=== PATIENT | female | born 1940 | race Caucasian/White ===

== ENCOUNTER 2021-08-27 14:31 | Inpatient (IN) | payer MEDICARE, SELFPAY ==
--- NOTE | ~2021-08-27 | XR_ITS ---
EXAMINATION: XR CHEST CLINICAL INFORMATION: SOB. Follow-up. COMPARISON: Chest 08/27/2021 TECHNIQUE: Frontal view of the chest was obtained. FINDINGS: The lungs are hypoexpanded with patchy ill-defined opacities in left lung and right midlung and right lower lobe likely infiltrates. Heart size and pulmonary vascularity is normal. No gross bony abnormality seen. XR/XR chest 1V IMPRESSION: Likely bilateral patchy airspace disease, stable compared to previous study 08/27/2021.
--- NOTE | ~2021-08-27 | XR_ITS ---
EXAMINATION: XR CHEST CLINICAL INFORMATION: Shortness of breath COMPARISON: None TECHNIQUE: Frontal portable view of the chest was obtained. 5:00 PM FINDINGS: Patchy multifocal bilateral airspace opacities. Nonspecific but suspect inflammatory infectious etiology. Allowing for the low inspiratory effort there does not appear to be significant central pulmonary vascular congestion. No large pleural effusion. No pneumothorax. Neural stimulator probe over the lower thoracic spine. XR/XR chest 1V IMPRESSION: Multifocal patchy bilateral airspace disease.
[2021-08-27 14:38] VITALS: BP 138/45; PULSE 85; RESP 18; TEMP 37.2; O2SAT 95; BMI 42.0
[2021-08-27 16:20] VITALS: BP 147/50; PULSE 84; RESP 16; TEMP 36.8; O2SAT 93
--- NOTE | 2021-08-27 16:41 | ED_ITS ---
HPI - SOB/Dyspnea General Chief Complaint: Dyspnea Stated Complaint: diff breathing Time Seen by Provider: 08/27/21 16:41 Source: patient and family Mode of arrival: ambulatory Limitations: no limitations History of Present Illness HPI Narrative: patient with history of diabetes hypertension COPD end-stage renal disease increase cough and SOB for last few weeks getting worse for last 3 days coughing a lot with purulent phlegm no fever no chills patient denies any chest pain no increased leg swelling already been vaccinated against COVID no other family member sick Related Data Home Medications Medication Instructions Recorded Confirmed Trelegy Ellipta 1 puff INHALATION DAILY 08/27/21 albuterol sulfate 90 mcg/actuation 2 inh INHALATION Q4H PRN 08/27/21 08/27/21 aerosol inhaler allopurinol 300 mg tablet 1 tab PO DAILY 08/27/21 08/27/21 calcipotriene 0.005 % topical 1 appl TOPICAL BID 08/27/21 08/27/21 ointment citalopram 20 mg tablet 1 tab PO DAILY 08/27/21 08/27/21 clopidogrel 75 mg tablet 1 tab PO DAILY 08/27/21 08/27/21 ezetimibe 10 mg tablet 1 tab PO DAILY 08/27/21 08/27/21 furosemide 40 mg tablet 1 tab PO BIDWM 08/27/21 08/27/21 gabapentin 300 mg capsule 900 mg PO BID 08/27/21 08/27/21 ipratropium 0.5 mg-albuterol 3 mg 3 ml INHALATION Q4H PRN 08/27/21 08/27/21 (2.5 mg base)/3 mL nebulization soln levothyroxine 100 mcg tablet 1 tab PO DAILY 08/27/21 08/27/21 losartan 25 mg tablet 1 tab PO DAILY 08/27/21 08/27/21 pantoprazole 40 mg tablet,delayed 1 tab PO DAILY 08/27/21 08/27/21 release pramipexole 0.25 mg tablet 1 tab PO BEDTIME 08/27/21 08/27/21 Allergies Allergy/AdvReac Type Severity Reaction Status Date / Time NSAIDS (Non-Steroidal Allergy Unknown Verified 08/27/21 14:37 Anti-Inflamma Review of Systems Review of Systems: Yes all other systems are reviewed and are negative [facility] Past Medical History Medical History (Updated 08/27/21 @ 20:55 by Jaylon De Jesus MD) COPD (chronic obstructive pulmonary disease) Diabetes Fibromyalgia Heart murmur Kidney failure, acute Social History Social History Alcohol intake: never Patient Tobacco Use Status: Never used Tobacco Use of substances other than those prescribed or required for medical reasons: No Advance Directives: Yes Advance Directives Information Provided: No Advance Directives on File: No Physical Exam Vital Signs: Vital Signs: Last Vital Signs Temp 99.6 F 08/27/21 21:02 Pulse 102 H 08/27/21 21:02 Resp 22 H 08/27/21 21:02 BP 119/44 L 08/27/21 21:02 Pulse Ox 95 08/27/21 21:02 BMI result Body Mass Index 42.0 Appearance: Alert. Oriented X3. No acute distress. Eyes: no pallor/icterus ENT: Pharynx normal. Oral Mucosa moist Neck: Normal inspection. Neck supple. CVS: Normal heart rate and rhythm. Pulses normal. Respiratory: prolong expiration with fine crackes at bases Equal air entry bilateral, Abdomen: Soft and nontender. Bowel sounds are present, no mass palpable, no CVA tenderness Skin: Skin warm and dry. Normal skin color. Normal skin turgor. Extremities: No lower extremity edema. No calf tenderness Neuro: Oriented X 3. No motor deficit. MDM - SOB/Dyspnea MDM Narrative Medical decision making narrative: Patient with chronic bronchitis/COPD ex-smoker comes with cough for last few days with increased shortness of breath chest x-ray showed bilateral infiltrate COVID PCR negative patient WBC counts normal likely atypical pneumonia, patient also have CKD , baseline creatinine level not available. Patient feels sick and lethargic unable to manage at home because of cough will admit patient for IV antibiotics. Lab Data Attestation: I reviewed the patient's lab results. Result diagrams: 08/27/21 17:44 08/27/21 17:44 Labs: Lab Results 08/27/21 08/27/21 08/27/21 Range/Units 17:44 17:44 17:44 WBC 9.8 (4.8-10.8) X10*3/uL RBC 3.48 L (4.20-5.50) X10*6/uL Hgb 11.4 L (12.0-16.0) g/dl Hct 34.9 L (37.0-47.0) % MCV 100.3 H (80.0-98.0) fL MCH 32.8 (27.0-33.0) pg MCHC 32.7 (31.0-35.0) g/dl RDW 15.9 (11.0-16.0) % Plt Count 220 (160-400) X10*3/uL MPV 10.4 (9.4-12.3) fL Immature Gran % (Auto) 0.4 (0.0-0.4) % Neut % (Auto) 60.7 (45-73) % Lymph % (Auto) 29.0 (20-40) % [place] % (Auto) 5.7 (2-11) % Eos % (Auto) 4.0 (0-4) % Baso % (Auto) 0.2 (0-2) % Lymph # (Auto) 2.8 (1.2-4.9) X10*3/uL [place] # (Auto) 0.6 (0.1-1.2) X10*3/uL Eos # (Auto) 0.4 (0.0-0.4) X10*3/uL Baso # (Auto) 0.0 (0.0-0.2) X10*3/uL Abs Immat Gran (auto) 0.04 H (0.00-0.03) X10*3/uL Absolute Neuts (auto) 5.9 (2.0-8.3) x10*3/uL Absolute Nucleated RBC 0.000 (0.0-0.012) X10*3/uL Nucleated RBC % (auto) 0.0 (0.0-0.2) /100WBC PT 12.6 (9.9-13.0) SEC INR 1.1 (0.9-1.1) Sodium 142 (135-145) mmol/L Potassium 3.7 (3.3-5.1) mmol/L Chloride 105 (96-108) mmol/L Carbon Dioxide 26 (22-29) mmol/L Anion Gap 15 (12-20) BUN 23 H (9-16) mg/dL Creatinine 1.77 H (0.5-1.4) mg/dL Estim Creat Clear Calc 27.7 Estimated GFR 27 Random Glucose 97 (60-115) mg/dL Calcium 8.8 (8.4-10.2) mg/dL Total Bilirubin 1.1 H (0.0-1.0) mg/dL AST 14 (5-31) U/L ALT 10 (0-31) U/L Alkaline Phosphatase 121 H (39-117) U/L Troponin I High Sens (<3.5-17.0) ng/L B-Natriuretic Peptide (<100) pg/mL Total Protein 6.3 L (6.5-8.0) g/dL Albumin 3.6 (3.5-5.0) g/dL COVID-19 (ISAAK) (Negative) COVID-19 Clin Com Influenza Type A (PCR) (Negative) Influenza Type B (PCR) (Negative) RSV RNA Qual (PCR) (Negative) SARS-CoV-2 RNA (RT-PCR) (Negative) 08/27/21 08/27/21 08/27/21 Range/Units 17:44 17:45 19:11 WBC (4.8-10.8) X10*3/uL RBC (4.20-5.50) X10*6/uL Hgb (12.0-16.0) g/dl Hct (37.0-47.0) % MCV (80.0-98.0) fL MCH (27.0-33.0) pg MCHC (31.0-35.0) g/dl RDW (11.0-16.0) % Plt Count (160-400) X10*3/uL MPV (9.4-12.3) fL Immature Gran % (Auto) (0.0-0.4) % Neut % (Auto) (45-73) % Lymph % (Auto) (20-40) % [place] % (Auto) (2-11) % Eos % (Auto) (0-4) % Baso % (Auto) (0-2) % Lymph # (Auto) (1.2-4.9) X10*3/uL [place] # (Auto) (0.1-1.2) X10*3/uL Eos # (Auto) (0.0-0.4) X10*3/uL Baso # (Auto) (0.0-0.2) X10*3/uL Abs Immat Gran (auto) (0.00-0.03) X10*3/uL Absolute Neuts (auto) (2.0-8.3) x10*3/uL Absolute Nucleated RBC (0.0-0.012) X10*3/uL Nucleated RBC % (auto) (0.0-0.2) /100WBC PT (9.9-13.0) SEC INR (0.9-1.1) Sodium (135-145) mmol/L Potassium (3.3-5.1) mmol/L Chloride (96-108) mmol/L Carbon Dioxide (22-29) mmol/L Anion Gap (12-20) BUN (9-16) mg/dL Creatinine (0.5-1.4) mg/dL Estim Creat Clear Calc Estimated GFR Random Glucose (60-115) mg/dL Calcium (8.4-10.2) mg/dL Total Bilirubin (0.0-1.0) mg/dL AST (5-31) U/L ALT (0-31) U/L Alkaline Phosphatase (39-117) U/L Troponin I High Sens 13.2 (<3.5-17.0) ng/L B-Natriuretic Peptide 284 H (<100) pg/mL Total Protein (6.5-8.0) g/dL Albumin (3.5-5.0) g/dL COVID-19 (ISAAK) Invalid (Negative) COVID-19 Clin Com See Note Influenza Type A (PCR) NEGATIVE (Negative) Influenza Type B (PCR) NEGATIVE (Negative) RSV RNA Qual (PCR) NEGATIVE (Negative) SARS-CoV-2 RNA (RT-PCR) NEGATIVE (Negative) ECG Data Attestation: I personally reviewed and interpreted this ECG as follows: Interpretation: Sinus rhythm with PACs heart rate 91 beats per minute no acute ST T wave changes no acute ischemia Discharge Plan Discharge Clinical Impression: Community acquired pneumonia, Bronchitis Patient Disposition: Admitted As Inpatient
--- NOTE | 2021-08-27 16:48 | ECG_ITS ---
Test Reason : DYSPNEA Blood Pressure : / mmHG Vent. Rate : 091 BPM Atrial Rate : 091 BPM P-R Int : 188 ms QRS Dur : 076 ms QT Int : 370 ms P-R-T Axes : 036 002 007 degrees QTc Int : 455 ms Sinus rhythm with Premature atrial complexes with Aberrant conduction Inferior infarct , age undetermined Abnormal ECG No previous ECGs available Referred By: Jaylon De Jesus Electronically Signed By:FRANCESCA HARTMANN MD
[2021-08-27] MEDS: Albuterol/Iprat 2.5/0.5MG 3 ML AMPUL.NEB INHALE (17:05)
[2021-08-27 17:07] VITALS: PULSE 81; RESP 16; O2SAT 93
[2021-08-27 17:53] LABS: MANUAL DIFF FLAG NO
[2021-08-27 17:59] LABS: INTERNATIONAL NORM RATIO 1.1 (0.9-1.1); Prothrombin Time 12.6 SEC (9.9-13.0)
[2021-08-27 18:16] LABS: Basophils Percent Auto 0.2 % (0-2); Eosinophils Absolute Auto 0.4 X10*3/uL (0.0-0.4); Hematocrit 34.9 % (37.0-47.0); Hemoglobin 11.4 g/dl (12.0-16.0); Imm Gran Abs Auto 0.04 X10*3/uL (0.00-0.03); Imm Gran Pct Auto 0.4 % (0.0-0.4); Lymphocytes Absolute Auto 2.8 X10*3/uL (1.2-4.9); Mean Corpuscular HGB Conc 32.7 g/dl (31.0-35.0); Mean Corpuscular Hemoglobin 32.8 pg (27.0-33.0); Mean Corpuscular Volume 100.3 fL (80.0-98.0); Mean Platelet Volume 10.4 fL (9.4-12.3); Monocytes Absolute Auto 0.6 X10*3/uL (0.1-1.2); Monocytes Percent Auto 5.7 % (2-11); Neutrophils Absolute Auto 5.9 x10*3/uL (2.0-8.3); Neutrophils Percent Auto 60.7 % (45-73); Platelet Count 220 X10*3/uL (160-400); Red Blood Count 3.48 X10*6/uL (4.20-5.50); Red Cell Distribution Width 15.9 % (11.0-16.0); White Blood Count 9.8 X10*3/uL (4.8-10.8)
[2021-08-27 18:17] LABS: COVID-19 Test Invalid (Negative)
[2021-08-27 18:22] LABS: Alanine Aminotransferase 10 U/L (0-31); Albumin Level 3.6 g/dL (3.5-5.0); Alkaline Phosphatase 121 U/L (39-117); Anion Gap 15 (12-20); Aspartate Amino Transferase 14 U/L (5-31); Bilirubin Total 1.1 mg/dL (0.0-1.0); Blood Urea Nitrogen 23 mg/dL (9-16); Calcium 8.8 mg/dL (8.4-10.2); Carbon Dioxide 26 mmol/L (22-29); Chloride 105 mmol/L (96-108); Creatinine Clr Calc Pharmacy 27.7; Estimated Glomerular Filt Rate 27; Glucose Random 97 mg/dL (60-115); Potassium 3.7 mmol/L (3.3-5.1); Sodium 142 mmol/L (135-145); Total Protein 6.3 g/dL (6.5-8.0)
[2021-08-27 18:28] LABS: B Type Natriuretic Peptide 284 pg/mL (<100); Troponin-I High Sensitivity 13.2 ng/L (<3.5-17.0)
[2021-08-27 19:52] VITALS: BP 146/42; PULSE 92; RESP 20; TEMP 36.8; O2SAT 94
[2021-08-27 19:56] LABS: Influenza A PCR NEGATIVE (Negative); Influenza B PCR NEGATIVE (Negative); Resp Syncy Virus RNA Qual PCR NEGATIVE (Negative); SARS COV2 PCR INHOUSE NEGATIVE (Negative)
[2021-08-27] MEDS: guaiFEN/Codeine SF 200/20/10ML 10 ML LIQUID PO (20:04)
[2021-08-27] MEDS: cefTRIAXone sodium 1 GM in 0.9 % Sodium Chloride 50 ML IV (20:04)
[2021-08-27] MEDS: Albuterol Sulfate (0.083%) 2.5 MG/3 ML VIAL.NEB 5 MG INHALE (20:21)
[2021-08-27 20:23] VITALS: PULSE 85; RESP 20; O2SAT 91
[2021-08-27] MEDS: Furosemide 20 MG/2 ML VIAL IVPUSH (20:31)
--- NOTE | 2021-08-27 20:53 | P.HPHOSP_ITS ---
History of Present Illness Date of Service: 08/27/21 Chief Complaint: SOB 80-year-old female with a past medical history of hypertension, hyperlipidemia, diabetes, COPD, CKD, history of chronic back pain status post spine stimulator; presented to the hospital with a chief complaint of shortness of breath. Patient reported that over the past few days he has been having shortness of breath which has been gradually worsening; for also complains of cough with sputum production. Denies any fevers. Reports she has chronic bronchitis and always has cough but now has increased cough than her baseline. Also complains of severe shortness of breath. Hence presented to the ER for further evaluation. Denies any chest pain or palpitations. Denies any GI symptoms. Review of all other systems is negative except mentioned above ER course: Per ER team patient on presentation noted to be short of breath, coughing; chest x-ray showed multifocal pneumonia; given empiric antibiotics; admitted to the hospital for further management. [facility] Medical History (Updated 08/27/21 @ 20:55 by Jaylon De Jesus MD) COPD (chronic obstructive pulmonary disease) Diabetes Fibromyalgia Heart murmur Kidney failure, acute Pertinent family history: reviewed Mother had CVA Social History Alcohol intake: never Patient Tobacco Use Status: Never used Tobacco Use of substances other than those prescribed or required for medical reasons: No Advance Directives: Yes Advance Directives Information Provided: No Advance Directives on File: No Meds Allergies Allergy/AdvReac Type Severity Reaction Status Date / Time NSAIDS (Non-Steroidal Allergy Unknown Verified 08/27/21 14:37 Anti-Inflamma Active Medications: Current Medications Acetaminophen (Acetaminophen 325 Mg Tablet) 650 mg PO Q6H PRN PRN Reason: Pain, Mild (Pain Scale 1-3) Azithromycin (Azithromycin 500 Mg Tablet) 500 mg PO Q24H INGRID Benzonatate (Benzonatate 100 Mg Capsule) 100 mg PO TID PRN PRN Reason: Cough Guaifenesin/Codeine Phosphate (Guaifen/Codeine Sf 200/20/10ml 10 Ml Liquid) 5 ml PO Q6H PRN PRN Reason: Cough Heparin Sodium (Porcine) (Heparin Sodium,Porcine 5,000 Unit/Ml Vial) 5,000 unit SUBCUT Q8H INGRID Doxycycline Hyclate 100 mg/ (Sodium Chloride) 250 mls @ 166.67 mls/hr IV ONCE ONE Stop: 08/27/21 22:17 Ceftriaxone Sodium 1 gm/ (Sodium Chloride) 50 mls @ 100 mls/hr IV Q24H [facility] Melatonin (Melatonin 3 Mg Tablet) 6 mg PO BEDTIME PRN PRN Reason: Insomnia Senna (Sennosides 8.6 Mg Tablet) 17.2 mg PO BEDTIME PRN PRN Reason: Constipation Sodium Chloride (0.9 % Sodium Chloride Flush 3 Ml Syringe) 3 ml IVFLUSH QSHIFT [facility] Home Medications Medication Instructions Recorded Confirmed Last Taken Type Trelegy Ellipta 1 puff INHALATION DAILY 08/27/21 Unknown History albuterol sulfate 90 mcg/actuation 2 inh INHALATION Q4H PRN 08/27/21 08/27/21 Unknown History aerosol inhaler allopurinol 300 mg tablet 1 tab PO DAILY 08/27/21 08/27/21 08/27/21 History calcipotriene 0.005 % topical 1 appl TOPICAL BID 08/27/21 08/27/21 Unknown History ointment citalopram 20 mg tablet 1 tab PO DAILY 08/27/21 08/27/21 08/27/21 History clopidogrel 75 mg tablet 1 tab PO DAILY 08/27/21 08/27/21 08/27/21 History ezetimibe 10 mg tablet 1 tab PO DAILY 08/27/21 08/27/21 08/27/21 History furosemide 40 mg tablet 1 tab PO BIDWM 08/27/21 08/27/21 08/27/21 History gabapentin 300 mg capsule 900 mg PO BID 08/27/21 08/27/21 08/27/21 History ipratropium 0.5 mg-albuterol 3 mg 3 ml INHALATION Q4H PRN 08/27/21 08/27/21 Unknown History (2.5 mg base)/3 mL nebulization soln levothyroxine 100 mcg tablet 1 tab PO DAILY 08/27/21 08/27/21 08/27/21 History losartan 25 mg tablet 1 tab PO DAILY 08/27/21 08/27/21 08/27/21 History pantoprazole 40 mg tablet,delayed 1 tab PO DAILY 08/27/21 08/27/21 08/27/21 History release pramipexole 0.25 mg tablet 1 tab PO BEDTIME 08/27/21 08/27/21 08/24/21 History Physical Exam Vital Signs and Narrative: Vital Signs: Last Vital Signs Temp 98.3 F 08/27/21 19:52 Pulse 85 08/27/21 20:23 Resp 20 08/27/21 20:23 BP 146/42 H 08/27/21 19:52 Pulse Ox 94 08/27/21 19:52 BMI result Body Mass Index 42.0 Gen: Appears be in no acute distress. On supplemental oxygen. Speaks in full sentences HEENT: NCAT, Moist mucosa. Pulmonary: Coarse breath sounds CVS: Normal S1-S2 Abdomen: BS+, Soft, Nontender Extremities: Warm well perfused Neuro: Alert and awake. Results Labs CBC and Chem 7: 08/27/21 17:44 08/27/21 17:44 Labs: Laboratory Results - last 24 hr 08/27/21 08/27/21 08/27/21 17:44 17:44 17:44 MCV 100.3 H MCH 32.8 MCHC 32.7 RDW 15.9 Plt Count 220 MPV 10.4 Immature Gran % (Auto) 0.4 Neut % (Auto) 60.7 Lymph % (Auto) 29.0 [place] % (Auto) 5.7 Eos % (Auto) 4.0 Baso % (Auto) 0.2 Lymph # (Auto) 2.8 [place] # (Auto) 0.6 Eos # (Auto) 0.4 Baso # (Auto) 0.0 Abs Immat Gran (auto) 0.04 H Absolute Neuts (auto) 5.9 Absolute Nucleated RBC 0.000 Nucleated RBC % (auto) 0.0 PT 12.6 INR 1.1 Anion Gap 15 Estim Creat Clear Calc 27.7 Estimated GFR 27 Random Glucose 97 Calcium 8.8 Total Bilirubin 1.1 H AST 14 ALT 10 Alkaline Phosphatase 121 H B-Natriuretic Peptide Total Protein 6.3 L Albumin 3.6 COVID-19 (ISAAK) COVID-19 Clin Com Influenza Type A (PCR) Influenza Type B (PCR) RSV RNA Qual (PCR) SARS-CoV-2 RNA (RT-PCR) 08/27/21 08/27/21 08/27/21 17:44 17:45 19:11 MCV MCH MCHC RDW Plt Count MPV Immature Gran % (Auto) Neut % (Auto) Lymph % (Auto) [place] % (Auto) Eos % (Auto) Baso % (Auto) Lymph # (Auto) [place] # (Auto) Eos # (Auto) Baso # (Auto) Abs Immat Gran (auto) Absolute Neuts (auto) Absolute Nucleated RBC Nucleated RBC % (auto) PT INR Anion Gap Estim Creat Clear Calc Estimated GFR Random Glucose Calcium Total Bilirubin AST ALT Alkaline Phosphatase B-Natriuretic Peptide 284 H Total Protein Albumin COVID-19 (ISAAK) Invalid COVID-19 Clin Com See Note Influenza Type A (PCR) NEGATIVE Influenza Type B (PCR) NEGATIVE RSV RNA Qual (PCR) NEGATIVE SARS-CoV-2 RNA (RT-PCR) NEGATIVE Imaging Radiologist's Impressions: Impressions Chest X-Ray 08/27/21 17:03 IMPRESSION: Multifocal patchy bilateral airspace disease. Assessment and Plan Plan 80-year-old female with a past medical history of hypertension, hyperlipidemia, diabetes, COPD, CKD, history of chronic back pain status post spine stimulator; presented to the hospital with a chief complaint of shortness of breath/cough with sputum production. Noted to have pneumonia on the chest x-ray. Admitted for further management. Multifocal Pneumonia: Continue ceftriaxone and azithromycin. Id consult COVID-19 negative Cough suppressants COPD: DuoNebs p.r.n. History of CKD: Unknown baseline creatinine. Creatinine on presentation is 1.7. Avoid nephrotoxins. history of hypothyroidism: Continue home levothyroxine History of neuropathy: Continue home gabapentin History of diabetes: Insulin sliding scale DVT prophylaxis: Subcu heparin Code status: Full code Quality Stroke Does the patient have a stroke diagnosis?: No VTE Prior VTE?: No VTE Risk Level:: Medical - moderate - high VTE Device Contraindication: Treatment Not Indicated VTE Drug Contraindication: N/A - Med Ordered
[2021-08-27 21:02] VITALS: BP 119/44; PULSE 102; RESP 22; TEMP 37.6; O2SAT 95
[2021-08-27] MEDS: Acetaminophen 325 MG TABLET 650 MG PO (21:17)
[2021-08-27] MEDS: Doxycycline Hyclate 100 MG in 0.9 % Sodium Chloride 250 ML 166.67 MG IV (21:17)
[2021-08-27] MEDS: Azithromycin 500 MG TABLET PO (21:17)
--- NOTE | 2021-08-27 21:28 | PC.NURSE ---
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
--- NOTE | 2021-08-27 21:46 | PHA.MEDREC ---
Pharmacy Consult ? Medication Reconciliation Pharmacy has completed the medication reconciliation.Pt says she takes trelegy but unsure of strength will try to bring infrom home
[2021-08-28] VITALS: BP 126/54; PULSE 94; RESP 20; O2SAT 96
[2021-08-28] MEDS: 0.9 % Sodium Chloride Flush 3 ML SYRINGE IVFLUSH ×3 (00:01→20:46)
[2021-08-28] MEDS: Melatonin 3 MG TABLET 6 MG PO ×2 (00:07→20:44)
[2021-08-28] MEDS: guaiFEN/Codeine SF 200/20/10ML 10 ML LIQUID 5 ML PO ×3 (04:33→20:43)
[2021-08-28] MEDS: Heparin Sodium,Porcine 5,000 UNIT/ML VIAL 5000 UNIT SUBCUT (04:33)
[2021-08-28 06:24] LABS: MANUAL DIFF FLAG NO
[2021-08-28] MEDS: Omeprazole 20 MG CAPSULE.DR PO (06:28)
[2021-08-28] MEDS: Levothyroxine Sodium 100 MCG TABLET PO (06:28)
[2021-08-28 06:34] LABS: Basophils Percent Auto 0.3 % (0-2); Eosinophils Absolute Auto 0.4 X10*3/uL (0.0-0.4); Eosinophils Percent Auto 5.6 % (0-4); Hematocrit 31.7 % (37.0-47.0); Hemoglobin 10.2 g/dl (12.0-16.0); Imm Gran Abs Auto 0.03 X10*3/uL (0.00-0.03); Imm Gran Pct Auto 0.4 % (0.0-0.4); Lymphocytes Absolute Auto 1.2 X10*3/uL (1.2-4.9); Lymphocytes Percent Auto 16.9 % (20-40); Mean Corpuscular HGB Conc 32.2 g/dl (31.0-35.0); Mean Corpuscular Hemoglobin 32.5 pg (27.0-33.0); Mean Platelet Volume 10.5 fL (9.4-12.3); Monocytes Absolute Auto 0.6 X10*3/uL (0.1-1.2); Monocytes Percent Auto 8.9 % (2-11); Neutrophils Absolute Auto 4.9 x10*3/uL (2.0-8.3); Neutrophils Percent Auto 67.9 % (45-73); Platelet Count 193 X10*3/uL (160-400); Red Blood Count 3.14 X10*6/uL (4.20-5.50); Red Cell Distribution Width 15.9 % (11.0-16.0); White Blood Count 7.2 X10*3/uL (4.8-10.8)
[2021-08-28 07:00] LABS: Anion Gap 13 (12-20); Blood Urea Nitrogen 22 mg/dL (9-16); Calcium 8.5 mg/dL (8.4-10.2); Carbon Dioxide 25 mmol/L (22-29); Chloride 107 mmol/L (96-108); Creatinine Clr Calc Pharmacy 25.8; Estimated Glomerular Filt Rate 25; Glucose Random 117 mg/dL (60-115); Potassium 3.8 mmol/L (3.3-5.1); Sodium 141 mmol/L (135-145)
[2021-08-28 07:26] LABS: Glucose, Whole Blood 117 mg/dL (60-115)
[2021-08-28 08:28] VITALS: BP 107/44; PULSE 72; RESP 16; TEMP 37.1; O2SAT 94
[2021-08-28] MEDS: Gabapentin 300 MG CAPSULE 900 MG PO ×2 (08:56→20:44)
[2021-08-28] MEDS: Furosemide 40 MG TABLET PO ×2 (08:56→18:51)
[2021-08-28] MEDS: Escitalopram Oxalate 10 MG TABLET PO (08:56)
[2021-08-28] MEDS: Clopidogrel Bisulfate 75 MG TABLET PO (08:57)
[2021-08-28] MEDS: allopurinoL 300 MG TABLET PO (08:57)
[2021-08-28] MEDS: Benzonatate 100 MG CAPSULE PO (08:57)
[2021-08-28] MEDS: Ezetimibe 10 MG TABLET PO (08:57)
--- NOTE | 2021-08-28 11:05 | PC.NURSE ---
Pt A&Ox4, Lungs with course rhonchi through, +cough, non productive at this time, but provided with bag in case it becomes productive. Pt has dry skin, small area below L knee bleeding from pt scratching, cleaned and no longer bleeding. Pt on 2L NC, sat's WNL. Plan for urine sample to test for legionella, full respiratory panel and will continue to monitor. Call barros within reach.
[2021-08-28] MEDS: Moxifloxacin HCl 0.5 % Oph Sol 3 ML DRPBTL 1 DROP EYE-BOTH ×3 (12:06→20:46)
--- NOTE | 2021-08-28 13:00 | CA_ITS ---
Transthoracic Echocardiogram Patient (Last, First, Middle): Ludy Atkins, Gender: Female Date of : 1940 Age: 80 Procedure Date: 08/28/2021 Procedure Type: Transthoracic Echocardiogram Location[place] [facility] [place] Height: 157.48 cm Weight: 104.33 kg BSA: 2.03 m2 Heart Rate: bpm BP: 107 / 44 mmHg Nut Dehydrator Operator: Referring MD: Evgeny Scott MD Customer Logistics Manager: Srinivasa Jordan MD Symptoms: chf Study Quality: Good ECG Rhythm: Sinus Conclusions: - 1. Normal LV systolic function with mild LVH with impaired relaxation filling pattern 2. Normal cardiac valvular Doppler 3. Normal RV systolic pressure 4. No gross pericardial effusion Findings Left Ventricle Normal left ventricular size and systolic function. There is mildly increased left ventricular wall thickness. The visually estimated ejection fraction is between 65-70%. Spectral Doppler is indicative of an impaired relaxation filling pattern. E/E prime ratio is between 8 and 15 consistent with indeterminate filling pressures. Right Ventricle Normal right ventricular cavity size and systolic function. Atria The left atrium is likely dilated. There is lipomatous hypertrophy of the interatrial septum. There is no evidence of interatrial shunt. The right atrium is normal in size. Aortic Valve The aortic valve was not well visualized. There is no aortic valve stenosis. There is no aortic valve regurgitation. Mitral Valve There is mild anterior and posterior mitral leaflet thickening. There is mild mitral annular calcification. There is trace mitral valve regurgitation. There is no mitral valve stenosis. Pulmonic Valve The pulmonic valve was not well visualized. Tricuspid Valve The tricuspid valve was not well visualized. There is mild tricuspid valve regurgitation. The right ventricular systolic pressure is normal. There is no evidence of pulmonary hypertension. Great Vessels All visible segments of the aorta are normal in size. The pulmonary artery was not well visualized. Venous The inferior vena cava is normal in size and collapses greater than 50% with inspiration. Pericardium/Pleural There is no evidence of pericardial effusion. Prior Study Comparison No prior study available for comparison. Measurements 2D Linear Measurements IVSd: 1.38 0.6-0.9/0.6-1.0 cm LVIDd: 3.91 3.9-5.3/4.2-5.9 cm LVIDd Index: 1.93 2.4-3.2/2.2-3.1 cm/m2 LVIDs: 2.45 2.0-3.6 cm LVPWd: 1.34 0.7-1.1 cm Ao Root: 3.00 2.1-3.5 cm LA Diam: 3.60 2.7-3.8/3.0-4.0 cm LAIDs Index: 1.77 1.5-2.3 cm/m2 LV Mass: 240.92 67-162/88-224 g LV Mass Index: 118.68 43-95/49-115 g/m2 LVOT Diam: 2.10 3.0+(-)1.3 cm Mitral Valve MV Pk E: 0.80 MV PK A: 1.17 MV Decel Time: 262.00 E/A: 0.70 E'Lateral: 5.77 E'Medial: 5.77 E/E' Med: 13.80 E/E' Lat: 13.80 PHT: 77.00 MVA PHT: 2.86 Decel [place]: 3.04 Aortic Valve AoV Pk Reji: 2.06 AoV Mn Reji: 1.31 AoV VTI: 0.48 AoV Pk Grad: 17.00 Aov Mn Grad: 8.00 JACQUES Cont.VTI: 2.26 LVOT LVOT Pk Reji: 1.18 LVOT Mn Reji: 0.87 LVOT VTI: 0.32 LVOT Pk Grad: 6.00 LVOT Mn Grad: 3.00 LVOT Diam: 2.10 LVOT Area: 3.46 Diastolic Function MV Pk E: 0.80 MV Pk A: 1.17 E/A: 0.70 E'Medial: 5.77 E/E' Med: 13.80 E' Laterial: 5.77 E/E' Lat: 13.80 Tricuspid Valve TR Pk Reji: 1.68 TR Pk Grad: 11.00 RA Press: 3.00 RVSP: 14.00 Great Vessels Aorta Ao Root-2D: 3.00 2.0-3.7 cm Ao Asc: 3.10 2.1-3.4 cm Pulmonary Valve PV Pk Reji: 1.22 Peak PV Grad: 6.00 Updated in Other Vendor System with Status of Final Srinivasa Jordan MD electronically signed on 08/28/2021 3:56:40 PM with status of Final
--- NOTE | 2021-08-28 13:44 | P.PNIM_ITS ---
Subjective Subjective Date of Service: 08/28/21 Interval History: cc; sob interval hsitory: unchanged Cardiovascular Cardiovascular: Reports no additional cardiovascular complaints Gastrointestinal Gastrointestinal: Reports no additional gastrointestinal complaints Physical Exam Vital Signs: Vital Signs: Last Vital Signs Temp 98.7 F 08/28/21 08:28 Pulse 72 08/28/21 08:28 Resp 16 08/28/21 08:28 BP 107/44 L 08/28/21 08:28 Pulse Ox 94 08/28/21 08:28 BMI result Body Mass Index 42.0 General: AO X 3, no acute distress Resp: crackles bilateral, no accessory muscles used CVS: S1,S2,RRR GI: soft, non tender, non distended Neuro: motor grossly intact, alert Psych: appropriate affect, appropriate insight Objective Data Active Medications Acetaminophen (Acetaminophen 325 Mg Tablet) 650 mg PO Q6H PRN PRN Reason: Pain, Mild (Pain Scale 1-3) Last Admin: 08/27/21 21:17 Dose: 650 mg Documented by: ROMAN Albuterol Sulfate (Albuterol Sulfate 90 Mcg 8 Gm Inhaler) 2 puff INHALE Q4H PRN PRN Reason: Shortness Of Breath Albuterol/Ipratropium (Albuterol/Iprat 2.5/0.5mg 3 Ml Ampul.Neb) 3 ml INHALE RQ4H PRN PRN Reason: Shortness of Breath/Wheezing Allopurinol (Allopurinol 300 Mg Tablet) 300 mg PO DAILY [facility] Last Admin: 08/28/21 08:57 Dose: 300 mg Documented by: MERCEDES Azithromycin (Azithromycin 500 Mg Tablet) 500 mg PO Q24H [facility] Last Admin: 08/27/21 21:17 Dose: 500 mg Documented by: ROMAN Benzonatate (Benzonatate 100 Mg Capsule) 100 mg PO TID PRN PRN Reason: Cough Last Admin: 08/28/21 08:57 Dose: 100 mg Documented by: MERCEDES Clopidogrel Bisulfate (Clopidogrel Bisulfate 75 Mg Tablet) 75 mg PO DAILY [facility] Last Admin: 08/28/21 08:57 Dose: 75 mg Documented by: MERCEDES Dextrose (Dextrose 50 % 25 Gm/50 Ml Syringe) 25 gm IVPUSH Q15M PRN; Protocol PRN Reason: per Hypoglycemia Standing Ord. Ezetimibe (Ezetimibe 10 Mg Tablet) 10 mg PO DAILY [facility] Last Admin: 08/28/21 08:57 Dose: 10 mg Documented by: MERCEDES Escitalopram Oxalate (Escitalopram Oxalate 10 Mg Tablet) 10 mg PO DAILY [facility] Last Admin: 08/28/21 08:56 Dose: 10 mg Documented by: MERCEDES Furosemide (Furosemide 40 Mg Tablet) 40 mg PO BIDWM [facility]; Protocol Last Admin: 08/28/21 08:56 Dose: 40 mg Documented by: MERCEDES Gabapentin (Gabapentin 300 Mg Capsule) 900 mg PO BID [facility] Last Admin: 08/28/21 08:56 Dose: 900 mg Documented by: MERCEDES Glucose (Glucose Gel 15 Gm Gel..Gram.) 15 gm PO Q15M PRN; Protocol PRN Reason: per Hypoglycemia Standing Ord. Guaifenesin/Codeine Phosphate (Guaifen/Codeine Sf 200/20/10ml 10 Ml Liquid) 5 ml PO Q6H PRN PRN Reason: Cough Last Admin: 08/28/21 10:56 Dose: 5 ml Documented by: MERCEDES Heparin Sodium (Porcine) (Heparin Sodium,Porcine 5,000 Unit/Ml Vial) 5,000 unit SUBCUT Q8H [facility] Last Admin: 08/28/21 04:33 Dose: 5,000 unit Documented by: KEERTHI Ceftriaxone Sodium 1 gm/ (Sodium Chloride) 50 mls @ 100 mls/hr IV Q24H [facility] Insulin Human Lispro (Insulin Lispro 100 Unit/Ml 3 Ml Vial) 0 unit SUBCUT QIDACHS [facility]; Protocol Last Admin: 08/28/21 08:58 Dose: Not Given Documented by: MERCEDES Non-Admin Reason: No Insulin Coverage Levothyroxine Sodium (Levothyroxine Sodium 100 Mcg Tablet) 100 mcg PO DAILY@0600 [facility] Last Admin: 08/28/21 06:28 Dose: 100 mcg Documented by: KEERTHI Losartan Potassium (Losartan Potassium 25 Mg Tablet) 25 mg PO DAILY [facility]; Protocol Last Admin: 08/28/21 09:43 Dose: Not Given Documented by: MERCEDES Non-Admin Reason: Decreased Blood Pressure Melatonin (Melatonin 3 Mg Tablet) 6 mg PO BEDTIME PRN PRN Reason: Insomnia Last Admin: 08/28/21 00:07 Dose: 6 mg Documented by: KEERTHI Moxifloxacin HCl (Moxifloxacin Hcl 0.5 % Oph Nishi 3 Ml Drpbtl) 1 drop EYE-BOTH TID [facility] Stop: 09/04/21 10:27 Last Admin: 08/28/21 12:06 Dose: 1 drop Documented by: MERCEDES Omeprazole (Omeprazole 20 Mg Capsule.Dr) 20 mg PO DAILY@0630 [facility] Last Admin: 08/28/21 06:28 Dose: 20 mg Documented by: KEERHTI Pramipexole Dihydrochloride (Pramipexole Di-Hcl 0.25 Mg Tablet) 0.25 mg PO BEDTIME [facility] Senna (Sennosides 8.6 Mg Tablet) 17.2 mg PO BEDTIME PRN PRN Reason: Constipation Sodium Chloride (0.9 % Sodium Chloride Flush 3 Ml Syringe) 3 ml IVFLUSH QSHIFT [facility] Last Admin: 08/28/21 08:57 Dose: 3 ml Documented by: MERCEDES Labs CBC & Chem 7: 08/28/21 06:06 08/28/21 06:06 Labs: Laboratory Results - last 24 hr 08/27/21 08/27/21 08/27/21 17:44 17:44 17:44 MCV 100.3 H MCH 32.8 MCHC 32.7 RDW 15.9 Plt Count 220 MPV 10.4 Immature Gran % (Auto) 0.4 Neut % (Auto) 60.7 Lymph % (Auto) 29.0 Stanton % (Auto) 5.7 Eos % (Auto) 4.0 Baso % (Auto) 0.2 Lymph # (Auto) 2.8 Stanton # (Auto) 0.6 Eos # (Auto) 0.4 Baso # (Auto) 0.0 Abs Immat Gran (auto) 0.04 H Absolute Neuts (auto) 5.9 Absolute Nucleated RBC 0.000 Nucleated RBC % (auto) 0.0 PT 12.6 INR 1.1 Anion Gap 15 Estim Creat Clear Calc 27.7 Estimated GFR 27 POC Glucose Random Glucose 97 Calcium 8.8 Total Bilirubin 1.1 H AST 14 ALT 10 Alkaline Phosphatase 121 H B-Natriuretic Peptide Total Protein 6.3 L Albumin 3.6 COVID-19 ([facility]) COVID-19 Clin Com Influenza Type A (PCR) Influenza Type B (PCR) RSV RNA Qual (PCR) SARS-CoV-2 RNA (RT-PCR) 08/27/21 08/27/21 08/27/21 17:44 17:45 19:11 MCV MCH MCHC RDW Plt Count MPV Immature Gran % (Auto) Neut % (Auto) Lymph % (Auto) Stanton % (Auto) Eos % (Auto) Baso % (Auto) Lymph # (Auto) Stanton # (Auto) Eos # (Auto) Baso # (Auto) Abs Immat Gran (auto) Absolute Neuts (auto) Absolute Nucleated RBC Nucleated RBC % (auto) PT INR Anion Gap Estim Creat Clear Calc Estimated GFR POC Glucose Random Glucose Calcium Total Bilirubin AST ALT Alkaline Phosphatase B-Natriuretic Peptide 284 H Total Protein Albumin COVID-19 (ISAAK) Invalid COVID-19 Clin Com See Note Influenza Type A (PCR) NEGATIVE Influenza Type B (PCR) NEGATIVE RSV RNA Qual (PCR) NEGATIVE SARS-CoV-2 RNA (RT-PCR) NEGATIVE 08/28/21 08/28/21 08/28/21 06:06 06:06 07:23 MCV 101.0 H MCH 32.5 MCHC 32.2 RDW 15.9 Plt Count 193 MPV 10.5 Immature Gran % (Auto) 0.4 Neut % (Auto) 67.9 Lymph % (Auto) 16.9 L Stanton % (Auto) 8.9 Eos % (Auto) 5.6 H Baso % (Auto) 0.3 Lymph # (Auto) 1.2 Stanton # (Auto) 0.6 Eos # (Auto) 0.4 Baso # (Auto) 0.0 Abs Immat Gran (auto) 0.03 Absolute Neuts (auto) 4.9 Absolute Nucleated RBC 0.000 Nucleated RBC % (auto) 0.0 PT INR Anion Gap 13 Estim Creat Clear Calc 25.8 Estimated GFR 25 POC Glucose 117 H Random Glucose 117 H Calcium 8.5 Total Bilirubin AST ALT Alkaline Phosphatase B-Natriuretic Peptide Total Protein Albumin COVID-19 ([facility]AA[facility]) COVID-19 Clin Com Influenza Type A (PCR) Influenza Type B (PCR) RSV RNA Qual (PCR) SARS-CoV-2 RNA (RT-PCR) Assessment and Plan (1) Community acquired pneumonia: Status: Acute Plan 80-year-old female with a past medical history of hypertension, hyperlipidemia, diabetes, COPD, CKDIV, history of chronic back pain status post spine stimulator; presented to the hospital with a chief complaint of shortness of breath/cough with sputum production.? Noted to have bilateral opacities on the chest x-ray.? Admitted for further management.? sob, bilateral opacities on cxr also complained of purulent discharge from both eyes, diarrhea ?viral or atypical bacterial pneumonia check resp viral panel, urine leginella Continue ceftriaxone and azithromycin.? 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 Subcu heparin Code status: Full code Quality Stroke Does the patient have a stroke diagnosis?: No VTE Prior VTE?: No VTE Risk Level:: Medical - moderate - high VTE Device Contraindication: Treatment Not Indicated VTE Drug Contraindication: N/A - Med Ordered
[2021-08-28 14:13] LABS: Glucose, Whole Blood 103 mg/dL (60-115)
--- NOTE | 2021-08-28 14:58 | MHC.CM.PN ---
Attempted to meet with patient in regards to discharge planning. Patient currently having echo done. Spoke with patient's daughter, Evie via telephone at [phone]. Patient moved from [place] a couple of months ago. Patient was living with her son. On 08/27, patient moved in with daughter. Patient tends to use the furniture to walk through the home. No services prior to coming to the hospital. PCP verified. Evie believes the patient has a HCP at PCP's office. T/W is awaiting a return telephone call from PCP's office to verify this. IMM explained and left at patient's bedside per Evie's request. Evie feels patient will benefit from care home at discharge and referral has been made to [facility]. Evie will tranpsort patient home when medically stable. Patient received 3 Covid vaccines but Evie doesn't remember which brand. Continue to monitor for d/c needs.
[2021-08-28 15:16] LABS: Adenovirus PCR Not Detected (Not Detect.); Bordetella parapertussis PCR Not Detected (Not Detect.); Bordetella pertussis PCR Not Detected (Not Detect.); Chlamydia pneumoniae PCR Not Detected (Not Detect.); Coronavirus 229E PCR Not Detected (Not Detect.); Coronavirus HKU1 PCR Not Detected (Not Detect.); Coronavirus NL63 PCR Not Detected (Not Detect.); Coronavirus OC43 PCR Not Detected (Not Detect.); Human metapneumovirus PCR Not Detected (Not Detect.); Influenza A PCR Not Detected (Not Detect.); Influenza B PCR Not Detected (Not Detect.); Mycoplasma pneumoniae PCR Not Detected (Not Detect.); Parainfluenza 1 PCR Not Detected (Not Detect.); Parainfluenza 2 PCR Not Detected (Not Detect.); Parainfluenza 3 PCR Not Detected (Not Detect.); Parainfluenza 4 PCR Not Detected (Not Detect.); RSV PCR Not Detected (Not Detect.); Rhino/Enterovirus PCR Not Detected (Not Detect.); SARS-CoV-2 PCR Not Detected (Not Detect.)
[2021-08-28 16:11] VITALS: BP 99/52; PULSE 85; RESP 16; TEMP 36.8; O2SAT 98
--- NOTE | 2021-08-28 16:31 | P.CNID_ITS ---
History of Present Illness Data of Consult Service Date: 08/28/21 Requesting physician: Evgeny Scott Primary Care Provider: Randy Hernandez MD HPI Reason for consult: shortness of breath She presents with three weeks cough and shortness of breath,worse over last week. She has no fever or chills but productive sputum She has no COVID Review of Systems Review of Systems: Yes all other systems are reviewed and are negative PMFSH Past Medical History Medical History Acquired hypothyroidism COPD (chronic obstructive pulmonary disease) Diabetes Dyslipidemia Fibromyalgia Heart murmur Kidney failure, acute Osteoarthritis of multiple joints Family History Family History Brother Substance use disorder Son Substance use disorder Daughter Substance use disorder Family history: reviewed and not pertinent Surgical History Surgical History H/O hemorrhoidectomy Hx of fusion of cervical spine Hx of tonsillectomy S/P anal fissurectomy S/P appendectomy S/P partial hysterectomy Social History Social History Household Members: Children Housing: House Do you presently have visiting nurse or other home services: No Alcohol intake: never Patient Tobacco Use Status: Former Tobacco user Quit Date: 15 years ago Tobacco use type: Cigarette Cigarettes Per Day: 5 e-Cigarette/Vaping Use: Never Used Second Hand Smoke Exposure: No Advance Directives Date on File: 08/28/21 service: No Current occupational status: retired Meds Allergies Allergy/AdvReac Type Severity Reaction Status Date / Time NSAIDS (Non-Steroidal Allergy Unknown Verified 09/17/21 11:11 Anti-Inflamma Active Medications: Current Medications Acetaminophen (Acetaminophen 325 Mg Tablet) 650 mg PO Q6H PRN PRN Reason: Pain, Mild (Pain Scale 1-3) Last Admin: 08/27/21 21:17 Dose: 650 mg Documented by: Albuterol Sulfate (Albuterol Sulfate 90 Mcg 8 Gm Inhaler) 2 puff INHALE Q4H PRN PRN Reason: Shortness Of Breath Albuterol/Ipratropium (Albuterol/Iprat 2.5/0.5mg 3 Ml Ampul.Neb) 3 ml INHALE RQ4H PRN PRN Reason: Shortness of Breath/Wheezing Allopurinol (Allopurinol 300 Mg Tablet) 300 mg PO DAILY [facility] Last Admin: 08/28/21 08:57 Dose: 300 mg Documented by: Azithromycin (Azithromycin 500 Mg Tablet) 500 mg PO Q24H [facility] Last Admin: 08/27/21 21:17 Dose: 500 mg Documented by: Benzonatate (Benzonatate 100 Mg Capsule) 100 mg PO TID PRN PRN Reason: Cough Last Admin: 08/28/21 08:57 Dose: 100 mg Documented by: Clopidogrel Bisulfate (Clopidogrel Bisulfate 75 Mg Tablet) 75 mg PO DAILY [facility] Last Admin: 08/28/21 08:57 Dose: 75 mg Documented by: Dextrose (Dextrose 50 % 25 Gm/50 Ml Syringe) 25 gm IVPUSH Q15M PRN; Protocol PRN Reason: per Hypoglycemia Standing Ord. Ezetimibe (Ezetimibe 10 Mg Tablet) 10 mg PO DAILY [facility] Last Admin: 08/28/21 08:57 Dose: 10 mg Documented by: Escitalopram Oxalate (Escitalopram Oxalate 10 Mg Tablet) 10 mg PO DAILY [facility] Last Admin: 08/28/21 08:56 Dose: 10 mg Documented by: Furosemide (Furosemide 40 Mg Tablet) 40 mg PO BIDWM [facility]; Protocol Last Admin: 08/28/21 08:56 Dose: 40 mg Documented by: Gabapentin (Gabapentin 300 Mg Capsule) 900 mg PO BID [facility] Last Admin: 08/28/21 08:56 Dose: 900 mg Documented by: Glucose (Glucose Gel 15 Gm Gel..Gram.) 15 gm PO Q15M PRN; Protocol PRN Reason: per Hypoglycemia Standing Ord. Guaifenesin/Codeine Phosphate (Guaifen/Codeine Sf 200/20/10ml 10 Ml Liquid) 5 ml PO Q6H PRN PRN Reason: Cough Last Admin: 08/28/21 10:56 Dose: 5 ml Documented by: Heparin Sodium (Porcine) (Heparin Sodium,Porcine 5,000 Unit/Ml Vial) 5,000 unit SUBCUT Q8H [facility] Last Admin: 08/28/21 14:06 Dose: Not Given Documented by: Ceftriaxone Sodium 1 gm/ (Sodium Chloride) 50 mls @ 100 mls/hr IV Q24H [facility] Insulin Human Lispro (Insulin Lispro 100 Unit/Ml 3 Ml Vial) 0 unit SUBCUT QIDACHS [facility]; Protocol Last Admin: 08/28/21 14:37 Dose: Not Given Documented by: Levothyroxine Sodium (Levothyroxine Sodium 100 Mcg Tablet) 100 mcg PO DAILY@0600 [facility] Last Admin: 08/28/21 06:28 Dose: 100 mcg Documented by: Losartan Potassium (Losartan Potassium 25 Mg Tablet) 25 mg PO DAILY [facility]; Protocol Last Admin: 08/28/21 09:43 Dose: Not Given Documented by: Melatonin (Melatonin 3 Mg Tablet) 6 mg PO BEDTIME PRN PRN Reason: Insomnia Last Admin: 08/28/21 00:07 Dose: 6 mg Documented by: Moxifloxacin HCl (Moxifloxacin Hcl 0.5 % Oph Nishi 3 Ml Drpbtl) 1 drop EYE-BOTH TID [facility] Stop: 09/04/21 10:27 Last Admin: 08/28/21 15:59 Dose: 1 drop Documented by: Omeprazole (Omeprazole 20 Mg Capsule.Dr) 20 mg PO DAILY@0630 [facility] Last Admin: 08/28/21 06:28 Dose: 20 mg Documented by: Pramipexole Dihydrochloride (Pramipexole Di-Hcl 0.25 Mg Tablet) 0.25 mg PO BED TIME [facility] Senna (Sennosides 8.6 Mg Tablet) 17.2 mg PO BEDTIME PRN PRN Reason: Constipation Sodium Chloride (0.9 % Sodium Chloride Flush 3 Ml Syringe) 3 ml IVFLUSH QSHIFT [facility] Last Admin: 08/28/21 15:59 Dose: Not Given Documented by: Home Medications Medication Instructions Recorded Confirmed Last Taken Type Trelegy Ellipta 1 puff INHALATION DAILY 08/27/21 09/21/21 Unknown History albuterol sulfate 90 mcg/actuation 2 inh INHALATION Q4H PRN 08/27/21 09/21/21 Unknown History aerosol inhaler allopurinol 300 mg tablet 1 tab PO DAILY 08/27/21 09/21/21 08/27/21 History calcipotriene 0.005 % topical 1 appl TOPICAL BID 08/27/21 09/21/21 Unknown History ointment ezetimibe 10 mg tablet 1 tab PO DAILY 08/27/21 09/21/21 08/27/21 History furosemide 40 mg tablet 1 tab PO BIDWM 08/27/21 09/21/21 08/27/21 History ipratropium 0.5 mg-albuterol 3 mg 3 ml INHALATION Q4H PRN 08/27/21 09/21/21 Unknown History (2.5 mg base)/3 mL nebulization soln levothyroxine 100 mcg tablet 1 tab PO DAILY 08/27/21 09/21/21 08/27/21 History pantoprazole 40 mg tablet,delayed 1 tab PO DAILY 08/27/21 09/21/21 08/27/21 History release pramipexole 0.25 mg tablet 1 tab PO BEDTIME 08/27/21 09/21/21 08/24/21 History citalopram 20 mg tablet 40 mg PO DAILY tab 09/13/21 09/21/21 Unknown History gabapentin 300 mg capsule 600 mg PO Q8H cap 09/13/21 09/21/21 Unknown History Physical Exam Vital Signs: Vital Signs: Last Vital Signs Temp 98.2 F 08/28/21 16:11 Pulse 85 08/28/21 16:11 Resp 16 08/28/21 16:11 BP 99/52 L 08/28/21 16:11 Pulse Ox 98 08/28/21 16:11 BMI result Body Mass Index 42.0 Const: General: cooperative Eyes: General: appearance normal, both eyes and all related structures Pupils: Equal, round and reactive pupils present Resp: Effort & Inspection: decreased respiratory effort Cardio: Rate: regular rate Rhythm: regular rhythm GI: Palpation (GI): Soft to palpation and nontender Neuro: Cranial nerves: Yes Equal, round and reactive pupils present Extrem: General: Yes normal to inspection Results Labs CBC & Chem 7: 09/03/21 05:59 09/03/21 05:59 Labs: Short CBC 08/27/21 08/28/21 Range/Units 17:44 06:06 WBC 9.8 7.2 (4.8-10.8) X10*3/uL Hgb 11.4 L 10.2 L (12.0-16.0) g/dl Hct 34.9 L 31.7 L (37.0-47.0) % Plt Count 220 193 (160-400) X10*3/uL BMP 08/27/21 08/28/21 17:44 06:06 Sodium 142 141 Potassium 3.7 3.8 Chloride 105 107 Carbon Dioxide 26 25 BUN 23 H 22 H Creatinine 1.77 H 1.90 H Calcium 8.8 8.5 Liver Function 08/27/21 Range/Units 17:44 Total Bilirubin 1.1 H (0.0-1.0) mg/dL AST 14 (5-31) U/L ALT 10 (0-31) U/L Alkaline Phosphatase 121 H (39-117) U/L Albumin 3.6 (3.5-5.0) g/dL Assessment and Plan (1) Community acquired pneumonia: Status: Acute Possible strep pneumonia Hflu Legionella (2) Bronchitis: Status: Acute Plan Ceftriaxone and Zmax 3-5 days IV and then po Ceftin and Zmax total 10 days unless cultures indicate otherwise. Check urine Legionella antigen
[2021-08-28] MEDS: cefTRIAXone sodium 1 GM in 0.9 % Sodium Chloride 50 ML IV (20:43)
[2021-08-28] MEDS: Pramipexole Di-HCL 0.25 MG TABLET PO (20:44)
[2021-08-28] MEDS: Azithromycin 500 MG TABLET PO (20:47)
[2021-08-29] VITALS (7 sets, daily range): BP systolic 94–124; BP diastolic 44–58; PULSE 75–82; RESP 16–20; TEMP 35.7–37.2; O2SAT 94–97
[2021-08-29] MEDS: Omeprazole 20 MG CAPSULE.DR PO (06:02)
[2021-08-29] MEDS: Levothyroxine Sodium 100 MCG TABLET PO (06:02)
[2021-08-29 06:53] LABS: Hematocrit 34.4 % (37.0-47.0); Mean Corpuscular Hemoglobin 32.4 pg (27.0-33.0); Mean Corpuscular Volume 101.2 fL (80.0-98.0); Mean Platelet Volume 10.2 fL (9.4-12.3); Platelet Count 221 X10*3/uL (160-400); Red Cell Distribution Width 15.9 % (11.0-16.0); White Blood Count 6.8 X10*3/uL (4.8-10.8)
[2021-08-29 07:05] LABS: Anion Gap 15 (12-20); Blood Urea Nitrogen 32 mg/dL (9-16); Calcium 8.5 mg/dL (8.4-10.2); Carbon Dioxide 24 mmol/L (22-29); Chloride 104 mmol/L (96-108); Creatinine Clr Calc Pharmacy 20.1; Estimated Glomerular Filt Rate 19; Glucose Fasting 95 mg/dL (60-99); Potassium 4.2 mmol/L (3.3-5.1); Sodium 139 mmol/L (135-145)
[2021-08-29 07:27] LABS: Glucose, Whole Blood 102 mg/dL (60-115)
[2021-08-29] MEDS: allopurinoL 300 MG TABLET PO (08:09)
[2021-08-29] MEDS: Escitalopram Oxalate 10 MG TABLET PO (08:09)
[2021-08-29] MEDS: Clopidogrel Bisulfate 75 MG TABLET PO (08:09)
[2021-08-29] MEDS: Losartan Potassium 25 MG TABLET PO (08:09)
[2021-08-29] MEDS: Ezetimibe 10 MG TABLET PO (08:09)
[2021-08-29] MEDS: Gabapentin 300 MG CAPSULE 900 MG PO ×2 (08:09→21:27)
[2021-08-29] MEDS: Furosemide 40 MG TABLET PO (08:09)
[2021-08-29] MEDS: 0.9 % Sodium Chloride Flush 3 ML SYRINGE IVFLUSH ×3 (08:10→21:27)
[2021-08-29] MEDS: Moxifloxacin HCl 0.5 % Oph Sol 3 ML DRPBTL 1 DROP EYE-BOTH ×3 (08:10→21:27)
--- NOTE | 2021-08-29 09:41 | HO.PM.IMPN ---
Subjective Subjective Date of Service: 08/29/21 Interval History: cc; sob interval hsitory: unchanged Cardiovascular Cardiovascular: Reports no additional cardiovascular complaints Gastrointestinal Gastrointestinal: Reports no additional gastrointestinal complaints Physical Exam Vital Signs: Vital Signs: Last Vital Signs Temp 98.0 F 08/29/21 07:21 Pulse 78 08/29/21 07:21 Resp 18 08/29/21 07:21 BP 124/58 L 08/29/21 07:21 Pulse Ox 95 08/29/21 07:21 BMI result Body Mass Index 42.0 General: AO X 3, no acute distress Resp:? crackles bilateral, no accessory muscles used CVS: S1,S2,RRR GI: soft, non tender, non distended Neuro:? motor grossly intact, alert Psych: appropriate affect, appropriate insight? Objective Data Active Medications Acetaminophen (Acetaminophen 325 Mg Tablet) 650 mg PO Q6H PRN PRN Reason: Pain, Mild (Pain Scale 1-3) Last Admin: 08/27/21 21:17 Dose: 650 mg Documented by: ROMAN Albuterol Sulfate (Albuterol Sulfate 90 Mcg 8 Gm Inhaler) 2 puff INHALE Q4H PRN PRN Reason: Shortness Of Breath Albuterol/Ipratropium (Albuterol/Iprat 2.5/0.5mg 3 Ml Ampul.Neb) 3 ml INHALE RQ4H PRN PRN Reason: Shortness of Breath/Wheezing Allopurinol (Allopurinol 300 Mg Tablet) 300 mg PO DAILY [facility] Last Admin: 08/29/21 08:09 Dose: 300 mg Documented by: SYDNEY Azithromycin (Azithromycin 500 Mg Tablet) 500 mg PO Q24H [facility] Last Admin: 08/28/21 20:47 Dose: 500 mg Documented by: FERNANDO Benzonatate (Benzonatate 100 Mg Capsule) 100 mg PO TID PRN PRN Reason: Cough Last Admin: 08/28/21 08:57 Dose: 100 mg Documented by: MERCEDES Clopidogrel Bisulfate (Clopidogrel Bisulfate 75 Mg Tablet) 75 mg PO DAILY [facility] Last Admin: 08/29/21 08:09 Dose: 75 mg Documented by: SYDNEY Dextrose (Dextrose 50 % 25 Gm/50 Ml Syringe) 25 gm IVPUSH Q15M PRN; Protocol PRN Reason: per Hypoglycemia Standing Ord. Ezetimibe (Ezetimibe 10 Mg Tablet) 10 mg PO DAILY [facility] Last Admin: 08/29/21 08:09 Dose: 10 mg Documented by: SYDNEY Escitalopram Oxalate (Escitalopram Oxalate 10 Mg Tablet) 10 mg PO DAILY [facility] Last Admin: 08/29/21 08:09 Dose: 10 mg Documented by: SYDNEY Furosemide (Furosemide 40 Mg/4 Ml Vial) 40 mg IVPUSH BID@0900,1800 [facility]; Protocol Gabapentin (Gabapentin 300 Mg Capsule) 900 mg PO BID [facility] Last Admin: 08/29/21 08:09 Dose: 900 mg Documented by: SYDNEY Glucose (Glucose Gel 15 Gm Gel..Gram.) 15 gm PO Q15M PRN; Protocol PRN Reason: per Hypoglycemia Standing Ord. Guaifenesin/Codeine Phosphate (Guaifen/Codeine Sf 200/20/10ml 10 Ml Liquid) 5 ml PO Q6H PRN PRN Reason: Cough Last Admin: 08/28/21 20:43 Dose: 5 ml Documented by: FERNANDO Heparin Sodium (Porcine) (Heparin Sodium,Porcine 5,000 Unit/Ml Vial) 5,000 unit SUBCUT Q8H [facility] Last Admin: 08/29/21 06:01 Dose: Not Given Documented by: FERNANDO Non-Admin Reason: On plavix Ceftriaxone Sodium 1 gm/ (Sodium Chloride) 50 mls @ 100 mls/hr IV Q24H [facility] Last Infusion: 08/28/21 21:25 Dose: 0 mls/hr Documented by: FERNANDO Insulin Human Lispro (Insulin Lispro 100 Unit/Ml 3 Ml Vial) 0 unit SUBCUT QIDACHS [facility]; Protocol Last Admin: 08/29/21 07:34 Dose: Not Given Documented by: SYDNEY Non-Admin Reason: No Insulin Coverage Levothyroxine Sodium (Levothyroxine Sodium 100 Mcg Tablet) 100 mcg PO DAILY@0600 [facility] Last Admin: 08/29/21 06:02 Dose: 100 mcg Documented by: FERNANDO Losartan Potassium (Losartan Potassium 25 Mg Tablet) 25 mg PO DAILY [facility]; Protocol Last Admin: 08/29/21 08:09 Dose: 25 mg Documented by: SYDNEY Melatonin (Melatonin 3 Mg Tablet) 6 mg PO BEDTIME PRN PRN Reason: Insomnia Last Admin: 08/28/21 20:44 Dose: 6 mg Documented by: FERNANDO Moxifloxacin HCl (Moxifloxacin Hcl 0.5 % Oph Nishi 3 Ml Drpbtl) 1 drop EYE-BOTH TID [facility] Stop: 09/04/21 10:27 Last Admin: 08/29/21 08:10 Dose: 1 drop Documented by: SYDNEY Omeprazole (Omeprazole 20 Mg Capsule.Dr) 20 mg PO DAILY@0630 [facility] Last Admin: 08/29/21 06:02 Dose: 20 mg Documented by: FERNANDO Pramipexole Dihydrochloride (Pramipexole Di-Hcl 0.25 Mg Tablet) 0.25 mg PO BEDTIME [facility] Last Admin: 08/28/21 20:44 Dose: 0.25 mg Documented by: FERNANDO Senna (Sennosides 8.6 Mg Tablet) 17.2 mg PO BEDTIME PRN PRN Reason: Constipation Sodium Chloride (0.9 % Sodium Chloride Flush 3 Ml Syringe) 3 ml IVFLUSH QSHIFT [facility] Last Admin: 08/29/21 08:10 Dose: 3 ml Documented by: SYDNEY Labs CBC & Chem 7: 08/29/21 06:02 08/29/21 06:02 Labs: Laboratory Results - last 24 hr 08/28/21 08/28/21 08/29/21 11:45 14:06 06:02 MCV 101.2 H MCH 32.4 MCHC 32.0 RDW 15.9 Plt Count 221 MPV 10.2 Absolute Nucleated RBC 0.000 Nucleated RBC % (auto) 0.0 Anion Gap Estim Creat Clear Calc Estimated GFR POC Glucose 103 Fasting Glucose Calcium Respiratory Panel Green See Note Adenovirus (Rapid PCR) Not Detected B.pert (TEM-PCR) Not Detected B.parapertussis DNA PCR Not Detected C. pneumoniae DNA (PCR) Not Detected Coronavirus OC43 (PCR) Not Detected Coronavirus HKU1 (PCR) Not Detected Coronavirus 229E (PCR) Not Detected Coronavirus NL63 (PCR) Not Detected Human Metapneumovir PCR Not Detected Influenza A (RT-PCR) Not Detected Influenza B (RT-PCR) Not Detected M. pneumoniae (PCR) Not Detected Parainfluenza 1 (PCR) Not Detected Parainfluenza 2 (PCR) Not Detected Parainfluenza 3 (PCR) Not Detected Parainfluenza 4 (PCR) Not Detected RSV (PCR) Not Detected Entero/Rhino (PCR) Not Detected SARS-CoV-2 RNA (RT-PCR) Not Detected 08/29/21 08/29/21 06:02 07:23 MCV MCH MCHC RDW Plt Count MPV Absolute Nucleated RBC Nucleated RBC % (auto) Anion Gap 15 Estim Creat Clear Calc 20.1 Estimated GFR 19 POC Glucose 102 Fasting Glucose 95 Calcium 8.5 Respiratory Panel Green Adenovirus (Rapid PCR) B.pert (TEM-PCR) B.parapertussis DNA PCR C. pneumoniae DNA (PCR) Coronavirus OC43 (PCR) Coronavirus HKU1 (PCR) Coronavirus 229E (PCR) Coronavirus NL63 (PCR) Human Metapneumovir PCR Influenza A (RT-PCR) Influenza B (RT-PCR) M. pneumoniae (PCR) Parainfluenza 1 (PCR) Parainfluenza 2 (PCR) Parainfluenza 3 (PCR) Parainfluenza 4 (PCR) RSV (PCR) Entero/Rhino (PCR) SARS-CoV-2 RNA (RT-PCR) Assessment and Plan (1) Community acquired pneumonia: Status: Acute Plan 80-year-old female with a past medical history of hypertension, hyperlipidemia, diabetes, COPD, CKDIV, history of chronic back pain status post spine stimulator; presented to the hospital with a chief complaint of shortness of breath/cough with sputum production.? Noted to have bilateral opacities on the chest x-ray.? Admitted for further management.? sob, bilateral opacities on cxr also complained of purulent discharge from both eyes, diarrhea ?viral or atypical bacterial pneumonia resp viral panel negative, follow up urine leginella Continue ceftriaxone and azithromycin.? Id appreciated COVID-19 negative Cough suppressants acute bacterial conjunctivits - vigamox acute on chronic diastolic chf seems less likely, but with minimal improvement and elevated BNp and diastolic dysfunction on echo, will empirically change to iv lasix 40mg bid monitor bmp COPD nebs prn CKD IV patient has fistula for planned future HD hypothyroidism levothyroxine neuropathy gabapentin diabetes insulin DVT prophylaxis:? Subcu heparin Code status: Full code Quality Stroke Does the patient have a stroke diagnosis?: No VTE Prior VTE?: No VTE Risk Level:: Medical - moderate - high VTE Device Contraindication: Treatment Not Indicated VTE Drug Contraindication: N/A - Med Ordered
--- NOTE | 2021-08-29 10:24 | P.CDIC_ITS ---
CDI Concurrent Query Documentation Clarification: PHYSICIAN'S DOCUMENTATION REQUEST Date of Query: 08/29/21 1006 Patient Name: Jassi Choudhury Jr Admit Date: 08/27/21 Dear Doctor, A review of the medical record indicates additional documentation may be needed. Please review below and update the documentation accordingly. Risk Factors/Clinical Indicators/Treatments Confusion, hallucinations, thinking others are family members, disorientation, disoriented to time and place. Somewhat hostile. 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 If possible, please further clarify type of Alzheimer's and any associated manifestations: Clarity of documentation: Disease Type: * Early onset * Late onset * Other Alzheimer's disease * Dementia without behavioral disturbance * Dementia with behavioral disturbance * Vascular Dementia Encephalopathy, Wernicke-korsafoff, Toxic/Metabolic etc. * Dementia with delusions * Confusion * Sundowning * Other ? please specify * Unable to determine Use of terms such as suspected, likely, concern for, or probable (associated with a specific diagnosis that is being evaluated, monitored, or treated as if it exists) are acceptable and can be coded in the inpatient setting, when documented at the time of discharge. Thank you, Sarah García [facility], CDIS Extension: [phone] Please use your independent medical judgment in providing your response. THIS QUERY IS PART OF THE PERMANENT MEDICAL RECORD Provider Response: Other Other Diagnosis: wrong patient
[2021-08-29 11:12] LABS: Glucose, Whole Blood 106 mg/dL (60-115)
[2021-08-29] MEDS: Furosemide 40 MG/4 ML VIAL IVPUSH ×2 (12:35→18:27)
[2021-08-29] MEDS: guaiFEN/Codeine SF 200/20/10ML 10 ML LIQUID 5 ML PO ×2 (16:21→22:12)
[2021-08-29 17:13] LABS: Glucose, Whole Blood 106 mg/dL (60-115)
[2021-08-29] MEDS: Acetaminophen 325 MG TABLET 650 MG PO (18:27)
[2021-08-29 20:33] LABS: Glucose, Whole Blood 95 mg/dL (60-115)
[2021-08-29] MEDS: Pramipexole Di-HCL 0.25 MG TABLET PO (21:26)
[2021-08-29] MEDS: Azithromycin 500 MG TABLET PO (21:26)
[2021-08-29] MEDS: cefTRIAXone sodium 1 GM in 0.9 % Sodium Chloride 50 ML IV (21:27)
[2021-08-30] VITALS (7 sets, daily range): BP systolic 110–132; BP diastolic 46–60; PULSE 66–81; RESP 16–20; TEMP 36.2–36.7; O2SAT 94–97
[2021-08-30] MEDS: Levothyroxine Sodium 100 MCG TABLET PO (05:40)
[2021-08-30] MEDS: Omeprazole 20 MG CAPSULE.DR PO (05:40)
[2021-08-30 06:40] LABS: Hematocrit 33.7 % (37.0-47.0); Hemoglobin 10.8 g/dl (12.0-16.0); Mean Corpuscular Hemoglobin 32.2 pg (27.0-33.0); Mean Corpuscular Volume 100.6 fL (80.0-98.0); Mean Platelet Volume 10.2 fL (9.4-12.3); Platelet Count 218 X10*3/uL (160-400); Red Blood Count 3.35 X10*6/uL (4.20-5.50); Red Cell Distribution Width 15.5 % (11.0-16.0); White Blood Count 6.3 X10*3/uL (4.8-10.8)
[2021-08-30 07:17] LABS: Anion Gap 13 (12-20); Blood Urea Nitrogen 42 mg/dL (9-16); Calcium 8.4 mg/dL (8.4-10.2); Carbon Dioxide 25 mmol/L (22-29); Chloride 102 mmol/L (96-108); Creatinine Clr Calc Pharmacy 18.1; Estimated Glomerular Filt Rate 17; Glucose Fasting 103 mg/dL (60-99); Potassium 3.9 mmol/L (3.3-5.1); Sodium 136 mmol/L (135-145)
[2021-08-30 07:51] LABS: Glucose, Whole Blood 102 mg/dL (60-115)
[2021-08-30] MEDS: Gabapentin 300 MG CAPSULE 900 MG PO ×2 (09:14→20:20)
[2021-08-30] MEDS: Ezetimibe 10 MG TABLET PO (09:14)
[2021-08-30] MEDS: allopurinoL 300 MG TABLET PO (09:14)
[2021-08-30] MEDS: Acetaminophen 325 MG TABLET 650 MG PO ×2 (09:14→20:28)
[2021-08-30] MEDS: guaiFEN/Codeine SF 200/20/10ML 10 ML LIQUID 5 ML PO ×2 (09:15→20:28)
[2021-08-30] MEDS: Moxifloxacin HCl 0.5 % Oph Sol 3 ML DRPBTL 1 DROP EYE-BOTH ×3 (09:15→20:21)
[2021-08-30] MEDS: 0.9 % Sodium Chloride Flush 3 ML SYRINGE IVFLUSH ×2 (09:15→19:16)
[2021-08-30] MEDS: Furosemide 40 MG TABLET PO ×2 (09:15→19:16)
[2021-08-30] MEDS: Clopidogrel Bisulfate 75 MG TABLET PO (09:15)
[2021-08-30] MEDS: Losartan Potassium 25 MG TABLET PO (09:15)
[2021-08-30] MEDS: Escitalopram Oxalate 10 MG TABLET PO (09:15)
--- NOTE | 2021-08-30 09:52 | P.PNIM_ITS ---
Subjective Subjective Date of Service: 08/30/21 Interval History: cc; sob interval hsitory: a biut better, feeling weak Cardiovascular Cardiovascular: Reports no additional cardiovascular complaints Respiratory Respiratory: Reports no additional respiratory complaints Physical Exam Vital Signs: Vital Signs: Last Vital Signs Temp 97.1 F 08/30/21 07:29 Pulse 79 08/30/21 07:29 Resp 18 08/30/21 07:29 BP 118/56 L 08/30/21 07:29 Pulse Ox 96 08/30/21 07:29 BMI result Body Mass Index 42.0 General: AO X 3, no acute distress Resp:? crackles bilateral, no accessory muscles used CVS: S1,S2,RRR GI: soft, non tender, non distended Neuro:? motor grossly intact, alert Psych: appropriate affect, appropriate insight? Objective Data Active Medications Acetaminophen (Acetaminophen 325 Mg Tablet) 650 mg PO Q6H PRN PRN Reason: Pain, Mild (Pain Scale 1-3) Last Admin: 08/30/21 09:14 Dose: 650 mg Documented by: NESSA Albuterol Sulfate (Albuterol Sulfate 90 Mcg 8 Gm Inhaler) 2 puff INHALE Q4H PRN PRN Reason: Shortness Of Breath Albuterol/Ipratropium (Albuterol/Iprat 2.5/0.5mg 3 Ml Ampul.Neb) 3 ml INHALE RQ4H PRN PRN Reason: Shortness of Breath/Wheezing Allopurinol (Allopurinol 300 Mg Tablet) 300 mg PO DAILY [facility] Last Admin: 08/30/21 09:14 Dose: 300 mg Documented by: NESSA Azithromycin (Azithromycin 500 Mg Tablet) 500 mg PO Q24H [facility] Last Admin: 08/29/21 21:26 Dose: 500 mg Documented by: ANTOIC Benzonatate (Benzonatate 100 Mg Capsule) 100 mg PO TID PRN PRN Reason: Cough Last Admin: 08/28/21 08:57 Dose: 100 mg Documented by: MERCEDES Clopidogrel Bisulfate (Clopidogrel Bisulfate 75 Mg Tablet) 75 mg PO DAILY [facility] Last Admin: 08/30/21 09:15 Dose: 75 mg Documented by: NESSA Dextrose (Dextrose 50 % 25 Gm/50 Ml Syringe) 25 gm IVPUSH Q15M PRN; Protocol PRN Reason: per Hypoglycemia Standing Ord. Ezetimibe (Ezetimibe 10 Mg Tablet) 10 mg PO DAILY [facility] Last Admin: 08/30/21 09:14 Dose: 10 mg Documented by: NESSA Escitalopram Oxalate (Escitalopram Oxalate 10 Mg Tablet) 10 mg PO DAILY [facility] Last Admin: 08/30/21 09:15 Dose: 10 mg Documented by: NESSA Furosemide (Furosemide 40 Mg Tablet) 40 mg PO BID@0900,1800 [facility]; Protocol Last Admin: 08/30/21 09:15 Dose: 40 mg Documented by: NESSA Gabapentin (Gabapentin 300 Mg Capsule) 900 mg PO BID [facility] Last Admin: 08/30/21 09:14 Dose: 900 mg Documented by: NESSA Glucose (Glucose Gel 15 Gm Gel..Gram.) 15 gm PO Q15M PRN; Protocol PRN Reason: per Hypoglycemia Standing Ord. Guaifenesin/Codeine Phosphate (Guaifen/Codeine Sf 200/20/10ml 10 Ml Liquid) 5 ml PO Q6H PRN PRN Reason: Cough Last Admin: 08/30/21 09:15 Dose: 5 ml Documented by: NESSA Heparin Sodium (Porcine) (Heparin Sodium,Porcine 5,000 Unit/Ml Vial) 5,000 unit SUBCUT Q8H [facility] Last Admin: 08/29/21 21:36 Dose: Not Given Documented by: MAULIK Non-Admin Reason: Patient Refused Ceftriaxone Sodium 1 gm/ (Sodium Chloride) 50 mls @ 100 mls/hr IV Q24H [facility] Last Infusion: 08/29/21 22:05 Dose: 0 mls/hr Documented by: MAULIK Insulin Human Lispro (Insulin Lispro 100 Unit/Ml 3 Ml Vial) 0 unit SUBCUT QIDACHS [facility]; Protocol Last Admin: 08/30/21 07:55 Dose: Not Given Documented by: NESSA Non-Admin Reason: No Insulin Coverage Levothyroxine Sodium (Levothyroxine Sodium 100 Mcg Tablet) 100 mcg PO DAILY@0600 [facility] Last Admin: 08/30/21 05:40 Dose: 100 mcg Documented by: MAULIK Losartan Potassium (Losartan Potassium 25 Mg Tablet) 25 mg PO DAILY [facility]; Protocol Last Admin: 08/30/21 09:15 Dose: 25 mg Documented by: NESSA Melatonin (Melatonin 3 Mg Tablet) 6 mg PO BEDTIME PRN PRN Reason: Insomnia Last Admin: 08/28/21 20:44 Dose: 6 mg Documented by: FERNANDO Moxifloxacin HCl (Moxifloxacin Hcl 0.5 % Oph Nishi 3 Ml Drpbtl) 1 drop EYE-BOTH TID [facility] Stop: 09/04/21 10:27 Last Admin: 08/30/21 09:15 Dose: 1 drop Documented by: NESSA Omeprazole (Omeprazole 20 Mg Capsule.Dr) 20 mg PO DAILY@0630 [facility] Last Admin: 08/30/21 05:40 Dose: 20 mg Documented by: ANTDAVID Pramipexole Dihydrochloride (Pramipexole Di-Hcl 0.25 Mg Tablet) 0.25 mg PO BEDTIME [facility] Last Admin: 08/29/21 21:26 Dose: 0.25 mg Documented by: ANTDAVID Senna (Sennosides 8.6 Mg Tablet) 17.2 mg PO BEDTIME PRN PRN Reason: Constipation Sodium Chloride (0.9 % Sodium Chloride Flush 3 Ml Syringe) 3 ml IVFLUSH QSHIFT [facility] Last Admin: 08/30/21 09:15 Dose: 3 ml Documented by: NESSA Labs CBC & Chem 7: 08/30/21 06:22 08/30/21 06:22 Labs: Laboratory Results - last 24 hr 08/29/21 08/29/21 08/29/21 11:09 17:07 20:28 MCV MCH MCHC RDW Plt Count MPV Absolute Nucleated RBC Nucleated RBC % (auto) Anion Gap Estim Creat Clear Calc Estimated GFR POC Glucose 106 106 95 Fasting Glucose Calcium 08/30/21 08/30/21 08/30/21 06:22 06:22 07:30 MCV 100.6 H MCH 32.2 MCHC 32.0 RDW 15.5 Plt Count 218 MPV 10.2 Absolute Nucleated RBC 0.000 Nucleated RBC % (auto) 0.0 Anion Gap 13 Estim Creat Clear Calc 18.1 Estimated GFR 17 POC Glucose 102 Fasting Glucose 103 H Calcium 8.4 Assessment and Plan (1) Community acquired pneumonia: Status: Acute Plan 80-year-old female with a past medical history of hypertension, hyperlipidemia, diabetes, COPD, CKDIV, history of chronic back pain status post spine stimulator; presented to the hospital with a chief complaint of shortness of breath/cough with sputum production.? Noted to have bilateral opacities on the chest x-ray.? Admitted for further management.? sob, bilateral opacities on cxr also complained of purulent discharge from both eyes, diarrhea ?viral or atypical bacterial pneumonia resp viral panel negative follow up urine leginella Continue ceftriaxone and azithromycin.? 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 Subcu heparin Code status: Full code Quality Stroke Does the patient have a stroke diagnosis?: No VTE Prior VTE?: No VTE Risk Level:: Medical - moderate - high VTE Device Contraindication: Treatment Not Indicated VTE Drug Contraindication: N/A - Med Ordered
[2021-08-30 11:28] LABS: Glucose, Whole Blood 83 mg/dL (60-115)
--- NOTE | 2021-08-30 13:13 | MHC.CM.PN ---
per rounds no anticapated dc date mentiones at this time plan is for pt to retu n home with dgter and vna
[2021-08-30] MEDS: Heparin Sodium,Porcine 5,000 UNIT/ML VIAL 5000 UNIT SUBCUT ×2 (14:46→20:20)
[2021-08-30 16:21] LABS: Glucose, Whole Blood 101 mg/dL (60-115)
[2021-08-30 20:11] LABS: Glucose, Whole Blood 116 mg/dL (60-115)
[2021-08-30] MEDS: Azithromycin 500 MG TABLET PO (20:20)
[2021-08-30] MEDS: Pramipexole Di-HCL 0.25 MG TABLET PO (20:20)
[2021-08-30] MEDS: cefTRIAXone sodium 1 GM in 0.9 % Sodium Chloride 50 ML IV (20:21)
[2021-08-31] VITALS (7 sets, daily range): BP systolic 105–130; BP diastolic 42–62; PULSE 72–80; RESP 16–20; TEMP 36.6–37.1; O2SAT 92–98
[2021-08-31] MEDS: Acetaminophen 325 MG TABLET 650 MG PO ×3 (04:09→23:43)
[2021-08-31] MEDS: Levothyroxine Sodium 100 MCG TABLET PO (06:27)
[2021-08-31] MEDS: Omeprazole 20 MG CAPSULE.DR PO (06:27)
[2021-08-31] MEDS: Heparin Sodium,Porcine 5,000 UNIT/ML VIAL 5000 UNIT SUBCUT ×3 (06:27→20:03)
[2021-08-31 06:32] LABS: Hematocrit 31.8 % (37.0-47.0); Hemoglobin 10.4 g/dl (12.0-16.0); Mean Corpuscular HGB Conc 32.7 g/dl (31.0-35.0); Mean Corpuscular Hemoglobin 32.9 pg (27.0-33.0); Mean Corpuscular Volume 100.6 fL (80.0-98.0); Mean Platelet Volume 10.2 fL (9.4-12.3); Platelet Count 234 X10*3/uL (160-400); Red Blood Count 3.16 X10*6/uL (4.20-5.50); Red Cell Distribution Width 15.2 % (11.0-16.0); White Blood Count 5.8 X10*3/uL (4.8-10.8)
[2021-08-31 06:43] LABS: Anion Gap 13 (12-20); Blood Urea Nitrogen 47 mg/dL (9-16); Calcium 8.6 mg/dL (8.4-10.2); Carbon Dioxide 27 mmol/L (22-29); Chloride 102 mmol/L (96-108); Creatinine Clr Calc Pharmacy 18.6; Estimated Glomerular Filt Rate 17; Glucose Fasting 109 mg/dL (60-99); Potassium 4.1 mmol/L (3.3-5.1); Sodium 138 mmol/L (135-145)
[2021-08-31 07:33] LABS: Glucose, Whole Blood 109 mg/dL (60-115)
[2021-08-31] MEDS: Ezetimibe 10 MG TABLET PO (08:35)
[2021-08-31] MEDS: Escitalopram Oxalate 10 MG TABLET PO (08:35)
[2021-08-31] MEDS: Clopidogrel Bisulfate 75 MG TABLET PO (08:35)
[2021-08-31] MEDS: Losartan Potassium 25 MG TABLET PO (08:35)
[2021-08-31] MEDS: allopurinoL 300 MG TABLET PO (08:35)
[2021-08-31] MEDS: Furosemide 40 MG TABLET PO ×2 (08:35→17:51)
[2021-08-31] MEDS: Gabapentin 300 MG CAPSULE 900 MG PO ×2 (08:35→19:58)
[2021-08-31] MEDS: 0.9 % Sodium Chloride Flush 3 ML SYRINGE IVFLUSH ×3 (08:36→20:06)
[2021-08-31] MEDS: Moxifloxacin HCl 0.5 % Oph Sol 3 ML DRPBTL 1 DROP EYE-BOTH ×3 (08:37→20:00)
[2021-08-31] MEDS: Sennosides 8.6 MG TABLET 17.2 MG PO (08:38)
[2021-08-31 11:24] LABS: Glucose, Whole Blood 118 mg/dL (60-115)
[2021-08-31] MEDS: predniSONE 20 MG TABLET 40 MG PO (12:01)
[2021-08-31] MEDS: guaiFEN/Codeine SF 200/20/10ML 10 ML LIQUID 5 ML PO ×2 (12:09→23:43)
--- NOTE | 2021-08-31 13:10 | HO.PM.IMPN ---
Subjective Subjective Date of Service: 08/31/21 Interval History: cc; sob interval hsitory: feeling weak Cardiovascular Cardiovascular: Reports no additional cardiovascular complaints Gastrointestinal Gastrointestinal: Reports no additional gastrointestinal complaints Physical Exam Vital Signs: Vital Signs: Last Vital Signs Temp 98.1 F 08/31/21 11:30 Pulse 74 08/31/21 11:30 Resp 18 08/31/21 11:30 BP 106/53 L 08/31/21 11:30 Pulse Ox 96 08/31/21 11:30 BMI result Body Mass Index 42.0 General: AO X 3, no acute distress Resp:? crackles bilateral, no accessory muscles used CVS: S1,S2,RRR GI: soft, non tender, non distended Neuro:? motor grossly intact, alert Psych: appropriate affect, appropriate insight? Objective Data Active Medications Acetaminophen (Acetaminophen 325 Mg Tablet) 650 mg PO Q6H PRN PRN Reason: Pain, Mild (Pain Scale 1-3) Last Admin: 08/31/21 04:09 Dose: 650 mg Documented by: PRIYANKA Albuterol Sulfate (Albuterol Sulfate 90 Mcg 8 Gm Inhaler) 2 puff INHALE Q4H PRN PRN Reason: Shortness Of Breath Albuterol/Ipratropium (Albuterol/Iprat 2.5/0.5mg 3 Ml Ampul.Neb) 3 ml INHALE RQ4H PRN PRN Reason: Shortness of Breath/Wheezing Allopurinol (Allopurinol 300 Mg Tablet) 300 mg PO DAILY [facility] Last Admin: 08/31/21 08:35 Dose: 300 mg Documented by: NESSA Azithromycin (Azithromycin 500 Mg Tablet) 500 mg PO Q24H [facility] Last Admin: 08/30/21 20:20 Dose: 500 mg Documented by: ANU Benzonatate (Benzonatate 100 Mg Capsule) 100 mg PO TID PRN PRN Reason: Cough Last Admin: 08/28/21 08:57 Dose: 100 mg Documented by: MERCEDES Clopidogrel Bisulfate (Clopidogrel Bisulfate 75 Mg Tablet) 75 mg PO DAILY [facility] Last Admin: 08/31/21 08:35 Dose: 75 mg Documented by: NESSA Dextrose (Dextrose 50 % 25 Gm/50 Ml Syringe) 25 gm IVPUSH Q15M PRN; Protocol PRN Reason: per Hypoglycemia Standing Ord. Ezetimibe (Ezetimibe 10 Mg Tablet) 10 mg PO DAILY [facility] Last Admin: 08/31/21 08:35 Dose: 10 mg Documented by: NESSA Escitalopram Oxalate (Escitalopram Oxalate 10 Mg Tablet) 10 mg PO DAILY [facility] Last Admin: 08/31/21 08:35 Dose: 10 mg Documented by: NESSA Furosemide (Furosemide 40 Mg Tablet) 40 mg PO BID@0900,1800 [facility]; Protocol Last Admin: 08/31/21 08:35 Dose: 40 mg Documented by: NESSA Gabapentin (Gabapentin 300 Mg Capsule) 900 mg PO BID [facility] Last Admin: 08/31/21 08:35 Dose: 900 mg Documented by: NESSA Glucose (Glucose Gel 15 Gm Gel..Gram.) 15 gm PO Q15M PRN; Protocol PRN Reason: per Hypoglycemia Standing Ord. Guaifenesin/Codeine Phosphate (Guaifen/Codeine Sf 200/20/10ml 10 Ml Liquid) 5 ml PO Q6H PRN PRN Reason: Cough Last Admin: 08/31/21 12:09 Dose: 5 ml Documented by: NESSA Heparin Sodium (Porcine) (Heparin Sodium,Porcine 5,000 Unit/Ml Vial) 5,000 unit SUBCUT Q8H [facility] Last Admin: 08/31/21 12:16 Dose: 5,000 unit Documented by: NESSA Ceftriaxone Sodium 1 gm/ (Sodium Chloride) 50 mls @ 100 mls/hr IV Q24H [facility] Last Infusion: 08/30/21 20:57 Dose: 0 mls/hr Documented by: ANU Insulin Human Lispro (Insulin Lispro 100 Unit/Ml 3 Ml Vial) 0 unit SUBCUT QIDACHS [facility]; Protocol Last Admin: 08/31/21 11:55 Dose: Not Given Documented by: NESSA Non-Admin Reason: No Insulin Coverage Levothyroxine Sodium (Levothyroxine Sodium 100 Mcg Tablet) 100 mcg PO DAILY@0600 [facility] Last Admin: 08/31/21 06:27 Dose: 100 mcg Documented by: PRIYANKA Melatonin (Melatonin 3 Mg Tablet) 6 mg PO BEDTIME PRN PRN Reason: Insomnia Last Admin: 08/28/21 20:44 Dose: 6 mg Documented by: HO.GUSHMAZ Moxifloxacin HCl (Moxifloxacin Hcl 0.5 % Oph Nishi 3 Ml Drpbtl) 1 drop EYE-BOTH TID [facility] Stop: 09/04/21 10:27 Last Admin: 08/31/21 08:37 Dose: 1 drop Documented by: NESSA Omeprazole (Omeprazole 20 Mg Capsule.Dr) 20 mg PO DAILY@0630 [facility] Last Admin: 08/31/21 06:27 Dose: 20 mg Documented by: PRIYANKA Pramipexole Dihydrochloride (Pramipexole Di-Hcl 0.25 Mg Tablet) 0.25 mg PO BEDTIME [facility] Last Admin: 08/30/21 20:20 Dose: 0.25 mg Documented by: ANU Prednisone (Prednisone 20 Mg Tablet) 40 mg PO DAILY [facility] Last Admin: 08/31/21 12:01 Dose: 40 mg Documented by: NESSA Senna (Sennosides 8.6 Mg Tablet) 17.2 mg PO BEDTIME PRN PRN Reason: Constipation Last Admin: 08/31/21 08:38 Dose: 17.2 mg Documented by: NESSA Sodium Chloride (0.9 % Sodium Chloride Flush 3 Ml Syringe) 3 ml IVFLUSH QSHIFT [facility] Last Admin: 08/31/21 08:36 Dose: 3 ml Documented by: NESSA Labs CBC & Chem 7: 08/31/21 06:08 08/31/21 06:08 Labs: Laboratory Results - last 24 hr 08/30/21 08/30/21 08/31/21 15:25 20:07 06:08 MCV 100.6 H MCH 32.9 MCHC 32.7 RDW 15.2 Plt Count 234 MPV 10.2 Absolute Nucleated RBC 0.000 Nucleated RBC % (auto) 0.0 Anion Gap Estim Creat Clear Calc Estimated GFR POC Glucose 101 116 H Fasting Glucose Calcium 08/31/21 08/31/21 08/31/21 06:08 07:27 11:09 MCV MCH MCHC RDW Plt Count MPV Absolute Nucleated RBC Nucleated RBC % (auto) Anion Gap 13 Estim Creat Clear Calc 18.6 Estimated GFR 17 POC Glucose 109 118 H Fasting Glucose 109 H Calcium 8.6 Assessment and Plan (1) Community acquired pneumonia: Status: Acute Plan 80-year-old female with a past medical history of hypertension, hyperlipidemia, diabetes, COPD, CKDIV, history of chronic back pain status post spine stimulator; presented to the hospital with a chief complaint of shortness of breath/cough with sputum production.? Noted to have bilateral opacities on the chest x-ray.? Admitted for further management.? sob, bilateral opacities on cxr also complained of purulent discharge from both eyes, diarrhea ?viral or atypical bacterial pneumonia resp viral panel negative follow up urine leginella Continue ceftriaxone and azithromycin.? Id appreciated COVID-19 negative Cough suppressants acute bacterial conjunctivits - vigamox acute on chronic diastolic chf seems less likely, did not improve much with iv lasix, cxr unchanged. 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 Subcu heparin Code status: Full code Quality Stroke Does the patient have a stroke diagnosis?: No VTE Prior VTE?: No VTE Risk Level:: Medical - moderate - high VTE Device Contraindication: Treatment Not Indicated VTE Drug Contraindication: N/A - Med Ordered
[2021-08-31 17:21] LABS: Glucose, Whole Blood 156 mg/dL (60-115)
[2021-08-31] MEDS: Insulin Lispro 100 UNIT/ML 3 ML VIAL SUBCUT (17:51)
[2021-08-31] MEDS: Azithromycin 500 MG TABLET PO (19:57)
[2021-08-31] MEDS: Pramipexole Di-HCL 0.25 MG TABLET PO (19:58)
[2021-08-31] MEDS: cefTRIAXone sodium 1 GM in 0.9 % Sodium Chloride 50 ML IV (20:00)
[2021-08-31 20:13] LABS: Glucose, Whole Blood 136 mg/dL (60-115)
[2021-09-01 03:42] VITALS: BP 111/46; PULSE 73; RESP 20; TEMP 36.1; O2SAT 97
[2021-09-01] MEDS: Heparin Sodium,Porcine 5,000 UNIT/ML VIAL 5000 UNIT SUBCUT ×3 (06:07→19:41)
[2021-09-01] MEDS: Levothyroxine Sodium 100 MCG TABLET PO (06:08)
[2021-09-01] MEDS: Omeprazole 20 MG CAPSULE.DR PO (06:08)
[2021-09-01] MEDS: guaiFEN/Codeine SF 200/20/10ML 10 ML LIQUID 5 ML PO ×2 (06:12→20:50)
[2021-09-01 07:37] VITALS: BP 108/51; PULSE 75; RESP 18; TEMP 36.6; O2SAT 97
[2021-09-01 07:46] LABS: Glucose, Whole Blood 129 mg/dL (60-115)
[2021-09-01] MEDS: predniSONE 20 MG TABLET 40 MG PO (08:38)
[2021-09-01] MEDS: allopurinoL 300 MG TABLET PO (08:38)
[2021-09-01] MEDS: Escitalopram Oxalate 10 MG TABLET PO (08:38)
[2021-09-01] MEDS: Clopidogrel Bisulfate 75 MG TABLET PO (08:38)
[2021-09-01] MEDS: Gabapentin 300 MG CAPSULE 900 MG PO ×2 (08:38→19:42)
[2021-09-01] MEDS: Furosemide 40 MG TABLET PO ×2 (08:38→17:27)
[2021-09-01] MEDS: Ezetimibe 10 MG TABLET PO (08:39)
[2021-09-01] MEDS: Moxifloxacin HCl 0.5 % Oph Sol 3 ML DRPBTL 1 DROP EYE-BOTH ×3 (08:39→19:42)
[2021-09-01] MEDS: 0.9 % Sodium Chloride Flush 3 ML SYRINGE IVFLUSH ×3 (08:39→19:42)
--- NOTE | 2021-09-01 09:52 | HO.PM.IMPN ---
Subjective Subjective Date of Service: 09/01/21 Interval History: cc; sob interval hsitory: some improvement today Cardiovascular Cardiovascular: Reports no additional cardiovascular complaints Gastrointestinal Gastrointestinal: Reports no additional gastrointestinal complaints Physical Exam Vital Signs: Vital Signs: Last Vital Signs Temp 97.9 F 09/01/21 07:37 Pulse 75 09/01/21 07:37 Resp 18 09/01/21 07:37 BP 108/51 L 09/01/21 07:37 Pulse Ox 97 09/01/21 07:37 BMI result Body Mass Index 42.0 General: AO X 3, no acute distress Resp:? crackles bilateral, no accessory muscles used CVS: S1,S2,RRR GI: soft, non tender, non distended Neuro:? motor grossly intact, alert Psych: appropriate affect, appropriate insight? Objective Data Active Medications Acetaminophen (Acetaminophen 325 Mg Tablet) 650 mg PO Q6H PRN PRN Reason: Pain, Mild (Pain Scale 1-3) Last Admin: 08/31/21 23:43 Dose: 650 mg Documented by: JOLLY Albuterol Sulfate (Albuterol Sulfate 90 Mcg 8 Gm Inhaler) 2 puff INHALE Q4H PRN PRN Reason: Shortness Of Breath Albuterol/Ipratropium (Albuterol/Iprat 2.5/0.5mg 3 Ml Ampul.Neb) 3 ml INHALE RQ4H PRN PRN Reason: Shortness of Breath/Wheezing Allopurinol (Allopurinol 300 Mg Tablet) 300 mg PO DAILY [facility] Last Admin: 09/01/21 08:38 Dose: 300 mg Documented by: NESSA Azithromycin (Azithromycin 500 Mg Tablet) 500 mg PO Q24H [facility] Last Admin: 08/31/21 19:57 Dose: 500 mg Documented by: JOLLY Benzonatate (Benzonatate 100 Mg Capsule) 100 mg PO TID PRN PRN Reason: Cough Last Admin: 08/28/21 08:57 Dose: 100 mg Documented by: MERCEDES Clopidogrel Bisulfate (Clopidogrel Bisulfate 75 Mg Tablet) 75 mg PO DAILY [facility] Last Admin: 09/01/21 08:38 Dose: 75 mg Documented by: NESSA Dextrose (Dextrose 50 % 25 Gm/50 Ml Syringe) 25 gm IVPUSH Q15M PRN; Protocol PRN Reason: per Hypoglycemia Standing Ord. Ezetimibe (Ezetimibe 10 Mg Tablet) 10 mg PO DAILY [facility] Last Admin: 09/01/21 08:39 Dose: 10 mg Documented by: NESSA Escitalopram Oxalate (Escitalopram Oxalate 10 Mg Tablet) 10 mg PO DAILY [facility] Last Admin: 09/01/21 08:38 Dose: 10 mg Documented by: NESSA Furosemide (Furosemide 40 Mg Tablet) 40 mg PO BID@0900,1800 [facility]; Protocol Last Admin: 09/01/21 08:38 Dose: 40 mg Documented by: NESSA Gabapentin (Gabapentin 300 Mg Capsule) 900 mg PO BID [facility] Last Admin: 09/01/21 08:38 Dose: 900 mg Documented by: NESSA Glucose (Glucose Gel 15 Gm Gel..Gram.) 15 gm PO Q15M PRN; Protocol PRN Reason: per Hypoglycemia Standing Ord. Guaifenesin/Codeine Phosphate (Guaifen/Codeine Sf 200/20/10ml 10 Ml Liquid) 5 ml PO Q6H PRN PRN Reason: Cough Last Admin: 09/01/21 06:12 Dose: 5 ml Documented by: JOLLY Heparin Sodium (Porcine) (Heparin Sodium,Porcine 5,000 Unit/Ml Vial) 5,000 unit SUBCUT Q8H [facility] Last Admin: 09/01/21 06:07 Dose: 5,000 unit Documented by: JOLLY Ceftriaxone Sodium 1 gm/ (Sodium Chloride) 50 mls @ 100 mls/hr IV Q24H [facility] Last Infusion: 08/31/21 21:28 Dose: 0 mls/hr Documented by: JOLLY Insulin Human Lispro (Insulin Lispro 100 Unit/Ml 3 Ml Vial) 0 unit SUBCUT QIDACHS [facility]; Protocol Last Admin: 09/01/21 07:47 Dose: Not Given Documented by: NESSA Non-Admin Reason: No Insulin Coverage Levothyroxine Sodium (Levothyroxine Sodium 100 Mcg Tablet) 100 mcg PO DAILY@0600 [facility] Last Admin: 09/01/21 06:08 Dose: 100 mcg Documented by: JOLLY Melatonin (Melatonin 3 Mg Tablet) 6 mg PO BEDTIME PRN PRN Reason: Insomnia Last Admin: 08/28/21 20:44 Dose: 6 mg Documented by: FERNANDO Moxifloxacin HCl (Moxifloxacin Hcl 0.5 % Oph Nishi 3 Ml Drpbtl) 1 drop EYE-BOTH TID [facility] Stop: 09/04/21 10:27 Last Admin: 09/01/21 08:39 Dose: 1 drop Documented by: NESSA Omeprazole (Omeprazole 20 Mg Capsule.Dr) 20 mg PO DAILY@0630 [facility] Last Admin: 09/01/21 06:08 Dose: 20 mg Documented by: JOLLY Pramipexole Dihydrochloride (Pramipexole Di-Hcl 0.25 Mg Tablet) 0.25 mg PO BEDTIME [facility] Last Admin: 08/31/21 19:58 Dose: 0.25 mg Documented by: JOLLY Prednisone (Prednisone 20 Mg Tablet) 40 mg PO DAILY [facility] Last Admin: 09/01/21 08:38 Dose: 40 mg Documented by: NESSA Senna (Sennosides 8.6 Mg Tablet) 17.2 mg PO BEDTIME PRN PRN Reason: Constipation Last Admin: 08/31/21 08:38 Dose: 17.2 mg Documented by: NESSA Sodium Chloride (0.9 % Sodium Chloride Flush 3 Ml Syringe) 3 ml IVFLUSH QSHIFT [facility] Last Admin: 09/01/21 08:39 Dose: 3 ml Documented by: NESSA Labs CBC & Chem 7: 08/31/21 06:08 08/31/21 06:08 Labs: Laboratory Results - last 24 hr 08/31/21 08/31/21 08/31/21 11:09 16:56 19:55 POC Glucose 118 H 156 H 136 H 09/01/21 07:40 POC Glucose 129 H Assessment and Plan (1) Community acquired pneumonia: Status: Acute Plan 80-year-old female with a past medical history of hypertension, hyperlipidemia, diabetes, COPD, CKDIV, history of chronic back pain status post spine stimulator; presented to the hospital with a chief complaint of shortness of breath/cough with sputum production.? Noted to have bilateral opacities on the chest x-ray.? Admitted for further management.? sob, bilateral opacities on cxr also complained of purulent discharge from both eyes, diarrhea ?viral or atypical bacterial pneumonia resp viral panel negative follow up urine leginella Continue ceftriaxone and azithromycin.? Id appreciated COVID-19 negative Cough suppressants acute bacterial conjunctivits - vigamox acute on chronic diastolic chf seems less likely, did not improve much with iv lasix, cxr unchanged. 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 Subcu heparin Code status: Full code Quality Stroke Does the patient have a stroke diagnosis?: No VTE Prior VTE?: No VTE Risk Level:: Medical - moderate - high VTE Device Contraindication: Treatment Not Indicated VTE Drug Contraindication: N/A - Med Ordered
[2021-09-01 11:48] LABS: Glucose, Whole Blood 99 mg/dL (60-115)
[2021-09-01 11:57] VITALS: BP 113/53; PULSE 69; RESP 20; TEMP 36.6; O2SAT 93
[2021-09-01 15:37] VITALS: BP 114/52; PULSE 79; RESP 16; TEMP 36.2; O2SAT 91
[2021-09-01 16:44] LABS: Glucose, Whole Blood 211 mg/dL (60-115)
[2021-09-01] MEDS: Insulin Lispro 100 UNIT/ML 3 ML VIAL SUBCUT (17:24)
[2021-09-01 19:01] VITALS: BP 124/58; PULSE 77; RESP 16; TEMP 36.3; O2SAT 89
[2021-09-01] MEDS: cefTRIAXone sodium 1 GM in 0.9 % Sodium Chloride 50 ML IV (19:41)
[2021-09-01] MEDS: Azithromycin 500 MG TABLET PO (19:41)
[2021-09-01] MEDS: Pramipexole Di-HCL 0.25 MG TABLET PO (19:41)
[2021-09-01 20:18] LABS: Glucose, Whole Blood 118 mg/dL (60-115)
[2021-09-01 23:24] VITALS: BP 101/50; PULSE 70; RESP 19; TEMP 36.5; O2SAT 91
[2021-09-01] MEDS: Acetaminophen 325 MG TABLET 650 MG PO (23:30)
[2021-09-02 00:06] LABS: Legionella Ag Urine Not Detected (Not Detected)
[2021-09-02 03:40] VITALS: BP 110/52; PULSE 71; RESP 20; TEMP 36.2; O2SAT 93
[2021-09-02] MEDS: Omeprazole 20 MG CAPSULE.DR PO (05:39)
[2021-09-02] MEDS: Heparin Sodium,Porcine 5,000 UNIT/ML VIAL 5000 UNIT SUBCUT ×3 (05:39→20:19)
[2021-09-02] MEDS: Levothyroxine Sodium 100 MCG TABLET PO (05:39)
[2021-09-02 07:23] LABS: Glucose, Whole Blood 118 mg/dL (60-115)
[2021-09-02 07:37] LABS: Hematocrit 30.9 % (37.0-47.0); Hemoglobin 9.9 g/dl (12.0-16.0); Mean Corpuscular Hemoglobin 32.2 pg (27.0-33.0); Mean Corpuscular Volume 100.7 fL (80.0-98.0); Mean Platelet Volume 10.4 fL (9.4-12.3); Platelet Count 264 X10*3/uL (160-400); Red Blood Count 3.07 X10*6/uL (4.20-5.50); Red Cell Distribution Width 15.3 % (11.0-16.0); White Blood Count 10.9 X10*3/uL (4.8-10.8)
[2021-09-02 07:47] LABS: Anion Gap 17 (12-20); Blood Urea Nitrogen 65 mg/dL (9-16); Carbon Dioxide 22 mmol/L (22-29); Chloride 104 mmol/L (96-108); Creatinine Clr Calc Pharmacy 19.5; Estimated Glomerular Filt Rate 18; Glucose Fasting 116 mg/dL (60-99); Potassium 4.7 mmol/L (3.3-5.1); Sodium 138 mmol/L (135-145)
[2021-09-02 08:00] VITALS: BP 113/46; PULSE 68; RESP 20; TEMP 36.6; O2SAT 92
[2021-09-02] MEDS: Clopidogrel Bisulfate 75 MG TABLET PO (08:46)
[2021-09-02] MEDS: 0.9 % Sodium Chloride Flush 3 ML SYRINGE IVFLUSH ×3 (08:46→20:20)
[2021-09-02] MEDS: predniSONE 20 MG TABLET 40 MG PO (08:46)
[2021-09-02] MEDS: allopurinoL 300 MG TABLET PO (08:46)
[2021-09-02] MEDS: Ezetimibe 10 MG TABLET PO (08:46)
[2021-09-02] MEDS: Furosemide 40 MG TABLET PO ×2 (08:46→16:38)
[2021-09-02] MEDS: Moxifloxacin HCl 0.5 % Oph Sol 3 ML DRPBTL 1 DROP EYE-BOTH ×3 (08:46→20:28)
[2021-09-02] MEDS: Gabapentin 300 MG CAPSULE 900 MG PO ×2 (08:46→20:18)
[2021-09-02] MEDS: Escitalopram Oxalate 10 MG TABLET PO (08:46)
--- NOTE | 2021-09-02 09:20 | HO.PM.IMPN ---
Subjective Subjective Date of Service: 09/02/21 Interval History: cc; sob interval hsitory: continues to improve a bit, cough Cardiovascular Cardiovascular: Reports no additional cardiovascular complaints Gastrointestinal Gastrointestinal: Reports no additional gastrointestinal complaints Physical Exam Vital Signs: Vital Signs: Last Vital Signs Temp 97.8 F 09/02/21 08:00 Pulse 68 09/02/21 08:00 Resp 20 09/02/21 08:00 BP 113/46 L 09/02/21 08:00 Pulse Ox 92 09/02/21 08:00 BMI result Body Mass Index 42.0 General: AO X 3, no acute distress Resp:? crackles bilateral, no accessory muscles used CVS: S1,S2,RRR GI: soft, non tender, non distended Neuro:? motor grossly intact, alert Psych: appropriate affect, appropriate insight? Objective Data Active Medications Acetaminophen (Acetaminophen 325 Mg Tablet) 650 mg PO Q6H PRN PRN Reason: Pain, Mild (Pain Scale 1-3) Last Admin: 09/01/21 23:30 Dose: 650 mg Documented by: MAULIK Albuterol Sulfate (Albuterol Sulfate 90 Mcg 8 Gm Inhaler) 2 puff INHALE Q4H PRN PRN Reason: Shortness Of Breath Albuterol/Ipratropium (Albuterol/Iprat 2.5/0.5mg 3 Ml Ampul.Neb) 3 ml INHALE RQ4H PRN PRN Reason: Shortness of Breath/Wheezing Allopurinol (Allopurinol 300 Mg Tablet) 300 mg PO DAILY [facility] Last Admin: 09/02/21 08:46 Dose: 300 mg Documented by: NESSA Azithromycin (Azithromycin 500 Mg Tablet) 500 mg PO Q24H [facility] Last Admin: 09/01/21 19:41 Dose: 500 mg Documented by: MAULIK Benzonatate (Benzonatate 100 Mg Capsule) 100 mg PO TID PRN PRN Reason: Cough Last Admin: 08/28/21 08:57 Dose: 100 mg Documented by: MERCEDES Clopidogrel Bisulfate (Clopidogrel Bisulfate 75 Mg Tablet) 75 mg PO DAILY [facility] Last Admin: 09/02/21 08:46 Dose: 75 mg Documented by: NESSA Dextrose (Dextrose 50 % 25 Gm/50 Ml Syringe) 25 gm IVPUSH Q15M PRN; Protocol PRN Reason: per Hypoglycemia Standing Ord. Ezetimibe (Ezetimibe 10 Mg Tablet) 10 mg PO DAILY [facility] Last Admin: 09/02/21 08:46 Dose: 10 mg Documented by: NESSA Escitalopram Oxalate (Escitalopram Oxalate 10 Mg Tablet) 10 mg PO DAILY [facility] Last Admin: 09/02/21 08:46 Dose: 10 mg Documented by: NESSA Furosemide (Furosemide 40 Mg Tablet) 40 mg PO BID@0900,1800 [facility]; Protocol Last Admin: 09/02/21 08:46 Dose: 40 mg Documented by: NESSA Gabapentin (Gabapentin 300 Mg Capsule) 900 mg PO BID [facility] Last Admin: 09/02/21 08:46 Dose: 900 mg Documented by: NESSA Glucose (Glucose Gel 15 Gm Gel..Gram.) 15 gm PO Q15M PRN; Protocol PRN Reason: per Hypoglycemia Standing Ord. Guaifenesin/Dextromethorphan (Guaifenesin Dm 100/10/5 Ml 5 Ml Syrup) 5 ml PO Q6H PRN PRN Reason: cough Heparin Sodium (Porcine) (Heparin Sodium,Porcine 5,000 Unit/Ml Vial) 5,000 unit SUBCUT Q8H [facility] Last Admin: 09/02/21 05:39 Dose: 5,000 unit Documented by: MAULIK Ceftriaxone Sodium 1 gm/ (Sodium Chloride) 50 mls @ 100 mls/hr IV Q24H [facility] Last Infusion: 09/01/21 20:21 Dose: 0 mls/hr Documented by: MAULIK Insulin Human Lispro (Insulin Lispro 100 Unit/Ml 3 Ml Vial) 0 unit SUBCUT QIDACHS [facility]; Protocol Last Admin: 09/02/21 07:26 Dose: Not Given Documented by: NESSA Non-Admin Reason: No Insulin Coverage Levothyroxine Sodium (Levothyroxine Sodium 100 Mcg Tablet) 100 mcg PO DAILY@0600 [facility] Last Admin: 09/02/21 05:39 Dose: 100 mcg Documented by: MAULIK Melatonin (Melatonin 3 Mg Tablet) 6 mg PO BEDTIME PRN PRN Reason: Insomnia Last Admin: 08/28/21 20:44 Dose: 6 mg Documented by: FERNANDO Moxifloxacin HCl (Moxifloxacin Hcl 0.5 % Oph Nishi 3 Ml Drpbtl) 1 drop EYE-BOTH TID [facility] Stop: 09/04/21 10:27 Last Admin: 09/02/21 08:46 Dose: 1 drop Documented by: NESSA Omeprazole (Omeprazole 20 Mg Capsule.Dr) 20 mg PO DAILY@0630 [facility] Last Admin: 09/02/21 05:39 Dose: 20 mg Documented by: MAULIK Pramipexole Dihydrochloride (Pramipexole Di-Hcl 0.25 Mg Tablet) 0.25 mg PO BEDTIME [facility] Last Admin: 09/01/21 19:41 Dose: 0.25 mg Documented by: MAULIK Prednisone (Prednisone 20 Mg Tablet) 40 mg PO DAILY [facility] Last Admin: 09/02/21 08:46 Dose: 40 mg Documented by: NESSA Senna (Sennosides 8.6 Mg Tablet) 17.2 mg PO BEDTIME PRN PRN Reason: Constipation Last Admin: 08/31/21 08:38 Dose: 17.2 mg Documented by: NESSA Sodium Chloride (0.9 % Sodium Chloride Flush 3 Ml Syringe) 3 ml IVFLUSH QSHIFT [facility] Last Admin: 09/02/21 08:46 Dose: 3 ml Documented by: NESSA Labs CBC & Chem 7: 09/02/21 07:02 09/02/21 07:02 Labs: Laboratory Results - last 24 hr 08/28/21 09/01/21 09/01/21 11:45 11:15 16:04 MCV MCH MCHC RDW Plt Count MPV Absolute Nucleated RBC Nucleated RBC % (auto) Anion Gap Estim Creat Clear Calc Estimated GFR POC Glucose 99 211 H Fasting Glucose Calcium Ur L.pneumophila Ag Not Detected 09/01/21 09/02/21 09/02/21 20:05 07:02 07:02 MCV 100.7 H MCH 32.2 MCHC 32.0 RDW 15.3 Plt Count 264 MPV 10.4 Absolute Nucleated RBC 0.000 Nucleated RBC % (auto) 0.0 Anion Gap 17 Estim Creat Clear Calc 19.5 Estimated GFR 18 POC Glucose 118 H Fasting Glucose 116 H Calcium 9.0 Ur L.pneumophila Ag 09/02/21 07:11 MCV MCH MCHC RDW Plt Count MPV Absolute Nucleated RBC Nucleated RBC % (auto) Anion Gap Estim Creat Clear Calc Estimated GFR POC Glucose 118 H Fasting Glucose Calcium Ur L.pneumophila Ag Assessment and Plan (1) Community acquired pneumonia: Status: Acute Plan 80-year-old female with a past medical history of hypertension, hyperlipidemia, diabetes, COPD, CKDIV, history of chronic back pain status post spine stimulator; presented to the hospital with a chief complaint of shortness of breath/cough with sputum production.? Noted to have bilateral opacities on the chest x-ray.? Admitted for further management.? sob, bilateral opacities on cxr also complained of purulent discharge from both eyes, diarrhea ?viral or atypical bacterial pneumonia resp viral panel negative negative urine leginella Continue ceftriaxone and azithromycin.? Id appreciated COVID-19 negative Cough suppressants acute bacterial conjunctivits - vigamox acute on chronic diastolic chf seems less likely, did not improve much with iv lasix, cxr unchanged. 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 Subcu heparin Code status: Full code Quality Stroke Does the patient have a stroke diagnosis?: No VTE Prior VTE?: No VTE Risk Level:: Medical - moderate - high VTE Device Contraindication: Treatment Not Indicated VTE Drug Contraindication: N/A - Med Ordered
--- NOTE | 2021-09-02 10:52 | PM.PNNEP ---
Subjective Subjective Date of Service: 09/02/21 Principal diagnosis: seen and examined Interval history: cc; sob interval hsitory: continues to improve a bit, cough Physical Exam Vital Signs: Vital Signs: Last Vital Signs Temp 97.8 F 09/02/21 08:00 Pulse 68 09/02/21 08:00 Resp 20 09/02/21 08:00 BP 113/46 L 09/02/21 08:00 Pulse Ox 92 09/02/21 08:00 BMI result Body Mass Index 42.0 Objective Data Labs CBC & Chem 7: 09/02/21 07:02 09/02/21 07:02 Labs: Laboratory Results - last 24 hr 08/28/21 09/01/21 09/01/21 11:45 11:15 16:04 WBC RBC Hgb Hct MCV MCH MCHC RDW Plt Count MPV Absolute Nucleated RBC Nucleated RBC % (auto) Sodium Potassium Chloride Carbon Dioxide Anion Gap BUN Creatinine Estim Creat Clear Calc Estimated GFR POC Glucose 99 211 H Fasting Glucose Calcium Ur L.pneumophila Ag Not Detected 09/01/21 09/02/21 09/02/21 20:05 07:02 07:02 WBC 10.9 H RBC 3.07 L Hgb 9.9 L Hct 30.9 L MCV 100.7 H MCH 32.2 MCHC 32.0 RDW 15.3 Plt Count 264 MPV 10.4 Absolute Nucleated RBC 0.000 Nucleated RBC % (auto) 0.0 Sodium 138 Potassium 4.7 Chloride 104 Carbon Dioxide 22 Anion Gap 17 BUN 65 H Creatinine 2.52 H Estim Creat Clear Calc 19.5 Estimated GFR 18 POC Glucose 118 H Fasting Glucose 116 H Calcium 9.0 Ur L.pneumophila Ag 09/02/21 07:11 WBC RBC Hgb Hct MCV MCH MCHC RDW Plt Count MPV Absolute Nucleated RBC Nucleated RBC % (auto) Sodium Potassium Chloride Carbon Dioxide Anion Gap BUN Creatinine Estim Creat Clear Calc Estimated GFR POC Glucose 118 H Fasting Glucose Calcium Ur L.pneumophila Ag Procedures Date of Service Date of Service: 09/02/21 Assessment & Plan Assessment and plan (1) CKD (chronic kidney disease) stage 4, GFR 15-29 ml/min: Status: Acute (2) Anemia: Status: Acute Plan known severe CKD baseline Scr 2-3 mg/dl (labs at [facility] [place] on 06/27/21 showed serum creatinine 2.7 mg/dl) multifactorial: -hypertensive kidney disease -nephron loss due to aging -residual kidney function loss from prior DEVIN recently relocated from [place] (followed there by [facility] in [place]) REC reduce gabapentin to 300 mg daily (renally dosed) protect vascular access 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
[2021-09-02 11:38] LABS: Glucose, Whole Blood 120 mg/dL (60-115)
[2021-09-02 11:41] VITALS: BP 118/52; PULSE 65; RESP 20; TEMP 36.6; O2SAT 97
[2021-09-02] MEDS: guaiFENesin DM 100/10/5 ML 5 ML SYRUP PO ×2 (12:31→20:19)
[2021-09-02 15:11] VITALS: BP 126/60; PULSE 69; RESP 16; TEMP 36.3; O2SAT 91
[2021-09-02 16:26] LABS: Glucose, Whole Blood 160 mg/dL (60-115)
[2021-09-02] MEDS: Sennosides 8.6 MG TABLET 17.2 MG PO (16:38)
[2021-09-02] MEDS: Insulin Lispro 100 UNIT/ML 3 ML VIAL SUBCUT ×2 (16:38→20:27)
[2021-09-02 19:46] VITALS: BP 127/57; PULSE 75; RESP 18; TEMP 36.7; O2SAT 92
[2021-09-02 20:13] LABS: Glucose, Whole Blood 178 mg/dL (60-115)
[2021-09-02] MEDS: cefTRIAXone sodium 1 GM in 0.9 % Sodium Chloride 50 ML IV (20:16)
[2021-09-02] MEDS: Benzonatate 100 MG CAPSULE PO (20:17)
[2021-09-02] MEDS: Pramipexole Di-HCL 0.25 MG TABLET PO (20:17)
[2021-09-02] MEDS: Azithromycin 500 MG TABLET PO (20:18)
[2021-09-02 23:26] VITALS: BP 138/50; PULSE 70; RESP 16; TEMP 36.6; O2SAT 90
[2021-09-03 03:47] VITALS: BP 126/50; PULSE 74; RESP 20; TEMP 37; O2SAT 92
[2021-09-03] MEDS: Omeprazole 20 MG CAPSULE.DR PO (05:45)
[2021-09-03] MEDS: Levothyroxine Sodium 100 MCG TABLET PO (05:45)
[2021-09-03] MEDS: Heparin Sodium,Porcine 5,000 UNIT/ML VIAL 5000 UNIT SUBCUT (05:45)
[2021-09-03 06:27] LABS: Hematocrit 32.1 % (37.0-47.0); Hemoglobin 10.5 g/dl (12.0-16.0); Mean Corpuscular HGB Conc 32.7 g/dl (31.0-35.0); Mean Corpuscular Hemoglobin 32.5 pg (27.0-33.0); Mean Corpuscular Volume 99.4 fL (80.0-98.0); Mean Platelet Volume 10.3 fL (9.4-12.3); Platelet Count 291 X10*3/uL (160-400); Red Blood Count 3.23 X10*6/uL (4.20-5.50); Red Cell Distribution Width 15.2 % (11.0-16.0); White Blood Count 10.8 X10*3/uL (4.8-10.8)
[2021-09-03 06:50] LABS: Anion Gap 15 (12-20); Blood Urea Nitrogen 72 mg/dL (9-16); Calcium 9.4 mg/dL (8.4-10.2); Carbon Dioxide 27 mmol/L (22-29); Chloride 103 mmol/L (96-108); Creatinine Clr Calc Pharmacy 18.2; Estimated Glomerular Filt Rate 17; Glucose Fasting 111 mg/dL (60-99); Sodium 141 mmol/L (135-145)
[2021-09-03 07:11] LABS: Glucose, Whole Blood 105 mg/dL (60-115)
[2021-09-03 07:25] VITALS: BP 136/64; PULSE 72; RESP 18; TEMP 35.8; O2SAT 93
--- NOTE | 2021-09-03 08:02 | PM.PNNEP ---
Subjective Subjective Date of Service: 09/03/21 Principal diagnosis: seen and examined Interval history: seen and examined looks more comfortable denies SOB, CP, N/V/D Physical Exam Vital Signs: Vital Signs: Last Vital Signs Temp 96.5 F L 09/03/21 07:25 Pulse 72 09/03/21 07:25 Resp 18 09/03/21 07:25 BP 136/64 09/03/21 07:25 Pulse Ox 93 09/03/21 07:25 BMI result Body Mass Index 42.0 Const: General: cooperative Resp: Effort & Inspection: decreased respiratory effort Cardio: Rate: regular rate Rhythm: regular rhythm GI: Palpation (GI): Soft to palpation and nontender Extrem: General: Yes normal to inspection Objective Data Labs CBC & Chem 7: 09/03/21 05:59 09/03/21 05:59 Labs: Laboratory Results - last 24 hr 09/02/21 09/02/21 09/02/21 11:35 16:09 20:07 WBC RBC Hgb Hct MCV MCH MCHC RDW Plt Count MPV Absolute Nucleated RBC Nucleated RBC % (auto) Sodium Potassium Chloride Carbon Dioxide Anion Gap BUN Creatinine Estim Creat Clear Calc Estimated GFR POC Glucose 120 H 160 H 178 H Fasting Glucose Calcium 09/03/21 09/03/21 09/03/21 05:59 05:59 07:05 WBC 10.8 RBC 3.23 L Hgb 10.5 L Hct 32.1 L MCV 99.4 H MCH 32.5 MCHC 32.7 RDW 15.2 Plt Count 291 MPV 10.3 Absolute Nucleated RBC 0.000 Nucleated RBC % (auto) 0.0 Sodium 141 Potassium 4.0 Chloride 103 Carbon Dioxide 27 Anion Gap 15 BUN 72 H Creatinine 2.70 H Estim Creat Clear Calc 18.2 Estimated GFR 17 POC Glucose 105 Fasting Glucose 111 H Calcium 9.4 Procedures Date of Service Date of Service: 09/03/21 Assessment & Plan Assessment and plan (1) CKD (chronic kidney disease) stage 4, GFR 15-29 ml/min: Status: Acute (2) Anemia: Status: Acute Plan kidney function at baseline known severe CKD baseline Scr 2-3 mg/dl [place] [facility] [place] showed serum creatinine 2.7 mg/dl) multifactorial: -hypertensive kidney disease -nephron loss due to aging -residual kidney function loss from prior DEVIN recently relocated from [place] (followed there by 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
[2021-09-03] MEDS: Furosemide 40 MG TABLET PO (08:47)
[2021-09-03] MEDS: Clopidogrel Bisulfate 75 MG TABLET PO (08:47)
[2021-09-03] MEDS: allopurinoL 300 MG TABLET PO (08:47)
[2021-09-03] MEDS: Escitalopram Oxalate 10 MG TABLET PO (08:47)
[2021-09-03] MEDS: Gabapentin 300 MG CAPSULE 900 MG PO (08:47)
[2021-09-03] MEDS: 0.9 % Sodium Chloride Flush 3 ML SYRINGE IVFLUSH (08:48)
[2021-09-03] MEDS: predniSONE 20 MG TABLET 40 MG PO (08:48)
[2021-09-03] MEDS: Ezetimibe 10 MG TABLET PO (08:48)
[2021-09-03] MEDS: Moxifloxacin HCl 0.5 % Oph Sol 3 ML DRPBTL 1 DROP EYE-BOTH (08:51)
--- NOTE | 2021-09-03 09:20 | PM.DS ---
DS: Providers Provider Date of Service: 09/03/21 Date of admission: 08/27/21 20:50 Primary care physician: Randy Hernandez MD Consults: 08/28/21 00:11 Consult to Infectious Diseases Routine Consulting Provider: Sloane Lambert Reason for consultation: Multifocal pneumonia 09/02/21 09:19 Consult to Nephrology Routine Consulting Provider: Trell Cochran Reason for consultation: CKD IV, patient request, sees dr Drake DS: Diagnosis Discharge Diagnosis (1) CKD (chronic kidney disease) stage 4, GFR 15-29 ml/min: Status: Acute (2) Anemia: Status: Acute DS: Summary Hospital Course Hospital Course: Patient was admitted for shortness of breath with bilateral opacities on chest x-ray felt to be secondary to viral pneumonia complicated by COPD with acute decompensation and acute on chronic diastolic CHF. Patient was treated empirically with ceftriaxone azithromycin, respiratory viral panel was negative, urine Legionella was negative. She was given steroids and bronchodilators and cough suppressants. She was also treated for acute bacterial conjunctivitis with Vigamox. She was briefly given IV Lasix for CHF. Patient was noted to be a borderline hypotensive so her losartan has been held. Patient is feeling much better now, she completed course of antibiotics so will be discharged on prednisone 40 mg daily for 5 more days. She will follow up with Nephrology for CKD 4. Time Spent with Patient Time attestation: Total time spent providing and/or coordinating discharge services: Discharge coordination time: Greater than 30 minutes Quality: Stroke Does the patient have a stroke diagnosis?: No Physical Exam Vital Signs: Vital Signs: Last Vital Signs Temp 96.5 F L 09/03/21 07:25 Pulse 72 09/03/21 07:25 Resp 18 09/03/21 07:25 BP 136/64 09/03/21 07:25 Pulse Ox 93 09/03/21 07:25 BMI result Body Mass Index 42.0 General: AO X 3, no acute distress Resp:? crackles bilateral, no accessory muscles used CVS: S1,S2,RRR GI: soft, non tender, non distended Neuro:? motor grossly intact, alert Psych: appropriate affect, appropriate insight? DS: Data Data Completed and Pending Labs on day of discharge: Laboratory Results - last 24 hr 09/02/21 09/02/21 09/02/21 11:35 16:09 20:07 WBC RBC Hgb Hct MCV MCH MCHC RDW Plt Count MPV Absolute Nucleated RBC Nucleated RBC % (auto) Sodium Potassium Chloride Carbon Dioxide Anion Gap BUN Creatinine Estim Creat Clear Calc Estimated GFR POC Glucose 120 H 160 H 178 H Fasting Glucose Calcium 09/03/21 09/03/21 09/03/21 05:59 05:59 07:05 WBC 10.8 RBC 3.23 L Hgb 10.5 L Hct 32.1 L MCV 99.4 H MCH 32.5 MCHC 32.7 RDW 15.2 Plt Count 291 MPV 10.3 Absolute Nucleated RBC 0.000 Nucleated RBC % (auto) 0.0 Sodium 141 Potassium 4.0 Chloride 103 Carbon Dioxide 27 Anion Gap 15 BUN 72 H Creatinine 2.70 H Estim Creat Clear Calc 18.2 Estimated GFR 17 POC Glucose 105 Fasting Glucose 111 H Calcium 9.4 Discharge Plan Discharge Patient Disposition: Home, Self-Care Discharge Diagnosis: pneumonia Referrals: Randy Hernandez MD [Primary Care Provider] - 1 Week Discharge Medications: New prednisone 20 mg Tablet 40 mg PO DAILY Qty: 10 0RF dextromethorphan-guaifenesin 10-100 mg/5 mL Syrup 5 ml PO Q6H PRN (Reason: cough) Qty: 237 0RF Continued furosemide 40 mg tablet 1 tab PO BIDWM 0RF ipratropium-albuterol 0.5 mg-3 mg(2.5 mg base)/3 mL solution for nebulization 3 ml inhalation Q4H PRN (Reason: Shortness Of Breath) 0RF clopidogrel 75 mg tablet 1 tab PO DAILY 0RF levothyroxine 100 mcg tablet 1 tab PO DAILY 0RF citalopram 20 mg tablet 1 tab PO DAILY 0RF pantoprazole 40 mg tablet,delayed release (DR/EC) 1 tab PO DAILY 0RF pramipexole 0.25 mg tablet 1 tab PO BEDTIME 0RF allopurinol 300 mg tablet 1 tab PO DAILY 0RF albuterol sulfate 90 mcg/actuation HFA aerosol inhaler 2 inh inhalation Q4H PRN (Reason: Shortness Of Breath) 0RF calcipotriene 0.005 % ointment 1 appl topical BID 0RF ezetimibe 10 mg tablet 1 tab PO DAILY 0RF Trelegy Ellipta 1 puff inhalation DAILY 0RF Changed gabapentin 300 mg capsule 300 mg PO BID Qty: 0 0RF Discontinued losartan 25 mg tablet 1 tab PO DAILY 0RF Discharge Orders: Discharge Order (Routine); Ordered 09/03/21 Ordered By: Evgeny Scott Diet: advance to usual diet Activity on Discharge: As tolerated Stand Alone Forms: Patient Portal Discharge page Care Plan Goals: recovery Health Concerns: viral pneumonia, ckd Plan of Treatment: predniosne, follow up nephro Assessment: see above
--- NOTE | 2021-09-03 09:21 | MHC.CM.PN ---
Patient has been medically cleared for dc to home today, self care.Second IMM addressed with Patient and original has been given to her and a copy has been placed on the chart.Patient's Daughter will provide transportation home between 11 and 11:30 AM today.
--- NOTE | 2021-09-03 09:54 | CONS_ITS ---
DATE OF SERVICE: 09/02/2021 HISTORY OF PRESENT ILLNESS: This is an 80-year-old patient who has a history of chronic kidney disease stage 4, presented to the hospital with shortness of breath, productive cough, and found to have an elevated serum creatinine. The patient follow with Dr. Drake, had recently relocated from [place] where she was being followed by Nephrology. The patient has had placement of AV fistula in anticipation of renal replacement therapy. At the time of the consultation, she denies any chest pain, complaint of shortness of breath, cough. There is no report of nausea, vomiting, or diarrhea. Review of her office records suggests that she was evaluated for AV fistula placement back in [place] and left upper extremity; however, failed, and then she was subsequently scheduled to have repeat placement of AV fistula in left upper extremity, but never followed up with her vascular surgeon. Patient recently has been seen by vascular locally in the area. PAST MEDICAL HISTORY: Remarkable for chronic kidney disease stage 4, diabetes mellitus, hypertension, fibromyalgia, hypothyroidism, GERD. PAST SURGICAL HISTORY: Notable for appendectomy. MEDICATIONS: On outpatient included pantoprazole, losartan, levothyroxine, gabapentin, furosemide, Zetia, Plavix, citalopram, allopurinol, inhalers. ALLERGIES: SHE IS ALLERGIC TO NSAID. SOCIAL HISTORY: Does not smoke. FAMILY HISTORY: Negative for kidney disease. REVIEW OF SYSTEMS: 10-point review of system negative except for pertaining to History of Present Illness. PHYSICAL EXAMINATION: VITAL SIGNS: The blood pressure is 113/46, heart rate 68, respiratory rate 20, temperature 97.8. CONSTITUTIONAL: Looks stated age. No acute distress. NEUROLOGIC: Alert, awake. HEAD: Atraumatic, normocephalic. NECK: Supple. LUNGS: Decreased breath sounds. CARDIOVASCULAR: S1, S2. No rub. ABDOMEN: Soft, obese, nontender. EXTREMITIES: No peripheral edema. LABORATORY DATA: Showed a white count 10.9, hemoglobin 9.9, platelet count is 264. Sodium 138, potassium 4.7, chloride 104, CO2 of 22, BUN 65, creatinine 2.52. IMPRESSION: 1. Chronic kidney disease stage 4. 2. Anemia. This is a patient with severe chronic kidney disease at baseline due to combination of hypertensive nephrosclerosis and age-related nephrosclerosis and probably underlying nephrosclerosis due to residual kidney function loss from prior acute kidney injury. Her baseline serum creatinine on review of her records suggest that her creatinine has ranged between 2 and 3 mg/dL. She currently does not have any indication for replacement therapy. I will protect her AV fistula. I will have her on renal diet. Continue with furosemide and reduce gabapentin to 300 mg daily, dose renally. We will continue to follow closely her kidney function and electrolytes along with the medical team. Thank you for allowing me to participate in the care of this patient. Negar Bennett MD GF/MODL / [id number]
== END 2021-09-03 12:31 | disposition home or self-care (01) | DRG 193 ==
LOC: HO.ED 20:55 → HO.EDOVER 21:10 → HO.IMC 08-28 14:25
PROVIDERS: Admitting Provider Hospitalist; Emergency Provider Internal Medicine; PCP Pediatrics; Visit Provider Internal Medicine
DX: J18.9 Pneumonia, unspecified organism (principal); I50.33 Acute on chronic diastolic (congestive) heart failure; J44.0 Chronic obstructive pulmonary disease with (acute) lower respiratory infection; Z68.41 Body mass index [BMI] 40.0-44.9, adult; I13.0 Hypertensive heart and chronic kidney disease with heart failure and stage 1 through stage 4 chronic kidney disease, or unspecified chronic kidney disease; N18.4 Chronic kidney disease, stage 4 (severe); E11.22 Type 2 diabetes mellitus with diabetic chronic kidney disease; H10.023 Other mucopurulent conjunctivitis, bilateral; E03.9 Hypothyroidism, unspecified; E66.01 Morbid (severe) obesity due to excess calories; D63.1 Anemia in chronic kidney disease; I95.9 Hypotension, unspecified; Z96.82 Presence of neurostimulator; E11.40 Type 2 diabetes mellitus with diabetic neuropathy, unspecified; Z20.822 Contact with and (suspected) exposure to COVID-19; Z87.891 Personal history of nicotine dependence; Z79.02 Long term (current) use of antithrombotics/antiplatelets; Z79.890 Hormone replacement therapy; Z79.899 Other long term (current) drug therapy
CPT/HCPCS: 0241U; 36415; 71045; 80048; 80053; 82947; 83880; 84484; 85025; 85027; 85610; 87449; 87633; 87635; 93005; 93306; 94640; 96365; 96367; 96375; 99285; J0696; J1940

== ENCOUNTER 2021-09-13 10:45 | Outpatient (REF) | payer MEDICARE, SELFPAY ==
--- NOTE | ~2021-09-13 | XR_ITS ---
EXAMINATION: XR CHEST CLINICAL INFORMATION: Pneumonia COMPARISON: Previous chest x-ray August 2021 TECHNIQUE: 2 views of the chest were obtained. FINDINGS: The cardiac and mediastinal contours are stable. There are increased interstitial markings in the lungs similar to previous August 2021 exams. Differential would include interstitial lung disease and fibrotic lung disease post Covid. Clinical correlation is recommended. There is no pleural effusion or pneumothorax. There are degenerative changes of the spine. There is a lead seen in the lower thoracic spinal canal that appears unchanged. XR/XR chest 2V IMPRESSION: Low lung volumes and interstitial lung disease. Findings are similar to August 2021 exam.
[2021-09-13 14:02] LABS: Cholesterol 209 mg/dL; HDL Cholesterol 53 mg/dL; LDL Cholesterol Calculated 122 mg/dl; Triglycerides 174 mg/dL
[2021-09-13 14:21] LABS: B Type Natriuretic Peptide 73 pg/mL (<100)
[2021-09-13 14:25] LABS: Free T4 (Free Thyroxine) 0.92 ng/dL (0.71-1.85); Thyroid Stimulating Hormone 4.33 uIU/mL (0.32-4.0)
[2021-09-16 17:26] LABS: Thyroid Peroxidase Antibodies 1 IU/mL (<9)
== END 2021-09-13 10:46 | disposition home or self-care (01) ==
LOC: HO.HMGCX 10:45
PROVIDERS: Visit Provider Internal Medicine
DX: E03.9 Hypothyroidism, unspecified (principal); E78.5 Hyperlipidemia, unspecified; R79.89 Other specified abnormal findings of blood chemistry; Z87.01 Personal history of pneumonia (recurrent)
CPT/HCPCS: 36415; 71046; 80061; 83880; 84439; 84443; 86376

== ENCOUNTER 2021-09-21 09:41 | Inpatient (IN) | payer MEDICARE, SELFPAY ==
[2021-09-21] VITALS (8 sets, daily range): BP systolic 133–151; BP diastolic 53–58; PULSE 77–108; RESP 18–26; TEMP 36.7–37.6; O2SAT 82–97; BMI 44.1
--- NOTE | ~2021-09-21 | XR_ITS ---
EXAMINATION: XR CHEST CLINICAL INFORMATION: Cough, SOB COMPARISON: Chest 09/13/2021 TECHNIQUE: 2 views of the chest were obtained. FINDINGS: The lungs are well-expanded and clear of acute pneumonic process. Bilateral increased mild interstitial markings similar to previous study is noted. There is platelike atelectasis left lung base with mild eventration of left hemidiaphragm. Heart size and pulmonary vascularity is normal. XR/XR chest 2V IMPRESSION: Hypoexpanded lungs without acute process. Chronic mild prominent interstitial changes likely chronic unchanged.
--- NOTE | 2021-09-21 10:03 | ED_ITS ---
HPI - General Adult General Chief complaint: Dyspnea Stated complaint: Pneumonia Time Seen by Provider: 09/21/21 10:03 Source: patient Mode of arrival: EMS Limitations: no limitations History of Present Illness HPI narrative: 80-year-old female presents for concern for pneumonia. She has had a worsening cough over the last 2 weeks. On arrival, patient was satting 82% on room air, was put on 2 L of oxygen, is no w satting 96%. Patient was hospitalized for 8 days for multi lobar pneumonia, possibly viral in origin, exacerbated by her COPD and CHF, and was discharged September 03. she was treated with ceftriaxone, azithromycin, her urine was negative for Legionella. She did a prednisone burst and inhalers and was feeling much better. One week after discharge she started coughing again, with this sputum color change. She has had chest tightness despite using her inhaler. She has felt short of breath. The symptoms have been ongoing for last 10 days to 2 weeks. She was seen at urgent care on September 17, diagnosed with URI, given Augmentin, which she states was for a sinus infection. Patient has had diarrhea since she started the Augmentin. Patient currently lives with her daughter. She has a fistula in her right arm in preparation for dialysis due to chronic kidney disease stage 4. She is vaccinated and boosted for COVID. Related Data Home Medications Medication Instructions Recorded Confirmed Trelegy Ellipta 1 puff INHALATION DAILY 08/27/21 09/21/21 albuterol sulfate 90 mcg/actuation 2 inh INHALATION Q4H PRN 08/27/21 09/21/21 aerosol inhaler allopurinol 300 mg tablet 1 tab PO DAILY 08/27/21 09/21/21 calcipotriene 0.005 % topical 1 appl TOPICAL BID 08/27/21 09/21/21 ointment ezetimibe 10 mg tablet 1 tab PO DAILY 08/27/21 09/21/21 furosemide 40 mg tablet 1 tab PO BIDWM 08/27/21 09/21/21 ipratropium 0.5 mg-albuterol 3 mg 3 ml INHALATION Q4H PRN 08/27/21 09/21/21 (2.5 mg base)/3 mL nebulization soln levothyroxine 100 mcg tablet 1 tab PO DAILY 08/27/21 09/21/21 pantoprazole 40 mg tablet,delayed 1 tab PO DAILY 08/27/21 09/21/21 release pramipexole 0.25 mg tablet 1 tab PO BEDTIME 08/27/21 09/21/21 citalopram 20 mg tablet 40 mg PO DAILY tab 09/13/21 09/21/21 gabapentin 300 mg capsule 600 mg PO Q8H cap 09/13/21 09/21/21 Previous Rx's Medication Instructions Recorded amoxicillin 875 mg-potassium 1 tab PO Q12H #14 tab 09/17/21 clavulanate 125 mg tablet Allergies Allergy/AdvReac Type Severity Reaction Status Date / Time NSAIDS (Non-Steroidal Allergy Unknown Verified 09/17/21 11:11 Anti-Inflamma Review of Systems Constitutional: Constitutional: Denies body ache(s), Reports chills, Reports fatigue, Denies fever(s), Reports headache(s), Reports malaise and Denies weakness Eyes: Eyes: Denies diplopia ENT: Denies vertigo, Denies dizziness, Denies otalgia, Reports headache(s), Denies post nasal drip, Denies sinus pain, Reports sinus pressure and Denies sore throat Cardiovascular: Cardiovascular: Denies chest pain, Denies syncope, Denies leg edema, Denies lightheadedness, Denies Loss of Consciousness, Denies palpitations and Reports dyspnea Respiratory: Respiratory: Reports chest congestion, Reports cough, Reports pain with cough, Reports dyspnea and Reports wheezing Gastrointestinal: Gastrointestinal: Denies abdominal pain, Denies hematochezia, Denies constipation, Reports diarrhea and Denies vomiting Genitourinary: Genitourinary: Denies abnormal vaginal bleeding, Denies dysuria and Denies vaginal discharge Musculoskeletal: Musculoskeletal: Reports no additional musculoskeletal complaints Neurologic: Denies confusion, Denies vertigo, Denies dizziness, Denies syncope, Reports headache(s) and Denies weakness Psychiatric: Psychiatric: Denies anxiety, Denies confusion and Denies depression Endocrine: Endocrine: Reports fatigue and Denies palpitations Allergic/Immunologic: Allergic/Immunologic: Reports wheezing PMFSH Past Medical History Medical History Acquired hypothyroidism COPD (chronic obstructive pulmonary disease) Diabetes Dyslipidemia Fibromyalgia Heart murmur Kidney failure, acute Osteoarthritis of multiple joints Surgical History H/O hemorrhoidectomy Hx of fusion of cervical spine Hx of tonsillectomy S/P anal fissurectomy S/P appendectomy S/P partial hysterectomy Family History Family History Brother Substance use disorder Son Substance use disorder Daughter Substance use disorder Social History Social History Household Members: Family and Children Housing: House Do you presently have visiting nurse or other home services: No Alcohol intake: never Patient Tobacco Use Status: Former Tobacco user Quit Date: 15 yrs ago Tobacco use type: Cigarette Cigarettes Per Day: 5 e-Cigarette/Vaping Use: Never Used Second Hand Smoke Exposure: No Use of substances other than those prescribed or required for medical reasons: No Advance Directives: No Advance Directives Date on File: 08/28/21 service: No Current occupational status: retired Physical Exam ED Vital Signs: Vital Signs - 24 hr 09/21/21 10:12 09/21/21 10:40 09/21/21 10:43 Temperature 99.3 F 99.6 F Pulse Rate 86 91 Respiratory Rate 26 H Blood Pressure 151/58 H Pulse Oximetry 82 L 95 09/21/21 11:27 09/21/21 13:31 Temperature Pulse Rate 77 95 Respiratory Rate 18 20 Blood Pressure 133/53 L Pulse Oximetry 94 BMI result Body Mass Index 44.1 Const General: alert, awake and ill appearing acutely; No confusion Nutritional Appearance: obese centrally obese Orientation/consciousness: patient oriented x3 and No confusion Limitations: no limitations HENMT Head: Yes normal to inspection and Yes No palpable skull fracture present Ears: hearing grossly normal bilaterally General nose exam: Normal external nose present Face and sinus: Yes normal facial exam Mouth: Normal oral and palatal mucosa present Throat: Yes posterior oropharynx normal Eyes Conjunctivae: conjunctivae normal Pupils: Equal, round and reactive pupils present EOM: EOMs intact bilaterally Neck Neck: Yes normal visual inspection, Yes full ROM, Yes no lymphadenopathy, Yes no meningeal signs, Yes trachea midline and Yes supple Resp Effort & Inspection: able to speak in complete sentences, audible wheezes, Actively coughing Quality: wet, no nasal flaring, no pursed lip breathing, no respiratory distress and tachypneic Auscultation: rales, rhonchi and wheezes Cardio Rate: regular rate Rhythm: regular rhythm Heart sounds: S1 normal heart sound present and S2 normal heart sound present GI Inspection: Yes normal to inspection Palpation (GI): Soft to palpation, not firm, nontender, no guarding and not rigid Percussion: Yes normal to percussion Auscultation: normal bowel sounds Skin General skin exam: no rashes or lesions noted Neuro General: patient oriented x3, no meningeal signs and No confusion Cranial nerves: Yes Equal, round and reactive pupils present Extrem General: Yes normal to inspection and Yes full ROM Psych Appearance: grossly normal Mental Status: mental status grossly normal Speech and movement: Normal speech and movement present Affect: normal affect Course Course Course Narrative: 80-year-old female with a past medical history of COPD, CHF, pneumonia, diabetes, anemia, hyperlipidemia, osteoarthritis of multiple joints, acute kidney failure, and hypothyroidism, presents for about 2 weeks of worsening cough. Patient was discharged from [facility] on September 03, 16 days go, where she was treated for pneumonia. On exam, patient initially tachycardic, rectal temp 99.6 degrees, hemodynamically stable. Patient has audible wheezes and rhonchi, auscultation reveals fine rales, rhonchi, wheezes in all lung wallace. Will get blood cultures, lactic, troponin, EKG, labs, chest x-ray. Gave solumedrol, breathing treatment. Will treat empirically for hospital-acquired pneumonia. Patient has had antibiotics in the last 90 days. Reevaluation(s) Reevaluation #1: No leukocytosis, platelets 149, creatinine 1.77. Lactic 1.2, troponin 6.3, EKG shows no acute ischemia. COVID negative . Chest x-ray shows no consolidation, most likely this is a COPD exacerbation, with possible worsening CHF. No LE edema. Will see what BNP shows. FINDINGS: The lungs are well-expanded and clear of acute pneumonic process. Bilateral increased mild interstitial markings similar to previous study is noted. There is platelike atelectasis left lung base with mild eventration of left hemidiaphragm. Heart size and pulmonary vascularity is normal. XR/XR chest 2V IMPRESSION: Hypoexpanded lungs without acute process. Chronic mild prominent interstitial changes likely chronic unchanged. Reevaluation #2: On repeat exam, patient is not audibly wheezing with rhonchi, but still has rhonchi to auscultation. She feels a little better. Still coughing Added laboratory test of BNP and VBG. Will discuss admission with hospitalist. Patient has a new oxygen requirement and is satting 93% on 2 L. Reevaluation #3: VBG normal, BNP is norml at 49. Medical Decision Making Lab Data Result diagrams: 09/21/21 11:02 09/21/21 11:02 Labs: Lab Results 09/21/21 09/21/21 09/21/21 Range/Units 11:02 11:02 11:02 WBC 6.8 (4.8-10.8) X10*3/uL RBC 3.56 L (4.20-5.50) X10*6/uL Hgb 11.6 L (12.0-16.0) g/dl Hct 36.3 L (37.0-47.0) % MCV 102.0 H (80.0-98.0) fL MCH 32.6 (27.0-33.0) pg MCHC 32.0 (31.0-35.0) g/dl RDW 15.9 (11.0-16.0) % Plt Count 149 L D (160-400) X10*3/uL MPV 10.7 (9.4-12.3) fL Immature Gran % (Auto) 0.4 (0.0-0.4) % Neut % (Auto) 59.6 (45-73) % Lymph % (Auto) 23.0 (20-40) % [place] % (Auto) 5.7 (2-11) % Eos % (Auto) 11.0 H (0-4) % Baso % (Auto) 0.3 (0-2) % Lymph # (Auto) 1.6 (1.2-4.9) X10*3/uL [place] # (Auto) 0.4 (0.1-1.2) X10*3/uL Eos # (Auto) 0.8 H (0.0-0.4) X10*3/uL Baso # (Auto) 0.0 (0.0-0.2) X10*3/uL Abs Immat Gran (auto) 0.03 (0.00-0.03) X10*3/uL Absolute Neuts (auto) 4.0 (2.0-8.3) x10*3/uL Absolute Nucleated RBC 0.000 (0.0-0.012) X10*3/uL Nucleated RBC % (auto) 0.0 (0.0-0.2) /100WBC VBG pH (7.32-7.43) VBG pCO2 mmHg VBG pO2 mmHg VBG HCO3 (22-26) mmol/L VBG O2 Saturation % VBG Base Excess mmol/L Sodium 138 (135-145) mmol/L Potassium 4.5 (3.3-5.1) mmol/L Chloride 105 (96-108) mmol/L Carbon Dioxide 24 (22-29) mmol/L Anion Gap 14 (12-20) BUN 20 H D (9-16) mg/dL Creatinine 1.77 H (0.5-1.4) mg/dL Estim Creat Clear Calc 28.6 Estimated GFR 27 Random Glucose 126 H (60-115) mg/dL Lactic Acid 1.2 (0.5-2.0) mmol/L Calcium 9.0 (8.4-10.2) mg/dL Total Bilirubin 1.0 (0.0-1.0) mg/dL AST 29 D (5-31) U/L ALT 19 (0-31) U/L Alkaline Phosphatase 115 (39-117) U/L Troponin I High Sens (<3.5-17.0) ng/L B-Natriuretic Peptide (<100) pg/mL Total Protein 6.3 L (6.5-8.0) g/dL Albumin 3.5 (3.5-5.0) g/dL COVID-19 (ISAAK) (Negative) COVID-19 Clin Com 09/21/21 09/21/21 09/21/21 Range/Units 11:02 11:02 11:02 WBC (4.8-10.8) X10*3/uL RBC (4.20-5.50) X10*6/uL Hgb (12.0-16.0) g/dl Hct (37.0-47.0) % MCV (80.0-98.0) fL MCH (27.0-33.0) pg MCHC (31.0-35.0) g/dl RDW (11.0-16.0) % Plt Count (160-400) X10*3/uL MPV (9.4-12.3) fL Immature Gran % (Auto) (0.0-0.4) % Neut % (Auto) (45-73) % Lymph % (Auto) (20-40) % Verm[place] % (Auto) (2-11) % Eos % (Auto) (0-4) % Baso % (Auto) (0-2) % Lymph # (Auto) (1.2-4.9) X10*3/uL [place] # (Auto) (0.1-1.2) X10*3/uL Eos # (Auto) (0.0-0.4) X10*3/uL Baso # (Auto) (0.0-0.2) X10*3/uL Abs Immat Gran (auto) (0.00-0.03) X10*3/uL Absolute Neuts (auto) (2.0-8.3) x10*3/uL Absolute Nucleated RBC (0.0-0.012) X10*3/uL Nucleated RBC % (auto) (0.0-0.2) /100WBC VBG pH (7.32-7.43) VBG pCO2 mmHg VBG pO2 mmHg VBG HCO3 (22-26) mmol/L VBG O2 Saturation % VBG Base Excess mmol/L Sodium (135-145) mmol/L Potassium (3.3-5.1) mmol/L Chloride (96-108) mmol/L Carbon Dioxide (22-29) mmol/L Anion Gap (12-20) BUN (9-16) mg/dL Creatinine (0.5-1.4) mg/dL Estim Creat Clear Calc Estimated GFR Random Glucose (60-115) mg/dL Lactic Acid (0.5-2.0) mmol/L Calcium (8.4-10.2) mg/dL Total Bilirubin (0.0-1.0) mg/dL AST (5-31) U/L ALT (0-31) U/L Alkaline Phosphatase (39-117) U/L Troponin I High Sens 8.4 (<3.5-17.0) ng/L B-Natriuretic Peptide 49 (<100) pg/mL Total Protein (6.5-8.0) g/dL Albumin (3.5-5.0) g/dL COVID-19 (ISAAK) Negative (Negative) COVID-19 Clin Com See Note 09/21/21 Range/Units 13:00 WBC (4.8-10.8) X10*3/uL RBC (4.20-5.50) X10*6/uL Hgb (12.0-16.0) g/dl Hct (37.0-47.0) % MCV (80.0-98.0) fL MCH (27.0-33.0) pg MCHC (31.0-35.0) g/dl RDW (11.0-16.0) % Plt Count (160-400) X10*3/uL MPV (9.4-12.3) fL Immature Gran % (Auto) (0.0-0.4) % Neut % (Auto) (45-73) % Lymph % (Auto) (20-40) % [place] % (Auto) (2-11) % Eos % (Auto) (0-4) % Baso % (Auto) (0-2) % Lymph # (Auto) (1.2-4.9) X10*3/uL [place] # (Auto) (0.1-1.2) X10*3/uL Eos # (Auto) (0.0-0.4) X10*3/uL Baso # (Auto) (0.0-0.2) X10*3/uL Abs Immat Gran (auto) (0.00-0.03) X10*3/uL Absolute Neuts (auto) (2.0-8.3) x10*3/uL Absolute Nucleated RBC (0.0-0.012) X10*3/uL Nucleated RBC % (auto) (0.0-0.2) /100WBC VBG pH 7.42 (7.32-7.43) VBG pCO2 39 mmHg VBG pO2 122 mmHg VBG HCO3 25 (22-26) mmol/L VBG O2 Saturation 99.0 % VBG Base Excess 1.6 mmol/L Sodium (135-145) mmol/L Potassium (3.3-5.1) mmol/L Chloride (96-108) mmol/L Carbon Dioxide (22-29) mmol/L Anion Gap (12-20) BUN (9-16) mg/dL Creatinine (0.5-1.4) mg/dL Estim Creat Clear Calc Estimated GFR Random Glucose (60-115) mg/dL Lactic Acid (0.5-2.0) mmol/L Calcium (8.4-10.2) mg/dL Total Bilirubin (0.0-1.0) mg/dL AST (5-31) U/L ALT (0-31) U/L Alkaline Phosphatase (39-117) U/L Troponin I High Sens (<3.5-17.0) ng/L B-Natriuretic Peptide (<100) pg/mL Total Protein (6.5-8.0) g/dL Albumin (3.5-5.0) g/dL COVID-19 (ISAAK) (Negative) COVID-19 Clin Com ECG Data Interpretation: Sinus at a rate of 80, normal axis, PA interval 200, QRS 68, QTC 435, no ST elevations or depressions, no T-wave abnormalities Discharge Plan Discharge Clinical Impression: COPD exacerbation Patient Disposition: Admitted As Inpatient
--- NOTE | 2021-09-21 10:57 | ECG_ITS ---
Test Reason : SOB Blood Pressure : / mmHG Vent. Rate : 080 BPM Atrial Rate : 080 BPM P-R Int : 200 ms QRS Dur : 068 ms QT Int : 378 ms P-R-T Axes : 041 001 026 degrees QTc Int : 435 ms Normal sinus rhythm Inferior infarct (cited on or before 27-AUG-2021) Abnormal ECG When compared with ECG of 27-AUG-2021 17:54, Aberrant conduction is no longer Present Referred By: Yessy Oscar Electronically Signed By:FRANCESCA HARTMANN MD
[2021-09-21 11:08] LABS: MANUAL DIFF FLAG NO
[2021-09-21 11:19] LABS: Basophils Percent Auto 0.3 % (0-2); Eosinophils Absolute Auto 0.8 X10*3/uL (0.0-0.4); Hematocrit 36.3 % (37.0-47.0); Hemoglobin 11.6 g/dl (12.0-16.0); Imm Gran Abs Auto 0.03 X10*3/uL (0.00-0.03); Imm Gran Pct Auto 0.4 % (0.0-0.4); Lymphocytes Absolute Auto 1.6 X10*3/uL (1.2-4.9); Mean Corpuscular Hemoglobin 32.6 pg (27.0-33.0); Mean Platelet Volume 10.7 fL (9.4-12.3); Monocytes Absolute Auto 0.4 X10*3/uL (0.1-1.2); Monocytes Percent Auto 5.7 % (2-11); Neutrophils Percent Auto 59.6 % (45-73); Platelet Count 149 X10*3/uL (160-400); Red Blood Count 3.56 X10*6/uL (4.20-5.50); Red Cell Distribution Width 15.9 % (11.0-16.0); White Blood Count 6.8 X10*3/uL (4.8-10.8)
[2021-09-21 11:20] LABS: Lactic Acid 1.2 mmol/L (0.5-2.0)
[2021-09-21 11:23] LABS: COVID-19 Test Negative (Negative); IDNOW Serial# 16C4AD1C
[2021-09-21] MEDS: methylPREDNISolone Sod Succ 125 MG/2 ML VIAL IVPUSH (11:23)
[2021-09-21 11:26] LABS: Alanine Aminotransferase 19 U/L (0-31); Albumin Level 3.5 g/dL (3.5-5.0); Alkaline Phosphatase 115 U/L (39-117); Anion Gap 14 (12-20); Aspartate Amino Transferase 29 U/L (5-31); Blood Urea Nitrogen 20 mg/dL (9-16); Carbon Dioxide 24 mmol/L (22-29); Chloride 105 mmol/L (96-108); Creatinine Clr Calc Pharmacy 28.6; Estimated Glomerular Filt Rate 27; Glucose Random 126 mg/dL (60-115); Potassium 4.5 mmol/L (3.3-5.1); Sodium 138 mmol/L (135-145); Total Protein 6.3 g/dL (6.5-8.0)
[2021-09-21] MEDS: Albuterol/Iprat 2.5/0.5MG 3 ML AMPUL.NEB INHALE ×3 (11:26→19:39)
[2021-09-21 11:31] LABS: Troponin-I High Sensitivity 8.4 ng/L (<3.5-17.0)
--- NOTE | 2021-09-21 11:34 | HE.PHANOTE ---
confirmed patient weight with MADAY Breen.
--- NOTE | 2021-09-21 11:37 | PHA.PROG ---
Admission Date/Time: Indication: HAP Weight in k.5 kg Adjusted body weight in K.86 kg [place] body weight in Kg: Obesity Dosing Indication % IBW: Serum Creatinine - Last 168 Hours 09/21/21 11:02 Creatinine 1.77 H Estimated CrCl and GFR - Last 168 Hours 09/21/21 11:02 Estim Creat Clear Calc 28.6 Estimated GFR 27 Vancomycin Loading Dose: 1750 mg x1 dose Current Vancomycin Dosing Regimen: 500 mg q24h Vancomycin Monitoring using AUC goal of 400 - 600 range with trough as surrogate marker: Model is predicting a AUC of 427 and a trough of 14.3. Date and Time for next Vancomycin Level to be drawn: 09/23 @ 1400 Pharmacist Comments on Vancomycin Plan: Continue to monitor DEVIN and Scr. Vancomycin dosing will take advantage of Spectrum5 as a clinical decision support tool that uses Bayesian modeling to calculate individual patient's pharmacokinetic parameters and forecast the patient's drug concentration time course with the target goal AUC 24 range of 400 - 600 mg/L/hr.
[2021-09-21] MEDS: Piperacillin Sodium/Tazobactam 4.5 GM in 0.9 % Sodium Chloride 100 ML IV (11:58)
[2021-09-21 12:36] LABS: B Type Natriuretic Peptide 49 pg/mL (<100)
[2021-09-21 13:07] LABS: Venous Blood Gas Refer to POC result
[2021-09-21 13:07] LABS: VBG Base Excess 1.6 mmol/L; VBG HCO3 25 mmol/L (22-26); VBG pCO2 39 mmHg; VBG pH 7.42 (7.32-7.43); VBG pO2 122 mmHg
[2021-09-21] MEDS: vancomycin HCL 1,000 MG, vancomycin HCL 750 MG in 0.9 % Sodium Chloride 500 ML 267.5 MG IV (13:24)
--- NOTE | 2021-09-21 13:40 | PC.NURSE ---
Pt is alert and oriented, seen by hospitalist, admit for COPD exacerbation. Pt resting with eyes closed, increased SOB and work of breathing with exertion. Tolerating 2lpm via nc, sat 93-94%. Congested cough, LS coarse wheezes throughout but improved s/p updraft given. Speaking full sentences.
--- NOTE | 2021-09-21 13:46 | PM.IMHP ---
History of Present Illness Date of Service: 09/21/21 Chief Complaint: for difficulty breathing, wheezing an 80 years old lady with PMH of COPD, hypothyroidism, CKD4 , gout among others who presents to the hospital with worsening shortness of breath and wheezes for the last 3 days. The patient was treated recently for pneumonia inpatient and has been doing fairly okay at home which she moves without using a cane or a walker. For the last 3 days she noticed worsening shortness of breath and worsening wheezes. She lost her nebulizer machine when she moved recently and she has been using her inhalers more frequently. In the emergency she was found to be hypoxic and placed on oxygen supplement. Chest x-ray did not show any clear infiltrates. She received nebulizer treatment and antibiotic. Will be admitted for further evaluation treatment. Review of Systems Review of Systems: No fever, chills or weakness No chest pain, palpitation Reporting dyspnea and episodes of coughing with wheezing No abdominal pain, nausea or vomiting No urinary symptoms No any rash or wounds [facility] Medical History Acquired hypothyroidism COPD (chronic obstructive pulmonary disease) Diabetes Dyslipidemia Fibromyalgia Heart murmur Kidney failure, acute Osteoarthritis of multiple joints Family History Brother Substance use disorder Son Substance use disorder Daughter Substance use disorder Surgical History H/O hemorrhoidectomy Hx of fusion of cervical spine Hx of tonsillectomy S/P anal fissurectomy S/P appendectomy S/P partial hysterectomy Social History Household Members: Family and Children Housing: House Do you presently have visiting nurse or other home services: No Alcohol intake: never Patient Tobacco Use Status: Former Tobacco user Quit Date: 15 yrs ago Tobacco use type: Cigarette Cigarettes Per Day: 5 e-Cigarette/Vaping Use: Never Used Second Hand Smoke Exposure: No Use of substances other than those prescribed or required for medical reasons: No Advance Directives: No Advance Directives Date on File: 08/28/21 service: No Current occupational status: retired Meds Allergies Allergy/AdvReac Type Severity Reaction Status Date / Time NSAIDS (Non-Steroidal Allergy Unknown Verified 09/17/21 11:11 Anti-Inflamma Active Medications: Current Medications Acetaminophen (Acetaminophen 325 Mg Tablet) 650 mg PO Q6H PRN PRN Reason: Pain, Mild (Pain Scale 1-3) Albuterol Sulfate (Albuterol Sulfate (0.083%) 2.5 Mg/3 Ml Vial.Neb) 2.5 mg INHALE RQ4H PRN PRN Reason: Shortness of Breath/Wheezing Albuterol/Ipratropium (Albuterol/Iprat 2.5/0.5mg 3 Ml Ampul.Neb) 3 ml INHALE RQ4H WHILE AWAKE [facility] Allopurinol (Allopurinol 300 Mg Tablet) 300 mg PO DAILY [facility] Ezetimibe (Ezetimibe 10 Mg Tablet) 10 mg PO DAILY [facility] Enoxaparin Sodium (Enoxaparin Sodium 40 Mg/0.4 Ml Syringe) 40 mg SUBCUT Q24H INGRID Furosemide (Furosemide 40 Mg Tablet) 40 mg PO BIDWM INGRID; Protocol Gabapentin (Gabapentin 300 Mg Capsule) 600 mg PO Q8H INGRID Levofloxacin (Levaquin) 750 mg in 150 mls @ 100 mls/hr IV Q24H INGRID Vancomycin HCl 500 mg/ Sodium (Chloride) 110 mls @ 110 mls/hr IV Q24H [facility] Levothyroxine Sodium (Levothyroxine Sodium 100 Mcg Tablet) 100 mcg PO DAILY [facility] Methylprednisolone Sodium Succinate (Methylprednisolone Sod Succ 40 Mg/Ml Vial) 40 mg IVPUSH Q12H [facility] Omeprazole (Omeprazole 40 Mg Capsule.Dr) 40 mg PO DAILY@0630 [facility] Ondansetron HCl (Ondansetron Hcl 4 Mg/2 Ml Vial) 4 mg IVPUSH Q8H PRN PRN Reason: Nausea and Vomiting Pharmacy Consult (Consult Rx Vancomycin Dosing) 1 each MISCELLANE DAILY PRN PRN Reason: Consult order Pharmacy Consult (Consult Rx Perform Med Rec) 1 each MISCELLANE ONCE PRN PRN Reason: Consult order Pramipexole Dihydrochloride (Pramipexole Di-Hcl 0.25 Mg Tablet) 0.25 mg PO BEDTIME [facility] Sodium Chloride (0.9 % Sodium Chloride Flush 3 Ml Syringe) 3 ml IVFLUSH QSHIFT [facility] Home Medications Medication Instructions Recorded Confirmed Last Taken Type Trelegy Ellipta 1 puff INHALATION DAILY 08/27/21 09/21/21 Unknown History albuterol sulfate 90 mcg/actuation 2 inh INHALATION Q4H PRN 08/27/21 09/21/21 Unknown History aerosol inhaler allopurinol 300 mg tablet 1 tab PO DAILY 08/27/21 09/21/21 08/27/21 History calcipotriene 0.005 % topical 1 appl TOPICAL BID 08/27/21 09/21/21 Unknown History ointment ezetimibe 10 mg tablet 1 tab PO DAILY 08/27/21 09/21/21 08/27/21 History furosemide 40 mg tablet 1 tab PO BIDWM 08/27/21 09/21/21 08/27/21 History ipratropium 0.5 mg-albuterol 3 mg 3 ml INHALATION Q4H PRN 08/27/21 09/21/21 Unknown History (2.5 mg base)/3 mL nebulization soln levothyroxine 100 mcg tablet 1 tab PO DAILY 08/27/21 09/21/21 08/27/21 History pantoprazole 40 mg tablet,delayed 1 tab PO DAILY 08/27/21 09/21/21 08/27/21 History release pramipexole 0.25 mg tablet 1 tab PO BEDTIME 08/27/21 09/21/21 08/24/21 History citalopram 20 mg tablet 40 mg PO DAILY tab 09/13/21 09/21/21 Unknown History gabapentin 300 mg capsule 600 mg PO Q8H cap 09/13/21 09/21/21 Unknown History Physical Exam Vital Signs and Narrative: Vital Signs: Last Vital Signs Temp 99.6 F 09/21/21 10:43 Pulse 95 09/21/21 13:31 Resp 20 09/21/21 13:31 BP 133/53 L 09/21/21 13:31 Pulse Ox 94 09/21/21 13:31 BMI result Body Mass Index 44.1 Results Labs CBC and Chem 7: 09/21/21 11:02 09/21/21 11:02 Labs: Laboratory Results - last 24 hr 09/21/21 09/21/21 09/21/21 11:02 11:02 11:02 MCV 102.0 H MCH 32.6 MCHC 32.0 RDW 15.9 Plt Count 149 L D MPV 10.7 Immature Gran % (Auto) 0.4 Neut % (Auto) 59.6 Lymph % (Auto) 23.0 [place] % (Auto) 5.7 Eos % (Auto) 11.0 H Baso % (Auto) 0.3 Lymph # (Auto) 1.6 [place] # (Auto) 0.4 Eos # (Auto) 0.8 H Baso # (Auto) 0.0 Abs Immat Gran (auto) 0.03 Absolute Neuts (auto) 4.0 Absolute Nucleated RBC 0.000 Nucleated RBC % (auto) 0.0 VBG pH VBG pCO2 VBG pO2 VBG HCO3 VBG O2 Saturation VBG Base Excess Anion Gap 14 Estim Creat Clear Calc 28.6 Estimated GFR 27 Random Glucose 126 H Lactic Acid 1.2 Calcium 9.0 Total Bilirubin 1.0 AST 29 D ALT 19 Alkaline Phosphatase 115 B-Natriuretic Peptide Total Protein 6.3 L Albumin 3.5 COVID-19 (ISAAK) COVID-19 NxThera 09/21/21 09/21/21 09/21/21 11:02 11:02 13:00 MCV MCH MCHC RDW Plt Count MPV Immature Gran % (Auto) Neut % (Auto) Lymph % (Auto) [place] % (Auto) Eos % (Auto) Baso % (Auto) Lymph # (Auto) [place] # (Auto) Eos # (Auto) Baso # (Auto) Abs Immat Gran (auto) Absolute Neuts (auto) Absolute Nucleated RBC Nucleated RBC % (auto) VBG pH 7.42 VBG pCO2 39 VBG pO2 122 VBG HCO3 25 VBG O2 Saturation 99.0 VBG Base Excess 1.6 Anion Gap Estim Creat Clear Calc Estimated GFR Random Glucose Lactic Acid Calcium Total Bilirubin AST ALT Alkaline Phosphatase B-Natriuretic Peptide 49 Total Protein Albumin COVID-19 (ISAAK) Negative COVID-19 Clin Com See Note Imaging Radiologist's Impressions: Impressions Chest X-Ray 09/21/21 10:58 IMPRESSION: Hypoexpanded lungs without acute process. Chronic mild prominent interstitial changes likely chronic unchanged. Assessment and Plan (1) COPD exacerbation: Status: Acute (2) Acute respiratory failure with hypoxia: Status: Acute Plan an 80 years old lady with PMH of COPD, hypothyroidism, CKD4 , gout among others who presents to the hospital with worsening shortness of breath and wheezes for the last 3 days. acute hypoxic respiratory failure Secondary to COPD exacerbation CXR negative for infiltrates The start duo nebs around the clock Use albuterol as needed Methylprednisone 40 mg b.i.d. To use azithromycin orally starting tomorrow Wean oxygen down as tolerated Hypothyroidism Continue levothyroxine GERD Continue omeprazole Continue the rest of her home medications DVT PPX Lovenox the patient needs to midnight hospital stay for treatment of acute hypoxic respiratory failure COPD exacerbation. Quality Stroke Does the patient have a stroke diagnosis?: No VTE Prior VTE?: No VTE Risk Level:: Medical - moderate - high VTE Device Contraindication: Treatment Not Indicated VTE Drug Contraindication: N/A - Med Ordered
[2021-09-21] MEDS: Gabapentin 300 MG CAPSULE 600 MG PO ×2 (15:18→21:41)
[2021-09-21] MEDS: Enoxaparin Sodium 30 MG/0.3 ML SYRINGE SUBCUT (15:18)
--- NOTE | 2021-09-21 15:22 | PC.NURSE ---
Vanco continues to infuse, will start levaquin when completed. Zoysn took longer than ordered d/t positional IV
[2021-09-21] MEDS: levoFLOXacin/D5W 750 MG/150 ML PIGGYBACK 100 MG IV (16:42)
[2021-09-21 16:58] LABS: Glucose, Whole Blood 240 mg/dL (60-115)
[2021-09-21] MEDS: Furosemide 40 MG TABLET PO (18:31)
[2021-09-21] MEDS: Pramipexole Di-HCL 0.25 MG TABLET PO (21:41)
[2021-09-21] MEDS: traZODone HCL 25 MG HALFTAB PO (21:41)
[2021-09-22] VITALS (10 sets, daily range): BP systolic 94–120; BP diastolic 42–58; PULSE 92–101; RESP 16–22; TEMP 36.5–36.9; O2SAT 95–99
[2021-09-22] MEDS: 0.9 % Sodium Chloride Flush 3 ML SYRINGE IVFLUSH ×4 (00:21→21:39)
[2021-09-22] MEDS: Gabapentin 300 MG CAPSULE 600 MG PO ×3 (06:18→21:39)
[2021-09-22] MEDS: Omeprazole 40 MG CAPSULE.DR PO (06:18)
[2021-09-22 07:03] LABS: Hematocrit 34.6 % (37.0-47.0); Mean Corpuscular HGB Conc 31.8 g/dl (31.0-35.0); Mean Corpuscular Hemoglobin 32.4 pg (27.0-33.0); Mean Corpuscular Volume 102.1 fL (80.0-98.0); Mean Platelet Volume 10.8 fL (9.4-12.3); Platelet Count 159 X10*3/uL (160-400); Red Blood Count 3.39 X10*6/uL (4.20-5.50); Red Cell Distribution Width 15.6 % (11.0-16.0)
[2021-09-22 07:17] LABS: Anion Gap 19 (12-20); Blood Urea Nitrogen 32 mg/dL (9-16); Carbon Dioxide 22 mmol/L (22-29); Chloride 101 mmol/L (96-108); Creatinine Clr Calc Pharmacy 20.9; Estimated Glomerular Filt Rate 19; Glucose Random 201 mg/dL (60-115); Potassium 4.8 mmol/L (3.3-5.1); Sodium 137 mmol/L (135-145)
[2021-09-22] MEDS: Albuterol/Iprat 2.5/0.5MG 3 ML AMPUL.NEB INHALE ×4 (07:48→19:50)
[2021-09-22] MEDS: Ezetimibe 10 MG TABLET PO (08:05)
[2021-09-22] MEDS: methylPREDNISolone Sod Succ 40 MG/ML VIAL IVPUSH ×2 (08:05→21:39)
[2021-09-22] MEDS: Furosemide 40 MG TABLET PO ×2 (08:06→16:08)
[2021-09-22] MEDS: allopurinoL 300 MG TABLET PO (08:06)
--- NOTE | 2021-09-22 08:30 | PC.NURSE ---
pt a&o x3, assisted to bedside commode, medicated per provider order. one medication not yet in Pyxis.
[2021-09-22] MEDS: Azithromycin 500 MG TABLET PO (09:48)
--- NOTE | 2021-09-22 09:57 | PC.NURSE ---
medicated per provider order, vss, will continue to monitor.
--- NOTE | 2021-09-22 11:18 | HO.PM.IMPN ---
Subjective Subjective Date of Service: 09/22/21 Interval History: Chief complaint, shortness of breath Patient still complaining of difficulty breathing very minimal physical activity Feels little better than yesterday but still wheezy and dyspneic Review of Systems No fever, chills or weakness No chest pain, palpitation Reporting dyspnea and episodes of coughing with wheezing No abdominal pain, nausea or vomiting No urinary symptoms No any rash or wounds Physical Exam Vital Signs: Vital Signs: Last Vital Signs Temp 98.0 F 09/22/21 00:26 Pulse 97 09/22/21 09:54 Resp 18 09/22/21 09:54 BP 120/42 L 09/22/21 09:54 Pulse Ox 95 09/22/21 09:54 BMI result Body Mass Index 44.1 Const: Other: Constitutional : Alert, oriented, in mild respiratory distress Neck : Normal inspection, Supple Cardiovascular : RRR, S1 S2, no lower extremity edema Respiratory : decrease bilateral air entry, no crackles, bilateral scattered wheezes, on oxygen supplement Gastrointestinal: soft, lax, Normal bowel sounds, Non tender Skin : Warm, Dry Neurological : Alert & oriented x3, No focal deficit Objective Data Active Medications Acetaminophen (Acetaminophen 325 Mg Tablet) 650 mg PO Q6H PRN PRN Reason: Pain, Mild (Pain Scale 1-3) Albuterol Sulfate (Albuterol Sulfate (0.083%) 2.5 Mg/3 Ml Vial.Neb) 2.5 mg INHALE RQ4H PRN PRN Reason: Shortness of Breath/Wheezing Albuterol/Ipratropium (Albuterol/Iprat 2.5/0.5mg 3 Ml Ampul.Neb) 3 ml INHALE RQ4H WHILE AWAKE [facility] Last Admin: 09/22/21 07:48 Dose: 3 ml Documented by: ODILIA Allopurinol (Allopurinol 300 Mg Tablet) 300 mg PO DAILY [facility] Last Admin: 09/22/21 08:06 Dose: 300 mg Documented by: POLY Azithromycin (Azithromycin 250 Mg Tablet) 250 mg PO Q24H [facility] Ezetimibe (Ezetimibe 10 Mg Tablet) 10 mg PO DAILY [facility] Last Admin: 09/22/21 08:05 Dose: 10 mg Documented by: POLY Enoxaparin Sodium (Enoxaparin Sodium 30 Mg/0.3 Ml Syringe) 30 mg SUBCUT Q24H [facility] Last Admin: 09/21/21 15:18 Dose: 30 mg Documented by: ESVIN Furosemide (Furosemide 40 Mg Tablet) 40 mg PO BIDWM [facility]; Protocol Last Admin: 09/22/21 08:06 Dose: 40 mg Documented by: POLY Gabapentin (Gabapentin 300 Mg Capsule) 600 mg PO Q8H [facility] Last Admin: 09/22/21 06:18 Dose: 600 mg Documented by: JNOATHON Levofloxacin (Levaquin) 750 mg in 150 mls @ 100 mls/hr IV Q24H [facility] Last Infusion: 09/21/21 18:31 Dose: 0 mls/hr Documented by: ESVIN Levothyroxine Sodium (Levothyroxine Sodium 100 Mcg Tablet) 100 mcg PO DAILY@0630 [facility] Last Admin: 09/22/21 06:25 Dose: Not Given Documented by: JONATHON Non-Admin Reason: Med Not Available Methylprednisolone Sodium Succinate (Methylprednisolone Sod Succ 40 Mg/Ml Vial) 40 mg IVPUSH Q12H [facility] Last Admin: 09/22/21 08:05 Dose: 40 mg Documented by: POLY Omeprazole (Omeprazole 40 Mg Capsule.Dr) 40 mg PO DAILY@0630 [facility] Last Admin: 09/22/21 06:18 Dose: 40 mg Documented by: JONATHON Ondansetron HCl (Ondansetron Hcl 4 Mg/2 Ml Vial) 4 mg IVPUSH Q8H PRN PRN Reason: Nausea and Vomiting Pharmacy Consult (Consult Rx Vancomycin Dosing) 1 each MISCELLANE DAILY PRN PRN Reason: Consult order Pharmacy Consult (Consult Rx Perform Med Rec) 1 each MISCELLANE ONCE PRN PRN Reason: Consult order Pramipexole Dihydrochloride (Pramipexole Di-Hcl 0.25 Mg Tablet) 0.25 mg PO BEDTIME [facility] Last Admin: 09/21/21 21:41 Dose: 0.25 mg Documented by: CURTIS Sodium Chloride (0.9 % Sodium Chloride Flush 3 Ml Syringe) 3 ml IVFLUSH QSHIFT [facility] Last Admin: 09/22/21 08:05 Dose: 3 ml Documented by: POLY Labs CBC & Chem 7: 09/22/21 06:24 03/13/22 06:24 Labs: Laboratory Results - last 24 hr 09/21/21 09/21/21 09/21/21 11:02 11:02 11:02 MCV 102.0 H MCH 32.6 MCHC 32.0 RDW 15.9 Plt Count 149 L D MPV 10.7 Immature Gran % (Auto) 0.4 Neut % (Auto) 59.6 Lymph % (Auto) 23.0 [place] % (Auto) 5.7 Eos % (Auto) 11.0 H Baso % (Auto) 0.3 Lymph # (Auto) 1.6 [place] # (Auto) 0.4 Eos # (Auto) 0.8 H Baso # (Auto) 0.0 Abs Immat Gran (auto) 0.03 Absolute Neuts (auto) 4.0 Absolute Nucleated RBC 0.000 Nucleated RBC % (auto) 0.0 VBG pH VBG pCO2 VBG pO2 VBG HCO3 VBG O2 Saturation VBG Base Excess Anion Gap 14 Estim Creat Clear Calc 28.6 Estimated GFR 27 POC Glucose Random Glucose 126 H Lactic Acid 1.2 Calcium 9.0 Total Bilirubin 1.0 AST 29 D ALT 19 Alkaline Phosphatase 115 B-Natriuretic Peptide Total Protein 6.3 L Albumin 3.5 COVID-19 (ISAAK) COVID-[employer] 09/21/21 09/21/21 09/21/21 11:02 11:02 13:00 MCV MCH MCHC RDW Plt Count MPV Immature Gran % (Auto) Neut % (Auto) Lymph % (Auto) [place] % (Auto) Eos % (Auto) Baso % (Auto) Lymph # (Auto) [place] # (Auto) Eos # (Auto) Baso # (Auto) Abs Immat Gran (auto) Absolute Neuts (auto) Absolute Nucleated RBC Nucleated RBC % (auto) VBG pH 7.42 VBG pCO2 39 VBG pO2 122 VBG HCO3 25 VBG O2 Saturation 99.0 VBG Base Excess 1.6 Anion Gap Estim Creat Clear Calc Estimated GFR POC Glucose Random Glucose Lactic Acid Calcium Total Bilirubin AST ALT Alkaline Phosphatase B-Natriuretic Peptide 49 Total Protein Albumin COVID-19 (ISAAK) Negative [facility] Com See Note 09/21/21 09/22/21 09/22/21 16:50 06:24 06:24 MCV 102.1 H MCH 32.4 MCHC 31.8 RDW 15.6 Plt Count 159 L MPV 10.8 Immature Gran % (Auto) Neut % (Auto) Lymph % (Auto) [place] % (Auto) Eos % (Auto) Baso % (Auto) Lymph # (Auto) [place] # (Auto) Eos # (Auto) Baso # (Auto) Abs Immat Gran (auto) Absolute Neuts (auto) Absolute Nucleated RBC 0.000 Nucleated RBC % (auto) 0.0 VBG pH VBG pCO2 VBG pO2 VBG HCO3 VBG O2 Saturation VBG Base Excess Anion Gap 19 Estim Creat Clear Calc 20.9 Estimated GFR 19 POC Glucose 240 H Random Glucose 201 H Lactic Acid Calcium 9.0 Total Bilirubin AST ALT Alkaline Phosphatase B-Natriuretic Peptide Total Protein Albumin COVID-19 (ISAAK) COVID-19 Clin Com Assessment and Plan (1) Acute respiratory failure with hypoxia: Status: Acute (2) COPD exacerbation: Status: Acute Plan an 80 years old lady with PMH of COPD, hypothyroidism, CKD4 , gout among others who presents to the hospital with worsening shortness of breath and wheezes for the last 3 days. acute hypoxic respiratory failure Secondary to COPD exacerbation CXR negative for infiltrates continue duo nebs around the clock Use albuterol as needed continue Methylprednisone 40 mg b.i.d. continue azithromycin orally daily Wean oxygen down as tolerated Hypothyroidism Continue levothyroxine GERD Continue omeprazole Continue the rest of her home medications DVT PPX Lovenox the patient needs to midnight hospital stay for treatment of acute hypoxic respiratory failure COPD exacerbation. Quality Stroke Does the patient have a stroke diagnosis?: No VTE Prior VTE?: No VTE Risk Level:: Medical - moderate - high VTE Device Contraindication: Treatment Not Indicated VTE Drug Contraindication: N/A - Med Ordered
[2021-09-22] MEDS: levoFLOXacin/D5W 750 MG/150 ML PIGGYBACK 100 MG IV (11:59)
--- NOTE | 2021-09-22 12:02 | PC.NURSE ---
medicated per provider order.
--- NOTE | 2021-09-22 12:33 | PC.NURSE ---
medicated per provider order, IV infiltrated, new 20G IV placed left wrist, restarted medication.
[2021-09-22] MEDS: Enoxaparin Sodium 30 MG/0.3 ML SYRINGE SUBCUT (13:52)
--- NOTE | 2021-09-22 13:53 | MHC.CM.PN ---
IMM 09/22/21, EMR REVIEWED, PT AD,ITTED W/COPD EXAC, CM MET W/PT WHO IS A&O, PT REPORTS SHE MOVED BACK TO [facility] A FEW MONTHS AGO TO LIVE W/DTR AFTER HER S.O. HAD TO GO TO LTC D/T DEMENTIA. PT REPORTS SHE IS INDEPENDENT W/CARE, HAS A CANE BUT DOESN'T USE IT AND HAS A NEBULIZER, PT REPORTS SHE WAS TAKEN OFF HER DIABETIC MEDICATION TO BS'S BEING TOO LOW, PT REPORTS SHE IS OPEN TO VNA SERVICES IF RECOMMENDED, REFERRAL PLACED TO [facility] IN [place] PT WILL NEED SERVICE, PCP VERIFIED SASKIA CASON, PT REPORTS SHE HAS A HCP HOWEVER WANTED TO DO A NEW ONE HERE IN [facility], PT DID COMPLETE HCP W/THIS CM, PT PROVIDED W/EDUCATIONAL HANDOUT, ORIGINAL AND 2 COPIES, COPY UPLOADED TO [employer] AND PLACED IN CHART. D/C PLAN: HOME VS HOME W/NEW VNA, DTR OF [facility] FOR TRANSPORT MODERNA VACCINE X3 HCP: EMMANUEL SMALLS (DTR) [phone] ALTERNATE: NANI KAUR (SON) [phone]
--- NOTE | 2021-09-22 14:08 | PC.NURSE ---
pt medicated per provider order, daughter brought in creams that pt uses for foot neuropathy (non-formulary) - ok'd by provider, pharmacy notified. Formula HMT-NK Calcipotriene Oint 0.005%
--- NOTE | 2021-09-22 16:32 | PC.NURSE ---
RN-RN report given to S3 nurse.
[2021-09-22 20:11] LABS: Glucose, Whole Blood 247 mg/dL (60-115)
[2021-09-22] MEDS: Pramipexole Di-HCL 0.25 MG TABLET PO (21:39)
[2021-09-23] VITALS (11 sets, daily range): BP systolic 110–140; BP diastolic 46–66; PULSE 87–111; RESP 17–20; TEMP 36.3–37; O2SAT 85–97
[2021-09-23] MEDS: Acetaminophen 325 MG TABLET 650 MG PO (00:51)
[2021-09-23] MEDS: Insulin Lispro 100 UNIT/ML 3 ML VIAL SUBCUT ×6 (01:33→21:10)
[2021-09-23] MEDS: Omeprazole 40 MG CAPSULE.DR PO (05:21)
[2021-09-23] MEDS: Gabapentin 300 MG CAPSULE 600 MG PO ×3 (05:21→21:07)
[2021-09-23] MEDS: Levothyroxine Sodium 100 MCG TABLET PO (05:21)
[2021-09-23 05:56] LABS: Hematocrit 32.1 % (37.0-47.0); Hemoglobin 10.6 g/dl (12.0-16.0); Mean Platelet Volume 10.5 fL (9.4-12.3); Platelet Count 175 X10*3/uL (160-400); Red Blood Count 3.21 X10*6/uL (4.20-5.50); Red Cell Distribution Width 15.4 % (11.0-16.0); White Blood Count 12.6 X10*3/uL (4.8-10.8)
[2021-09-23 06:11] LABS: Anion Gap 16 (12-20); Blood Urea Nitrogen 54 mg/dL (9-16); Carbon Dioxide 22 mmol/L (22-29); Chloride 99 mmol/L (96-108); Creatinine Clr Calc Pharmacy 17.3; Estimated Glomerular Filt Rate 15; Glucose Random 234 mg/dL (60-115); Potassium 5.1 mmol/L (3.3-5.1); Sodium 132 mmol/L (135-145)
[2021-09-23 07:31] LABS: Glucose, Whole Blood 197 mg/dL (60-115)
[2021-09-23 08:13] LABS: Glucose, Whole Blood 203 mg/dL (60-115)
[2021-09-23] MEDS: Albuterol/Iprat 2.5/0.5MG 3 ML AMPUL.NEB INHALE ×4 (08:13→20:26)
[2021-09-23] MEDS: allopurinoL 300 MG TABLET PO (08:27)
[2021-09-23] MEDS: methylPREDNISolone Sod Succ 40 MG/ML VIAL IVPUSH (08:27)
[2021-09-23] MEDS: Azithromycin 250 MG TABLET PO (08:27)
[2021-09-23] MEDS: Ezetimibe 10 MG TABLET PO (08:28)
[2021-09-23] MEDS: Furosemide 40 MG TABLET PO (08:28)
[2021-09-23] MEDS: 0.9 % Sodium Chloride Flush 3 ML SYRINGE IVFLUSH ×3 (08:28→21:17)
--- NOTE | 2021-09-23 09:42 | P.CDIC_ITS ---
CDI Concurrent Query Documentation Clarification: PHYSICIAN'S DOCUMENTATION REQUEST Date of Query: 09/23/21 0943 Patient Name: Ludy Atkins Admit Date: 09/21/21 Dear Doctor, A review of the medical record indicates additional documentation may be needed. Please review below and update the documentation accordingly. Clinical Indicators: Height: [] 5'2 Weight: [] 109.5 kg BMI: [] 44.2 Other Clinical Notes Supporting Significance of the BMI: Risk Factors/Clinical Indicators/Treatments If possible, please provide an associated diagnosis related to the abnormal BMI, such as: For a BMI >= 40: * Overweight * Obesity * Due to excess calories * Drug induced * Due to other cause * Severe or Morbid Obesity * With alveolar hypoventilation * Without alveolar hypoventilation Or: * BMI is not significant * Other (please specify) * Unable to determine Use of terms such as suspected, likely, concern for, or probable (associated with a specific diagnosis that is being evaluated, monitored, or treated as if it exists) are acceptable and can be coded in the inpatient setting, when documented at the time of discharge. Thank you, Suzan Esquivel RN Extension: [phone] Please use your independent medical judgment in providing your response. THIS QUERY IS PART OF THE PERMANENT MEDICAL RECORD Provider Response: Morbid Obesity
[2021-09-23 11:30] LABS: Glucose, Whole Blood 382 mg/dL (60-115)
[2021-09-23 13:31] LABS: Glucose, Whole Blood 331 mg/dL (60-115)
--- NOTE | 2021-09-23 13:40 | HO.PM.IMPN ---
Subjective Subjective Date of Service: 09/23/21 Interval History: Chief complaint, shortness of breath Patient still complaining of Dyspnea upon minimal exertion reported coughing Feels little better than yesterday but still wheezy and dyspneic Review of Systems No fever, chills or weakness No chest pain, palpitation Reporting dyspnea and episodes of coughing with wheezing No abdominal pain, nausea or vomiting No urinary symptoms No any rash or wounds Physical Exam Vital Signs: Vital Signs: Last Vital Signs Temp 97.3 F 09/23/21 11:48 Pulse 91 09/23/21 12:12 Resp 20 09/23/21 12:12 BP 117/66 09/23/21 11:48 Pulse Ox 95 09/23/21 11:48 BMI result Body Mass Index 44.1 Const: Other: Constitutional : Alert, oriented, in mild respiratory distress Neck : Normal inspection, Supple Cardiovascular : RRR, S1 S2, no lower extremity edema Respiratory : decrease bilateral air entry, no crackles, bilateral scattered wheezes, on oxygen supplement Gastrointestinal: soft, lax, Normal bowel sounds, Non tender Skin : Warm, Dry Neurological : Alert & oriented x3, No focal deficit Objective Data Active Medications Acetaminophen (Acetaminophen 325 Mg Tablet) 650 mg PO Q6H PRN PRN Reason: Pain, Mild (Pain Scale 1-3) Last Admin: 09/23/21 00:51 Dose: 650 mg Documented by: JOSE Acetaminophen/Codeine Phosphate (Acetaminophen With Codeine # 3 Tablet) 1 tab PO Q4H PRN PRN Reason: Cough Last Admin: 09/23/21 13:31 Dose: 1 tab Documented by: GEO Albuterol Sulfate (Albuterol Sulfate (0.083%) 2.5 Mg/3 Ml Vial.Neb) 2.5 mg INHALE RQ4H PRN PRN Reason: Shortness of Breath/Wheezing Albuterol/Ipratropium (Albuterol/Iprat 2.5/0.5mg 3 Ml Ampul.Neb) 3 ml INHALE RQ4H WHILE AWAKE [facility] Last Admin: 09/23/21 12:04 Dose: 3 ml Documented by: LOUIS Allopurinol (Allopurinol 300 Mg Tablet) 300 mg PO DAILY [facility] Last Admin: 09/23/21 08:27 Dose: 300 mg Documented by: GEO Azithromycin (Azithromycin 250 Mg Tablet) 250 mg PO Q24H [facility] Last Admin: 09/23/21 08:27 Dose: 250 mg Documented by: GEO Dextrose (Dextrose 50 % 25 Gm/50 Ml Vial) 25 gm IVPUSH Q15M PRN; Protocol PRN Reason: per Hypoglycemia Standing Ord. Ezetimibe (Ezetimibe 10 Mg Tablet) 10 mg PO DAILY [facility] Last Admin: 09/23/21 08:28 Dose: 10 mg Documented by: GEO Enoxaparin Sodium (Enoxaparin Sodium 30 Mg/0.3 Ml Syringe) 30 mg SUBCUT Q24H [facility] Last Admin: 09/22/21 13:52 Dose: 30 mg Documented by: POLY Furosemide (Furosemide 40 Mg Tablet) 40 mg PO DAILY [facility]; Protocol Gabapentin (Gabapentin 300 Mg Capsule) 600 mg PO Q8H [facility] Last Admin: 09/23/21 05:21 Dose: 600 mg Documented by: JOSE Glucose (Glucose Gel 15 Gm Gel..Gram.) 15 gm PO Q15M PRN; Protocol PRN Reason: per Hypoglycemia Standing Ord. Insulin Human Lispro (Insulin Lispro 100 Unit/Ml 3 Ml Vial) 0 unit SUBCUT QIDACHS [facility]; Protocol Last Admin: 09/23/21 11:57 Dose: 10 unit Documented by: GEO Levothyroxine Sodium (Levothyroxine Sodium 100 Mcg Tablet) 100 mcg PO DAILY@0630 [facility] Last Admin: 09/23/21 05:21 Dose: 100 mcg Documented by: JOSE Methylprednisolone Sodium Succinate (Methylprednisolone Sod Succ 40 Mg/Ml Vial) 40 mg IVPUSH Q24H [facility] Patient Own Pain (Formula Hmt-Nk) 1 each TOPICAL TID [facility] Last Admin: 09/23/21 11:58 Dose: 1 each Documented by: GEO Patient Own (Calcipotriene 0.005%) 2 each TOPICAL TID [facility] Last Admin: 09/23/21 11:58 Dose: 2 each Documented by: GEO Omeprazole (Omeprazole 40 Mg Capsule.) 40 mg PO DAILY@0630 [facility] Last Admin: 09/23/21 05:21 Dose: 40 mg Documented by: JOSE Ondansetron HCl (Ondansetron Hcl 4 Mg/2 Ml Vial) 4 mg IVPUSH Q8H PRN PRN Reason: Nausea and Vomiting Pharmacy Consult (Consult Rx Vancomycin Dosing) 1 each MISCELLANE DAILY PRN PRN Reason: Consult order Pharmacy Consult (Consult Rx Perform Med Rec) 1 each MISCELLANE ONCE PRN PRN Reason: Consult order Pramipexole Dihydrochloride (Pramipexole Di-Hcl 0.25 Mg Tablet) 0.25 mg PO BEDTIME [facility] Last Admin: 09/22/21 21:39 Dose: 0.25 mg Documented by: JOSE Sodium Chloride (0.9 % Sodium Chloride Flush 3 Ml Syringe) 3 ml IVFLUSH QSHIFT [facility] Last Admin: 09/23/21 08:28 Dose: 3 ml Documented by: COLSONYA Labs CBC & Chem 7: 09/23/21 05:30 09/23/21 05:30 Labs: Laboratory Results - last 24 hr 09/22/21 09/23/21 09/23/21 20:04 05:30 05:30 MCV 100.0 H MCH 33.0 MCHC 33.0 RDW 15.4 Plt Count 175 MPV 10.5 Absolute Nucleated RBC 0.000 Nucleated RBC % (auto) 0.0 Anion Gap 16 Estim Creat Clear Calc 17.3 Estimated GFR 15 POC Glucose 247 H Random Glucose 234 H Calcium 9.0 09/23/21 09/23/21 09/23/21 07:23 08:09 11:25 MCV MCH MCHC RDW Plt Count MPV Absolute Nucleated RBC Nucleated RBC % (auto) Anion Gap Estim Creat Clear Calc Estimated GFR POC Glucose 197 H 203 H 382 H* Random Glucose Calcium 09/23/21 13:25 MCV MCH MCHC RDW Plt Count MPV Absolute Nucleated RBC Nucleated RBC % (auto) Anion Gap Estim Creat Clear Calc Estimated GFR POC Glucose 331 H Random Glucose Calcium Microbiology Microbiology Results: Microbiology 09/21/21 11:02 Blood Culture - Preliminary Blood - Venous No growth after 48 hours. 09/21/21 11:47 Blood Culture - Preliminary Blood - Venous No growth after 24 hours. Assessment and Plan (1) Acute respiratory failure with hypoxia: Status: Acute (2) COPD exacerbation: Status: Acute Plan an 80 years old lady with PMH of COPD, hypothyroidism, CKD4 , gout among others who presents to the hospital with worsening shortness of breath and wheezes for the last 3 days. acute hypoxic respiratory failure Secondary to COPD exacerbation CXR negative for infiltrates continue duo nebs around the clock Use albuterol as needed continue Methylprednisone 40 mg b.i.d. continue azithromycin orally daily Wean oxygen down as tolerated home O2 evaluation done, patient qualifies for home oxygen Hypothyroidism Continue levothyroxine GERD Continue omeprazole Continue the rest of her home medications DVT PPX Lovenox the patient needs Another midnight hospital stay for treatment of acute hypoxic respiratory failure COPD exacerbation requiring treatment with steroids and nebulizers. Quality Stroke Does the patient have a stroke diagnosis?: No VTE Prior VTE?: No VTE Risk Level:: Medical - moderate - high VTE Device Contraindication: Treatment Not Indicated VTE Drug Contraindication: N/A - Med Ordered
--- NOTE | 2021-09-23 13:47 | PC.NURSE ---
1130 POC 382- covered with Humalog insulin 10 units per SS, notified who ordered an additional 5 units. Repeat POC 331 prior to adminstering Humalog 5 units sq at 1325
--- NOTE | 2021-09-23 14:30 | MHC.CM.PN ---
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
--- NOTE | 2021-09-23 16:29 | MHC.CLN ---
NUTRITION CONSULT FOR DIFFICULTY SWALLOWING. PATIENT DESCRIBED PAST SURGERIES THAT HAVE NARROWED HER THROAT. ABLE TO SELECT OWN FOODS THAT ARE SOFTER OR ARE IN SMALLER PIECES. OFFERS MODIFIED CONSISTENCY DIET AND PATIENT DID NOT WANT. 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 DIET=REGULAR.
[2021-09-23] MEDS: Enoxaparin Sodium 30 MG/0.3 ML SYRINGE SUBCUT (16:31)
[2021-09-23 16:46] LABS: Glucose, Whole Blood 215 mg/dL (60-115)
[2021-09-23 20:22] LABS: Glucose, Whole Blood 242 mg/dL (60-115)
[2021-09-23] MEDS: Pramipexole Di-HCL 0.25 MG TABLET PO (21:07)
[2021-09-24] VITALS (9 sets, daily range): BP systolic 117–132; BP diastolic 49–60; PULSE 83–108; RESP 15–20; TEMP 36.5–36.8; O2SAT 94–97
[2021-09-24] MEDS: Levothyroxine Sodium 100 MCG TABLET PO (05:25)
[2021-09-24] MEDS: Gabapentin 300 MG CAPSULE 600 MG PO ×3 (05:25→20:39)
[2021-09-24] MEDS: Omeprazole 40 MG CAPSULE.DR PO (05:25)
[2021-09-24 06:43] LABS: Anion Gap 16 (12-20); Blood Urea Nitrogen 68 mg/dL (9-16); Calcium 8.6 mg/dL (8.4-10.2); Carbon Dioxide 23 mmol/L (22-29); Chloride 100 mmol/L (96-108); Creatinine Clr Calc Pharmacy 15.8; Estimated Glomerular Filt Rate 14; Glucose Random 198 mg/dL (60-115); Potassium 5.2 mmol/L (3.3-5.1); Sodium 134 mmol/L (135-145)
[2021-09-24 07:39] LABS: Glucose, Whole Blood 190 mg/dL (60-115)
[2021-09-24] MEDS: allopurinoL 300 MG TABLET PO (07:53)
[2021-09-24] MEDS: Azithromycin 250 MG TABLET PO (07:53)
[2021-09-24] MEDS: Furosemide 40 MG TABLET PO (07:53)
[2021-09-24] MEDS: Ezetimibe 10 MG TABLET PO (07:54)
[2021-09-24] MEDS: methylPREDNISolone Sod Succ 40 MG/ML VIAL IVPUSH ×2 (07:54→20:39)
[2021-09-24] MEDS: Insulin Lispro 100 UNIT/ML 3 ML VIAL SUBCUT ×4 (07:54→20:38)
[2021-09-24] MEDS: 0.9 % Sodium Chloride Flush 3 ML SYRINGE IVFLUSH ×3 (08:05→20:39)
[2021-09-24] MEDS: Albuterol/Iprat 2.5/0.5MG 3 ML AMPUL.NEB INHALE ×3 (08:34→15:31)
--- NOTE | 2021-09-24 10:59 | HO.PM.IMPN ---
Subjective Subjective Date of Service: 09/24/21 Interval History: Chief complaint, shortness of breath overall improved but still complaining of Dyspnea upon minimal exertion reported coughing and right-sided chest pain Feels little better than yesterday but still wheezy and dyspneic Review of Systems No fever, chills or weakness No chest pain, palpitation Reporting dyspnea and episodes of coughing with wheezing No abdominal pain, nausea or vomiting No urinary symptoms No any rash or wounds Physical Exam Vital Signs: Vital Signs: Last Vital Signs Temp 97.8 F 09/24/21 07:13 Pulse 83 09/24/21 08:36 Resp 20 09/24/21 08:36 BP 127/60 09/24/21 07:13 Pulse Ox 96 09/24/21 07:13 BMI result Body Mass Index 44.1 Const: Other: Constitutional : Alert, oriented, in mild respiratory distress Neck : Normal inspection, Supple Cardiovascular : RRR, S1 S2, no lower extremity edema Respiratory : improved bilateral air entry, no crackles, bilateral scattered wheezes, on oxygen supplement Gastrointestinal: soft, lax, Normal bowel sounds, Non tender Skin : Warm, Dry Neurological : Alert & oriented x3, No focal deficit Objective Data Active Medications Acetaminophen (Acetaminophen 325 Mg Tablet) 650 mg PO Q6H PRN PRN Reason: Pain, Mild (Pain Scale 1-3) Last Admin: 09/23/21 00:51 Dose: 650 mg Documented by: JOSE Acetaminophen/Codeine Phosphate (Acetaminophen With Codeine # 3 Tablet) 1 tab PO Q4H PRN PRN Reason: Cough Last Admin: 09/23/21 21:09 Dose: 1 tab Documented by: JOSE Albuterol Sulfate (Albuterol Sulfate (0.083%) 2.5 Mg/3 Ml Vial.Neb) 2.5 mg INHALE RQ4H PRN PRN Reason: Shortness of Breath/Wheezing Albuterol/Ipratropium (Albuterol/Iprat 2.5/0.5mg 3 Ml Ampul.Neb) 3 ml INHALE RQ4H WHILE AWAKE [facility] Last Admin: 09/24/21 08:34 Dose: 3 ml Documented by: LOUIS Allopurinol (Allopurinol 300 Mg Tablet) 300 mg PO DAILY [facility] Last Admin: 09/24/21 07:53 Dose: 300 mg Documented by: GEO Azithromycin (Azithromycin 250 Mg Tablet) 250 mg PO Q24H [facility] Last Admin: 09/24/21 07:53 Dose: 250 mg Documented by: GEO Dextrose (Dextrose 50 % 25 Gm/50 Ml Vial) 25 gm IVPUSH Q15M PRN; Protocol PRN Reason: per Hypoglycemia Standing Ord. Ezetimibe (Ezetimibe 10 Mg Tablet) 10 mg PO DAILY [facility] Last Admin: 09/24/21 07:54 Dose: 10 mg Documented by: GEO Enoxaparin Sodium (Enoxaparin Sodium 30 Mg/0.3 Ml Syringe) 30 mg SUBCUT Q24H [facility] Last Admin: 09/23/21 16:31 Dose: 30 mg Documented by: GEO Furosemide (Furosemide 40 Mg Tablet) 40 mg PO DAILY [facility]; Protocol Last Admin: 09/24/21 07:53 Dose: 40 mg Documented by: GEO Gabapentin (Gabapentin 300 Mg Capsule) 600 mg PO Q8H [facility] Last Admin: 09/24/21 05:25 Dose: 600 mg Documented by: JOSE Glucose (Glucose Gel 15 Gm Gel..Gram.) 15 gm PO Q15M PRN; Protocol PRN Reason: per Hypoglycemia Standing Ord. Insulin Human Lispro (Insulin Lispro 100 Unit/Ml 3 Ml Vial) 0 unit SUBCUT QIDACHS [facility]; Protocol Last Admin: 09/24/21 07:54 Dose: 2 unit Documented by: GEO Levothyroxine Sodium (Levothyroxine Sodium 100 Mcg Tablet) 100 mcg PO DAILY@0630 [facility] Last Admin: 09/24/21 05:25 Dose: 100 mcg Documented by: JOSE Methylprednisolone Sodium Succinate (Methylprednisolone Sod Succ 40 Mg/Ml Vial) 40 mg IVPUSH Q24H [facility] Last Admin: 09/24/21 07:54 Dose: 40 mg Documented by: GEO Patient Own Pain (Formula Hmt-Nk) 1 each TOPICAL TID [facility] Last Admin: 09/23/21 21:13 Dose: 1 each Documented by: JOSE Patient Own (Calcipotriene 0.005%) 2 each TOPICAL TID [facility] Last Admin: 09/23/21 21:13 Dose: 2 each Documented by: JOSE Omeprazole (Omeprazole 40 Mg Capsule.) 40 mg PO DAILY@0630 [facility] Last Admin: 09/24/21 05:25 Dose: 40 mg Documented by: JOSE Ondansetron HCl (Ondansetron Hcl 4 Mg/2 Ml Vial) 4 mg IVPUSH Q8H PRN PRN Reason: Nausea and Vomiting Pharmacy Consult (Consult Rx Vancomycin Dosing) 1 each MISCELLANE DAILY PRN PRN Reason: Consult order Pharmacy Consult (Consult Rx Perform Med Rec) 1 each MISCELLANE ONCE PRN PRN Reason: Consult order Pramipexole Dihydrochloride (Pramipexole Di-Hcl 0.25 Mg Tablet) 0.25 mg PO BEDTIME [facility] Last Admin: 09/23/21 21:07 Dose: 0.25 mg Documented by: JOSE Sodium Chloride (0.9 % Sodium Chloride Flush 3 Ml Syringe) 3 ml IVFLUSH QSHIFT [facility] Last Admin: 09/24/21 08:05 Dose: 3 ml Documented by: COLSONYA Labs CBC & Chem 7: 09/23/21 05:30 09/24/21 06:15 Labs: Laboratory Results - last 24 hr 09/23/21 09/23/21 09/23/21 11:25 13:25 16:40 Anion Gap Estim Creat Clear Calc Estimated GFR POC Glucose 382 H* 331 H 215 H Random Glucose Calcium 09/23/21 09/24/21 09/24/21 20:08 06:15 07:15 Anion Gap 16 Estim Creat Clear Calc 15.8 Estimated GFR 14 POC Glucose 242 H 190 H Random Glucose 198 H Calcium 8.6 Microbiology Microbiology Results: Microbiology 09/21/21 11:47 Blood Culture - Preliminary Blood - Venous No growth after 48 hours. 09/21/21 11:02 Blood Culture - Preliminary Blood - Venous No growth after 48 hours. Assessment and Plan (1) Acute respiratory failure with hypoxia: Status: Acute (2) COPD exacerbation: Status: Acute Plan an 80 years old lady with PMH of COPD, hypothyroidism, CKD4 , gout among others who presents to the hospital with worsening shortness of breath and wheezes for the last 3 days. acute hypoxic respiratory failure Secondary to COPD exacerbation CXR negative for infiltrates continue duo nebs around the clock Use albuterol as needed continue Methylprednisone 40 mg b.i.d. continue azithromycin orally daily Wean oxygen down as tolerated home O2 evaluation done, patient qualifies for home oxygen . Will need new study if not being discharged by tomorrow. Hypothyroidism Continue levothyroxine GERD Continue omeprazole Continue the rest of her home medications DVT PPX Lovenox the patient needs Another midnight hospital stay for treatment of acute hypoxic respiratory failure COPD exacerbation requiring treatment with steroids and nebulizers as she still wheezy and having dyspnea on exertion . Quality Stroke Does the patient have a stroke diagnosis?: No VTE Prior VTE?: No VTE Risk Level:: Medical - moderate - high VTE Device Contraindication: Treatment Not Indicated VTE Drug Contraindication: N/A - Med Ordered
[2021-09-24 11:14] LABS: Glucose, Whole Blood 207 mg/dL (60-115)
[2021-09-24] MEDS: Enoxaparin Sodium 30 MG/0.3 ML SYRINGE SUBCUT (12:06)
[2021-09-24 16:07] LABS: Glucose, Whole Blood 317 mg/dL (60-115)
--- NOTE | 2021-09-24 16:30 | MHC.CM.PN ---
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 PCP JOSIAH CLEMENTS
[2021-09-24 20:08] LABS: Glucose, Whole Blood 239 mg/dL (60-115)
[2021-09-24] MEDS: Pramipexole Di-HCL 0.25 MG TABLET PO (20:39)
[2021-09-25 04:00] VITALS: BP 138/62; PULSE 89; RESP 20; TEMP 36.3; O2SAT 95
[2021-09-25] MEDS: Omeprazole 40 MG CAPSULE.DR PO (05:10)
[2021-09-25] MEDS: Levothyroxine Sodium 100 MCG TABLET PO (05:10)
[2021-09-25] MEDS: Gabapentin 300 MG CAPSULE 600 MG PO (05:10)
[2021-09-25 06:48] LABS: Anion Gap 15 (12-20); Blood Urea Nitrogen 84 mg/dL (9-16); Calcium 8.6 mg/dL (8.4-10.2); Carbon Dioxide 25 mmol/L (22-29); Chloride 100 mmol/L (96-108); Creatinine Clr Calc Pharmacy 16.2; Estimated Glomerular Filt Rate 14; Glucose Random 227 mg/dL (60-115); Potassium 5.4 mmol/L (3.3-5.1); Sodium 135 mmol/L (135-145)
[2021-09-25 07:25] VITALS: BP 119/55; PULSE 79; RESP 18; TEMP 36.4; O2SAT 97
[2021-09-25 07:48] LABS: Glucose, Whole Blood 208 mg/dL (60-115)
[2021-09-25] MEDS: methylPREDNISolone Sod Succ 40 MG/ML VIAL IVPUSH (08:06)
[2021-09-25] MEDS: allopurinoL 300 MG TABLET PO (08:06)
[2021-09-25] MEDS: Ezetimibe 10 MG TABLET PO (08:06)
[2021-09-25] MEDS: Azithromycin 250 MG TABLET PO (08:06)
[2021-09-25] MEDS: 0.9 % Sodium Chloride Flush 3 ML SYRINGE IVFLUSH (08:06)
[2021-09-25] MEDS: Insulin Lispro 100 UNIT/ML 3 ML VIAL SUBCUT (08:13)
[2021-09-25] MEDS: Albuterol/Iprat 2.5/0.5MG 3 ML AMPUL.NEB INHALE (08:28)
[2021-09-25 08:30] VITALS: PULSE 79; RESP 18; O2SAT 98
--- NOTE | 2021-09-25 10:30 | P.DS_ITS ---
DS: Providers Provider Date of Service: 09/25/21 Date of admission: 09/21/21 13:39 Primary care physician: Amy Morales MD DS: Diagnosis Discharge Diagnosis (1) Acute respiratory failure with hypoxia: Status: Acute (2) COPD exacerbation: Status: Acute DS: Summary Hospital Course Hospital Course: from initial hpi: Chief Complaint:? for difficulty breathing, wheezing ?an 80 years old lady with PMH of COPD, hypothyroidism, CKD4 , gout among others who presents to the hospital with worsening shortness of breath and wheezes for the last 3 days.? The patient was treated recently for pneumonia inpatient and has been doing fairly okay at home which she moves without using a cane or a walker.? For the last 3 days she noticed worsening shortness of breath and worsening wheezes.? She lost her nebulizer machine when she moved recently and she has been using her inhalers more frequently.? In the emergency she was found to be hypoxic and placed on oxygen supplement.? Chest x-ray did not show any clear infiltrates.? She received nebulizer treatment and antibiotic. Will be admitted for further evaluation treatment. hospital course: Patient was admitted for acute hypoxic respiratory failure secondary to acute de compensation of COPD. She was treated with steroids, bronchodilators, azithromycin. Shortness of breath improved, she is still hypoxic on exertion on room air at time of discharge, therefore, she will be discharged home on home oxygen. She will continue prednisone for 5 more days. For hypothyroidism she was continued on Synthroid, for her GERD his continue on omeprazole, for CKD 4 creatinine remained stable, patient is noted morbid obesity, weight loss was recommended, she also has obstructive sleep apnea, no longer has a CPAP, instructed to follow up with Pulmonary for sleep study. Patient also noted to have mild hyperkalemia 5.4 at time of discharge, recommended low-potassium diet and follow-up labs outpatient. Time Spent with Patient Time attestation: Total time spent providing and/or coordinating discharge services: Discharge coordination time: Greater than 30 minutes Quality: Stroke Does the patient have a stroke diagnosis?: No Physical Exam Vital Signs: Vital Signs: Last Vital Signs Temp 97.5 F 09/25/21 07:25 Pulse 79 09/25/21 08:30 Resp 18 09/25/21 08:30 BP 119/55 L 09/25/21 07:25 Pulse Ox 97 09/25/21 07:25 BMI result Body Mass Index 44.1 General: AO X 3, no acute distress Resp: mildly diminshed bilateral, no accessory muscles used CVS: S1,S2,RRR GI: soft, non tender, non distended Neuro: motor grossly intact, alert Psych: appropriate affect, appropriate insight DS: Data Data Completed and Pending Labs on day of discharge: Laboratory Results - last 24 hr 09/24/21 09/24/21 09/24/21 11:03 16:01 19:46 Sodium Potassium Chloride Carbon Dioxide Anion Gap BUN Creatinine Estim Creat Clear Calc Estimated GFR POC Glucose 207 H 317 H 239 H Random Glucose Calcium 09/25/21 09/25/21 05:59 07:45 Sodium 135 Potassium 5.4 H Chloride 100 Carbon Dioxide 25 Anion Gap 15 BUN 84 H D Creatinine 3.13 H Estim Creat Clear Calc 16.2 Estimated GFR 14 POC Glucose 208 H Random Glucose 227 H Calcium 8.6 Preliminary micro results at discharge 09/21/21 11:47 Blood Culture - Preliminary Blood - Venous No growth after 48 hours. 09/21/21 11:02 Blood Culture - Preliminary Blood - Venous No growth after 48 hours. Discharge Plan Discharge Patient Disposition: Home, Self-Care Discharge Diagnosis: copd Referrals: JENNIFER [Other] - 1 Day (OXYGEN DELIVERY, PLEASE CALL ONCE YOU ARRIVE HOME FOR OXYGEN TO BE DELIVERED. ) Dana CHOUA [Outside] - 3-5 Days (NEW HOME O2 2L NC W/AMBULATION, CARE HOME AND HOME PT, NURSING START OF CARE ON FRIDAY 09/29. ) Amy Morales MD [Primary Care Provider] - 1 Week Discharge Medications: New prednisone 20 mg tablet 40 mg PO DAILY Qty: 10 0RF (DME) blood-glucose meter [FreeStyle [place] Lite] Kit See Rx Instructions .Route Qty: 1 0RF Rx Instructions: As directed (DME) Freestyle [employer] Test Strips Strip See Rx Instructions .Route Qty: 100 0RF Rx Instructions: As directed (DME) lancets [FreeStyle Lancets] 28 gauge misc See Rx Instructions .Route Qty: 100 0RF Rx Instructions: As directed alcohol swabs Pads, Medicated 1 pad topical TIDAC Qty: 200 0RF Continued furosemide 40 mg tablet 1 tab PO BIDWM 0RF ipratropium-albuterol 0.5 mg-3 mg(2.5 mg base)/3 mL solution for nebulization 3 ml inhalation Q4H PRN (Reason: Shortness Of Breath) 0RF levothyroxine 100 mcg tablet 1 tab PO DAILY 0RF pantoprazole 40 mg tablet,delayed release (DR/EC) 1 tab PO DAILY 0RF pramipexole 0.25 mg tablet 1 tab PO BEDTIME 0RF allopurinol 300 mg tablet 1 tab PO DAILY 0RF albuterol sulfate 90 mcg/actuation HFA aerosol inhaler 2 inh inhalation Q4H PRN (Reason: Shortness Of Breath) 0RF calcipotriene 0.005 % ointment 1 appl topical BID 0RF ezetimibe 10 mg tablet 1 tab PO DAILY 0RF Trelegy Ellipta 1 puff inhalation DAILY 0RF citalopram 20 mg tablet 40 mg PO DAILY 0RF gabapentin 300 mg capsule 600 mg PO Q8H 0RF amoxicillin-pot clavulanate 875-125 mg tablet 1 tab PO Q12H Qty: 14 0RF Discharge Orders: Discharge Order (Routine); Ordered 09/25/21 Ordered By: Evgeny Scott Diet: diabetic diet Activity on Discharge: As tolerated Stand Alone Forms: Patient Portal Discharge page Other Ambulatory Orders: Basic Metabolic Panel (Routine) Timeframe: 1 Week Facility: [facility] - Location: Laboratory Ordered By: Evgeny Scott Care Plan Goals: manage copd Health Concerns: copd Plan of Treatment: o2 on exertion, prednisone, follow up pulmonary Assessment: see above Discharge Date/Time: 09/25/21 13:15
[2021-09-25 11:41] LABS: Glucose, Whole Blood 176 mg/dL (60-115)
[2021-09-25 11:44] VITALS: BP 140/63; PULSE 80; RESP 18; TEMP 36.5; O2SAT 96
--- NOTE | 2021-09-25 12:12 | MHC.CM.PN ---
Addendum entered by Lissette Montilla RN 09/25/21 13:33: CM UNABLE TO OBTAIN [facility] TO SEE PT PRIOR TO FRIDAY 09/29, PT'S DTR AND HOSPITALIST RUIZ W/SOC THURSDAY THEREFORE PT WILL HAVE [facility] FOR SNF AND HOME PT. Original Note: PER HOSPITALIST PT MEDICALLY CLEARED FOR D/C HOME W/NEW 2L O2 W/AMBULATION W/LINCARE AND [facility] FOR SN AND HOME PT, FAMILY OFR TRANSPORT. CM WORKING ON OBTAINING [facility] WHO CAN SEE PT PRIOR TO THU/THU WHEN [facility] CAN COMPLETE SOC. BLANKET REFERRAL PLACED PT'S INSURANCE IS NOT ACCEPTED BY MAJORITY OF [facility]S. CM WILL CONT TO FOLLOW REFERRALS.
--- NOTE | 2021-09-25 13:32 | W.MHC.F2F ---
Service Date Service Date: 09/25/21 Encounter Date of encounter: 09/25/21 Reasons for Services Signs and symptoms assessed: weakness Reason for correction: medication management, medication treatment and teach disease management Reason for physical therapy: home safety and mobility and therapeutic exercises Homebound: Leaving the home is medically contraindicated at this time without the asist of a device and/or another person due th the listed conditions above and below. Reason homebound: unsteady gait / fall risk Certification: Based on the above findings, I certify that this patient is confined to the home and needs intermittent correction care, physical therapy and/or speech therapy, or continues to need occupational therapy. The patient is under my care, and I have initiated the establishment of the plan of care. The patient will be followed by a physician who will periodically review the plan of care.
== END 2021-09-25 13:15 | disposition home or self-care (01) | DRG 191 ==
LOC: HO.ED 13:18 → HO.EDOVER 13:46 → HO.S3 09-22 15:02
PROVIDERS: Physician Assistant; Admitting Provider Student in an Organized Health Care Education/Training Program; Emergency Provider Emergency Medicine; PCP Internal Medicine; Visit Provider Internal Medicine
DX: J44.1 Chronic obstructive pulmonary disease with (acute) exacerbation (principal); N17.9 Acute kidney failure, unspecified; Z68.41 Body mass index [BMI] 40.0-44.9, adult; N18.4 Chronic kidney disease, stage 4 (severe); K21.9 Gastro-esophageal reflux disease without esophagitis; E66.01 Morbid (severe) obesity due to excess calories; G47.33 Obstructive sleep apnea (adult) (pediatric); E03.9 Hypothyroidism, unspecified; E11.22 Type 2 diabetes mellitus with diabetic chronic kidney disease; Z20.822 Contact with and (suspected) exposure to COVID-19; Z87.01 Personal history of pneumonia (recurrent); Z87.891 Personal history of nicotine dependence; Z99.89 Dependence on other enabling machines and devices; Z88.6 Allergy status to analgesic agent; Z79.890 Hormone replacement therapy; Z79.899 Other long term (current) drug therapy
CPT/HCPCS: 36415; 71046; 80048; 80053; 82803; 82947; 83605; 83880; 84484; 85025; 85027; 87040; 87635; 93005; 94640; 96365; 96366; 96375; 97161; 99285; J1650; J1956; J2543; J2920; J2930; J3370

== ENCOUNTER 2021-10-11 13:08 | Outpatient (REF) | payer MEDICARE, SELFPAY ==
--- NOTE | ~2021-10-11 | XR_ITS ---
EXAMINATION: XR CHEST CLINICAL INFORMATION: Personal history of pneumonia COMPARISON: Chest 09/21/2021 TECHNIQUE: 2 views of the chest were obtained. FINDINGS: The lungs are hypoexpanded with increased interstitial markings both lungs without acute pneumonic process. No pleural effusion. The heart size and pulmonary vascularity is normal. There are neural electrodes in the spinal canal mid dorsal spine. XR/XR chest 2V IMPRESSION: Hypoexpanded lungs with bilateral increase interstitial markings similar to previous study 09/21/2021.
[2021-10-11 14:00] LABS: Estimated Average Glucose 143 mg/dL; Hemoglobin A1c % 6.6 %
[2021-10-11 14:04] LABS: Potassium 4.2 mmol/L (3.3-5.1)
== END 2021-10-11 13:09 | disposition home or self-care (01) ==
LOC: HO.HMGCX 13:08
PROVIDERS: PCP Internal Medicine; Visit Provider Internal Medicine
DX: E11.29 Type 2 diabetes mellitus with other diabetic kidney complication (principal); E87.5 Hyperkalemia; J44.9 Chronic obstructive pulmonary disease, unspecified; Z87.01 Personal history of pneumonia (recurrent)
CPT/HCPCS: 36415; 71046; 83036; 84132

== ENCOUNTER 2021-10-11 17:03 | Emergency (ER) | payer MEDICARE, SELFPAY ==
--- NOTE | 2021-10-11 | ECG_ITS ---
Test Reason : CHEST PAIN Blood Pressure : / mmHG Vent. Rate : 081 BPM Atrial Rate : 081 BPM P-R Int : 206 ms QRS Dur : 072 ms QT Int : 388 ms P-R-T Axes : 044 002 037 degrees QTc Int : 450 ms Normal sinus rhythm Inferior infarct (cited on or before 27-AUG-2021) Abnormal ECG When compared with ECG of 21-SEP-2021 11:13, No significant changes seen Referred By: Generic ED Physician Electronically Signed By:SANDRA AMBROCIO
[2021-10-11 17:13] VITALS: BP 133/52; PULSE 82; TEMP 36.6; O2SAT 98; BMI 41.5
[2021-10-11 17:27] VITALS: BP 133/52; PULSE 82; RESP 18; TEMP 36.6; O2SAT 98
--- NOTE | 2021-10-11 17:41 | ED.CHESTPAIN ---
HPI - Chest Pain General Chief Complaint: Chest Pain Stated Complaint: Chest Pain Time Seen by Provider: 10/11/21 17:40 Source: patient Mode of arrival: ambulatory Limitations: no limitations History of Present Illness HPI narrative: Patient is an 80 year old female presenting to the emergency department today with chest pain that resolved. Patient states that she had an episode of chest pain earlier however, it resolved. Patient described the pain as a strong pain. Patient states that she has a history of COPD and sometimes needs to use her oxygen at home so she put some of that on. Patient denies any current dizziness, lightheadedness, abdominal pain, nausea, vomiting, fever, chills, blurry vision, double vision, loss of vision, chest pain, difficulty breathing, shortness of breath, back pain, night sweats, pain with urination, increased urinary frequency, increased urinary urgency, blood in her urine or stool, syncope or a near syncopal episode, recent trauma or falls, bowel incontinence, bladder incontinence, bowel retention, bladder retention, or any other complaints at this time. MD complaint: chest pain Onset (ago): hour(s) Timing of current episode: episodic Prior episodes: Yes Pain location: substernal Pain radiation: none Severity: mild Pain scale (0-10): 3 Quality: tightness Relieving factors: nothing Exacerbating factors: nothing Treatment prior to arrival: none Risk Factors Coronary artery disease risk factors: diabetes Related Data Home Medications Medication Instructions Recorded Confirmed Trelegy Ellipta 1 puff INHALATION DAILY 08/27/21 09/21/21 albuterol sulfate 90 mcg/actuation 2 inh INHALATION Q4H PRN 08/27/21 09/21/21 aerosol inhaler allopurinol 300 mg tablet 1 tab PO DAILY 08/27/21 09/21/21 calcipotriene 0.005 % topical 1 appl TOPICAL BID 08/27/21 09/21/21 ointment ezetimibe 10 mg tablet 1 tab PO DAILY 08/27/21 09/21/21 furosemide 40 mg tablet 1 tab PO BIDWM 08/27/21 09/21/21 levothyroxine 100 mcg tablet 1 tab PO DAILY 08/27/21 09/21/21 pantoprazole 40 mg tablet,delayed 1 tab PO DAILY 08/27/21 09/21/21 release pramipexole 0.25 mg tablet 1 tab PO BEDTIME 08/27/21 09/21/21 citalopram 20 mg tablet 40 mg PO DAILY tab 09/13/21 09/21/21 gabapentin 300 mg capsule 600 mg PO TID cap 10/01/21 Previous Rx's Medication Instructions Recorded alcohol swabs 1 pad TOPICAL TIDAC #200 ea 09/25/21 blood sugar diagnostic (OneTouch #100 ea 10/03/21 Verio test strips) blood-glucose meter (OneTouch #1 ea 10/03/21 Verio Meter) lancets 33 gauge (OneTouch Delica #100 ea 10/03/21 Lancets) Allergies Allergy/AdvReac Type Severity Reaction Status Date / Time NSAIDS (Non-Steroidal Allergy Unknown Verified 10/01/21 14:08 Anti-Inflamma Review of Systems Constitutional: Constitutional: Reports no additional constitutional complaints, Denies chills, Denies fever(s) and Denies night sweats Eyes: Eyes: Reports no additional eye complaints, Denies blurry vision, Denies change in vision, Denies diplopia, Denies eye discharge, Denies loss of vision and Denies eye pain ENT: Denies dizziness Cardiovascular: Cardiovascular: Reports no additional cardiovascular complaints, Denies chest pain, Denies lightheadedness, Denies Loss of Consciousness and Denies dyspnea Respiratory: Respiratory: Reports no additional respiratory complaints and Denies dyspnea Gastrointestinal: Gastrointestinal: Reports no additional gastrointestinal complaints, Denies abdominal pain, Denies melena, Denies hematochezia, Denies change in bowel habits and Denies change in stool character Genitourinary: Genitourinary: Denies hematuria, Denies urinary frequency, Denies dysuria, Denies urinary incontinence, Denies urinary hesitancy and Denies urinary urgency Musculoskeletal: Musculoskeletal: Reports no additional musculoskeletal complaints, Denies numbness and Denies tingling Neurologic: Denies dizziness, Denies loss of vision, Denies numbness and Denies tingling Psychiatric: Psychiatric: Reports no additional psychiatric complaints Endocrine: Endocrine: Reports no additional endocrine complaints Hematologic/Lymphatic: Hematologic/Lymphatic: Reports no additional hematologic/lymphatic complaints Allergic/Immunologic: Allergic/Immunologic: Reports no additional allergic/immunologic complaints PMFSH Past Medical History Attestation statement: The following information was validated with the patient. 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 Surgical History H/O hemorrhoidectomy Hx of fusion of cervical spine Hx of tonsillectomy S/P anal fissurectomy S/P appendectomy S/P partial hysterectomy Family History Family History Brother Substance use disorder Son Substance use disorder Daughter Substance use disorder Social History Social History Household Members: Children Housing: House Do you presently have visiting nurse or other home services: No Alcohol intake: never Patient Tobacco Use Status: Former Tobacco user Quit Date: 15 years ago Tobacco use type: Cigarette Cigarettes Per Day: 5 e-Cigarette/Vaping Use: Never Used Second Hand Smoke Exposure: No Advance Directives: Yes Advance Directives on File: Yes Advance Directives Date on File: 08/28/21 service: No Current occupational status: retired Physical Exam Vital Signs: Vital Signs: Last Vital Signs Temp 97.8 F 10/11/21 17:27 Pulse 76 10/11/21 22:00 Resp 17 10/11/21 22:00 BP 120/39 L 10/11/21 22:00 Pulse Ox 98 10/11/21 22:00 Oxygen Flow Rate 2 10/11/21 17:13 BMI result Body Mass Index 41.5 Const: General: cooperative, no acute distress, alert and awake Nutritional Appearance: well nourished Orientation/consciousness: patient oriented x3 Limitations: no limitations HEENT: Head: Yes normal to inspection and Yes atraumatic Ears: hearing grossly normal bilaterally and external ears normal General nose exam: Normal external nose present, no nasal discharge noted and no epistaxis Face and sinus: Yes normal facial exam, No abrasion and No laceration Mouth: Normal oral and palatal mucosa present, no drooling and no muffled voice Eyes: General: appearance normal, both eyes and all related structures Periorbital: periorbital findings normal Eyelids: Yes eyelids normal Conjunctivae: conjunctivae normal Pupils: Equal, round and reactive pupils present EOM: EOMs intact bilaterally Neck: Neck: Yes normal visual inspection, Yes full ROM and Yes no lymphadenopathy Chest: Chest palpation & inspection: normal inspection of the chest Resp: Effort & Inspection: normal respiratory effort and able to speak in complete sentences Auscultation: clear to auscultation bilaterally Cardio: Rate: regular rate Rhythm: regular rhythm GI: Inspection: Yes normal to inspection Neuro: General: patient oriented x3 and moves all extremities Cranial nerves: Yes Equal, round and reactive pupils present Cognition (Neuro): normal cognition Motor exam (neuro): 5/5 motor strength present throughout Sensory Exam: Normal double simultaneous stimulation for sensation Coordination: [id number] test normal Extrem: General: Yes normal to inspection, Yes full ROM and Yes capillary refill normal Psych: Appearance: grossly normal Mental Status: mental status grossly normal Affect: normal affect Attitude: cooperative Thought process: Normal thought process present Thought content: Normal thought content present Insight: Good insight present (Psych) MDM - Chest Pain MDM Narrative Medical decision making narrative: Patient is a 80 year old female presenting to the emergency department today with resolved chest pain. Patient's physical exam was unremarkable. Patient's blood work showed a minimally elevated troponin however, this is normal for the patient's baseline due to her CKD. Patient's EKG was unremarkable. Patient's chest x-ray showed no acute process. I explained my physical exam findings as well as all test results to the patient. I answered all questions asked by the patient. I stressed the importance of the patient taking her medication as prescribed. I stressed the importance of the patient following up with her primary care provider. I stressed the importance of the patient returning to the emergency department immediately if her symptoms were to worsen or if she were to develop any dizziness, shortness of breath, difficulty breathing, chest pain, blurry vision, loss of vision, nausea, vomiting, abdominal pain, fever, chills, back pain, or any other complaints. Patient verbalized agreement and understanding with this treatment plan and discharge. Differential Diagnosis Differential diagnosis: Likely stable angina, atypical chest pain and costochondritis Medical Records Data Attestation: I reviewed the patient's medical records. Lab Data Attestation: I reviewed the patient's lab results. Result diagrams: 10/11/21 18:12 10/11/21 18:12 Labs: Lab Results 10/11/21 10/11/21 10/11/21 Range/Units 18:12 18:12 18:12 WBC 7.4 (4.8-10.8) X10*3/uL RBC 3.35 L (4.20-5.50) X10*6/uL Hgb 10.9 L (12.0-16.0) g/dl Hct 33.6 L (37.0-47.0) % MCV 100.3 H (80.0-98.0) fL MCH 32.5 (27.0-33.0) pg MCHC 32.4 (31.0-35.0) g/dl RDW 14.8 (11.0-16.0) % Plt Count 144 L (160-400) X10*3/uL MPV 10.3 (9.4-12.3) fL Immature Gran % (Auto) 0.7 H (0.0-0.4) % Neut % (Auto) 61.0 (45-73) % Lymph % (Auto) 25.1 (20-40) % [place] % (Auto) 6.8 (2-11) % Eos % (Auto) 6.0 H (0-4) % Baso % (Auto) 0.4 (0-2) % Lymph # (Auto) 1.9 (1.2-4.9) X10*3/uL [place] # (Auto) 0.5 (0.1-1.2) X10*3/uL Eos # (Auto) 0.4 (0.0-0.4) X10*3/uL Baso # (Auto) 0.0 (0.0-0.2) X10*3/uL Abs Immat Gran (auto) 0.05 H (0.00-0.03) X10*3/uL Absolute Neuts (auto) 4.5 (2.0-8.3) x10*3/uL Absolute Nucleated RBC 0.000 (0.0-0.012) X10*3/uL Nucleated RBC % (auto) 0.0 (0.0-0.2) /100WBC Sodium 139 (135-145) mmol/L Potassium 4.2 (3.3-5.1) mmol/L Chloride 102 (96-108) mmol/L Carbon Dioxide 26 (22-29) mmol/L Anion Gap 15 (12-20) BUN 45 H (9-16) mg/dL Creatinine 2.83 H (0.5-1.4) mg/dL Estim Creat Clear Calc 17.2 Estimated GFR 16 Random Glucose 109 (60-115) mg/dL Calcium 9.0 (8.4-10.2) mg/dL Magnesium 1.9 (1.6-2.6) mg/dL Total Bilirubin 1.1 H (0.0-1.0) mg/dL AST 16 D (5-31) U/L ALT 21 (0-31) U/L Alkaline Phosphatase 103 (39-117) U/L Troponin I High Sens 7.7 (<3.5-17.0) ng/L B-Natriuretic Peptide 19 (<100) pg/mL Total Protein 5.9 L (6.5-8.0) g/dL Albumin 3.5 (3.5-5.0) g/dL 10/11/21 Range/Units 21:52 WBC (4.8-10.8) X10*3/uL RBC (4.20-5.50) X10*6/uL Hgb (12.0-16.0) g/dl Hct (37.0-47.0) % MCV (80.0-98.0) fL MCH (27.0-33.0) pg MCHC (31.0-35.0) g/dl RDW (11.0-16.0) % Plt Count (160-400) X10*3/uL MPV (9.4-12.3) fL Immature Gran % (Auto) (0.0-0.4) % Neut % (Auto) (45-73) % Lymph % (Auto) (20-40) % [place] % (Auto) (2-11) % Eos % (Auto) (0-4) % Baso % (Auto) (0-2) % Lymph # (Auto) (1.2-4.9) X10*3/uL [place] # (Auto) (0.1-1.2) X10*3/uL Eos # (Auto) (0.0-0.4) X10*3/uL Baso # (Auto) (0.0-0.2) X10*3/uL Abs Immat Gran (auto) (0.00-0.03) X10*3/uL Absolute Neuts (auto) (2.0-8.3) x10*3/uL Absolute Nucleated RBC (0.0-0.012) X10*3/uL Nucleated RBC % (auto) (0.0-0.2) /100WBC Sodium (135-145) mmol/L Potassium (3.3-5.1) mmol/L Chloride (96-108) mmol/L Carbon Dioxide (22-29) mmol/L Anion Gap (12-20) BUN (9-16) mg/dL Creatinine (0.5-1.4) mg/dL Estim Creat Clear Calc Estimated GFR Random Glucose (60-115) mg/dL Calcium (8.4-10.2) mg/dL Magnesium (1.6-2.6) mg/dL Total Bilirubin (0.0-1.0) mg/dL AST (5-31) U/L ALT (0-31) U/L Alkaline Phosphatase (39-117) U/L Troponin I High Sens 8.5 (<3.5-17.0) ng/L B-Natriuretic Peptide (<100) pg/mL Total Protein (6.5-8.0) g/dL Albumin (3.5-5.0) g/dL Imaging Data Chest x-ray: Attestation: I personally reviewed and interpreted this imaging study as follows: Radiologist's impression: EXAMINATION: XR CHEST CLINICAL INFORMATION: Personal history of pneumonia COMPARISON: Chest 09/21/2021 TECHNIQUE: 2 views of the chest were obtained. FINDINGS: The lungs are hypoexpanded with increased interstitial markings both lungs without acute pneumonic process. No pleural effusion. The heart size and pulmonary vascularity is normal. There are neural electrodes in the spinal canal mid dorsal spine. XR/XR chest 2V IMPRESSION: Hypoexpanded lungs with bilateral increase interstitial markings similar to previous study 09/21/2021. Dictated By: Kelvin Frazier MD Signed By: Electronically signed by Kelvin Frazier MD 10/11/21 1430 ECG Data ECG #1: Attestation: I personally reviewed and interpreted this ECG as follows: ECG interpretation date: 10/11/21 ECG interpretation time: 17:18 Prior ECG tracings: available for review Interpretation: Vent. Rate: 081 BPM ? ? Atrial Rate: 081 BPM P-R Int: 206 ms? QRS Dur: 072 ms QT Int: 388 ms ? ? ? P-R-T Axes: 044 002 037 degrees QTc Int: 450 ms ? Normal sinus rhythm Inferior infarct (cited on or before 27-AUG-2021) Abnormal ECG When compared with ECG of 21-SEP-2021 11:13, Nonspecific T wave abnormality no longer evident in Anterior leads Discharge Plan Discharge Clinical Impression: CKD (chronic kidney disease) stage 4, GFR 15-29 ml/min, COPD (chronic obstructive pulmonary disease) Patient Disposition: Home, Self-Care Instructions: Chronic Kidney Disease (ED), COPD (Chronic Obstructive Pulmonary Disease) (DC) Prescriptions: No Action (DME) blood-glucose meter [OneTouch Verio Meter] Misc See Rx Instructions .Route Qty: 1 0RF Rx Instructions: As directed (DME) OneTouch Verio test strips Strip See Rx Instructions .Route Qty: 100 3RF Rx Instructions: test blood sugars once a day (DME) lancets [OneTouch Delica Lancets] 33 gauge misc See Rx Instructions .Route Qty: 100 3RF Rx Instructions: test blood sugar once a day furosemide 40 mg tablet 1 tab PO BIDWM 0RF levothyroxine 100 mcg tablet 1 tab PO DAILY 0RF pantoprazole 40 mg tablet,delayed release (DR/EC) 1 tab PO DAILY 0RF pramipexole 0.25 mg tablet 1 tab PO BEDTIME 0RF allopurinol 300 mg tablet 1 tab PO DAILY 0RF albuterol sulfate 90 mcg/actuation HFA aerosol inhaler 2 inh inhalation Q4H PRN (Reason: Shortness Of Breath) 0RF calcipotriene 0.005 % ointment 1 appl topical BID 0RF ezetimibe 10 mg tablet 1 tab PO DAILY 0RF Trelegy Ellipta 1 puff inhalation DAILY 0RF citalopram 20 mg tablet 40 mg PO DAILY 0RF alcohol swabs Pads, Medicated 1 pad topical TIDAC Qty: 200 0RF gabapentin 300 mg capsule 600 mg PO TID 0RF Referrals: Amy Morales MD [Primary Care Provider] - 2 days Interventions: ED Discharge Assessment Last Done: 10/11/21 22:41 Print Language: [place]ijani
--- NOTE | 2021-10-11 17:57 | PC.NURSE ---
pt reported that she was sitting down at home paying bills and started having chest pain. she describes the pain as hurtful 04/21. pt states that the pain subsided once the ambulance arrived. hx of copd and chf, on 2l n/c prn. pt current denies pain, no sob, dizziness, headache. no n/v/d. no complaints at this time.
[2021-10-11 18:23] LABS: MANUAL DIFF FLAG NO
[2021-10-11 18:39] LABS: Alanine Aminotransferase 21 U/L (0-31); Albumin Level 3.5 g/dL (3.5-5.0); Alkaline Phosphatase 103 U/L (39-117); Anion Gap 15 (12-20); Aspartate Amino Transferase 16 U/L (5-31); Bilirubin Total 1.1 mg/dL (0.0-1.0); Blood Urea Nitrogen 45 mg/dL (9-16); Carbon Dioxide 26 mmol/L (22-29); Chloride 102 mmol/L (96-108); Creatinine Clr Calc Pharmacy 17.2; Estimated Glomerular Filt Rate 16; Glucose Random 109 mg/dL (60-115); Magnesium 1.9 mg/dL (1.6-2.6); Potassium 4.2 mmol/L (3.3-5.1); Sodium 139 mmol/L (135-145); Total Protein 5.9 g/dL (6.5-8.0)
[2021-10-11 18:40] LABS: Basophils Percent Auto 0.4 % (0-2); Eosinophils Absolute Auto 0.4 X10*3/uL (0.0-0.4); Hematocrit 33.6 % (37.0-47.0); Hemoglobin 10.9 g/dl (12.0-16.0); Imm Gran Abs Auto 0.05 X10*3/uL (0.00-0.03); Imm Gran Pct Auto 0.7 % (0.0-0.4); Lymphocytes Absolute Auto 1.9 X10*3/uL (1.2-4.9); Lymphocytes Percent Auto 25.1 % (20-40); Mean Corpuscular HGB Conc 32.4 g/dl (31.0-35.0); Mean Corpuscular Hemoglobin 32.5 pg (27.0-33.0); Mean Corpuscular Volume 100.3 fL (80.0-98.0); Mean Platelet Volume 10.3 fL (9.4-12.3); Monocytes Absolute Auto 0.5 X10*3/uL (0.1-1.2); Monocytes Percent Auto 6.8 % (2-11); Neutrophils Absolute Auto 4.5 x10*3/uL (2.0-8.3); Platelet Count 144 X10*3/uL (160-400); Red Blood Count 3.35 X10*6/uL (4.20-5.50); Red Cell Distribution Width 14.8 % (11.0-16.0); White Blood Count 7.4 X10*3/uL (4.8-10.8)
[2021-10-11 18:44] LABS: Troponin-I High Sensitivity 7.7 ng/L (<3.5-17.0)
[2021-10-11 19:23] VITALS: BP 107/45; PULSE 82; PULSE 85; RESP 16; O2SAT 100
[2021-10-11 20:07] LABS: B Type Natriuretic Peptide 19 pg/mL (<100)
[2021-10-11 22:00] VITALS: BP 120/39; PULSE 76; RESP 17; O2SAT 98
[2021-10-11 22:23] LABS: Troponin-I High Sensitivity 8.5 ng/L (<3.5-17.0)
== END 2021-10-11 23:00 | disposition home or self-care (01) ==
PROVIDERS: Physician Assistant Medical; Emergency Provider Emergency Medicine Emergency Medical Services; PCP Internal Medicine
DX: E11.22 Type 2 diabetes mellitus with diabetic chronic kidney disease (principal); N18.4 Chronic kidney disease, stage 4 (severe); J44.9 Chronic obstructive pulmonary disease, unspecified; R07.9 Chest pain, unspecified; Z99.81 Dependence on supplemental oxygen
CPT/HCPCS: 36415; 80053; 83735; 83880; 84484; 85025; 93005; 99283; 99285

== ENCOUNTER → 2021-10-21 10:02 | Outpatient (BNVA) | payer MEDICARE, SELFPAY | PROVIDERS: PCP Internal Medicine; Visit Provider Internal Medicine | DX: J84.9 Interstitial pulmonary disease, unspecified (principal); J44.9 Chronic obstructive pulmonary disease, unspecified | CPT/HCPCS: 99202 ==

== ENCOUNTER → 2021-11-13 09:54 | Outpatient (BNVA) | payer MEDICARE, SELFPAY | PROVIDERS: PCP Internal Medicine; Referring Provider Internal Medicine; Visit Provider Internal Medicine | DX: R06.02 Shortness of breath (principal); N18.4 Chronic kidney disease, stage 4 (severe); J44.9 Chronic obstructive pulmonary disease, unspecified; E11.29 Type 2 diabetes mellitus with other diabetic kidney complication | CPT/HCPCS: 99202 ==

== ENCOUNTER 2021-11-26 10:02 | Emergency (ER) | payer MEDICARE, SELFPAY ==
--- NOTE | ~2021-11-26 | XR_ITS ---
EXAMINATION: XR ELBOW, LEFT CLINICAL INFORMATION: Laceration COMPARISON: None TECHNIQUE: AP, lateral, and oblique views of the left elbow. FINDINGS: Bone alignment is normal. No fracture or dislocation is seen. There is a small osteophyte at the triceps tendon insertion to the olecranon. There is a small round 2 mm soft tissue calcification adjacent to the medial humeral condyle. There is no joint effusion. No soft tissue foreign body is seen. XR/XR elbow LT min 3V IMPRESSION: No fracture or foreign body is seen.
--- NOTE | ~2021-11-26 | US_ITS ---
EXAMINATION: ULTRASOUND EXTREMITY NONVASCULAR CLINICAL INFORMATION: Trauma. Left upper arm lump COMPARISON: Elbow x-ray from the same day TECHNIQUE: Grayscale and color images of the left upper arm/elbow using a linear transducer FINDINGS: No abnormality is evident by ultrasound. No soft tissue mass or fluid collection is seen. US/US extremity nonvascular IMPRESSION: No abnormality seen by ultrasound.
[2021-11-26 10:43] VITALS: BP 148/61; PULSE 79; RESP 22; TEMP 35.6; O2SAT 94
--- NOTE | 2021-11-26 11:27 | PC.NURSE ---
pt presents to dept via WC, alert and pleasant. Pt sts that she hit her left forearm/elbow on a door frame last night. pt has 2.5in skin tear covered with neosporin, surrounded by 4x3in area of ecchymosis. laceration covered by non stick dressing followed by tubigrip. pt sts area bled through several dressings through the night. Denies prior injury to the area, denies blood thinner d/t Kidney failure.
--- NOTE | 2021-11-26 11:51 | ED.GENADULT ---
HPI - General Adult General Chief complaint: Wound/Laceration Stated complaint: l arm laceration at home Time Seen by Provider: 11/26/21 11:51 Source: patient Mode of arrival: ambulatory Limitations: no limitations History of Present Illness HPI narrative: 81-year-old diabetic female hit her left arm on a metal door jam yesterday. No fall, no head strike. Patient is not on blood thinners. Patient has a skin tear to the dorsal aspect of her left elbow, with bruising. Related Data Home Medications Medication Instructions Recorded Confirmed Trelegy Ellipta 1 puff INHALATION DAILY 08/27/21 11/13/21 albuterol sulfate 90 mcg/actuation 2 inh INHALATION Q4H PRN 08/27/21 11/13/21 aerosol inhaler allopurinol 300 mg tablet 1 tab PO DAILY 08/27/21 11/13/21 calcipotriene 0.005 % topical 1 appl TOPICAL BID 08/27/21 11/13/21 ointment citalopram 20 mg tablet 40 mg PO DAILY tab 09/13/21 11/13/21 gabapentin 300 mg capsule 600 mg PO TID cap 10/01/21 11/13/21 sodium bicarbonate 325 mg tablet 325 mg PO QID PRN 10/21/21 11/13/21 ezetimibe 10 mg tablet 10 mg PO DAILY 11/13/21 11/13/21 furosemide 40 mg tablet 40 mg PO BIDWM 11/13/21 11/13/21 levothyroxine 100 mcg tablet 100 mcg PO DAILY 11/13/21 11/13/21 losartan 25 mg tablet 25 mg PO DAILY 11/13/21 11/13/21 pantoprazole 40 mg tablet,delayed 40 mg PO DAILY 11/13/21 11/13/21 release pramipexole 0.25 mg tablet 0.25 mg PO BEDTIME 11/13/21 11/13/21 Previous Rx's Medication Instructions Recorded alcohol swabs 1 pad TOPICAL TIDAC #200 ea 09/25/21 blood sugar diagnostic (OneTouch #100 ea 10/03/21 Verio test strips) blood-glucose meter (OneTouch #1 ea 10/03/21 Verio Meter) lancets 33 gauge (OneTouch Delica #100 ea 10/03/21 Lancets) cephalexin 500 mg capsule 500 mg PO QID 7 Days #28 cap 11/26/21 Allergies Allergy/AdvReac Type Severity Reaction Status Date / Time NSAIDS (Non-Steroidal Allergy Unknown Verified 11/26/21 10:43 Anti-Inflamma Review of Systems Constitutional: Constitutional: Denies body ache(s), Denies chills, Denies fatigue, Denies fever(s), Denies headache(s), Denies malaise and Denies weakness Eyes: Eyes: Denies diplopia ENT: Denies vertigo, Denies dizziness, Denies headache(s) and Denies throat swelling Cardiovascular: Cardiovascular: Denies chest pain, Denies syncope, Denies leg edema, Denies lightheadedness, Denies Loss of Consciousness, Denies palpitations and Denies dyspnea Respiratory: Respiratory: Denies chest congestion, Denies cough and Denies dyspnea Gastrointestinal: Gastrointestinal: Reports abdominal pain, Denies hematochezia, Denies constipation, Denies diarrhea and Denies vomiting Musculoskeletal: Musculoskeletal: Reports arthralgias Integumentary/Breasts: Comments: Skin tear with bruising Neurologic: Denies confusion, Denies vertigo, Denies dizziness, Denies syncope, Denies headache(s) and Denies weakness Psychiatric: Psychiatric: Denies anxiety, Denies confusion and Denies depression Endocrine: Endocrine: Denies fatigue and Denies palpitations Allergic/Immunologic: Allergic/Immunologic: Denies throat swelling PMFSH Past Medical History Medical History Acquired hypothyroidism COPD (chronic obstructive pulmonary disease) Depression, major, recurrent Diabetes Dyslipidemia Fibromyalgia Heart murmur Interstitial lung disease Kidney failure, acute Osteoarthritis of multiple joints Type 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 Surgical History H/O hemorrhoidectomy Hx of fusion of cervical spine Hx of tonsillectomy S/P anal fissurectomy S/P appendectomy S/P partial hysterectomy Family History Family History Brother Substance use disorder Son Substance use disorder Daughter Substance use disorder Social History Social History Household Members: Children Housing: House Do you presently have visiting nurse or other home services: No Alcohol intake: never Patient Tobacco Use Status: Former Tobacco user Quit Date: 15 years ago Tobacco use type: Cigarette Cigarettes Per Day: 5 e-Cigarette/Vaping Use: Never Used Second Hand Smoke Exposure: No Advance Directives: No Advance Directives Date on File: 08/28/21 service: No Current occupational status: retired Physical Exam ED Vital Signs: Vital Signs - 24 hr 11/26/21 10:43 Temperature 96.1 F L Pulse Rate 79 Respiratory Rate 22 H Blood Pressure 148/61 H Pulse Oximetry 94 BMI result Body Mass Index 0.4 Const General: No confusion Nutritional Appearance: well nourished Orientation/consciousness: No confusion Limitations: no limitations Eyes Conjunctivae: conjunctivae normal Pupils: Equal, round and reactive pupils present EOM: EOMs intact bilaterally Neck Neck: Yes full ROM, Yes no lymphadenopathy and Yes supple Resp Effort & Inspection: normal respiratory effort and able to speak in complete sentences Auscultation: clear to auscultation bilaterally, no crackles, no rales, no rhonchi and no wheezes Cardio Rate: regular rate Rhythm: regular rhythm Heart sounds: S1 normal heart sound present and S2 normal heart sound present GI Inspection: Yes normal to inspection Palpation (GI): Soft to palpation, nontender, no guarding and not rigid Percussion: Yes normal to percussion Auscultation: normal bowel sounds Skin Other: Skin tear left elbow Neuro General: No confusion Cranial nerves: Yes Equal, round and reactive pupils present Extrem Left upper extremity: full ROM, normal capillary refill, no joint enlargement and elbow/forearm Details: tenderness, laceration (Skin tear dorsal aspect elbow) and ecchymosis; Negative for no swelling and no unusual warmth; No no cyanosis and no edema Psych Appearance: grossly normal Affect: normal affect Attitude: cooperative Thought process: Normal thought process present Course Course Course Narrative: 81-year-old female with a past medical history of diabetes presents for a left elbow injury where she hit her left elbow against a metal door jam. Patient has negative x-ray, has a skin tear over her left dorsal elbow with significant ecchymosis. Gave tetanus, oxycodone, Steri-Strips, will give patient antibiotics due to her risk of infection being diabetic. In addition, patient had is tender with a lump above injury that just started today, will get ultrasound to rule out DVT US is DVT negative Applied Steri-Strips, gave return precautions of redness, swelling, warmth, counseled patient to follow-up with primary care provider FINDINGS: Bone alignment is normal. No fracture or dislocation is seen. There is a small osteophyte at the triceps tendon insertion to the olecranon. There is a small round 2 mm soft tissue calcification adjacent to the medial humeral condyle. There is no joint effusion. No soft tissue foreign body is seen.? XR/XR elbow LT min 3V IMPRESSION: No fracture or foreign body is seen. Discharge Plan Discharge Clinical Impression: Injury of elbow, left, Infected skin tear Patient Disposition: Home, Self-Care Prescriptions: New cephalexin 500 mg capsule 500 mg PO QID 7 Days Qty: 28 0RF No Action (DME) blood-glucose meter [OneTouch Verio Meter] Misc See Rx Instructions .Route Qty: 1 0RF Rx Instructions: As directed (DME) OneTouch Verio test strips Strip See Rx Instructions .Route Qty: 100 3RF Rx Instructions: test blood sugars once a day (DME) lancets [OneTouch Delica Lancets] 33 gauge misc See Rx Instructions .Route Qty: 100 3RF Rx Instructions: test blood sugar once a day allopurinol 300 mg tablet 1 tab PO DAILY 0RF albuterol sulfate 90 mcg/actuation HFA aerosol inhaler 2 inh inhalation Q4H PRN (Reason: Shortness Of Breath) 0RF calcipotriene 0.005 % ointment 1 appl topical BID 0RF Trelegy Ellipta 1 puff inhalation DAILY 0RF citalopram 20 mg tablet 40 mg PO DAILY 0RF furosemide 40 mg tablet 40 mg PO BIDWM 0RF pramipexole 0.25 mg tablet 0.25 mg PO BEDTIME 0RF pantoprazole 40 mg tablet,delayed release (DR/EC) 40 mg PO DAILY 0RF levothyroxine 100 mcg tablet 100 mcg PO DAILY 0RF ezetimibe 10 mg tablet 10 mg PO DAILY 0RF alcohol swabs Pads, Medicated 1 pad topical TIDAC Qty: 200 0RF gabapentin 300 mg capsule 600 mg PO TID 0RF losartan 25 mg tablet 25 mg PO DAILY 0RF sodium bicarbonate 325 mg tablet 325 mg PO QID PRN0RF
[2021-11-26] MEDS: Diphth,Pertus(ACell),Tet Adult 0.5 ML SYRINGE IM (12:06)
[2021-11-26] MEDS: oxyCODONE HCl Immed Release 5 MG TABLET PO (12:07)
== END 2021-11-26 13:44 | disposition home or self-care (01) ==
PROVIDERS: Emergency Provider Emergency Medicine; PCP Internal Medicine
DX: S41.112A Laceration without foreign body of left upper arm, initial encounter (principal); S50.312A Abrasion of left elbow, initial encounter; L08.9 Local infection of the skin and subcutaneous tissue, unspecified; R22.32 Localized swelling, mass and lump, left upper limb; Y28.9XXA Contact with unspecified sharp object, undetermined intent, initial encounter; Y93.9 Activity, unspecified; Y92.9 Unspecified place or not applicable; Y99.9 Unspecified external cause status; Z79.899 Other long term (current) drug therapy; Z87.891 Personal history of nicotine dependence
CPT/HCPCS: 73080; 76882; 90471; 90715; 99283; 99284

== ENCOUNTER 2021-12-03 09:51 | Outpatient (REF) | payer MEDICARE, SELFPAY ==
--- NOTE | 2021-12-03 11:05 | PFT_ITS ---
FLOWS: FEV1 of 113% of predicted at 1.87 L. FVC of 91% of predicted at 2.04 L. FEV1 to FVC ratio of 0.92. No bronchodilator response. LUNG VOLUMES: Total lung capacity 73% of predicted at 3.50 L. Residual volume 59% of predicted at 1.41 L. Slow vital capacity 86% of predicted at 2.09 L. Expiratory reserve volume 29% of predicted at 0.12 L. Diffusion capacity is severely decreased, diffusion capacity adjust to being moderately decreased after correction for alveolar ventilation. IMPRESSION: Mild restrictive ventilatory defect with no bronchodilator response. Decreased expiratory reserve volume suggests extrathoracic restriction likely secondary to abdominal obesity. Decreased diffusion capacity suggests emphysema. MD MONIQUE Garcia/MODL / [id number]
== END 2021-12-03 09:52 | disposition home or self-care (01) ==
LOC: HO.RESP 09:51
PROVIDERS: PCP Internal Medicine; Visit Provider Internal Medicine
DX: J44.9 Chronic obstructive pulmonary disease, unspecified (principal); J84.9 Interstitial pulmonary disease, unspecified
CPT/HCPCS: 94060; 94727; 94729

== ENCOUNTER → 2021-12-23 10:01 | Outpatient (BNVA) | payer MEDICARE, SELFPAY | PROVIDERS: PCP Internal Medicine; Visit Provider Internal Medicine | DX: J44.9 Chronic obstructive pulmonary disease, unspecified (principal); J84.9 Interstitial pulmonary disease, unspecified; J96.91 Respiratory failure, unspecified with hypoxia | CPT/HCPCS: 99212 ==

== ENCOUNTER 2022-02-17 14:28 | Emergency (ER) | payer OTHER, SELFPAY ==
--- NOTE | ~2022-02-17 | XR_ITS ---
EXAMINATION: XR HIP, RIGHT CLINICAL INFORMATION: Fall COMPARISON: None TECHNIQUE: Single view pelvis with Two views of the right hip. FINDINGS: Degenerative changes are present in the lower lumbosacral spine as well as both hips. No fractures are seen. A electronic stimulator pack is seen overlying the right buttock with leads extending upwards. XR/XR hip RT w PEL1V IMPRESSION: No acute fractures after the patient's fall
[2022-02-17 14:40] VITALS: BP 128/42; PULSE 86; RESP 16; TEMP 36.8; O2SAT 92; BMI 40.6
--- NOTE | 2022-02-17 17:50 | ED.FALL ---
HPI - Fall General Chief Complaint: Fall Stated Complaint: Fall/Back/Hip pain Time Seen by Provider: 02/17/22 15:40 Source: patient Mode of arrival: ambulatory Limitations: no limitations History of Present Illness HPI Narrative: Patient presents emergency department for evaluation after a fall. She states around 0230 this morning she slipped and fell while at home. She states she was going to the bathroom, and when walking past the dog's water bowl she slipped on water, and fell landing onto her right side. Denies head strike or loss of consciousness, denies blood thinners. She reports that soon after her family came downstairs and helped her get up. She is able to ambulate back to the chair that she sleeps in. She states as the day progressed her pain to the right hip was getting worse therefore she came to the emergency department. She states that her granddaughter told her that there is bruising to her buttock. Additionally reports that she is experiencing lower back pain, no worse than baseline. Related Data Home Medications Medication Instructions Recorded Confirmed Trelegy Ellipta 1 puff inhalation DAILY 08/27/21 12/23/21 albuterol sulfate 90 mcg/actuation 2 inh inhalation Q4H PRN Shortness 08/27/21 12/23/21 aerosol inhaler Of Breath calcipotriene 0.005 % topical 1 appl topical BID 08/27/21 12/23/21 ointment citalopram 20 mg tablet 40 mg PO DAILY 09/13/21 12/23/21 gabapentin 300 mg capsule 600 mg PO TID 10/01/21 12/23/21 sodium bicarbonate 325 mg tablet 325 mg PO QID PRN 10/21/21 12/23/21 ezetimibe 10 mg tablet 10 mg PO DAILY 11/13/21 12/23/21 furosemide 40 mg tablet 40 mg PO BIDWM 11/13/21 12/23/21 levothyroxine 100 mcg tablet 100 mcg PO DAILY 11/13/21 12/23/21 losartan 25 mg tablet 25 mg PO DAILY 11/13/21 12/23/21 pantoprazole 40 mg tablet,delayed 40 mg PO DAILY 11/13/21 12/23/21 release pramipexole 0.25 mg tablet 0.25 mg PO BEDTIME 11/13/21 12/23/21 Previous Rx's Medication Instructions Recorded alcohol swabs 1 pad topical TIDAC #200 ea 09/25/21 blood sugar diagnostic (OneTouch #100 ea 10/03/21 Verio test strips) blood-glucose meter (OneTouch #1 ea 10/03/21 Verio Meter) lancets 33 gauge (OneTouch Delica #100 ea 10/03/21 Lancets) albuterol sulfate 2.5 mg/3 mL 2.5 mg (3 mL) inhalation Q6H PRN 12/11/21 (0.083 %) solution for nebulization shortness of breath or wheezing 30 days #360 mL allopurinol 300 mg tablet 300 mg PO DAILY 30 days #30 tabs 02/04/22 oxycodone 5 mg tablet 5 mg PO Q8H PRN pain #10 tabs 02/17/22 Allergies Allergy/AdvReac Type Severity Reaction Status Date / Time NSAIDS (Non-Steroidal Allergy Unknown Verified 02/17/22 14:45 Anti-Inflamma Review of Systems Review of Systems: Constitutional: No fever, chills, weakness or fatigue. Skin: No rash or itching. Cardiovascular: No chest pain, chest pressure or chest discomfort. No palpitations Respiratory: No shortness of breath, cough or sputum production. Gastrointestinal: No anorexia, nausea, vomiting or diarrhea. No abdominal pain Genitourinary: No burning micturition. No urinary frequency or incontinence. Musculoskeletal: Positive joint pain Psychiatric: No depression or anxiety. Yes all other systems are reviewed and are negative [facility] Past Medical History Attestation statement: The following information was validated with the patient. Source: old records reviewed Medical History Acquired hypothyroidism COPD (chronic obstructive pulmonary disease) Depression, major, recurrent Diabetes Dyslipidemia Fibromyalgia Heart murmur Interstitial lung disease Kidney failure, acute Osteoarthritis of multiple joints Respiratory failure with hypoxia Type 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 Surgical History H/O hemorrhoidectomy Hx of fusion of cervical spine Hx of tonsillectomy S/P anal fissurectomy S/P appendectomy S/P partial hysterectomy Family History Family History Brother Substance use disorder Son Substance use disorder Daughter Substance use disorder Social History Social History Household Members: Children Housing: House Do you presently have visiting nurse or other home services: No Alcohol intake: never Patient Tobacco Use Status: Former Tobacco user Quit Date: 15 years ago Tobacco use type: Cigarette Cigarettes Per Day: 5 e-Cigarette/Vaping Use: Never Used Second Hand Smoke Exposure: No Advance Directives: Yes Advance Directives Information Provided: No Advance Directives on File: No Advance Directives Date on File: 08/28/21 service: No Current occupational status: retired Cognitive needs: No Hearing needs: No Vision needs: Yes Physical Exam Vital Signs: Vital Signs: Last Vital Signs Temp 98.3 F 02/17/22 14:40 Pulse 86 02/17/22 14:40 Resp 16 02/17/22 14:40 BP 128/42 L 02/17/22 14:40 Pulse Ox 92 02/17/22 14:40 O2 Del Method 02/17/22 14:40 BMI result Body Mass Index 40.6 Appearance: Alert.?Oriented to person, place and time. No acute distress.?Normal affect. Eyes: Pupils equal, round and reactive to light.? ENT: Pharynx normal.?? Neck: Normal inspection.? Neck supple.??No midline cervical spine tenderness, step-offs, deformities. Back: No midline thoracic or lumbar spine tenderness, step-offs, deformities. CVS: Heart sounds normal. Normal heart rate and rhythm.? Pulses normal.?? Respiratory: No respiratory distress.? Lung sounds clear to auscultation bilaterally?? Abdomen: Soft and non-tender. Normoactive bowel sounds. Skin: Skin warm and dry.? Normal skin color.? Extremities: No lower extremity edema.? No calf ttp. Decreased AROM to right hip, DP/PT pulse 2 +bilaterally, bruising to the right buttock from the coccyx and down laterally towards the hip Neuro: Moves all extremities spontaneously. Sensation intact bilaterally. CN II-XII intact. No focal neuro deficits. Ambulates with slow antalgic gait in the use of a cane Course Course Course Narrative: Patient is an 81-year-old female with a past medical history of interstitial lung disease, type 2 diabetes, depression, dyslipidemia, osteoarthritis, hypothyroidism, COPD, anemia, CKD stage IV who presents to the emergency department for evaluation after a fall. X-ray of the right hip and pelvis revealed degenerative changes of the hips and lumbar sacral spine, no acute fractures or dislocation. Physical exam notable bruising to the right buttock, mild tenderness upon palpation. No obvious deformities of the leg, full AROM to right knee. No spinal deformities or tenderness. No focal neurological deficits. No bladder or bowel dysfunction. She is able to ambulate with an antalgic gait and the use of a cane which is at her baseline. Offered evaluation for physical therapy and/or short-term rehab however patient declines. She has chronic back pain for which she uses Tylenol as needed, patient given a prescription for oxycodone to use as needed as Tylenol is not helping. MDM - Fall Medical Records Attestation: I reviewed the patient's medical records. Imaging Data hip XR: Radiologist's impression: FINDINGS: Degenerative changes are present in the lower lumbosacral spine as well as both hips. No fractures are seen. A electronic stimulator pack is seen overlying the right buttock with leads extending upwards.? XR/XR hip RT w PEL1V IMPRESSION: No acute fractures after the patient's fall Discharge Plan Discharge Clinical Impression: Contusion of hip, right Patient Disposition: Home, Self-Care Instructions: Hip Contusion (ED) Additional Instructions: As we discussed the x-ray of your right hip did not show any fracture or dislocation. You can take Tylenol 500 mg, 2 tablets (1,000mg) every 4-6 hours as needed for pain, but not to exceed 3 doses daily (3,000mg). You have been given a prescription for Oxycodone in the event that the Tylenol is not alleviating your pain. You were offered to have evaluation to determine whether you would be a candidate for physical therapy or short-term rehab however you declined. Please continue using your walker, and consider low lighting in the home, and de-cluttering spaces to prevent falls. Return to the emergency department any new or worsening symptoms or concerns. Follow-up with your primary care provider ? Prescriptions: New oxycodone 5 mg tablet 5 mg PO Q8H PRN (Reason: pain) Qty: 10 0RF Rx Instructions: Partial Fill upon patient request. No Action (DME) blood-glucose meter [Epulsuch Verio Meter] [facility] See Rx Instructions .Route Qty: 1 0RF Rx Instructions: As directed (DME) OneTouch Verio test strips Strip See Rx Instructions .Route Qty: 100 3RF Rx Instructions: test blood sugars once a day (DME) lancets [OneTouch Delica Lancets] 33 gauge misc See Rx Instructions .Route Qty: 100 3RF Rx Instructions: test blood sugar once a day allopurinol 300 mg tablet 300 mg PO DAILY 30 Days Qty: 30 0RF albuterol sulfate 90 mcg/actuation HFA aerosol inhaler 2 inh inhalation Q4H PRN (Reason: Shortness Of Breath) calcipotriene 0.005 % ointment 1 appl topical BID Trelegy Ellipta 1 puff inhalation DAILY citalopram 20 mg tablet 40 mg PO DAILY furosemide 40 mg tablet 40 mg PO BIDWM pramipexole 0.25 mg tablet 0.25 mg PO BEDTIME pantoprazole 40 mg tablet,delayed release (DR/EC) 40 mg PO DAILY levothyroxine 100 mcg tablet 100 mcg PO DAILY ezetimibe 10 mg tablet 10 mg PO DAILY alcohol swabs Pads, Medicated 1 pad topical TIDAC Qty: 200 0RF gabapentin 300 mg capsule 600 mg PO TID albuterol sulfate 2.5 mg /3 mL (0.083 %) solution for nebulization 2.5 mg inhalation Q6H PRN (Reason: shortness of breath or wheezing) 30 Days Qty: 360 0RF losartan 25 mg tablet 25 mg PO DAILY sodium bicarbonate 325 mg tablet 325 mg PO QID PRN Interventions: ED Discharge Assessment Last Done: 02/17/22 18:45 Discharge Date/Time: 02/17/22 18:46
== END 2022-02-17 18:46 | disposition home or self-care (01) ==
PROVIDERS: Emergency Provider Emergency Medicine; PCP Internal Medicine
DX: S70.01XA Contusion of right hip, initial encounter (principal); W01.0XXA Fall on same level from slipping, tripping and stumbling without subsequent striking against object, initial encounter; M54.50 Low back pain, unspecified; E11.22 Type 2 diabetes mellitus with diabetic chronic kidney disease; N18.4 Chronic kidney disease, stage 4 (severe); E78.5 Hyperlipidemia, unspecified; Y93.89 Activity, other specified; Y92.010 Kitchen of single-family (private) house as the place of occurrence of the external cause; Y99.9 Unspecified external cause status; Z87.891 Personal history of nicotine dependence
CPT/HCPCS: 73502; 99282; 99283

== ENCOUNTER 2022-02-20 17:43 | Emergency (ER) | payer OTHER, SELFPAY ==
--- NOTE | ~2022-02-20 | XR_ITS ---
EXAMINATION: XR CHEST CLINICAL INFORMATION: Cough COMPARISON: Chest x-ray 10/11/2021 TECHNIQUE: Frontal view of the chest was obtained. FINDINGS: No airspace consolidation. Linear areas of suspected scarring in the mid to lower lungs bilaterally as on prior. Slightly coarsened the interstitial reticular markings bilaterally. Indistinct costophrenic sulci, may represent mild pleural thickening or trace effusions. No pneumothorax. Unchanged cardiomediastinal silhouette. No cardiomegaly. No overt pulmonary edema. No acute osseous injury. Spinal stimulator leads project over the lower thoracic spine. XR/XR chest 1V IMPRESSION: 1. Mild bilateral scarring and chronic appearing increased interstitial reticular markings. No airspace consolidation.
[2022-02-20 17:50] VITALS: BP 139/76; PULSE 95; RESP 22; TEMP 37.3; O2SAT 94; BMI 41.1
[2022-02-20 21:52] VITALS: BP 136/37; PULSE 81; RESP 18; TEMP 36.8; O2SAT 98
--- NOTE | 2022-02-20 22:11 | ED_ITS ---
HPI - General Adult General Chief complaint: General Medical Stated complaint: vomiting coughing Time Seen by Provider: 02/20/22 21:58 Source: patient Mode of arrival: ambulatory Limitations: no limitations History of Present Illness HPI narrative: this is a very pleasant 81 years old female with history of O2 dependent COPD presented to the emergency department with a chief complaint of cough and congestion, also is complaining nausea symptoms have been ongoing for about for 4-5 days, she ambulated to the ED Onset (ago): day(s) (5) Radiation: non-radiation Severity: moderate Pain Consistency: constant Relieving factors: none Exacerbating factors: none Associated symptoms: denies other symptoms Related Data Home Medications Medication Instructions Recorded Confirmed Trelegy Ellipta 1 puff inhalation DAILY 08/27/21 12/23/21 albuterol sulfate 90 mcg/actuation 2 inh inhalation Q4H PRN Shortness 08/27/21 12/23/21 aerosol inhaler Of Breath calcipotriene 0.005 % topical 1 appl topical BID 08/27/21 12/23/21 ointment citalopram 20 mg tablet 40 mg PO DAILY 09/13/21 12/23/21 gabapentin 300 mg capsule 600 mg PO TID 10/01/21 12/23/21 sodium bicarbonate 325 mg tablet 325 mg PO QID PRN 10/21/21 12/23/21 ezetimibe 10 mg tablet 10 mg PO DAILY 11/13/21 12/23/21 furosemide 40 mg tablet 40 mg PO BIDWM 11/13/21 12/23/21 levothyroxine 100 mcg tablet 100 mcg PO DAILY 11/13/21 12/23/21 losartan 25 mg tablet 25 mg PO DAILY 11/13/21 12/23/21 pantoprazole 40 mg tablet,delayed 40 mg PO DAILY 11/13/21 12/23/21 release pramipexole 0.25 mg tablet 0.25 mg PO BEDTIME 11/13/21 12/23/21 Previous Rx's Medication Instructions Recorded alcohol swabs 1 pad topical TIDAC #200 ea 09/25/21 blood sugar diagnostic (Jumper NetworksTouch #100 ea 10/03/21 Verio test strips) blood-glucose meter (OneTouch #1 ea 10/03/21 Verio Meter) lancets 33 gauge (OneTouch Delica #100 ea 10/03/21 Lancets) albuterol sulfate 2.5 mg/3 mL 2.5 mg (3 mL) inhalation Q6H PRN 12/11/21 (0.083 %) solution for nebulization shortness of breath or wheezing 30 days #360 mL allopurinol 300 mg tablet 300 mg PO DAILY 30 days #30 tabs 02/04/22 oxycodone 5 mg tablet 5 mg PO Q8H PRN pain #10 tabs 02/17/22 doxycycline monohydrate 100 mg 100 mg PO BID #14 caps 02/20/22 capsule prednisone 20 mg tablet 40 mg PO DAILY #10 tabs 02/20/22 Allergies Allergy/AdvReac Type Severity Reaction Status Date / Time NSAIDS (Non-Steroidal Allergy Unknown Verified 02/17/22 14:45 Anti-Inflamma Review of Systems Constitutional: Constitutional: Reports no additional constitutional complaints ENT: Reports system reviewed and no additional complaints, except as documented Cardiovascular: Cardiovascular: Reports no additional cardiovascular complaints Respiratory: Respiratory: Reports chest congestion and Reports cough Neurologic: Reports system reviewed and no additional complaints, except as documented PMFSH Past Medical History Medical History Acquired hypothyroidism COPD (chronic obstructive pulmonary disease) Depression, major, recurrent Diabetes Dyslipidemia Fibromyalgia Heart murmur Interstitial lung disease Kidney failure, acute Osteoarthritis of multiple joints Respiratory failure with hypoxia Type 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 Surgical History H/O hemorrhoidectomy Hx of fusion of cervical spine Hx of tonsillectomy S/P anal fissurectomy S/P appendectomy S/P partial hysterectomy Family History Family History Brother Substance use disorder Son Substance use disorder Daughter Substance use disorder Social History Social History Household Members: Children Housing: House Do you presently have visiting nurse or other home services: No Alcohol intake: unknown Patient Tobacco Use Status: Former Tobacco user Quit Date: 15 years ago Tobacco use type: Cigarette Cigarettes Per Day: 5 e-Cigarette/Vaping Use: Never Used Second Hand Smoke Exposure: No Advance Directives Date on File: 08/28/21 service: No Current occupational status: retired Cognitive needs: No Hearing needs: No Vision needs: Yes Physical Exam ED Vital Signs: Vital Signs - 24 hr 02/20/22 17:50 02/20/22 21:52 Temperature 99.2 F 98.2 F Pulse Rate 95 81 Respiratory Rate 22 H 18 Blood Pressure 139/76 136/37 L Pulse Oximetry 94 98 Oxygen Delivery Method Nasal Cannula Nasal Cannula Oxygen Flow Rate 2 BMI result Body Mass Index 41.1 Const General: cooperative Nutritional Appearance: well nourished Orientation/consciousness: patient oriented x3 Limitations: no limitations HENMT Head: Yes normal to inspection General nose exam: Normal external nose present Face and sinus: Yes normal facial exam Mouth: Normal oral and palatal mucosa present Neck Neck: Yes normal visual inspection and Yes full ROM Chest Chest palpation & inspection: normal inspection of the chest Resp Effort & Inspection: able to speak in complete sentences, Actively coughing, no grunting and not labored Auscultation: rhonchi Cardio Jugular venous distension: no JVD Rate: regular rate Rhythm: regular rhythm GI Inspection: Yes normal to inspection Palpation (GI): Soft to palpation Neuro General: patient oriented x3 Cranial nerves: Yes CN's II-XII intact bilaterally Cognition (Neuro): normal cognition Course Reevaluation(s) Reevaluation #1: patient remained hemodynamically stable she oxygenating very well on her basel ine 2 L 98%. She is afebrile she has a normal white count, she has a respiratory rate of 18. We are going to treat her as a COPD exacerbation we will give doxycycline and a prednisone. Potassium was noted 5.5 she has chronic renal insufficiency she had hyperkalemia in the past September 24 ;September 25. I disclosed this to the patient I will give a dose of Kayexalate before she leaves the emergency department, she also got a dose of albuterol which usually lower the potassium,she will call reinforcing [employer] and re[employer] workers in [place].. Plan of care were discussed with the patient and the daughter they are very comfortable with the discharge Medical Decision Making Lab Data Result diagrams: 02/20/22 22:48 02/20/22 22:48 Labs: Lab Results 02/20/22 02/20/22 02/20/22 Range/Units 10:25 22:48 22:48 WBC 8.1 (4.8-10.8) X10*3/uL RBC 3.50 L (4.20-5.50) X10*6/uL Hgb 11.0 L (12.0-16.0) g/dl Hct 33.8 L (37.0-47.0) % MCV 96.6 (80.0-98.0) fL MCH 31.4 (27.0-33.0) pg MCHC 32.5 (31.0-35.0) g/dl RDW 14.6 (11.0-16.0) % Plt Count 181 D (160-400) X10*3/uL MPV 9.9 (9.4-12.3) fL Immature Gran % (Auto) 0.2 (0.0-0.4) % Neut % (Auto) 67.1 (45-73) % Lymph % (Auto) 18.9 L (20-40) % [place] % (Auto) 6.3 (2-11) % Eos % (Auto) 7.3 H (0-4) % Baso % (Auto) 0.2 (0-2) % Lymph # (Auto) 1.5 (1.2-4.9) X10*3/uL [place] # (Auto) 0.5 (0.1-1.2) X10*3/uL Eos # (Auto) 0.6 H (0.0-0.4) X10*3/uL Baso # (Auto) 0.0 (0.0-0.2) X10*3/uL Abs Immat Gran (auto) 0.02 (0.00-0.03) X10*3/uL Absolute Neuts (auto) 5.5 (2.0-8.3) x10*3/uL Absolute Nucleated RBC 0.000 (0.0-0.012) X10*3/uL Nucleated RBC % (auto) 0.0 (0.0-0.2) /100WBC Sodium 140 (135-145) mmol/L Potassium 5.5 H D (3.3-5.1) mmol/L Chloride 105 (96-108) mmol/L Carbon Dioxide 25 (22-29) mmol/L Anion Gap 16 (12-20) BUN 69 H D (9-16) mg/dL Creatinine 2.41 H (0.5-1.4) mg/dL Estim Creat Clear Calc 19.7 Estimated GFR 19 Random Glucose 107 (60-115) mg/dL Calcium 8.3 L D (8.4-10.2) mg/dL Total Bilirubin 0.9 (0.0-1.0) mg/dL AST 15 (5-31) U/L ALT 11 (0-31) U/L Alkaline Phosphatase 96 (39-117) U/L Total Protein 6.1 L (6.5-8.0) g/dL Albumin 3.5 (3.5-5.0) g/dL COVID-19 (ISAAK) Negative (Negative) COVID-19 Clin Com See Note Imaging Data Chest x-ray: Radiologist's impression: Chest x-ray 10/11/2021 TECHNIQUE: Frontal view of the chest was obtained. FINDINGS: No airspace consolidation. Linear areas of suspected scarring in the mid to lower lungs bilaterally as on prior. Slightly coarsened the interstitial reticular markings bilaterally. Indistinct costophrenic sulci, may represent mild pleural thickening or trace effusions. No pneumothorax. Unchanged cardiomediastinal silhouette. No cardiomegaly. No overt pulmonary edema. No acute osseous injury. Spinal stimulator leads project over the lower thoracic spine. XR/XR chest 1V IMPRESSION: ? 1. Mild bilateral scarring and chronic appearing increased interstitial reticular markings. No airspace consolidation. ? Dictated By: Gerardo Batista Signed By: <Electronically signed by Gerardo? Lester in [place]> 02/20/221908 Discharge Plan Discharge Clinical Impression: Bronchitis, chronic, COPD with exacerbation, Hyperkalemia Patient Disposition: Home, Self-Care Instructions: Chronic Bronchitis (ED), Hyperkalemia (ED), Chronic Lung Disease and Infection Prevention (ED) Additional Instructions: your potassium was elevated make you follow-up with your reinforcing [employer] and re[employer] workers call in am also take the antibiotic as directed return to the emergency room if you worse any concern Prescriptions: New doxycycline monohydrate 100 mg capsule 100 mg PO BID Qty: 14 0RF prednisone 20 mg tablet 40 mg PO DAILY Qty: 10 0RF No Action (DME) blood-glucose meter [OneTouch Verio Meter] Misc See Rx Instructions .Route Qty: 1 0RF Rx Instructions: As directed (DME) OneTouch Verio test strips Strip See Rx Instructions .Route Qty: 100 3RF Rx Instructions: test blood sugars once a day (DME) lancets [OneTouch Delica Lancets] 33 gauge misc See Rx Instructions .Route Qty: 100 3RF Rx Instructions: test blood sugar once a day allopurinol 300 mg tablet 300 mg PO DAILY 30 Days Qty: 30 0RF oxycodone 5 mg tablet 5 mg PO Q8H PRN (Reason: pain) Qty: 10 0RF Rx Instructions: Partial Fill upon patient request. albuterol sulfate 90 mcg/actuation HFA aerosol inhaler 2 inh inhalation Q4H PRN (Reason: Shortness Of Breath) calcipotriene 0.005 % ointment 1 appl topical BID Trelegy Ellipta 1 puff inhalation DAILY citalopram 20 mg tablet 40 mg PO DAILY furosemide 40 mg tablet 40 mg PO BIDWM pramipexole 0.25 mg tablet 0.25 mg PO BEDTIME pantoprazole 40 mg tablet,delayed release (DR/EC) 40 mg PO DAILY levothyroxine 100 mcg tablet 100 mcg PO DAILY ezetimibe 10 mg tablet 10 mg PO DAILY alcohol swabs Pads, Medicated 1 pad topical TIDAC Qty: 200 0RF gabapentin 300 mg capsule 600 mg PO TID albuterol sulfate 2.5 mg /3 mL (0.083 %) solution for nebulization 2.5 mg inhalation Q6H PRN (Reason: shortness of breath or wheezing) 30 Days Qty: 360 0RF losartan 25 mg tablet 25 mg PO DAILY sodium bicarbonate 325 mg tablet 325 mg PO QID PRN Referrals: Amy Morales MD [Primary Care Provider] - 2 days Interventions: ED Discharge Assessment Last Done: 02/21/22 00:15 Discharge Date/Time: 02/21/22 00:16
[2022-02-20 22:49] LABS: COVID-19 Test Negative (Negative)
[2022-02-20 22:54] LABS: MANUAL DIFF FLAG NO
[2022-02-20 22:55] LABS: Basophils Percent Auto 0.2 % (0-2); Eosinophils Absolute Auto 0.6 X10*3/uL (0.0-0.4); Eosinophils Percent Auto 7.3 % (0-4); Hematocrit 33.8 % (37.0-47.0); Imm Gran Abs Auto 0.02 X10*3/uL (0.00-0.03); Imm Gran Pct Auto 0.2 % (0.0-0.4); Lymphocytes Absolute Auto 1.5 X10*3/uL (1.2-4.9); Lymphocytes Percent Auto 18.9 % (20-40); Mean Corpuscular HGB Conc 32.5 g/dl (31.0-35.0); Mean Corpuscular Hemoglobin 31.4 pg (27.0-33.0); Mean Corpuscular Volume 96.6 fL (80.0-98.0); Mean Platelet Volume 9.9 fL (9.4-12.3); Monocytes Absolute Auto 0.5 X10*3/uL (0.1-1.2); Monocytes Percent Auto 6.3 % (2-11); Neutrophils Absolute Auto 5.5 x10*3/uL (2.0-8.3); Neutrophils Percent Auto 67.1 % (45-73); Platelet Count 181 X10*3/uL (160-400); Red Cell Distribution Width 14.6 % (11.0-16.0); White Blood Count 8.1 X10*3/uL (4.8-10.8)
[2022-02-20 23:10] LABS: Alanine Aminotransferase 11 U/L (0-31); Albumin Level 3.5 g/dL (3.5-5.0); Alkaline Phosphatase 96 U/L (39-117); Anion Gap 16 (12-20); Aspartate Amino Transferase 15 U/L (5-31); Bilirubin Total 0.9 mg/dL (0.0-1.0); Blood Urea Nitrogen 69 mg/dL (9-16); Calcium 8.3 mg/dL (8.4-10.2); Carbon Dioxide 25 mmol/L (22-29); Chloride 105 mmol/L (96-108); Creatinine Clr Calc Pharmacy 19.7; Estimated Glomerular Filt Rate 19; Glucose Random 107 mg/dL (60-115); Potassium 5.5 mmol/L (3.3-5.1); Sodium 140 mmol/L (135-145); Total Protein 6.1 g/dL (6.5-8.0)
[2022-02-20] MEDS: methylPREDNISolone Sod Succ 125 MG/2 ML VIAL IVPUSH (23:21)
[2022-02-20] MEDS: Albuterol/Iprat 2.5/0.5MG 3 ML AMPUL.NEB INHALE (23:46)
[2022-02-20 23:47] VITALS: PULSE 76; RESP 18; O2SAT 95
[2022-02-21] MEDS: Sodium Polystyrene Sulfon/Sorb 15 GM/60 ML ORAL.SUSP PO
== END 2022-02-21 00:16 | disposition home or self-care (01) ==
PROVIDERS: Emergency Provider Emergency Medicine; PCP Internal Medicine
DX: J42 Unspecified chronic bronchitis (principal); E87.5 Hyperkalemia; Z20.822 Contact with and (suspected) exposure to COVID-19; Z99.81 Dependence on supplemental oxygen
CPT/HCPCS: 36415; 71045; 80053; 85025; 87635; 94640; 96374; 99284; J2930

== ENCOUNTER → 2022-02-27 10:05 | Outpatient (BNVA) | payer OTHER, SELFPAY | PROVIDERS: PCP Internal Medicine; Referring Provider Internal Medicine; Visit Provider Internal Medicine | DX: R06.02 Shortness of breath (principal); J44.9 Chronic obstructive pulmonary disease, unspecified; E11.29 Type 2 diabetes mellitus with other diabetic kidney complication; I12.9 Hypertensive chronic kidney disease with stage 1 through stage 4 chronic kidney disease, or unspecified chronic kidney disease; E11.22 Type 2 diabetes mellitus with diabetic chronic kidney disease; N18.4 Chronic kidney disease, stage 4 (severe); E66.9 Obesity, unspecified; Z99.81 Dependence on supplemental oxygen; Z79.899 Other long term (current) drug therapy | CPT/HCPCS: 99212 ==

== ENCOUNTER 2022-02-27 10:55 | Outpatient (REF) | payer OTHER, SELFPAY ==
[2022-02-27 14:05] LABS: Estimated Average Glucose 117 mg/dL; Hemoglobin A1c % 5.7 %
[2022-02-27 14:12] LABS: Alanine Aminotransferase 17 U/L (0-31); Anion Gap 17 (12-20); Aspartate Amino Transferase 13 U/L (5-31); Blood Urea Nitrogen 78 mg/dL (9-16); Calcium 8.4 mg/dL (8.4-10.2); Carbon Dioxide 27 mmol/L (22-29); Chloride 104 mmol/L (96-108); Cholesterol 170 mg/dL; Estimated Glomerular Filt Rate 18; Glucose Fasting 103 mg/dL (60-99); HDL Cholesterol 41 mg/dL; LDL Cholesterol Calculated 101 mg/dl; Sodium 144 mmol/L (135-145); Triglycerides 141 mg/dL
[2022-02-27 14:28] LABS: Free T4 (Free Thyroxine) 1.39 ng/dL (0.71-1.85); Thyroid Stimulating Hormone 1.13 uIU/mL (0.32-4.0)
== END 2022-02-27 10:56 | disposition home or self-care (01) ==
LOC: HO.HMGCLDS 10:55
PROVIDERS: PCP Internal Medicine; Visit Provider Internal Medicine
DX: E11.29 Type 2 diabetes mellitus with other diabetic kidney complication (principal); E78.5 Hyperlipidemia, unspecified; E03.9 Hypothyroidism, unspecified
CPT/HCPCS: 36415; 80048; 80061; 82306; 83036; 84439; 84443; 84450; 84460

== ENCOUNTER → 2022-03-24 10:27 | Outpatient (BNVA) | payer OTHER, SELFPAY | PROVIDERS: PCP Internal Medicine; Visit Provider Internal Medicine | DX: J44.9 Chronic obstructive pulmonary disease, unspecified (principal); J84.9 Interstitial pulmonary disease, unspecified; J96.91 Respiratory failure, unspecified with hypoxia | CPT/HCPCS: 99212 ==

== ENCOUNTER 2022-03-27 15:01 | Outpatient (REF) | payer OTHER, SELFPAY ==
[2022-03-27 17:21] LABS: Anion Gap 17 (12-20); Blood Urea Nitrogen 43 mg/dL (9-16); Calcium 9.4 mg/dL (8.4-10.2); Carbon Dioxide 24 mmol/L (22-29); Chloride 106 mmol/L (96-108); Estimated Glomerular Filt Rate 22; Glucose Random 83 mg/dL (60-115); Potassium 5.3 mmol/L (3.3-5.1); Sodium 142 mmol/L (135-145)
== END 2022-03-27 15:02 | disposition home or self-care (01) ==
LOC: HO.HMGCLDS 15:01
PROVIDERS: PCP Internal Medicine; Visit Provider Internal Medicine
DX: D64.9 Anemia, unspecified (principal); E11.29 Type 2 diabetes mellitus with other diabetic kidney complication; E78.5 Hyperlipidemia, unspecified; N18.4 Chronic kidney disease, stage 4 (severe)
CPT/HCPCS: 36415; 80048

== ENCOUNTER 2022-04-03 15:15 | Outpatient (REF) | payer OTHER, SELFPAY ==
[2022-04-03 17:36] LABS: Anion Gap 20 (12-20); Blood Urea Nitrogen 52 mg/dL (9-16); Calcium 9.2 mg/dL (8.4-10.2); Carbon Dioxide 23 mmol/L (22-29); Chloride 101 mmol/L (96-108); Estimated Glomerular Filt Rate 17; Glucose Random 77 mg/dL (60-115); Sodium 139 mmol/L (135-145)
== END 2022-04-03 15:16 | disposition home or self-care (01) ==
LOC: HO.HMGCLDS 15:15
PROVIDERS: PCP Internal Medicine; Visit Provider Internal Medicine
DX: E87.5 Hyperkalemia (principal)
CPT/HCPCS: 36415; 80048

== ENCOUNTER 2022-06-27 12:11 | Outpatient (REF) | payer OTHER, SELFPAY ==
[2022-06-27 13:58] LABS: MANUAL DIFF FLAG NO
[2022-06-27 14:29] LABS: Basophils Percent Auto 0.4 % (0-2); Eosinophils Absolute Auto 0.6 X10*3/uL (0.0-0.4); Hematocrit 40.4 % (37.0-47.0); Hemoglobin 13.2 g/dl (12.0-16.0); Imm Gran Abs Auto 0.01 X10*3/uL (0.00-0.03); Imm Gran Pct Auto 0.1 % (0.0-0.4); Lymphocytes Absolute Auto 1.9 X10*3/uL (1.2-4.9); Lymphocytes Percent Auto 26.3 % (20-40); Mean Corpuscular HGB Conc 32.7 g/dl (31.0-35.0); Mean Corpuscular Hemoglobin 31.5 pg (27.0-33.0); Mean Corpuscular Volume 96.4 fL (80.0-98.0); Mean Platelet Volume 10.8 fL (9.4-12.3); Monocytes Absolute Auto 0.4 X10*3/uL (0.1-1.2); Neutrophils Absolute Auto 4.2 x10*3/uL (2.0-8.3); Neutrophils Percent Auto 59.2 % (45-73); Platelet Count 202 X10*3/uL (160-400); Red Blood Count 4.19 X10*6/uL (4.20-5.50); White Blood Count 7.1 X10*3/uL (4.8-10.8)
[2022-06-27 14:47] LABS: Estimated Average Glucose 114 mg/dL; Hemoglobin A1c % 5.6 %
[2022-06-27 15:08] LABS: Alanine Aminotransferase 17 U/L (0-31); Alkaline Phosphatase 101 U/L (39-117); Anion Gap 15 (12-20); Aspartate Amino Transferase 17 U/L (5-31); Bilirubin Total 0.7 mg/dL (0.0-1.0); Blood Urea Nitrogen 57 mg/dL (9-16); Calcium 9.3 mg/dL (8.4-10.2); Carbon Dioxide 28 mmol/L (22-29); Chloride 105 mmol/L (96-108); Cholesterol 190 mg/dL; Estimated Glomerular Filt Rate 18; Glucose Fasting 101 mg/dL (60-99); HDL Cholesterol 41 mg/dL; LDL Cholesterol Calculated 119 mg/dl; Potassium 4.4 mmol/L (3.3-5.1); Sodium 144 mmol/L (135-145); Total Protein 6.8 g/dL (6.5-8.0); Triglycerides 151 mg/dL
== END 2022-06-27 12:12 | disposition home or self-care (01) ==
LOC: HO.HMGCLDS 12:11
PROVIDERS: PCP Internal Medicine; Visit Provider Internal Medicine
DX: E11.22 Type 2 diabetes mellitus with diabetic chronic kidney disease (principal); E11.29 Type 2 diabetes mellitus with other diabetic kidney complication; E78.5 Hyperlipidemia, unspecified; N18.4 Chronic kidney disease, stage 4 (severe); D63.1 Anemia in chronic kidney disease
CPT/HCPCS: 36415; 80053; 80061; 83036; 84443; 85025

== ENCOUNTER → 2022-07-29 10:55 | Outpatient (BNVA) | payer MEDICARE, SELFPAY | PROVIDERS: PCP Internal Medicine; Visit Provider Internal Medicine | DX: J44.9 Chronic obstructive pulmonary disease, unspecified (principal); J84.9 Interstitial pulmonary disease, unspecified; J96.91 Respiratory failure, unspecified with hypoxia; Z79.899 Other long term (current) drug therapy; Z99.81 Dependence on supplemental oxygen | CPT/HCPCS: 99212 ==

== ENCOUNTER 2022-08-18 09:04 | Outpatient (REF) | payer MEDICARE, SELFPAY ==
--- NOTE | ~2022-08-18 | CT_ITS ---
EXAMINATION: CT CHEST WITHOUT CONTRAST, HIGH-RESOLUTION CLINICAL INFORMATION: Pulmonary disease. COMPARISON: None TECHNIQUE: Multidetector volumetric CT imaging of the chest, abdomen, and pelvis was obtained without contrast. Axial MIP volume rendering provided. Sagittal and coronal reformatted images were obtained. This CT examination was performed using dose optimization techniques as appropriate, variously including the following: *Automated exposure control *Adjustment of mA and/or kV according to patient size (this includes techniques or standardized protocols for targeted exams where dose is matched to indication/reason for exam; i.e. extremities or head) *Use of iterative reconstruction technique DLP: 249 mGy-cm FINDINGS: LUNGS: Nonspecific, bilateral, predominantly peripheral interstitial fibrotic changes with a basilar predominance. Associated honeycombing and/or traction bronchiectasis. No consolidation. No suspicious lung nodule identified. MEDIASTINUM: Mild coronary arterial calcification. Heart normal in size. No pericardial effusion. No evidence of mediastinal adenopathy by size criteria. PLEURA: There is no pleural effusion. No pleural mass or thickening. CHEST WALL/AXILLA: No lymphadenopathy by size criteria. UPPER ABDOMEN: Severe right renal atrophy. 1.9 cm or less, round, hypodense right renal lesion, incompletely imaged, impossible to characterize fully on the basis of this study alone. 2.9 cm, round, homogeneous, hypodense segment 4 hepatic lesion (image 50, series 7), impossible to characterize fully on the basis of this noncontrast study alone. In the absence of known or suspected malignancy elsewhere, the finding is statistically most likely to represent a benign entity, such as a simple cyst or hemangioma. OSSEOUS STRUCTURES: Spinal stimulation lead enters via T10-T11, with the tip of its lead at the posterior aspect of the spinal canal at T8-T9. Mild degenerative changes of the shoulders and thoracic spine. CT/CT chest wo con - High Res IMPRESSION: Nonspecific, bilateral, predominantly peripheral interstitial fibrotic changes with a basilar predominance. Associated honeycombing and/or traction bronchiectasis. Severe right renal atrophy. 1.9 cm or less, round, hypodense right renal lesion, incompletely imaged, impossible to characterize fully on the basis of this study alone. If no prior cross-sectional imaging of the right kidney becomes available, renal ultrasound may be of use to distinguish whether this structure is cystic or solid, if clinically desired.
== END 2022-08-18 09:05 | disposition home or self-care (01) ==
LOC: HO.CT 09:04
PROVIDERS: PCP Internal Medicine; Visit Provider Internal Medicine
DX: J96.91 Respiratory failure, unspecified with hypoxia (principal); J84.9 Interstitial pulmonary disease, unspecified; J44.9 Chronic obstructive pulmonary disease, unspecified
CPT/HCPCS: 71250

== ENCOUNTER 2022-08-29 07:15 | Outpatient (REF) | payer MEDICARE, SELFPAY ==
--- NOTE | ~2022-08-29 | XR_ITS ---
EXAMINATION: XR SHOULDER, RIGHT CLINICAL INFORMATION: Pain. COMPARISON: None TECHNIQUE: AP neutral, scapular Y, and axillary views of the right shoulder. FINDINGS: There is bony demineralization. The glenohumeral joint is intact and shows mild osteoarthritic change. There is calcific tendinitis of the right rotator cuff insertion. The acromioclavicular and coracoclavicular intervals are normal. No fracture or dislocation is seen. There is no right pneumothorax. XR/XR shoulder LT min 2V IMPRESSION: 1. There is mild osteoarthritic change of the right glenohumeral joint. 2. There is calcific tendinitis of the right rotator cuff insertion. EXAMINATION: XR SHOULDER, LEFT CLINICAL INFORMATION: Pain. COMPARISON: None TECHNIQUE: AP neutral, scapular Y, and axillary views of the left shoulder. FINDINGS: There is bony demineralization. The glenohumeral joint is intact and shows slight peripheral osteophyte formation. There is calcific tendinitis of the left rotator cuff insertion. The acromioclavicular and coracoclavicular intervals are normal. There is very mild osteoarthritic change of the acromioclavicular joint. No fracture or dislocation is seen. There is no left pneumothorax. IMPRESSION: 1. There is very mild osteoarthritic change of the left glenohumeral and acromioclavicular joints. 2. There is calcific tendinitis of the left rotator cuff insertion.
--- NOTE | ~2022-08-29 | XR_ITS ---
EXAMINATION: XR SHOULDER, RIGHT CLINICAL INFORMATION: Pain. COMPARISON: None TECHNIQUE: AP neutral, scapular Y, and axillary views of the right shoulder. FINDINGS: There is bony demineralization. The glenohumeral joint is intact and shows mild osteoarthritic change. There is calcific tendinitis of the right rotator cuff insertion. The acromioclavicular and coracoclavicular intervals are normal. No fracture or dislocation is seen. There is no right pneumothorax. XR/XR shoulder RT min 2V IMPRESSION: 1. There is mild osteoarthritic change of the right glenohumeral joint. 2. There is calcific tendinitis of the right rotator cuff insertion. EXAMINATION: XR SHOULDER, LEFT CLINICAL INFORMATION: Pain. COMPARISON: None TECHNIQUE: AP neutral, scapular Y, and axillary views of the left shoulder. FINDINGS: There is bony demineralization. The glenohumeral joint is intact and shows slight peripheral osteophyte formation. There is calcific tendinitis of the left rotator cuff insertion. The acromioclavicular and coracoclavicular intervals are normal. There is very mild osteoarthritic change of the acromioclavicular joint. No fracture or dislocation is seen. There is no left pneumothorax. IMPRESSION: 1. There is very mild osteoarthritic change of the left glenohumeral and acromioclavicular joints. 2. There is calcific tendinitis of the left rotator cuff insertion.
== END 2022-08-29 07:16 | disposition home or self-care (01) ==
LOC: HO.HOSX 07:15
PROVIDERS: Visit Provider Physician Assistant
DX: M19.011 Primary osteoarthritis, right shoulder (principal); M19.012 Primary osteoarthritis, left shoulder
CPT/HCPCS: 20610; 73030; 99202; J1020

== ENCOUNTER → 2022-09-11 10:06 | Outpatient (BNVA) | payer MEDICARE, SELFPAY | PROVIDERS: PCP Internal Medicine; Referring Provider Internal Medicine; Visit Provider Internal Medicine | DX: R06.02 Shortness of breath (principal); N18.4 Chronic kidney disease, stage 4 (severe); J44.9 Chronic obstructive pulmonary disease, unspecified | CPT/HCPCS: 93005; 99212 ==

== ENCOUNTER → 2022-09-17 13:28 | Outpatient (BNVA) | payer MEDICARE, SELFPAY | PROVIDERS: PCP Internal Medicine; Visit Provider Physician Assistant | DX: M19.011 Primary osteoarthritis, right shoulder (principal) | CPT/HCPCS: 20610; 99212; J1020 ==

== ENCOUNTER 2022-10-10 05:33 | Outpatient (REF) | payer MEDICARE, SELFPAY ==
--- NOTE | ~2022-10-10 | XR_ITS ---
EXAMINATION: X-RAY BILATERAL KNEES XR KNEE AP STANDING CLINICAL INFORMATION: Pain. COMPARISON: None available. TECHNIQUE: AP bilateral standing view of the knees was obtained. Lateral and sunrise views of both knees were obtained. FINDINGS: No acute compression deformity or malalignment. Severe tricompartmental degenerative osteoarthritis with joint space narrowing, subcortical sclerosis and osteophytes. Bilateral chondrocalcinosis. Small bilateral joint effusions. XR/XR knee standing BI IMPRESSION: 1. No acute compression deformity or malalignment. 2. Severe tricompartmental degenerative osteoarthritis. 3. Bilateral chondrocalcinosis. 4. Small bilateral joint effusions.
--- NOTE | ~2022-10-10 | XR_ITS ---
EXAMINATION: X-RAY BILATERAL KNEES XR KNEE AP STANDING CLINICAL INFORMATION: Pain. COMPARISON: None available. TECHNIQUE: AP bilateral standing view of the knees was obtained. Lateral and sunrise views of both knees were obtained. FINDINGS: No acute compression deformity or malalignment. Severe tricompartmental degenerative osteoarthritis with joint space narrowing, subcortical sclerosis and osteophytes. Bilateral chondrocalcinosis. Small bilateral joint effusions. XR/XR knee LT 2V IMPRESSION: 1. No acute compression deformity or malalignment. 2. Severe tricompartmental degenerative osteoarthritis. 3. Bilateral chondrocalcinosis. 4. Small bilateral joint effusions.
--- NOTE | ~2022-10-10 | XR_ITS ---
EXAMINATION: X-RAY BILATERAL KNEES XR KNEE AP STANDING CLINICAL INFORMATION: Pain. COMPARISON: None available. TECHNIQUE: AP bilateral standing view of the knees was obtained. Lateral and sunrise views of both knees were obtained. FINDINGS: No acute compression deformity or malalignment. Severe tricompartmental degenerative osteoarthritis with joint space narrowing, subcortical sclerosis and osteophytes. Bilateral chondrocalcinosis. Small bilateral joint effusions. XR/XR knee RT 2V IMPRESSION: 1. No acute compression deformity or malalignment. 2. Severe tricompartmental degenerative osteoarthritis. 3. Bilateral chondrocalcinosis. 4. Small bilateral joint effusions.
== END 2022-10-10 05:34 | disposition home or self-care (01) ==
LOC: HO.HOSX 05:33
PROVIDERS: Visit Provider Physician Assistant
DX: M17.0 Bilateral primary osteoarthritis of knee (principal)
CPT/HCPCS: 20610; 73560; 73565; 99212; J1020

== ENCOUNTER → 2022-10-15 09:30 | Outpatient (BNVA) | payer MEDICARE, SELFPAY | PROVIDERS: PCP Internal Medicine; Visit Provider Physician Assistant | DX: M17.0 Bilateral primary osteoarthritis of knee (principal) | CPT/HCPCS: 20610; 99212; J1020 ==

== ENCOUNTER 2022-10-27 11:25 | Outpatient (REF) | payer MEDICARE, SELFPAY ==
[2022-10-27 14:18] LABS: Hematocrit 40.2 % (37.0-47.0); Hemoglobin 13.1 g/dl (12.0-16.0); Mean Corpuscular HGB Conc 32.6 g/dl (31.0-35.0); Mean Corpuscular Hemoglobin 31.8 pg (27.0-33.0); Mean Corpuscular Volume 97.6 fL (80.0-98.0); Mean Platelet Volume 11.5 fL (9.4-12.3); Platelet Count 200 X10*3/uL (160-400); Red Blood Count 4.12 X10*6/uL (4.20-5.50); Red Cell Distribution Width 13.9 % (11.0-16.0); White Blood Count 8.1 X10*3/uL (4.8-10.8)
[2022-10-27 14:35] LABS: Estimated Average Glucose 114 mg/dL; Hemoglobin A1c % 5.6 %
[2022-10-27 14:40] LABS: Alanine Aminotransferase 13 U/L (0-31); Albumin Level 3.8 g/dL (3.5-5.0); Alkaline Phosphatase 113 U/L (39-117); Anion Gap 13 (12-20); Aspartate Amino Transferase 12 U/L (5-31); Bilirubin Total 0.7 mg/dL (0.0-1.0); Blood Urea Nitrogen 65 mg/dL (9-16); Calcium 8.7 mg/dL (8.4-10.2); Carbon Dioxide 28 mmol/L (22-29); Chloride 106 mmol/L (96-108); Cholesterol 191 mg/dL; Estimated Glomerular Filt Rate 18; Glucose Fasting 107 mg/dL (60-99); HDL Cholesterol 52 mg/dL; LDL Cholesterol Calculated 123 mg/dl; Potassium 4.5 mmol/L (3.3-5.1); Sodium 142 mmol/L (135-145); Total Protein 6.4 g/dL (6.5-8.0); Triglycerides 82 mg/dL
[2022-10-27 14:43] LABS: Microalbum/Creatinine Ratio Ur 12.3 ug/mg cr
== END 2022-10-27 11:26 | disposition home or self-care (01) ==
LOC: HO.HMGCLDS 11:25
PROVIDERS: PCP Internal Medicine; Visit Provider Internal Medicine
DX: E11.29 Type 2 diabetes mellitus with other diabetic kidney complication (principal); E78.5 Hyperlipidemia, unspecified; F33.9 Major depressive disorder, recurrent, unspecified; J44.9 Chronic obstructive pulmonary disease, unspecified; N18.4 Chronic kidney disease, stage 4 (severe)
CPT/HCPCS: 36415; 80053; 80061; 82043; 83036; 85027

== ENCOUNTER 2022-11-03 08:26 | Outpatient (REF) | payer MEDICARE, SELFPAY ==
--- NOTE | ~2022-11-03 | CT_ITS ---
EXAMINATION: CT ABDOMEN AND PELVIS WITHOUT CONTRAST CLINICAL INFORMATION: Abdominal pain COMPARISON: None available. TECHNIQUE: Multidetector volumetric imaging was performed from the superior aspect of the liver through the pubic symphysis. Sagittal and coronal reformatted images were obtained on the technologist's workstation. This CT examination was performed using dose optimization techniques as appropriate, variously including the following: *Automated exposure control *Adjustment of mA and/or kV according to patient size (this includes techniques or standardized protocols for targeted exams where dose is matched to indication/reason for exam; i.e. extremities or head) *Use of iterative reconstruction technique DLP: 779 mGy-cm FINDINGS: LUNG BASES: There are increased peripheral interstitial markings at the lung bases suggestive of interstitial lung disease LIVER, GALLBLADDER, AND BILIARY TREE: 3 cm cysts in the lateral segment of the left lobe of the liver near the falciform ligament. No other focal liver lesion. High attenuation in the gallbladder questionable for a gallstone sludge. The gallbladder is otherwise normal. PANCREAS: Fatty infiltration of the pancreas. SPLEEN: Question 1 cm low-attenuation lesion in the spleen axial image 22 series 3. ADRENAL GLANDS: Unremarkable. KIDNEYS AND URETERS: Both kidneys are small. There is right renal cortical thinning. 5 cm cyst exophytic to the lower pole the right kidney. No imaging follow-up recommended. Abnormal contour to the lateral upper pole of the right kidney axial image 28 series 3. It is uncertain whether this represents normal renal cortex squared by cortical thinning or represent a focal lesion. The left kidney is otherwise normal. BLADDER: Unremarkable. GASTROINTESTINAL TRACT: Diverticulosis of the colon. No evidence of diverticulitis. Constipation. Small and large bowel are otherwise normal. The appendix is not seen and appears to have been removed. ABDOMINAL WALL: Umbilical hernia containing fat. LYMPH NODES: Normal. VASCULAR: Atherosclerotic disease. No aneurysm. PELVIC VISCERA: Uterus not seen and may have been removed. No pelvic mass. OSSEOUS STRUCTURES: Degenerative changes of the spine and hip joints. There is a stimulator leads the lower thoracic spinal canal. CT/CT abdomen pelvis wo IV con IMPRESSION: Diverticulosis and constipation. Liver and right renal cysts. Right renal cortical thinning. Question lesion in the upper pole right kidney versus normal thickness cortex. Follow-up renal ultrasound recommended. Fatty infiltration of the pancreas. Umbilical hernia containing fat. Interstitial lung disease Fleischner guidelines were followed.
[2022-11-03] MEDS: Barium Sulfate Oral (Vanilla) 450 ML ORAL.SUSP 900 ML PO (10:54)
== END 2022-11-03 08:27 | disposition home or self-care (01) ==
LOC: HO.CT 08:26
PROVIDERS: PCP Internal Medicine; Visit Provider Internal Medicine
DX: R10.9 Unspecified abdominal pain (principal); K57.92 Diverticulitis of intestine, part unspecified, without perforation or abscess without bleeding
CPT/HCPCS: 74176

== ENCOUNTER 2022-11-12 09:47 | Outpatient (REF) | payer MEDICARE, SELFPAY ==
--- NOTE | ~2022-11-12 | US_ITS ---
EXAMINATION: US RETROPERITONEAL LIMITED (RENAL ONLY) CLINICAL INFORMATION: Mass of right kidney. COMPARISON: CT abdomen and pelvis 11/03/2022. TECHNIQUE: Real-time imaging of the kidneys. FINDINGS: RIGHT KIDNEY: 10.6 x 3.7 x 4.2 cm (SAG x AP x TRV). The right kidney is small. There is right renal cortical thinning and increased echogenicity. There is a 4.7 x 3.9 x 4 cm minimally complex cyst with several thin septations or Bosniak 2F type cyst. No imaging follow-up recommended. The upper pole the right kidney in the area of question by CT is difficult to evaluate by ultrasound as the echogenic renal cortex is similar in echotexture to the adjacent perinephric fat. No renal mass is appreciated. No hydronephrosis. No renal stone. LEFT KIDNEY: 8.8 x 4.8 x 4.3 cm (SAG x AP x TRV). The left kidney is small. There is left renal cortical thinning and increased echogenicity. There is question of a 1 cm cyst in the midpole versus prominent pyramid. No renal mass. No renal stone. ADDITIONAL FINDINGS: US/US renal BI IMPRESSION: Small kidneys with cortical thinning and increased renal echogenicity. 4 cm right renal cyst. No imaging follow-up recommended. Limited evaluation of the kidneys due to increased cortical echogenicity similar to the adjacent perinephric fat. No mass is appreciated on this exam.
== END 2022-11-12 09:48 | disposition home or self-care (01) ==
LOC: HO.HMGCX 09:47
PROVIDERS: PCP Internal Medicine; Visit Provider Internal Medicine
DX: N28.89 Other specified disorders of kidney and ureter (principal)
CPT/HCPCS: 76775

== ENCOUNTER → 2022-11-27 09:37 | Outpatient (BNVA) | payer MEDICARE, SELFPAY | PROVIDERS: PCP Internal Medicine; Visit Provider Internal Medicine | DX: J44.9 Chronic obstructive pulmonary disease, unspecified (principal); J84.9 Interstitial pulmonary disease, unspecified; J96.91 Respiratory failure, unspecified with hypoxia; R05.9 Cough, unspecified; Z99.81 Dependence on supplemental oxygen | CPT/HCPCS: 94618; 99212 ==

== ENCOUNTER → 2022-12-03 10:25 | Outpatient (BNVA) | payer MEDICARE, SELFPAY | PROVIDERS: PCP Internal Medicine; Visit Provider Surgery | DX: K42.9 Umbilical hernia without obstruction or gangrene (principal) | CPT/HCPCS: 99202 ==

== ENCOUNTER 2022-12-27 16:51 | Emergency (ER) | payer MEDICARE, SELFPAY ==
[2022-12-27 16:58] VITALS: BP 102/48; BP 94/48; PULSE 82; PULSE 83; RESP 22; TEMP 36.8; O2SAT 95; BMI 41.5
--- NOTE | 2022-12-27 17:06 | ED.GENADULT ---
HPI - General Adult General Chief complaint: General Medical Stated complaint: AMS, GENERAL MALAISE Time Seen by Provider: 12/27/22 16:54 Source: patient and EMS Mode of arrival: EMS Limitations: no limitations History of Present Illness HPI narrative: Patient comes to the emergency room via ambulance from home. Family convince the patient to come to emergency room to get checked out. Since that earlier in the morning patient had several hallucinations. Patient states that she took oxycodone for pain, shortly after she started hallucinating, seeing things in the ceiling. At this time, patient denies hallucinations. Patient states that she got the oxycodone prescribed from surgery. Four days ago, patient had surgery, a dialysis catheter was inserted. Patient denies using any other drugs or alcohol. Related Data Home Medications Medication Instructions Recorded Confirmed calcipotriene 0.005 % topical 1 appl topical BID 08/27/21 10/30/22 ointment sodium bicarbonate 325 mg tablet 650 mg PO BID 02/27/22 10/30/22 furosemide 40 mg tablet 40 mg PO BID 03/27/22 10/30/22 allopurinol 100 mg tablet 100 mg PO DAILY 09/11/22 10/30/22 citalopram 20 mg tablet 20 mg PO DAILY 10/30/22 10/30/22 famotidine 20 mg tablet 20 mg PO DAILY 10/30/22 10/30/22 gabapentin 300 mg capsule 600 mg PO TID 10/30/22 10/30/22 Previous Rx's Medication Instructions Recorded alcohol swabs 1 pad topical TIDAC #200 ea 09/25/21 blood sugar diagnostic (OneTouch #100 ea 10/03/21 Verio test strips) blood-glucose meter (OneTouch #1 ea 10/03/21 Verio Meter) lancets 33 gauge (OneTouch Delica #100 ea 10/03/21 Lancets) albuterol sulfate 2.5 mg/3 mL 2.5 mg (3 mL) inhalation Q6H PRN 12/11/21 (0.083 %) solution for nebulization shortness of breath or wheezing 30 days #360 mL ezetimibe 10 mg tablet 10 mg PO DAILY #90 tabs 04/03/22 fluticasone fur. 100 mcg-umeclid 1 inh inhalation DAILY #180 ea 04/03/22 62.5 mcg-vilant 25 mcg inhalat.powder (Trelegy Ellipta) levothyroxine 100 mcg tablet 100 mcg PO DAILY #90 tabs 04/03/22 pantoprazole 40 mg tablet,delayed 40 mg PO DAILY #90 tabs 04/03/22 release pramipexole 0.25 mg tablet 0.25 mg PO BEDTIME #90 tabs 04/03/22 losartan 25 mg tablet 25 mg PO DAILY #30 tabs 08/07/22 albuterol sulfate 90 mcg/actuation 2 puff PO Q4H PRN for dyspnea #1 ea 09/12/22 aerosol inhaler hospital bed #1 ea 11/03/22 doxycycline hyclate 100 mg tablet 100 mg PO BID BRONCHITIS 10 days 11/27/22 #20 tabs prednisone 10 mg tablet 10 mg PO BID PULMONARY FIBROSIS 7 11/27/22 days #14 tabs tramadol 50 mg tablet 50 mg PO BID PRN pain #7 tabs 12/27/22 Allergies Allergy/AdvReac Type Severity Reaction Status Date / Time NSAIDS (Non-Steroidal Allergy Unknown Verified 12/03/22 10:33 Anti-Inflamma [id number] Reductase AdvReac Severe LEG PAIN Verified 12/03/22 10:33 Inhibitor Review of Systems Review of Systems: Constitutional : No Weight loss, No Fever, No Chills, No Night Sweats, No Fatigue, No Malaise ENT/Mouth : No Hearing loss, No Ear Pain, No Nasal Congestion, No Sinus Pain, No Hoarseness, No sore throat, No Rhinorrhea, No Swallowing Difficulty Eyes: No Eye Pain, No Swelling, No Redness, No Foreign Body, No Discharge, No Vision Changes Cardiovascular : No Chest Pain, No SOB, No Dyspnea on Exertion, No Orthopnea, No Edema, No Palpitations Respiratory : No Cough, No Sputum, No Wheezing, No Smoke Exposure, No Dyspnea Gastrointestinal : No Nausea, No Vomiting, No Diarrhea, No Constipation, No abdominal Pain, No Hematochezia, No Melena Genitourinary : no irregular bleeding, No Dysuria, No Urinary Frequency, No Hematuria, No Urinary Incontinence, No Urgency, No Flank Pain, No Urinary Flow Changes, No Hesitancy Musculoskeletal : No joint pain, No Myalgias, No Joint Swelling Skin : No Skin Lesions, No rash Neuro : No Weakness, No Numbness, No Paresthesias, No Loss of Consciousness, No Dizziness, No Headache Psych : No Anxiety/Panic, No Depression, No SI/HI/AH/VH, No Social Issues, Heme/Lymph: No Bruising, No Bleeding,No Lymphadenopathy Endocrine : No Polyuria, No Polydipsia, No Temperature Intolerance [facility] Past Medical History Medical History Acquired hypothyroidism COPD (chronic obstructive pulmonary disease) Cough Depression, major, recurrent Diabetes Dyslipidemia Fibromyalgia Heart murmur Interstitial lung disease Kidney failure, acute Osteoarthritis of multiple joints Respiratory failure with hypoxia Type 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 Surgical History H/O hemorrhoidectomy Hx of fusion of cervical spine Hx of tonsillectomy S/P anal fissurectomy S/P appendectomy S/P partial hysterectomy Family History Family History Brother Substance use disorder Son Substance use disorder Daughter Substance use disorder Social History Social History Household Members: Children Housing: House Do you presently have visiting nurse or other home services: No Alcohol intake: current Alcohol intake frequency: holidays/special occasions only Patient Tobacco Use Status: Former Tobacco user Quit Date: 15 years ago Years Smoked: 20 +/- on and off Smoked in Last 30 Days: No e-Cigarette/Vaping Use: Never Used Second Hand Smoke Exposure: No Use of substances other than those prescribed or required for medical reasons: No Advance Directives: Yes Advance Directives on File: Yes Advance Directives Date on File: 08/28/21 service: No Current occupational status: retired Current occupation: right handed Cognitive needs: No Hearing needs: No Vision needs: Yes Physical Exam ED Vital Signs: Vital Signs - 24 hr 12/27/22 16:58 12/27/22 18:00 12/27/22 18:49 Temperature 98.2 F 98.0 F Pulse Rate 83 90 84 Respiratory Rate 22 H 15 17 Blood Pressure 102/48 L 123/58 L Pulse Oximetry 95 96 96 Oxygen Delivery Method Nasal Cannula Nasal Cannula Nasal Cannula Oxygen Flow Rate 2 2 BMI result Body Mass Index 41.5 Const Other: Appearance: Alert. Oriented X3. No acute distress. Eyes: Pupils equal, round and reactive to light. ENT: Pharynx normal. Neck: Normal inspection. Neck supple. No lymph nodes noted. No crepitus CVS: Normal heart rate and rhythm. Pulses normal. Normal S1 and S2 Respiratory: No respiratory distress. On 2 L, chronic wheezing and crackles Abdomen: Soft and nontender. No rigidity. No distention. Skin: Skin warm and dry. Normal skin color. Normal skin turgor. Extremities: No lower extremity edema. No Lacerations. No Rash Neuro: Oriented X 3. No motor deficit. No sensory deficit. Moving all extremities. No slurred speech. CN 2 through 12 grossly intact Psych: calm, cooperative, normal affect Course Course Course Narrative: -this time, patient has no new complaints, states she is no longer hallucinating. Patient states the hallucination was secondary to taking oxycodone. All patient's labs pending Medical Decision Making Medical Decision Making [facility] Narrative: -patient is asymptomatic. -patient no longer hallucinating. Patient likely has hallucinations after using opiates. -we will be switching patient's medication from oxycodone to tramadol, instructing the patient to try Tylenol 1st Lab Data [facility] Lab Attestation statement: I reviewed the patient's lab results. 12/27/22 17:25 12/27/22 17:25 Labs: Lab Results 12/27/22 12/27/22 12/27/22 Range/Units 17:25 17:25 18:09 WBC 7.5 (4.8-10.8) X10*3/uL RBC 3.33 L (4.20-5.50) X10*6/uL Hgb 10.7 L (12.0-16.0) g/dl Hct 32.5 L (37.0-47.0) % MCV 97.6 (80.0-98.0) fL MCH 32.1 (27.0-33.0) pg MCHC 32.9 (31.0-35.0) g/dl RDW 14.5 (11.0-16.0) % Plt Count 186 (160-400) X10*3/uL MPV 10.4 (9.4-12.3) fL Immature Gran % (Auto) 0.4 (0.0-0.4) % Neut % (Auto) 56.4 (45-73) % Lymph % (Auto) 30.3 (20-40) % Towns % (Auto) 8.6 (2-11) % Eos % (Auto) 3.8 (0-4) % Baso % (Auto) 0.5 (0-2) % Lymph # (Auto) 2.3 (1.2-4.9) X10*3/uL Towns # (Auto) 0.6 (0.1-1.2) X10*3/uL Eos # (Auto) 0.3 (0.0-0.4) X10*3/uL Baso # (Auto) 0.0 (0.0-0.2) X10*3/uL Abs Immat Gran (auto) 0.03 (0.00-0.03) X10*3/uL Absolute Neuts (auto) 4.2 (2.0-8.3) x10*3/uL Absolute Nucleated RBC 0.000 (0.0-0.012) X10*3/uL Nucleated RBC % (auto) 0.0 (0.0-0.2) /100WBC Sodium 134 L (135-145) mmol/L Potassium 4.8 (3.3-5.1) mmol/L Chloride 101 (96-108) mmol/L Carbon Dioxide 21 L (22-29) mmol/L Anion Gap 17 (12-20) BUN 61 H (9-16) mg/dL Creatinine 3.98 H (0.5-1.4) mg/dL Estim Creat Clear Calc 11.8 Estimated GFR 11 Random Glucose 105 (60-115) mg/dL Calcium 8.6 (8.4-10.2) mg/dL Total Bilirubin 0.6 (0.0-1.0) mg/dL Direct Bilirubin 0.1 (0.0-0.5) mg/dL AST 26 (5-31) U/L ALT 6 (0-31) U/L Alkaline Phosphatase 96 (39-117) U/L Total Protein 6.1 L (6.5-8.0) g/dL Albumin 3.2 L (3.5-5.0) g/dL TSH 3.58 (0.32-4.0) uIU/mL Urine Color Yellow Urine Appearance Clear Urine pH 5.0 (5.0-9.0) Ur Specific [place] 1.015 (1.005-1.025) Urine Protein Negative (Neg-Trace) mg/dL Urine Glucose (UA) Negative (Negative) mg/dL Urine Ketones Negative (Negative) mg/dL Urine Blood Negative (Negative) Urine Nitrite Negative (Negative) Ur Leukocyte Esterase Negative (Negative) Urine Opiates Screen (Not Detect) Urine Fentanyl Screen (Not Detect) Ur Barbiturates Screen (Not Detect) Ur Phencyclidine Scrn (Not Detect) Ur Amphetamines Screen (Not Detect) U Benzodiazepines Scrn (Not Detect) Urine Cocaine Screen (Not Detect) U Marijuana (THC) Screen (Not Detect) 12/27/22 Range/Units 18:09 WBC (4.8-10.8) X10*3/uL RBC (4.20-5.50) X10*6/uL Hgb (12.0-16.0) g/dl Hct (37.0-47.0) % MCV (80.0-98.0) fL MCH (27.0-33.0) pg MCHC (31.0-35.0) g/dl RDW (11.0-16.0) % Plt Count (160-400) X10*3/uL MPV (9.4-12.3) fL Immature Gran % (Auto) (0.0-0.4) % Neut % (Auto) (45-73) % Lymph % (Auto) (20-40) % Towns % (Auto) (2-11) % Eos % (Auto) (0-4) % Baso % (Auto) (0-2) % Lymph # (Auto) (1.2-4.9) X10*3/uL Towns # (Auto) (0.1-1.2) X10*3/uL Eos # (Auto) (0.0-0.4) X10*3/uL Baso # (Auto) (0.0-0.2) X10*3/uL Abs Immat Gran (auto) (0.00-0.03) X10*3/uL Absolute Neuts (auto) (2.0-8.3) x10*3/uL Absolute Nucleated RBC (0.0-0.012) X10*3/uL Nucleated RBC % (auto) (0.0-0.2) /100WBC Sodium (135-145) mmol/L Potassium (3.3-5.1) mmol/L Chloride (96-108) mmol/L Carbon Dioxide (22-29) mmol/L Anion Gap (12-20) BUN (9-16) mg/dL Creatinine (0.5-1.4) mg/dL Estim Creat Clear Calc Estimated GFR Random Glucose (60-115) mg/dL Calcium (8.4-10.2) mg/dL Total Bilirubin (0.0-1.0) mg/dL Direct Bilirubin (0.0-0.5) mg/dL AST (5-31) U/L ALT (0-31) U/L Alkaline Phosphatase (39-117) U/L Total Protein (6.5-8.0) g/dL Albumin (3.5-5.0) g/dL TSH (0.32-4.0) uIU/mL Urine Color Urine Appearance Urine pH (5.0-9.0) Ur Specific [place] (1.005-1.025) Urine Protein (Neg-Trace) mg/dL Urine Glucose (UA) (Negative) mg/dL Urine Ketones (Negative) mg/dL Urine Blood (Negative) Urine Nitrite (Negative) Ur Leukocyte Esterase (Negative) Urine Opiates Screen POSITIVE H (Not Detect) Urine Fentanyl Screen POSITIVE H (Not Detect) Ur Barbiturates Screen Not Detected (Not Detect) Ur Phencyclidine Scrn Not Detected (Not Detect) Ur Amphetamines Screen Not Detected (Not Detect) U Benzodiazepines Scrn Not Detected (Not Detect) Urine Cocaine Screen Not Detected (Not Detect) U Marijuana (THC) Screen Not Detected (Not Detect) Discharge Plan Discharge Clinical Impression: Medication side effect Patient Disposition: Home, Self-Care Instructions: Hallucinations (ED) Additional Instructions: Discontinue taking oxycodone, use tramadol instead p.r.n. pain. Try Tylenol before taking tramadol. Please follow-up with your primary care physician tomorrow. If you have any worsening or new symptoms, please return to the emergency room or call 911 Prescriptions: New tramadol 50 mg tablet 50 mg PO BID PRN (Reason: pain) Qty: 7 0RF No Action (DME) blood-glucose meter [OneTouch Verio Meter] Misc See Rx Instructions .Route Qty: 1 0RF Rx Instructions: As directed ([facility] [place]) OneTouch Verio test strips Strip See Rx Instructions .Route Qty: 100 3RF Rx Instructions: test blood sugars once a day ([facility] [place]) lancets [OneTouch Delica Lancets] 33 [place] [facility] [place] Rx Instructions .Route Qty: 100 3RF Rx Instructions: test blood sugar once a day ezetimibe 10 mg tablet 10 mg PO DAILY Qty: 90 3RF Trelegy Ellipta 100-62.5-25 mcg blister with device 1 inh inhalation DAILY Qty: 180 3RF levothyroxine 100 mcg tablet 100 mcg PO DAILY Qty: 90 3RF pantoprazole 40 mg tablet,delayed release (DR/EC) 40 mg PO DAILY Qty: 90 3RF pramipexole 0.25 mg tablet 0.25 mg PO BEDTIME Qty: 90 3RF losartan 25 mg tablet 25 mg PO DAILY Qty: 30 0RF Rx Instructions: Pt needs local fill while waiting for mail order delivery albuterol sulfate 90 mcg/actuation HFA aerosol inhaler 2 puff PO Q4H PRN (Reason: for dyspnea) Qty: 1 0RF (DME) hospital bed Kit See Rx Instructions .Route Qty: 1 0RF Rx Instructions: As directed calcipotriene 0.005 % ointment 1 appl topical BID alcohol swabs Pads, Medicated 1 pad topical TIDAC Qty: 200 0RF albuterol sulfate 2.5 mg /3 mL (0.083 %) solution for nebulization 2.5 mg inhalation Q6H PRN (Reason: shortness of breath or wheezing) 30 Days Qty: 360 0RF furosemide 40 mg tablet 40 mg PO BID citalopram 20 mg tablet 20 mg PO DAILY famotidine 20 mg tablet 20 mg PO DAILY sodium bicarbonate 325 mg tablet 650 mg PO BID allopurinol 100 mg tablet 100 mg PO DAILY gabapentin 300 mg capsule 600 mg PO TID prednisone 10 mg tablet 10 mg PO BID 7 Days Qty: 14 1RF doxycycline hyclate 100 mg tablet 100 mg PO BID 10 Days Qty: 20 0RF
[2022-12-27 17:29] LABS: MANUAL DIFF FLAG NO
[2022-12-27 17:30] LABS: Basophils Percent Auto 0.5 % (0-2); Eosinophils Absolute Auto 0.3 X10*3/uL (0.0-0.4); Eosinophils Percent Auto 3.8 % (0-4); Hematocrit 32.5 % (37.0-47.0); Hemoglobin 10.7 g/dl (12.0-16.0); Imm Gran Abs Auto 0.03 X10*3/uL (0.00-0.03); Imm Gran Pct Auto 0.4 % (0.0-0.4); Lymphocytes Absolute Auto 2.3 X10*3/uL (1.2-4.9); Lymphocytes Percent Auto 30.3 % (20-40); Mean Corpuscular HGB Conc 32.9 g/dl (31.0-35.0); Mean Corpuscular Hemoglobin 32.1 pg (27.0-33.0); Mean Corpuscular Volume 97.6 fL (80.0-98.0); Mean Platelet Volume 10.4 fL (9.4-12.3); Monocytes Absolute Auto 0.6 X10*3/uL (0.1-1.2); Monocytes Percent Auto 8.6 % (2-11); Neutrophils Absolute Auto 4.2 x10*3/uL (2.0-8.3); Neutrophils Percent Auto 56.4 % (45-73); Platelet Count 186 X10*3/uL (160-400); Red Blood Count 3.33 X10*6/uL (4.20-5.50); Red Cell Distribution Width 14.5 % (11.0-16.0); White Blood Count 7.5 X10*3/uL (4.8-10.8)
--- NOTE | 2022-12-27 17:47 | PC.NURSE ---
labs drawn. Pt has new fistula on right side - no IV or blood draw on that side.
[2022-12-27 17:51] LABS: Alanine Aminotransferase 6 U/L (0-31); Albumin Level 3.2 g/dL (3.5-5.0); Alkaline Phosphatase 96 U/L (39-117); Anion Gap 17 (12-20); Aspartate Amino Transferase 26 U/L (5-31); Bilirubin Direct 0.1 mg/dL (0.0-0.5); Bilirubin Total 0.6 mg/dL (0.0-1.0); Blood Urea Nitrogen 61 mg/dL (9-16); Calcium 8.6 mg/dL (8.4-10.2); Carbon Dioxide 21 mmol/L (22-29); Chloride 101 mmol/L (96-108); Creatinine Clr Calc Pharmacy 11.8; Estimated Glomerular Filt Rate 11; Glucose Random 105 mg/dL (60-115); Potassium 4.8 mmol/L (3.3-5.1); Sodium 134 mmol/L (135-145); Total Protein 6.1 g/dL (6.5-8.0)
[2022-12-27 18:00] VITALS: PULSE 90; RESP 15; O2SAT 96
[2022-12-27 18:05] LABS: TSH reflex Free T4 3.58 uIU/mL (0.32-4.0)
[2022-12-27 18:15] LABS: Appearance Urine Clear; Color Urine Yellow; Glucose Urine UA Negative (Negative); Leukocyte Esterase Urine Negative (Negative); Nitrite Urine Negative (Negative); Specific Gravity - Urine 1.015 (1.005-1.025); Urine Blood Negative (Negative); Urine Ketones Negative (Negative); Urine Protein Negative (Neg-Trace)
[2022-12-27 18:27] LABS: Amphetamine Screen Urine Not Detected (Not Detect); Barbiturates, Urine Not Detected (Not Detect); Benzodiazepines Screen Urine Not Detected (Not Detect); Cannabinoid Screen Urine Not Detected (Not Detect); Cocaine Screen Urine Not Detected (Not Detect); Fentanyl, urine POSITIVE (Not Detect); Opiate Screen Urine POSITIVE (Not Detect); Phencyclidine Screen Urine Not Detected (Not Detect)
[2022-12-27 18:49] VITALS: BP 123/58; PULSE 84; RESP 17; TEMP 36.7; O2SAT 96
--- NOTE | 2022-12-27 19:03 | PC.NURSE ---
pt reports while here in the ED pt has had some hallucinations of numbers on the white board, her birthday on the television. Pt says she is aware that she is hallucinating when it happens.
--- NOTE | 2022-12-27 19:57 | PC.NURSE ---
this rn assumed care of pt @ 1900. pt calm and cooperative. vss. pt daughter at bedside. pt assist stand to pivot into WC. this rn assisted pt into daughters vehicle at discharge. pt provided with discharge packet. pt and daughter verbalized understanding of discharge plan
== END 2022-12-27 20:00 | disposition home or self-care (01) ==
PROVIDERS: Emergency Provider Emergency Medicine
DX: R44.1 Visual hallucinations (principal); T40.2X5A Adverse effect of other opioids, initial encounter; Y92.9 Unspecified place or not applicable; E11.22 Type 2 diabetes mellitus with diabetic chronic kidney disease; I13.0 Hypertensive heart and chronic kidney disease with heart failure and stage 1 through stage 4 chronic kidney disease, or unspecified chronic kidney disease; N18.4 Chronic kidney disease, stage 4 (severe); I50.9 Heart failure, unspecified; N17.9 Acute kidney failure, unspecified; Z99.2 Dependence on renal dialysis; E78.5 Hyperlipidemia, unspecified; Z87.891 Personal history of nicotine dependence; Z79.899 Other long term (current) drug therapy
CPT/HCPCS: 36415; 80048; 80076; 80307; 81003; 84443; 85025; 99284

== ENCOUNTER 2022-12-27 23:31 | Inpatient (IN) | payer MEDICARE, SELFPAY ==
--- NOTE | ~2022-12-27 | XR_ITS ---
EXAMINATION: XR CHEST CLINICAL INFORMATION: Shortness of breath COMPARISON: CT chest dated 08/18/2022 TECHNIQUE: Frontal view of the chest was obtained. FINDINGS: Low lung volumes and bibasilar subsegmental atelectasis. Diffuse bronchial wall thickening and interstitial prominence redemonstrated. No large pleural effusion or pneumothorax. Cardiac silhouette including the process. No acute osseous abnormalities. XR/XR chest 1V IMPRESSION: Chronic pulmonary fibrosis redemonstrated with diffuse bronchial wall thickening. An acute on chronic bronchitis may be present.
--- NOTE | ~2022-12-27 | XR_ITS ---
EXAMINATION: XR CHEST CLINICAL INFORMATION: Right-sided pleuritic chest pain. COMPARISON: 12/28/2022 TECHNIQUE: Frontal view of the chest was obtained. FINDINGS: Low lung volumes. Slight interval improvement in bibasilar opacities. No new consolidation. No pleural effusion. Cardiomediastinal contour is unchanged. XR/XR chest 1V IMPRESSION: Slight interval improvement in bibasilar opacities compared with the prior study.
--- NOTE | ~2022-12-27 | US_ITS ---
EXAMINATION: US VENOUS ULTRASOUND WITH DOPPLER LOWER EXTREMITY, BILATERAL CLINICAL INFORMATION: Elevated d-dimer. Evaluate for DVT COMPARISON: None available. TECHNIQUE: Ultrasound of the deep veins is performed from the hip to the calf with compression sonography and color and pulse Doppler assessment. Spectral analysis with color-flow imaging is performed. FINDINGS: RIGHT: There is normal venous compression and respiratory variation and augmented flow. The visualized common femoral vein, superficial femoral vein, profunda femoral vein, popliteal vein, and the trifurcation region shows no evidence of deep venous thrombosis. There is no significant popliteal fossa cyst. LEFT: There is normal venous compression and respiratory variation and augmented flow. The visualized common femoral vein, superficial femoral vein, profunda femoral vein, popliteal vein, and the trifurcation region shows no evidence of deep venous thrombosis. There is no significant popliteal fossa cyst. If the patient's symptoms persist, followup ultrasound in 5 days 7 days might be of value to exclude proximal propagation from a non-visualized calf vein. US/US venous duplex LE BI IMPRESSION: No DVT demonstrated in the bilateral lower extremity.
--- NOTE | 2022-12-27 23:55 | ECG_ITS ---
Test Reason : CHEST PAIN Blood Pressure : / mmHG Vent. 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
[2022-12-27 23:59] VITALS: BP 113/62; PULSE 108; RESP 27; O2SAT 93
[2022-12-28] VITALS (14 sets, daily range): BP systolic 101–150; BP diastolic 49–75; PULSE 88–113; RESP 13–25; TEMP 36.9–37.1; O2SAT 93–100; BMI 42.5
--- NOTE | 2022-12-28 | ECG_ITS ---
Test Reason : ELEVATED TROP, SOB Blood Pressure : / mmHG Vent. 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
[2022-12-28 00:25] LABS: Glucose, Whole Blood 104 mg/dL (60-115)
--- NOTE | 2022-12-28 00:42 | ED.SOB ---
HPI - SOB/Dyspnea General Chief Complaint: Chest Pain Stated Complaint: difficulty breathing and cp Time Seen by Provider: 12/28/22 00:12 Source: family (Daughter) Mode of arrival: ambulatory Limitations: other (Altered mental status, dyspnea) History of Present Illness HPI Narrative: 82-year-old female who was seen in the emergency department earlier today for visual hallucinations. The patient had a AV fistula placed in her left arm on 12/24/2022(4 days prior) and was given a prescription for oxycodone for her pain. Patient earlier today was having visual hallucinations which the daughter states is new. According to the daughter, while she was here the patient did not have any difficulty breathing. When they got home from the emergency department the patient complained of shortness of breath. Shortness of breath got worse so the daughter brought her back to emergency department. Patient has a history of chronic cough, COPD and interstitial lung disease. Esophageal echo on 08/18/2022 which revealed normal LV function. Related Data Home Medications Medication Instructions Recorded Confirmed calcipotriene 0.005 % topical 1 appl topical BID 08/27/21 10/30/22 ointment sodium bicarbonate 325 mg tablet 650 mg PO BID 02/27/22 10/30/22 furosemide 40 mg tablet 40 mg PO BID 03/27/22 10/30/22 allopurinol 100 mg tablet 100 mg PO DAILY 09/11/22 10/30/22 citalopram 20 mg tablet 20 mg PO DAILY 10/30/22 10/30/22 famotidine 20 mg tablet 20 mg PO DAILY 10/30/22 10/30/22 gabapentin 300 mg capsule 600 mg PO TID 10/30/22 10/30/22 Previous Rx's Medication Instructions Recorded alcohol swabs 1 pad topical TIDAC #200 ea 09/25/21 blood sugar diagnostic (FuzzTouch #100 ea 10/03/21 Verio test strips) blood-glucose meter (OneTouch #1 ea 10/03/21 Verio Meter) lancets 33 gauge (OneTouch Delica #100 ea 10/03/21 Lancets) albuterol sulfate 2.5 mg/3 mL 2.5 mg (3 mL) inhalation Q6H PRN 12/11/21 (0.083 %) solution for nebulization shortness of breath or wheezing 30 days #360 mL ezetimibe 10 mg tablet 10 mg PO DAILY #90 tabs 04/03/22 fluticasone fur. 100 mcg-umeclid 1 inh inhalation DAILY #180 ea 04/03/22 62.5 mcg-vilant 25 mcg inhalat.powder (Trelegy Ellipta) levothyroxine 100 mcg tablet 100 mcg PO DAILY #90 tabs 04/03/22 pantoprazole 40 mg tablet,delayed 40 mg PO DAILY #90 tabs 04/03/22 release pramipexole 0.25 mg tablet 0.25 mg PO BEDTIME #90 tabs 04/03/22 losartan 25 mg tablet 25 mg PO DAILY #30 tabs 08/07/22 albuterol sulfate 90 mcg/actuation 2 puff PO Q4H PRN for dyspnea #1 ea 09/12/22 aerosol inhaler hospital bed #1 ea 11/03/22 doxycycline hyclate 100 mg tablet 100 mg PO BID BRONCHITIS 10 days 11/27/22 #20 tabs prednisone 10 mg tablet 10 mg PO BID PULMONARY FIBROSIS 7 11/27/22 days #14 tabs tramadol 50 mg tablet 50 mg PO BID PRN pain #7 tabs 12/27/22 Allergies Allergy/AdvReac Type Severity Reaction Status Date / Time NSAIDS (Non-Steroidal Allergy Unknown Verified 12/03/22 10:33 Anti-Inflamma [id number] Reductase AdvReac Severe LEG PAIN Verified 12/03/22 10:33 Inhibitor Review of Systems Review of Systems: Yes Unobtainable due to mental condition PMFSH Past Medical History Medical History Acquired hypothyroidism COPD (chronic obstructive pulmonary disease) Cough Depression, major, recurrent Diabetes Dyslipidemia Fibromyalgia Heart murmur Interstitial lung disease Kidney failure, acute Osteoarthritis of multiple joints Respiratory failure with hypoxia Type 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 Surgical History H/O hemorrhoidectomy Hx of fusion of cervical spine Hx of tonsillectomy S/P anal fissurectomy S/P appendectomy S/P partial hysterectomy Family History Family History Brother Substance use disorder Son Substance use disorder Daughter Substance use disorder Social History Social History (Reviewed 12/03/22 @ 10:34 by ROSEANN Lowe Household Members: Children Housing: House Do you presently have visiting nurse or other home services: No Alcohol intake: never Patient Tobacco Use Status: Former Tobacco user Quit Date: 15 years ago Years Smoked: 20 +/- on and off Smoked in Last 30 Days: No e-Cigarette/Vaping Use: Never Used Second Hand Smoke Exposure: No Use of substances other than those prescribed or required for medical reasons: No Advance Directives: Yes Advance Directives on File: Yes Advance Directives Date on File: 08/28/21 service: No Current occupational status: retired Current occupation: right handed Cognitive needs: No Hearing needs: No Vision needs: Yes Physical Exam Vital Signs: Vital Signs: Last Vital Signs Temp 98.7 F 12/28/22 04:45 Pulse 104 H 12/28/22 07:18 Resp 17 12/28/22 07:18 BP 122/63 12/28/22 07:18 Pulse Ox 98 12/28/22 07:18 O2 Del Method CPAP 12/28/22 07:18 O2 Flow Rate 3 12/27/22 23:59 BMI result Body Mass Index 42.5 Const: Other: Elderly female come tachypnea, dyspnea, not able to answer questions HEENT: Head: Yes normal to inspection, Yes normocephalic and Yes atraumatic Ears: external ears normal General nose exam: Normal external nose present Face and sinus: Yes normal facial exam Mouth: Normal oral and palatal mucosa present Throat: Yes posterior oropharynx normal Eyes: General: appearance normal, both eyes and all related structures Neck: Neck: Yes normal visual inspection, Yes no lymphadenopathy, Yes trachea midline and Yes supple Chest: Chest palpation & inspection: normal inspection of the chest and normal palpation of entire chest wall Resp: Other: Patient is tachypneic and appears dyspnea, she has diminished breath sounds throughout, there is wheezing and rales at the bases Cardio: Rate: regular rate Rhythm: regular rhythm Heart sounds: S1 normal heart sound present, S2 normal heart sound present and no murmurs GI: Inspection: Yes normal to inspection Palpation (GI): Soft to palpation, nontender and no guarding Auscultation: normal bowel sounds : General: Yes no CVA tenderness Back/Spine/Pelvis: Back: no CVA tenderness Extrem: Other: Trace pitting edema bilaterally symmetric, AV fistula right upper extremity Medications Administered Discontinued Medications Generic Name Dose Route Start Last Admin Trade Name Ya PRN Reason Stop Dose Admin Albuterol Sulfate 5 mg 12/28/22 00:50 12/28/22 01:13 Albuterol Sulfate (0.083%) 2.5 Mg/3 Ml Vial.Neb INHALE 12/28/22 00:51 5 mg ONCE ONE Administration Albuterol/Ipratropium 3 ml 12/28/22 01:32 12/28/22 02:04 Albuterol/Iprat 2.5/0.5mg 3 Ml Ampul.Neb INHALE 12/28/22 01:33 3 ml ONCE ONE Administration Albuterol/Ipratropium 3 ml 12/28/22 03:50 12/28/22 04:16 Albuterol/Iprat 2.5/0.5mg 3 Ml Ampul.Neb INHALE 12/28/22 03:51 3 ml ONCE ONE Administration Furosemide 80 mg 12/28/22 05:36 12/28/22 06:48 Furosemide 100 Mg/10 Ml Vial IVPUSH 12/28/22 05:37 80 mg ONCE ONE Administration Protocol Haloperidol Lactate 2 mg 12/28/22 02:19 12/28/22 02:25 Haloperidol Lactate 5 Mg/Ml Vial IVPUSH 12/28/22 02:20 2 mg ONCE ONE Administration Methylprednisolone Sodium Succinate 125 mg 12/28/22 00:50 12/28/22 01:55 Methylprednisolone Sod Succ 125 Mg/2 Ml Vial IVPUSH 12/28/22 00:51 125 mg ONCE ONE Administration Medical Decision Making Medical Decision Making [facility] Narrative: 82-year-old female history of COPD, interstitial fibrosis, diabetes, depression, hypothyroidism, respiratory failure secondary to hypoxic, right arm AV fistula placed 4 days prior who was seen in the emergency department earlier today for visual hallucinations felt to be secondary to oxycodone, after getting home she developed shortness of breath and was brought back to the emergency department by her daughter. Patient's vital signs revealed an elevated heart rate of 108 an elevated respiratory rate of 27. Patient was tachypneic and dyspnea, lung exam revealed diminished breath sounds at the bases with wheezing and rales. I ordered the following tests: CBC, CMP, magnesium, troponin, BNP, lactic acid, COVID-19, VBG 12 EKG, chest x-ray. The patient was placed on BiPAP 14/8 26% with improvement of her disc tachypnea. Patient was also ordered to get albuterol 5 mg nebulizer and Solu-Medrol 125 mg IV. 0439: My independent interpretation patient's laboratory evaluation is as follows: Elevated BUN creatinine 60 and 3.72-chronic. Venous pH 7.29, venous pCO2 53. BNP elevated 92. Troponin elevated 6428.7. Chest x-ray 0551: My independent interpretation patient's laboratory evaluation is as follows: WBC elevated 11,000. H&H low 11.5 and 35.4-chronic. BUN and creatinine elevated 60 and 3.72-chronic. Lactic acid elevated 2.1. High sensitive troponin I was elevated at 6428 and 3 hour repeat was elevated 7704 but not by 50% delta. BNP is elevated 982-she has had normal BMP is in the past. Urine tox screen from earlier in the day was positive for opiates and fentanyl-patient was taking oxycodone and did have a recent surgery may have gotten fentanyl. The patient was placed on BiPAP and eventually improved and placed on high-flow oxygen I did discuss the patient with covering hospitalist, Dr. Calderon who requested cardiology consult. She also recommended giving Lasix and I ordered Lasix 80 mg IV. I did discuss the patient with her covering web portal developer, Dr. Jordan. His differential diagnosis for the elevated troponin included pulmonary embolism, myocardial infarction, congestive heart failure, hypoxic related cardiac injury, RV strain. He recommends starting the patient on pulmonary embolism dose heparin. He also recommended a critical care consult. I did discuss the patient's presentation with Dr. Dinh. We did discuss the patient's recent blood gas or the patient's pH was 7.30, pCO2 was 50.9 PO2 was 58.6. He recommended that the patient be placed back on BiPAP and he will consult on the patient. 0650: Patient was seen by Dr. Dinh performed a bedside echocardiogram and did not see any significant wall motion abnormalities and possibly enlarged RV but the exam was limited by the patient's body habitus. He will the patient to the ICU once a bed is available. Patient will be kept in the emergency department on BiPAP until then. 0754: I did contact the patient's daughter, Evie Zamora to inform her about the patient's abnormal labs and her condition. I did have an end of life discussion with the daughter and the daughter confirmed that the patient is a do not resuscitate and do not intubate but would like her mother to continue to be treated being admitted to the intensive care unit. Differential Diagnosis Differential diagnosis for shortness of breath includes but not limited to COPD exacerbation, pulmonary edema, pulmonary embolism Differential diagnosis for visual hallucinations includes but not limited oxycodone, postsurgical medications Admission/Observation Consideration of admission/observation: Escalation of care including admission/observation considered Lab Data MDM Lab Attestation statement: I reviewed the patient's lab results. 12/28/22 01:23 12/28/22 01:23 Labs: Lab Results 12/28/22 12/28/22 12/28/22 Range/Units 00:21 00:58 01:23 WBC (4.8-10.8) X10*3/uL RBC (4.20-5.50) X10*6/uL Hgb (12.0-16.0) g/dl Hct (37.0-47.0) % MCV (80.0-98.0) fL MCH (27.0-33.0) pg MCHC (31.0-35.0) g/dl RDW (11.0-16.0) % Plt Count (160-400) X10*3/uL MPV (9.4-12.3) fL Immature Gran % (Auto) (0.0-0.4) % Neut % (Auto) (45-73) % Lymph % (Auto) (20-40) % [place] % (Auto) (2-11) % Eos % (Auto) (0-4) % Baso % (Auto) (0-2) % Lymph # (Auto) (1.2-4.9) X10*3/uL [place] # (Auto) (0.1-1.2) X10*3/uL Eos # (Auto) (0.0-0.4) X10*3/uL Baso # (Auto) (0.0-0.2) X10*3/uL Abs Immat Gran (auto) (0.00-0.03) X10*3/uL Absolute Neuts (auto) (2.0-8.3) x10*3/uL Absolute Nucleated RBC (0.0-0.012) X10*3/uL Nucleated RBC % (auto) (0.0-0.2) /100WBC D-Dimer High Sensitivty NG/ML O2 Saturation % ABG pH at Pt Temp (7.35-7.45) ABG pCO2 at Pt Temp (32-45) mmHg ABG pO2 at Pt Temp (83-108) mmHg ABG HCO3 (22-26) mmol/L ABG Base Excess (Actual) mmol/L VBG pH (7.32-7.43) VBG pCO2 mmHg VBG pO2 mmHg VBG HCO3 (22-26) mmol/L VBG O2 Saturation % VBG Base Excess mmol/L Sodium 136 (135-145) mmol/L Potassium 4.7 (3.3-5.1) mmol/L Chloride 100 (96-108) mmol/L Carbon Dioxide 18 L (22-29) mmol/L Anion Gap 23 H (12-20) BUN 60 H (9-16) mg/dL Creatinine 3.72 H (0.5-1.4) mg/dL Estim Creat Clear Calc 12.8 Estimated GFR 12 POC Glucose 104 (60-115) mg/dL Random Glucose 109 (60-115) mg/dL Lactic Acid (0.5-2.0) mmol/L Lactic Acid F/U @ 2Hr (0.5-2.0) mmol/L Lactic Acid F/U @ 4Hr (0.5-2.0) mmol/L Calcium 8.9 (8.4-10.2) mg/dL Magnesium 1.8 (1.6-2.6) mg/dL Total Bilirubin 0.8 (0.0-1.0) mg/dL AST 43 H (5-31) U/L ALT 7 (0-31) U/L Alkaline Phosphatase 105 (39-117) U/L Troponin I High Sens (<3.5-17.0) ng/L B-Natriuretic Peptide (<100) pg/mL Total Protein 7.4 (6.5-8.0) g/dL Albumin 3.7 (3.5-5.0) g/dL COVID-19 (ISAAK) Negative (Negative) COVID-19 Clin Com See Note 12/28/22 12/28/22 12/28/22 Range/Units 01:23 01:26 02:03 WBC (4.8-10.8) X10*3/uL RBC (4.20-5.50) X10*6/uL Hgb (12.0-16.0) g/dl Hct (37.0-47.0) % MCV (80.0-98.0) fL MCH (27.0-33.0) pg MCHC (31.0-35.0) g/dl RDW (11.0-16.0) % Plt Count (160-400) X10*3/uL MPV (9.4-12.3) fL Immature Gran % (Auto) (0.0-0.4) % Neut % (Auto) (45-73) % Lymph % (Auto) (20-40) % [place] % (Auto) (2-11) % Eos % (Auto) (0-4) % Baso % (Auto) (0-2) % Lymph # (Auto) (1.2-4.9) X10*3/uL [place] # (Auto) (0.1-1.2) X10*3/uL Eos # (Auto) (0.0-0.4) X10*3/uL Baso # (Auto) (0.0-0.2) X10*3/uL Abs Immat Gran (auto) (0.00-0.03) X10*3/uL Absolute Neuts (auto) (2.0-8.3) x10*3/uL Absolute Nucleated RBC (0.0-0.012) X10*3/uL Nucleated RBC % (auto) (0.0-0.2) /100WBC D-Dimer High Sensitivty NG/ML O2 Saturation % ABG pH at Pt Temp (7.35-7.45) ABG pCO2 at Pt Temp (32-45) mmHg ABG pO2 at Pt Temp (83-108) mmHg ABG HCO3 (22-26) mmol/L ABG Base Excess (Actual) mmol/L VBG pH 7.29 L (7.32-7.43) VBG pCO2 53 mmHg VBG pO2 43 mmHg VBG HCO3 26 (22-26) mmol/L VBG O2 Saturation 64.0 % VBG Base Excess -0.9 mmol/L Sodium (135-145) mmol/L Potassium (3.3-5.1) mmol/L Chloride (96-108) mmol/L Carbon Dioxide (22-29) mmol/L Anion Gap (12-20) BUN (9-16) mg/dL Creatinine (0.5-1.4) mg/dL Estim Creat Clear Calc Estimated GFR POC Glucose (60-115) mg/dL Random Glucose (60-115) mg/dL Lactic Acid 2.1 H* (0.5-2.0) mmol/L Lactic Acid F/U @ 2Hr (0.5-2.0) mmol/L Lactic Acid F/U @ 4Hr (0.5-2.0) mmol/L Calcium (8.4-10.2) mg/dL Magnesium (1.6-2.6) mg/dL Total Bilirubin (0.0-1.0) mg/dL AST (5-31) U/L ALT (0-31) U/L Alkaline Phosphatase (39-117) U/L Troponin I High Sens 6428.7 H* (<3.5-17.0) ng/L B-Natriuretic Peptide (<100) pg/mL Total Protein (6.5-8.0) g/dL Albumin (3.5-5.0) g/dL COVID-19 (ISAAK) (Negative) COVID-19 Clin Com 12/28/22 12/28/22 12/28/22 Range/Units 02:05 02:07 04:19 WBC 11.1 H (4.8-10.8) X10*3/uL RBC 3.59 L (4.20-5.50) X10*6/uL Hgb 11.5 L (12.0-16.0) g/dl Hct 35.4 L (37.0-47.0) % MCV 98.6 H (80.0-98.0) fL MCH 32.0 (27.0-33.0) pg MCHC 32.5 (31.0-35.0) g/dl RDW 14.4 (11.0-16.0) % Plt Count 215 (160-400) X10*3/uL MPV 10.6 (9.4-12.3) fL Immature Gran % (Auto) 0.4 (0.0-0.4) % Neut % (Auto) 78.2 H (45-73) % Lymph % (Auto) 15.5 L (20-40) % [place] % (Auto) 4.9 (2-11) % Eos % (Auto) 0.6 (0-4) % Baso % (Auto) 0.4 (0-2) % Lymph # (Auto) 1.7 (1.2-4.9) X10*3/uL [place] # (Auto) 0.5 (0.1-1.2) X10*3/uL Eos # (Auto) 0.1 (0.0-0.4) X10*3/uL Baso # (Auto) 0.0 (0.0-0.2) X10*3/uL Abs Immat Gran (auto) 0.05 H (0.00-0.03) X10*3/uL Absolute Neuts (auto) 8.7 H (2.0-8.3) x10*3/uL Absolute Nucleated RBC 0.000 (0.0-0.012) X10*3/uL Nucleated RBC % (auto) 0.0 (0.0-0.2) /100WBC D-Dimer High Sensitivty NG/ML O2 Saturation % ABG pH at Pt Temp (7.35-7.45) ABG pCO2 at Pt Temp (32-45) mmHg ABG pO2 at Pt Temp (83-108) mmHg ABG HCO3 (22-26) mmol/L ABG Base Excess (Actual) mmol/L VBG pH (7.32-7.43) VBG pCO2 mmHg VBG pO2 mmHg VBG HCO3 (22-26) mmol/L VBG O2 Saturation % VBG Base Excess mmol/L Sodium (135-145) mmol/L Potassium (3.3-5.1) mmol/L Chloride (96-108) mmol/L Carbon Dioxide (22-29) mmol/L Anion Gap (12-20) BUN (9-16) mg/dL Creatinine (0.5-1.4) mg/dL Estim Creat Clear Calc Estimated GFR POC Glucose (60-115) mg/dL Random Glucose (60-115) mg/dL Lactic Acid (0.5-2.0) mmol/L Lactic Acid F/U @ 2Hr 2.9 H* (0.5-2.0) mmol/L Lactic Acid F/U @ 4Hr (0.5-2.0) mmol/L Calcium (8.4-10.2) mg/dL Magnesium (1.6-2.6) mg/dL Total Bilirubin (0.0-1.0) mg/dL AST (5-31) U/L ALT (0-31) U/L Alkaline Phosphatase (39-117) U/L Troponin I High Sens (<3.5-17.0) ng/L B-Natriuretic Peptide 982 H (<100) pg/mL Total Protein (6.5-8.0) g/dL Albumin (3.5-5.0) g/dL COVID-19 (ISAAK) (Negative) COVID-19 Clin Com 12/28/22 12/28/22 12/28/22 Range/Units 04:20 05:35 07:03 WBC (4.8-10.8) X10*3/uL RBC (4.20-5.50) X10*6/uL Hgb (12.0-16.0) g/dl Hct (37.0-47.0) % MCV (80.0-98.0) fL MCH (27.0-33.0) pg MCHC (31.0-35.0) g/dl RDW (11.0-16.0) % Plt Count (160-400) X10*3/uL MPV (9.4-12.3) fL Immature Gran % (Auto) (0.0-0.4) % Neut % (Auto) (45-73) % Lymph % (Auto) (20-40) % [place] % (Auto) (2-11) % Eos % (Auto) (0-4) % Baso % (Auto) (0-2) % Lymph # (Auto) (1.2-4.9) X10*3/uL [place] # (Auto) (0.1-1.2) X10*3/uL Eos # (Auto) (0.0-0.4) X10*3/uL Baso # (Auto) (0.0-0.2) X10*3/uL Abs Immat Gran (auto) (0.00-0.03) X10*3/uL Absolute Neuts (auto) (2.0-8.3) x10*3/uL Absolute Nucleated RBC (0.0-0.012) X10*3/uL Nucleated RBC % (auto) (0.0-0.2) /100WBC D-Dimer High Sensitivty NG/ML O2 Saturation 97.0 % ABG pH at Pt Temp 7.31 L (7.35-7.45) ABG pCO2 at Pt Temp 51 H (32-45) mmHg ABG pO2 at Pt Temp 99 (83-108) mmHg ABG HCO3 26 (22-26) mmol/L ABG Base Excess (Actual) -0.7 mmol/L VBG pH (7.32-7.43) VBG pCO2 mmHg VBG pO2 mmHg VBG HCO3 (22-26) mmol/L VBG O2 Saturation % VBG Base Excess mmol/L Sodium (135-145) mmol/L Potassium (3.3-5.1) mmol/L Chloride (96-108) mmol/L Carbon Dioxide (22-29) mmol/L Anion Gap (12-20) BUN (9-16) mg/dL Creatinine (0.5-1.4) mg/dL Estim Creat Clear Calc Estimated GFR POC Glucose (60-115) mg/dL Random Glucose (60-115) mg/dL Lactic Acid (0.5-2.0) mmol/L Lactic Acid F/U @ 2Hr (0.5-2.0) mmol/L Lactic Acid F/U @ 4Hr 3.4 H* (0.5-2.0) mmol/L Calcium (8.4-10.2) mg/dL Magnesium (1.6-2.6) mg/dL Total Bilirubin (0.0-1.0) mg/dL AST (5-31) U/L ALT (0-31) U/L Alkaline Phosphatase (39-117) U/L Troponin I High Sens 7704.9 H* (<3.5-17.0) ng/L B-Natriuretic Peptide (<100) pg/mL Total Protein (6.5-8.0) g/dL Albumin (3.5-5.0) g/dL COVID-19 (ISAAK) (Negative) COVID-19 Clin Com 12/28/22 Range/Units 07:03 WBC (4.8-10.8) X10*3/uL RBC (4.20-5.50) X10*6/uL Hgb (12.0-16.0) g/dl Hct (37.0-47.0) % MCV (80.0-98.0) fL MCH (27.0-33.0) pg MCHC (31.0-35.0) g/dl RDW (11.0-16.0) % Plt Count (160-400) X10*3/uL MPV (9.4-12.3) fL Immature Gran % (Auto) (0.0-0.4) % Neut % (Auto) (45-73) % Lymph % (Auto) (20-40) % [place] % (Auto) (2-11) % Eos % (Auto) (0-4) % Baso % (Auto) (0-2) % Lymph # (Auto) (1.2-4.9) X10*3/uL [place] # (Auto) (0.1-1.2) X10*3/uL Eos # (Auto) (0.0-0.4) X10*3/uL Baso # (Auto) (0.0-0.2) X10*3/uL Abs Immat Gran (auto) (0.00-0.03) X10*3/uL Absolute Neuts (auto) (2.0-8.3) x10*3/uL Absolute Nucleated RBC (0.0-0.012) X10*3/uL Nucleated RBC % (auto) (0.0-0.2) /100WBC D-Dimer High Sensitivty 956 NG/ML O2 Saturation % ABG pH at Pt Temp (7.35-7.45) ABG pCO2 at Pt Temp (32-45) mmHg ABG pO2 at Pt Temp (83-108) mmHg ABG HCO3 (22-26) mmol/L ABG Base Excess (Actual) mmol/L VBG pH (7.32-7.43) VBG pCO2 mmHg VBG pO2 mmHg VBG HCO3 (22-26) mmol/L VBG O2 Saturation % VBG Base Excess mmol/L Sodium (135-145) mmol/L Potassium (3.3-5.1) mmol/L Chloride (96-108) mmol/L Carbon Dioxide (22-29) mmol/L Anion Gap (12-20) BUN (9-16) mg/dL Creatinine (0.5-1.4) mg/dL Estim Creat Clear Calc Estimated GFR POC Glucose (60-115) mg/dL Random Glucose (60-115) mg/dL Lactic Acid (0.5-2.0) mmol/L Lactic Acid F/U @ 2Hr (0.5-2.0) mmol/L Lactic Acid F/U @ 4Hr (0.5-2.0) mmol/L Calcium (8.4-10.2) mg/dL Magnesium (1.6-2.6) mg/dL Total Bilirubin (0.0-1.0) mg/dL AST (5-31) U/L ALT (0-31) U/L Alkaline Phosphatase (39-117) U/L Troponin I High Sens (<3.5-17.0) ng/L B-Natriuretic Peptide (<100) pg/mL Total Protein (6.5-8.0) g/dL Albumin (3.5-5.0) g/dL COVID-19 (ISAAK) (Negative) COVID-19 Clin Com Independent Interpretation I performed an independent interpretation of an: EKG and Plain X-Ray Interpretation: My independent interpretation patient's chest x-ray one view, poor inspiration increased interstitial markings consistent with her interstitial lung disease My independent interpretation the patient's 12 EKG done at 00:02 hours is as follows: Sinus tachycardia with a rate of 110, normal FL interval, QRS duration QTC interval, no ST segment elevation, no ST segment depression, Q-waves in lead 3 and AVF, no significant T-wave abnormalities. Compared to EKG dated 09/21/2021 Q-waves in 3 and AVF for present. Radiology Impression Discussion of test interpretation with radiology: I have reviewed the radiologist's reading. Radiologist Impression: XR chest 1V IMPRESSION: Chronic pulmonary fibrosis redemonstrated with diffuse bronchial wall thickening. An acute on chronic bronchitis may be present. Dictated By:Cody Lindsay MD Critical Care Time Critical Care Time Total Critical Care Time: 120 Attestation: Critical Care: The patient was critically ill with a high probability of imminent or life threatening deterioration. I spent greater than 30 minutes of discontinuous time evaluating the patient,delivering critical care at the bedside, discussing and evaluating pertinent data with consultants. Critical care time does not include time spent performing separately billable procedures or teaching. Total time spent performing critical care was 120 minutes. Discharge Plan Discharge Clinical Impression: Acute exacerbation of chronic obstructive pulmonary disease, Elevated troponin I level, Respiratory failure, Hallucination, visual Congestive heart failure Qualifiers: Heart failure chronicity: acute Patient Disposition: Still a Patient Prescriptions: No Action (DME) blood-glucose meter [OneTouch Verio Meter] Misc See Rx Instructions .Route Qty: 1 0RF Rx Instructions: As directed (DME) OneTouch Verio test strips Strip See Rx Instructions .Route Qty: 100 3RF Rx Instructions: test blood sugars once a day (DME) lancets [OneTouch Delica Lancets] 33 gauge misc See Rx Instructions .Route Qty: 100 3RF Rx Instructions: test blood sugar once a day ezetimibe 10 mg tablet 10 mg PO DAILY Qty: 90 3RF Trelegy Ellipta 100-62.5-25 mcg blister with device 1 inh inhalation DAILY Qty: 180 3RF levothyroxine 100 mcg tablet 100 mcg PO DAILY Qty: 90 3RF pantoprazole 40 mg tablet,delayed release (DR/EC) 40 mg PO DAILY Qty: 90 3RF pramipexole 0.25 mg tablet 0.25 mg PO BEDTIME Qty: 90 3RF losartan 25 mg tablet 25 mg PO DAILY Qty: 30 0RF Rx Instructions: Pt needs local fill while waiting for mail order delivery albuterol sulfate 90 mcg/actuation HFA aerosol inhaler 2 puff PO Q4H PRN (Reason: for dyspnea) Qty: 1 0RF (DME) hospital bed Kit See Rx Instructions .Route Qty: 1 0RF Rx Instructions: As directed calcipotriene 0.005 % ointment 1 appl topical BID alcohol swabs Pads, Medicated 1 pad topical TIDAC Qty: 200 0RF tramadol 50 mg tablet 50 mg PO BID PRN (Reason: pain) Qty: 7 0RF albuterol sulfate 2.5 mg /3 mL (0.083 %) solution for nebulization 2.5 mg inhalation Q6H PRN (Reason: shortness of breath or wheezing) 30 Days Qty: 360 0RF furosemide 40 mg tablet 40 mg PO BID citalopram 20 mg tablet 20 mg PO DAILY famotidine 20 mg tablet 20 mg PO DAILY sodium bicarbonate 325 mg tablet 650 mg PO BID allopurinol 100 mg tablet 100 mg PO DAILY gabapentin 300 mg capsule 600 mg PO TID prednisone 10 mg tablet 10 mg PO BID 7 Days Qty: 14 1RF doxycycline hyclate 100 mg tablet 100 mg PO BID 10 Days Qty: 20 0RF
[2022-12-28] MEDS: Albuterol Sulfate (0.083%) 2.5 MG/3 ML VIAL.NEB 5 MG INHALE (01:13)
[2022-12-28 01:15] LABS: COVID-19 Test Negative (Negative); IDNOW Serial# 08D9AD1C
[2022-12-28 01:35] LABS: Venous Blood Gas Refer to POC result
[2022-12-28 01:36] LABS: VBG Base Excess -0.9 mmol/L; VBG HCO3 26 mmol/L (22-26); VBG pCO2 53 mmHg; VBG pH 7.29 (7.32-7.43); VBG pO2 43 mmHg
[2022-12-28] MEDS: methylPREDNISolone Sod Succ 125 MG/2 ML VIAL IVPUSH (01:55)
[2022-12-28] MEDS: Albuterol/Iprat 2.5/0.5MG 3 ML AMPUL.NEB INHALE ×2 (02:04→04:16)
[2022-12-28 02:07] LABS: Alanine Aminotransferase 7 U/L (0-31); Albumin Level 3.7 g/dL (3.5-5.0); Alkaline Phosphatase 105 U/L (39-117); Anion Gap 23 (12-20); Aspartate Amino Transferase 43 U/L (5-31); Bilirubin Total 0.8 mg/dL (0.0-1.0); Blood Urea Nitrogen 60 mg/dL (9-16); Calcium 8.9 mg/dL (8.4-10.2); Carbon Dioxide 18 mmol/L (22-29); Chloride 100 mmol/L (96-108); Creatinine Clr Calc Pharmacy 12.8; Estimated Glomerular Filt Rate 12; Glucose Random 109 mg/dL (60-115); Magnesium 1.8 mg/dL (1.6-2.6); Potassium 4.7 mmol/L (3.3-5.1); Sodium 136 mmol/L (135-145); Total Protein 7.4 g/dL (6.5-8.0)
[2022-12-28 02:16] LABS: Basophils Percent Auto 0.4 % (0-2); Eosinophils Absolute Auto 0.1 X10*3/uL (0.0-0.4); Eosinophils Percent Auto 0.6 % (0-4); Hematocrit 35.4 % (37.0-47.0); Hemoglobin 11.5 g/dl (12.0-16.0); Imm Gran Abs Auto 0.05 X10*3/uL (0.00-0.03); Imm Gran Pct Auto 0.4 % (0.0-0.4); Lymphocytes Absolute Auto 1.7 X10*3/uL (1.2-4.9); Lymphocytes Percent Auto 15.5 % (20-40); Mean Corpuscular HGB Conc 32.5 g/dl (31.0-35.0); Mean Corpuscular Volume 98.6 fL (80.0-98.0); Mean Platelet Volume 10.6 fL (9.4-12.3); Monocytes Absolute Auto 0.5 X10*3/uL (0.1-1.2); Monocytes Percent Auto 4.9 % (2-11); Neutrophils Absolute Auto 8.7 x10*3/uL (2.0-8.3); Neutrophils Percent Auto 78.2 % (45-73); Platelet Count 215 X10*3/uL (160-400); Red Blood Count 3.59 X10*6/uL (4.20-5.50); Red Cell Distribution Width 14.4 % (11.0-16.0); White Blood Count 11.1 X10*3/uL (4.8-10.8)
[2022-12-28 02:17] LABS: MANUAL DIFF FLAG NO
[2022-12-28] MEDS: Haloperidol Lactate 5 MG/ML VIAL 2 MG IVPUSH (02:25)
[2022-12-28 02:28] LABS: Lactic Acid 2.1 mmol/L (0.5-2.0)
[2022-12-28 02:39] LABS: B Type Natriuretic Peptide 982 pg/mL (<100)
[2022-12-28 04:09] LABS: Reflex Lactate? Lactic Acid Added
[2022-12-28 05:07] LABS: ~Lactic Acid-LAB USE ONLY 2.9 mmol/L (0.5-2.0)
[2022-12-28 05:45] LABS: ABG Base Excess -0.7 mmol/L; ABG HCO3 26 mmol/L (22-26); ABG pCO2 51 mmHg (32-45); ABG pH 7.31 (7.35-7.45); ABG pO2 99 mmHg (83-108)
[2022-12-28 06:23] LABS: Reflex Lactate? 2 Y
[2022-12-28 06:34] LABS: ABG Refer to POC result
[2022-12-28] MEDS: Furosemide 100 MG/10 ML VIAL 80 MG IVPUSH ×2 (06:48→17:23)
[2022-12-28 07:30] LABS: ~Lactic Acid-LAB USE ONLY 3.4 mmol/L (0.5-2.0)
[2022-12-28 07:36] LABS: D Dimer High Sensitivity 956 NG/ML
[2022-12-28 07:45] LABS: C Reactive Protein 11.01 mg/dL (< or = 0.50); Lactate Dehydrogenase 325 U/L (122-220)
[2022-12-28 07:53] LABS: Ferritin 97 ng/mL (10-250)
[2022-12-28 08:04] LABS: Erythrocyte Sedimentation Rate 64 MM/HR (0-20)
[2022-12-28 08:30] LABS: Thyroid Stimulating Hormone 1.79 uIU/mL (0.32-4.0)
--- NOTE | 2022-12-28 09:03 | P.HPCC_ITS ---
History of Present Illness Date of Service: 12/28/22 Attending physician on admission: Jose Antonio Dinh Chief Complaint: dyspnea/agitated confusion PMFSH Past Medical History Medical History Acquired hypothyroidism COPD (chronic obstructive pulmonary disease) Cough Depression, major, recurrent Diabetes Dyslipidemia Fibromyalgia Heart murmur Interstitial lung disease Kidney failure, acute Osteoarthritis of multiple joints Respiratory failure with hypoxia Type 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 Family History Family History Brother Substance use disorder Son Substance use disorder Daughter Substance use disorder Surgical History Surgical History H/O hemorrhoidectomy Hx of fusion of cervical spine Hx of tonsillectomy S/P anal fissurectomy S/P appendectomy S/P partial hysterectomy Social History Social History Household Members: Children Housing: House Do you presently have visiting nurse or other home services: No Alcohol intake: never Patient Tobacco Use Status: Former Tobacco user Quit Date: 15 years ago Years Smoked: 20 +/- on and off Smoked in Last 30 Days: No e-Cigarette/Vaping Use: Never Used Second Hand Smoke Exposure: No Use of substances other than those prescribed or required for medical reasons: No Advance Directives: Yes Advance Directives on File: Yes Advance Directives Date on File: 08/28/21 service: No Current occupational status: retired Current occupation: right handed Cognitive needs: No Hearing needs: No Vision needs: Yes Meds Allergies Allergy/AdvReac Type Severity Reaction Status Date / Time NSAIDS (Non-Steroidal Allergy Unknown Verified 12/03/22 10:33 Anti-Inflamma Ncyeihs-ABA-PrR Reductase AdvReac Severe LEG PAIN Verified 12/03/22 10:33 Inhibitor Active Medications: Current Medications Heparin Sodium (Porcine) (Heparin Sodium,Porcine 5,000 Unit/Ml Vial) 4,200 unit 40 unit/kg (4200 unit) IVPUSH PROTOCOL BOLUS PRN; Protocol PRN Reason: 40 unit/kg - Heparin Protocol Heparin Sodium (Porcine) (Heparin Sodium,Porcine 5,000 Unit/Ml Vial) 8,400 unit 80 unit/kg (8400 unit) IVPUSH PROTOCOL BOLUS PRN; Protocol PRN Reason: 80 unit/kg - Heparin Protocol Heparin Sodium/Sodium Chloride (Heparin Sodium,Porcine/1/2ns) 25,000 unit in 250 mls @ 0 mls/hr IVCONT .Q0M INGRID; Protocol Pharmacy Consult (Consult Rx Perform Med Rec) 1 each MISCELLANE ONCE PRN PRN Reason: Consult order Home Medications Medication Instructions Recorded Confirmed Last Taken Type calcipotriene 0.005 % topical 1 appl topical BID 08/27/21 10/30/22 Unknown History ointment sodium bicarbonate 325 mg tablet 650 mg PO BID 02/27/22 10/30/22 Unknown History furosemide 40 mg tablet 40 mg PO BID 03/27/22 10/30/22 Unknown History allopurinol 100 mg tablet 100 mg PO DAILY 09/11/22 10/30/22 Unknown History citalopram 20 mg tablet 20 mg PO DAILY 10/30/22 10/30/22 Unknown History famotidine 20 mg tablet 20 mg PO DAILY 10/30/22 10/30/22 Unknown History gabapentin 300 mg capsule 600 mg PO TID 10/30/22 10/30/22 Unknown History Physical Exam Vital Signs: Vital Signs: Last Vital Signs Temp 98.7 F 12/28/22 04:45 Pulse 99 12/28/22 08:26 Resp 13 12/28/22 08:26 BP 126/54 L 12/28/22 08:26 Pulse Ox 96 12/28/22 08:26 O2 Del Method Nasal Cannula 12/28/22 08:26 O2 Flow Rate 1 12/28/22 08:26 BMI result Body Mass Index 42.5 Results Labs 12/28/22 02:05 12/28/22 01:23 Labs: Laboratory Results - last 24 hr 12/28/22 12/28/22 12/28/22 00:21 00:58 01:23 MCV MCH MCHC RDW Plt Count MPV Immature Gran % (Auto) Neut % (Auto) Lymph % (Auto) [place] % (Auto) Eos % (Auto) Baso % (Auto) Lymph # (Auto) [place] # (Auto) Eos # (Auto) Baso # (Auto) Abs Immat Gran (auto) Absolute Neuts (auto) Absolute Nucleated RBC Nucleated RBC % (auto) ESR D-Dimer High Sensitivty O2 Saturation ABG pH at Pt Temp ABG pCO2 at Pt Temp ABG pO2 at Pt Temp ABG HCO3 ABG Base Excess (Actual) VBG pH VBG pCO2 VBG pO2 VBG HCO3 VBG O2 Saturation VBG Base Excess Anion Gap 23 H Estim Creat Clear Calc 12.8 Estimated GFR 12 POC Glucose 104 Random Glucose 109 Lactic Acid Lactic Acid F/U @ 2Hr Lactic Acid F/U @ 4Hr Calcium 8.9 Magnesium 1.8 Ferritin Total Bilirubin 0.8 AST 43 H ALT 7 Alkaline Phosphatase 105 Lactate Dehydrogenase Troponin I High Sens C-Reactive Protein B-Natriuretic Peptide Total Protein 7.4 Albumin 3.7 TSH COVID-19 (ISAAK) Negative COVID-19 Clin Com See Note 12/28/22 12/28/22 12/28/22 01:23 01:26 02:03 MCV MCH MCHC RDW Plt Count MPV Immature Gran % (Auto) Neut % (Auto) Lymph % (Auto) [place] % (Auto) Eos % (Auto) Baso % (Auto) Lymph # (Auto) [place] # (Auto) Eos # (Auto) Baso # (Auto) Abs Immat Gran (auto) Absolute Neuts (auto) Absolute Nucleated RBC Nucleated RBC % (auto) ESR D-Dimer High Sensitivty O2 Saturation ABG pH at Pt Temp ABG pCO2 at Pt Temp ABG pO2 at Pt Temp ABG HCO3 ABG Base Excess (Actual) VBG pH 7.29 L VBG pCO2 53 VBG pO2 43 VBG HCO3 26 VBG O2 Saturation 64.0 VBG Base Excess -0.9 Anion Gap Estim Creat Clear Calc Estimated GFR POC Glucose Random Glucose Lactic Acid 2.1 H* Lactic Acid F/U @ 2Hr Lactic Acid F/U @ 4Hr Calcium Magnesium Ferritin Total Bilirubin AST ALT Alkaline Phosphatase Lactate Dehydrogenase Troponin I High Sens 6428.7 H* C-Reactive Protein B-Natriuretic Peptide Total Protein Albumin TSH COVID-19 (ISAAK) COVID-19 Clin Com 12/28/22 12/28/22 12/28/22 02:05 02:07 04:19 MCV 98.6 H MCH 32.0 MCHC 32.5 RDW 14.4 Plt Count 215 MPV 10.6 Immature Gran % (Auto) 0.4 Neut % (Auto) 78.2 H Lymph % (Auto) 15.5 L [place] % (Auto) 4.9 Eos % (Auto) 0.6 Baso % (Auto) 0.4 Lymph # (Auto) 1.7 [place] # (Auto) 0.5 Eos # (Auto) 0.1 Baso # (Auto) 0.0 Abs Immat Gran (auto) 0.05 H Absolute Neuts (auto) 8.7 H Absolute Nucleated RBC 0.000 Nucleated RBC % (auto) 0.0 ESR D-Dimer High Sensitivty O2 Saturation ABG pH at Pt Temp ABG pCO2 at Pt Temp ABG pO2 at Pt Temp ABG HCO3 ABG Base Excess (Actual) VBG pH VBG pCO2 VBG pO2 VBG HCO3 VBG O2 Saturation VBG Base Excess Anion Gap Estim Creat Clear Calc Estimated GFR POC Glucose Random Glucose Lactic Acid Lactic Acid F/U @ 2Hr 2.9 H* Lactic Acid F/U @ 4Hr Calcium Magnesium Ferritin Total Bilirubin AST ALT Alkaline Phosphatase Lactate Dehydrogenase Troponin I High Sens C-Reactive Protein B-Natriuretic Peptide 982 H Total Protein Albumin TSH COVID-19 (ISAAK) COVID-19 [employer] 12/28/22 12/28/22 12/28/22 04:20 05:35 07:03 MCV MCH MCHC RDW Plt Count MPV Immature Gran % (Auto) Neut % (Auto) Lymph % (Auto) [place] % (Auto) Eos % (Auto) Baso % (Auto) Lymph # (Auto) [place] # (Auto) Eos # (Auto) Baso # (Auto) Abs Immat Gran (auto) Absolute Neuts (auto) Absolute Nucleated RBC Nucleated RBC % (auto) ESR D-Dimer High Sensitivty O2 Saturation 97.0 ABG pH at Pt Temp 7.31 L ABG pCO2 at Pt Temp 51 H ABG pO2 at Pt Temp 99 ABG HCO3 26 ABG Base Excess (Actual) -0.7 VBG pH VBG pCO2 VBG pO2 VBG HCO3 VBG O2 Saturation VBG Base Excess Anion Gap Estim Creat Clear Calc Estimated GFR POC Glucose Random Glucose Lactic Acid Lactic Acid F/U @ 2Hr Lactic Acid F/U @ 4Hr 3.4 H* Calcium Magnesium Ferritin Total Bilirubin AST ALT Alkaline Phosphatase Lactate Dehydrogenase Troponin I High Sens 7704.9 H* C-Reactive Protein B-Natriuretic Peptide Total Protein Albumin TSH COVID-19 (ISAAK) COVID-19 [employer] Soft Com 12/28/22 12/28/22 12/28/22 07:03 07:03 07:03 MCV MCH MCHC RDW Plt Count MPV Immature Gran % (Auto) Neut % (Auto) Lymph % (Auto) [place] % (Auto) Eos % (Auto) Baso % (Auto) Lymph # (Auto) [place] # (Auto) Eos # (Auto) Baso # (Auto) Abs Immat Gran (auto) Absolute Neuts (auto) Absolute Nucleated RBC Nucleated RBC % (auto) ESR 64 H D-Dimer High Sensitivty 956 O2 Saturation ABG pH at Pt Temp ABG pCO2 at Pt Temp ABG pO2 at Pt Temp ABG HCO3 ABG Base Excess (Actual) VBG pH VBG pCO2 VBG pO2 VBG HCO3 VBG O2 Saturation VBG Base Excess Anion Gap Estim Creat Clear Calc Estimated GFR POC Glucose Random Glucose Lactic Acid Lactic Acid F/U @ 2Hr Lactic Acid F/U @ 4Hr Calcium Magnesium Ferritin 97 Total Bilirubin AST ALT Alkaline Phosphatase Lactate Dehydrogenase 325 H Troponin I High Sens C-Reactive Protein 11.01 H B-Natriuretic Peptide Total Protein Albumin TSH 1.79 COVID-19 (ISAAK) COVID-19 Clin Com Imaging Radiologist's Impressions: Impressions Chest X-Ray 12/28/22 00:38 IMPRESSION: Chronic pulmonary fibrosis redemonstrated with diffuse bronchial wall thickening. An acute on chronic bronchitis may be present. Assessment and Plan Time Spent With Patient Time: Total time managing care of this patient today ____ minutes.
[2022-12-28 09:52] LABS: Adenovirus PCR Not Detected (Not Detect.); Bordetella parapertussis PCR Not Detected (Not Detect.); Bordetella pertussis PCR Not Detected (Not Detect.); Chlamydia pneumoniae PCR Not Detected (Not Detect.); Coronavirus 229E PCR Not Detected (Not Detect.); Coronavirus HKU1 PCR Not Detected (Not Detect.); Coronavirus NL63 PCR Not Detected (Not Detect.); Coronavirus OC43 PCR Not Detected (Not Detect.); Human metapneumovirus PCR Not Detected (Not Detect.); Influenza A PCR Not Detected (Not Detect.); Influenza B PCR Not Detected (Not Detect.); Mycoplasma pneumoniae PCR Not Detected (Not Detect.); Rhino/Enterovirus PCR Not Detected (Not Detect.); SARS-CoV-2 PCR Not Detected (Not Detect.)
[2022-12-28 09:53] LABS: Parainfluenza 1 PCR Not Detected (Not Detect.); Parainfluenza 2 PCR Not Detected (Not Detect.); Parainfluenza 3 PCR Not Detected (Not Detect.); Parainfluenza 4 PCR Not Detected (Not Detect.); RSV PCR Not Detected (Not Detect.)
--- NOTE | 2022-12-28 10:55 | PM.CNNEP ---
History of Present Illness Reason for Consult Consult date: 12/28/22 Reason for consult: Volume and CKD Requesting physician: Jose Antonio Dinh Chief Complaint Chief complaint: difficulty breathing and cp History of Present Illness Narrative: Ms. Ludy Atkins is an 82-year-old female with past medical history of CKD stage IV/V, HTN, T2DM, Hyperuricemia, hypothyroidism, and COPD/Bronchitis who presents 12/28/22 for AMS and dyspnea. The pt had her RUE AVF placed [facility]12[facility]24[facility]22 at [facility]. Since then she was getting progressively altered while taking the prescribed oxycodone and tramadol. She denies change in UOP volume. Labs are reassuring against hyperkalemia She has a mild AGMA with lactate. CXR shows Pulm Edema She was on BIPAP and now on nasal canula with returning mentation to near baseline. Review of Systems Constitutional: Denies anorexia, Denies chills and Reports frequent falls Denies dizziness Cardiovascular: Denies Abdominal Distension, Denies Epigastric Pain, Denies syncope, Reports edema, Reports leg edema and Reports dyspnea Respiratory: Reports dyspnea Gastrointestinal: Denies hematochezia Genitourinary: Denies difficulty voiding Reports confusion, Denies dizziness, Denies syncope and Reports frequent falls Psychiatric: Reports confusion PMFSH Past Medical History Medical History Acquired hypothyroidism COPD (chronic obstructive pulmonary disease) Cough Depression, major, recurrent Diabetes Dyslipidemia Fibromyalgia Heart murmur Interstitial lung disease Kidney failure, acute Osteoarthritis of multiple joints Respiratory failure with hypoxia Type 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 Family History Family History Brother Substance use disorder Son Substance use disorder Daughter Substance use disorder Surgical History Surgical History H/O hemorrhoidectomy Hx of fusion of cervical spine Hx of tonsillectomy S/P anal fissurectomy S/P appendectomy S/P partial hysterectomy Social History Social History Household Members: Children Housing: House Do you presently have visiting nurse or other home services: No Alcohol intake: never Patient Tobacco Use Status: Former Tobacco user Quit Date: 15 years ago Years Smoked: 20 +/- on and off Smoked in Last 30 Days: No e-Cigarette/Vaping Use: Never Used Second Hand Smoke Exposure: No Use of substances other than those prescribed or required for medical reasons: No Advance Directives: Yes Advance Directives on File: Yes Advance Directives Date on File: 08/28/21 service: No Current occupational status: retired Current occupation: right handed Cognitive needs: No Hearing needs: No Vision needs: Yes Meds Allergies Allergy/AdvReac Type Severity Reaction Status Date / Time NSAIDS (Non-Steroidal Allergy Unknown Verified 12/03/22 10:33 Anti-Inflamma Rtshkag-YGJ-CzK Reductase AdvReac Severe LEG PAIN Verified 12/03/22 10:33 Inhibitor Active Medications: Current Medications Heparin Sodium (Porcine) (Heparin Sodium,Porcine 5,000 Unit/Ml Vial) 4,200 unit 40 unit/kg (4200 unit) IVPUSH PROTOCOL BOLUS PRN; Protocol PRN Reason: 40 unit/kg - Heparin Protocol Heparin Sodium (Porcine) (Heparin Sodium,Porcine 5,000 Unit/Ml Vial) 8,400 unit 80 unit/kg (8400 unit) IVPUSH PROTOCOL BOLUS PRN; Protocol PRN Reason: 80 unit/kg - Heparin Protocol Heparin Sodium/Sodium Chloride (Heparin Sodium,Porcine/1/2ns) 25,000 unit in 250 mls @ 0 mls/hr IVCONT .Q0M INGRID; Protocol Pharmacy Consult (Consult Rx Perform Med Rec) 1 each MISCELLANE ONCE PRN PRN Reason: Consult order Home Medications Medication Instructions Recorded Confirmed Last Taken Type calcipotriene 0.005 % topical 1 appl topical BID 08/27/21 10/30/22 Unknown History ointment sodium bicarbonate 325 mg tablet 650 mg PO BID 02/27/22 10/30/22 Unknown History furosemide 40 mg tablet 40 mg PO BID 03/27/22 10/30/22 Unknown History allopurinol 100 mg tablet 100 mg PO DAILY 09/11/22 10/30/22 Unknown History citalopram 20 mg tablet 20 mg PO DAILY 10/30/22 10/30/22 Unknown History famotidine 20 mg tablet 20 mg PO DAILY 10/30/22 10/30/22 Unknown History gabapentin 300 mg capsule 600 mg PO TID 10/30/22 10/30/22 Unknown History Physical Exam Vital Signs: Last Vital Signs Temp 98.7 F 06/18/23 04:45 Pulse 98 12/28/22 09:56 Resp 18 12/28/22 09:56 BP 105/52 L 12/28/22 09:56 Pulse Ox 96 12/28/22 09:56 O2 Del Method Nasal Cannula 12/28/22 09:56 O2 Flow Rate 1 12/28/22 09:56 BMI result Body Mass Index 42.5 Const General: confusion Orientation/consciousness: confusion Chest Chest palpation & inspection: normal inspection of the chest and normal palpation of entire chest wall Resp Effort & Inspection: normal respiratory effort, no audible wheezes and no cough Auscultation: rales and no wheezes Cardio Jugular venous distension: JVD Rate: regular rate Rhythm: regular rhythm GI Inspection: Yes normal to inspection Palpation (GI): Soft to palpation Auscultation: normal bowel sounds Neuro General: confusion Extrem General: No edema Results Lab Results 12/28/22 02:05 12/28/22 01:23 Lab results: Chemistry 12/28/22 01:23 Sodium 136 Potassium 4.7 Carbon Dioxide 18 L BUN 60 H Creatinine 3.72 H Calcium 8.9 Hematology 12/28/22 02:05 WBC 11.1 H Hgb 11.5 L Plt Count 215 Assessment and Plan (1) Acute exacerbation of chronic obstructive pulmonary disease: Status: Acute (2) Elevated troponin I level: Status: Acute (3) Respiratory failure: Status: Acute (4) CKD stage 4 due to type 2 diabetes mellitus: Status: Acute Plan Ms. Ludy Atkins is an 82-year-old female with past medical history of CKD stage IV/V, HTN, T2DM, Hyperuricemia, hypothyroidism, and COPD/Bronchitis who presents 12/28/22 for AMS and dyspnea. 1. CKD stage IV/V Follows with me in office. Had known about her CKD for years, she used to see Nephrology in [place], [facility] in [place]. She actually had a percutaneous LUE AVF made, but this never developed and could not be salvaged due to DVT. I referred her for fistula formation which was done 12/24/22 (Dr Guillermo) in the LUE. She was discharged with narcotics and due to GFR they stacked and she became altered. This is not uremia She has good UOP, per patient. She has pulmonary edema but improving to nasal canula off bipap. Plan: - no acute indication for dialysis - start Lasix 80mg IV x1 and reassess - pending lab trend, I/O trend, will determine if permcath is necessary in near future - for now protect the RUE AVF. Daily assessments of bruit and thrill. - NO IV drawls on RUE - Renal restricted diet - oK to c/w home losartan if K and BP allow - no need for EPO - PTH is at goal on oupt draws Time Spent With Patient Time: Total time managing care of this patient today ____ minutes. Procedures Date of Service Date of Service: 12/28/22
--- NOTE | 2022-12-28 11:29 | P.CONCC_ITS ---
History of Present Illness Data of Consult Service Date: 12/28/22 Requesting physician: Nadir Shaffer Primary Care Provider: Unknown Physician HPI Reason for consult: acute hypoxemic respiratory failure/ delirium 82-year-old female who is a recent recipient of a right-sided and working AV fistula for dialysis because of chronic stage IV renal failure but still producing urine who shortly after the fistula was was placed on oxycodone and has since that time been delirious and seen in the emergency room 1 day earlier she was discharged with the thought that this was the oxycodone which is probably true but no sooner did she get home she developed chest discomfort and shortness of breath very acutely came back to the emergency room hypoxic with marked dyspnea and tachypnea and was placed on BiPAP with with a chest x-ray difficult to interpret because of central obesity and of course a chronic background of some form of COPD with pulmonary fibrosis and I noted on old CT scan some honeycombing as well and evidence of bilateral bronchiectasis but it looked like interstitial edema consistent with potentially pulmonary edema but of course him she is a diabetic with renal failure on maintenance prednisone SI could not rule out the possibility of some opportunistic infection as well she seemed to be slowly improving on the BiPAP and was not apparently total body fluid overloaded there was no edema no evidence of ascites clinically but her troponin was elevated at 7000 her BNP at nearly 1000 but her creatinine is 3.7 with the no with less than 20 cc renal clearance and is a known hypertensive but never known to have ischemic heart disease but of course that is part of our rule out mechanism here and therefore did a bedside echo and there was no primary valve or pericardial disease and left ventricle limited views seemed hyperdynamic without a segmental wall motion abnormality but there was a little right heart prominence potentially reflecting her chronic lung disease but again she still could have pulmonary edema either on a cardiogenic or noncardiogenic basis so we initially wanted to anticoagulate but in consultation with Cardiology specifically that was held off and then 4 hours later the delirium disappeared the agitation was gone the confusion was gone the restless leg issue was gone she was completely conversant and coherent and she was able to come off the BiPAP onto nasal cannula and seemed fine just with some residual diaphragmatic effort and some of this could easily be just an acute airway issue and still could be related to an infectious issue but may be more upper airway or lower airway but he no reflecting a a form of asthmatic bro nchitis so [address] the other I think we should lens strong consideration to antibiotic coverage Review of Systems Review of Systems: Yes all other systems are reviewed and are negative [facility] Past Medical History Medical History Acquired hypothyroidism COPD (chronic obstructive pulmonary disease) Cough Depression, major, recurrent Diabetes Dyslipidemia Fibromyalgia Heart murmur Interstitial lung disease Kidney failure, acute Osteoarthritis of multiple joints Respiratory failure with hypoxia Type 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 Family History Family History Brother Substance use disorder Son Substance use disorder Daughter Substance use disorder Surgical History Surgical History H/O hemorrhoidectomy Hx of fusion of cervical spine Hx of tonsillectomy S/P anal fissurectomy S/P appendectomy S/P partial hysterectomy Social History Social History Household Members: Children Housing: House Do you presently have visiting nurse or other home services: No Alcohol intake: never Patient Tobacco Use Status: Former Tobacco user Quit Date: 15 years ago Years Smoked: 20 +/- on and off Smoked in Last 30 Days: No e-Cigarette/Vaping Use: Never Used Second Hand Smoke Exposure: No Use of substances other than those prescribed or required for medical reasons: No Advance Directives: Yes Advance Directives on File: Yes Advance Directives Date on File: 08/28/21 service: No Current occupational status: retired Current occupation: right handed Cognitive needs: No Hearing needs: No Vision needs: Yes Meds Allergies Allergy/AdvReac Type Severity Reaction Status Date / Time NSAIDS (Non-Steroidal Allergy Unknown Verified 12/03/22 10:33 Anti-Inflamma Dsxwahe-EQV-CvS Reductase AdvReac Severe LEG PAIN Verified 12/03/22 10:33 Inhibitor Active Medications: Current Medications Heparin Sodium (Porcine) (Heparin Sodium,Porcine 5,000 Unit/Ml Vial) 4,200 unit 40 unit/kg (4200 unit) IVPUSH PROTOCOL BOLUS PRN; Protocol PRN Reason: 40 unit/kg - Heparin Protocol Heparin Sodium (Porcine) (Heparin Sodium,Porcine 5,000 Unit/Ml Vial) 8,400 unit 80 unit/kg (8400 unit) IVPUSH PROTOCOL BOLUS PRN; Protocol PRN Reason: 80 unit/kg - Heparin Protocol Heparin Sodium/Sodium Chloride (Heparin Sodium,Porcine/1/2ns) 25,000 unit in 250 mls @ 0 mls/hr IVCONT .Q0M INGRID; Protocol Pharmacy Consult (Consult Rx Perform Med Rec) 1 each MISCELLANE ONCE PRN PRN Reason: Consult order Physical Exam Vital Signs: Vital Signs: Last Vital Signs Temp 98.7 F 12/28/22 04:45 Pulse 98 12/28/22 09:56 Resp 18 12/28/22 09:56 BP 105/52 L 12/28/22 09:56 Pulse Ox 96 12/28/22 09:56 O2 Del Method Nasal Cannula 12/28/22 09:56 O2 Flow Rate 1 12/28/22 09:56 BMI result Body Mass Index 42.5 initially confused staring unable to answer very restless legs and currently fully reversed awake alert and oriented afebrile with good bilateral carotid upstrokes no neck vein distension no peripheral edema no evidence of skin cellulitis and a clean wound in the right arm nonfocal neurologically with normal tone abdomen is obese but no organomegaly or tenderness mild bilateral end-expiratory wheezing and some residual diaphragmatic effort bedside echo showing preserved LV function without focality but some prominence to the right ventricle Results Labs 12/28/22 02:05 12/28/22 01:23 Labs: Short CBC 12/28/22 Range/Units 02:05 WBC 11.1 H (4.8-10.8) X10*3/uL Hgb 11.5 L (12.0-16.0) g/dl Hct 35.4 L (37.0-47.0) % Plt Count 215 (160-400) X10*3/uL BMP 12/28/22 01:23 Sodium 136 Potassium 4.7 Chloride 100 Carbon Dioxide 18 L BUN 60 H Creatinine 3.72 H Calcium 8.9 Liver Function 12/28/22 Range/Units 01:23 Total Bilirubin 0.8 (0.0-1.0) mg/dL AST 43 H (5-31) U/L ALT 7 (0-31) U/L Alkaline Phosphatase 105 (39-117) U/L Albumin 3.7 (3.5-5.0) g/dL Assessment and Plan (1) CKD stage 4 due to type 2 diabetes mellitus: Status: Acute (2) Acute exacerbation of chronic obstructive pulmonary disease: Status: Acute (3) Congestive heart failure: Qualifiers: Heart failure chronicity: acute Status: Acute (4) Elevated troponin I level: Status: Acute (5) Respiratory failure: Status: Acute (6) Cough: Status: Acute (7) Right kidney mass: Status: Acute (8) Diverticulitis: Status: Acute (9) Fibromyalgia: Status: Acute (10) Respiratory failure with hypoxia: Status: Acute (11) SOB (shortness of breath): Status: Acute (12) Interstitial lung disease: Status: Acute (13) Depression, major, recurrent: Status: Acute (14) Dyslipidemia: Status: Acute (15) Anemia: Status: Acute (16) Acquired hypothyroidism: Status: Acute (17) CKD (chronic kidney disease) stage 4, GFR 15-29 ml/min: Status: Acute (18) Delirium: Status: Acute Plan so at this point what I believed to be either interstitial edema possibly related to diastolic dysfunction of the ventricle versus ischemia and therefore I think needs to have some form of nuclear stress testing but I would continue her bronchodilator therapy and possibly broad-spectrum antibiotic coverage for a potential opportunistic infected and given the extent of her airway disease it could still be lower respiratory tract but be but represent asthmatic bronchitis and of course follow-up by Renal to prescribed diuretics and to cover the other medications that have potential toxic side effects in the light of her renal insufficiency and start by eliminating the tramadol and the oxycodone and possibly modifying the dosage of the allopurinol and the dopaminergic drugs for her restless leg Time Spent With Patient Time: Total time managing care of this patient today 60____ minutes.
--- NOTE | 2022-12-28 12:05 | PHA.MEDREC ---
Pharmacy Consult ? Medication Reconciliation Pharmacy has completed the medication reconciliation. Spoke to patient to confirm meds along with family at bedside. Patient had an incomplete list with them. Went over all meds with patient to confirm. Patient states they are no longer on trelegy inhaler and are on guafenesin TID.
[2022-12-28 12:09] LABS: INTERNATIONAL NORM RATIO 1.1 (0.9-1.1); Prothrombin Time 12.2 SEC (10.0-13.1)
[2022-12-28 12:17] LABS: Partial Thromboplastin Time 22.8 SEC (26.0-36.4)
--- NOTE | 2022-12-28 12:42 | P.HPHOSP_ITS ---
the patient was seen and evaluated with ALEX Parnell. I agree with her note, assessment and plan with the following. ?an 82-year-old female with past medical history of CKD4, ILD/pulmonary fibrosis / COPD on 2 L of p.r.n. oxygen, DM? who presented with AMS and dyspnea. found to have hypoxia and elevated cardiac enzymes. acute respiratory failure with hypoxia and hypercarbia 2/2 CHF exacerbation in setting of acute NSTEMI weaned off bipap obtain b/l LE US to eval for DVT. heparin drip for NSTEMI breathing treatments and diuretics. ECHO cardiology consult Rest of evaluations by ALEX note. History of Present Illness Date of Service: 12/28/22 Attending physician on admission: Chet Cunningham Chief Complaint: hallucinations This is an 82-year-old female with multiple medical problems was brought in by ambulance due to hallucinations. On December 24 she underwent percutaneous RUE AV fistula formation. she was given oxycodone for pain management which she reported was too strong so she requested alternative and was prescribed Ultram. Since starting those medication she has had intermittent hallucinations. She was brought into the emergency department last evening with hallucinations and dyspnea. The patient also is reporting chest pain at that time. She was noted to be hypoxic and required high-flow oxygen and then BiPAP. She was given m ultiple breathing treatments, IV Solu-Medrol, 1 dose of IV Lasix. Cardiac enzymes were elevated at 6428, 7704 and given hypoxia there was concern for possible PE versus NSTEMI. Due to her renal dysfunction she was unable to have CTA. BNP was also elevated around 1000. she was initially requiring high-flow oxygen and then BiPAP and because of this and her altered mental status the plan was for her to go to the ICU. However patient improved significantly in her mentation has improved at this time. She has been weaned off of BiPAP and on 1 L of oxygen saturating in the mid 90s. She denies any shortness of breath or chest pain at this time and will be admitted to [facility] floor for further management. Review of Systems Review of Systems: Yes all other systems are reviewed and are negative Constitutional: Constitutional: Denies chills and Denies fever(s) Cardiovascular: Cardiovascular: Denies chest pain, Denies palpitations and Denies dyspnea Respiratory: Respiratory: Denies cough and Denies dyspnea Gastrointestinal: Gastrointestinal: Denies abdominal pain, Denies nausea and Denies vomiting Endocrine: Endocrine: Denies palpitations [facility] Medical History Acquired hypothyroidism COPD (chronic obstructive pulmonary disease) Cough Depression, major, recurrent Diabetes Dyslipidemia Fibromyalgia Heart murmur Interstitial lung disease Kidney failure, acute Osteoarthritis of multiple joints Respiratory failure with hypoxia Type 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 Family History Brother Substance use disorder Son Substance use disorder Daughter Substance use disorder Surgical History H/O hemorrhoidectomy Hx of fusion of cervical spine Hx of tonsillectomy S/P anal fissurectomy S/P appendectomy S/P partial hysterectomy Social History Household Members: Children Housing: House Do you presently have visiting nurse or other home services: No Alcohol intake: never Patient Tobacco Use Status: Former Tobacco user Quit Date: 15 years ago Years Smoked: 20 +/- on and off Smoked in Last 30 Days: No e-Cigarette/Vaping Use: Never Used Second Hand Smoke Exposure: No Use of substances other than those prescribed or required for medical reasons: No Advance Directives: Yes Advance Directives on File: Yes Advance Directives Date on File: 08/28/21 service: No Current occupational status: retired Current occupation: right handed Cognitive needs: No Hearing needs: No Vision needs: Yes Meds Allergies Allergy/AdvReac Type Severity Reaction Status Date / Time NSAIDS (Non-Steroidal Allergy Unknown Verified 12/03/22 10:33 Anti-Inflamma [id number] Reductase AdvReac Severe LEG PAIN Verified 12/03/22 10:33 Inhibitor Active Medications: Current Medications Acetaminophen (Acetaminophen 325 Mg Tablet) 650 mg PO Q6H PRN PRN Reason: Pain, Mild (Pain Scale 1-3) Docusate Sodium (Docusate Sodium 100 Mg Capsule) 100 mg PO DAILY PRN PRN Reason: Constipation Famotidine (Famotidine 20 Mg Tablet) 20 mg PO DAILY INGRID Heparin Sodium (Porcine) (Heparin Sodium,Porcine 5,000 Unit/Ml Vial) 4,200 unit 40 unit/kg (4200 unit) IVPUSH PROTOCOL BOLUS PRN; Protocol PRN Reason: 40 unit/kg - Heparin Protocol Heparin Sodium (Porcine) (Heparin Sodium,Porcine 5,000 Unit/Ml Vial) 8,400 unit 80 unit/kg (8400 unit) IVPUSH PROTOCOL BOLUS PRN; Protocol PRN Reason: 80 unit/kg - Heparin Protocol Heparin Sodium/Sodium Chloride (Heparin Sodium,Porcine/1/2ns) 25,000 unit in 250 mls @ 0 mls/hr IVCONT .Q0M [facility]; Protocol Levothyroxine Sodium (Levothyroxine Sodium 100 Mcg Tablet) 100 mcg PO DAILY@0600 [facility] Omeprazole (Omeprazole 20 Mg Capsule.Dr) 20 mg PO DAILY@0630 [facility] Ondansetron HCl (Ondansetron Hcl 4 Mg/2 Ml Vial) 4 mg IVPUSH Q8H PRN PRN Reason: Nausea and Vomiting Pharmacy Consult (Consult Rx Perform Med Rec) 1 each MISCELLANE ONCE PRN PRN Reason: Consult order Sodium Bicarbonate (Sodium Bicarbonate 650 Mg Tablet) 650 mg PO BID [facility] Sodium Chloride (0.9 % Sodium Chloride Flush 3 Ml Syringe) 3 ml IVFLUSH QSHIFT [facility] Home Medications Medication Instructions Recorded Confirmed Last Taken Type albuterol sulfate 90 mcg/actuation 2 puff inhalation Q4-6H PRN 12/28/22 12/28/22 Unknown History aerosol inhaler Shortness Of Breath Or Wheezing allopurinol 100 mg tablet 100 mg PO DAILY 12/28/22 12/28/22 12/27/22 09:00 History cetirizine 10 mg tablet (Zyrtec) 10 mg PO DAILY 12/28/22 12/28/22 12/27/22 09:00 History citalopram 20 mg tablet 20 mg PO DAILY 12/28/22 12/28/22 12/27/22 09:00 History ezetimibe 10 mg tablet 10 mg PO DAILY 12/28/22 12/28/22 12/27/22 09:00 History famotidine 20 mg tablet 20 mg PO DAILY 12/28/22 12/28/22 12/27/22 09:00 History gabapentin 300 mg capsule 600 mg PO TID 12/28/22 12/28/22 12/27/22 09:00 History guaifenesin 400 mg tablet 800 mg PO TID congestion 12/28/22 12/28/22 12/27/22 09:00 History levothyroxine 100 mcg tablet 100 mcg PO DAILY@0600 12/28/22 12/28/22 12/27/22 06:00 History losartan 25 mg tablet 25 mg PO BEDTIME 12/28/22 12/28/22 12/26/22 History pantoprazole 40 mg tablet,delayed 40 mg PO DAILY@0630 12/28/22 12/28/22 12/27/22 06:30 History release pramipexole 0.25 mg tablet 0.25 mg PO BEDTIME 12/28/22 12/28/22 12/26/22 History sodium bicarbonate 325 mg tablet 650 mg PO BID 12/28/22 12/28/22 12/27/22 09:00 History Physical Exam Vital Signs and Narrative: Vital Signs: Last Vital Signs Temp 98.7 F 12/28/22 04:45 Pulse 98 12/28/22 09:56 Resp 18 12/28/22 09:56 BP 105/52 L 12/28/22 09:56 Pulse Ox 96 12/28/22 09:56 O2 Del Method Nasal Cannula 12/28/22 09:56 O2 Flow Rate 1 12/28/22 09:56 BMI result Body Mass Index 42.5 Const: General: healthy appearing, comfortable, alert, awake and acute distress Nutritional Appearance: obese Orientation/consciousness: patient oriented x3 Resp: Other: dry crackles b/l Effort & Inspection: normal respiratory effort, able to speak in complete sentences, no respiratory distress and no use of accessory muscles Cardio: Rate: regular rate Heart sounds: S1 normal heart sound present and S2 normal heart sound present GI: Inspection: No distended Palpation (GI): Soft to palpation and nontender Skin: Other: warm and dry; bruising b/l upper extremities/hands Neuro: General: patient oriented x3, moves all extremities and CN's II-XI intact bilaterally Extrem: Other: RUE incision from AVF formation at AC fossa. no surrounding erythema Results Labs 12/28/22 02:05 12/28/22 01:23 Labs: Laboratory Results - last 24 hr 12/28/22 12/28/22 12/28/22 00:21 00:58 01:23 MCV MCH MCHC RDW Plt Count MPV Immature Gran % (Auto) Neut % (Auto) Lymph % (Auto) Ogle % (Auto) Eos % (Auto) Baso % (Auto) Lymph # (Auto) Ogle # (Auto) Eos # (Auto) Baso # (Auto) Abs Immat Gran (auto) Absolute Neuts (auto) Absolute Nucleated RBC Nucleated RBC % (auto) ESR PT INR APTT D-Dimer High Sensitivty O2 Saturation ABG pH at Pt Temp ABG pCO2 at Pt Temp ABG pO2 at Pt Temp ABG HCO3 ABG Base Excess (Actual) VBG pH VBG pCO2 VBG pO2 VBG HCO3 VBG O2 Saturation VBG Base Excess Anion Gap 23 H Estim Creat Clear Calc 12.8 Estimated GFR 12 POC Glucose 104 Random Glucose 109 Lactic Acid Lactic Acid F/U @ 2Hr Lactic Acid F/U @ 4Hr Calcium 8.9 Magnesium 1.8 Ferritin Total Bilirubin 0.8 AST 43 H ALT 7 Alkaline Phosphatase 105 Lactate Dehydrogenase Troponin I High Sens C-Reactive Protein B-Natriuretic Peptide Total Protein 7.4 Albumin 3.7 TSH Respiratory Panel Green Adenovirus (Rapid PCR) B.pert (TEM-PCR) B.parapertussis DNA PCR C. pneumoniae DNA (PCR) Coronavirus OC43 (PCR) Coronavirus HKU1 (PCR) Coronavirus 229E (PCR) COVID-19 (ISAAK) Negative COVID-19 Clin Com See Note Coronavirus NL63 (PCR) Human Metapneumovir PCR Influenza A (RT-PCR) Influenza B (RT-PCR) M. pneumoniae (PCR) Parainfluenza 1 (PCR) Parainfluenza 2 (PCR) Parainfluenza 3 (PCR) Parainfluenza 4 (PCR) RSV (PCR) Entero/Rhino (PCR) SARS-CoV-2 RNA (RT-PCR) 12/28/22 12/28/22 12/28/22 01:23 01:26 02:03 MCV MCH MCHC RDW Plt Count MPV Immature Gran % (Auto) Neut % (Auto) Lymph % (Auto) Ogle % (Auto) Eos % (Auto) Baso % (Auto) Lymph # (Auto) Ogle # (Auto) Eos # (Auto) Baso # (Auto) Abs Immat Gran (auto) Absolute Neuts (auto) Absolute Nucleated RBC Nucleated RBC % (auto) ESR PT INR APTT D-Dimer High Sensitivty O2 Saturation ABG pH at Pt Temp ABG pCO2 at Pt Temp ABG pO2 at Pt Temp ABG HCO3 ABG Base Excess (Actual) VBG pH 7.29 L VBG pCO2 53 VBG pO2 43 VBG HCO3 26 VBG O2 Saturation 64.0 VBG Base Excess -0.9 Anion Gap Estim Creat Clear Calc Estimated GFR POC Glucose Random Glucose Lactic Acid 2.1 H* Lactic Acid F/U @ 2Hr Lactic Acid F/U @ 4Hr Calcium Magnesium Ferritin Total Bilirubin AST ALT Alkaline Phosphatase Lactate Dehydrogenase Troponin I High Sens 6428.7 H* C-Reactive Protein B-Natriuretic Peptide Total Protein Albumin TSH Respiratory Panel Green Adenovirus (Rapid PCR) B.pert (TEM-PCR) B.parapertussis DNA PCR C. pneumoniae DNA (PCR) Coronavirus OC43 (PCR) Coronavirus HKU1 (PCR) Coronavirus 229E (PCR) COVID-19 (ISAAK) COVID-19 Clin Com Coronavirus NL63 (PCR) Human Metapneumovir PCR Influenza A (RT-PCR) Influenza B (RT-PCR) M. pneumoniae (PCR) Parainfluenza 1 (PCR) Parainfluenza 2 (PCR) Parainfluenza 3 (PCR) Parainfluenza 4 (PCR) RSV (PCR) Entero/Rhino (PCR) SARS-CoV-2 RNA (RT-PCR) 12/28/22 12/28/22 12/28/22 02:05 02:07 04:19 MCV 98.6 H MCH 32.0 MCHC 32.5 RDW 14.4 Plt Count 215 MPV 10.6 Immature Gran % (Auto) 0.4 Neut % (Auto) 78.2 H Lymph % (Auto) 15.5 L Ogle % (Auto) 4.9 Eos % (Auto) 0.6 Baso % (Auto) 0.4 Lymph # (Auto) 1.7 Ogle # (Auto) 0.5 Eos # (Auto) 0.1 Baso # (Auto) 0.0 Abs Immat Gran (auto) 0.05 H Absolute Neuts (auto) 8.7 H Absolute Nucleated RBC 0.000 Nucleated RBC % (auto) 0.0 ESR PT INR APTT D-Dimer High Sensitivty O2 Saturation ABG pH at Pt Temp ABG pCO2 at Pt Temp ABG pO2 at Pt Temp ABG HCO3 ABG Base Excess (Actual) VBG pH VBG pCO2 VBG pO2 VBG HCO3 VBG O2 Saturation VBG Base Excess Anion Gap Estim Creat Clear Calc Estimated GFR POC Glucose Random Glucose Lactic Acid Lactic Acid F/U @ 2Hr 2.9 H* Lactic Acid F/U @ 4Hr Calcium Magnesium Ferritin Total Bilirubin AST ALT Alkaline Phosphatase Lactate Dehydrogenase Troponin I High Sens C-Reactive Protein B-Natriuretic Peptide 982 H Total Protein Albumin TSH Respiratory Panel Green Adenovirus (Rapid PCR) B.pert (TEM-PCR) B.parapertussis DNA PCR C. pneumoniae DNA (PCR) Coronavirus OC43 (PCR) Coronavirus HKU1 (PCR) Coronavirus 229E (PCR) COVID-19 (ISAAK) COVID-19 Clin Com Coronavirus NL63 (PCR) Human Metapneumovir PCR Influenza A (RT-PCR) Influenza B (RT-PCR) M. pneumoniae (PCR) Parainfluenza 1 (PCR) Parainfluenza 2 (PCR) Parainfluenza 3 (PCR) Parainfluenza 4 (PCR) RSV (PCR) Entero/Rhino (PCR) SARS-CoV-2 RNA (RT-PCR) 12/28/22 12/28/22 12/28/22 04:20 05:35 07:03 MCV MCH MCHC RDW Plt Count MPV Immature Gran % (Auto) Neut % (Auto) Lymph % (Auto) Ogle % (Auto) Eos % (Auto) Baso % (Auto) Lymph # (Auto) Ogle # (Auto) Eos # (Auto) Baso # (Auto) Abs Immat Gran (auto) Absolute Neuts (auto) Absolute Nucleated RBC Nucleated RBC % (auto) ESR PT INR APTT D-Dimer High Sensitivty O2 Saturation 97.0 ABG pH at Pt Temp 7.31 L ABG pCO2 at Pt Temp 51 H ABG pO2 at Pt Temp 99 ABG HCO3 26 ABG Base Excess (Actual) -0.7 VBG pH VBG pCO2 VBG pO2 VBG HCO3 VBG O2 Saturation VBG Base Excess Anion Gap Estim Creat Clear Calc Estimated GFR POC Glucose Random Glucose Lactic Acid Lactic Acid F/U @ 2Hr Lactic Acid F/U @ 4Hr 3.4 H* Calcium Magnesium Ferritin Total Bilirubin AST ALT Alkaline Phosphatase Lactate Dehydrogenase Troponin I High Sens 7704.9 H* C-Reactive Protein B-Natriuretic Peptide Total Protein Albumin TSH Respiratory Panel Green Adenovirus (Rapid PCR) B.pert (TEM-PCR) B.parapertussis DNA PCR C. pneumoniae DNA (PCR) Coronavirus OC43 (PCR) Coronavirus HKU1 (PCR) Coronavirus 229E (PCR) COVID-19 (ISAAK) COVID-19 Clin Com Coronavirus NL63 (PCR) Human Metapneumovir PCR Influenza A (RT-PCR) Influenza B (RT-PCR) M. pneumoniae (PCR) Parainfluenza 1 (PCR) Parainfluenza 2 (PCR) Parainfluenza 3 (PCR) Parainfluenza 4 (PCR) RSV (PCR) Entero/Rhino (PCR) SARS-CoV-2 RNA (RT-PCR) 12/28/22 12/28/22 12/28/22 07:03 07:03 07:03 MCV MCH MCHC RDW Plt Count MPV Immature Gran % (Auto) Neut % (Auto) Lymph % (Auto) Ogle % (Auto) Eos % (Auto) Baso % (Auto) Lymph # (Auto) Ogle # (Auto) Eos # (Auto) Baso # (Auto) Abs Immat Gran (auto) Absolute Neuts (auto) Absolute Nucleated RBC Nucleated RBC % (auto) ESR 64 H PT INR APTT D-Dimer High Sensitivty 956 O2 Saturation ABG pH at Pt Temp ABG pCO2 at Pt Temp ABG pO2 at Pt Temp ABG HCO3 ABG Base Excess (Actual) VBG pH VBG pCO2 VBG pO2 VBG HCO3 VBG O2 Saturation VBG Base Excess Anion Gap Estim Creat Clear Calc Estimated GFR POC Glucose Random Glucose Lactic Acid Lactic Acid F/U @ 2Hr Lactic Acid F/U @ 4Hr Calcium Magnesium Ferritin 97 Total Bilirubin AST ALT Alkaline Phosphatase Lactate Dehydrogenase 325 H Troponin I High Sens C-Reactive Protein 11.01 H B-Natriuretic Peptide Total Protein Albumin TSH 1.79 Respiratory Panel Green Adenovirus (Rapid PCR) B.pert (TEM-PCR) B.parapertussis DNA PCR C. pneumoniae DNA (PCR) Coronavirus OC43 (PCR) Coronavirus HKU1 (PCR) Coronavirus 229E (PCR) COVID-19 (ISAAK) COVID-19 Clin Com Coronavirus NL63 (PCR) Human Metapneumovir PCR Influenza A (RT-PCR) Influenza B (RT-PCR) M. pneumoniae (PCR) Parainfluenza 1 (PCR) Parainfluenza 2 (PCR) Parainfluenza 3 (PCR) Parainfluenza 4 (PCR) RSV (PCR) Entero/Rhino (PCR) SARS-CoV-2 RNA (RT-PCR) 12/28/22 12/28/22 08:47 11:52 MCV MCH MCHC RDW Plt Count MPV Immature Gran % (Auto) Neut % (Auto) Lymph % (Auto) Ogle % (Auto) Eos % (Auto) Baso % (Auto) Lymph # (Auto) Ogle # (Auto) Eos # (Auto) Baso # (Auto) Abs Immat Gran (auto) Absolute Neuts (auto) Absolute Nucleated RBC Nucleated RBC % (auto) ESR PT 12.2 INR 1.1 APTT 22.8 L D-Dimer High Sensitivty O2 Saturation ABG pH at Pt Temp ABG pCO2 at Pt Temp ABG pO2 at Pt Temp ABG HCO3 ABG Base Excess (Actual) VBG pH VBG pCO2 VBG pO2 VBG HCO3 VBG O2 Saturation VBG Base Excess Anion Gap Estim Creat Clear Calc Estimated GFR POC Glucose Random Glucose Lactic Acid Lactic Acid F/U @ 2Hr Lactic Acid F/U @ 4Hr Calcium Magnesium Ferritin Total Bilirubin AST ALT Alkaline Phosphatase Lactate Dehydrogenase Troponin I High Sens C-Reactive Protein B-Natriuretic Peptide Total Protein Albumin TSH Respiratory Panel Green See Note Adenovirus (Rapid PCR) Not Detected B.pert (TEM-PCR) Not Detected B.parapertussis DNA PCR Not Detected C. pneumoniae DNA (PCR) Not Detected Coronavirus OC43 (PCR) Not Detected Coronavirus HKU1 (PCR) Not Detected Coronavirus 229E (PCR) Not Detected COVID-19 (ISAAK) COVID-19 Clin Com Coronavirus NL63 (PCR) Not Detected Human Metapneumovir PCR Not Detected Influenza A (RT-PCR) Not Detected Influenza B (RT-PCR) Not Detected M. pneumoniae (PCR) Not Detected Parainfluenza 1 (PCR) Not Detected Parainfluenza 2 (PCR) Not Detected Parainfluenza 3 (PCR) Not Detected Parainfluenza 4 (PCR) Not Detected RSV (PCR) Not Detected Entero/Rhino (PCR) Not Detected SARS-CoV-2 RNA (RT-PCR) Not Detected Imaging Radiologist's Impressions: Impressions Chest X-Ray 12/28/22 00:38 IMPRESSION: Chronic pulmonary fibrosis redemonstrated with diffuse bronchial wall thickening. An acute on chronic bronchitis may be present. Assessment and Plan (1) Elevated troponin I level: Status: Acute (2) Hallucination, visual: Status: Acute (3) NSTEMI (non-ST elevated myocardial infarction): Status: Acute Plan This is an 82-year-old female with past medical history of CKD4, ILD/pulmonary fibrosis / COPD on 2 L of p.r.n. oxygen, DM who was brought to the emergency department for evaluation of altered mental status and dyspnea found to have hypoxia and elevated cardiac enzymes initially placed on BiPAP and planned for ICU admission but significantly improved and down to 1 L supplemental oxygen now being admitted to the medical floor for further management acute respiratory failure with hypoxia and hypercarbia likely secondary to CHF in the setting of acute AR received 1 dose IV lasix in ED with good effect weaned off bipap and on 1L NC initially thought possible PE but given CKD unable to have CTA. dimer around 1000 - will obtain b/l LE US to eval for DVT. will be on heparin drip for NSTEMI anyway. less likely PE as hypoxia improved with breathing treatments and diuretics. NSTEMI cardiac enzymes elevated, peak 7704, now trending down AC with heparin drip ECHO pending cardiology consult pending will start low dose BB, allergy to statins, allergy to nsaids listed - will discuss if able to take asa, if so will start baby aspirin Acute CHF, probable diastolic last echo from 08/2021- with preserved ejection fraction received 1 dose of IV lasix in ED will give additional dose of lasix this evening and then monitor fluid status toxic encephalopathy secondary to medicaications resolved, back to baseline mentation hold sedating meds for now DEVIN on CKD4/metabolic acidosis continue sodium bicarb nephrology following follow BMP recent RUE fistula formation - no lab draws/vitals on right arm elevated ESR/CRP likely reactive related to acute AR acute lactic acidosis no evidence of infection /sepsis likely secondary to hypoxia/breathing treatments ILD/pulmonary fibrosis has severe dz according to outptient pulm notes supplemental o2 prn prn breathing treatments DM SSI, POCs diet controlled - low Hba1c ada diet HTN hold losartan for soft bp hypothyroidism Continue home Synthroid restless leg syndrome mirapex not indicated with current renal function morbid obesity BMI 42.5 may be contributing to respiratory issues weight loss encouraged dvt ppx - heparin code status - DNR/DNI Time Spent With Patient Time: Total time managing care of this patient today ____ minutes. Quality Stroke Does the patient have a stroke diagnosis?: No VTE Prior VTE?: No VTE Risk Level:: Medical - moderate - high VTE Device Contraindication: N/A - Device Ordered VTE Drug Contraindication: N/A - Med Ordered
[2022-12-28] MEDS: Heparin Sodium,Porcine 5,000 UNIT/ML VIAL 8400 UNIT IVPUSH (13:28)
[2022-12-28] MEDS: Heparin Sodium,Porcine/1/2NS 25,000 UNIT/250 ML IV.SOLN 14.77 UNIT IVCONT (13:29)
--- NOTE | 2022-12-28 13:34 | PM.CNCAR ---
History of Present Illness History of Present Illness Date of Service: 12/28/22 Requesting physician: Meliza Snow Consult reason: myocardial infarction and other (Acute respiratory failure) Chief complaint: NSTEMI Narrative: I was consulted to see Ludy in cardiology consultation today for acute respiratory failure. She is 82-year-old female who was brought in with chest pain with sudden worsening of her breathing as well as altered mental status by her family members. History was obtained from the patient as well as patient's son. About 2 days ago she underwent the surgery for placement of AV fistula. She was then started on oxycodone. She felt confused and loopy and was brought to the emergency room yesterday. After workup she was sent home and then she came back again with some onset chest pain associated with shortness of breath and inability to breathe. She was in acute respiratory failure initially requiring BiPAP. Her troponins are markedly elevated in the 7000 range with BNP in the 9 and 80 range. She has never had any prior myocardial infarction. She was then managed with BiPAP was diuresed and subsequently she is currently chest pain-free and readings back to a baseline as per her. She is on 1 L nasal cannula. She has multiple comorbidities including advanced renal failure related to diabetes, chronic respiratory failure related to pulmonary fibrosis, limited functional capacity. Diabetes. She denies having prior myocardial infarction. EKG does not show any acute ST T wave changes although shows inferior Q-waves which are old. Echocardiogram from August 2021 shows normal LV systolic function without major valvular abnormality. Review of Systems Constitutional: Constitutional: Denies chills, Denies fever(s), Reports weakness and Reports other (Altered mental status) Eyes: Eyes: Reports no additional eye complaints Cardiovascular: Cardiovascular: Reports chest pain at rest, Denies rapid heart rate, Denies lightheadedness, Denies Loss of Consciousness, Denies palpitations and Reports dyspnea Respiratory: Respiratory: Denies excessive phlegm production, Reports dyspnea and Denies wheezing Gastrointestinal: Gastrointestinal: Reports no additional gastrointestinal complaints Genitourinary: Genitourinary: Reports no additional female genitourinary complaints Musculoskeletal: Musculoskeletal: Reports no additional musculoskeletal complaints Integumentary/Breasts: Skin/Breast: Reports system reviewed and no additional complaints, except as docu Neurologic: Reports system reviewed and no additional complaints, except as documented and Reports weakness Psychiatric: Psychiatric: Reports no additional psychiatric complaints Endocrine: Endocrine: Reports no additional endocrine complaints and Denies palpitations Allergic/Immunologic: Allergic/Immunologic: Denies wheezing [facility] Past Medical History Medical History Acquired hypothyroidism COPD (chronic obstructive pulmonary disease) Cough Depression, major, recurrent Diabetes Dyslipidemia Fibromyalgia Heart murmur Interstitial lung disease Kidney failure, acute Osteoarthritis of multiple joints Respiratory failure with hypoxia Type 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 Family History Family History Brother Substance use disorder Son Substance use disorder Daughter Substance use disorder Surgical History Surgical History H/O hemorrhoidectomy Hx of fusion of cervical spine Hx of tonsillectomy S/P anal fissurectomy S/P appendectomy S/P partial hysterectomy Social History Social History Household Members: Children Housing: House Do you presently have visiting nurse or other home services: No Alcohol intake: never Patient Tobacco Use Status: Former Tobacco user Quit Date: 15 years ago Years Smoked: 20 +/- on and off Smoked in Last 30 Days: No e-Cigarette/Vaping Use: Never Used Second Hand Smoke Exposure: No Use of substances other than those prescribed or required for medical reasons: No Advance Directives: Yes Advance Directives on File: Yes Advance Directives Date on File: 08/28/21 service: No Current occupational status: retired Current occupation: right handed Cognitive needs: No Hearing needs: No Vision needs: Yes Meds Allergies Allergy/AdvReac Type Severity Reaction Status Date / Time NSAIDS (Non-Steroidal Allergy Unknown Verified 12/03/22 10:33 Anti-Inflamma [id number] Reductase AdvReac Severe LEG PAIN Verified 12/03/22 10:33 Inhibitor Active Medications: Current Medications Acetaminophen (Acetaminophen 325 Mg Tablet) 650 mg PO Q6H PRN PRN Reason: Pain, Mild (Pain Scale 1-3) Docusate Sodium (Docusate Sodium 100 Mg Capsule) 100 mg PO DAILY PRN PRN Reason: Constipation Famotidine (Famotidine 20 Mg Tablet) 20 mg PO DAILY INGRID Heparin Sodium (Porcine) (Heparin Sodium,Porcine 5,000 Unit/Ml Vial) 4,200 unit 40 unit/kg (4200 unit) IVPUSH PROTOCOL BOLUS PRN; Protocol PRN Reason: 40 unit/kg - Heparin Protocol Heparin Sodium (Porcine) (Heparin Sodium,Porcine 5,000 Unit/Ml Vial) 8,400 unit 80 unit/kg (8400 unit) IVPUSH PROTOCOL BOLUS PRN; Protocol PRN Reason: 80 unit/kg - Heparin Protocol Heparin Sodium/Sodium Chloride (Heparin Sodium,Porcine/1/2ns) 25,000 unit in 250 mls @ 0 mls/hr IVCONT .Q0M INGRID; Protocol Last Admin: 12/28/22 13:29 Dose: 14 units/kg/hr, 14.77 mls/hr Levothyroxine Sodium (Levothyroxine Sodium 100 Mcg Tablet) 100 mcg PO DAILY@0600 [facility] Omeprazole (Omeprazole 20 Mg Capsule.Dr) 20 mg PO DAILY@0630 [facility] Ondansetron HCl (Ondansetron Hcl 4 Mg/2 Ml Vial) 4 mg IVPUSH Q8H PRN PRN Reason: Nausea and Vomiting Pharmacy Consult (Consult Rx Perform Med Rec) 1 each MISCELLANE ONCE PRN PRN Reason: Consult order Sodium Bicarbonate (Sodium Bicarbonate 650 Mg Tablet) 650 mg PO BID [facility] Sodium Chloride (0.9 % Sodium Chloride Flush 3 Ml Syringe) 3 ml IVFLUSH QSHIFT [facility] Home Medications Medication Instructions Recorded Confirmed Last Taken Type albuterol sulfate 90 mcg/actuation 2 puff inhalation Q4-6H PRN 12/28/22 12/28/22 Unknown History aerosol inhaler Shortness Of Breath Or Wheezing allopurinol 100 mg tablet 100 mg PO DAILY 12/28/22 12/28/22 12/27/22 09:00 History cetirizine 10 mg tablet (Zyrtec) 10 mg PO DAILY 12/28/22 12/28/22 12/27/22 09:00 History citalopram 20 mg tablet 20 mg PO DAILY 12/28/22 12/28/22 12/27/22 09:00 History ezetimibe 10 mg tablet 10 mg PO DAILY 12/28/22 12/28/22 12/27/22 09:00 History famotidine 20 mg tablet 20 mg PO DAILY 12/28/22 12/28/22 12/27/22 09:00 History gabapentin 300 mg capsule 600 mg PO TID 12/28/22 12/28/22 12/27/22 09:00 History guaifenesin 400 mg tablet 800 mg PO TID congestion 12/28/22 12/28/22 12/27/22 09:00 History levothyroxine 100 mcg tablet 100 mcg PO DAILY@0600 12/28/22 12/28/22 12/27/22 06:00 History losartan 25 mg tablet 25 mg PO BEDTIME 12/28/22 12/28/22 12/26/22 History pantoprazole 40 mg tablet,delayed 40 mg PO DAILY@0630 12/28/22 12/28/22 12/27/22 06:30 History release pramipexole 0.25 mg tablet 0.25 mg PO BEDTIME 12/28/22 12/28/22 12/26/22 History sodium bicarbonate 325 mg tablet 650 mg PO BID 12/28/22 12/28/22 12/27/22 09:00 History Physical Exam Vital Signs: Vital Signs: Last Vital Signs Temp 98.7 F 12/28/22 04:45 Pulse 96 12/28/22 13:27 Resp 20 12/28/22 13:27 BP 101/53 L 12/28/22 13:27 Pulse Ox 96 12/28/22 09:56 O2 Del Method Nasal Cannula 12/28/22 09:56 O2 Flow Rate 1 12/28/22 09:56 BMI result Body Mass Index 42.5 Const: General: cooperative, alert, awake, in distress mild and respiratory and lethargic Nutritional Appearance: obese Orientation/consciousness: patient oriented x3 and lethargic HEENT: Head: Yes normocephalic and Yes atraumatic Neck: Neck: Yes trachea midline, Yes supple and Yes no JVD Resp: Auscultation: crackles bilateral (coarse) 1/[address] up Cardio: Jugular venous distension: no JVD Rate: regular rate Rhythm: regular rhythm Heart sounds: S1 normal heart sound present, S2 normal heart sound present, no click, no gallops and no murmurs GI: Auscultation: normal bowel sounds Skin: General skin exam: no rashes or lesions noted Neuro: General: patient oriented x3 and no focal motor deficits Extrem: General: No clubbing, No cyanosis and No edema Objective Labs and Meds 12/28/22 02:05 12/28/22 01:23 Lab results: Laboratory Results - last 24 hr 12/28/22 12/28/22 12/28/22 00:21 00:58 01:23 WBC RBC Hgb Hct MCV MCH MCHC RDW Plt Count MPV Immature Gran % (Auto) Neut % (Auto) Lymph % (Auto) [place] % (Auto) Eos % (Auto) Baso % (Auto) Lymph # (Auto) [place] # (Auto) Eos # (Auto) Baso # (Auto) Abs Immat Gran (auto) Absolute Neuts (auto) Absolute Nucleated RBC Nucleated RBC % (auto) ESR PT INR APTT D-Dimer High Sensitivty O2 Saturation ABG pH at Pt Temp ABG pCO2 at Pt Temp ABG pO2 at Pt Temp ABG HCO3 ABG Base Excess (Actual) VBG pH VBG pCO2 VBG pO2 VBG HCO3 VBG O2 Saturation VBG Base Excess Sodium 136 Potassium 4.7 Chloride 100 Carbon Dioxide 18 L Anion Gap 23 H BUN 60 H Creatinine 3.72 H Estim Creat Clear Calc 12.8 Estimated GFR 12 POC Glucose 104 Random Glucose 109 Lactic Acid Lactic Acid F/U @ 2Hr Lactic Acid F/U @ 4Hr Calcium 8.9 Magnesium 1.8 Ferritin Total Bilirubin 0.8 AST 43 H ALT 7 Alkaline Phosphatase 105 Lactate Dehydrogenase Troponin I High Sens C-Reactive Protein B-Natriuretic Peptide Total Protein 7.4 Albumin 3.7 TSH Respiratory Panel Green Adenovirus (Rapid PCR) B.pert (TEM-PCR) B.parapertussis DNA PCR C. pneumoniae DNA (PCR) Coronavirus OC43 (PCR) Coronavirus HKU1 (PCR) Coronavirus 229E (PCR) COVID-19 (ISAAK) Negative COVID-19 Clin Com See Note Coronavirus NL63 (PCR) Human Metapneumovir PCR Influenza A (RT-PCR) Influenza B (RT-PCR) M. pneumoniae (PCR) Parainfluenza 1 (PCR) Parainfluenza 2 (PCR) Parainfluenza 3 (PCR) Parainfluenza 4 (PCR) RSV (PCR) Entero/Rhino (PCR) SARS-CoV-2 RNA (RT-PCR) 12/28/22 12/28/22 12/28/22 01:23 01:26 02:03 WBC RBC Hgb Hct MCV MCH MCHC RDW Plt Count MPV Immature Gran % (Auto) Neut % (Auto) Lymph % (Auto) [place] % (Auto) Eos % (Auto) Baso % (Auto) Lymph # (Auto) [place] # (Auto) Eos # (Auto) Baso # (Auto) Abs Immat Gran (auto) Absolute Neuts (auto) Absolute Nucleated RBC Nucleated RBC % (auto) ESR PT INR APTT D-Dimer High Sensitivty O2 Saturation ABG pH at Pt Temp ABG pCO2 at Pt Temp ABG pO2 at Pt Temp ABG HCO3 ABG Base Excess (Actual) VBG pH 7.29 L VBG pCO2 53 VBG pO2 43 VBG HCO3 26 VBG O2 Saturation 64.0 VBG Base Excess -0.9 Sodium Potassium Chloride Carbon Dioxide Anion Gap BUN Creatinine Estim Creat Clear Calc Estimated GFR POC Glucose Random Glucose Lactic Acid 2.1 H* Lactic Acid F/U @ 2Hr Lactic Acid F/U @ 4Hr Calcium Magnesium Ferritin Total Bilirubin AST ALT Alkaline Phosphatase Lactate Dehydrogenase Troponin I High Sens 6428.7 H* C-Reactive Protein B-Natriuretic Peptide Total Protein Albumin TSH Respiratory Panel Green Adenovirus (Rapid PCR) B.pert (TEM-PCR) B.parapertussis DNA PCR C. pneumoniae DNA (PCR) Coronavirus OC43 (PCR) Coronavirus HKU1 (PCR) Coronavirus 229E (PCR) COVID-19 (ISAAK) COVID-19 Clin Com Coronavirus NL63 (PCR) Human Metapneumovir PCR Influenza A (RT-PCR) Influenza B (RT-PCR) M. pneumoniae (PCR) Parainfluenza 1 (PCR) Parainfluenza 2 (PCR) Parainfluenza 3 (PCR) Parainfluenza 4 (PCR) RSV (PCR) Entero/Rhino (PCR) SARS-CoV-2 RNA (RT-PCR) 12/28/22 12/28/22 12/28/22 02:05 02:07 04:19 WBC 11.1 H RBC 3.59 L Hgb 11.5 L Hct 35.4 L MCV 98.6 H MCH 32.0 MCHC 32.5 RDW 14.4 Plt Count 215 MPV 10.6 Immature Gran % (Auto) 0.4 Neut % (Auto) 78.2 H Lymph % (Auto) 15.5 L [place] % (Auto) 4.9 Eos % (Auto) 0.6 Baso % (Auto) 0.4 Lymph # (Auto) 1.7 [place] # (Auto) 0.5 Eos # (Auto) 0.1 Baso # (Auto) 0.0 Abs Immat Gran (auto) 0.05 H Absolute Neuts (auto) 8.7 H Absolute Nucleated RBC 0.000 Nucleated RBC % (auto) 0.0 ESR PT INR APTT D-Dimer High Sensitivty O2 Saturation ABG pH at Pt Temp ABG pCO2 at Pt Temp ABG pO2 at Pt Temp ABG HCO3 ABG Base Excess (Actual) VBG pH VBG pCO2 VBG pO2 VBG HCO3 VBG O2 Saturation VBG Base Excess Sodium Potassium Chloride Carbon Dioxide Anion Gap BUN Creatinine Estim Creat Clear Calc Estimated GFR POC Glucose Random Glucose Lactic Acid Lactic Acid F/U @ 2Hr 2.9 H* Lactic Acid F/U @ 4Hr Calcium Magnesium Ferritin Total Bilirubin AST ALT Alkaline Phosphatase Lactate Dehydrogenase Troponin I High Sens C-Reactive Protein B-Natriuretic Peptide 982 H Total Protein Albumin TSH Respiratory Panel Green Adenovirus (Rapid PCR) B.pert (TEM-PCR) B.parapertussis DNA PCR C. pneumoniae DNA (PCR) Coronavirus OC43 (PCR) Coronavirus HKU1 (PCR) Coronavirus 229E (PCR) COVID-19 (ISAAK) COVID-19 Clin Com Coronavirus NL63 (PCR) Human Metapneumovir PCR Influenza A (RT-PCR) Influenza B (RT-PCR) M. pneumoniae (PCR) Parainfluenza 1 (PCR) Parainfluenza 2 (PCR) Parainfluenza 3 (PCR) Parainfluenza 4 (PCR) RSV (PCR) Entero/Rhino (PCR) SARS-CoV-2 RNA (RT-PCR) 12/28/22 12/28/22 12/28/22 04:20 05:35 07:03 WBC RBC Hgb Hct MCV MCH MCHC RDW Plt Count MPV Immature Gran % (Auto) Neut % (Auto) Lymph % (Auto) [place] % (Auto) Eos % (Auto) Baso % (Auto) Lymph # (Auto) [place] # (Auto) Eos # (Auto) Baso # (Auto) Abs Immat Gran (auto) Absolute Neuts (auto) Absolute Nucleated RBC Nucleated RBC % (auto) ESR PT INR APTT D-Dimer High Sensitivty O2 Saturation 97.0 ABG pH at Pt Temp 7.31 L ABG pCO2 at Pt Temp 51 H ABG pO2 at Pt Temp 99 ABG HCO3 26 ABG Base Excess (Actual) -0.7 VBG pH VBG pCO2 VBG pO2 VBG HCO3 VBG O2 Saturation VBG Base Excess Sodium Potassium Chloride Carbon Dioxide Anion Gap BUN Creatinine Estim Creat Clear Calc Estimated GFR POC Glucose Random Glucose Lactic Acid Lactic Acid F/U @ 2Hr Lactic Acid F/U @ 4Hr 3.4 H* Calcium Magnesium Ferritin Total Bilirubin AST ALT Alkaline Phosphatase Lactate Dehydrogenase Troponin I High Sens 7704.9 H* C-Reactive Protein B-Natriuretic Peptide Total Protein Albumin TSH Respiratory Panel Green Adenovirus (Rapid PCR) B.pert (TEM-PCR) B.parapertussis DNA PCR C. pneumoniae DNA (PCR) Coronavirus OC43 (PCR) Coronavirus HKU1 (PCR) Coronavirus 229E (PCR) COVID-19 (ISAAK) COVID-19 Clin Com Coronavirus NL63 (PCR) Human Metapneumovir PCR Influenza A (RT-PCR) Influenza B (RT-PCR) M. pneumoniae (PCR) Parainfluenza 1 (PCR) Parainfluenza 2 (PCR) Parainfluenza 3 (PCR) Parainfluenza 4 (PCR) RSV (PCR) Entero/Rhino (PCR) SARS-CoV-2 RNA (RT-PCR) 12/28/22 12/28/22 12/28/22 07:03 07:03 07:03 WBC RBC Hgb Hct MCV MCH MCHC RDW Plt Count MPV Immature Gran % (Auto) Neut % (Auto) Lymph % (Auto) [place] % (Auto) Eos % (Auto) Baso % (Auto) Lymph # (Auto) [place] # (Auto) Eos # (Auto) Baso # (Auto) Abs Immat Gran (auto) Absolute Neuts (auto) Absolute Nucleated RBC Nucleated RBC % (auto) ESR 64 H PT INR APTT D-Dimer High Sensitivty 956 O2 Saturation ABG pH at Pt Temp ABG pCO2 at Pt Temp ABG pO2 at Pt Temp ABG HCO3 ABG Base Excess (Actual) VBG pH VBG pCO2 VBG pO2 VBG HCO3 VBG O2 Saturation VBG Base Excess Sodium Potassium Chloride Carbon Dioxide Anion Gap BUN Creatinine Estim Creat Clear Calc Estimated GFR POC Glucose Random Glucose Lactic Acid Lactic Acid F/U @ 2Hr Lactic Acid F/U @ 4Hr Calcium Magnesium Ferritin 97 Total Bilirubin AST ALT Alkaline Phosphatase Lactate Dehydrogenase 325 H Troponin I High Sens C-Reactive Protein 11.01 H B-Natriuretic Peptide Total Protein Albumin TSH 1.79 Respiratory Panel Green Adenovirus (Rapid PCR) B.pert (TEM-PCR) B.parapertussis DNA PCR C. pneumoniae DNA (PCR) Coronavirus OC43 (PCR) Coronavirus HKU1 (PCR) Coronavirus 229E (PCR) COVID-19 (ISAAK) COVID-19 Clin Com Coronavirus NL63 (PCR) Human Metapneumovir PCR Influenza A (RT-PCR) Influenza B (RT-PCR) M. pneumoniae (PCR) Parainfluenza 1 (PCR) Parainfluenza 2 (PCR) Parainfluenza 3 (PCR) Parainfluenza 4 (PCR) RSV (PCR) Entero/Rhino (PCR) SARS-CoV-2 RNA (RT-PCR) 12/28/22 12/28/22 12/28/22 08:47 11:52 11:52 WBC RBC Hgb Hct MCV MCH MCHC RDW Plt Count MPV Immature Gran % (Auto) Neut % (Auto) Lymph % (Auto) [place] % (Auto) Eos % (Auto) Baso % (Auto) Lymph # (Auto) [place] # (Auto) Eos # (Auto) Baso # (Auto) Abs Immat Gran (auto) Absolute Neuts (auto) Absolute Nucleated RBC Nucleated RBC % (auto) ESR PT 12.2 INR 1.1 APTT 22.8 L D-Dimer High Sensitivty O2 Saturation ABG pH at Pt Temp ABG pCO2 at Pt Temp ABG pO2 at Pt Temp ABG HCO3 ABG Base Excess (Actual) VBG pH VBG pCO2 VBG pO2 VBG HCO3 VBG O2 Saturation VBG Base Excess Sodium Potassium Chloride Carbon Dioxide Anion Gap BUN Creatinine Estim Creat Clear Calc Estimated GFR POC Glucose Random Glucose Lactic Acid Lactic Acid F/U @ 2Hr Lactic Acid F/U @ 4Hr Calcium Magnesium Ferritin Total Bilirubin AST ALT Alkaline Phosphatase Lactate Dehydrogenase Troponin I High Sens 5249.2 H* C-Reactive Protein B-Natriuretic Peptide Total Protein Albumin TSH Respiratory Panel Green See Note Adenovirus (Rapid PCR) Not Detected B.pert (TEM-PCR) Not Detected B.parapertussis DNA PCR Not Detected C. pneumoniae DNA (PCR) Not Detected Coronavirus OC43 (PCR) Not Detected Coronavirus HKU1 (PCR) Not Detected Coronavirus 229E (PCR) Not Detected COVID-19 (ISAAK) COVID-19 Clin Com Coronavirus NL63 (PCR) Not Detected Human Metapneumovir PCR Not Detected Influenza A (RT-PCR) Not Detected Influenza B (RT-PCR) Not Detected M. pneumoniae (PCR) Not Detected Parainfluenza 1 (PCR) Not Detected Parainfluenza 2 (PCR) Not Detected Parainfluenza 3 (PCR) Not Detected Parainfluenza 4 (PCR) Not Detected RSV (PCR) Not Detected Entero/Rhino (PCR) Not Detected SARS-CoV-2 RNA (RT-PCR) Not Detected Imaging Radiologist's impression: Impressions Chest X-Ray 12/28/22 00:38 IMPRESSION: Chronic pulmonary fibrosis redemonstrated with diffuse bronchial wall thickening. An acute on chronic bronchitis may be present. Assessment and Plan (1) Respiratory failure with hypoxia: Status: Acute Acute on chronic respiratory failure with acute onset chest pain and sudden shortness of breath is suggestive cardiogenic pulmonary edema in setting of acute CO. patient has improved with IV Lasix drip and supportive treatment. Currently chest pain-free. Respiratory status has improved and back to her baseline oxygen level. Given her multiple comorbidities including advanced age, chronic respiratory failure and chronic kidney disease we discussed about management plan for her acute CO and that will pursue conservative treatment plan for now. She is agreeable. Plan was also discussed with the son was agreeable. Continue IV heparin. Low-dose aspirin therapy. Add low-dose metoprolol 12 therapy. Cannot use statin therapy given her listed allergy in the chart. Obtain an echocardiogram tomorrow to assess for LV systolic and diastolic function. Will see how she does management medically and that will pursue invasive treatment if she has persistent recurrent chest pain syndrome or large wall motion abnormality with poor systolic function. Continue supportive care for her respiratory status. Will continue to follow with you Time Spent With Patient Time: Total time managing care of this patient today ____ minutes. Procedures Date of Service Date of Service: 12/28/22
[2022-12-28 16:47] LABS: Glucose, Whole Blood 221 mg/dL (60-115)
--- NOTE | 2022-12-28 17:05 | ECG_ITS ---
Test Reason : nstemi Blood Pressure : / mmHG Vent. Rate : 096 BPM Atrial Rate : 096 BPM P-R Int : 198 ms QRS Dur : 084 ms QT Int : 350 ms P-R-T Axes : 042 017 020 degrees QTc Int : 442 ms Sinus rhythm with Premature atrial complexes Inferior infarct , age undetermined Abnormal ECG No significant changes when compared with the previous EKG of 28 december 2022 Referred By: Lindsey Calderon Electronically Signed By:SANDRA AMBROCIO
[2022-12-28] MEDS: Insulin Lispro 100 UNIT/ML 3 ML VIAL SUBCUT (17:22)
[2022-12-28] MEDS: 0.9 % Sodium Chloride Flush 3 ML SYRINGE IVFLUSH (17:22)
[2022-12-28] MEDS: Pramipexole Di-HCL 0.25 MG TABLET PO (21:15)
[2022-12-28] MEDS: Metoprolol Tartrate 12.5 MG HALFTAB PO (21:15)
[2022-12-28] MEDS: Sodium Bicarbonate 650 MG TABLET PO (21:15)
[2022-12-28 21:19] LABS: Glucose, Whole Blood 131 mg/dL (60-115)
[2022-12-29] VITALS: BP 100/49; PULSE 76; RESP 20; TEMP 36.1; O2SAT 93
--- NOTE | 2022-12-29 | ECG_ITS ---
Test Reason : cp Blood Pressure : / mmHG Vent. Rate : 076 BPM Atrial Rate : 076 BPM P-R Int : 210 ms QRS Dur : 078 ms QT Int : 386 ms P-R-T Axes : 047 004 023 degrees QTc Int : 434 ms Sinus rhythm with 1st degree A-V block with Premature atrial complexes Possible Inferior infarct , age undetermined Abnormal ECG No significant changes when compared with the previous EKG of 28 december 2022 Referred By: Lindsey Calderon Electronically Signed By:SANDRA AMBROCIO
[2022-12-29] MEDS: Acetaminophen 325 MG TABLET 650 MG PO ×2 (00:33→08:55)
[2022-12-29 01:42] LABS: PTT Heparin Drip 71.4 SEC (53-77.9)
[2022-12-29 01:57] LABS: Troponin-I High Sensitivity 3145.5 ng/L (<3.5-17.0)
[2022-12-29 03:09] VITALS: BP 98/51; PULSE 77; RESP 20; TEMP 36.3; O2SAT 93
[2022-12-29] MEDS: traZODone HCL 25 MG HALFTAB PO (03:18)
--- NOTE | 2022-12-29 03:46 | PC.NURSE ---
At 0030 pt c/o chest pain just right of the sternum 7/10, worse when changing position and deep breathing, pt claimed its been in pain since the morning but previous RN said no c/o pain during her time, Vitals WNL. prn tylenol given, Dr. Calderon was notified, EKG done, tracing was forwarded to Dr. Calderon, Troonin level was drawn with critical result came at 0156 =3145.5, result was relayed to Dr. Calderon, also together with the troponin phleb melanie PTT_HD due at 3am without asking RN, PTT-HD =71.3, no change made on Heparin drip. At 0215 pt asked for a sleep med, Dr. Calderon was infirmed, Trazodone po given, encouraged to rest.
[2022-12-29] MEDS: Omeprazole 20 MG CAPSULE.DR PO (05:40)
[2022-12-29] MEDS: Levothyroxine Sodium 100 MCG TABLET PO (05:40)
[2022-12-29 06:32] LABS: MANUAL DIFF FLAG NO
[2022-12-29 06:42] LABS: Basophils Percent Auto 0.2 % (0-2); Hematocrit 29.6 % (37.0-47.0); Hemoglobin 9.8 g/dl (12.0-16.0); Imm Gran Abs Auto 0.05 X10*3/uL (0.00-0.03); Imm Gran Pct Auto 0.5 % (0.0-0.4); Lymphocytes Absolute Auto 0.9 X10*3/uL (1.2-4.9); Lymphocytes Percent Auto 8.4 % (20-40); Mean Corpuscular HGB Conc 33.1 g/dl (31.0-35.0); Mean Corpuscular Volume 96.7 fL (80.0-98.0); Mean Platelet Volume 10.9 fL (9.4-12.3); Monocytes Absolute Auto 0.6 X10*3/uL (0.1-1.2); Monocytes Percent Auto 5.3 % (2-11); Neutrophils Absolute Auto 8.8 x10*3/uL (2.0-8.3); Neutrophils Percent Auto 85.6 % (45-73); Platelet Count 169 X10*3/uL (160-400); Red Blood Count 3.06 X10*6/uL (4.20-5.50); Red Cell Distribution Width 14.5 % (11.0-16.0); White Blood Count 10.3 X10*3/uL (4.8-10.8)
[2022-12-29 06:53] LABS: Anion Gap 19 (12-20); Blood Urea Nitrogen 73 mg/dL (9-16); Calcium 8.9 mg/dL (8.4-10.2); Carbon Dioxide 20 mmol/L (22-29); Chloride 101 mmol/L (96-108); Creatinine Clr Calc Pharmacy 14.3; Estimated Glomerular Filt Rate 13; Glucose Random 125 mg/dL (60-115); Magnesium 1.9 mg/dL (1.6-2.6); Potassium 4.6 mmol/L (3.3-5.1); Sodium 135 mmol/L (135-145)
--- NOTE | 2022-12-29 07:00 | CA_ITS ---
Transthoracic Echocardiogram Patient (Last, First, Middle): Ludy Atkins, Gender: Female Date of : 1940 Age: 82 Procedure Date: 12/29/2022 Procedure Type: Transthoracic Echocardiogram Location: [facility] [place] Height: 157.48 cm Weight: 105.24 kg BSA: 2.04 m2 Heart Rate: 76 bpm BP: 98 / 51 mmHg Construction Administrator: SB Referring MD: Meliza JOHNSON Symptoms: nstemi Study Quality: Adequate w contrast ECG Rhythm: Sinus Conclusions: - The left ventricular systolic function is normal. The visually estimated ejection fraction is between 65-70%. - There is mild calcification of the aortic valve. - There is mild mitral annular calcification. Findings Procedure Information Contrast agent, definity, is being given per protocol without apparent complications. Left Ventricle Normal left ventricular cavity size. The left ventricular systolic function is normal. The visually estimated ejection fraction is between 65-70%. There is no evidence of regional wall motion abnormalities. E/E prime ratio is >15, consistent with elevated filling pressures. Evidence suggests grade I (mild) diastolic dysfunction. There is moderate septal asymmetric hypertrophy. Right Ventricle Normal right ventricular cavity size. There is mildly decreased right ventricular systolic function. Atria Both atria are normal in size. Aortic Valve There is a normal trileaflet aortic valve. There is mild calcification of the aortic valve. There is no aortic valve stenosis. There is no aortic valve regurgitation. Mitral Valve There is mild mitral annular calcification. There is trace mitral valve regurgitation. There is no mitral valve stenosis. Pulmonic Valve The pulmonic valve is likely normal. Tricuspid Valve Normal tricuspid valve structure. There is mild tricuspid valve regurgitation. There is no evidence of pulmonary hypertension. Great Vessels The asc aorta is normal in size. Venous The inferior vena cava was not well visualized. Pericardium/Pleural There is no evidence of pericardial effusion. Prior Study Comparison No significant change compared to prior study dated: 08/28/2021. Measurements 2D Linear Measurements IVSd: 1.48 0.6-0.9/0.6-1.0 cm LVIDd: 4.13 3.9-5.3/4.2-5.9 cm LVIDd Index: 2.02 2.4-3.2/2.2-3.1 cm/m2 LVIDs: 2.91 2.0-3.6 cm LVPWd: 0.95 0.7-1.1 cm LA Diam: 3.60 2.7-3.8/3.0-4.0 cm LAIDs Index: 1.76 1.5-2.3 cm/m2 LV Mass: 219.66 67-162/88-224 g LV Mass Index: 107.68 43-95/49-115 g/m2 LVOT Diam: 2.10 3.0+(-)1.3 cm 2D Systolic Function EF 4C: 67.50 >55% EF 2C: 75.60 >55% EF BiP: 71.60 >55% Mitral Valve MV VTI: 0.36 MV Pk Reji: 1.24 MV Mn Reji: 0.75 MV Pk Grad: 6.00 MV Mn Grad: 3.00 MV Pk E: 0.87 MV PK A: 1.12 MV Decel Time: 180.00 E/A: 0.80 E'Lateral: 6.53 E'Medial: 5.33 E/E' Med: 16.20 E/E' Lat: 13.20 PHT: 53.00 MVA PHT: 4.15 MVA Continuity: 2.79 Decel [place]: 4.82 Aortic Valve AoV Pk Reji: 1.81 AoV Mn Reji: 1.32 AoV VTI: 0.44 AoV Pk Grad: 13.00 Aov Mn Grad: 8.00 JACQUES Cont.VTI: 2.26 LVOT LVOT Pk Reji: 1.08 LVOT Mn Reji: 0.82 LVOT VTI: 0.29 LVOT Pk Grad: 5.00 LVOT Mn Grad: 3.00 LVOT Diam: 2.10 LVOT Area: 3.46 Diastolic Function MV Pk E: 0.87 MV Pk A: 1.12 E/A: 0.80 E'Medial: 5.33 E/E' Med: 16.20 E' Laterial: 6.53 E/E' Lat: 13.20 Right Ventricle TAPSE (mm): 15.10 TVS' Reji: 7.83 Tricuspid Valve TR Pk Reji: 2.70 TR Pk Grad: 29.00 RA Press: 3.00 RVSP: 32.00 Great Vessels Aorta Ao Asc: 3.20 2.1-3.4 cm Pulmonary Valve PV Pk Reji: 0.98 Peak PV Grad: 4.00 Updated in Other Vendor System with Status of Final Phuc Jones MD electronically signed on 12/29/2022 3:45:29 PM with status of Final
[2022-12-29 07:06] LABS: INTERNATIONAL NORM RATIO 1.2 (0.9-1.1); Prothrombin Time 13.3 SEC (10.0-13.1)
[2022-12-29 07:31] VITALS: BP 118/58; PULSE 79; RESP 18; TEMP 36.3; O2SAT 93
[2022-12-29 07:49] LABS: Glucose, Whole Blood 119 mg/dL (60-115)
--- NOTE | 2022-12-29 08:35 | P.PNIM_ITS ---
Subjective Subjective Date of Service: 12/29/22 Interval History: Seen in follow up for NSTEMI, DEVIN Interval History: Reports sharp right sided chest pain intermittently with movement. No sob, cough, retrosternal chest pressure, diaphoresis, n/v. Trops trending peaked 7700, trending down. RLS uncontrolled, gabapentin has been on hold d/t renal function. Creat trending down. Continues on heparin drip Review of Systems Review of Systems: Yes all other systems are reviewed and are negative Physical Exam Vital Signs: Vital Signs: Last Vital Signs Temp 97.4 F 12/29/22 07:31 Pulse 79 12/29/22 07:31 Resp 18 12/29/22 07:31 BP 118/58 L 12/29/22 07:31 Pulse Ox 93 12/29/22 07:31 O2 Del Method Nasal Cannula 12/29/22 07:31 O2 Flow Rate 1 12/29/22 07:31 BMI result Body Mass Index 42.5 Constitutional - Awake and Alert, No apparent distress Eyes - PERRLA, EOMI Cardiovascular - S1S2, RRR, No edema Respiratory - Normal lung expansion, Normal respiratory effort, No respiratory d istress, CTA bilaterally Extremities - no calf tenderness bilaterally, no swelling Skin - Warm/Dry Neurological - Alert & oriented x3 Psychological - Appropriate affect Objective Data Active Medications Acetaminophen (Acetaminophen 325 Mg Tablet) 650 mg PO Q6H PRN PRN Reason: Pain, Mild (Pain Scale 1-3) Last Admin: 12/29/22 00:33 Dose: 650 mg Documented By: CASTILM Albuterol/Ipratropium (Albuterol/Iprat 2.5/0.5mg 3 Ml Ampul.Neb) 3 ml INHALE Q6H PRN PRN Reason: shortnes of breath/wheezing Dextrose (Dextrose 50 % 25 Gm/50 Ml Syringe) 25 gm IVPUSH Q15M PRN; Protocol PRN Reason: per Hypoglycemia Standing Ord. Docusate Sodium (Docusate Sodium 100 Mg Capsule) 100 mg PO DAILY PRN PRN Reason: Constipation Famotidine (Famotidine 20 Mg Tablet) 20 mg PO DAILY INGRID Glucose (Glucose Gel 15 Gm Gel..Gram.) 15 gm PO Q15M PRN; Protocol PRN Reason: per Hypoglycemia Standing Ord. Heparin Sodium (Porcine) (Heparin Sodium,Porcine 5,000 Unit/Ml Vial) 4,200 unit 40 unit/kg (4200 unit) IVPUSH PROTOCOL BOLUS PRN; Protocol PRN Reason: 40 unit/kg - Heparin Protocol Heparin Sodium (Porcine) (Heparin Sodium,Porcine 5,000 Unit/Ml Vial) 8,400 unit 80 unit/kg (8400 unit) IVPUSH PROTOCOL BOLUS PRN; Protocol PRN Reason: 80 unit/kg - Heparin Protocol Heparin Sodium/Sodium Chloride (Heparin Sodium,Porcine/1/2ns) 25,000 unit in 250 mls @ 0 mls/hr IVCONT .Q0M [facility]; Protocol Last Titration: 12/29/22 02:52 Dose: 12 units/kg/hr, 12.66 mls/hr Documented By: ADDIE Co-signed By: DEVIN Insulin Human Lispro (Insulin Lispro 100 Unit/Ml 3 Ml Vial) 0 unit SUBCUT QIDACHS [facility]; Protocol Last Admin: 12/28/22 21:15 Dose: Not Given Documented By: ANU Non-Admin Reason: No Insulin Coverage Levothyroxine Sodium (Levothyroxine Sodium 100 Mcg Tablet) 100 mcg PO DAILY@0600 [facility] Last Admin: 12/29/22 05:40 Dose: 100 mcg Documented By: ADDIE Metoprolol Tartrate (Metoprolol Tartrate 12.5 Mg Halftab) 12.5 mg PO BID [facility]; Protocol Last Admin: 12/28/22 21:15 Dose: 12.5 mg Documented By: ANU Omeprazole (Omeprazole 20 Mg Capsule.) 20 mg PO DAILY@0630 [facility] Last Admin: 12/29/22 05:40 Dose: 20 mg Documented By: ADDIE Ondansetron HCl (Ondansetron Hcl 4 Mg/2 Ml Vial) 4 mg IVPUSH Q8H PRN PRN Reason: Nausea and Vomiting Pharmacy Consult (Consult Rx Perform Med Rec) 1 each MISCELLANE ONCE PRN PRN Reason: Consult order Pramipexole Dihydrochloride (Pramipexole Di-Hcl 0.25 Mg Tablet) 0.25 mg PO BEDTIME [facility] Last Admin: 12/28/22 21:15 Dose: 0.25 mg Documented By: ANU Sodium Bicarbonate (Sodium Bicarbonate 650 Mg Tablet) 650 mg PO BID [facility] Last Admin: 12/28/22 21:15 Dose: 650 mg Documented By: ANU Sodium Chloride (0.9 % Sodium Chloride Flush 3 Ml Syringe) 3 ml IVFLUSH QSHIFT [facility] Last Admin: 12/29/22 00:29 Dose: Not Given Documented By: ADDIE Non-Admin Reason: IV Running Labs 12/29/22 06:19 12/29/22 06:19 Labs: Laboratory Results - last 24 hr 12/28/22 12/28/22 12/28/22 08:47 11:52 11:52 MCV MCH MCHC RDW Plt Count MPV Immature Gran % (Auto) Neut % (Auto) Lymph % (Auto) [place] % (Auto) Eos % (Auto) Baso % (Auto) Lymph # (Auto) [place] # (Auto) Eos # (Auto) Baso # (Auto) Abs Immat Gran (auto) Absolute Neuts (auto) Absolute Nucleated RBC Nucleated RBC % (auto) PT 12.2 INR 1.1 APTT 22.8 L aPTT Heparin Protocol Anion Gap Estim Creat Clear Calc Estimated GFR POC Glucose Random Glucose Calcium Magnesium Troponin I High Sens 5249.2 H* Respiratory Panel Green See Note Adenovirus (Rapid PCR) Not Detected B.pert (TEM-PCR) Not Detected B.parapertussis DNA PCR Not Detected C. pneumoniae DNA (PCR) Not Detected Coronavirus OC43 (PCR) Not Detected Coronavirus HKU1 (PCR) Not Detected Coronavirus 229E (PCR) Not Detected Coronavirus NL63 (PCR) Not Detected Human Metapneumovir PCR Not Detected Influenza A (RT-PCR) Not Detected Influenza B (RT-PCR) Not Detected M. pneumoniae (PCR) Not Detected Parainfluenza 1 (PCR) Not Detected Parainfluenza 2 (PCR) Not Detected Parainfluenza 3 (PCR) Not Detected Parainfluenza 4 (PCR) Not Detected RSV (PCR) Not Detected Entero/Rhino (PCR) Not Detected SARS-CoV-2 RNA (RT-PCR) Not Detected 12/28/22 12/28/22 12/28/22 16:38 19:39 20:48 MCV MCH MCHC RDW Plt Count MPV Immature Gran % (Auto) Neut % (Auto) Lymph % (Auto) [place] % (Auto) Eos % (Auto) Baso % (Auto) Lymph # (Auto) [place] # (Auto) Eos # (Auto) Baso # (Auto) Abs Immat Gran (auto) Absolute Neuts (auto) Absolute Nucleated RBC Nucleated RBC % (auto) PT INR APTT aPTT Heparin Protocol 83.0 H Anion Gap Estim Creat Clear Calc Estimated GFR POC Glucose 221 H 131 H Random Glucose Calcium Magnesium Troponin I High Sens Respiratory Panel Green Adenovirus (Rapid PCR) B.pert (TEM-PCR) B.parapertussis DNA PCR C. pneumoniae DNA (PCR) Coronavirus OC43 (PCR) Coronavirus HKU1 (PCR) Coronavirus 229E (PCR) Coronavirus NL63 (PCR) Human Metapneumovir PCR Influenza A (RT-PCR) Influenza B (RT-PCR) M. pneumoniae (PCR) Parainfluenza 1 (PCR) Parainfluenza 2 (PCR) Parainfluenza 3 (PCR) Parainfluenza 4 (PCR) RSV (PCR) Entero/Rhino (PCR) SARS-CoV-2 RNA (RT-PCR) 12/29/22 12/29/22 12/29/22 01:24 01:24 06:19 MCV 96.7 MCH 32.0 MCHC 33.1 RDW 14.5 Plt Count 169 MPV 10.9 Immature Gran % (Auto) 0.5 H Neut % (Auto) 85.6 H Lymph % (Auto) 8.4 L [place] % (Auto) 5.3 Eos % (Auto) 0.0 Baso % (Auto) 0.2 Lymph # (Auto) 0.9 L [place] # (Auto) 0.6 Eos # (Auto) 0.0 Baso # (Auto) 0.0 Abs Immat Gran (auto) 0.05 H Absolute Neuts (auto) 8.8 H Absolute Nucleated RBC 0.000 Nucleated RBC % (auto) 0.0 PT INR APTT aPTT Heparin Protocol 71.4 Anion Gap Estim Creat Clear Calc Estimated GFR POC Glucose Random Glucose Calcium Magnesium Troponin I High Sens 3145.5 H* Respiratory Panel Green Adenovirus (Rapid PCR) B.pert (TEM-PCR) B.parapertussis DNA PCR C. pneumoniae DNA (PCR) Coronavirus OC43 (PCR) Coronavirus HKU1 (PCR) Coronavirus 229E (PCR) Coronavirus NL63 (PCR) Human Metapneumovir PCR Influenza A (RT-PCR) Influenza B (RT-PCR) M. pneumoniae (PCR) Parainfluenza 1 (PCR) Parainfluenza 2 (PCR) Parainfluenza 3 (PCR) Parainfluenza 4 (PCR) RSV (PCR) Entero/Rhino (PCR) SARS-CoV-2 RNA (RT-PCR) 12/29/22 12/29/22 12/29/22 06:19 06:19 07:41 MCV MCH MCHC RDW Plt Count MPV Immature Gran % (Auto) Neut % (Auto) Lymph % (Auto) [place] % (Auto) Eos % (Auto) Baso % (Auto) Lymph # (Auto) [place] # (Auto) Eos # (Auto) Baso # (Auto) Abs Immat Gran (auto) Absolute Neuts (auto) Absolute Nucleated RBC Nucleated RBC % (auto) PT 13.3 H INR 1.2 H APTT aPTT Heparin Protocol Anion Gap 19 Estim Creat Clear Calc 14.3 Estimated GFR 13 POC Glucose 119 H Random Glucose 125 H Calcium 8.9 Magnesium 1.9 Troponin I High Sens Respiratory Panel Green Adenovirus (Rapid PCR) B.pert (TEM-PCR) B.parapertussis DNA PCR C. pneumoniae DNA (PCR) Coronavirus OC43 (PCR) Coronavirus HKU1 (PCR) Coronavirus 229E (PCR) Coronavirus NL63 (PCR) Human Metapneumovir PCR Influenza A (RT-PCR) Influenza B (RT-PCR) M. pneumoniae (PCR) Parainfluenza 1 (PCR) Parainfluenza 2 (PCR) Parainfluenza 3 (PCR) Parainfluenza 4 (PCR) RSV (PCR) Entero/Rhino (PCR) SARS-CoV-2 RNA (RT-PCR) Microbiology Microbiology Results: Microbiology 12/28/22 02:04 Blood Culture - Preliminary Blood - Venous No growth after 24 hours. 12/28/22 01:23 Blood Culture - Preliminary Blood - Venous No growth after 24 hours. Assessment and Plan (1) Acute kidney injury superimposed on CKD: Status: Acute (2) NSTEMI (non-ST elevated myocardial infarction): Status: Acute Plan This is an 82-year-old female with past medical history of CKD4, ILD/pulmonary fibrosis / COPD on 2 L of p.r.n. oxygen, DM? who was brought to the emergency department for evaluation of altered mental status and dyspnea found to have hypoxia and elevated cardiac enzymes initially placed on BiPAP and planned for ICU admission but significantly improved and down to 1 L supplemental oxygen now being admitted to the medical floor for further management. Continues on heparin drip with mentation returned to baseline acute on chronic respiratory failure with hypoxia and hypercarbia- resolved likely secondary to CHF in the setting of acute MT received 1 dose IV lasix in ED with good effect weaned off bipap and on 1L NC (baseline) initially thought possible PE but given? CKD unable to have CTA. dimer around 10 00- Venous duplex negative NSTEMI cardiac enzymes elevated, peak 7704, now trending down AC with heparin drip ECHO pending cardiology consult pending will start low dose BB, allergy to statins, allergy to nsaids listed (epigastric pain)- refusing asa Continue conservative management per cardiology Acute CHF, probable diastolic last echo from 08/2021-? with preserved ejection fraction Repeat echo pending received 1 dose of IV lasix in ED will give additional dose of lasix this evening and then monitor fluid status toxic encephalopathy- resolved, mentation returned to baseline secondary to medications Resume gabapentin (renally dosed)-hold further sedating meds for now DEVIN on CKD4/metabolic acidosis Creatinine trending down continue sodium bicarb nephrology following follow BMP recent RUE fistula formation - no lab draws/vitals on right arm- no indication for dialysis at this time Renal diet elevated ESR/CRP likely reactive related to acute MT acute lactic acidosis no evidence of infection /sepsis likely secondary to hypoxia/breathing treatments ILD/pulmonary fibrosis has severe dz according to outptient pulm notes Chronci cough associated with ILD supplemental o2 prn prn breathing treatments Pleuritic right chest pain describes as sharp, nonradiating. Worse with inspiration and movement Repeat CXR no trauma lidocaine patch DM SSI, POCs diet controlled - low Hba1c ada diet HTN hold losartan for soft bp hypothyroidism Continue home Synthroid restless leg syndrome mirapex not indicated with current renal function. Resume gabapentin- renally dosed at 300mg daily morbid obesity BMI 42.5 may be contributing to respiratory issues weight loss encouraged dvt ppx - heparin code status - DNR/DNI Time Spent With Patient Time: Total time managing care of this patient today ____ minutes. Quality Stroke Does the patient have a stroke diagnosis?: No VTE Prior VTE?: No VTE Risk Level:: Medical - moderate - high VTE Device Contraindication: N/A - Device Ordered VTE Drug Contraindication: N/A - Med Ordered
[2022-12-29] MEDS: Famotidine 20 MG TABLET PO (08:38)
[2022-12-29] MEDS: Sodium Bicarbonate 650 MG TABLET PO ×2 (08:38→20:53)
[2022-12-29] MEDS: Metoprolol Tartrate 12.5 MG HALFTAB PO ×2 (08:39→20:53)
[2022-12-29] MEDS: Heparin Sodium,Porcine/1/2NS 25,000 UNIT/250 ML IV.SOLN 12.66 UNIT IVCONT (08:48)
--- NOTE | 2022-12-29 09:39 | MHC.CM.PN ---
CM ATTEMPTED TO MEET W/PT HOWEVER PT HAVING E[place], CM TO REVISIT AFTER ROUNDS.
[2022-12-29 09:42] LABS: PTT Heparin Drip 67.2 SEC (53-77.9)
--- NOTE | 2022-12-29 10:31 | PM.PNNEP ---
Subjective Subjective Date of Service: 12/29/22 Interval history: Events noted. All recent data reviewed Physical Exam Vital Signs: Vital Signs: Last Vital Signs Temp 97.4 F 12/29/22 07:31 Pulse 79 12/29/22 07:31 Resp 18 12/29/22 07:31 BP 118/58 L 12/29/22 07:31 Pulse Ox 93 12/29/22 07:31 O2 Del Method Nasal Cannula 12/29/22 07:31 O2 Flow Rate 1 12/29/22 07:31 BMI result Body Mass Index 42.5 Const: General: no acute distress Eyes: EOM: EOMs intact bilaterally Neck: Neck: Yes supple Resp: Auscultation: diminished lung sounds Cardio: Rate: regular rate GI: Palpation (GI): Soft to palpation Neuro: General: moves all extremities Objective Data Labs 12/29/22 06:19 12/29/22 06:19 Labs: Laboratory Results - last 24 hr 12/28/22 12/28/22 12/28/22 11:52 11:52 16:38 WBC RBC Hgb Hct MCV MCH MCHC RDW Plt Count MPV Immature Gran % (Auto) Neut % (Auto) Lymph % (Auto) [place] % (Auto) Eos % (Auto) Baso % (Auto) Lymph # (Auto) [place] # (Auto) Eos # (Auto) Baso # (Auto) Abs Immat Gran (auto) Absolute Neuts (auto) Absolute Nucleated RBC Nucleated RBC % (auto) PT 12.2 INR 1.1 APTT 22.8 L aPTT Heparin Protocol Sodium Potassium Chloride Carbon Dioxide Anion Gap BUN Creatinine Estim Creat Clear Calc Estimated GFR POC Glucose 221 H Random Glucose Calcium Magnesium Troponin I High Sens 5249.2 H* 12/28/22 12/28/22 12/29/22 19:39 20:48 01:24 WBC RBC Hgb Hct MCV MCH MCHC RDW Plt Count MPV Immature Gran % (Auto) Neut % (Auto) Lymph % (Auto) [place] % (Auto) Eos % (Auto) Baso % (Auto) Lymph # (Auto) [place] # (Auto) Eos # (Auto) Baso # (Auto) Abs Immat Gran (auto) Absolute Neuts (auto) Absolute Nucleated RBC Nucleated RBC % (auto) PT INR APTT aPTT Heparin Protocol 83.0 H 71.4 Sodium Potassium Chloride Carbon Dioxide Anion Gap BUN Creatinine Estim Creat Clear Calc Estimated GFR POC Glucose 131 H Random Glucose Calcium Magnesium Troponin I High Sens 12/29/22 12/29/22 12/29/22 01:24 06:19 06:19 WBC 10.3 RBC 3.06 L Hgb 9.8 L Hct 29.6 L MCV 96.7 MCH 32.0 MCHC 33.1 RDW 14.5 Plt Count 169 MPV 10.9 Immature Gran % (Auto) 0.5 H Neut % (Auto) 85.6 H Lymph % (Auto) 8.4 L [place] % (Auto) 5.3 Eos % (Auto) 0.0 Baso % (Auto) 0.2 Lymph # (Auto) 0.9 L [place] # (Auto) 0.6 Eos # (Auto) 0.0 Baso # (Auto) 0.0 Abs Immat Gran (auto) 0.05 H Absolute Neuts (auto) 8.8 H Absolute Nucleated RBC 0.000 Nucleated RBC % (auto) 0.0 PT 13.3 H INR 1.2 H APTT aPTT Heparin Protocol Sodium Potassium Chloride Carbon Dioxide Anion Gap BUN Creatinine Estim Creat Clear Calc Estimated GFR POC Glucose Random Glucose Calcium Magnesium Troponin I High Sens 3145.5 H* 12/29/22 12/29/22 12/29/22 06:19 07:41 09:12 WBC RBC Hgb Hct MCV MCH MCHC RDW Plt Count MPV Immature Gran % (Auto) Neut % (Auto) Lymph % (Auto) [place] % (Auto) Eos % (Auto) Baso % (Auto) Lymph # (Auto) [place] # (Auto) Eos # (Auto) Baso # (Auto) Abs Immat Gran (auto) Absolute Neuts (auto) Absolute Nucleated RBC Nucleated RBC % (auto) PT INR APTT aPTT Heparin Protocol 67.2 Sodium 135 Potassium 4.6 Chloride 101 Carbon Dioxide 20 L Anion Gap 19 BUN 73 H Creatinine 3.33 H Estim Creat Clear Calc 14.3 Estimated GFR 13 POC Glucose 119 H Random Glucose 125 H Calcium 8.9 Magnesium 1.9 Troponin I High Sens Microbiology Microbiology Results: Microbiology 12/28/22 09:55 Urine clean catch - Clean Catch Midstream Urine Culture - Final No growth. 12/28/22 02:04 Blood - Venous Blood Culture - Preliminary No growth after 24 hours. 12/28/22 01:23 Blood - Venous Blood Culture - Preliminary No growth after 24 hours. Procedures Date of Service Date of Service: 12/29/22 Assessment & Plan Assessment and plan (1) Acute kidney injury superimposed on CKD: Status: Acute Assessment and Plan: Ms. Ludy Atkins is an 82-year-old female with past medical history of CKD stage IV/V, HTN, T2DM, Hyperuricemia, hypothyroidism, and COPD/Bronchitis who presents 12/28/22 for AMS and dyspnea. DEVIN on CKD stage IV Had known about her CKD for years, she used to see Nephrology in [place], [facility] in [place]. Has a percutaneous [place] on 12/24/22 (Dr Guillermo[place] [facility] [place] No uremia; Serum creatinine better No indication for dialysis; Renal restricted diet Shall continue to hold ARB for now; C/W rest of current supportive care for now Progress Note: Quality Stroke Does the patient have a stroke diagnosis?: No
[2022-12-29] MEDS: Gabapentin 300 MG CAPSULE PO (11:00)
--- NOTE | 2022-12-29 11:36 | PM.PNCARD ---
Subjective Subjective Date of Service: 12/29/22 Interval history: Some right sided chest pain, but otherwise ok. Review of Systems Review of Systems Yes all other systems are reviewed and are negative Constitutional: Reports as per HPI and Reports no additional constitutional complaints Eyes: Reports as per HPI and Denies no additional eye complaints Denies system reviewed and no additional complaints, except as documented and Reports as per HPI Cardiovascular: Reports as per HPI, Reports no additional cardiovascular complaints, Denies acrocyanosis, Denies cool extremities, Reports chest pain, Denies leg edema, Denies lightheadedness, Denies palpitations and Denies dyspnea Respiratory: Reports as per HPI, Denies no additional respiratory complaints and Denies dyspnea Gastrointestinal: Reports as per HPI and Denies no additional gastrointestinal complaints Genitourinary: Reports as per HPI Musculoskeletal: Reports no additional musculoskeletal complaints and Reports as per HPI Skin/Breast: Reports system reviewed and no additional complaints, except as docu Reports system reviewed and no additional complaints, except as documented and Reports as per HPI Psychiatric: Reports no additional psychiatric complaints and Reports as per HPI Endocrine: Reports no additional endocrine complaints, Reports as per HPI and Denies palpitations Hematologic/Lymphatic: Reports no additional hematologic/lymphatic complaints and Reports as per HPI Allergic/Immunologic: Reports no additional allergic/immunologic complaints and Reports as per HPI Physical Exam Vital Signs: Last Vital Signs Temp 97.4 F 12/29/22 07:31 Pulse 79 12/29/22 07:31 Resp 18 12/29/22 07:31 BP 118/58 L 12/29/22 07:31 Pulse Ox 93 12/29/22 07:31 O2 Del Method Nasal Cannula 12/29/22 07:31 O2 Flow Rate 1 12/29/22 07:31 BMI result Body Mass Index 42.5 Const General: comfortable and no acute distress Orientation/consciousness: patient oriented x3 HEENT Other: Unremarkable Head: Yes normal to inspection Neck Neck: Yes normal visual inspection Chest Chest palpation & inspection: normal inspection of the chest Resp Auscultation: clear to auscultation bilaterally Cardio Palpation: normal PMI Heart sounds: S1 normal heart sound present, S2 normal heart sound present, no gallops, Murmur heart sound present systolic I/ and at the right sternal border and no rubs GI Palpation (GI): Soft to palpation Back/Spine/Pelvis Other: unremarkable Skin General skin exam: no rashes or lesions noted Neuro General: patient oriented x3 Extrem General: Yes normal to inspection Psych Mental Status: mental status grossly normal Objective Labs and Meds 12/29/22 06:19 12/29/22 06:19 Lab results: Laboratory Results - last 24 hr 12/28/22 12/28/22 12/28/22 11:52 11:52 16:38 WBC RBC Hgb Hct MCV MCH MCHC RDW Plt Count MPV Immature Gran % (Auto) Neut % (Auto) Lymph % (Auto) [place] % (Auto) Eos % (Auto) Baso % (Auto) Lymph # (Auto) [place] # (Auto) Eos # (Auto) Baso # (Auto) Abs Immat Gran (auto) Absolute Neuts (auto) Absolute Nucleated RBC Nucleated RBC % (auto) PT 12.2 INR 1.1 APTT 22.8 L aPTT Heparin Protocol Sodium Potassium Chloride Carbon Dioxide Anion Gap BUN Creatinine Estim Creat Clear Calc Estimated GFR POC Glucose 221 H Random Glucose Calcium Magnesium Troponin I High Sens 5249.2 H* 12/28/22 12/28/22 12/29/22 19:39 20:48 01:24 WBC RBC Hgb Hct MCV MCH MCHC RDW Plt Count MPV Immature Gran % (Auto) Neut % (Auto) Lymph % (Auto) [place] % (Auto) Eos % (Auto) Baso % (Auto) Lymph # (Auto) [place] # (Auto) Eos # (Auto) Baso # (Auto) Abs Immat Gran (auto) Absolute Neuts (auto) Absolute Nucleated RBC Nucleated RBC % (auto) PT INR APTT aPTT Heparin Protocol 83.0 H 71.4 Sodium Potassium Chloride Carbon Dioxide Anion Gap BUN Creatinine Estim Creat Clear Calc Estimated GFR POC Glucose 131 H Random Glucose Calcium Magnesium Troponin I High Sens 12/29/22 12/29/22 12/29/22 01:24 06:19 06:19 WBC 10.3 RBC 3.06 L Hgb 9.8 L Hct 29.6 L MCV 96.7 MCH 32.0 MCHC 33.1 RDW 14.5 Plt Count 169 MPV 10.9 Immature Gran % (Auto) 0.5 H Neut % (Auto) 85.6 H Lymph % (Auto) 8.4 L [place] % (Auto) 5.3 Eos % (Auto) 0.0 Baso % (Auto) 0.2 Lymph # (Auto) 0.9 L [place] # (Auto) 0.6 Eos # (Auto) 0.0 Baso # (Auto) 0.0 Abs Immat Gran (auto) 0.05 H Absolute Neuts (auto) 8.8 H Absolute Nucleated RBC 0.000 Nucleated RBC % (auto) 0.0 PT 13.3 H INR 1.2 H APTT aPTT Heparin Protocol Sodium Potassium Chloride Carbon Dioxide Anion Gap BUN Creatinine Estim Creat Clear Calc Estimated GFR POC Glucose Random Glucose Calcium Magnesium Troponin I High Sens 3145.5 H* 12/29/22 12/29/22 12/29/22 06:19 07:41 09:12 WBC RBC Hgb Hct MCV MCH MCHC RDW Plt Count MPV Immature Gran % (Auto) Neut % (Auto) Lymph % (Auto) [place] % (Auto) Eos % (Auto) Baso % (Auto) Lymph # (Auto) [place] # (Auto) Eos # (Auto) Baso # (Auto) Abs Immat Gran (auto) Absolute Neuts (auto) Absolute Nucleated RBC Nucleated RBC % (auto) PT INR APTT aPTT Heparin Protocol 67.2 Sodium 135 Potassium 4.6 Chloride 101 Carbon Dioxide 20 L Anion Gap 19 BUN 73 H Creatinine 3.33 H Estim Creat Clear Calc 14.3 Estimated GFR 13 POC Glucose 119 H Random Glucose 125 H Calcium 8.9 Magnesium 1.9 Troponin I High Sens Imaging Radiologist's impression: Impressions Venous Duplex 12/28/22 13:23 IMPRESSION: No DVT demonstrated in the bilateral lower extremity. Progress Note: A&P Assessment and plan (1) NSTEMI (non-ST elevated myocardial infarction): Status: Acute (2) Acute kidney injury superimposed on CKD: Status: Acute Plan Labs reviewed. BUN is 73. Creatinine is 3.33. High sensitivity troponins are quite high, peaking at 7700. Currently 3145. Chest x-ray shows chronic pulmonary fibrosis. Overall, multiple medical comorbidities, NSTEMI. Due to her comorbidities, conservative care has been planned based on initial consultation. May continue with a strategy for now. Will review the echocardiogram. Time Spent With Patient Time: Total time managing care of this patient today 45 minutes. This includes time spent in review of chart, laboratory data, imaging studies, review of telemetry, counseling patient, discussion with hospitalist, RN, documentation, coordination of care. Progress Note: Quality Stroke Does the patient have a stroke diagnosis?: No Procedures Date of Service Date of Service: 12/29/22
[2022-12-29 11:37] VITALS: BP 111/46; PULSE 65; RESP 17; TEMP 36.2; O2SAT 94
[2022-12-29 11:44] LABS: Glucose, Whole Blood 125 mg/dL (60-115)
--- NOTE | 2022-12-29 14:30 | MHC.CM.PN ---
IMM 12/29/22, EMR REVIEWED, PT ADMITTED W/NSTEMI AND DEVIN ON CKD, CM MET W/PT WHO REPORTS SHE LIVES W/HER DTR EMMANUEL, PT USES A CANE AND HAS HOME O2 W/JENNIFER, PT REPORTS SHE HAS SOMEONE COME IN MONTHLY TO CLIP HER TOENAILS, A NURSE WHO COMES ONCE EVERY 3MOS AND NO OTHER HOME SERVICES. PT VERIFIES PCP IS JOSE BENOIT X3 AND PT'S CHILDREN EMMANUEL AND NANI ARE ON HER HCP.
[2022-12-29] MEDS: Lidocaine 4 % Patch ADH..PATCH 1 PATCH TRANSDERMA (15:20)
[2022-12-29 15:25] VITALS: BP 101/51; PULSE 66; RESP 20; TEMP 36.1; O2SAT 93
[2022-12-29 16:11] LABS: Glucose, Whole Blood 122 mg/dL (60-115)
[2022-12-29] MEDS: 0.9 % Sodium Chloride Flush 3 ML SYRINGE IVFLUSH ×2 (16:24→20:54)
[2022-12-29 17:44] LABS: Hematocrit 32.3 % (37.0-47.0); Hemoglobin 10.8 g/dl (12.0-16.0)
[2022-12-29 19:28] VITALS: BP 137/64; PULSE 70; RESP 20; TEMP 36.3; O2SAT 92
[2022-12-29 20:43] LABS: Glucose, Whole Blood 122 mg/dL (60-115)
[2022-12-29] MEDS: Pramipexole Di-HCL 0.25 MG TABLET PO (20:53)
--- NOTE | 2022-12-29 21:02 | PC.NURSE ---
Assumed care at 11 AM. Patient alert and oriented. Had some right sided chest pain, sharp, 6/10 nonradiating, worse on inspiration and position change leaning forward. Tylenol with modest effect, PA notified. lidocaine patch ordered and applied, Patient's left wrist iV was oozing bloody exudate, PA notified, no other IV access at time, unable to obtain access, numerous expert IV RNs consulted unable to provide access, PA notified, heparing gtt held at 16:44, MD to bedside placed 20 G IV to left upper arm, heparin gtt restarted about 17:55 as per MD specific instructions advised by pharmacy to restart at same doserate of 12, and recheck PTT=HD to remain at 6 am 12/30. No SOB. Bruising continues to left breast and to left entire arm down to hand dorsum and PA seen. Patient with lung bases with fine crackles and chronic cough, 1+ edema to ankles.
[2022-12-30] VITALS (7 sets, daily range): BP systolic 105–138; BP diastolic 49–63; PULSE 61–72; RESP 18–20; TEMP 36.1–36.9; O2SAT 92–99
[2022-12-30] MEDS: Heparin Sodium,Porcine/1/2NS 25,000 UNIT/250 ML IV.SOLN 12.66 UNIT IVCONT (06:12)
[2022-12-30] MEDS: Omeprazole 20 MG CAPSULE.DR PO (06:15)
[2022-12-30] MEDS: Levothyroxine Sodium 100 MCG TABLET PO (06:15)
[2022-12-30 06:55] LABS: MANUAL DIFF FLAG NO
[2022-12-30 07:06] LABS: PTT Heparin Drip 54.5 SEC (53-77.9)
[2022-12-30 07:15] LABS: Anion Gap 17 (12-20); Blood Urea Nitrogen 79 mg/dL (9-16); Calcium 8.6 mg/dL (8.4-10.2); Carbon Dioxide 22 mmol/L (22-29); Chloride 103 mmol/L (96-108); Creatinine Clr Calc Pharmacy 16.7; Estimated Glomerular Filt Rate 16; Glucose Random 112 mg/dL (60-115); Potassium 4.2 mmol/L (3.3-5.1); Sodium 138 mmol/L (135-145)
[2022-12-30 07:17] LABS: Basophils Percent Auto 0.1 % (0-2); Eosinophils Percent Auto 0.1 % (0-4); Hematocrit 30.4 % (37.0-47.0); Imm Gran Abs Auto 0.05 X10*3/uL (0.00-0.03); Imm Gran Pct Auto 0.5 % (0.0-0.4); Lymphocytes Absolute Auto 1.3 X10*3/uL (1.2-4.9); Lymphocytes Percent Auto 13.7 % (20-40); Mean Corpuscular HGB Conc 32.9 g/dl (31.0-35.0); Mean Corpuscular Hemoglobin 32.7 pg (27.0-33.0); Mean Corpuscular Volume 99.3 fL (80.0-98.0); Mean Platelet Volume 11.4 fL (9.4-12.3); Monocytes Absolute Auto 0.6 X10*3/uL (0.1-1.2); Monocytes Percent Auto 6.7 % (2-11); Neutrophils Absolute Auto 7.5 x10*3/uL (2.0-8.3); Neutrophils Percent Auto 78.9 % (45-73); Platelet Count 195 X10*3/uL (160-400); Red Blood Count 3.06 X10*6/uL (4.20-5.50); Red Cell Distribution Width 14.7 % (11.0-16.0); White Blood Count 9.4 X10*3/uL (4.8-10.8)
[2022-12-30 07:42] LABS: Glucose, Whole Blood 112 mg/dL (60-115)
[2022-12-30 08:18] LABS: PTT Heparin Drip 53.8 SEC (53-77.9)
[2022-12-30] MEDS: Aspirin Enteric Coated 81 MG TABLET.DR PO (08:31)
[2022-12-30] MEDS: Gabapentin 300 MG CAPSULE PO (08:31)
[2022-12-30] MEDS: Metoprolol Tartrate 12.5 MG HALFTAB PO ×2 (08:31→21:07)
[2022-12-30] MEDS: Famotidine 20 MG TABLET PO (08:31)
[2022-12-30] MEDS: Sodium Bicarbonate 650 MG TABLET PO ×2 (08:31→21:07)
--- NOTE | 2022-12-30 10:11 | PM.PNCARD ---
Subjective Subjective Date of Service: 12/30/22 Interval history: She states she is comfortable. No further chest pains. Review of Systems Review of Systems Yes all other systems are reviewed and are negative Constitutional: Reports as per HPI and Reports no additional constitutional complaints Eyes: Reports as per HPI and Denies no additional eye complaints Denies system reviewed and no additional complaints, except as documented and Reports as per HPI Cardiovascular: Reports as per HPI, Reports no additional cardiovascular complaints, Denies acrocyanosis, Denies cool extremities, Denies chest pain, Denies leg edema, Denies lightheadedness, Denies palpitations and Denies dyspnea Respiratory: Reports as per HPI, Denies no additional respiratory complaints and Denies dyspnea Gastrointestinal: Reports as per HPI and Denies no additional gastrointestinal complaints Genitourinary: Reports as per HPI Musculoskeletal: Reports no additional musculoskeletal complaints and Reports as per HPI Skin/Breast: Reports system reviewed and no additional complaints, except as docu Reports system reviewed and no additional complaints, except as documented and Reports as per HPI Psychiatric: Reports no additional psychiatric complaints and Reports as per HPI Endocrine: Reports no additional endocrine complaints, Reports as per HPI and Denies palpitations Hematologic/Lymphatic: Reports no additional hematologic/lymphatic complaints and Reports as per HPI Allergic/Immunologic: Reports no additional allergic/immunologic complaints and Reports as per HPI Physical Exam Vital Signs: Last Vital Signs Temp 98.4 F 12/30/22 07:06 Pulse 70 12/30/22 07:06 Resp 20 12/30/22 07:06 BP 113/56 L 12/30/22 07:06 Pulse Ox 97 12/30/22 07:06 O2 Del Method Nasal Cannula 12/30/22 07:06 O2 Flow Rate 2 12/30/22 07:06 BMI result Body Mass Index 42.5 Const General: comfortable and no acute distress Orientation/consciousness: patient oriented x3 HEENT Other: Unremarkable Head: Yes normal to inspection Neck Neck: Yes normal visual inspection Chest Chest palpation & inspection: normal inspection of the chest Resp Auscultation: clear to auscultation bilaterally Cardio Palpation: normal PMI Heart sounds: S1 normal heart sound present, S2 normal heart sound present, no gallops, Murmur heart sound present systolic I/ and at the right sternal border and no rubs GI Palpation (GI): Soft to palpation Back/Spine/Pelvis Other: unremarkable Skin General skin exam: no rashes or lesions noted Neuro General: patient oriented x3 Extrem General: Yes normal to inspection Psych Mental Status: mental status grossly normal Objective Labs and Meds 12/30/22 06:41 12/30/22 06:41 Lab results: Laboratory Results - last 24 hr 12/29/22 12/29/22 12/29/22 11:40 16:08 17:19 WBC RBC Hgb 10.8 L Hct 32.3 L MCV MCH MCHC RDW Plt Count MPV Immature Gran % (Auto) Neut % (Auto) Lymph % (Auto) [place] % (Auto) Eos % (Auto) Baso % (Auto) Lymph # (Auto) [place] # (Auto) Eos # (Auto) Baso # (Auto) Abs Immat Gran (auto) Absolute Neuts (auto) Absolute Nucleated RBC Nucleated RBC % (auto) aPTT Heparin Protocol Sodium Potassium Chloride Carbon Dioxide Anion Gap BUN Creatinine Estim Creat Clear Calc Estimated GFR POC Glucose 125 H 122 H Random Glucose Calcium 12/29/22 12/30/22 12/30/22 20:36 06:41 06:41 WBC 9.4 RBC 3.06 L Hgb 10.0 L Hct 30.4 L MCV 99.3 H MCH 32.7 MCHC 32.9 RDW 14.7 Plt Count 195 MPV 11.4 Immature Gran % (Auto) 0.5 H Neut % (Auto) 78.9 H Lymph % (Auto) 13.7 L [place] % (Auto) 6.7 Eos % (Auto) 0.1 Baso % (Auto) 0.1 Lymph # (Auto) 1.3 [place] # (Auto) 0.6 Eos # (Auto) 0.0 Baso # (Auto) 0.0 Abs Immat Gran (auto) 0.05 H Absolute Neuts (auto) 7.5 Absolute Nucleated RBC 0.000 Nucleated RBC % (auto) 0.0 aPTT Heparin Protocol 54.5 Sodium Potassium Chloride Carbon Dioxide Anion Gap BUN Creatinine Estim Creat Clear Calc Estimated GFR POC Glucose 122 H Random Glucose Calcium 12/30/22 12/30/22 12/30/22 06:41 07:11 08:02 WBC RBC Hgb Hct MCV MCH MCHC RDW Plt Count MPV Immature Gran % (Auto) Neut % (Auto) Lymph % (Auto) [place] % (Auto) Eos % (Auto) Baso % (Auto) Lymph # (Auto) [place] # (Auto) Eos # (Auto) Baso # (Auto) Abs Immat Gran (auto) Absolute Neuts (auto) Absolute Nucleated RBC Nucleated RBC % (auto) aPTT Heparin Protocol 53.8 Sodium 138 Potassium 4.2 Chloride 103 Carbon Dioxide 22 Anion Gap 17 BUN 79 H Creatinine 2.86 H Estim Creat Clear Calc 16.7 Estimated GFR 16 POC Glucose 112 Random Glucose 112 Calcium 8.6 Imaging Radiologist's impression: Impressions Chest X-Ray 12/29/22 15:21 IMPRESSION: Slight interval improvement in bibasilar opacities compared with the prior study. Progress Note: A&P Assessment and plan (1) NSTEMI (non-ST elevated myocardial infarction): Status: Acute (2) Acute kidney injury superimposed on CKD: Status: Acute Plan Multiple medical comorbidities, advanced renal dysfunction, non ST-elevation myocardial infarction, pulmonary fibrosis. Based on initial discussion, she has been treated conservatively. There is a high risk of contrast induced nephropathy/hemodialysis with catheterization. Again discussed about this, and she is also leading towards conservative care. Discussed with daughter Evie over the phone and she feels the same. IV heparin for 48 hours. Beta-blockers. Aspirin. If able, statins but it seems she has myalgias from before. Time Spent With Patient Time: Total time managing care of this patient today ____ minutes. Progress Note: Quality Stroke Does the patient have a stroke diagnosis?: No Procedures Date of Service Date of Service: 12/30/22
--- NOTE | 2022-12-30 10:23 | PM.PNNEP ---
Subjective Subjective Date of Service: 12/30/22 Interval history: Seen AM. Feels better. Renal function improving Physical Exam Vital Signs: Vital Signs: Last Vital Signs Temp 98.4 F 12/30/22 07:06 Pulse 70 12/30/22 07:06 Resp 20 12/30/22 07:06 BP 113/56 L 12/30/22 07:06 Pulse Ox 97 12/30/22 07:06 O2 Del Method Nasal Cannula 12/30/22 07:06 O2 Flow Rate 2 12/30/22 07:06 BMI result Body Mass Index 42.5 Const: General: no acute distress Orientation/consciousness: patient oriented x3 Eyes: EOM: EOMs intact bilaterally Neck: Neck: Yes supple Resp: Auscultation: diminished lung sounds Cardio: Rate: regular rate GI: Palpation (GI): Soft to palpation Neuro: General: patient oriented x3 and moves all extremities Objective Data Labs 12/30/22 06:41 12/30/22 06:41 Labs: Laboratory Results - last 24 hr 12/29/22 12/29/22 12/29/22 11:40 16:08 17:19 WBC RBC Hgb 10.8 L Hct 32.3 L MCV MCH MCHC RDW Plt Count MPV Immature Gran % (Auto) Neut % (Auto) Lymph % (Auto) [place] % (Auto) Eos % (Auto) Baso % (Auto) Lymph # (Auto) [place] # (Auto) Eos # (Auto) Baso # (Auto) Abs Immat Gran (auto) Absolute Neuts (auto) Absolute Nucleated RBC Nucleated RBC % (auto) aPTT Heparin Protocol Sodium Potassium Chloride Carbon Dioxide Anion Gap BUN Creatinine Estim Creat Clear Calc Estimated GFR POC Glucose 125 H 122 H Random Glucose Calcium 12/29/22 12/30/22 12/30/22 20:36 06:41 06:41 WBC 9.4 RBC 3.06 L Hgb 10.0 L Hct 30.4 L MCV 99.3 H MCH 32.7 MCHC 32.9 RDW 14.7 Plt Count 195 MPV 11.4 Immature Gran % (Auto) 0.5 H Neut % (Auto) 78.9 H Lymph % (Auto) 13.[address] [place] % (Auto) 6.7 Eos % (Auto) 0.1 Baso % (Auto) 0.1 Lymph # (Auto) 1.3 [place] # (Auto) 0.6 Eos # (Auto) 0.0 Baso # (Auto) 0.0 Abs Immat Gran (auto) 0.05 H Absolute Neuts (auto) 7.5 Absolute Nucleated RBC 0.000 Nucleated RBC % (auto) 0.0 aPTT Heparin Protocol 54.5 Sodium Potassium Chloride Carbon Dioxide Anion Gap BUN Creatinine Estim Creat Clear Calc Estimated GFR POC Glucose 122 H Random Glucose Calcium 12/30/22 12/30/22 12/30/22 06:41 07:11 08:02 WBC RBC Hgb Hct MCV MCH MCHC RDW Plt Count MPV Immature Gran % (Auto) Neut % (Auto) Lymph % (Auto) [place] % (Auto) Eos % (Auto) Baso % (Auto) Lymph # (Auto) [place] # (Auto) Eos # (Auto) Baso # (Auto) Abs Immat Gran (auto) Absolute Neuts (auto) Absolute Nucleated RBC Nucleated RBC % (auto) aPTT Heparin Protocol 53.8 Sodium 138 Potassium 4.2 Chloride 103 Carbon Dioxide 22 Anion Gap 17 BUN 79 H Creatinine 2.86 H Estim Creat Clear Calc 16.7 Estimated GFR 16 POC Glucose 112 Random Glucose 112 Calcium 8.6 Microbiology Microbiology Results: Microbiology 12/28/22 02:04 Blood - Venous Blood Culture - Preliminary No growth after 48 hours. 12/28/22 01:23 Blood - Venous Blood Culture - Preliminary No growth after 48 hours. 12/28/22 09:55 Urine clean catch - Clean Catch Midstream Urine Culture - Final No growth. Procedures Date of Service Date of Service: 12/30/22 Assessment & Plan Assessment and plan (1) Acute kidney injury superimposed on CKD: Status: Acute Assessment and Plan: DEVIN due to compromise in renal perfusion Has CKD 4 at baseline; Has a functioning AVF UO good; ARB on hold; Renal function better No indication for HD; C/W current management Progress Note: Quality Stroke Does the patient have a stroke diagnosis?: No
[2022-12-30] MEDS: guaiFENesin 200 MG/10 ML 10 ML LIQUID PO (10:27)
[2022-12-30] MEDS: Docusate Sodium 100 MG CAPSULE PO (10:27)
[2022-12-30 11:07] LABS: Glucose, Whole Blood 102 mg/dL (60-115)
[2022-12-30] MEDS: Atorvastatin Calcium 20 MG TABLET PO (11:30)
--- NOTE | 2022-12-30 13:24 | HO.PM.IMPN ---
Subjective Subjective Date of Service: 12/30/22 Interval History: Seen in follow up for NSTEMI, DEVIN Interval History: Chest pain resolved. No SOB. Continues on heparin drip- significant bruising, H/H stable. Continues with chronic nonproductive cough Review of Systems Review of Systems: Yes all other systems are reviewed and are negative Physical Exam Vital Signs: Vital Signs: Last Vital Signs Temp 97.4 F 12/30/22 10:49 Pulse 61 12/30/22 10:49 Resp 20 12/30/22 10:49 BP 118/56 L 12/30/22 10:49 Pulse Ox 99 12/30/22 10:49 O2 Del Method Nasal Cannula 12/30/22 10:49 O2 Flow Rate 2 12/30/22 10:49 BMI result Body Mass Index 42.5 Constitutional - Awake and Alert, No apparent distress Eyes - PERRLA, EOMI Cardiovascular - S1S2, RRR, No edema Respiratory - Normal lung expansion, Normal respiratory effort, No respiratory distress, CTA bilaterally Extremities - no calf tenderness bilaterally, no swelling Skin - Warm/Dry Neurological - Alert & oriented x3 Psychological - Appropriate affect Objective Data Active Medications Acetaminophen (Acetaminophen 325 Mg Tablet) 650 mg PO Q6H PRN PRN Reason: Pain, Mild (Pain Scale 1-3) Last Admin: 12/29/22 08:55 Dose: 650 mg Documented By: SAMUEL Albuterol/Ipratropium (Albuterol/Iprat 2.5/0.5mg 3 Ml Ampul.Neb) 3 ml INHALE Q6H PRN PRN Reason: shortnes of breath/wheezing Aspirin (Aspirin Enteric Coated 81 Mg Tablet.Dr) 81 mg PO DAILY [facility] Last Admin: 12/30/22 08:31 Dose: 81 mg Documented By: BARBARA Atorvastatin Calcium (Atorvastatin Calcium 20 Mg Tablet) 20 mg PO DAILY [facility] Last Admin: 12/30/22 11:30 Dose: 20 mg Documented By: CARYL Dextrose (Dextrose 50 % 25 Gm/50 Ml Syringe) 25 gm IVPUSH Q15M PRN; Protocol PRN Reason: per Hypoglycemia Standing Ord. Docusate Sodium (Docusate Sodium 100 Mg Capsule) 100 mg PO DAILY PRN PRN Reason: Constipation Last Admin: 12/30/22 10:27 Dose: 100 mg Documented By: CARYL Famotidine (Famotidine 20 Mg Tablet) 20 mg PO DAILY [facility] Last Admin: 12/30/22 08:31 Dose: 20 mg Documented By: BARBARA Gabapentin (Gabapentin 300 Mg Capsule) 300 mg PO DAILY [facility] Last Admin: 12/30/22 08:31 Dose: 300 mg Documented By: BARBARA Glucose (Glucose Gel 15 Gm Gel..Gram.) 15 gm PO Q15M PRN; Protocol PRN Reason: per Hypoglycemia Standing Ord. Guaifenesin (Guaifenesin 200 Mg/10 Ml 10 Ml Liquid) 10 ml PO Q6H [facility] Last Admin: 12/30/22 10:27 Dose: 10 ml Documented By: CARYL Heparin Sodium (Porcine) (Heparin Sodium,Porcine 5,000 Unit/Ml Vial) 4,200 unit 40 unit/kg (4200 unit) IVPUSH PROTOCOL BOLUS PRN; Protocol PRN Reason: 40 unit/kg - Heparin Protocol Heparin Sodium (Porcine) (Heparin Sodium,Porcine 5,000 Unit/Ml Vial) 8,400 unit 80 unit/kg (8400 unit) IVPUSH PROTOCOL BOLUS PRN; Protocol PRN Reason: 80 unit/kg - Heparin Protocol Heparin Sodium/Sodium Chloride (Heparin Sodium,Porcine/1/2ns) 25,000 unit in 250 mls @ 0 mls/hr IVCONT .Q0M [facility]; Protocol Last Titration: 12/30/22 07:17 Dose: 12 units/kg/hr, 12.66 mls/hr Documented By: DEJUAN Co-signed By: CARYL Insulin Human Lispro (Insulin Lispro 100 Unit/Ml 3 Ml Vial) 0 unit SUBCUT QIDACHS [facility]; Protocol Last Admin: 12/30/22 11:08 Dose: Not Given Documented By: CARYL Non-Admin Reason: No Insulin Coverage Levothyroxine Sodium (Levothyroxine Sodium 100 Mcg Tablet) 100 mcg PO DAILY@0600 [facility] Last Admin: 12/30/22 06:15 Dose: 100 mcg Documented By: DEJUAN Lidocaine (Lidocaine 4 % Patch Adh..Patch) 1 patch TRANSDERMA DAILY [facility]; Protocol Last Admin: 12/30/22 08:32 Dose: Not Given Documented By: BARBARA Non-Admin Reason: per pt not needed at this time Metoprolol Tartrate (Metoprolol Tartrate 12.5 Mg Halftab) 12.5 mg PO BID [facility]; Protocol Last Admin: 12/30/22 08:31 Dose: 12.5 mg Documented By: BARBARA Omeprazole (Omeprazole 20 Mg Capsule.Dr) 20 mg PO DAILY@0630 [facility] Last Admin: 12/30/22 06:15 Dose: 20 mg Documented By: DEJUAN Ondansetron HCl (Ondansetron Hcl 4 Mg/2 Ml Vial) 4 mg IVPUSH Q8H PRN PRN Reason: Nausea and Vomiting Pharmacy Consult (Consult Rx Perform Med Rec) 1 each MISCELLANE ONCE PRN PRN Reason: Consult order Sodium Bicarbonate (Sodium Bicarbonate 650 Mg Tablet) 650 mg PO BID [facility] Last Admin: 12/30/22 08:31 Dose: 650 mg Documented By: BARBARA Sodium Chloride (0.9 % Sodium Chloride Flush 3 Ml Syringe) 3 ml IVFLUSH QSHIFT [facility] Last Admin: 12/30/22 08:33 Dose: Not Given Documented By: BARBARA Non-Admin Reason: IV Running Labs 12/30/22 06:41 12/30/22 06:41 Labs: Laboratory Results - last 24 hr 12/29/22 12/29/22 12/30/22 16:08 20:36 06:41 MCV MCH MCHC RDW Plt Count MPV Immature Gran % (Auto) Neut % (Auto) Lymph % (Auto) Mcdonough % (Auto) Eos % (Auto) Baso % (Auto) Lymph # (Auto) Mcdonough # (Auto) Eos # (Auto) Baso # (Auto) Abs Immat Gran (auto) Absolute Neuts (auto) Absolute Nucleated RBC Nucleated RBC % (auto) aPTT Heparin Protocol 54.5 Anion Gap Estim Creat Clear Calc Estimated GFR POC Glucose 122 H 122 H Random Glucose Calcium 12/30/22 12/30/22 12/30/22 06:41 06:41 07:11 MCV 99.3 H MCH 32.7 MCHC 32.9 RDW 14.7 Plt Count 195 MPV 11.4 Immature Gran % (Auto) 0.5 H Neut % (Auto) 78.9 H Lymph % (Auto) 13.7 L Mcdonough % (Auto) 6.7 Eos % (Auto) 0.1 Baso % (Auto) 0.1 Lymph # (Auto) 1.3 Mcdonough # (Auto) 0.6 Eos # (Auto) 0.0 Baso # (Auto) 0.0 Abs Immat Gran (auto) 0.05 H Absolute Neuts (auto) 7.5 Absolute Nucleated RBC 0.000 Nucleated RBC % (auto) 0.0 aPTT Heparin Protocol Anion Gap 17 Estim Creat Clear Calc 16.7 Estimated GFR 16 POC Glucose 112 Random Glucose 112 Calcium 8.6 12/30/22 12/30/22 08:02 10:49 MCV MCH MCHC RDW Plt Count MPV Immature Gran % (Auto) Neut % (Auto) Lymph % (Auto) Mcdonough % (Auto) Eos % (Auto) Baso % (Auto) Lymph # (Auto) Mcdonough # (Auto) Eos # (Auto) Baso # (Auto) Abs Immat Gran (auto) Absolute Neuts (auto) Absolute Nucleated RBC Nucleated RBC % (auto) aPTT Heparin Protocol 53.8 Anion Gap Estim Creat Clear Calc Estimated GFR POC Glucose 102 Random Glucose Calcium Microbiology Microbiology Results: Microbiology 12/28/22 02:04 Blood Culture - Preliminary Blood - Venous No growth after 48 hours. 12/28/22 01:23 Blood Culture - Preliminary Blood - Venous No growth after 48 hours. 12/28/22 09:55 Urine Culture - Final Urine clean catch - Clean Catch Midstream No growth. Assessment and Plan (1) Acute kidney injury superimposed on CKD: Status: Acute (2) NSTEMI (non-ST elevated myocardial infarction): Status: Acute Plan This is an 82-year-old female with past medical history of CKD4, ILD/pulmonary fibrosis / COPD on 2 L of p.r.n. oxygen, DM? who was brought to the emergency department for evaluation of altered mental status and dyspnea found to have hypoxia and elevated cardiac enzymes initially placed on BiPAP and planned for ICU admission but significantly improved and down to 1 L supplemental oxygen now being admitted to the medical floor for further management. Continues on heparin drip with mentation returned to baseline acute on chronic respiratory failure with hypoxia and hypercarbia- resolved likely secondary to CHF in the setting of acute LA received 1 dose IV lasix in ED with good effect weaned off bipap and on 1L NC (baseline) initially thought possible PE but given? CKD unable to have CTA. dimer around 1000- Venous duplex negative NSTEMI cardiac enzymes elevated, peak 7704, now trending down AC with heparin drip ECHO showing normal LV systolic function with EF 65-70%, mild calcification of aortic valve, mild mitral annular calcification, and grade 1 diastolic dysfunction. No regional wall motion abnormality Cardiology input appreciated Continue conservative management per cardiology- She is at high risk of contrast induced nephropathy/hemodialysis with catheterization. Discussion had with patient and her daughter, Evie, and Cardiology with decision to continue with conservative care Discontinue heparin drip as has been treated for over 48 hours Continue beta-michael, trial low-dose statin given history of myalgias, and aspirin Ambulate patient, ensure no cp and dc tomorrow Acute CHF, probable diastolic last echo from 08/2021-? with preserved ejection fraction Repeat echo pending received 1 dose of IV lasix in ED will give additional dose of lasix this evening and then monitor fluid status toxic encephalopathy- resolved, mentation returned to baseline secondary to medications Resume gabapentin (renally dosed)-hold further sedating meds for now DEVIN on CKD4/metabolic acidosis Creatinine trending down continue sodium bicarb nephrology following follow BMP recent RUE fistula formation - no lab draws/vitals on right arm- no indication for dialysis at this time Renal diet elevated ESR/CRP likely reactive related to acute LA acute lactic acidosis no evidence of infection /sepsis likely secondary to hypoxia/breathing treatments ILD/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 Worse with inspiration and movement Repeat CXR no trauma lidocaine patch DM SSI, POCs diet controlled - low Hba1c ada diet HTN hold losartan for soft bp hypothyroidism Continue home Synthroid restless leg syndrome mirapex not indicated with current renal function. Resume gabapentin- renally dosed at 300mg daily morbid obesity BMI 42.5 may be contributing to respiratory issues weight loss encouraged dvt ppx - heparin code status - DNR/DNI Patient requires ongoing inpatient stay for management of NSTEMI on heparin drip requiring close cardiac monitoring and expert consultation with probable DC home tomorrow Time Spent With Patient Time: Total time managing care of this patient today ____ minutes. Quality Stroke Does the patient have a stroke diagnosis?: No VTE Prior VTE?: No VTE Risk Level:: Medical - moderate - high VTE Device Contraindication: N/A - Device Ordered VTE Drug Contraindication: N/A - Med Ordered
[2022-12-30] MEDS: Benzonatate 100 MG CAPSULE PO ×2 (14:49→21:07)
[2022-12-30 15:46] LABS: Glucose, Whole Blood 91 mg/dL (60-115)
[2022-12-30 20:12] LABS: Glucose, Whole Blood 110 mg/dL (60-115)
[2022-12-30] MEDS: 0.9 % Sodium Chloride Flush 3 ML SYRINGE IVFLUSH (21:13)
[2022-12-31 02:53] VITALS: BP 132/60; PULSE 66; RESP 20; TEMP 36.4; O2SAT 96
[2022-12-31] MEDS: Lidocaine 4 % Patch ADH..PATCH 1 PATCH TRANSDERMA (02:54)
[2022-12-31] MEDS: Levothyroxine Sodium 100 MCG TABLET PO (06:10)
[2022-12-31] MEDS: Omeprazole 20 MG CAPSULE.DR PO (06:10)
[2022-12-31 07:21] VITALS: BP 128/61; PULSE 70; RESP 20; TEMP 36.5; O2SAT 98
[2022-12-31 07:40] LABS: Glucose, Whole Blood 86 mg/dL (60-115)
[2022-12-31] MEDS: Acetaminophen 325 MG TABLET 650 MG PO (08:25)
[2022-12-31] MEDS: Benzonatate 100 MG CAPSULE PO (08:26)
[2022-12-31] MEDS: Famotidine 20 MG TABLET PO (08:26)
[2022-12-31] MEDS: Gabapentin 300 MG CAPSULE PO (08:26)
[2022-12-31] MEDS: Sodium Bicarbonate 650 MG TABLET PO (08:26)
[2022-12-31] MEDS: Aspirin Enteric Coated 81 MG TABLET.DR PO (08:26)
[2022-12-31] MEDS: Metoprolol Tartrate 12.5 MG HALFTAB PO (08:26)
[2022-12-31] MEDS: Atorvastatin Calcium 20 MG TABLET PO (08:26)
[2022-12-31] MEDS: 0.9 % Sodium Chloride Flush 3 ML SYRINGE IVFLUSH (08:28)
--- NOTE | 2022-12-31 10:09 | P.PNCA_ITS ---
Subjective Subjective Date of Service: 12/31/22 Interval history: She states that she is feeling okay. No new complaints. No further chest pains. Review of Systems Review of Systems Yes all other systems are reviewed and are negative Constitutional: Reports as per HPI and Reports no additional constitutional complaints Eyes: Reports as per HPI and Denies no additional eye complaints Denies system reviewed and no additional complaints, except as documented and Reports as per HPI Cardiovascular: Reports as per HPI, Reports no additional cardiovascular complaints, Denies acrocyanosis, Denies cool extremities, Denies chest pain, Denies leg edema, Denies lightheadedness, Denies palpitations and Denies dyspnea Respiratory: Reports as per HPI, Denies no additional respiratory complaints and Denies dyspnea Gastrointestinal: Reports as per HPI and Denies no additional gastrointestinal complaints Genitourinary: Reports as per HPI Musculoskeletal: Reports no additional musculoskeletal complaints and Reports as per HPI Skin/Breast: Reports system reviewed and no additional complaints, except as docu Reports system reviewed and no additional complaints, except as documented and Reports as per HPI Psychiatric: Reports no additional psychiatric complaints and Reports as per HPI Endocrine: Reports no additional endocrine complaints, Reports as per HPI and Denies palpitations Hematologic/Lymphatic: Reports no additional hematologic/lymphatic complaints and Reports as per HPI Allergic/Immunologic: Reports no additional allergic/immunologic complaints and Reports as per HPI Physical Exam Vital Signs: Last Vital Signs Temp 97.7 F 12/31/22 07:21 Pulse 70 12/31/22 07:21 Resp 20 12/31/22 07:21 BP 128/61 12/31/22 07:21 Pulse Ox 98 12/31/22 07:21 O2 Del Method Nasal Cannula 12/31/22 07:21 O2 Flow Rate 2 12/31/22 07:21 BMI result Body Mass Index 42.5 Const General: comfortable and no acute distress Orientation/consciousness: patient oriented x3 HEENT Other: Unremarkable Head: Yes normal to inspection Neck Neck: Yes normal visual inspection Chest Chest palpation & inspection: normal inspection of the chest Resp Auscultation: clear to auscultation bilaterally Cardio Palpation: normal PMI Heart sounds: S1 normal heart sound present, S2 normal heart sound present, no gallops, Murmur heart sound present systolic I/ and at the right sternal bord er and no rubs GI Palpation (GI): Soft to palpation Back/Spine/Pelvis Other: unremarkable Skin General skin exam: no rashes or lesions noted Neuro General: patient oriented x3 Extrem General: Yes normal to inspection Psych Mental Status: mental status grossly normal Objective Labs and Meds 12/30/22 06:41 12/30/22 06:41 Lab results: Laboratory Results - last 24 hr 12/30/22 12/30/22 12/30/22 10:49 15:29 20:05 POC Glucose 102 91 110 12/31/22 07:20 POC Glucose 86 Progress Note: A&P Assessment and plan (1) NSTEMI (non-ST elevated myocardial infarction): Status: Acute (2) Acute kidney injury superimposed on CKD: Status: Acute Plan Multiple medical comorbidities, advanced renal dysfunction, pulmonary fibrosis, non ST-elevation myocardial infarction. Again discussed with daughter at the bedside today. Also discussed yesterday over the phone. Due to many comorbidities, she is being treated conservatively. Patient as well as daughter very much agreeable with this plan. There is high risk of contrast induced nephropathy. She has been on heparin drip but now discontinued. Otherwise, remains on asp irin, beta-blockers and statins. Can ambulate and see how she does. If no further cardiac symptoms, then potentially discharge planning. Discussed with hospitalist. Time Spent With Patient Time: Total time managing care of this patient today ____ minutes. Progress Note: Quality Stroke Does the patient have a stroke diagnosis?: No Procedures Date of Service Date of Service: 12/31/22
--- NOTE | 2022-12-31 10:36 | MHC.CM.PN ---
Addendum entered by Lissette Montilla RN 12/31/22 10:48: PT WILL BE SENT W/[facility] FROM [facility] Original Note: PT MEDICALLY CLEARED FOR D/C HOME W/[facility] FOR HOME PT AND [facility]UMP OF [facility] FOR HOME O2, PT'S DTR WILL TRANSPORT
[2022-12-31 11:08] VITALS: BP 101/49; PULSE 66; RESP 20; TEMP 36.3; O2SAT 98
[2022-12-31 11:34] LABS: Glucose, Whole Blood 122 mg/dL (60-115)
--- NOTE | 2022-12-31 11:56 | PM.DS ---
DS: Providers Provider Date of Service: 12/31/22 Date of admission: 12/28/22 12:35 Date of discharge: 12/31/22 Primary care physician: Christina Paiz MD Admitting clinician: Alexei Norman Attending physician on admission: Lindsey Calderon Consults: 12/28/22 08:27 Consult to Nephrology Stat Consulting Provider: Han Bingham Reason for consultation: hypoxia and delir Has provider been notified: Yes 12/28/22 11:50 Consult to Cardiology Routine Consulting Provider: [facility] [place] [facility] Reason for consultation: nstemi Has provider been notified: No Attending physician on discharge: Dmitri Lauren Discharging clinician: Nohemi Braden DS: Diagnosis Discharge Diagnosis (1) NSTEMI (non-ST elevated myocardial infarction): Status: Acute (2) Acute kidney injury superimposed on CKD: Status: Acute DS: Summary Hospital Course Hospital Course: HPI on admission by Alexei Norman PA-C on 12/28: Chief Complaint: hallucinations This is an 82-year-old female with multiple medical problems was brought in by ambulance due to hallucinations. ? On December 24 she underwent percutaneous RUE AV fistula formation.? she was given oxycodone for pain management which she reported was too strong? so she requested alternative and was prescribed Ultram.? Since starting those medication she has had intermittent hallucinations.? She was brought into the emergency department last evening with hallucinations and dyspnea.? The patient also is reporting chest pain at that time.? She was noted to be hypoxic and required high-flow oxygen and then BiPAP.? She was given multiple breathing treatments, IV Solu-Medrol, 1 dose of IV Lasix.? Cardiac enzymes were elevated at 6428, 7704 and given hypoxia there was concern for possible PE versus NSTEMI.? Due to her renal dysfunction she was unable to have CTA.? BNP was also elevated around 1000. she was initially requiring high-flow oxygen and then BiPAP and because of this and her altered mental status the plan was for her to go to the ICU.? However patient improved significantly in her mentation has improved at this time.? She has been? weaned off of BiPAP and on 1 L of oxygen saturating in the mid 90s.? She denies any shortness of breath or chest pain at this time and will be? admitted to [facility] floor for further management. Hospital Course: Patient admitted for NSTEMI with acute of chronic kidney injury. She was treated conservatively with heparin gtt and started on metoprolol, asa 81mg, and statin. Troponin peaked at 7704. On admission, she was also found encephalopathic thought to be related to medications. Sedating medications were held. Her gabapentin was resumed at 300 mg daily which is a renally appropriate dose and she is advised that she cannot take the mirapex due to her renal function. Echocardiogram was performed showing LV systolic function normal with EF 65-70% and mild calcifications of the aortic valve, mild mitral valve annular calcification, and grade 1 diastolic dysfunction. There were no regional wall motion abnormalities appreciated. She was followed by both Cardiology and Nephrology during admission. Discussion was had with patient and family as well as Cardiology Nephrology to discuss the risk of nephropathy and hemodialysis if she underwent cardiac catheterization. Patient and family opted to continue with conservative care. Heparin drip was discontinued after 48 hours and she had no further episodes of chest pressure. She did develop fleeting episode of pleuritic sharp right-sided chest pain which resolved with lidocaine patch and repeat chest x-ray did not reveal any acute abnormalities. She will be discharged home with physical therapy and will continue on aspirin, metoprolol, and low-dose statin (has history of myalgias with statins, increase dose as tolerated). Renal function returned to baseline, no other significant lab abnormality. She will follow up outpatient with both Cardiology and Nephrology. acute on chronic respiratory failure with hypoxia and hypercarbia- resolved likely secondary to CHF in the setting of acute IN received 1 dose IV lasix in ED with good effect weaned off bipap and on 1L NC (baseline) initially thought possible PE but given? CKD unable to have CTA. dimer around 1000- Venous duplex negative b/l NSTEMI cardiac enzymes elevated, peak 7704, now trending down AC with heparin drip ECHO showing normal LV systolic function with EF 65-70%, mild calcification of aortic valve, mild mitral annular calcification, and grade 1 diastolic dysfunction.? No regional wall motion abnormality Cardiology input appreciated Continue conservative management per cardiology- She is at high risk of contrast induced nephropathy/hemodialysis with catheterization.? Discussion had with patient and her daughter, Evie, and Cardiology with decision to continue with conservative care Discontinue heparin drip as has been treated for over 48 hours Continue beta-michael, trial low-dose statin given history of myalgias, and aspirin Acute CHF, diastolic Repeat echo as above will give additional dose of lasix this evening and then monitor fluid status euvolemic on dc toxic encephalopathy- resolved, mentation returned to baseline secondary to medications Resume gabapentin 300mg max daily (renally dosed)-hold further sedating meds for now DEVIN on CKD4/metabolic acidosis Creatinine trending down continue sodium bicarb nephrology following follow BMP recent RUE fistula formation - no lab draws/vitals on right arm- no indication for dialysis at this time Renal diet elevated ESR/CRP likely reactive related to acute IN acute lactic acidosis no evidence of infection /sepsis likely secondary to hypoxia/breathing treatments ILD/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 Worse with inspiration and movement Repeat CXR negative for acute abnormality no trauma lidocaine patch DM- glucose levels controlled SSI, POCs diet controlled - low Hba1c ada diet HTN Losartan dc'd, continue metoprolol hypothyroidism Continue home Synthroid restless leg syndrome mirapex contraindicated with current renal function. Resume gabapentin- renally dosed at 300mg daily morbid obesity BMI 42.5 may be contributing to respiratory issues weight loss encouraged Status at Discharge Functional status at discharge: independent ambulation Overall status at discharge: patient is progressing back to baseline Time Spent with Patient Time attestation: Total time managing care of this patient today ____ minutes. Discharge coordination time: Greater than 30 minutes Quality: Safe Use of Opioids Does Pt have an Active Cancer Diagnosis on the Problem List?: No Quality: Stroke Does the patient have a stroke diagnosis?: No Physical Exam Vital Signs: Vital Signs: Last Vital Signs Temp 97.3 F 12/31/22 11:08 Pulse 66 12/31/22 11:08 Resp 20 12/31/22 11:08 BP 101/49 L 12/31/22 11:08 Pulse Ox 98 12/31/22 11:08 O2 Del Method Nasal Cannula 12/31/22 11:08 O2 Flow Rate 2 12/31/22 11:08 BMI result Body Mass Index 42.5 Constitutional - Awake and Alert, No apparent distress Eyes - PERRLA, EOMI Cardiovascular - S1S2, RRR, No edema Respiratory - Normal lung expansion, Normal respiratory effort, No respiratory distress, CTA bilaterally Gastrointestinal - NT / ND; +BS; No rebound or guarding Extremities - no calf tenderness bilaterally, no swelling Skin - Warm/Dry Neurological - Alert & oriented x3 Psychological - Appropriate affect DS: Data Data Completed and Pending Labs on day of discharge: Laboratory Results - last 24 hr 12/30/22 12/30/22 12/31/22 15:29 20:05 07:20 POC Glucose 91 110 86 12/31/22 11:15 POC Glucose 122 H Preliminary micro results at discharge 12/28/22 02:04 Blood Culture - Preliminary Blood - Venous No growth after 48 hours. 12/28/22 01:23 Blood Culture - Preliminary Blood - Venous No growth after 48 hours. Discharge Plan Discharge Anticipated Discharge Date/Time: 12/31/22 09:59 Patient Disposition: Home Health Service Discharge Diagnosis: NSTEMI, CKD stage 4/5, delerium Referrals: Dana SINGH [Outside] - 1 Day (HOME PHYSICAL THERAPY) Christina Paiz MD [Primary Care Provider] - 1 Week Han Bingham MD [Physician] - 1 Week Phuc Jones MD [Physician] - 1 Week Discharge Medications: New atorvastatin 20 mg Tablet 20 mg PO DAILY Qty: 90 0RF aspirin 81 mg Tablet,Delayed Release (Dr/Ec) 81 mg PO DAILY Qty: 90 0RF gabapentin 300 mg Capsule 300 mg PO DAILY Qty: 90 0RF benzonatate 100 mg Capsule 100 mg PO TID PRN (Reason: cough) Qty: 90 0RF metoprolol tartrate 25 mg tablet 12.5 mg PO BID Qty: 180 0RF Continued sodium bicarbonate 325 mg tablet 650 mg PO BID allopurinol 100 mg tablet 100 mg PO DAILY levothyroxine 100 mcg tablet 100 mcg PO DAILY@0600 citalopram 20 mg tablet 20 mg PO DAILY famotidine 20 mg tablet 20 mg PO DAILY pantoprazole 40 mg tablet,delayed release (DR/EC) 40 mg PO DAILY@0630 albuterol sulfate 90 mcg/actuation HFA aerosol inhaler 2 puff inhalation Q4-6H PRN (Reason: Shortness Of Breath Or Wheezing) guaifenesin 400 mg Tablet 800 mg PO TID cetirizine [Zyrtec] 10 mg Tablet 10 mg PO DAILY Discontinued losartan 25 mg tablet 25 mg PO BEDTIME pramipexole 0.25 mg tablet 0.25 mg PO BEDTIME gabapentin 300 mg capsule 600 mg PO TID ezetimibe 10 mg tablet 10 mg PO DAILY Discharge Orders: Discharge Order (Routine); Ordered 12/31/22 Ordered By: Nohemi Braden Diet: cardiac diet, diabetic di Activity on Discharge: As tolerated Stand Alone Forms: Patient Portal Discharge page Care Plan Goals: See below Health Concerns: NSTEMI 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 Given your chronic kidney disease, it was decided between you and Cardiology that cardiac catheterization would likely result in ending up on dialysis and you have elected for conservative approach. Please do not hesitate to return to the ED should she develop chest pressure again. Follow-up with cardiology outpatient Continue following with Nephrology for management of her chronic kidney disease Your delirium resolved during inpatient stay as this was likely related to medications which were being taken at high doses given your renal function. Requip is not recommended given your chronic kidney disease severity and should not be taken any longer. You can continue taking gabapentin but at a much lower dose. You should not exceed 300 mg daily given your renal function. Assessment: As above Discharge Date/Time: 12/31/22 13:07
--- NOTE | 2022-12-31 13:14 | PM.PNNEP ---
Subjective Subjective Date of Service: 12/31/22 Interval history: Chest pain resolved. Feels better Physical Exam Vital Signs: Vital Signs: Last Vital Signs Temp 97.3 F 12/31/22 11:08 Pulse 66 12/31/22 11:08 Resp 20 12/31/22 11:08 BP 101/49 L 12/31/22 11:08 Pulse Ox 98 12/31/22 11:08 O2 Del Method Nasal Cannula 12/31/22 11:08 O2 Flow Rate 2 12/31/22 11:08 BMI result Body Mass Index 42.5 Const: General: no acute distress Orientation/consciousness: patient oriented x3 Eyes: EOM: EOMs intact bilaterally Neck: Neck: Yes supple Resp: Auscultation: diminished lung sounds Cardio: Rate: regular rate GI: Palpation (GI): Soft to palpation Neuro: General: patient oriented x3 and moves all extremities Objective Data Labs 12/30/22 06:41 12/30/22 06:41 Labs: Laboratory Results - last 24 hr 12/30/22 12/30/22 12/31/22 15:29 20:05 07:20 POC Glucose 91 110 86 12/31/22 11:15 POC Glucose 122 H Microbiology Microbiology Results: Microbiology 12/28/22 02:04 Blood - Venous Blood Culture - Preliminary No growth after 48 hours. 12/28/22 01:23 Blood - Venous Blood Culture - Preliminary No growth after 48 hours. 12/28/22 09:55 Urine clean catch - Clean Catch Midstream Urine Culture - Final No growth. Procedures Date of Service Date of Service: 12/31/22 Assessment & Plan Assessment and plan (1) Acute kidney injury superimposed on CKD: Status: Acute Assessment and Plan: DEVIN due to compromise in renal perfusion Has CKD 4 at baseline; Has a functioning AVF UO good; ARB on hold; Renal function better No indication for HD; C/W current management Shall arrange office follow up Progress Note: Quality Stroke Does the patient have a stroke diagnosis?: No
--- NOTE | 2022-12-31 15:49 | P.F2F_ITS ---
Service Date Service Date: 12/31/22 Encounter Date of encounter: 12/31/22 Reasons for Services Signs and symptoms assessed: general weakness, unsteady gait Reason for physical therapy: home safety and mobility, therapeutic exercises and gait/transfer training Homebound: Leaving the home is medically contraindicated at this time without the asist of a device and/or another person due th the listed conditions above and below. Reason homebound: unsteady gait / fall risk and weakness related to hospital stay Certification: Based on the above findings, I certify that this patient is confined to the home and needs intermittent retirement care, physical therapy and/or speech therapy, or continues to need occupational therapy. The patient is under my care, and I have initiated the establishment of the plan of care. The patient will be followed by a physician who will periodically review the plan of care. Time Spent With Patient Time: Total time managing care of this patient today ____ minutes.
== END 2022-12-31 13:07 | disposition home health service (06) | DRG 280 ==
LOC: HO.ED 12-28 06:09 → HO.EDOVER 12-28 13:10 → HO.IMC 12-28 14:47
PROVIDERS: Internal Medicine; Internal Medicine Cardiovascular Disease; Physician Assistant Medical; Admitting Provider Physician Assistant Medical; Emergency Provider Emergency Medicine Emergency Medical Services; PCP Internal Medicine; Visit Provider Physician Assistant
DX: I21.4 Non-ST elevation (NSTEMI) myocardial infarction (principal); G92.8 Other toxic encephalopathy; I50.31 Acute diastolic (congestive) heart failure; J96.01 Acute respiratory failure with hypoxia; J96.02 Acute respiratory failure with hypercapnia; I13.0 Hypertensive heart and chronic kidney disease with heart failure and stage 1 through stage 4 chronic kidney disease, or unspecified chronic kidney disease; N18.4 Chronic kidney disease, stage 4 (severe); N17.9 Acute kidney failure, unspecified; E87.21 Acute metabolic acidosis; J44.1 Chronic obstructive pulmonary disease with (acute) exacerbation; F05 Delirium due to known physiological condition; F33.9 Major depressive disorder, recurrent, unspecified; Z68.41 Body mass index [BMI] 40.0-44.9, adult; J84.10 Pulmonary fibrosis, unspecified; E11.22 Type 2 diabetes mellitus with diabetic chronic kidney disease; E66.01 Morbid (severe) obesity due to excess calories; E03.9 Hypothyroidism, unspecified; T40.2X5A Adverse effect of other opioids, initial encounter; G25.81 Restless legs syndrome; D63.1 Anemia in chronic kidney disease; E78.5 Hyperlipidemia, unspecified; Z98.1 Arthrodesis status; Z87.891 Personal history of nicotine dependence; Z79.82 Long term (current) use of aspirin; Z79.890 Hormone replacement therapy; Z79.899 Other long term (current) drug therapy
CPT/HCPCS: 36415; 71045; 80048; 80053; 82728; 82803; 82947; 83605; 83615; 83735; 83880; 84443; 84484; 85014; 85018; 85025; 85379; 85610; 85652; 85730; 86140; 87040; 87086; 87633; 87635; 93005; 93306; 93970; 94640; 97162; 99285; J1643; J1940; J2930; Q9957

== ENCOUNTER 2023-01-03 18:59 | Emergency (ER) | payer MEDICARE, SELFPAY ==
--- NOTE | ~2023-01-03 | XR_ITS ---
EXAMINATION: XR CHEST CLINICAL INFORMATION: Chest pain COMPARISON: 12/29/2022 TECHNIQUE: Frontal view of the chest was obtained. FINDINGS: Once again low lung volumes. Persistent mild opacities are noted. No convincing evidence for worsening from previous exam. Coarse markings some of which may be chronic The cardiac silhouette is comparable. XR/XR chest 1V IMPRESSION: Once again low lung volumes. Persistent mild markings throughout the lungs without significant worsening from previous
--- NOTE | 2023-01-03 19:00 | ECG_ITS ---
Test Reason : CP Blood Pressure : / mmHG Vent. Rate : 086 BPM Atrial Rate : 086 BPM P-R Int : 192 ms QRS Dur : 082 ms QT Int : 360 ms P-R-T Axes : 000 202 192 degrees QTc Int : 430 ms Suspect limb lead reversal, interpretation assumes no reversal Normal sinus rhythm Lateral infarct , age undetermined Inferior infarct (cited on or before 27-AUG-2021) Abnormal ECG When compared with ECG of 29-DEC-2022 00:57, ST-T changes noted Referred By: Generic ED Physician Electronically Signed By:SANDRA AMBROCIO
--- NOTE | 2023-01-03 19:08 | ECG_ITS ---
Test Reason : chest pain Blood Pressure : / mmHG Vent. Rate : 089 BPM Atrial Rate : 089 BPM P-R Int : 186 ms QRS Dur : 080 ms QT Int : 362 ms P-R-T Axes : 043 -07 -01 degrees QTc Int : 440 ms Artifact in tracing Sinus rhythm with Premature supraventricular complexes and with occasional Premature ventricular complexes Inferior infarct (cited on or before 27-AUG-2021) T wave abnormality, consider anterior ischemia Abnormal ECG When compared with ECG of 03-JAN-2023 19:03, Premature ventricular complexes are now Present Premature supraventricular complexes are now Present QRS axis Shifted right Questionable change in initial forces of Inferior leads Referred By: Leti Brown Electronically Signed By:SANDRA AMBROCIO
--- NOTE | 2023-01-03 19:18 | ED.CHESTPAIN ---
HPI - Chest Pain General Chief Complaint: Chest Pain Stated Complaint: chest pain Time Seen by Provider: 01/03/23 20:12 Source: patient Mode of arrival: ambulatory Limitations: no limitations History of Present Illness HPI narrative: 82-year-old female with past medical history of CKD4, ILD/pulmonary fibrosis / COPD on 2 L of p.r.n. oxygen, DM non STEMI on 12/28/2022 with troponin and 7000 discharged on 12/31 was doing okay for 2 days came back as she been having chest pain since last night with left lower chest increases on deep inspiration less severe than during last admission no increased shortness of breath has chronic cough no fever no chills Related Data Home Medications Medication Instructions Recorded Confirmed albuterol sulfate 90 mcg/actuation 2 puff inhalation Q4-6H PRN 12/28/22 12/28/22 aerosol inhaler Shortness Of Breath Or Wheezing allopurinol 100 mg tablet 100 mg PO DAILY 12/28/22 12/28/22 cetirizine 10 mg tablet (Zyrtec) 10 mg PO DAILY 12/28/22 12/28/22 citalopram 20 mg tablet 20 mg PO DAILY 12/28/22 12/28/22 famotidine 20 mg tablet 20 mg PO DAILY 12/28/22 12/28/22 guaifenesin 400 mg tablet 800 mg PO TID congestion 12/28/22 12/28/22 levothyroxine 100 mcg tablet 100 mcg PO DAILY@0600 12/28/22 12/28/22 pantoprazole 40 mg tablet,delayed 40 mg PO DAILY@0630 12/28/22 12/28/22 release sodium bicarbonate 325 mg tablet 650 mg PO BID 12/28/22 12/28/22 Previous Rx's Medication Instructions Recorded aspirin 81 mg tablet,delayed 81 mg PO DAILY #90 tabs 12/31/22 release atorvastatin 20 mg tablet 20 mg PO DAILY #90 tabs 12/31/22 benzonatate 100 mg capsule 100 mg PO TID PRN cough #90 caps 12/31/22 gabapentin 300 mg capsule 300 mg PO DAILY #90 caps 12/31/22 metoprolol tartrate 25 mg tablet 12.5 mg PO BID #180 tabs 12/31/22 Allergies Allergy/AdvReac Type Severity Reaction Status Date / Time NSAIDS (Non-Steroidal Allergy Unknown Verified 12/03/22 10:33 Anti-Inflamma Oikzhje-OSG-KrW Reductase AdvReac Severe LEG PAIN Verified 12/03/22 10:33 Inhibitor Review of Systems Review of Systems: Yes all other systems are reviewed and are negative [facility] Past Medical History Medical History Acquired hypothyroidism COPD (chronic obstructive pulmonary disease) Cough Depression, major, recurrent Diabetes Dyslipidemia Fibromyalgia Heart murmur Interstitial lung disease Kidney failure, acute Osteoarthritis of multiple joints Respiratory failure with hypoxia Type 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 Surgical History H/O hemorrhoidectomy Hx of fusion of cervical spine Hx of tonsillectomy S/P anal fissurectomy S/P appendectomy S/P partial hysterectomy Family History Family History Brother Substance use disorder Son Substance use disorder Daughter Substance use disorder Social History Social History Household Members: Family Housing: Apartment Do you presently have visiting nurse or other home services: Yes Alcohol intake: former Patient Tobacco Use Status: Former Tobacco user Quit Date: 15 years ago Years Smoked: 20 +/- on and off Smoked in Last 30 Days: No e-Cigarette/Vaping Use: Never Used Second Hand Smoke Exposure: No Any prior treatment program specific to substance use: No Advance Directives: Yes Advance Directives on File: Yes Advance Directives Date on File: 08/28/21 service: No Current occupational status: retired Current occupation: right handed Cognitive needs: No Hearing needs: No Vision needs: Yes Physical Exam Vital Signs: Vital Signs: Last Vital Signs Temp 96.8 F 01/03/23 19:23 Pulse 82 01/03/23 19:23 Resp 18 01/03/23 19:23 BP 138/53 L 01/03/23 19:23 Pulse Ox 100 01/03/23 19:23 O2 Del Method Nasal Cannula 01/03/23 20:00 BMI result Body Mass Index 40.2 Appearance: Alert. Oriented X3. No acute distress. ENT: Pharynx normal. Oral Mucosa moist Neck: Normal inspection. Neck supple. CVS: Normal heart rate and rhythm. Pulses normal. Respiratory: No respiratory distress. Equal air entry bilateral, bilateral fine rales at bases Abdomen: Soft and nontender. Bowel sounds are present, no mass palpable, no CVA tenderness Skin: Skin warm and dry. Normal skin color. Normal skin turgor. Extremities: No lower extremity edema. No calf tenderness Neuro: Oriented X 3. No motor deficit. No sensory deficit.No cerebellar signs , cranial nerves II-XII intact Course Course Course Narrative: This is an RME: Additional HPI, ROS, PE not included below will be deferred to primary provider. Patient is an 82 old female who presents emergency department for evaluation of chest pain. Sudden onset yesterday night while sitting in a chair, pain is felt beneath the left breast, described as constant nature and sharp. Worse with inspiration and coughing. Productive cough. Reports chills. Associated nausea but no vomiting. Attempted Lidoderm patches as this has helped with pain she has experienced on the right side in the past but the Lidoderm did not make any difference. Patient admitted to [facility] 12/28/2022-12/31/2022 for NSTEMI, and DEVIN superimposed on CKD. Plan: Serum labs, EKG, chest x-ray Medical Decision Making Medical Decision Making MDM Narrative: Patient has left-sided chest pain sharp in character with increases on deep inspiration likely pleuritic recently had a non STEMI with troponin level in 7000 today was only 99 without any acute ischemic changes in the EKG will discharge patient home advised to continue her medications and follow with PCP Lab Data MDM Lab Attestation statement: I reviewed the patient's lab results. 01/03/23 20:54 01/03/23 20:54 Labs: Lab Results 01/03/23 01/03/23 01/03/23 Range/Units 20:54 20:54 20:54 WBC 11.1 H (4.8-10.8) X10*3/uL RBC 3.56 L (4.20-5.50) X10*6/uL Hgb 11.3 L (12.0-16.0) g/dl Hct 34.8 L (37.0-47.0) % MCV 97.8 (80.0-98.0) fL MCH 31.7 (27.0-33.0) pg MCHC 32.5 (31.0-35.0) g/dl RDW 14.6 (11.0-16.0) % Plt Count 231 (160-400) X10*3/uL MPV 10.6 (9.4-12.3) fL Immature Gran % (Auto) 1.4 H (0.0-0.4) % Neut % (Auto) 67.0 (45-73) % Lymph % (Auto) 19.0 L (20-40) % [place] % (Auto) 7.3 (2-11) % Eos % (Auto) 5.1 H (0-4) % Baso % (Auto) 0.2 (0-2) % Lymph # (Auto) 2.1 (1.2-4.9) X10*3/uL [place] # (Auto) 0.8 (0.1-1.2) X10*3/uL Eos # (Auto) 0.6 H (0.0-0.4) X10*3/uL Baso # (Auto) 0.0 (0.0-0.2) X10*3/uL Abs Immat Gran (auto) 0.15 H (0.00-0.03) X10*3/uL Absolute Neuts (auto) 7.4 (2.0-8.3) x10*3/uL Absolute Nucleated RBC 0.000 (0.0-0.012) X10*3/uL Nucleated RBC % (auto) 0.0 (0.0-0.2) /100WBC PT 11.7 (10.0-13.1) SEC INR 1.0 (0.9-1.1) Sodium 144 (135-145) mmol/L Potassium 4.0 (3.3-5.1) mmol/L Chloride 101 (96-108) mmol/L Carbon Dioxide 32 H (22-29) mmol/L Anion Gap 15 (12-20) BUN 56 H (9-16) mg/dL Creatinine 2.24 H (0.5-1.4) mg/dL Estim Creat Clear Calc 20.6 Estimated GFR 21 Random Glucose 111 (60-115) mg/dL Calcium 9.3 D (8.4-10.2) mg/dL Total Bilirubin 0.7 (0.0-1.0) mg/dL AST 13 (5-31) U/L ALT 12 (0-31) U/L Alkaline Phosphatase 74 (39-117) U/L Troponin I High Sens (<3.5-17.0) ng/L B-Natriuretic Peptide (<100) pg/mL Total Protein 6.2 L (6.5-8.0) g/dL Albumin 3.1 L (3.5-5.0) g/dL COVID-19 (ISAAK) (Negative) COVID-19 Clin Com 01/03/23 01/03/23 01/03/23 Range/Units 20:54 20:54 20:55 WBC (4.8-10.8) X10*3/uL RBC (4.20-5.50) X10*6/uL Hgb (12.0-16.0) g/dl Hct (37.0-47.0) % MCV (80.0-98.0) fL MCH (27.0-33.0) pg MCHC (31.0-35.0) g/dl RDW (11.0-16.0) % Plt Count (160-400) X10*3/uL MPV (9.4-12.3) fL Immature Gran % (Auto) (0.0-0.4) % Neut % (Auto) (45-73) % Lymph % (Auto) (20-40) % [place] % (Auto) (2-11) % Eos % (Auto) (0-4) % Baso % (Auto) (0-2) % Lymph # (Auto) (1.2-4.9) X10*3/uL [place] # (Auto) (0.1-1.2) X10*3/uL Eos # (Auto) (0.0-0.4) X10*3/uL Baso # (Auto) (0.0-0.2) X10*3/uL Abs Immat Gran (auto) (0.00-0.03) X10*3/uL Absolute Neuts (auto) (2.0-8.3) x10*3/uL Absolute Nucleated RBC (0.0-0.012) X10*3/uL Nucleated RBC % (auto) (0.0-0.2) /100WBC PT (10.0-13.1) SEC INR (0.9-1.1) Sodium (135-145) mmol/L Potassium (3.3-5.1) mmol/L Chloride (96-108) mmol/L Carbon Dioxide (22-29) mmol/L Anion Gap (12-20) BUN (9-16) mg/dL Creatinine (0.5-1.4) mg/dL Estim Creat Clear Calc Estimated GFR Random Glucose (60-115) mg/dL Calcium (8.4-10.2) mg/dL Total Bilirubin (0.0-1.0) mg/dL AST (5-31) U/L ALT (0-31) U/L Alkaline Phosphatase (39-117) U/L Troponin I High Sens 99.1 H* D (<3.5-17.0) ng/L B-Natriuretic Peptide 518 H (<100) pg/mL Total Protein (6.5-8.0) g/dL Albumin (3.5-5.0) g/dL COVID-19 (ISAAK) Negative (Negative) COVID-19 Clin Com See Note Independent Interpretation I performed an independent interpretation of an: EKG Interpretation: Normal sinus rhythm with heart rate of 89 beats per minute occasional PVCs poor progression of R-wave Q-waves in inferior leads no acute ST T wave changes no acute ischemia Discharge Plan Discharge Clinical Impression: Chest pain Patient Disposition: Home, Self-Care Instructions: Chest Pain (ED) Additional Instructions: Continue your nebulizing treatments and oxygen Tylenol for pain Follow with your transcription typist Prescriptions: No Action sodium bicarbonate 325 mg tablet 650 mg PO BID allopurinol 100 mg tablet 100 mg PO DAILY levothyroxine 100 mcg tablet 100 mcg PO DAILY@0600 citalopram 20 mg tablet 20 mg PO DAILY famotidine 20 mg tablet 20 mg PO DAILY pantoprazole 40 mg tablet,delayed release (DR/EC) 40 mg PO DAILY@0630 albuterol sulfate 90 mcg/actuation HFA aerosol inhaler 2 puff inhalation Q4-6H PRN (Reason: Shortness Of Breath Or Wheezing) guaifenesin 400 mg Tablet 800 mg PO TID cetirizine [Zyrtec] 10 mg Tablet 10 mg PO DAILY atorvastatin 20 mg Tablet 20 mg PO DAILY Qty: 90 0RF aspirin 81 mg Tablet,Delayed Release (Dr/Ec) 81 mg PO DAILY Qty: 90 0RF gabapentin 300 mg Capsule 300 mg PO DAILY Qty: 90 0RF benzonatate 100 mg Capsule 100 mg PO TID PRN (Reason: cough) Qty: 90 0RF metoprolol tartrate 25 mg tablet 12.5 mg PO BID Qty: 180 0RF Interventions: ED Discharge Assessment Last Done: 01/03/23 22:27 Discharge Date/Time: 01/03/23 22:32
[2023-01-03 19:23] VITALS: BP 138/53; PULSE 82; RESP 18; TEMP 36; O2SAT 100; BMI 40.2
[2023-01-03 21:04] LABS: MANUAL DIFF FLAG NO
[2023-01-03 21:19] LABS: COVID-19 Test Negative (Negative); IDNOW Serial# 6674DD1D
[2023-01-03 21:26] LABS: Basophils Percent Auto 0.2 % (0-2); Eosinophils Absolute Auto 0.6 X10*3/uL (0.0-0.4); Eosinophils Percent Auto 5.1 % (0-4); Hematocrit 34.8 % (37.0-47.0); Hemoglobin 11.3 g/dl (12.0-16.0); Imm Gran Abs Auto 0.15 X10*3/uL (0.00-0.03); Imm Gran Pct Auto 1.4 % (0.0-0.4); Lymphocytes Absolute Auto 2.1 X10*3/uL (1.2-4.9); Mean Corpuscular HGB Conc 32.5 g/dl (31.0-35.0); Mean Corpuscular Hemoglobin 31.7 pg (27.0-33.0); Mean Corpuscular Volume 97.8 fL (80.0-98.0); Mean Platelet Volume 10.6 fL (9.4-12.3); Monocytes Absolute Auto 0.8 X10*3/uL (0.1-1.2); Monocytes Percent Auto 7.3 % (2-11); Neutrophils Absolute Auto 7.4 x10*3/uL (2.0-8.3); Platelet Count 231 X10*3/uL (160-400); Red Blood Count 3.56 X10*6/uL (4.20-5.50); Red Cell Distribution Width 14.6 % (11.0-16.0); White Blood Count 11.1 X10*3/uL (4.8-10.8)
[2023-01-03 21:27] LABS: Alanine Aminotransferase 12 U/L (0-31); Albumin Level 3.1 g/dL (3.5-5.0); Alkaline Phosphatase 74 U/L (39-117); Anion Gap 15 (12-20); Aspartate Amino Transferase 13 U/L (5-31); Bilirubin Total 0.7 mg/dL (0.0-1.0); Blood Urea Nitrogen 56 mg/dL (9-16); Calcium 9.3 mg/dL (8.4-10.2); Carbon Dioxide 32 mmol/L (22-29); Chloride 101 mmol/L (96-108); Creatinine Clr Calc Pharmacy 20.6; Estimated Glomerular Filt Rate 21; Glucose Random 111 mg/dL (60-115); Sodium 144 mmol/L (135-145); Total Protein 6.2 g/dL (6.5-8.0)
[2023-01-03 21:33] LABS: B Type Natriuretic Peptide 518 pg/mL (<100)
[2023-01-03 21:46] LABS: Troponin-I High Sensitivity 99.1 ng/L (<3.5-17.0)
[2023-01-03 21:50] LABS: Prothrombin Time 11.7 SEC (10.0-13.1)
== END 2023-01-03 22:32 | disposition home or self-care (01) ==
PROVIDERS: Nurse Practitioner Family; Emergency Provider Internal Medicine; PCP Internal Medicine
DX: R07.9 Chest pain, unspecified (principal); Z20.822 Contact with and (suspected) exposure to COVID-19; E11.22 Type 2 diabetes mellitus with diabetic chronic kidney disease; N18.4 Chronic kidney disease, stage 4 (severe); E78.5 Hyperlipidemia, unspecified; Z79.899 Other long term (current) drug therapy; Z79.02 Long term (current) use of antithrombotics/antiplatelets; Z79.82 Long term (current) use of aspirin; Z87.891 Personal history of nicotine dependence
CPT/HCPCS: 36415; 71045; 80053; 83880; 84484; 85025; 85610; 87635; 93005; 99284; 99285

== ENCOUNTER 2023-01-06 00:52 | Emergency (ER) | payer MEDICARE, MEDICAID, SELFPAY ==
[2023-01-06] VITALS (8 sets, daily range): BP systolic 95–120; BP diastolic 36–93; PULSE 65–90; RESP 12–19; TEMP 36.8; O2SAT 93–97; BMI 38.8
--- NOTE | 2023-01-06 | ECG_ITS ---
Test Reason : CHEST PAIN Blood Pressure : / mmHG Vent. Rate : 071 BPM Atrial Rate : 071 BPM P-R Int : 206 ms QRS Dur : 078 ms QT Int : 410 ms P-R-T Axes : 047 002 -11 degrees QTc Int : 445 ms Normal sinus rhythm Possible Inferior infarct (cited on or before 27-AUG-2021) T wave abnormality, consider anterior ischemia Abnormal ECG When compared with ECG of 03-JAN-2023 19:05, Premature ventricular complexes are no longer Present Premature supraventricular complexes are no longer Present Referred By: Generic ED Physician Electronically Signed By:Dmitry Rogers
--- NOTE | ~2023-01-06 | XR_ITS ---
EXAMINATION: XR CHEST CLINICAL INFORMATION: Chest pain COMPARISON: 01/03/2023 TECHNIQUE: Frontal view of the chest was obtained. FINDINGS: Lungs are hypoinflated. No focal consolidation is seen. No evidence of pneumothorax, significant pleural effusion, or overt pulmonary edema. Cardiac silhouette appears somewhat prominent though may be accentuated by low lung volumes. No acute osseous findings are seen. XR/XR chest 1V IMPRESSION: Low lung volumes without definite acute findings.
--- NOTE | 2023-01-06 01:09 | ED_ITS ---
HPI - Chest Pain General Chief Complaint: Chest Pain Stated Complaint: CP Time Seen by Provider: 01/06/23 01:06 History of Present Illness HPI narrative: 82-year-old female who presents emergency department for evaluation of left- sided chest pain. The patient was admitted to the hospital from 12/28/2022 until 12/31/2022 for respiratory failure secondary to COPD/CHF requiring BiPAP, and NSTEMI with high sensitive troponin I max 7000, treated medically. She states that when she left the hospital she was having left-sided chest pain this been constant since then. She was seen in the emergency department on 01/03/2023 for similar chest pain. Her workup at that time was unremarkable. She states that this evening the pain got worse. She points to her left breast and left lateral chest when asked to localize the pain. She states that the pain is a sharp, constant pain which is worse with breathing. She did not have any pain in her neck, jaw, back or arms. She denied diaphoresis. She denied nausea, vomiting or shortness of breath associated with her chest pain. She states she has a chronic cough secondary to her COPD. She denied fever but did have chills. She states that her pain is currently 10/10. Patient does have chronic kidney disease and had a right arm fistula placed recently on 12/24/2022. Related Data Home Medications Medication Instructions Recorded Confirmed albuterol sulfate 90 mcg/actuation 2 puff inhalation Q4-6H PRN 12/28/22 12/28/22 aerosol inhaler Shortness Of Breath Or Wheezing allopurinol 100 mg tablet 100 mg PO DAILY 12/28/22 12/28/22 cetirizine 10 mg tablet (Zyrtec) 10 mg PO DAILY 12/28/22 12/28/22 citalopram 20 mg tablet 20 mg PO DAILY 12/28/22 12/28/22 famotidine 20 mg tablet 20 mg PO DAILY 12/28/22 12/28/22 guaifenesin 400 mg tablet 800 mg PO TID congestion 12/28/22 12/28/22 levothyroxine 100 mcg tablet 100 mcg PO DAILY@0600 12/28/22 12/28/22 pantoprazole 40 mg tablet,delayed 40 mg PO DAILY@0630 12/28/22 12/28/22 release sodium bicarbonate 325 mg tablet 650 mg PO BID 12/28/22 12/28/22 Previous Rx's Medication Instructions Recorded aspirin 81 mg tablet,delayed 81 mg PO DAILY #90 tabs 12/31/22 release atorvastatin 20 mg tablet 20 mg PO DAILY #90 tabs 12/31/22 benzonatate 100 mg capsule 100 mg PO TID PRN cough #90 caps 12/31/22 gabapentin 300 mg capsule 300 mg PO DAILY #90 caps 12/31/22 metoprolol tartrate 25 mg tablet 12.5 mg PO BID #180 tabs 12/31/22 morphine 15 mg immediate release 15 mg PO Q4-6H PRN pain #10 tabs 01/06/23 tablet Allergies Allergy/AdvReac Type Severity Reaction Status Date / Time NSAIDS (Non-Steroidal Allergy Unknown Verified 12/03/22 10:33 Anti-Inflamma Tdtrvcg-FLO-CqW Reductase AdvReac Severe LEG PAIN Verified 12/03/22 10:33 Inhibitor Review of Systems Review of Systems: Yes all other systems are reviewed and are negative PMFSH Past Medical History Medical History Acquired hypothyroidism COPD (chronic obstructive pulmonary disease) Cough Depression, major, recurrent Diabetes Dyslipidemia Fibromyalgia Heart murmur Interstitial lung disease Kidney failure, acute Osteoarthritis of multiple joints Respiratory failure with hypoxia Type 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 Surgical History H/O hemorrhoidectomy Hx of fusion of cervical spine Hx of tonsillectomy S/P anal fissurectomy S/P appendectomy S/P partial hysterectomy Family History Family History Brother Substance use disorder Son Substance use disorder Daughter Substance use disorder Social History Social History Household Members: Family Housing: Apartment Do you presently have visiting nurse or other home services: Yes Alcohol intake: former Patient Tobacco Use Status: Former Tobacco user Quit Date: 15 years ago Years Smoked: 20 +/- on and off e-Cigarette/Vaping Use: Never Used Second Hand Smoke Exposure: No Advance Directives Date on File: 08/28/21 service: No Current occupational status: retired Current occupation: right handed Cognitive needs: No Hearing needs: No Vision needs: Yes Physical Exam Vital Signs: Vital Signs: Last Vital Signs Temp 98.3 F 01/06/23 01:08 Resp 19 01/06/23 01:37 O2 Del Method Room Air 01/06/23 01:08 BMI result Body Mass Index 38.8 Const: General: cooperative and no acute distress Or ientation/consciousness: oriented to person and oriented to place Limitat ions: no limitations HEENT: Head: Yes normal to inspection, Yes normocephalic and Yes atraumatic Ears: external ears normal General nose exam: Normal external nose present Face and sinus: Yes normal facial exam Mouth: Normal oral and palatal mucosa present Throat: Yes posterior oropharynx normal Eyes: General: appearance normal, both eyes and all related structures Pupils: Equal, round and reactive pupils present Neck: Neck: Yes normal visual inspection, Yes no lymphadenopathy, Yes trachea midline and Yes supple Chest: Other: Patient has moderate left anterior chest and left lateral chest wall tenderness Resp: Effort & Inspection: normal respiratory effort and able to speak in complete sentences Auscultation: clear to auscultation bilaterally Cardio: Rate: regular rate Rhythm: regular rhythm Heart sounds: S1 normal heart sound present, S2 normal heart sound present and no murmurs GI: Inspection: Yes normal to inspection Palpation (GI): Soft to palpation, nontender and no guarding Auscultation: normal bowel sounds : General: Yes no CVA tenderness Back/Spine/Pelvis: Back: no CVA tenderness Skin: General skin exam: no rashes or lesions noted Neuro: General: oriented to person and oriented to place Cranial nerves: Yes CN's II-XII intact bilaterally and Yes Equal, round and reactive pupils present Cognition (Neuro): normal cognition Motor exam (neuro): 5/5 motor strength present throughout Extrem: General: Yes normal to inspection Psych: Appearance: grossly normal Speech and movement: Normal speech and movement present Affect: normal affect Attitude: cooperative Thought process: Normal thought process present Thought content: Normal thought content present Medications Administered Discontinued Medications Generic Name Dose Route Start Last Admin Trade Name Freq PRN Reason Stop Dose Admin Morphine Sulfate 4 mg 01/06/23 01:28 01/06/23 01:37 Morphine Sulfate 4 Mg/Ml Cartridge IVPUSH 01/06/23 01:29 4 mg ONCE STA Administration Protocol Medical Decision Making Medical Decision Making MDM Narrative: 82-year-old female who presents emergency department for evaluation of left- sided anterior chest and left lateral chest pain which she has had since sustaining an NSTEMI on 12/28/2022. Patient states that the pain is been constant since being discharged from the hospital on 12/31/2022. She was seen in the emergency department on 01/03/2023 with similar pain. Patient's pain got worse this evening so she came to the emergency department for evaluation. Physical examination did reveal left anterior chest and left lateral chest wall tenderness. The following tests were ordered on the patient: CBC, CMP, troponin, chest x-ray one view, EKG. Patient was ordered to get morphine 4 mg IV for pain. 0144: Labs consistent with chronic kidney disease. Twelve EKG revealed new T-wave inversions V2 and V3 with new Q-wave in V1 Chest x-ray consistent with COPD, no acute findings. Troponin 51 0.1 which improved compared to 01/03/2023 suggested the patient did not have any acute myocardial injury. Patient pain improved with the 1st dose of morphine, she was given a 2nd dose of morphine 4 mg IV Patient be discharged home advised to take Tylenol 1 pill every 6 hours and for pain not relieved by Tylenol she was prescribed morphine 15 mg every 6 hours as needed for pain Differential Diagnosis Differential diagnosis includes but is not limited to myocardial infarction, myocardial ischemia, Kira syndrome, pleurisy, pulmonary embolism, pneumonia Admission/Observation Consideration of admission/observation: Escalation of care including admission/observation considered Lab Data [facility] Lab Attestation statement: I reviewed the patient's lab results. My interpretation of patient's pertinent laboratory data is as follows: Elevated BUN and creatinine of 53 and 2.56-chronic. WBC normal 10,200. Anemia with an H&H of 10.9 and 33.5-chronic. Troponin 51.1 which improved compared to 01/03/2023. 01/06/23 01:16 01/06/23 01:16 Labs: Lab Results 01/06/23 01/06/23 01/06/23 Range/Units 01:16 01:16 01:16 WBC 10.2 (4.8-10.8) X10*3/uL RBC 3.44 L (4.20-5.50) X10*6/uL Hgb 10.9 L (12.0-16.0) g/dl Hct 33.5 L (37.0-47.0) % MCV 97.4 (80.0-98.0) fL MCH 31.7 (27.0-33.0) pg MCHC 32.5 (31.0-35.0) g/dl RDW 14.7 (11.0-16.0) % Plt Count 234 (160-400) X10*3/uL MPV 10.3 (9.4-12.3) fL Immature Gran % (Auto) 1.1 H (0.0-0.4) % Neut % (Auto) 66.2 (45-73) % Lymph % (Auto) 18.8 L (20-40) % [place] % (Auto) 9.3 (2-11) % Eos % (Auto) 4.3 H (0-4) % Baso % (Auto) 0.3 (0-2) % Lymph # (Auto) 1.9 (1.2-4.9) X10*3/uL [place] # (Auto) 1.0 (0.1-1.2) X10*3/uL Eos # (Auto) 0.4 (0.0-0.4) X10*3/uL Baso # (Auto) 0.0 (0.0-0.2) X10*3/uL Abs Immat Gran (auto) 0.11 H (0.00-0.03) X10*3/uL Absolute Neuts (auto) 6.8 (2.0-8.3) x10*3/uL Absolute Nucleated RBC 0.000 (0.0-0.012) X10*3/uL Nucleated RBC % (auto) 0.0 (0.0-0.2) /100WBC Sodium 140 (135-145) mmol/L Potassium 3.5 (3.3-5.1) mmol/L Chloride 103 (96-108) mmol/L Carbon Dioxide 26 (22-29) mmol/L Anion Gap 15 (12-20) BUN 53 H (9-16) mg/dL Creatinine 2.56 H (0.5-1.4) mg/dL Estim Creat Clear Calc 17.7 Estimated GFR 18 Random Glucose 170 H (60-115) mg/dL Calcium 8.6 D (8.4-10.2) mg/dL Total Bilirubin 1.3 H (0.0-1.0) mg/dL AST 12 (5-31) U/L ALT 10 (0-31) U/L Alkaline Phosphatase 75 (39-117) U/L Troponin I High Sens 51.1 H* (<3.5-17.0) ng/L Total Protein 6.1 L (6.5-8.0) g/dL Albumin 3.2 L (3.5-5.0) g/dL Independent Interpretation I performed an independent interpretation of an: EKG Interpretation: My independent interpretation the patient's 12 EKG done at 0054 hours is as follows: Sinus rhythm with a rate of 71, first-degree AV block with a NC interval 206 milliseconds, normal QRS duration and QTC intervals, Q-wave in leads 3 and V1, inverted T-waves in leads 3, V1, V2 and V3, no ST segment elevation, no ST segment depression, compared to EKG dated 12/29/2022 Q-wave in V1 is new, inverted T-waves V2 and V3 are new My independent interpretation of the patient's chest x-ray is as follows: Cardiomegaly with increased interstitial markings consistent COPD changes Radiology Impression Discussion of test interpretation with radiology: I have reviewed the radiologis t's reading. Radiologist Impression: R chest 1V IMPRESSION: Low lung volumes without definite acute findings. Dictated By:Ulises Drew MD Independent Historian Clinical information obtained from an independent historian. History obtained from or confirmed by: Other (Daughter) External Record Review External record reviewed: Inpatient record and Other ([place] patient prescription monitoring program -multiple prescriptions for gabapentin 1 prescription for oxycodone) Prescription Management I considered prescription management with: Pain Medication Chronic Conditions Patient?s care impacted by: Other (COPD, diabetes, hypertension, chronic kidney disease) Discharge Plan Discharge Clinical Impression: Chest pain, pleuritic Patient Disposition: Home, Self-Care Instructions: Pleural Empyema (ED) Additional Instructions: Continue taking your medications as prescribed by your providers Take Tylenol (acetaminophen) 1 pills every 6 hours as needed for pain. For pain not relieved by Tylenol take morphine 15 mg pills, 1 pill every 6 hours as needed for pain. This medication will make you sleepy, do not drive or work while taking this medication. Morphine is a narcotic medication and can be addicting. If you are concerned about addiction you can ask the pharmacist for less pills or do not get this prescription filled. Follow-up with your doctor in 2 days. Please return to the emergency department if your symptoms get worse or if you develop any symptoms that are concerning to you. Prescriptions: New morphine 15 mg tablet 15 mg PO Q4-6H PRN (Reason: pain) Qty: 10 0RF Rx Instructions: The patient may ask for partial fill; Partial Fill upon patient request. No Action sodium bicarbonate 325 mg tablet 650 mg PO BID allopurinol 100 mg tablet 100 mg PO DAILY levothyroxine 100 mcg tablet 100 mcg PO DAILY@0600 citalopram 20 mg tablet 20 mg PO DAILY famotidine 20 mg tablet 20 mg PO DAILY pantoprazole 40 mg tablet,delayed release (DR/EC) 40 mg PO DAILY@0630 albuterol sulfate 90 mcg/actuation HFA aerosol inhaler 2 puff inhalation Q4-6H PRN (Reason: Shortness Of Breath Or Wheezing) guaifenesin 400 mg Tablet 800 mg PO TID cetirizine [Zyrtec] 10 mg Tablet 10 mg PO DAILY atorvastatin 20 mg Tablet 20 mg PO DAILY Qty: 90 0RF aspirin 81 mg Tablet,Delayed Release (Dr/Ec) 81 mg PO DAILY Qty: 90 0RF gabapentin 300 mg Capsule 300 mg PO DAILY Qty: 90 0RF benzonatate 100 mg Capsule 100 mg PO TID PRN (Reason: cough) Qty: 90 0RF metoprolol tartrate 25 mg tablet 12.5 mg PO BID Qty: 180 0RF
--- NOTE | 2023-01-06 01:18 | PC.NURSE ---
Pt ca&ox4, reports 9/10 left sided chest pain. Pt changed into hospital attire. EKG completed. Pt placed on bedside monitor. Provider in with pt. Dinah.
--- NOTE | 2023-01-06 01:18 | MHC.EDTECH ---
patient came in via ems ,ekg taken and was read by provider ,patient was hoked up to pvc monitor ,vitals sign taken ,blood drawn and sent to lab ,patient was change into hospital attire .
[2023-01-06 01:21] LABS: Basophils Percent Auto 0.3 % (0-2); Eosinophils Absolute Auto 0.4 X10*3/uL (0.0-0.4); Eosinophils Percent Auto 4.3 % (0-4); Hematocrit 33.5 % (37.0-47.0); Hemoglobin 10.9 g/dl (12.0-16.0); Imm Gran Abs Auto 0.11 X10*3/uL (0.00-0.03); Imm Gran Pct Auto 1.1 % (0.0-0.4); Lymphocytes Absolute Auto 1.9 X10*3/uL (1.2-4.9); Lymphocytes Percent Auto 18.8 % (20-40); MANUAL DIFF FLAG NO; Mean Corpuscular HGB Conc 32.5 g/dl (31.0-35.0); Mean Corpuscular Hemoglobin 31.7 pg (27.0-33.0); Mean Corpuscular Volume 97.4 fL (80.0-98.0); Mean Platelet Volume 10.3 fL (9.4-12.3); Monocytes Percent Auto 9.3 % (2-11); Neutrophils Absolute Auto 6.8 x10*3/uL (2.0-8.3); Neutrophils Percent Auto 66.2 % (45-73); Platelet Count 234 X10*3/uL (160-400); Red Blood Count 3.44 X10*6/uL (4.20-5.50); Red Cell Distribution Width 14.7 % (11.0-16.0); White Blood Count 10.2 X10*3/uL (4.8-10.8)
[2023-01-06] MEDS: Morphine Sulfate 4 MG/ML CARTRIDGE IVPUSH ×2 (01:37→02:25)
[2023-01-06 01:38] LABS: Alanine Aminotransferase 10 U/L (0-31); Albumin Level 3.2 g/dL (3.5-5.0); Alkaline Phosphatase 75 U/L (39-117); Anion Gap 15 (12-20); Aspartate Amino Transferase 12 U/L (5-31); Bilirubin Total 1.3 mg/dL (0.0-1.0); Blood Urea Nitrogen 53 mg/dL (9-16); Calcium 8.6 mg/dL (8.4-10.2); Carbon Dioxide 26 mmol/L (22-29); Chloride 103 mmol/L (96-108); Creatinine Clr Calc Pharmacy 17.7; Estimated Glomerular Filt Rate 18; Glucose Random 170 mg/dL (60-115); Potassium 3.5 mmol/L (3.3-5.1); Sodium 140 mmol/L (135-145); Total Protein 6.1 g/dL (6.5-8.0)
--- NOTE | 2023-01-06 01:40 | PC.NURSE ---
Pt medicated per sep. Pt's daughter at bedside. wcmaren.
[2023-01-06 01:52] LABS: Troponin-I High Sensitivity 51.1 ng/L (<3.5-17.0)
--- NOTE | 2023-01-06 02:30 | PC.NURSE ---
Pt b/p 95/36, MD aware. Per pt has had low b/p before.
== END 2023-01-06 03:04 | disposition home or self-care (01) ==
PROVIDERS: Emergency Provider Emergency Medicine Emergency Medical Services
DX: R07.89 Other chest pain (principal); R07.81 Pleurodynia; Z87.891 Personal history of nicotine dependence; Z79.899 Other long term (current) drug therapy
CPT/HCPCS: 36415; 71045; 80053; 84484; 85025; 93005; 96374; 96376; 99284; 99285; J2270

== ENCOUNTER → 2023-01-14 12:38 | Outpatient (BNVA) | payer MEDICARE, SELFPAY | PROVIDERS: Visit Provider Internal Medicine | DX: I25.10 Atherosclerotic heart disease of native coronary artery without angina pectoris (principal); I21.4 Non-ST elevation (NSTEMI) myocardial infarction; E11.22 Type 2 diabetes mellitus with diabetic chronic kidney disease; N18.4 Chronic kidney disease, stage 4 (severe) | CPT/HCPCS: 99212 ==

== ENCOUNTER → 2023-01-23 09:28 | Outpatient (REF) | payer MEDICARE, SELFPAY ==
--- NOTE | ~2023-01-23 | NM_ITS ---
Myocardial perfusion study Indication: Precordial chest pain to evaluate for myocardial ischemia Technique: The patient was brought in for a Lexiscan perfusion study on 01/23/2023. Patient performed low-level exercise and was injected 0.4 mg of Lexiscan intravenously. Within a minute of injection, 30 mCi of sestamibi was given intravenously. Images were obtained using the SPECT gamma camera interlaced with the gating device. Images were obtained in supine position. Resting perfusion study was performed on 02/10/2023. Patient was administered 30 mCi of sestamibi intravenously at rest. Images were then obtained in supine position. Images obtained with and without CT attenuation. Total DLP 173 mGy-cm/ Images were processed with the software and compared side to side in short axis, horizontal long axis and vertical long axis views. Findings: The stress perfusion study showed both attenuated as well as non attenuated images show moderate to severely reduced uptake in the apex of the LV myocardium. Remainder of the LV myocardium is normally perfused. The gated study shows normal LV systolic function with calculated LVEF of 69%. LV cavity is normal in size. The gated study shows normal systolic wall thickening and contraction of segments. Resting study shows improved uptake in the apex of the LV myocardium. Gating at rest was not performed . The findings are consistent with moderate to severe intensity apical ischemia. NM/NM cardiolite stress test Impression: 1. Myocardial perfusion imaging study shows moderate to severe intensity apical ischemia 2. Gated LVEF is 69% 3. Transient ischemic dilatation not present EKG is nondiagnostic for ischemia
--- NOTE | 2023-01-23 09:33 | CA_ITS ---
Acquisition Time: 2023-01-23 09:58:25 Total Exercise Time: 00:02:00 Test Indications: CP Medications: SEE H Protocol: LEXISCAN Max HR: 085 BPM 62% of Pred: 136 BPM Max BP: 122/060 mmHG Max Work Load: 1.0 METS Pharmacological stress test with Lexiscan injection while sitting and kicking her legs, without anginal symptoms, with isolated PVCs, with normotensive response to injection, with non-diagnostic EKGs. Nuclear images pending. Test reviewed with Dr. Jordan. Referred By: Phuc Jones Overread By: FRANCESCA JORDAN MD
== END ==
LOC: HO.CARD 09:28
PROVIDERS: Visit Provider Internal Medicine
DX: R07.2 Precordial pain (principal); I21.4 Non-ST elevation (NSTEMI) myocardial infarction; I20.9 Angina pectoris, unspecified
CPT/HCPCS: 78452; 93017; A9500; J0280; J2785

== ENCOUNTER 2023-01-23 13:30 | Inpatient (IN) | payer MEDICARE, SELFPAY ==
--- NOTE | ~2023-01-23 | US_ITS ---
EXAMINATION: US RETROPERITONEAL LIMITED (RENAL ONLY) CLINICAL INFORMATION: Acute kidney injury; question obstruction. COMPARISON: None available. TECHNIQUE: Real-time imaging of the kidneys. Imaging is limited due to body habitus and limited patient positioning. FINDINGS: RIGHT KIDNEY: 10.4 x 4.0 x 4.0 cm (SAG x AP x TRV). The kidney is normal in size, contour, and generally increased in echogenicity. Renal cortical thickness is diminished. No calculi or focal parenchymal lesions. No hydronephrosis. At the lower pole, a 4.1 cm in maximal diameter benign, simple cyst is seen. This requires no imaging follow-up. LEFT KIDNEY: 7.9 x 4.6 x 3.6 cm (SAG x AP x TRV). The kidney is normal in size, contour, and echogenicity. Renal cortical thickness is normal. No calculi or focal parenchymal lesions. No hydronephrosis. OTHER: There is cholelithiasis. US/US renal BI IMPRESSION: 1. No renal solid mass, calculi or hydronephrosis is seen bilaterally. 2. There is right renal cortical thinning and increased echotexture, which can be associated with medical renal disease. 3. A 4.1 cm benign, simple right renal cyst is seen, for which no imaging follow-up is recommended.
--- NOTE | ~2023-01-23 | XR_ITS ---
EXAMINATION: XR CHEST CLINICAL INFORMATION: Weakness COMPARISON: 02/20/2022 and 01/06/2023 TECHNIQUE: Frontal view of the chest was obtained. FINDINGS: Lungs are chronically hypoinflated. There is no radiographic worsening of the interstitial fibrosis. No acute findings. No consolidation, pneumothorax or pleural effusion. Cardiac silhouette is normal in size. The electrodes of the thoracic spinal canal are at the T9 and T10 level. XR/XR chest 1V IMPRESSION: * Chronic interstitial pulmonary fibrosis. * No acute cardiopulmonary findings.
--- NOTE | ~2023-01-23 | XR_ITS ---
EXAMINATION: XR CHEST CLINICAL INFORMATION: Hypertension, rule out pneumonia COMPARISON: 01/23/2023 TECHNIQUE: Frontal view of the chest was obtained. FINDINGS: Study limited by low lung volumes, positioning and body habitus. Heart and mediastinum likely within normal limits. There is vessel crowding and atelectasis. No definite consolidations. Mild right costophrenic angle blunting. Tiny effusion not excluded. Thoracic spinal stimulation device again identified. XR/XR chest 1V IMPRESSION: Low lung volumes limiting study. No definite consolidations. Question tiny right effusion.
[2023-01-23 14:04] VITALS: BP 120/60; PULSE 68; O2SAT 98
[2023-01-23 14:12] VITALS: BP 135/54; PULSE 65; RESP 18; TEMP 36.7; O2SAT 98; BMI 39.5
[2023-01-23 14:37] VITALS: BP 135/43; PULSE 67; RESP 15; O2SAT 94
--- NOTE | 2023-01-23 14:56 | ECG_ITS ---
Test Reason : WEAKNESS Blood Pressure : / mmHG Vent. Rate : 067 BPM Atrial Rate : 067 BPM P-R Int : 214 ms QRS Dur : 078 ms QT Int : 448 ms P-R-T Axes : 031 009 -18 degrees QTc Int : 473 ms Sinus rhythm with 1st degree A-V block Possible Inferior infarct (cited on or before 27-AUG-2021) T wave abnormality, consider anterior ischemia Abnormal ECG When compared with ECG of 06-JAN-2023 00:54, No significant change was found Referred By: Generic ED Physician Electronically Signed By:FRANCESCA HARTMANN MD
[2023-01-23 16:17] VITALS: BP 114/93; PULSE 78; RESP 14; O2SAT 94
--- NOTE | 2023-01-23 16:31 | ED_ITS ---
HPI - General Adult General Chief complaint: General Medical Stated complaint: weakness after stress test Time Seen by Provider: 01/23/23 16:06 Source: patient, RN notes reviewed and old records reviewed Mode of arrival: EMS Limitations: no limitations History of Present Illness HPI narrative: 82-year-old female with past medical history significant for chronic kidney disease, pulmonary fibrosis, COPD, CHF, coronary artery disease, recent NSTEMI month ago, diabetes, hypothyroidism, anemia presents for evaluation of generalized weakness. Patient reports that she was at a cardiology appointment today having a p harmacological stress test She reports that she completed the 1st half the stress test like she is supposed to and when she went home she was too weak to walk up 3 steps to get into her house She ended up falling backwards as her legs gave out but her daughter was with her and call her before she fell The patient reports worsening weakness for the last 4 days She denies pain at all including chest pain, abdominal pain Patient states that she has intermittent leg swelling but not currently She has a chronic dry cough unchanged from baseline She is on a oxygen, 2 L at baseline and does not feel short of breath Denies any fevers or chills Related Data Home Medications Medication Instructions Recorded Confirmed albuterol sulfate 90 mcg/actuation 2 puff inhalation Q4-6H PRN 12/28/22 01/14/23 aerosol inhaler Shortness Of Breath Or Wheezing allopurinol 100 mg tablet 100 mg PO DAILY 12/28/22 01/14/23 cetirizine 10 mg tablet (Zyrtec) 10 mg PO DAILY 12/28/22 01/14/23 citalopram 20 mg tablet 20 mg PO DAILY 12/28/22 01/14/23 famotidine 20 mg tablet 20 mg PO DAILY 12/28/22 01/14/23 levothyroxine 100 mcg tablet 100 mcg PO DAILY@0600 12/28/22 01/14/23 pantoprazole 40 mg tablet,delayed 40 mg PO DAILY@0630 12/28/22 01/14/23 release sodium bicarbonate 325 mg tablet 650 mg PO BID 12/28/22 01/14/23 guaifenesin 400 mg tablet 800 mg PO TID congestion 01/14/23 01/14/23 Previous Rx's Medication Instructions Recorded aspirin 81 mg tablet,delayed 81 mg PO DAILY #90 tabs 12/31/22 release atorvastatin 20 mg tablet 20 mg PO DAILY #90 tabs 12/31/22 gabapentin 300 mg capsule 300 mg PO DAILY #90 caps 12/31/22 metoprolol tartrate 25 mg tablet 12.5 mg PO BID #180 tabs 12/31/22 morphine 15 mg immediate release 15 mg PO Q4-6H PRN pain #10 tabs 01/06/23 tablet nitroglycerin 0.4 mg sublingual 0.4 mg sublingual Q5M PRN chest 01/14/23 tablet pain #30 tabs ranolazine 500 mg tablet,extended 500 mg PO BID 90 days #180 tabs 01/14/23 release,12 hr Allergies Allergy/AdvReac Type Severity Reaction Status Date / Time NSAIDS (Non-Steroidal Allergy Unknown Verified 01/15/23 13:50 Anti-Inflamma [id number] Reductase AdvReac Severe LEG PAIN Verified 01/15/23 13:50 Inhibitor Review of Systems Constitutional: Constitutional: Denies chills, Denies fever(s), Denies headache(s), Reports malaise and Reports weakness ENT: Denies headache(s) Cardiovascular: Cardiovascular: Denies chest pain and Reports dyspnea (No change from baseline) Respiratory: Respiratory: Reports cough and Reports dyspnea (No change from baseline) Gastrointestinal: Gastrointestinal: Denies abdominal pain, Denies constipation and Denies vomiting Genitourinary: Genitourinary: Denies dysuria Neurologic: Denies headache(s) and Reports weakness PMF Past Medical History Medical History (Updated 01/23/23 @ 17:56 by German Ashraf) Acquired hypothyroidism Cough Depression, major, recurrent Diabetes Dyslipidemia Fibromyalgia Heart murmur Interstitial lung disease Kidney failure, acute Osteoarthritis of multiple joints Respiratory failure with hypoxia Surgical History H/O hemorrhoidectomy Hx of fusion of cervical spine Hx of tonsillectomy S/P anal fissurectomy S/P appendectomy S/P partial hysterectomy Family History Family History Brother Substance use disorder Son Substance use disorder Daughter Substance use disorder Social History Social History Household Members: Family Housing: Apartment Do you presently have visiting nurse or other home services: Yes Alcohol intake: current Alcohol intake frequency: holidays/special occasions only Patient Tobacco Use Status: Former Tobacco user Quit Date: 15 years ago Years Smoked: 20 +/- on and off Smoked in Last 30 Days: No e-Cigarette/Vaping Use: Never Used Second Hand Smoke Exposure: No Use of substances other than those prescribed or required for medical reasons: No Advance Directives: Yes Advance Directives on File: Yes Advance Directives Date on File: 08/28/21 service: No Current occupational status: retired Current occupation: right handed Cognitive needs: No Hearing needs: No Vision needs: Yes Physical Exam ED Vital Signs: Vital Signs - 24 hr 01/23/23 14:12 01/23/23 14:37 01/23/23 16:17 Temperature 98.0 F Pulse Rate 65 67 78 Respiratory Rate 18 15 14 Blood Pressure 135/54 L 135/43 L 114/93 H Pulse Oximetry 98 94 94 Oxygen Delivery Method Nasal Cannula Room Air Nasal Cannula Nasal Cannula Oxygen Flow Rate 2 2 BMI result Body Mass Index 39.5 Const General: healthy appearing, comfortable, no acute distress, alert and awake Nutritional Appearance: well nourished Orientation/consciousness: patient oriented x3 HENMT Head: Yes normocephalic and Yes atraumatic Eyes Eyelids: Yes eyelids normal Conjunctivae: conjunctivae normal Sclerae: sclerae normal Corneas: corneas normal Pupils: Equal, round and reactive pupils present EOM: EOMs intact bilaterally Neck Neck: Yes full ROM Resp Effort & Inspection: normal respiratory effort, able to speak in complete sentences, no audible wheezes and not labored Auscultation: clear to auscultation bilaterally (However diminished throughout) Cardio Other: No significant lower extremity edema Rate: regular rate Rhythm: regular rhythm GI Inspection: No distended Palpation (GI): Soft to palpation, not firm, nontender, no guarding and not rigid Skin General skin exam: no rashes or lesions noted and elasticity normal Neuro General: patient oriented x3 Cranial nerves: Yes Equal, round and reactive pupils present and Yes Bilaterally intact EOM present Cognition (Neuro): normal cognition Extrem Other: Moving all extremities well without any obvious deformities Medical Decision Making Medical Decision Making MDM Narrative: 82-year-old female presents for evaluation of generalized weakness over the last 4 days. She is quite well appearing denies any more focal symptoms. Denies any pain including chest pain. She reports a chronic cough and chronic shortness of breath both unchanged from baseline. Will check basic labs, chest x-ray, UA to evaluate for metabolic cause. The patient likely has failure to thrive as a diagnosis. Differential Diagnosis Failure to thrive NSTEMI Coronary artery disease CHF COPD Interstitial fibrosis Pneumonia UTI DEVIN Admission/Observation Consideration of admission/observation: Escalation of care including admission/observation considered Lab Data MDM Lab Attestation statement: I reviewed the patient's lab results. Patient has a baseline chronic anemia, no leukocytosis or left shift. She has poor renal function at baseline but her creatinine of 2.2 weight is actually slightly improved from baseline. No significant electrolyte abnormalities 01/23/23 17:19 01/23/23 17:10 Labs: Lab Results 01/23/23 01/23/23 01/23/23 Range/Units 17:10 17:10 17:19 WBC 6.8 (4.8-10.8) X10*3/uL RBC 3.19 L (4.20-5.50) X10*6/uL Hgb 10.0 L (12.0-16.0) g/dl Hct 31.7 L (37.0-47.0) % MCV 99.4 H (80.0-98.0) fL MCH 31.3 (27.0-33.0) pg MCHC 31.5 (31.0-35.0) g/dl RDW 14.5 (11.0-16.0) % Plt Count 252 (160-400) X10*3/uL MPV 10.0 (9.4-12.3) fL Immature Gran % (Auto) 0.4 (0.0-0.4) % Neut % (Auto) 65.7 (45-73) % Lymph % (Auto) 21.0 (20-40) % [place] % (Auto) 6.9 (2-11) % Eos % (Auto) 5.7 H (0-4) % Baso % (Auto) 0.3 (0-2) % Lymph # (Auto) 1.4 (1.2-4.9) X10*3/uL [place] # (Auto) 0.5 (0.1-1.2) X10*3/uL Eos # (Auto) 0.4 (0.0-0.4) X10*3/uL Baso # (Auto) 0.0 (0.0-0.2) X10*3/uL Abs Immat Gran (auto) 0.03 (0.00-0.03) X10*3/uL Absolute Neuts (auto) 4.5 (2.0-8.3) x10*3/uL Absolute Nucleated RBC 0.000 (0.0-0.012) X10*3/uL Nucleated RBC % (auto) 0.0 (0.0-0.2) /100WBC Sodium 138 (135-145) mmol/L Potassium 4.3 D (3.3-5.1) mmol/L Chloride 100 (96-108) mmol/L Carbon Dioxide 28 (22-29) mmol/L Anion Gap 14 (12-20) BUN 28 H (9-16) mg/dL Creatinine 2.28 H (0.5-1.4) mg/dL Estim Creat Clear Calc 20.1 Estimated GFR 20 Random Glucose 90 (60-115) mg/dL Calcium 8.8 (8.4-10.2) mg/dL Total Bilirubin 0.9 (0.0-1.0) mg/dL AST 16 (5-31) U/L ALT 7 (0-31) U/L Alkaline Phosphatase 99 (39-117) U/L Troponin I High Sens 14.2 D (<3.5-17.0) ng/L Total Protein 6.4 L (6.5-8.0) g/dL Albumin 3.1 L (3.5-5.0) g/dL Independent Interpretation I performed an independent interpretation of an: EKG (Sinus rhythm with a first- degree AV block. Rate is 67 beats per minute. No significant change when compared to previous from January 06, 2023) and Plain X-Ray (Chronic changes without focal infiltrate) Radiology Impression Discussion of test interpretation with radiology: I have reviewed the radiologist's reading. (Pulmonary fibrosis without acute findings) Discharge Plan Discharge Clinical Impression: Weakness Patient Disposition: Still a Patient Prescriptions: No Action sodium bicarbonate 325 mg tablet 650 mg PO BID allopurinol 100 mg tablet 100 mg PO DAILY levothyroxine 100 mcg tablet 100 mcg PO DAILY@0600 citalopram 20 mg tablet 20 mg PO DAILY famotidine 20 mg tablet 20 mg PO DAILY pantoprazole 40 mg tablet,delayed release (DR/EC) 40 mg PO DAILY@0630 albuterol sulfate 90 mcg/actuation HFA aerosol inhaler 2 puff inhalation Q4-6H PRN (Reason: Shortness Of Breath Or Wheezing) cetirizine [Zyrtec] 10 mg Tablet 10 mg PO DAILY atorvastatin 20 mg Tablet 20 mg PO DAILY Qty: 90 0RF aspirin 81 mg Tablet,Delayed Release (Dr/Ec) 81 mg PO DAILY Qty: 90 0RF gabapentin 300 mg Capsule 300 mg PO DAILY Qty: 90 0RF metoprolol tartrate 25 mg tablet 12.5 mg PO BID Qty: 180 0RF guaifenesin 400 mg tablet 800 mg PO TID morphine 15 mg tablet 15 mg PO Q4-6H PRN (Reason: pain) Qty: 10 0RF Rx Instructions: The patient may ask for partial fill; Partial Fill upon patient request. ranolazine 500 mg tablet extended release 12 hr 500 mg PO BID 90 Days Qty: 180 3RF nitroglycerin 0.4 mg tablet, sublingual 0.4 mg sublingual Q5M PRN (Reason: chest pain) Qty: 30 5RF Rx Instructions: do not exceed 3 doses per episode
--- NOTE | 2023-01-23 16:40 | PC.NURSE ---
very difficult stick. unable to get iv. tech will attempt labsonly.
[2023-01-23 17:26] LABS: Basophils Percent Auto 0.3 % (0-2); Monocytes Percent Auto 6.9 % (2-11); PLT CLUMP 1; Red Cell Distribution Width 14.5 % (11.0-16.0); SCAN SMEAR FLAG 1
[2023-01-23 17:28] LABS: Eosinophils Absolute Auto 0.4 X10*3/uL (0.0-0.4); Eosinophils Percent Auto 5.7 % (0-4); Hematocrit 31.7 % (37.0-47.0); Imm Gran Abs Auto 0.03 X10*3/uL (0.00-0.03); Imm Gran Pct Auto 0.4 % (0.0-0.4); Lymphocytes Absolute Auto 1.4 X10*3/uL (1.2-4.9); Mean Corpuscular HGB Conc 31.5 g/dl (31.0-35.0); Mean Corpuscular Hemoglobin 31.3 pg (27.0-33.0); Mean Corpuscular Volume 99.4 fL (80.0-98.0); Monocytes Absolute Auto 0.5 X10*3/uL (0.1-1.2); Neutrophils Absolute Auto 4.5 x10*3/uL (2.0-8.3); Neutrophils Percent Auto 65.7 % (45-73); Red Blood Count 3.19 X10*6/uL (4.20-5.50)
[2023-01-23 17:29] LABS: Alanine Aminotransferase 7 U/L (0-31); Albumin Level 3.1 g/dL (3.5-5.0); Alkaline Phosphatase 99 U/L (39-117); Anion Gap 14 (12-20); Aspartate Amino Transferase 16 U/L (5-31); Bilirubin Total 0.9 mg/dL (0.0-1.0); Blood Urea Nitrogen 28 mg/dL (9-16); Calcium 8.8 mg/dL (8.4-10.2); Carbon Dioxide 28 mmol/L (22-29); Chloride 100 mmol/L (96-108); Creatinine Clr Calc Pharmacy 20.1; Estimated Glomerular Filt Rate 20; Glucose Random 90 mg/dL (60-115); Potassium 4.3 mmol/L (3.3-5.1); Sodium 138 mmol/L (135-145); Total Protein 6.4 g/dL (6.5-8.0)
[2023-01-23 17:35] LABS: Troponin-I High Sensitivity 14.2 ng/L (<3.5-17.0)
[2023-01-23 17:46] LABS: MANUAL DIFF FLAG NO; Platelet Count 252 X10*3/uL (160-400); White Blood Count 6.8 X10*3/uL (4.8-10.8)
[2023-01-23 18:05] VITALS: BP 114/93; PULSE 78; RESP 25; O2SAT 95
[2023-01-23 18:17] LABS: Appearance Urine Clear; Color Urine Yellow; Glucose Urine UA Negative (Negative); Leukocyte Esterase Urine Negative (Negative); Nitrite Urine Negative (Negative); PH 7.5 (5.0-9.0); Specific Gravity - Urine <= 1.005 (1.005-1.025); Urine Blood Negative (Negative); Urine Ketones Negative (Negative); Urine Protein Negative (Neg-Trace)
--- NOTE | 2023-01-23 18:37 | PC.NURSE ---
late entry fpr aprox 1800. pt transfered to [facility]. was very unsteady, general weakness during transfer. poor balance. refuses to wear slippers. no SOB. urinated over 900ml. 2 person assist back to bed.
[2023-01-23 20:24] VITALS: BP 116/44; PULSE 72; RESP 18; TEMP 36.9; O2SAT 95
--- NOTE | 2023-01-23 20:35 | PC.NURSE ---
Assumed care of pt. Pt noemi garcía, no acute distress at this time. Family at bedside. Pt planned for CM/PT, aware of POC> VSS at this time. Chaning VS for Q8 for CM.
--- NOTE | 2023-01-23 21:32 | MHC.CM.ED ---
Addendum entered by Tressa Siddiqui 01/23/23 21:44: Pt [facility] [employer] is active [id number]. Local referrals placed that contract with [facility]. Original Note: CM met with patient at request of Jose Owens&Ox4. Lives with granddaughter in an in law apartment. Great Granddaughter cares for her. Recently hospitalized at [facility] for NSTEMI on 12/28-12/31. Medicare qualifying stay. Was discharge with home PT through [facility] and continued services for home oxygen from [facility]. Increasing weakness since discharge with fall today. Pt doesn't feel safe to go home. Uses a cane. [employer] x2/booster x2. HCP on file. Has [employer] Medicare Advantage. Pt tells CM she recently qualified for [employer]. D/C plan: STR pending PT recommendations and insurance approval. Will need transportation. CM will follow for discharge planning.
--- NOTE | 2023-01-24 03:42 | PC.NURSE ---
Pt endorsing mild sacral pain from lying on stretcher, repositioned for comfort.
[2023-01-24 04:29] VITALS: BP 138/47; PULSE 78; RESP 18; TEMP 37; O2SAT 95
--- NOTE | 2023-01-24 04:31 | MHC.EDTECH ---
Vitals taken and belongings list done
--- NOTE | 2023-01-24 06:32 | MHC.EDTECH ---
Pt was incont of a large amount of urine, pt was cleaned and repositioned, Purewick in place to keep pt clean and dry. Call barros within reach
[2023-01-24 07:40] VITALS: BP 138/47; PULSE 78; O2SAT 95
--- NOTE | 2023-01-24 07:49 | PC.NURSE ---
assumed care of this pt at 0700. pt assisted with bed cm. no complaints.
--- NOTE | 2023-01-24 09:02 | PC.NURSE ---
called pharmacy waiting for med rec to be verified/completed for morning meds.
--- NOTE | 2023-01-24 09:53 | PC.NURSE ---
0800 meds not given d/t not verified by pharmacy. will administer once verified.
--- NOTE | 2023-01-24 10:35 | PHA.MEDREC ---
Pharmacy Consult ? Medication Reconciliation Pharmacy has completed the medication reconciliation. Spoke to patient to confirm meds. Patient tells me that they take pramipexole 0.25 mg every other day for RLS, however thier provider had stopped the medication due to her kidney failure.
[2023-01-24] MEDS: Gabapentin 300 MG CAPSULE PO (11:07)
[2023-01-24] MEDS: Aspirin Enteric Coated 81 MG TABLET.DR PO (11:07)
[2023-01-24] MEDS: Metoprolol Tartrate 12.5 MG HALFTAB PO (11:07)
[2023-01-24] MEDS: Levothyroxine Sodium 100 MCG TABLET PO (11:07)
[2023-01-24] MEDS: Famotidine 20 MG TABLET PO (11:08)
[2023-01-24] MEDS: Loratadine 10 MG TABLET PO (11:08)
--- NOTE | 2023-01-24 11:15 | PC.NURSE ---
pt medicated per SEP, reporting 8/10 pain/neuropathy in bilateral feet, pharmacy contacted for outstanding medication. pt provided with hot coffee.
[2023-01-24 11:19] VITALS: BP 155/47; PULSE 80; RESP 19; TEMP 37.2; O2SAT 97
[2023-01-24] MEDS: Ranolazine 500 MG TAB.ER.12H PO ×2 (11:39→20:21)
--- NOTE | 2023-01-24 12:34 | MHC.CM.ED ---
Patient remains in ER. Physical therapy eval completed. Short term rehab is recommended. The following facilities are able to offer a bed: [facility], [facility], [facility], [facility], [facility]. Met with patient in regards to facility choices. Patient wants to speaak with her daughter about facility decisions. Her daughter will not be available today. Patient will speak to her daughter as soon as she can. Patient has [facility]. Insurance auth will not be able to be obtained before Thursday. Patient aware. Patient will need [facility] PASRR Level 2 due to recurrent major depression. T/W already submitted for this. Continue to monitor for d/c needs.
[2023-01-24 13:27] LABS: COVID-19 Test Negative (Negative); IDNOW Serial# BCCEAD1C
[2023-01-24 15:46] VITALS: BP 128/47; PULSE 70; RESP 17; O2SAT 96
[2023-01-24 16:48] LABS: Glucose, Whole Blood 108 mg/dL (60-115)
--- NOTE | 2023-01-24 18:25 | PC.NURSE ---
Pt arrive from ED at ~1630. A/Ox3. Slid into bed from stretcher. Awaiting rehab placement
--- NOTE | 2023-01-24 19:38 | PC.NURSE ---
patient received in bed with eyes open patient have no distress at this time patient was encouraged to open up to staff if any issues should occur safety will continue to be monitored for safety
[2023-01-24 19:43] VITALS: BP 124/56; PULSE 74; RESP 18; TEMP 36.9; O2SAT 96
--- NOTE | 2023-01-24 19:48 | MHC.EDTECH ---
This tech assumed care at 1900 vitals where taken pt resting comfortably in bed call barros within reach
[2023-01-24] MEDS: Sodium Bicarbonate 650 MG TABLET PO (20:06)
[2023-01-24] MEDS: Atorvastatin Calcium 20 MG TABLET PO (20:06)
--- NOTE | 2023-01-24 23:16 | MHC.EDTECH ---
pt was a 2 assist to commode pt had a large BM soft and brown and had a small amount of urine pt was cleaned and placed back into bed call barros within reach.
--- NOTE | 2023-01-25 00:47 | PC.NURSE ---
patent in bed with eyes closed patient vitals are stable at this time patient will continue to be monitored for safety
--- NOTE | 2023-01-25 02:13 | MHC.EDTECH ---
Completed hourly rounds,pt is sleeping and resp. rate are within normal limits.
[2023-01-25 06:01] VITALS: BP 137/62; PULSE 78; RESP 18; TEMP 37.1; O2SAT 95
[2023-01-25] MEDS: Omeprazole 20 MG CAPSULE.DR PO (06:05)
[2023-01-25] MEDS: Levothyroxine Sodium 100 MCG TABLET PO (06:09)
--- NOTE | 2023-01-25 06:09 | PC.NURSE ---
Patient received all medications with no issues patient will continue to be monitored for safety
--- NOTE | 2023-01-25 07:09 | PC.NURSE ---
resumed care of patient, she is currently resting in bed, all needs met at this time, personal items and call barros within reach. Will maintain safety at this time
[2023-01-25] MEDS: Loratadine 10 MG TABLET PO (08:14)
[2023-01-25] MEDS: Sodium Bicarbonate 650 MG TABLET PO ×2 (08:14→20:24)
[2023-01-25] MEDS: Aspirin Enteric Coated 81 MG TABLET.DR PO (08:14)
[2023-01-25] MEDS: Gabapentin 300 MG CAPSULE PO (08:14)
[2023-01-25] MEDS: Escitalopram Oxalate 10 MG TABLET PO (08:14)
[2023-01-25] MEDS: Metoprolol Tartrate 12.5 MG HALFTAB PO (08:14)
[2023-01-25] MEDS: Famotidine 20 MG TABLET PO (08:14)
[2023-01-25] MEDS: Ranolazine 500 MG TAB.ER.12H PO ×2 (09:00→20:24)
[2023-01-25] MEDS: Morphine Sulfate Immed Release 15 MG TABLET PO ×2 (09:02→13:56)
[2023-01-25] MEDS: Benzonatate 100 MG CAPSULE PO ×2 (09:05→13:56)
--- NOTE | 2023-01-25 10:27 | PC.NURSE ---
Staff able to transfer pt into w/c, and then into shower, staff to assist pt in shower with bathing/dressing. O2 remains in place at this time. Pt increased 1L to 3L with activity, baseline 2L at rest
--- NOTE | 2023-01-25 10:42 | MHC.CM.ED ---
Patient remains in ER overflow. [facility] is 1st choice. [facility] has been asked to go for insurance auth on Thursday. [facility] PASRR Level 2 already obtained. Continue to monitor for d/c needs.
[2023-01-25 14:00] VITALS: BP 87/43; PULSE 73; RESP 20; O2SAT 98
[2023-01-25 14:23] LABS: Glucose, Whole Blood 157 mg/dL (60-115)
[2023-01-25 14:52] VITALS: BP 96/58
[2023-01-25 15:58] VITALS: BP 122/57; PULSE 74; RESP 18; TEMP 36.8; O2SAT 95
--- NOTE | 2023-01-25 16:01 | MHC.EDTECH ---
THIS PCT ASSUMED CARE OF PATIENT AT 1530 ,PATIENT WAS ASSISTED BACK INTO BED FROM BEDSIDE COMMODE ,VITALS SIGN TAKEN ,PATIENT NAPPING .
[2023-01-25 20:00] VITALS: BP 102/51; PULSE 80; TEMP 36.9; O2SAT 95
[2023-01-25] MEDS: Atorvastatin Calcium 20 MG TABLET PO (20:24)
[2023-01-26] VITALS (7 sets, daily range): BP systolic 101–124; BP diastolic 38–70; PULSE 66–96; RESP 16–24; TEMP 36.1–36.8; O2SAT 87–95
[2023-01-26] MEDS: Omeprazole 20 MG CAPSULE.DR PO (05:38)
--- NOTE | 2023-01-26 06:22 | MHC.EDTECH ---
0600 ROUNDING DONE .VITALS SIGN TAKEN ,PATIENT WAS DRY ALL NIGHT ,SLEPT ALL NIGHT ,PATIENT WAS REPOSITION AND BOOSTED UP IN BED ,WARM BLANKET GIVEN .
[2023-01-26] MEDS: Sodium Bicarbonate 650 MG TABLET PO ×2 (08:18→21:06)
[2023-01-26] MEDS: Famotidine 20 MG TABLET PO (08:18)
[2023-01-26] MEDS: Levothyroxine Sodium 100 MCG TABLET PO (08:18)
[2023-01-26] MEDS: Ranolazine 500 MG TAB.ER.12H PO ×2 (08:18→21:06)
[2023-01-26] MEDS: Gabapentin 300 MG CAPSULE PO (08:18)
[2023-01-26] MEDS: Loratadine 10 MG TABLET PO (08:18)
[2023-01-26] MEDS: Aspirin Enteric Coated 81 MG TABLET.DR PO (08:18)
[2023-01-26] MEDS: Escitalopram Oxalate 10 MG TABLET PO (08:18)
--- NOTE | 2023-01-26 08:40 | PC.NURSE ---
Addendum entered by Lindsey Scott 01/26/23 09:59: L ANTERIOR FOOT SLIGHT REDNESS/SWELLING. PT REFUSED PRN PAIN MEDS AT THIS TIME. Original Note: PT IS A/O X 3, NO SOB/PARAM NOTED. PT IS 02 AT 3L/M VIA N/C. 02 SAT 93%. OCCASIONAL PROD COUGH NOTED. LUNGS - DIMINISHED. BS + X 4 ABD SOFT AND NON-TENDER. PT C/O ASHLEY LEGS 8/10 PAIN. PT AWARE OF PLAN OF CARE.
--- NOTE | 2023-01-26 09:02 | PC.NURSE ---
PT AT BEDSIDE, PT AWARE OF PLAN OF CARE.
[2023-01-26] MEDS: Benzonatate 100 MG CAPSULE PO (11:39)
[2023-01-26] MEDS: Albuterol Sulfate 90 MCG 8 GM INHALER 2 PUFF INHALE (11:39)
--- NOTE | 2023-01-26 12:32 | MHC.CM.ED ---
Addendum entered by Kanika Montero 01/26/23 15:06: Insurance auth obtained. Patient will leave for [facility] from [facility] via BLS 01/27 at 1030am. Patient, Lindsey RN and Latanya YEE aware. Attempted to let patient's daughter, Evie, know via telephone at [phone]. Left message requesting return telephone call. Original Note: Patient remains in ER overflow. [facility] is in the process of obtaining insurance auth. Continue to monitor fro d/c needs.
--- NOTE | 2023-01-26 14:00 | PC.NURSE ---
PT HAS INCREASE SHAKING TO GEN BODY. PT STATES THAT THIS IS NEW WHICH STARTED ABOUT A WEEK A GO. MLP AWARE.
--- NOTE | 2023-01-26 15:07 | PC.NURSE ---
PT TO GO TO [facility] [place] TOMORROW (01/27/23) AT 1030 PER CASE MANAGEMENT. PT IS AWARE.
[2023-01-26 15:19] LABS: Glucose, Whole Blood 95 mg/dL (60-115)
--- NOTE | 2023-01-26 15:35 | MHC.EDTECH ---
Phlebotomy called for lab work, RN aware.
--- NOTE | 2023-01-26 17:30 | PC.NURSE ---
PT WAS BLADDER SCANNED FOR ZERO URINE. PT'S GROIN AND LABIA IS RED AND EXCORIATED WITH SLIGHT ODOR. MLP AWARE.
--- NOTE | 2023-01-26 17:49 | PC.NURSE ---
PT HAS 3 FAMILY MEMBER AT BEDSIDE VISITING.
--- NOTE | 2023-01-26 18:11 | PC.NURSE ---
PT HAS REFUSED PAIN MED X 2 TODAY FOR ASHLEY FEET PAIN.
[2023-01-26 19:03] LABS: Anion Gap 18 (12-20); Blood Urea Nitrogen 41 mg/dL (9-16); Carbon Dioxide 24 mmol/L (22-29); Chloride 97 mmol/L (96-108); Creatinine Clr Calc Pharmacy 8.8; Estimated Glomerular Filt Rate 8; Glucose Random 144 mg/dL (60-115); Potassium 4.8 mmol/L (3.3-5.1); Sodium 134 mmol/L (135-145)
--- NOTE | 2023-01-26 19:03 | PC.NURSE ---
REPORT GIVEN TO RN.
--- NOTE | 2023-01-26 19:33 | PM.IMHP ---
History of Present Illness Date of Service: 01/26/23 Chief Complaint: DEVIN This is a 82-year-old female with pertinent history of hypothyroidism, essential hypertension, restless leg syndrome, chronic hypoxemic respiratory failure due to interstitial lung disease, congestive heart failure with preserved ejection fraction, coronary artery disease who initially presented to the ER on 01/23 for generalized weakness and was kept in the ER for case management. As per nursing reports, patient was having decreased urine output and BMP she was noted to have elevated creatinine and hospital medicine team consulted for admission on 01/26. Patient denies any new symptoms at the time of my evaluation. She denies abdominal discomfort, dysuria, urgency or hesitancy. Nursing reported decreased urine output and nothing on bladder scan. No fever, chills, chest discomfort, palpitations, shortness of breath, abdominal pain, changes in bowel habits. Of note, patient recently admitted and discharged on 12/31 with NSTEMI. Review of Systems Constitutional: Constitutional: Reports no additional constitutional complaints Cardiovascular: Cardiovascular: Reports no additional cardiovascular complaints Respiratory: Respiratory: Reports no additional respiratory complaints Gastrointestinal: Gastrointestinal: Reports no additional gastrointestinal complaints Genitourinary: Genitourinary: Reports no additional female genitourinary complaints [facility] Medical History Acquired hypothyroidism Cough Depression, major, recurrent Diabetes Dyslipidemia Fibromyalgia Heart murmur Interstitial lung disease Kidney failure, acute Osteoarthritis of multiple joints Respiratory failure with hypoxia Family History Brother Substance use disorder Son Substance use disorder Daughter Substance use disorder Surgical History H/O hemorrhoidectomy Hx of fusion of cervical spine Hx of tonsillectomy S/P anal fissurectomy S/P appendectomy S/P partial hysterectomy Social History Household Members: Family Housing: Apartment Do you presently have visiting nurse or other home services: Yes Alcohol intake: current Alcohol intake frequency: holidays/special occasions only Patient Tobacco Use Status: Former Tobacco user Quit Date: 15 years ago Years Smoked: 20 +/- on and off Smoked in Last 30 Days: No e-Cigarette/Vaping Use: Never Used Second Hand Smoke Exposure: No Use of substances other than those prescribed or required for medical reasons: No Advance Directives: Yes Advance Directives on File: Yes Advance Directives Date on File: 08/28/21 service: No Current occupational status: retired Current occupation: right handed Cognitive needs: No Hearing needs: No Vision needs: Yes Meds Allergies Allergy/AdvReac Type Severity Reaction Status Date / Time NSAIDS (Non-Steroidal Allergy Unknown Verified 01/15/23 13:50 Anti-Inflamma [id number] Reductase AdvReac Severe LEG PAIN Verified 01/15/23 13:50 Inhibitor Active Medications: Current Medications Albuterol Sulfate (Albuterol Sulfate 90 Mcg 8 Gm Inhaler) 2 puff INHALE Q4H PRN PRN Reason: Shortness Of Breath Or Wheezing Last Admin: 01/26/23 11:39 Dose: 2 puff Aspirin (Aspirin Enteric Coated 81 Mg Tablet.) 81 mg PO DAILY [facility] Last Admin: 01/26/23 08:18 Dose: 81 mg Atorvastatin Calcium (Atorvastatin Calcium 20 Mg Tablet) 20 mg PO BEDTIME [facility] Last Admin: 01/25/23 20:24 Dose: 20 mg Benzonatate (Benzonatate 100 Mg Capsule) 100 mg PO TID PRN PRN Reason: cough Last Admin: 01/26/23 11:39 Dose: 100 mg Escitalopram Oxalate (Escitalopram Oxalate 10 Mg Tablet) 10 mg PO DAILY [facility] Last Admin: 01/26/23 08:18 Dose: 10 mg Famotidine (Famotidine 20 Mg Tablet) 20 mg PO DAILY [facility] Last Admin: 01/26/23 08:18 Dose: 20 mg Gabapentin (Gabapentin 300 Mg Capsule) 300 mg PO DAILY [facility] Last Admin: 01/26/23 08:18 Dose: 300 mg Levothyroxine Sodium (Levothyroxine Sodium 100 Mcg Tablet) 100 mcg PO DAILY@0600 [facility] Last Admin: 01/26/23 08:18 Dose: 100 mcg Loratadine (Loratadine 10 Mg Tablet) 10 mg PO DAILY [facility] Last Admin: 01/26/23 08:18 Dose: 10 mg Metoprolol Tartrate (Metoprolol Tartrate 12.5 Mg Halftab) 12.5 mg PO BID [facility]; Protocol Last Admin: 01/25/23 08:14 Dose: 12.5 mg Morphine Sulfate (Morphine Sulfate Immed Release 15 Mg Tablet) 15 mg PO Q4H PRN PRN Reason: Pain, Severe (Pain Scale 7-10) Last Admin: 01/25/23 13:56 Dose: 15 mg Nitroglycerin (Nitroglycerin 0.4 Mg Tab.Subl) 0.4 mg SUBLINGUAL Q5M PRN PRN Reason: chest pain Nystatin (Nystatin Powder 15 Gm Bottle) 1 appl TOPICAL BID [facility]; Protocol Omeprazole (Omeprazole 20 Mg Capsule.Dr) 20 mg PO DAILY@06 [facility] Last Admin: 01/26/23 05:38 Dose: 20 mg Ranolazine (Ranolazine 500 Mg Tab.Er.12h) 500 mg PO BID [facility] Last Admin: 01/26/23 08:18 Dose: 500 mg Sodium Bicarbonate (Sodium Bicarbonate 650 Mg Tablet) 650 mg PO BID [facility] Last Admin: 01/26/23 08:18 Dose: 650 mg Home Medications Medication Instructions Recorded Confirmed Last Taken Type albuterol sulfate 90 mcg/actuation 2 puff inhalation Q4-6H PRN 12/28/22 01/24/23 Unknown History aerosol inhaler Shortness Of Breath Or Wheezing allopurinol 100 mg tablet 100 mg PO DAILY 12/28/22 01/23/23 01/23/23 09:00 History cetirizine 10 mg tablet (Zyrtec) 10 mg PO DAILY 12/28/22 01/23/23 01/23/23 09:00 History citalopram 20 mg tablet 20 mg PO DAILY 12/28/22 01/23/23 01/23/23 09:00 History famotidine 20 mg tablet 20 mg PO DAILY 12/28/22 01/23/23 01/23/23 09:00 History levothyroxine 100 mcg tablet 100 mcg PO DAILY@0612/28/22 01/24/23 01/23/23 06:00 History pantoprazole 40 mg tablet,delayed 40 mg PO DAILY@30 12/28/22 01/24/23 01/23/23 06:30 History release sodium bicarbonate 325 mg tablet 650 mg PO BID 12/28/22 01/23/23 01/23/23 09:00 History guaifenesin 400 mg tablet 800 mg PO TID congestion 01/14/23 01/23/23 01/23/23 09:00 History benzonatate 100 mg capsule 100 mg PO TID PRN cough 01/23/23 01/24/23 Unknown History morphine 15 mg immediate release 15 mg PO Q4-6H PRN pain 01/23/23 01/24/23 Unknown History tablet atorvastatin 20 mg tablet 20 mg PO BEDTIME 01/24/23 01/24/23 01/22/23 History Physical Exam Vital Signs and Narrative: Vital Signs: Last Vital Signs Temp 97.9 F 01/26/23 17:38 Pulse 86 01/26/23 17:38 Resp 16 01/26/23 17:38 BP 101/65 01/26/23 17:38 Pulse Ox 92 01/26/23 17:38 O2 Del Method Nasal Cannula 01/26/23 17:38 O2 Flow Rate 3 01/26/23 17:38 Oxygen Flow Rate 2 01/23/23 14:12 BMI result Body Mass Index 39.5 Elderly female lying in bed on supplemental oxygen Neck supple, no JVD Regular rate and rhythm, S1-S2 heard Decreased breath sounds bilaterally with crackles Abdomen soft nontender, no guarding, no rigidity Patient is awake, alert and oriented to self, place, time and person ; no focal motor deficit Psych: Normal mood No pedal edema Results Labs 01/23/23 17:19 01/26/23 18:38 Labs: Laboratory Results - last 24 hr 01/26/23 01/26/23 15:16 18:38 Anion Gap 18 Estim Creat Clear Calc 8.8 Estimated GFR 8 POC Glucose 95 Random Glucose 144 H Calcium 8.0 L D Assessment and Plan (1) DEVIN (acute kidney injury): Status: Acute Plan This is a 82-year-old female with pertinent history of hypothyroidism, essential hypertension, restless leg syndrome, chronic hypoxemic respiratory failure due to interstitial lung disease, congestive heart failure with preserved ejection fraction, coronary artery disease who is being admitted for DEVIN on CKD #. DEVIN on CKD, unclear etiology. UA including urine studies pending. 500 cc ordered by ER provider, monitor urine output and avoid nephrotoxins. Consulting Nephrology, appreciate assistance. Ordered renal ultrasound. #. CAD. On beta-michael, statin and aspirin #. Hypothyroidism. On Synthroid #. Restless leg syndrome. On gabapentin #. Chronic hypoxic respiratory failure due to interstitial lung disease. On 3 L at baseline #. Congestive heart failure on preserved ejection fraction. Not on Lasix at home #. Morbid obesity. Counseled regarding diet and exercise DVT prophylaxis: Heparin Low-salt diet DNR/DNI Will admit as inpatient for close monitoring of renal function. Specialist consult pending Time Spent With Patient Time: Total time managing care of this patient today ____ minutes. Quality Stroke Does the patient have a stroke diagnosis?: No VTE Prior VTE?: No VTE Risk Level:: Medical - moderate - high VTE Device Contraindication: Treatment Not Indicated VTE Drug Contraindication: N/A - Med Ordered
[2023-01-26] MEDS: 0.9 % Sodium Chloride 500 ML 999 ML IV (19:35)
[2023-01-26] MEDS: Heparin Sodium,Porcine 5,000 UNIT/ML VIAL 5000 UNIT SUBCUT (21:04)
[2023-01-26] MEDS: Atorvastatin Calcium 20 MG TABLET PO (21:06)
--- NOTE | 2023-01-26 21:07 | MHC.EDTECH ---
Patient repositioned,VSS. Patient put on bedpan, labia and abd folds red and excoriated. Pt cleaned with periwash and barrier cream applied. ABD pads place in folds to absorb moisture.
[2023-01-27] VITALS (9 sets, daily range): BP systolic 82–116; BP diastolic 28–58; PULSE 73–84; RESP 14–20; TEMP 36.1–37.2; O2SAT 90–95; BMI 39.7
[2023-01-27] MEDS: 0.9 % Sodium Chloride Flush 3 ML SYRINGE IVFLUSH ×2 (00:58→08:26)
[2023-01-27] MEDS: Levothyroxine Sodium 100 MCG TABLET PO (06:16)
[2023-01-27] MEDS: Omeprazole 20 MG CAPSULE.DR PO (06:16)
[2023-01-27 06:28] LABS: MANUAL DIFF FLAG NO
[2023-01-27 06:33] LABS: Basophils Percent Auto 0.3 % (0-2); Eosinophils Absolute Auto 0.3 X10*3/uL (0.0-0.4); Eosinophils Percent Auto 2.6 % (0-4); Hematocrit 30.2 % (37.0-47.0); Hemoglobin 9.6 g/dl (12.0-16.0); Imm Gran Abs Auto 0.05 X10*3/uL (0.00-0.03); Imm Gran Pct Auto 0.5 % (0.0-0.4); Lymphocytes Absolute Auto 1.7 X10*3/uL (1.2-4.9); Lymphocytes Percent Auto 16.4 % (20-40); Mean Corpuscular HGB Conc 31.8 g/dl (31.0-35.0); Mean Corpuscular Hemoglobin 31.5 pg (27.0-33.0); Mean Platelet Volume 10.4 fL (9.4-12.3); Monocytes Absolute Auto 0.7 X10*3/uL (0.1-1.2); Monocytes Percent Auto 6.7 % (2-11); Neutrophils Absolute Auto 7.4 x10*3/uL (2.0-8.3); Neutrophils Percent Auto 73.5 % (45-73); Platelet Count 222 X10*3/uL (160-400); Red Blood Count 3.05 X10*6/uL (4.20-5.50); Red Cell Distribution Width 14.6 % (11.0-16.0); White Blood Count 10.1 X10*3/uL (4.8-10.8)
[2023-01-27 06:49] LABS: Anion Gap 20 (12-20); Blood Urea Nitrogen 50 mg/dL (9-16); Calcium 8.2 mg/dL (8.4-10.2); Carbon Dioxide 25 mmol/L (22-29); Chloride 95 mmol/L (96-108); Creatinine Clr Calc Pharmacy 7.4; Estimated Glomerular Filt Rate 7; Glucose Random 130 mg/dL (60-115); Potassium 4.7 mmol/L (3.3-5.1); Sodium 135 mmol/L (135-145)
[2023-01-27] MEDS: Famotidine 20 MG TABLET PO (08:20)
[2023-01-27] MEDS: Escitalopram Oxalate 10 MG TABLET PO (08:20)
[2023-01-27] MEDS: Sodium Bicarbonate 650 MG TABLET PO ×2 (08:20→21:05)
[2023-01-27] MEDS: Ranolazine 500 MG TAB.ER.12H PO (08:20)
[2023-01-27] MEDS: Aspirin Enteric Coated 81 MG TABLET.DR PO (08:20)
[2023-01-27] MEDS: Loratadine 10 MG TABLET PO (08:20)
[2023-01-27] MEDS: Gabapentin 300 MG CAPSULE PO (08:20)
[2023-01-27 08:21] LABS: Glucose, Whole Blood 122 mg/dL (60-115)
[2023-01-27] MEDS: Heparin Sodium,Porcine 5,000 UNIT/ML VIAL 5000 UNIT SUBCUT ×2 (08:22→21:04)
[2023-01-27] MEDS: Nystatin Powder 15 GM BOTTLE 1 APPL TOPICAL ×2 (09:28→21:32)
--- NOTE | 2023-01-27 09:54 | MHC.EDTECH ---
Patient washed up and had her lines changed. She has 2 cell phone chargers at her bedside, along with 2 cell phones. both chargers are labeled with stickers.
--- NOTE | 2023-01-27 11:10 | PC.NURSE ---
pt has not made urine this shift, according to previous nurse pt did not urinate. Pt has been intermittently twitching and moving extremities in jerky manner. Pt speaks to family on phone coherently but occasionally makes incoherent noises/words.
--- NOTE | 2023-01-27 12:01 | P.CONNP_ITS ---
History of Present Illness Reason for Consult Consult date: 01/27/23 Chief Complaint Chief complaint: DEVIN History of Present Illness Narrative: 82-year-old female with history of severe CKD presented to the ER on 01/23 for generalized weakness and was kept in the ER for case management currently with worsening kidney function. As per nursing reports, patient was having decreased urine output and she was noted to have elevated creatinine and hospital medicine team consulted for admission on 01/26.? She denies fever, chills, chest pain, shortness of breath, abdominal discomfort, nausea, vomiting or diarrhea. Nursing reported decreased urine output and nothing on bladder scan.? Patient noted to be hypotensive with systolic blood pressure down to the 80s. Review of Systems Review of Systems 10 points ROS negative except for pertinent in HPI PMFSH Past Medical History Medical History Acquired hypothyroidism Cough Depression, major, recurrent Diabetes Dyslipidemia Fibromyalgia Heart murmur Interstitial lung disease Kidney failure, acute Osteoarthritis of multiple joints Respiratory failure with hypoxia Family History Family History Brother Substance use disorder Son Substance use disorder Daughter Substance use disorder Surgical History Surgical History H/O hemorrhoidectomy Hx of fusion of cervical spine Hx of tonsillectomy S/P anal fissurectomy S/P appendectomy S/P partial hysterectomy Social History Social History Household Members: Family Housing: Apartment Do you presently have visiting nurse or other home services: Yes Alcohol intake: current Alcohol intake frequency: holidays/special occasions only Patient Tobacco Use Status: Former Tobacco user Quit Date: 15 years ago Years Smoked: 20 +/- on and off Smoked in Last 30 Days: No e-Cigarette/Vaping Use: Never Used Second Hand Smoke Exposure: No Use of substances other than those prescribed or required for medical reasons: No Advance Directives: Yes Advance Directives on File: Yes Advance Directives Date on File: 08/28/21 service: No Current occupational status: retired Current occupation: right handed Cognitive needs: No Hearing needs: No Vision needs: Yes Meds Allergies Allergy/AdvReac Type Severity Reaction Status Date / Time NSAIDS (Non-Steroidal Allergy Unknown Verified 01/15/23 13:50 Anti-Inflamma [id number] Reductase AdvReac Severe LEG PAIN Verified 01/15/23 13:50 Inhibitor Active Medications: Current Medications Acetaminophen (Acetaminophen 325 Mg Tablet) 650 mg PO Q6H PRN PRN Reason: Pain, Mild (Pain Scale 1-3) Albuterol Sulfate (Albuterol Sulfate 90 Mcg 8 Gm Inhaler) 2 puff INHALE Q4H PRN PRN Reason: Shortness Of Breath Or Wheezing Last Admin: 01/26/23 11:39 Dose: 2 puff Aspirin (Aspirin Enteric Coated 81 Mg Tablet.Dr) 81 mg PO DAILY [facility] Last Admin: 01/27/23 08:20 Dose: 81 mg Atorvastatin Calcium (Atorvastatin Calcium 20 Mg Tablet) 20 mg PO BEDTIME [facility] Last Admin: 01/26/23 21:06 Dose: 20 mg Benzonatate (Benzonatate 100 Mg Capsule) 100 mg PO TID PRN PRN Reason: cough Last Admin: 01/26/23 11:39 Dose: 100 mg Escitalopram Oxalate (Escitalopram Oxalate 10 Mg Tablet) 10 mg PO DAILY [facility] Last Admin: 01/27/23 08:20 Dose: 10 mg Famotidine (Famotidine 20 Mg Tablet) 20 mg PO DAILY [facility] Last Admin: 01/27/23 08:20 Dose: 20 mg Gabapentin (Gabapentin 300 Mg Capsule) 300 mg PO DAILY [facility] Last Admin: 01/27/23 08:20 Dose: 300 mg Heparin Sodium (Porcine) (Heparin Sodium,Porcine 5,000 Unit/Ml Vial) 5,000 unit SUBCUT Q12H [facility] Last Admin: 01/27/23 08:22 Dose: 5,000 unit Levothyroxine Sodium (Levothyroxine Sodium 100 Mcg Tablet) 100 mcg PO DAILY@0600 [facility] Last Admin: 01/27/23 06:16 Dose: 100 mcg Loratadine (Loratadine 10 Mg Tablet) 10 mg PO DAILY [facility] Last Admin: 01/27/23 08:20 Dose: 10 mg Melatonin (Melatonin 3 Mg Tablet) 6 mg PO BEDTIME PRN PRN Reason: Insomnia Metoprolol Tartrate (Metoprolol Tartrate 12.5 Mg Halftab) 12.5 mg PO BID [facility]; Protocol Last Admin: 01/25/23 08:14 Dose: 12.5 mg Morphine Sulfate (Morphine Sulfate Immed Release 15 Mg Tablet) 15 mg PO Q4H PRN PRN Reason: Pain, Severe (Pain Scale 7-10) Last Admin: 01/25/23 13:56 Dose: 15 mg Nitroglycerin (Nitroglycerin 0.4 Mg Tab.Subl) 0.4 mg SUBLINGUAL Q5M PRN PRN Reason: chest pain Nystatin (Nystatin Powder 15 Gm Bottle) 1 appl TOPICAL BID [facility]; Protocol Last Admin: 01/27/23 09:28 Dose: 1 appl Omeprazole (Omeprazole 20 Mg Capsule.Dr) 20 mg PO DAILY@0630 [facility] Last Admin: 01/27/23 06:16 Dose: 20 mg Ondansetron HCl (Ondansetron Hcl 4 Mg/2 Ml Vial) 4 mg IVPUSH Q8H PRN PRN Reason: Nausea and Vomiting Ranolazine (Ranolazine 500 Mg Tab.Er.12h) 500 mg PO BID [facility] Last Admin: 01/27/23 08:20 Dose: 500 mg Sodium Bicarbonate (Sodium Bicarbonate 650 Mg Tablet) 650 mg PO BID [facility] Last Admin: 01/27/23 08:20 Dose: 650 mg Sodium Chloride (0.9 % Sodium Chloride Flush 3 Ml Syringe) [facility] Last Admin: 01/27/23 08:26 Dose: 3 ml Home Medications Medication Instructions Recorded Confirmed Last Taken Type albuterol sulfate 90 mcg/actuation 2 puff inhalation Q4-6H PRN 12/28/22 01/24/23 Unknown History aerosol inhaler Shortness Of Breath Or Wheezing allopurinol 100 mg tablet 100 mg PO DAILY 12/28/22 01/23/23 01/23/23 09:00 History cetirizine 10 mg tablet (Zyrtec) 10 mg PO DAILY 12/28/22 01/23/23 01/23/23 09:00 History citalopram 20 mg tablet 20 mg PO DAILY 12/28/22 01/23/23 01/23/23 09:00 History famotidine 20 mg tablet 20 mg PO DAILY 12/28/22 01/23/23 01/23/23 09:00 History levothyroxine 100 mcg tablet 100 mcg PO DAILY@0600 12/28/22 01/24/23 01/23/23 06:00 History pantoprazole 40 mg tablet,delayed 40 mg PO DAILY@0630 12/28/22 01/24/23 01/23/23 06:30 History release sodium bicarbonate 325 mg tablet 650 mg PO BID 12/28/22 01/23/23 01/23/23 09:00 History guaifenesin 400 mg tablet 800 mg PO TID congestion 01/14/23 01/23/23 01/23/23 09:00 History benzonatate 100 mg capsule 100 mg PO TID PRN cough 01/23/23 01/24/23 Unknown History morphine 15 mg immediate release 15 mg PO Q4-6H PRN pain 01/23/23 01/24/23 Unknown History tablet atorvastatin 20 mg tablet 20 mg PO BEDTIME 01/24/23 01/24/23 01/22/23 History Physical Exam Vital Signs: Last Vital Signs Temp 97.0 F 01/27/23 04:51 Pulse 81 01/27/23 08:12 Resp 16 01/27/23 08:12 BP 116/41 L 01/27/23 08:12 Pulse Ox 94 01/27/23 08:12 O2 Del Method Nasal Cannula 01/27/23 08:12 O2 Flow Rate 3 01/27/23 08:12 Oxygen Flow Rate 2 01/23/23 14:12 BMI result Body Mass Index 39.5 Const General: no acute distress and awake HEENT Head: Yes normocephalic and Yes atraumatic Neck Neck: Yes supple Resp Auscultation: diminished lung sounds Cardio Heart sounds: S1 normal heart sound present and S2 normal heart sound present GI Palpation (GI): Soft to palpation and nontender Extrem General: Yes AV fistula Right upper extremity: no edema Results Lab Results 01/27/23 06:23 01/27/23 06:23 Lab results: Chemistry 01/26/23 01/27/23 18:38 06:23 Sodium 134 L 135 Potassium 4.8 4.7 Carbon Dioxide 24 25 BUN 41 H 50 H Creatinine 5.15 H* 6.14 H* Calcium 8.0 L D 8.2 L Hematology 01/27/23 06:23 WBC 10.1 Hgb 9.6 L Plt Count 222 Assessment and Plan (1) DEVIN (acute kidney injury): Status: Acute (2) CKD (chronic kidney disease) stage 4, GFR 15-29 ml/min: Status: Acute Plan DEVIN most likely due to acute tubular injury hypotensive earlier with SBP down to the 80s renal US negative for hydronephrosis may need to initiate renal replacement therapy during this admission known severe CKD followed by Dr Bingham baseline Scr 2-5 mg/dl multifactorial: -hypertensive kidney disease -nephron loss due to aging -residual kidney function loss from prior DEVIN h/o percutaneous LUE AVF 12/24/22 (Dr Guillermo) She was discharged with narcotics and due to GFR they stacked and she became altered. she a long history of CKD and was seeing nephrology in [place] (followed there by [facility] in [place]) REC 0.9% 75 cc/hr c/w sodium bicarbonate protect vascular access monitor urine output follow kidney function and electrolytes Time Spent With Patient Time: Total time managing care of this patient today ____ minutes. Procedures Date of Service Date of Service: 01/27/23
--- NOTE | 2023-01-27 12:25 | P.PNIM_ITS ---
Subjective Subjective Date of Service: 01/27/23 Interval History: twitching, weak Physical Exam Vital Signs: Vital Signs: Last Vital Signs Temp 97.0 F 01/27/23 04:51 Pulse 81 01/27/23 08:12 Resp 16 01/27/23 08:12 BP 116/41 L 01/27/23 08:12 Pulse Ox 94 01/27/23 08:12 O2 Del Method Nasal Cannula 01/27/23 08:12 O2 Flow Rate 3 01/27/23 08:12 Oxygen Flow Rate 2 01/23/23 14:12 BMI result Body Mass Index 39.5 frail appearing, ao times 3 Objective Data Active Medications Acetaminophen (Acetaminophen 325 Mg Tablet) 650 mg PO Q6H PRN PRN Reason: Pain, Mild (Pain Scale 1-3) Albuterol Sulfate (Albuterol Sulfate 90 Mcg 8 Gm Inhaler) 2 puff INHALE Q4H PRN PRN Reason: Shortness Of Breath Or Wheezing Last Admin: 01/26/23 11:39 Dose: 2 puff Documented By: MCKAYLA Aspirin (Aspirin Enteric Coated 81 Mg Tablet.Dr) 81 mg PO DAILY [facility] Last Admin: 01/27/23 08:20 Dose: 81 mg Documented By: EULALIO Atorvastatin Calcium (Atorvastatin Calcium 20 Mg Tablet) 20 mg PO BEDTIME [facility] Last Admin: 01/26/23 21:06 Dose: 20 mg Documented By: SHIKHA Benzonatate (Benzonatate 100 Mg Capsule) 100 mg PO TID PRN PRN Reason: cough Last Admin: 01/26/23 11:39 Dose: 100 mg Documented By: MCKAYLA Escitalopram Oxalate (Escitalopram Oxalate 10 Mg Tablet) 10 mg PO DAILY [facility] Last Admin: 01/27/23 08:20 Dose: 10 mg Documented By: EULALIO Famotidine (Famotidine 20 Mg Tablet) 20 mg PO DAILY [facility] Last Admin: 01/27/23 08:20 Dose: 20 mg Documented By: EULALIO Gabapentin (Gabapentin 300 Mg Capsule) 300 mg PO DAILY [facility] Last Admin: 01/27/23 08:20 Dose: 300 mg Documented By: EULALIO Heparin Sodium (Porcine) (Heparin Sodium,Porcine 5,000 Unit/Ml Vial) 5,000 unit SUBCUT Q12H [facility] Last Admin: 01/27/23 08:22 Dose: 5,000 unit Documented By: EULALIO Sodium Chloride (Ns) 1,000 mls @ 75 mls/hr IVCONT .[id number] [facility] Levothyroxine Sodium (Levothyroxine Sodium 100 Mcg Tablet) 100 mcg PO ALEJANDRINA LY@0600 [facility] Last Admin: 01/27/23 06:16 Dose: 100 mcg Documented By: SILVER Loratadine (Loratadine 10 Mg Tablet) 10 mg PO DAILY [facility] Last Admin: 01/27/23 08:20 Dose: 10 mg Documented By: EULALIO Melatonin (Melatonin 3 Mg Tablet) 6 mg PO BEDTIME PRN PRN Reason: Insomnia Metoprolol Tartrate (Metoprolol Tartrate 12.5 Mg Halftab) 12.5 mg PO BID [facility]; Protocol Last Admin: 01/25/23 08:14 Dose: 12.5 mg Documented By: DAYANA Morphine Sulfate (Morphine Sulfate Immed Release 15 Mg Tablet) 15 mg PO Q4H PRN PRN Reason: Pain, Severe (Pain Scale 7-10) Last Admin: 01/25/23 13:56 Dose: 15 mg Documented By: DAYANA Nitroglycerin (Nitroglycerin 0.4 Mg Tab.Subl) 0.4 mg SUBLINGUAL Q5M PRN PRN Reason: chest pain Nystatin (Nystatin Powder 15 Gm Bottle) 1 appl TOPICAL BID [facility]; Protocol Last Admin: 01/27/23 09:28 Dose: 1 appl Documented By: EULALIO Omeprazole (Omeprazole 20 Mg Capsule.Dr) 20 mg PO DAILY@0630 [facility] Last Admin: 01/27/23 06:16 Dose: 20 mg Documented By: SILVER Ondansetron HCl (Ondansetron Hcl 4 Mg/2 Ml Vial) 4 mg IVPUSH Q8H PRN PRN Reason: Nausea and Vomiting Ranolazine (Ranolazine 500 Mg Tab.Er.12h) 500 mg PO BID [facility] Last Admin: 01/27/23 08:20 Dose: 500 mg Documented By: EULALIO Sodium Bicarbonate (Sodium Bicarbonate 650 Mg Tablet) 650 mg PO BID [facility] Last Admin: 01/27/23 08:20 Dose: 650 mg Documented By: EULALIO Sodium Chloride (0.9 % Sodium Chloride Flush 3 Ml Syringe) 3 ml IVFLUSH QSHIFT [facility] Last Admin: 01/27/23 08:26 Dose: 3 ml Documented By: EULALIO Labs 01/27/23 06:23 01/27/23 06:23 Labs: Laboratory Results - last 24 hr 01/26/23 01/26/23 01/27/23 15:16 18:38 06:23 MCV 99.0 H MCH 31.5 MCHC 31.8 RDW 14.6 Plt Count 222 MPV 10.4 Immature Gran % (Auto) 0.5 H Neut % (Auto) 73.5 H Lymph % (Auto) 16.4 L Elbert % (Auto) 6.7 Eos % (Auto) 2.6 Baso % (Auto) 0.3 Lymph # (Auto) 1.7 Elbert # (Auto) 0.7 Eos # (Auto) 0.3 Baso # (Auto) 0.0 Abs Immat Gran (auto) 0.05 H Absolute Neuts (auto) 7.4 Absolute Nucleated RBC 0.000 Nucleated RBC % (auto) 0.0 Anion Gap 18 Estim Creat Clear Calc 8.8 Estimated GFR 8 POC Glucose 95 Random Glucose 144 H Calcium 8.0 L D 01/27/23 01/27/23 06:23 07:56 MCV MCH MCHC RDW Plt Count MPV Immature Gran % (Auto) Neut % (Auto) Lymph % (Auto) Elbert % (Auto) Eos % (Auto) Baso % (Auto) Lymph # (Auto) Elbert # (Auto) Eos # (Auto) Baso # (Auto) Abs Immat Gran (auto) Absolute Neuts (auto) Absolute Nucleated RBC Nucleated RBC % (auto) Anion Gap 20 Estim Creat Clear Calc 7.4 Estimated GFR 7 POC Glucose 122 H Random Glucose 130 H Calcium 8.2 L Assessment and Plan (1) DEVIN (acute kidney injury): Status: Acute Plan ?82F PMH hypothyroidism, CKD IV, essential hypertension, restless leg syndrome, chronic hypoxemic respiratory failure due to interstitial lung disease, conges tive heart failure with preserved ejection fraction, coronary artery disease presented to ED 01/23/23 with weakness and awaiting snf, was admitted 01/26/23 for oliguria, found to have devin on CKD IV DEVIN on CKDIV due to hypotension monitor closely nephro 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 On gabapentin Chronic hypoxic respiratory failure due to interstitial lung disease? On 3 L at baseline Congestive heart failure on preserved ejection fraction Not on Lasix at home Morbid obesity? weight loss DVT prophylaxis:? Heparin DNR/DNI reason for continued hospitalization:devin, may need diagnostic tech prior to dc Time Spent With Patient Time: Total time managing care of this patient today ____ minutes. Quality Stroke Does the patient have a stroke diagnosis?: No VTE Prior VTE?: No VTE Risk Level:: Medical - moderate - high VTE Device Contraindication: Treatment Not Indicated VTE Drug Contraindication: N/A - Med Ordered
[2023-01-27] MEDS: 0.9 % Sodium Chloride 1,000 ML 75 ML IVCONT (12:31)
--- NOTE | 2023-01-27 12:38 | PC.NURSE ---
pt diaphoretic, intermittently seems disoriented, is very jerky and restless. At other moments pt is calm, oriented, and coherant. NS infusing per mar. will cont to bro
[2023-01-27] MEDS: 0.9 % Sodium Chloride 1,000 ML 999 ML IV (13:21)
[2023-01-27 13:24] LABS: ABG Base Excess 0.3 mmol/L; ABG HCO3 27 mmol/L (22-26); ABG pCO2 52 mmHg (32-45); ABG pH 7.31 (7.35-7.45); ABG pO2 76 mmHg (83-108)
[2023-01-27 14:19] LABS: Lactic Acid 1.6 mmol/L (0.5-2.0)
--- NOTE | 2023-01-27 14:20 | PC.NURSE ---
Radiology at bedside for xray. 22g IV access in left forearm is leaking around the IV site. Attempted to reposition IV access, but was unsuccessful. Pt is occasionally jerking movements. New IV access established in left ankle/distal li (20g) by this RN. Unsuccessful initial attempt to obtain access in left AC. Primary RN Babita present. Placed on 4LPM oxygen via nasal cannula. Respiratory Therapist called to bedside.
--- NOTE | 2023-01-27 15:29 | PC.NURSE ---
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 MD assessed pt, manual pressure obtained (82/50) MD ordered bolus IV fluids. rectal temp obtained at this time - 99 New IV access was obtained in pt left foot. Fluids infused per SEP
[2023-01-27] MEDS: Albumin Human 25 % 100 ML IV ×2 (15:37→17:53)
--- NOTE | 2023-01-27 17:47 | PC.NURSE ---
albumin late - only avail in main ER, I am the only nurse in overflow and cannot leave patients, was waiting for albumin to be brought over
--- NOTE | 2023-01-27 18:05 | PC.NURSE ---
second bottle of albumin running. pt is much less restless and twitchy than she was ealrier today. IV NS continues to infuse per MAR
--- NOTE | 2023-01-27 19:59 | PC.NURSE ---
patient report was given to the receiving nurse Shonna patient is being transferred by the transporter safety maintained
[2023-01-27] MEDS: Atorvastatin Calcium 20 MG TABLET PO (21:05)
[2023-01-27] MEDS: Melatonin 3 MG TABLET 6 MG PO (23:30)
[2023-01-28 01:45] LABS: ABG Refer to POC result
[2023-01-28 02:00] VITALS: O2SAT 95
[2023-01-28] MEDS: 0.9 % Sodium Chloride 1,000 ML 75 ML IVCONT (02:44)
[2023-01-28 03:57] VITALS: BP 92/50; PULSE 82; RESP 20; TEMP 36.5; O2SAT 96
--- NOTE | 2023-01-28 05:08 | PC.NURSE ---
01/27 @ 2325; bp soft 92/54, hr 88. patient on ivf ns @[address] Damon made aware. Patient's nasal cannula falling off with patient's constant movement in bed, respiratory at bedside to assess pt, oxymask 6 liters applied, 97% O2 sats.
[2023-01-28 07:09] LABS: Hematocrit 25.6 % (37.0-47.0); Hemoglobin 8.1 g/dl (12.0-16.0); Mean Corpuscular HGB Conc 31.6 g/dl (31.0-35.0); Mean Corpuscular Hemoglobin 31.4 pg (27.0-33.0); Mean Corpuscular Volume 99.2 fL (80.0-98.0); Mean Platelet Volume 10.5 fL (9.4-12.3); Platelet Count 170 X10*3/uL (160-400); Red Blood Count 2.58 X10*6/uL (4.20-5.50); Red Cell Distribution Width 14.8 % (11.0-16.0); White Blood Count 7.5 X10*3/uL (4.8-10.8)
[2023-01-28 07:11] VITALS: BP 130/74; PULSE 63; RESP 18; TEMP 36.3; O2SAT 99
[2023-01-28 07:27] LABS: Anion Gap 18 (12-20); Blood Urea Nitrogen 58 mg/dL (9-16); Calcium 7.5 mg/dL (8.4-10.2); Carbon Dioxide 23 mmol/L (22-29); Chloride 102 mmol/L (96-108); Creatinine Clr Calc Pharmacy 6.5; Estimated Glomerular Filt Rate 6; Glucose Fasting 93 mg/dL (60-99); Potassium 5.2 mmol/L (3.3-5.1); Sodium 138 mmol/L (135-145)
[2023-01-28] MEDS: Heparin Sodium,Porcine 5,000 UNIT/ML VIAL 5000 UNIT SUBCUT ×2 (08:37→20:34)
[2023-01-28] MEDS: Loratadine 10 MG TABLET PO (08:38)
[2023-01-28] MEDS: Sodium Bicarbonate 650 MG TABLET PO ×2 (08:38→20:34)
[2023-01-28] MEDS: Famotidine 20 MG TABLET PO (08:38)
--- NOTE | 2023-01-28 08:40 | HO.PM.IMPN ---
Subjective Subjective Date of Service: 01/28/23 Interval History: weakn, no appetite Physical Exam Vital Signs: Vital Signs: Last Vital Signs Temp 97.4 F 01/28/23 07:11 Pulse 63 01/28/23 07:11 Resp 18 01/28/23 07:11 BP 130/74 01/28/23 07:11 Pulse Ox 99 01/28/23 07:11 O2 Del Method Oxymask 01/28/23 07:11 O2 Flow Rate 6 01/28/23 07:11 Oxygen Flow Rate 2 01/23/23 14:12 BMI result Body Mass Index 39.7 lethargic, repsonds to stimuli then answers mostly appropriatley, myoclonic jerks, crackles Objective Data Active Medications Acetaminophen (Acetaminophen 325 Mg Tablet) 650 mg PO Q6H PRN PRN Reason: Pain, Mild (Pain Scale 1-3) Albuterol Sulfate (Albuterol Sulfate 90 Mcg 8 Gm Inhaler) 2 puff INHALE Q4H PRN PRN Reason: Shortness Of Breath Or Wheezing Last Admin: 01/26/23 11:39 Dose: 2 puff Documented By: MCKAYLA Aspirin (Aspirin Enteric Coated 81 Mg Tablet.Dr) 81 mg PO DAILY [facility] Last Admin: 01/27/23 08:20 Dose: 81 mg Documented By: EULALIO Atorvastatin Calcium (Atorvastatin Calcium 20 Mg Tablet) 20 mg PO BEDTIME [facility] Last Admin: 01/27/23 21:05 Dose: 20 mg Documented By: LANCE Benzonatate (Benzonatate 100 Mg Capsule) 100 mg PO TID PRN PRN Reason: cough Last Admin: 01/26/23 11:39 Dose: 100 mg Documented By: MCKAYLA Famotidine (Famotidine 20 Mg Tablet) 20 mg PO DAILY [facility] Last Admin: 01/27/23 08:20 Dose: 20 mg Documented By: EULALIO Heparin Sodium (Porcine) (Heparin Sodium,Porcine 5,000 Unit/Ml Vial) 5,000 unit SUBCUT Q12H [facility] Last Admin: 01/27/23 21:04 Dose: 5,000 unit Documented By: LANCE Sodium Chloride (Ns) 1,000 mls @ 75 mls/hr IVCONT .[id number] [facility] Last Admin: 01/28/23 02:44 Dose: 75 mls/hr Documented By: LANCE Levothyroxine Sodium (Levothyroxine Sodium 100 Mcg Tablet) 100 mcg PO DAILY@0600 [facility] Last Admin: 01/28/23 06:02 Dose: Not Given Documented By: WENDY Non-Admin Reason: too lethargic Loratadine (Loratadine 10 Mg Tablet) 10 mg PO DAILY [facility] Last Admin: 01/27/23 08:20 Dose: 10 mg Documented By: EULALIO Melatonin (Melatonin 3 Mg Tablet) 6 mg PO BEDTIME PRN PRN Reason: Insomnia Last Admin: 01/27/23 23:30 Dose: 6 mg Documented By: LANCE Nystatin (Nystatin Powder 15 Gm Bottle) 1 appl TOPICAL BID [facility]; Protocol Last Admin: 01/27/23 21:32 Dose: 1 appl Documented By: LANCE Omeprazole (Omeprazole 20 Mg Capsule.Dr) 20 mg PO DAILY@0630 [facility] Last Admin: 01/28/23 06:03 Dose: Not Given Documented By: WENDY Non-Admin Reason: too lethargic Ondansetron HCl (Ondansetron Hcl 4 Mg/2 Ml Vial) 4 mg IVPUSH Q8H PRN PRN Reason: Nausea and Vomiting Sodium Bicarbonate (Sodium Bicarbonate 650 Mg Tablet) 650 mg PO BID [facility] Last Admin: 01/27/23 21:05 Dose: 650 mg Documented By: LANCE Sodium Chloride (0.9 % Sodium Chloride Flush 3 Ml Syringe) 3 ml IVFLUSH QSHIFT [facility] Last Admin: 01/27/23 23:28 Dose: Not Given Documented By: LANCE Non-Admin Reason: IV Running Labs 01/28/23 06:16 01/28/23 06:16 Labs: Laboratory Results - last 24 hr 01/27/23 01/27/23 01/28/23 13:14 13:57 06:16 MCV 99.2 H MCH 31.4 MCHC 31.6 RDW 14.8 Plt Count 170 MPV 10.5 Absolute Nucleated RBC 0.000 Nucleated RBC % (auto) 0.0 O2 Saturation 93.0 ABG pH at Pt Temp 7.31 L ABG pCO2 at Pt Temp 52 H ABG pO2 at Pt Temp 76 L ABG HCO3 27 H ABG Base Excess (Actual) 0.3 Anion Gap Estim Creat Clear Calc Estimated GFR Fasting Glucose Lactic Acid 1.6 Calcium 01/28/23 06:16 MCV MCH MCHC RDW Plt Count MPV Absolute Nucleated RBC Nucleated RBC % (auto) O2 Saturation ABG pH at Pt Temp ABG pCO2 at Pt Temp ABG pO2 at Pt Temp ABG HCO3 ABG Base Excess (Actual) Anion Gap 18 Estim Creat Clear Calc 6.5 Estimated GFR 6 Fasting Glucose 93 Lactic Acid Calcium 7.5 L D Assessment and Plan (1) DEVIN (acute kidney injury): Status: Acute Plan ?82F PMH hypothyroidism, CKD IV, essential hypertension, restless leg syndrome, chronic hypoxemic respiratory failure due to interstitial lung disease, congestive heart failure with preserved ejection fraction, coronary artery disease presented to ED 01/23/23 with weakness and awaiting snf, was admitted 01/26/23 for oliguria, found to have devin on CKD IV DEVIN on CKDIV complicated by acute metabolic encephalopathy due to hypotension - from hypovolemia not sepsis anuric, not responding to iv fluids nephro following 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 hold gabapentin Chronic hypoxic respiratory failure due to interstitial lung disease? On 3 L at baseline Congestive heart failure on preserved ejection fraction Not on Lasix at home Morbid obesity? weight loss DVT prophylaxis:? Heparin DNR/DNI reason for continued hospitalization:devin, may need plugger worker prior to dc Time Spent With Patient Time: Total time managing care of this patient today ____ minutes. Quality Stroke Does the patient have a stroke diagnosis?: No VTE Prior VTE?: No VTE Risk Level:: Medical - moderate - high VTE Device Contraindication: Treatment Not Indicated VTE Drug Contraindication: N/A - Med Ordered
[2023-01-28] MEDS: Nystatin Powder 15 GM BOTTLE 1 APPL TOPICAL ×2 (08:58→20:35)
--- NOTE | 2023-01-28 10:31 | MHC.CM.PN ---
EMR reviewed and per MD rounds, pt is not medically cleared for D/C due to increased O2 requirements, and close monitoring of DEVIN. CM will continue to follow.
[2023-01-28 11:21] VITALS: BP 138/78; PULSE 73; RESP 20; TEMP 36.4; O2SAT 96
--- NOTE | 2023-01-28 12:47 | PM.PNNEP ---
Subjective Subjective Date of Service: 01/28/23 Interval history: seen and examined feels weak c/o no appetite Physical Exam Vital Signs: Vital Signs: Last Vital Signs Temp 97.6 F 01/28/23 11:21 Pulse 73 01/28/23 11:21 Resp 20 01/28/23 11:21 BP 138/78 01/28/23 11:21 Pulse Ox 96 01/28/23 11:21 O2 Del Method Oxymask 01/28/23 11:21 O2 Flow Rate 3 01/28/23 11:21 Oxygen Flow Rate 2 01/23/23 14:12 BMI result Body Mass Index 39.7 Const: General: no acute distress and awake HEENT: Head: Yes normocephalic and Yes atraumatic Neck: Neck: Yes supple Resp: Auscultation: diminished lung sounds Cardio: Heart sounds: S1 normal heart sound present and S2 normal heart sound present GI: Palpation (GI): Soft to palpation and nontender Extrem: General: Yes AV fistula Right upper extremity: no edema Objective Data Labs 01/28/23 06:16 01/28/23 06:16 Labs: Laboratory Results - last 24 hr 01/27/23 01/27/23 01/28/23 13:14 13:57 06:16 WBC 7.5 RBC 2.58 L Hgb 8.1 L Hct 25.6 L MCV 99.2 H MCH 31.4 MCHC 31.6 RDW 14.8 Plt Count 170 MPV 10.5 Absolute Nucleated RBC 0.000 Nucleated RBC % (auto) 0.0 O2 Saturation 93.0 ABG pH at Pt Temp 7.31 L ABG pCO2 at Pt Temp 52 H ABG pO2 at Pt Temp 76 L ABG HCO3 27 H ABG Base Excess (Actual) 0.3 Sodium Potassium Chloride Carbon Dioxide Anion Gap BUN Creatinine Estim Creat Clear Calc Estimated GFR Fasting Glucose Lactic Acid 1.6 Calcium 01/28/23 06:16 WBC RBC Hgb Hct MCV MCH MCHC RDW Plt Count MPV Absolute Nucleated RBC Nucleated RBC % (auto) O2 Saturation ABG pH at Pt Temp ABG pCO2 at Pt Temp ABG pO2 at Pt Temp ABG HCO3 ABG Base Excess (Actual) Sodium 138 Potassium 5.2 H Chloride 102 Carbon Dioxide 23 Anion Gap 18 BUN 58 H Creatinine 6.96 H* Estim Creat Clear Calc 6.5 Estimated GFR 6 Fasting Glucose 93 Lactic Acid Calcium 7.5 L D Procedures Date of Service Date of Service: 01/28/23 Assessment & Plan Assessment and plan (1) DEVIN (acute kidney injury): Status: Acute (2) CKD (chronic kidney disease) stage 4, GFR 15-29 ml/min: Status: Acute Plan DEVIN most likely due to acute tubular injury uremic will initiate renal replacement therapy hypotensive earlier with SBP down to the 80s renal US negative for hydronephrosis known severe CKD followed by Dr Bingham baseline Scr 2-5 mg/dl multifactorial: -hypertensive kidney disease -nephron loss due to aging -residual kidney function loss from prior DEVIN h/o percutaneous LUE AVF 12/24/22 (Dr Guillermo) She was discharged with narcotics and due to GFR they stacked and she became altered. she a long history of CKD and was seeing nephrology in [place] (followed there by [facility] in [place]) REC HD today and in am dc IVF c/w sodium bicarbonate protect vascular access monitor urine output follow kidney function and electrolytes Time Spent With Patient Time: Total time managing care of this patient today ____ minutes. Progress Note: Quality Stroke Does the patient have a stroke diagnosis?: No
[2023-01-28 16:00] VITALS: BP 104/56; PULSE 76; RESP 16; TEMP 36.7; O2SAT 93
[2023-01-28 19:08] VITALS: BP 106/52; PULSE 81; RESP 20; TEMP 36.5; O2SAT 94
[2023-01-28] MEDS: Atorvastatin Calcium 20 MG TABLET PO (20:34)
[2023-01-28 20:41] LABS: Appearance Urine Cloudy; Color Urine Dark Yellow; Glucose Urine UA Negative (Negative); Leukocyte Esterase Urine Small (1+) (Negative); Nitrite Urine Negative (Negative); UMIC TRIGGER UACC YES; Urine Blood Negative (Negative); Urine Ketones Negative (Negative); Urine Protein 30 (1+) mg/dL (Neg-Trace)
[2023-01-28 20:50] LABS: Creatinine Urine 199.69 mg/dL; Sodium Urine Random < 20.0 mmol/L
[2023-01-28 21:34] LABS: Bacteria Urine 1+ (None Seen); RBC Urine 0-2 /HPF (0-2); UACC Culture Trigger YES
[2023-01-29 04:00] VITALS: BP 137/53; PULSE 86; RESP 20; TEMP 36.7; O2SAT 95
[2023-01-29 05:06] LABS: HBS Num1 0.18 mIU/mL (0-7.99); HBc Num1 0.11 S/CO (0.00-0.79); HBsAGNum1 0.29 S/CO (0.00-0.99); Hepatitis B Core Antibody Nonreactive (Nonreactive); Hepatitis B Surface Antigen Negative (Negative); ~Hepatitis B Surface Antibody NONREACTIVE (Nonreactive)
[2023-01-29] MEDS: Levothyroxine Sodium 100 MCG TABLET PO (05:30)
[2023-01-29] MEDS: Omeprazole 20 MG CAPSULE.DR PO (05:30)
[2023-01-29 07:13] LABS: Hematocrit 26.1 % (37.0-47.0); Hemoglobin 8.2 g/dl (12.0-16.0); Mean Corpuscular HGB Conc 31.4 g/dl (31.0-35.0); Mean Corpuscular Hemoglobin 30.9 pg (27.0-33.0); Mean Corpuscular Volume 98.5 fL (80.0-98.0); Mean Platelet Volume 10.6 fL (9.4-12.3); Platelet Count 183 X10*3/uL (160-400); Red Blood Count 2.65 X10*6/uL (4.20-5.50); Red Cell Distribution Width 14.8 % (11.0-16.0); White Blood Count 6.7 X10*3/uL (4.8-10.8)
[2023-01-29 07:22] VITALS: BP 122/76; PULSE 80; RESP 20; TEMP 36.6; O2SAT 98
[2023-01-29 07:28] LABS: Anion Gap 14 (12-20); Blood Urea Nitrogen 45 mg/dL (9-16); Calcium 7.8 mg/dL (8.4-10.2); Carbon Dioxide 25 mmol/L (22-29); Chloride 100 mmol/L (96-108); Estimated Glomerular Filt Rate 7; Glucose Fasting 90 mg/dL (60-99); Potassium 3.7 mmol/L (3.3-5.1); Sodium 135 mmol/L (135-145)
[2023-01-29 07:44] VITALS: BP 122/76; PULSE 80; O2SAT 98
[2023-01-29] MEDS: Famotidine 20 MG TABLET PO (08:13)
[2023-01-29] MEDS: Nystatin Powder 15 GM BOTTLE 1 APPL TOPICAL ×2 (08:13→20:51)
[2023-01-29] MEDS: Loratadine 10 MG TABLET PO (08:13)
[2023-01-29] MEDS: Sodium Bicarbonate 650 MG TABLET PO ×2 (08:13→20:51)
[2023-01-29] MEDS: Aspirin Enteric Coated 81 MG TABLET.DR PO (08:14)
[2023-01-29] MEDS: Heparin Sodium,Porcine 5,000 UNIT/ML VIAL 5000 UNIT SUBCUT (08:14)
[2023-01-29] MEDS: Acetaminophen 325 MG TABLET 650 MG PO (08:28)
--- NOTE | 2023-01-29 08:59 | HO.PM.IMPN ---
Subjective Subjective Date of Service: 01/29/23 Interval History: much improved today Physical Exam Vital Signs: Vital Signs: Last Vital Signs Temp 98 F 01/29/23 07:22 Pulse 80 01/29/23 07:44 Resp 20 01/29/23 07:22 BP 122/76 01/29/23 07:44 Pulse Ox 98 01/29/23 07:44 O2 Del Method Oxymask 01/29/23 07:22 O2 Flow Rate 4 01/29/23 07:22 Oxygen Flow Rate 2 01/23/23 14:12 BMI result Body Mass Index 39.7 Const: General: no acute distress and awake HEENT: Head: Yes normocephalic and Yes atraumatic Neck: Neck: Yes supple Resp: Auscultation: diminished lung sounds Cardio: Heart sounds: S1 normal heart sound present and S2 normal heart sound present GI: Palpation (GI): Soft to palpation and nontender Extrem: General: Yes AV fistula Right upper extremity: no edema Objective Data Active Medications Acetaminophen (Acetaminophen 325 Mg Tablet) 650 mg PO Q6H PRN PRN Reason: Pain, Mild (Pain Scale 1-3) Last Admin: 01/29/23 08:28 Dose: 650 mg Documented By: ZAY Albuterol Sulfate (Albuterol Sulfate 90 Mcg 8 Gm Inhaler) 2 puff INHALE Q4H PRN PRN Reason: Shortness Of Breath Or Wheezing Last Admin: 01/26/23 11:39 Dose: 2 puff Documented By: MCKAYLA Aspirin (Aspirin Enteric Coated 81 Mg Tablet.) 81 mg PO DAILY [facility] Last Admin: 01/29/23 08:14 Dose: 81 mg Documented By: ZAY Atorvastatin Calcium (Atorvastatin Calcium 20 Mg Tablet) 20 mg PO BEDTIME [facility] Last Admin: 01/28/23 20:34 Dose: 20 mg Documented By: ANU Benzonatate (Benzonatate 100 Mg Capsule) 100 mg PO TID PRN PRN Reason: cough Last Admin: 01/26/23 11:39 Dose: 100 mg Documented By: MCKAYLA Famotidine (Famotidine 20 Mg Tablet) 20 mg PO DAILY [facility] Last Admin: 01/29/23 08:13 Dose: 20 mg Documented By: ZAY Heparin Sodium (Porcine) (Heparin Sodium,Porcine 5,000 Unit/Ml Vial) 5,000 unit SUBCUT Q12H [facility] Last Admin: 01/29/23 08:14 Dose: 5,000 unit Documented By: ZAY Levothyroxine Sodium (Levothyroxine Sodium 100 Mcg Tablet) 100 mcg PO DAILY@0600 [facility] Last Admin: 01/29/23 05:30 Dose: 100 mcg Documented By: JENNIFER Loratadine (Loratadine 10 Mg Tablet) 10 mg PO DAILY [facility] Last Admin: 01/29/23 08:13 Dose: 10 mg Documented By: ZAY Melatonin (Melatonin 3 Mg Tablet) 6 mg PO BEDTIME PRN PRN Reason: Insomnia Last Admin: 01/27/23 23:30 Dose: 6 mg Documented By: LANCE Nystatin (Nystatin Powder 15 Gm Bottle) 1 appl TOPICAL BID [facility]; Protocol Last Admin: 01/29/23 08:13 Dose: 1 appl Documented By: ZAY Omeprazole (Omeprazole 20 Mg Capsule.) 20 mg PO DAILY@0630 [facility] Last Admin: 01/29/23 05:30 Dose: 20 mg Documented By: JENNIFER Ondansetron HCl (Ondansetron Hcl 4 Mg/2 Ml Vial) 4 mg IVPUSH Q8H PRN PRN Reason: Nausea and Vomiting Sodium Bicarbonate (Sodium Bicarbonate 650 Mg Tablet) 650 mg PO BID [facility] Last Admin: 01/29/23 08:13 Dose: 650 mg Documented By: ZAY Sodium Chloride (0.9 % Sodium Chloride Flush 3 Ml Syringe) 3 ml IVFLUSH QSHIFT [facility] Last Admin: 01/29/23 07:18 Dose: Not Given Documented By: ZAY Non-Admin Reason: See Note Labs 01/29/23 06:48 01/29/23 06:48 Labs: Laboratory Results - last 24 hr 01/28/23 01/28/23 01/28/23 18:00 18:00 18:45 MCV MCH MCHC RDW Plt Count MPV Absolute Nucleated RBC Nucleated RBC % (auto) Anion Gap Estim Creat Clear Calc Estimated GFR Fasting Glucose Calcium Urine Color Dark Yellow Urine Appearance Cloudy Urine pH 5.0 Ur Specific [place] 1.020 Urine Protein 30 (1+) H Urine Glucose (UA) Negative Urine Ketones Negative Urine Blood Negative Urine Nitrite Negative Ur Leukocyte Esterase Small (1+) H Urine RBC 0-2 Urine WBC 6-10 Ur Squamous Epith Cells 6-10 Urine Bacteria 1+ Hyaline Casts 3-5 Ur Random Sodium < 20.0 Urine Creatinine 199.69 Hep Bs Antigen Negative Hep Bs Antibody NONREACTIVE Hep B Core Total Ab Nonreactive 01/29/23 01/29/23 06:48 06:48 MCV 98.5 H MCH 30.9 MCHC 31.4 RDW 14.8 Plt Count 183 MPV 10.6 Absolute Nucleated RBC 0.000 Nucleated RBC % (auto) 0.0 Anion Gap 14 Estim Creat Clear Calc 8.0 Estimated GFR 7 Fasting Glucose 90 Calcium 7.8 L Urine Color Urine Appearance Urine pH Ur Specific [place] Urine Protein Urine Glucose (UA) Urine Ketones Urine Blood Urine Nitrite Ur Leukocyte Esterase Urine RBC Urine WBC Ur Squamous Epith Cells Urine Bacteria Hyaline Casts Ur Random Sodium Urine Creatinine Hep Bs Antigen Hep Bs Antibody Hep B Core Total Ab Microbiology Microbiology Results: Microbiology 01/27/23 13:57 Blood Culture - Preliminary Blood - Venous No growth after 24 hours. 01/27/23 13:57 Blood Culture - Preliminary Blood - Venous No growth after 24 hours. Assessment and Plan (1) DEVIN (acute kidney injury): Status: Acute Plan ?82F PMH hypothyroidism, CKD IV, essential hypertension, restless leg syndrome, chronic hypoxemic respiratory failure due to interstitial lung disease, congestive heart failure with preserved ejection fraction, coronary artery disease presented to ED 01/23/23 with weakness and awaiting snf, was admitted 01/26/23 for oliguria, found to have devin on CKD IV DEVIN on CKDIV complicated by acute metabolic encephalopathy due to hypotension - from hypovolemia not sepsis started HD 01/28/23 now with significant improvement in mental status/jerks CAD hold beta-michael, statin and aspirin outpatient follow up for stress test hypothyroid synthroid Restless leg syndrome. hold gabapentin Chronic hypoxic respiratory failure due to interstitial lung disease? On 3 L at baseline Congestive heart failure on preserved ejection fraction Not on Lasix at home Morbid obesity? weight loss DVT prophylaxis:? Heparin DNR/DNI reason for continued hospitalization:initiaing HD Time Spent With Patient Time: Total time managing care of this patient today ____ minutes. Quality Stroke Does the patient have a stroke diagnosis?: No VTE Prior VTE?: No VTE Risk Level:: Medical - moderate - high VTE Device Contraindication: Treatment Not Indicated VTE Drug Contraindication: N/A - Med Ordered
--- NOTE | 2023-01-29 10:53 | PM.PNNEP ---
Subjective Subjective Date of Service: 01/29/23 Interval history: seen and examined had HD yesterday HD today aborted due to infiltration Physical Exam Vital Signs: Vital Signs: Last Vital Signs Temp 98 F 01/29/23 07:22 Pulse 80 01/29/23 07:44 Resp 20 01/29/23 07:22 BP 122/76 01/29/23 07:44 Pulse Ox 98 01/29/23 07:44 O2 Del Method Oxymask 01/29/23 07:22 O2 Flow Rate 4 01/29/23 07:22 Oxygen Flow Rate 2 01/23/23 14:12 BMI result Body Mass Index 39.7 Const: General: no acute distress and awake HEENT: Head: Yes normocephalic and Yes atraumatic Neck: Neck: Yes supple Resp: Auscultation: diminished lung sounds Cardio: Heart sounds: S1 normal heart sound present and S2 normal heart sound present GI: Palpation (GI): Soft to palpation and nontender Extrem: General: Yes AV fistula Right upper extremity: no edema Objective Data Labs 01/29/23 06:48 01/29/23 06:48 Labs: Laboratory Results - last 24 hr 01/28/23 01/28/23 01/28/23 18:00 18:00 18:45 WBC RBC Hgb Hct MCV MCH MCHC RDW Plt Count MPV Absolute Nucleated RBC Nucleated RBC % (auto) Sodium Potassium Chloride Carbon Dioxide Anion Gap BUN Creatinine Estim Creat Clear Calc Estimated GFR Fasting Glucose Calcium Urine Color Dark Yellow Urine Appearance Cloudy Urine pH 5.0 Ur Specific [place] 1.020 Urine Protein 30 (1+) H Urine Glucose (UA) Negative Urine Ketones Negative Urine Blood Negative Urine Nitrite Negative Ur Leukocyte Esterase Small (1+) H Urine RBC 0-2 Urine WBC 6-10 Ur Squamous Epith Cells 6-10 Urine Bacteria 1+ Hyaline Casts 3-5 Ur Random Sodium < 20.0 Urine Creatinine 199.69 Hep Bs Antigen Negative Hep Bs Antibody NONREACTIVE Hep B Core Total Ab Nonreactive 01/29/23 01/29/23 06:48 06:48 WBC 6.7 RBC 2.65 L Hgb 8.2 L Hct 26.1 L MCV 98.5 H MCH 30.9 MCHC 31.4 RDW 14.8 Plt Count 183 MPV 10.6 Absolute Nucleated RBC 0.000 Nucleated RBC % (auto) 0.0 Sodium 135 Potassium 3.7 D Chloride 100 Carbon Dioxide 25 Anion Gap 14 BUN 45 H Creatinine 5.72 H* Estim Creat Clear Calc 8.0 Estimated GFR 7 Fasting Glucose 90 Calcium 7.8 L Urine Color Urine Appearance Urine pH Ur Specific [place] Urine Protein Urine Glucose (UA) Urine Ketones Urine Blood Urine Nitrite Ur Leukocyte Esterase Urine RBC Urine WBC Ur Squamous Epith Cells Urine Bacteria Hyaline Casts Ur Random Sodium Urine Creatinine Hep Bs Antigen Hep Bs Antibody Hep B Core Total Ab Microbiology Microbiology Results: Microbiology 01/27/23 13:57 Blood - Venous Blood Culture - Preliminary No growth after 24 hours. 01/27/23 13:57 Blood - Venous Blood Culture - Preliminary No growth after 24 hours. Procedures Date of Service Date of Service: 01/29/23 Assessment & Plan Assessment and plan (1) DEVIN (acute kidney injury): Status: Acute (2) CKD (chronic kidney disease) stage 4, GFR 15-29 ml/min: Status: Acute Plan commenced on dialysis on 01/28 had access infiltration today DEVIN most likely due to acute tubular injury hypotensive earlier with SBP down to the 80s renal US negative for hydronephrosis known severe CKD followed by Dr Bingham baseline Scr 2-5 mg/dl multifactorial: -hypertensive kidney disease -nephron loss due to aging -residual kidney function loss from prior DEVIN h/o percutaneous LUE AVF 12/24/22 (Dr Guillermo) she a long history of CKD and was seeing nephrology in [place] (followed there by [facility] in [place]) REC HD in am rest access today monitor urine output follow kidney function and electrolytes Time Spent With Patient Time: Total time managing care of this patient today ____ minutes. Progress Note: Quality Stroke Does the patient have a stroke diagnosis?: No
[2023-01-29 11:26] VITALS: BP 124/70; PULSE 83; RESP 18; TEMP 36.3; O2SAT 97
[2023-01-29 15:16] VITALS: BP 148/67; PULSE 88; RESP 13; TEMP 36.3; O2SAT 91
[2023-01-29 19:18] VITALS: BP 153/70; PULSE 80; RESP 16; TEMP 36.6; O2SAT 95
[2023-01-29] MEDS: Atorvastatin Calcium 20 MG TABLET PO (20:51)
[2023-01-30] MEDS: 0.9 % Sodium Chloride Flush 3 ML SYRINGE IVFLUSH (00:09)
[2023-01-30 04:00] VITALS: BP 136/63; PULSE 79; RESP 20; TEMP 36.8; O2SAT 95
[2023-01-30] MEDS: Levothyroxine Sodium 100 MCG TABLET PO (06:00)
[2023-01-30] MEDS: Omeprazole 20 MG CAPSULE.DR PO (06:00)
[2023-01-30 07:10] LABS: Hematocrit 25.8 % (37.0-47.0); Hemoglobin 8.2 g/dl (12.0-16.0); Mean Corpuscular HGB Conc 31.8 g/dl (31.0-35.0); Mean Corpuscular Hemoglobin 30.8 pg (27.0-33.0); Mean Platelet Volume 10.8 fL (9.4-12.3); Platelet Count 196 X10*3/uL (160-400); Red Blood Count 2.66 X10*6/uL (4.20-5.50); Red Cell Distribution Width 14.8 % (11.0-16.0); White Blood Count 6.1 X10*3/uL (4.8-10.8)
[2023-01-30 07:44] VITALS: BP 139/63; PULSE 81; RESP 16; TEMP 37; O2SAT 98
[2023-01-30 07:46] LABS: Anion Gap 15 (12-20); Blood Urea Nitrogen 47 mg/dL (9-16); Calcium 8.1 mg/dL (8.4-10.2); Carbon Dioxide 24 mmol/L (22-29); Chloride 98 mmol/L (96-108); Creatinine Clr Calc Pharmacy 8.6; Estimated Glomerular Filt Rate 8; Glucose Fasting 115 mg/dL (60-99); Potassium 3.5 mmol/L (3.3-5.1); Sodium 133 mmol/L (135-145)
--- NOTE | 2023-01-30 08:05 | P.PNNP_ITS ---
Subjective Subjective Date of Service: 01/30/23 Interval history: seen and examined HD yesterday aborted due to infiltration d/w medical attending Physical Exam Vital Signs: Vital Signs: Last Vital Signs Temp 98.6 F 01/30/23 07:44 Pulse 81 01/30/23 07:44 Resp 16 01/30/23 07:44 BP 139/63 01/30/23 07:44 Pulse Ox 98 01/30/23 07:44 O2 Del Method Nasal Cannula 01/30/23 07:44 O2 Flow Rate 4 01/30/23 07:44 Oxygen Flow Rate 2 01/23/23 14:12 BMI result Body Mass Index 39.7 Const: General: no acute distress and awake HEENT: Head: Yes normocephalic and Yes atraumatic Neck: Neck: Yes supple Resp: Auscultation: diminished lung sounds Cardio: Heart sounds: S1 normal heart sound present and S2 normal heart sound present GI: Palpation (GI): Soft to palpation and nontender Extrem: General: Yes AV fistula Right upper extremity: no edema Objective Data Labs 01/30/23 06:45 01/30/23 06:45 Labs: Laboratory Results - last 24 hr 01/30/23 01/30/23 06:45 06:45 WBC 6.1 RBC 2.66 L Hgb 8.2 L Hct 25.8 L MCV 97.0 MCH 30.8 MCHC 31.8 RDW 14.8 Plt Count 196 MPV 10.8 Absolute Nucleated RBC 0.000 Nucleated RBC % (auto) 0.0 Sodium 133 L Potassium 3.5 Chloride 98 Carbon Dioxide 24 Anion Gap 15 BUN 47 H Creatinine 5.30 H* Estim Creat Clear Calc 8.6 Estimated GFR 8 Fasting Glucose 115 H Calcium 8.1 L Microbiology Microbiology Results: Microbiology 01/27/23 13:57 Blood - Venous Blood Culture - Preliminary No growth after 48 hours. 01/27/23 13:57 Blood - Venous Blood Culture - Preliminary No growth after 48 hours. 01/28/23 Unknown Urine clean catch - Urine reyes top Urine Culture - Preliminary Culture in progress. Procedures Date of Service Date of Service: 01/30/23 Assessment & Plan Assessment and plan (1) DEVIN (acute kidney injury): Status: Acute (2) CKD (chronic kidney disease) stage 4, GFR 15-29 ml/min: Status: Acute Plan commenced on dialysis on 01/28 had access infiltration yesterday DEVIN most likely due to acute tubular injury hypotensive earlier with SBP down to the 80s renal US negative for hydronephrosis known severe CKD followed by Dr Bingham baseline Scr 2-5 mg/dl multifactorial: -hypertensive kidney disease -nephron loss due to aging -residual kidney function loss from prior DEVIN h/o percutaneous LUE AVF 12/24/22 (Dr Guillermo) she a long history of CKD and was seeing nephrology in [place] (followed there by [facility] in [place]) REC HD today monitor urine output follow kidney function and electrolytes Time Spent With Patient Time: Total time managing care of this patient today ____ minutes. Progress Note: Quality Stroke Does the patient have a stroke diagnosis?: No
[2023-01-30] MEDS: Famotidine 20 MG TABLET PO (08:28)
[2023-01-30] MEDS: Sodium Bicarbonate 650 MG TABLET PO ×2 (08:28→19:29)
[2023-01-30] MEDS: Heparin Sodium,Porcine 5,000 UNIT/ML VIAL 5000 UNIT SUBCUT ×2 (08:28→19:29)
[2023-01-30] MEDS: Loratadine 10 MG TABLET PO (08:28)
[2023-01-30] MEDS: Aspirin Enteric Coated 81 MG TABLET.DR PO (08:28)
[2023-01-30] MEDS: Nystatin Powder 15 GM BOTTLE 1 APPL TOPICAL ×2 (08:29→21:20)
--- NOTE | 2023-01-30 08:42 | HO.PM.IMPN ---
Subjective Subjective Date of Service: 01/30/23 Interval History: continues to be more alert Physical Exam Vital Signs: Vital Signs: Last Vital Signs Temp 98.6 F 01/30/23 07:44 Pulse 81 01/30/23 07:44 Resp 16 01/30/23 07:44 BP 139/63 01/30/23 07:44 Pulse Ox 98 01/30/23 07:44 O2 Del Method Nasal Cannula 01/30/23 07:44 O2 Flow Rate 4 01/30/23 07:44 Oxygen Flow Rate 2 01/23/23 14:12 BMI result Body Mass Index 39.7 Const: General: no acute distress and awake HEENT: Head: Yes normocephalic and Yes atraumatic Neck: Neck: Yes supple Resp: Auscultation: diminished lung sounds Cardio: Heart sounds: S1 normal heart sound present and S2 normal heart sound present GI: Palpation (GI): Soft to palpation and nontender Extrem: General: Yes AV fistula Right upper extremity: no edema Objective Data Active Medications Acetaminophen (Acetaminophen 325 Mg Tablet) 650 mg PO Q6H PRN PRN Reason: Pain, Mild (Pain Scale 1-3) Last Admin: 01/29/23 08:28 Dose: 650 mg Documented By: ZAY Albuterol Sulfate (Albuterol Sulfate 90 Mcg 8 Gm Inhaler) 2 puff INHALE Q4H PRN PRN Reason: Shortness Of Breath Or Wheezing Last Admin: 01/26/23 11:39 Dose: 2 puff Documented By: MCKAYLA Aspirin (Aspirin Enteric Coated 81 Mg Tablet.Dr) 81 mg PO DAILY [facility] Last Admin: 01/30/23 08:28 Dose: 81 mg Documented By: ROSA Atorvastatin Calcium (Atorvastatin Calcium 20 Mg Tablet) 20 mg PO BEDTIME [facility] Last Admin: 01/29/23 20:51 Dose: 20 mg Documented By: ANU Benzonatate (Benzonatate 100 Mg Capsule) 100 mg PO TID PRN PRN Reason: cough Last Admin: 01/26/23 11:39 Dose: 100 mg Documented By: MCKAYLA Famotidine (Famotidine 20 Mg Tablet) 20 mg PO DAILY [facility] Last Admin: 01/30/23 08:28 Dose: 20 mg Documented By: ROSA Heparin Sodium (Porcine) (Heparin Sodium,Porcine 5,000 Unit/Ml Vial) 5,000 unit SUBCUT Q12H [facility] Last Admin: 01/30/23 08:28 Dose: 5,000 unit Documented By: ROSA Levothyroxine Sodium (Levothyroxine Sodium 100 Mcg Tablet) 100 mcg PO DAILY@0600 [facility] Last Admin: 01/30/23 06:00 Dose: 100 mcg Documented By: KATIE Loratadine (Loratadine 10 Mg Tablet) 10 mg PO DAILY [facility] Last Admin: 01/30/23 08:28 Dose: 10 mg Documented By: ROSA Melatonin (Melatonin 3 Mg Tablet) 6 mg PO BEDTIME PRN PRN Reason: Insomnia Last Admin: 01/27/23 23:30 Dose: 6 mg Documented By: LANCE Nystatin (Nystatin Powder 15 Gm Bottle) 1 appl TOPICAL BID [facility]; Protocol Last Admin: 01/30/23 08:29 Dose: 1 appl Documented By: ROSA Omeprazole (Omeprazole 20 Mg Capsule.Dr) 20 mg PO DAILY@0630 [facility] Last Admin: 01/30/23 06:00 Dose: 20 mg Documented By: KATIE Ondansetron HCl (Ondansetron Hcl 4 Mg/2 Ml Vial) 4 mg IVPUSH Q8H PRN PRN Reason: Nausea and Vomiting Sodium Bicarbonate (Sodium Bicarbonate 650 Mg Tablet) 650 mg PO BID [facility] Last Admin: 01/30/23 08:28 Dose: 650 mg Documented By: ROSA Sodium Chloride (0.9 % Sodium Chloride Flush 3 Ml Syringe) 3 ml IVFLUSH QSHIFT [facility] Last Admin: 01/30/23 08:28 Dose: 3 ml Documented By: ROSA Labs 01/30/23 06:45 01/30/23 06:45 Labs: Laboratory Results - last 24 hr 01/30/23 01/30/23 06:45 06:45 MCV 97.0 MCH 30.8 MCHC 31.8 RDW 14.8 Plt Count 196 MPV 10.8 Absolute Nucleated RBC 0.000 Nucleated RBC % (auto) 0.0 Anion Gap 15 Estim Creat Clear Calc 8.6 Estimated GFR 8 Fasting Glucose 115 H Calcium 8.1 L Microbiology Microbiology Results: Microbiology 01/27/23 13:57 Blood Culture - Preliminary Blood - Venous No growth after 48 hours. 01/27/23 13:57 Blood Culture - Preliminary Blood - Venous No growth after 48 hours. 01/28/23 Unknown Urine Culture - Preliminary Urine clean catch - Urine reyes top Culture in progress. Assessment and Plan (1) DEVIN (acute kidney injury): Status: Acute Plan ?82F PMH hypothyroidism, CKD IV, essential hypertension, restless leg syndrome, chronic hypoxemic respiratory failure due to interstitial lung disease, congestive heart failure with preserved ejection fraction, coronary artery disease presented to ED 01/23/23 with weakness and awaiting snf, was admitted 01/26/23 for oliguria, found to have dvein on CKD IV DEVIN on CKDIV complicated by acute metabolic encephalopathy due to hypotension - from hypovolemia not sepsis started HD 01/28/23, unable to do 01/29 do to fistula infiltration, plan to retry again today now with significant improvement in mental status/jerks CAD hold beta-michael, statin and aspirin outpatient follow up for stress test hypothyroid synthroid Restless leg syndrome. hold gabapentin Chronic hypoxic respiratory failure due to interstitial lung disease? On 3 L at baseline Congestive heart failure on preserved ejection fraction Not on Lasix at home Morbid obesity? weight loss DVT prophylaxis:? Heparin DNR/DNI reason for continued hospitalization:initiaing HD Time Spent With Patient Time: Total time managing care of this patient today ____ minutes. Quality Stroke Does the patient have a stroke diagnosis?: No VTE Prior VTE?: No VTE Risk Level:: Medical - moderate - high VTE Device Contraindication: Treatment Not Indicated VTE Drug Contraindication: N/A - Med Ordered
--- NOTE | 2023-01-30 10:17 | MHC.CM.PN ---
Per ROUNDS discussion, Patient is starting new HD and is not yet medically cleared for dc. PT is recommending STR and CM will continue to follow.
[2023-01-30 15:35] VITALS: BP 119/53; PULSE 77; RESP 18; TEMP 36.3; O2SAT 98
[2023-01-30 18:41] VITALS: BP 134/68; PULSE 76; RESP 17; TEMP 36.5; O2SAT 100
[2023-01-30] MEDS: Atorvastatin Calcium 20 MG TABLET PO (19:29)
[2023-01-30] MEDS: Morphine Sulfate Immed Release 15 MG TABLET PO (21:20)
[2023-01-31] MEDS: Benzonatate 100 MG CAPSULE PO ×3 (00:02→19:50)
[2023-01-31] MEDS: polyethylene glycoL 3350 17 GM POWD.PACK PO (00:03)
[2023-01-31 03:15] VITALS: BP 120/54; PULSE 90; RESP 20; TEMP 36.5; O2SAT 97
[2023-01-31] MEDS: Levothyroxine Sodium 100 MCG TABLET PO (06:13)
[2023-01-31] MEDS: Omeprazole 20 MG CAPSULE.DR PO (06:13)
[2023-01-31 06:39] LABS: Hematocrit 26.7 % (37.0-47.0); Hemoglobin 8.5 g/dl (12.0-16.0); Mean Corpuscular HGB Conc 31.8 g/dl (31.0-35.0); Mean Corpuscular Hemoglobin 31.4 pg (27.0-33.0); Mean Corpuscular Volume 98.5 fL (80.0-98.0); Mean Platelet Volume 10.7 fL (9.4-12.3); Platelet Count 204 X10*3/uL (160-400); Red Blood Count 2.71 X10*6/uL (4.20-5.50); Red Cell Distribution Width 15.1 % (11.0-16.0); White Blood Count 5.9 X10*3/uL (4.8-10.8)
[2023-01-31 06:47] LABS: Prothrombin Time 11.9 SEC (10.0-13.1)
[2023-01-31 06:50] LABS: Partial Thromboplastin Time 26.4 SEC (26.0-36.4)
[2023-01-31 07:05] LABS: Anion Gap 12 (12-20); Blood Urea Nitrogen 44 mg/dL (9-16); Calcium 8.4 mg/dL (8.4-10.2); Carbon Dioxide 29 mmol/L (22-29); Chloride 104 mmol/L (96-108); Creatinine Clr Calc Pharmacy 11.4; Estimated Glomerular Filt Rate 11; Glucose Fasting 101 mg/dL (60-99); Potassium 3.8 mmol/L (3.3-5.1); Sodium 141 mmol/L (135-145)
[2023-01-31 07:20] VITALS: BP 126/65; PULSE 94; RESP 18; TEMP 36.9; O2SAT 94
--- NOTE | 2023-01-31 08:16 | PM.PNNEP ---
Subjective Subjective Date of Service: 01/31/23 Interval history: seen and examined d/w medical attending more alert Physical Exam Vital Signs: Vital Signs: Last Vital Signs Temp 98.4 F 01/31/23 07:20 Pulse 94 01/31/23 07:20 Resp 18 01/31/23 07:20 BP 126/65 01/31/23 07:20 Pulse Ox 94 01/31/23 07:20 O2 Del Method Nasal Cannula 01/31/23 07:20 O2 Flow Rate 4 01/31/23 07:20 Oxygen Flow Rate 2 01/23/23 14:12 BMI result Body Mass Index 39.7 Const: General: no acute distress and awake HEENT: Head: Yes normocephalic and Yes atraumatic Neck: Neck: Yes supple Resp: Auscultation: diminished lung sounds Cardio: Heart sounds: S1 normal heart sound present and S2 normal heart sound present GI: Palpation (GI): Soft to palpation and nontender Extrem: General: Yes AV fistula Right upper extremity: no edema Objective Data Labs 01/31/23 06:00 01/31/23 06:00 Labs: Laboratory Results - last 24 hr 01/31/23 01/31/23 01/31/23 06:00 06:00 06:00 WBC 5.9 RBC 2.71 L Hgb 8.5 L Hct 26.7 L MCV 98.5 H MCH 31.4 MCHC 31.8 RDW 15.1 Plt Count 204 MPV 10.7 Absolute Nucleated RBC 0.000 Nucleated RBC % (auto) 0.0 PT 11.9 INR 1.0 APTT 26.4 Sodium 141 Potassium 3.8 Chloride 104 Carbon Dioxide 29 Anion Gap 12 BUN 44 H Creatinine 4.03 H* Estim Creat Clear Calc 11.4 Estimated GFR 11 Fasting Glucose 101 H Calcium 8.4 Microbiology Microbiology Results: Microbiology 01/28/23 Unknown Urine clean catch - Urine reyes top Urine Culture - Preliminary Gram negative hieu 01/27/23 13:57 Blood - Venous Blood Culture - Preliminary No growth after 48 hours. 01/27/23 13:57 Blood - Venous Blood Culture - Preliminary No growth after 48 hours. Procedures Date of Service Date of Service: 01/31/23 Assessment & Plan Assessment and plan (1) DEVIN (acute kidney injury): Status: Acute (2) CKD (chronic kidney disease) stage 4, GFR 15-29 ml/min: Status: Acute Plan Scr better ? renal recovery' HD on 01/28 had access infiltration yesterday again DEVIN most likely due to acute tubular injury hypotensive earlier with SBP down to the 80s renal US negative for hydronephrosis known severe CKD followed by Dr Bingham baseline Scr 2-5 mg/dl multifactorial: -hypertensive kidney disease -nephron loss due to aging -residual kidney function loss from prior DEVIN h/o percutaneous LUE AVF 12/24/22 (Dr Guillermo) she a long history of CKD and was seeing nephrology in [place] (followed there by [facility] in [place]) REC hold HD over week end monitor urine output follow kidney function and electrolytes Time Spent With Patient Time: Total time managing care of this patient today ____ minutes. Progress Note: Quality Stroke Does the patient have a stroke diagnosis?: No
[2023-01-31] MEDS: Sodium Bicarbonate 650 MG TABLET PO ×2 (08:48→19:50)
[2023-01-31] MEDS: Loratadine 10 MG TABLET PO (08:48)
[2023-01-31] MEDS: Famotidine 20 MG TABLET PO (08:48)
[2023-01-31] MEDS: Heparin Sodium,Porcine 5,000 UNIT/ML VIAL 5000 UNIT SUBCUT ×2 (08:48→19:49)
[2023-01-31] MEDS: Aspirin Enteric Coated 81 MG TABLET.DR PO (08:48)
--- NOTE | 2023-01-31 09:56 | HO.PM.IMPN ---
Subjective Subjective Date of Service: 01/31/23 Interval History: improved Physical Exam Vital Signs: Vital Signs: Last Vital Signs Temp 98.4 F 01/31/23 07:20 Pulse 94 01/31/23 07:20 Resp 18 01/31/23 07:20 BP 126/65 01/31/23 07:20 Pulse Ox 94 01/31/23 07:20 O2 Del Method Nasal Cannula 01/31/23 07:20 O2 Flow Rate 4 01/31/23 07:20 Oxygen Flow Rate 2 01/23/23 14:12 BMI result Body Mass Index 39.7 Const: General: no acute distress and awake HEENT: Head: Yes normocephalic and Yes atraumatic Neck: Neck: Yes supple Resp: Auscultation: diminished lung sounds Cardio: Heart sounds: S1 normal heart sound present and S2 normal heart sound present GI: Palpation (GI): Soft to palpation and nontender Extrem: General: Yes AV fistula Right upper extremity: no edema Objective Data Active Medications Acetaminophen (Acetaminophen 325 Mg Tablet) 650 mg PO Q6H PRN PRN Reason: Pain, Mild (Pain Scale 1-3) Last Admin: 01/29/23 08:28 Dose: 650 mg Documented By: ZAY Albuterol Sulfate (Albuterol Sulfate 90 Mcg 8 Gm Inhaler) 2 puff INHALE Q4H PRN PRN Reason: Shortness Of Breath Or Wheezing Last Admin: 01/26/23 11:39 Dose: 2 puff Documented By: MCKAYLA Aspirin (Aspirin Enteric Coated 81 Mg Tablet.) 81 mg PO DAILY [facility] Last Admin: 01/31/23 08:48 Dose: 81 mg Documented By: DAVID Atorvastatin Calcium (Atorvastatin Calcium 20 Mg Tablet) 20 mg PO BEDTIME [facility] Last Admin: 01/30/23 19:29 Dose: 20 mg Documented By: JAYLEEN Benzonatate (Benzonatate 100 Mg Capsule) 100 mg PO TID PRN PRN Reason: cough Last Admin: 01/31/23 09:00 Dose: 100 mg Documented By: DAVID Famotidine (Famotidine 20 Mg Tablet) 20 mg PO DAILY [facility] Last Admin: 01/31/23 08:48 Dose: 20 mg Documented By: DAVID Heparin Sodium (Porcine) (Heparin Sodium,Porcine 5,000 Unit/Ml Vial) 5,000 unit SUBCUT Q12H [facility] Last Admin: 01/31/23 08:48 Dose: 5,000 unit Documented By: DAVID Levothyroxine Sodium (Levothyroxine Sodium 100 Mcg Tablet) 100 mcg PO DAILY@0600 [facility] Last Admin: 01/31/23 06:13 Dose: 100 mcg Documented By: JAYLEEN Loratadine (Loratadine 10 Mg Tablet) 10 mg PO DAILY [facility] Last Admin: 01/31/23 08:48 Dose: 10 mg Documented By: DAVID Melatonin (Melatonin 3 Mg Tablet) 6 mg PO BEDTIME PRN PRN Reason: Insomnia Last Admin: 01/27/23 23:30 Dose: 6 mg Documented By: LANCE Morphine Sulfate (Morphine Sulfate Immed Release 15 Mg Tablet) 15 mg PO Q6H PRN PRN Reason: Pain, Moderate(Pain Scale 4-6) Last Admin: 01/30/23 21:20 Dose: 15 mg Documented By: JAYLEEN Nystatin (Nystatin Powder 15 Gm Bottle) 1 appl TOPICAL BID [facility]; Protocol Last Admin: 01/30/23 21:20 Dose: 1 appl Documented By: JAYLEEN Omeprazole (Omeprazole 20 Mg Capsule.Dr) 20 mg PO DAILY@0630 [facility] Last Admin: 01/31/23 06:13 Dose: 20 mg Documented By: JAYLEEN Ondansetron HCl (Ondansetron Hcl 4 Mg/2 Ml Vial) 4 mg IVPUSH Q8H PRN PRN Reason: Nausea and Vomiting Sodium Bicarbonate (Sodium Bicarbonate 650 Mg Tablet) 650 mg PO BID [facility] Last Admin: 01/31/23 08:48 Dose: 650 mg Documented By: DAVID Sodium Chloride (0.9 % Sodium Chloride Flush 3 Ml Syringe) 3 ml IVFLUSH QSHIFT [facility] Last Admin: 01/31/23 08:52 Dose: Not Given Documented By: DAVID Non-Admin Reason: No Access Labs 01/31/23 06:00 01/31/23 06:00 Labs: Laboratory Results - last 24 hr 01/31/23 01/31/23 01/31/23 06:00 06:00 06:00 MCV 98.5 H MCH 31.4 MCHC 31.8 RDW 15.1 Plt Count 204 MPV 10.7 Absolute Nucleated RBC 0.000 Nucleated RBC % (auto) 0.0 PT 11.9 INR 1.0 APTT 26.4 Anion Gap 12 Estim Creat Clear Calc 11.4 Estimated GFR 11 Fasting Glucose 101 H Calcium 8.4 Microbiology Microbiology Results: Microbiology 01/28/23 Unknown Urine Culture - Preliminary Urine clean catch - Urine reyes top Proteus mirabilis Gram positive cocci Assessment and Plan (1) DEVIN (acute kidney injury): Status: Acute Plan ?82F PMH hypothyroidism, CKD IV, essential hypertension, restless leg syndrome, chronic hypoxemic respiratory failure due to interstitial lung disease, congestive heart failure with preserved ejection fraction, coronary artery disease presented to ED 01/23/23 with weakness and awaiting snf, was admitted 01/26/23 for oliguria, found to have devin on CKD IV DEVIN on CKDIV complicated by acute metabolic encephalopathy due to hypotension - from hypovolemia not sepsis started HD 01/28/23, but unable to continue due to avf imaturity now with significant improvement in mental status/jerks, creatinine improving may not need further HD inpatient will check bmp tomorrow, if continues to improved plan for DC otherwise permacath on 02/02/23 CAD hold beta-michael, statin and aspirin outpatient follow up for stress test hypothyroid synthroid Restless leg syndrome. hold gabapentin Chronic hypoxic respiratory failure due to interstitial lung disease? On 3 L at baseline Congestive heart failure on preserved ejection fraction Not on Lasix at home Morbid obesity? weight loss DVT prophylaxis:? Heparin DNR/DNI reason for continued hospitalization:monitor devin Time Spent With Patient Time: Total time managing care of this patient today ____ minutes. Quality Stroke Does the patient have a stroke diagnosis?: No VTE Prior VTE?: No VTE Risk Level:: Medical - moderate - high VTE Device Contraindication: Treatment Not Indicated VTE Drug Contraindication: N/A - Med Ordered
[2023-01-31 11:11] VITALS: BP 117/70; PULSE 89; RESP 18; TEMP 36.8; O2SAT 92
[2023-01-31 15:18] VITALS: BP 129/59; PULSE 86; RESP 14; TEMP 36.8; O2SAT 97
[2023-01-31 19:01] VITALS: BP 149/67; PULSE 86; RESP 14; TEMP 36.3; O2SAT 94
[2023-01-31] MEDS: Melatonin 3 MG TABLET 6 MG PO (19:50)
[2023-01-31] MEDS: Morphine Sulfate Immed Release 15 MG TABLET PO (19:50)
[2023-01-31] MEDS: Atorvastatin Calcium 20 MG TABLET PO (19:50)
[2023-01-31] MEDS: 0.9 % Sodium Chloride Flush 3 ML SYRINGE IVFLUSH (19:50)
[2023-01-31] MEDS: Nystatin Powder 15 GM BOTTLE 1 APPL TOPICAL (19:50)
[2023-02-01 01:00] VITALS: RESP 18; O2SAT 94
[2023-02-01 01:33] VITALS: PULSE 90; RESP 16; O2SAT 93
[2023-02-01] MEDS: Albuterol/Iprat 2.5/0.5MG 3 ML AMPUL.NEB INHALE (01:48)
[2023-02-01] MEDS: Omeprazole 20 MG CAPSULE.DR PO (05:54)
[2023-02-01] MEDS: Levothyroxine Sodium 100 MCG TABLET PO (05:54)
[2023-02-01] MEDS: Benzonatate 100 MG CAPSULE PO ×2 (05:55→15:31)
[2023-02-01 06:40] LABS: Hematocrit 26.4 % (37.0-47.0); Hemoglobin 8.5 g/dl (12.0-16.0); Mean Corpuscular HGB Conc 32.2 g/dl (31.0-35.0); Mean Corpuscular Hemoglobin 32.1 pg (27.0-33.0); Mean Corpuscular Volume 99.6 fL (80.0-98.0); Platelet Count 198 X10*3/uL (160-400); Red Blood Count 2.65 X10*6/uL (4.20-5.50); Red Cell Distribution Width 15.5 % (11.0-16.0); White Blood Count 6.8 X10*3/uL (4.8-10.8)
[2023-02-01 06:54] LABS: Anion Gap 13 (12-20); Blood Urea Nitrogen 39 mg/dL (9-16); Calcium 8.5 mg/dL (8.4-10.2); Carbon Dioxide 26 mmol/L (22-29); Chloride 106 mmol/L (96-108); Creatinine Clr Calc Pharmacy 15.6; Estimated Glomerular Filt Rate 15; Glucose Fasting 111 mg/dL (60-99); Potassium 3.9 mmol/L (3.3-5.1); Sodium 141 mmol/L (135-145)
[2023-02-01 07:21] VITALS: BP 141/65; PULSE 93; RESP 17; TEMP 36.2; O2SAT 91
--- NOTE | 2023-02-01 07:48 | PM.PNNEP ---
Subjective Subjective Date of Service: 02/01/23 Interval history: seen and examined no complains Physical Exam Vital Signs: Vital Signs: Last Vital Signs Temp 97.2 F 02/01/23 07:21 Pulse 93 02/01/23 07:21 Resp 17 02/01/23 07:21 BP 141/65 H 02/01/23 07:21 Pulse Ox 91 L 02/01/23 07:21 O2 Del Method Nasal Cannula 02/01/23 07:21 O2 Flow Rate 4 02/01/23 07:21 Oxygen Flow Rate 2 01/23/23 14:12 BMI result Body Mass Index 39.7 Const: General: no acute distress and awake HEENT: Head: Yes normocephalic and Yes atraumatic Neck: Neck: Yes supple Resp: Auscultation: diminished lung sounds Cardio: Heart sounds: S1 normal heart sound present and S2 normal heart sound present GI: Palpation (GI): Soft to palpation and nontender Extrem: General: Yes AV fistula Right upper extremity: no edema Objective Data Labs 02/01/23 06:34 02/01/23 06:34 Labs: Laboratory Results - last 24 hr 02/01/23 02/01/23 06:34 06:34 WBC 6.8 RBC 2.65 L Hgb 8.5 L Hct 26.4 L MCV 99.6 H MCH 32.1 MCHC 32.2 RDW 15.5 Plt Count 198 MPV 10.0 Absolute Nucleated RBC 0.000 Nucleated RBC % (auto) 0.0 Sodium 141 Potassium 3.9 Chloride 106 Carbon Dioxide 26 Anion Gap 13 BUN 39 H Creatinine 2.94 H Estim Creat Clear Calc 15.6 Estimated GFR 15 Fasting Glucose 111 H Calcium 8.5 Microbiology Microbiology Results: Microbiology 01/28/23 Unknown Urine clean catch - Urine reyes top Urine Culture - Preliminary Proteus mirabilis Gram positive cocci 01/27/23 13:57 Blood - Venous Blood Culture - Preliminary No growth after 48 hours. 01/27/23 13:57 Blood - Venous Blood Culture - Preliminary No growth after 48 hours. Procedures Date of Service Date of Service: 02/01/23 Assessment & Plan Assessment and plan (1) DEVIN (acute kidney injury): Status: Acute (2) CKD (chronic kidney disease) stage 4, GFR 15-29 ml/min: Status: Acute Plan kidney function improving HD on 7/19 DEVIN due to acute tubular injury recovering hypotensive earlier with SBP down to the 80s renal US negative for hydronephrosis known severe CKD followed by Dr Bingham baseline Scr 2-5 mg/dl multifactorial: -hypertensive kidney disease -nephron loss due to aging -residual kidney function loss from prior DEVIN h/o percutaneous LUE AVF 12/24/22 (Dr Guillermo) she a long history of CKD and was seeing nephrology in [place] (followed there by [facility] kidney group in [place]) REC no more HD no plans for placement dialysis catheter follow kidney function and electrolytes Time Spent With Patient Time: Total time managing care of this patient today ____ minutes. Progress Note: Quality Stroke Does the patient have a stroke diagnosis?: No
[2023-02-01] MEDS: Loratadine 10 MG TABLET PO (08:50)
[2023-02-01] MEDS: Sodium Bicarbonate 650 MG TABLET PO ×2 (08:50→20:20)
[2023-02-01] MEDS: Famotidine 20 MG TABLET PO (08:50)
[2023-02-01] MEDS: Heparin Sodium,Porcine 5,000 UNIT/ML VIAL 5000 UNIT SUBCUT ×2 (08:51→20:20)
[2023-02-01] MEDS: 0.9 % Sodium Chloride Flush 3 ML SYRINGE IVFLUSH ×3 (08:51→23:38)
[2023-02-01] MEDS: Nystatin Powder 15 GM BOTTLE 1 APPL TOPICAL (08:52)
--- NOTE | 2023-02-01 09:07 | P.DS_ITS ---
DS: Providers Provider Date of Service: 02/02/23 Date of admission: 01/26/23 19:32 Primary care physician: Christina Paiz MD Consults: 01/26/23 19:45 Consult to Nephrology Routine Consulting Provider: Dandre Bennett Reason for consultation: DEVIN on CKD DS: Diagnosis Discharge Diagnosis (1) DEVIN (acute kidney injury): Status: Acute (2) CKD (chronic kidney disease) stage 4, GFR 15-29 ml/min: Status: Acute DS: Summary Hospital Course Hospital Course: from initial hpi: 82-year-old female with pertinent history of hypothyroidism, essential hypertension, restless leg syndrome, chronic hypoxemic respiratory failure due to interstitial lung disease, congestive heart failure with preserved ejection fraction, coronary artery disease who initially presented to the ER on 01/23 for generalized weakness and was kept in the ER for case management.? As per nursing reports, patient was having decreased urine output and BMP she was noted to have elevated creatinine and hospital medicine team consulted for admission on 01/26.? Patient denies any new symptoms at the time of my evaluation.? She denies abdominal discomfort, dysuria, urgency or hesitancy.? Nursing reported decreased urine output and nothing on bladder scan.? No fever, chills, chest discomfort, palpitations, shortness of breath, abdominal pain, changes in bowel habits. Of note, patient recently admitted and discharged on 12/31 with NSTEMI. hospital course: Patient was admitted for DEVIN on CKD 4 complicated by acute toxic metabolic encephalopathy likely combination of uremia and medication-related. Patient was hypo intensive due to hypovolemia not sepsis. She had 1 session of hemodialysis on 01/28/2023 via her AV fistula, but was unable to continue further treatments to to infiltration. However, patient's mental status returned to baseline creatinine improved back to baseline and did not require further hemodialysis. Patient will be discharged home, gabapentin has been decreased to 100 mg daily. She will follow-up with Nephrology. For coronary disease she was continued on aspirin statin. Her metoprolol was held for hypotension but can be restarted on discharge. She should follow up outpatient with Cardiology for stress test. For hypothyroidism she was continued on Synthroid. For chronic hypoxic respiratory failure due to interstitial lung disease she was continued on 3 L O2. For chronic diastolic CHF she is euvolemic at time of discharge. For morbid obesity weight loss recommended. patient will be discharged to snf for str, she is expected to need less than 30 days. Time Spent with Patient Time attestation: Total time managing care of this patient today ____ minutes. Discharge coordination time: Greater than 30 minutes Quality: Safe Use of Opioids Does Pt have an Active Cancer Diagnosis on the Problem List?: No Quality: Stroke Does the patient have a stroke diagnosis?: No Physical Exam Vital Signs: Vital Signs: Last Vital Signs Temp 97.2 F 02/01/23 07:21 Pulse 93 02/01/23 07:21 Resp 17 02/01/23 07:21 BP 141/65 H 02/01/23 07:21 Pulse Ox 91 L 02/01/23 07:21 O2 Del Method Nasal Cannula 02/01/23 07:21 O2 Flow Rate 4 02/01/23 07:21 Oxygen Flow Rate 2 01/23/23 14:12 BMI result Body Mass Index 39.7 Const: General: no acute distress and awake HEENT: Head: Yes normocephalic and Yes atraumatic Neck: Neck: Yes supple Resp: Auscultation: diminished lung sounds Cardio: Heart sounds: S1 normal heart sound present and S2 normal heart sound present GI: Palpation (GI): Soft to palpation and nontender Extrem: General: Yes AV fistula Right upper extremity: no edema DS: Data Data Completed and Pending Completed studies during hospitalization [Text1]: Procedures Assistance with Respiratory Ventilation, Less than 24 Consecutive Hours, Continuous Positive Airway Pressure (12/28/22) Labs on day of discharge: Laboratory Results - last 24 hr 02/01/23 02/01/23 06:34 06:34 WBC 6.8 RBC 2.65 L Hgb 8.5 L Hct 26.4 L MCV 99.6 H MCH 32.1 MCHC 32.2 RDW 15.5 Plt Count 198 MPV 10.0 Absolute Nucleated RBC 0.000 Nucleated RBC % (auto) 0.0 Sodium 141 Potassium 3.9 Chloride 106 Carbon Dioxide 26 Anion Gap 13 BUN 39 H Creatinine 2.94 H Estim Creat Clear Calc 15.6 Estimated GFR 15 Fasting Glucose 111 H Calcium 8.5 Preliminary micro results at discharge 01/27/23 13:57 Blood Culture - Preliminary Blood - Venous No growth after 48 hours. 01/27/23 13:57 Blood Culture - Preliminary Blood - Venous No growth after 48 hours. Discharge Plan Discharge Anticipated Discharge Date/Time: 02/01/23 09:04 Patient Disposition: Xfer SNF Discharge Diagnosis: devin Referrals: [facility] [Outside] Christina Paiz MD [Primary Care Provider] - 1 Week Discharge Medications: New gabapentin 100 mg capsule 100 mg PO DAILY Qty: 30 0RF Continued sodium bicarbonate 325 mg tablet 650 mg PO BID allopurinol 100 mg tablet 100 mg PO DAILY levothyroxine 100 mcg tablet 100 mcg PO DAILY@0600 citalopram 20 mg tablet 20 mg PO DAILY famotidine 20 mg tablet 20 mg PO DAILY pantoprazole 40 mg tablet,delayed release (DR/EC) 40 mg PO DAILY@0630 albuterol sulfate 90 mcg/actuation HFA aerosol inhaler 2 puff inhalation Q4-6H PRN (Reason: Shortness Of Breath Or Wheezing) cetirizine [Zyrtec] 10 mg Tablet 10 mg PO DAILY aspirin 81 mg Tablet,Delayed Release (Dr/Ec) 81 mg PO DAILY Qty: 90 0RF metoprolol tartrate 25 mg tablet 12.5 mg PO BID Qty: 180 0RF guaifenesin 400 mg tablet 800 mg PO TID benzonatate 100 mg capsule 100 mg PO TID PRN (Reason: cough) morphine 15 mg tablet 15 mg PO Q4-6H PRN (Reason: pain) atorvastatin 20 mg tablet 20 mg PO BEDTIME ranolazine 500 mg tablet extended release 12 hr 500 mg PO BID 90 Days Qty: 180 3RF nitroglycerin 0.4 mg tablet, sublingual 0.4 mg sublingual Q5M PRN (Reason: chest pain) Qty: 30 5RF Rx Instructions: do not exceed 3 doses per episode Discontinued gabapentin 300 mg Capsule 300 mg PO DAILY Qty: 90 0RF Discharge Orders: Discharge Order (Routine); Ordered 02/02/23 Ordered By: Evgeny Scott Diet: Advance to usual diet Activity on Discharge: As tolerated Stand Alone Forms: Patient Portal Discharge page Care Plan Goals: recovery Health Concerns: ckd Plan of Treatment: decrease gabapentin to 100mg daily, follow up with nephro Assessment: see above
--- NOTE | 2023-02-01 11:24 | W.MHC.F2F ---
Service Date Service Date: 02/01/23 Encounter Date of encounter: 02/01/23 Reasons for Services Signs and symptoms assessed: weakness Reason for penitentiary: medication management, medication treatment and teach disease management Homebound: Leaving the home is medically contraindicated at this time without the asist of a device and/or another person due th the listed conditions above and below. Reason homebound: unsteady gait / fall risk Certification: Based on the above findings, I certify that this patient is confined to the home and needs intermittent penitentiary care, physical therapy and/or speech therapy, or continues to need occupational therapy. The patient is under my care, and I have initiated the establishment of the plan of care. The patient will be followed by a physician who will periodically review the plan of care. Time Spent With Patient Time: Total time managing care of this patient today ____ minutes.
--- NOTE | 2023-02-01 12:17 | P.PNIM_ITS ---
Subjective Subjective Date of Service: 02/01/23 Interval History: improved Physical Exam Vital Signs: Vital Signs: Last Vital Signs Temp 97.2 F 02/01/23 07:21 Pulse 93 02/01/23 07:21 Resp 17 02/01/23 07:21 BP 141/65 H 02/01/23 07:21 Pulse Ox 91 L 02/01/23 07:21 O2 Del Method Nasal Cannula 02/01/23 07:21 O2 Flow Rate 4 02/01/23 07:21 Oxygen Flow Rate 2 01/23/23 14:12 BMI result Body Mass Index 39.7 Const: General: no acute distress and awake HEENT: Head: Yes normocephalic and Yes atraumatic Neck: Neck: Yes supple Resp: Auscultation: diminished lung sounds Cardio: Heart sounds: S1 normal heart sound present and S2 normal heart sound present GI: Palpation (GI): Soft to palpation and nontender Extrem: General: Yes AV fistula Right upper extremity: no edema Objective Data Active Medications Acetaminophen (Acetaminophen 325 Mg Tablet) 650 mg PO Q6H PRN PRN Reason: Pain, Mild (Pain Scale 1-3) Last Admin: 01/29/23 08:28 Dose: 650 mg Documented By: ZAY Albuterol Sulfate (Albuterol Sulfate 90 Mcg 8 Gm Inhaler) 2 puff INHALE Q4H PRN PRN Reason: Shortness Of Breath Or Wheezing Last Admin: 01/26/23 11:39 Dose: 2 puff Documented By: MCKAYLA Albuterol/Ipratropium (Albuterol/Iprat 2.5/0.5mg 3 Ml Ampul.Neb) 3 ml INHALE Q4H PRN PRN Reason: Wheezing Last Admin: 02/01/23 01:48 Dose: 3 ml Documented By: JUAN Aspirin (Aspirin Enteric Coated 81 Mg Tablet.) 81 mg PO DAILY [facility] Last Admin: 01/31/23 08:48 Dose: 81 mg Documented By: DAVID Atorvastatin Calcium (Atorvastatin Calcium 20 Mg Tablet) 20 mg PO BEDTIME [facility] Last Admin: 01/31/23 19:50 Dose: 20 mg Documented By: JAYLEEN Benzonatate (Benzonatate 100 Mg Capsule) 100 mg PO TID PRN PRN Reason: cough Last Admin: 02/01/23 05:55 Dose: 100 mg Documented By: JAYLEEN Famotidine (Famotidine 20 Mg Tablet) 20 mg PO DAILY [facility] Last Admin: 02/01/23 08:50 Dose: 20 mg Documented By: BARBARA Heparin Sodium (Porcine) (Heparin Sodium,Porcine 5,000 Unit/Ml Vial) 5,000 unit SUBCUT Q12H [facility] Last Admin: 02/01/23 08:51 Dose: 5,000 unit Documented By: BARBARA Levothyroxine Sodium (Levothyroxine Sodium 100 Mcg Tablet) 100 mcg PO DAILY@06 00 [facility] Last Admin: 02/01/23 05:54 Dose: 100 mcg Documented By: JAYLEEN Loratadine (Loratadine 10 Mg Tablet) 10 mg PO DAILY [facility] Last Admin: 02/01/23 08:50 Dose: 10 mg Documented By: BARBARA Melatonin (Melatonin 3 Mg Tablet) 6 mg PO BEDTIME PRN PRN Reason: Insomnia Last Admin: 01/31/23 19:50 Dose: 6 mg Documented By: JAYLEEN Morphine Sulfate (Morphine Sulfate Immed Release 15 Mg Tablet) 15 mg PO Q6H PRN PRN Reason: Pain, Moderate(Pain Scale 4-6) Last Admin: 01/31/23 19:50 Dose: 15 mg Documented By: JAYLEEN Nystatin (Nystatin Powder 15 Gm Bottle) 1 appl TOPICAL BID [facility]; Protocol Last Admin: 02/01/23 08:52 Dose: 1 appl Documented By: BARBARA Omeprazole (Omeprazole 20 Mg Chyna.) 20 mg PO DAILY@0630 [facility] Last Admin: 02/01/23 05:54 Dose: 20 mg Documented By: JAYLEEN Ondansetron HCl (Ondansetron Hcl 4 Mg/2 Ml Vial) 4 mg IVPUSH Q8H PRN PRN Reason: Nausea and Vomiting Sodium Bicarbonate (Sodium Bicarbonate 650 Mg Tablet) 650 mg PO BID [facility] Last Admin: 02/01/23 08:50 Dose: 650 mg Documented By: BARBARA Sodium Chloride (0.9 % Sodium Chloride Flush 3 Ml Syringe) 3 ml IVFLUSH QSHIFT [facility] Last Admin: 02/01/23 08:51 Dose: 3 ml Documented By: BARBARA Labs 02/01/23 06:34 02/01/23 06:34 Labs: Laboratory Results - last 24 hr 02/01/23 02/01/23 06:34 06:34 MCV 99.6 H MCH 32.1 MCHC 32.2 RDW 15.5 Plt Count 198 MPV 10.0 Absolute Nucleated RBC 0.000 Nucleated RBC % (auto) 0.0 Anion Gap 13 Estim Creat Clear Calc 15.6 Estimated GFR 15 Fasting Glucose 111 H Calcium 8.5 Microbiology Microbiology Results: Microbiology 01/28/23 Unknown Urine Culture - Final Urine clean catch - Urine reyes top Proteus mirabilis Enterococcus faecalis Assessment and Plan (1) DEVIN (acute kidney injury): Status: Acute Plan ?82F PMH hypothyroidism, CKD IV, essential hypertension, restless leg syndrome, chronic hypoxemic respiratory failure due to interstitial lung disease, congestive heart failure with preserved ejection fraction, coronary artery disease presented to ED 01/23/23 with weakness and awaiting snf, was admitted 01/26/23 for oliguria, found to have devin on CKD IV DEVIN on CKDIV complicated by acute metabolic encephalopathy due to hypotension - from hypovolemia not sepsis started HD 01/28/23, but unable 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 hold gabapentin Chronic hypoxic respiratory failure due to interstitial lung disease? On 3 L at baseline Congestive heart failure on preserved ejection fraction Not on Lasix at home Morbid obesity? weight loss DVT prophylaxis:? Heparin DNR/DNI reason for continued hospitalization:safe dispo Time Spent With Patient Time: Total time managing care of this patient today ____ minutes. Quality Stroke Does the patient have a stroke diagnosis?: No VTE Prior VTE?: No VTE Risk Level:: Medical - moderate - high VTE Device Contraindication: Treatment Not Indicated VTE Drug Contraindication: N/A - Med Ordered
--- NOTE | 2023-02-01 14:01 | MHC.CM.PN ---
Addendum entered by Doris Mcqueen 02/01/23 14:24: [facility] offered [facility] bed and have applied for auth in hopes that it will come in tomorrow. MD updated, and pt and daughter updated. Original Note: This CM was informed that the pts daughter Lynne had concerns about the pt returning home with VNA. Pts daughter Lynne states her mom keeps falling at home and is not safe there right now. This CM met with the pt and stated she is against going to STR and wants to go home. Pts daughter Lynne able to talk to her mother about it and while she is not particularly happy about it she understands why going to STR would be best for her and has agreed on it. Hospitalist updated. Number 1 preference is for [facility]. Clinical updates sent to [facility] and a few back up SNF's. Liaison from [facility] requested clinicals be faxed which they were. Will still need to obtain auth which wont be possible today on a weekend due to insurance company being closed. D/C pending bed offer and obtaining auth. CM will continue to follow for D/C.
[2023-02-01 15:24] VITALS: BP 120/58; PULSE 89; RESP 18; TEMP 36.9; O2SAT 96
--- NOTE | 2023-02-01 15:57 | PC.NURSE ---
Patient A&Ox4, was initially resistant to going to STR and plans were made to be D/C to home, but patient's daughter called in concerned. CM and MD aware of concerns patient with frequent falls recently and newly needing assistance and walker. Patient's daughter discussed with her and patient amenable to STR, MD and CM aware and following up. prashanth rivas x1 for dry cough. Fine crackles throughout to auscultation. 4 LPM nasal cannula
[2023-02-01 19:01] VITALS: BP 141/63; PULSE 82; RESP 15; TEMP 36.3; O2SAT 94
[2023-02-01] MEDS: Atorvastatin Calcium 20 MG TABLET PO (20:20)
[2023-02-01] MEDS: Morphine Sulfate Immed Release 15 MG TABLET PO (20:26)
[2023-02-01] MEDS: Melatonin 3 MG TABLET 6 MG PO (20:26)
[2023-02-01] MEDS: ondansetron HCL 4 MG/2 ML VIAL IVPUSH (23:37)
[2023-02-02 03:22] VITALS: BP 136/60; PULSE 112; RESP 18; TEMP 37; O2SAT 93
[2023-02-02] MEDS: Benzonatate 100 MG CAPSULE PO (03:43)
[2023-02-02] MEDS: Levothyroxine Sodium 100 MCG TABLET PO (05:31)
[2023-02-02] MEDS: Omeprazole 20 MG CAPSULE.DR PO (05:31)
[2023-02-02 07:33] VITALS: BP 147/69; PULSE 113; RESP 20; TEMP 36.6; O2SAT 99
--- NOTE | 2023-02-02 08:32 | HO.PM.IMPN ---
Subjective Subjective Date of Service: 02/02/23 Interval History: no new complaints Physical Exam Vital Signs: Vital Signs: Last Vital Signs Temp 97.8 F 02/02/23 07:33 Pulse 113 H 02/02/23 07:33 Resp 20 02/02/23 07:33 BP 147/69 H 02/02/23 07:33 Pulse Ox 99 02/02/23 07:33 O2 Del Method Nasal Cannula 02/02/23 07:33 O2 Flow Rate 3 02/02/23 07:33 Oxygen Flow Rate 2 01/23/23 14:12 BMI result Body Mass Index 39.7 Const: General: no acute distress and awake HEENT: Head: Yes normocephalic and Yes atraumatic Neck: Neck: Yes supple Resp: Auscultation: diminished lung sounds Cardio: Heart sounds: S1 normal heart sound present and S2 normal heart sound present GI: Palpation (GI): Soft to palpation and nontender Extrem: General: Yes AV fistula Right upper extremity: no edema Objective Data Active Medications Acetaminophen (Acetaminophen 325 Mg Tablet) 650 mg PO Q6H PRN PRN Reason: Pain, Mild (Pain Scale 1-3) Last Admin: 01/29/23 08:28 Dose: 650 mg Documented By: ZAY Albuterol Sulfate (Albuterol Sulfate 90 Mcg 8 Gm Inhaler) 2 puff INHALE Q4H PRN PRN Reason: Shortness Of Breath Or Wheezing Last Admin: 01/26/23 11:39 Dose: 2 puff Documented By: MCKAYLA Albuterol/Ipratropium (Albuterol/Iprat 2.5/0.5mg 3 Ml Ampul.Neb) 3 ml INHALE Q4H PRN PRN Reason: Wheezing Last Admin: 02/01/23 01:48 Dose: 3 ml Documented By: JUAN Aspirin (Aspirin Enteric Coated 81 Mg Tablet.) 81 mg PO DAILY [facility] Last Admin: 01/31/23 08:48 Dose: 81 mg Documented By: DAVID Atorvastatin Calcium (Atorvastatin Calcium 20 Mg Tablet) 20 mg PO BEDTIME [facility] Last Admin: 02/01/23 20:20 Dose: 20 mg Documented By: KATIE Benzonatate (Benzonatate 100 Mg Capsule) 100 mg PO TID PRN PRN Reason: cough Last Admin: 02/02/23 03:43 Dose: 100 mg Documented By: SULMA Famotidine (Famotidine 20 Mg Tablet) 20 mg PO DAILY [facility] Last Admin: 02/01/23 08:50 Dose: 20 mg Documented By: BARBARA Heparin Sodium (Porcine) (Heparin Sodium,Porcine 5,000 Unit/Ml Vial) 5,000 unit SUBCUT Q12H [facility] Last Admin: 02/01/23 20:20 Dose: 5,000 unit Documented By: KATIE Levothyroxine Sodium (Levothyroxine Sodium 100 Mcg Tablet) 100 mcg PO DAILY@0600 [facility] Last Admin: 02/02/23 05:31 Dose: 100 mcg Documented By: SULMA Loratadine (Loratadine 10 Mg Tablet) 10 mg PO DAILY [facility] Last Admin: 02/01/23 08:50 Dose: 10 mg Documented By: BARBARA Melatonin (Melatonin 3 Mg Tablet) 6 mg PO BEDTIME PRN PRN Reason: Insomnia Last Admin: 02/01/23 20:26 Dose: 6 mg Documented By: KATIE Morphine Sulfate (Morphine Sulfate Immed Release 15 Mg Tablet) 15 mg PO Q6H PRN PRN Reason: Pain, Moderate(Pain Scale 4-6) Last Admin: 02/01/23 20:26 Dose: 15 mg Documented By: KATIE Nystatin (Nystatin Powder 15 Gm Bottle) 1 appl TOPICAL BID [facility]; Protocol Last Admin: 02/01/23 22:15 Dose: Not Given Documented By: KATIE Non-Admin Reason: Patient Asleep Omeprazole (Omeprazole 20 Mg Chyna.) 20 mg PO DAILY@0630 [facility] Last Admin: 02/02/23 05:31 Dose: 20 mg Documented By: SULMA Ondansetron HCl (Ondansetron Hcl 4 Mg/2 Ml Vial) 4 mg IVPUSH Q8H PRN PRN Reason: Nausea and Vomiting Last Admin: 02/01/23 23:37 Dose: 4 mg Documented By: SULMA Sodium Bicarbonate (Sodium Bicarbonate 650 Mg Tablet) 650 mg PO BID [facility] Last Admin: 02/01/23 20:20 Dose: 650 mg Documented By: KATIE Sodium Chloride (0.9 % Sodium Chloride Flush 3 Ml Syringe) 3 ml IVFLUSH QSHIFT [facility] Last Admin: 02/01/23 23:38 Dose: 3 ml Documented By: SULMA Labs 02/01/23 06:34 02/01/23 06:34 Microbiology Microbiology Results: Microbiology 01/27/23 13:57 Blood Culture - Final Blood - Venous No growth after 5 days. 01/27/23 13:57 Blood Culture - Final Blood - Venous No growth after 5 days. 01/28/23 Unknown Urine Culture - Final Urine clean catch - Urine reyes top Proteus mirabilis Enterococcus faecalis Assessment and Plan (1) DEVIN (acute kidney injury): Status: Acute Plan ?82F PMH hypothyroidism, CKD IV, essential hypertension, restless leg syndrome, chronic hypoxemic respiratory failure due to interstitial lung disease, congestive heart failure with preserved ejection fraction, coronary artery disease presented to ED 01/23/23 with weakness and awaiting snf, was admitted 01/26/23 for oliguria, found to have devin on CKD IV DEVIN on CKDIV complicated by acute metabolic encephalopathy due to hypotension - from hypovolemia not sepsis started HD 01/28/23, but unable 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 hold gabapentin Chronic hypoxic respiratory failure due to interstitial lung disease? On 3 L at baseline Congestive heart failure on preserved ejection fraction Not on Lasix at home Morbid obesity? weight loss DVT prophylaxis:? Heparin DNR/DNI reason for continued hospitalization:safe dispo Time Spent With Patient Time: Total time managing care of this patient today ____ minutes. Quality Stroke Does the patient have a stroke diagnosis?: No VTE Prior VTE?: No VTE Risk Level:: Medical - moderate - high VTE Device Contraindication: Treatment Not Indicated VTE Drug Contraindication: N/A - Med Ordered
[2023-02-02] MEDS: Heparin Sodium,Porcine 5,000 UNIT/ML VIAL 5000 UNIT SUBCUT (09:08)
[2023-02-02] MEDS: 0.9 % Sodium Chloride Flush 3 ML SYRINGE IVFLUSH (09:08)
[2023-02-02] MEDS: Aspirin Enteric Coated 81 MG TABLET.DR PO (09:09)
[2023-02-02] MEDS: Sodium Bicarbonate 650 MG TABLET PO (09:09)
[2023-02-02] MEDS: Loratadine 10 MG TABLET PO (09:09)
[2023-02-02] MEDS: Nystatin Powder 15 GM BOTTLE 1 APPL TOPICAL (09:09)
[2023-02-02] MEDS: Famotidine 20 MG TABLET PO (09:09)
--- NOTE | 2023-02-02 09:54 | MHC.CM.PN ---
Addendum entered by Lissette Montilla RN 02/02/23 12:10: d/c summary paperfaxed to [phone] per snf request. Original Note: EMR REVIEWED, CM RECEIVED MESSAGE FROM SULEMA HOANG REQUESTING UPDATED PT NOTE FOR AUTH, CM HAS REQUESTED UPDATED NOTE FROM P.T. VIA [facility]ER, CM WILL CONT TO FOLLOW.
--- NOTE | 2023-02-02 09:57 | P.PNNP_ITS ---
Subjective Subjective Date of Service: 02/02/23 Interval history: no new complaints Physical Exam Vital Signs: Vital Signs: Last Vital Signs Temp 97.8 F 02/02/23 07:33 Pulse 113 H 02/02/23 07:33 Resp 20 02/02/23 07:33 BP 147/69 H 02/02/23 07:33 Pulse Ox 99 02/02/23 07:33 O2 Del Method Nasal Cannula 02/02/23 07:33 O2 Flow Rate 3 02/02/23 07:33 Oxygen Flow Rate 2 01/23/23 14:12 BMI result Body Mass Index 39.7 Const: General: no acute distress and awake HEENT: Head: Yes normocephalic and Yes atraumatic Neck: Neck: Yes supple Resp: Auscultation: diminished lung sounds Cardio: Heart sounds: S1 normal heart sound present and S2 normal heart sound present GI: Palpation (GI): Soft to palpation and nontender Extrem: General: Yes AV fistula Right upper extremity: no edema Objective Data Labs 02/01/23 06:34 02/01/23 06:34 Microbiology Microbiology Results: Microbiology 01/27/23 13:57 Blood - Venous Blood Culture - Final No growth after 5 days. 01/27/23 13:57 Blood - Venous Blood Culture - Final No growth after 5 days. 01/28/23 Unknown Urine clean catch - Urine reyes top Urine Culture - Final Proteus mirabilis Enterococcus faecalis Procedures Date of Service Date of Service: 02/02/23 Assessment & Plan Assessment and plan (1) DEVIN (acute kidney injury): Status: Acute (2) Congestive heart failure: Status: Acute (3) CKD (chronic kidney disease) stage 4, GFR 15-29 ml/min: Status: Acute Plan kidney function improving HD on 01/28 DEVIN due to acute tubular injury recovering hypotensive earlier with SBP down to the 80s renal US negative for hydronephrosis known severe CKD followed by Dr Bingham baseline Scr 2-5 mg/dl multifactorial: -hypertensive kidney disease -nephron loss due to aging -residual kidney function loss from prior DEVIN h/o percutaneous LUE AVF 12/24/22 (Dr Guillermo) she a long history of CKD and was seeing nephrology in [place] (followed there by [facility] in [place]) REC no more HD no plans for placement dialysis catheter Has an AVF If D/c'd I will arrange f/u with follow kidney function and electrolytes Time Spent With Patient Time: Total time managing care of this patient today ____ minutes. Progress Note: Quality Stroke Does the patient have a stroke diagnosis?: No
[2023-02-02 11:59] VITALS: PULSE 90; RESP 20; O2SAT 99
--- NOTE | 2023-02-02 13:33 | PC.NURSE ---
Pt. is being discharged today to [place] at 1330 via ambulance, this RN called to give facility report on pt. with no answer. Tried calling 2 different units and was sent to voicemail both times.
== END 2023-02-02 14:11 | disposition skilled nursing facility (03) | DRG 683 ==
LOC: HO.ED 01-26 10:30 → HO.EDOVER 01-26 19:37 → HO.IMC 01-27 19:29
PROVIDERS: Internal Medicine Nephrology; Nurse Practitioner Family; Physician Assistant; Radiology Diagnostic Radiology; Registered Nurse Emergency; Admitting Provider Student in an Organized Health Care Education/Training Program; Emergency Provider Emergency Medicine; PCP Internal Medicine; Visit Provider Internal Medicine
DX: N17.9 Acute kidney failure, unspecified (principal); I13.0 Hypertensive heart and chronic kidney disease with heart failure and stage 1 through stage 4 chronic kidney disease, or unspecified chronic kidney disease; I50.32 Chronic diastolic (congestive) heart failure; J96.11 Chronic respiratory failure with hypoxia; N18.4 Chronic kidney disease, stage 4 (severe); E66.01 Morbid (severe) obesity due to excess calories; Z68.39 Body mass index [BMI] 39.0-39.9, adult; Z66 Do not resuscitate; E03.9 Hypothyroidism, unspecified; I95.9 Hypotension, unspecified; E86.1 Hypovolemia; G25.81 Restless legs syndrome; Z20.822 Contact with and (suspected) exposure to COVID-19; Z87.891 Personal history of nicotine dependence; Z98.1 Arthrodesis status; Z79.82 Long term (current) use of aspirin; Z79.890 Hormone replacement therapy; Z79.899 Other long term (current) drug therapy
CPT/HCPCS: 36415; 36600; 71045; 76775; 80048; 80053; 81001; 81003; 82803; 82947; 83605; 83880; 84300; 84484; 85025; 85027; 85610; 85730; 86704; 86706; 87040; 87086; 87088; 87186; 87340; 87635; 90999; 93005; 94640; 97110; 97116; 97162; 97530; 99285; C1769; J1643; J2405; P9047

== ENCOUNTER → 2023-01-23 14:56 | Outpatient (BNV) | payer MEDICARE, OTHER, SELFPAY | PROVIDERS: Emergency Provider Emergency Medicine; PCP Internal Medicine; Visit Provider Internal Medicine Cardiovascular Disease | DX: I25.10 Atherosclerotic heart disease of native coronary artery without angina pectoris (principal) | CPT/HCPCS: 78452; 93010; 93016; 93018 ==

== ENCOUNTER → 2023-01-26 19:32 | Outpatient (BNV) | payer MEDICARE, OTHER, SELFPAY | PROVIDERS: Admitting Provider Student in an Organized Health Care Education/Training Program; Emergency Provider Emergency Medicine; PCP Internal Medicine; Visit Provider Student in an Organized Health Care Education/Training Program | DX: N17.9 Acute kidney failure, unspecified (principal); N18.4 Chronic kidney disease, stage 4 (severe) | CPT/HCPCS: 99222; 99232; 99233; 99239; G0180 ==

== ENCOUNTER 2023-02-10 02:56 | Inpatient (IN) | payer MEDICARE, SELFPAY ==
[2023-02-10] VITALS (10 sets, daily range): BP systolic 128–167; BP diastolic 58–89; PULSE 72–88; RESP 16–20; TEMP 36.4–37; O2SAT 82–97; BMI 40.6; BMI 39.0
--- NOTE | ~2023-02-10 | XR_ITS ---
EXAMINATION: XR CHEST CLINICAL INFORMATION: Shortness of breath COMPARISON: 01/27/2023 TECHNIQUE: Frontal view of the chest was obtained. FINDINGS: Low lung volumes. Pulmonary venous congestion without overt edema. Patchy opacity right upper lobe laterally, and streaky opacity at left lung base. Stable diffuse prominence of interstitium acute osseous abnormalities. XR/XR chest 1V IMPRESSION: Patchy opacity in the right upper lobe laterally may represent an infiltrate. Left basilar streaky opacity favors atelectasis. Chronic interstitial lung disease.
--- NOTE | ~2023-02-10 | XR_ITS ---
EXAMINATION: XR CHEST CLINICAL INFORMATION: Hypoxia. COMPARISON: Chest radiograph earlier today. TECHNIQUE: Frontal view of the chest was obtained. FINDINGS: Low lung volumes limiting assessment of pulmonary details. Diffuse interstitial coarsening is slightly increased compared to earlier today. Focal patchy/hazy airspace opacities in the lateral right lung are also slightly increased. Suspect trace amount of bilateral pleural fluid. No pneumothorax. Stable prominence of the cardiomediastinal silhouette, including asymmetric prominence of the right hilar region. Redemonstration of stimulator leads projecting over the mid lower chest. No acute osseous findings. XR/XR chest 1V IMPRESSION: 1. Worsening pulmonary aeration with increased patchy/hazy airspace opacities in the lateral right lung as well as increased diffuse interstitial coarsening. 2. Asymmetric prominence of the right hilar region that could be associated with underlying lymphadenopathy versus mass. Recommend further evaluation with a CT chest with IV contrast.
--- NOTE | 2023-02-10 03:10 | ECG_ITS ---
Test Reason : SOB Blood Pressure : / mmHG Vent. 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
--- NOTE | 2023-02-10 03:11 | ED_ITS ---
HPI - SOB/Dyspnea General Chief Complaint: Dyspnea Stated Complaint: low o2 Time Seen by Provider: 02/10/23 03:00 Source: patient and EMS Mode of arrival: EMS Limitations: no limitations History of Present Illness HPI Narrative: Patient comes to the emergency room from a nursing facility. Seems that starting today, the staff noticed the patient had low oxygen saturation. At baseline, patient uses 3 L. Today, patient's oxygen saturation was in the low 70s. The staff reported to EMS that they believe that the patient went to sleep without her oxygen or it fell off. When EMS arrived, instead of using 3 L, they put on 4 L and her oxygen saturation improved to the mid 90s. Patient states that she feels at baseline and has no other complaints. Related Data Home Medications Medication Instructions Recorded Confirmed albuterol sulfate 90 mcg/actuation 2 puff inhalation Q4-6H PRN 12/28/22 01/24/23 aerosol inhaler Shortness Of Breath Or Wheezing allopurinol 100 mg tablet 100 mg PO DAILY 12/28/22 01/23/23 cetirizine 10 mg tablet (Zyrtec) 10 mg PO DAILY 12/28/22 01/23/23 citalopram 20 mg tablet 20 mg PO DAILY 12/28/22 01/23/23 famotidine 20 mg tablet 20 mg PO DAILY 12/28/22 01/23/23 levothyroxine 100 mcg tablet 100 mcg PO DAILY@0600 12/28/22 01/24/23 pantoprazole 40 mg tablet,delayed 40 mg PO DAILY@0630 12/28/22 01/24/23 release sodium bicarbonate 325 mg tablet 650 mg PO BID 12/28/22 01/23/23 guaifenesin 400 mg tablet 800 mg PO TID congestion 01/14/23 01/23/23 benzonatate 100 mg capsule 100 mg PO TID PRN cough 01/23/23 01/24/23 morphine 15 mg immediate release 15 mg PO Q4-6H PRN pain 01/23/23 01/24/23 tablet atorvastatin 20 mg tablet 20 mg PO BEDTIME 01/24/23 01/24/23 Previous Rx's Medication Instructions Recorded aspirin 81 mg tablet,delayed 81 mg PO DAILY #90 tabs 12/31/22 release metoprolol tartrate 25 mg tablet 12.5 mg PO BID #180 tabs 12/31/22 nitroglycerin 0.4 mg sublingual 0.4 mg sublingual Q5M PRN chest 01/14/23 tablet pain #30 tabs ranolazine 500 mg tablet,extended 500 mg PO BID 90 days #180 tabs 01/14/23 release,12 hr gabapentin 100 mg capsule 100 mg PO DAILY #30 caps 02/01/23 Allergies Allergy/AdvReac Type Severity Reaction Status Date / Time NSAIDS (Non-Steroidal Allergy Unknown Verified 02/10/23 03:11 Anti-Inflamma [id number]-UbG Reductase AdvReac Severe LEG PAIN Verified 02/10/23 03:11 Inhibitor Review of Systems Review of Systems: Constitutional : No Weight loss, No Fever, No Chills, No Night Sweats, No Fatigue, No Malaise ENT/Mouth : No Hearing loss, No Ear Pain, No Nasal Congestion, No Sinus Pain, No Hoarseness, No sore throat, No Rhinorrhea, No Swallowing Difficulty Eyes: No Eye Pain, No Swelling, No Redness, No Foreign Body, No Discharge, No Vision Changes Cardiovascular : No Chest Pain, No SOB, No Dyspnea on Exertion, No Orthopnea, No Edema, No Palpitations Respiratory : Complaining of low oxygen saturation. No Cough, No Sputum, No Wheezing, No Smoke Exposure, No Dyspnea Gastrointestinal : No Nausea, No Vomiting, No Diarrhea, No Constipation, No abdominal Pain, No Hematochezia, No Melena Genitourinary : no irregular bleeding, No Dysuria, No Urinary Frequency, No Hematuria, No Urinary Incontinence, No Urgency, No Flank Pain, No Urinary Flow Changes, No Hesitancy Musculoskeletal : No joint pain, No Myalgias, No Joint Swelling Skin : No Skin Lesions, No rash Neuro : No Weakness, No Numbness, No Paresthesias, No Loss of Consciousness, No Dizziness, No Headache Psych : No Anxiety/Panic, No Depression, No SI/HI/AH/VH, No Social Issues, Heme/Lymph: No Bruising, No Bleeding,No Lymphadenopathy Endocrine : No Polyuria, No Polydipsia, No Temperature Intolerance [facility] Past Medical History Medical History Acquired hypothyroidism Cough Depression, major, recurrent Diabetes Dyslipidemia Fibromyalgia Heart murmur Interstitial lung disease Kidney failure, acute Osteoarthritis of multiple joints Respiratory failure with hypoxia Surgical History H/O hemorrhoidectomy Hx of fusion of cervical spine Hx of tonsillectomy S/P anal fissurectomy S/P appendectomy S/P partial hysterectomy Family History Family History Brother Substance use disorder Son Substance use disorder Daughter Substance use disorder Social History Social History Household Members: Children Housing: House Do you presently have visiting nurse or other home services: Yes (patient cannot recall what services) Alcohol intake: current Alcohol intake frequency: holidays/special occasions only Patient Tobacco Use Status: Former Tobacco user Quit Date: 15 years ago Years Smoked: 20 +/- on and off e-Cigarette/Vaping Use: Never Used Second Hand Smoke Exposure: No Advance Directives: Yes Advance Directives on File: Yes Advance Directives Date on File: 08/28/21 service: No Current occupational status: retired Current occupation: right handed Cognitive needs: No Hearing needs: No Vision needs: Yes Physical Exam Vital Signs: Vital Signs: Last Vital Signs Temp 97.6 F 02/10/23 03:48 Pulse 78 02/10/23 03:48 Resp 16 02/10/23 03:48 BP 142/89 H 02/10/23 03:48 Pulse Ox 92 02/10/23 03:48 O2 Del Method Nasal Cannula 02/10/23 03:48 O2 Flow Rate 4 02/10/23 03:48 Oxygen Flow Rate 4 02/10/23 03:07 BMI result Body Mass Index 40.6 Const: Other: Appearance: Alert. Oriented X3. No acute distress. Eyes: Pupils equal, round and reactive to light. ENT: Pharynx normal. Neck: Normal inspection. Neck supple. No lymph nodes noted. No crepitus CVS: Normal heart rate and rhythm. Pulses normal. Normal S1 and S2 Respiratory: No respiratory distress. On 4 L, bibasilar crackles, no wheezing, no rales Abdomen: Soft and nontender. No rigidity. No distention. Skin: Skin warm and dry. Normal skin color. Normal skin turgor. Extremities: +2 pitting edema bilaterally, No Lacerations. No Rash Neuro: Oriented X 3. No motor deficit. No sensory deficit. Moving all extr emities. No slurred speech. CN 2 through 12 grossly intact Psych: calm, cooperative, normal affect Course Course Course Narrative: -patient feels at baseline -patient is on 4 L oxygen, baseline is 3 L -of patient's labs are pending Medical Decision Making Medical Decision Making [facility] Narrative: -my interpretation of labs: patient's white blood cell count 8.6, normal, creatinine and 2.31, chronic -BNP 2076, likely causing the increase in troponin -my interpretation of chest x-ray: Mild pulmonary edema. -radiology report, pulmonary venous congestion without overt edema a patchy opacity in the right lower lobe -patient comfortably reading at 4 L of oxygen Differential Diagnosis Differential Diagnoses: The differential diagnosis associated with the presentation includes (CHF, COPD, pneumonia) Admission/Observation Consideration of admission/observation: Escalation of care including admission/observation considered Consult Healthcare Provider Management of the patient was discussed with: Hospitalist Lab Data [facility] Lab Attestation statement: I reviewed the patient's lab results. 02/10/23 03:42 02/10/23 03:42 Labs: Lab Results 02/10/23 02/10/23 02/10/23 Range/Units 03:41 03:41 03:41 WBC (4.8-10.8) X10*3/uL RBC (4.20-5.50) X10*6/uL Hgb (12.0-16.0) g/dl Hct (37.0-47.0) % MCV (80.0-98.0) fL MCH (27.0-33.0) pg MCHC (31.0-35.0) g/dl RDW (11.0-16.0) % Plt Count (160-400) X10*3/uL MPV (9.4-12.3) fL Immature Gran % (Auto) (0.0-0.4) % Neut % (Auto) (45-73) % Lymph % (Auto) (20-40) % [place] % (Auto) (2-11) % Eos % (Auto) (0-4) % Baso % (Auto) (0-2) % Lymph # (Auto) (1.2-4.9) X10*3/uL [place] # (Auto) (0.1-1.2) X10*3/uL Eos # (Auto) (0.0-0.4) X10*3/uL Baso # (Auto) (0.0-0.2) X10*3/uL Abs Immat Gran (auto) (0.00-0.03) X10*3/uL Absolute Neuts (auto) (2.0-8.3) x10*3/uL Absolute Nucleated RBC (0.0-0.012) X10*3/uL Nucleated RBC % (auto) (0.0-0.2) /100WBC PT 14.7 H (11.1-13.3) SEC INR 1.2 H (0.9-1.1) VBG pH (7.32-7.43) VBG pCO2 mmHg VBG pO2 mmHg VBG HCO3 (22-26) mmol/L VBG O2 Saturation % VBG Base Excess mmol/L Sodium (135-145) mmol/L Potassium (3.3-5.1) mmol/L Chloride (96-108) mmol/L Carbon Dioxide (22-29) mmol/L Anion Gap (12-20) BUN (9-16) mg/dL Creatinine (0.5-1.4) mg/dL Estim Creat Clear Calc Estimated GFR Random Glucose (60-115) mg/dL Lactic Acid 1.3 (0.5-2.0) mmol/L Calcium (8.4-10.2) mg/dL Total Bilirubin (0.0-1.0) mg/dL Direct Bilirubin (0.0-0.5) mg/dL AST (5-31) U/L ALT (0-31) U/L Alkaline Phosphatase (39-117) U/L Troponin I High Sens 57.1 H* D (<3.5-17.0) ng/L B-Natriuretic Peptide (<100) pg/mL Total Protein (6.5-8.0) g/dL Albumin (3.5-5.0) g/dL 02/10/23 02/10/23 02/10/23 Range/Units 03:41 03:42 03:42 WBC 8.6 (4.8-10.8) X10*3/uL RBC 2.84 L (4.20-5.50) X10*6/uL Hgb 9.0 L (12.0-16.0) g/dl Hct 29.1 L (37.0-47.0) % MCV 102.5 H (80.0-98.0) fL MCH 31.7 (27.0-33.0) pg MCHC 30.9 L (31.0-35.0) g/dl RDW 16.4 H (11.0-16.0) % Plt Count 222 (160-400) X10*3/uL MPV 9.9 (9.4-12.3) fL Immature Gran % (Auto) 0.7 H (0.0-0.4) % Neut % (Auto) 64.7 (45-73) % Lymph % (Auto) 22.9 (20-40) % [place] % (Auto) 7.0 (2-11) % Eos % (Auto) 4.1 H (0-4) % Baso % (Auto) 0.6 (0-2) % Lymph # (Auto) 2.0 (1.2-4.9) X10*3/uL [place] # (Auto) 0.6 (0.1-1.2) X10*3/uL Eos # (Auto) 0.4 (0.0-0.4) X10*3/uL Baso # (Auto) 0.1 (0.0-0.2) X10*3/uL Abs Immat Gran (auto) 0.06 H (0.00-0.03) X10*3/uL Absolute Neuts (auto) 5.5 (2.0-8.3) x10*3/uL Absolute Nucleated RBC 0.000 (0.0-0.012) X10*3/uL Nucleated RBC % (auto) 0.0 (0.0-0.2) /100WBC PT (11.1-13.3) SEC INR (0.9-1.1) VBG pH (7.32-7.43) VBG pCO2 mmHg VBG pO2 mmHg VBG HCO3 (22-26) mmol/L VBG O2 Saturation % VBG Base Excess mmol/L Sodium 139 (135-145) mmol/L Potassium 5.2 H D (3.3-5.1) mmol/L Chloride 105 (96-108) mmol/L Carbon Dioxide 20 L (22-29) mmol/L Anion Gap 19 (12-20) BUN 27 H (9-16) mg/dL Creatinine 2.31 H (0.5-1.4) mg/dL Estim Creat Clear Calc 20.1 Estimated GFR 20 Random Glucose 109 (60-115) mg/dL Lactic Acid (0.5-2.0) mmol/L Calcium 8.7 (8.4-10.2) mg/dL Total Bilirubin 1.0 (0.0-1.0) mg/dL Direct Bilirubin 0.5 (0.0-0.5) mg/dL AST 17 (5-31) U/L ALT 11 (0-31) U/L Alkaline Phosphatase 95 (39-117) U/L Troponin I High Sens (<3.5-17.0) ng/L B-Natriuretic Peptide 2076 H (<100) pg/mL Total Protein 6.2 L (6.5-8.0) g/dL Albumin 3.2 L (3.5-5.0) g/dL 02/10/23 Range/Units 03:45 WBC (4.8-10.8) X10*3/uL RBC (4.20-5.50) X10*6/uL Hgb (12.0-16.0) g/dl Hct (37.0-47.0) % MCV (80.0-98.0) fL MCH (27.0-33.0) pg MCHC (31.0-35.0) g/dl RDW (11.0-16.0) % Plt Count (160-400) X10*3/uL MPV (9.4-12.3) fL Immature Gran % (Auto) (0.0-0.4) % Neut % (Auto) (45-73) % Lymph % (Auto) (20-40) % [place] % (Auto) (2-11) % Eos % (Auto) (0-4) % Baso % (Auto) (0-2) % Lymph # (Auto) (1.2-4.9) X10*3/uL [place] # (Auto) (0.1-1.2) X10*3/uL Eos # (Auto) (0.0-0.4) X10*3/uL Baso # (Auto) (0.0-0.2) X10*3/uL Abs Immat Gran (auto) (0.00-0.03) X10*3/uL Absolute Neuts (auto) (2.0-8.3) x10*3/uL Absolute Nucleated RBC (0.0-0.012) X10*3/uL Nucleated RBC % (auto) (0.0-0.2) /100WBC PT (11.1-13.3) SEC INR (0.9-1.1) VBG pH 7.54 H (7.32-7.43) VBG pCO2 27 mmHg VBG pO2 78 mmHg VBG HCO3 23 (22-26) mmol/L VBG O2 Saturation 98.0 % VBG Base Excess 1.9 mmol/L Sodium (135-145) mmol/L Potassium (3.3-5.1) mmol/L Chloride (96-108) mmol/L Carbon Dioxide (22-29) mmol/L Anion Gap (12-20) BUN (9-16) mg/dL Creatinine (0.5-1.4) mg/dL Estim Creat Clear Calc Estimated GFR Random Glucose (60-115) mg/dL Lactic Acid (0.5-2.0) mmol/L Calcium (8.4-10.2) mg/dL Total Bilirubin (0.0-1.0) mg/dL Direct Bilirubin (0.0-0.5) mg/dL AST (5-31) U/L ALT (0-31) U/L Alkaline Phosphatase (39-117) U/L Troponin I High Sens (<3.5-17.0) ng/L B-Natriuretic Peptide (<100) pg/mL Total Protein (6.5-8.0) g/dL Albumin (3.5-5.0) g/dL Independent Interpretation I performed an independent interpretation of an: Plain X-Ray Radiology Impression Discussion of test interpretation with radiology: I have reviewed the radiologist's reading. Radiologist Impression: FINDINGS: Low lung volumes. Pulmonary venous congestion without overt edema. Patchy opacity right upper lobe laterally, and streaky opacity at left lung base. Stable diffuse prominence of interstitium acute osseous abnormalities. XR/XR chest 1V IMPRESSION: Patchy opacity in the right upper lobe laterally may represent an infiltrate. Left basilar streaky opacity favors atelectasis. Chronic interstitial lung disease. ? Critical Care Time Critical Care Time Critical Care Time: Yes Total Critical Care Time: 60 Attestation: Please follow-up with your primary care physician tomorrow. If you have any worsening or new symptoms, please return to the emergency room or call 911 Discharge Plan Discharge Clinical Impression: CHF exacerbation, Pneumonia Patient Disposition: Admitted As Inpatient Prescriptions: No Action sodium bicarbonate 325 mg tablet 650 mg PO BID allopurinol 100 mg tablet 100 mg PO DAILY levothyroxine 100 mcg tablet 100 mcg PO DAILY@0600 citalopram 20 mg tablet 20 mg PO DAILY famotidine 20 mg tablet 20 mg PO DAILY pantoprazole 40 mg tablet,delayed release (DR/EC) 40 mg PO DAILY@0630 albuterol sulfate 90 mcg/actuation HFA aerosol inhaler 2 puff inhalation Q4-6H PRN (Reason: Shortness Of Breath Or Wheezing) cetirizine [Zyrtec] 10 mg Tablet 10 mg PO DAILY aspirin 81 mg Tablet,Delayed Release (Dr/Ec) 81 mg PO DAILY Qty: 90 0RF metoprolol tartrate 25 mg tablet 12.5 mg PO BID Qty: 180 0RF guaifenesin 400 mg tablet 800 mg PO TID benzonatate 100 mg capsule 100 mg PO TID PRN (Reason: cough) morphine 15 mg tablet 15 mg PO Q4-6H PRN (Reason: pain) atorvastatin 20 mg tablet 20 mg PO BEDTIME gabapentin 100 mg capsule 100 mg PO DAILY Qty: 30 0RF ranolazine 500 mg tablet extended release 12 hr 500 mg PO BID 90 Days Qty: 180 3RF nitroglycerin 0.4 mg tablet, sublingual 0.4 mg sublingual Q5M PRN (Reason: chest pain) Qty: 30 5RF Rx Instructions: do not exceed 3 doses per episode
--- NOTE | 2023-02-10 03:33 | PC.NURSE ---
this RN attempted iv line and blood work x 2 without success. PCT trying to obtain blood work now.
[2023-02-10 03:48] LABS: MANUAL DIFF FLAG NO
[2023-02-10 03:50] LABS: Basophils Absolute Auto 0.1 X10*3/uL (0.0-0.2); Basophils Percent Auto 0.6 % (0-2); Eosinophils Absolute Auto 0.4 X10*3/uL (0.0-0.4); Eosinophils Percent Auto 4.1 % (0-4); Hematocrit 29.1 % (37.0-47.0); Imm Gran Abs Auto 0.06 X10*3/uL (0.00-0.03); Imm Gran Pct Auto 0.7 % (0.0-0.4); Lymphocytes Percent Auto 22.9 % (20-40); Mean Corpuscular HGB Conc 30.9 g/dl (31.0-35.0); Mean Corpuscular Hemoglobin 31.7 pg (27.0-33.0); Mean Corpuscular Volume 102.5 fL (80.0-98.0); Mean Platelet Volume 9.9 fL (9.4-12.3); Monocytes Absolute Auto 0.6 X10*3/uL (0.1-1.2); Neutrophils Absolute Auto 5.5 x10*3/uL (2.0-8.3); Neutrophils Percent Auto 64.7 % (45-73); Platelet Count 222 X10*3/uL (160-400); Red Blood Count 2.84 X10*6/uL (4.20-5.50); Red Cell Distribution Width 16.4 % (11.0-16.0); White Blood Count 8.6 X10*3/uL (4.8-10.8)
--- NOTE | 2023-02-10 03:50 | MHC.EDTECH ---
PATIENT CAME IN VIA EMS ,EKG TAKEN AND WAS READ BY PROVIDER BLOOD DRAWN INCLUDING ,BLOOD CULTURE AND LACTIC ACID DRAWN AND SENT TO LAB ,PATIENT WAS HOOKED UP TO [facility] ,VITALS SIGN TAKEN ,PATIENT WAS CHANGE INTO HOSPITAL ATTIRE ,PT IS RESTING IN BED .
[2023-02-10 03:54] LABS: Venous Blood Gas Refer to POC result
[2023-02-10 03:55] LABS: VBG Base Excess 1.9 mmol/L; VBG HCO3 23 mmol/L (22-26); VBG pCO2 27 mmHg; VBG pH 7.54 (7.32-7.43); VBG pO2 78 mmHg
[2023-02-10 03:59] LABS: Lactic Acid 1.3 mmol/L (0.5-2.0)
[2023-02-10 04:04] LABS: Alanine Aminotransferase 11 U/L (0-31); Albumin Level 3.2 g/dL (3.5-5.0); Alkaline Phosphatase 95 U/L (39-117); Anion Gap 19 (12-20); Aspartate Amino Transferase 17 U/L (5-31); Bilirubin Direct 0.5 mg/dL (0.0-0.5); Blood Urea Nitrogen 27 mg/dL (9-16); Calcium 8.7 mg/dL (8.4-10.2); Carbon Dioxide 20 mmol/L (22-29); Chloride 105 mmol/L (96-108); Creatinine Clr Calc Pharmacy 20.1; Estimated Glomerular Filt Rate 20; Glucose Random 109 mg/dL (60-115); Potassium 5.2 mmol/L (3.3-5.1); Sodium 139 mmol/L (135-145); Total Protein 6.2 g/dL (6.5-8.0)
[2023-02-10 04:06] LABS: INTERNATIONAL NORM RATIO 1.2 (0.9-1.1); Prothrombin Time 14.7 SEC (11.1-13.3)
[2023-02-10 04:20] LABS: B Type Natriuretic Peptide 2076 pg/mL (<100)
[2023-02-10 04:46] LABS: Troponin-I High Sensitivity 57.1 ng/L (<3.5-17.0)
[2023-02-10] MEDS: cefTRIAXone sodium 1 GM in 0.9 % Sodium Chloride 50 ML IV (05:51)
--- NOTE | 2023-02-10 06:32 | PC.NURSE ---
second RN attempted iv line placed a #22g in L hand but iv line stopped working through antibiotic administration. pt only received about 20mL of the antibiotic... MD Damon hospitalist in room assessing pt states antibiotics are not necessary. no infectious process. pt to be admitted for CHF exacerbation and iv lasix. discontinue abx. will ask another RN to attempt iv line as pt is difficult stick and only has access on one side d/t dialysis fistula n R arm.
--- NOTE | 2023-02-10 06:35 | PM.IMHP ---
History of Present Illness Date of Service: 02/10/23 Chief Complaint: Dyspnea This is a 82-year-old female with pertinent history of hypothyroidism, essential hypertension, restless leg syndrome, chronic hypoxemic respiratory failure due to interstitial lung disease, congestive heart failure with preserved ejection fraction, coronary artery disease presents to the emergency department for evaluation of dyspnea. Patient was found to be dyspneic and hypoxemic at her usual 3 L supplemental oxygen and she was sent to the ER for further evaluation. She admits orthopnea and bilateral lower extremity leg swelling. She denies fever, chills, cough. No chest discomfort, palpitations, abdominal pain, changes in urinary or bowel habits. In the emergency department, patient was found to be hypoxemic and BNP found to be elevated Review of Systems Constitutional: Constitutional: Reports no additional constitutional complaints Cardiovascular: Cardiovascular: Reports dyspnea on exertion and Reports orthopnea Respiratory: Respiratory: Reports dyspnea on exertion Gastrointestinal: Gastrointestinal: Reports no additional gastrointestinal complaints Genitourinary: Genitourinary: Reports no additional female genitourinary complaints [facility] Medical History Acquired hypothyroidism Cough Depression, major, recurrent Diabetes Dyslipidemia Fibromyalgia Heart murmur Interstitial lung disease Kidney failure, acute Osteoarthritis of multiple joints Respiratory failure with hypoxia Family History Brother Substance use disorder Son Substance use disorder Daughter Substance use disorder Surgical History H/O hemorrhoidectomy Hx of fusion of cervical spine Hx of tonsillectomy S/P anal fissurectomy S/P appendectomy S/P partial hysterectomy Social History Household Members: Children Housing: House Do you presently have visiting nurse or other home services: Yes (patient cannot recall what services) Alcohol intake: former Patient Tobacco Use Status: Former Tobacco user Quit Date: 15 years ago Years Smoked: 20 +/- on and off Smoked in Last 30 Days: No e-Cigarette/Vaping Use: Never Used Second Hand Smoke Exposure: No Advance Directives: Yes Advance Directives on File: Yes Advance Directives Date on File: 08/28/21 service: No Current occupational status: retired Current occupation: right handed Cognitive needs: No Hearing needs: No Vision needs: Yes Meds Allergies Allergy/AdvReac Type Severity Reaction Status Date / Time NSAIDS (Non-Steroidal Allergy Unknown Verified 02/10/23 03:11 Anti-Inflamma Imkhamh-KUB-FrV Reductase AdvReac Severe LEG PAIN Verified 02/10/23 03:11 Inhibitor Home Medications Medication Instructions Recorded Confirmed Last Taken Type albuterol sulfate 90 mcg/actuation 2 puff inhalation Q4-6H PRN 12/28/22 01/24/23 Unknown History aerosol inhaler Shortness Of Breath Or Wheezing allopurinol 100 mg tablet 100 mg PO DAILY 12/28/22 01/23/23 01/23/23 09:00 History cetirizine 10 mg tablet (Zyrtec) 10 mg PO DAILY 12/28/22 01/23/23 01/23/23 09:00 History citalopram 20 mg tablet 20 mg PO DAILY 12/28/22 01/23/23 01/23/23 09:00 History famotidine 20 mg tablet 20 mg PO DAILY 12/28/22 01/23/23 01/23/23 09:00 History levothyroxine 100 mcg tablet 100 mcg PO DAILY@0600 12/28/22 01/24/23 01/23/23 06:00 History pantoprazole 40 mg tablet,delayed 40 mg PO DAILY@0630 12/28/22 01/24/23 01/23/23 06:30 History release sodium bicarbonate 325 mg tablet 650 mg PO BID 12/28/22 01/23/23 01/23/23 09:00 History guaifenesin 400 mg tablet 800 mg PO TID congestion 01/14/23 01/23/23 01/23/23 09:00 History benzonatate 100 mg capsule 100 mg PO TID PRN cough 01/23/23 01/24/23 Unknown History morphine 15 mg immediate release 15 mg PO Q4-6H PRN pain 01/23/23 01/24/23 Unknown History tablet atorvastatin 20 mg tablet 20 mg PO BEDTIME 01/24/23 01/24/23 01/22/23 History Physical Exam Vital Signs and Narrative: Vital Signs: Last Vital Signs Temp 97.6 F 02/10/23 03:48 Pulse 78 02/10/23 03:48 Resp 16 02/10/23 03:48 BP 142/89 H 02/10/23 03:48 Pulse Ox 92 02/10/23 03:48 O2 Del Method Nasal Cannula 02/10/23 03:48 O2 Flow Rate 4 02/10/23 03:48 Oxygen Flow Rate 4 02/10/23 03:07 BMI result Body Mass Index 40.6 Elderly female lying in bed in mild distress on supplemental oxygen Neck supple, no JVD Regular rate and rhythm, S1-S2 heard Bilateral crackles without wheezing Abdomen soft nontender, no guarding, no rigidity Patient is awake, alert and oriented to self, place, time and person ; no focal motor deficit Psych: Normal mood Bilateral pedal edema Results Labs 02/10/23 03:42 02/10/23 03:42 Labs: Laboratory Results - last 24 hr 02/10/23 02/10/23 02/10/23 03:41 03:41 03:41 MCV MCH MCHC RDW Plt Count MPV Immature Gran % (Auto) Neut % (Auto) Lymph % (Auto) [place] % (Auto) Eos % (Auto) Baso % (Auto) Lymph # (Auto) [place] # (Auto) Eos # (Auto) Baso # (Auto) Abs Immat Gran (auto) Absolute Neuts (auto) Absolute Nucleated RBC Nucleated RBC % (auto) PT 14.7 H INR 1.2 H VBG pH VBG pCO2 VBG pO2 VBG HCO3 VBG O2 Saturation VBG Base Excess Anion Gap Estim Creat Clear Calc Estimated GFR Random Glucose Lactic Acid 1.3 Calcium Total Bilirubin Direct Bilirubin AST ALT Alkaline Phosphatase B-Natriuretic Peptide 2076 H Total Protein Albumin 02/10/23 02/10/23 02/10/23 03:42 03:42 03:45 MCV 102.5 H MCH 31.7 MCHC 30.9 L RDW 16.4 H Plt Count 222 MPV 9.9 Immature Gran % (Auto) 0.7 H Neut % (Auto) 64.7 Lymph % (Auto) 22.9 [place] % (Auto) 7.0 Eos % (Auto) 4.1 H Baso % (Auto) 0.6 Lymph # (Auto) 2.0 [place] # (Auto) 0.6 Eos # (Auto) 0.4 Baso # (Auto) 0.1 Abs Immat Gran (auto) 0.06 H Absolute Neuts (auto) 5.5 Absolute Nucleated RBC 0.000 Nucleated RBC % (auto) 0.0 PT INR VBG pH 7.54 H VBG pCO2 27 VBG pO2 78 VBG HCO3 23 VBG O2 Saturation 98.0 VBG Base Excess 1.9 Anion Gap 19 Estim Creat Clear Calc 20.1 Estimated GFR 20 Random Glucose 109 Lactic Acid Calcium 8.7 Total Bilirubin 1.0 Direct Bilirubin 0.5 AST 17 ALT 11 Alkaline Phosphatase 95 B-Natriuretic Peptide Total Protein 6.2 L Albumin 3.2 L Imaging Radiologist's Impressions: Impressions Chest X-Ray 02/10/23 03:46 IMPRESSION: Patchy opacity in the right upper lobe laterally may represent an infiltrate. Left basilar streaky opacity favors atelectasis. Chronic interstitial lung disease. Assessment and Plan (1) CHF exacerbation: Status: Acute Plan This is a 82-year-old female with pertinent history of hypothyroidism, essential hypertension, restless leg syndrome, chronic hypoxemic respiratory failure due to interstitial lung disease, congestive heart failure with preserved ejection fraction, coronary artery disease presents to the emergency department for evaluation of dyspnea. #. Acute on chronic hypoxemic respiratory failure due to decompensated congestive heart failure with preserved ejection fraction. Will admit patient and initiate IV Lasix. Noted recent echocardiogram. Consulting Cardiology, appreciate assistance. Strict I's and O's and low-salt diet. #.? CAD.? On beta-michael, statin and aspirin #.? Hypothyroidism.? On Synthroid #.? Restless leg syndrome. On gabapentin #. Chronic kidney disease. Monitor creatinine and urine output with IV diuresis. Avoid nephrotoxins #.? Morbid obesity.? Counseled regarding diet and exercise #. Macrocytic anemia. Obtaining B12 and folate #. Elevated troponin, likely in the setting of increased demand. #. Imaging with patchy opacity in the right upper lobe. Patient without fever, productive cough or leukocytosis. Defer antibiotics Med rec pending DVT prophylaxis:? Lovenox Low-salt diet DNR/DNI Admit as inpatient and will require two night minimum hospital stay for supplemental oxygen and IV diuresis Time Spent With Patient Time: Total time managing care of this patient today ____ minutes. Quality Stroke Does the patient have a stroke diagnosis?: No VTE Prior VTE?: No VTE Risk Level:: Medical - moderate - high VTE Device Contraindication: Treatment Not Indicated VTE Drug Contraindication: N/A - Med Ordered
[2023-02-10] MEDS: Furosemide 20 MG/2 ML VIAL IVPUSH (07:02)
--- NOTE | 2023-02-10 07:10 | PC.NURSE ---
Pt currently resting, 93% on 5L via NC, denied any pain or discomfort, call barros with in reach.
[2023-02-10] MEDS: Enoxaparin Sodium 30 MG/0.3 ML SYRINGE SUBCUT (07:55)
[2023-02-10] MEDS: Furosemide 100 MG/10 ML VIAL 60 MG IVPUSH (07:57)
[2023-02-10] MEDS: 0.9 % Sodium Chloride Flush 3 ML SYRINGE IVFLUSH (08:00)
--- NOTE | 2023-02-10 08:05 | PC.NURSE ---
Pt noted to have removed nasal canula and SpO2 monitor from finger. SpO2 in low 80's. Pt NC placed back on and Pt repositioned and educated on importance of keeping on O2 and monitor. Pt currently at 92% on 5L via NC.
--- NOTE | 2023-02-10 09:24 | PC.NURSE ---
Pt asked to utilize bathroom, Pt offered bed cm or commode instead, Pt requested commode, assisted onto commode, urinated and assisted back onto bed. Pt O2 not3ed to decrease to 85% after transfer. Pt repositioned and O2 increased to 93%. Pt currently resting. denied any pain or discomfort.
--- NOTE | 2023-02-10 09:31 | PHA.MEDREC ---
Pharmacy Consult ? Medication Reconciliation Pharmacy has completed the medication reconciliation.
--- NOTE | 2023-02-10 09:48 | PM.EVENT ---
Event Note Date of Service: 02/10/23 Event Note: Seen and evaluated Feels better On 5L of O2 Continue diuresis start nebulizers, hold on steroids wean O2 down to baseline Cardiology to follow Time Spent With Patient Time: Total time managing care of this patient today ____ minutes.
--- NOTE | 2023-02-10 10:06 | PM.CNCAR ---
History of Present Illness History of Present Illness Date of Service: 02/10/23 Chief complaint: Dyspnea Narrative: This is a cardiology consultation regarding possible congestive heart failure. Patient was last seen in the clinic few weeks back. She has a history of chronic pulmonary issues as well as chronic kidney disease. She has baseline minimal ambulation use wheelchair frequently. She is also on supplemental oxygen. She has had marked elevation of troponins in the context of respiratory failure in the past. We had talked about cardiac catheterization and tentatively planned but after discussing with Interventional, it was felt that she would not be a good candidate and hence we ordered a stress test rather. She had 1 part of stress test but could not complete the 2nd part yet. In the interim, she is here for shortness of breath. She was apparently short of breath and hypoxemic in spite of her usual 3 L supplemental oxygen and hence sent to the ER. No clear anginal-type chest pains. She has been admitted with a diagnosis of acute on chronic respiratory failure/heart failure. She states she feels just about the same as usual. Review of Systems Review of Systems: Yes all other systems are reviewed and are negative Constitutional: Constitutional: Reports as per HPI and Reports no additional constitutional complaints Eyes: Eyes: Reports as per HPI and Denies no additional eye complaints ENT: Denies system reviewed and no additional complaints, except as documented and Reports as per HPI Cardiovascular: Cardiovascular: Reports as per HPI, Reports no additional cardiovascular complaints, Denies acrocyanosis, Denies cool extremities, Denies chest pain, Denies leg edema, Denies lightheadedness, Denies palpitations and Reports dyspnea Respiratory: Respiratory: Reports as per HPI, Denies no additional respiratory complaints and Reports dyspnea Gastrointestinal: Gastrointestinal: Reports as per HPI and Denies no additional gastrointestinal complaints Genitourinary: Genitourinary: Reports as per HPI Musculoskeletal: Musculoskeletal: Reports no additional musculoskeletal complaints and Reports as per HPI Integumentary/Breasts: Skin/Breast: Reports system reviewed and no additional complaints, except as docu Neurologic: Reports system reviewed and no additional complaints, except as documented and Reports as per HPI Psychiatric: Psychiatric: Reports no additional psychiatric complaints and Reports as per HPI Endocrine: Endocrine: Reports no additional endocrine complaints, Reports as per HPI and Denies palpitations Hematologic/Lymphatic: Hematologic/Lymphatic: Reports no additional hematologic/lymphatic complaints and Reports as per HPI Allergic/Immunologic: Allergic/Immunologic: Reports no additional allergic/immunologic complaints and Reports as per HPI [facility] Past Medical History Medical History Acquired hypothyroidism Cough Depression, major, recurrent Diabetes Dyslipidemia Fibromyalgia Heart murmur Interstitial lung disease Kidney failure, acute Osteoarthritis of multiple joints Respiratory failure with hypoxia Family History Family History Brother Substance use disorder Son Substance use disorder Daughter Substance use disorder Surgical History Surgical History H/O hemorrhoidectomy Hx of fusion of cervical spine Hx of tonsillectomy S/P anal fissurectomy S/P appendectomy S/P partial hysterectomy Social History Social History Household Members: Children Housing: House Do you presently have visiting nurse or other home services: Yes (patient cannot recall what services) Alcohol intake: former Patient Tobacco Use Status: Former Tobacco user Quit Date: 15 years ago Years Smoked: 20 +/- on and off Smoked in Last 30 Days: No e-Cigarette/Vaping Use: Never Used Second Hand Smoke Exposure: No Advance Directives: Yes Advance Directives on File: Yes Advance Directives Date on File: 08/28/21 service: No Current occupational status: retired Current occupation: right handed Cognitive needs: No Hearing needs: No Vision needs: Yes Meds Allergies Allergy/AdvReac Type Severity Reaction Status Date / Time NSAIDS (Non-Steroidal Allergy Unknown Verified 02/10/23 03:11 Anti-Inflamma [id number]-[id number] Reductase AdvReac Severe LEG PAIN Verified 02/10/23 03:11 Inhibitor Active Medications: Current Medications Acetaminophen (Acetaminophen 325 Mg Tablet) 650 mg PO Q6H PRN PRN Reason: Pain, Mild (Pain Scale 1-3) Albuterol/Ipratropium (Albuterol/Iprat 2.5/0.5mg 3 Ml Ampul.Neb) 3 ml INHALE RQ6H WHILE AWAKE INGRID Enoxaparin Sodium (Enoxaparin Sodium 30 Mg/0.3 Ml Syringe) 30 mg SUBCUT Q24H INGRID Last Admin: 02/10/23 07:55 Dose: 30 mg Melatonin (Melatonin 3 Mg Tablet) 6 mg PO BEDTIME PRN PRN Reason: Insomnia Ondansetron HCl (Ondansetron Hcl 4 Mg/2 Ml Vial) 4 mg IVPUSH Q8H PRN PRN Reason: Nausea and Vomiting Pharmacy Consult (Consult Rx Perform Med Rec) 1 each MISCELLANE ONCE PRN PRN Reason: Consult order Sodium Chloride (0.9 % Sodium Chloride Flush 3 Ml Syringe) [facility] Last Admin: 02/10/23 08:00 Dose: 3 ml Home Medications Medication Instructions Recorded Confirmed Last Taken Type albuterol sulfate 90 mcg/actuation 2 puff inhalation Q4-6H PRN 12/28/22 02/10/23 Unknown History aerosol inhaler Shortness Of Breath Or Wheezing allopurinol 100 mg tablet 100 mg PO DAILY 12/28/22 02/10/23 01/23/23 09:00 History cetirizine 10 mg tablet (Zyrtec) 10 mg PO DAILY 12/28/22 02/10/23 01/23/23 09:00 History citalopram 20 mg tablet 20 mg PO DAILY 12/28/22 02/10/23 01/23/23 09:00 History famotidine 20 mg tablet 20 mg PO DAILY 12/28/22 02/10/23 01/23/23 09:00 History levothyroxine 100 mcg tablet 100 mcg PO DAILY@0600 12/28/22 02/10/23 01/23/23 06:00 History pantoprazole 40 mg tablet,delayed 40 mg PO DAILY@0630 12/28/22 02/10/23 01/23/23 06:30 History release sodium bicarbonate 325 mg tablet 650 mg PO BID 12/28/22 02/10/23 01/23/23 09:00 History guaifenesin 400 mg tablet 800 mg PO TID congestion 01/14/23 02/10/23 01/23/23 09:00 History benzonatate 100 mg capsule 100 mg PO TID PRN cough 01/23/23 02/10/23 Unknown History morphine 15 mg immediate release 15 mg PO Q4H PRN pain 01/23/23 02/10/23 Unknown History tablet atorvastatin 20 mg tablet 20 mg PO BEDTIME 01/24/23 02/10/23 01/22/23 History ezetimibe 10 mg tablet 10 mg PO DAILY 02/10/23 02/10/23 Unknown History fluticasone fur. 100 mcg-umeclid 1 ea inhalation DAILY 02/10/23 02/10/23 Unknown History 62.5 mcg-vilant 25 mcg inhalat.powder (Trelegy Ellipta) losartan 25 mg tablet 25 mg PO DAILY 02/10/23 02/10/23 Unknown History Physical Exam Vital Signs: Vital Signs: Last Vital Signs Temp 97.9 F 02/10/23 06:32 Pulse 76 02/10/23 06:32 Resp 16 02/10/23 06:32 BP 145/59 H 02/10/23 06:32 Pulse Ox 92 02/10/23 03:48 O2 Del Method Nasal Cannula 02/10/23 06:32 O2 Flow Rate 5 02/10/23 06:32 Oxygen Flow Rate 4 02/10/23 03:07 BMI result Body Mass Index 40.6 Const: General: comfortable and no acute distress Orientation/consciousness: patient oriented x3 HEENT: Other: Unremarkable Head: Yes normal to inspection Neck: Neck: Yes normal visual inspection Chest: Chest palpation & inspection: normal inspection of the chest Resp: Auscultation: crackles and diminished lung sounds Cardio: Palpation: normal PMI Heart sounds: S1 normal heart sound present, S2 normal heart sound present, no gallops, Murmur heart sound present systolic II/ and at the right sternal border and no rubs GI: Palpation (GI): Soft to palpation Back/Spine/Pelvis: Other: unremarkable Skin: General skin exam: no rashes or lesions noted Neuro: General: patient oriented x3 Extrem: General: Yes normal to inspection Psych: Mental Status: mental status grossly normal Objective Labs and Meds 02/10/23 03:42 02/10/23 03:42 Lab results: Laboratory Results - last 24 hr 02/10/23 02/10/23 02/10/23 03:41 03:41 03:41 WBC RBC Hgb Hct MCV MCH MCHC RDW Plt Count MPV Immature Gran % (Auto) Neut % (Auto) Lymph % (Auto) [place] % (Auto) Eos % (Auto) Baso % (Auto) Lymph # (Auto) [place] # (Auto) Eos # (Auto) Baso # (Auto) Abs Immat Gran (auto) Absolute Neuts (auto) Absolute Nucleated RBC Nucleated RBC % (auto) PT 14.7 H INR 1.2 H VBG pH VBG pCO2 VBG pO2 VBG HCO3 VBG O2 Saturation VBG Base Excess Sodium Potassium Chloride Carbon Dioxide Anion Gap BUN Creatinine Estim Creat Clear Calc Estimated GFR Random Glucose Lactic Acid 1.3 Calcium Total Bilirubin Direct Bilirubin AST ALT Alkaline Phosphatase Troponin I High Sens 57.1 H* D B-Natriuretic Peptide Total Protein Albumin 02/10/23 02/10/23 02/10/23 03:41 03:42 03:42 WBC 8.6 RBC 2.84 L Hgb 9.0 L Hct 29.1 L MCV 102.5 H MCH 31.7 MCHC 30.9 L RDW 16.4 H Plt Count 222 MPV 9.9 Immature Gran % (Auto) 0.7 H Neut % (Auto) 64.7 Lymph % (Auto) 22.9 [place] % (Auto) 7.0 Eos % (Auto) 4.1 H Baso % (Auto) 0.6 Lymph # (Auto) 2.0 [place] # (Auto) 0.6 Eos # (Auto) 0.4 Baso # (Auto) 0.1 Abs Immat Gran (auto) 0.06 H Absolute Neuts (auto) 5.5 Absolute Nucleated RBC 0.000 Nucleated RBC % (auto) 0.0 PT INR VBG pH VBG pCO2 VBG pO2 VBG HCO3 VBG O2 Saturation VBG Base Excess Sodium 139 Potassium 5.2 H D Chloride 105 Carbon Dioxide 20 L Anion Gap 19 BUN 27 H Creatinine 2.31 H Estim Creat Clear Calc 20.1 Estimated GFR 20 Random Glucose 109 Lactic Acid Calcium 8.7 Total Bilirubin 1.0 Direct Bilirubin 0.5 AST 17 ALT 11 Alkaline Phosphatase 95 Troponin I High Sens B-Natriuretic Peptide 2076 H Total Protein 6.2 L Albumin 3.2 L 02/10/23 03:45 WBC RBC Hgb Hct MCV MCH MCHC RDW Plt Count MPV Immature Gran % (Auto) Neut % (Auto) Lymph % (Auto) [place] % (Auto) Eos % (Auto) Baso % (Auto) Lymph # (Auto) [place] # (Auto) Eos # (Auto) Baso # (Auto) Abs Immat Gran (auto) Absolute Neuts (auto) Absolute Nucleated RBC Nucleated RBC % (auto) PT INR VBG pH 7.54 H VBG pCO2 27 VBG pO2 78 VBG HCO3 23 VBG O2 Saturation 98.0 VBG Base Excess 1.9 Sodium Potassium Chloride Carbon Dioxide Anion Gap BUN Creatinine Estim Creat Clear Calc Estimated GFR Random Glucose Lactic Acid Calcium Total Bilirubin Direct Bilirubin AST ALT Alkaline Phosphatase Troponin I High Sens B-Natriuretic Peptide Total Protein Albumin ECG Interpretation: EKG with sinus rhythm at 78/Min; cannot exclude old inferior infarct; nonspecific ST-T changes. Imaging Radiologist's impression: Impressions Chest X-Ray 02/10/23 03:46 IMPRESSION: Patchy opacity in the right upper lobe laterally may represent an infiltrate. Left basilar streaky opacity favors atelectasis. Chronic interstitial lung disease. Assessment and Plan (1) Acute on chronic diastolic (congestive) heart failure: Status: Acute (2) Respiratory failure with hypoxia: Qualifiers: Chronicity: acute on chronic Qualified Code(s): J96.21 - Acute and chronic respiratory failure with hypoxia Status: Acute Plan In the last echocardiogram, LVEF 65-70%. Mild to moderate diastolic dysfunction. Mild aortic valve calcification. No evidence of pulmonary hypertension. High sensitivity troponin 57.1. They have been much higher before as much as 7000. Cardiac BNP is higher than before. Currently 2075. Previously 518. Last year, completely normal at less than 100. Chest x-ray with chronic interstitial lung disease. Patchy opacity in the right upper lobe, possible infiltrate. Overall, difficult to say if it is cardiac or respiratory. Could be some combination of both. Empiric diuretics from cardiac. She also has CKD and hence monitor creatinine. Will follow with you. Time Spent With Patient Time: Total time managing care of this patient today ____ minutes. Procedures Date of Service Date of Service: 02/10/23
[2023-02-10] MEDS: Albuterol/Iprat 2.5/0.5MG 3 ML AMPUL.NEB INHALE ×3 (10:07→20:10)
--- NOTE | 2023-02-10 10:44 | PC.NURSE ---
Pt noted to have O2 off and SpO2 monitor. Pt O2 put back on Pt and Pt repositioned, O2 current at 96% on 5L. Pt stated I took it off to talk. Pt educated she can talk with the O2 on and on the importance of keeping the O2 and monitor on to prevent from further injuries.Pt verbalized understanding.
--- NOTE | 2023-02-10 12:49 | MHC.CM.PN ---
Attempted to meet with patient in regards to discharge planning. Patient currently off the unit for a test. Spoke with patient's daughter/HCP, Evie, via telephone at [phone]. Prior to coming the the hospital, patient was at [facility] for short term rehab. Patient stated to Evie that she wanted to be discharged home from facility on 02/10. Patient ended up admitted at [facility]. Patient lives in an in-law apartment at her granddaughter's home. PCP verified. HCP verifid to be on file. Patient received 4 Moderna vaccines. Patient was recieving servicdes through [facility] and [facility]. Patient feels she can safely return home. Evie wants to make sure patient is safe to return home. Physical therapy eval for home safety will be needed when medically stable. IMM explained and left at bedside. Referral made to [facility] via [facility] so they can follow for d/c needs. Evie will transport patient home when medically stable if she passes physical therapy. Continue to monitor for d/c needs.
[2023-02-10 21:16] LABS: ABG Base Excess 2.5 mmol/L; ABG HCO3 25 mmol/L (22-26); ABG pCO2 33 mmHg (32-45); ABG pH 7.48 (7.35-7.45); ABG pO2 94 mmHg (83-108)
[2023-02-10] MEDS: guaiFENesin LA 600 MG TAB.ER.12H PO (21:52)
[2023-02-10] MEDS: Acetaminophen 325 MG TABLET 650 MG PO (22:14)
[2023-02-10] MEDS: Melatonin 3 MG TABLET 6 MG PO (22:14)
[2023-02-10] MEDS: Morphine Sulfate Immed Release 15 MG TABLET PO (22:15)
[2023-02-10 23:57] LABS: ABG Refer to POC result
[2023-02-11] VITALS (8 sets, daily range): BP systolic 121–149; BP diastolic 58–65; PULSE 80–93; RESP 15–21; TEMP 36.1–37.2; O2SAT 92–99
--- NOTE | 2023-02-11 03:37 | PC.NURSE ---
At about 2029 pt was switched from oximask to Hurley nasal cannula, at 10L, so she could eat. This nurse spoke with RT who agreed with plan to continue Hurley until bedtime, as pt reported she had been pulling of the cannula her previous night in the hospital. Around 2049 pt was noted to be anxious, crying, holding the cannula in front of face while blowing her nose. O2 sats were in the low 80s. Switching back to oximask, her sats had actually dropped lower and were slow to climb. RT suggested 15l and ordered ABGs and a repeat chest xray. Eventually her sats climbed back into the 90s at 15L. Since then pt has continued to pull off mask and nursing has reinforced with her the need to continue wearing. This nurse covered the oximask elastic strap to make it more comfortable. Continued reinforcement needed. Since pt was noted to be congested, ordered mucinex BID. Oxygen currently at 12L via oximask.
[2023-02-11] MEDS: Enoxaparin Sodium 30 MG/0.3 ML SYRINGE SUBCUT (05:58)
[2023-02-11 06:50] LABS: MANUAL DIFF FLAG NO
[2023-02-11 06:53] LABS: Basophils Absolute Auto 0.1 X10*3/uL (0.0-0.2); Basophils Percent Auto 0.6 % (0-2); Eosinophils Absolute Auto 0.8 X10*3/uL (0.0-0.4); Eosinophils Percent Auto 6.9 % (0-4); Hematocrit 29.7 % (37.0-47.0); Hemoglobin 9.2 g/dl (12.0-16.0); Imm Gran Abs Auto 0.05 X10*3/uL (0.00-0.03); Imm Gran Pct Auto 0.5 % (0.0-0.4); Lymphocytes Absolute Auto 1.8 X10*3/uL (1.2-4.9); Lymphocytes Percent Auto 16.5 % (20-40); Mean Corpuscular Hemoglobin 30.8 pg (27.0-33.0); Mean Corpuscular Volume 99.3 fL (80.0-98.0); Mean Platelet Volume 10.5 fL (9.4-12.3); Monocytes Absolute Auto 0.9 X10*3/uL (0.1-1.2); Monocytes Percent Auto 8.3 % (2-11); Neutrophils Absolute Auto 7.3 x10*3/uL (2.0-8.3); Neutrophils Percent Auto 67.2 % (45-73); Platelet Count 247 X10*3/uL (160-400); Red Blood Count 2.99 X10*6/uL (4.20-5.50); Red Cell Distribution Width 15.9 % (11.0-16.0); White Blood Count 10.8 X10*3/uL (4.8-10.8)
[2023-02-11 07:15] LABS: B Type Natriuretic Peptide 979 pg/mL (<100)
[2023-02-11] MEDS: guaiFENesin LA 600 MG TAB.ER.12H PO ×2 (07:33→20:15)
[2023-02-11] MEDS: 0.9 % Sodium Chloride Flush 3 ML SYRINGE IVFLUSH ×2 (07:34→17:23)
[2023-02-11] MEDS: Albuterol/Iprat 2.5/0.5MG 3 ML AMPUL.NEB INHALE ×3 (07:42→20:25)
[2023-02-11 08:00] LABS: Anion Gap 20 (12-20); Blood Urea Nitrogen 26 mg/dL (9-16); Calcium 8.5 mg/dL (8.4-10.2); Carbon Dioxide 22 mmol/L (22-29); Chloride 102 mmol/L (96-108); Creatinine Clr Calc Pharmacy 19.4; Estimated Glomerular Filt Rate 20; Glucose Random 92 mg/dL (60-115); Potassium 3.8 mmol/L (3.3-5.1); Sodium 140 mmol/L (135-145)
[2023-02-11] MEDS: Fluticasone/Umeclidinium/Vilanterol 100/62.5/25 BLST.W.DEV 1 PUFF INHALE (08:58)
[2023-02-11] MEDS: Sodium Bicarbonate 650 MG TABLET PO ×2 (08:59→20:15)
[2023-02-11] MEDS: Ranolazine 500 MG TAB.ER.12H PO ×2 (08:59→20:15)
[2023-02-11] MEDS: Metoprolol Tartrate 12.5 MG HALFTAB PO ×2 (08:59→20:16)
[2023-02-11] MEDS: Aspirin Enteric Coated 81 MG TABLET.DR PO (08:59)
[2023-02-11] MEDS: Gabapentin 100 MG CAPSULE PO (09:00)
[2023-02-11] MEDS: Famotidine 20 MG TABLET PO (09:00)
[2023-02-11] MEDS: allopurinoL 100 MG TABLET PO (09:00)
[2023-02-11] MEDS: Losartan Potassium 25 MG TABLET PO (09:00)
--- NOTE | 2023-02-11 10:02 | MHC.CLN ---
NUTRITION REVIEW OF WEIGHT HX SHOWS NO SIGNIFICANT WEIGHT CHANGE X ONE YEAR. OVERALL, -4.8% WEIGHT LOSS X 6 MONTHS.
--- NOTE | 2023-02-11 10:32 | P.PNCA_ITS ---
Subjective Subjective Date of Service: 02/11/23 Interval history: She states that she is feeling better. Shortness of breath seems improved. No chest pains. Review of Systems Review of Systems Yes all other systems are reviewed and are negative Constitutional: Reports as per HPI and Reports no additional constitutional complaints Eyes: Reports as per HPI and Denies no additional eye complaints Denies system reviewed and no additional complaints, except as documented and R eports as per HPI Cardiovascular: Reports as per HPI, Reports no additional cardiovascular complaints, Denies acrocyanosis, Denies cool extremities, Denies chest pain, Denies leg edema, Denies lightheadedness, Denies palpitations and Denies dyspnea Respiratory: Reports as per HPI, Denies no additional respiratory complaints and Denies dyspnea Gastrointestinal: Reports as per HPI and Denies no additional gastrointestinal complaints Genitourinary: Reports as per HPI Musculoskeletal: Reports no additional musculoskeletal complaints and Reports as per HPI Skin/Breast: Reports system reviewed and no additional complaints, except as docu Reports system reviewed and no additional complaints, except as documented and Reports as per HPI Psychiatric: Reports no additional psychiatric complaints and Reports as per HPI Endocrine: Reports no additional endocrine complaints, Reports as per HPI and Denies palpitations Hematologic/Lymphatic: Reports no additional hematologic/lymphatic complaints and Reports as per HPI Allergic/Immunologic: Reports no additional allergic/immunologic complaints and Reports as per HPI Physical Exam Vital Signs: Last Vital Signs Temp 97.3 F 02/11/23 07:28 Pulse 82 02/11/23 07:42 Resp 18 02/11/23 07:42 BP 139/65 02/11/23 07:28 Pulse Ox 98 02/11/23 07:28 O2 Del Method Oxymask 02/11/23 07:28 O2 Flow Rate 15 02/11/23 07:28 Oxygen Flow Rate 4 02/10/23 03:07 BMI result Body Mass Index 39.0 Const General: comfortable and no acute distress Orientation/consciousness: patient oriented x3 HEENT Other: Unremarkable Head: Yes normal to inspection Neck Neck: Yes normal visual inspection Chest Chest palpation & inspection: normal inspection of the chest Resp Auscultation: crackles and diminished lung sounds Cardio Palpation: normal PMI Heart sounds: S1 normal heart sound present, S2 normal heart sound present, no gallops, Murmur heart sound present systolic II/ and at the right sternal border and no rubs GI Palpation (GI): Soft to palpation Back/Spine/Pelvis Other: unremarkable Skin General skin exam: no rashes or lesions noted Neuro General: patient oriented x3 Extrem General: Yes normal to inspection Psych Mental Status: mental status grossly normal Objective Labs and Meds 02/11/23 05:55 02/11/23 05:55 Lab results: Laboratory Results - last 24 hr 02/10/23 02/11/23 02/11/23 21:06 05:55 05:55 WBC 10.8 RBC 2.99 L Hgb 9.2 L Hct 29.7 L MCV 99.3 H MCH 30.8 MCHC 31.0 RDW 15.9 Plt Count 247 MPV 10.5 Immature Gran % (Auto) 0.5 H Neut % (Auto) 67.2 Lymph % (Auto) 16.5 L [place] % (Auto) 8.3 Eos % (Auto) 6.9 H Baso % (Auto) 0.6 Lymph # (Auto) 1.8 [place] # (Auto) 0.9 Eos # (Auto) 0.8 H Baso # (Auto) 0.1 Abs Immat Gran (auto) 0.05 H Absolute Neuts (auto) 7.3 Absolute Nucleated RBC 0.000 Nucleated RBC % (auto) 0.0 O2 Saturation 98.0 ABG pH at Pt Temp 7.48 H ABG pCO2 at Pt Temp 33 ABG pO2 at Pt Temp 94 ABG HCO3 25 ABG Base Excess (Actual) 2.5 Sodium 140 Potassium 3.8 D Chloride 102 Carbon Dioxide 22 Anion Gap 20 BUN 26 H Creatinine 2.34 H Estim Creat Clear Calc 19.4 Estimated GFR 20 Random Glucose 92 Calcium 8.5 B-Natriuretic Peptide 02/11/23 05:55 WBC RBC Hgb Hct MCV MCH MCHC RDW Plt Count MPV Immature Gran % (Auto) Neut % (Auto) Lymph % (Auto) [place] % (Auto) Eos % (Auto) Baso % (Auto) Lymph # (Auto) [place] # (Auto) Eos # (Auto) Baso # (Auto) Abs Immat Gran (auto) Absolute Neuts (auto) Absolute Nucleated RBC Nucleated RBC % (auto) O2 Saturation ABG pH at Pt Temp ABG pCO2 at Pt Temp ABG pO2 at Pt Temp ABG HCO3 ABG Base Excess (Actual) Sodium Potassium Chloride Carbon Dioxide Anion Gap BUN Creatinine Estim Creat Clear Calc Estimated GFR Random Glucose Calcium B-Natriuretic Peptide 979 H Imaging Radiologist's impression: Impressions Chest X-Ray 02/10/23 21:15 IMPRESSION: 1. Worsening pulmonary aeration with increased patchy/hazy airspace opacities in the lateral right lung as well as increased diffuse interstitial coarsening. 2. Asymmetric prominence of the right hilar region that could be associated with underlying lymphadenopathy versus mass. Recommend further evaluation with a CT chest with IV contrast. Progress Note: A&P Assessment and plan (1) Acute on chronic diastolic (congestive) heart failure: Status: Acute (2) Respiratory failure with hypoxia: Status: Acute Plan In the last echocardiogram, LVEF 65-70%. Mild to moderate diastolic dysfunction. Mild aortic valve calcification. No evidence of pulmonary hypertension. High sensitivity troponin 57.1. They have been much higher before as much as 7000. Cardiac BNP is higher than before. Currently 2075. Previously 518. Last year, completely normal at less than 100. Chest x-ray with chronic interstitial lung disease. Patchy opacity in the right upper lobe, possible infiltrate. Myocardial perfusion imaging study shows moderate to severe intensity apical ischemia. Overall, probably some combination of respiratory/cardiac etiology for symptoms. More so respiratory. See seems better. Empiric diuretics as needed. With regard to the suspected coronary disease, previously discussed about cardiac catheterization but it was felt to be too much of a risk due to her co morbidities including CKD and high risk of dialysis. Hence conservatively treated at this time. Patient as well as family are aware. Will follow. Time Spent With Patient Time: Total time managing care of this patient today 45 minutes. This includes time spent in review of chart, laboratory data, imaging studies, review of telemetry, counseling patient, discussion with hospitalist, RN, documentation, coordination of care. Progress Note: Quality Stroke Does the patient have a stroke diagnosis?: No Procedures Date of Service Date of Service: 02/11/23
--- NOTE | 2023-02-11 11:11 | HO.PM.IMPN ---
Subjective Subjective Date of Service: 02/11/23 Interval History: sob with some improvement Physical Exam Vital Signs: Vital Signs: Last Vital Signs Temp 97.3 F 02/11/23 07:28 Pulse 82 02/11/23 07:42 Resp 18 02/11/23 07:42 BP 139/65 02/11/23 07:28 Pulse Ox 98 02/11/23 07:28 O2 Del Method Oxymask 02/11/23 07:28 O2 Flow Rate 15 02/11/23 07:28 Oxygen Flow Rate 4 02/10/23 03:07 BMI result Body Mass Index 39.0 General: AO X 3, no acute distress Resp: Crackles bilateral, no accessory muscles used CVS: S1,S2,RRR GI: soft, non tender, non distended Neuro: motor grossly intact, alert Psych: appropriate affect, appropriate insight Objective Data Active Medications Acetaminophen (Acetaminophen 325 Mg Tablet) 650 mg PO Q6H PRN PRN Reason: Pain, Mild (Pain Scale 1-3) Last Admin: 02/10/23 22:14 Dose: 650 mg Documented By: SHAHANA Albuterol/Ipratropium (Albuterol/Iprat 2.5/0.5mg 3 Ml Ampul.Neb) 3 ml INHALE RQ6H WHILE AWAKE [facility] Last Admin: 02/11/23 07:42 Dose: 3 ml Documented By: DELIA Allopurinol (Allopurinol 100 Mg Tablet) 100 mg PO DAILY [facility] Last Admin: 02/11/23 09:00 Dose: 100 mg Documented By: CARROL Aspirin (Aspirin Enteric Coated 81 Mg Tablet.) 81 mg PO DAILY [facility] Last Admin: 02/11/23 08:59 Dose: 81 mg Documented By: CARROL Atorvastatin Calcium (Atorvastatin Calcium 20 Mg Tablet) 20 mg PO BEDTIME [facility] Enoxaparin Sodium (Enoxaparin Sodium 30 Mg/0.3 Ml Syringe) 30 mg SUBCUT Q24H [facility] Last Admin: 02/11/23 05:58 Dose: 30 mg Documented By: SHAHANA Famotidine (Famotidine 20 Mg Tablet) 20 mg PO DAILY@0630 [facility] Last Admin: 02/11/23 09:00 Dose: 20 mg Documented By: CARROL Fluticasone/Umeclidinium/Vilanterol (Fluticasone/Umeclidinium/Vilanterol 100/62.5/25 Blst.W.Dev) 1 puff INHALE RDAILY [facility] Last Admin: 02/11/23 08:58 Dose: 1 puff Documented By: DELIA Furosemide (Furosemide 40 Mg/4 Ml Vial) 40 mg IVPUSH BID@0900,1800 [facility]; Protocol Gabapentin (Gabapentin 100 Mg Capsule) 100 mg PO DAILY [facility] Last Admin: 02/11/23 09:00 Dose: 100 mg Documented By: CARROL Guaifenesin (Guaifenesin La 600 Mg Tab.Er.12h) 600 mg PO BID [facility] Last Admin: 02/11/23 07:33 Dose: 600 mg Documented By: CARROL Levothyroxine Sodium (Levothyroxine Sodium 100 Mcg Tablet) 100 mcg PO DAILY@0600 [facility] Losartan Potassium (Losartan Potassium 25 Mg Tablet) 25 mg PO DAILY [facility]; Protocol Last Admin: 02/11/23 09:00 Dose: 25 mg Documented By: CARROL Melatonin (Melatonin 3 Mg Tablet) 6 mg PO BEDTIME PRN PRN Reason: Insomnia Last Admin: 02/10/23 22:14 Dose: 6 mg Documented By: SHAHANA Metoprolol Tartrate (Metoprolol Tartrate 12.5 Mg Halftab) 12.5 mg PO BID [facility]; Protocol Last Admin: 02/11/23 08:59 Dose: 12.5 mg Documented By: CARROL Morphine Sulfate (Morphine Sulfate Immed Release 15 Mg Tablet) 15 mg PO Q4H PRN PRN Reason: Pain, Severe (Pain Scale 7-10) Last Admin: 02/10/23 22:15 Dose: 15 mg Documented By: SHAHANA Omeprazole (Omeprazole 20 Mg Capsule.Dr) 20 mg PO DAILY@0630 [facility] Ondansetron HCl (Ondansetron Hcl 4 Mg/2 Ml Vial) 4 mg IVPUSH Q8H PRN PRN Reason: Nausea and Vomiting Pharmacy Consult (Consult Rx Perform Med Rec) 1 each MISCELLANE ONCE PRN PRN Reason: Consult order Prednisone (Prednisone 20 Mg Tablet) 40 mg PO DAILY [facility] Ranolazine (Ranolazine 500 Mg Tab.Er.12h) 500 mg PO BID [facility] Last Admin: 02/11/23 08:59 Dose: 500 mg Documented By: CARROL Sodium Bicarbonate (Sodium Bicarbonate 650 Mg Tablet) 650 mg PO BID [facility] Last Admin: 02/11/23 08:59 Dose: 650 mg Documented By: CARROL Sodium Chloride (0.9 % Sodium Chloride Flush 3 Ml Syringe) 3 ml IVFLUSH QSHIFT [facility] Last Admin: 02/11/23 07:34 Dose: 3 ml Documented By: CARROL Labs 02/11/23 05:55 02/11/23 05:55 Labs: Laboratory Results - last 24 hr 02/10/23 02/11/23 02/11/23 21:06 05:55 05:55 MCV 99.3 H MCH 30.8 MCHC 31.0 RDW 15.9 Plt Count 247 MPV 10.5 Immature Gran % (Auto) 0.5 H Neut % (Auto) 67.2 Lymph % (Auto) 16.5 L Dickinson % (Auto) 8.3 Eos % (Auto) 6.9 H Baso % (Auto) 0.6 Lymph # (Auto) 1.8 Dickinson # (Auto) 0.9 Eos # (Auto) 0.8 H Baso # (Auto) 0.1 Abs Immat Gran (auto) 0.05 H Absolute Neuts (auto) 7.3 Absolute Nucleated RBC 0.000 Nucleated RBC % (auto) 0.0 O2 Saturation 98.0 ABG pH at Pt Temp 7.48 H ABG pCO2 at Pt Temp 33 ABG pO2 at Pt Temp 94 ABG HCO3 25 ABG Base Excess (Actual) 2.5 Anion Gap 20 Estim Creat Clear Calc 19.4 Estimated GFR 20 Random Glucose 92 Calcium 8.5 B-Natriuretic Peptide 02/11/23 05:55 MCV MCH MCHC RDW Plt Count MPV Immature Gran % (Auto) Neut % (Auto) Lymph % (Auto) Dickinson % (Auto) Eos % (Auto) Baso % (Auto) Lymph # (Auto) Dickinson # (Auto) Eos # (Auto) Baso # (Auto) Abs Immat Gran (auto) Absolute Neuts (auto) Absolute Nucleated RBC Nucleated RBC % (auto) O2 Saturation ABG pH at Pt Temp ABG pCO2 at Pt Temp ABG pO2 at Pt Temp ABG HCO3 ABG Base Excess (Actual) Anion Gap Estim Creat Clear Calc Estimated GFR Random Glucose Calcium B-Natriuretic Peptide 979 H Microbiology Microbiology Results: Microbiology 02/10/23 03:47 Blood Culture - Preliminary Blood - Venous No growth after 24 hours. 02/10/23 03:42 Blood Culture - Preliminary Blood - Venous No growth after 24 hours. Assessment and Plan (1) Acute on chronic diastolic (congestive) heart failure: Status: Acute Plan 82F PMH? hypothyroidism, CKD IV, essential hypertension, restless leg syndrome, chronic hypoxemic respiratory failure due to interstitial lung disease, congestive heart failure with preserved ejection fraction, coronary artery disease, presented with sob Acute on chronic hypoxic respiratory failure due to acute on chronic diastolic CHF and acute exacerbation of interstitial lung disease IV Lasix 40 mg b.i.d., monitor BMP closely Will initiate prednisone 40 mg daily Wean oxygen for goal saturation of 91-94% Coronary disease Significant fixed ischemia on stress test with normal EF Continue aspirin, statin, beta-michael, [facility] following, catheterization deferred due to CKD 4, recent DEVIN Hypothyroid Synthroid CKD 4 A baseline, monitor closely Obesity Weight loss recommended DVT prophylaxis with Lovenox DNR/DNI reason for continued hospitalization:iv diuresis, weaning o2 Time Spent With Patient Time: Total time managing care of this patient today ____ minutes. Quality Stroke Does the patient have a stroke diagnosis?: No VTE Prior VTE?: No VTE Risk Level:: Medical - moderate - high VTE Device Contraindication: Treatment Not Indicated VTE Drug Contraindication: N/A - Med Ordered
[2023-02-11] MEDS: predniSONE 20 MG TABLET 40 MG PO (11:23)
--- NOTE | 2023-02-11 15:17 | MHC.CM.PN ---
Per MD rounds no discharge today. Patient is not medically clear. Patient will need a PT eval when medically clear. DP return to [place] via BLS pending PT eval.
[2023-02-11] MEDS: Furosemide 40 MG/4 ML VIAL IVPUSH (17:23)
[2023-02-11] MEDS: Morphine Sulfate Immed Release 15 MG TABLET PO (20:14)
[2023-02-11] MEDS: Benzonatate 100 MG CAPSULE 200 MG PO (20:15)
[2023-02-11] MEDS: Acetaminophen 325 MG TABLET 650 MG PO (20:15)
[2023-02-11] MEDS: Melatonin 3 MG TABLET 6 MG PO (20:16)
[2023-02-11] MEDS: Atorvastatin Calcium 20 MG TABLET PO (20:16)
[2023-02-12] VITALS (8 sets, daily range): BP systolic 101–151; BP diastolic 43–62; PULSE 63–81; RESP 16–20; TEMP 36.1–36.5; O2SAT 92–99
[2023-02-12] MEDS: OLANZapine 10 MG VIAL 5 MG IM (01:14)
--- NOTE | 2023-02-12 05:19 | PC.NURSE ---
Pt continued to remove oximask, an estimated thirty times this shift, with consistent oxygen desaturation as low as 60%. [facility]. Pt's o2 sats also noted to have dropped to 60s% after being left on nebulizer mask by RT, recovered with reapplication of oximask at 15L. Currently on 12L via oximask. Pt has also had in-room sitter. At 0100 this nurse contacted MD about something to help pt sleep/address her restlessness/agitation (had already administered PRN melatonin.) Pt was amenable. MD ordered 5m zyprexa IM. Pt education provided about medication and IM administration. Pt again amenable. Pt has been sleeping since, except for briefly awaking with some confusion. Redirected and sleeping again. O2 sats maintained above 95%. VSS.
[2023-02-12] MEDS: Enoxaparin Sodium 30 MG/0.3 ML SYRINGE SUBCUT (06:06)
[2023-02-12 06:48] LABS: Hematocrit 24.1 % (37.0-47.0); Hemoglobin 7.5 g/dl (12.0-16.0); Mean Corpuscular HGB Conc 31.1 g/dl (31.0-35.0); Mean Corpuscular Hemoglobin 30.6 pg (27.0-33.0); Mean Corpuscular Volume 98.4 fL (80.0-98.0); Mean Platelet Volume 10.8 fL (9.4-12.3); Platelet Count 239 X10*3/uL (160-400); Red Blood Count 2.45 X10*6/uL (4.20-5.50); Red Cell Distribution Width 15.7 % (11.0-16.0); White Blood Count 8.9 X10*3/uL (4.8-10.8)
[2023-02-12 07:02] LABS: Anion Gap 17 (12-20); Blood Urea Nitrogen 38 mg/dL (9-16); Calcium 7.7 mg/dL (8.4-10.2); Carbon Dioxide 23 mmol/L (22-29); Chloride 101 mmol/L (96-108); Creatinine Clr Calc Pharmacy 16.2; Estimated Glomerular Filt Rate 16; Glucose Fasting 157 mg/dL (60-99); Magnesium 1.7 mg/dL (1.6-2.6); Potassium 4.7 mmol/L (3.3-5.1); Sodium 136 mmol/L (135-145)
[2023-02-12] MEDS: Fluticasone/Umeclidinium/Vilanterol 100/62.5/25 BLST.W.DEV 1 PUFF INHALE (09:09)
[2023-02-12] MEDS: Albuterol/Iprat 2.5/0.5MG 3 ML AMPUL.NEB INHALE ×3 (09:09→19:20)
[2023-02-12] MEDS: Aspirin Enteric Coated 81 MG TABLET.DR PO (09:30)
[2023-02-12] MEDS: Furosemide 40 MG/4 ML VIAL IVPUSH (09:30)
[2023-02-12] MEDS: allopurinoL 100 MG TABLET PO (09:30)
[2023-02-12] MEDS: Sodium Bicarbonate 650 MG TABLET PO ×2 (09:30→20:22)
[2023-02-12] MEDS: Gabapentin 100 MG CAPSULE PO (09:30)
[2023-02-12] MEDS: Losartan Potassium 25 MG TABLET PO (09:30)
[2023-02-12] MEDS: Ranolazine 500 MG TAB.ER.12H PO ×2 (09:30→20:22)
[2023-02-12] MEDS: predniSONE 20 MG TABLET 40 MG PO (09:30)
[2023-02-12] MEDS: Metoprolol Tartrate 12.5 MG HALFTAB PO ×2 (09:32→20:23)
[2023-02-12] MEDS: guaiFENesin LA 600 MG TAB.ER.12H PO ×2 (09:32→20:23)
[2023-02-12] MEDS: 0.9 % Sodium Chloride Flush 3 ML SYRINGE IVFLUSH ×2 (09:33→16:16)
--- NOTE | 2023-02-12 11:54 | P.PNIM_ITS ---
Subjective Subjective Date of Service: 02/12/23 Interval History: delirious last night needed zyprexa, now sleepy Physical Exam Vital Signs: Vital Signs: Last Vital Signs Temp 97.5 F 02/12/23 07:39 Pulse 76 02/12/23 09:09 Resp 18 02/12/23 09:09 BP 133/58 L 02/12/23 07:39 Pulse Ox 98 02/12/23 07:39 O2 Del Method Nasal Cannula 02/12/23 07:39 O2 Flow Rate 6 02/12/23 07:39 Oxygen Flow Rate 4 02/10/23 03:07 BMI result Body Mass Index 39.0 lethargic, confused Objective Data Active Medications Acetaminophen (Acetaminophen 325 Mg Tablet) 650 mg PO Q6H PRN PRN Reason: Pain, Mild (Pain Scale 1-3) Last Admin: 02/11/23 20:15 Dose: 650 mg Documented By: SHAHANA Albuterol/Ipratropium (Albuterol/Iprat 2.5/0.5mg 3 Ml Ampul.Neb) 3 ml INHALE RQ6H WHILE AWAKE [facility] Last Admin: 02/12/23 09:09 Dose: 3 ml Documented By: ALEX Allopurinol (Allopurinol 100 Mg Tablet) 100 mg PO DAILY [facility] Last Admin: 02/12/23 09:30 Dose: 100 mg Documented By: CARROL Aspirin (Aspirin Enteric Coated 81 Mg Tablet.) 81 mg PO DAILY [facility] Last Admin: 02/12/23 09:30 Dose: 81 mg Documented By: CARROL Atorvastatin Calcium (Atorvastatin Calcium 20 Mg Tablet) 20 mg PO BEDTIME [facility] Last Admin: 02/11/23 20:16 Dose: 20 mg Documented By: SHAHANA Benzonatate (Benzonatate 100 Mg Capsule) 200 mg PO TID PRN PRN Reason: Cough Last Admin: 02/11/23 20:15 Dose: 200 mg Documented By: SHAHANA Enoxaparin Sodium (Enoxaparin Sodium 30 Mg/0.3 Ml Syringe) 30 mg SUBCUT Q24H [facility] Last Admin: 02/12/23 06:06 Dose: 30 mg Documented By: SHAHANA Famotidine (Famotidine 20 Mg Tablet) 20 mg PO DAILY@0630 [facility] Last Admin: 02/12/23 06:07 Dose: Not Given Documented By: SHAHANA Non-Admin Reason: pt too somnolent Fluticasone/Umeclidinium/Vilanterol (Fluticasone/Umeclidinium/Vilanterol 100/62.5/25 Blst.W.Dev) 1 puff INHALE RDAILY [facility] Last Admin: 02/12/23 09:09 Dose: 1 puff Documented By: ALEX Furosemide (Furosemide 40 Mg/4 Ml Vial) 40 mg IVPUSH BID@0900,1800 [facility]; Protocol Last Admin: 02/12/23 09:30 Dose: 40 mg Documented By: CARROL Gabapentin (Gabapentin 100 Mg Capsule) 100 mg PO DAILY [facility] Last Admin: 02/12/23 09:30 Dose: 100 mg Documented By: CARROL Guaifenesin (Guaifenesin La 600 Mg Tab.Er.12h) 600 mg PO BID [facility] Last Admin: 02/12/23 09:32 Dose: 600 mg Documented By: CARROL Levothyroxine Sodium (Levothyroxine Sodium 100 Mcg Tablet) 100 mcg PO DAILY@0600 [facility] Last Admin: 02/12/23 06:07 Dose: Not Given Documented By: SHAHANA Non-Admin Reason: pt too somnolent Losartan Potassium (Losartan Potassium 25 Mg Tablet) 25 mg PO DAILY [facility]; Protocol Last Admin: 02/12/23 09:30 Dose: 25 mg Documented By: CARROL Melatonin (Melatonin 3 Mg Tablet) 6 mg PO BEDTIME PRN PRN Reason: Insomnia Last Admin: 02/11/23 20:16 Dose: 6 mg Documented By: SHAHANA Metoprolol Tartrate (Metoprolol Tartrate 12.5 Mg Halftab) 12.5 mg PO BID [facility]; Protocol Last Admin: 02/12/23 09:32 Dose: 12.5 mg Documented By: CARROL Morphine Sulfate (Morphine Sulfate Immed Release 15 Mg Tablet) 15 mg PO Q4H PRN PRN Reason: Pain, Severe (Pain Scale 7-10) Last Admin: 02/11/23 20:14 Dose: 15 mg Documented By: SHAHANA Omeprazole (Omeprazole 20 Mg Capsule.) 20 mg PO DAILY@0630 [facility] Last Admin: 02/12/23 06:07 Dose: Not Given Documented By: SHAHANA Non-Admin Reason: pt too somnolent Ondansetron HCl (Ondansetron Hcl 4 Mg/2 Ml Vial) 4 mg IVPUSH Q8H PRN PRN Reason: Nausea and Vomiting Pharmacy Consult (Consult Rx Perform Med Rec) 1 each MISCELLANE ONCE PRN PRN Reason: Consult order Prednisone (Prednisone 20 Mg Tablet) 40 mg PO DAILY [facility] Last Admin: 02/12/23 09:30 Dose: 40 mg Documented By: CARROL Ranolazine (Ranolazine 500 Mg Tab.Er.12h) 500 mg PO BID [facility] Last Admin: 02/12/23 09:30 Dose: 500 mg Documented By: CARROL Sodium Bicarbonate (Sodium Bicarbonate 650 Mg Tablet) 650 mg PO BID [facility] Last Admin: 02/12/23 09:30 Dose: 650 mg Documented By: CARROL Sodium Chloride (0.9 % Sodium Chloride Flush 3 Ml Syringe) 3 ml IVFLUSH QSHIFT [facility] Last Admin: 02/12/23 09:33 Dose: 3 ml Documented By: CARROL Labs 02/12/23 06:17 02/12/23 06:17 Labs: Laboratory Results - last 24 hr 02/12/23 02/12/23 06:17 06:17 MCV 98.4 H MCH 30.6 MCHC 31.1 RDW 15.7 Plt Count 239 MPV 10.8 Absolute Nucleated RBC 0.000 Nucleated RBC % (auto) 0.0 Anion Gap 17 Estim Creat Clear Calc 16.2 Estimated GFR 16 Fasting Glucose 157 H Calcium 7.7 L D Magnesium 1.7 Microbiology Microbiology Results: Microbiology 02/10/23 03:47 Blood Culture - Preliminary Blood - Venous No growth after 48 hours. 02/10/23 03:42 Blood Culture - Preliminary Blood - Venous No growth after 48 hours. Assessment and Plan (1) Acute on chronic diastolic (congestive) heart failure: Status: Acute Plan 82F PMH? hypothyroidism, CKD IV, essential hypertension, restless leg syndrome, chronic hypoxemic respiratory failure due to interstitial lung disease, congestive heart failure with preserved ejection fraction, coronary artery disease, presented with sob Acute on chronic hypoxic respiratory failure due to acute on chronic diastolic CHF and acute exacerbation of interstitial lung disease will change to po lasix initiated prednisone 40 mg daily Wean oxygen for goal saturation of 91-94% acute delerium ?due to hospitalization, monitor, orienting strategies Coronary disease Significant fixed ischemia on stress test with normal EF Continue aspirin, statin, beta-michael, [facility] following, catheterization deferred due to CKD 4, recent DEVIN Hypothyroid Synthroid CKD 4 A baseline, monitor closely Obesity Weight loss recommended DVT prophylaxis with Lovenox DNR/DNI reason for continued hospitalization:delerium, weaning o2 Time Spent With Patient Time: Total time managing care of this patient today ____ minutes. Quality Stroke Does the patient have a stroke diagnosis?: No VTE Prior VTE?: No VTE Risk Level:: Medical - moderate - high VTE Device Contraindication: Treatment Not Indicated VTE Drug Contraindication: N/A - Med Ordered
--- NOTE | 2023-02-12 15:41 | MHC.CM.PN ---
HVNA AND SULEMA ALBA UPDATED IN [facility]
[2023-02-12] MEDS: Atorvastatin Calcium 20 MG TABLET PO (20:23)
[2023-02-12] MEDS: Melatonin 3 MG TABLET 6 MG PO (22:44)
[2023-02-13] VITALS (9 sets, daily range): BP systolic 90–110; BP diastolic 47–63; PULSE 64–78; RESP 16–20; TEMP 36.2–36.7; O2SAT 91–95
--- NOTE | 2023-02-13 05:11 | PC.NURSE ---
Ludy Atkins room 371, was given a prn med melatonin, but she said that it didn't help. Pt asked for another sleep med. Dr. Damon was notfified.
[2023-02-13] MEDS: Omeprazole 20 MG CAPSULE.DR PO (05:51)
[2023-02-13] MEDS: Levothyroxine Sodium 100 MCG TABLET PO (05:52)
[2023-02-13] MEDS: Enoxaparin Sodium 30 MG/0.3 ML SYRINGE SUBCUT (05:52)
[2023-02-13] MEDS: Famotidine 20 MG TABLET PO (05:52)
[2023-02-13 06:58] LABS: Hematocrit 26.8 % (37.0-47.0); Hemoglobin 8.4 g/dl (12.0-16.0); Mean Corpuscular HGB Conc 31.3 g/dl (31.0-35.0); Mean Corpuscular Hemoglobin 30.7 pg (27.0-33.0); Mean Corpuscular Volume 97.8 fL (80.0-98.0); Mean Platelet Volume 10.6 fL (9.4-12.3); Platelet Count 278 X10*3/uL (160-400); Red Blood Count 2.74 X10*6/uL (4.20-5.50); Red Cell Distribution Width 16.2 % (11.0-16.0); White Blood Count 10.7 X10*3/uL (4.8-10.8)
[2023-02-13 07:24] LABS: Anion Gap 20 (12-20); Blood Urea Nitrogen 52 mg/dL (9-16); Calcium 7.5 mg/dL (8.4-10.2); Carbon Dioxide 21 mmol/L (22-29); Chloride 101 mmol/L (96-108); Creatinine Clr Calc Pharmacy 12.5; Estimated Glomerular Filt Rate 12; Glucose Fasting 105 mg/dL (60-99); Potassium 4.6 mmol/L (3.3-5.1); Sodium 137 mmol/L (135-145)
[2023-02-13 07:35] LABS: B Type Natriuretic Peptide 860 pg/mL (<100)
[2023-02-13] MEDS: Albuterol/Iprat 2.5/0.5MG 3 ML AMPUL.NEB INHALE ×3 (07:54→18:47)
[2023-02-13] MEDS: Fluticasone/Umeclidinium/Vilanterol 100/62.5/25 BLST.W.DEV 1 PUFF INHALE (07:54)
[2023-02-13] MEDS: guaiFENesin LA 600 MG TAB.ER.12H PO ×2 (08:02→21:25)
[2023-02-13] MEDS: Metoprolol Tartrate 12.5 MG HALFTAB PO ×2 (08:02→21:25)
[2023-02-13] MEDS: allopurinoL 100 MG TABLET PO (08:02)
[2023-02-13] MEDS: Ranolazine 500 MG TAB.ER.12H PO ×2 (08:02→21:24)
[2023-02-13] MEDS: Losartan Potassium 25 MG TABLET PO (08:02)
[2023-02-13] MEDS: Gabapentin 100 MG CAPSULE PO (08:02)
[2023-02-13] MEDS: Furosemide 40 MG TABLET PO (08:02)
[2023-02-13] MEDS: predniSONE 20 MG TABLET 40 MG PO (08:02)
[2023-02-13] MEDS: Aspirin Enteric Coated 81 MG TABLET.DR PO (08:02)
[2023-02-13] MEDS: Sodium Bicarbonate 650 MG TABLET PO ×2 (08:03→21:25)
[2023-02-13] MEDS: 0.9 % Sodium Chloride Flush 3 ML SYRINGE IVFLUSH ×2 (08:03→17:17)
--- NOTE | 2023-02-13 09:23 | P.PNIM_ITS ---
Subjective Subjective Date of Service: 02/13/23 Interval History: more alert today, but not at baseline Physical Exam Vital Signs: Vital Signs: Last Vital Signs Temp 97.9 F 02/13/23 07:06 Pulse 74 02/13/23 07:54 Resp 18 02/13/23 07:54 BP 98/63 02/13/23 07:06 Pulse Ox 94 02/13/23 07:06 O2 Del Method Oxymask 02/13/23 07:06 O2 Flow Rate 6 02/13/23 07:06 Oxygen Flow Rate 4 02/10/23 03:07 BMI result Body Mass Index 39.0 General: letahrgic O X 3, no acute distress Resp: CTA bilateral, no accessory muscles used CVS: S1,S2,RRR GI: soft, non tender, non distended Neuro: motor grossly intact, alert Psych: appropriate affect, appropriate insight Objective Data Active Medications Acetaminophen (Acetaminophen 325 Mg Tablet) 650 mg PO Q6H PRN PRN Reason: Pain, Mild (Pain Scale 1-3) Last Admin: 02/11/23 20:15 Dose: 650 mg Documented By: SHAHANA Albuterol/Ipratropium (Albuterol/Iprat 2.5/0.5mg 3 Ml Ampul.Neb) 3 ml INHALE RQ6H WHILE AWAKE [facility] Last Admin: 02/13/23 07:54 Dose: 3 ml Documented By: ARNOLD Allopurinol (Allopurinol 100 Mg Tablet) 100 mg PO DAILY [facility] Last Admin: 02/13/23 08:02 Dose: 100 mg Documented By: ZARI Aspirin (Aspirin Enteric Coated 81 Mg Tablet.) 81 mg PO DAILY [facility] Last Admin: 02/13/23 08:02 Dose: 81 mg Documented By: ZARI Atorvastatin Calcium (Atorvastatin Calcium 20 Mg Tablet) 20 mg PO BEDTIME [facility] Last Admin: 02/12/23 20:23 Dose: 20 mg Documented By: KWABENA Benzonatate (Benzonatate 100 Mg Capsule) 200 mg PO TID PRN PRN Reason: Cough Last Admin: 02/11/23 20:15 Dose: 200 mg Documented By: SHAHANA Enoxaparin Sodium (Enoxaparin Sodium 30 Mg/0.3 Ml Syringe) 30 mg SUBCUT Q24H [facility] Last Admin: 02/13/23 05:52 Dose: 30 mg Documented By: KWABENA Famotidine (Famotidine 20 Mg Tablet) 20 mg PO DAILY@629 [facility] Last Admin: 02/13/23 05:52 Dose: 20 mg Documented By: KWABENA Fluticasone/Umeclidinium/Vilanterol (Fluticasone/Umeclidinium/Vilanterol 100/62.5/25 Blst.W.Dev) 1 puff INHALE RDAILY [facility] Last Admin: 02/13/23 07:54 Dose: 1 puff Documented By: ARNOLD Gabapentin (Gabapentin 100 Mg Capsule) 100 mg PO DAILY [facility] Last Admin: 02/13/23 08:02 Dose: 100 mg Documented By: ZARI Guaifenesin (Guaifenesin La 600 Mg Tab.Er.12h) 600 mg PO BID [facility] Last Admin: 02/13/23 08:02 Dose: 600 mg Documented By: ZARI Levothyroxine Sodium (Levothyroxine Sodium 100 Mcg Tablet) 100 mcg PO DAILY@06 [facility] Last Admin: 02/13/23 05:52 Dose: 100 mcg Documented By: KWABENA Melatonin (Melatonin 3 Mg Tablet) 6 mg PO BEDTIME PRN PRN Reason: Insomnia Last Admin: 02/12/23 22:44 Dose: 6 mg Documented By: KWABENA Metoprolol Tartrate (Metoprolol Tartrate 12.5 Mg Halftab) 12.5 mg PO BID [facility]; Protocol Last Admin: 02/13/23 08:02 Dose: 12.5 mg Documented By: ZARI Morphine Sulfate (Morphine Sulfate Immed Release 15 Mg Tablet) 15 mg PO Q4H PRN PRN Reason: Pain, Severe (Pain Scale 7-10) Last Admin: 02/11/23 20:14 Dose: 15 mg Documented By: SHAHANA Omeprazole (Omeprazole 20 Mg Capsule.) 20 mg PO DAILY@629 [facility] Last Admin: 02/13/23 05:51 Dose: 20 mg Documented By: KWABENA Ondansetron HCl (Ondansetron Hcl 4 Mg/2 Ml Vial) 4 mg IVPUSH Q8H PRN PRN Reason: Nausea and Vomiting Pharmacy Consult (Consult Rx Perform Med Rec) 1 each MISCELLANE ONCE PRN PRN Reason: Consult order Prednisone (Prednisone 20 Mg Tablet) 40 mg PO DAILY [facility] Last Admin: 02/13/23 08:02 Dose: 40 mg Documented By: ZARI Ranolazine (Ranolazine 500 Mg Tab.Er.12h) 500 mg PO BID [facility] Last Admin: 02/13/23 08:02 Dose: 500 mg Documented By: ZARI Sodium Bicarbonate (Sodium Bicarbonate 650 Mg Tablet) 650 mg PO BID [facility] Last Admin: 02/13/23 08:03 Dose: 650 mg Documented By: ZARI Sodium Chloride (0.9 % Sodium Chloride Flush 3 Ml Syringe) 3 ml IVFLUSH QSHIFT [facility] Last Admin: 02/13/23 08:03 Dose: 3 ml Documented By: ZARI Labs 02/13/23 06:38 02/13/23 06:38 Labs: Laboratory Results - last 24 hr 02/13/23 02/13/23 02/13/23 06:38 06:38 06:38 MCV 97.8 MCH 30.7 MCHC 31.3 RDW 16.2 H Plt Count 278 MPV 10.6 Absolute Nucleated RBC 0.000 Nucleated RBC % (auto) 0.0 Anion Gap 20 Estim Creat Clear Calc 12.5 Estimated GFR 12 Fasting Glucose 105 H Calcium 7.5 L B-Natriuretic Peptide 860 H Microbiology Microbiology Results: Microbiology 02/10/23 03:47 Blood Culture - Preliminary Blood - Venous No growth after 48 hours. 02/10/23 03:42 Blood Culture - Preliminary Blood - Venous No growth after 48 hours. Assessment and Plan (1) Acute on chronic diastolic (congestive) heart failure: Status: Acute Plan 82F PMH? hypothyroidism, CKD IV, essential hypertension, restless leg syndrome, chronic hypoxemic respiratory failure due to interstitial lung disease, congestive heart failure with preserved ejection fraction, coronary artery disease, presented with sob Acute on chronic hypoxic respiratory failure due to acute on chronic diastolic CHF and acute exacerbation of interstitial lung disease diuresed well, will hold lasix initiated prednisone 40 mg daily Wean oxygen for goal saturation of 91-94%, baseline o2 around 3L acute delerium vs acute metabolic encephalopathy due to Devin on CKD IV holding losartan, lasix nephro eval Coronary disease Significant fixed ischemia on stress test with normal EF Continue aspirin, statin, beta-michael, [facility] following, catheterization deferred due to CKD 4, recent DEVIN Hypothyroid Synthroid Obesity Weight loss recommended DVT prophylaxis with Lovenox DNR/DNI reason for continued hospitalization:devin, weaning o2 Time Spent With Patient Time: Total time managing care of this patient today ____ minutes. Quality Stroke Does the patient have a stroke diagnosis?: No VTE Prior VTE?: No VTE Risk Level:: Medical - moderate - high VTE Device Contraindication: Treatment Not Indicated VTE Drug Contraindication: N/A - Med Ordered
--- NOTE | 2023-02-13 12:58 | MHC.CM.PN ---
NO PLAN FOR DC TODAY RENAL FUNCTIONS STILL DECLINING. SULEMA ALBA AND RANDI MADE AWARE DISPO PER FURTHER EVALUATION
--- NOTE | 2023-02-13 17:38 | P.CONNP_ITS ---
History of Present Illness Reason for Consult Consult date: 02/13/23 Chief Complaint Chief complaint: Dyspnea History of Present Illness Narrative: Ms. Ludy Atkins is an 82-year-old female with past medical history of CKD stage IV/V, HTN, T2DM, Hyperuricemia, hypothyroidism, and COPD/Bronchitis who presented with dyspnea now being treated for ILD with prednisone and volume overload with diuresis. Last admission in December she presented with similar. She actually required iHD for a short course before having some renal recovery. The pt had her RUE AVF placed Thursday12/24/22 at [facility]. Review of Systems Review of Systems Constitutional : No Weight loss, No Fever, No Chills, No Night Sweats, No Fatigue, No Malaise ENT/Mouth : No Hearing loss, No Ear Pain, No Nasal Congestion, No Sinus Pain, No Hoarseness, No sore throat, No Rhinorrhea, No Swallowing Difficulty Eyes: No Eye Pain, No Swelling, No Redness, No Foreign Body, No Discharge, No Vision Changes Cardiovascular : No Chest Pain, No SOB, No Dyspnea on Exertion, No Orthopnea, No Edema, No Palpitations Respiratory : Complaining of low oxygen saturation. No Cough, No Sputum, No Wheezing, No Smoke Exposure, No Dyspnea Gastrointestinal : No Nausea, No Vomiting, No Diarrhea, No Constipation, No abdominal Pain, No Hematochezia, No Melena Genitourinary : no irregular bleeding, No Dysuria, No Urinary Frequency, No Hematuria, No Urinary Incontinence, No Urgency, No Flank Pain, No Urinary Flow Changes, No Hesitancy Musculoskeletal : No joint pain, No Myalgias, No Joint Swelling Skin : No Skin Lesions, No rash Neuro : No Weakness, No Numbness, No Paresthesias, No Loss of Consciousness, No Dizziness, No Headache Psych : No Anxiety/Panic, No Depression, No SI/HI/AH/VH, No Social Issues, Heme/Lymph: No Bruising, No Bleeding,No Lymphadenopathy Endocrine : No Polyuria, No Polydipsia, No Temperature Intolerance [facility] Past Medical History Medical History Acquired hypothyroidism Cough Depression, major, recurrent Diabetes Dyslipidemia Fibromyalgia Heart murmur Interstitial lung disease Kidney failure, acute Osteoarthritis of multiple joints Respiratory failure with hypoxia Family History Family History Brother Substance use disorder Son Substance use disorder Daughter Substance use disorder Surgical History Surgical History H/O hemorrhoidectomy Hx of fusion of cervical spine Hx of tonsillectomy S/P anal fissurectomy S/P appendectomy S/P partial hysterectomy Social History Social History Household Members: Family Housing: House Do you presently have visiting nurse or other home services: No (states she's working on it.) Alcohol intake: former Patient Tobacco Use Status: Former Tobacco user Quit Date: 15 years ago Years Smoked: 20 +/- on and off Smoked in Last 30 Days: No e-Cigarette/Vaping Use: Never Used Second Hand Smoke Exposure: No Use of substances other than those prescribed or required for medical reasons: No Currently Displaying Signs/Symptoms of Drug Intoxication Withdrawal: No Any prior treatment program specific to substance use: No Have you been hit, kicked, punched, or otherwise hurt by someone within the past year? If so, by whom?: No Do you feel safe in your current relationship?: Yes Is there a partner from a previous relationship who is making you feel unsafe now?: No Are you made to feel afraid or neglected: No Advance Directives: Yes Advance Directives on File: Yes Advance Directives Date on File: 08/28/21 Do you have thoughts of harming others: None Do you have a plan to hurt others: No Plan Recently lost weight without trying: Yes How much weight loss: 34pounds or more Eating poorly because of decreased appetite: Yes Nutrition screen score: 7 Nutrition Risks: Difficulty chewing and Difficulty swallowing Patient : No : No Poor oral hygiene: No service: No Current occupational status: retired Current occupation: right handed Cognitive needs: No Hearing needs: No Vision needs: Yes Meds Allergies Allergy/AdvReac Type Severity Reaction Status Date / Time NSAIDS (Non-Steroidal Allergy Unknown Verified 02/10/23 03:11 Anti-Inflamma Agjqiro-LKF-[id number] Reductase AdvReac Severe LEG PAIN Verified 02/10/23 03:11 Inhibitor Active Medications: Current Medications Acetaminophen (Acetaminophen 325 Mg Tablet) 650 mg PO Q6H PRN PRN Reason: Pain, Mild (Pain Scale 1-3) Last Admin: 02/11/23 20:15 Dose: 650 mg Albuterol/Ipratropium (Albuterol/Iprat 2.5/0.5mg 3 Ml Ampul.Neb) 3 ml INHALE RQ6H WHILE AWAKE [facility] Last Admin: 02/13/23 14:15 Dose: 3 ml Allopurinol (Allopurinol 100 Mg Tablet) 100 mg PO DAILY [facility] Last Admin: 02/13/23 08:02 Dose: 100 mg Aspirin (Aspirin Enteric Coated 81 Mg Tablet.Dr) 81 mg PO DAILY [facility] Last Admin: 02/13/23 08:02 Dose: 81 mg Atorvastatin Calcium (Atorvastatin Calcium 20 Mg Tablet) 20 mg PO BEDTIME [facility] Last Admin: 02/12/23 20:23 Dose: 20 mg Benzonatate (Benzonatate 100 Mg Capsule) 200 mg PO TID PRN PRN Reason: Cough Last Admin: 02/11/23 20:15 Dose: 200 mg Enoxaparin Sodium (Enoxaparin Sodium 30 Mg/0.3 Ml Syringe) 30 mg SUBCUT Q24H [facility] Last Admin: 02/13/23 05:52 Dose: 30 mg Famotidine (Famotidine 20 Mg Tablet) 20 mg PO DAILY@0630 [facility] Last Admin: 02/13/23 05:52 Dose: 20 mg Fluticasone/Umeclidinium/Vilanterol (Fluticasone/Umeclidinium/Vilanterol 100/62.5/25 Blst.W.Dev) 1 puff INHALE RDAILY [facility] Last Admin: 02/13/23 07:54 Dose: 1 puff Gabapentin (Gabapentin 100 Mg Capsule) 100 mg PO DAILY [facility] Last Admin: 02/13/23 08:02 Dose: 100 mg Guaifenesin (Guaifenesin La 600 Mg Tab.Er.12h) 600 mg PO BID [facility] Last Admin: 02/13/23 08:02 Dose: 600 mg Levothyroxine Sodium (Levothyroxine Sodium 100 Mcg Tablet) 100 mcg PO DAILY@0600 [facility] Last Admin: 02/13/23 05:52 Dose: 100 mcg Melatonin (Melatonin 3 Mg Tablet) 6 mg PO BEDTIME PRN PRN Reason: Insomnia Last Admin: 02/12/23 22:44 Dose: 6 mg Metoprolol Tartrate (Metoprolol Tartrate 12.5 Mg Halftab) 12.5 mg PO BID [facility]; Protocol Last Admin: 02/13/23 08:02 Dose: 12.5 mg Morphine Sulfate (Morphine Sulfate Immed Release 15 Mg Tablet) 15 mg PO Q4H PRN PRN Reason: Pain, Severe (Pain Scale 7-10) Last Admin: 02/11/23 20:14 Dose: 15 mg Omeprazole (Omeprazole 20 Mg Capsule.Dr) 20 mg PO DAILY@0630 [facility] Last Admin: 02/13/23 05:51 Dose: 20 mg Ondansetron HCl (Ondansetron Hcl 4 Mg/2 Ml Vial) 4 mg IVPUSH Q8H PRN PRN Reason: Nausea and Vomiting Pharmacy Consult (Consult Rx Perform Med Rec) 1 each MISCELLANE ONCE PRN PRN Reason: Consult order Prednisone (Prednisone 20 Mg Tablet) 40 mg PO DAILY [facility] Last Admin: 02/13/23 08:02 Dose: 40 mg Ranolazine (Ranolazine 500 Mg Tab.Er.12h) 500 mg PO BID [facility] Last Admin: 02/13/23 08:02 Dose: 500 mg Sodium Bicarbonate (Sodium Bicarbonate 650 Mg Tablet) 650 mg PO BID [facility] Last Admin: 02/13/23 08:03 Dose: 650 mg Sodium Chloride (0.9 % Sodium Chloride Flush 3 Ml Syringe) 3 ml IVFLUSH QSHIFT [facility] Last Admin: 02/13/23 17:17 Dose: 3 ml Home Medications Medication Instructions Recorded Confirmed Last Taken Type albuterol sulfate 90 mcg/actuation 2 puff inhalation Q4-6H PRN 12/28/22 02/10/23 Unknown History aerosol inhaler Shortness Of Breath Or Wheezing allopurinol 100 mg tablet 100 mg PO DAILY 12/28/22 02/10/23 01/23/23 09:00 History cetirizine 10 mg tablet (Zyrtec) 10 mg PO DAILY 12/28/22 02/10/23 01/23/23 09:00 History citalopram 20 mg tablet 20 mg PO DAILY 12/28/22 02/10/23 01/23/23 09:00 History famotidine 20 mg tablet 20 mg PO DAILY 12/28/22 02/10/23 01/23/23 09:00 History levothyroxine 100 mcg tablet 100 mcg PO DAILY@0600 12/28/22 02/10/23 01/23/23 06:00 History pantoprazole 40 mg tablet,delayed 40 mg PO DAILY@0630 12/28/22 02/10/23 01/23/23 06:30 History release sodium bicarbonate 325 mg tablet 650 mg PO BID 12/28/22 02/10/23 01/23/23 09:00 History guaifenesin 400 mg tablet 800 mg PO TID congestion 01/14/23 02/10/23 01/23/23 09:00 History benzonatate 100 mg capsule 100 mg PO TID PRN cough 01/23/23 02/10/23 Unknown History morphine 15 mg immediate release 15 mg PO Q4H PRN pain 01/23/23 02/10/23 Unknown History tablet atorvastatin 20 mg tablet 20 mg PO BEDTIME 01/24/23 02/10/23 01/22/23 History ezetimibe 10 mg tablet 10 mg PO DAILY 02/10/23 02/10/23 Unknown History fluticasone fur. 100 mcg-umeclid 1 ea inhalation DAILY 02/10/23 02/10/23 Unknown History 62.5 mcg-vilant 25 mcg inhalat.powder (Trelegy Ellipta) losartan 25 mg tablet 25 mg PO DAILY 02/10/23 02/10/23 Unknown History Physical Exam Vital Signs: Last Vital Signs Temp 98.0 F 02/13/23 15:34 Pulse 65 02/13/23 15:34 Resp 20 02/13/23 15:34 BP 104/53 L 02/13/23 15:34 Pulse Ox 93 02/13/23 15:34 O2 Del Method Nasal Cannula 02/13/23 15:34 O2 Flow Rate 5 02/13/23 15:34 Oxygen Flow Rate 4 02/10/23 03:07 BMI result Body Mass Index 39.0 Const Other: Appearance: Alert. Oriented X3. No acute distress. Eyes: Pupils equal, round and reactive to light. ENT: Pharynx normal. Neck: Normal inspection. Neck supple. No lymph nodes noted. No crepitus CVS: Normal heart rate and rhythm. Pulses normal. Normal S1 and S2 Respiratory: No respiratory distress. On 4 L, bibasilar crackles, no wheezing, no rales Abdomen: Soft and nontender. No rigidity. No distention. Skin: Skin warm and dry. Normal skin color. Normal skin turgor. Extremities: +2 pitting edema bilaterally, No Lacerations. No Rash Neuro: Oriented X 3. No motor deficit. No sensory deficit. Moving all extremities. No slurred speech. CN 2 through 12 grossly intact Psych: calm, cooperative, normal affect Results Lab Results 02/13/23 06:38 02/13/23 06:38 Lab results: Chemistry 02/11/23 02/12/23 02/13/23 05:55 06:17 06:38 Sodium 140 136 137 Potassium 3.8 D 4.7 D 4.6 Carbon Dioxide 22 23 21 L BUN 26 H 38 H 52 H Creatinine 2.34 H 2.80 H 3.63 H Calcium 8.5 7.7 L D 7.5 L Hematology 02/11/23 02/12/23 02/13/23 05:55 06:17 06:38 WBC 10.8 8.9 10.7 Hgb 9.2 L 7.5 L 8.4 L Plt Count 247 239 278 Assessment and Plan (1) Acute on chronic diastolic (congestive) heart failure: Status: Acute Plan Ms. Ludy Atkins is an 82-year-old female with past medical history of CKD stage IV/V, HTN, T2DM, Hyperuricemia, hypothyroidism, and COPD/Bronchitis who presented with dyspnea now being treated for ILD with prednisone and volume overload with diuresis. 1. DEVIN on CKD stage IV 2. Acute on chronic hypoxic respiratory failure due to acute on chronic diastoli c CHF and acute exacerbation of interstitial lung disease Plan: - diuresed well, will hold lasix - c/w prednisone 40 mg daily - acute need for iHD - may need diuresis reinitated tomorrow pending labs and I/O balance - fistula is great, preserve RUE Time Spent With Patient Time: Total time managing care of this patient today ____ minutes. Procedures Date of Service Date of Service: 02/13/23
[2023-02-13] MEDS: Atorvastatin Calcium 20 MG TABLET PO (21:25)
[2023-02-13] MEDS: Melatonin 3 MG TABLET 6 MG PO (22:31)
[2023-02-14] VITALS (7 sets, daily range): BP systolic 100–163; BP diastolic 55–67; PULSE 65–80; RESP 17–22; TEMP 36.1–36.8; O2SAT 91–97
[2023-02-14] MEDS: Acetaminophen 325 MG TABLET 650 MG PO (00:49)
[2023-02-14] MEDS: 0.9 % Sodium Chloride Flush 3 ML SYRINGE IVFLUSH ×4 (00:51→20:19)
[2023-02-14 05:41] LABS: Hematocrit 26.2 % (37.0-47.0); Hemoglobin 8.3 g/dl (12.0-16.0); Mean Corpuscular HGB Conc 31.7 g/dl (31.0-35.0); Mean Corpuscular Hemoglobin 31.1 pg (27.0-33.0); Mean Corpuscular Volume 98.1 fL (80.0-98.0); Mean Platelet Volume 10.6 fL (9.4-12.3); Platelet Count 259 X10*3/uL (160-400); Red Blood Count 2.67 X10*6/uL (4.20-5.50); White Blood Count 7.5 X10*3/uL (4.8-10.8)
[2023-02-14 05:54] LABS: Anion Gap 20 (12-20); Blood Urea Nitrogen 59 mg/dL (9-16); Calcium 7.3 mg/dL (8.4-10.2); Carbon Dioxide 21 mmol/L (22-29); Chloride 98 mmol/L (96-108); Estimated Glomerular Filt Rate 11; Glucose Fasting 114 mg/dL (60-99); Potassium 4.8 mmol/L (3.3-5.1); Sodium 134 mmol/L (135-145)
[2023-02-14] MEDS: Omeprazole 20 MG CAPSULE.DR PO (06:37)
[2023-02-14] MEDS: Famotidine 20 MG TABLET PO (06:37)
[2023-02-14] MEDS: Enoxaparin Sodium 30 MG/0.3 ML SYRINGE SUBCUT (06:38)
[2023-02-14] MEDS: Levothyroxine Sodium 100 MCG TABLET PO (06:38)
[2023-02-14] MEDS: Albuterol/Iprat 2.5/0.5MG 3 ML AMPUL.NEB INHALE ×3 (08:30→19:43)
[2023-02-14] MEDS: predniSONE 20 MG TABLET 40 MG PO (08:42)
[2023-02-14] MEDS: allopurinoL 100 MG TABLET PO (08:42)
[2023-02-14] MEDS: Gabapentin 100 MG CAPSULE PO (08:43)
[2023-02-14] MEDS: Metoprolol Tartrate 12.5 MG HALFTAB PO ×2 (08:43→20:18)
[2023-02-14] MEDS: Aspirin Enteric Coated 81 MG TABLET.DR PO (08:43)
[2023-02-14] MEDS: guaiFENesin LA 600 MG TAB.ER.12H PO ×2 (08:43→20:18)
[2023-02-14] MEDS: Ranolazine 500 MG TAB.ER.12H PO ×2 (08:43→20:18)
[2023-02-14] MEDS: Sodium Bicarbonate 650 MG TABLET PO ×2 (08:43→20:21)
--- NOTE | 2023-02-14 10:11 | P.PNIM_ITS ---
Subjective Subjective Date of Service: 02/14/23 Interval History: more alert today, oliguria Physical Exam Vital Signs: Vital Signs: Last Vital Signs Temp 98.3 F 02/14/23 08:00 Pulse 75 02/14/23 08:35 Resp 20 02/14/23 08:35 BP 138/61 02/14/23 08:00 Pulse Ox 93 02/14/23 08:00 O2 Del Method Nasal Cannula 02/14/23 08:00 O2 Flow Rate 5 02/14/23 08:00 Oxygen Flow Rate 4 02/10/23 03:07 BMI result Body Mass Index 39.0 Const: Other: Appearance: Alert. Oriented X3. No acute distress. Eyes: Pupils equal, round and reactive to light. ENT: Pharynx normal. Neck: Normal inspection. Neck supple. No lymph nodes noted. No crepitus CVS: Normal heart rate and rhythm. Pulses normal. Normal S1 and S2 Respiratory: No respiratory distress. On 4 L, bibasilar crackles, no wheezing, no rales Abdomen: Soft and nontender. No rigidity. No distention. Skin: Skin warm and dry. Normal skin color. Normal skin turgor. Extremities: +2 pitting edema bilaterally, No Lacerations. No Rash Neuro: Oriented X 3. No motor deficit. No sensory deficit. Moving all extremities. No slurred speech. CN 2 through 12 grossly intact Psych: calm, cooperative, normal affect Objective Data Active Medications Acetaminophen (Acetaminophen 325 Mg Tablet) 650 mg PO Q6H PRN PRN Reason: Pain, Mild (Pain Scale 1-3) Last Admin: 02/14/23 00:49 Dose: 650 mg Documented By: BESSY Albuterol/Ipratropium (Albuterol/Iprat 2.5/0.5mg 3 Ml Ampul.Neb) 3 ml INHALE RQ6H WHILE AWAKE [facility] Last Admin: 02/14/23 08:30 Dose: 3 ml Documented By: JAYME Allopurinol (Allopurinol 100 Mg Tablet) 100 mg PO DAILY [facility] Last Admin: 02/14/23 08:42 Dose: 100 mg Documented By: JAMES Aspirin (Aspirin Enteric Coated 81 Mg Tablet.) 81 mg PO DAILY [facility] Last Admin: 02/14/23 08:43 Dose: 81 mg Documented By: JAMES Atorvastatin Calcium (Atorvastatin Calcium 20 Mg Tablet) 20 mg PO BEDTIME [facility] Last Admin: 02/13/23 21:25 Dose: 20 mg Documented By: BESSY Benzonatate (Benzonatate 100 Mg Capsule) 200 mg PO TID PRN PRN Reason: Cough Last Admin: 02/11/23 20:15 Dose: 200 mg Documented By: SHAHANA Enoxaparin Sodium (Enoxaparin Sodium 30 Mg/0.3 Ml Syringe) 30 mg SUBCUT Q24H [facility] Last Admin: 02/14/23 06:38 Dose: 30 mg Documented By: BESSY Famotidine (Famotidine 20 Mg Tablet) 20 mg PO DAILY@0630 [facility] Last Admin: 02/14/23 06:37 Dose: 20 mg Documented By: BESSY Fluticasone/Umeclidinium/Vilanterol (Fluticasone/Umeclidinium/Vilanterol 100/62.5/25 Blst.W.Dev) 1 puff INHALE RDAILY [facility] Last Admin: 02/14/23 08:36 Dose: Not Given Documented By: JAYME Non-Admin Reason: Patient Refused Gabapentin (Gabapentin 100 Mg Capsule) 100 mg PO DAILY [facility] Last Admin: 02/14/23 08:43 Dose: 100 mg Documented By: JAMES Guaifenesin (Guaifenesin La 600 Mg Tab.Er.12h) 600 mg PO BID [facility] Last Admin: 02/14/23 08:43 Dose: 600 mg Documented By: JAMES Levothyroxine Sodium (Levothyroxine Sodium 100 Mcg Tablet) 100 mcg PO DAILY@0600 [facility] Last Admin: 02/14/23 06:38 Dose: 100 mcg Documented By: BESSY Melatonin (Melatonin 3 Mg Tablet) 6 mg PO BEDTIME PRN PRN Reason: Insomnia Last Admin: 02/13/23 22:31 Dose: 6 mg Documented By: BESSY Metoprolol Tartrate (Metoprolol Tartrate 12.5 Mg Halftab) 12.5 mg PO BID [facility]; Protocol Last Admin: 02/14/23 08:43 Dose: 12.5 mg Documented By: JAMES Morphine Sulfate (Morphine Sulfate Immed Release 15 Mg Tablet) 15 mg PO Q4H PRN PRN Reason: Pain, Severe (Pain Scale 7-10) Last Admin: 02/11/23 20:14 Dose: 15 mg Documented By: SHAHANA Omeprazole (Omeprazole 20 Mg Capsule.) 20 mg PO DAILY@0630 [facility] Last Admin: 02/14/23 06:37 Dose: 20 mg Documented By: BESSY Ondansetron HCl (Ondansetron Hcl 4 Mg/2 Ml Vial) 4 mg IVPUSH Q8H PRN PRN Reason: Nausea and Vomiting Pharmacy Consult (Consult Rx Perform Med Rec) 1 each MISCELLANE ONCE PRN PRN Reason: Consult order Prednisone (Prednisone 20 Mg Tablet) 40 mg PO DAILY [facility] Last Admin: 02/14/23 08:42 Dose: 40 mg Documented By: JAMES Ranolazine (Ranolazine 500 Mg Tab.Er.12h) 500 mg PO BID [facility] Last Admin: 02/14/23 08:43 Dose: 500 mg Documented By: JAMES Sodium Bicarbonate (Sodium Bicarbonate 650 Mg Tablet) 650 mg PO BID [facility] Last Admin: 02/14/23 08:43 Dose: 650 mg Documented By: JAMES Sodium Chloride (0.9 % Sodium Chloride Flush 3 Ml Syringe) 3 ml IVFLUSH QSHIFT [facility] Last Admin: 02/14/23 08:43 Dose: 3 ml Documented By: JAMES Labs 02/14/23 05:01 02/14/23 05:01 Labs: Laboratory Results - last 24 hr 02/14/23 02/14/23 05:01 05:01 MCV 98.1 H MCH 31.1 MCHC 31.7 RDW 16.0 Plt Count 259 MPV 10.6 Absolute Nucleated RBC 0.000 Nucleated RBC % (auto) 0.0 Anion Gap 20 Estim Creat Clear Calc 12.0 Estimated GFR 11 Fasting Glucose 114 H Calcium 7.3 L Assessment and Plan (1) Acute on chronic diastolic (congestive) heart failure: Status: Acute Plan 82F PMH? hypothyroidism, CKD IV, essential hypertension, restless leg syndrome, chronic hypoxemic respiratory failure due to interstitial lung disease, congestive heart failure with preserved ejection fraction, coronary artery disease, presented with sob Acute on chronic hypoxic respiratory failure due to acute on chronic diastolic CHF and acute exacerbation of interstitial lung disease diuresed well, will holding lasix prednisone 40 mg daily Wean oxygen for goal saturation of 91-94%, baseline o2 around 3L acute delerium vs acute metabolic encephalopathy due to Devin on CKD IV holding losartan, lasix nephro following Coronary disease Significant fixed ischemia on stress test with normal EF Continue aspirin, statin, beta-michael, [facility] following, catheterization deferred due to CKD 4, recent DEVIN Hypothyroid Synthroid Obesity Weight loss recommended DVT prophylaxis with Lovenox DNR/DNI reason for continued hospitalization:devin, weaning o2 Time Spent With Patient Time: Total time managing care of this patient today ____ minutes. Quality Stroke Does the patient have a stroke diagnosis?: No VTE Prior VTE?: No VTE Risk Level:: Medical - moderate - high VTE Device Contraindication: Treatment Not Indicated VTE Drug Contraindication: N/A - Med Ordered
[2023-02-14] MEDS: polyethylene glycoL 3350 17 GM POWD.PACK PO (12:22)
--- NOTE | 2023-02-14 14:52 | PM.PNNEP ---
Subjective Subjective Date of Service: 02/14/23 Interval history: oliguric Cr rising poor PO intake Physical Exam Vital Signs: Vital Signs: Last Vital Signs Temp 98.3 F 02/14/23 08:00 Pulse 75 02/14/23 08:35 Resp 20 02/14/23 08:35 BP 138/61 02/14/23 08:00 Pulse Ox 93 02/14/23 08:00 O2 Del Method Nasal Cannula 02/14/23 08:00 O2 Flow Rate 5 02/14/23 08:00 Oxygen Flow Rate 4 02/10/23 03:07 BMI result Body Mass Index 39.0 Const: Other: Appearance: Alert. Oriented X3. No acute distress. Eyes: Pupils equal, round and reactive to light. ENT: Pharynx normal. Neck: Normal inspection. Neck supple. No lymph nodes noted. No crepitus CVS: Normal heart rate and rhythm. Pulses normal. Normal S1 and S2 Respiratory: No respiratory distress. On 4 L, bibasilar crackles, no wheezing, no rales Abdomen: Soft and nontender. No rigidity. No distention. Skin: Skin warm and dry. Normal skin color. Normal skin turgor. Extremities: +2 pitting edema bilaterally, No Lacerations. No Rash Neuro: Oriented X 3. No motor deficit. No sensory deficit. Moving all extremities. No slurred speech. CN 2 through 12 grossly intact Psych: calm, cooperative, normal affect Objective Data Labs 02/14/23 05:01 02/14/23 05:01 Labs: Laboratory Results - last 24 hr 02/14/23 02/14/23 05:01 05:01 WBC 7.5 RBC 2.67 L Hgb 8.3 L Hct 26.2 L MCV 98.1 H MCH 31.1 MCHC 31.7 RDW 16.0 Plt Count 259 MPV 10.6 Absolute Nucleated RBC 0.000 Nucleated RBC % (auto) 0.0 Sodium 134 L Potassium 4.8 Chloride 98 Carbon Dioxide 21 L Anion Gap 20 BUN 59 H Creatinine 3.78 H Estim Creat Clear Calc 12.0 Estimated GFR 11 Fasting Glucose 114 H Calcium 7.3 L Microbiology Microbiology Results: Microbiology 02/10/23 03:47 Blood - Venous Blood Culture - Preliminary No growth after 48 hours. 02/10/23 03:42 Blood - Venous Blood Culture - Preliminary No growth after 48 hours. Procedures Date of Service Date of Service: 02/14/23 Assessment & Plan Assessment and plan (1) Acute on chronic diastolic (congestive) heart failure: Status: Acute Plan Ms. Ludy Atkins is an 82-year-old female with past medical history of CKD stage IV/V, HTN, T2DM, Hyperuricemia, hypothyroidism, and COPD/Bronchitis who presented with dyspnea now being treated for ILD with prednisone and volume overload with diuresis. 1. DEVIN on CKD stage IV 2. Acute on chronic hypoxic respiratory failure due to acute on chronic diastolic CHF and acute exacerbation of interstitial lung disease Plan: - start IV lasix 80mg BID - if oliguric to this regimen will need to start [employer] via RUE AVF - No acute need for iHD - fistula is great, preserve RUE Time Spent With Patient Time: Total time managing care of this patient today ____ minutes. Progress Note: Quality Stroke Does the patient have a stroke diagnosis?: No
[2023-02-14] MEDS: Furosemide 100 MG/10 ML VIAL 80 MG IVPUSH (17:47)
[2023-02-14] MEDS: Milk of Magnesia 30 ML ORAL.SUSP PO (20:18)
[2023-02-14] MEDS: Zolpidem Tartrate 5 MG TABLET PO (20:18)
[2023-02-14] MEDS: Atorvastatin Calcium 20 MG TABLET PO (20:18)
[2023-02-15] VITALS (9 sets, daily range): BP systolic 115–146; BP diastolic 53–65; PULSE 70–89; RESP 16–20; TEMP 36–36.8; O2SAT 90–98
[2023-02-15 05:47] LABS: Hematocrit 29.3 % (37.0-47.0); Hemoglobin 9.3 g/dl (12.0-16.0); Mean Corpuscular HGB Conc 31.7 g/dl (31.0-35.0); Mean Corpuscular Hemoglobin 31.1 pg (27.0-33.0); Mean Platelet Volume 10.4 fL (9.4-12.3); Platelet Count 261 X10*3/uL (160-400); Red Blood Count 2.99 X10*6/uL (4.20-5.50); Red Cell Distribution Width 16.1 % (11.0-16.0); White Blood Count 7.9 X10*3/uL (4.8-10.8)
[2023-02-15 06:07] LABS: Anion Gap 21 (12-20); Blood Urea Nitrogen 66 mg/dL (9-16); Calcium 7.3 mg/dL (8.4-10.2); Carbon Dioxide 24 mmol/L (22-29); Chloride 98 mmol/L (96-108); Creatinine Clr Calc Pharmacy 13.3; Estimated Glomerular Filt Rate 13; Glucose Fasting 102 mg/dL (60-99); Potassium 4.5 mmol/L (3.3-5.1); Sodium 138 mmol/L (135-145)
[2023-02-15] MEDS: Omeprazole 20 MG CAPSULE.DR PO (06:23)
[2023-02-15] MEDS: Famotidine 20 MG TABLET PO (06:23)
[2023-02-15] MEDS: Enoxaparin Sodium 30 MG/0.3 ML SYRINGE SUBCUT (06:23)
[2023-02-15] MEDS: Levothyroxine Sodium 100 MCG TABLET PO (06:23)
--- NOTE | 2023-02-15 08:00 | HO.PM.IMPN ---
Subjective Subjective Date of Service: 02/15/23 Interval History: oliguric, myoclonic jerks Physical Exam Vital Signs: Vital Signs: Last Vital Signs Temp 96.8 F 02/15/23 03:19 Pulse 72 02/15/23 03:19 Resp 20 02/15/23 03:19 BP 122/62 02/15/23 03:19 Pulse Ox 92 02/15/23 03:19 O2 Del Method Nasal Cannula 02/15/23 03:19 O2 Flow Rate 2 02/15/23 03:19 Oxygen Flow Rate 4 02/10/23 03:07 BMI result Body Mass Index 39.0 lethargic, myoclonic jerks, oriented times 3 Objective Data Active Medications Acetaminophen (Acetaminophen 325 Mg Tablet) 650 mg PO Q6H PRN PRN Reason: Pain, Mild (Pain Scale 1-3) Last Admin: 02/14/23 00:49 Dose: 650 mg Documented By: BESSY Albuterol/Ipratropium (Albuterol/Iprat 2.5/0.5mg 3 Ml Ampul.Neb) 3 ml INHALE RQ6H WHILE AWAKE [facility] Last Admin: 02/14/23 19:43 Dose: 3 ml Documented By: ALEXANDREA Allopurinol (Allopurinol 100 Mg Tablet) 100 mg PO DAILY [facility] Last Admin: 02/14/23 08:42 Dose: 100 mg Documented By: JAMES Aspirin (Aspirin Enteric Coated 81 Mg Tablet.) 81 mg PO DAILY [facility] Last Admin: 02/14/23 08:43 Dose: 81 mg Documented By: JAMES Atorvastatin Calcium (Atorvastatin Calcium 20 Mg Tablet) 20 mg PO BEDTIME [facility] Last Admin: 02/14/23 20:18 Dose: 20 mg Documented By: SULMA Benzonatate (Benzonatate 100 Mg Capsule) 200 mg PO TID PRN PRN Reason: Cough Last Admin: 02/11/23 20:15 Dose: 200 mg Documented By: SHAHANA Enoxaparin Sodium (Enoxaparin Sodium 30 Mg/0.3 Ml Syringe) 30 mg SUBCUT Q24H [facility] Last Admin: 02/15/23 06:23 Dose: 30 mg Documented By: JONATHON Famotidine (Famotidine 20 Mg Tablet) 20 mg PO DAILY@0630 [facility] Last Admin: 02/15/23 06:23 Dose: 20 mg Documented By: JONATHON Fluticasone/Umeclidinium/Vilanterol (Fluticasone/Umeclidinium/Vilanterol 100/62.5/25 Blst.W.Dev) 1 puff INHALE RDAILY [facility] Last Admin: 02/14/23 08:36 Dose: Not Given Documented By: JAYME Non-Admin Reason: Patient Refused Furosemide (Furosemide 100 Mg/10 Ml Vial) 80 mg IVPUSH BID@0900,1800 [facility]; Protocol Last Admin: 02/14/23 17:47 Dose: 80 mg Documented By: JAMES Gabapentin (Gabapentin 100 Mg Capsule) 100 mg PO DAILY [facility] Last Admin: 02/14/23 08:43 Dose: 100 mg Documented By: JAMES Guaifenesin (Guaifenesin La 600 Mg Tab.Er.12h) 600 mg PO BID [facility] Last Admin: 02/14/23 20:18 Dose: 600 mg Documented By: SULMA Levothyroxine Sodium (Levothyroxine Sodium 100 Mcg Tablet) 100 mcg PO DAILY@0600 [facility] Last Admin: 02/15/23 06:23 Dose: 100 mcg Documented By: JONATHON Melatonin (Melatonin 3 Mg Tablet) 6 mg PO BEDTIME PRN PRN Reason: Insomnia Last Admin: 02/13/23 22:31 Dose: 6 mg Documented By: BESSY Metoprolol Tartrate (Metoprolol Tartrate 12.5 Mg Halftab) 12.5 mg PO BID [facility]; Protocol Last Admin: 02/14/23 20:18 Dose: 12.5 mg Documented By: SULMA Morphine Sulfate (Morphine Sulfate Immed Release 15 Mg Tablet) 15 mg PO Q4H PRN PRN Reason: Pain, Severe (Pain Scale 7-10) Last Admin: 02/11/23 20:14 Dose: 15 mg Documented By: SHAHANA Omeprazole (Omeprazole 20 Mg Capsule.) 20 mg PO DAILY@0630 [facility] Last Admin: 02/15/23 06:23 Dose: 20 mg Documented By: JONATHON Ondansetron HCl (Ondansetron Hcl 4 Mg/2 Ml Vial) 4 mg IVPUSH Q8H PRN PRN Reason: Nausea and Vomiting Pharmacy Consult (Consult Rx Perform Med Rec) 1 each MISCELLANE ONCE PRN PRN Reason: Consult order Prednisone (Prednisone 20 Mg Tablet) 40 mg PO DAILY [facility] Last Admin: 02/14/23 08:42 Dose: 40 mg Documented By: JAMES Ranolazine (Ranolazine 500 Mg Tab.Er.12h) 500 mg PO BID [facility] Last Admin: 02/14/23 20:18 Dose: 500 mg Documented By: SULMA Sodium Bicarbonate (Sodium Bicarbonate 650 Mg Tablet) 650 mg PO BID [facility] Last Admin: 02/14/23 20:21 Dose: 650 mg Documented By: SULMA Sodium Chloride (0.9 % Sodium Chloride Flush 3 Ml Syringe) 3 ml IVFLUSH QSHIFT [facility] Last Admin: 02/14/23 20:19 Dose: 3 ml Documented By: SULMA Labs 02/15/23 05:32 02/15/23 05:32 Labs: Laboratory Results - last 24 hr 02/15/23 02/15/23 05:32 05:32 MCV 98.0 MCH 31.1 MCHC 31.7 RDW 16.1 H Plt Count 261 MPV 10.4 Absolute Nucleated RBC 0.000 Nucleated RBC % (auto) 0.0 Anion Gap 21 H Estim Creat Clear Calc 13.3 Estimated GFR 13 Fasting Glucose 102 H Calcium 7.3 L Microbiology Microbiology Results: Microbiology 02/10/23 03:47 Blood Culture - Final Blood - Venous No growth after 5 days. 02/10/23 03:42 Blood Culture - Final Blood - Venous No growth after 5 days. Assessment and Plan (1) Acute on chronic diastolic (congestive) heart failure: Status: Acute Plan 82F PMH? hypothyroidism, CKD IV, essential hypertension, restless leg syndrome, chronic hypoxemic respiratory failure due to interstitial lung disease, congestive heart failure with preserved ejection fraction, coronary artery disease, presented with sob Acute on chronic hypoxic respiratory failure due to acute on chronic diastolic CHF and acute exacerbation of interstitial lung disease lasix 80mg iv bid prednisone 40 mg daily Wean oxygen for goal saturation of 91-94%, baseline o2 around 3L acute delerium vs acute metabolic encephalopathy due to Devin on CKD IV holding losartan nephro following if still oliguirc plan for HD Coronary disease Significant ischemia on stress test with normal EF Continue aspirin, statin, beta-michael, [facility] following, catheterization deferred due to CKD 4, recent DEVIN Hypothyroid Synthroid Obesity Weight loss recommended DVT prophylaxis with Lovenox DNR/DNI reason for continued hospitalization:devin, weaning o2 Time Spent With Patient Time: Total time managing care of this patient today ____ minutes. Quality Stroke Does the patient have a stroke diagnosis?: No VTE Prior VTE?: No VTE Risk Level:: Medical - moderate - high VTE Device Contraindication: Treatment Not Indicated VTE Drug Contraindication: N/A - Med Ordered
[2023-02-15] MEDS: Albuterol/Iprat 2.5/0.5MG 3 ML AMPUL.NEB INHALE ×3 (08:31→21:25)
--- NOTE | 2023-02-15 08:34 | PC.RT ---
Pt states will not take mdi, says pulmonary MD told her it does not help. RN aware.
[2023-02-15] MEDS: guaiFENesin LA 600 MG TAB.ER.12H PO ×2 (09:16→20:09)
[2023-02-15] MEDS: 0.9 % Sodium Chloride Flush 3 ML SYRINGE IVFLUSH ×3 (09:16→20:10)
[2023-02-15] MEDS: Sodium Bicarbonate 650 MG TABLET PO ×2 (09:16→20:09)
[2023-02-15] MEDS: Furosemide 100 MG/10 ML VIAL 80 MG IVPUSH ×2 (09:16→17:48)
[2023-02-15] MEDS: predniSONE 20 MG TABLET 40 MG PO (09:16)
[2023-02-15] MEDS: Metoprolol Tartrate 12.5 MG HALFTAB PO ×2 (09:17→20:09)
[2023-02-15] MEDS: allopurinoL 100 MG TABLET PO (09:17)
[2023-02-15] MEDS: Ranolazine 500 MG TAB.ER.12H PO ×2 (09:17→20:09)
[2023-02-15] MEDS: Aspirin Enteric Coated 81 MG TABLET.DR PO (09:17)
[2023-02-15] MEDS: Gabapentin 100 MG CAPSULE PO (09:17)
[2023-02-15] MEDS: bisacodyL 10 MG SUPP.RECT PR (10:55)
--- NOTE | 2023-02-15 12:26 | PM.PNNEP ---
Subjective Subjective Date of Service: 02/15/23 Interval history: oliguric, myoclonic jerks discussed with primary team and cardiology will start iHD tomorrow for volume management oliguric to lasix IV Physical Exam Vital Signs: Vital Signs: Last Vital Signs Temp 98.3 F 02/15/23 08:00 Pulse 76 02/15/23 08:31 Resp 18 02/15/23 08:31 BP 146/65 H 02/15/23 08:00 Pulse Ox 94 02/15/23 08:00 O2 Del Method Nasal Cannula 02/15/23 08:00 O2 Flow Rate 6 02/15/23 08:00 Oxygen Flow Rate 4 02/10/23 03:07 BMI result Body Mass Index 39.0 Const: Other: Appearance: Alert. Oriented X3. No acute distress. Eyes: Pupils equal, round and reactive to light. ENT: Pharynx normal. Neck: Normal inspection. Neck supple. No lymph nodes noted. No crepitus CVS: Normal heart rate and rhythm. Pulses normal. Normal S1 and S2 Respiratory: No respiratory distress. On 4 L, bibasilar crackles, no wheezing, no rales Abdomen: Soft and nontender. No rigidity. No distention. Skin: Skin warm and dry. Normal skin color. Normal skin turgor. Extremities: +2 pitting edema bilaterally, No Lacerations. No Rash Neuro: Oriented X 3. No motor deficit. No sensory deficit. Moving all extremities. No slurred speech. CN 2 through 12 grossly intact Psych: calm, cooperative, normal affect Objective Data Labs 02/15/23 05:32 02/15/23 05:32 Labs: Laboratory Results - last 24 hr 02/15/23 02/15/23 05:32 05:32 WBC 7.9 RBC 2.99 L Hgb 9.3 L Hct 29.3 L MCV 98.0 MCH 31.1 MCHC 31.7 RDW 16.1 H Plt Count 261 MPV 10.4 Absolute Nucleated RBC 0.000 Nucleated RBC % (auto) 0.0 Sodium 138 Potassium 4.5 Chloride 98 Carbon Dioxide 24 Anion Gap 21 H BUN 66 H Creatinine 3.40 H Estim Creat Clear Calc 13.3 Estimated GFR 13 Fasting Glucose 102 H Calcium 7.3 L Microbiology Microbiology Results: Microbiology 02/10/23 03:47 Blood - Venous Blood Culture - Final No growth after 5 days. 02/10/23 03:42 Blood - Venous Blood Culture - Final No growth after 5 days. Procedures Date of Service Date of Service: 02/15/23 Assessment & Plan Assessment and plan (1) Acute on chronic diastolic (congestive) heart failure: Status: Acute Plan Ms. Ludy Atkins is an 82-year-old female with past medical history of CKD stage IV/V, HTN, T2DM, Hyperuricemia, hypothyroidism, and COPD/Bronchitis who presented with dyspnea now being treated for ILD with prednisone and volume overload with diuresis. 1. DEVIN on CKD stage IV 2. Acute on chronic hypoxic respiratory failure due to acute on chronic diastolic CHF and acute exacerbation of interstitial lung disease Plan: - c/w IV lasix 80mg BID for now - will need to start iHD tomorrow AM - can covert to PO bumex 2mg daily once iHD started - fistula is great, protect RUE - pt referred to [facility] Time Spent With Patient Time: Total time managing care of this patient today ____ minutes. Progress Note: Quality Stroke Does the patient have a stroke diagnosis?: No
--- NOTE | 2023-02-15 12:37 | P.PNCA_ITS ---
Subjective Subjective Date of Service: 02/15/23 Interval history: Patient states that she is feeling better since the time of admission. Do recent chest pains. Shortness of breath is improved. Review of Systems Review of Systems Yes all other systems are reviewed and are negative Constitutional: Reports as per HPI and Reports no additional constitutional complaints Eyes: Reports as per HPI and Denies no additional eye complaints Denies system reviewed and no additional complaints, except as documented and Reports as per HPI Cardiovascular: Reports as per HPI, Reports no additional cardiovascular complaints, Denies acrocyanosis, Denies cool extremities, Denies chest pain, Denies leg edema, Denies lightheadedness, Denies palpitations and Denies dyspnea Respiratory: Reports as per HPI, Denies no additional respiratory complaints and Denies dyspnea Gastrointestinal: Reports as per HPI and Denies no additional gastrointestinal complaints Musculoskeletal: Reports no additional musculoskeletal complaints and Reports as per HPI Skin/Breast: Reports system reviewed and no additional complaints, except as docu Reports system reviewed and no additional complaints, except as documented and Reports as per HPI Psychiatric: Reports no additional psychiatric complaints and Reports as per HPI Endocrine: Reports no additional endocrine complaints, Reports as per HPI and Denies palpitations Hematologic/Lymphatic: Reports no additional hematologic/lymphatic complaints and Reports as per HPI Allergic/Immunologic: Reports no additional allergic/immunologic complaints and Reports as per HPI Physical Exam Vital Signs: Last Vital Signs Temp 98.3 F 02/15/23 08:00 Pulse 76 02/15/23 08:31 Resp 18 02/15/23 08:31 BP 146/65 H 02/15/23 08:00 Pulse Ox 94 02/15/23 08:00 O2 Del Method Nasal Cannula 02/15/23 08:00 O2 Flow Rate 6 02/15/23 08:00 Oxygen Flow Rate 4 02/10/23 03:07 BMI result Body Mass Index 39.0 Const General: comfortable and no acute distress Orientation/consciousness: patient oriented x3 HEENT Other: Unremarkable Head: Yes normal to inspection Neck Neck: Yes normal visual inspection Chest Chest palpation & inspection: normal inspection of the chest Resp Auscultation: crackles and diminished lung sounds Cardio Palpation: normal PMI Heart sounds: S1 normal heart sound present, S2 normal heart sound present, no gallops, Murmur heart sound present systolic II/ and at the right sternal trisha rder and no rubs GI Palpation (GI): Soft to palpation Back/Spine/Pelvis Other: unremarkable Skin General skin exam: no rashes or lesions noted Neuro General: patient oriented x3 Extrem General: Yes normal to inspection Psych Mental Status: mental status grossly normal Objective Labs and Meds 02/15/23 05:32 02/15/23 05:32 Lab results: Laboratory Results - last 24 hr 02/15/23 02/15/23 05:32 05:32 WBC 7.9 RBC 2.99 L Hgb 9.3 L Hct 29.3 L MCV 98.0 MCH 31.1 MCHC 31.7 RDW 16.1 H Plt Count 261 MPV 10.4 Absolute Nucleated RBC 0.000 Nucleated RBC % (auto) 0.0 Sodium 138 Potassium 4.5 Chloride 98 Carbon Dioxide 24 Anion Gap 21 H BUN 66 H Creatinine 3.40 H Estim Creat Clear Calc 13.3 Estimated GFR 13 Fasting Glucose 102 H Calcium 7.3 L Progress Note: A&P Assessment and plan (1) Acute on chronic diastolic (congestive) heart failure: Status: Acute (2) Respiratory failure with hypoxia: Status: Acute Plan Cardiac studies reviewed. In the last echocardiogram, LVEF 65-70%. Mild to moderate diastolic dysfunction. Mild aortic valve calcification. No evidence of pulmonary hypertension. High sensitivity troponin 57.1. They have been much higher before as much as 7000. Cardiac BNP is higher than before. Currently 2075. Previously 518. Last year, completely normal at less than 100. Chest x-ray with chronic interstitial lung disease. Patchy opacity in the right upper lobe, possible infiltrate. Myocardial perfusion imaging study shows moderate to severe intensity apical ischemia. Overall, suspected be some combination of cardiac, respiratory as well as renal etiology for symptoms. She has already been on empiric diuretics and it seems that she is not too responsive and hence per Renal note, planning hemodialysis tomorrow. With regard to the positive stress test, she does not really have any active symptoms. In the past, discussed with Interventional Cardiology, but she was felt to be too high risk for cardiac catheterization and hence not performed. Patient is aware of this. Family also aware. To be followed as an outpatient. Dicsussed with . Time Spent With Patient Time: Total time managing care of this patient today ____ minutes. Progress Note: Quality Stroke Does the patient have a stroke diagnosis?: No Procedures Date of Service Date of Service: 02/15/23
[2023-02-15] MEDS: Atorvastatin Calcium 20 MG TABLET PO (20:09)
[2023-02-15] MEDS: Acetaminophen 325 MG TABLET 650 MG PO (23:53)
[2023-02-16] VITALS (7 sets, daily range): BP systolic 136–151; BP diastolic 50–67; PULSE 69–80; RESP 14–18; TEMP 36–36.4; O2SAT 93–98
[2023-02-16] MEDS: Omeprazole 20 MG CAPSULE.DR PO (05:24)
[2023-02-16] MEDS: Famotidine 20 MG TABLET PO (05:24)
[2023-02-16] MEDS: Levothyroxine Sodium 100 MCG TABLET PO (05:24)
[2023-02-16 05:57] LABS: Hematocrit 27.1 % (37.0-47.0); Hemoglobin 8.4 g/dl (12.0-16.0); Mean Corpuscular Hemoglobin 30.4 pg (27.0-33.0); Mean Corpuscular Volume 98.2 fL (80.0-98.0); Mean Platelet Volume 10.7 fL (9.4-12.3); Platelet Count 269 X10*3/uL (160-400); Red Blood Count 2.76 X10*6/uL (4.20-5.50); Red Cell Distribution Width 15.8 % (11.0-16.0); White Blood Count 7.1 X10*3/uL (4.8-10.8)
[2023-02-16 06:06] LABS: Anion Gap 19 (12-20); Blood Urea Nitrogen 68 mg/dL (9-16); Carbon Dioxide 26 mmol/L (22-29); Chloride 98 mmol/L (96-108); Creatinine Clr Calc Pharmacy 15.3; Estimated Glomerular Filt Rate 15; Glucose Fasting 112 mg/dL (60-99); Potassium 4.4 mmol/L (3.3-5.1); Sodium 139 mmol/L (135-145)
[2023-02-16] MEDS: Albuterol/Iprat 2.5/0.5MG 3 ML AMPUL.NEB INHALE ×2 (08:04→19:52)
[2023-02-16] MEDS: Furosemide 100 MG/10 ML VIAL 80 MG IVPUSH ×2 (08:17→17:08)
[2023-02-16] MEDS: guaiFENesin LA 600 MG TAB.ER.12H PO ×2 (08:17→20:12)
[2023-02-16] MEDS: Ranolazine 500 MG TAB.ER.12H PO ×2 (08:17→20:12)
[2023-02-16] MEDS: predniSONE 20 MG TABLET 40 MG PO (08:17)
[2023-02-16] MEDS: Aspirin Enteric Coated 81 MG TABLET.DR PO (08:18)
[2023-02-16] MEDS: Metoprolol Tartrate 12.5 MG HALFTAB PO ×2 (08:18→20:12)
[2023-02-16] MEDS: Gabapentin 100 MG CAPSULE PO (08:18)
[2023-02-16] MEDS: Sodium Bicarbonate 650 MG TABLET PO ×2 (08:18→20:13)
[2023-02-16] MEDS: allopurinoL 100 MG TABLET PO (08:18)
[2023-02-16] MEDS: 0.9 % Sodium Chloride Flush 3 ML SYRINGE IVFLUSH ×2 (08:18→20:13)
--- NOTE | 2023-02-16 08:42 | P.PNIM_ITS ---
Subjective Subjective Date of Service: 02/16/23 Interval History: put out 2L with iv lasix, myoclonic jerks Physical Exam Vital Signs: Vital Signs: Last Vital Signs Temp 96.8 F 02/16/23 07:40 Pulse 69 02/16/23 08:06 Resp 16 02/16/23 08:06 BP 151/67 H 02/16/23 07:40 Pulse Ox 98 02/16/23 07:43 O2 Del Method Nasal Cannula 02/16/23 07:43 O2 Flow Rate 5 02/16/23 07:43 Oxygen Flow Rate 4 02/10/23 03:07 BMI result Body Mass Index 39.0 Objective Data Active Medications Acetaminophen (Acetaminophen 325 Mg Tablet) 650 mg PO Q6H PRN PRN Reason: Pain, Mild (Pain Scale 1-3) Last Admin: 02/15/23 23:53 Dose: 650 mg Documented By: NIDA Albuterol/Ipratropium (Albuterol/Iprat 2.5/0.5mg 3 Ml Ampul.Neb) 3 ml INHALE RQ 6H WHILE AWAKE [facility] Last Admin: 02/16/23 08:04 Dose: 3 ml Documented By: ALEX Allopurinol (Allopurinol 100 Mg Tablet) 100 mg PO DAILY [facility] Last Admin: 02/16/23 08:18 Dose: 100 mg Documented By: CARROL Aspirin (Aspirin Enteric Coated 81 Mg Tablet.) 81 mg PO DAILY [facility] Last Admin: 02/16/23 08:18 Dose: 81 mg Documented By: CARROL Atorvastatin Calcium (Atorvastatin Calcium 20 Mg Tablet) 20 mg PO BEDTIME [facility] Last Admin: 02/15/23 20:09 Dose: 20 mg Documented By: NIDA Benzonatate (Benzonatate 100 Mg Capsule) 200 mg PO TID PRN PRN Reason: Cough Last Admin: 02/11/23 20:15 Dose: 200 mg Documented By: SHAHANA Enoxaparin Sodium (Enoxaparin Sodium 30 Mg/0.3 Ml Syringe) 30 mg SUBCUT Q24H [facility] Last Admin: 02/16/23 06:21 Dose: Not Given Documented By: NIDA Non-Admin Reason: dialysis Famotidine (Famotidine 20 Mg Tablet) 20 mg PO DAILY@0630 [facility] Last Admin: 08/07/23 05:24 Dose: 20 mg Documented By: NIDA Fluticasone/Umeclidinium/Vilanterol (Fluticasone/Umeclidinium/Vilanterol 100/62.5/25 Blst.W.Dev) 1 puff INHALE RDAILY [facility] Last Admin: 02/16/23 08:04 Dose: Not Given Documented By: ALEX Non-Admin Reason: Patient Refused Furosemide (Furosemide 100 Mg/10 Ml Vial) 80 mg IVPUSH BID@0900,1800 [facility]; Protocol Last Admin: 02/16/23 08:17 Dose: 80 mg Documented By: CARROL Gabapentin (Gabapentin 100 Mg Capsule) 100 mg PO DAILY [facility] Last Admin: 02/16/23 08:18 Dose: 100 mg Documented By: CARROL Guaifenesin (Guaifenesin La 600 Mg Tab.Er.12h) 600 mg PO BID [facility] Last Admin: 02/16/23 08:17 Dose: 600 mg Documented By: CARROL Levothyroxine Sodium (Levothyroxine Sodium 100 Mcg Tablet) 100 mcg PO DAILY @0600 [facility] Last Admin: 02/16/23 05:24 Dose: 100 mcg Documented By: NIDA Melatonin (Melatonin 3 Mg Tablet) 6 mg PO BEDTIME PRN PRN Reason: Insomnia Last Admin: 02/13/23 22:31 Dose: 6 mg Documented By: BESSY Metoprolol Tartrate (Metoprolol Tartrate 12.5 Mg Halftab) 12.5 mg PO BID [facility]; Protocol Last Admin: 02/16/23 08:18 Dose: 12.5 mg Documented By: CARROL Omeprazole (Omeprazole 20 Mg Capsule.) 20 mg PO DAILY@0630 [facility] Last Admin: 02/16/23 05:24 Dose: 20 mg Documented By: NIDA Ondansetron HCl (Ondansetron Hcl 4 Mg/2 Ml Vial) 4 mg IVPUSH Q8H PRN PRN Reason: Nausea and Vomiting Pharmacy Consult (Consult Rx Perform Med Rec) 1 each MISCELLANE ONCE PRN PRN Reason: Consult order Prednisone (Prednisone 20 Mg Tablet) 40 mg PO DAILY [facility] Last Admin: 02/16/23 08:17 Dose: 40 mg Documented By: CARROL Ranolazine (Ranolazine 500 Mg Tab.Er.12h) 500 mg PO BID [facility] Last Admin: 02/16/23 08:17 Dose: 500 mg Documented By: CARROL Sodium Bicarbonate (Sodium Bicarbonate 650 Mg Tablet) 650 mg PO BID [facility] Last Admin: 02/16/23 08:18 Dose: 650 mg Documented By: CARROL Sodium Chloride (0.9 % Sodium Chloride Flush 3 Ml Syringe) 3 ml IVFLUSH QSHIFT [facility] Last Admin: 02/16/23 08:18 Dose: 3 ml Documented By: CARROL Labs 02/16/23 05:19 02/16/23 05:19 Labs: Laboratory Results - last 24 hr 02/16/23 02/16/23 05:19 05:19 MCV 98.2 H MCH 30.4 MCHC 31.0 RDW 15.8 Plt Count 269 MPV 10.7 Absolute Nucleated RBC 0.000 Nucleated RBC % (auto) 0.0 Anion Gap 19 Estim Creat Clear Calc 15.3 Estimated GFR 15 Fasting Glucose 112 H Calcium 8.0 L D Microbiology Microbiology Results: Microbiology 02/10/23 03:47 Blood Culture - Final Blood - Venous No growth after 5 days. 02/10/23 03:42 Blood Culture - Final Blood - Venous No growth after 5 days. Assessment and Plan (1) Acute on chronic diastolic (congestive) heart failure: Status: Acute Plan 82F PMH? hypothyroidism, CKD IV, essential hypertension, restless leg syndrome, chronic hypoxemic respiratory failure due to interstitial lung disease, congestive heart failure with preserved ejection fraction, coronary artery disease, presented with sob Acute on chronic hypoxic respiratory failure due to acute on chronic diastolic CHF and acute exacerbation of interstitial lung disease lasix 80mg iv bid prednisone 40 mg daily Wean oxygen for goal saturation of 91-94%, baseline o2 around 3L acute delerium vs acute metabolic encephalopathy due to Charlee on CKD IV holding losartan nephro following ? reinitiating HD Coronary disease Significant ischemia on stress test with normal EF Continue aspirin, statin, beta-michael, [facility] following, catheterization deferred due to CKD 4, recent CHARLEE Hypothyroid Synthroid Obesity Weight loss recommended DVT prophylaxis with Lovenox DNR/DNI reason for continued hospitalization:charlee, weaning o2 Time Spent With Patient Time: Total time managing care of this patient today ____ minutes. Quality Stroke Does the patient have a stroke diagnosis?: No VTE Prior VTE?: No VTE Risk Level:: Medical - moderate - high VTE Device Contraindication: Treatment Not Indicated VTE Drug Contraindication: N/A - Med Ordered
--- NOTE | 2023-02-16 10:19 | PM.PNNEP ---
Subjective Subjective Date of Service: 02/17/23 Interval history: Events noted Physical Exam Vital Signs: Vital Signs: Last Vital Signs Temp 96.8 F 02/16/23 07:40 Pulse 69 02/16/23 08:06 Resp 16 02/16/23 08:06 BP 151/67 H 02/16/23 07:40 Pulse Ox 98 02/16/23 07:43 O2 Del Method Nasal Cannula 02/16/23 07:43 O2 Flow Rate 5 02/16/23 07:43 Oxygen Flow Rate 4 02/10/23 03:07 BMI result Body Mass Index 39.0 Const: Other: Appearance: Alert. Oriented X3. No acute distress. Eyes: Pupils equal, round and reactive to light. ENT: Pharynx normal. Neck: Normal inspection. Neck supple. No lymph nodes noted. No crepitus CVS: Normal heart rate and rhythm. Pulses normal. Normal S1 and S2 Respiratory: No respiratory distress. On 4 L, bibasilar crackles, no wheezing, no rales Abdomen: Soft and nontender. No rigidity. No distention. Skin: Skin warm and dry. Normal skin color. Normal skin turgor. Extremities: +2 pitting edema bilaterally, No Lacerations. No Rash Neuro: Oriented X 3. No motor deficit. No sensory deficit. Moving all extremities. No slurred speech. CN 2 through 12 grossly intact Psych: calm, cooperative, normal affect Objective Data Labs 02/16/23 05:19 02/16/23 05:19 Labs: Laboratory Results - last 24 hr 02/16/23 02/16/23 05:19 05:19 WBC 7.1 RBC 2.76 L Hgb 8.4 L Hct 27.1 L MCV 98.2 H MCH 30.4 MCHC 31.0 RDW 15.8 Plt Count 269 MPV 10.7 Absolute Nucleated RBC 0.000 Nucleated RBC % (auto) 0.0 Sodium 139 Potassium 4.4 Chloride 98 Carbon Dioxide 26 Anion Gap 19 BUN 68 H Creatinine 2.97 H Estim Creat Clear Calc 15.3 Estimated GFR 15 Fasting Glucose 112 H Calcium 8.0 L D Microbiology Microbiology Results: Microbiology 02/10/23 03:47 Blood - Venous Blood Culture - Final No growth after 5 days. 02/10/23 03:42 Blood - Venous Blood Culture - Final No growth after 5 days. Procedures Date of Service Date of Service: 02/17/23 Assessment & Plan Assessment and plan (1) Acute on chronic diastolic (congestive) heart failure: Status: Acute Plan 82-year-old woman with CKD stage IV/V, HTN, T2DM, Hyperuricemia, hypothyroidism, and COPD/Bronchitis who presented with dyspnea now being treated for ILD with prednisone and volume overload with diuresis. 1. DEVIN on CKD stage IV 2. Acute on chronic hypoxic respiratory failure due to acute on chronic diastolic CHF and acute exacerbation of interstitial lung disease Plan: - c/w IV lasix 80mg BID for now - start iHD today - can covert to PO bumex 2mg daily once iHD started - fistula is great, protect RUE - pt referred to [facility] Time Spent With Patient Time: Total time managing care of this patient today ____ minutes. Progress Note: Quality Stroke Does the patient have a stroke diagnosis?: No
[2023-02-16] MEDS: Acetaminophen 325 MG TABLET 650 MG PO ×2 (13:53→22:53)
--- NOTE | 2023-02-16 15:44 | MHC.CM.PN ---
PT NOT YET MEDICALLY CLEARED FOR DC DCP TBD PENDING TREATMENT NEEDS/PT [facility] IS OFFERING A BED FOR PTS RETURN VS HOME WITH SERVICES
[2023-02-16] MEDS: Atorvastatin Calcium 20 MG TABLET PO (20:13)
[2023-02-16] MEDS: traZODone HCL 50 MG TABLET PO (22:53)
[2023-02-17] VITALS (12 sets, daily range): BP systolic 90–150; BP diastolic 40–83; PULSE 68–82; RESP 16–20; TEMP 36.2–36.6; O2SAT 92–98
[2023-02-17] MEDS: Omeprazole 20 MG CAPSULE.DR PO (05:28)
[2023-02-17] MEDS: Famotidine 20 MG TABLET PO (05:28)
[2023-02-17] MEDS: Levothyroxine Sodium 100 MCG TABLET PO (05:28)
[2023-02-17 06:24] LABS: Anion Gap 15 (12-20); Blood Urea Nitrogen 51 mg/dL (9-16); Calcium 8.3 mg/dL (8.4-10.2); Carbon Dioxide 24 mmol/L (22-29); Chloride 102 mmol/L (96-108); Creatinine Clr Calc Pharmacy 19.5; Estimated Glomerular Filt Rate 20; Glucose Fasting 109 mg/dL (60-99); Potassium 4.3 mmol/L (3.3-5.1); Sodium 137 mmol/L (135-145)
[2023-02-17 06:31] LABS: Hemoglobin 9.5 g/dl (12.0-16.0); Mean Corpuscular HGB Conc 30.6 g/dl (31.0-35.0); Mean Corpuscular Hemoglobin 30.9 pg (27.0-33.0); Mean Platelet Volume 10.8 fL (9.4-12.3); Platelet Count 258 X10*3/uL (160-400); Red Blood Count 3.07 X10*6/uL (4.20-5.50); Red Cell Distribution Width 15.7 % (11.0-16.0); White Blood Count 8.6 X10*3/uL (4.8-10.8)
--- NOTE | 2023-02-17 08:54 | P.PNIM_ITS ---
Subjective Subjective Date of Service: 02/17/23 Interval History: unchanged Physical Exam Vital Signs: Vital Signs: Last Vital Signs Temp 97.7 F 02/17/23 07:32 Pulse 79 02/17/23 07:32 Resp 18 02/17/23 07:32 BP 143/83 H 02/17/23 07:32 Pulse Ox 96 02/17/23 07:32 O2 Del Method Nasal Cannula 02/17/23 07:32 O2 Flow Rate 4 02/17/23 07:32 Oxygen Flow Rate 4 02/10/23 03:07 BMI result Body Mass Index 39.0 Const: Other: Appearance: Alert. Oriented X3. No acute distress. Eyes: Pupils equal, round and reactive to light. ENT: Pharynx normal. Neck: Normal inspection. Neck supple. No lymph nodes noted. No crepitus CVS: Normal heart rate and rhythm. Pulses normal. Normal S1 and S2 Respiratory: No respiratory distress. On 4 L, bibasilar crackles, no wheezing, no rales Abdomen: Soft and nontender. No rigidity. No distention. Skin: Skin warm and dry. Normal skin color. Normal skin turgor. Extremities: +2 pitting edema bilaterally, No Lacerations. No Rash Neuro: Oriented X 3. No motor deficit. No sensory deficit. Moving all extremities. No slurred speech. CN 2 through 12 grossly intact Psych: calm, cooperative, normal affect Objective Data Active Medications Acetaminophen (Acetaminophen 325 Mg Tablet) 650 mg PO Q6H PRN PRN Reason: Pain, Mild (Pain Scale 1-3) Last Admin: 02/16/23 22:53 Dose: 650 mg Documented By: NIDA Albuterol/Ipratropium (Albuterol/Iprat 2.5/0.5mg 3 Ml Ampul.Neb) 3 ml INHALE RQ6H WHILE AWAKE [facility] Last Admin: 02/16/23 19:52 Dose: 3 ml Documented By: WENDIE Allopurinol (Allopurinol 100 Mg Tablet) 100 mg PO DAILY [facility] Last Admin: 02/16/23 08:18 Dose: 100 mg Documented By: CARROL Aspirin (Aspirin Enteric Coated 81 Mg Tablet.) 81 mg PO DAILY [facility] Last Admin: 02/16/23 08:18 Dose: 81 mg Documented By: CARROL Atorvastatin Calcium (Atorvastatin Calcium 20 Mg Tablet) 20 mg PO BEDTIME [facility] Last Admin: 02/16/23 20:13 Dose: 20 mg Documented By: NIDA Benzonatate (Benzonatate 100 Mg Capsule) 200 mg PO TID PRN PRN Reason: Cough Last Admin: 02/11/23 20:15 Dose: 200 mg Documented By: SHAHANA Enoxaparin Sodium (Enoxaparin Sodium 30 Mg/0.3 Ml Syringe) 30 mg SUBCUT Q24H [facility] Last Admin: 02/17/23 06:43 Dose: Not Given Documented By: CARROL Non-Admin Reason: Patient Refused Famotidine (Famotidine 20 Mg Tablet) 20 mg PO DAILY@0630 [facility] Last Admin: 02/17/23 05:28 Dose: 20 mg Documented By: NIDA Fluticasone/Umeclidinium/Vilanterol (Fluticasone/Umeclidinium/Vilanterol 100/62.5/25 Blst.W.Dev) 1 puff INHALE RDAILY [facility] Last Admin: 02/16/23 08:04 Dose: Not Given Documented By: ALEX Non-Admin Reason: Patient Refused Gabapentin (Gabapentin 100 Mg Capsule) 100 mg PO DAILY [facility] Last Admin: 02/16/23 08:18 Dose: 100 mg Documented By: CARROL Guaifenesin (Guaifenesin La 600 Mg Tab.Er.12h) 600 mg PO BID [facility] Last Admin: 02/16/23 20:12 Dose: 600 mg Documented By: NIDA Levothyroxine Sodium (Levothyroxine Sodium 100 Mcg Tablet) 100 mcg PO DAILY@0600 [facility] Last Admin: 02/17/23 05:28 Dose: 100 mcg Documented By: NIDA Melatonin (Melatonin 3 Mg Tablet) 6 mg PO BEDTIME PRN PRN Reason: Insomnia Last Admin: 02/13/23 22:31 Dose: 6 mg Documented By: BESSY Metoprolol Tartrate (Metoprolol Tartrate 12.5 Mg Halftab) 12.5 mg PO BID [facility]; Protocol Last Admin: 02/16/23 20:12 Dose: 12.5 mg Documented By: NIDA Omeprazole (Omeprazole 20 Mg Capsule.) 20 mg PO DAILY@0630 [facility] Last Admin: 02/17/23 05:28 Dose: 20 mg Documented By: NIDA Ondansetron HCl (Ondansetron Hcl 4 Mg/2 Ml Vial) 4 mg IVPUSH Q8H PRN PRN Reason: Nausea and Vomiting Pharmacy Consult (Consult Rx Perform Med Rec) 1 each MISCELLANE ONCE PRN PRN Reason: Consult order Ranolazine (Ranolazine 500 Mg Tab.Er.12h) 500 mg PO BID [facility] Last Admin: 02/16/23 20:12 Dose: 500 mg Documented By: NIDA Sodium Bicarbonate (Sodium Bicarbonate 650 Mg Tablet) 650 mg PO BID [facility] Last Admin: 02/16/23 20:13 Dose: 650 mg Documented By: NIDA Sodium Chloride (0.9 % Sodium Chloride Flush 3 Ml Syringe) 3 ml IVFLUSH QSHIFT [facility] Last Admin: 02/16/23 20:13 Dose: 3 ml Documented By: NIDA Labs 02/17/23 05:53 02/17/23 05:53 Labs: Laboratory Results - last 24 hr 02/17/23 02/17/23 05:53 05:53 MCV 101.0 H MCH 30.9 MCHC 30.6 L RDW 15.7 Plt Count 258 MPV 10.8 Absolute Nucleated RBC 0.000 Nucleated RBC % (auto) 0.0 Anion Gap 15 Estim Creat Clear Calc 19.5 Estimated GFR 20 Fasting Glucose 109 H Calcium 8.3 L Assessment and Plan (1) Acute on chronic diastolic (congestive) heart failure: Status: Acute Plan 82F PMH? hypothyroidism, CKD IV, essential hypertension, restless leg syndrome, chronic hypoxemic respiratory failure due to interstitial lung disease, congestive heart failure with preserved ejection fraction, coronary artery disease, presented with sob Acute on chronic hypoxic respiratory failure due to acute on chronic diastolic CHF and acute exacerbation of interstitial lung disease will change back to po lasix completed prednisone course Wean oxygen for goal saturation of 91-94%, baseline o2 around 3L acute delerium vs acute metabolic encephalopathy due to Larry on CKD IV holding losartan nephro following mental status back to baseline restarted on HD Coronary disease Significant ischemia on stress test with normal EF Continue aspirin, statin, beta-michael, [place] Cardiology following, catheterization deferred due to CKD 4, recent LARRY Hypothyroid Synthroid Obesity Weight loss recommended DVT prophylaxis with Lovenox DNR/DNI reason for continued hospitalization:HD initiation, weaning o2 Time Spent With Patient Time: Total time managing care of this patient today ____ minutes. Quality Stroke Does the patient have a stroke diagnosis?: No VTE Prior VTE?: No VTE Risk Level:: Medical - moderate - high VTE Device Contraindication: Treatment Not Indicated VTE Drug Contraindication: N/A - Med Ordered
[2023-02-17] MEDS: Albuterol/Iprat 2.5/0.5MG 3 ML AMPUL.NEB INHALE ×2 (08:55→15:59)
--- NOTE | 2023-02-17 10:17 | P.F2F_ITS ---
Service Date Service Date: 02/17/23 Encounter Date of encounter: 02/17/23 Reasons for Services Signs and symptoms assessed: sob on ambulation, decreased mobility Reason for longterm: medication management, medication treatment and teach disease management Homebound: Leaving the home is medically contraindicated at this time without the asist of a device and/or another person due th the listed conditions above and below. Reason homebound: unsteady gait / fall risk Certification: Based on the above findings, I certify that this patient is confined to the home and needs intermittent longterm care, physical therapy and/or speech therapy, or continues to need occupational therapy. The patient is under my care, and I have initiated the establishment of the plan of care. The patient will be followed by a physician who will periodically review the plan of care. Time Spent With Patient Time: Total time managing care of this patient today ____ minutes.
--- NOTE | 2023-02-17 10:17 | PM.DS ---
DS: Providers Provider Date of Service: 02/17/23 Date of admission: 02/10/23 06:32 Primary care physician: Christina Paiz MD Consults: 02/10/23 06:32 Consult to Cardiology Routine Consulting Provider: [facility] Cardiovascular Services Reason for consultation: CHF Has provider been notified: Yes 02/13/23 07:51 Consult to Nephrology Routine Consulting Provider: Julio C Francis Reason for consultation: Jarad on ckd DS: Diagnosis Discharge Diagnosis (1) Acute on chronic diastolic (congestive) heart failure: Status: Acute DS: Summary Hospital Course Hospital Course: from initial hpi: 82-year-old female with pertinent history of hypothyroidism, essential hypertension, restless leg syndrome, chronic hypoxemic respiratory failure due to interstitial lung disease, congestive heart failure with preserved ejection fraction, coronary artery disease presents to the emergency department for evaluation of dyspnea.? Patient was found to be dyspneic and hypoxemic at her usual 3 L supplemental oxygen and she was sent to the ER for further evaluation.? She admits orthopnea and bilateral lower extremity leg swelling.? She denies fever, chills, cough.? No chest discomfort, palpitations, abdominal pain, changes in urinary or bowel habits. In the emergency department, patient was found to be hypoxemic and BNP found to be elevated hospital course: Patient was admitted for acute on chronic hypoxic respiratory failure due to acute on chronic diastolic CHF and acute exacerbation of interstitial lung disease. She was treated with IV diuresis and steroids. She was eventually weaned down back to her baseline oxygen of 3 L. course was complicated by acute delirium versus acute metabolic encephalopathy due to acute kidney injury in the setting of CKD 4. Her losartan was held. She was seen by Nephrology and started on hemodialysis. Mental status returned to baseline. For coronary disease with recent positive stress test. She was continued on aspirin, statin, beta-michael, Ranexa and she will follow up outpatient with Cardiology. For hypothyroidism she was continue on Synthroid. For obesity weight loss recommended. Patient not interested in returning to rehab and will be discharged home with services. Time Spent with Patient Time attestation: Total time managing care of this patient today ____ minutes. Discharge coordination time: Greater than 30 minutes Quality: Safe Use of Opioids Does Pt have an Active Cancer Diagnosis on the Problem List?: No Quality: Stroke Does the patient have a stroke diagnosis?: No Physical Exam Vital Signs: Vital Signs: Last Vital Signs Temp 97.7 F 02/17/23 07:32 Pulse 69 02/17/23 08:59 Resp 18 02/17/23 08:59 BP 143/83 H 02/17/23 07:32 Pulse Ox 96 02/17/23 07:32 O2 Del Method Nasal Cannula 02/17/23 07:32 O2 Flow Rate 4 02/17/23 07:32 Oxygen Flow Rate 4 02/10/23 03:07 BMI result Body Mass Index 39.0 Const: Other: Appearance: Alert. Oriented X3. No acute distress. Eyes: Pupils equal, round and reactive to light. ENT: Pharynx normal. Neck: Normal inspection. Neck supple. No lymph nodes noted. No crepitus CVS: Normal heart rate and rhythm. Pulses normal. Normal S1 and S2 Respiratory: No respiratory distress. On 4 L, bibasilar crackles, no wheezing, no rales Abdomen: Soft and nontender. No rigidity. No distention. Skin: Skin warm and dry. Normal skin color. Normal skin turgor. Extremities: +2 pitting edema bilaterally, No Lacerations. No Rash Neuro: Oriented X 3. No motor deficit. No sensory deficit. Moving all extremities. No slurred speech. CN 2 through 12 grossly intact Psych: calm, cooperative, normal affect DS: Data Data Completed and Pending Completed studies during hospitalization [Text1]: Procedures Assistance with Respiratory Ventilation, Less than 24 Consecutive Hours, Continuous Positive Airway Pressure (12/28/22) Performance of Urinary Filtration, Intermittent, Less than 6 Hours Per Day (01/26/23) Labs on day of discharge: Laboratory Results - last 24 hr 02/17/23 02/17/23 05:53 05:53 WBC 8.6 RBC 3.07 L Hgb 9.5 L Hct 31.0 L MCV 101.0 H MCH 30.9 MCHC 30.6 L RDW 15.7 Plt Count 258 MPV 10.8 Absolute Nucleated RBC 0.000 Nucleated RBC % (auto) 0.0 Sodium 137 Potassium 4.3 Chloride 102 Carbon Dioxide 24 Anion Gap 15 BUN 51 H Creatinine 2.33 H Estim Creat Clear Calc 19.5 Estimated GFR 20 Fasting Glucose 109 H Calcium 8.3 L Discharge Plan Discharge Anticipated Discharge Date/Time: 02/17/23 10:13 Patient Disposition: Home Health Service Discharge Diagnosis: charlee Referrals: Christina Paiz MD [Primary Care Provider] - 1 Week Discharge Medications: New furosemide 40 mg Tablet 40 mg PO BID@0900,1800 Qty: 60 0RF Protocol: Hold for SBP< HOLD for SBP < : 90 Continued sodium bicarbonate 325 mg tablet 650 mg PO BID allopurinol 100 mg tablet 100 mg PO DAILY levothyroxine 100 mcg tablet 100 mcg PO DAILY@0600 citalopram 20 mg tablet 20 mg PO DAILY famotidine 20 mg tablet 20 mg PO DAILY pantoprazole 40 mg tablet,delayed release (DR/EC) 40 mg PO DAILY@0630 albuterol sulfate 90 mcg/actuation HFA aerosol inhaler 2 puff inhalation Q4-6H PRN (Reason: Shortness Of Breath Or Wheezing) cetirizine [Zyrtec] 10 mg Tablet 10 mg PO DAILY aspirin 81 mg Tablet,Delayed Release (Dr/Ec) 81 mg PO DAILY Qty: 90 0RF metoprolol tartrate 25 mg tablet 12.5 mg PO BID Qty: 180 0RF guaifenesin 400 mg tablet 800 mg PO TID benzonatate 100 mg capsule 100 mg PO TID PRN (Reason: cough) morphine 15 mg tablet 15 mg PO Q4H PRN (Reason: pain) atorvastatin 20 mg tablet 20 mg PO BEDTIME gabapentin 100 mg capsule 100 mg PO DAILY Qty: 30 0RF losartan 25 mg tablet 25 mg PO DAILY ezetimibe 10 mg tablet 10 mg PO DAILY Trelegy Ellipta 100-62.5-25 mcg blister with device 1 ea inhalation DAILY ranolazine 500 mg tablet extended release 12 hr 500 mg PO BID 90 Days Qty: 180 3RF nitroglycerin 0.4 mg tablet, sublingual 0.4 mg sublingual Q5M PRN (Reason: chest pain) Qty: 30 5RF Rx Instructions: do not exceed 3 doses per episode Discharge Orders: Discharge Order (Routine); Ordered 02/17/23 Ordered By: Evgeny Scott Diet: Advance to usual diet Activity on Discharge: As tolerated Stand Alone Forms: Patient Portal Discharge page Care Plan Goals: recovery Health Concerns: esrd Plan of Treatment: lasix 40mg bid, follow up with nephro Assessment: see above
--- NOTE | 2023-02-17 10:22 | W.PM.DNNEP ---
Subjective Subjective This patient was seen during dialysis. Interval history: Events noted Physical Exam Vital Signs: Vital Signs: Last Vital Signs Temp 97.7 F 02/17/23 07:32 Pulse 69 02/17/23 08:59 Resp 18 02/17/23 08:59 BP 143/83 H 02/17/23 07:32 Pulse Ox 96 02/17/23 07:32 O2 Del Method Nasal Cannula 02/17/23 07:32 O2 Flow Rate 4 02/17/23 07:32 Oxygen Flow Rate 4 02/10/23 03:07 BMI result Body Mass Index 39.0 Const: Other: Appearance: Alert. Oriented X3. No acute distress. Eyes: Pupils equal, round and reactive to light. ENT: Pharynx normal. Neck: Normal inspection. Neck supple. No lymph nodes noted. No crepitus CVS: Normal heart rate and rhythm. Pulses normal. Normal S1 and S2 Respiratory: No respiratory distress. On 4 L, bibasilar crackles, no wheezing, no rales Abdomen: Soft and nontender. No rigidity. No distention. Skin: Skin warm and dry. Normal skin color. Normal skin turgor. Extremities: +2 pitting edema bilaterally, No Lacerations. No Rash Neuro: Oriented X 3. No motor deficit. No sensory deficit. Moving all extremities. No slurred speech. CN 2 through 12 grossly intact Psych: calm, cooperative, normal affect Assessment & Plan Assessment and plan (1) Acute on chronic diastolic (congestive) heart failure: Status: Acute Plan 82-year-old woman with CKD stage IV/V, HTN, T2DM, Hyperuricemia, hypothyroidism, and COPD/Bronchitis who presented with dyspnea now being treated for ILD with prednisone and volume overload with diuresis. 1. DEVIN on CKD stage IV 2. Acute on chronic hypoxic respiratory failure due to acute on chronic diastolic CHF and acute exacerbation of interstitial lung disease Plan: - started iHD 02/16 - pt referred to [facility] DC planning Time Spent With Patient Time: Total time managing care of this patient today ____ minutes. Procedures Date of Service Date of Service: 02/18/23
[2023-02-17] MEDS: allopurinoL 100 MG TABLET PO (11:49)
[2023-02-17] MEDS: guaiFENesin LA 600 MG TAB.ER.12H PO ×2 (11:49→20:09)
[2023-02-17] MEDS: Sodium Bicarbonate 650 MG TABLET PO ×2 (11:49→20:09)
[2023-02-17] MEDS: Ranolazine 500 MG TAB.ER.12H PO ×2 (11:49→20:09)
[2023-02-17] MEDS: Gabapentin 100 MG CAPSULE PO (11:49)
[2023-02-17] MEDS: 0.9 % Sodium Chloride Flush 3 ML SYRINGE IVFLUSH ×2 (15:58→20:16)
[2023-02-17] MEDS: Atorvastatin Calcium 20 MG TABLET PO (20:09)
[2023-02-17] MEDS: Metoprolol Tartrate 12.5 MG HALFTAB PO (20:09)
[2023-02-18 03:16] VITALS: BP 120/58; PULSE 75; RESP 17; TEMP 36.4; O2SAT 97
[2023-02-18] MEDS: Famotidine 20 MG TABLET PO (06:01)
[2023-02-18] MEDS: Omeprazole 20 MG CAPSULE.DR PO (06:01)
[2023-02-18] MEDS: Enoxaparin Sodium 30 MG/0.3 ML SYRINGE SUBCUT (06:01)
[2023-02-18] MEDS: Levothyroxine Sodium 100 MCG TABLET PO (06:01)
[2023-02-18 06:40] LABS: Hematocrit 38.1 % (37.0-47.0); Hemoglobin 12.1 g/dl (12.0-16.0); Mean Corpuscular HGB Conc 31.8 g/dl (31.0-35.0); Mean Corpuscular Hemoglobin 30.9 pg (27.0-33.0); Mean Corpuscular Volume 97.4 fL (80.0-98.0); Mean Platelet Volume 10.2 fL (9.4-12.3); Platelet Count 341 X10*3/uL (160-400); Red Blood Count 3.91 X10*6/uL (4.20-5.50); Red Cell Distribution Width 15.9 % (11.0-16.0)
[2023-02-18 07:07] LABS: Anion Gap 20 (12-20); Blood Urea Nitrogen 50 mg/dL (9-16); Calcium 9.2 mg/dL (8.4-10.2); Carbon Dioxide 19 mmol/L (22-29); Chloride 102 mmol/L (96-108); Creatinine Clr Calc Pharmacy 11.9; Estimated Glomerular Filt Rate 11; Glucose Fasting 121 mg/dL (60-99); Potassium 4.8 mmol/L (3.3-5.1); Sodium 136 mmol/L (135-145)
[2023-02-18 07:44] VITALS: BP 124/57; PULSE 77; RESP 18; TEMP 36.1; O2SAT 97
[2023-02-18 07:48] VITALS: BP 124/57; PULSE 77; RESP 18; TEMP 36.1; O2SAT 97
[2023-02-18] MEDS: Metoprolol Tartrate 12.5 MG HALFTAB PO (08:24)
[2023-02-18] MEDS: 0.9 % Sodium Chloride Flush 3 ML SYRINGE IVFLUSH (08:24)
[2023-02-18] MEDS: Furosemide 40 MG TABLET PO (08:24)
[2023-02-18] MEDS: guaiFENesin LA 600 MG TAB.ER.12H PO (08:24)
[2023-02-18] MEDS: Sodium Bicarbonate 650 MG TABLET PO (08:24)
[2023-02-18] MEDS: Ranolazine 500 MG TAB.ER.12H PO (08:24)
[2023-02-18] MEDS: Gabapentin 100 MG CAPSULE PO (08:24)
[2023-02-18] MEDS: allopurinoL 100 MG TABLET PO (08:24)
[2023-02-18] MEDS: Aspirin Enteric Coated 81 MG TABLET.DR PO (08:24)
[2023-02-18 09:59] VITALS: BP 124/57; PULSE 77; O2SAT 97
--- NOTE | 2023-02-18 10:27 | P.DS_ITS ---
DS: Providers Provider Date of Service: 02/18/23 Date of admission: 02/10/23 06:32 Primary care physician: Christina Paiz MD Consults: 02/10/23 06:32 Consult to Cardiology Routine Consulting Provider: [facility] Cardiovascular Services Reason for consultation: CHF Has provider been notified: Yes 02/13/23 07:51 Consult to Nephrology Routine Consulting Provider: Julio C Francis Reason for consultation: Jarad on ckd DS: Diagnosis Discharge Diagnosis (1) Acute on chronic diastolic (congestive) heart failure: Status: Acute (2) CHF exacerbation: Status: Acute (3) Hallucination, visual: Status: Acute (4) Delirium: Status: Acute (5) Acute kidney injury superimposed on CKD: Status: Acute (6) ESRD needing dialysis: Status: Acute DS: Summary Hospital Course Hospital Course: from initial hpi: 82-year-old female with pertinent history of hypothyroidism, essential hypertension, restless leg syndrome, chronic hypoxemic respiratory failure due to interstitial lung disease, congestive heart failure with preserved ejection fraction, coronary artery disease presents to the emergency department for evaluation of dyspnea.? Patient was found to be dyspneic and hypoxemic at her usual 3 L supplemental oxygen and she was sent to the ER for further evaluation.? She admits orthopnea and bilateral lower extremity leg swelling.? She denies fever, chills, cough.? No chest discomfort, palpitations, abdominal pain, changes in urinary or bowel habits. In the emergency department, patient was found to be hypoxemic and BNP found to be .elevated hospital course: Patient was admitted for acute on chronic hypoxic respiratory failure due to acute on chronic diastolic CHF and acute exacerbation of interstitial lung disease. She was treated with IV diuresis and steroids. She was eventually weaned down back to her baseline oxygen of 3 L. course was complicated by acute delirium versus acute metabolic encephalopathy due to acute kidney injury in the setting of CKD 4. Her losartan was held. She was seen by Nephrology and started on hemodialysis with good tolerance. Mental status returned to baseline. recommended lasix on discharge. For coronary disease with recent positive stress test. She was continued on aspirin, statin, beta-michael, Ranexa and she will follow up outpatient with Cardiology. For hypothyroidism she was continue on Synthroid. For obesity weight loss recommended. Patient not interested in returning to rehab and will be discharged home with services as she did fairly ok with PT. Time Spent with Patient Time attestation: Total time managing care of this patient today ____ minutes. Discharge coordination time: Greater than 30 minutes Quality: Safe Use of Opioids Does Pt have an Active Cancer Diagnosis on the Problem List?: No Quality: Stroke Does the patient have a stroke diagnosis?: No Physical Exam Vital Signs: Vital Signs: Last Vital Signs Temp 97.0 F 02/18/23 07:48 Pulse 77 02/18/23 09:59 Resp 18 02/18/23 07:48 BP 124/57 L 02/18/23 09:59 Pulse Ox 97 02/18/23 09:59 O2 Del Method Nasal Cannula 02/18/23 07:48 O2 Flow Rate 4 02/18/23 07:48 Oxygen Flow Rate 4 02/10/23 03:07 BMI result Body Mass Index 39.0 Const: Other: Appearance: Alert. Oriented X3. No acute distress. Eyes: Pupils equal, round and reactive to light. ENT: Pharynx normal. Neck: Normal inspection. Neck supple. No lymph nodes noted. No crepitus CVS: Normal heart rate and rhythm. Pulses normal. Normal S1 and S2 Respiratory: No respiratory distress. On 4 L, bibasilar crackles, no wheezing, no rales Abdomen: Soft and nontender. No rigidity. No distention. Skin: Skin warm and dry. Normal skin color. Normal skin turgor. Extremities: +2 pitting edema bilaterally, No Lacerations. No Rash Neuro: Oriented X 3. No motor deficit. No sensory deficit. Moving all extremities. No slurred speech. CN 2 through 12 grossly intact Psych: calm, cooperative, normal affect DS: Data Data Completed and Pending Completed studies during hospitalization [Text1]: Procedures Assistance with Respiratory Ventilation, Less than 24 Consecutive Hours, Continuous Positive Airway Pressure (12/28/22) Performance of Urinary Filtration, Intermittent, Less than 6 Hours Per Day (01/26/23) Labs on day of discharge: Laboratory Results - last 24 hr 02/18/23 02/18/23 05:59 05:59 WBC 13.0 H RBC 3.91 L D Hgb 12.1 D Hct 38.1 D MCV 97.4 MCH 30.9 MCHC 31.8 RDW 15.9 Plt Count 341 D MPV 10.2 Absolute Nucleated RBC 0.000 Nucleated RBC % (auto) 0.0 Sodium 136 Potassium 4.8 Chloride 102 Carbon Dioxide 19 L Anion Gap 20 BUN 50 H Creatinine 3.81 H Estim Creat Clear Calc 11.9 Estimated GFR 11 Fasting Glucose 121 H Calcium 9.2 D Imaging Chest x-ray: Radiologist's impression: ITS Impressions Chest X-Ray 02/10/23 03:46 IMPRESSION: Patchy opacity in the right upper lobe laterally may represent an infiltrate. Left basilar streaky opacity favors atelectasis. Chronic interstitial lung disease. Chest X-Ray 02/10/23 21:15 IMPRESSION: 1. Worsening pulmonary aeration with increased patchy/hazy airspace opacities in the lateral right lung as well as increased diffuse interstitial coarsening. 2. Asymmetric prominence of the right hilar region that could be associated with underlying lymphadenopathy versus mass. Recommend further evaluation with a CT chest with IV contrast. Discharge Plan Discharge Anticipated Discharge Date/Time: 02/17/23 10:13 Patient Disposition: Home Health Service Discharge Diagnosis: charlee Referrals: Christina Paiz MD [Primary Care Provider] - 1 Week Discharge Medications: New furosemide 40 mg Tablet 40 mg PO BID@0900,1800 Qty: 60 0RF Protocol: Hold for SBP< HOLD for SBP < : 90 Continued sodium bicarbonate 325 mg tablet 650 mg PO BID allopurinol 100 mg tablet 100 mg PO DAILY levothyroxine 100 mcg tablet 100 mcg PO DAILY@0600 citalopram 20 mg tablet 20 mg PO DAILY famotidine 20 mg tablet 20 mg PO DAILY pantoprazole 40 mg tablet,delayed release (DR/EC) 40 mg PO DAILY@0630 albuterol sulfate 90 mcg/actuation HFA aerosol inhaler 2 puff inhalation Q4-6H PRN (Reason: Shortness Of Breath Or Wheezing) cetirizine [Zyrtec] 10 mg Tablet 10 mg PO DAILY aspirin 81 mg Tablet,Delayed Release (Dr/Ec) 81 mg PO DAILY Qty: 90 0RF metoprolol tartrate 25 mg tablet 12.5 mg PO BID Qty: 180 0RF guaifenesin 400 mg tablet 800 mg PO TID benzonatate 100 mg capsule 100 mg PO TID PRN (Reason: cough) morphine 15 mg tablet 15 mg PO Q4H PRN (Reason: pain) atorvastatin 20 mg tablet 20 mg PO BEDTIME gabapentin 100 mg capsule 100 mg PO DAILY Qty: 30 0RF losartan 25 mg tablet 25 mg PO DAILY ezetimibe 10 mg tablet 10 mg PO DAILY Trelegy Ellipta 100-62.5-25 mcg blister with device 1 ea inhalation DAILY ranolazine 500 mg tablet extended release 12 hr 500 mg PO BID 90 Days Qty: 180 3RF nitroglycerin 0.4 mg tablet, sublingual 0.4 mg sublingual Q5M PRN (Reason: chest pain) Qty: 30 5RF Rx Instructions: do not exceed 3 doses per episode Discharge Orders: Discharge Order (Routine); Ordered 02/18/23 Ordered By: Chet Cunningham Diet: Advance to usual diet Activity on Discharge: As tolerated Stand Alone Forms: Patient Portal Discharge page Care Plan Goals: recovery Health Concerns: esrd started dialysis; to follow as scheduled Plan of Treatment: lasix 40mg bid, follow up with nephro Assessment: see above
--- NOTE | 2023-02-18 10:27 | PM.PNNEP ---
Subjective Subjective Date of Service: 02/18/23 Interval history: Events noted Waiting to go home Physical Exam Vital Signs: Vital Signs: Last Vital Signs Temp 97.0 F 02/18/23 07:48 Pulse 77 02/18/23 09:59 Resp 18 02/18/23 07:48 BP 124/57 L 02/18/23 09:59 Pulse Ox 97 02/18/23 09:59 O2 Del Method Nasal Cannula 02/18/23 07:48 O2 Flow Rate 4 02/18/23 07:48 Oxygen Flow Rate 4 02/10/23 03:07 BMI result Body Mass Index 39.0 Const: Other: Appearance: Alert. Oriented X3. No acute distress. Eyes: Pupils equal, round and reactive to light. ENT: Pharynx normal. Neck: Normal inspection. Neck supple. No lymph nodes noted. No crepitus CVS: Normal heart rate and rhythm. Pulses normal. Normal S1 and S2 Respiratory: No respiratory distress. On 4 L, bibasilar crackles, no wheezing, no rales Abdomen: Soft and nontender. No rigidity. No distention. Skin: Skin warm and dry. Normal skin color. Normal skin turgor. Extremities: +2 pitting edema bilaterally, No Lacerations. No Rash Neuro: Oriented X 3. No motor deficit. No sensory deficit. Moving all extremities. No slurred speech. CN 2 through 12 grossly intact Psych: calm, cooperative, normal affect Objective Data Labs 02/18/23 05:59 02/18/23 05:59 Labs: Laboratory Results - last 24 hr 02/18/23 02/18/23 05:59 05:59 WBC 13.0 H RBC 3.91 L D Hgb 12.1 D Hct 38.1 D MCV 97.4 MCH 30.9 MCHC 31.8 RDW 15.9 Plt Count 341 D MPV 10.2 Absolute Nucleated RBC 0.000 Nucleated RBC % (auto) 0.0 Sodium 136 Potassium 4.8 Chloride 102 Carbon Dioxide 19 L Anion Gap 20 BUN 50 H Creatinine 3.81 H Estim Creat Clear Calc 11.9 Estimated GFR 11 Fasting Glucose 121 H Calcium 9.2 D Microbiology Microbiology Results: Microbiology 02/10/23 03:47 Blood - Venous Blood Culture - Final No growth after 5 days. 02/10/23 03:42 Blood - Venous Blood Culture - Final No growth after 5 days. Procedures Date of Service Date of Service: 02/18/23 Assessment & Plan Assessment and plan (1) Acute on chronic diastolic (congestive) heart failure: Status: Acute Plan 82-year-old woman with CKD stage IV/V, HTN, T2DM, Hyperuricemia, hypothyroidism, and COPD/Bronchitis who presented with dyspnea now being treated for ILD with prednisone and volume overload with diuresis. 1. DEVIN on CKD stage IV 2. Acute on chronic hypoxic respiratory failure due to acute on chronic diastolic CHF and acute exacerbation of interstitial lung disease Plan: - started iHD 02/16 - [facility] [place] planning Time Spent With Patient Time: Total time managing care of this patient today ____ minutes. Progress Note: Quality Stroke Does the patient have a stroke diagnosis?: No
--- NOTE | 2023-02-18 13:35 | W.MHC.F2F ---
Service Date Service Date: 02/18/23 Encounter Date of encounter: 02/18/23 Reasons for Services Signs and symptoms assessed: physical deconditioning Reason for physical therapy: home safety and mobility and therapeutic exercises Homebound: Leaving the home is medically contraindicated at this time without the asist of a device and/or another person due th the listed conditions above and below. Reason homebound: unsteady gait / fall risk Certification: Based on the above findings, I certify that this patient is confined to the home and needs intermittent [facility] care, physical therapy and/or speech therapy, or continues to need occupational therapy. The patient is under my care, and I have initiated the establishment of the plan of care. The patient will be followed by a physician who will periodically review the plan of care. Time Spent With Patient Time: Total time managing care of this patient today ____ minutes.
--- NOTE | 2023-02-18 14:01 | MHC.CM.PN ---
IMM 02/17/23 Discharged to home today via bls. [facility] will start services. A face 2 face document and dc info has been sent to the agency. Patients dtr is aware transport booked 4pm [employer]. [facility] is [facility] up [facility]. Patient will transport via BLS r/t sob weakness + deconditioning r/t hospitalization.
== END 2023-02-18 16:08 | disposition home health service (06) | DRG 291 ==
LOC: HO.ED 05:48 → HO.EDOVER 06:36 → HO.S3 16:49
PROVIDERS: Internal Medicine; Admitting Provider Student in an Organized Health Care Education/Training Program; Emergency Provider Emergency Medicine; PCP Internal Medicine; Visit Provider Student in an Organized Health Care Education/Training Program
DX: I13.0 Hypertensive heart and chronic kidney disease with heart failure and stage 1 through stage 4 chronic kidney disease, or unspecified chronic kidney disease (principal); G93.41 Metabolic encephalopathy; I50.33 Acute on chronic diastolic (congestive) heart failure; J96.21 Acute and chronic respiratory failure with hypoxia; F05 Delirium due to known physiological condition; N18.4 Chronic kidney disease, stage 4 (severe); N17.9 Acute kidney failure, unspecified; Z68.41 Body mass index [BMI] 40.0-44.9, adult; J84.9 Interstitial pulmonary disease, unspecified; Z66 Do not resuscitate; D53.9 Nutritional anemia, unspecified; E66.01 Morbid (severe) obesity due to excess calories; J44.9 Chronic obstructive pulmonary disease, unspecified; I25.10 Atherosclerotic heart disease of native coronary artery without angina pectoris; E03.9 Hypothyroidism, unspecified; E11.22 Type 2 diabetes mellitus with diabetic chronic kidney disease; G25.3 Myoclonus; Z99.81 Dependence on supplemental oxygen; Z87.891 Personal history of nicotine dependence; Z79.890 Hormone replacement therapy; Z79.899 Other long term (current) drug therapy
CPT/HCPCS: 36415; 36600; 71045; 80048; 80076; 82803; 83605; 83735; 83880; 84484; 85025; 85027; 85610; 87040; 90999; 93005; 94640; 97116; 97162; 99285; J0696; J1650; J1940

== ENCOUNTER → 2023-02-10 06:32 | Outpatient (BNV) | payer MEDICARE, SELFPAY | PROVIDERS: Admitting Provider Student in an Organized Health Care Education/Training Program; Emergency Provider Emergency Medicine; PCP Internal Medicine; Visit Provider Student in an Organized Health Care Education/Training Program | DX: I50.33 Acute on chronic diastolic (congestive) heart failure (principal); N17.9 Acute kidney failure, unspecified; N18.6 End stage renal disease; Z99.2 Dependence on renal dialysis; R44.1 Visual hallucinations; R41.0 Disorientation, unspecified | CPT/HCPCS: 99222; 99232; 99233; 99239; 99499; G0180 ==

== ENCOUNTER → 2023-02-10 06:32 | Outpatient (BNV) | payer MEDICARE, SELFPAY | PROVIDERS: Admitting Provider Student in an Organized Health Care Education/Training Program; Emergency Provider Emergency Medicine; PCP Internal Medicine; Visit Provider Internal Medicine | DX: I50.33 Acute on chronic diastolic (congestive) heart failure (principal); J96.21 Acute and chronic respiratory failure with hypoxia | CPT/HCPCS: 93010; 99223; 99233 ==

== ENCOUNTER 2023-03-06 10:15 | Emergency (ER) | payer MEDICARE, SELFPAY ==
--- NOTE | ~2023-03-06 | CT_ITS ---
EXAMINATION: CT HEAD WITHOUT CONTRAST CT CERVICAL SPINE WITHOUT CONTRAST CLINICAL INFORMATION: Fall. Head strike. Headache and neck pain. COMPARISON: No relevant prior imaging. TECHNIQUE: Knowledge Engineer images were obtained. CT imaging of the head and cervical spine was performed without contrast. Data was reformatted into multiplanar images at the acquisition workstation. This CT examination was performed using dose optimization techniques as appropriate, including one or more of the following: Automated exposure control, iterative reconstruction, and adjustment of technique factors (mA and/or kVp) according to patient size (this includes techniques or standardized protocols for targeted exams where dose is matched to indication/reason for exam). Fleischner Society criteria for the followup of incidental pulmonary nodules was implemented if appropriate. DLP: 1243 mGy-cm. FINDINGS: There is no acute intracranial hemorrhage or abnormal extra-axial collection. No intracranial mass effect or midline shift. Lateral and third ventricles are normal. No hydrocephalus. There are a few scattered nonspecific foci of hypoattenuation within the periventricular white matter that most likely represent a chronic manifestation of small vessel ischemia. Cruz-white matter differentiation is otherwise preserved and there is no evidence of acute territorial infarct. The calvarium and skull base are intact. Mastoid air cells and middle ear cavities are well aerated. No active paranasal sinus disease. Cervical spine alignment is normal in the sagittal dimension. Bridging bone completely fuses the C4-C7 vertebra. Bridging bone also fuses the C2 and C3 vertebra. There is slight retrolisthesis of C3 on C4 and slight anterolisthesis of C7 on T1. Vertebral heights are preserved. No evidence of acute cervical spine fracture. There is relatively advanced degenerative arthrosis of the atlantodental joint. There is also adjacent segment spondylosis at the level of C3-C4. Canal patency is not well assessed on this examination due to inherent limitations of CT without intrathecal contrast. There is at least mild canal stenosis at C3-C4. Visualized soft tissues of the neck are normal. Grossly no pathologically enlarged cervical lymph nodes. Pleural parenchymal scarring is visualized at the apices of both lungs. CT/CT cervical spine wo IV con IMPRESSION: Head: There are scattered chronic small vessel ischemic changes within the periventricular white matter. No evidence of acute territorial infarct or hemorrhage. Cervical spine: No evidence of acute cervical spine fracture and no posttraumatic spinal subluxation. There is bridging bone that fuses multiple consecutive vertebral segments within the cervical spine. Severe adjacent segment spondylosis at C3-C4. Canal patency is not well assessed on this examination due to inherent limitations of CT without intrathecal contrast. There is at least mild canal stenosis at C3-C4. If there are clinical symptoms of compressive myelopathy then a dedicated cervical spine MRI can be obtained for better anatomic characterization of the cord and canal.
--- NOTE | ~2023-03-06 | XR_ITS ---
EXAMINATION: XR CHEST CLINICAL INFORMATION: Fall. Trauma. COMPARISON: Previous chest x-ray most recent 02/10/2023 TECHNIQUE: Frontal view of the chest was obtained. FINDINGS: The cardiac and mediastinal contours are stable. The lung volumes are low. There are chronic increased initial markings in the lungs similar to older exams. No pleural effusion or pneumothorax. Stimulator seen projecting over the lower thoracic spinal canal. No acute bone abnormality. XR/XR chest 1V IMPRESSION: No evidence for acute disease in the chest. Probable chronic interstitial lung disease.
[2023-03-06 10:20] VITALS: BP 109/40; BP 118/60; PULSE 68; PULSE 70; RESP 18; TEMP 37; O2SAT 98; BMI 37.9
--- NOTE | 2023-03-06 11:18 | ECG_ITS ---
Test Reason : FALL Blood Pressure : / mmHG Vent. Rate : 068 BPM Atrial Rate : 068 BPM P-R Int : 230 ms QRS Dur : 084 ms QT Int : 426 ms P-R-T Axes : 039 029 -06 degrees QTc Int : 452 ms Sinus rhythm with 1st degree A-V block Possible Left atrial enlargement Nonspecific ST and T wave abnormality Low voltage QRS Cannot rule out Inferior infarct (cited on or before 27-AUG-2021) Abnormal ECG When compared with ECG of 10-FEB-2023 03:27, MA interval has increased Referred By: Tierra Restrepo Electronically Signed By:OLIVIA SAGE
--- NOTE | 2023-03-06 11:33 | ED_ITS ---
HPI - General Adult General Chief complaint: Fall Stated complaint: FALL FROM STANDING + COLLAR - BLOOD THINNERS Time Seen by Provider: 03/06/23 10:25 Source: patient and EMS Mode of arrival: EMS Limitations: no limitations History of Present Illness HPI narrative: This is an 82-year-old female history of end-stage renal disease, CHF, arthrosclerotic vascular disease, NSTEMI, right kidney mass, fibromyalgia, dysl ipidemia, COPD ( on 4 L NC at home) anemia presenting to the emergency department status post fall at approximately 08:00 patient reports she fell weak throughout (UE>LE) and fell, she hit her neck on what she thinks was her oxygen tank. She tells me that she is only having neck pain. She did hit her head, no loss of consciousness. Not on blood thinners. Patient denies any other complaints at this time. She denies chest pain, shortness of breath, fevers, chills, nausea, vomiting, abdominal pain, visual disturbances and dizziness. Related Data Home Medications Medication Instructions Recorded Confirmed albuterol sulfate 90 mcg/actuation 2 puff inhalation Q4-6H PRN 12/28/22 02/10/23 aerosol inhaler Shortness Of Breath Or Wheezing allopurinol 100 mg tablet 100 mg PO DAILY 12/28/22 02/10/23 cetirizine 10 mg tablet (Zyrtec) 10 mg PO DAILY 12/28/22 02/10/23 citalopram 20 mg tablet 20 mg PO DAILY 12/28/22 02/10/23 famotidine 20 mg tablet 20 mg PO DAILY 12/28/22 02/10/23 levothyroxine 100 mcg tablet 100 mcg PO DAILY@0600 12/28/22 02/10/23 pantoprazole 40 mg tablet,delayed 40 mg PO DAILY@0630 12/28/22 02/10/23 release sodium bicarbonate 325 mg tablet 650 mg PO BID 12/28/22 02/10/23 guaifenesin 400 mg tablet 800 mg PO TID congestion 01/14/23 02/10/23 benzonatate 100 mg capsule 100 mg PO TID PRN cough 01/23/23 02/10/23 morphine 15 mg immediate release 15 mg PO Q4H PRN pain 01/23/23 02/10/23 tablet atorvastatin 20 mg tablet 20 mg PO BEDTIME 01/24/23 02/10/23 ezetimibe 10 mg tablet 10 mg PO DAILY 02/10/23 02/10/23 fluticasone fur. 100 mcg-umeclid 1 ea inhalation DAILY 02/10/23 02/10/23 62.5 mcg-vilant 25 mcg inhalat.powder (Trelegy Ellipta) losartan 25 mg tablet 25 mg PO DAILY 02/10/23 02/10/23 Previous Rx's Medication Instructions Recorded aspirin 81 mg tablet,delayed 81 mg PO DAILY #90 tabs 12/31/22 release metoprolol tartrate 25 mg tablet 12.5 mg PO BID #180 tabs 12/31/22 nitroglycerin 0.4 mg sublingual 0.4 mg sublingual Q5M PRN chest 01/14/23 tablet pain #30 tabs ranolazine 500 mg tablet,extended 500 mg PO BID 90 days #180 tabs 01/14/23 release,12 hr gabapentin 100 mg capsule 100 mg PO DAILY #30 caps 02/01/23 furosemide 40 mg tablet 40 mg PO BID@0900,1800 #60 tabs 02/17/23 Allergies Allergy/AdvReac Type Severity Reaction Status Date / Time NSAIDS (Non-Steroidal Allergy Unknown Verified 02/10/23 03:11 Anti-Inflamma [id number] Reductase AdvReac Severe LEG PAIN Verified 02/10/23 03:11 Inhibitor Review of Systems Review of Systems: Constitutional : No Weight loss, No Fever, No Chills, No Fatigue, No Malaise ENT/Mouth : No sore throat, No Rhinorrhea Eyes: No Eye Pain, No Swelling, No Redness Cardiovascular : No Chest Pain, No SOB, No Dyspnea on Exertion, No Orthopnea, No Edema, No Palpitations Respiratory : No Cough, No Sputum, No Wheezing Gastrointestinal : No Nausea, No Vomiting, No Diarrhea, No Constipation, No abdominal Pain, No Hematochezia, No Melena Genitourinary : No Dysuria, No Urinary Frequency, No Hematuria, Musculoskeletal : No joint pain, No Myalgias, No Joint Swelling, + neck pain Skin : No Skin Lesions, No rash Neuro : No Weakness, No Numbness, No Dizziness, No Headache Psych : No Anxiety/Panic, No Depression All other systems reviewed and are negative Yes all other systems are reviewed and are negative [facility] Past Medical History Attestation statement: The following information was validated with the patient. Source: old records reviewed and nursing notes reviewed Medical History Acquired hypothyroidism Cough Depression, major, recurrent Diabetes Dyslipidemia Fibromyalgia Heart murmur Interstitial lung disease Kidney failure, acute Osteoarthritis of multiple joints Respiratory failure with hypoxia Surgical History H/O hemorrhoidectomy Hx of fusion of cervical spine Hx of tonsillectomy S/P anal fissurectomy S/P appendectomy S/P partial hysterectomy Family History Family History Brother Substance use disorder Son Substance use disorder Daughter Substance use disorder Social History Social History Household Members: Family Housing: House Do you presently have visiting nurse or other home services: No (states she's working on it.) Alcohol intake: never Patient Tobacco Use Status: Former Tobacco user Quit Date: 15 years ago Years Smoked: 20 +/- on and off Smoked in Last 30 Days: No e-Cigarette/Vaping Use: Never Used Second Hand Smoke Exposure: No Use of substances other than those prescribed or required for medical reasons: No Advance Directives: Yes Advance Directives on File: Yes Advance Directives Date on File: 02/01/23 service: No Current occupational status: retired Current occupation: right handed Cognitive needs: No Hearing needs: No Vision needs: Yes Physical Exam ED Vital Signs: Vital Signs - 24 hr 03/06/23 10:20 03/06/23 12:09 03/06/23 14:42 Temperature 98.6 F Pulse Rate 70 68 68 Respiratory Rate 18 Blood Pressure 109/40 L 103/49 L 103/49 L Pulse Oximetry 98 96 96 Oxygen Delivery Method Nasal Cannula Nasal Cannula Oxygen Flow Rate 4 BMI result Body Mass Index 37.9 Vital signs stable Appearance: Alert.? Oriented X3.? No acute distress.? Head: Normocephalic, atraumatic, no step-offs or deformities Eyes: Pupils equal, round and reactive to light.? Extraocular movements intact pain-free. ENT: Pharynx normal.? Neck: Normal inspection.? Neck supple.?+ cervical paraspinous tenderness b/l throughout CVS: Normal heart rate and rhythm.? Pulses normal.? Respiratory: No respiratory distress.? Breath sounds normal.? Abdomen: Soft and nontender.? Skin: Skin warm and dry.? Normal skin color.? Normal skin turgor.? Extremities: No lower extremity edema.? No calf ttp. global weakness UE > LE Back: No midline tenderness, + C-spine tenderness, full range of motion, no CVA tenderness bilaterally Neuro: Oriented X 3.? No motor deficit.? No sensory deficit. CN 2-12 intact . Normal [id number], [id number]. Course Reevaluation(s) Reevaluation #1: CBC with a normocytic anemia, this appears to be around patient's baseline. No reports of active bleeding at this time, I suspect this is chronic in nature. Patient's potassium 5.2 lokelma was ordered. The patient's BUN and creatinine elevated chronically, BUN of 53, creatinine 4.46, patient has history of end- stage renal disease on dialysis Thursday, skip dialysis day. Advised follow-up with PCP. Patient's BNP 291, no signs of CHF or fluid overload on exam, this is much lower than patient's baseline. Troponin 11.1, pending 2nd troponin however EKG nonischemic showing a first-degree heart block which is new. CT of head with scattered chronic small-vessel ischemic changes within the periventricular white matter. No evidence of acute territorial infarct or hemorrhage. Cervical spine with no evidence of acute cervical fracture or no post traumatic spinal subluxations. Bridge bone that uses m ultiple consecutive vertebral segment Time: 14:13 Reevaluation #2: Second troponin pending, urine pending. Patient is requesting increasing services at home PT and case management. She has been having frequent falls would like this when medicaly cleeared. Time: 14:13 Reevaluation #3: P for possible cervical myelopathy. Due to sustained clonus when she stands. Disucssed this case w/ my attending who feels as though it is worth obtianing an MRI MRI ordered then patient to be seen by CM. MRI ordered to rule out cervical myelopathy however based off my physical exam, history and patient history of frequent falls I suspect this is acute on chronic cervical myelopathy Time: 14:52 Additional Reevaluation(s): Patient has a spine simulator but no controller on her. Unsure if it is on or off. Patient cant get an MRI with this per Sarah in MRI. Will call family to see if family can come with remote. [id number] Daughter Evie reports unclear if the remote is in this state or in [place]. Patient & daughter report that they have not charge the device in years so unlikely that it is on. Sarah from [facility] consulted with radiologist and they recommend that the MRI not be done, MRI should be put into safe mode. Unable to be done at this time. I also discussed this case with hospitalist who recommends transferring patient to a facility with Neurosurgery as patient may require higher level of care and patient is a fall. [id number] I did explain all these findings with patient, patient does tell me that she has had chronic neck pain however this feels different today she definitely did have weakness upper and lower extremities upper greater than lower extremities before fall. She tells me she just felt very weak throughout. She did hit her neck, now she tells me unsure if it was against a dresser or an oxygen tank. At this time patient to be transferred to [facility] trauma category to for possible cervical myelopathy , I suspect this is acute on chronic in the fall l ikely contributed to worsening symptoms. I discussed this with patient she is agreeable to this. We cannot obtain an MRI due to patient having a stimulator that cannot be placed in safe mode. Patient requires higher level of care. At this time transfer to [facility] Medications Administered Discontinued Medications Generic Name Dose Route Start Last Admin Trade Name Freq PRN Reason Stop Dose Admin Sodium Zirconium Cyclosilicate 5 gm 03/06/23 12:39 03/06/23 12:49 Sodium Zirconium Cyclosilicate 5 Gm Powd.Pack PO 03/06/23 12:40 5 gm ONCE ONE Administration Medical Decision Making Medical Decision Making [facility] Narrative: 1100 82-year-old female presents status post fall with neck pain. Physical exam significant for cervical paraspinous tenderness on palpation. No midline tenderness. Global weakness UE > LE Patient's cervical collar in place. Will rule out cervical spine fracture, dislocation, traumatic subluxation. Unlikely intracranial hemorrhage, stroke, posterior stroke. Unlikely traumatic injury to chest, abdomen or pelvis. ? Cervical myelopathy or nerve impingement Plan labs, EKG, troponin, head and cervical spine CT. Differential Diagnosis Differential Diagnoses: The differential diagnosis associated with the presentation includes Will rule out cervical spine fracture, dislocation, traumatic subluxation. Unli macy intracranial hemorrhage, stroke, posterior stroke. Unlikely traumatic injury to chest, abdomen or pelvis. ? Cervical myelopathy or nerve impingement Admission/Observation Consideration of admission/observation: Escalation of care including admission/observation considered Unlikely Consult Healthcare Provider Management of the patient was discussed with: Mold Machine Operator (Trauma surgery [facility] ) Lab Data MDM Lab Attestation statement: I reviewed the patient's lab results. 03/06/23 11:51 03/06/23 11:51 Labs: Lab Results 03/06/23 03/06/23 03/06/23 Range/Units 11:51 11:51 11:51 WBC 8.0 (4.8-10.8) X10*3/uL RBC 2.75 L D (4.20-5.50) X10*6/uL Hgb 8.7 L D (12.0-16.0) g/dl Hct 27.2 L D (37.0-47.0) % MCV 98.9 H (80.0-98.0) fL MCH 31.6 (27.0-33.0) pg MCHC 32.0 (31.0-35.0) g/dl RDW 16.3 H (11.0-16.0) % Plt Count 197 D (160-400) X10*3/uL MPV 10.4 (9.4-12.3) fL Immature Gran % (Auto) 0.4 (0.0-0.4) % Neut % (Auto) 50.7 (45-73) % Lymph % (Auto) 32.1 (20-40) % [place] % (Auto) 7.1 (2-11) % Eos % (Auto) 9.4 H (0-4) % Baso % (Auto) 0.3 (0-2) % Lymph # (Auto) 2.6 (1.2-4.9) X10*3/uL [place] # (Auto) 0.6 (0.1-1.2) X10*3/uL Eos # (Auto) 0.8 H (0.0-0.4) X10*3/uL Baso # (Auto) 0.0 (0.0-0.2) X10*3/uL Abs Immat Gran (auto) 0.03 (0.00-0.03) X10*3/uL Absolute Neuts (auto) 4.1 (2.0-8.3) x10*3/uL Absolute Nucleated RBC 0.000 (0.0-0.012) X10*3/uL Nucleated RBC % (auto) 0.0 (0.0-0.2) /100WBC Sodium 136 (135-145) mmol/L Potassium 5.2 H (3.3-5.1) mmol/L Chloride 104 (96-108) mmol/L Carbon Dioxide 24 (22-29) mmol/L Anion Gap 13 (12-20) BUN 53 H (9-16) mg/dL Creatinine 4.46 H* (0.5-1.4) mg/dL Estim Creat Clear Calc 9.9 Estimated GFR 9 Random Glucose 93 (60-115) mg/dL Calcium 8.8 (8.4-10.2) mg/dL Magnesium 2.3 (1.6-2.6) mg/dL Total Bilirubin 0.5 (0.0-1.0) mg/dL AST 23 (5-31) U/L ALT 9 (0-31) U/L Alkaline Phosphatase 107 (39-117) U/L Troponin I High Sens (<3.5-17.0) ng/L B-Natriuretic Peptide 291 H (<100) pg/mL Total Protein 6.4 L (6.5-8.0) g/dL Albumin 3.0 L (3.5-5.0) g/dL COVID-19 (ISAAK) (Negative) COVID-19 Clin Com 03/06/23 03/06/23 03/06/23 Range/Units 11:51 14:38 14:57 WBC (4.8-10.8) X10*3/uL RBC (4.20-5.50) X10*6/uL Hgb (12.0-16.0) g/dl Hct (37.0-47.0) % MCV (80.0-98.0) fL MCH (27.0-33.0) pg MCHC (31.0-35.0) g/dl RDW (11.0-16.0) % Plt Count (160-400) X10*3/uL MPV (9.4-12.3) fL Immature Gran % (Auto) (0.0-0.4) % Neut % (Auto) (45-73) % Lymph % (Auto) (20-40) % [place] % (Auto) (2-11) % Eos % (Auto) (0-4) % Baso % (Auto) (0-2) % Lymph # (Auto) (1.2-4.9) X10*3/uL [place] # (Auto) (0.1-1.2) X10*3/uL Eos # (Auto) (0.0-0.4) X10*3/uL Baso # (Auto) (0.0-0.2) X10*3/uL Abs Immat Gran (auto) (0.00-0.03) X10*3/uL Absolute Neuts (auto) (2.0-8.3) x10*3/uL Absolute Nucleated RBC (0.0-0.012) X10*3/uL Nucleated RBC % (auto) (0.0-0.2) /100WBC Sodium (135-145) mmol/L Potassium (3.3-5.1) mmol/L Chloride (96-108) mmol/L Carbon Dioxide (22-29) mmol/L Anion Gap (12-20) BUN (9-16) mg/dL Creatinine (0.5-1.4) mg/dL Estim Creat Clear Calc Estimated GFR Random Glucose (60-115) mg/dL Calcium (8.4-10.2) mg/dL Magnesium (1.6-2.6) mg/dL Total Bilirubin (0.0-1.0) mg/dL AST (5-31) U/L ALT (0-31) U/L Alkaline Phosphatase (39-117) U/L Troponin I High Sens 11.1 D 12.5 (<3.5-17.0) ng/L B-Natriuretic Peptide (<100) pg/mL Total Protein (6.5-8.0) g/dL Albumin (3.5-5.0) g/dL COVID-19 (ISAAK) Negative (Negative) COVID-19 Clin Com See Note Independent Interpretation I performed an independent interpretation of an: CT Scan Radiology Impression Discussion of test interpretation with radiology: I have reviewed the radiologist's reading. External Record Review External record reviewed: Inpatient record, Office record, Outpatient record, Prior outpatient labs, Prior outpatient radiology, Primary care record and Outside ED record Core Measures AMI core measures followed: Yes Measure exclusions: not indicated Critical Care Time Critical Care Time Critical Care Time: Yes Total Critical Care Time: 35 Attestation: I attest to this time spent taking care of the patient, obtaining history, physical, reviewing labs, imaging, speaking to my attending, speaking to specialist. Discharge Plan Discharge Clinical Impression: ESRD on dialysis, Fall, Cervical spondylosis, Acute hyperkalemia, Cervical disc disease with myelopathy Patient Disposition: [facility] Transfer Details: Transfer to [facility] Trauma category 2 Dr. Dixon Prescriptions: No Action sodium bicarbonate 325 mg tablet 650 mg PO BID allopurinol 100 mg tablet 100 mg PO DAILY levothyroxine 100 mcg tablet 100 mcg PO DAILY@0600 citalopram 20 mg tablet 20 mg PO DAILY famotidine 20 mg tablet 20 mg PO DAILY pantoprazole 40 mg tablet,delayed release (DR/EC) 40 mg PO DAILY@0630 albuterol sulfate 90 mcg/actuation HFA aerosol inhaler 2 puff inhalation Q4-6H PRN (Reason: Shortness Of Breath Or Wheezing) cetirizine [Zyrtec] 10 mg Tablet 10 mg PO DAILY aspirin 81 mg Tablet,Delayed Release (Dr/Ec) 81 mg PO DAILY Qty: 90 0RF metoprolol tartrate 25 mg tablet 12.5 mg PO BID Qty: 180 0RF guaifenesin 400 mg tablet 800 mg PO TID benzonatate 100 mg capsule 100 mg PO TID PRN (Reason: cough) morphine 15 mg tablet 15 mg PO Q4H PRN (Reason: pain) atorvastatin 20 mg tablet 20 mg PO BEDTIME gabapentin 100 mg capsule 100 mg PO DAILY Qty: 30 0RF losartan 25 mg tablet 25 mg PO DAILY ezetimibe 10 mg tablet 10 mg PO DAILY Trelegy Ellipta 100-62.5-25 mcg blister with device 1 ea inhalation DAILY furosemide 40 mg Tablet 40 mg PO BID@0900,1800 Qty: 60 0RF Protocol: Hold for SBP< HOLD for SBP < : 90 ranolazine 500 mg tablet extended release 12 hr 500 mg PO BID 90 Days Qty: 180 3RF nitroglycerin 0.4 mg tablet, sublingual 0.4 mg sublingual Q5M PRN (Reason: chest pain) Qty: 30 5RF Rx Instructions: do not exceed 3 doses per episode
[2023-03-06 11:58] LABS: MANUAL DIFF FLAG NO
[2023-03-06 12:00] LABS: Basophils Percent Auto 0.3 % (0-2); Eosinophils Absolute Auto 0.8 X10*3/uL (0.0-0.4); Eosinophils Percent Auto 9.4 % (0-4); Hematocrit 27.2 % (37.0-47.0); Hemoglobin 8.7 g/dl (12.0-16.0); Imm Gran Abs Auto 0.03 X10*3/uL (0.00-0.03); Imm Gran Pct Auto 0.4 % (0.0-0.4); Lymphocytes Absolute Auto 2.6 X10*3/uL (1.2-4.9); Lymphocytes Percent Auto 32.1 % (20-40); Mean Corpuscular Hemoglobin 31.6 pg (27.0-33.0); Mean Corpuscular Volume 98.9 fL (80.0-98.0); Mean Platelet Volume 10.4 fL (9.4-12.3); Monocytes Absolute Auto 0.6 X10*3/uL (0.1-1.2); Monocytes Percent Auto 7.1 % (2-11); Neutrophils Absolute Auto 4.1 x10*3/uL (2.0-8.3); Neutrophils Percent Auto 50.7 % (45-73); Platelet Count 197 X10*3/uL (160-400); Red Blood Count 2.75 X10*6/uL (4.20-5.50); Red Cell Distribution Width 16.3 % (11.0-16.0)
[2023-03-06 12:09] VITALS: BP 103/49; PULSE 68; O2SAT 96
[2023-03-06 12:22] LABS: B Type Natriuretic Peptide 291 pg/mL (<100)
[2023-03-06 12:26] LABS: Troponin-I High Sensitivity 11.1 ng/L (<3.5-17.0)
[2023-03-06 12:28] LABS: Alanine Aminotransferase 9 U/L (0-31); Alkaline Phosphatase 107 U/L (39-117); Anion Gap 13 (12-20); Aspartate Amino Transferase 23 U/L (5-31); Bilirubin Total 0.5 mg/dL (0.0-1.0); Blood Urea Nitrogen 53 mg/dL (9-16); Calcium 8.8 mg/dL (8.4-10.2); Carbon Dioxide 24 mmol/L (22-29); Chloride 104 mmol/L (96-108); Creatinine Clr Calc Pharmacy 9.9; Estimated Glomerular Filt Rate 9; Glucose Random 93 mg/dL (60-115); Magnesium 2.3 mg/dL (1.6-2.6); Potassium 5.2 mmol/L (3.3-5.1); Sodium 136 mmol/L (135-145); Total Protein 6.4 g/dL (6.5-8.0)
[2023-03-06] MEDS: Sodium Zirconium Cyclosilicate 5 GM POWD.PACK PO (12:49)
[2023-03-06 14:42] VITALS: BP 103/49; PULSE 68; O2SAT 96
[2023-03-06 15:06] LABS: COVID-19 Test Negative (Negative); IDNOW Serial# BCCEAD1C
--- NOTE | 2023-03-06 15:22 | MHC.CM.ED ---
Received case management consult from Socorro JOHNSON. Patient came to ER due to a fall. Work up still pending. Physical therapy eval completed. Short term rehab is recommended. Met with patient in regards to discharge planning. Patient lives in an in-law apartment that is from the main house, has [employer] for oxygen and is active with [facility]. PCP verified. Patient received 4 Moderna vaccines. Patient is declining the need for rehab and wants to return home. Will need BLS transport at d/c. Spoke with patient's daughter/HCP, Evie, via telephone at [phone]. Evie is concerned about patient coming home because she will not be able to transfer to use the bathroom. T/W offered emotional support. Evie aware patient has the capacity to make her own decisions and is unfortunately able to make poor decisions. Patient goes to dialysis at [facility] on [address] in [place] on Thu, and Thu. Patient missed HD today. T/W spoke with [facility] in [place]. They are only open Thursday, and Thursday. They will not be able to dialysis her until Thursday. Socorro JOHNSON made aware. CM will follow up with patient and daughter Evie. Continue to monitor for d/c needs.
[2023-03-06 15:28] LABS: Troponin-I High Sensitivity 12.5 ng/L (<3.5-17.0)
--- NOTE | 2023-03-06 16:31 | MHC.CM.ED ---
Pt will be transferred to [facility] per provider. Possible cervical myelopathy, needs access to neurosurgery. Needs higher level of care.
[2023-03-06 16:54] VITALS: BP 110/39; PULSE 69; RESP 16; TEMP 36.9; O2SAT 97
--- NOTE | 2023-03-06 17:03 | PC.NURSE ---
attempted to call [facility] multiple ties but have been unable to get through - no one picking up the phone. Will try again when EMS arrives
--- NOTE | 2023-03-06 17:09 | PC.NURSE ---
got through to [facility], report given to RN
== END 2023-03-06 17:51 | disposition short-term general hospital (02) ==
PROVIDERS: Physician Assistant; Emergency Provider Emergency Medicine Emergency Medical Services; PCP Internal Medicine
DX: M47.12 Other spondylosis with myelopathy, cervical region (principal); N18.6 End stage renal disease; M54.2 Cervicalgia; M47.812 Spondylosis without myelopathy or radiculopathy, cervical region; E87.5 Hyperkalemia; R51.9 Headache, unspecified; R06.02 Shortness of breath; R26.81 Unsteadiness on feet; Z20.822 Contact with and (suspected) exposure to COVID-19; Z20.828 Contact with and (suspected) exposure to other viral communicable diseases; Z87.891 Personal history of nicotine dependence; Z79.899 Other long term (current) drug therapy; Z79.01 Long term (current) use of anticoagulants
CPT/HCPCS: 36415; 70450; 71045; 72125; 80053; 83735; 83880; 84484; 85025; 87635; 93005; 97162; 99285

== ENCOUNTER 2023-04-19 10:54 | Emergency (ER) | payer MEDICARE, SELFPAY ==
[2023-04-19] VITALS (10 sets, daily range): BP systolic 99–129; BP diastolic 37–59; PULSE 82–90; RESP 16–22; TEMP 36.8–37.2; O2SAT 95–100; BMI 34.7
[2023-04-19 11:38] LABS: Alanine Aminotransferase 7 U/L (0-31); Albumin Level 3.6 g/dL (3.5-5.0); Alkaline Phosphatase 93 U/L (39-117); Anion Gap 16 (12-20); Aspartate Amino Transferase 14 U/L (5-31); Bilirubin Total 0.4 mg/dL (0.0-1.0); Blood Urea Nitrogen 58 mg/dL (9-16); Calcium 9.1 mg/dL (8.4-10.2); Carbon Dioxide 22 mmol/L (22-29); Chloride 102 mmol/L (96-108); Creatinine Clr Calc Pharmacy 11.2; Estimated Glomerular Filt Rate 11; Glucose Random 122 mg/dL (60-115); Potassium 4.1 mmol/L (3.3-5.1); Sodium 136 mmol/L (135-145); Total Protein 6.5 g/dL (6.5-8.0)
--- NOTE | 2023-04-19 12:17 | PC.NURSE ---
patient a&ox3, ekg monitor applied- nsr, vss- pt on 4L NC at baseline, lungs have course crackles throughout, pt has rt av fistula + bruit/thrill- pt states she has dialysis ,/w/f and her last treatment was thursday pt unsure how many kilos they took off. pt had labs drawn, ekg performed and cxr done, awaiting provider at this time, will continue to monitor
--- NOTE | 2023-04-19 12:38 | ED.URI ---
HPI - URI/Sore Throat General Chief Complaint: Upper Respiratory Symptoms Stated Complaint: Cough/bronchitis Time Seen by Provider: 04/19/23 12:23 Source: patient and old records reviewed Mode of arrival: ambulatory Limitations: no limitations History of Present Illness HPI Narrative: 82 yo female with PMH of CHF, CKD on HD MWF, CAD, resp failure, chronic O2 use, pneumonia, HLD, last HD was Thursday full session here with c/o 1 month productive cough but no fevers. She has tried prednisone and levofloxacin but the cough remains. She uses her neb machine daily. She is compliant with her HD and had full session on Thursday. She has no pain she is worried because one time she waited too long and had pneumonia. PUlm notes state cough is chronic due to pulm fibrosis. MD elicited complaint: cough Pertinent past history: pneumonia and asthma Onset (ago): month(s) (1) Consistency: intermittent Severity: moderate Description of mucous: clear Able to tolerate fluids by mouth: Yes Exacerbating factors: exertion and other (coughing) Relieving factors: nothing Associated symptoms: cough Treatments prior to arrival: other (completed 2 weeks ago levofloxacin / prednisone) Related Data Home Medications Medication Instructions Recorded Confirmed albuterol sulfate 90 mcg/actuation 2 puff inhalation Q4-6H PRN 12/28/22 02/10/23 aerosol inhaler Shortness Of Breath Or Wheezing allopurinol 100 mg tablet 100 mg PO DAILY 12/28/22 02/10/23 cetirizine 10 mg tablet (Zyrtec) 10 mg PO DAILY 12/28/22 02/10/23 citalopram 20 mg tablet 20 mg PO DAILY 12/28/22 02/10/23 famotidine 20 mg tablet 20 mg PO DAILY 12/28/22 02/10/23 levothyroxine 100 mcg tablet 100 mcg PO DAILY@0600 12/28/22 02/10/23 pantoprazole 40 mg tablet,delayed 40 mg PO DAILY@0612/28/22 02/10/23 release sodium bicarbonate 325 mg tablet 650 mg PO BID 12/28/22 02/10/23 guaifenesin 400 mg tablet 800 mg PO TID congestion 01/14/23 02/10/23 benzonatate 100 mg capsule 100 mg PO TID PRN cough 01/23/23 02/10/23 morphine 15 mg immediate release 15 mg PO Q4H PRN pain 01/23/23 02/10/23 tablet atorvastatin 20 mg tablet 20 mg PO BEDTIME 01/24/23 02/10/23 ezetimibe 10 mg tablet 10 mg PO DAILY 02/10/23 02/10/23 fluticasone fur. 100 mcg-umeclid 1 ea inhalation DAILY 02/10/23 02/10/23 62.5 mcg-vilant 25 mcg inhalat.powder (Trelegy Ellipta) Previous Rx's Medication Instructions Recorded aspirin 81 mg tablet,delayed 81 mg PO DAILY #90 tabs 12/31/22 release metoprolol tartrate 25 mg tablet 12.5 mg (1/2 x 25 mg) PO BID #180 12/31/22 tabs nitroglycerin 0.4 mg sublingual 0.4 mg sublingual Q5M PRN chest 01/14/23 tablet pain #30 tabs ranolazine 500 mg tablet,extended 500 mg PO BID 90 days #180 tabs 01/14/23 release,12 hr gabapentin 100 mg capsule 100 mg PO DAILY #30 caps 02/01/23 furosemide 40 mg tablet 40 mg PO BID@0900,1800 #60 tabs 02/17/23 losartan 25 mg tablet 25 mg PO DAILY #100 tabs 03/18/23 wheelchair with footrests #1 ea 03/25/23 blood pressure test kit-medium #1 ea 03/27/23 commode (bedside commode) #1 ea 03/27/23 grab bar for bathroom #2 ea 03/27/23 benzonatate 100 mg capsule 100 mg PO BID-TID PRN cough #90 04/07/23 caps Allergies Allergy/AdvReac Type Severity Reaction Status Date / Time NSAIDS (Non-Steroidal Allergy Unknown Verified 02/10/23 03:11 Anti-Inflamma [id number] Reductase AdvReac Severe LEG PAIN Verified 02/10/23 03:11 Inhibitor Review of Systems Review of Systems: Constitutional : No Fever, No Chills ENT/Mouth : No Hoarseness, No sore throat, No Rhinorrhea Eyes: No Redness, No Discharge, No Vision Changes Cardiovascular : No Chest Pain, positive SOB, positive Dyspnea on Exertion, No Edema Respiratory : positive Cough, pos Sputum, positive Wheezing, Gastrointestinal : No Nausea, No Vomiting, No Diarrhea, No abdominal Pain Genitourinary : No Dysuria, No Hematuria Musculoskeletal : No joint pain, No Myalgias Skin : No rash Neuro : No Weakness, No Numbness, No Headache Psych : No anxiety, depression Heme/Lymph: No Bruising, No Bleeding Endocrine : No Polyuria, No Polydipsia All other systems reviewed and are negative [facility] Past Medical History Attestation statement: The following information was validated with the patient. Source: old records reviewed Medical History Cough Respiratory failure with hypoxia Interstitial lung disease Depression, major, recurrent Dyslipidemia Osteoarthritis of multiple joints Acquired hypothyroidism Heart murmur Fibromyalgia Diabetes Kidney failure, acute Surgical History Hx of tonsillectomy S/P appendectomy Hx of fusion of cervical spine S/P anal fissurectomy H/O hemorrhoidectomy S/P partial hysterectomy Family History Family History Brother Substance use disorder Son Substance use disorder Daughter Substance use disorder Social History Social History Household Members: Family Housing: House Do you presently have visiting nurse or other home services: No (states she's working on it.) Alcohol intake: never Patient Tobacco Use Status: Former Tobacco user Quit Date: 15 years ago Years Smoked: 20 +/- on and off Smoked in Last 30 Days: No e-Cigarette/Vaping Use: Never Used Second Hand Smoke Exposure: No Use of substances other than those prescribed or required for medical reasons: No Advance Directives: Yes Advance Directives on File: Yes Advance Directives Date on File: 02/01/23 service: No Current occupational status: retired Current occupation: right handed Cognitive needs: No Hearing needs: No Vision needs: Yes Physical Exam Vital Signs: Vital Signs: Last Vital Signs Temp 98.6 F 04/19/23 15:43 Pulse 84 04/19/23 15:43 Resp 16 04/19/23 15:43 BP 102/43 L 04/19/23 15:43 Pulse Ox 100 04/19/23 15:43 O2 Del Method Nasal Cannula 04/19/23 15:43 O2 Flow Rate 4 04/19/23 15:43 Oxygen Flow Rate 4 04/19/23 12:13 BMI result Body Mass Index 34.7 Appearance: Alert. Oriented X3. No acute distress. Eyes: Pupils equal, round and reactive to light. ENT: Pharynx normal. Neck: Normal inspection. Neck supple. CVS: Normal heart rate and rhythm. Pulses normal. Respiratory: No respiratory distress. Breath sounds diminished with rhonchi noted Abdomen: Soft and nontender. Skin: Skin warm and dry. Normal skin color. Normal skin turgor. Extremities: No lower extremity edema. No calf ttp Neuro: Oriented X 3. No motor deficit. No sensory deficit. Course Course Course Narrative: repeat calls to radiology to get read will sign out to PA pending read Medications Administered Discontinued Medications Generic Name Dose Route Start Last Admin Trade Name Freq PRN Reason Stop Dose Admin Albuterol Sulfate 2.5 mg/ 0 mg 04/19/23 13:49 04/19/23 13:51 Albuterol/Ipratropium 3 ml INHALE 04/19/23 13:50 2.5 dose ONCE ONE Administration Medical Decision Making Medical Decision Making [facility] Narrative: 82 yo female with PMH of CHF, CKD on HD MWF, CAD, resp failure, chronic O2 use, pneumonia, HLD, last HD was Thursday full session here with c/o cough x 1 month no improvement on prednisone or levofloxacin at this time will need basic labs, BNP, CXR and possible CT scan of chest if negative. No LE edema to suggest volume overload, mucous production hx of same in past pulm notes state this is chronic due to her pulm fibrosis. Differential Diagnosis Differential Diagnoses: The differential diagnosis associated with the presentation includes CHF, asthma, pneumonia, pulm fibrosis Admission/Observation Consideration of admission/observation: Escalation of care including admission/observation considered chronic cough no hypoxia can be managed as outpatient Lab Data [facility] Lab Attestation statement: I reviewed the patient's lab results. 04/19/23 11:17 04/19/23 11:17 Labs: Lab Results 04/19/23 04/19/23 04/19/23 Range/Units 11:13 11:17 12:41 WBC 8.4 (4.8-10.8) X10*3/uL RBC 3.40 L D (4.20-5.50) X10*6/uL Hgb 11.2 L D (12.0-16.0) g/dl Hct 33.9 L D (37.0-47.0) % MCV 99.7 H (80.0-98.0) fL MCH 32.9 (27.0-33.0) pg MCHC 33.0 (31.0-35.0) g/dl RDW 15.3 (11.0-16.0) % Plt Count 261 D (160-400) X10*3/uL MPV 9.7 (9.4-12.3) fL Immature Gran % (Auto) 0.5 H (0.0-0.4) % Neut % (Auto) 62.6 (45-73) % Lymph % (Auto) 21.3 (20-40) % [place] % (Auto) 6.7 (2-11) % Eos % (Auto) 8.7 H (0-4) % Baso % (Auto) 0.2 (0-2) % Lymph # (Auto) 1.8 (1.2-4.9) X10*3/uL [place] # (Auto) 0.6 (0.1-1.2) X10*3/uL Eos # (Auto) 0.7 H (0.0-0.4) X10*3/uL Baso # (Auto) 0.0 (0.0-0.2) X10*3/uL Abs Immat Gran (auto) 0.04 H (0.00-0.03) X10*3/uL Absolute Neuts (auto) 5.2 (2.0-8.3) x10*3/uL Absolute Nucleated RBC 0.000 (0.0-0.012) X10*3/uL Nucleated RBC % (auto) 0.0 (0.0-0.2) /100WBC Sodium 136 (135-145) mmol/L Potassium 4.1 D (3.3-5.1) mmol/L Chloride 102 (96-108) mmol/L Carbon Dioxide 22 (22-29) mmol/L Anion Gap 16 (12-20) BUN 58 H (9-16) mg/dL Creatinine 3.80 H (0.5-1.4) mg/dL Estim Creat Clear Calc 11.2 Estimated GFR 11 Random Glucose 122 H (60-115) mg/dL Calcium 9.1 (8.4-10.2) mg/dL Total Bilirubin 0.4 (0.0-1.0) mg/dL AST 14 (5-31) U/L ALT 7 (0-31) U/L Alkaline Phosphatase 93 (39-117) U/L Troponin I High Sens 6.5 (<3.5-17.0) ng/L B-Natriuretic Peptide 82 (<100) pg/mL Total Protein 6.5 (6.5-8.0) g/dL Albumin 3.6 (3.5-5.0) g/dL COVID-19 (ISAAK) Negative (Negative) COVID-19 Clin Com See Note Influenza Type A (PCR) NEGATIVE (Negative) Influenza Type B (PCR) NEGATIVE (Negative) RSV RNA Qual (PCR) NEGATIVE (Negative) SARS-CoV-2 RNA (RT-PCR) NEGATIVE (Negative) Independent Interpretation I performed an independent interpretation of an: EKG, Plain X-Ray (no pneumonia) and CT Scan Interpretation: Rate: 88 Rhythm: NSR 1st degree AVB [place]: normal Normal P waves. Normal DEBI. Normal QRS complex. ST T wave : no JULIANA, nonspecific ST T wave changes qTC: normal prior studies: no acute ischemia The study has been interpreted contemporaneously by me. . Radiology Impression Discussion of test interpretation with radiology: I have reviewed the radiologist's reading. External Record Review External record reviewed: Office record Discharge Plan Discharge Clinical Impression: Chronic cough, Pulmonary fibrosis Patient Disposition: Still a Patient Instructions: Chronic Cough (ED), Pulmonary Fibrosis (ED) Additional Instructions: return for fevers, worsening breathing, difficulty with swelling or any other concerns. please talk to your principal consulting engineer. Prescriptions: No Action losartan 25 mg tablet 25 mg PO DAILY Qty: 100 3RF (DME) wheelchair with footrests See Rx Instructions .Route .MEDSUPPLY Qty: 1 0RF Rx Instructions: As directed (DME) blood pressure test kit-medium Kit See Rx Instructions .Route Qty: 1 0RF Rx Instructions: As directed (DME) bedside commode Kit See Rx Instructions .Route Qty: 1 0RF Rx Instructions: As directed (DME) grab bar for bathroom See Rx Instructions .Route .MEDSUPPLY Qty: 2 0RF Rx Instructions: As directed benzonatate 100 mg capsule 100 mg PO BID-TID PRN (Reason: cough) Qty: 90 1RF sodium bicarbonate 325 mg tablet 650 mg PO BID allopurinol 100 mg tablet 100 mg PO DAILY levothyroxine 100 mcg tablet 100 mcg PO DAILY@0600 citalopram 20 mg tablet 20 mg PO DAILY famotidine 20 mg tablet 20 mg PO DAILY pantoprazole 40 mg tablet,delayed release (DR/EC) 40 mg PO DAILY@0630 albuterol sulfate 90 mcg/actuation HFA aerosol inhaler 2 puff inhalation Q4-6H PRN (Reason: Shortness Of Breath Or Wheezing) cetirizine [Zyrtec] 10 mg Tablet 10 mg PO DAILY aspirin 81 mg Tablet,Delayed Release (Dr/Ec) 81 mg PO DAILY Qty: 90 0RF metoprolol tartrate 25 mg tablet 12.5 mg PO BID Qty: 180 0RF guaifenesin 400 mg tablet 800 mg PO TID benzonatate 100 mg capsule 100 mg PO TID PRN (Reason: cough) morphine 15 mg tablet 15 mg PO Q4H PRN (Reason: pain) atorvastatin 20 mg tablet 20 mg PO BEDTIME gabapentin 100 mg capsule 100 mg PO DAILY Qty: 30 0RF ezetimibe 10 mg tablet 10 mg PO DAILY Trelegy Ellipta 100-62.5-25 mcg blister with device 1 ea inhalation DAILY furosemide 40 mg Tablet 40 mg PO BID@0900,1800 Qty: 60 0RF Protocol: Hold for SBP< HOLD for SBP < : 90 ranolazine 500 mg tablet extended release 12 hr 500 mg PO BID 90 Days Qty: 180 3RF nitroglycerin 0.4 mg tablet, sublingual 0.4 mg sublingual Q5M PRN (Reason: chest pain) Qty: 30 5RF Rx Instructions: do not exceed 3 doses per episode
--- NOTE | 2023-04-19 13:40 | PC.NURSE ---
respiratory called for resp protocol
== END 2023-04-19 19:51 | disposition home or self-care (01) ==
PROVIDERS: Emergency Provider Emergency Medicine; PCP Internal Medicine
DX: J84.10 Pulmonary fibrosis, unspecified (principal); R05.9 Cough, unspecified; I44.0 Atrioventricular block, first degree; I25.10 Atherosclerotic heart disease of native coronary artery without angina pectoris; J44.9 Chronic obstructive pulmonary disease, unspecified; M54.6 Pain in thoracic spine; R06.02 Shortness of breath; Z99.81 Dependence on supplemental oxygen; Z11.52 Encounter for screening for COVID-19; Z20.822 Contact with and (suspected) exposure to COVID-19; Z87.891 Personal history of nicotine dependence
CPT/HCPCS: 0241U; 36415; 71046; 71250; 80053; 83880; 84484; 85025; 87635; 93005; 94640; 99285

== ENCOUNTER 2023-04-23 11:24 | Outpatient (AMB) | payer MEDICARE, SELFPAY ==
--- NOTE | 2023-04-23 11:31 | MHC.OFFVIS ---
Intake Vital Signs 04/23/23 11:32 Height 5 ft 2 in BMI Reason not done Patient refused/unable BP 106/48 L Blood Pressure Location Lt brachial Position Sitting Pulse 83 Intake Visit Reasons: 3 mth f/up Intake Note: 3 month follow up Retail Presentation Specialist Required: No Accompanied by: Daughter Allergies NSAIDS (Non-Steroidal Anti-Inflamma Allergy (Verified 04/23/23 11:34) Unknown [id number] Reductase Inhibitor Adverse Reaction (Severe, Verified 04/23/23 11:34) LEG PAIN Medication List - Last Reconciled 04/23/23 by Phuc Jones MD albuterol sulfate 90 mcg/actuation 2 puffs inhalation Q4-6H PRN allopurinol 100 mg PO DAILY aspirin 81 mg PO DAILY atorvastatin 20 mg PO BEDTIME benzonatate 100 mg PO TID PRN benzonatate 100 mg PO BID-TID PRN blood pressure test kit-medium As directed cetirizine (Zyrtec) 10 mg PO DAILY citalopram 20 mg PO DAILY commode (bedside commode) As directed ezetimibe 10 mg PO DAILY famotidine 20 mg PO DAILY [id number]-woerauxc 100-62.5-25 mcg (Trelegy Ellipta) 1 ea inhalation DAILY furosemide 40 mg See Protocol PO BID@0900,1800 gabapentin 100 mg PO DAILY [grab bar for bathroom As directed] guaifenesin 800 mg PO TID levothyroxine 100 mcg PO DAILY@0600 metoprolol tartrate 12.5 mg (1/2 x 25 mg) PO BID morphine 15 mg PO Q4H PRN nitroglycerin 0.4 mg sublingual Q5M PRN pantoprazole 40 mg PO DAILY@0630 prednisone 40 mg (2 x 20 mg) PO DAILY ranolazine ER 500 mg PO BID 90 days sodium bicarbonate 650 mg PO BID [wheelchair with footrests As directed] HPI HPI Comments History of Present Illness Details Ludy returns for follow-up. She has presumed CAD but did not undergo catheterization as she was not felt to be a suitable candidate for the same. She has chronic respiratory issues and also many comorbidities. On supplemental oxygen. Comes in a wheelchair with family. She is on dialysis for the last few months. Overall, no specific cardiac symptoms like angina. In fact she states she has had chest pain only when coughing that seems rather respiratory in nature. Otherwise okay. PFSH Medical History Cough Respiratory failure with hypoxia Interstitial lung disease Depression, major, recurrent Dyslipidemia Osteoarthritis of multiple joints Acquired hypothyroidism Heart murmur Fibromyalgia Diabetes Kidney failure, acute Surgical History Hx of tonsillectomy S/P appendectomy Hx of fusion of cervical spine S/P anal fissurectomy H/O hemorrhoidectomy S/P partial hysterectomy Family History Brother Substance use disorder Son Substance use disorder Daughter Substance use disorder Social History Household Members: Family Housing: House Do you presently have visiting nurse or other home services: No (states she's working on it.) Alcohol intake: never Patient Tobacco Use Status: Former Tobacco user Quit Date: 15 years ago Years Smoked: 20 +/- on and off e-Cigarette/Vaping Use: Never Used Second Hand Smoke Exposure: No Advance Directives Date on File: 02/01/23 service: No Current occupational status: retired Current occupation: right handed Cognitive needs: No Hearing needs: No Vision needs: Yes Review of Systems Const Denies weakness ENT Denies dizziness Card Denies chest pain, Denies chest pain with activity, Denies syncope, Denies rapid heart rate, Denies pedal edema, Denies edema, Denies leg edema, Denies lightheadedness, Denies palpitations, Denies dyspnea, Denies dyspnea on exertion and Denies orthopnea Resp Denies cough, Denies dyspnea and Denies dyspnea on exertion GI Denies hematochezia and Denies change in stool character Musc Denies abnormal gait, Denies muscle cramps, Denies muscle weakness, Denies numbness, Denies radiating pain into limb and Denies tingling Neuro Denies abnormal gait, Denies dizziness, Denies syncope, Denies numbness, Denies tingling and Denies weakness Endo Denies palpitations Physical Exam Vital Signs: Last Vital Signs Pulse 83 04/23/23 11:32 BP 106/48 L 04/23/23 11:32 Const General: comfortable and no acute distress Orientation/consciousness: patient oriented x3 HEENT Other: Unremarkable Head: Yes normal to inspection Neck Neck: Yes normal visual inspection Chest Chest palpation & inspection: normal inspection of the chest Resp Auscultation: rales Cardio Palpation: normal PMI Heart sounds: S1 normal heart sound present, S2 normal heart sound present, no gallops, Murmur heart sound present systolic II/ and at the right sternal border and no rubs GI Palpation (GI): Soft to palpation Back/Spine/Pelvis Other: unremarkable Skin General skin exam: no rashes or lesions noted Neuro General: patient oriented x3 Extrem General: Yes normal to inspection Psych Mental Status: mental status grossly normal Assessment & Plan Assessment & Plan (1) Atherosclerotic cardiovascular disease: Code(s): I25.10 - Atherosclerotic heart disease of [place] coronary artery without angina pectoris (2) ESRD needing dialysis: Code(s): N18.6 - End stage renal disease; Z99.2 - Dependence on renal dialysis Plan Echocardiogram with LVEF of 65-70%. Mild mitral annular calcification mild aortic valve calcification. Myocardial perfusion imaging study shows moderate to severe apical ischemia. Clinically, no recent anginal-type symptoms. Overall, many comorbidities, chronic pulmonary disease needing oxygen, ESRD on hemodialysis, frailty, markedly limited ambulation. After discussion with , not felt to be a candidate for invasive angiogram. Patient as well as family are aware of this. Hence continue medications only. She remains on aspirin, beta-blockers, ranolazine, statins and Zetia. No further changes made. Follow-up in 6 months. In the interim, to call with concerns. Coding Level of Care Code Est Pt Level 4 (23682) Diagnoses Atherosclerotic cardiovascular disease I25.10 ESRD needing dialysis N18.6; Z99.2
[2023-04-23 11:32] VITALS: BP 106/48; PULSE 83
== END 2023-04-23 11:50 | disposition home or self-care (01) ==
PROVIDERS: PCP Internal Medicine; Visit Provider Internal Medicine
DX: I25.10 Atherosclerotic heart disease of native coronary artery without angina pectoris (principal); N18.6 End stage renal disease; Z99.2 Dependence on renal dialysis
CPT/HCPCS: 99214

== ENCOUNTER → 2023-04-23 11:24 | Outpatient (BNVA) | payer MEDICARE, SELFPAY | PROVIDERS: PCP Internal Medicine; Visit Provider Internal Medicine | DX: I25.10 Atherosclerotic heart disease of native coronary artery without angina pectoris (principal); N18.6 End stage renal disease; Z79.82 Long term (current) use of aspirin; Z79.899 Other long term (current) drug therapy; Z99.2 Dependence on renal dialysis | CPT/HCPCS: 99212 ==

== ENCOUNTER 2023-05-01 15:35 | Emergency (ER) | payer MEDICARE, SELFPAY ==
--- NOTE | 2023-05-01 | ECG_ITS ---
Test Reason : CHEST PAIN Blood Pressure : / mmHG Vent. Rate : 083 BPM Atrial Rate : 083 BPM P-R Int : 206 ms QRS Dur : 084 ms QT Int : 378 ms P-R-T Axes : 037 042 016 degrees QTc Int : 444 ms Normal sinus rhythm Normal ECG When compared with ECG of 19-APR-2023 11:07, Premature atrial complexes are no longer Present Nonspecific T wave abnormality no longer evident in Anterior leads Low voltage QRS has changed Referred By: Generic ED Physician Electronically Signed By:OSMANI DALE MD
--- NOTE | ~2023-05-01 | XR_ITS ---
EXAMINATION: XR CHEST CLINICAL INFORMATION: Shortness of breath. COMPARISON: 02/17/2023. Correlation made with chest CT performed 04/19/2023. TECHNIQUE: Frontal view of the chest was obtained. FINDINGS: The lung volumes are low. There is mild bilateral increased interstitial marking/coarsening. There are no significant pleural effusions. The bony structures and soft tissues are unremarkable. XR/XR chest 1V IMPRESSION: Low lung volumes limits evaluation. Diffuse mild interstitial coarsening was seen previously and is stable in appearance given differences in levels of inspiration and technique. This was also seen on recent CT. There is no new consolidation or evidence for significant pleural effusion.
[2023-05-01 15:57] VITALS: BP 124/46; BP 160/98; PULSE 84; PULSE 86; RESP 14; TEMP 36.9; O2SAT 100; O2SAT 98; BMI 33.3
--- NOTE | 2023-05-01 16:36 | ED_ITS ---
HPI - SOB/Dyspnea General Chief Complaint: Weakness Stated Complaint: AMS,FROM DIALYSIS,SOB,HALLUCINATIONS,WHEEZING Time Seen by Provider: 05/01/23 16:35 Source: patient Mode of arrival: EMS Limitations: no limitations History of Present Illness HPI Narrative: Patient 82 years old with history of ESRD on hemodialysis, hypertension, chronic hypoxemic respiratory failure secondary to interstitial lung disease on intermittent prednisone treatment and 3-4 L supplemental oxygen at home, HFpEF comes here as in the past for increased shortness of breath which is going on for last 2 weeks patient was given prednisone 40 mg daily for 5 days on 04/27 had hemodialysis today for 4 hours with extraction of 3100 cc fluid comes as still feeling short of saturating 94% on 3 L patient been coughing with mucoid phlegm last few weeks which is usual for her no fever no chills patient was seen in the ER on 04/[address] chest which shows chronic interstitial disease with underlying emphysema no acute consolidation. The patient was having visual hallucinations and time of dialysis seeing puppies Related Data Home Medications Medication Instructions Recorded Confirmed albuterol sulfate 90 mcg/actuation 2 puff inhalation Q4-6H PRN 12/28/22 04/23/23 aerosol inhaler Shortness Of Breath Or Wheezing allopurinol 100 mg tablet 100 mg PO DAILY 12/28/22 04/23/23 cetirizine 10 mg tablet (Zyrtec) 10 mg PO DAILY 12/28/22 04/23/23 famotidine 20 mg tablet 20 mg PO DAILY 12/28/22 04/23/23 levothyroxine 100 mcg tablet 100 mcg PO DAILY@0600 12/28/22 04/23/23 pantoprazole 40 mg tablet,delayed 40 mg PO DAILY@0630 12/28/22 04/23/23 release sodium bicarbonate 325 mg tablet 650 mg PO BID 12/28/22 04/23/23 guaifenesin 400 mg tablet 800 mg PO TID congestion 01/14/23 04/23/23 benzonatate 100 mg capsule 100 mg PO TID PRN cough 01/23/23 04/23/23 morphine 15 mg immediate release 15 mg PO Q4H PRN pain 01/23/23 04/23/23 tablet atorvastatin 20 mg tablet 20 mg PO BEDTIME 01/24/23 04/23/23 ezetimibe 10 mg tablet 10 mg PO DAILY 02/10/23 04/23/23 fluticasone fur. 100 mcg-umeclid 1 ea inhalation DAILY 02/10/23 04/23/23 62.5 mcg-vilant 25 mcg inhalat.powder (Trelegy Ellipta) Previous Rx's Medication Instructions Recorded aspirin 81 mg tablet,delayed 81 mg PO DAILY #90 tabs 12/31/22 release metoprolol tartrate 25 mg tablet 12.5 mg (1/2 x 25 mg) PO BID #180 12/31/22 tabs nitroglycerin 0.4 mg sublingual 0.4 mg sublingual Q5M PRN chest 01/14/23 tablet pain #30 tabs ranolazine 500 mg tablet,extended 500 mg PO BID 90 days #180 tabs 01/14/23 release,12 hr gabapentin 100 mg capsule 100 mg PO DAILY #30 caps 02/01/23 furosemide 40 mg tablet 40 mg PO BID@0900,1800 #60 tabs 02/17/23 wheelchair with footrests #1 ea 03/25/23 blood pressure test kit-medium #1 ea 03/27/23 commode (bedside commode) #1 ea 03/27/23 grab bar for bathroom #2 ea 03/27/23 benzonatate 100 mg capsule 100 mg PO BID-TID PRN cough #90 04/07/23 caps prednisone 20 mg tablet 40 mg (2 x 20 mg) PO DAILY #10 tabs 04/19/23 citalopram 20 mg tablet 20 mg PO DAILY #300 tabs 04/20/23 prednisone 20 mg tablet 40 mg (2 x 20 mg) PO DAILY #10 tabs 05/01/23 Allergies Allergy/AdvReac Type Severity Reaction Status Date / Time NSAIDS (Non-Steroidal Allergy Unknown Verified 04/23/23 11:34 Anti-Inflamma [id number] Reductase AdvReac Severe LEG PAIN Verified 04/23/23 11:34 Inhibitor Review of Systems 2 Review of Systems: Yes all other systems are reviewed and are negative [facility] Past Medical History Medical History Cough Respiratory failure with hypoxia Interstitial lung disease Depression, major, recurrent Dyslipidemia Osteoarthritis of multiple joints Acquired hypothyroidism Heart murmur Fibromyalgia Diabetes Surgical History Hx of tonsillectomy S/P appendectomy Hx of fusion of cervical spine S/P anal fissurectomy H/O hemorrhoidectomy S/P partial hysterectomy Family History Family History Brother Substance use disorder Son Substance use disorder Daughter Substance use disorder Social History Social History Household Members: Family Housing: House Do you presently have visiting nurse or other home services: No (states she's working on it.) Alcohol intake: never Patient Tobacco Use Status: Former Tobacco user Quit Date: 15 years ago Years Smoked: 20 +/- on and off Smoked in Last 30 Days: No e-Cigarette/Vaping Use: Never Used Second Hand Smoke Exposure: No Use of substances other than those prescribed or required for medical reasons: No Advance Directives: Yes Advance Directives on File: Yes Advance Directives Date on File: 02/01/23 service: No Current occupational status: retired Current occupation: right handed Cognitive needs: No Hearing needs: No Vision needs: Yes Physical Exam 2 Vital Signs: Vital Signs: Last Vital Signs Temp 97.3 F 05/01/23 19:36 Pulse 88 05/02/23 00:55 Resp 16 05/01/23 19:36 BP 128/59 L 05/02/23 00:55 Pulse Ox 95 05/02/23 00:55 O2 Del Method Nasal Cannula 05/02/23 00:55 O2 Flow Rate 4 05/01/23 19:36 Oxygen Flow Rate 2 05/01/23 15:57 BMI result Body Mass Index 33.3 Appearance: Alert. Oriented X3. No acute distress. Eyes: PERRLA, No Nystagmus ENT: Pharynx normal. Oral Mucosa moist Neck: Normal inspection. Neck supple. CVS: Normal heart rate and rhythm. Pulses normal. Respiratory: Mild respiratory distress with frequent cough mucous secretions in the throat fine crackles both inspiratory and expiatory rales diffusely Equal air entry bilateral, no wheezing/rales/rhonchi Abdomen: Soft and nontender. Bowel sounds are present, no mass palpable, no CVA tenderness Skin: Skin warm and dry. Normal skin color. Normal skin turgor. Extremities: No lower extremity edema. No calf tenderness Neuro: Oriented X 3. No motor deficit. Medications Administered Discontinued Medications Generic Name Dose Route Start Last Admin Trade Name Ya PRN Reason Stop Dose Admin Albuterol Sulfate 2.5 mg/ 0 mg 05/01/23 16:49 05/01/23 16:55 Albuterol/Ipratropium 3 ml INHALE 05/01/23 16:50 1 dose ONCE ONE Administration Methylprednisolone Sodium Succinate 125 mg 05/01/23 16:47 05/01/23 18:36 Methylprednisolone Sod Succ 125 Mg/2 Ml Vial IVPUSH 05/01/23 16:48 125 mg ONCE ONE Administration Medical Decision Making Medical Decision Making [facility] Narrative: Patient 82 years old with history of incisional disease on hemodialysis, hypertension, chronic hypoxemic respiratory failure secondary to interstitial lung disease on intermittent prednisone treatment and 3-4 L supplemental oxygen at home, HFpEF comes here as in the past for increased shortness of breath on arrival patient saturating 94% on 4 L look stable chest x-ray and labs were stable patient start feeling better after nebulizing treatment and IV steroids Differential Diagnosis Differential Diagnoses: The differential diagnosis associated with the presentation includes Chronic bronchitis/CHF/COPD/chronic lung disease Lab Data [facility] Lab Attestation statement: I reviewed the patient's lab results. 05/01/23 19:12 05/01/23 19:12 Labs: Lab Results 05/01/23 05/01/23 Range/Units 18:23 19:12 WBC 9.9 (4.8-10.8) X10*3/uL RBC 3.41 L (4.20-5.50) X10*6/uL Hgb 11.3 L (12.0-16.0) g/dl Hct 34.2 L (37.0-47.0) % MCV 100.3 H (80.0-98.0) fL MCH 33.1 H (27.0-33.0) pg MCHC 33.0 (31.0-35.0) g/dl RDW 15.3 (11.0-16.0) % Plt Count 193 D (160-400) X10*3/uL MPV 9.9 (9.4-12.3) fL Immature Gran % (Auto) 0.4 (0.0-0.4) % Neut % (Auto) 62.7 (45-73) % Lymph % (Auto) 20.1 (20-40) % Hughes % (Auto) 9.7 (2-11) % Eos % (Auto) 6.7 H (0-4) % Baso % (Auto) 0.4 (0-2) % Lymph # (Auto) 2.0 (1.2-4.9) X10*3/uL Hughes # (Auto) 1.0 (0.1-1.2) X10*3/uL Eos # (Auto) 0.7 H (0.0-0.4) X10*3/uL Baso # (Auto) 0.0 (0.0-0.2) X10*3/uL Abs Immat Gran (auto) 0.04 H (0.00-0.03) X10*3/uL Absolute Neuts (auto) 6.2 (2.0-8.3) x10*3/uL Absolute Nucleated RBC 0.000 (0.0-0.012) X10*3/uL Nucleated RBC % (auto) 0.0 (0.0-0.2) /100WBC Sodium 133 L (135-145) mmol/L Potassium 4.7 (3.3-5.1) mmol/L Chloride 102 (96-108) mmol/L Carbon Dioxide 20 L (22-29) mmol/L Anion Gap 16 (12-20) BUN 40 H (9-16) mg/dL Creatinine 3.42 H (0.5-1.4) mg/dL Estim Creat Clear Calc 13.6 Estimated GFR 13 Random Glucose 99 (60-115) mg/dL Calcium 8.8 (8.4-10.2) mg/dL Total Bilirubin 0.5 (0.0-1.0) mg/dL AST 16 (5-31) U/L ALT 11 (0-31) U/L Alkaline Phosphatase 84 (39-117) U/L B-Natriuretic Peptide 156 H (<100) pg/mL Total Protein 6.4 L (6.5-8.0) g/dL Albumin 3.6 (3.5-5.0) g/dL Influenza Type A (PCR) NEGATIVE (Negative) Influenza Type B (PCR) NEGATIVE (Negative) RSV RNA Qual (PCR) NEGATIVE (Negative) SARS-CoV-2 RNA (RT-PCR) NEGATIVE (Negative) Discharge Plan Discharge Clinical Impression: Interstitial lung disease, Respiratory failure with hypoxia Patient Disposition: Home, Self-Care Instructions: COPD (Chronic Obstructive Pulmonary Disease) (ED), Chronic Respiratory Failure (DC) Additional Instructions: Continue nebulizing treatment/inhaler every 4-6 hours as needed Use oxygen at home as advised Take prednisone 40 mg daily for next 5 days Prescriptions: New prednisone 20 mg tablet 40 mg PO DAILY Qty: 10 0RF No Action (DME) wheelchair with footrests See Rx Instructions .Route .MEDSUPPLY Qty: 1 0RF Rx Instructions: As directed (DME) blood pressure test kit-medium Kit See Rx Instructions .Route Qty: 1 0RF Rx Instructions: As directed (DME) bedside commode Kit See Rx Instructions .Route Qty: 1 0RF Rx Instructions: As directed (DME) grab bar for bathroom See Rx Instructions .Route .MEDSUPPLY Qty: 2 0RF Rx Instructions: As directed benzonatate 100 mg capsule 100 mg PO BID-TID PRN (Reason: cough) Qty: 90 1RF citalopram 20 mg tablet 20 mg PO DAILY Qty: 300 3RF sodium bicarbonate 325 mg tablet 650 mg PO BID allopurinol 100 mg tablet 100 mg PO DAILY levothyroxine 100 mcg tablet 100 mcg PO DAILY@0600 famotidine 20 mg tablet 20 mg PO DAILY pantoprazole 40 mg tablet,delayed release (DR/EC) 40 mg PO DAILY@0630 albuterol sulfate 90 mcg/actuation HFA aerosol inhaler 2 puff inhalation Q4-6H PRN (Reason: Shortness Of Breath Or Wheezing) cetirizine [Zyrtec] 10 mg Tablet 10 mg PO DAILY aspirin 81 mg Tablet,Delayed Release (Dr/Ec) 81 mg PO DAILY Qty: 90 0RF metoprolol tartrate 25 mg tablet 12.5 mg PO BID Qty: 180 0RF guaifenesin 400 mg tablet 800 mg PO TID benzonatate 100 mg capsule 100 mg PO TID PRN (Reason: cough) morphine 15 mg tablet 15 mg PO Q4H PRN (Reason: pain) atorvastatin 20 mg tablet 20 mg PO BEDTIME gabapentin 100 mg capsule 100 mg PO DAILY Qty: 30 0RF ezetimibe 10 mg tablet 10 mg PO DAILY Trelegy Ellipta 100-62.5-25 mcg blister with device 1 ea inhalation DAILY furosemide 40 mg Tablet 40 mg PO BID@0900,1800 Qty: 60 0RF Protocol: Hold for SBP< HOLD for SBP < : 90 prednisone 20 mg tablet 40 mg PO DAILY Qty: 10 0RF ranolazine 500 mg tablet extended release 12 hr 500 mg PO BID 90 Days Qty: 180 3RF nitroglycerin 0.4 mg tablet, sublingual 0.4 mg sublingual Q5M PRN (Reason: chest pain) Qty: 30 5RF Rx Instructions: do not exceed 3 doses per episode Interventions: ED Discharge Assessment Last Done: 05/01/23 21:47
[2023-05-01] MEDS: Albuterol Sulfate 2.5 MG, Albuterol/Iprat 2.5/0.5MG 3 ML 3 ML INHALE (16:55)
[2023-05-01 16:56] VITALS: PULSE 93; RESP 18; O2SAT 99
[2023-05-01 17:26] VITALS: BP 122/51; PULSE 83; RESP 16; TEMP 36.7; O2SAT 96
[2023-05-01] MEDS: methylPREDNISolone Sod Succ 125 MG/2 ML VIAL IVPUSH (18:36)
[2023-05-01 19:12] LABS: Influenza A PCR NEGATIVE (Negative); Influenza B PCR NEGATIVE (Negative); Resp Syncy Virus RNA Qual PCR NEGATIVE (Negative); SARS COV2 PCR INHOUSE NEGATIVE (Negative)
[2023-05-01 19:16] LABS: MANUAL DIFF FLAG NO
[2023-05-01 19:18] LABS: Basophils Percent Auto 0.4 % (0-2); Eosinophils Absolute Auto 0.7 X10*3/uL (0.0-0.4); Eosinophils Percent Auto 6.7 % (0-4); Hematocrit 34.2 % (37.0-47.0); Hemoglobin 11.3 g/dl (12.0-16.0); Imm Gran Abs Auto 0.04 X10*3/uL (0.00-0.03); Imm Gran Pct Auto 0.4 % (0.0-0.4); Lymphocytes Percent Auto 20.1 % (20-40); Mean Corpuscular Hemoglobin 33.1 pg (27.0-33.0); Mean Corpuscular Volume 100.3 fL (80.0-98.0); Mean Platelet Volume 9.9 fL (9.4-12.3); Monocytes Percent Auto 9.7 % (2-11); Neutrophils Absolute Auto 6.2 x10*3/uL (2.0-8.3); Neutrophils Percent Auto 62.7 % (45-73); Platelet Count 193 X10*3/uL (160-400); Red Blood Count 3.41 X10*6/uL (4.20-5.50); Red Cell Distribution Width 15.3 % (11.0-16.0); White Blood Count 9.9 X10*3/uL (4.8-10.8)
[2023-05-01 19:32] LABS: Alanine Aminotransferase 11 U/L (0-31); Albumin Level 3.6 g/dL (3.5-5.0); Alkaline Phosphatase 84 U/L (39-117); Anion Gap 16 (12-20); Aspartate Amino Transferase 16 U/L (5-31); Bilirubin Total 0.5 mg/dL (0.0-1.0); Blood Urea Nitrogen 40 mg/dL (9-16); Calcium 8.8 mg/dL (8.4-10.2); Carbon Dioxide 20 mmol/L (22-29); Chloride 102 mmol/L (96-108); Creatinine Clr Calc Pharmacy 13.6; Estimated Glomerular Filt Rate 13; Glucose Random 99 mg/dL (60-115); Potassium 4.7 mmol/L (3.3-5.1); Sodium 133 mmol/L (135-145); Total Protein 6.4 g/dL (6.5-8.0)
[2023-05-01 19:36] VITALS: BP 119/53; PULSE 76; RESP 16; TEMP 36.3; O2SAT 98
[2023-05-01 19:37] LABS: B Type Natriuretic Peptide 156 pg/mL (<100)
--- NOTE | 2023-05-01 21:13 | PC.NURSE ---
meaghan with updates
--- NOTE | 2023-05-01 21:22 | PC.NURSE ---
daughter will seed cone picker
[2023-05-02 00:55] VITALS: BP 128/59; PULSE 88; O2SAT 95
--- NOTE | 2023-05-02 02:22 | MHC.EDTECH ---
Patient changed and repositioned
== END 2023-05-02 05:16 | disposition home or self-care (01) ==
PROVIDERS: Emergency Provider Internal Medicine
DX: J84.9 Interstitial pulmonary disease, unspecified (principal); J96.91 Respiratory failure, unspecified with hypoxia; R53.1 Weakness; Z20.822 Contact with and (suspected) exposure to COVID-19; Z20.828 Contact with and (suspected) exposure to other viral communicable diseases; Z87.891 Personal history of nicotine dependence; Z79.899 Other long term (current) drug therapy
CPT/HCPCS: 0241U; 36415; 71045; 80053; 83880; 85025; 93005; 94640; 96374; 99284; 99285; J2930

== ENCOUNTER 2023-05-04 11:26 | Inpatient (IN) | payer OTHER, SELFPAY ==
[2023-05-04] VITALS (8 sets, daily range): BP systolic 114–145; BP diastolic 50–60; PULSE 80–112; RESP 17–35; TEMP 37.3–37.5; O2SAT 92–97; BMI 38.9
--- NOTE | ~2023-05-04 | CT_ITS ---
EXAMINATION: CT CHEST WITHOUT CONTRAST CLINICAL INFORMATION: Cough. Shortness of breath. Question pulmonary edema versus pneumonia. COMPARISON: Previous chest CT 04/19/2023 and chest x-ray from earlier the same day TECHNIQUE: Multidetector volumetric CT imaging of the chest was done. Axial MIP volume rendering provided. Sagittal and coronal reformatted images were obtained. This CT examination was performed using dose optimization techniques as appropriate, variously including the following: *Automated exposure control *Adjustment of mA and/or kV according to patient size (this includes techniques or standardized protocols for targeted exams where dose is matched to indication/reason for exam; i.e. extremities or head) *Use of iterative reconstruction technique DLP: 366 mGy-cm FINDINGS: LUNGS: Mild paraseptal emphysema. There is a new 1 cm nodule in the left upper lobe axial image 22 series 3. Given new finding in short interval, probably represents an infectious or inflammatory process. Stable 5 mm peripheral or subpleural left upper lobe nodule axial 25 series There is increasing bilateral lower lobe airspace disease with air bronchograms suggestive of pneumonia, right greater than left. There are increased peripheral reticular markings suggestive of mild interstitial disease. MEDIASTINUM: Upper normal heart size. No pericardial effusion. Mild coronary artery and aortic valve calcification. Normal caliber calcified thoracic aorta. Small mediastinal CORONARY ARTERY CALCIFICATION: Mild PLEURA: There is no pleural effusion. No pleural mass or thickening. AXILLA: No lymphadenopathy. UPPER ABDOMEN: Stable liver cyst. Cortical thinning or scarring of the upper pole right kidney. OSSEOUS STRUCTURES: Spinal stimulator. Degenerative changes of the spine. CT/CT chest wo IV con IMPRESSION: New bilateral lower lobe airspace disease suggestive of pneumonia. 1 cm nodule in the left upper lobe new in the interval from 04/19/2023 exam. This probably presents an infectious or inflammatory process. Emphysema and and interstitial lung disease.. Fleischner guidelines were followed.
--- NOTE | ~2023-05-04 | XR_ITS ---
EXAMINATION: XR CHEST CLINICAL INFORMATION: Shortness of breath COMPARISON: Previous chest x-ray most recent May [address] 04/19/2023 TECHNIQUE: Frontal view of the chest was obtained. FINDINGS: The cardiac and mediastinal contours are stable. Lung volumes are low. There are coarse lung markings suggestive of interstitial lung disease similar to previous exams. No definite pneumonia or acute alveolitis. No significant pleural effusion. No pneumothorax. Degenerative changes of the spine and spinal stimulator. XR/XR chest 1V IMPRESSION: Low lung volumes and interstitial lung disease similar to recent exams
--- NOTE | 2023-05-04 11:37 | ECG_ITS ---
Test Reason : SOB Blood Pressure : / mmHG Vent. Rate : 108 BPM Atrial Rate : 108 BPM P-R Int : 192 ms QRS Dur : 090 ms QT Int : 328 ms P-R-T Axes : 037 035 018 degrees QTc Int : 439 ms Sinus tachycardia Low voltage QRS Nonspecific T wave abnormality Inferior leads Abnormal ECG When compared with ECG of 01-MAY-2023 17:36, No significant changes seen Referred By: Bao Mendoza Electronically Signed By:OSMANI DALE MD
[2023-05-04] MEDS: Albuterol Sulfate 5 MG, Albuterol/Iprat 2.5/0.5MG 3 ML 3 ML INHALE (11:51)
[2023-05-04 12:21] LABS: MANUAL DIFF FLAG NO
[2023-05-04] MEDS: methylPREDNISolone Sod Succ 125 MG/2 ML VIAL IVPUSH (12:23)
[2023-05-04 12:26] LABS: VBG HCO3 15 mmol/L (22-26); VBG pCO2 34 mmHg; VBG pH 7.26 (7.32-7.43); VBG pO2 92 mmHg
[2023-05-04 12:27] LABS: Basophils Absolute Auto 0.1 X10*3/uL (0.0-0.2); Basophils Percent Auto 0.3 % (0-2); Hematocrit 33.5 % (37.0-47.0); Hemoglobin 10.9 g/dl (12.0-16.0); Imm Gran Abs Auto 0.04 X10*3/uL (0.00-0.03); Imm Gran Pct Auto 0.3 % (0.0-0.4); Lymphocytes Absolute Auto 1.3 X10*3/uL (1.2-4.9); Lymphocytes Percent Auto 8.1 % (20-40); Mean Corpuscular HGB Conc 32.5 g/dl (31.0-35.0); Mean Corpuscular Hemoglobin 32.4 pg (27.0-33.0); Mean Corpuscular Volume 99.7 fL (80.0-98.0); Mean Platelet Volume 10.3 fL (9.4-12.3); Monocytes Percent Auto 6.3 % (2-11); Neutrophils Absolute Auto 13.3 x10*3/uL (2.0-8.3); Platelet Count 202 X10*3/uL (160-400); Red Blood Count 3.36 X10*6/uL (4.20-5.50); Red Cell Distribution Width 14.9 % (11.0-16.0); White Blood Count 15.6 X10*3/uL (4.8-10.8)
[2023-05-04 12:31] LABS: Venous Blood Gas Refer to POC result
[2023-05-04 12:40] LABS: Anion Gap 19 (12-20); Blood Urea Nitrogen 102 mg/dL (9-16); Calcium 8.4 mg/dL (8.4-10.2); Carbon Dioxide 16 mmol/L (22-29); Chloride 105 mmol/L (96-108); Creatinine Clr Calc Pharmacy 8.3; Estimated Glomerular Filt Rate 8; Glucose Random 215 mg/dL (60-115); Potassium 4.8 mmol/L (3.3-5.1); Sodium 135 mmol/L (135-145)
[2023-05-04 12:42] LABS: B Type Natriuretic Peptide 471 pg/mL (<100)
[2023-05-04 12:44] LABS: Troponin-I High Sensitivity 27.2 ng/L (<3.5-17.0)
--- NOTE | 2023-05-04 13:21 | ED_ITS ---
HPI - SOB/Dyspnea General Chief Complaint: Dyspnea Stated Complaint: SOB X3 DAYS, CPAP PER EMS Time Seen by Provider: 05/04/23 11:32 Source: EMS Mode of arrival: EMS History of Present Illness HPI Narrative: 911 was called by daughter as patient with extreme shortness of breath and could not speak. EMS found the patient to be hypoxic and placed her on Bipap. Patient was to have dialysis today MD elicited complaint: shortness of breath Pertinent past history: congestive heart failure and other (kidney failure and dialysis) Onset (ago): day(s) Timing: constant Severity: severe Associated symptoms: chest pain Related Data Home Medications Medication Instructions Recorded Confirmed albuterol sulfate 90 mcg/actuation 2 puff inhalation Q4-6H PRN 12/28/22 04/23/23 aerosol inhaler Shortness Of Breath Or Wheezing allopurinol 100 mg tablet 100 mg PO DAILY 12/28/22 04/23/23 cetirizine 10 mg tablet (Zyrtec) 10 mg PO DAILY 12/28/22 04/23/23 famotidine 20 mg tablet 20 mg PO DAILY 12/28/22 04/23/23 levothyroxine 100 mcg tablet 100 mcg PO DAILY@0600 12/28/22 04/23/23 pantoprazole 40 mg tablet,delayed 40 mg PO DAILY@0630 12/28/22 04/23/23 release sodium bicarbonate 325 mg tablet 650 mg PO BID 12/28/22 04/23/23 guaifenesin 400 mg tablet 800 mg PO TID congestion 01/14/23 04/23/23 benzonatate 100 mg capsule 100 mg PO TID PRN cough 01/23/23 04/23/23 morphine 15 mg immediate release 15 mg PO Q4H PRN pain 01/23/23 04/23/23 tablet atorvastatin 20 mg tablet 20 mg PO BEDTIME 01/24/23 04/23/23 ezetimibe 10 mg tablet 10 mg PO DAILY 02/10/23 04/23/23 fluticasone fur. 100 mcg-umeclid 1 ea inhalation DAILY 02/10/23 04/23/23 62.5 mcg-vilant 25 mcg inhalat.powder (Trelegy Ellipta) Previous Rx's Medication Instructions Recorded aspirin 81 mg tablet,delayed 81 mg PO DAILY #90 tabs 12/31/22 release metoprolol tartrate 25 mg tablet 12.5 mg (1/2 x 25 mg) PO BID #180 12/31/22 tabs nitroglycerin 0.4 mg sublingual 0.4 mg sublingual Q5M PRN chest 01/14/23 tablet pain #30 tabs ranolazine 500 mg tablet,extended 500 mg PO BID 90 days #180 tabs 01/14/23 release,12 hr gabapentin 100 mg capsule 100 mg PO DAILY #30 caps 02/01/23 furosemide 40 mg tablet 40 mg PO BID@0900,1800 #60 tabs 02/17/23 wheelchair with footrests #1 ea 03/25/23 blood pressure test kit-medium #1 ea 03/27/23 commode (bedside commode) #1 ea 03/27/23 grab bar for bathroom #2 ea 03/27/23 benzonatate 100 mg capsule 100 mg PO BID-TID PRN cough #90 04/07/23 caps prednisone 20 mg tablet 40 mg (2 x 20 mg) PO DAILY #10 tabs 04/19/23 citalopram 20 mg tablet 20 mg PO DAILY #300 tabs 04/20/23 prednisone 20 mg tablet 40 mg (2 x 20 mg) PO DAILY #10 tabs 05/01/23 Allergies Allergy/AdvReac Type Severity Reaction Status Date / Time NSAIDS (Non-Steroidal Allergy Unknown Verified 04/23/23 11:34 Anti-Inflamma Wjzcpod-CFB-NeK Reductase AdvReac Severe LEG PAIN Verified 04/23/23 11:34 Inhibitor Review of Systems 2 Review of Systems: Yes all other systems are reviewed and are negative Neurologic: Denies Sensory deficit (Neuro) PMFSH Past Medical History Medical History Cough Respiratory failure with hypoxia Interstitial lung disease Depression, major, recurrent Dyslipidemia Osteoarthritis of multiple joints Acquired hypothyroidism Heart murmur Fibromyalgia Diabetes Surgical History Hx of tonsillectomy S/P appendectomy Hx of fusion of cervical spine S/P anal fissurectomy H/O hemorrhoidectomy S/P partial hysterectomy Family History Family History Brother Substance use disorder Son Substance use disorder Daughter Substance use disorder Social History Social History Household Members: Family Housing: House Do you presently have visiting nurse or other home services: No (states she's working on it.) Alcohol intake: never Patient Tobacco Use Status: Former Tobacco user Quit Date: 15 years ago Years Smoked: 20 +/- on and off Smoked in Last 30 Days: No e-Cigarette/Vaping Use: Never Used Second Hand Smoke Exposure: No Use of substances other than those prescribed or required for medical reasons: No Advance Directives: Yes Advance Directives on File: Yes Advance Directives Date on File: 02/01/23 service: No Current occupational status: retired Current occupation: right handed Cognitive needs: No Hearing needs: No Vision needs: Yes Physical Exam 2 Vital Signs: Vital Signs: Last Vital Signs Temp 99.5 F 05/04/23 17:26 Pulse 101 H 05/04/23 17:26 Resp 23 H 05/04/23 17:26 BP 134/59 L 05/04/23 17:26 Pulse Ox 97 05/04/23 17:26 O2 Del Method Oxymask 05/04/23 17:26 O2 Flow Rate 4 05/04/23 17:26 BMI result Body Mass Index 38.9 Const: Other: elderly female ill appearing, short of breath Orientation/consciousness: oriented to person Limitations: no limitations HEENT: Head: Yes normal to inspection Ears: external ears normal General nose exam: Normal external nose present Mouth: Normal oral and palatal mucosa present and oropharynx normal Throat: Yes posterior oropharynx normal Eyes: General: appearance normal, both eyes and all related structures Neck: Other: supple Neck: Yes normal visual inspection Chest: Chest palpation & inspection: normal inspection of the chest Resp: Other: severe shortness of breath, wheezing Cardio: Jugular venous distension: no JVD Rate: regular rate Rhythm: r egular rhythm Heart sounds: S1 normal heart sound present and S2 normal heart sound present GI: Inspection: Yes normal to inspection Palpation (GI): Soft to palpation, nontender and No hepatosplenomegaly present Auscultation: normal bowel sounds : General: Yes no CVA tenderness Back/Spine/Pelvis: Back: no CVA tenderness Skin: General skin exam: no rashes or lesions noted Neuro: General: oriented to person Cranial nerves: Yes CN's II-XII intact bilaterally Motor exam (neuro): 5/5 motor strength present throughout S ensory Exam: No Sensory deficit (Neuro) Extrem: General: Yes normal to inspection Psych: Appearance: grossly normal Course Reevaluation(s) Reevaluation #1: initially patient appeared to be having COPD exacerbation, given steroids and treatment which did infact improve her breathing, however, patient with some edema on xray and elevated BNP will admit, speak to nephrology for urgent dialysis and admit Time: 13:52 Reevaluation #2: I spent 40 minutes of critical care, with interventions, assessments, speaking to patient, consultants, and family. Time: 13:52 Time: 17:33 Additional Reevaluation(s): patient is having chills, temp 99.5, mucopurulent cough, tachycardic, not hypertensive, no LE edema, at this time CXR and BNP not 100% consistent with volume overload I am concerned with infectious process - at this time infection suspected given history and course will obtain PCR, lactic, cultures, start on antibiotics and admit. still pending Nephrology to call back but I do not think she warrants emergent HD Medications Administered Discontinued Medications Generic Name Dose Route Start Last Admin Trade Name Freq PRN Reason Stop Dose Admin Albuterol Sulfate 5 mg/ 0 mg 05/04/23 11:46 05/04/23 11:51 Albuterol/Ipratropium 3 ml INHALE 05/04/23 11:47 5 each ONCE ONE Administration Methylprednisolone Sodium Succinate 125 mg 05/04/23 11:40 05/04/23 12:23 Methylprednisolone Sod Succ 125 Mg/2 Ml Vial IVPUSH 05/04/23 11:41 125 mg ONCE ONE Administration Medical Decision Making Medical Decision Making [facility] Narrative: 82 yo female with ESRD on HD MWF last went Thursday, ILD, CHF, OA, has been dealing with chronic cough for a month + just had CT scan on 04/19 without pneumonia but has been on and off steroids by her doctor - she notes the cough has worsened and now she is having chills and more weak. She also just fell from weakness. She came in today with increased weakness and dyspnea - has recovered from bipap on sign out to me now on 5L NC. At this time clinically not volume overloaded but sig cough with rigors, chills, temp 99.5 and tachycardic with URI symptoms - will obtain infectious workup this was started after acute chagne at 537pm. Differential Diagnosis Differential Diagnoses: The differential diagnosis associated with the presentation includes (COPD exacerbation, pneumonia, renal failure, fluid overload) viral syndrome, bronchopneumonia Admission/Observation Consideration of admission/observation: Escalation of care including admission/observation considered (upon arrival patient was considered for admission) admit Consult Healthcare Provider Management of the patient was discussed with: Hospitalist and Teaching Fellow (nephrology) hospitalist aware will admit multiple calls to Dr. Dumas with no call back Lab Data MDM Lab Attestation statement: I reviewed the patient's lab results. (poor renal function. low bicarb, no CO2 retention on VBG) 05/04/23 12:14 05/04/23 12:14 Labs: Lab Results 05/04/23 05/04/23 05/04/23 Range/Units 12:14 12:21 14:03 WBC 15.6 H (4.8-10.8) X10*3/uL RBC 3.36 L (4.20-5.50) X10*6/uL Hgb 10.9 L (12.0-16.0) g/dl Hct 33.5 L (37.0-47.0) % MCV 99.7 H (80.0-98.0) fL MCH 32.4 (27.0-33.0) pg MCHC 32.5 (31.0-35.0) g/dl RDW 14.9 (11.0-16.0) % Plt Count 202 (160-400) X10*3/uL MPV 10.3 (9.4-12.3) fL Immature Gran % (Auto) 0.3 (0.0-0.4) % Neut % (Auto) 85.0 H (45-73) % Lymph % (Auto) 8.1 L (20-40) % Canadian % (Auto) 6.3 (2-11) % Eos % (Auto) 0.0 (0-4) % Baso % (Auto) 0.3 (0-2) % Lymph # (Auto) 1.3 (1.2-4.9) X10*3/uL Canadian # (Auto) 1.0 (0.1-1.2) X10*3/uL Eos # (Auto) 0.0 (0.0-0.4) X10*3/uL Baso # (Auto) 0.1 (0.0-0.2) X10*3/uL Abs Immat Gran (auto) 0.04 H (0.00-0.03) X10*3/uL Absolute Neuts (auto) 13.3 H (2.0-8.3) x10*3/uL Absolute Nucleated RBC 0.000 (0.0-0.012) X10*3/uL Nucleated RBC % (auto) 0.0 (0.0-0.2) /100WBC VBG pH 7.26 L (7.32-7.43) VBG pCO2 34 mmHg VBG pO2 92 mmHg VBG HCO3 15 L (22-26) mmol/L VBG O2 Saturation 96.0 % VBG Base Excess -10.0 mmol/L Sodium 135 (135-145) mmol/L Potassium 4.8 (3.3-5.1) mmol/L Chloride 105 (96-108) mmol/L Carbon Dioxide 16 L (22-29) mmol/L Anion Gap 19 (12-20) BUN 102 H (9-16) mg/dL Creatinine 5.40 H* (0.5-1.4) mg/dL Estim Creat Clear Calc 8.3 Estimated GFR 8 Random Glucose 215 H (60-115) mg/dL Calcium 8.4 (8.4-10.2) mg/dL Troponin I High Sens 27.2 H D 29.5 H (<3.5-17.0) ng/L B-Natriuretic Peptide 471 H (<100) pg/mL Independent Interpretation I performed an independent interpretation of an: EKG (sinus tachycardia 110, no st or twave changes) and Plain X-Ray (some mild fluid congestion/edema) Interpretation: no edema on CXR Independent Historian Clinical information obtained from an independent historian. History obtained from or confirmed by: EMS and Other (daughter) External Record Review External record reviewed: Inpatient record and Outpatient record Prescription Management I considered prescription management with: Antibiotic (no infection seen on cxr) Chronic Conditions Patient?s care impacted by: Hypertension and Other (renal failure on dialysis) Discharge Plan Discharge Clinical Impression: Bronchitis, Hypoxia Patient Disposition: Admitted As Inpatient Prescriptions: No Action (DME) wheelchair with footrests See Rx Instructions .Route .MEDSUPPLY Qty: 1 0RF Rx Instructions: As directed (DME) blood pressure test kit-medium Kit See Rx Instructions .Route Qty: 1 0RF Rx Instructions: [place] [place] comm[place] Kit See Rx Instructions .Route Qty: 1 0RF Rx Instructions: As directed (DME) grab bar for bathroom See Rx Instructions .Route .MEDSUPPLY Qty: 2 0RF Rx Instructions: As directed benzonatate 100 mg capsule 100 mg PO BID-TID PRN (Reason: cough) Qty: 90 1RF citalopram 20 mg tablet 20 mg PO DAILY Qty: 300 3RF sodium bicarbonate 325 mg tablet 650 mg PO BID allopurinol 100 mg tablet 100 mg PO DAILY levothyroxine 100 mcg tablet 100 mcg PO DAILY@0600 famotidine 20 mg tablet 20 mg PO DAILY pantoprazole 40 mg tablet,delayed release (DR/EC) 40 mg PO DAILY@0630 albuterol sulfate 90 mcg/actuation HFA aerosol inhaler 2 puff inhalation Q4-6H PRN (Reason: Shortness Of Breath Or Wheezing) cetirizine [Zyrtec] 10 mg Tablet 10 mg PO DAILY aspirin 81 mg Tablet,Delayed Release (Dr/Ec) 81 mg PO DAILY Qty: 90 0RF metoprolol tartrate 25 mg tablet 12.5 mg PO BID Qty: 180 0RF guaifenesin 400 mg tablet 800 mg PO TID benzonatate 100 mg capsule 100 mg PO TID PRN (Reason: cough) morphine 15 mg tablet 15 mg PO Q4H PRN (Reason: pain) atorvastatin 20 mg tablet 20 mg PO BEDTIME gabapentin 100 mg capsule 100 mg PO DAILY Qty: 30 0RF ezetimibe 10 mg tablet 10 mg PO DAILY Trelegy Ellipta 100-62.5-25 mcg blister with device 1 ea inhalation DAILY furosemide 40 mg Tablet 40 mg PO BID@0900,1800 Qty: 60 0RF Protocol: Hold for SBP< HOLD for SBP < : 90 prednisone 20 mg tablet 40 mg PO DAILY Qty: 10 0RF prednisone 20 mg tablet 40 mg PO DAILY Qty: 10 0RF ranolazine 500 mg tablet extended release 12 hr 500 mg PO BID 90 Days Qty: 180 3RF nitroglycerin 0.4 mg tablet, sublingual 0.4 mg sublingual Q5M PRN (Reason: chest pain) Qty: 30 5RF Rx Instructions: do not exceed 3 doses per episode
[2023-05-04 14:27] LABS: Troponin-I High Sensitivity 29.5 ng/L (<3.5-17.0)
--- NOTE | 2023-05-04 17:28 | PC.NURSE ---
MD BARNETT AT BEDSIDE, PT WITH CHILLS, DIAPHORESIS - AFEBRILE RECTALLY AT THIS TIME. VSS OTHERWISE PT TACHY AT 101, TACHYPNIC AT 23. REMAINS AT 97% ON AN OXYMASK 4L. PLAN TO COMPLETE BLOOD CULTURES AND START PT ON ABX. FAMILY AT BEDSIDE. PT AND FAMILY AWARE OF PLAN.
[2023-05-04] MEDS: cefEPime HCl 1 GM in 0.9 % Sodium Chloride 50 ML IV (18:13)
[2023-05-04] MEDS: Acetaminophen 325 MG TABLET 650 MG PO (18:13)
[2023-05-04 18:17] LABS: Influenza A PCR NEGATIVE (Negative); Influenza B PCR NEGATIVE (Negative); Resp Syncy Virus RNA Qual PCR NEGATIVE (Negative); SARS COV2 PCR INHOUSE NEGATIVE (Negative)
[2023-05-04 18:23] LABS: Lactic Acid 1.9 mmol/L (0.5-2.0)
[2023-05-04] MEDS: Azithromycin 500 MG in 0.9 % Sodium Chloride 250 ML 125 MG IV (18:47)
--- NOTE | 2023-05-04 19:14 | P.HPHOSP_ITS ---
History of Present Illness Date of Service: 05/04/23 <ALEX Edmondson - Last Filed: 05/04/23 21:13> Attending physician on admission: Brian Damon <ALEX Edmondson - Last Filed: 05/04/23 21:13> Chief Complaint: sob, cough <ALEX Edmondson - Last Filed: 05/04/23 21:13> 82-year-old female with history of NSTEMI, diastolic heart failure, chronic respiratory failure with hypoxia and hypercapnia on 4 L supplemental O2 at baseline, ESRD on dialysis MWF, COPD, interstitial lung disease, jyz-lklvsem-lmqnmmhuu type 2 diabetes, hyperlipidemia, hypothyroidism, restless leg syndrome who is severely obese with BMI greater than 38 presented to the ED earlier today for evaluation of dyspnea and worsening productive cough. She reports chronic cough with dark yellow sputum production and has been worsening over the last month. She has been seen by PCP and in ED and has been prescribed multiple courses of prednisone without effect. Yesterday, she reports her dyspnea worsened significantly. She states the shortness of breath is both at rest and with exertion. Due to feeling unwell, she missed dialysis last week once and again today. She denies any fevers at home, shaking chills, sore throat, sinus pain, sick contacts, abdominal pain, nausea, vomiting, urinary symptoms, diarrhea, lightheadedness, or palpitations. She states she does occasionally experience anginal chest pain and took a nitro this morning with good effect. Currently reporting pleuritic chest pain but denies any chest pressure. Upon EMS arrival, patient found to be hypoxic and placed on BiPAP. On arrival, patient tachycardic to 112, tachypneic to 35. No hypotension and patient is afebrile. She has been weaned from BiPAP to non-rebreather to OxyMask maintaining oximetry around 96%. She has a leukocytosis of 15.6. Mild macrocytic anemia. Creatinine 5440, baseline around 3.4-3.8. BUN 102. Electrolyte levels normal except for CO2 16. Random glucose 215. Lactic acid 1.9. Initial troponin 27.2, repeat 29.5. BNP 471. Procalcitonin 1.09. VBG with pH 7.26, pCO2 34, bicarb 15. Negative for influenza, COVID-19, RSV. Chest x-ray shows low lung volumes and interstitial lung disease similar to recent exams. Chest CT final read pending appears to have bilateral lower lobe consolidations. EKG shows sinus tachycardia, rate 108 with nonspecific T-wave abnormality in inferior leads unchanged from prior EKGs. In the ED, has received 125 mg IV methylprednisolone, DuoNeb with some improvement in work of breathing. She was also given empiric treatment with 1 g cefepime and 500 mg Zithromax. <ALEX Edmondson - Last Filed: 05/04/23 21:13> Review of Systems 2 Review of Systems: General: No fevers, malaise, unintentional weight loss HEENT: No blurred vision, diplopia. No sore throat, nasal congestion, rhinorrhea, sinus pain, ear pain Cardiovascular: No chest pressure, palpitations, or leg edema Respiratory: +shortness of breath, wheezing, cough GI: No abdominal pain, nausea, vomiting, diarrhea, constipation, melena, hematochezia : No dysuria, hematuria, increased urinary frequency, decreased urinary output MSK: No myalgia, back pain. +pleuritic cp Neuro: No headaches, weakness, paresthesias Skin: No rashes or lesions <ALEX Edmondson - Last Filed: 05/04/23 21:13> [facility] Medical History: Medical History (Updated 05/04/23 @ 19:47 by ALEX Edmondson) (HFpEF) heart failure with preserved ejection fraction ESRD needing dialysis NSTEMI (non-ST elevated myocardial infarction) Cough Respiratory failure with hypoxia Interstitial lung disease Depression, major, recurrent Dyslipidemia Osteoarthritis of multiple joints Acquired hypothyroidism Heart murmur Fibromyalgia Diabetes <ALEX Edmondson - Last Filed: 05/04/23 21:13> Family History: Family History Brother Substance use disorder Son Substance use disorder Daughter Substance use disorder <ALEX Edmondson - Last Filed: 05/04/23 21:13> Surgical History: Surgical History Hx of tonsillectomy S/P appendectomy Hx of fusion of cervical spine S/P anal fissurectomy H/O hemorrhoidectomy S/P partial hysterectomy <ALEX Edmondson - Last Filed: 05/04/23 21:13> Social History: Social History Household Members: Family Housing: House Do you presently have visiting nurse or other home services: No (states she's working on it.) Alcohol intake: never Patient Tobacco Use Status: Former Tobacco user Quit Date: 15 years ago Years Smoked: 20 +/- on and off Smoked in Last 30 Days: No e-Cigarette/Vaping Use: Never Used Second Hand Smoke Exposure: No Use of substances other than those prescribed or required for medical reasons: No Advance Directives: Yes Advance Directives on File: Yes Advance Directives Date on File: 02/01/23 Nutrition Risks: No Nutritional Risk service: No Current occupational status: retired Current occupation: right handed Cognitive needs: No Hearing needs: No Vision needs: Yes <ALEX Edmondson - Last Filed: 05/04/23 21:13> Meds Allergies/Adverse reactions: Allergies Allergy/AdvReac Type Severity Reaction Status Date / Time NSAIDS (Non-Steroidal Allergy Unknown Verified 04/23/23 11:34 Anti-Inflamma Kxkqiae-UMC-YvZ Reductase AdvReac Severe LEG PAIN Verified 04/23/23 11:34 Inhibitor <ALEX Edmondson - Last Filed: 05/04/23 21:13> Active Medications: Current Medications Acetaminophen (Acetaminophen 325 Mg Tablet) 650 mg PO Q6H PRN PRN Reason: Pain, Mild (Pain Scale 1-3) Albuterol/Ipratropium (Albuterol/Iprat 2.5/0.5mg 3 Ml Ampul.Neb) 3 ml INHALE RQ4H WHILE AWAKE INGRID Docusate Sodium (Docusate Sodium 100 Mg Capsule) 100 mg PO DAILY PRN PRN Reason: Constipation Heparin Sodium (Porcine) (Heparin Sodium,Porcine 5,000 Unit/Ml Vial) 5,000 unit SUBCUT Q12H INGRID Azithromycin 500 mg/ Sodium (Chloride) 250 mls @ 125 mls/hr IV ONCE ONE Stop: 05/04/23 19:21 Last Admin: 05/04/23 18:47 Dose: 125 mls/hr Levalbuterol HCl (Levalbuterol Hcl 1.25 Mg/3 Ml Vial.Neb) 1.25 mg INHALE Q2H PRN PRN Reason: Shortness of Breath/Wheezing Methylprednisolone Sodium Succinate (Methylprednisolone Sod Succ 40 Mg/Ml Vial) 40 mg IVPUSH Q12H INGRID Ondansetron HCl (Ondansetron Hcl 4 Mg/2 Ml Vial) 4 mg IVPUSH Q8H PRN PRN Reason: Nausea and Vomiting Sodium Chloride (0.9 % Sodium Chloride Flush 3 Ml Syringe) 3 ml IVFLUSH QSHIFT INGRID <ALEX Edmondson - Last Filed: 05/04/23 21:13> Home medications: Home Medications Medication Instructions Recorded Confirmed Last Taken Type albuterol sulfate 90 mcg/actuation 2 puff inhalation Q4H PRN 12/28/22 05/04/23 Unknown History aerosol inhaler Shortness Of Breath Or Wheezing famotidine 20 mg tablet 20 mg PO DAILY 12/28/22 05/04/23 01/23/23 09:00 History levothyroxine 100 mcg tablet 100 mcg PO DAILY@0600 12/28/22 05/04/23 05/03/23 History atorvastatin 20 mg tablet 20 mg PO BEDTIME 01/24/23 05/04/23 05/03/23 History fluticasone fur. 100 mcg-umeclid 1 ea inhalation DAILY 02/10/23 05/04/23 05/03/23 History 62.5 mcg-vilant 25 mcg inhalat.powder (Trelegy Ellipta) gabapentin 100 mg capsule 100 mg PO TID 05/04/23 05/04/23 05/03/23 History <ALEX Edmondson - Last Filed: 05/04/23 21:13> Physical Exam 2 Vital Signs and Narrative: Vital Signs: Last Vital Signs Temp 99.5 F 05/04/23 17:26 Pulse 101 H 05/04/23 17:26 Resp 23 H 05/04/23 17:26 BP 134/59 L 05/04/23 17:26 Pulse Ox 97 05/04/23 17:26 O2 Del Method Oxymask 05/04/23 17:26 O2 Flow Rate 4 05/04/23 17:26 BMI result Body Mass Index 38.9 <ALEX Edmondson - Last Filed: 05/04/23 21:13> Constitutional - Awake and Alert Eyes - PERRLA, EOMI Cardiovascular - S1S2, RRR, 1+ ble edema Respiratory - Normal lung expansion, Normal respiratory effort, mild respiratory distress when speaking, crackles BLL L>R Gastrointestinal - NT / ND; +BS; No rebound or guarding Extremities - no calf tenderness bilaterally, no swelling Skin - Warm/Dry Neurological - Alert & oriented x3 Psychological - Appropriate affect <ALEX Edmondson - Last Filed: 05/04/23 21:13> Results Labs CBC and Chem 7: 05/04/23 12:14 05/04/23 12:14 <ALEX Edmondson - Last Filed: 05/04/23 21:13> Labs: Laboratory Results - last 24 hr 05/04/23 05/04/23 05/04/23 12:14 12:21 17:25 MCV 99.7 H MCH 32.4 MCHC 32.5 RDW 14.9 Plt Count 202 MPV 10.3 Immature Gran % (Auto) 0.3 Neut % (Auto) 85.0 H Lymph % (Auto) 8.1 L [place] % (Auto) 6.3 Eos % (Auto) 0.0 Baso % (Auto) 0.3 Lymph # (Auto) 1.3 [place] # (Auto) 1.0 Eos # (Auto) 0.0 Baso # (Auto) 0.1 Abs Immat Gran (auto) 0.04 H Absolute Neuts (auto) 13.3 H Absolute Nucleated RBC 0.000 Nucleated RBC % (auto) 0.0 VBG pH 7.26 L VBG pCO2 34 VBG pO2 92 VBG HCO3 15 L VBG O2 Saturation 96.0 VBG Base Excess -10.0 Anion Gap 19 Estim Creat Clear Calc 8.3 Estimated GFR 8 Random Glucose 215 H Lactic Acid Calcium 8.4 B-Natriuretic Peptide 471 H Influenza Type A (PCR) NEGATIVE Influenza Type B (PCR) NEGATIVE RSV RNA Qual (PCR) NEGATIVE SARS-CoV-2 RNA (RT-PCR) NEGATIVE 05/04/23 17:57 MCV MCH MCHC RDW Plt Count MPV Immature Gran % (Auto) Neut % (Auto) Lymph % (Auto) [place] % (Auto) Eos % (Auto) Baso % (Auto) Lymph # (Auto) [place] # (Auto) Eos # (Auto) Baso # (Auto) Abs Immat Gran (auto) Absolute Neuts (auto) Absolute Nucleated RBC Nucleated RBC % (auto) VBG pH VBG pCO2 VBG pO2 VBG HCO3 VBG O2 Saturation VBG Base Excess Anion Gap Estim Creat Clear Calc Estimated GFR Random Glucose Lactic Acid 1.9 Calcium B-Natriuretic Peptide Influenza Type A (PCR) Influenza Type B (PCR) RSV RNA Qual (PCR) SARS-CoV-2 RNA (RT-PCR) <ALEX Edmondson - Last Filed: 05/04/23 21:13> Imaging Radiologist's Impressions: Impressions Chest X-Ray 05/04/23 12:42 IMPRESSION: Low lung volumes and interstitial lung disease similar to recent exams <ALEX Edmondson - Last Filed: 05/04/23 21:13> Assessment and Plan (1) Acute on chronic respiratory failure with hypoxemia: Status: Acute <ALEX Edmondson - Last Filed: 05/04/23 21:13> (2) ESRD needing dialysis: Status: Acute <ALEX Edmondson - Last Filed: 05/04/23 21:13> (3) Bronchitis: Status: Acute <ALEX Edmondson - Last Filed: 05/04/23 21:13> (4) Pneumonia: Status: Acute <ALEX Edmondson - Last Filed: 05/04/23 21:13> 82-year-old female with history of NSTEMI, diastolic heart failure, chronic respiratory failure with hypoxia and hypercapnia on 4 L supplemental O2 at baseline, ESRD on dialysis MWF, interstitial lung disease, dih-mapzfad-qdfiplalk type 2 diabetes, hyperlipidemia, hypothyroidism, restless leg syndrome who is severely obese admitted for acute copd exacerbation #Acute on chronic respiratory failure with hypoxemia- resolved on admission -2/2 acute bronchitis, pneumonia -Initially required bipap, weaned to oxymask -Continue baseline 4L supplemental O2 #Acute pneumonia with sepsis -leukocytosis (likely multifactorial related to steroid use and infection), tachycardia, tachypnea. Lactic acid normal. Renal function r/t esrd needing dialysis. No end organ damage or hypotension -ct chest radiology reading pending, but on initial review appears to have bll consolidations along with honeycombing -IV ceftriaxone and IV azithromycin (initiated 05/04) -sputum culture, Legionella antigen, and strep pneumo antigen pending -symptomatic management -follow cbc, cultures #Acute bronchitis with background ILD -negative for COVID-19, influenza, RSV -CXR negative for any acute pulmonary illness but shows low lung volumes -CT chest pending -Full respiratory viral panel pending -PCT 1.09 -IV methylprednisolone 40 mg b.i.d. -DuoNebs q.4h -Xopenex p.r.n. -IV azithromycin x3 days (initiated 05/04) for pleitropic effect #Non anion gap metabolic acidosis -r/t esrd -give 650mg bicarb x1, reeval am -follow bmp #ESRD on dialysis -typically on MWF schedule -creatinine 5.40, BUN 102 -nephrology consult #Chronic macrocytis anemia -vitamin b12 and folic acid levels pending -h/h above transfusion threshold # eqn-[id number]-giqlueihe type 2 diabetes -POC glucose -diabetic diet (NDD3) -Humalog on sliding scale #HFpEF -no acute exacerbetion, clinically euvolemic -BNP elevation likely cardiorenal #Elevated trops - initial 27, repeat 29 -likely demand secondary to hypoxia # hypothyroidism -continue levothyroxine # RLS -continue gabapentin #Severe obesity with BMI greater than 38 -patient has been working on weight loss, down about 10kg last 4month -encourage continued weight loss efforts DVT prophylaxis-heparin DNR/DNI Patient requires inpatient stay at least 2 midnights for management of acute respiratory failure secondary to acute pneumonia requiring iv abx in patient with significant chronic lung disease as well as ESRD needing dialysis <ALEX Edmondson - Last Filed: 05/04/23 21:13> 82-year-old female with history of NSTEMI, diastolic heart failure, chronic respiratory failure with hypoxia and hypercapnia on 4 L supplemental O2 at baseline, ESRD on dialysis MWF, interstitial lung disease, sws-eynuobt-wpsgsfynh type 2 diabetes, hyperlipidemia, hypothyroidism, restless leg syndrome who is severely obese admitted for acute copd exacerbation #Acute on chronic respiratory failure with hypoxemia- resolved on admission -2/2 acute bronchitis, pneumonia -Initially required bipap, weaned to oxymask -Continue baseline 4L supplemental O2 #Acute pneumonia with sepsis -leukocytosis (likely multifactorial related to steroid use and infection), tachycardia, tachypnea. Lactic acid normal. Renal function r/t esrd needing dialysis. No end organ damage or hypotension -ct chest radiology reading pending, but on initial review appears to have bll consolidations along with honeycombing -IV ceftriaxone and IV azithromycin (initiated 05/04) -sputum culture, Legionella antigen, and strep pneumo antigen pending -symptomatic management -follow cbc, cultures #Acute bronchitis with background ILD -negative for COVID-19, influenza, RSV -CXR negative for any acute pulmonary illness but shows low lung volumes -CT chest pending -Full respiratory viral panel pending -PCT 1.09 -IV methylprednisolone 40 mg b.i.d. -DuoNebs q.4h -Xopenex p.r.n. -IV azithromycin x3 days (initiated 05/04) for pleitropic effect #Non anion gap metabolic acidosis -r/t esrd -give 650mg bicarb x1, reeval am -follow bmp #ESRD on dialysis -typically on MWF schedule -creatinine 5.40, BUN 102 -nephrology consult #Chronic macrocytis anemia -vitamin b12 and folic acid levels pending -h/h above transfusion threshold # xrm-osvhvwf-akcaydbbz type 2 diabetes -POC glucose -diabetic diet (NDD3) -Humalog on sliding scale #HFpEF -no acute exacerbetion, clinically euvolemic #Elevated trops - initial 27, repeat 29 -likely demand secondary to hypoxia # hypothyroidism -continue levothyroxine # RLS -continue gabapentin #Severe obesity with BMI greater than 38 -patient has been working on weight loss, down about 10kg last 4month -encourage continued weight loss efforts DVT prophylaxis-heparin DNR/DNI Patient requires inpatient stay at least 2 midnights for management of acute respiratory failure secondary to acute pneumonia requiring iv abx in patient with significant chronic lung disease as well as ESRD needing dialysis <Brian Damon MD - Last Filed: 05/04/23 21:53> Time Spent With Patient Time: Total time managing care of this patient today ____ minutes. <ALEX Edmondson - Last Filed: 05/04/23 21:13> Quality Stroke Does the patient have a stroke diagnosis?: No <ALEX Edmondson - Last Filed: 05/04/23 21:13> VTE Prior VTE?: No <ALEX Edmondson - Last Filed: 05/04/23 21:13> VTE Risk Level:: Medical - moderate - high <ALEX Edmondson - Last Filed: 05/04/23 21:13> VTE Device Contraindication: Treatment Not Indicated <ALEX Edmondson - Last Filed: 05/04/23 21:13> VTE Drug Contraindication: N/A - Med Ordered <ALEX Edmondson - Last Filed: 05/04/23 21:13>
--- NOTE | 2023-05-04 19:34 | PHA.MEDREC ---
Pharmacy Consult ? Medication Reconciliation Pharmacy has completed the medication reconciliation.Spoke to patient who knew medication they were taking when listing them off. Doesn't match claim history but patient says they are taking and have extras
[2023-05-04] MEDS: Albuterol/Iprat 2.5/0.5MG 3 ML AMPUL.NEB INHALE (19:43)
[2023-05-04 19:53] LABS: Procalcitonin 1.09 ng/mL
[2023-05-04] MEDS: methylPREDNISolone Sod Succ 40 MG/ML VIAL IVPUSH (20:55)
[2023-05-04] MEDS: Heparin Sodium,Porcine 5,000 UNIT/ML VIAL 5000 UNIT SUBCUT (20:55)
[2023-05-04] MEDS: Ranolazine 500 MG TAB.ER.12H PO (21:05)
[2023-05-04] MEDS: Metoprolol Tartrate 12.5 MG HALFTAB PO (21:06)
[2023-05-04] MEDS: Atorvastatin Calcium 20 MG TABLET PO (21:06)
[2023-05-04] MEDS: Gabapentin 100 MG CAPSULE PO (21:06)
[2023-05-04] MEDS: Sodium Bicarbonate 650 MG TABLET PO (21:06)
[2023-05-04] MEDS: cefTRIAXone sodium 1 GM in 0.9 % Sodium Chloride 50 ML IV (21:26)
[2023-05-04] MEDS: Insulin Lispro 100 UNIT/ML 3 ML VIAL SUBCUT (21:47)
[2023-05-04 21:48] LABS: Glucose, Whole Blood 201 mg/dL (60-115)
--- NOTE | 2023-05-04 23:43 | PC.NURSE ---
report given to RN, pt will be transported upstairs
[2023-05-05] VITALS (13 sets, daily range): BP systolic 103–148; BP diastolic 53–64; PULSE 63–87; RESP 15–22; TEMP 36.3–37.1; O2SAT 92–100; BMI 38.5
[2023-05-05] MEDS: Albuterol/Iprat 2.5/0.5MG 3 ML AMPUL.NEB INHALE ×4 (00:55→19:40)
[2023-05-05] MEDS: Levothyroxine Sodium 100 MCG TABLET PO (06:10)
[2023-05-05 07:35] LABS: Folate 5.8 ng/mL (> or = 4.0); Vitamin B12 572 pg/mL (200-900)
[2023-05-05 07:36] LABS: Glucose, Whole Blood 133 mg/dL (60-115)
[2023-05-05] MEDS: Escitalopram Oxalate 10 MG TABLET PO (08:47)
[2023-05-05] MEDS: Ranolazine 500 MG TAB.ER.12H PO ×2 (08:47→21:23)
[2023-05-05] MEDS: Gabapentin 100 MG CAPSULE PO ×3 (08:47→21:23)
[2023-05-05] MEDS: Heparin Sodium,Porcine 5,000 UNIT/ML VIAL 5000 UNIT SUBCUT ×2 (08:47→21:23)
[2023-05-05] MEDS: Famotidine 20 MG TABLET PO (08:47)
[2023-05-05] MEDS: methylPREDNISolone Sod Succ 40 MG/ML VIAL IVPUSH ×2 (08:47→21:23)
[2023-05-05] MEDS: Aspirin Enteric Coated 81 MG TABLET.DR PO (08:47)
[2023-05-05] MEDS: 0.9 % Sodium Chloride Flush 3 ML SYRINGE IVFLUSH ×2 (08:48→17:11)
--- NOTE | 2023-05-05 09:47 | MHC.CM.PN ---
IMM 05/05. Pt lives at home in an in-law apartment attached to her granddaughters home. Pt uses a wheelchair and has difficulty ambulating. Pts great granddaughter is her primary caregiver and feeds and washes her. Pt goes to the [facility] for HD on via van through insurance company. Pts goal is to return home with family support vs with new services. Pt states she had [facility] in the past, but is not currently active with them. Transport will be via [employer]. HCP on file and verified. Pt requested this CM call her daughter to give an update. PCP: Dr. Christina Paiz
[2023-05-05 11:07] LABS: Adenovirus PCR Not Detected (Not Detect.); Bordetella parapertussis PCR Not Detected (Not Detect.); Bordetella pertussis PCR Not Detected (Not Detect.); Chlamydia pneumoniae PCR Not Detected (Not Detect.); Coronavirus 229E PCR Not Detected (Not Detect.); Coronavirus HKU1 PCR Not Detected (Not Detect.); Coronavirus NL63 PCR Not Detected (Not Detect.); Coronavirus OC43 PCR Not Detected (Not Detect.); Human metapneumovirus PCR Not Detected (Not Detect.); Influenza A PCR Not Detected (Not Detect.); Influenza B PCR Not Detected (Not Detect.); Mycoplasma pneumoniae PCR Not Detected (Not Detect.); Parainfluenza 1 PCR Not Detected (Not Detect.); Parainfluenza 2 PCR Not Detected (Not Detect.); Parainfluenza 3 PCR Not Detected (Not Detect.); Parainfluenza 4 PCR Not Detected (Not Detect.); RSV PCR Not Detected (Not Detect.); Rhino/Enterovirus PCR Detected (Not Detect.)
[2023-05-05 11:12] LABS: SARS-CoV-2 PCR Not Detected (Not Detect.)
[2023-05-05 11:29] LABS: Glucose, Whole Blood 235 mg/dL (60-115)
--- NOTE | 2023-05-05 13:12 | P.PNIM_ITS ---
Subjective Subjective Date of Service: 05/05/23 Interval History: Feeling better still feels short of breath and coughing, no fevers chills since admission currently on 5 L of oxygen, baseline 4 L home O2, denies PND, no orthopnea no other acute events overnight, no nausea ,no vomiting, tolerating diet. Review of Systems All other system reviewed and negative Physical Exam 2 Vital Signs: Vital Signs: Last Vital Signs Temp 97.8 F 05/05/23 07:23 Pulse 81 05/05/23 07:51 Resp 17 05/05/23 07:52 BP 123/60 05/05/23 07:23 Pulse Ox 96 05/05/23 07:23 O2 Del Method CPAP 05/05/23 07:23 O2 Flow Rate 4 05/05/23 00:00 FiO2 30 05/05/23 07:23 BMI result Body Mass Index 38.5 Const: Other: Constitutional : A lert, oriented, i n no respiratory d istress Neck : Nor mal inspection, Weber pple Cardiovascula r : RRR, S1 S2, no lower extremity e lavinia Respiratory : Bilateral basila r dry crackles, co arse breath sound no use of accessor y muscles Gastroin testinal: soft, N ormal bowel sounds , Non tender Skin : Warm, Dry Neurol ogical : Alert & o riented x3, No foc al deficit Psych a ppropriate affect Objective Data Active Medications Acetaminophen (Acetaminophen 325 Mg Tablet) 650 mg PO Q6H PRN PRN Reason: Pain, Mild (Pain Scale 1-3) Albuterol Sulfate (Albuterol Sulfate 90 Mcg 8 Gm Inhaler) 2 puff INHALE Q4H PRN PRN Reason: Shortness Of Breath Or Wheezing Albuterol/Ipratropium (Albuterol/Iprat 2.5/0.5mg 3 Ml Ampul.Neb) 3 ml INHALE RQ4H WHILE AWAKE [facility]CLUDES [facility] Last Admin: 05/05/23 11:15 Dose: Not Given Documented By: ALEX Non-Admin Reason: Off unit: Dialysis Aspirin (Aspirin Enteric Coated 81 Mg Tablet.) 81 mg PO DAILY [facility]ES [facility] Last Admin: 05/05/23 08:47 Dose: 81 mg Documented By: TRACEE Atorvastatin Calcium (Atorvastatin Calcium 20 Mg Tablet) 20 mg PO BEDTIME [facility]CLUD[facility] Last Admin: 05/04/23 21:06 Dose: 20 mg Documented By: SAMANTHA Dextrose (Dextrose 50 % 25 Gm/50 Ml Syringe) 25 gm IVPUSH Q15M PRN; Protocol PRN Reason: per Hypoglycemia Standing Ord. Docusate Sodium (Docusate Sodium 100 Mg Capsule) 100 mg PO DAILY PRN PRN Reason: Constipation Escitalopram Oxalate (Escitalopram Oxalate 10 Mg Tablet) 10 mg PO DAILY COUNT [facility]CLUDES [facility] Last Admin: 05/05/23 08:47 Dose: 10 mg Documented By: TRACEE Famotidine (Famotidine 20 Mg Tablet) 20 mg PO DAILY COUNT [facility]CLUDES [facility] Last Admin: 05/05/23 08:47 Dose: 20 mg Documented By: TRACEE Fluticasone/Umeclidinium/Vilanterol (Fluticasone/Umeclidinium/Vilanterol 100/62.5/25 Blst.W.Dev) 1 puff INHALE RDAILY COUNT [facility]CLUDES [facility] Last Admin: 05/05/23 07:51 Dose: Not Given Documented By: ALEX Non-Admin Reason: Med Not Available Gabapentin (Gabapentin 100 Mg Capsule) 100 mg PO TID [facility] Last Admin: 05/05/23 08:47 Dose: 100 mg Documented By: TRACEE Glucose (Glucose Gel 15 Gm Gel..Gram.) 15 gm PO Q15M PRN; Protocol PRN Reason: per Hypoglycemia Standing Ord. Heparin Sodium (Porcine) (Heparin Sodium,Porcine 5,000 Unit/Ml Vial) 5,000 unit SUBCUT Q12H [facility]CLUDES [facility] Last Admin: 05/05/23 08:47 Dose: 5,000 unit Documented By: TRACEE Ceftriaxone Sodium 1 gm/ (Sodium Chloride) 50 mls @ 100 mls/hr IV Q24H [facility]CLUDES [facility] Last Infusion: 05/04/23 22:12 Dose: Infused Documented By: SAMANTHA Azithromycin 500 mg/ Sodium (Chloride) 250 mls @ 125 mls/hr IV Q24H COUNT [facility]CLUDES [facility] Insulin Human Lispro (Insulin Lispro 100 Unit/Ml 3 Ml Vial) 0 unit SUBCUT QIDACHS COUNT INCLUDES THE [facility]; Protocol Last Admin: 05/05/23 07:38 Dose: Not Given Documented By: TRACEE Non-Admin Reason: No Insulin Coverage Levalbuterol HCl (Levalbuterol Hcl 1.25 Mg/3 Ml Vial.Neb) 1.25 mg INHALE Q2H PRN PRN Reason: Shortness of Breath/Wheezing Levothyroxine Sodium (Levothyroxine Sodium 100 Mcg Tablet) 100 mcg PO DAILY@0600 [facility]CLUD[facility] Last Admin: 05/05/23 06:10 Dose: 100 mcg Documented By: MARCIAL Lidocaine HCl (Lidocaine Hcl 1 % Mpf 5 Ml Vial) 5 ml SUBCUT ONCE ONE Stop: 05/06/23 11:36 Methylprednisolone Sodium Succinate (Methylprednisolone Sod Succ 40 Mg/Ml Vial) 40 mg IVPUSH Q12H COUNT INCLUDES [facility] Last Admin: 05/05/23 08:47 Dose: 40 mg Documented By: TRACEE Nitroglycerin (Nitroglycerin 0.4 Mg Tab.Subl) 0.4 mg SUBLINGUAL Q5M PRN PRN Reason: chest pain Ondansetron HCl (Ondansetron Hcl 4 Mg/2 Ml Vial) 4 mg IVPUSH Q8H PRN PRN Reason: Nausea and Vomiting Ranolazine (Ranolazine 500 Mg Tab.Er.12h) 500 mg PO BID COUNT INCLUDES [facility] Last Admin: 05/05/23 08:47 Dose: 500 mg Documented By: TRACEE Sodium Chloride (0.9 % Sodium Chloride Flush 3 Ml Syringe) 3 ml IVFLUSH QSHIFT COUNT INCLUDES THE [facility] Last Admin: 05/05/23 08:48 Dose: 3 ml Documented By: TRACEE Labs 05/04/23 12:14 05/04/23 12:14 Labs: Laboratory Results - last 24 hr 05/04/23 05/04/23 05/04/23 14:03 17:25 17:57 POC Glucose Lactic Acid 1.9 Vitamin B12 Folate Procalcitonin 1.09 Respiratory Panel Green Adenovirus (Rapid PCR) B.pert (TEM-PCR) B.parapertussis DNA PCR C. pneumoniae DNA (PCR) Coronavirus OC43 (PCR) Coronavirus HKU1 (PCR) Coronavirus 229E (PCR) Coronavirus NL63 (PCR) Human Metapneumovir PCR Influenza A (RT-PCR) Influenza Type A (PCR) NEGATIVE Influenza B (RT-PCR) Influenza Type B (PCR) NEGATIVE M. pneumoniae (PCR) Parainfluenza 1 (PCR) Parainfluenza 2 (PCR) Parainfluenza 3 (PCR) Parainfluenza 4 (PCR) RSV (PCR) RSV RNA Qual (PCR) NEGATIVE Entero/Rhino (PCR) SARS-CoV-2 RNA (RT-PCR) NEGATIVE 05/04/23 05/05/23 05/05/23 21:42 06:36 07:21 POC Glucose 201 H 133 H Lactic Acid Vitamin B12 572 Folate 5.8 Procalcitonin Respiratory Panel Green Adenovirus (Rapid PCR) B.pert (TEM-PCR) B.parapertussis DNA PCR C. pneumoniae DNA (PCR) Coronavirus OC43 (PCR) Coronavirus HKU1 (PCR) Coronavirus 229E (PCR) Coronavirus NL63 (PCR) Human Metapneumovir PCR Influenza A (RT-PCR) Influenza Type A (PCR) Influenza B (RT-PCR) Influenza Type B (PCR) M. pneumoniae (PCR) Parainfluenza 1 (PCR) Parainfluenza 2 (PCR) Parainfluenza 3 (PCR) Parainfluenza 4 (PCR) RSV (PCR) RSV RNA Qual (PCR) Entero/Rhino (PCR) SARS-CoV-2 RNA (RT-PCR) 05/05/23 05/05/23 10:00 11:24 POC Glucose 235 H Lactic Acid Vitamin B12 Folate Procalcitonin Respiratory Panel Green See Note Adenovirus (Rapid PCR) Not Detected B.pert (TEM-PCR) Not Detected B.parapertussis DNA PCR Not Detected C. pneumoniae DNA (PCR) Not Detected Coronavirus OC43 (PCR) Not Detected Coronavirus HKU1 (PCR) Not Detected Coronavirus 229E (PCR) Not Detected Coronavirus NL63 (PCR) Not Detected Human Metapneumovir PCR Not Detected Influenza A (RT-PCR) Not Detected Influenza Type A (PCR) Influenza B (RT-PCR) Not Detected Influenza Type B (PCR) M. pneumoniae (PCR) Not Detected Parainfluenza 1 (PCR) Not Detected Parainfluenza 2 (PCR) Not Detected Parainfluenza 3 (PCR) Not Detected Parainfluenza 4 (PCR) Not Detected RSV (PCR) Not Detected RSV RNA Qual (PCR) Entero/Rhino (PCR) Detected A SARS-CoV-2 RNA (RT-PCR) Not Detected Assessment and Plan (1) Acute on chronic respiratory failure with hypoxemia: Status: Acute (2) ESRD needing dialysis: Status: Acute (3) Pneumonia: Status: Acute Plan 82-year-old female with history of NSTEMI, diastolic heart failure, chronic respiratory failure with hypoxia and hypercapnia on 4 L supplemental O2 at baseline, ESRD on dialysis MWF, interstitial lung disease, dma-mbzntfk-ydfuixubs type 2 diabetes, hyperlipidemia, hypothyroidism, restless leg syndrome who is severely obese admitted for acute copd exacerbation #Acute on chronic respiratory failure with hypoxemia due to sepsis/ bilateral LL pneumonia and viral infection with rhino and entero virus -Initially required bipap, weaned to oxymask now on 5 L of supplemental oxygen, baseline 4 L -leukocytosis (likely multifactorial related to steroid use and infection), tachycardia, tachypnea. Lactic acid normal. Renal function r/t esrd needing dialysis. No end organ damage or hypotension -ct chest showed bilateral consolidation and a new 1 cm left upper lobe nodule, PCT 1.09 -IV ceftriaxone and IV azithromycin (initiated 05/04) -sputum culture, Legionella antigen, and strep pneumo antigen pending -symptomatic management -follow cbc, cultures #ILD exacerbation due to bacterial pneumonia and viral infection with rhino and enterovirus -continue IV methylprednisolone 40 mg b.i.d.,DuoNebs q.4h, wean steroids slowly -Xopenex p.r.n. add cough medication #Non anion gap metabolic acidosis -r/t esrd ,follow bmp #ESRD on dialysis -seen by Nephrology typically on MWF schedule, skipped hemodialysis, seen by Nephrology will undergo hemodialysis today and likely tomorrow -creatinine 5.40, BUN 102 #Chronic macrocytis anemia -vitamin b12 and folic acid levels normal,h/h above transfusion threshold # dla-faxzyio-fcupsruwu type 2 diabetes -elevated blood sugars continue diabetic diet and insulin sliding scale #HFpEF -no acute exacerbetion, clinically euvolemic, elevated BNP due to esrd. #Elevated trops - initial 27, repeat 29 ,likely demand secondary to hypoxia # hypothyroidism -continue levothyroxine # RLS -continue gabapentin #Severe obesity with BMI greater than 38, working on weight loss, down about 10kg last 4month, encourage continued weight loss efforts DVT prophylaxis-heparin DNR/DNI Patient requires continued inpatient hospitalization for management of acute respiratory failure secondary to acute pneumonia requiring iv abx with significant chronic lung disease as well as ESRD needing dialysis Time Spent With Patient Time: Total time managing care of this patient today ____ minutes. Quality Stroke Does the patient have a stroke diagnosis?: No VTE Prior VTE?: No VTE Risk Level:: Medical - moderate - high VTE Device Contraindication: Treatment Not Indicated VTE Drug Contraindication: N/A - Med Ordered
[2023-05-05 15:39] LABS: Glucose, Whole Blood 131 mg/dL (60-115)
[2023-05-05] MEDS: Azithromycin 500 MG in 0.9 % Sodium Chloride 250 ML 125 MG IV (17:11)
[2023-05-05 19:12] LABS: Glucose, Whole Blood 272 mg/dL (60-115)
[2023-05-05] MEDS: Atorvastatin Calcium 20 MG TABLET PO (21:23)
[2023-05-05] MEDS: Insulin Lispro 100 UNIT/ML 3 ML VIAL SUBCUT (21:23)
[2023-05-05] MEDS: Throat Lozenge, Medicated LOZENGE 1 LOZENGE MUCOUS MEM (21:25)
--- NOTE | 2023-05-05 21:48 | P.PNNP_ITS ---
Subjective Subjective Date of Service: 05/05/23 Interval history: Seen on Hd Sleepy Physical Exam 2 Vital Signs: Vital Signs: Last Vital Signs Temp 97.7 F 05/05/23 19:02 Pulse 85 05/05/23 19:40 Resp 16 05/05/23 19:40 BP 138/60 05/05/23 19:02 Pulse Ox 100 05/05/23 19:02 O2 Del Method Oxymask 05/05/23 19:02 O2 Flow Rate 4 05/05/23 00:00 FiO2 30 05/05/23 07:23 BMI result Body Mass Index 38.5 Const: Other: Constitutional : A lert, oriented, i n no respiratory d istress Neck : Nor mal inspection, Weber pple Cardiovascula r : RRR, S1 S2, no lower extremity e lavinia Respiratory : Bilateral basila r dry crackles, co arse breath sound no use of accessor y muscles Gastroin testinal: soft, N ormal bowel sounds , Non tender Skin : Warm, Dry Neurol ogical : Alert & o riented x3, No foc al deficit Psych a ppropriate affect Objective Data Labs 05/04/23 12:14 05/04/23 12:14 Labs: Laboratory Results - last 24 hr 05/04/23 05/05/23 05/05/23 21:42 06:36 07:21 POC Glucose 201 H 133 H Vitamin B12 572 Folate 5.8 Respiratory Panel Green Adenovirus (Rapid PCR) B.pert (TEM-PCR) B.parapertussis DNA PCR C. pneumoniae DNA (PCR) Coronavirus OC43 (PCR) Coronavirus HKU1 (PCR) Coronavirus 229E (PCR) Coronavirus NL63 (PCR) Human Metapneumovir PCR Influenza A (RT-PCR) Influenza B (RT-PCR) M. pneumoniae (PCR) Parainfluenza 1 (PCR) Parainfluenza 2 (PCR) Parainfluenza 3 (PCR) Parainfluenza 4 (PCR) RSV (PCR) Entero/Rhino (PCR) SARS-CoV-2 RNA (RT-PCR) 05/05/23 05/05/23 05/05/23 10:00 11:24 15:35 POC Glucose 235 H 131 H Vitamin B12 Folate Respiratory Panel Green See Note Adenovirus (Rapid PCR) Not Detected B.pert (TEM-PCR) Not Detected B.parapertussis DNA PCR Not Detected C. pneumoniae DNA (PCR) Not Detected Coronavirus OC43 (PCR) Not Detected Coronavirus HKU1 (PCR) Not Detected Coronavirus 229E (PCR) Not Detected Coronavirus NL63 (PCR) Not Detected Human Metapneumovir PCR Not Detected Influenza A (RT-PCR) Not Detected Influenza B (RT-PCR) Not Detected M. pneumoniae (PCR) Not Detected Parainfluenza 1 (PCR) Not Detected Parainfluenza 2 (PCR) Not Detected Parainfluenza 3 (PCR) Not Detected Parainfluenza 4 (PCR) Not Detected RSV (PCR) Not Detected Entero/Rhino (PCR) Detected A SARS-CoV-2 RNA (RT-PCR) Not Detected 05/05/23 19:06 POC Glucose 272 H Vitamin B12 Folate Respiratory Panel Green Adenovirus (Rapid PCR) B.pert (TEM-PCR) B.parapertussis DNA PCR C. pneumoniae DNA (PCR) Coronavirus OC43 (PCR) Coronavirus HKU1 (PCR) Coronavirus 229E (PCR) Coronavirus NL63 (PCR) Human Metapneumovir PCR Influenza A (RT-PCR) Influenza B (RT-PCR) M. pneumoniae (PCR) Parainfluenza 1 (PCR) Parainfluenza 2 (PCR) Parainfluenza 3 (PCR) Parainfluenza 4 (PCR) RSV (PCR) Entero/Rhino (PCR) SARS-CoV-2 RNA (RT-PCR) Microbiology Microbiology Results: Microbiology 05/04/23 17:45 Blood - Venous Blood Culture - Preliminary No growth after 24 hours. 05/04/23 17:57 Blood - Venous Blood Culture - Preliminary No growth after 24 hours. Procedures Date of Service Date of Service: 05/05/23 Assessment & Plan Assessment and plan (1) ESRD needing dialysis: Status: Acute (2) Acute on chronic respiratory failure with hypoxemia: Status: Acute Assessment and Plan: 82-year-old female with history of NSTEMI, diastolic heart failure, chronic respiratory failure with hypoxia and hypercapnia on 4 L supplemental O2 at baseline, ESRD on dialysis MWF, interstitial lung disease, exn-wptwgyv-bndjqilrj type 2 diabetes, hyperlipidemia, hypothyroidism, restless leg syndrome who is severely obese admitted for acute copd exacerbation 1. ESRD on HD 2. Acute on chronic respiratory failure with hypoxemia due to sepsis/ bilateral LL pneumonia and viral infection with rhino and entero virus 3. MEt acidosis 4. Anemia Continue HD Pt missed HD yesterday Will bring back pt for HD in Am Volume removal as tolerated IV ceftriaxone and IV azithromycin No need for Epo Thx Dr. Dumas DNR/DNI Time Spent With Patient Time: Total time managing care of this patient today ____ minutes. Progress Note: Quality Stroke Does the patient have a stroke diagnosis?: No
[2023-05-06] VITALS (7 sets, daily range): BP systolic 107–128; BP diastolic 55–62; PULSE 77–89; RESP 18–20; TEMP 36.2–37.2; O2SAT 94–98
[2023-05-06] MEDS: cefTRIAXone sodium 1 GM in 0.9 % Sodium Chloride 50 ML IV ×2 (00:02→20:34)
[2023-05-06] MEDS: Throat Lozenge, Medicated LOZENGE 1 LOZENGE MUCOUS MEM ×3 (00:03→10:35)
[2023-05-06] MEDS: guaiFENesin DM 100/10/5 ML 5 ML SYRUP 10 ML PO ×2 (00:52→10:35)
[2023-05-06] MEDS: Levothyroxine Sodium 100 MCG TABLET PO (05:35)
[2023-05-06 07:20] LABS: Anion Gap 21 (12-20); Blood Urea Nitrogen 83 mg/dL (9-16); Calcium 8.4 mg/dL (8.4-10.2); Carbon Dioxide 17 mmol/L (22-29); Chloride 104 mmol/L (96-108); Creatinine Clr Calc Pharmacy 10.4; Estimated Glomerular Filt Rate 10; Glucose Random 181 mg/dL (60-115); Potassium 4.7 mmol/L (3.3-5.1); Sodium 137 mmol/L (135-145)
[2023-05-06 07:42] LABS: Glucose, Whole Blood 146 mg/dL (60-115)
[2023-05-06] MEDS: Acetaminophen 325 MG TABLET 650 MG PO (10:35)
[2023-05-06] MEDS: methylPREDNISolone Sod Succ 40 MG/ML VIAL IVPUSH ×2 (10:35→21:20)
[2023-05-06] MEDS: Gabapentin 100 MG CAPSULE PO ×3 (10:36→20:33)
[2023-05-06] MEDS: Heparin Sodium,Porcine 5,000 UNIT/ML VIAL 5000 UNIT SUBCUT ×2 (10:36→20:33)
[2023-05-06] MEDS: Aspirin Enteric Coated 81 MG TABLET.DR PO (10:36)
[2023-05-06] MEDS: Ranolazine 500 MG TAB.ER.12H PO ×2 (10:36→20:33)
[2023-05-06] MEDS: Escitalopram Oxalate 10 MG TABLET PO (10:36)
[2023-05-06] MEDS: 0.9 % Sodium Chloride Flush 3 ML SYRINGE IVFLUSH ×3 (10:36→20:34)
[2023-05-06] MEDS: Famotidine 20 MG TABLET PO (10:36)
[2023-05-06 10:59] LABS: Glucose, Whole Blood 156 mg/dL (60-115)
[2023-05-06] MEDS: Insulin Lispro 100 UNIT/ML 3 ML VIAL SUBCUT ×3 (11:01→20:34)
--- NOTE | 2023-05-06 14:03 | P.PNIM_ITS ---
Subjective Subjective Date of Service: 05/06/23 Interval History: Being followed for COPD exacerbation/pneumonia and rhino/entero virus infection patient seen at hemodialysis complaining of shortness of breath and congested cough, chest pain with coughing denies fevers, no chills, no other acute events overnight, remain on 5 L of OxyMask Review of Systems All other system reviewed and negative Physical Exam 2 Vital Signs: Vital Signs: Last Vital Signs Temp 97.2 F 05/06/23 11:03 Pulse 89 05/06/23 11:03 Resp 20 05/06/23 11:03 BP 128/60 05/06/23 11:03 Pulse Ox 95 05/06/23 11:03 O2 Del Method Nasal Cannula, Ox ymask 05/06/23 11:03 O2 Flow Rate 4 05/06/23 11:03 FiO2 94 05/06/23 03:14 BMI result Body Mass Index 38.5 Const: Other: Constitutional : Alert, oriented, in no respiratory distress Neck : Normal inspection, Supple Cardiovascular : RRR, S1 S2, no lower extremity edema Respiratory : Bilateral basilar dry crackles, coarse breath sound, no use of accessory muscles Gastrointestinal: soft, Normal bowel sounds, Non tender Skin : Warm, Dry Neurological : Alert & oriented x3, No focal deficit Psych appropriate affect Objective Data Active Medications Acetaminophen (Acetaminophen 325 Mg Tablet) 650 mg PO Q6H PRN PRN Reason: Pain, Mild (Pain Scale 1-3) Last Admin: 05/06/23 10:35 Dose: 650 mg Documented By: ROSA Albuterol Sulfate (Albuterol Sulfate 90 Mcg 8 Gm Inhaler) 2 puff INHALE Q4H PRN PRN Reason: Shortness Of Breath Or Wheezing Albuterol/Ipratropium (Albuterol/Iprat 2.5/0.5mg 3 Ml Ampul.Neb) 3 ml INHALE RQ4H WHILE AWAKE [facility] Last Admin: 05/06/23 11:46 Dose: Not Given Documented By: LEXX Non-Admin Reason: Patient Refused Aspirin (Aspirin Enteric Coated 81 Mg Tablet.) 81 mg PO DAILY [facility] Last Admin: 05/06/23 10:36 Dose: 81 mg Documented By: ROSA Atorvastatin Calcium (Atorvastatin Calcium 20 Mg Tablet) 20 mg PO BEDTIME [facility] Last Admin: 05/05/23 21:23 Dose: 20 mg Documented By: DEJUAN Benzocaine (Throat Lozenge, Medicated Lozenge) 1 lozenge MUCOUS MEM Q2H PRN PRN Reason: Sore Throat Last Admin: 05/06/23 10:35 Dose: 1 lozenge Documented By: ROSA Dextrose (Dextrose 50 % 25 Gm/50 Ml Syringe) 25 gm IVPUSH Q15M PRN; Protocol PRN Reason: per Hypoglycemia Standing Ord. Docusate Sodium (Docusate Sodium 100 Mg Capsule) 100 mg PO DAILY PRN PRN Reason: Constipation Escitalopram Oxalate (Escitalopram Oxalate 10 Mg Tablet) 10 mg PO DAILY [facility] Last Admin: 05/06/23 10:36 Dose: 10 mg Documented By: ROSA Famotidine (Famotidine 20 Mg Tablet) 20 mg PO DAILY [facility] Last Admin: 05/06/23 10:36 Dose: 20 mg Documented By: ROSA Fluticasone/Umeclidinium/Vilanterol (Fluticasone/Umeclidinium/Vilanterol 100/62.5/25 Blst.W.Dev) 1 puff INHALE RDAILY [facility] Last Admin: 05/06/23 08:13 Dose: Not Given Documented By: LEXX Non-Admin Reason: pharmacy called Gabapentin (Gabapentin 100 Mg Capsule) 100 mg PO TID [facility] Last Admin: 05/06/23 10:36 Dose: 100 mg Documented By: ROSA Glucose (Glucose Gel 15 Gm Gel..Gram.) 15 gm PO Q15M PRN; Protocol PRN Reason: per Hypoglycemia Standing Ord. Guaifenesin/Dextromethorphan (Guaifenesin Dm 100/10/5 Ml 5 Ml Syrup) 10 ml PO Q6H PRN PRN Reason: cough Last Admin: 05/06/23 10:35 Dose: 10 ml Documented By: ROSA Heparin Sodium (Porcine) (Heparin Sodium,Porcine 5,000 Unit/Ml Vial) 5,000 unit SUBCUT Q12H [facility] Last Admin: 05/06/23 10:36 Dose: 5,000 unit Documented By: ROSA Ceftriaxone Sodium 1 gm/ (Sodium Chloride) 50 mls @ 100 mls/hr IV Q24H [facility] Last Infusion: 05/06/23 01:06 Dose: Infused Documented By: DEJUAN Azithromycin 500 mg/ Sodium (Chloride) 250 mls @ 125 mls/hr IV Q24H [facility] Last Infusion: 05/05/23 20:49 Dose: Infused Documented By: DEJUAN Insulin Human Lispro (Insulin Lispro 100 Unit/Ml 3 Ml Vial) 0 unit SUBCUT QIDACHS [facility]; Protocol Last Admin: 05/06/23 11:01 Dose: 4 unit Documented By: ROSA Levalbuterol HCl (Levalbuterol Hcl 1.25 Mg/3 Ml Vial.Neb) 1.25 mg INHALE Q2H PRN PRN Reason: Shortness of Breath/Wheezing Levothyroxine Sodium (Levothyroxine Sodium 100 Mcg Tablet) 100 mcg PO DAILY@0600 [facility] Last Admin: 05/06/23 05:35 Dose: 100 mcg Documented By: DEJUAN Methylprednisolone Sodium Succinate (Methylprednisolone Sod Succ 40 Mg/Ml Vial) 40 mg IVPUSH Q12H [facility] Last Admin: 05/06/23 10:35 Dose: 40 mg Documented By: ROSA Nitroglycerin (Nitroglycerin 0.4 Mg Tab.Subl) 0.4 mg SUBLINGUAL Q5M PRN PRN Reason: chest pain Ondansetron HCl (Ondansetron Hcl 4 Mg/2 Ml Vial) 4 mg IVPUSH Q8H PRN PRN Reason: Nausea and Vomiting Ranolazine (Ranolazine 500 Mg Tab.Er.12h) 500 mg PO BID [facility] Last Admin: 05/06/23 10:36 Dose: 500 mg Documented By: ROSA Sodium Chloride (0.9 % Sodium Chloride Flush 3 Ml Syringe) 3 ml IVFLUSH QSHIFT [facility] Last Admin: 05/06/23 10:36 Dose: 3 ml Documented By: ROSA Labs 05/04/23 12:14 05/06/23 06:46 Labs: Laboratory Results - last 24 hr 05/05/23 05/05/23 05/06/23 15:35 19:06 06:46 Hold Purple Top Anion Gap 21 H Estim Creat Clear Calc 10.4 Estimated GFR 10 POC Glucose 131 H 272 H Random Glucose 181 H Calcium 8.4 05/06/23 05/06/23 05/06/23 06:55 07:39 10:51 Hold Purple Top SEE NOTE Anion Gap Estim Creat Clear Calc Estimated GFR POC Glucose 146 H 156 H Random Glucose Calcium Microbiology Microbiology Results: Microbiology 05/04/23 17:57 Blood Culture - Preliminary Blood - Venous Prelim: GPC Gram Stain only 05/04/23 17:45 Blood Culture - Preliminary Blood - Venous Prelim: GPC Gram Stain only Assessment and Plan (1) Acute on chronic respiratory failure with hypoxemia: Status: Acute (2) ESRD needing dialysis: Status: Acute (3) Pneumonia: Status: Acute Plan 82-year-old female with history of NSTEMI, diastolic heart failure, chronic respiratory failure with hypoxia and hypercapnia on 4 L supplemental O2 at baseline, ESRD on dialysis MWF, interstitial lung disease, chw-xddyyfp-weaiuuind type 2 diabetes, hyperlipidemia, hypothyroidism, restless leg syndrome who is severely obese admitted for acute copd exacerbation #Acute on chronic respiratory failure with hypoxemia due to Sepsis/ bilateral LL pneumonia and rhino and entero virus -Initially required bipap, weaned to oxymask now on 5 L of supplemental oxygen, baseline 4 L -leukocytosis (likely multifactorial related to steroid use and infection), tachycardia, and tachypnea resolved, Lactic acid normal. Renal function r/t esrd needing dialysis. No end organ damage or hypotension -ct chest showed bilateral consolidation and a new 1 cm left upper lobe nodule, PCT 1.09 -on IV ceftriaxone and IV azithromycin (initiated 05/04) -sputum culture, Legionella antigen, and strep pneumo antigen pending -add cough medications, symptomatic management -blood cultures x2 positive for Gram-positive cocci # Gram-positive bacteremia follow final sensitivities ,give IV vancomycin x 1 post hemodialysis today and adjust medications as per sensitivities. #ILD exacerbation due to bacterial pneumonia and viral infection with rhino and enterovirus -continue IV methylprednisolone 40 mg b.i.d.,DuoNebs q.4h, wean steroids slowly -Xopenex p.r.n. , cough medication #Non anion gap metabolic acidosis -r/t esrd ,follow bmp #ESRD on dialysis -seen by Nephrology typically on MWF schedule, skipped hemodialysis, seen by Nephrology underwent hemodialysis yesterday and today -creatinine 5.40, BUN 102, VBG showed metabolic acidosis, normal CO2 #Chronic macrocytis anemia -vitamin b12 and folic acid levels normal,h/h above transfusion threshold # hcb-pbbniai-anefawoti type 2 diabetes -elevated blood sugars continue diabetic diet and insulin sliding scale #HFpEF -no acute exacerbetion, clinically euvolemic, elevated BNP due to esrd. #Elevated trops - initial 27, repeat 29 ,likely demand secondary to hypoxia # hypothyroidism -continue levothyroxine # RLS -continue gabapentin #Severe obesity with BMI greater than 38, working on weight loss, down about 10kg last 4month, encourage continued weight loss efforts DVT prophylaxis-heparin DNR/DNI Patient requires continued inpatient hospitalization for management of acute respiratory failure secondary to acute pneumonia requiring iv abx with significant chronic lung disease as well as ESRD needing dialysis Time Spent With Patient Time: Total time managing care of this patient today ____ minutes. Quality Stroke Does the patient have a stroke diagnosis?: No VTE Prior VTE?: No VTE Risk Level:: Medical - moderate - high VTE Device Contraindication: Treatment Not Indicated VTE Drug Contraindication: N/A - Med Ordered
--- NOTE | 2023-05-06 14:42 | MHC.CM.PN ---
EMR reviewed and per MD rounds, pt is not medically cleared for D/C due to acute respiratory failure, and acute pneumonia requiring IV abx. CM will continue to follow.
[2023-05-06] MEDS: vancomycin/NS 2,000 MG/500 ML PLAST..BAG 250 MG IV (15:17)
[2023-05-06] MEDS: Albuterol/Iprat 2.5/0.5MG 3 ML AMPUL.NEB INHALE ×2 (15:44→19:41)
[2023-05-06 16:27] LABS: Glucose, Whole Blood 210 mg/dL (60-115)
[2023-05-06] MEDS: guaiFEN/Codeine SF 200/20/10ML 10 ML LIQUID 5 ML PO ×2 (17:00→20:33)
[2023-05-06] MEDS: Azithromycin 500 MG in 0.9 % Sodium Chloride 250 ML 125 MG IV (17:47)
[2023-05-06 20:21] LABS: Glucose, Whole Blood 190 mg/dL (60-115)
[2023-05-06] MEDS: Atorvastatin Calcium 20 MG TABLET PO (20:33)
--- NOTE | 2023-05-06 22:14 | P.PNNP_ITS ---
Subjective Subjective Date of Service: 05/06/23 Interval history: Being followed for COPD exacerbation/pneumonia and rhino/entero virus infection patient seen at hemodialysis complaining of shortness of breath and congested cough, chest pain with coughing denies fevers, no chills, no other acute events overnight, remain on 5 L of OxyMask Seen on hd Physical Exam 2 Vital Signs: Vital Signs: Last Vital Signs Temp 98.9 F 05/06/23 19:18 Pulse 77 05/06/23 19:42 Resp 18 05/06/23 19:42 BP 120/58 L 05/06/23 19:18 Pulse Ox 94 05/06/23 19:18 O2 Del Method Oxymask 05/06/23 19:18 O2 Flow Rate 4 05/06/23 19:18 FiO2 94 05/06/23 03:14 BMI result Body Mass Index 38.5 Const: Other: Constitutional : Alert, oriented, in no respiratory distress Neck : Normal inspection, Supple Cardiovascular : RRR, S1 S2, no lower extremity edema Respiratory : Bilateral basilar dry crackles, coarse breath sound, no use of accessory muscles Gastrointestinal: soft, Normal bowel sounds, Non tender Skin : Warm, Dry Neurological : Alert & oriented x3, No focal deficit Psych appropriate affect Objective Data Labs 05/04/23 12:14 05/06/23 06:46 Labs: Laboratory Results - last 24 hr 05/06/23 05/06/23 05/06/23 06:46 06:55 07:39 Hold Purple Top SEE NOTE Sodium 137 Potassium 4.7 Chloride 104 Carbon Dioxide 17 L Anion Gap 21 H BUN 83 H Creatinine 4.32 H* Estim Creat Clear Calc 10.4 Estimated GFR 10 POC Glucose 146 H Random Glucose 181 H Calcium 8.4 05/06/23 05/06/23 05/06/23 10:51 16:20 20:11 Hold Purple Top Sodium Potassium Chloride Carbon Dioxide Anion Gap BUN Creatinine Estim Creat Clear Calc Estimated GFR POC Glucose 156 H 210 H 190 H Random Glucose Calcium Microbiology Microbiology Results: Microbiology 05/04/23 17:57 Blood - Venous Blood Culture - Preliminary Prelim: GPC Gram Stain only 05/04/23 17:45 Blood - Venous Blood Culture - Preliminary Prelim: GPC Gram Stain only Procedures Date of Service Date of Service: 05/06/23 Assessment & Plan Assessment and plan (1) ESRD needing dialysis: Status: Acute (2) Hypoxia: Status: Acute (3) Acute on chronic diastolic (congestive) heart failure: Status: Acute (4) CHF exacerbation: Status: Acute (5) Pneumonia: Status: Acute (6) Acute on chronic respiratory failure with hypoxemia: Status: Acute Assessment and Plan: 82-year-old female with history of NSTEMI, diastolic heart failure, chronic respiratory failure with hypoxia and hypercapnia on 4 L supplemental O2 at baseline, ESRD on dialysis MWF, interstitial lung disease, [id number]-iqhldepyk type 2 diabetes, hyperlipidemia, hypothyroidism, restless leg syndrome who is severely obese admitted for acute copd exacerbation 1. ESRD on HD 2. Acute on chronic respiratory failure with hypoxemia due to sepsis/ bilateral LL pneumonia and viral infection with rhino and entero virus 3. MEt acidosis 4. Anemia Continue HD today Fluid removal as tolerated Volume removal as tolerated Antibiotics as per medical team No need for Epo Thx Dr. Dumas DNR/DNI Time Spent With Patient Time: Total time managing care of this patient today ____ minutes. Progress Note: Quality Stroke Does the patient have a stroke diagnosis?: No
[2023-05-07] VITALS (7 sets, daily range): BP systolic 112–146; BP diastolic 48–64; PULSE 76–88; RESP 18–20; TEMP 36.3–36.9; O2SAT 85–99
[2023-05-07] MEDS: guaiFENesin DM 100/10/5 ML 5 ML SYRUP 10 ML PO ×2 (00:42→09:21)
[2023-05-07] MEDS: Throat Lozenge, Medicated LOZENGE 1 LOZENGE MUCOUS MEM ×3 (00:42→09:20)
[2023-05-07] MEDS: Levothyroxine Sodium 100 MCG TABLET PO (05:20)
--- NOTE | 2023-05-07 07:00 | CA_ITS ---
Transthoracic Echocardiogram Patient (Last, First, Middle): Ludy Atkins, Gender: Female Date of : 1940 Age: 82 Procedure Date: 05/07/2023 Procedure Type: Transthoracic Echocardiogram Location[place] [facility] [place] Height: 157.48 cm Weight: 95.26 kg BSA: 1.95 m2 Heart Rate: bpm BP: 146 / 64 mmHg Sports Intern: ALICIA Referring MD: Meliza JOHNSON Cutter Operator Brick: Srinivasa Jordan MD Symptoms: bacteremia; eval for endocarditis Study Quality: Technically Difficult ECG Rhythm: Sinus Conclusions: - Technically limited study to evaluate for vegetations Findings Aortic Valve The aortic valve was not well visualized. There is mild calcification of the aortic valve. Mitral Valve The mitral valve was not well visualized. There is mild anterior mitral leaflet thickening. There is mild mitral annular calcification. There is trace mitral valve regurgitation. Pulmonic Valve The pulmonic valve was not well visualized. Tricuspid Valve The tricuspid valve was not well visualized. Recommendations, Care & Conclusions Consider a SRI if clinically appropriate. Measurements Mitral Valve MV Pk E: 1.04 MV PK A: 1.12 MV Decel Time: 261.00 E/A: 0.90 E'Lateral: 7.94 E'Medial: 5.98 E/E' Med: 17.40 E/E' Lat: 13.10 PHT: 76.00 MVA PHT: 2.89 Decel Crenshaw: 4.00 Diastolic Function MV Pk E: 1.04 MV Pk A: 1.12 E/A: 0.90 E'Medial: 5.98 E/E' Med: 17.40 E' Laterial: 7.94 E/E' Lat: 13.10 Tricuspid Valve TR Pk Reji: 2.33 TR Pk Grad: 22.00 Updated in Other Vendor System with Status of Final Srinivasa Jordan MD electronically signed on 05/07/2023 4:31:04 PM with status of Final
[2023-05-07 07:05] LABS: Glucose, Whole Blood 157 mg/dL (60-115)
[2023-05-07 07:24] LABS: Hemoglobin 10.6 g/dl (12.0-16.0); Mean Corpuscular HGB Conc 34.2 g/dl (31.0-35.0); Mean Corpuscular Hemoglobin 32.9 pg (27.0-33.0); Mean Corpuscular Volume 96.3 fL (80.0-98.0); Mean Platelet Volume 10.4 fL (9.4-12.3); Platelet Count 191 X10*3/uL (160-400); Red Blood Count 3.22 X10*6/uL (4.20-5.50); Red Cell Distribution Width 14.6 % (11.0-16.0); White Blood Count 10.3 X10*3/uL (4.8-10.8)
[2023-05-07 07:44] LABS: Anion Gap 21 (12-20); Blood Urea Nitrogen 70 mg/dL (9-16); Calcium 8.6 mg/dL (8.4-10.2); Carbon Dioxide 18 mmol/L (22-29); Chloride 97 mmol/L (96-108); Creatinine Clr Calc Pharmacy 10.7; Estimated Glomerular Filt Rate 10; Glucose Random 169 mg/dL (60-115); Potassium 4.9 mmol/L (3.3-5.1); Sodium 131 mmol/L (135-145)
[2023-05-07] MEDS: Escitalopram Oxalate 10 MG TABLET PO (09:20)
[2023-05-07] MEDS: Famotidine 20 MG TABLET PO (09:20)
[2023-05-07] MEDS: Gabapentin 100 MG CAPSULE PO ×3 (09:20→21:54)
[2023-05-07] MEDS: Acetaminophen 325 MG TABLET 650 MG PO (09:20)
[2023-05-07] MEDS: Aspirin Enteric Coated 81 MG TABLET.DR PO (09:20)
[2023-05-07] MEDS: Ranolazine 500 MG TAB.ER.12H PO ×2 (09:20→21:54)
[2023-05-07] MEDS: guaiFEN/Codeine SF 200/20/10ML 10 ML LIQUID 5 ML PO ×4 (09:21→21:55)
[2023-05-07] MEDS: Heparin Sodium,Porcine 5,000 UNIT/ML VIAL 5000 UNIT SUBCUT ×2 (09:21→21:54)
[2023-05-07] MEDS: 0.9 % Sodium Chloride Flush 3 ML SYRINGE IVFLUSH ×3 (09:22→21:57)
[2023-05-07] MEDS: Insulin Lispro 100 UNIT/ML 3 ML VIAL SUBCUT ×4 (09:22→21:55)
[2023-05-07] MEDS: methylPREDNISolone Sod Succ 40 MG/ML VIAL IVPUSH ×2 (09:23→21:54)
--- NOTE | 2023-05-07 10:36 | HO.PM.IMPN ---
Subjective Subjective Date of Service: 05/07/23 Interval History: seen and examined this morning follow up for COPD/ILD/rhinovirus exacerbation and bacteremia still with dry cough, has coughing fits making it hard to sleep denies fever, chills Review of Systems Review of Systems: Yes all other systems are reviewed and are negative Constitutional Constitutional: Denies chills and Denies fever(s) Cardiovascular Cardiovascular: Denies chest pain, Denies palpitations and Reports dyspnea Respiratory Respiratory: Reports cough and Reports dyspnea Gastrointestinal Gastrointestinal: Denies abdominal pain Endocrine Endocrine: Denies palpitations Physical Exam Vital Signs: Vital Signs: Last Vital Signs Temp 97.4 F 05/07/23 07:20 Pulse 76 05/07/23 07:20 Resp 20 05/07/23 07:20 BP 135/62 05/07/23 07:20 Pulse Ox 98 05/07/23 07:20 O2 Del Method Oxymask 05/07/23 07:20 O2 Flow Rate 4 05/07/23 07:20 FiO2 94 05/06/23 03:14 BMI result Body Mass Index 38.5 Const: General: cooperative, comfortable, no acute distress, alert and awake Nutritional Appearance: overweight Orientation/consciousness: patient oriented x3 Resp: Other: dry basilar crackles Cardio: Rate: regular rate GI: Inspection: No distended Palpation (GI): Soft to palpation and nontender Neuro: General: patient oriented x3, moves all extremities and CN's II-XI intact bilaterally Extrem: General: Yes no pedal edema Objective Data Active Medications Acetaminophen (Acetaminophen 325 Mg Tablet) 650 mg PO Q6H PRN PRN Reason: Pain, Mild (Pain Scale 1-3) Last Admin: 05/07/23 09:20 Dose: 650 mg Documented By: IZZY Albuterol Sulfate (Albuterol Sulfate 90 Mcg 8 Gm Inhaler) 2 puff INHALE Q4H PRN PRN Reason: Shortness Of Breath Or Wheezing Albuterol/Ipratropium (Albuterol/Iprat 2.5/0.5mg 3 Ml Ampul.Neb) 3 ml INHALE RQ4H WHILE AWAKE [facility] Last Admin: 05/07/23 08:11 Dose: Not Given Documented By: ALEX Non-Admin Reason: Patient Refused Aspirin (Aspirin Enteric Coated 81 Mg Tablet.) 81 mg PO DAILY [facility] Last Admin: 05/07/23 09:20 Dose: 81 mg Documented By: IZZY Atorvastatin Calcium (Atorvastatin Calcium 20 Mg Tablet) 20 mg PO BEDTIME [facility] Last Admin: 05/06/23 20:33 Dose: 20 mg Documented By: DEVIN Benzocaine (Throat Lozenge, Medicated Lozenge) 1 lozenge MUCOUS MEM Q2H PRN PRN Reason: Sore Throat Last Admin: 05/07/23 09:20 Dose: 1 lozenge Documented By: IZZY Dextrose (Dextrose 50 % 25 Gm/50 Ml Syringe) 25 gm IVPUSH Q15M PRN; Protocol PRN Reason: per Hypoglycemia Standing Ord. Docusate Sodium (Docusate Sodium 100 Mg Capsule) 100 mg PO DAILY PRN PRN Reason: Constipation Escitalopram Oxalate (Escitalopram Oxalate 10 Mg Tablet) 10 mg PO DAILY [facility] Last Admin: 05/07/23 09:20 Dose: 10 mg Documented By: IZZY Famotidine (Famotidine 20 Mg Tablet) 20 mg PO DAILY [facility] Last Admin: 05/07/23 09:20 Dose: 20 mg Documented By: IZZY Fluticasone/Umeclidinium/Vilanterol (Fluticasone/Umeclidinium/Vilanterol 100/62.5/25 Blst.W.Dev) 1 puff INHALE RDAILY [facility] Last Admin: 05/07/23 08:11 Dose: Not Given Documented By: ALEX Non-Admin Reason: Patient Refused Gabapentin (Gabapentin 100 Mg Capsule) 100 mg PO TID [facility] Last Admin: 05/07/23 09:20 Dose: 100 mg Documented By: IZZY Glucose (Glucose Gel 15 Gm Gel..Gram.) 15 gm PO Q15M PRN; Protocol PRN Reason: per Hypoglycemia Standing Ord. Guaifenesin/Codeine Phosphate (Guaifen/Codeine Sf 200/20/10ml 10 Ml Liquid) 5 ml PO QID [facility] Last Admin: 05/07/23 09:21 Dose: 5 ml Documented By: IZZY Guaifenesin/Dextromethorphan (Guaifenesin Dm 100/10/5 Ml 5 Ml Syrup) 10 ml PO Q6H PRN PRN Reason: cough Last Admin: 05/07/23 09:21 Dose: 10 ml Documented By: IZZY Heparin Sodium (Porcine) (Heparin Sodium,Porcine 5,000 Unit/Ml Vial) 5,000 unit SUBCUT Q12H [facility] Last Admin: 05/07/23 09:21 Dose: 5,000 unit Documented By: IZZY Ceftriaxone Sodium 1 gm/ (Sodium Chloride) 50 mls @ 100 mls/hr IV Q24H [facility] Last Infusion: 05/06/23 22:17 Dose: Infused Documented By: DEVIN Azithromycin 500 mg/ Sodium (Chloride) 250 mls @ 125 mls/hr IV Q24H [facility] Last Infusion: 05/06/23 20:09 Dose: Infused Documented By: DEVIN Vancomycin HCl 500 mg/ Sodium (Chloride) 110 mls @ 110 mls/hr IV MoWeFr@2000 [facility] Insulin Human Lispro (Insulin Lispro 100 Unit/Ml 3 Ml Vial) 0 unit SUBCUT QIDACHS [facility]; Protocol Last Admin: 05/07/23 09:22 Dose: 4 unit Documented By: IZZY Levalbuterol HCl (Levalbuterol Hcl 1.25 Mg/3 Ml Vial.Neb) 1.25 mg INHALE Q2H PRN PRN Reason: Shortness of Breath/Wheezing Levothyroxine Sodium (Levothyroxine Sodium 100 Mcg Tablet) 100 mcg PO DAILY@0600 [facility] Last Admin: 05/07/23 05:20 Dose: 100 mcg Documented By: DEVIN Methylprednisolone Sodium Succinate (Methylprednisolone Sod Succ 40 Mg/Ml Vial) 40 mg IVPUSH Q12H [facility] Last Admin: 05/07/23 09:23 Dose: 40 mg Documented By: IZZY Nitroglycerin (Nitroglycerin 0.4 Mg Tab.Subl) 0.4 mg SUBLINGUAL Q5M PRN PRN Reason: chest pain Ondansetron HCl (Ondansetron Hcl 4 Mg/2 Ml Vial) 4 mg IVPUSH Q8H PRN PRN Reason: Nausea and Vomiting Pharmacy Consult (Consult Rx Vancomycin Dosing) 1 each MISCELLANE DAILY PRN PRN Reason: Consult order Ranolazine (Ranolazine 500 Mg Tab.Er.12h) 500 mg PO BID [facility] Last Admin: 05/07/23 09:20 Dose: 500 mg Documented By: IZZY Sodium Chloride (0.9 % Sodium Chloride Flush 3 Ml Syringe) 3 ml IVFLUSH QSHIFT [facility] Last Admin: 05/07/23 09:22 Dose: 3 ml Documented By: IZZY Labs 05/07/23 06:43 05/07/23 06:43 Labs: Laboratory Results - last 24 hr 05/06/23 05/06/23 05/06/23 10:51 16:20 20:11 MCV MCH MCHC RDW Plt Count MPV Absolute Nucleated RBC Nucleated RBC % (auto) Anion Gap Estim Creat Clear Calc Estimated GFR POC Glucose 156 H 210 H 190 H Random Glucose Calcium 05/07/23 05/07/23 06:43 06:58 MCV 96.3 MCH 32.9 MCHC 34.2 RDW 14.6 Plt Count 191 MPV 10.4 Absolute Nucleated RBC 0.000 Nucleated RBC % (auto) 0.0 Anion Gap 21 H Estim Creat Clear Calc 10.7 Estimated GFR 10 POC Glucose 157 H Random Glucose 169 H Calcium 8.6 Microbiology Microbiology Results: Microbiology 05/04/23 17:57 Blood Culture - Preliminary Blood - Venous Prelim: GPC Gram Stain only 05/04/23 17:45 Blood Culture - Preliminary Blood - Venous Prelim: GPC Gram Stain only Assessment and Plan (1) Acute on chronic respiratory failure with hypoxemia: Status: Acute (2) ESRD needing dialysis: Status: Acute (3) Bacteremia: Status: Acute Plan This is an 82-year-old female with history of NSTEMI, diastolic heart failure, chronic respiratory failure with hypoxia and hypercapnia on 4 L supplemental O2 at baseline, ESRD on dialysis MWF, interstitial lung disease, azc-tlgbxgk-[id number] type 2 diabetes, hyperlipidemia, hypothyroidism, restless leg syndrome who is severely obese admitted for acute copd exacerbation found to have rhinovirus and GPC bacteremia #Acute on chronic respiratory failure with hypoxemia due to Sepsis/ bilateral LL pneumonia and rhino/entero virus -Initially required bipap, weaned to oxymask now back on baseline 4 L of supplemental oxygen -leukocytosis, tachycardia, and tachypnea resolved, Lactic acid normal. Renal function r/t esrd needing dialysis. No end organ damage or hypotension -ct chest showed bilateral consolidation and a new 1 cm left upper lobe nodule probably representing infectious or inflammatory process, PCT 1.09 - will need outpatient follow up imaging to ensure resolution -continue IV ceftriaxone and IV azithromycin (initiated 05/04), will d/c azithromycin -continue cough medications, symptomatic management #GPC bacteremia blood cultures x2 positive for GPC - follow final sensitivities vanco added 05/06 repeat blood cultures pending ID consult pending #ILD exacerbation due to bacterial pneumonia and viral infection with rhino/enterovirus -continue IV methylprednisolone 40 mg b.i.d.,DuoNebs q.4h, wean steroids slowly -Xopenex p.r.n. , cough medication #Non anion gap metabolic acidosis -r/t esrd #ESRD on dialysis -seen by Nephrology typically on MWF schedule #Chronic macrocytic anemia -vitamin b12 and folic acid levels normal,h/h at baseline and above transfusion threshold # qoj-roneuql-arvmfnspz type 2 diabetes -elevated blood sugars continue diabetic diet and insulin sliding scale #HFpEF -no acute exacerbation, clinically euvolemic, elevated BNP due to esrd. #Elevated trops - initial 27, repeat 29, likely related to demand secondary to hypoxia # hypothyroidism -continue levothyroxine # RLS -continue gabapentin #Severe obesity with BMI greater than 38, working on weight loss, down about 10kg last 4month, encourage continued weight loss efforts DVT prophylaxis-heparin DNR/DNI Attending - Dr. Lauren Patient requires continued inpatient hospitalization for management of acute respiratory failure secondary to acute pneumonia requiring iv abx with significant chronic lung disease as well as ESRD needing dialysis Time Spent With Patient Time: Total time managing care of this patient today ____ minutes. Quality Stroke Does the patient have a stroke diagnosis?: No VTE Prior VTE?: No VTE Risk Level:: Medical - moderate - high VTE Device Contraindication: Treatment Not Indicated VTE Drug Contraindication: N/A - Med Ordered
[2023-05-07 11:03] LABS: Glucose, Whole Blood 167 mg/dL (60-115)
[2023-05-07] MEDS: Albuterol/Iprat 2.5/0.5MG 3 ML AMPUL.NEB INHALE ×2 (12:04→19:51)
--- NOTE | 2023-05-07 15:32 | P.CNID_ITS ---
History of Present Illness Data of Consult Service Date: 05/07/23 Requesting physician: Meliza Snow Primary Care Provider: Christina Paiz MD HPI Reason for consult: pneumonia She presents with cough and shortness of breath worse over last several days. She has bilateral LL pneumonia. She has blood cultures 05/04 staph aureus and rhinovirus RVP. ESRD on HD/fistula. Review of Systems 2 Review of Systems: Yes all other systems are reviewed and are negative PMFSH Past Medical History Medical History (HFpEF) heart failure with preserved ejection fraction ESRD needing dialysis NSTEMI (non-ST elevated myocardial infarction) Cough Respiratory failure with hypoxia Interstitial lung disease Depression, major, recurrent Dyslipidemia Osteoarthritis of multiple joints Acquired hypothyroidism Heart murmur Fibromyalgia Diabetes Family History Family History Brother Substance use disorder Son Substance use disorder Daughter Substance use disorder Family history: reviewed and not pertinent Surgical History Surgical History Hx of tonsillectomy S/P appendectomy Hx of fusion of cervical spine S/P anal fissurectomy H/O hemorrhoidectomy S/P partial hysterectomy Social History Social History Household Members: Family Housing: Apartment Do you presently have visiting nurse or other home services: No (states she's working on it.) Alcohol intake: never Patient Tobacco Use Status: Former Tobacco user Quit Date: 15 years ago Tobacco use type: Cigarette Years Smoked: 20 +/- on and off e-Cigarette/Vaping Use: Never Used Second Hand Smoke Exposure: No Advance Directives Date on File: 02/01/23 service: No Current occupational status: retired Current occupation: right handed Cognitive needs: No Hearing needs: No Vision needs: Yes Meds Allergies Allergy/AdvReac Type Severity Reaction Status Date / Time NSAIDS (Non-Steroidal Allergy Unknown Verified 04/23/23 11:34 Anti-Inflamma Ffozibh-BGI-EhW Reductase AdvReac Severe LEG PAIN Verified 04/23/23 11:34 Inhibitor Active Medications: Current Medications Acetaminophen (Acetaminophen 325 Mg Tablet) 650 mg PO Q6H PRN PRN Reason: Pain, Mild (Pain Scale 1-3) Last Admin: 05/07/23 09:20 Dose: 650 mg Albuterol Sulfate (Albuterol Sulfate 90 Mcg 8 Gm Inhaler) 2 puff INHALE Q4H PRN PRN Reason: Shortness Of Breath Or Wheezing Albuterol/Ipratropium (Albuterol/Iprat 2.5/0.5mg 3 Ml Ampul.Neb) 3 ml INHALE RQ4H WHILE AWAKE [facility] Last Admin: 05/07/23 12:04 Dose: 3 ml Aspirin (Aspirin Enteric Coated 81 Mg Tablet.Dr) 81 mg PO DAILY [facility] Last Admin: 05/07/23 09:20 Dose: 81 mg Atorvastatin Calcium (Atorvastatin Calcium 20 Mg Tablet) 20 mg PO BEDTIME [facility] Last Admin: 05/06/23 20:33 Dose: 20 mg Benzocaine (Throat Lozenge, Medicated Lozenge) 1 lozenge MUCOUS MEM Q2H PRN PRN Reason: Sore Throat Last Admin: 05/07/23 09:20 Dose: 1 lozenge Dextrose (Dextrose 50 % 25 Gm/50 Ml Syringe) 25 gm IVPUSH Q15M PRN; Protocol PRN Reason: per Hypoglycemia Standing Ord. Docusate Sodium (Docusate Sodium 100 Mg Capsule) 100 mg PO DAILY PRN PRN Reason: Constipation Escitalopram Oxalate (Escitalopram Oxalate 10 Mg Tablet) 10 mg PO DAILY [facility] Last Admin: 05/07/23 09:20 Dose: 10 mg Famotidine (Famotidine 20 Mg Tablet) 20 mg PO DAILY [facility] Last Admin: 05/07/23 09:20 Dose: 20 mg Fluticasone/Umeclidinium/Vilanterol (Fluticasone/Umeclidinium/Vilanterol 100/62.5/25 Blst.W.Dev) 1 puff INHALE RDAILY [facility] Last Admin: 05/07/23 08:11 Dose: Not Given Gabapentin (Gabapentin 100 Mg Capsule) 100 mg PO TID [facility] Last Admin: 05/07/23 09:20 Dose: 100 mg Glucose (Glucose Gel 15 Gm Gel..Gram.) 15 gm PO Q15M PRN; Protocol PRN Reason: per Hypoglycemia Standing Ord. Guaifenesin/Codeine Phosphate (Guaifen/Codeine Sf 200/20/10ml 10 Ml Liquid) 5 ml PO QID [facility] Last Admin: 05/07/23 12:55 Dose: 5 ml Guaifenesin/Dextromethorphan (Guaifenesin Dm 100/10/5 Ml 5 Ml Syrup) 10 ml PO Q6H PRN PRN Reason: cough Last Admin: 05/07/23 09:21 Dose: 10 ml Heparin Sodium (Porcine) (Heparin Sodium,Porcine 5,000 Unit/Ml Vial) 5,000 unit SUBCUT Q12H [facility] Last Admin: 05/07/23 09:21 Dose: 5,000 unit Ceftriaxone Sodium 1 gm/ (Sodium Chloride) 50 mls @ 100 mls/hr IV Q24H [facility] Last Infusion: 05/06/23 22:17 Dose: Infused Vancomycin HCl 500 mg/ Sodium (Chloride) 110 mls @ 110 mls/hr IV MoWeFr@2000 [facility] Insulin Human Lispro (Insulin Lispro 100 Unit/Ml 3 Ml Vial) 0 unit SUBCUT QIDACHS [facility]; Protocol Last Admin: 05/07/23 12:55 Dose: 4 unit Levalbuterol HCl (Levalbuterol Hcl 1.25 Mg/3 Ml Vial.Neb) 1.25 mg INHALE Q2H PRN PRN Reason: Shortness of Breath/Wheezing Levothyroxine Sodium (Levothyroxine Sodium 100 Mcg Tablet) 100 mcg PO DAILY@0600 [facility] Last Admin: 05/07/23 05:20 Dose: 100 mcg Methylprednisolone Sodium Succinate (Methylprednisolone Sod Succ 40 Mg/Ml Vial) 40 mg IVPUSH Q12H [facility] Last Admin: 05/07/23 09:23 Dose: 40 mg Nitroglycerin (Nitroglycerin 0.4 Mg Tab.Subl) 0.4 mg SUBLINGUAL Q5M PRN PRN Reason: chest pain Ondansetron HCl (Ondansetron Hcl 4 Mg/2 Ml Vial) 4 mg IVPUSH Q8H PRN PRN Reason: Nausea and Vomiting Pharmacy Consult (Consult Rx Vancomycin Dosing) 1 each MISCELLANE DAILY PRN PRN Reason: Consult order Ranolazine (Ranolazine 500 Mg Tab.Er.12h) 500 mg PO BID [facility] Last Admin: 05/07/23 09:20 Dose: 500 mg Sodium Chloride (0.9 % Sodium Chloride Flush 3 Ml Syringe) 3 ml IVFLUSH QSHIFT [facility] Last Admin: 05/07/23 09:22 Dose: 3 ml Home Medications Medication Instructions Recorded Confirmed Last Taken Type albuterol sulfate 90 mcg/actuation 2 puff inhalation Q4H PRN 12/28/22 05/04/23 Unknown History aerosol inhaler Shortness Of Breath Or Wheezing famotidine 20 mg tablet 20 mg PO DAILY 12/28/22 05/04/23 01/23/23 09:00 History levothyroxine 100 mcg tablet 100 mcg PO DAILY@0600 12/28/22 05/04/23 05/03/23 History atorvastatin 20 mg tablet 20 mg PO BEDTIME 01/24/23 05/04/23 05/03/23 History fluticasone fur. 100 mcg-umeclid 1 ea inhalation DAILY 02/10/23 05/04/23 05/03/23 History 62.5 mcg-vilant 25 mcg inhalat.powder (Trelegy Ellipta) gabapentin 100 mg capsule 100 mg PO TID 05/04/23 05/04/23 05/03/23 History Physical Exam 2 Vital Signs: Vital Signs: Last Vital Signs Temp 98.0 F 05/07/23 15:03 Pulse 84 05/07/23 15:03 Resp 18 05/07/23 15:03 BP 146/64 H 05/07/23 15:03 Pulse Ox 97 05/07/23 15:03 O2 Del Method Oxymask 05/07/23 15:03 O2 Flow Rate 4.0 05/07/23 15:03 FiO2 94 05/06/23 03:14 BMI result Body Mass Index 38.5 Const: General: cooperative HEENT: Head: Yes normal to inspection Face and sinus: Yes normal facial exam Mouth: Normal oral and palatal mucosa present Teeth and gingiva: d entition normal Eyes: General: appearance normal, both eyes and all related structures P upils: Equal, round and reactive pupils present Resp: Other: rhonchi bases, on nasal cannula Cardio: Rate: regular rate Rhythm: regular rhythm GI: Palpation (GI): Soft to palpation and nontender : General: Yes no CVA tenderness Back/Spine/Pelvis: Back: no CVA tenderness Skin: General skin exam: no rashes or lesions noted Neuro: General: moves all extremities Cranial nerves: Yes Equal, round and reactive pupils present Extrem: General: Yes normal to inspection Psych: Appearance: grossly normal Results Labs 05/07/23 06:43 05/07/23 06:43 Labs: Short CBC 05/07/23 Range/Units 06:43 WBC 10.3 (4.8-10.8) X10*3/uL Hgb 10.6 L (12.0-16.0) g/dl Hct 31.0 L (37.0-47.0) % Plt Count 191 (160-400) X10*3/uL BMP 05/07/23 06:43 Sodium 131 L Potassium 4.9 Chloride 97 Carbon Dioxide 18 L BUN 70 H Creatinine 4.21 H* Calcium 8.6 Microbiology Microbiology Results: Microbiology 05/04/23 17:57 Blood - Venous Blood Culture - Preliminary Staphylococcus aureus 05/04/23 17:45 Blood - Venous Blood Culture - Preliminary Staphylococcus aureus Assessment and Plan (1) Bacteremia: Status: Acute There is staph aureus bacteremia. There is concern over endocarditis. There could be fistula infection. She has increased oxygen concerns (on oxygen at home also) due to either rhinovirus and/or pneumonia staph aureus (2) Acute on chronic respiratory failure with hypoxemia: Status: Acute (3) ESRD needing dialysis: Status: Acute (4) Hypoxia: Status: Acute Plan Would continue Vancomycin for now. Check echo. Evaluate bacteremia final sensitivities. Renal evaluation possible fistula infection and remove if found to have. Probably four weeks IV therapy. Time Spent With Patient Time: Total time managing care of this patient today ____ minutes.
[2023-05-07 16:35] LABS: Glucose, Whole Blood 170 mg/dL (60-115)
[2023-05-07 20:19] LABS: Glucose, Whole Blood 157 mg/dL (60-115)
[2023-05-07] MEDS: Atorvastatin Calcium 20 MG TABLET PO (21:54)
[2023-05-07] MEDS: cefTRIAXone sodium 1 GM in 0.9 % Sodium Chloride 50 ML IV (21:55)
--- NOTE | 2023-05-07 23:16 | P.PNNP_ITS ---
Subjective Subjective Date of Service: 05/07/23 Interval history: seen and examined this morning follow up for COPD/ILD/rhinovirus exacerbation and bacteremia still with dry cough, has coughing fits making it hard to sleep denies fever, chills Physical Exam 2 Vital Signs: Vital Signs: Last Vital Signs Temp 98.2 F 05/07/23 20:00 Pulse 76 05/07/23 20:00 Resp 18 05/07/23 20:00 BP 133/63 05/07/23 20:00 Pulse Ox 95 05/07/23 20:00 O2 Del Method Oxymask 05/07/23 20:00 O2 Flow Rate 4 05/07/23 20:00 FiO2 94 05/06/23 03:14 BMI result Body Mass Index 38.5 Const: Other: Constitutional : Alert, oriented, in no respiratory distress Neck : Normal inspection, Supple Cardiovascular : RRR, S1 S2, no lower extremity edema Respiratory : Bilateral basilar dry crackles, coarse breath sound, no use of accessory muscles Gastrointestinal: soft, Normal bowel sounds, Non tender Skin : Warm, Dry Neurological : Alert & oriented x3, No focal deficit Psych appropriate affect Objective Data Labs 05/07/23 06:43 05/07/23 06:43 Labs: Laboratory Results - last 24 hr 05/07/23 05/07/23 05/07/23 06:43 06:58 10:56 WBC 10.3 RBC 3.22 L Hgb 10.6 L Hct 31.0 L MCV 96.3 MCH 32.9 MCHC 34.2 RDW 14.6 Plt Count 191 MPV 10.4 Absolute Nucleated RBC 0.000 Nucleated RBC % (auto) 0.0 Sodium 131 L Potassium 4.9 Chloride 97 Carbon Dioxide 18 L Anion Gap 21 H BUN 70 H Creatinine 4.21 H* Estim Creat Clear Calc 10.7 Estimated GFR 10 POC Glucose 157 H 167 H Random Glucose 169 H Calcium 8.6 05/07/23 05/07/23 16:22 20:15 WBC RBC Hgb Hct MCV MCH MCHC RDW Plt Count MPV Absolute Nucleated RBC Nucleated RBC % (auto) Sodium Potassium Chloride Carbon Dioxide Anion Gap BUN Creatinine Estim Creat Clear Calc Estimated GFR POC Glucose 170 H 157 H Random Glucose Calcium Microbiology Microbiology Results: Microbiology 05/04/23 17:57 Blood - Venous Blood Culture - Preliminary Staphylococcus aureus 05/04/23 17:45 Blood - Venous Blood Culture - Preliminary Staphylococcus aureus Procedures Date of Service Date of Service: 05/07/23 Assessment & Plan Assessment and plan (1) ESRD needing dialysis: Status: Acute (2) Hypoxia: Status: Acute (3) Acute on chronic diastolic (congestive) heart failure: Status: Acute (4) CHF exacerbation: Status: Acute (5) Pneumonia: Status: Acute (6) Acute on chronic respiratory failure with hypoxemia: Status: Acute Assessment and Plan: 82-year-old female with history of NSTEMI, diastolic heart failure, chronic respiratory failure with hypoxia and hypercapnia on 4 L supplemental O2 at baseline, ESRD on dialysis MWF, interstitial lung disease, [id number] type 2 diabetes, hyperlipidemia, hypothyroidism, restless leg syndrome who is severely obese admitted for acute copd exacerbation 1. ESRD on HD 2. Acute on chronic respiratory failure with hypoxemia due to sepsis/ bilateral LL pneumonia and viral infection with rhino and entero virus 3. MEt acidosis 4. Anemia HD in AM Bronchodialaters Antibiotics as per medical team No need for Epo Thx Dr. Dumas DNR/DNI Time Spent With Patient Time: Total time managing care of this patient today ____ minutes. Progress Note: Quality Stroke Does the patient have a stroke diagnosis?: No
[2023-05-08] VITALS (11 sets, daily range): BP systolic 126–158; BP diastolic 60–78; PULSE 72–115; RESP 16–20; TEMP 36.1–36.8; O2SAT 94–99
[2023-05-08] MEDS: Levothyroxine Sodium 100 MCG TABLET PO (05:49)
[2023-05-08 07:12] LABS: Glucose, Whole Blood 161 mg/dL (60-115)
[2023-05-08] MEDS: Escitalopram Oxalate 10 MG TABLET PO (07:41)
[2023-05-08] MEDS: Gabapentin 100 MG CAPSULE PO ×3 (07:41→22:48)
[2023-05-08] MEDS: Aspirin Enteric Coated 81 MG TABLET.DR PO (07:41)
[2023-05-08] MEDS: Ranolazine 500 MG TAB.ER.12H PO ×2 (07:41→22:48)
[2023-05-08] MEDS: Heparin Sodium,Porcine 5,000 UNIT/ML VIAL 5000 UNIT SUBCUT ×2 (07:42→22:51)
[2023-05-08] MEDS: Famotidine 20 MG TABLET PO (07:42)
[2023-05-08] MEDS: guaiFEN/Codeine SF 200/20/10ML 10 ML LIQUID 5 ML PO ×4 (07:42→22:48)
[2023-05-08] MEDS: Insulin Lispro 100 UNIT/ML 3 ML VIAL SUBCUT ×4 (07:45→22:55)
[2023-05-08] MEDS: Albuterol/Iprat 2.5/0.5MG 3 ML AMPUL.NEB INHALE ×4 (07:45→20:10)
[2023-05-08] MEDS: methylPREDNISolone Sod Succ 40 MG/ML VIAL IVPUSH (07:45)
[2023-05-08] MEDS: 0.9 % Sodium Chloride Flush 3 ML SYRINGE IVFLUSH ×3 (07:46→23:02)
[2023-05-08 09:06] LABS: Creatinine Clr Calc Pharmacy 8.5; Estimated Glomerular Filt Rate 8
--- NOTE | 2023-05-08 10:31 | MHC.CM.PN ---
EMR REVIEWED, PT W/BACTEREMIA WILL NEED 4WKS IV ABX AND CAN RECEIVE AT OUTPT HD [place] [facility], NO PLAN FOR DC OVER W/E, CM WILL CONT TO FOLLOW DC NEEDS.
[2023-05-08 11:20] LABS: Glucose, Whole Blood 161 mg/dL (60-115)
--- NOTE | 2023-05-08 13:27 | P.PNIM_ITS ---
Subjective Subjective Date of Service: 05/08/23 Interval History: seen and examined this morning follow up for COPD/ILD/rhinovirus; bacteremia still with some cough, but feeling better overall. no fever Review of Systems Review of Systems: Yes all other systems are reviewed and are negative Constitutional Constitutional: Denies chills and Denies fever(s) Cardiovascular Cardiovascular: Denies chest pain, Denies palpitations and Denies dyspnea Respiratory Respiratory: Reports cough and Denies dyspnea Endocrine Endocrine: Denies palpitations Physical Exam 2 Vital Signs: Vital Signs: Last Vital Signs Temp 97.0 F 05/08/23 11:38 Pulse 79 05/08/23 11:38 Resp 18 05/08/23 11:38 BP 158/63 H 05/08/23 11:38 Pulse Ox 98 05/08/23 11:38 O2 Del Method Oxymask 05/08/23 11:38 O2 Flow Rate 4 05/08/23 11:38 FiO2 94 05/06/23 03:14 BMI result Body Mass Index 38.5 Const: General: cooperative, comfortable, no acute distress, alert and awake Nutritional Appearance: overweight Orientation/consciousness: patient oriented x3 Resp: Other: dry basilar crackles Cardio: Rate: regular rate GI: Inspection: No distended Palpation (GI): Soft to palpation and nontender Neuro: General: patient oriented x3, moves all extremities and CN's II-XI intact bilaterally Extrem: General: Yes no pedal edema Objective Data Active Medications Acetaminophen (Acetaminophen 325 Mg Tablet) 650 mg PO Q6H PRN PRN Reason: Pain, Mild (Pain Scale 1-3) Last Admin: 05/07/23 09:20 Dose: 650 mg Documented By: IZZY Albuterol Sulfate (Albuterol Sulfate 90 Mcg 8 Gm Inhaler) 2 puff INHALE Q4H PRN PRN Reason: Shortness Of Breath Or Wheezing Albuterol/Ipratropium (Albuterol/Iprat 2.5/0.5mg 3 Ml Ampul.Neb) 3 ml INHALE RQ4H WHILE AWAKE [facility] Last Admin: 05/08/23 11:21 Dose: 3 ml Documented By: SHANAE Aspirin (Aspirin Enteric Coated 81 Mg Tablet.) 81 mg PO DAILY [facility] Last Admin: 05/08/23 07:41 Dose: 81 mg Documented By: IZZY Atorvastatin Calcium (Atorvastatin Calcium 20 Mg Tablet) 20 mg PO BEDTIME [facility] Last Admin: 05/07/23 21:54 Dose: 20 mg Documented By: DEVIN Benzocaine (Throat Lozenge, Medicated Lozenge) 1 lozenge MUCOUS MEM Q2H PRN PRN Reason: Sore Throat Last Admin: 05/07/23 09:20 Dose: 1 lozenge Documented By: IZZY Dextrose (Dextrose 50 % 25 Gm/50 Ml Syringe) 25 gm IVPUSH Q15M PRN; Protocol PRN Reason: per Hypoglycemia Standing Ord. Docusate Sodium (Docusate Sodium 100 Mg Capsule) 100 mg PO DAILY PRN PRN Reason: Constipation Escitalopram Oxalate (Escitalopram Oxalate 10 Mg Tablet) 10 mg PO DAILY [facility] Last Admin: 05/08/23 07:41 Dose: 10 mg Documented By: IZZY Famotidine (Famotidine 20 Mg Tablet) 20 mg PO DAILY [facility] Last Admin: 05/08/23 07:42 Dose: 20 mg Documented By: IZZY Fluticasone/Umeclidinium/Vilanterol (Fluticasone/Umeclidinium/Vilanterol 100/62.5/25 Blst.W.Dev) 1 puff INHALE RDAILY [facility] Last Admin: 05/08/23 07:46 Dose: Not Given Documented By: ALEX Non-Admin Reason: Patient Refused Gabapentin (Gabapentin 100 Mg Capsule) 100 mg PO TID [facility] Last Admin: 05/08/23 07:41 Dose: 100 mg Documented By: IZZY Glucose (Glucose Gel 15 Gm Gel..Gram.) 15 gm PO Q15M PRN; Protocol PRN Reason: per Hypoglycemia Standing Ord. Guaifenesin/Codeine Phosphate (Guaifen/Codeine Sf 200/20/10ml 10 Ml Liquid) 5 ml PO QID [facility] Last Admin: 05/08/23 11:36 Dose: 5 ml Documented By: IZZY Guaifenesin/Dextromethorphan (Guaifenesin Dm 100/10/5 Ml 5 Ml Syrup) 10 ml PO Q6H PRN PRN Reason: cough Last Admin: 05/07/23 09:21 Dose: 10 ml Documented By: IZZY Heparin Sodium (Porcine) (Heparin Sodium,Porcine 5,000 Unit/Ml Vial) 5,000 unit SUBCUT Q12H [facility] Last Admin: 05/08/23 07:42 Dose: 5,000 unit Documented By: IZZY Ceftriaxone Sodium 1 gm/ (Sodium Chloride) 50 mls @ 100 mls/hr IV Q24H [facility] Last Infusion: 05/07/23 22:39 Dose: Infused Documented By: DEVIN Vancomycin HCl 500 mg/ Sodium (Chloride) 110 mls @ 110 mls/hr IV MoWeFr@2000 [facility] Insulin Human Lispro (Insulin Lispro 100 Unit/Ml 3 Ml Vial) 0 unit SUBCUT QIDACHS [facility]; Protocol Last Admin: 05/08/23 11:36 Dose: 4 unit Documented By: IZZY Levalbuterol HCl (Levalbuterol Hcl 1.25 Mg/3 Ml Vial.Neb) 1.25 mg INHALE Q2H PRN PRN Reason: Shortness of Breath/Wheezing Levothyroxine Sodium (Levothyroxine Sodium 100 Mcg Tablet) 100 mcg PO DAILY@0600 [facility] Last Admin: 05/08/23 05:49 Dose: 100 mcg Documented By: DEVIN Methylprednisolone Sodium Succinate (Methylprednisolone Sod Succ 40 Mg/Ml Vial) 40 mg IVPUSH Q12H [facility] Last Admin: 05/08/23 07:45 Dose: 40 mg Documented By: IZZY Nitroglycerin (Nitroglycerin 0.4 Mg Tab.Subl) 0.4 mg SUBLINGUAL Q5M PRN PRN Reason: chest pain Ondansetron HCl (Ondansetron Hcl 4 Mg/2 Ml Vial) 4 mg IVPUSH Q8H PRN PRN Reason: Nausea and Vomiting Pharmacy Consult (Consult Rx Vancomycin Dosing) 1 each MISCELLANE DAILY PRN PRN Reason: Consult order Ranolazine (Ranolazine 500 Mg Tab.Er.12h) 500 mg PO BID [facility] Last Admin: 05/08/23 07:41 Dose: 500 mg Documented By: IZZY Sodium Chloride (0.9 % Sodium Chloride Flush 3 Ml Syringe) 3 ml IVFLUSH QSHIFT [facility] Last Admin: 05/08/23 07:46 Dose: 3 ml Documented By: IZZY Labs 05/07/23 06:43 05/08/23 08:33 Labs: Laboratory Results - last 24 hr 05/07/23 05/07/23 05/08/23 16:22 20:15 07:09 Estim Creat Clear Calc Estimated GFR POC Glucose 170 H 157 H 161 H 05/08/23 05/08/23 08:33 11:16 Estim Creat Clear Calc 8.5 Estimated GFR 8 POC Glucose 161 H Microbiology Microbiology Results: Microbiology 05/04/23 17:57 Blood Culture - Final Blood - Venous Staphylococcus aureus 05/04/23 17:45 Blood Culture - Final Blood - Venous Staphylococcus aureus Assessment and Plan (1) Bacteremia: Status: Acute Plan This is an 82-year-old female with history of NSTEMI, diastolic heart failure, chronic respiratory failure with hypoxia and hypercapnia on 4 L supplemental O2 at baseline, ESRD on dialysis MWF, interstitial lung disease, [id number] type 2 diabetes, hyperlipidemia, hypothyroidism, restless leg syndrome who is severely obese admitted for acute copd exacerbation found to have rhinovirus and GPC bacteremia #Acute on chronic respiratory failure with hypoxemia due to Sepsis/ bilateral LL pneumonia and rhino/entero virus Initially required bipap, weaned to oxymask now back on baseline 4 L of supplemental oxygen leukocytosis, tachycardia, and tachypnea resolved, Lactic acid normal. Renal function r/t esrd needing dialysis. No end organ damage or hypotension ct chest showed bilateral consolidation and a new 1 cm left upper lobe nodule probably representing infectious or inflammatory process, PCT 1.09 - will need outpatient follow up imaging to ensure resolution treated with IV ceftriaxone and IV azithromycin (initiated 05/04), azithromycin d/c 05/07. plan for 5 days of ceftriaxone continue cough medications, symptomatic management #GPC bacteremia blood cultures x2 positive for MSSA vanco added 05/06 repeat blood cultures from 05/07 preliminary negative echo obtained, technically difficult, can't rule out vegetation, but pt afebrile and repeat cultures negative making endocarditis less likely has spinal stimulator in place but no overlying erythema or tenderness on exam RUE fistula nontender with no overlying erythema seen by ID - abx TBD #ILD exacerbation due to bacterial pneumonia and viral infection with rhino/enterovirus will change to po prednisone 05/09 continue breathing treatments, cough medication #Non anion gap metabolic acidosis -r/t esrd #ESRD on dialysis nephrology following #Chronic macrocytic anemia vitamin b12 and folic acid levels normal,h/h at baseline and above transfusion threshold # niz-ekridjf-okxbknmkt type 2 diabetes elevated blood sugars continue diabetic diet and insulin sliding scale #HFpEF -no acute exacerbation, clinically euvolemic, elevated BNP due to esrd. #Elevated trops initial 27, repeat 29, likely related to demand secondary to hypoxia # hypothyroidism -continue levothyroxine # RLS -continue gabapentin #Severe obesity with BMI greater than 38, working on weight loss, down about 10kg last 4month, encourage continued weight loss efforts DVT prophylaxis-heparin DNR/DNI Attending - Dr. Lauren Patient requires continued inpatient hospitalization for management of bacteremia Time Spent With Patient Time: Total time managing care of this patient today ____ minutes. Quality Stroke Does the patient have a stroke diagnosis?: No VTE Prior VTE?: No VTE Risk Level:: Medical - moderate - high VTE Device Contraindication: Treatment Not Indicated VTE Drug Contraindication: N/A - Med Ordered
[2023-05-08 16:02] LABS: Glucose, Whole Blood 193 mg/dL (60-115)
[2023-05-08 18:27] LABS: Vancomycin Random 14.8 mcg/mL (15-20)
[2023-05-08 18:33] LABS: Anion Gap 22 (12-20); Blood Urea Nitrogen 97 mg/dL (9-16); Carbon Dioxide 18 mmol/L (22-29); Chloride 98 mmol/L (96-108); Creatinine Clr Calc Pharmacy 10.3; Estimated Glomerular Filt Rate 10; Glucose Random 167 mg/dL (60-115); Potassium 5.1 mmol/L (3.3-5.1); Sodium 133 mmol/L (135-145)
--- NOTE | 2023-05-08 18:42 | HE.PHANOTE ---
BROCK DOSE ADJUSTMENT. BASED ON TROUGH DOSE HELD TODAY UNTIL NEXT DIALYSIS SESSION. WILL CALL DAILY FOR SCHEDULE
[2023-05-08 21:42] LABS: Glucose, Whole Blood 194 mg/dL (60-115)
[2023-05-08] MEDS: Atorvastatin Calcium 20 MG TABLET PO (22:48)
--- NOTE | 2023-05-08 23:01 | P.PNNP_ITS ---
Subjective Subjective Date of Service: 05/08/23 Interval history: seen and examined this morning on HD follow up for COPD/ILD/rhinovirus; bacteremia still with some cough, but feeling better overall. no fever Physical Exam 2 Vital Signs: Vital Signs: Last Vital Signs Temp 97.5 F 05/08/23 21:47 Pulse 87 05/08/23 21:47 Resp 19 05/08/23 21:47 BP 126/64 05/08/23 21:47 Pulse Ox 98 05/08/23 21:47 O2 Del Method Nasal Cannula 05/08/23 21:47 O2 Flow Rate 4 05/08/23 15:06 FiO2 94 05/06/23 03:14 BMI result Body Mass Index 38.5 Const: General: cooperative, comfortable, no acute distress, alert and awake Nutritional Appearance: overweight Orientation/consciousness: patient oriented x3 Resp: Other: dry basilar crackles Cardio: Rate: regular rate GI: Inspection: No distended Palpation (GI): Soft to palpation and nontender Neuro: General: patient oriented x3, moves all extremities and CN's II-XI intact bilaterally Extrem: General: Yes no pedal edema Objective Data Labs 05/07/23 06:43 05/08/23 18:06 Labs: Laboratory Results - last 24 hr 05/08/23 05/08/23 05/08/23 07:09 08:33 11:16 Sodium TNP Potassium TNP Chloride TNP Carbon Dioxide TNP Anion Gap TNP BUN TNP Creatinine 5.27 H* Estim Creat Clear Calc 8.5 Estimated GFR 8 POC Glucose 161 H 161 H Random Glucose TNP Calcium TNP Random Vancomycin 05/08/23 05/08/23 05/08/23 15:55 18:06 21:38 Sodium 133 L Potassium 5.1 Chloride 98 Carbon Dioxide 18 L Anion Gap 22 H BUN 97 H Creatinine 4.38 H* Estim Creat Clear Calc 10.3 Estimated GFR 10 POC Glucose 193 H 194 H Random Glucose 167 H Calcium 8.0 L D Random Vancomycin 14.8 L Microbiology Microbiology Results: Microbiology 05/07/23 11:14 Blood - Venous Blood Culture - Preliminary No growth after 24 hours. 05/07/23 11:14 Blood - Venous Blood Culture - Preliminary No growth after 24 hours. 05/04/23 17:57 Blood - Venous Blood Culture - Final Staphylococcus aureus 05/04/23 17:45 Blood - Venous Blood Culture - Final Staphylococcus aureus Procedures Date of Service Date of Service: 05/08/23 Assessment & Plan Assessment and plan (1) ESRD needing dialysis: Status: Acute Assessment and Plan: 82-year-old female with history of NSTEMI, diastolic heart failure, chronic respiratory failure with hypoxia and hypercapnia on 4 L supplemental O2 at baseline, ESRD on dialysis MWF, interstitial lung disease, [id number]-emhqftjng type 2 diabetes, hyperlipidemia, hypothyroidism, restless leg syndrome who is severely obese admitted for acute copd exacerbation 1. ESRD on HD 2. Acute on chronic respiratory failure with hypoxemia due to sepsis/ bilateral LL pneumonia and viral infection with rhino and entero virus 3. MEt acidosis 4. Anemia Continue HD Vol removal as tolerated Bronchodialaters Antibiotics as per medical team No need for Epo Thx Dr. Dumas (2) Hypoxia: Status: Acute (3) Acute on chronic diastolic (congestive) heart failure: Status: Acute (4) CHF exacerbation: Status: Acute (5) Pneumonia: Status: Acute (6) Acute on chronic respiratory failure with hypoxemia: Status: Acute Assessment and Plan: 82-year-old female with history of NSTEMI, diastolic heart failure, chronic respiratory failure with hypoxia and hypercapnia on 4 L supplemental O2 at baseline, ESRD on dialysis MWF, interstitial lung disease, rzu-ihfqoth-myzqwwpbf type 2 diabetes, hyperlipidemia, hypothyroidism, restless leg syndrome who is severely obese admitted for acute copd exacerbation 1. ESRD on HD 2. Acute on chronic respiratory failure with hypoxemia due to sepsis/ bilateral LL pneumonia and viral infection with rhino and entero virus 3. MEt acidosis 4. Anemia HD in AM Bronchodialaters Antibiotics as per medical team No need for Epo Thx Dr. Dumas DNR/DNI Time Spent With Patient Time: Total time managing care of this patient today ____ minutes. Progress Note: Quality Stroke Does the patient have a stroke diagnosis?: No
[2023-05-09] VITALS (10 sets, daily range): BP systolic 100–132; BP diastolic 39–59; PULSE 73–95; RESP 17–22; TEMP 36.2–36.7; O2SAT 90–97
[2023-05-09] MEDS: Levothyroxine Sodium 100 MCG TABLET PO (05:30)
[2023-05-09] MEDS: Nitroglycerin 0.4 MG TAB.SUBL SUBLINGUAL (06:29)
--- NOTE | 2023-05-09 06:33 | PC.NURSE ---
0629 medicated with nitro sub 0.4 mg for c/o 8/10 chest pain. bp 113/57, hr 79. skin warm and dry, 0636 pt reports relief from medication. pt reports has a prescription for nitro at home. notified.
[2023-05-09 07:23] LABS: Creatinine Clr Calc Pharmacy 11.5; Estimated Glomerular Filt Rate 11
[2023-05-09] MEDS: Albuterol/Iprat 2.5/0.5MG 3 ML AMPUL.NEB INHALE ×3 (07:46→15:40)
[2023-05-09 08:02] LABS: Glucose, Whole Blood 105 mg/dL (60-115)
[2023-05-09] MEDS: Heparin Sodium,Porcine 5,000 UNIT/ML VIAL 5000 UNIT SUBCUT ×2 (09:43→22:02)
[2023-05-09] MEDS: predniSONE 20 MG TABLET 40 MG PO (09:43)
[2023-05-09] MEDS: 0.9 % Sodium Chloride Flush 3 ML SYRINGE IVFLUSH ×2 (09:43→14:43)
[2023-05-09] MEDS: Famotidine 20 MG TABLET PO (09:44)
[2023-05-09] MEDS: Ranolazine 500 MG TAB.ER.12H PO ×2 (09:44→22:00)
[2023-05-09] MEDS: guaiFEN/Codeine SF 200/20/10ML 10 ML LIQUID 5 ML PO ×4 (09:44→22:01)
[2023-05-09] MEDS: Aspirin Enteric Coated 81 MG TABLET.DR PO (09:44)
[2023-05-09] MEDS: Escitalopram Oxalate 10 MG TABLET PO (09:44)
[2023-05-09] MEDS: Gabapentin 100 MG CAPSULE PO ×3 (09:44→22:00)
--- NOTE | 2023-05-09 10:01 | HO.PM.IMPN ---
Subjective Subjective Date of Service: 05/09/23 Interval History: seen and examined this morning follow up for COPD/ILD/rhinovirus; bacteremia still with some cough, but feeling better overall. no fever Review of Systems Review of Systems: Yes all other systems are reviewed and are negative Constitutional Constitutional: Denies chills and Denies fever(s) Cardiovascular Cardiovascular: Denies chest pain, Denies palpitations and Denies dyspnea Respiratory Respiratory: Reports cough and Denies dyspnea Endocrine Endocrine: Denies palpitations Physical Exam Vital Signs: Vital Signs: Last Vital Signs Temp 97.1 F 05/09/23 08:00 Pulse 75 05/09/23 08:00 Resp 19 05/09/23 08:00 BP 102/39 L 05/09/23 08:00 Pulse Ox 97 05/09/23 08:00 O2 Del Method Oxymask 05/09/23 08:00 O2 Flow Rate 4 05/09/23 08:00 FiO2 98 05/08/23 23:31 BMI result Body Mass Index 38.5 Appearing in no acute distress lung sounds are clear to auscultation heart regular rate rhythm, clear S1, S2 positive bowel sounds, abdomen is soft, nontender neuro patient is alert x3, no focal deficits Objective Data Active Medications Acetaminophen (Acetaminophen 325 Mg Tablet) 650 mg PO Q6H PRN PRN Reason: Pain, Mild (Pain Scale 1-3) Last Admin: 05/07/23 09:20 Dose: 650 mg Documented By: IZZY Albuterol Sulfate (Albuterol Sulfate 90 Mcg 8 Gm Inhaler) 2 puff INHALE Q4H PRN PRN Reason: Shortness Of Breath Or Wheezing Albuterol/Ipratropium (Albuterol/Iprat 2.5/0.5mg 3 Ml Ampul.Neb) 3 ml INHALE RQ4H WHILE AWAKE [facility] Last Admin: 05/09/23 07:46 Dose: 3 ml Documented By: LOUIS Aspirin (Aspirin Enteric Coated 81 Mg Tablet.) 81 mg PO DAILY [facility] Last Admin: 05/09/23 09:44 Dose: 81 mg Documented By: LENNY Atorvastatin Calcium (Atorvastatin Calcium 20 Mg Tablet) 20 mg PO BEDTIME [facility] Last Admin: 05/08/23 22:48 Dose: 20 mg Documented By: KIMBERLY Benzocaine (Throat Lozenge, Medicated Lozenge) 1 lozenge MUCOUS MEM Q2H PRN PRN Reason: Sore Throat Last Admin: 05/07/23 09:20 Dose: 1 lozenge Documented By: IZZY Dextrose (Dextrose 50 % 25 Gm/50 Ml Syringe) 25 gm IVPUSH Q15M PRN; Protocol PRN Reason: per Hypoglycemia Standing Ord. Docusate Sodium (Docusate Sodium 100 Mg Capsule) 100 mg PO DAILY PRN PRN Reason: Constipation Escitalopram Oxalate (Escitalopram Oxalate 10 Mg Tablet) 10 mg PO DAILY [facility] Last Admin: 05/09/23 09:44 Dose: 10 mg Documented By: LENNY Famotidine (Famotidine 20 Mg Tablet) 20 mg PO DAILY [facility] Last Admin: 05/09/23 09:44 Dose: 20 mg Documented By: LENNY Fluticasone/Umeclidinium/Vilanterol (Fluticasone/Umeclidinium/Vilanterol 100/62.5/25 Blst.W.Dev) 1 puff INHALE RDAILY [facility] Last Admin: 05/09/23 07:49 Dose: Not Given Documented By: LOUIS Non-Admin Reason: Patient Refused Gabapentin (Gabapentin 100 Mg Capsule) 100 mg PO TID [facility] Last Admin: 05/09/23 09:44 Dose: 100 mg Documented By: LENNY Glucose (Glucose Gel 15 Gm Gel..Gram.) 15 gm PO Q15M PRN; Protocol PRN Reason: per Hypoglycemia Standing Ord. Guaifenesin/Codeine Phosphate (Guaifen/Codeine Sf 200/20/10ml 10 Ml Liquid) 5 ml PO QID [facility] Last Admin: 05/09/23 09:44 Dose: 5 ml Documented By: LENNY Guaifenesin/Dextromethorphan (Guaifenesin Dm 100/10/5 Ml 5 Ml Syrup) 10 ml PO Q6H PRN PRN Reason: cough Last Admin: 05/07/23 09:21 Dose: 10 ml Documented By: IZZY Heparin Sodium (Porcine) (Heparin Sodium,Porcine 5,000 Unit/Ml Vial) 5,000 unit SUBCUT Q12H [facility] Last Admin: 05/09/23 09:43 Dose: 5,000 unit Documented By: LENNY Vancomycin HCl 500 mg/ Sodium (Chloride) 110 mls @ 110 mls/hr IV MoWeFr@2000 [facility] Insulin Human Lispro (Insulin Lispro 100 Unit/Ml 3 Ml Vial) 0 unit SUBCUT QIDACHS [facility]; Protocol Last Admin: 05/09/23 08:05 Dose: Not Given Documented By: LENNY Non-Admin Reason: No Insulin Coverage Levalbuterol HCl (Levalbuterol Hcl 1.25 Mg/3 Ml Vial.Neb) 1.25 mg INHALE Q2H PRN PRN Reason: Shortness of Breath/Wheezing Levothyroxine Sodium (Levothyroxine Sodium 100 Mcg Tablet) 100 mcg PO DAILY@0600 [facility] Last Admin: 05/09/23 05:30 Dose: 100 mcg Documented By: KIMBERLY Nitroglycerin (Nitroglycerin 0.4 Mg Tab.Subl) 0.4 mg SUBLINGUAL Q5M PRN PRN Reason: chest pain Last Admin: 05/09/23 06:29 Dose: 0.4 mg Documented By: KIMBERLY Ondansetron HCl (Ondansetron Hcl 4 Mg/2 Ml Vial) 4 mg IVPUSH Q8H PRN PRN Reason: Nausea and Vomiting Pharmacy Consult (Consult Rx Vancomycin Dosing) 1 each MISCELLANE DAILY PRN PRN Reason: Consult order Prednisone (Prednisone 20 Mg Tablet) 40 mg PO DAILY [facility] Last Admin: 05/09/23 09:43 Dose: 40 mg Documented By: LENNY Ranolazine (Ranolazine 500 Mg Tab.Er.12h) 500 mg PO BID [facility] Last Admin: 05/09/23 09:44 Dose: 500 mg Documented By: LENNY Sodium Chloride (0.9 % Sodium Chloride Flush 3 Ml Syringe) 3 ml IVFLUSH QSHIFT [facility] Last Admin: 05/09/23 09:43 Dose: 3 ml Documented By: LENNY Labs 05/07/23 06:43 05/09/23 06:15 Labs: Laboratory Results - last 24 hr 05/08/23 05/08/23 05/08/23 08:33 11:16 15:55 Hold Purple Top Anion Gap TNP Estim Creat Clear Calc 8.5 Estimated GFR 8 POC Glucose 161 H 193 H Random Glucose TNP Calcium TNP Random Vancomycin 10/05/08/23 05/09/23 18:06 21:38 06:15 Hold Purple Top SEE NOTE Anion Gap 22 H Estim Creat Clear Calc 10.3 11.5 Estimated GFR 10 11 POC Glucose 194 H Random Glucose 167 H Calcium 8.0 L D Random Vancomycin 14.8 L 05/09/23 07:52 Hold Purple Top Anion Gap Estim Creat Clear Calc Estimated GFR POC Glucose 105 Random Glucose Calcium Random Vancomycin Microbiology Microbiology Results: Microbiology 05/07/23 11:14 Blood Culture - Preliminary Blood - Venous No growth after 24 hours. 05/07/23 11:14 Blood Culture - Preliminary Blood - Venous No growth after 24 hours. 05/04/23 17:57 Blood Culture - Final Blood - Venous Staphylococcus aureus 05/04/23 17:45 Blood Culture - Final Blood - Venous Staphylococcus aureus Assessment and Plan (1) Bacteremia: Status: Acute Plan This is an 82-year-old female with history of NSTEMI, diastolic heart failure, chronic respiratory failure with hypoxia and hypercapnia on 4 L supplemental O2 at baseline, ESRD on dialysis MWF, interstitial lung disease, pvg-axzftei-zbrnkvbbw type 2 diabetes, hyperlipidemia, hypothyroidism, restless leg syndrome who is severely obese admitted for acute copd exacerbation found to have rhinovirus and GPC bacteremia Acute on chronic respiratory failure with hypoxemia due to Sepsis/ bilateral LL pneumonia and rhino/entero virus Initially required bipap, weaned to oxymask now back on baseline 4 L of supplemental oxygen leukocytosis, tachycardia, and tachypnea resolved, Lactic acid normal. Renal function r/t esrd needing dialysis. No end organ damage or hypotension ct chest showed bilateral consolidation and a new 1 cm left upper lobe nodule probably representing infectious or inflammatory process, PCT 1.09 - will need outpatient follow up imaging to ensure resolution treated with IV ceftriaxone and IV azithromycin (initiated 05/04), azithromycin d/c 05/07. plan for 5 days of ceftriaxone continue cough medications, symptomatic management GPC bacteremia blood cultures x2 positive for MSSA vanco added 05/06 repeat blood cultures from 05/07 preliminary negative echo obtained, technically difficult, can't rule out vegetation, but pt afebrile and repeat cultures negative making endocarditis less likely has spinal stimulator in place but no overlying erythema or tenderness on exam RUE fistula nontender with no overlying erythema seen by ID - abx TBD ILD exacerbation due to bacterial pneumonia and viral infection with rhino/enterovirus will change to po prednisone 05/09 continue breathing treatments, cough medication Non anion gap metabolic acidosis r/t esrd ESRD on dialysis nephrology following Chronic macrocytic anemia vitamin b12 and folic acid levels normal,h/h at baseline and above transfusion threshold iew-ytzsset-cxnnyaiif type 2 diabetes elevated blood sugars continue diabetic diet and insulin sliding scale HFpEF no acute exacerbation, clinically euvolemic, elevated BNP due to esrd. Elevated trops initial 27, repeat 29, likely related to demand secondary to hypoxia hypothyroidism continue levothyroxine RLS continue gabapentin Severe obesity with BMI greater than 38 working on weight loss, down about 10kg last 4month, encourage continued weight loss efforts DVT prophylaxis-heparin DNR/DNI Attending - Dr. Lilly DISPO PT consult pending Patient requires continued inpatient hospitalization for management of bacteremia Time Spent With Patient Time: Total time managing care of this patient today ____ minutes. Quality Stroke Does the patient have a stroke diagnosis?: No VTE Prior VTE?: No VTE Risk Level:: Medical - moderate - high VTE Device Contraindication: Treatment Not Indicated VTE Drug Contraindication: N/A - Med Ordered
[2023-05-09 11:26] LABS: Glucose, Whole Blood 123 mg/dL (60-115)
--- NOTE | 2023-05-09 16:44 | P.PNNP_ITS ---
Subjective Subjective Date of Service: 05/09/23 Interval history: seen and examined this morning Had HD yesterday still with some cough, but feeling better overall. no fever Physical Exam 2 Vital Signs: Vital Signs: Last Vital Signs Temp 97.2 F 05/09/23 15:25 Pulse 73 05/09/23 15:42 Resp 22 H 05/09/23 15:42 BP 117/56 L 05/09/23 15:25 Pulse Ox 95 05/09/23 15:25 O2 Del Method Oxymask 05/09/23 15:25 O2 Flow Rate 4 05/09/23 15:25 FiO2 98 05/08/23 23:31 BMI result Body Mass Index 38.5 Appearing in no acute distress lung sounds are clear to auscultation heart regular rate rhythm, clear S1, S2 positive bowel sounds, abdomen is soft, nontender neuro patient is alert x3, no focal deficits Objective Data Labs 05/07/23 06:43 05/09/23 06:15 Labs: Laboratory Results - last 24 hr 05/08/23 05/08/23 05/09/23 18:06 21:38 06:15 Hold Purple Top SEE NOTE Sodium 133 L Potassium 5.1 Chloride 98 Carbon Dioxide 18 L Anion Gap 22 H BUN 97 H Creatinine 4.38 H* 3.91 H Estim Creat Clear Calc 10.3 11.5 Estimated GFR 10 11 POC Glucose 194 H Random Glucose 167 H Calcium 8.0 L D Random Vancomycin 14.8 L 05/09/23 05/09/23 07:52 11:21 Hold Purple Top Sodium Potassium Chloride Carbon Dioxide Anion Gap BUN Creatinine Estim Creat Clear Calc Estimated GFR POC Glucose 105 123 H Random Glucose Calcium Random Vancomycin Microbiology Microbiology Results: Microbiology 05/07/23 11:14 Blood - Venous Blood Culture - Preliminary No growth after 48 hours. 05/07/23 11:14 Blood - Venous Blood Culture - Preliminary No growth after 48 hours. 05/04/23 17:57 Blood - Venous Blood Culture - Final Staphylococcus aureus 05/04/23 17:45 Blood - Venous Blood Culture - Final Staphylococcus aureus Procedures Date of Service Date of Service: 05/09/23 Assessment & Plan Assessment and plan (1) ESRD needing dialysis: Status: Acute Assessment and Plan: 82-year-old female with history of NSTEMI, diastolic heart failure, chronic respiratory failure with hypoxia and hypercapnia on 4 L supplemental O2 at baseline, ESRD on dialysis MWF, interstitial lung disease, ylk-ghwkywp-opxxpuobg type 2 diabetes, hyperlipidemia, hypothyroidism, restless leg syndrome who is severely obese admitted for acute copd exacerbation 1. ESRD on HD 2. Acute on chronic respiratory failure with hypoxemia due to sepsis/ bilateral LL pneumonia and viral infection with rhino and entero virus 3. MEt acidosis 4. Anemia Continue HD MWF Vol removal as tolerated Bronchodialaters Antibiotics as per medical team No need for Epo Thx Dr. Dumas (2) Hypoxia: Status: Acute (3) Acute on chronic diastolic (congestive) heart failure: Status: Acute (4) CHF exacerbation: Status: Acute (5) Pneumonia: Status: Acute (6) Acute on chronic respiratory failure with hypoxemia: Status: Acute Assessment and Plan: 82-year-old female with history of NSTEMI, diastolic heart failure, chronic respiratory failure with hypoxia and hypercapnia on 4 L supplemental O2 at baseline, ESRD on dialysis MWF, interstitial lung disease, enz-uvxolyq-ssbtpuiwo type 2 diabetes, hyperlipidemia, hypothyroidism, restless leg syndrome who is severely obese admitted for acute copd exacerbation 1. ESRD on HD 2. Acute on chronic respiratory failure with hypoxemia due to sepsis/ bilateral LL pneumonia and viral infection with rhino and entero virus 3. MEt acidosis 4. Anemia HD in AM Bronchodialaters Antibiotics as per medical team No need for Epo Thx Dr. Dumas DNR/DNI Time Spent With Patient Time: Total time managing care of this patient today ____ minutes. Progress Note: Quality Stroke Does the patient have a stroke diagnosis?: No
[2023-05-09 16:52] LABS: Glucose, Whole Blood 180 mg/dL (60-115)
[2023-05-09] MEDS: Insulin Lispro 100 UNIT/ML 3 ML VIAL SUBCUT ×2 (16:58→22:01)
[2023-05-09 20:42] LABS: Glucose, Whole Blood 167 mg/dL (60-115)
[2023-05-09] MEDS: Atorvastatin Calcium 20 MG TABLET PO (22:00)
[2023-05-09] MEDS: Zolpidem Tartrate 5 MG TABLET PO (22:00)
[2023-05-10] VITALS (13 sets, daily range): BP systolic 113–164; BP diastolic 48–76; PULSE 73–97; RESP 16–20; TEMP 36.1–37.1; O2SAT 89–99
--- NOTE | 2023-05-10 | ECG_ITS ---
Test Reason : hyperkalemia Blood Pressure : / mmHG Vent. Rate : 078 BPM Atrial Rate : 078 BPM P-R Int : 212 ms QRS Dur : 090 ms QT Int : 372 ms P-R-T Axes : 041 018 019 degrees QTc Int : 424 ms Sinus rhythm with 1st degree A-V block Abnormal ECG When compared with ECG of 10-MAY-2023 02:00, No significant change was found Referred By: Ary Moreno Electronically Signed By:OSMANI DALE MD
--- NOTE | 2023-05-10 | ECG_ITS ---
Test Reason : chest pain Blood Pressure : / mmHG Vent. Rate : 074 BPM Atrial Rate : 074 BPM P-R Int : 218 ms QRS Dur : 090 ms QT Int : 380 ms P-R-T Axes : 050 031 032 degrees QTc Int : 421 ms Sinus rhythm with 1st degree A-V block Otherwise normal ECG When compared with ECG of 04-MAY-2023 11:49, T wave amplitude has increased in Anterior leads Referred By: Tiera Damon Electronically Signed By:OSMANI DALE MD
[2023-05-10] MEDS: Nitroglycerin 0.4 MG TAB.SUBL SUBLINGUAL ×2 (02:09→04:19)
[2023-05-10] MEDS: Throat Lozenge, Medicated LOZENGE 1 LOZENGE MUCOUS MEM (02:16)
[2023-05-10 02:35] LABS: Troponin-I High Sensitivity 11.1 ng/L (<3.5-17.0)
--- NOTE | 2023-05-10 04:33 | PC.NURSE ---
patient complained of chest pain at 0200. EKG, troponin and vital signs were obtained and all came back normal. Dr. harper approved giving the patient nitroglycerin and it was administered at 02:09. patient was sleeping comfortably till 0415 when she began complaining of chest pain again. vitals were within normal range and a second dose of Nitroglycerin was given. patient is currently asleep.
[2023-05-10] MEDS: Levothyroxine Sodium 100 MCG TABLET PO (06:31)
[2023-05-10 07:03] LABS: Anion Gap 24 (12-20); Blood Urea Nitrogen 98 mg/dL (9-16); Calcium 7.5 mg/dL (8.4-10.2); Carbon Dioxide 18 mmol/L (22-29); Chloride 98 mmol/L (96-108); Glucose Random 98 mg/dL (60-115); Potassium 5.9 mmol/L (3.3-5.1); Sodium 134 mmol/L (135-145)
[2023-05-10 07:19] LABS: Creatinine Clr Calc Pharmacy 8.6; Estimated Glomerular Filt Rate 8
[2023-05-10] MEDS: Albuterol/Iprat 2.5/0.5MG 3 ML AMPUL.NEB INHALE ×4 (07:46→20:27)
[2023-05-10] MEDS: Heparin Sodium,Porcine 5,000 UNIT/ML VIAL 5000 UNIT SUBCUT ×2 (07:51→21:33)
[2023-05-10] MEDS: Sodium Zirconium Cyclosilicate 10 GM POWD.PACK PO ×2 (07:51→17:35)
[2023-05-10] MEDS: guaiFEN/Codeine SF 200/20/10ML 10 ML LIQUID 5 ML PO ×4 (07:51→21:34)
[2023-05-10] MEDS: Gabapentin 100 MG CAPSULE PO ×3 (07:52→21:34)
[2023-05-10] MEDS: Aspirin Enteric Coated 81 MG TABLET.DR PO (07:52)
[2023-05-10] MEDS: predniSONE 20 MG TABLET 40 MG PO (07:52)
[2023-05-10] MEDS: Ranolazine 500 MG TAB.ER.12H PO ×2 (07:52→21:34)
[2023-05-10] MEDS: Escitalopram Oxalate 10 MG TABLET PO (07:52)
[2023-05-10] MEDS: Famotidine 20 MG TABLET PO (07:52)
[2023-05-10] MEDS: 0.9 % Sodium Chloride Flush 3 ML SYRINGE IVFLUSH ×2 (07:53→16:44)
[2023-05-10 07:58] LABS: Glucose, Whole Blood 93 mg/dL (60-115)
--- NOTE | 2023-05-10 10:29 | HO.PM.IMPN ---
Subjective Subjective Date of Service: 05/10/23 Interval History: seen and examined this morning follow up for COPD/ILD/rhinovirus; bacteremia still with some cough, but feeling better overall. no fever Review of Systems Review of Systems: Yes all other systems are reviewed and are negative Constitutional Constitutional: Denies chills and Denies fever(s) Cardiovascular Cardiovascular: Denies chest pain, Denies palpitations and Denies dyspnea Respiratory Respiratory: Reports cough and Denies dyspnea Endocrine Endocrine: Denies palpitations Physical Exam Vital Signs: Vital Signs: Last Vital Signs Temp 97.2 F 05/10/23 08:00 Pulse 78 05/10/23 08:00 Resp 16 05/10/23 08:00 BP 113/63 05/10/23 08:00 Pulse Ox 97 05/10/23 08:00 O2 Del Method Oxymask 05/10/23 08:00 O2 Flow Rate 4 05/10/23 08:00 FiO2 98 05/08/23 23:31 BMI result Body Mass Index 38.5 Appearing in no acute distress lung sounds are clear to auscultation heart regular rate rhythm, clear S1, S2 positive bowel sounds, abdomen is soft, nontender neuro patient is alert x3, no focal deficits Objective Data Active Medications Acetaminophen (Acetaminophen 325 Mg Tablet) 650 mg PO Q6H PRN PRN Reason: Pain, Mild (Pain Scale 1-3) Last Admin: 05/07/23 09:20 Dose: 650 mg Documented By: IZZY Albuterol Sulfate (Albuterol Sulfate 90 Mcg 8 Gm Inhaler) 2 puff INHALE Q4H PRN PRN Reason: Shortness Of Breath Or Wheezing Albuterol/Ipratropium (Albuterol/Iprat 2.5/0.5mg 3 Ml Ampul.Neb) 3 ml INHALE RQ4H WHILE AWAKE [facility] Last Admin: 05/10/23 07:46 Dose: 3 ml Documented By: LOUIS Aspirin (Aspirin Enteric Coated 81 Mg Tablet.) 81 mg PO DAILY [facility] Last Admin: 05/10/23 07:52 Dose: 81 mg Documented By: LENNY Atorvastatin Calcium (Atorvastatin Calcium 20 Mg Tablet) 20 mg PO BEDTIME [facility] Last Admin: 05/09/23 22:00 Dose: 20 mg Documented By: MARCIAL Benzocaine (Throat Lozenge, Medicated Lozenge) 1 lozenge MUCOUS MEM Q2H PRN PRN Reason: Sore Throat Last Admin: 05/10/23 02:16 Dose: 1 lozenge Documented By: MARCIAL Dextrose (Dextrose 50 % 25 Gm/50 Ml Syringe) 25 gm IVPUSH Q15M PRN; Protocol PRN Reason: per Hypoglycemia Standing Ord. Docusate Sodium (Docusate Sodium 100 Mg Capsule) 100 mg PO DAILY PRN PRN Reason: Constipation Escitalopram Oxalate (Escitalopram Oxalate 10 Mg Tablet) 10 mg PO DAILY [facility] Last Admin: 05/10/23 07:52 Dose: 10 mg Documented By: LENNY Famotidine (Famotidine 20 Mg Tablet) 20 mg PO DAILY [facility] Last Admin: 05/10/23 07:52 Dose: 20 mg Documented By: LENNY Gabapentin (Gabapentin 100 Mg Capsule) 100 mg PO TID [facility] Last Admin: 05/10/23 07:52 Dose: 100 mg Documented By: LENNY Glucose (Glucose Gel 15 Gm Gel..Gram.) 15 gm PO Q15M PRN; Protocol PRN Reason: per Hypoglycemia Standing Ord. Guaifenesin/Codeine Phosphate (Guaifen/Codeine Sf 200/20/10ml 10 Ml Liquid) 5 ml PO QID [facility] Last Admin: 05/10/23 07:51 Dose: 5 ml Documented By: LENNY Guaifenesin/Dextromethorphan (Guaifenesin Dm 100/10/5 Ml 5 Ml Syrup) 10 ml PO Q6H PRN PRN Reason: cough Last Admin: 05/07/23 09:21 Dose: 10 ml Documented By: IZZY Heparin Sodium (Porcine) (Heparin Sodium,Porcine 5,000 Unit/Ml Vial) 5,000 unit SUBCUT Q12H [facility] Last Admin: 05/10/23 07:51 Dose: 5,000 unit Documented By: LENNY Vancomycin HCl 500 mg/ Sodium (Chloride) 110 mls @ 110 mls/hr IV MoWeFr@2000 [facility] Insulin Human Lispro (Insulin Lispro 100 Unit/Ml 3 Ml Vial) 0 unit SUBCUT QIDACHS [facility]; Protocol Last Admin: 05/10/23 07:39 Dose: Not Given Documented By: LENNY Non-Admin Reason: No Insulin Coverage Levalbuterol HCl (Levalbuterol Hcl 1.25 Mg/3 Ml Vial.Neb) 1.25 mg INHALE Q2H PRN PRN Reason: Shortness of Breath/Wheezing Levothyroxine Sodium (Levothyroxine Sodium 100 Mcg Tablet) 100 mcg PO DAILY@0600 [facility] Last Admin: 05/10/23 06:31 Dose: 100 mcg Documented By: MARCIAL Nitroglycerin (Nitroglycerin 0.4 Mg Tab.Subl) 0.4 mg SUBLINGUAL Q5M PRN PRN Reason: chest pain Last Admin: 05/10/23 04:19 Dose: 0.4 mg Documented By: MARCIAL Ondansetron HCl (Ondansetron Hcl 4 Mg/2 Ml Vial) 4 mg IVPUSH Q8H PRN PRN Reason: Nausea and Vomiting Pharmacy Consult (Consult Rx Vancomycin Dosing) 1 each MISCELLANE DAILY PRN PRN Reason: Consult order Prednisone (Prednisone 20 Mg Tablet) 40 mg PO DAILY [facility] Last Admin: 05/10/23 07:52 Dose: 40 mg Documented By: LENNY Ranolazine (Ranolazine 500 Mg Tab.Er.12h) 500 mg PO BID [facility] Last Admin: 05/10/23 07:52 Dose: 500 mg Documented By: LENNY Sodium Chloride (0.9 % Sodium Chloride Flush 3 Ml Syringe) 3 ml IVFLUSH QSHIFT [facility] Last Admin: 05/10/23 07:53 Dose: 3 ml Documented By: LENNY Zolpidem Tartrate (Zolpidem Tartrate 5 Mg Tablet) 5 mg PO BEDTIME PRN PRN Reason: Insomnia Last Admin: 05/09/23 22:00 Dose: 5 mg Documented By: MARCIAL Labs 05/07/23 06:43 05/10/23 06:20 Labs: Laboratory Results - last 24 hr 05/09/23 05/09/23 05/09/23 11:21 16:37 19:52 Hold Purple Top Anion Gap Estim Creat Clear Calc Estimated GFR POC Glucose 123 H 180 H 167 H Random Glucose Calcium 05/10/23 05/10/23 05/10/23 05:45 06:20 07:36 Hold Purple Top SEE NOTE Anion Gap 24 H Estim Creat Clear Calc Cancelled 8.6 Estimated GFR Cancelled 8 POC Glucose 93 Random Glucose 98 Calcium 7.5 L D Microbiology Microbiology Results: Microbiology 05/07/23 11:14 Blood Culture - Preliminary Blood - Venous No growth after 48 hours. 05/07/23 11:14 Blood Culture - Preliminary Blood - Venous No growth after 48 hours. Assessment and Plan (1) Bacteremia: Status: Acute Plan This is an 82-year-old female with history of NSTEMI, diastolic heart failure, chronic respiratory failure with hypoxia and hypercapnia on 4 L supplemental O2 at baseline, ESRD on dialysis MWF, interstitial lung disease, zvy-lbsmpta-fotcvvkye type 2 diabetes, hyperlipidemia, hypothyroidism, restless leg syndrome who is severely obese admitted for acute copd exacerbation found to have rhinovirus and GPC bacteremia Hyperkalemia one dose of Lokelma check BMP this afternoon ESRD on dialysis creatining up to 5.24 today nephrology following MWF dialysis Acute on chronic respiratory failure with hypoxemia due to Sepsis/ bilateral LL pneumonia and rhino/entero virus Initially required bipap, weaned to oxymask now back on baseline 4 L of supplemental oxygen leukocytosis, tachycardia, and tachypnea resolved, Lactic acid normal. Renal function r/t esrd needing dialysis. No end organ damage or hypotension ct chest showed bilateral consolidation and a new 1 cm left upper lobe nodule probably representing infectious or inflammatory process, PCT 1.09 - will need outpatient follow up imaging to ensure resolution treated with IV ceftriaxone and IV azithromycin (initiated 05/04), azithromycin d/c 05/07. plan for 5 days of ceftriaxone continue cough medications, symptomatic management Antibiotic at dialysis outpatient GPC bacteremia blood cultures x2 positive for MSSA vanco added 05/06 repeat blood cultures from 05/07 preliminary negative echo obtained, technically difficult, can't rule out vegetation, but pt afebrile and repeat cultures negative making endocarditis less likely has spinal stimulator in place but no overlying erythema or tenderness on exam RUE fistula nontender with no overlying erythema seen by ID - abx TBD ILD exacerbation due to bacterial pneumonia and viral infection with rhino/enterovirus will change to po prednisone 05/09 continue breathing treatments, cough medication Non anion gap metabolic acidosis r/t esrd ESRD on dialysis nephrology following Chronic macrocytic anemia vitamin b12 and folic acid levels normal,h/h at baseline and above transfusion threshold lsb-ukrudld-lqexstvhh type 2 diabetes elevated blood sugars continue diabetic diet and insulin sliding scale HFpEF no acute exacerbation, clinically euvolemic, elevated BNP due to esrd. Elevated trops initial 27, repeat 29, likely related to demand secondary to hypoxia hypothyroidism continue levothyroxine RLS continue gabapentin Severe obesity with BMI greater than 38 working on weight loss, down about 10kg last 4month, encourage continued weight loss efforts DVT prophylaxis-heparin DNR/DNI Attending - Dr. Lilly DISPO PT consult pending Patient requires continued inpatient hospitalization for management of bacteremia Time Spent With Patient Time: Total time managing care of this patient today ____ minutes. Quality Stroke Does the patient have a stroke diagnosis?: No VTE Prior VTE?: No VTE Risk Level:: Medical - moderate - high VTE Device Contraindication: Treatment Not Indicated VTE Drug Contraindication: N/A - Med Ordered
[2023-05-10] MEDS: Insulin Lispro 100 UNIT/ML 3 ML VIAL SUBCUT ×2 (11:45→16:43)
[2023-05-10 12:05] LABS: Glucose, Whole Blood 184 mg/dL (60-115)
[2023-05-10] MEDS: Sodium Zirconium Cyclosilicate 5 GM POWD.PACK 15 GM PO ×2 (12:47→13:58)
--- NOTE | 2023-05-10 13:20 | P.PNNP_ITS ---
Subjective Subjective Date of Service: 05/10/23 Interval history: seen and examined this morning K is high follow up for COPD/ILD/rhinovirus; bacteremia still with some cough, but feeling better overall. no fever Physical Exam 2 Vital Signs: Vital Signs: Last Vital Signs Temp 97.8 F 05/10/23 12:00 Pulse 79 05/10/23 12:11 Resp 20 05/10/23 12:11 BP 115/48 L 05/10/23 12:00 Pulse Ox 98 05/10/23 12:00 O2 Del Method Oxymask 05/10/23 12:00 O2 Flow Rate 4 05/10/23 12:00 FiO2 98 05/08/23 23:31 BMI result Body Mass Index 38.5 Appearing in no acute distress lung sounds are clear to auscultation heart regular rate rhythm, clear S1, S2 positive bowel sounds, abdomen is soft, nontender neuro patient is alert x3, no focal deficits Objective Data Labs 05/07/23 06:43 05/10/23 06:20 Labs: Laboratory Results - last 24 hr 05/09/23 05/09/23 05/10/23 16:37 19:52 02:09 Hold Purple Top Sodium Potassium Chloride Carbon Dioxide Anion Gap BUN Creatinine Estim Creat Clear Calc Estimated GFR POC Glucose 180 H 167 H Random Glucose Calcium Troponin I High Sens 11.1 D 05/10/23 05/10/23 05/10/23 05:45 06:20 07:36 Hold Purple Top SEE NOTE Sodium 134 L Potassium 5.9 H Chloride 98 Carbon Dioxide 18 L Anion Gap 24 H BUN 98 H Creatinine Cancelled 5.24 H* Estim Creat Clear Calc Cancelled 8.6 Estimated GFR Cancelled 8 POC Glucose 93 Random Glucose 98 Calcium 7.5 L D Troponin I High Sens 05/10/23 11:26 Hold Purple Top Sodium Potassium Chloride Carbon Dioxide Anion Gap BUN Creatinine Estim Creat Clear Calc Estimated GFR POC Glucose 184 H Random Glucose Calcium Troponin I High Sens Microbiology Microbiology Results: Microbiology 05/07/23 11:14 Blood - Venous Blood Culture - Preliminary No growth after 48 hours. 05/07/23 11:14 Blood - Venous Blood Culture - Preliminary No growth after 48 hours. 05/04/23 17:57 Blood - Venous Blood Culture - Final Staphylococcus aureus 05/04/23 17:45 Blood - Venous Blood Culture - Final Staphylococcus aureus Procedures Date of Service Date of Service: 05/10/23 Assessment & Plan Assessment and plan (1) ESRD needing dialysis: Status: Acute Assessment and Plan: 82-year-old female with history of NSTEMI, diastolic heart failure, chronic respiratory failure with hypoxia and hypercapnia on 4 L supplemental O2 at baseline, ESRD on dialysis MWF, interstitial lung disease, paw-ubeoenn-djjrbgyoy type 2 diabetes, hyperlipidemia, hypothyroidism, restless leg syndrome who is severely obese admitted for acute copd exacerbation 1. ESRD on HD 2. Acute on chronic respiratory failure with hypoxemia due to sepsis/ bilateral LL pneumonia and viral infection with rhino and entero virus 3. Met acidosis 4. Anemia 5. Hyperkalemia Continue HD MWF Lolelma for high K Low K diet Vol removal as tolerated Bronchodialaters Antibiotics as per medical team - If pt needs out pt Vanco please notify us the dose and duration No need for Epo Thx Dr. Dumas (2) Bacteremia: Status: Acute (3) Hypoxia: Status: Acute (4) Acute on chronic diastolic (congestive) heart failure: Status: Acute (5) CHF exacerbation: Status: Acute (6) Pneumonia: Status: Acute (7) Acute on chronic respiratory failure with hypoxemia: Status: Acute Time Spent With Patient Time: Total time managing care of this patient today ____ minutes. Progress Note: Quality Stroke Does the patient have a stroke diagnosis?: No
[2023-05-10 13:46] LABS: Potassium 6.6 mmol/L (3.3-5.1)
[2023-05-10 14:20] LABS: Magnesium 2.4 mg/dL (1.6-2.6)
[2023-05-10] MEDS: Insulin Regular, Human 100 UNIT/ML 3 ML VIAL 10 UNIT IVPUSH ×2 (14:30→17:36)
[2023-05-10] MEDS: Furosemide 100 MG/10 ML VIAL 80 MG IVPUSH (14:30)
[2023-05-10] MEDS: Dextrose 50 % 25 GM/50 ML SYRINGE IVPUSH ×2 (14:30→17:36)
[2023-05-10] MEDS: Calcium Gluconate/NaCl,Iso-Osm 1 GM/50 ML PLAST..BAG IV (14:43)
[2023-05-10] MEDS: oxyCODONE HCl Immed Release 5 MG TABLET PO ×2 (15:30→22:03)
[2023-05-10 16:17] LABS: Glucose, Whole Blood 186 mg/dL (60-115)
[2023-05-10 17:17] LABS: Potassium 6.3 mmol/L (3.3-5.1)
[2023-05-10 17:18] LABS: Potassium, Plasma 6.2 mmol/L (3.3-5.1)
[2023-05-10 20:36] LABS: Potassium 5.7 mmol/L (3.3-5.1)
[2023-05-10 21:15] LABS: Glucose, Whole Blood 111 mg/dL (60-115)
[2023-05-10] MEDS: Atorvastatin Calcium 20 MG TABLET PO (21:34)
--- NOTE | 2023-05-11 01:50 | CONS_ITS ---
DATE OF SERVICE: 05/05/2023 REASON FOR CONSULTATION: Consult requested by the medical team to evaluate and help in management of patient with end-stage renal disease, who presents to the hospital with hypoxemic, hypercarbic respiratory failure. HISTORY OF PRESENT ILLNESS: The patient is an 82-year-old female with past medical history of [id number] LA, history of diastolic heart failure with chronic respiratory failure with hypoxemia and hypercarbia, ESRD on hemodialysis on Thursday, Thursday, Thursday, COPD, restless legs syndrome, who presents to the hospital with cough, shortness of breath, and dark yellow sputum which is productive. She has been seen by a primary care physician and has been on multiple courses of prednisone. She reported dyspnea, which has been worsening. She apparently has been feeling unwell, missed the last dialysis treatment. Her dialysis is supposed to be yesterday. She did not have any fever, chills, sore throat, abdominal pain, nausea, vomiting, urinary symptoms, diarrhea. In the ER, patient was hypoxemic and was placed on BiPAP. The patient was tachycardic. Her potassium level was acceptable. Renal consult has been requested to help with management of her ESRD. She was treated with IV prednisone, DuoNeb with improvement of her symptoms. She is also on cefepime and Zithromax. PAST MEDICAL HISTORY: History of ESRD, on hemodialysis, history of heart failure with preserved ejection fraction, history of chronic cough, respiratory failure/hypoxemia, history of interstitial lung disease, depression, dyslipidemia, osteoarthritis of multiple joints, acquired hypothyroidism, fibromyalgia, and type 2 diabetes mellitus. FAMILY HISTORY: Brother, son, and daughter with substance abuse disorder. PAST SURGICAL HISTORY: Includes tonsillectomy, appendectomy, fusion of cervical spine, anal fissurectomy, hemorrhoidectomy, partial hysterectomy. PERSONAL AND SOCIAL HISTORY: Patient does not drink alcohol. Quit smoking many years ago. Does not use drugs. ALLERGIES: PATIENT HAS ALLERGIES TO NSAIDS AND HMG-COA REDUCTASE INHIBITORS. MEDICATION: As an outpatient and inpatient were reviewed. PHYSICAL EXAMINATION: GENERAL: Patient is resting in the bed, awake, in respiratory distress. VITAL SIGNS: Blood pressure 138/60, pulse 65, afebrile. HEENT: Shows pupils equal, round, reactive bilaterally to light. Positive jugular venous distention is noted. NECK: Supple. CARDIOVASCULAR SYSTEM: S1, S2 without rub. RESPIRATORY SYSTEM: Mildly decreased in bases. Basal crepitation. ABDOMEN: Obese, soft. Bowel sounds normal. EXTREMITIES: Showed positive edema. LABORATORY DATA: Done recently sodium 135, potassium 4.8, chloride 105, CO2 of 16, BUN 102, creatinine 5.40, glucose 215. WBC is 15.6, hemoglobin 10.9, hematocrit 33.5, platelets were 202. IMPRESSION: 1. Elderly female with end-stage renal disease, on hemodialysis. Missed dialysis treatment. 2. Acute on chronic respiratory failure in the setting of pneumonia and volume overload. 3. Metabolic acidosis in the setting of missed dialysis treatment. 4. Anemia of chronic disease. RECOMMENDATION: At this juncture, I have arranged for hemodialysis for the patient in the inpatient dialysis unit. We will try to remove fluid as tolerated and use potassium per protocol. She missed treatment. We will bring her back for another treatment in a.m. and keep her on her regular schedule, which is Thursday, Thursday, Thursday. Volume removal as tolerated. Agree with IV ceftriaxone and azithromycin. There is no immediate need for erythropoietin for the patient. Thank you for allowing me to participate in medical management of the patient. MD DAISY Marcano/FLETCHER / [phone]
[2023-05-11 03:53] VITALS: BP 126/61; PULSE 80; RESP 20; TEMP 36.3; O2SAT 96
[2023-05-11] MEDS: Levothyroxine Sodium 100 MCG TABLET PO (06:34)
[2023-05-11 07:16] VITALS: BP 109/56; PULSE 79; RESP 20; TEMP 36.7; O2SAT 95
[2023-05-11 08:06] LABS: Creatinine Clr Calc Pharmacy 7.1; Estimated Glomerular Filt Rate 6
[2023-05-11 08:12] LABS: Glucose, Whole Blood 99 mg/dL (60-115)
[2023-05-11 08:12] LABS: Potassium 5.3 mmol/L (3.3-5.1)
[2023-05-11 11:33] VITALS: BP 123/62; PULSE 82; RESP 19; TEMP 36.6; O2SAT 98
[2023-05-11 11:37] LABS: Glucose, Whole Blood 134 mg/dL (60-115)
[2023-05-11] MEDS: Aspirin Enteric Coated 81 MG TABLET.DR PO (13:53)
[2023-05-11] MEDS: Escitalopram Oxalate 10 MG TABLET PO (13:53)
[2023-05-11] MEDS: Gabapentin 100 MG CAPSULE PO (13:53)
[2023-05-11] MEDS: Ranolazine 500 MG TAB.ER.12H PO (13:53)
[2023-05-11] MEDS: predniSONE 20 MG TABLET 40 MG PO (13:53)
[2023-05-11] MEDS: guaiFEN/Codeine SF 200/20/10ML 10 ML LIQUID 5 ML PO (13:53)
[2023-05-11] MEDS: Famotidine 20 MG TABLET PO (13:54)
[2023-05-11] MEDS: Throat Lozenge, Medicated LOZENGE 1 LOZENGE MUCOUS MEM (13:58)
--- NOTE | 2023-05-11 14:49 | PM.DS ---
DS: Providers Provider Date of Service: 05/11/23 Date of admission: 05/04/23 19:07 Primary care physician: Christina Paiz MD Consults: 05/04/23 19:07 Consult to Nephrology Routine Consulting Provider: Nhan Dumas Reason for consultation: esrd on dialysis 05/07/23 07:55 Consult to Infectious Diseases Routine Consulting Provider[place] [facility] [place] Reason for consultation: GPC bacteremia Has provider been notified: No DS: Diagnosis Discharge Diagnosis (1) ESRD needing dialysis: Status: Acute (2) Bacteremia: Status: Acute (3) Hypoxia: Status: Acute (4) Acute on chronic diastolic (congestive) heart failure: Status: Acute (5) CHF exacerbation: Status: Acute (6) Pneumonia: Status: Acute (7) Acute on chronic respiratory failure with hypoxemia: Status: Acute DS: Summary Hospital Course Hospital Course: 82-year-old female with history of NSTEMI, diastolic heart failure, chronic respiratory failure with hypoxia and hypercapnia on 4 L supplemental O2 at baseline, ESRD on dialysis MWF, COPD, interstitial lung disease, ezr-aeiggae-qwioyjwcy type 2 diabetes, hyperlipidemia, hypothyroidism, restless leg syndrome who is severely obese with BMI greater than 38 presented to the ED earlier today for evaluation of dyspnea and worsening productive cough. She reports chronic cough with dark yellow sputum production and has been worsening over the last month. She has been seen by PCP and in ED and has been prescribed multiple courses of prednisone without effect. Yesterday, she reports her dyspnea worsened significantly. She states the shortness of breath is both at rest and with exertion. Due to feeling unwell, she missed dialysis last week once and again today. She denies any fevers at home, shaking chills, sore throat, sinus pain, sick contacts, abdominal pain, nausea, vomiting, urinary symptoms, diarrhea, lightheadedness, or palpitations. She states she does occasionally experience anginal chest pain and took a nitro this morning with good effect. Currently reporting pleuritic chest pain but denies any chest pressure. Upon EMS arrival, patient found to be hypoxic and placed on BiPAP. On arrival, patient tachycardic to 112, tachypneic to 35. No hypotension and patient is afebrile. She has been weaned from BiPAP to non-rebreather to OxyMask maintaining oximetry around 96%. She has a leukocytosis of 15.6. Mild macrocytic anemia. Creatinine 5440, baseline around 3.4-3.8. BUN 102. Electrolyte levels normal except for CO2 16. Random glucose 215. Lactic acid 1.9. Initial troponin 27.2, repeat 29.5. BNP 471. Procalcitonin 1.09. VBG with pH 7.26, pCO2 34, bicarb 15. Negative for influenza, COVID-19, RSV. Chest x-ray shows low lung volumes and interstitial lung disease similar to recent exams. Chest CT final read pending appears to have bilateral lower lobe consolidations. EKG shows sinus tachycardia, rate 108 with nonspecific T-wave abnormality in inferior leads unchanged from prior EKGs. In the ED, has received 125 mg IV methylprednisolone, DuoNeb with some improvement in work of breathing. She was also given empiric treatment with 1 g cefepime and 500 mg Zithromax. 82-year-old woman treated for acute on chronic hypoxemic respiratory failure secondary to bilateral lower lobe pneumonia and Rhino virus. Chest CT showed bilateral consolidations and a new 1 cm left upper lobe nodule for which she needs to follow up outpatient with her primary care provider for follow-up imaging. Initially required BiPAP weaned down to OxyMask in place on her baseline 4 L of supplemental oxygen. She was treated with Rocephin and azithromycin initially. Treated with prednisone. She did have a dry cough which was relieved with Robitussin. Blood culture subsequently came back positive for Staphylococcus aureus and was started on vancomycin And will be for total of 4 weeks and will receive this dose during her dialysis sessions Thursday, Thursday and Thursday. She had echocardiogram which did not show an obvious vegetation, she does have a spinal stimulator in place with no overlying erythema, tenderness and she did not have any fever during admission. she did have some episodes of hyperkalemia during hospitalization which was treated with insulin, D50, calcium gluconate and Lokelma with good effect. In terms of the respiratory failure this has resolved and she will be home with 4 more days of prednisone. she should follow low-potassium diet at home. ESRD on dialysis continue on dialysis schedule Thursday, Thursday and Thursday Chronic macrocytic anemia vitamin b12 and folic acid levels normal,h/h at baseline and remained above transfusion threshold during admission jik-efwdjyr-npggpkpme type 2 diabetes continue medications HFpEF no acute exacerbation, clinically euvolemic, elevated BNP due to esrd. Elevated trops initial 27, repeat 29, likely related to demand secondary to hypoxia hypothyroidism continue levothyroxine RLS continue gabapentin Severe obesity with BMI greater than 38. Discussed importance of weight management as this may be contributing to worsening of other comorbidities Time Spent with Patient Time attestation: Total time managing care of this patient today ____ minutes. Discharge coordination time: Greater than 30 minutes Quality: Safe Use of Opioids Does Pt have an Active Cancer Diagnosis on the Problem List?: No Quality: Stroke Does the patient have a stroke diagnosis?: No Physical Exam Vital Signs: Vital Signs: Last Vital Signs Temp 97.8 F 05/11/23 11:33 Pulse 82 05/11/23 11:33 Resp 19 05/11/23 11:33 BP 123/62 05/11/23 11:33 Pulse Ox 98 05/11/23 11:33 O2 Del Method Nasal Cannula 05/11/23 11:33 O2 Flow Rate 4 05/11/23 11:33 FiO2 98 05/08/23 23:31 BMI result Body Mass Index 38.5 Appearing in no acute distress head is normocephalic atraumatic eyes pupils are PERRLA sclera is anicteric mouth throat mucous membranes are intact and moist neck is supple no lymphadenopathy, no JVD noted lung sounds are clear to auscultation heart regular rate rhythm, clear S1, S2 positive bowel sounds, abdomen is soft, nontender neuro patient is alert x3, no focal deficits DS: Data Data Completed and Pending Completed studies during hospitalization [Text1]: Procedures Assistance with Respiratory Ventilation, Less than 24 Consecutive Hours, Continuous Positive Airway Pressure (12/28/22) Performance of Urinary Filtration, Intermittent, Less than 6 Hours Per Day (02/10/23) Labs on day of discharge: Laboratory Results - last 24 hr 05/10/23 05/10/23 05/10/23 15:10 16:03 19:58 Hold Purple Top Potassium 6.3 H* 5.7 H Plasma Potassium 6.2 H* Creatinine Estim Creat Clear Calc Estimated GFR POC Glucose 186 H 05/10/23 05/11/23 05/11/23 20:46 07:08 07:20 Hold Purple Top SEE NOTE Potassium 5.3 H Plasma Potassium Creatinine 6.31 H* Estim Creat Clear Calc 7.1 Estimated GFR 6 POC Glucose 111 05/11/23 05/11/23 07:22 11:29 Hold Purple Top Potassium Plasma Potassium Creatinine Estim Creat Clear Calc Estimated GFR POC Glucose 99 134 H Preliminary micro results at discharge 05/07/23 11:14 Blood Culture - Preliminary Blood - Venous No growth after 48 hours. 05/07/23 11:14 Blood Culture - Preliminary Blood - Venous No growth after 48 hours. Discharge Plan Discharge Anticipated Discharge Date/Time: 05/11/23 14:20 Patient Disposition: Home Health Service Discharge Diagnosis: Acute on chronic respiratory failure with hypoxemia Community acquired pneumonia Rhino virus Staph coccus aureus bacteremia Referrals: Christina Paiz MD [Primary Care Provider] - 1 Week Discharge Medications: New vancomycin in 0.9 % sodium chl 500 mg/100 mL piggyback 500 mg IV MOWEFR Rx Instructions: During dialysis prednisone 10 mg tablet 40 mg PO DIRECTED Qty: 5 0RF Rx Instructions: see taper instructions Continued (DME) wheelchair with footrests See Rx Instructions .Route .MEDSUPPLY Qty: 1 0RF Rx Instructions: As directed ([facility]) blood pressure test kit-medium Kit See Rx Instructions .Route Qty: 1 0RF Rx Instructions: As directed (DME) bedside commode Kit See Rx Instructions .Route Qty: 1 0RF Rx Instructions: As directed (DME) grab bar for bathroom See Rx Instructions .Route .MEDSUPPLY Qty: 2 0RF Rx Instructions: As directed citalopram 20 mg tablet 20 mg PO DAILY Qty: 300 3RF levothyroxine 100 mcg tablet 100 mcg PO DAILY@0600 famotidine 20 mg tablet 20 mg PO DAILY albuterol sulfate 90 mcg/actuation HFA aerosol inhaler 2 puff inhalation Q4H PRN (Reason: Shortness Of Breath Or Wheezing) aspirin 81 mg Tablet,Delayed Release (Dr/Ec) 81 mg PO DAILY Qty: 90 0RF metoprolol tartrate 25 mg tablet 12.5 mg PO BID Qty: 180 0RF atorvastatin 20 mg tablet 20 mg PO BEDTIME Trelegy Ellipta 100-62.5-25 mcg blister with device 1 ea inhalation DAILY furosemide 40 mg Tablet 40 mg PO BID@0900,1800 Qty: 60 0RF Protocol: Hold for SBP< HOLD for SBP < : 90 gabapentin 100 mg capsule 100 mg PO TID ranolazine 500 mg tablet extended release 12 hr 500 mg PO BID 90 Days Qty: 180 3RF nitroglycerin 0.4 mg tablet, sublingual 0.4 mg sublingual Q5M PRN (Reason: chest pain) Qty: 30 5RF Rx Instructions: do not exceed 3 doses per episode Discontinued prednisone 20 mg tablet 40 mg PO DAILY Qty: 10 0RF Discharge Orders: Discharge Order (Routine); Ordered 05/11/23 Ordered By: Ary Moreno Diet: Advance to usual diet Activity on Discharge: As tolerated Stand Alone Forms: Patient Portal Discharge page Care Plan Goals: vancomycin end date Thursday06/08/2023, total 4 weeks Health Concerns: Acute on chronic respiratory failure with hypoxemia Community acquired pneumonia Rhino virus Staph coccus aureus bacteremia Plan of Treatment: Follow-up with primary care provider as needed Take all medications as prescribed You will be on vancomycin IV for 4 weeks and this will be administrated during your dialysis sessions Assessment: see discharge summary
--- NOTE | 2023-05-11 15:31 | MHC.CM.PN ---
Pt medically cleared for D/C home with new [facility] and outpt dialysis 3x/wk. Transport via [facility] at 3pm.
--- NOTE | 2023-05-11 15:32 | P.F2F_ITS ---
Service Date Service Date: 05/11/23 Encounter Date of encounter: 05/11/23 Reasons for Services Signs and symptoms assessed: Acute hypoxic respiratory failure secondary to pneumonia and rhino virus Reason for penitentiary: CV/CP assess and/or care Reason for physical therapy: home safety and mobility Homebound: Leaving the home is medically contraindicated at this time without the asist of a device and/or another person due th the listed conditions above and below. Reason homebound: unsteady gait / fall risk Certification: Based on the above findings, I certify that this patient is confined to the home and needs intermittent penitentiary care, physical therapy and/or speech therapy, or continues to need occupational therapy. The patient is under my care, and I have initiated the establishment of the plan of care. The patient will be followed by a physician who will periodically review the plan of care. Time Spent With Patient Time: Total time managing care of this patient today ____ minutes.
== END 2023-05-11 16:42 | disposition home health service (06) | DRG 193 ==
LOC: HO.ED 17:37 → HO.EDOVER 19:16 → HO.IMC 22:59
PROVIDERS: Emergency Medicine; Hospitalist; Internal Medicine Nephrology; Physician Assistant Medical; Student in an Organized Health Care Education/Training Program; Admitting Provider Physician Assistant; Emergency Provider Emergency Medicine; PCP Internal Medicine; Visit Provider Nurse Practitioner Acute Care
DX: J15.9 Unspecified bacterial pneumonia (principal); J96.21 Acute and chronic respiratory failure with hypoxia; N18.6 End stage renal disease; J44.1 Chronic obstructive pulmonary disease with (acute) exacerbation; J44.0 Chronic obstructive pulmonary disease with (acute) lower respiratory infection; I50.32 Chronic diastolic (congestive) heart failure; R78.81 Bacteremia; Z99.81 Dependence on supplemental oxygen; E11.22 Type 2 diabetes mellitus with diabetic chronic kidney disease; E03.9 Hypothyroidism, unspecified; G25.81 Restless legs syndrome; Z99.2 Dependence on renal dialysis; B95.61 Methicillin susceptible Staphylococcus aureus infection as the cause of diseases classified elsewhere; B34.1 Enterovirus infection, unspecified; B34.8 Other viral infections of unspecified site; D53.9 Nutritional anemia, unspecified; Z91.158 Patient's noncompliance with renal dialysis for other reason; E66.01 Morbid (severe) obesity due to excess calories; Z68.38 Body mass index [BMI] 38.0-38.9, adult; Z87.891 Personal history of nicotine dependence; Z79.82 Long term (current) use of aspirin; Z79.890 Hormone replacement therapy; Z79.899 Other long term (current) drug therapy
CPT/HCPCS: 0241U; 36415; 71045; 71250; 80048; 80202; 82565; 82607; 82746; 82803; 82947; 83605; 83735; 83880; 84132; 84145; 84484; 85025; 85027; 87040; 87077; 87186; 87205; 87633; 90999; 93005; 93308; 94640; 94660; 97162; 99285; J0456; J0613; J0692; J0696; J1643; J1940; J2920; J2930; J3370

== ENCOUNTER 2023-05-04 19:07 | Outpatient (BNV) | payer OTHER, SELFPAY | END 2023-05-07 07:00 | PROVIDERS: Admitting Provider Physician Assistant; Emergency Provider Emergency Medicine; PCP Internal Medicine; Visit Provider Internal Medicine Cardiovascular Disease | DX: I34.81 Nonrheumatic mitral (valve) annulus calcification (principal); I35.8 Other nonrheumatic aortic valve disorders | CPT/HCPCS: 93308 ==

== ENCOUNTER → 2023-05-04 19:07 | Outpatient (BNV) | payer MEDICARE, SELFPAY | PROVIDERS: Admitting Provider Physician Assistant; Emergency Provider Emergency Medicine; Visit Provider Physician Assistant | DX: J96.21 Acute and chronic respiratory failure with hypoxia (principal); I50.33 Acute on chronic diastolic (congestive) heart failure; N18.6 End stage renal disease; Z99.2 Dependence on renal dialysis; R78.81 Bacteremia; J18.9 Pneumonia, unspecified organism | CPT/HCPCS: 99223; 99232; 99233; 99239; G0180 ==

== ENCOUNTER → 2023-05-04 19:07 | Outpatient (BNV) | payer OTHER, SELFPAY | PROVIDERS: Admitting Provider Physician Assistant; Emergency Provider Emergency Medicine; PCP Internal Medicine; Visit Provider Internal Medicine | DX: R78.81 Bacteremia (principal); J96.21 Acute and chronic respiratory failure with hypoxia; N18.6 End stage renal disease; Z99.2 Dependence on renal dialysis; R09.02 Hypoxemia | CPT/HCPCS: 99222 ==

== ENCOUNTER 2023-05-13 18:40 | Inpatient (IN) | payer OTHER, SELFPAY ==
--- NOTE | ~2023-05-13 | CT_ITS ---
EXAMINATION: CT HEAD WITHOUT CONTRAST CLINICAL INFORMATION: Weakness slurred speech COMPARISON: CT head from 03/06/2023 TECHNIQUE: Contiguous axial imaging was performed from the skull base to vertex without intravenous administration of contrast. This CT examination was performed using dose optimization techniques as appropriate, variously including the following: *Automated exposure control *Adjustment of mA and/or kV according to patient size (this includes techniques or standardized protocols for targeted exams where dose is matched to indication/reason for exam; i.e. extremities or head) *Use of iterative reconstruction technique DLP: 1243 mGy-cm FINDINGS: There is no evidence of acute intracranial hemorrhage or territorial infarction. Chronic white matter small vessel ischemic changes. No abnormal mass effect or midline shift is seen. Cruz to white matter differentiation is well preserved. No extra-axial fluid collections are identified. The ventricles are normal in size. There is no abnormal attenuation within the brain parenchyma. The osseous structures and soft tissues are normal. The mastoid air cells and visualized portions of the paranasal sinuses are well aerated. CT/CT head/brain wo IV con IMPRESSION: 1. No acute intracranial pathology. 2. Chronic white matter small vessel ischemic changes.
--- NOTE | ~2023-05-13 | XR_ITS ---
EXAMINATION: XR CHEST CLINICAL INFORMATION: Weakness COMPARISON: Previous dated 05/04/2023 TECHNIQUE: Frontal view of the chest was obtained. FINDINGS: Improved left lung volume. Persistent right midlung opacities. Some increased aeration may demonstrate improvement. Persistent scattered opacities on the left showing no significant change. The cardiac silhouette is within normal limits. There is no effusion. XR/XR chest 1V IMPRESSION: Better expansion lung volumes. Persistent bilateral opacities which show some mild clearing
--- NOTE | ~2023-05-13 | FL_ITS ---
EXAMINATION: Modified Barium Swallow CLINICAL INFORMATION: Dysphagia. COMPARISON: None. TECHNIQUE: Modified barium swallow was performed under lateral fluoroscopy with patient in standing position. Different consistencies of barium was administered as well as barium mixed with certain solid foods by the speech pathologist, Jermaine Guzman. FINDINGS: Following oral administration of thin consistency barium, there is laryngeal penetration with immediate clearing. No subglottic aspiration. FLUOROSCOPY TIME: 1 minute 30 seconds Number of Spot Images: 1 DOSE AREA PRODUCT: 117 uGy-m2 (microgray-meter squared) FL/FL barium swallow modified IMPRESSION: Laryngeal penetration with thin barium. No subglottic aspiration. Refer to the speech therapy report for full description of findings. This procedure was performed by German Kohli PA-C, and supervised by Dr. Puckett
--- NOTE | ~2023-05-13 | FL_ITS ---
EXAMINATION: FL BARIUM SWALLOW CLINICAL INFORMATION: Dysphasia COMPARISON: None TECHNIQUE: Due to patient's lack of mobility, only upright images with thin barium could be obtained. The patient could also not position well in the obliques due to condition. Despite this, study was attempted as best as could be obtained. Numerous spot images were obtained. FINDINGS: A spinal stimulator is present at the T10-T11 level. Single contrast images of the esophagus demonstrate a small posterior pharyngeal pouch is likely contributing to the patient's regurgitation. No evidence of stricture, mass, or ulcerations identified. Nonpropulsive tertiary contractions are noted throughout the entire esophagus, consistent with esophageal dysmotility A small hiatal hernia is identified. The presence of gastroesophageal reflux could not be evaluated due to patient positioning, and the persistent to and fro movement of the barium column. FLUOROSCOPY TIME: 1 minute 55 seconds Number of Spot Images: 5 DOSE AREA PRODUCT: 477 uGy-m2 (microgray-meter squared) FL/FL barium swallow IMPRESSION: 1. Limited exam due to patient mobility. 2. A small posterior pharyngeal pouch is present which is likely contributing to the patient's regurgitation. 3. Severe esophageal dysmotility. 4. Small sliding hiatal hernia. 5. Status post spinal stimulator at the T10/T11 level This procedure was performed by German Kohli PA-C, and supervised by Dr. Puckett
[2023-05-13 18:45] VITALS: BP 170/125; PULSE 87; O2SAT 100
[2023-05-13 18:51] VITALS: BMI 38.8
[2023-05-13 19:12] VITALS: BP 117/42; PULSE 74; RESP 15; TEMP 36.7; O2SAT 100
--- NOTE | 2023-05-13 19:19 | ECG_ITS ---
Test Reason : pain Blood Pressure : / mmHG Vent. Rate : 074 BPM Atrial Rate : 074 BPM P-R Int : 222 ms QRS Dur : 080 ms QT Int : 400 ms P-R-T Axes : 037 026 018 degrees QTc Int : 444 ms Sinus rhythm with 1st degree A-V block Otherwise normal ECG When compared with ECG of 10-MAY-2023 14:03, No significant change was found Referred By: German Ashraf Electronically Signed By:OSMANI DALE MD
[2023-05-13 19:49] LABS: MANUAL DIFF FLAG NO
[2023-05-13 19:50] LABS: Basophils Percent Auto 0.1 % (0-2); Eosinophils Absolute Auto 0.6 X10*3/uL (0.0-0.4); Eosinophils Percent Auto 3.3 % (0-4); Hematocrit 31.5 % (37.0-47.0); Hemoglobin 10.2 g/dl (12.0-16.0); Imm Gran Abs Auto 0.14 X10*3/uL (0.00-0.03); Imm Gran Pct Auto 0.8 % (0.0-0.4); Lymphocytes Absolute Auto 1.7 X10*3/uL (1.2-4.9); Lymphocytes Percent Auto 9.7 % (20-40); Mean Corpuscular HGB Conc 32.4 g/dl (31.0-35.0); Mean Corpuscular Hemoglobin 32.4 pg (27.0-33.0); Mean Platelet Volume 10.6 fL (9.4-12.3); Monocytes Absolute Auto 0.7 X10*3/uL (0.1-1.2); Monocytes Percent Auto 3.9 % (2-11); Neutrophils Absolute Auto 14.1 x10*3/uL (2.0-8.3); Neutrophils Percent Auto 82.2 % (45-73); Platelet Count 231 X10*3/uL (160-400); Red Blood Count 3.15 X10*6/uL (4.20-5.50); Red Cell Distribution Width 14.6 % (11.0-16.0); White Blood Count 17.1 X10*3/uL (4.8-10.8)
--- NOTE | 2023-05-13 19:52 | PHA.MEDREC ---
Pharmacy Consult ? Medication Reconciliation Pharmacy has completed the medication reconciliation. [place] [facility] Utilized discharge summary to complete med rec. Tiffanie Lehman, AleD
[2023-05-13 19:58] LABS: INTERNATIONAL NORM RATIO 0.9 (0.9-1.1); Prothrombin Time 11.3 SEC (11.1-13.3)
[2023-05-13 20:01] LABS: Lactic Acid 0.8 mmol/L (0.5-2.0)
[2023-05-13 20:02] LABS: Partial Thromboplastin Time 22.1 SEC (26.0-36.4)
--- NOTE | 2023-05-13 20:08 | ED_ITS ---
HPI - General Adult General Chief complaint: Altered Mental Status Stated complaint: PT.SEEN FOR PNEUMONIA, SEPSIS ALERT PER EMS Time Seen by Provider: 05/13/23 18:55 Source: patient, RN notes reviewed and old records reviewed Mode of arrival: EMS Limitations: no limitations History of Present Illness HPI narrative: Patient arrives via EMS complaining of ?shaking uncontrollably. Patient reports that she has a history of what she describes as tremors She states that since 08:30 this morning her symptoms have been significantly worse She reports that her tremors are so bad that she is unable to walk due to them and she has fallen twice She denies hitting her head or losing consciousness Patient reports that she was unable to get dialysis today because she fell when she was trying to get to the car She was discharged from this facility 2 days ago for Staph aureus bacteremia and is due to receive vancomycin at her dialysis center She therefore has not received her antibiotics today. Patient reports that her speech has been ?slurred. ? This has also happened in the past but is worse today and also started when she woke up at 8:30 a.m. this morning I discussed with the patient's daughter via telephone She has no other complaints or concerns but states that the patient has been shaking uncontrollably and has some minor difficulty with speech. The patient has not been complaining of a headache Related Data Home Medications Medication Instructions Recorded Confirmed albuterol sulfate 90 mcg/actuation 2 puff inhalation Q4H PRN 12/28/22 05/13/23 aerosol inhaler Shortness Of Breath Or Wheezing famotidine 20 mg tablet 20 mg PO DAILY 12/28/22 05/13/23 levothyroxine 100 mcg tablet 100 mcg PO DAILY@0600 12/28/22 05/13/23 atorvastatin 20 mg tablet 20 mg PO BEDTIME 01/24/23 05/13/23 fluticasone fur. 100 mcg-umeclid 1 ea inhalation DAILY 02/10/23 05/13/23 62.5 mcg-vilant 25 mcg inhalat.powder (Trelegy Ellipta) gabapentin 100 mg capsule 100 mg PO TID 05/04/23 05/13/23 Previous Rx's Medication Instructions Recorded aspirin 81 mg tablet,delayed 81 mg PO DAILY #90 tabs 12/31/22 release metoprolol tartrate 25 mg tablet 12.5 mg (1/2 x 25 mg) PO BID #180 12/31/22 tabs nitroglycerin 0.4 mg sublingual 0.4 mg sublingual Q5M PRN chest 01/14/23 tablet pain #30 tabs ranolazine 500 mg tablet,extended 500 mg PO BID 90 days #180 tabs 01/14/23 release,12 hr furosemide 40 mg tablet 40 mg PO BID@0900,1800 #60 tabs 02/17/23 wheelchair with footrests #1 ea 03/25/23 blood pressure test kit-medium #1 ea 03/27/23 commode (bedside commode) #1 ea 03/27/23 grab bar for bathroom #2 ea 03/27/23 citalopram 20 mg tablet 20 mg PO DAILY #300 tabs 04/20/23 prednisone 10 mg tablet 40 mg (4 x 10 mg) PO DIRECTED 05/11/23 #5 tabs vancomycin 500 mg/100 mL in 0.9% 500 mg (100 mL) IV MOWEFR 05/11/23 sodium chloride intravenous piggyback Allergies Allergy/AdvReac Type Severity Reaction Status Date / Time NSAIDS (Non-Steroidal Allergy Unknown Verified 05/13/23 18:45 Anti-Inflamma Anfcsds-RIW-SrE Reductase AdvReac Severe LEG PAIN Verified 05/13/23 18:45 Inhibitor Review of Systems 2 Constitutional: Constitutional: Denies headache(s) and Reports weakness Eyes: Eyes: Denies blurry vision ENT: Denies headache(s) Cardiovascular: Cardiovascular: Denies chest pain and Denies dyspnea Respiratory: Respiratory: Reports cough (Patient describes a chronic cough) and Denies dyspnea Gastrointestinal: Gastrointestinal: Denies abdominal pain, Denies nausea and Denies vomiting Musculoskeletal: Musculoskeletal: Denies back pain Integumentary/Breasts: Skin/Breast: Denies rash Neurologic: Reports Abnormal speech present, Denies headache(s), Reports tremor(s) and Reports weakness PMFSH Past Medical History Medical History (HFpEF) heart failure with preserved ejection fraction ESRD needing dialysis NSTEMI (non-ST elevated myocardial infarction) Cough Respiratory failure with hypoxia Interstitial lung disease Depression, major, recurrent Dyslipidemia Osteoarthritis of multiple joints Acquired hypothyroidism Heart murmur Fibromyalgia Diabetes Surgical History Hx of tonsillectomy S/P appendectomy Hx of fusion of cervical spine S/P anal fissurectomy H/O hemorrhoidectomy S/P partial hysterectomy Family History Family History Brother Substance use disorder Son Substance use disorder Daughter Substance use disorder Social History Social History Household Members: Family Housing: Apartment Do you presently have visiting nurse or other home services: No (states she's working on it.) Alcohol intake: current Alcohol intake frequency: holidays/special occasions only Patient Tobacco Use Status: Former Tobacco user Quit Date: 15 years ago Tobacco use type: Cigarette Years Smoked: 20 +/- on and off Smoked in Last 30 Days: No e-Cigarette/Vaping Use: Never Used Second Hand Smoke Exposure: No Use of substances other than those prescribed or required for medical reasons: No Advance Directives: Yes Advance Directives on File: Yes Advance Directives Date on File: 02/01/23 service: No Current occupational status: retired Current occupation: right handed Cognitive needs: No Hearing needs: No Vision needs: Yes Physical Exam ED Vital Signs: Vital Signs - 24 hr 05/13/23 19:12 05/13/23 22:35 Temperature 98.0 F 98.2 F Pulse Rate 74 78 Respiratory Rate 15 15 Blood Pressure 117/42 L 131/48 L Pulse Oximetry 100 100 Oxygen Delivery Method Nasal Cannula Nasal Cannula Oxygen Flow Rate 4 4 BMI result Body Mass Index 38.8 Const General: comfortable, no acute distress, alert and awake Nutritional Appearance: well nourished [facility] Head: Yes normocephalic and Yes atraumatic Eyes Eyelids: Yes eyelids normal Conjunctivae: conjunctivae normal Sclerae: sclerae normal Corneas: corneas normal Pupils: Equal, round and reactive pupils present EOM: EOMs intact bilaterally Neck Neck: Yes full ROM Resp Effort & Inspection: normal respiratory effort, able to speak in complete sentences and not labored GI Inspection: No distended Palpation (GI): Soft to palpation, not firm, nontender, no guarding and not rigid Skin General skin exam: elasticity normal Neuro Other: Psychiatric Clinical Nurse Specialist strength bilaterally is 4-5 Strength to bilateral upper extremities is 4-5 to major muscle groups. Strength to lower extremities bilaterally is 2/5 with flexion Cranial nerves: Yes CN's II-XII intact bilaterally, Yes Equal, round and reactive pupils present and Yes Bilaterally intact EOM present Cognition (Neuro): normal cognition Speech: Abnormal speech present slurred (Patient's speech is mostly clear but occasionally will have slurred words); Negative for stuttering or complete aphasia Motor exam (neuro): strength not 5/5 throughout Extrem Other: Moving all extremities well without any obvious deformities Course Reevaluation(s) Reevaluation #1: While inserting the patient has peripheral IV using ultrasound guidance, I would did not notice any slurred speech while I was talking to the patient. Time: 20:53 Reevaluation #2: Patient remains awake, alert oriented with no neuro deficits. Discussed with the hospitalist, Dr. Torres who will admit the patient for hyperkalemia for dialysis and vancomycin dosing tomorrow. Time: 23:34 Medications Administered Generic Name Dose Route Start Last Admin Trade Name Freq PRN Reason Stop Dose Admin Heparin Sodium (Porcine) 5,000 unit 05/13/23 23:45 05/14/23 00:25 Heparin Sodium,Porcine 5,000 Unit/Ml Vial SUBCUT 5,000 unit Q8H INGRID Administration Sodium Chloride 3 ml 05/14/23 00:00 05/14/23 00:30 0.9 % Sodium Chloride Flush 3 Ml Syringe IVFLUSH 3 ml QSHIFT INGRID Administration Discontinued Medications Generic Name Dose Route Start Last Admin Trade Name Freq PRN Reason Stop Dose Admin Morphine Sulfate 4 mg 05/14/23 01:22 05/14/23 01:27 Morphine Sulfate 4 Mg/Ml Cartridge IM 05/14/23 01:23 4 mg ONCE ONE Administration Protocol Sodium Zirconium Cyclosilicate 10 gm 05/13/23 21:15 05/13/23 21:50 Sodium Zirconium Cyclosilicate 10 Gm Powd.Pack PO 05/13/23 21:16 10 gm ONCE ONE Administration Procedures Procedure Narrative Procedure Narrative: I inserted a 20 gauge 1.75 in peripheral IV in the left upper arm with verbal consent. Medical Decision Making Medical Decision Making MDM Narrative: 82-year-old male presents for evaluation of difficulty with speech as well as uncontrollable tremors. She is known to be bacteremic from a recent admission to this facility as well as pneumonia. She is not complaining of shortness of breath. Plan for wide workup including labs, blood cultures, lactic, chest x- ray, CT brain. Patient's last known well time was just after midnight last night when she went to bed. When she woke up this morning she had some difficulty with speech and generalized weakness. On exam she has symmetrical weakness to the bilateral lower extremities. There is no focal weakness. She does occasionally have slurred speech but this seemed to have improved throughout her stay in the already. Have a low suspicion for CVA, but the patient is already underwent a for tPA regardless. Will get a CT scan of the brain. Discussed with my attending, Dr. Lozada and ultimately decided against CT angiography of the head and neck because we do not feel this was a large vessel occlusion. The patient's symptoms also appear to be chronic just exacerbated as of this morning. Differential Diagnosis Differential Diagnoses: The differential diagnosis associated with the presentation includes Weakness Sepsis Rigors Tremors CVA less likely intracranial hemorrhage Electrolyte abnormality Consult Healthcare Provider Management of the patient was discussed with: Income Tax Investigator (Discussed with Renal, Dr. Dumas. He recommends holding vancomycin at this time as the patient is not septic. She should be dosed immediately after dialysis tomorrow. He did request a vancomycin level which was ordered, and he agrees with admission) Lab Data MDM Lab Attestation statement: I reviewed the patient's lab results. Leukocytosis to 17.1 K. with a left shift. She has a mild macrocytic anemia that is consistent with a recent baseline. Patient's potassium is elevated to 5.9. Her CO2 is low at 17 she has an anion gap of 23 with a BUN of 97 and a creatinine of 5.89 but she is a known dialysis patient. Troponin is slightly elevated to 17.2 she is not complaining of chest pain. 05/13/23 19:45 05/13/23 19:45 Labs: Lab Results 05/13/23 05/13/23 05/13/23 Range/Units 19:44 19:45 22:24 WBC 17.1 H (4.8-10.8) X10*3/uL RBC 3.15 L (4.20-5.50) X10*6/uL Hgb 10.2 L (12.0-16.0) g/dl Hct 31.5 L (37.0-47.0) % MCV 100.0 H (80.0-98.0) fL MCH 32.4 (27.0-33.0) pg MCHC 32.4 (31.0-35.0) g/dl RDW 14.6 (11.0-16.0) % Plt Count 231 (160-400) X10*3/uL MPV 10.6 (9.4-12.3) fL Immature Gran % (Auto) 0.8 H (0.0-0.4) % Neut % (Auto) 82.2 H (45-73) % Lymph % (Auto) 9.7 L (20-40) % [place] % (Auto) 3.9 (2-11) % Eos % (Auto) 3.3 (0-4) % Baso % (Auto) 0.1 (0-2) % Lymph # (Auto) 1.7 (1.2-4.9) X10*3/uL [place] # (Auto) 0.7 (0.1-1.2) X10*3/uL Eos # (Auto) 0.6 H (0.0-0.4) X10*3/uL Baso # (Auto) 0.0 (0.0-0.2) X10*3/uL Abs Immat Gran (auto) 0.14 H (0.00-0.03) X10*3/uL Absolute Neuts (auto) 14.1 H (2.0-8.3) x10*3/uL Absolute Nucleated RBC 0.000 (0.0-0.012) X10*3/uL Nucleated RBC % (auto) 0.0 (0.0-0.2) /100WBC PT 11.3 D (11.1-13.3) SEC INR 0.9 (0.9-1.1) APTT 22.1 L (26.0-36.4) SEC Sodium 137 (135-145) mmol/L Potassium 5.9 H (3.3-5.1) mmol/L Chloride 103 (96-108) mmol/L Carbon Dioxide 17 L (22-29) mmol/L Anion Gap 23 H (12-20) BUN 97 H (9-16) mg/dL Creatinine 5.89 H* (0.5-1.4) mg/dL Estim Creat Clear Calc 7.7 Estimated GFR 7 Random Glucose 82 (60-115) mg/dL Lactic Acid 0.8 (0.5-2.0) mmol/L Calcium 7.0 L D (8.4-10.2) mg/dL Total Bilirubin 0.5 (0.0-1.0) mg/dL AST 24 (5-31) U/L ALT 13 (0-31) U/L Alkaline Phosphatase 68 (39-117) U/L Troponin I High Sens 17.2 H D (<3.5-17.0) ng/L Total Protein 6.3 L (6.5-8.0) g/dL Albumin 3.1 L (3.5-5.0) g/dL Lipase 4 L (8-78) U/L TSH 1.18 (0.32-4.0) uIU/mL Urine Color Yellow Urine Appearance Cloudy Urine pH 5.5 (5.0-9.0) Ur Specific [place] 1.015 (1.005-1.025) Urine Protein Negative (Neg-Trace) mg/dL Urine Glucose (UA) Negative (Negative) mg/dL Urine Ketones Negative (Negative) mg/dL Urine Blood Negative (Negative) Urine Nitrite Negative (Negative) Ur Leukocyte Esterase Trace H (Negative) Urine RBC 0-2 (0-2) /HPF Urine WBC 0-5 (0-5) /HPF Ur Squamous Epith Cells 0-2 (0-2) /HPF Urine Bacteria 1+ (None Seen) Hyaline Casts 0-2 (0-2) /LPF Urine Yeast Present Random Vancomycin 7.6 L (15-20) mcg/mL Influenza Type A (PCR) NEGATIVE (Negative) Influenza Type B (PCR) NEGATIVE (Negative) RSV RNA Qual (PCR) NEGATIVE (Negative) SARS-CoV-2 RNA (RT-PCR) NEGATIVE (Negative) Independent Interpretation I performed an independent interpretation of an: Plain X-Ray (Slightly improved infiltrates with compared to chest x-ray from 05/04/2023) Radiology Impression Discussion of test interpretation with radiology: I have reviewed the radiologist's reading. Radiologist Impression: Better expansion lung volumes. Persistent bilateral opacities which show some mild clearing Discharge Plan Discharge Clinical Impression: Acute hyperkalemia Patient Disposition: Admitted As Inpatient
[2023-05-13 20:09] LABS: Alanine Aminotransferase 13 U/L (0-31); Albumin Level 3.1 g/dL (3.5-5.0); Alkaline Phosphatase 68 U/L (39-117); Anion Gap 23 (12-20); Aspartate Amino Transferase 24 U/L (5-31); Bilirubin Total 0.5 mg/dL (0.0-1.0); Blood Urea Nitrogen 97 mg/dL (9-16); Carbon Dioxide 17 mmol/L (22-29); Chloride 103 mmol/L (96-108); Creatinine Clr Calc Pharmacy 7.7; Estimated Glomerular Filt Rate 7; Glucose Random 82 mg/dL (60-115); Lipase 4 U/L (8-78); Potassium 5.9 mmol/L (3.3-5.1); Sodium 137 mmol/L (135-145); Total Protein 6.3 g/dL (6.5-8.0)
[2023-05-13 20:13] LABS: Troponin-I High Sensitivity 17.2 ng/L (<3.5-17.0)
[2023-05-13 20:27] LABS: TSH reflex Free T4 1.18 uIU/mL (0.32-4.0)
--- NOTE | 2023-05-13 20:35 | PC.NURSE ---
blood work collected, IV access not obtained after 3 tries by 2 RNs. can only use L arm, arm very sore from previous admission. Jose JOHNSON at bedside for U/S IV to L AC
[2023-05-13 20:55] LABS: Influenza A PCR NEGATIVE (Negative); Influenza B PCR NEGATIVE (Negative); Resp Syncy Virus RNA Qual PCR NEGATIVE (Negative); SARS COV2 PCR INHOUSE NEGATIVE (Negative)
[2023-05-13] MEDS: Sodium Zirconium Cyclosilicate 10 GM POWD.PACK PO (21:50)
[2023-05-13 22:32] LABS: Appearance Urine Cloudy; Color Urine Yellow; Glucose Urine UA Negative (Negative); Leukocyte Esterase Urine Trace (Negative); Nitrite Urine Negative (Negative); PH 5.5 (5.0-9.0); Specific Gravity - Urine 1.015 (1.005-1.025); UMIC TRIGGER UACC YES; Urine Blood Negative (Negative); Urine Ketones Negative (Negative); Urine Protein Negative (Neg-Trace)
[2023-05-13 22:35] VITALS: BP 131/48; PULSE 78; RESP 15; TEMP 36.8; O2SAT 100
[2023-05-13 22:41] LABS: Vancomycin Random 7.6 mcg/mL (15-20)
[2023-05-13 22:52] LABS: Bacteria Urine 1+ (None Seen); Hyaline Casts Urine 0-2 /LPF (0-2); RBC Urine 0-2 /HPF (0-2); Squamous Epithelial Cell Urine 0-2 /HPF (0-2); WBC Urine 0-5 /HPF (0-5)
--- NOTE | 2023-05-13 23:58 | P.HPHOSP_ITS ---
History of Present Illness Date of Service: 05/13/23 Chief Complaint: ams 82F PMH NSTEMI, diastolic heart failure, chronic respiratory failure with hypoxia and hypercapnia on 4 L supplemental O2 at baseline, ESRD on dialysis MWF, COPD, staph bacteremia, interstitial lung disease, [id number] type 2 diabetes, hyperlipidemia, hypothyroidism, restless leg syndrome who is severely obese presented with fall, ams. patient missed HD on day of presentation as she was feeling weak, confused, with worsening tremor and slurred speech, she was brought to ED, found to have hyeprkalemia of 5.9. elevated wbc 17. patient was discharged from [facility] [place] [place] 05/11/23 after hospitalization for MSSA bacteremia. Review of Systems 2 Review of Systems: Yes all other systems are reviewed and are negative [facility] Medical History (HFpEF) heart failure with preserved ejection fraction ESRD needing dialysis NSTEMI (non-ST elevated myocardial infarction) Cough Respiratory failure with hypoxia Interstitial lung disease Depression, major, recurrent Dyslipidemia Osteoarthritis of multiple joints Acquired hypothyroidism Heart murmur Fibromyalgia Diabetes Family History Brother Substance use disorder Son Substance use disorder Daughter Substance use disorder Surgical History Hx of tonsillectomy S/P appendectomy Hx of fusion of cervical spine S/P anal fissurectomy H/O hemorrhoidectomy S/P partial hysterectomy Social History Household Members: Family Housing: Apartment Do you presently have visiting nurse or other home services: No (states she's working on it.) Alcohol intake: current Alcohol intake frequency: holidays/special occasions only Patient Tobacco Use Status: Former Tobacco user Quit Date: 15 years ago Tobacco use type: Cigarette Years Smoked: 20 +/- on and off Smoked in Last 30 Days: No e-Cigarette/Vaping Use: Never Used Second Hand Smoke Exposure: No Use of substances other than those prescribed or required for medical reasons: No Advance Directives: Yes Advance Directives on File: Yes Advance Directives Date on File: 02/01/23 service: No Current occupational status: retired Current occupation: right handed Cognitive needs: No Hearing needs: No Vision needs: Yes Meds Allergies Allergy/AdvReac Type Severity Reaction Status Date / Time NSAIDS (Non-Steroidal Allergy Unknown Verified 05/13/23 18:45 Anti-Inflamma Elddtsm-TAL-WvM Reductase AdvReac Severe LEG PAIN Verified 05/13/23 18:45 Inhibitor Active Medications: Current Medications Albuterol Sulfate (Albuterol Sulfate 90 Mcg 8 Gm Inhaler) 2 puff INHALE Q4H PRN PRN Reason: Shortness Of Breath Or Wheezing Aspirin (Aspirin Enteric Coated 81 Mg Tablet.Dr) 81 mg PO DAILY [facility] Atorvastatin Calcium (Atorvastatin Calcium 20 Mg Tablet) 20 mg PO BEDTIME [facility] Famotidine (Famotidine 20 Mg Tablet) 20 mg PO DAILY [facility] Fluticasone/Umeclidinium/Vilanterol (Fluticasone/Umeclidinium/Vilanterol 100/62.5/25 Blst.W.Dev) puff INHALE DAILY [facility] Furosemide (Furosemide 40 Mg Tablet) 40 mg PO BID@0900,1800 [facility]; Protocol Gabapentin (Gabapentin 100 Mg Capsule) 100 mg PO TID [facility] Levothyroxine Sodium (Levothyroxine Sodium 100 Mcg Tablet) 100 mcg PO DAILY@0600 [facility] Metoprolol Tartrate (Metoprolol Tartrate 12.5 Mg Halftab) 12.5 mg PO BID [facility]; Protocol Nitroglycerin (Nitroglycerin 0.4 Mg Tab.Subl) 0.4 mg SUBLINGUAL Q5M PRN PRN Reason: chest pain Non-Formulary Medication (Citalopram) 20 mg PO DAILY [facility] Prednisone (Prednisone 20 Mg Tablet) 40 mg PO DIRECTED [facility] Ranolazine (Ranolazine 500 Mg Tab.Er.12h) 500 mg PO BID [facility] Home Medications Medication Instructions Recorded Confirmed Last Taken Type albuterol sulfate 90 mcg/actuation 2 puff inhalation Q4H PRN 12/28/22 05/13/23 Unknown History aerosol inhaler Shortness Of Breath Or Wheezing famotidine 20 mg tablet 20 mg PO DAILY 12/28/22 05/13/23 01/23/23 09:00 History levothyroxine 100 mcg tablet 100 mcg PO DAILY@0600 12/28/22 05/13/23 05/03/23 History atorvastatin 20 mg tablet 20 mg PO BEDTIME 01/24/23 05/13/23 05/03/23 History fluticasone fur. 100 mcg-umeclid 1 ea inhalation DAILY 02/10/23 05/13/23 05/03/23 History 62.5 mcg-vilant 25 mcg inhalat.powder (Trelegy Ellipta) gabapentin 100 mg capsule 100 mg PO TID 05/04/23 05/13/23 05/03/23 History Physical Exam 2 Vital Signs and Narrative: Vital Signs: Last Vital Signs Temp 98.2 F 05/13/23 22:35 Pulse 78 05/13/23 22:35 Resp 15 05/13/23 22:35 BP 131/48 L 05/13/23 22:35 Pulse Ox 100 05/13/23 22:35 O2 Del Method Nasal Cannula 05/13/23 22:35 O2 Flow Rate 4 05/13/23 22:35 BMI result Body Mass Index 38.8 General: lethargic O X 3, no acute distress, overall ill appearing Resp: CTA bilateral, no accessory muscles used CVS: S1,S2,RRR GI: soft, non tender, non distended Neuro: flapping tremor Psych: appropriate affect, appropriate insight Results Labs 05/13/23 19:45 05/13/23 19:45 Labs: Laboratory Results - last 24 hr 05/13/23 05/13/23 05/13/23 19:44 19:45 22:24 MCV 100.0 H MCH 32.4 MCHC 32.4 RDW 14.6 Plt Count 231 MPV 10.6 Immature Gran % (Auto) 0.8 H Neut % (Auto) 82.2 H Lymph % (Auto) 9.7 L Alexander % (Auto) 3.9 Eos % (Auto) 3.3 Baso % (Auto) 0.1 Lymph # (Auto) 1.7 Alexander # (Auto) 0.7 Eos # (Auto) 0.6 H Baso # (Auto) 0.0 Abs Immat Gran (auto) 0.14 H Absolute Neuts (auto) 14.1 H Absolute Nucleated RBC 0.000 Nucleated RBC % (auto) 0.0 PT 11.3 D INR 0.9 APTT 22.1 L Anion Gap 23 H Estim Creat Clear Calc 7.7 Estimated GFR 7 Random Glucose 82 Lactic Acid 0.8 Calcium 7.0 L D Total Bilirubin 0.5 AST 24 ALT 13 Alkaline Phosphatase 68 Total Protein 6.3 L Albumin 3.1 L Lipase 4 L TSH 1.18 Urine Color Yellow Urine Appearance Cloudy Urine pH 5.5 Ur Specific [place] 1.015 Urine Protein Negative Urine Glucose (UA) Negative Urine Ketones Negative Urine Blood Negative Urine Nitrite Negative Ur Leukocyte Esterase Trace H Urine RBC 0-2 Urine WBC 0-5 Ur Squamous Epith Cells 0-2 Urine Bacteria 1+ Hyaline Casts 0-2 Urine Yeast Present Random Vancomycin 7.6 L Influenza Type A (PCR) NEGATIVE Influenza Type B (PCR) NEGATIVE RSV RNA Qual (PCR) NEGATIVE SARS-CoV-2 RNA (RT-PCR) NEGATIVE Imaging Radiologist's Impressions: Impressions Chest X-Ray 05/13/23 20:17 IMPRESSION: Better expansion lung volumes. Persistent bilateral opacities which show some mild clearing Head CT 05/13/23 21:25 IMPRESSION: 1. No acute intracranial pathology. 2. Chronic white matter small vessel ischemic changes. Assessment and Plan (1) Acute hyperkalemia: Status: Acute Plan history of NSTEMI, diastolic heart failure, chronic respiratory failure with hypoxia and hypercapnia on 4 L supplemental O2 at baseline, ESRD on dialysis MWF, COPD, interstitial lung disease, [id number] type 2 diabetes, hyperlipidemia, hypothyroidism, restless leg syndrome who is severely obese with BMI greater than 38 presented with hyperkalemia, ams Acute metabolic encephalopathy due to missed hemodialysis Nephro eval, hemodialysis Acute hyperkalemia Given lokelma, monitor Recent MSSA bacteremia Follow-up repeat cultures Vanc post hemodialysis Chronic hypoxic and hypercapnic respiratory failure on 4 L due to COPD/ild with recent acute decompensation Continue prednisone CAD Continue aspirin, statin, Ranexa Hypothyroid Synthroid Chronic diastolic CHF Still makes urine, continue Lasix DVT prophylaxis with heparin subQ DNR/DNI Patient with significant altered mental status, may need multiple rounds of hemodialysis for resolution, therefore, expected to require at least 2 midnights inpatient Quality Stroke Does the patient have a stroke diagnosis?: No VTE Prior VTE?: No VTE Risk Level:: Medical - moderate - high VTE Device Contraindication: Treatment Not Indicated VTE Drug Contraindication: N/A - Med Ordered
[2023-05-14] MEDS: Heparin Sodium,Porcine 5,000 UNIT/ML VIAL 5000 UNIT SUBCUT ×4 (00:25→23:25)
[2023-05-14] MEDS: 0.9 % Sodium Chloride Flush 3 ML SYRINGE IVFLUSH ×3 (00:30→21:23)
[2023-05-14 00:39] LABS: Venous Blood Gas Refer to POC result
[2023-05-14 00:42] LABS: VBG HCO3 19 mmol/L (22-26); VBG pCO2 35 mmHg; VBG pH 7.33 (7.32-7.43); VBG pO2 80 mmHg
[2023-05-14] MEDS: Morphine Sulfate 4 MG/ML CARTRIDGE IM (01:27)
[2023-05-14 01:35] VITALS: BP 121/36; PULSE 79; RESP 17; O2SAT 97
--- NOTE | 2023-05-14 01:44 | PC.NURSE ---
U/S IV to L AC was no longer patent. line removed. provider placed R EJ, line is patent at this time. pt medicated with morphine per MAR for head pain prior to placement.
--- NOTE | 2023-05-14 04:10 | PC.NURSE ---
pt resting comfortably with eyes closed, breathing even and unlabored. no apparent distress at this time
[2023-05-14 05:24] LABS: Hematocrit 29.2 % (37.0-47.0); Hemoglobin 9.6 g/dl (12.0-16.0); Mean Corpuscular HGB Conc 32.9 g/dl (31.0-35.0); Mean Corpuscular Volume 97.3 fL (80.0-98.0); Mean Platelet Volume 10.1 fL (9.4-12.3); Platelet Count 198 X10*3/uL (160-400); Red Cell Distribution Width 14.3 % (11.0-16.0); White Blood Count 13.1 X10*3/uL (4.8-10.8)
[2023-05-14 05:40] LABS: Anion Gap 24 (12-20); Blood Urea Nitrogen 102 mg/dL (9-16); Calcium 6.9 mg/dL (8.4-10.2); Carbon Dioxide 15 mmol/L (22-29); Chloride 105 mmol/L (96-108); Creatinine Clr Calc Pharmacy 7.1; Estimated Glomerular Filt Rate 6; Glucose Fasting 81 mg/dL (60-99); Magnesium 2.2 mg/dL (1.6-2.6); Potassium 4.8 mmol/L (3.3-5.1); Sodium 139 mmol/L (135-145)
[2023-05-14 06:21] VITALS: BP 122/48; PULSE 84; RESP 14; TEMP 36.5; O2SAT 97
[2023-05-14] MEDS: Levothyroxine Sodium 100 MCG TABLET PO (06:28)
--- NOTE | 2023-05-14 06:37 | PC.NURSE ---
pt resting comfortably, medicated per SEP. checked for incontinence, pt dry at this time. EJ line flushed, very positional
[2023-05-14] MEDS: vancomycin HCL 500 MG in 0.9 % Sodium Chloride 100 ML 110 MG IV ×2 (07:50→21:19)
[2023-05-14 08:55] VITALS: BP 130/56; PULSE 80; RESP 18; TEMP 36.6; O2SAT 96; BMI 36.9
[2023-05-14 09:19] LABS: Glucose, Whole Blood 67 mg/dL (60-115)
[2023-05-14 12:09] LABS: Glucose, Whole Blood 69 mg/dL (60-115)
--- NOTE | 2023-05-14 13:31 | PM.PNNEP ---
Subjective Subjective Date of Service: 05/14/23 Interval history: RTANE CONSULTED for ESRD hyperK and a readm as was just d/c'd sev days ago [facility] mwf but doing HD today and then back on MWF schedule On vanco post HD for recent MSSA infetion Full dict consult to follow Physical Exam Vital Signs: Vital Signs: Last Vital Signs Temp 97.8 F 05/14/23 08:55 Pulse 80 05/14/23 08:55 Resp 18 05/14/23 08:55 BP 130/56 L 05/14/23 08:55 Pulse Ox 96 05/14/23 08:55 O2 Del Method Nasal Cannula 05/14/23 08:55 O2 Flow Rate 4 05/14/23 08:55 BMI result Body Mass Index 36.9 Const: General: comfortable, no acute distress, alert and awake Nutritional Appearance: well nourished HEENT: Head: Yes normocephalic and Yes atraumatic Eyes: Eyelids: Yes eyelids normal Conjunctivae: conjunctivae normal Sclerae: sclerae normal Corneas: corneas normal Pupils: Equal, round and reactive pupils present EOM: EOMs intact bilaterally Neck: Neck: Yes full ROM Resp: Effort & Inspection: normal respiratory effort, able to speak in complete sentences and not labored GI: Inspection: No distended Palpation (GI): Soft to palpation, not firm, nontender, no guarding and not rigid Skin: General skin exam: elasticity normal Neuro: Other: Director Of Public Relations strength bilaterally is 4-5 Strength to bilateral upper extremities is 4-5 to major muscle groups. Strength to lower extremities bilaterally is 2/5 with flexion Cranial nerves: Yes CN's II-XII intact bilaterally, Yes Equal, round and reactive pupils present and Yes Bilaterally intact EOM present Cognition (Neuro): normal cognition Speech: Abnormal speech present slurred (Patient's speech is mostly clear but occasionally will have slurred words); Negative for stuttering or complete aphasia Motor exam (neuro): strength not 5/5 throughout Extrem: Other: Moving all extremities well without any obvious deformities Objective Data Labs 05/14/23 05:18 05/14/23 05:18 Labs: Laboratory Results - last 24 hr 05/13/23 05/13/23 05/13/23 19:44 19:45 22:24 WBC 17.1 H RBC 3.15 L Hgb 10.2 L Hct 31.5 L MCV 100.0 H MCH 32.4 MCHC 32.4 RDW 14.6 Plt Count 231 MPV 10.6 Immature Gran % (Auto) 0.8 H Neut % (Auto) 82.2 H Lymph % (Auto) 9.7 L [place] % (Auto) 3.9 Eos % (Auto) 3.3 Baso % (Auto) 0.1 Lymph # (Auto) 1.7 [place] # (Auto) 0.7 Eos # (Auto) 0.6 H Baso # (Auto) 0.0 Abs Immat Gran (auto) 0.14 H Absolute Neuts (auto) 14.1 H Absolute Nucleated RBC 0.000 Nucleated RBC % (auto) 0.0 PT 11.3 D INR 0.9 APTT 22.1 L VBG pH VBG pCO2 VBG pO2 VBG HCO3 VBG O2 Saturation VBG Base Excess Sodium 137 Potassium 5.9 H Chloride 103 Carbon Dioxide 17 L Anion Gap 23 H BUN 97 H Creatinine 5.89 H* Estim Creat Clear Calc 7.7 Estimated GFR 7 POC Glucose Random Glucose 82 Fasting Glucose Lactic Acid 0.8 Calcium 7.0 L D Magnesium Total Bilirubin 0.5 AST 24 ALT 13 Alkaline Phosphatase 68 Troponin I High Sens 17.2 H D Total Protein 6.3 L Albumin 3.1 L Lipase 4 L TSH 1.18 Urine Color Yellow Urine Appearance Cloudy Urine pH 5.5 Ur Specific [place] 1.015 Urine Protein Negative Urine Glucose (UA) Negative Urine Ketones Negative Urine Blood Negative Urine Nitrite Negative Ur Leukocyte Esterase Trace H Urine RBC 0-2 Urine WBC 0-5 Ur Squamous Epith Cells 0-2 Urine Bacteria 1+ Hyaline Casts 0-2 Urine Yeast Present Random Vancomycin 7.6 L Influenza Type A (PCR) NEGATIVE Influenza Type B (PCR) NEGATIVE RSV RNA Qual (PCR) NEGATIVE SARS-CoV-2 RNA (RT-PCR) NEGATIVE 05/14/23 05/14/23 05/14/23 00:36 05:18 09:01 WBC 13.1 H RBC 3.00 L Hgb 9.6 L Hct 29.2 L MCV 97.3 MCH 32.0 MCHC 32.9 RDW 14.3 Plt Count 198 MPV 10.1 Immature Gran % (Auto) Neut % (Auto) Lymph % (Auto) [place] % (Auto) Eos % (Auto) Baso % (Auto) Lymph # (Auto) [place] # (Auto) Eos # (Auto) Baso # (Auto) Abs Immat Gran (auto) Absolute Neuts (auto) Absolute Nucleated RBC 0.000 Nucleated RBC % (auto) 0.0 PT INR APTT VBG pH 7.33 VBG pCO2 35 VBG pO2 80 VBG HCO3 19 L VBG O2 Saturation 93.0 VBG Base Excess -6.0 Sodium 139 Potassium 4.8 Chloride 105 Carbon Dioxide 15 L Anion Gap 24 H BUN 102 H Creatinine 6.36 H* Estim Creat Clear Calc 7.1 Estimated GFR 6 POC Glucose 67 Random Glucose Fasting Glucose 81 Lactic Acid Calcium 6.9 L Magnesium 2.2 Total Bilirubin AST ALT Alkaline Phosphatase Troponin I High Sens Total Protein Albumin Lipase TSH Urine Color Urine Appearance Urine pH Ur Specific [place] Urine Protein Urine Glucose (UA) Urine Ketones Urine Blood Urine Nitrite Ur Leukocyte Esterase Urine RBC Urine WBC Ur Squamous Epith Cells Urine Bacteria Hyaline Casts Urine Yeast Random Vancomycin Influenza Type A (PCR) Influenza Type B (PCR) RSV RNA Qual (PCR) SARS-CoV-2 RNA (RT-PCR) 05/14/23 12:05 WBC RBC Hgb Hct MCV MCH MCHC RDW Plt Count MPV Immature Gran % (Auto) Neut % (Auto) Lymph % (Auto) [place] % (Auto) Eos % (Auto) Baso % (Auto) Lymph # (Auto) [place] # (Auto) Eos # (Auto) Baso # (Auto) Abs Immat Gran (auto) Absolute Neuts (auto) Absolute Nucleated RBC Nucleated RBC % (auto) PT INR APTT VBG pH VBG pCO2 VBG pO2 VBG HCO3 VBG O2 Saturation VBG Base Excess Sodium Potassium Chloride Carbon Dioxide Anion Gap BUN Creatinine Estim Creat Clear Calc Estimated GFR POC Glucose 69 Random Glucose Fasting Glucose Lactic Acid Calcium Magnesium Total Bilirubin AST ALT Alkaline Phosphatase Troponin I High Sens Total Protein Albumin Lipase TSH Urine Color Urine Appearance Urine pH Ur Specific [place] Urine Protein Urine Glucose (UA) Urine Ketones Urine Blood Urine Nitrite Ur Leukocyte Esterase Urine RBC Urine WBC Ur Squamous Epith Cells Urine Bacteria Hyaline Casts Urine Yeast Random Vancomycin Influenza Type A (PCR) Influenza Type B (PCR) RSV RNA Qual (PCR) SARS-CoV-2 RNA (RT-PCR) Procedures Date of Service Date of Service: 05/14/23 Assessment & Plan Assessment and plan (1) Acute hyperkalemia: Status: Acute Plan history of NSTEMI, diastolic heart failure, chronic respiratory failure with hypoxia and hypercapnia on 4 L supplemental O2 at baseline, ESRD on dialysis MWF, COPD, interstitial lung disease, [id number] type 2 diabetes, hyperlipidemia, hypothyroidism, restless leg syndrome who is severely obese with BMI greater than 38 presented with hyperkalemia, ams Acute metabolic encephalopathy due to missed hemodialysis Time Spent With Patient Time: Total time managing care of this patient today ____ minutes. Progress Note: Quality Stroke Does the patient have a stroke diagnosis?: No
[2023-05-14 13:56] VITALS: BP 128/60; PULSE 90; RESP 18
--- NOTE | 2023-05-14 15:34 | P.PNIM_ITS ---
Subjective Subjective Date of Service: 05/14/23 Interval History: seen and examined this morning follow up for hyperkalemia, AMS awake and alert this morning reporting tremors which caused her to fall on the day of admission. no tremor noted at this time Review of Systems Review of Systems: Yes all other systems are reviewed and are negative Constitutional Constitutional: Denies chills and Denies fever(s) Cardiovascular Cardiovascular: Denies chest pain, Denies palpitations and Denies dyspnea Respiratory Respiratory: Reports cough (improving compared to previous admission ) and Denies dyspnea Gastrointestinal Gastrointestinal: Denies abdominal pain, Denies nausea and Denies vomiting Endocrine Endocrine: Denies palpitations Physical Exam 2 Vital Signs: Vital Signs: Last Vital Signs Temp 97.8 F 05/14/23 08:55 Pulse 90 05/14/23 13:56 Resp 18 05/14/23 13:56 BP 128/60 05/14/23 13:56 Pulse Ox 96 05/14/23 08:55 O2 Del Method Nasal Cannula 05/14/23 13:56 O2 Flow Rate 4 05/14/23 13:56 BMI result Body Mass Index 36.9 Const: General: cooperative, comfortable, no acute distress, alert and awake Nutritional Appearance: obese Orientation/consciousness: patient oriented x3 Resp: Effort & Inspection: normal respiratory effort, able to speak in complete sentences, no respiratory distress and no use of accessory muscles Cardio: Rate: regular rate GI: Inspection: No distended Palpation (GI): Soft to palpation and nontender Neuro: Other: grossly nonfocal General: patient oriented x3 and moves all extremities Extrem: Other: RUE fistula with palpable thrill Objective Data Active Medications Albuterol Sulfate (Albuterol Sulfate 90 Mcg 8 Gm Inhaler) 2 puff INHALE Q4H PRN PRN Reason: Shortness Of Breath Or Wheezing Aspirin (Aspirin Enteric Coated 81 Mg Tablet.) 81 mg PO DAILY [facility] Last Admin: 05/14/23 09:43 Dose: Not Given Documented By: ROXY Non-Admin Reason: Off unit: Dialysis Atorvastatin Calcium (Atorvastatin Calcium 20 Mg Tablet) 20 mg PO BEDTIME [facility] Dextrose (Dextrose 50 % 25 Gm/50 Ml Syringe) 25 gm IVPUSH Q15M PRN; Protocol PRN Reason: per Hypoglycemia Standing Ord. Escitalopram Oxalate (Escitalopram Oxalate 10 Mg Tablet) 10 mg PO DAILY [facility] Last Admin: 05/14/23 09:43 Dose: Not Given Documented By: ROXY Non-Admin Reason: Off unit: Dialysis Famotidine (Famotidine 20 Mg Tablet) 20 mg PO DAILY [facility] Last Admin: 05/14/23 09:43 Dose: Not Given Documented By: ROXY Non-Pedro Reason: Off unit: Dialysis Fluticasone/Umeclidinium/Vilanterol (Fluticasone/Umeclidinium/Vilanterol 100/62.5/25 Blst.W.Dev) 1 puff INHALE DAILY [facility] Last Admin: 05/14/23 08:32 Dose: Not Given Documented By: JAYME Non-Admin Reason: mdi not avail, pharm called. Furosemide (Furosemide 40 Mg Tablet) 40 mg PO BID@0900,1800 [facility]; Protocol Last Admin: 05/14/23 09:43 Dose: Not Given Documented By: ROXY Non-Admin Reason: Given in Dialysis Gabapentin (Gabapentin 100 Mg Capsule) 100 mg PO TID [facility] Last Admin: 05/14/23 09:43 Dose: Not Given Documented By: ROXY Non-Admin Reason: Off unit: Dialysis Glucose (Glucose Gel 15 Gm Gel..Gram.) 15 gm PO Q15M PRN; Protocol PRN Reason: per Hypoglycemia Standing Ord. Heparin Sodium (Porcine) (Heparin Sodium,Porcine 5,000 Unit/Ml Vial) 5,000 unit SUBCUT Q8H [facility] Last Admin: 05/14/23 08:29 Dose: 5,000 unit Documented By: YOANDY Vancomycin HCl 500 mg/ Sodium (Chloride) 110 mls @ 110 mls/hr IV ONCE ONE Stop: 05/14/23 08:29 Insulin Human Lispro (Insulin Lispro 100 Unit/Ml 3 Ml Vial) 0 unit SUBCUT QIDACHS [facility]; Protocol Last Admin: 05/14/23 13:00 Dose: Not Given Documented By: ROXY Non-Admin Reason: No Insulin Coverage Levothyroxine Sodium (Levothyroxine Sodium 100 Mcg Tablet) 100 mcg PO DAILY@0600 [facility] Last Admin: 05/14/23 06:28 Dose: 100 mcg Documented By: SAMANTHA Metoprolol Tartrate (Metoprolol Tartrate 12.5 Mg Halftab) 12.5 mg PO BID [facility]; Protocol Last Admin: 05/14/23 09:44 Dose: Not Given Documented By: ROXY Non-Admin Reason: Off unit: Dialysis Nitroglycerin (Nitroglycerin 0.4 Mg Tab.Subl) 0.4 mg SUBLINGUAL Q5M PRN PRN Reason: chest pain Pharmacy Consult (Consult Rx Vancomycin Dosing) 1 each MISCELLANE DAILY PRN PRN Reason: Consult order Prednisone (Prednisone 20 Mg Tablet) 40 mg PO DAILY [facility] Stop: 05/15/23 09:01 Last Admin: 05/14/23 09:44 Dose: Not Given Documented By: ROXY Non-Admin Reason: Off unit: Dialysis Ranolazine (Ranolazine 500 Mg Tab.Er.12h) 500 mg PO BID [facility] Last Admin: 05/14/23 09:44 Dose: Not Given Documented By: ROXY Non-Pedro Reason: Off unit: Dialysis Sodium Chloride (0.9 % Sodium Chloride Flush 3 Ml Syringe) 3 ml IVFLUSH QSHIFT [facility] Last Admin: 05/14/23 08:36 Dose: Not Given Documented By: YOANDY Non-Admin Reason: IV Running Labs 05/14/23 05:18 05/14/23 05:18 Labs: Laboratory Results - last 24 hr 05/13/23 05/13/23 05/13/23 19:44 19:45 22:24 MCV 100.0 H MCH 32.4 MCHC 32.4 RDW 14.6 Plt Count 231 MPV 10.6 Immature Gran % (Auto) 0.8 H Neut % (Auto) 82.2 H Lymph % (Auto) 9.7 L [place] % (Auto) 3.9 Eos % (Auto) 3.3 Baso % (Auto) 0.1 Lymph # (Auto) 1.7 [place] # (Auto) 0.7 Eos # (Auto) 0.6 H Baso # (Auto) 0.0 Abs Immat Gran (auto) 0.14 H Absolute Neuts (auto) 14.1 H Absolute Nucleated RBC 0.000 Nucleated RBC % (auto) 0.0 PT 11.3 D INR 0.9 APTT 22.1 L VBG pH VBG pCO2 VBG pO2 VBG HCO3 VBG O2 Saturation VBG Base Excess Anion Gap 23 H Estim Creat Clear Calc 7.7 Estimated GFR 7 POC Glucose Random Glucose 82 Fasting Glucose Lactic Acid 0.8 Calcium 7.0 L D Magnesium Total Bilirubin 0.5 AST 24 ALT 13 Alkaline Phosphatase 68 Total Protein 6.3 L Albumin 3.1 L Lipase 4 L TSH 1.18 Urine Color Yellow Urine Appearance Cloudy Urine pH 5.5 Ur Specific [place] 1.015 Urine Protein Negative Urine Glucose (UA) Negative Urine Ketones Negative Urine Blood Negative Urine Nitrite Negative Ur Leukocyte Esterase Trace H Urine RBC 0-2 Urine WBC 0-5 Ur Squamous Epith Cells 0-2 Urine Bacteria 1+ Hyaline Casts 0-2 Urine Yeast Present Random Vancomycin 7.6 L Influenza Type A (PCR) NEGATIVE Influenza Type B (PCR) NEGATIVE RSV RNA Qual (PCR) NEGATIVE SARS-CoV-2 RNA (RT-PCR) NEGATIVE 05/14/23 05/14/23 05/14/23 00:36 05:18 09:01 MCV 97.3 MCH 32.0 MCHC 32.9 RDW 14.3 Plt Count 198 MPV 10.1 Immature Gran % (Auto) Neut % (Auto) Lymph % (Auto) [place] % (Auto) Eos % (Auto) Baso % (Auto) Lymph # (Auto) [place] # (Auto) Eos # (Auto) Baso # (Auto) Abs Immat Gran (auto) Absolute Neuts (auto) Absolute Nucleated RBC 0.000 Nucleated RBC % (auto) 0.0 PT INR APTT VBG pH 7.33 VBG pCO2 35 VBG pO2 80 VBG HCO3 19 L VBG O2 Saturation 93.0 VBG Base Excess -6.0 Anion Gap 24 H Estim Creat Clear Calc 7.1 Estimated GFR 6 POC Glucose 67 Random Glucose Fasting Glucose 81 Lactic Acid Calcium 6.9 L Magnesium 2.2 Total Bilirubin AST ALT Alkaline Phosphatase Total Protein Albumin Lipase TSH Urine Color Urine Appearance Urine pH Ur Specific [place] Urine Protein Urine Glucose (UA) Urine Ketones Urine Blood Urine Nitrite Ur Leukocyte Esterase Urine RBC Urine WBC Ur Squamous Epith Cells Urine Bacteria Hyaline Casts Urine Yeast Random Vancomycin Influenza Type A (PCR) Influenza Type B (PCR) RSV RNA Qual (PCR) SARS-CoV-2 RNA (RT-PCR) 05/14/23 12:05 MCV MCH MCHC RDW Plt Count MPV Immature Gran % (Auto) Neut % (Auto) Lymph % (Auto) [place] % (Auto) Eos % (Auto) Baso % (Auto) Lymph # (Auto) [place] # (Auto) Eos # (Auto) Baso # (Auto) Abs Immat Gran (auto) Absolute Neuts (auto) Absolute Nucleated RBC Nucleated RBC % (auto) PT INR APTT VBG pH VBG pCO2 VBG pO2 VBG HCO3 VBG O2 Saturation VBG Base Excess Anion Gap Estim Creat Clear Calc Estimated GFR POC Glucose 69 Random Glucose Fasting Glucose Lactic Acid Calcium Magnesium Total Bilirubin AST ALT Alkaline Phosphatase Total Protein Albumin Lipase TSH Urine Color Urine Appearance Urine pH Ur Specific [place] Urine Protein Urine Glucose (UA) Urine Ketones Urine Blood Urine Nitrite Ur Leukocyte Esterase Urine RBC Urine WBC Ur Squamous Epith Cells Urine Bacteria Hyaline Casts Urine Yeast Random Vancomycin Influenza Type A (PCR) Influenza Type B (PCR) RSV RNA Qual (PCR) SARS-CoV-2 RNA (RT-PCR) Assessment and Plan (1) Acute hyperkalemia: Status: Acute (2) Encephalopathy: Status: Acute Plan This is an 82 year old female with history of NSTEMI, diastolic heart failure, chronic respiratory failure with hypoxia and hypercapnia on 4 L supplemental O2 at baseline, ESRD on dialysis MWF, COPD, interstitial lung disease, [id number] type 2 diabetes, hyperlipidemia, hypothyroidism, restless leg syndrome who is severely obese with BMI greater than 38 presented with hyperkalemia, ams Acute metabolic encephalopathy due to missed hemodialysis plan for HD today, then resume normal MWF schedule leukocytosis likely related to steroid use wbc trending down Tremor pt reports intermittent tremor which has caused her to fall several times including on the day of admission previous PT eval does note generalized jerking movements during assessment no tremor noted on exam at this time will consult neuro PT eval due to falls Acute hyperkalemia resolved with lokelma Recent MSSA bacteremia repeat blood cultures pending continue Vancomycin post hemodialysis Chronic hypoxic and hypercapnic respiratory failure on 4 L due to COPD/ild with recent acute decompensation Continue prednisone [id number] type 2 diabetes continue diabetic diet, SSI, POCs CAD Continue aspirin, statin, Ranexa Hypothyroid Synthroid Chronic diastolic CHF Still makes urine, continue Lasix Severe obesity with BMI greater than 38 working on weight loss, down about 10kg last 4month, encourage continued weight loss efforts DVT prophylaxis with heparin subQ DNR/DNI attending - dr. rainey Requires ongoing inpatient stay due to need for HD and specialist evaluation Quality Stroke Does the patient have a stroke diagnosis?: No VTE Prior VTE?: No VTE Risk Level:: Medical - moderate - high VTE Device Contraindication: Treatment Not Indicated VTE Drug Contraindication: N/A - Med Ordered
[2023-05-14] MEDS: oxyCODONE HCl Immed Release 5 MG TABLET PO ×2 (15:48→21:58)
[2023-05-14] MEDS: Gabapentin 100 MG CAPSULE PO ×2 (15:48→20:30)
[2023-05-14 16:00] VITALS: BP 126/58; PULSE 88; RESP 19; TEMP 36.2; O2SAT 99
[2023-05-14 16:25] LABS: Glucose, Whole Blood 127 mg/dL (60-115)
[2023-05-14] MEDS: Furosemide 40 MG TABLET PO (18:00)
[2023-05-14 19:39] VITALS: BP 108/54; PULSE 85; RESP 18; TEMP 36.3; O2SAT 98
[2023-05-14 20:21] LABS: Glucose, Whole Blood 100 mg/dL (60-115)
[2023-05-14] MEDS: Ranolazine 500 MG TAB.ER.12H PO (20:30)
[2023-05-14] MEDS: Acetaminophen 325 MG TABLET 650 MG PO (20:30)
[2023-05-14] MEDS: Metoprolol Tartrate 12.5 MG HALFTAB PO (20:31)
[2023-05-14] MEDS: Atorvastatin Calcium 20 MG TABLET PO (20:31)
[2023-05-14 20:33] LABS: Vancomycin Random 10.9 mcg/mL (15-20)
[2023-05-15 03:47] VITALS: BP 121/56; PULSE 69; RESP 17; TEMP 36.3; O2SAT 99
[2023-05-15] MEDS: Levothyroxine Sodium 100 MCG TABLET PO (05:42)
[2023-05-15 07:09] LABS: Anion Gap 17 (12-20); Blood Urea Nitrogen 55 mg/dL (9-16); Calcium 7.3 mg/dL (8.4-10.2); Carbon Dioxide 22 mmol/L (22-29); Chloride 101 mmol/L (96-108); Creatinine Clr Calc Pharmacy 9.4; Estimated Glomerular Filt Rate 9; Glucose Random 99 mg/dL (60-115); Potassium 3.8 mmol/L (3.3-5.1); Sodium 136 mmol/L (135-145)
[2023-05-15 10:39] LABS: Glucose, Whole Blood 85 mg/dL (60-115)
--- NOTE | 2023-05-15 11:09 | PM.NEUROCN ---
History of Present Illness Data of Consult Service Date: 05/15/23 Primary Care Provider: Christina Paiz MD HPI Reason for consult: Tremor and difficulty speaking 82F PMH NSTEMI, diastolic heart failure, chronic respiratory failure with hypoxia and hypercapnia on 4 L supplemental O2 at baseline, ESRD on dialysis MWF, COPD, staph bacteremia, interstitial lung disease, [id number] type 2 diabetes, hyperlipidemia, hypothyroidism, restless leg syndrome who is severely obese presented with fall, and confusion. She also complained of difficulty speaking and shaking. Now she was better. There was no recent trauma seizure-like episodes or cold or flu-like illness. Review of Systems Review of Systems: No recent cold or flu-like illness PMFSH Past Medical History Medical History (HFpEF) heart failure with preserved ejection fraction ESRD needing dialysis NSTEMI (non-ST elevated myocardial infarction) Cough Respiratory failure with hypoxia Interstitial lung disease Depression, major, recurrent Dyslipidemia Osteoarthritis of multiple joints Acquired hypothyroidism Heart murmur Fibromyalgia Diabetes Family History Family History Brother Substance use disorder Son Substance use disorder Daughter Substance use disorder Surgical History Surgical History Hx of tonsillectomy S/P appendectomy Hx of fusion of cervical spine S/P anal fissurectomy H/O hemorrhoidectomy S/P partial hysterectomy Social History Social History Household Members: Children Household Members Other:: Lives alone granddaughter lives in attached house Housing: House Do you presently have visiting nurse or other home services: No Alcohol intake: current Alcohol intake frequency: holidays/special occasions only Patient Tobacco Use Status: Former Tobacco user Quit Date: 15 years ago Tobacco use type: Cigarette Years Smoked: 20 +/- on and off Smoked in Last 30 Days: No e-Cigarette/Vaping Use: Never Used Second Hand Smoke Exposure: No Use of substances other than those prescribed or required for medical reasons: No Currently Displaying Signs/Symptoms of Drug Intoxication Withdrawal: No Have you been hit, kicked, punched, or otherwise hurt by someone within the past year? If so, by whom?: No Do you feel safe in your current relationship?: Yes Is there a partner from a previous relationship who is making you feel unsafe now?: No Are you made to feel afraid or neglected: No Advance Directives: Yes Advance Directives on File: Yes Advance Directives Date on File: 02/01/23 Do you have thoughts of harming others: None Do you have a plan to hurt others: No Plan Recently lost weight without trying: No Eating poorly because of decreased appetite: No Nutrition Risks: No Nutritional Risk Patient : No : No Poor oral hygiene: No service: No Current occupational status: retired Current occupation: right handed Cognitive needs: No Hearing needs: No Vision needs: Yes Meds Allergies Allergy/AdvReac Type Severity Reaction Status Date / Time NSAIDS (Non-Steroidal Allergy Unknown Verified 05/13/23 18:45 Anti-Inflamma [id number]-[id number] Reductase AdvReac Severe LEG PAIN Verified 05/13/23 18:45 Inhibitor Active Medications: Current Medications Acetaminophen (Acetaminophen 325 Mg Tablet) 650 mg PO Q6H PRN PRN Reason: moderate pain Last Admin: 05/14/23 20:30 Dose: 650 mg Albuterol Sulfate (Albuterol Sulfate 90 Mcg 8 Gm Inhaler) 2 puff INHALE Q4H PRN PRN Reason: Shortness Of Breath Or Wheezing Aspirin (Aspirin Enteric Coated 81 Mg Tablet.Dr) 81 mg PO DAILY [facility] Last Admin: 05/15/23 11:02 Dose: Not Given Atorvastatin Calcium (Atorvastatin Calcium 20 Mg Tablet) 20 mg PO BEDTIME [facility] Last Admin: 05/14/23 20:31 Dose: 20 mg Dextrose (Dextrose 50 % 25 Gm/50 Ml Syringe) 25 gm IVPUSH Q15M PRN; Protocol PRN Reason: per Hypoglycemia Standing Ord. Escitalopram Oxalate (Escitalopram Oxalate 10 Mg Tablet) 10 mg PO DAILY [facility] Last Admin: 05/15/23 11:02 Dose: Not Given Famotidine (Famotidine 20 Mg Tablet) 20 mg PO DAILY [facility] Last Admin: 05/15/23 11:02 Dose: Not Given Fluticasone/Umeclidinium/Vilanterol (Fluticasone/Umeclidinium/Vilanterol 100/62.5/25 Blst.W.Dev) 1 puff INHALE DAILY [facility] Last Admin: 05/15/23 08:42 Dose: Not Given Furosemide (Furosemide 40 Mg Tablet) 40 mg PO BID@0900,1800 [facility]; Protocol Last Admin: 05/15/23 11:02 Dose: Not Given Gabapentin (Gabapentin 100 Mg Capsule) 100 mg PO TID [facility] Last Admin: 05/15/23 11:02 Dose: Not Given Glucose (Glucose Gel 15 Gm Gel..Gram.) 15 gm PO Q15M PRN; Protocol PRN Reason: per Hypoglycemia Standing Ord. Heparin Sodium (Porcine) (Heparin Sodium,Porcine 5,000 Unit/Ml Vial) 5,000 unit SUBCUT Q8H [facility] Last Admin: 05/15/23 11:01 Dose: Not Given Vancomycin HCl 500 mg/ Sodium (Chloride) 110 mls @ 110 mls/hr IV ONCE ONE Stop: 05/14/23 08:29 Insulin Human Lispro (Insulin Lispro 100 Unit/Ml 3 Ml Vial) 0 unit SUBCUT QIDACHS [facility]; Protocol Last Admin: 05/15/23 11:01 Dose: Not Given Levothyroxine Sodium (Levothyroxine Sodium 100 Mcg Tablet) 100 mcg PO DAILY@0600 [facility] Last Admin: 05/15/23 05:42 Dose: 100 mcg Metoprolol Tartrate (Metoprolol Tartrate 12.5 Mg Halftab) 12.5 mg PO BID [facility]; Protocol Last Admin: 05/15/23 11:02 Dose: Not Given Nitroglycerin (Nitroglycerin 0.4 Mg Tab.Subl) 0.4 mg SUBLINGUAL Q5M PRN PRN Reason: chest pain Pharmacy Consult (Consult Rx Vancomycin Dosing) 1 each MISCELLANE DAILY PRN PRN Reason: Consult order Ranolazine (Ranolazine 500 Mg Tab.Er.12h) 500 mg PO BID [facility] Last Admin: 05/15/23 11:02 Dose: Not Given Sodium Chloride (0.9 % Sodium Chloride Flush 3 Ml Syringe) 3 ml IVFLUSH QSHIFT [facility] Last Admin: 05/15/23 11:02 Dose: Not Given Home Medications Medication Instructions Recorded Confirmed Last Taken Type albuterol sulfate 90 mcg/actuation 2 puff inhalation Q4H PRN 12/28/22 05/13/23 Unknown History aerosol inhaler Shortness Of Breath Or Wheezing famotidine 20 mg tablet 20 mg PO DAILY 12/28/22 05/13/23 01/23/23 09:00 History levothyroxine 100 mcg tablet 100 mcg PO DAILY@0600 12/28/22 05/13/23 05/03/23 History atorvastatin 20 mg tablet 20 mg PO BEDTIME 01/24/23 05/13/23 05/03/23 History fluticasone fur. 100 mcg-umeclid 1 ea inhalation DAILY 02/10/23 05/13/23 05/03/23 History 62.5 mcg-vilant 25 mcg inhalat.powder (Trelegy Ellipta) gabapentin 100 mg capsule 100 mg PO TID 05/04/23 05/13/23 05/03/23 History Physical Exam Vital Signs: Vital Signs: Last Vital Signs Temp 97.3 F 05/15/23 03:47 Pulse 69 05/15/23 03:47 Resp 17 05/15/23 03:47 BP 121/56 L 05/15/23 03:47 Pulse Ox 99 05/15/23 03:47 O2 Del Method Nasal Cannula 05/15/23 03:47 O2 Flow Rate 4 05/15/23 03:47 BMI result Body Mass Index 36.9 Neuro: Other: She is alert and awake with normal spontaneity of speech fluency comprehension and affect. Speech is normal. There is mild postural tremor in upper extremities and sustained posture. Deep tendon reflexes are absent. She sensitive to touch with hyperesthesia in legs limiting examination. Plantars were withdrawing. There was no visual or sensory extinction. Results Labs 05/14/23 05:18 05/15/23 06:41 Labs: BMP 05/15/23 06:41 Sodium 136 Potassium 3.8 D Chloride 101 Carbon Dioxide 22 BUN 55 H Creatinine 4.66 H* Calcium 7.[address] revealed mild diffuse chronic microvascular ischemic changes. UA was slightly positive for leukocyte Estrace. Microbiology Microbiology Results: Microbiology 05/13/23 20:11 Blood - Venous Blood Culture - Preliminary No growth after 24 hours. 05/13/23 19:45 Blood - Venous Blood Culture - Preliminary No growth after 24 hours. Assessment and Plan (1) Encephalopathy: Status: Acute 82 years old woman with complex underlying medical history presented with symptoms suggestive of diffuse cerebral dysfunction, likely metabolic toxic encephalopathy. She also has features of chronic neuropathy not unusual with her previous medical conditions and mild tremor. Tremor does not need to be treated at this time. Procedures Date of Service Date of Service: 05/15/23
[2023-05-15] MEDS: oxyCODONE HCl Immed Release 5 MG TABLET PO ×2 (11:44→16:28)
[2023-05-15 11:53] LABS: Glucose, Whole Blood 194 mg/dL (60-115)
[2023-05-15] MEDS: Insulin Lispro 100 UNIT/ML 3 ML VIAL SUBCUT (12:15)
[2023-05-15 12:45] VITALS: BP 121/56; PULSE 69; O2SAT 99
[2023-05-15 13:04] VITALS: BP 97/53; PULSE 84; RESP 24; TEMP 36.8; O2SAT 95
[2023-05-15 13:32] LABS: Vancomycin Random 13.1 mcg/mL (15-20)
--- NOTE | 2023-05-15 14:16 | PM.PNNEP ---
Subjective Subjective Date of Service: 05/15/23 Interval history: dialyzed today. Physical Exam Vital Signs: Vital Signs: Last Vital Signs Temp 98.3 F 05/15/23 13:04 Pulse 84 05/15/23 13:04 Resp 24 H 05/15/23 13:04 BP 97/53 L 05/15/23 13:04 Pulse Ox 95 05/15/23 13:04 O2 Del Method Nasal Cannula 05/15/23 13:04 O2 Flow Rate 4 05/15/23 13:04 BMI result Body Mass Index 36.9 Const: General: alert Resp: Effort & Inspection: normal respiratory effort, able to speak in complete sentences and not labored GI: Inspection: No distended Palpation (GI): Soft to palpation, not firm, nontender, no guarding and not rigid Extrem: Other: Moving all extremities well without any obvious deformities Objective Data Labs 05/14/23 05:18 05/15/23 06:41 Labs: Laboratory Results - last 24 hr 05/14/23 05/14/23 05/14/23 16:21 20:16 20:18 Sodium Potassium Chloride Carbon Dioxide Anion Gap BUN Creatinine Estim Creat Clear Calc Estimated GFR POC Glucose 127 H 100 Random Glucose Calcium Random Vancomycin 10.9 L 05/15/23 05/15/23 05/15/23 06:41 10:35 11:49 Sodium 136 Potassium 3.8 D Chloride 101 Carbon Dioxide 22 Anion Gap 17 BUN 55 H Creatinine 4.66 H* Estim Creat Clear Calc 9.4 Estimated GFR 9 POC Glucose 85 194 H Random Glucose 99 Calcium 7.3 L Random Vancomycin 05/15/23 13:08 Sodium Potassium Chloride Carbon Dioxide Anion Gap BUN Creatinine Estim Creat Clear Calc Estimated GFR POC Glucose Random Glucose Calcium Random Vancomycin 13.1 L Microbiology Microbiology Results: Microbiology 05/13/23 20:11 Blood - Venous Blood Culture - Preliminary No growth after 24 hours. 05/13/23 19:45 Blood - Venous Blood Culture - Preliminary No growth after 24 hours. Procedures Date of Service Date of Service: 05/15/23 Assessment & Plan Assessment and plan (1) Encephalopathy: Status: Acute Assessment and Plan: 82-year-old female with past medical history of ESRD, HTN, T2DM, Hyperuricemia, hypothyroidism, and COPD/Bronchitis who presents with AMS due to missed HD. The pt had her RUE AVF placed Thursday12/24/22 at [facility]. Dialyzes at [place] [facility] Plan: - HD continued on MWF schedule - protect RUE AVF - ok to c/w lasix 40mg PO BId, pt still makes urine - No need for ESAs right now Time Spent With Patient Time: Total time managing care of this patient today ____ minutes. Progress Note: Quality Stroke Does the patient have a stroke diagnosis?: No
--- NOTE | 2023-05-15 14:50 | MHC.CM.PN ---
IMM 05/15/23 DX Hyperkalemia Metabolic Encephalopathy. [facility] Her Great grandaughter is her [employer] SPECIALIST through [employer]. Patient uses a wheel chair. She is no longer ambulatory, due to shaking. The shaking occurs when she attempts to stand. She is no longer able to transport to HD by chairvan. Met with provider and patient to discuss discharge planning. Patient's dtr was on the phone. It was decided that the patient would go to a facility. [facility]. She received HD at [facility]. A referral has been sent to [facility]. The patient received a Neuro eval. The recommendation is for OUTpt testing. [facility] via BLS.
[2023-05-15] MEDS: vancomycin HCL 500 MG in 0.9 % Sodium Chloride 100 ML 110 MG IV (15:10)
[2023-05-15] MEDS: Heparin Sodium,Porcine 5,000 UNIT/ML VIAL 5000 UNIT SUBCUT ×2 (15:11→23:42)
[2023-05-15] MEDS: 0.9 % Sodium Chloride Flush 3 ML SYRINGE IVFLUSH ×2 (15:11→23:44)
[2023-05-15] MEDS: Gabapentin 100 MG CAPSULE PO ×2 (15:11→19:34)
[2023-05-15 15:23] VITALS: BP 116/53; PULSE 78; RESP 20; TEMP 36.9; O2SAT 96
[2023-05-15 16:23] LABS: Glucose, Whole Blood 70 mg/dL (60-115)
--- NOTE | 2023-05-15 16:47 | HO.PM.IMPN ---
Subjective Subjective Date of Service: 05/15/23 Interval History: seen and examined this morning while in dialysis follow up for weakness, confusion patient alert and at baseline reporting ongoing tremors with standing/walking Review of Systems Review of Systems: Yes all other systems are reviewed and are negative Constitutional Constitutional: Denies chills and Denies fever(s) Cardiovascular Cardiovascular: Denies chest pain, Denies palpitations and Denies dyspnea Respiratory Respiratory: Denies cough and Denies dyspnea Gastrointestinal Gastrointestinal: Denies abdominal pain Endocrine Endocrine: Denies palpitations Physical Exam Vital Signs: Vital Signs: Last Vital Signs Temp 98.5 F 05/15/23 15:23 Pulse 78 05/15/23 15:23 Resp 20 05/15/23 15:23 BP 116/53 L 05/15/23 15: Pulse Ox 96 05/15/23 15: O2 Del Method Nasal Cannula 05/15/23 15: O2 Flow Rate 4 05/15/23 15:23 BMI result Body Mass Index 36.9 Const: General: cooperative Nutritional Appearance: obese Orientation/consciousness: patient oriented x3 Resp: Effort & Inspection: normal respiratory effort, able to speak in complete sentences, no respiratory distress and no use of accessory muscles Cardio: Rate: regular rate GI: Inspection: No distended Palpation (GI): Soft to palpation and nontender Neuro: Other: grossly nonfocal General: patient oriented x3 and moves all extremities Extrem: Other: RUE fistula with palpable thrill Objective Data Active Medications Acetaminophen (Acetaminophen 325 Mg Tablet) 650 mg PO Q6H PRN PRN Reason: moderate pain Last Admin: 05/14/23 20:30 Dose: 650 mg Documented By: DINORAH Albuterol Sulfate (Albuterol Sulfate 90 Mcg 8 Gm Inhaler) 2 puff INHALE Q4H PRN PRN Reason: Shortness Of Breath Or Wheezing Aspirin (Aspirin Enteric Coated 81 Mg Tablet.) 81 mg PO DAILY [facility] Last Admin: 05/15/23 11:02 Dose: Not Given Documented By: TANESHA Non-Admin Reason: Off unit: Dialysis Atorvastatin Calcium (Atorvastatin Calcium 20 Mg Tablet) 20 mg PO BEDTIME [facility] Last Admin: 05/14/23 20:31 Dose: 20 mg Documented By: DINORAH Dextrose (Dextrose 50 % 25 Gm/50 Ml Syringe) 25 gm IVPUSH Q15M PRN; Protocol PRN Reason: per Hypoglycemia Standing Ord. Escitalopram Oxalate (Escitalopram Oxalate 10 Mg Tablet) 10 mg PO DAILY [facility] Last Admin: 05/15/23 11:02 Dose: Not Given Documented By: TANESHA Non-Admin Reason: Off unit: Dialysis Famotidine (Famotidine 20 Mg Tablet) 20 mg PO DAILY [facility] Last Admin: 05/15/23 11:02 Dose: Not Given Documented By: TANESHA Non-Admin Reason: Off unit: Dialysis Fluticasone/Umeclidinium/Vilanterol (Fluticasone/Umeclidinium/Vilanterol 100/62.5/25 Blst.W.Dev) 1 puff INHALE DAILY [facility] Last Admin: 05/15/23 08:42 Dose: Not Given Documented By: LEXX Non-Admin Reason: Not In Room Furosemide (Furosemide 40 Mg Tablet) 40 mg PO BID@0900,1800 [facility]; Protocol Last Admin: 05/15/23 11:02 Dose: Not Given Documented By: TANESHA Non-Pedro Reason: Off unit: Dialysis Gabapentin (Gabapentin 100 Mg Capsule) 100 mg PO TID [facility] Last Admin: 05/15/23 15:11 Dose: 100 mg Documented By: TANESHA Glucose (Glucose Gel 15 Gm Gel..Gram.) 15 gm PO Q15M PRN; Protocol PRN Reason: per Hypoglycemia Standing Ord. Heparin Sodium (Porcine) (Heparin Sodium,Porcine 5,000 Unit/Ml Vial) 5,000 unit SUBCUT Q8H [facility] Last Admin: 05/15/23 15:11 Dose: 5,000 unit Documented By: TANESHA Vancomycin HCl 500 mg/ Sodium (Chloride) 110 mls @ 110 mls/hr IV ONCE ONE Stop: 05/14/23 08:29 Insulin Human Lispro (Insulin Lispro 100 Unit/Ml 3 Ml Vial) 0 unit SUBCUT QIDACHS [facility]; Protocol Last Admin: 05/15/23 16:30 Dose: Not Given Documented By: TANESHA Non-Admin Reason: No Insulin Coverage Levothyroxine Sodium (Levothyroxine Sodium 100 Mcg Tablet) 100 mcg PO DAILY@0600 [facility] Last Admin: 05/15/23 05:42 Dose: 100 mcg Documented By: HO.ODRISM Metoprolol Tartrate (Metoprolol Tartrate 12.5 Mg Halftab) 12.5 mg PO BID [facility]; Protocol Last Admin: 05/15/23 11:02 Dose: Not Given Documented By: TANESHA Non-Admin Reason: Off unit: Dialysis Nitroglycerin (Nitroglycerin 0.4 Mg Tab.Subl) 0.4 mg SUBLINGUAL Q5M PRN PRN Reason: chest pain Oxycodone HCl (Oxycodone Hcl Immed Release 5 Mg Tablet) 5 mg PO Q8H PRN PRN Reason: Pain, Severe (Pain Scale 7-10) Last Admin: 05/15/23 16:28 Dose: 5 mg Documented By: TANESHA Pharmacy Consult (Consult Rx Vancomycin Dosing) 1 each MISCELLANE DAILY PRN PRN Reason: Consult order Ranolazine (Ranolazine 500 Mg Tab.Er.12h) 500 mg PO BID [facility] Last Admin: 05/15/23 11:02 Dose: Not Given Documented By: TANESHA Non-Admin Reason: Off unit: Dialysis Sodium Chloride (0.9 % Sodium Chloride Flush 3 Ml Syringe) 3 ml IVFLUSH QSHIFT [facility] Last Admin: 05/15/23 15:11 Dose: 3 ml Documented By: TANESHA Labs 05/14/23 05:18 05/15/23 06:41 Labs: Laboratory Results - last 24 hr 05/14/23 05/14/23 05/15/23 20:16 20:18 06:41 Anion Gap 17 Estim Creat Clear Calc 9.4 Estimated GFR 9 POC Glucose 100 Random Glucose 99 Calcium 7.3 L Random Vancomycin 10.9 L 05/15/23 05/15/23 05/15/23 10:35 11:49 13:08 Anion Gap Estim Creat Clear Calc Estimated GFR POC Glucose 85 194 H Random Glucose Calcium Random Vancomycin 13.1 L 05/15/23 16:18 Anion Gap Estim Creat Clear Calc Estimated GFR POC Glucose 70 Random Glucose Calcium Random Vancomycin Microbiology Microbiology Results: Microbiology 05/13/23 20:11 Blood Culture - Preliminary Blood - Venous No growth after 24 hours. 05/13/23 19:45 Blood Culture - Preliminary Blood - Venous No growth after 24 hours. Assessment and Plan (1) ESRD needing dialysis: Status: Acute Plan This is an 82 year old female with history of NSTEMI, diastolic heart failure, chronic respiratory failure with hypoxia and hypercapnia on 4 L supplemental O2 at baseline, ESRD on dialysis MWF, COPD, interstitial lung disease, hht-dkdklrf-rrrsyndic type 2 diabetes, hyperlipidemia, hypothyroidism, restless leg syndrome who is severely obese with BMI greater than 38 presented with hyperkalemia, ams Acute metabolic encephalopathy due to missed hemodialysis plan for HD today, then resume normal MWF schedule back to baseline mental status leukocytosis likely related to steroid use wbc trending down Tremor pt reports intermittent tremor which has caused her to fall several times including on the day of admission previous PT eval does note generalized jerking movements during assessment no tremor noted on exam at this time seen by neuro - features c/w chronic neuropathy, recommend further workup/EMG studies as outpatient PT eval rec home with 02/02 care - pt now agreeable for rehab Acute hyperkalemia resolved with lokelma Recent MSSA bacteremia repeat blood cultures negative to date continue Vancomycin post hemodialysis Chronic hypoxic and hypercapnic respiratory failure on 4 L due to COPD/ild with recent acute decompensation Completed prednisone kwc-zawrvoy-zewuhravp type 2 diabetes continue diabetic diet, SSI, POCs CAD Continue aspirin, statin, Ranexa Hypothyroid Synthroid Chronic diastolic CHF Still makes urine, continue Lasix Severe obesity with BMI 36 weight loss encouraged DVT prophylaxis with heparin subQ DNR/DNI attending - dr. العلي Requires ongoing inpatient stay due to need for safe disposition Quality Stroke Does the patient have a stroke diagnosis?: No VTE Prior VTE?: No VTE Risk Level:: Medical - moderate - high VTE Device Contraindication: Treatment Not Indicated VTE Drug Contraindication: N/A - Med Ordered
[2023-05-15] MEDS: Furosemide 40 MG TABLET PO (18:35)
[2023-05-15 19:22] VITALS: BP 123/61; PULSE 83; RESP 17; TEMP 36.4; O2SAT 93
[2023-05-15] MEDS: Metoprolol Tartrate 12.5 MG HALFTAB PO (19:34)
[2023-05-15] MEDS: Atorvastatin Calcium 20 MG TABLET PO (19:34)
[2023-05-15] MEDS: Ranolazine 500 MG TAB.ER.12H PO (19:34)
[2023-05-15 20:05] LABS: Glucose, Whole Blood 87 mg/dL (60-115)
--- NOTE | 2023-05-15 22:05 | PC.NURSE ---
pt lost her IV at the start of the shift while PLATE SLITTER AND INSPECTOR help her in repositioning in bed. offered to insert a new IV. PT refused. she was telling that prior IV insertion, they gave her some numbing medication. notified.
[2023-05-16 01:29] LABS: Glucose, Whole Blood 123 mg/dL (60-115)
[2023-05-16 03:15] VITALS: BP 135/59; PULSE 60; RESP 16; TEMP 36.2; O2SAT 98
[2023-05-16] MEDS: Levothyroxine Sodium 100 MCG TABLET PO (06:28)
[2023-05-16 06:45] LABS: Creatinine Clr Calc Pharmacy 11.3; Estimated Glomerular Filt Rate 11
[2023-05-16 07:04] VITALS: BP 129/57; PULSE 71; RESP 18; TEMP 35.9; O2SAT 100
[2023-05-16 07:13] LABS: Glucose, Whole Blood 94 mg/dL (60-115)
[2023-05-16] MEDS: Famotidine 20 MG TABLET PO (08:15)
[2023-05-16] MEDS: Metoprolol Tartrate 12.5 MG HALFTAB PO ×2 (08:15→20:33)
[2023-05-16] MEDS: Furosemide 40 MG TABLET PO ×2 (08:15→16:50)
[2023-05-16] MEDS: Ranolazine 500 MG TAB.ER.12H PO ×2 (08:15→20:32)
[2023-05-16] MEDS: Aspirin Enteric Coated 81 MG TABLET.DR PO (08:15)
[2023-05-16] MEDS: Gabapentin 100 MG CAPSULE PO ×3 (08:15→20:33)
[2023-05-16] MEDS: Heparin Sodium,Porcine 5,000 UNIT/ML VIAL 5000 UNIT SUBCUT ×2 (08:16→16:52)
[2023-05-16] MEDS: Escitalopram Oxalate 10 MG TABLET PO (08:16)
--- NOTE | 2023-05-16 09:13 | PM.PNNEP ---
Subjective Subjective Date of Service: 05/16/23 Interval history: dialyzed yesterday VSS Physical Exam Vital Signs: Vital Signs: Last Vital Signs Temp 96.6 F L 05/16/23 07:04 Pulse 71 05/16/23 07:04 Resp 18 05/16/23 07:04 BP 129/57 L 05/16/23 07:04 Pulse Ox 100 05/16/23 07:04 O2 Del Method Nasal Cannula 05/16/23 07:04 O2 Flow Rate 4 05/16/23 07:04 BMI result Body Mass Index 36.9 Const: General: alert Resp: Effort & Inspection: normal respiratory effort, able to speak in complete sentences and not labored GI: Inspection: No distended Palpation (GI): Soft to palpation, not firm, nontender, no guarding and not rigid Extrem: Other: Moving all extremities well without any obvious deformities Objective Data Labs 05/14/23 05:18 05/16/23 06:21 Labs: Laboratory Results - last 24 hr 05/15/23 05/15/23 05/15/23 10:35 11:49 13:08 Hold Purple Top Creatinine Estim Creat Clear Calc Estimated GFR POC Glucose 85 194 H Random Vancomycin 13.1 L 05/15/23 05/15/23 05/16/23 16:18 20:01 01:25 Hold Purple Top Creatinine Estim Creat Clear Calc Estimated GFR POC Glucose 70 87 123 H Random Vancomycin 05/16/23 05/16/23 06:21 07:08 Hold Purple Top SEE NOTE Creatinine 3.89 H Estim Creat Clear Calc 11.3 Estimated GFR 11 POC Glucose 94 Random Vancomycin Microbiology Microbiology Results: Microbiology 05/13/23 20:11 Blood - Venous Blood Culture - Preliminary No growth after 48 hours. 05/13/23 19:45 Blood - Venous Blood Culture - Preliminary No growth after 48 hours. Procedures Date of Service Date of Service: 05/16/23 Assessment & Plan Assessment and plan (1) Encephalopathy: Status: Acute Assessment and Plan: 82-year-old female with past medical history of ESRD, HTN, T2DM, Hyperuricemia, hypothyroidism, and COPD/Bronchitis who presents with AMS due to missed HD. The pt had her RUE AVF placed Thursday12/24/22 at [facility]. Dialyzes at [facility] Plan: - HD continued on MWF schedule - protect RUE AVF - No need for ESAs right now Time Spent With Patient Time: Total time managing care of this patient today ____ minutes. Progress Note: Quality Stroke Does the patient have a stroke diagnosis?: No
[2023-05-16] MEDS: polyethylene glycoL 3350 17 GM POWD.PACK PO (10:08)
[2023-05-16 10:56] LABS: Glucose, Whole Blood 135 mg/dL (60-115)
[2023-05-16 15:30] VITALS: BP 122/58; PULSE 66; RESP 18; TEMP 35.9; O2SAT 100
--- NOTE | 2023-05-16 15:39 | P.PNIM_ITS ---
Subjective Subjective Date of Service: 05/16/23 Interval History: seen and examined this morning follow up for falls; encephalopathy resolved constipated, no abdominal pain no respiratory symptoms Review of Systems Review of Systems: Yes all other systems are reviewed and are negative Constitutional Constitutional: Denies chills and Denies fever(s) Physical Exam 2 Vital Signs: Vital Signs: Last Vital Signs Temp 96.7 F L 05/16/23 15:30 Pulse 66 05/16/23 15:30 Resp 18 05/16/23 15:30 BP 122/58 L 05/16/23 15:30 Pulse Ox 100 05/16/23 15:30 O2 Del Method Nasal Cannula 05/16/23 15:30 O2 Flow Rate 4 05/16/23 15:30 BMI result Body Mass Index 36.9 Const: General: cooperative, comfortable, no acute distress, alert and awake Nutritional Appearance: obese Orientation/consciousness: patient oriented x3 Resp: Other: dry crackles b/l Effort & Inspection: normal respiratory effort, able to speak in complete sentences, no respiratory distress and no use of accessory muscles Cardio: Rate: regular rate Heart sounds: Murmur heart sound present GI: Inspection: No distended Palpation (GI): Soft to palpation and nontender Neuro: Other: grossly nonfocal General: patient oriented x3 and moves all extremities Extrem: Other: RUE fistula with palpable thrill Objective Data Active Medications Acetaminophen (Acetaminophen 325 Mg Tablet) 650 mg PO Q6H PRN PRN Reason: moderate pain Last Admin: 05/14/23 20:30 Dose: 650 mg Documented By: DINORAH Albuterol Sulfate (Albuterol Sulfate 90 Mcg 8 Gm Inhaler) 2 puff INHALE Q4H PRN PRN Reason: Shortness Of Breath Or Wheezing Aspirin (Aspirin Enteric Coated 81 Mg Tablet.) 81 mg PO DAILY [facility] Last Admin: 05/16/23 08:15 Dose: 81 mg Documented By: AMEENA Atorvastatin Calcium (Atorvastatin Calcium 20 Mg Tablet) 20 mg PO BEDTIME [facility] Last Admin: 05/15/23 19:34 Dose: 20 mg Documented By: JOSE Dextrose (Dextrose 50 % 25 Gm/50 Ml Syringe) 25 gm IVPUSH Q15M PRN; Protocol PRN Reason: per Hypoglycemia Standing Ord. Docusate Sodium (Docusate Sodium 100 Mg Capsule) 100 mg PO BEDTIME [facility] Escitalopram Oxalate (Escitalopram Oxalate 10 Mg Tablet) 10 mg PO DAILY [facility] Last Admin: 05/16/23 08:16 Dose: 10 mg Documented By: AMEENA Famotidine (Famotidine 20 Mg Tablet) 20 mg PO DAILY [facility] Last Admin: 05/16/23 08:15 Dose: 20 mg Documented By: AMEENA Fluticasone/Umeclidinium/Vilanterol (Fluticasone/Umeclidinium/Vilanterol 100/62.5/25 Blst.W.Dev) 1 puff INHALE DAILY [facility] Last Admin: 05/16/23 07:51 Dose: Not Given Documented By: ODILIA Non-Admin Reason: Med Not Available Furosemide (Furosemide 40 Mg Tablet) 40 mg PO BID@0900,1800 [facility]; Protocol Last Admin: 05/16/23 08:15 Dose: 40 mg Documented By: AMEENA Gabapentin (Gabapentin 100 Mg Capsule) 100 mg PO TID [facility] Last Admin: 05/16/23 14:31 Dose: 100 mg Documented By: AMEENA Glucose (Glucose Gel 15 Gm Gel..Gram.) 15 gm PO Q15M PRN; Protocol PRN Reason: per Hypoglycemia Standing Ord. Heparin Sodium (Porcine) (Heparin Sodium,Porcine 5,000 Unit/Ml Vial) 5,000 unit SUBCUT Q8H [facility] Last Admin: 05/16/23 08:16 Dose: 5,000 unit Documented By: AMEENA Vancomycin HCl 500 mg/ Sodium (Chloride) 110 mls @ 110 mls/hr IV ONCE ONE Stop: 05/14/23 08:29 Insulin Human Lispro (Insulin Lispro 100 Unit/Ml 3 Ml Vial) 0 unit SUBCUT QIDACHS [facility]; Protocol Last Admin: 05/16/23 11:18 Dose: Not Given Documented By: AMEENA Non-Admin Reason: No Insulin Coverage Levothyroxine Sodium (Levothyroxine Sodium 100 Mcg Tablet) 100 mcg PO DAILY@0600 [facility] Last Admin: 05/16/23 06:28 Dose: 100 mcg Documented By: LOLLY Melatonin (Melatonin 3 Mg Tablet) 6 mg PO BEDTIME PRN PRN Reason: Insomnia Metoprolol Tartrate (Metoprolol Tartrate 12.5 Mg Halftab) 12.5 mg PO BID [facility]; Protocol Last Admin: 05/16/23 08:15 Dose: 12.5 mg Documented By: AMEENA Nitroglycerin (Nitroglycerin 0.4 Mg Tab.Subl) 0.4 mg SUBLINGUAL Q5M PRN PRN Reason: chest pain Pharmacy Consult (Consult Rx Vancomycin Dosing) 1 each MISCELLANE DAILY PRN PRN Reason: Consult order Polyethylene Glycol (Polyethylene Glycol 3350 17 Gm Powd.Pack) 17 gm PO DAILY [facility] Last Admin: 05/16/23 10:08 Dose: 17 gm Documented By: AMEENA Ranolazine (Ranolazine 500 Mg Tab.Er.12h) 500 mg PO BID [facility] Last Admin: 05/16/23 08:15 Dose: 500 mg Documented By: AMEENA Sodium Chloride (0.9 % Sodium Chloride Flush 3 Ml Syringe) 3 ml IVFLUSH QSHIFT [facility] Last Admin: 05/16/23 08:17 Dose: Not Given Documented By: AMEENA Non-Admin Reason: No Access Labs 05/14/23 05:18 05/16/23 06:21 Labs: Laboratory Results - last 24 hr 05/15/23 05/15/23 05/16/23 16:18 20:01 01:25 Hold Purple Top Estim Creat Clear Calc Estimated GFR POC Glucose 70 87 123 H 05/16/23 05/16/23 05/16/23 06:21 07:08 10:51 Hold Purple Top SEE NOTE Estim Creat Clear Calc 11.3 Estimated GFR 11 POC Glucose 94 135 H Microbiology Microbiology Results: Microbiology 05/13/23 20:11 Blood Culture - Preliminary Blood - Venous No growth after 48 hours. 05/13/23 19:45 Blood Culture - Preliminary Blood - Venous No growth after 48 hours. Assessment and Plan (1) ESRD needing dialysis: Status: Acute Plan This is an 82 year old female with history of NSTEMI, diastolic heart failure, chronic respiratory failure with hypoxia and hypercapnia on 4 L supplemental O2 at baseline, ESRD on dialysis MWF, COPD, interstitial lung disease, [id number] type 2 diabetes, hyperlipidemia, hypothyroidism, restless leg syndrome who is severely obese with BMI greater than 38 presented with hyperkalemia, ams Acute metabolic encephalopathy due to missed hemodialysis s/p HD, now back on MWF schedule back to baseline mental status leukocytosis likely related to steroid use wbc trending down Tremor pt reports intermittent tremor which has caused her to fall several times including on the day of admission previous PT eval does note generalized jerking movements during assessment seen by neuro - features c/w chronic neuropathy, recommend further workup/EMG studies as outpatient PT eval rec home with 02/02 care as she was previously not agreeable to rehab - pt now agreeable for rehab Acute hyperkalemia resolved with lokelma Recent MSSA bacteremia repeat blood cultures negative to date continue Vancomycin post hemodialysis Chronic hypoxic and hypercapnic respiratory failure on 4 L due to COPD/ild with recent acute decompensation Completed prednisone [id number] type 2 diabetes continue diabetic diet, SSI, POCs CAD Continue aspirin, statin, Ranexa Hypothyroid Synthroid Chronic diastolic CHF Still makes urine, continue Lasix Severe obesity with BMI 36 weight loss encouraged DVT prophylaxis with heparin subQ DNR/DNI attending - dr. jaramillo Requires ongoing inpatient stay due to need for safe disposition, awaiting insurance authorization for [facility] Quality Stroke Does the patient have a stroke diagnosis?: No VTE Prior VTE?: No VTE Risk Level:: Medical - moderate - high VTE Device Contraindication: Treatment Not Indicated VTE Drug Contraindication: N/A - Med Ordered
[2023-05-16 15:57] LABS: Glucose, Whole Blood 100 mg/dL (60-115)
[2023-05-16 19:07] VITALS: BP 111/53; PULSE 68; RESP 17; TEMP 36.2; O2SAT 99
[2023-05-16 20:13] LABS: Glucose, Whole Blood 211 mg/dL (60-115)
[2023-05-16] MEDS: Insulin Lispro 100 UNIT/ML 3 ML VIAL SUBCUT (20:28)
[2023-05-16] MEDS: Atorvastatin Calcium 20 MG TABLET PO (20:32)
[2023-05-16 20:33] VITALS: BP 111/53; PULSE 67
[2023-05-16] MEDS: Docusate Sodium 100 MG CAPSULE PO (20:33)
[2023-05-17] MEDS: Heparin Sodium,Porcine 5,000 UNIT/ML VIAL 5000 UNIT SUBCUT ×4 (00:01→23:50)
[2023-05-17] MEDS: 0.9 % Sodium Chloride Flush 3 ML SYRINGE IVFLUSH ×2 (00:06→20:10)
[2023-05-17 03:12] VITALS: BP 101/50; PULSE 67; RESP 18; TEMP 36.3; O2SAT 98
[2023-05-17] MEDS: Acetaminophen 325 MG TABLET 650 MG PO (03:45)
[2023-05-17 05:48] LABS: Creatinine Clr Calc Pharmacy 8.1; Estimated Glomerular Filt Rate 7
[2023-05-17] MEDS: Levothyroxine Sodium 100 MCG TABLET PO (06:08)
[2023-05-17 07:20] LABS: Glucose, Whole Blood 108 mg/dL (60-115)
[2023-05-17 07:48] VITALS: BP 128/61; PULSE 68; RESP 12; TEMP 36.2; O2SAT 96
[2023-05-17 08:12] LABS: Anion Gap 21 (12-20); Blood Urea Nitrogen 49 mg/dL (9-16); Calcium 7.2 mg/dL (8.4-10.2); Carbon Dioxide 22 mmol/L (22-29); Chloride 94 mmol/L (96-108); Glucose Random 108 mg/dL (60-115); Potassium 4.7 mmol/L (3.3-5.1); Sodium 132 mmol/L (135-145)
--- NOTE | 2023-05-17 08:28 | P.PNNP_ITS ---
Subjective Subjective Date of Service: 05/17/23 Interval history: no events VSS K 4's Physical Exam 2 Vital Signs: Vital Signs: Last Vital Signs Temp 97.1 F 05/17/23 07:48 Pulse 68 05/17/23 07:48 Resp 12 05/17/23 07:48 BP 128/61 05/17/23 07:48 Pulse Ox 96 05/17/23 07:48 O2 Del Method Nasal Cannula 05/17/23 07:48 O2 Flow Rate 4 05/17/23 07:48 BMI result Body Mass Index 36.9 Const: General: alert Resp: Effort & Inspection: normal respiratory effort, able to speak in complete sentences and not labored GI: Inspection: No distended Palpation (GI): Soft to palpation, not firm, nontender, no guarding and not rigid Extrem: Other: Moving all extremities well without any obvious deformities Objective Data Labs 05/14/23 05:18 05/17/23 05:08 Labs: Laboratory Results - last 24 hr 05/16/23 05/16/23 05/16/23 10:51 15:53 20:08 Hold Purple Top Sodium Potassium Chloride Carbon Dioxide Anion Gap BUN Creatinine Estim Creat Clear Calc Estimated GFR POC Glucose 135 H 100 211 H Random Glucose Calcium 05/17/23 05/17/23 05:08 07:12 Hold Purple Top SEE NOTE Sodium 132 L Potassium 4.7 D Chloride 94 L Carbon Dioxide 22 Anion Gap 21 H BUN 49 H Creatinine 5.44 H* Estim Creat Clear Calc 8.1 Estimated GFR 7 POC Glucose 108 Random Glucose 108 Calcium 7.2 L Microbiology Microbiology Results: Microbiology 05/13/23 20:11 Blood - Venous Blood Culture - Preliminary No growth after 48 hours. 05/13/23 19:45 Blood - Venous Blood Culture - Preliminary No growth after 48 hours. Procedures Date of Service Date of Service: 05/17/23 Assessment & Plan Assessment and plan (1) Encephalopathy: Status: Acute Assessment and Plan: 82-year-old female with past medical history of ESRD, HTN, T2DM, Hyperuricemia, hypothyroidism, and COPD/Bronchitis who presents with AMS due to missed HD. The pt had her RUE AVF placed Thursday12/24/22 at [facility]. Dialyzes at [facility] Plan: - HD continued on MWF schedule - protect RUE AVF - c/w PO lasix as pt makes urine - c/w metoprolol BP is perfect - No need for ESAs right now Time Spent With Patient Time: Total time managing care of this patient today ____ minutes. Progress Note: Quality Stroke Does the patient have a stroke diagnosis?: No
--- NOTE | 2023-05-17 08:31 | MHC.CM.PN ---
PT IS MEDICALLY READY TO DC TO STR REFERRALS ARE OUT HOWEVER THERE ARE NO BED OFFERS AT THIS TIME PT REQUIRES HD, [facility] DOES NOT ACCEPT INSURANCE AND [facility] PT ALSO HAS [facility] INSURANCE, SO AUTH WOULD NOT BE AVAILABLE OVER THE WEEKEND
[2023-05-17] MEDS: Ranolazine 500 MG TAB.ER.12H PO ×2 (08:36→20:09)
[2023-05-17] MEDS: Aspirin Enteric Coated 81 MG TABLET.DR PO (08:36)
[2023-05-17] MEDS: Metoprolol Tartrate 12.5 MG HALFTAB PO ×2 (08:36→20:08)
[2023-05-17] MEDS: Gabapentin 100 MG CAPSULE PO ×3 (08:36→20:10)
[2023-05-17] MEDS: Escitalopram Oxalate 10 MG TABLET PO (08:36)
[2023-05-17] MEDS: Famotidine 20 MG TABLET PO (08:36)
[2023-05-17] MEDS: Furosemide 40 MG TABLET PO ×2 (08:36→17:23)
[2023-05-17] MEDS: polyethylene glycoL 3350 17 GM POWD.PACK PO (09:23)
--- NOTE | 2023-05-17 10:53 | P.PNIM_ITS ---
Subjective Subjective Date of Service: 05/17/23 Interval History: seen and examined this morning follow up for fall, difficulty ambulating, encephalopathy - encephalopathy resolved no overnight events reporting that her food goes up and down a few times before she's able to swallow cough improving, no sob Review of Systems Review of Systems: Yes all other systems are reviewed and are negative Constitutional Constitutional: Denies chills and Denies fever(s) Cardiovascular Cardiovascular: Denies chest pain and Denies palpitations Gastrointestinal Gastrointestinal: Denies abdominal pain Endocrine Endocrine: Denies palpitations Physical Exam 2 Vital Signs: Vital Signs: Last Vital Signs Temp 97.1 F 05/17/23 07:48 Pulse 68 05/17/23 07:48 Resp 12 05/17/23 07:48 BP 128/61 05/17/23 07:48 Pulse Ox 96 05/17/23 07:48 O2 Del Method Nasal Cannula 05/17/23 07:48 O2 Flow Rate 4 05/17/23 07:48 BMI result Body Mass Index 36.9 Const: General: cooperative, comfortable, no acute distress, alert and awake Nutritional Appearance: obese Orientation/consciousness: patient oriented x3 Resp: Other: dry crackles b/l Effort & Inspection: normal respiratory effort, able to speak in complete sentences, no respiratory distress and no use of accessory muscles Cardio: Rate: regular rate Heart sounds: Murmur heart sound present GI: Inspection: No distended Palpation (GI): Soft to palpation and nontender Neuro: Other: grossly nonfocal General: patient oriented x3 and moves all extremities Extrem: Other: RUE fistula with palpable thrill General: Yes no pedal edema Objective Data Active Medications Acetaminophen (Acetaminophen 325 Mg Tablet) 650 mg PO Q6H PRN PRN Reason: moderate pain Last Admin: 05/17/23 03:45 Dose: 650 mg Documented By: LOLLY Albuterol Sulfate (Albuterol Sulfate 90 Mcg 8 Gm Inhaler) 2 puff INHALE Q4H PRN PRN Reason: Shortness Of Breath Or Wheezing Aspirin (Aspirin Enteric Coated 81 Mg Tablet.) 81 mg PO DAILY [facility] Last Admin: 05/17/23 08:36 Dose: 81 mg Documented By: SWATHI Atorvastatin Calcium (Atorvastatin Calcium 20 Mg Tablet) 20 mg PO BEDTIME [facility] Last Admin: 05/16/23 20:32 Dose: 20 mg Documented By: NESSA Dextrose (Dextrose 50 % 25 Gm/50 Ml Syringe) 25 gm IVPUSH Q15M PRN; Protocol PRN Reason: per Hypoglycemia Standing Ord. Docusate Sodium (Docusate Sodium 100 Mg Capsule) 100 mg PO BEDTIME [facility] Last Admin: 05/16/23 20:33 Dose: 100 mg Documented By: NESSA Escitalopram Oxalate (Escitalopram Oxalate 10 Mg Tablet) 10 mg PO DAILY [facility] Last Admin: 05/17/23 08:36 Dose: 10 mg Documented By: SWATHI Famotidine (Famotidine 20 Mg Tablet) 20 mg PO DAILY [facility] Last Admin: 05/17/23 08:36 Dose: 20 mg Documented By: SWATHI Fluticasone/Umeclidinium/Vilanterol (Fluticasone/Umeclidinium/Vilanterol 100/62.5/25 Blst.W.Dev) 1 puff INHALE DAILY [facility] Last Admin: 05/17/23 08:18 Dose: Not Given Documented By: LEXX Non-Admin Reason: Patient Refused Furosemide (Furosemide 40 Mg Tablet) 40 mg PO BID@0900,1800 [facility]; Protocol Last Admin: 05/17/23 08:36 Dose: 40 mg Documented By: SWATHI Gabapentin (Gabapentin 100 Mg Capsule) 100 mg PO TID [facility] Last Admin: 05/17/23 08:36 Dose: 100 mg Documented By: SWATHI Glucose (Glucose Gel 15 Gm Gel..Gram.) 15 gm PO Q15M PRN; Protocol PRN Reason: per Hypoglycemia Standing Ord. Guaifenesin (Guaifenesin La 600 Mg Tab.Er.12h) 600 mg PO BID PRN PRN Reason: Cough Heparin Sodium (Porcine) (Heparin Sodium,Porcine 5,000 Unit/Ml Vial) 5,000 unit SUBCUT Q8H [facility] Last Admin: 05/17/23 09:23 Dose: 5,000 unit Documented By: SWATHI Vancomycin HCl 500 mg/ Sodium (Chloride) 110 mls @ 110 mls/hr IV ONCE ONE Stop: 05/14/23 08:29 Insulin Human Lispro (Insulin Lispro 100 Unit/Ml 3 Ml Vial) 0 unit SUBCUT QIDACHS [facility]; Protocol Last Admin: 05/17/23 08:31 Dose: Not Given Documented By: HO.LARHO Non-Admin Reason: No Insulin Coverage Levothyroxine Sodium (Levothyroxine Sodium 100 Mcg Tablet) 100 mcg PO DAILY@0600 [facility] Last Admin: 05/17/23 06:08 Dose: 100 mcg Documented By: LOLLY Melatonin (Melatonin 3 Mg Tablet) 6 mg PO BEDTIME PRN PRN Reason: Insomnia Metoprolol Tartrate (Metoprolol Tartrate 12.5 Mg Halftab) 12.5 mg PO BID [facility]; Protocol Last Admin: 05/17/23 08:36 Dose: 12.5 mg Documented By: SWATHI Nitroglycerin (Nitroglycerin 0.4 Mg Tab.Subl) 0.4 mg SUBLINGUAL Q5M PRN PRN Reason: chest pain Pharmacy Consult (Consult Rx Vancomycin Dosing) 1 each MISCELLANE DAILY PRN PRN Reason: Consult order Polyethylene Glycol (Polyethylene Glycol 3350 17 Gm Powd.Pack) 17 gm PO DAILY [facility] Last Admin: 05/17/23 09:23 Dose: 17 gm Documented By: SWATHI Ranolazine (Ranolazine 500 Mg Tab.Er.12h) 500 mg PO BID [facility] Last Admin: 05/17/23 08:36 Dose: 500 mg Documented By: SWATHI Sodium Chloride (0.9 % Sodium Chloride Flush 3 Ml Syringe) 3 ml IVFLUSH QSHIFT [facility] Last Admin: 05/17/23 08:42 Dose: Not Given Documented By: SWATHI Non-Admin Reason: No Access Labs 05/14/23 05:18 05/17/23 05:08 Labs: Laboratory Results - last 24 hr 05/16/23 05/16/23 05/17/23 15:53 20:08 05:08 Hold Purple Top SEE NOTE Anion Gap 21 H Estim Creat Clear Calc 8.1 Estimated GFR 7 POC Glucose 100 211 H Random Glucose 108 Calcium 7.2 L 05/17/23 07:12 Hold Purple Top Anion Gap Estim Creat Clear Calc Estimated GFR POC Glucose 108 Random Glucose Calcium Assessment and Plan (1) Bacteremia: Status: Acute Plan This is an 82 year old female with history of NSTEMI, diastolic heart failure, chronic respiratory failure with hypoxia and hypercapnia on 4 L supplemental O2 at baseline, ESRD on dialysis MWF, COPD, interstitial lung disease, rew-izkkdjb-ordzjatxs type 2 diabetes, hyperlipidemia, hypothyroidism, restless leg syndrome who is severely obese with BMI greater than 38 presented with hyperkalemia, ams Acute metabolic encephalopathy due to missed hemodialysis s/p HD, now back on MWF schedule back to baseline mental status dysphagia speech eval aspiration precautions leukocytosis likely related to steroid use wbc trending down Tremor pt reports intermittent tremor which has caused her to fall several times including on the day of admission previous PT eval does note generalized jerking movements during assessment seen by neuro - features c/w chronic neuropathy, recommend further workup/EMG studies as outpatient PT eval rec home with 02/02 care as she was previously not agreeable to rehab - pt now agreeable for rehab Acute hyperkalemia resolved with lokelma Recent MSSA bacteremia repeat blood cultures negative to date continue Vancomycin post hemodialysis Chronic hypoxic and hypercapnic respiratory failure on 4 L due to COPD/ild with recent acute decompensation Completed prednisone yzo-ujisnnw-mitoaolvq type 2 diabetes continue diabetic diet, SSI, POCs CAD Continue aspirin, statin, Ranexa Hypothyroid Synthroid Chronic diastolic CHF Still makes urine, continue Lasix Severe obesity with BMI 36 weight loss encouraged DVT prophylaxis with heparin subQ DNR/DNI attending - dr. jaramillo Requires ongoing inpatient stay due to need for safe disposition, awaiting insurance authorization for [facility] Quality Stroke Does the patient have a stroke diagnosis?: No VTE Prior VTE?: No VTE Risk Level:: Medical - moderate - high VTE Device Contraindication: Treatment Not Indicated VTE Drug Contraindication: N/A - Med Ordered
[2023-05-17 11:15] LABS: Glucose, Whole Blood 104 mg/dL (60-115)
[2023-05-17 15:46] VITALS: BP 103/50; PULSE 61; RESP 19; TEMP 36.2; O2SAT 96
[2023-05-17 16:41] LABS: Glucose, Whole Blood 81 mg/dL (60-115)
[2023-05-17 19:33] VITALS: BP 115/55; PULSE 66; RESP 19; TEMP 36.1; O2SAT 100
[2023-05-17 20:03] LABS: Glucose, Whole Blood 94 mg/dL (60-115)
[2023-05-17] MEDS: Docusate Sodium 100 MG CAPSULE PO (20:09)
[2023-05-17] MEDS: Atorvastatin Calcium 20 MG TABLET PO (20:09)
[2023-05-18 03:03] VITALS: BP 104/47; PULSE 67; RESP 17; TEMP 36.4; O2SAT 100
--- NOTE | 2023-05-18 05:15 | PC.NURSE ---
Patient having trouble with thin liquids. Did not hear wet cough but patient almost spit water out, she describes it as going down and coming right back up>
[2023-05-18] MEDS: Levothyroxine Sodium 100 MCG TABLET PO (05:23)
[2023-05-18 06:26] LABS: Anion Gap 22 (12-20); Blood Urea Nitrogen 55 mg/dL (9-16); Calcium 7.4 mg/dL (8.4-10.2); Carbon Dioxide 24 mmol/L (22-29); Chloride 93 mmol/L (96-108); Creatinine Clr Calc Pharmacy 6.8; Estimated Glomerular Filt Rate 6; Glucose Random 84 mg/dL (60-115); Potassium 5.6 mmol/L (3.3-5.1); Sodium 133 mmol/L (135-145)
[2023-05-18 07:18] LABS: Glucose, Whole Blood 94 mg/dL (60-115)
[2023-05-18 07:21] VITALS: BP 125/59; PULSE 70; RESP 20; TEMP 36.6; O2SAT 95
[2023-05-18] MEDS: Furosemide 40 MG TABLET PO ×2 (08:08→17:41)
[2023-05-18] MEDS: Aspirin Enteric Coated 81 MG TABLET.DR PO (08:08)
[2023-05-18] MEDS: Escitalopram Oxalate 10 MG TABLET PO (08:08)
[2023-05-18] MEDS: Gabapentin 100 MG CAPSULE PO ×3 (08:08→20:41)
[2023-05-18] MEDS: Metoprolol Tartrate 12.5 MG HALFTAB PO ×2 (08:08→20:41)
[2023-05-18] MEDS: Heparin Sodium,Porcine 5,000 UNIT/ML VIAL 5000 UNIT SUBCUT ×3 (08:08→22:45)
[2023-05-18] MEDS: Ranolazine 500 MG TAB.ER.12H PO ×2 (08:08→21:00)
[2023-05-18] MEDS: Famotidine 20 MG TABLET PO (08:08)
--- NOTE | 2023-05-18 12:08 | MHC.SLORD ---
Speech Language Pathology Order Status: CISCO ENGINEER attempted to see pt this A.M. for BDE- Pt away at dialysis. CISCO ENGINEER will return later this afternoon.
--- NOTE | 2023-05-18 12:22 | PM.PNNEP ---
Subjective Subjective Date of Service: 05/18/23 Interval history: Seen adn examined, events noted Physical Exam Vital Signs: Vital Signs: Last Vital Signs Temp 97.9 F 05/18/23 07:21 Pulse 70 05/18/23 07:21 Resp 20 05/18/23 07:21 BP 125/59 L 05/18/23 07:21 Pulse Ox 95 05/18/23 07:21 O2 Del Method Oxymask 05/18/23 07:21 O2 Flow Rate 4 05/18/23 07:21 BMI result Body Mass Index 36.9 Const: General: comfortable, no acute distress, alert and awake Nutritional Appearance: well nourished HEENT: Head: Yes normocephalic and Yes atraumatic Eyes: Eyelids: Yes eyelids normal Conjunctivae: conjunctivae normal Sclerae: sclerae normal Corneas: corneas normal Pupils: Equal, round and reactive pupils present EOM: EOMs intact bilaterally Neck: Neck: Yes full ROM Resp: Effort & Inspection: normal respiratory effort, able to speak in complete sentences and not labored GI: Inspection: No distended Palpation (GI): Soft to palpation, not firm, nontender, no guarding and not rigid Skin: General skin exam: elasticity normal Neuro: Other: [employer] strength bilaterally is 4-5 Strength to bilateral upper extremities is 4-5 to major muscle groups. Strength to lower extremities bilaterally is 2/5 with flexion Cranial nerves: Yes CN's II-XII intact bilaterally, Yes Equal, round and reactive pupils present and Yes Bilaterally intact EOM present Cognition (Neuro): normal cognition Speech: Abnormal speech present slurred (Patient's speech is mostly clear but occasionally will have slurred words); Negative for stuttering or complete aphasia Motor exam (neuro): strength not 5/5 throughout Extrem: Other: Moving all extremities well without any obvious deformities Objective Data Labs 05/14/23 05:18 05/18/23 05:31 Labs: Laboratory Results - last 24 hr 05/17/23 05/17/23 05/18/23 16:30 19:56 05:31 Hold Purple Top SEE NOTE Sodium 133 L Potassium 5.6 H Chloride 93 L Carbon Dioxide 24 Anion Gap 22 H BUN 55 H Creatinine 6.48 H* Estim Creat Clear Calc 6.8 Estimated GFR 6 POC Glucose 81 94 Random Glucose 84 Calcium 7.4 L 05/18/23 07:10 Hold Purple Top Sodium Potassium Chloride Carbon Dioxide Anion Gap BUN Creatinine Estim Creat Clear Calc Estimated GFR POC Glucose 94 Random Glucose Calcium Microbiology Microbiology Results: Microbiology 05/13/23 20:11 Blood - Venous Blood Culture - Preliminary No growth after 48 hours. 05/13/23 19:45 Blood - Venous Blood Culture - Preliminary No growth after 48 hours. Procedures Date of Service Date of Service: 05/18/23 Assessment & Plan Assessment and plan (1) Encephalopathy: Status: Acute Assessment and Plan: 82-year-old female with past medical history of ESRD, HTN, T2DM, Hyperuricemia, hypothyroidism, and COPD/Bronchitis who presents with AMS due to missed HD. The pt had her RUE AVF placed 12/24/22 at [facility]. Dialyzes at [facility] C/O swallowing probs--getting Speech eval today Unsafe to go home-- looking for Rehab placement ( [facility]) REC - HD continued on MWF schedule - protect RUE AVF - c/w PO lasix as pt makes urine - c/w metoprolol BP - No need for ESAs right now - Speech eval -software configuration manager to see about [facility] and bernard about HD spot at [facility] Time Spent With Patient Time: Total time managing care of this patient today ____ minutes. Progress Note: Quality Stroke Does the patient have a stroke diagnosis?: No
--- NOTE | 2023-05-18 12:23 | MHC.CM.PN ---
per rounds pt is ready for dc when bed is located at facility
--- NOTE | 2023-05-18 14:39 | P.PNIM_ITS ---
Subjective Subjective Date of Service: 05/18/23 Interval History: seen and examined this morning reporting that her food goes up and down a few times before she's able to swallow cough improving, no sob Review of Systems Review of Systems: Yes all other systems are reviewed and are negative Constitutional Constitutional: Denies chills and Denies fever(s) Cardiovascular Cardiovascular: Denies chest pain and Denies palpitations Gastrointestinal Gastrointestinal: Denies abdominal pain Endocrine Endocrine: Denies palpitations Physical Exam 2 Vital Signs: Vital Signs: Last Vital Signs Temp 97.9 F 05/18/23 07:21 Pulse 70 05/18/23 07:21 Resp 20 05/18/23 07:21 BP 125/59 L 05/18/23 07:21 Pulse Ox 95 05/18/23 07:21 O2 Del Method Oxymask 05/18/23 07:21 O2 Flow Rate 4 05/18/23 07:21 BMI result Body Mass Index 36.9 Appearing in no acute distress lung sounds are clear to auscultation heart regular rate rhythm, clear S1, S2 positive bowel sounds, abdomen is soft, nontender neuro patient is alert x3, no focal deficits Objective Data Active Medications Acetaminophen (Acetaminophen 325 Mg Tablet) 650 mg PO Q6H PRN PRN Reason: moderate pain Last Admin: 05/17/23 03:45 Dose: 650 mg Documented By: LOLLY Albuterol Sulfate (Albuterol Sulfate 90 Mcg 8 Gm Inhaler) 2 puff INHALE Q4H PRN PRN Reason: Shortness Of Breath Or Wheezing Aspirin (Aspirin Enteric Coated 81 Mg Tablet.) 81 mg PO DAILY [facility] Last Admin: 05/18/23 08:08 Dose: 81 mg Documented By: LEANNA Atorvastatin Calcium (Atorvastatin Calcium 20 Mg Tablet) 20 mg PO BEDTIME [facility] Last Admin: 05/17/23 20:09 Dose: 20 mg Documented By: KWABENA Dextrose (Dextrose 50 % 25 Gm/50 Ml Syringe) 25 gm IVPUSH Q15M PRN; Protocol PRN Reason: per Hypoglycemia Standing Ord. Docusate Sodium (Docusate Sodium 100 Mg Capsule) 100 mg PO BEDTIME [facility] Last Admin: 05/17/23 20:09 Dose: 100 mg Documented By: KWABENA Escitalopram Oxalate (Escitalopram Oxalate 10 Mg Tablet) 10 mg PO DAILY [facility] Last Admin: 05/18/23 08:08 Dose: 10 mg Documented By: LEANNA Famotidine (Famotidine 20 Mg Tablet) 20 mg PO DAILY [facility] Last Admin: 05/18/23 08:08 Dose: 20 mg Documented By: LEANNA Fluticasone/Umeclidinium/Vilanterol (Fluticasone/Umeclidinium/Vilanterol 100/62.5/25 Blst.W.Dev) 1 puff INHALE DAILY [facility] Last Admin: 05/18/23 07:29 Dose: Not Given Documented By: ALEX Non-Admin Reason: Patient Refused Furosemide (Furosemide 40 Mg Tablet) 40 mg PO BID@0900,1800 [facility]; Protocol Last Admin: 05/18/23 08:08 Dose: 40 mg Documented By: LEANNA Gabapentin (Gabapentin 100 Mg Capsule) 100 mg PO TID [facility] Last Admin: 05/18/23 08:08 Dose: 100 mg Documented By: LEANNA Glucose (Glucose Gel 15 Gm Gel..Gram.) 15 gm PO Q15M PRN; Protocol PRN Reason: per Hypoglycemia Standing Ord. Guaifenesin (Guaifenesin La 600 Mg Tab.Er.12h) 600 mg PO BID PRN PRN Reason: Cough Heparin Sodium (Porcine) (Heparin Sodium,Porcine 5,000 Unit/Ml Vial) 5,000 unit SUBCUT Q8H [facility] Last Admin: 05/18/23 08:08 Dose: 5,000 unit Documented By: LEANNA Vancomycin HCl 500 mg/ Sodium (Chloride) 110 mls @ 110 mls/hr IV ONCE ONE Stop: 05/14/23 08:29 Insulin Human Lispro (Insulin Lispro 100 Unit/Ml 3 Ml Vial) 0 unit SUBCUT QIDACHS [facility]; Protocol Last Admin: 05/18/23 13:05 Dose: Not Given Documented By: LEANNA Non-Admin Reason: Off unit: Dialysis Levothyroxine Sodium (Levothyroxine Sodium 100 Mcg Tablet) 100 mcg PO DAILY@0600 [facility] Last Admin: 05/18/23 05:23 Dose: 100 mcg Documented By: JONATHON Melatonin (Melatonin 3 Mg Tablet) 6 mg PO BEDTIME PRN PRN Reason: Insomnia Metoprolol Tartrate (Metoprolol Tartrate 12.5 Mg Halftab) 12.5 mg PO BID [facility]; Protocol Last Admin: 05/18/23 08:08 Dose: 12.5 mg Documented By: LEANNA Nitroglycerin (Nitroglycerin 0.4 Mg Tab.Subl) 0.4 mg SUBLINGUAL Q5M PRN PRN Reason: chest pain Pharmacy Consult (Consult Rx Vancomycin Dosing) 1 each MISCELLANE DAILY PRN PRN Reason: Consult order Polyethylene Glycol (Polyethylene Glycol 3350 17 Gm Powd.Pack) 17 gm PO DAILY [facility] Last Admin: 05/18/23 09:00 Dose: Not Given Documented By: LEANNA Non-Admin Reason: Off unit: Dialysis Ranolazine (Ranolazine 500 Mg Tab.Er.12h) 500 mg PO BID [facility] Last Admin: 05/18/23 08:08 Dose: 500 mg Documented By: LEANNA Sodium Chloride (0.9 % Sodium Chloride Flush 3 Ml Syringe) 3 ml IVFLUSH QSHIFT [facility] Last Admin: 05/18/23 09:00 Dose: Not Given Documented By: LEANNA Non-Admin Reason: Previously Administered Labs 05/14/23 05:18 05/18/23 05:31 Labs: Laboratory Results - last 24 hr 05/17/23 05/17/23 05/18/23 16:30 19:56 05:31 Hold Purple Top SEE NOTE Anion Gap 22 H Estim Creat Clear Calc 6.8 Estimated GFR 6 POC Glucose 81 94 Random Glucose 84 Calcium 7.4 L 05/18/23 07:10 Hold Purple Top Anion Gap Estim Creat Clear Calc Estimated GFR POC Glucose 94 Random Glucose Calcium Assessment and Plan (1) Bacteremia: Status: Acute Plan This is an 82 year old female with history of NSTEMI, diastolic heart failure, chronic respiratory failure with hypoxia and hypercapnia on 4 L supplemental O2 at baseline, ESRD on dialysis MWF, COPD, interstitial lung disease, [id number] type 2 diabetes, hyperlipidemia, hypothyroidism, restless leg syndrome who is severely obese with BMI greater than 38 presented with hyperkalemia, ams Acute metabolic encephalopathy due to missed hemodialysis. Resolved s/p HD, MWF schedule back to baseline mental status dysphagia speech eval pending aspiration precautions leukocytosis likely related to steroid use wbc trending down Tremor pt reports intermittent tremor which has caused her to fall several times including on the day of admission previous PT eval does note generalized jerking movements during assessment seen by neuro - features c/w chronic neuropathy, recommend further workup/EMG studies as outpatient PT eval rec home with 02/02 care as she was previously not agreeable to rehab - pt now agreeable for rehab Acute hyperkalemia resolved with lokelma Recent MSSA bacteremia repeat blood cultures negative to date continue Vancomycin post hemodialysis Chronic hypoxic and hypercapnic respiratory failure on 4 L due to COPD/ild with recent acute decompensation Completed prednisone [id number] type 2 diabetes continue diabetic diet, SSI, POCs CAD Continue aspirin, statin, Ranexa Hypothyroid Synthroid Chronic diastolic CHF Still makes urine, continue Lasix Severe obesity with BMI 36 weight loss encouraged DVT prophylaxis with heparin subQ DNR/DNI attending - dr. Lauren Requires ongoing inpatient stay due to need for safe disposition, awaiting insurance authorization for [facility] Quality Stroke Does the patient have a stroke diagnosis?: No VTE Prior VTE?: No VTE Risk Level:: Medical - moderate - high VTE Device Contraindication: Treatment Not Indicated VTE Drug Contraindication: N/A - Med Ordered
[2023-05-18 15:07] LABS: Vancomycin Random 11.6 mcg/mL (15-20)
[2023-05-18 15:28] VITALS: BP 122/50; PULSE 83; RESP 18; TEMP 36.7; O2SAT 92
--- NOTE | 2023-05-18 16:08 | MHC.SL.SWA ---
Speech Pathologist Impression: Risk of aspiration, oropharyngeal dysphagia, pharyngoesophageal dysphagia Risk of Aspiration Due to: Medically Fragile Dysphasia Diet Status: DOWNGRADE to NDD1 Liquid Consistency and Strategies for Safe Swallow: Liquid Intake Recommendation: Thin Liquid Intake Strategies: Small Sips No Straws Liquids by Teaspoon Only Solid Food Consistency: Dietary Recommendations: Pureed (NDD1) Additional Modifications to Solid Foods: Pt seen for bedside dysphagia evaluation. Pt tolerated solids relatively well, demonstrating mildly prolonged mastication secondary to her limited dentition, she was able to clear oral residue with dry swallows. Although CARE MANAGER recommended for a ground diet, pt requested a downgrade to purees as she is fearful of choking on more solid food. Pt w/ audible swallow, gagging and coughing on thickened liquids. Pt also belching throughout trials, complaining of things going down and then coming back up or bubbling, and feeling like she will regurgitate food/liquid. Some of pt's symptoms are consistent with a potential esophageal etiology, therefore pt is recommended a G.I. consult. Recommend START on PUREED diet and THIN liquids via TEASPOON only, pills CRUSHED in PUREE. Pt to be provided with 1:1 supervision at minimum, with close monitoring and aspiration precautions. Given pt's complaints of chronic dysphagia, pt is also recommended MBSS (inpatient vs. outpatient) to rule in/out an aspiration component. Oral Medication Intake: Crushed with Puree Please contact the pharmacy regarding appropriate crushable or liquid drug formulations that are available whenever modified delivery is recommended. Compensatory Strategies and Precautions to be Taken for Safe Swallow: Sitting Upright (90 deg) Double Swallow No Straw Liquids from Spoon Small Bites and Sips Rate of Ingestion Change Avoid Specific Foods Supervision While Eating and Drinking for Safe Swallow: Total Supervision (1:1) Foods to Avoid: Mixed textures Swallowing Recommended Treatments: Compens. Strategy Educat. Recommendation for Speech: Inpatient Speech Therapy Modified Barium Swallow Study - Inpatient Modified Barium Swallow Study - Outpatient Comment: Pt reporting chronic dysphagia at least > 1 year. Frequency/Duration: Date Range for Service Req: Timeline to reassess: Senior Architectural Designer Clinican/Clinical Fellow: No Supervisory Statement: I have reviewed and agree with the student/clinical fellow's documentation: N/A Speech Language Pathologist: Aida Fu M.A., CCC-CARE MANAGER
[2023-05-18 16:28] LABS: Glucose, Whole Blood 127 mg/dL (60-115)
[2023-05-18 19:51] VITALS: BP 112/55; PULSE 79; RESP 17; TEMP 37.3; O2SAT 95
[2023-05-18 20:02] LABS: Glucose, Whole Blood 105 mg/dL (60-115)
[2023-05-18] MEDS: 0.9 % Sodium Chloride Flush 3 ML SYRINGE IVFLUSH (20:41)
[2023-05-18] MEDS: Docusate Sodium 100 MG CAPSULE PO (20:41)
[2023-05-18] MEDS: Atorvastatin Calcium 20 MG TABLET PO (20:41)
[2023-05-19 04:00] VITALS: BP 129/59; PULSE 77; RESP 16; TEMP 36.4; O2SAT 96
[2023-05-19] MEDS: Levothyroxine Sodium 100 MCG TABLET PO (05:52)
[2023-05-19 06:01] LABS: Creatinine Clr Calc Pharmacy 10.1; Estimated Glomerular Filt Rate 10
[2023-05-19 07:38] LABS: Glucose, Whole Blood 106 mg/dL (60-115)
[2023-05-19 07:52] VITALS: BP 138/63; PULSE 75; RESP 18; TEMP 36.7; O2SAT 97
[2023-05-19] MEDS: Aspirin Enteric Coated 81 MG TABLET.DR PO (08:07)
[2023-05-19] MEDS: Furosemide 40 MG TABLET PO ×2 (08:07→17:30)
[2023-05-19] MEDS: Famotidine 20 MG TABLET PO (08:07)
[2023-05-19] MEDS: Metoprolol Tartrate 12.5 MG HALFTAB PO ×2 (08:07→20:58)
[2023-05-19] MEDS: Escitalopram Oxalate 10 MG TABLET PO (08:07)
[2023-05-19] MEDS: Gabapentin 100 MG CAPSULE PO ×3 (08:07→20:58)
[2023-05-19] MEDS: Ranolazine 500 MG TAB.ER.12H PO ×2 (08:07→20:58)
[2023-05-19] MEDS: Heparin Sodium,Porcine 5,000 UNIT/ML VIAL 5000 UNIT SUBCUT ×2 (08:07→15:29)
[2023-05-19 08:36] LABS: Anion Gap 16 (12-20); Blood Urea Nitrogen 33 mg/dL (9-16); Calcium 7.9 mg/dL (8.4-10.2); Carbon Dioxide 27 mmol/L (22-29); Chloride 98 mmol/L (96-108); Creatinine Clr Calc Pharmacy 9.9; Estimated Glomerular Filt Rate 9; Glucose Random 106 mg/dL (60-115); Potassium 4.3 mmol/L (3.3-5.1); Sodium 137 mmol/L (135-145)
[2023-05-19 09:42] VITALS: BP 138/63; PULSE 75; O2SAT 97
--- NOTE | 2023-05-19 11:30 | MHC.CM.PN ---
Addendum entered by Tamia Shrestha 05/19/23 12:52: Spoke with provider. Patient has a GI consult ordered for today. Discharge is anticipated Thursday after HD or . If GI work up not complete. Thursday resume HD. Chairtime is 11am patient will transport via [facility] transport. Monica was given confirmation of DP Thursday am HD. Transport is booked. Original Note: Called [facility] HD center. Spoke with RENTAL CAR PORTER Monica Cohn. Explained that patient will require BLS transport to HD moving forward. She contacted [facility] transportation . The patient is eligible for transport to and from HD via [facility]. She is also covered for appointments. Transport must be booked 3 days in advance. DP discharge patient after HD tomorrow. Patient will transport via [facility] home. Monica will set up transport to HD for Thursday05/22/23. The patient has had a MBS today.
[2023-05-19 11:37] LABS: Glucose, Whole Blood 193 mg/dL (60-115)
[2023-05-19] MEDS: Insulin Lispro 100 UNIT/ML 3 ML VIAL SUBCUT (12:22)
--- NOTE | 2023-05-19 12:43 | MHC.SLORD ---
Speech Language Pathology Order Status: MBSS complete, significant for post-laryngeal reflux on Thin Liquids > Solids resulting in penetration without observed penetration. Pt will benefit from GI workup, and further diagnostic procedures (Esophagram v EGD) to better assess. Recommending upgrade of Solids to Ground/Mech Altered (NDD3) with Thin Liquids. PLAYGROUND OFFICIAL will continue to follow. Please see full MBSS report for further details.
--- NOTE | 2023-05-19 13:21 | MHC.SL.IMP ---
Date of Plan of Treatment: 05/18/23 Onset of Symptoms/Illness: 05/18/23 Date Treatment Started: 05/18/23 Admitting Diagnosis: Medical History (HFpEF) heart failure with preserved ejection fraction ESRD needing dialysis NSTEMI (non-ST elevated myocardial infarction) Cough Respiratory failure with hypoxia Interstitial lung disease Depression, major, recurrent Dyslipidemia Osteoarthritis of multiple joints Acquired hypothyroidism Heart murmur Fibromyalgia Diabetes Family History Brother Substance use disorder Son Substance use disorder Daughter Substance use disorder Surgical History Hx of tonsillectomy S/P appendectomy Hx of fusion of cervical spine S/P anal fissurectomy H/O hemorrhoidectomy S/P partial hysterectomy Primary Speech & Language Diagnosis: R13.14 Pharyngoesophageal Phase Dysphagia Secondary Speech & Language Diagnosis: R13.14 Pharyngoesophageal Phase Dysphagia Reason for Today's Visit: [id number] Modified Barium Swallow Study Comments: Pre-evaluation Dietary Consistencies: Grnd/Mech Altered (NDD2) Pre-evaluation Liquid Consistency: Thin Pre-evaluation Medication Administration: Medical History: Comments: Pt is an 82 year old female presenting with hyperkalemia and AMS. Pt was dx w/ acute metabolic encephalopathy d/t missed hemodialysis; is s/p HD, back to baseline mental status. HARBOR DEPARTMENT MANAGER was consulted after RN observed pt having trouble swallowing thin liquid. Pt did not cough, but almost spit water out and described it as going down and coming right back up. Pt's history is significant for COPD, interstitial lung disease, chronic respiratory failure with hypoxia and hypercapnia on 4L supplemental O2 at baseline. [facility] Fall Risk Assessment Score: Oral Motor Exam Facial Symmetry: Symmetrical Facial Movement: Controlled Oral-Facial Facial Miscellaneous Observations: Mouth Occlusion: Normal Oral-Facial Teeth Characteristics: Partially Missing Oral-Facial Teeth Miscellaneous Observation: Oral-Facial Lip Pucker Description: Normal Oral-Facial Smile (Lips) Description: Normal Oral-Facial Puff Cheeks Description: Reduced Strength Oral-Facial Lip Miscellaneous Comment: Tongue Size: Normal Tongue Frenum Length: Tongue Excursion Description: Normal Tongue Range of Movement Description: Normal Tongue Speed of Movement Description: Normal Tongue Strength of Movement (against opposing pressure): Normal Tongue Movement Characteristics: Normal/Absent Tongue Movement Miscellaneous Observation: Oral Expression Ability: Mild Impairment Is patient able to manage secretions?: No Is patient able to produce volitional cough?: N/A Food and Liquid Trials: Oral Impairment: Lip Closure: 0=No labial escape Oral Impairment: Tongue Control During Bolus Hold: 0=Cohesive bolus between tongue to palatal seal Oral Impairment: Bolus Preparation/Mastication: 1=Slow prolonged chewing/mashing with complete re-collection Oral Impairment: Bolus Transport/Lingual Motion: 1= Delayed initiation of tongue motion Oral Impairment: Oral Residue: 1=Trace residue lining oral structures Oral Impairment:Initiation of Pharyngeal Swallow: 0=Bolus head at posterior angle of ramus (first hyoid excursion) Pharyngeal Impairment: Soft Palate Elevation: 0=No bolus between soft palate (SP)/pharyngeal wall (PW) Pharyngeal Impairment: Laryngeal Elevation: 0=Complete superior movement of thyroid cartilage (see description) Pharyngeal Impairment: Anterior Hyoid Excursion: 0=Complete anterior movement Pharyngeal Impairment: Epiglottic Movement: 0=Complete inversion Pharyngeal Impairment: Laryngeal Vestibular Closure:: 1=Incomplete: narrow column air/contrast in laryngeal vestibule Pharyngeal Impairment: Pharyngeal Stripping Wave: 0=Present: complete Pharyngeal Impairment: Pharyngeal Contraction: Did not test Pharyngeal Impairment: Pharyngoesophageal Segment Opening: Pharyngeal Impairment: Tongue Base (TB) Retraction: 1=Trace column of contrast/air between TB and posterior PW Pharyngeal Impairment: Pharyngeal Residue: 2=Collection of residue within or on pharyngeal structures Pharyngeal Impairment: Esophageal Clearance Upright Position: Did not test Impressions and Recommendations Clinical Observations: Pt was provided Thin Liquids, Puree Solids and Regular Solids coated with Barium Contrast. Results were notable for post-laryngeal reflux of Thin Liquids after the swallow. The contrast was contained in the pyriform sinuses, however did lead to penetration on subsequent swallows that was spontaneously cleared. Remarkably, laryngeal reflux was contained below the UES with Solids, Puree and Regular with dysmotility still noted. Also of note is the presence of air pockets intermixed with thin liquid contrast within the pharynx suggestive of insufficient UES closure and possible esophageal dysmotility. Liquid Intake Recommendation: Thin Liquid Intake Strategies: Small Sips Dietary Recommendations: Grnd/Mech Altered (NDD2) Medication Administration: Whole with Puree Please contact the pharmacy regarding appropriate crushable or liquid drug formulations that are available whenever modified delivery is recommended. Compensatory Strategies Recommended: Sitting Upright (90 deg) Small Bites and Sips Alternate Liquids/Solids Rate of Ingestion Change Supervision during eating and or drinking: Intermittent Supervision Recommended Treatments: Compens. Strategy Educat. Recommendation for Speech Therapy: Inpatient Speech Therapy Text Comment: Recommending upgrade to Ground/Mech Solids (NDD2) and maintain Thin Liquids. Recommend the Pt try to swallow twice with every sip and alternate solids after liquids to promote oral clearance. Recommend Pt follow up with GI to further assess distal esophageal stricture v dysmotility. Frequency/Duration: Date Range for Service Requested: Timeline to reassess: PRN Laboratory Specialist Clinician/Clinical Fellow: No Supervisory Statement: N/A Speech Language Pathologist: Jermaine Guzman M.A., CCC-HARBOR DEPARTMENT MANAGER
--- NOTE | 2023-05-19 13:34 | HO.PM.IMPN ---
Subjective Subjective Date of Service: 05/19/23 Interval History: seen and examined this morning reporting that her food goes up and down a few times before she's able to swallow cough improving, no sob Review of Systems Review of Systems: Yes all other systems are reviewed and are negative Constitutional Constitutional: Denies chills and Denies fever(s) Cardiovascular Cardiovascular: Denies chest pain and Denies palpitations Gastrointestinal Gastrointestinal: Denies abdominal pain Endocrine Endocrine: Denies palpitations Physical Exam Vital Signs: Vital Signs: Last Vital Signs Temp 98.1 F 05/19/23 07:52 Pulse 75 05/19/23 09:42 Resp 18 05/19/23 07:52 BP 138/63 05/19/23 09:42 Pulse Ox 97 05/19/23 09:42 O2 Del Method Oxymask 05/19/23 07:52 O2 Flow Rate 4 05/19/23 07:52 BMI result Body Mass Index 36.9 Appearing in no acute distress lung sounds are clear to auscultation heart regular rate rhythm, clear S1, S2 positive bowel sounds, abdomen is soft, nontender neuro patient is alert x3, no focal deficits Objective Data Active Medications Acetaminophen (Acetaminophen 325 Mg Tablet) 650 mg PO Q6H PRN PRN Reason: moderate pain Last Admin: 05/17/23 03:45 Dose: 650 mg Documented By: LOLLY Albuterol Sulfate (Albuterol Sulfate 90 Mcg 8 Gm Inhaler) 2 puff INHALE Q4H PRN PRN Reason: Shortness Of Breath Or Wheezing Aspirin (Aspirin Enteric Coated 81 Mg Tablet.) 81 mg PO DAILY [facility] Last Admin: 05/19/23 08:07 Dose: 81 mg Documented By: LEANNA Atorvastatin Calcium (Atorvastatin Calcium 20 Mg Tablet) 20 mg PO BEDTIME [facility] Last Admin: 05/18/23 20:41 Dose: 20 mg Documented By: KWABENA Dextrose (Dextrose 50 % 25 Gm/50 Ml Syringe) 25 gm IVPUSH Q15M PRN; Protocol PRN Reason: per Hypoglycemia Standing Ord. Docusate Sodium (Docusate Sodium 100 Mg Capsule) 100 mg PO BEDTIME [facility] Last Admin: 05/18/23 20:41 Dose: 100 mg Documented By: KWABENA Escitalopram Oxalate (Escitalopram Oxalate 10 Mg Tablet) 10 mg PO DAILY [facility] Last Admin: 05/19/23 08:07 Dose: 10 mg Documented By: LEANNA Famotidine (Famotidine 20 Mg Tablet) 20 mg PO DAILY [facility] Last Admin: 05/19/23 08:07 Dose: 20 mg Documented By: LEANNA Fluticasone/Umeclidinium/Vilanterol (Fluticasone/Umeclidinium/Vilanterol 100/62.5/25 Blst.W.Dev) 1 puff INHALE DAILY [facility] Last Admin: 05/19/23 07:53 Dose: Not Given Documented By: ALEX Non-Admin Reason: Patient Refused Furosemide (Furosemide 40 Mg Tablet) 40 mg PO BID@0900,1800 [facility]; Protocol Last Admin: 05/19/23 08:07 Dose: 40 mg Documented By: LEANNA Gabapentin (Gabapentin 100 Mg Capsule) 100 mg PO TID [facility] Last Admin: 05/19/23 08:07 Dose: 100 mg Documented By: LEANNA Glucose (Glucose Gel 15 Gm Gel..Gram.) 15 gm PO Q15M PRN; Protocol PRN Reason: per Hypoglycemia Standing Ord. Guaifenesin (Guaifenesin La 600 Mg Tab.Er.12h) 600 mg PO BID PRN PRN Reason: Cough Heparin Sodium (Porcine) (Heparin Sodium,Porcine 5,000 Unit/Ml Vial) 5,000 unit SUBCUT Q8H [facility] Last Admin: 05/19/23 08:07 Dose: 5,000 unit Documented By: LEANNA Vancomycin HCl 500 mg/ Sodium (Chloride) 110 mls @ 110 mls/hr IV ONCE ONE Stop: 05/14/23 08:29 Insulin Human Lispro (Insulin Lispro 100 Unit/Ml 3 Ml Vial) 0 unit SUBCUT QIDACHS [facility]; Protocol Last Admin: 05/19/23 12:22 Dose: 2 unit Documented By: LEANNA Levothyroxine Sodium (Levothyroxine Sodium 100 Mcg Tablet) 100 mcg PO DAILY@0600 [facility] Last Admin: 05/19/23 05:52 Dose: 100 mcg Documented By: KWABENA Melatonin (Melatonin 3 Mg Tablet) 6 mg PO BEDTIME PRN PRN Reason: Insomnia Metoprolol Tartrate (Metoprolol Tartrate 12.5 Mg Halftab) 12.5 mg PO BID [facility]; Protocol Last Admin: 05/19/23 08:07 Dose: 12.5 mg Documented By: LEANNA Nitroglycerin (Nitroglycerin 0.4 Mg Tab.Subl) 0.4 mg SUBLINGUAL Q5M PRN PRN Reason: chest pain Pharmacy Consult (Consult Rx Vancomycin Dosing) 1 each MISCELLANE DAILY PRN PRN Reason: Consult order Polyethylene Glycol (Polyethylene Glycol 3350 17 Gm Powd.Pack) 17 gm PO DAILY [facility] Last Admin: 05/19/23 08:08 Dose: Not Given Documented By: LEANNA Non-Admin Reason: pt having soft BMs Ranolazine (Ranolazine 500 Mg Tab.Er.12h) 500 mg PO BID [facility] Last Admin: 05/19/23 08:07 Dose: 500 mg Documented By: LEANNA Sodium Chloride (0.9 % Sodium Chloride Flush 3 Ml Syringe) 3 ml IVFLUSH QSHIFT [facility] Last Admin: 05/19/23 08:08 Dose: Not Given Documented By: LEANNA Non-Admin Reason: No Access Labs 05/14/23 05:18 05/19/23 07:59 Labs: Laboratory Results - last 24 hr 05/18/23 05/18/23 05/18/23 14:38 16:25 19:56 Hold Purple Top Anion Gap Estim Creat Clear Calc Estimated GFR POC Glucose 127 H 105 Random Glucose Calcium Random Vancomycin 11.6 L 05/19/23 05/19/23 05/19/23 05:08 07:25 07:59 Hold Purple Top SEE NOTE Anion Gap 16 Estim Creat Clear Calc 10.1 9.9 Estimated GFR 10 9 POC Glucose 106 Random Glucose 106 Calcium 7.9 L D Random Vancomycin 05/19/23 11:33 Hold Purple Top Anion Gap Estim Creat Clear Calc Estimated GFR POC Glucose 193 H Random Glucose Calcium Random Vancomycin Microbiology Microbiology Results: Microbiology 05/13/23 20:11 Blood Culture - Final Blood - Venous No growth after 5 days. 05/13/23 19:45 Blood Culture - Final Blood - Venous No growth after 5 days. Assessment and Plan (1) Bacteremia: Status: Acute Plan This is an 82 year old female with history of NSTEMI, diastolic heart failure, chronic respiratory failure with hypoxia and hypercapnia on 4 L supplemental O2 at baseline, ESRD on dialysis MWF, COPD, interstitial lung disease, [id number] type 2 diabetes, hyperlipidemia, hypothyroidism, restless leg syndrome who is severely obese with BMI greater than 38 presented with hyperkalemia, ams Acute metabolic encephalopathy due to missed hemodialysis. Resolved s/p HD, MWF schedule back to baseline mental status Dysphagia speech eval>s/p MBS, rec ground mech solids and thin liquids aspiration precautions GI consult pending leukocytosis likely related to steroid use wbc trending down Tremor pt reports intermittent tremor which has caused her to fall several times including on the day of admission previous PT eval does note generalized jerking movements during assessment seen by neuro - features c/w chronic neuropathy, recommend further workup/EMG studies as outpatient PT eval rec home with 02/02 care as she was previously not agreeable to rehab - pt now agreeable for rehab Acute hyperkalemia resolved with lokelma Recent MSSA bacteremia repeat blood cultures negative to date continue Vancomycin post hemodialysis Chronic hypoxic and hypercapnic respiratory failure on 4 L due to COPD/ild with recent acute decompensation Completed prednisone [id number] type 2 diabetes continue diabetic diet, SSI, POCs CAD Continue aspirin, statin, Ranexa Hypothyroid Synthroid Chronic diastolic CHF Still makes urine, continue Lasix Severe obesity with BMI 36 weight loss encouraged DVT prophylaxis with heparin subQ DNR/DNI attending - dr. Lauren Requires ongoing inpatient stay due to need for safe disposition, awaiting insurance authorization for SNF Quality Stroke Does the patient have a stroke diagnosis?: No VTE Prior VTE?: No VTE Risk Level:: Medical - moderate - high VTE Device Contraindication: Treatment Not Indicated VTE Drug Contraindication: N/A - Med Ordered
--- NOTE | 2023-05-19 14:12 | PM.EVENT ---
Event Note Date of Service: 05/19/23 Event Note: GI consult dictated Speech and MBS results reviewed. Dysphagia likely due in part to underlying esophageal dysmotility. Barium swallow ordered. Underlying cardiopulmonary status would make EGD high risk. Continue famotidine to treat any component of GERD. Time Spent With Patient Time: Total time managing care of this patient today ____ minutes.
[2023-05-19 16:00] VITALS: BP 110/59; PULSE 69; RESP 18; TEMP 36.1; O2SAT 100
[2023-05-19 16:00] LABS: Glucose, Whole Blood 68 mg/dL (60-115)
[2023-05-19 16:56] LABS: Glucose, Whole Blood 96 mg/dL (60-115)
--- NOTE | 2023-05-19 18:42 | P.PNNP_ITS ---
Subjective Subjective Date of Service: 05/19/23 Interval history: Seen and examined, events noted Physical Exam 2 Vital Signs: Vital Signs: Last Vital Signs Temp 96.9 F 05/19/23 16:00 Pulse 69 05/19/23 16:00 Resp 18 05/19/23 16:00 BP 110/59 L 05/19/23 16:00 Pulse Ox 100 05/19/23 16:00 O2 Del Method Oxymask 05/19/23 16:00 O2 Flow Rate 4 05/19/23 16:00 BMI result Body Mass Index 36.9 Const: General: comfortable, no acute distress, alert and awake Nutritional Appearance: well nourished HEENT: Head: Yes normocephalic and Yes atraumatic Eyes: Eyelids: Yes eyelids normal Conjunctivae: conjunctivae normal S clerae: sclerae normal Corneas: corneas normal Pupils: Equal, round and reactive pupils present EOM: EOMs intact bilaterally Neck: Neck: Yes full ROM Resp: Effort & Inspection: normal respiratory effort, able to speak in complete sentences and not labored GI: Inspection: No distended Palpation (GI): Soft to palpation, not firm, nontender, no guarding and not rigid Skin: General skin exam: elasticity normal Neuro: Other: Hip Hop Performers strength bilaterally is 4-5 Strength to bilateral upper extremities is 4-5 to major muscle groups. Strength to lower extremities bilaterally is 2/5 with flexion Cranial nerves: Yes CN's II-XII intact bilaterally, Yes Equal, round and reactive pupils present and Yes Bilaterally intact EOM present Cognition (Neuro): normal cognition Speech: Abnormal speech present slurred (Patient's speech is mostly clear but occasionally will have slurred words); Negative for stuttering or complete aphasia Motor exam (neuro): strength not 5/5 throughout Extrem: Other: Moving all extremities well without any obvious deformities Objective Data Labs 05/14/23 05:18 05/19/23 07:59 Labs: Laboratory Results - last 24 hr 05/18/23 05/19/23 05/19/23 19:56 05:08 07:25 Hold Purple Top SEE NOTE Sodium Potassium Chloride Carbon Dioxide Anion Gap BUN Creatinine 4.33 H* Estim Creat Clear Calc 10.1 Estimated GFR 10 POC Glucose 105 106 Random Glucose Calcium 05/19/23 05/19/23 05/19/23 07:59 11:33 15:57 Hold Purple Top Sodium 137 Potassium 4.3 D Chloride 98 Carbon Dioxide 27 Anion Gap 16 BUN 33 H Creatinine 4.46 H* Estim Creat Clear Calc 9.9 Estimated GFR 9 POC Glucose 193 H 68 Random Glucose 106 Calcium 7.9 L D 05/19/23 16:53 Hold Purple Top Sodium Potassium Chloride Carbon Dioxide Anion Gap BUN Creatinine Estim Creat Clear Calc Estimated GFR POC Glucose 96 Random Glucose Calcium Microbiology Microbiology Results: Microbiology 05/13/23 20:11 Blood - Venous Blood Culture - Final No growth after 5 days. 05/13/23 19:45 Blood - Venous Blood Culture - Final No growth after 5 days. Procedures Date of Service Date of Service: 05/19/23 Assessment & Plan Assessment and plan (1) Encephalopathy: Status: Acute Assessment and Plan: 82-year-old female with past medical history of ESRD, HTN, T2DM, Hyperuricemia, hypothyroidism, and COPD/Bronchitis who presents with AMS due to missed HD. The pt had her RUE AVF placed 12/24/22 at [facility] [place]. 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 Progress Note: Quality Stroke Does the patient have a stroke diagnosis?: No
--- NOTE | 2023-05-19 19:03 | CONS_ITS ---
DATE OF SERVICE: 05/19/2023 REFERRING PHYSICIAN: Ary Moreno NP REASON FOR CONSULTATION: Dysphagia. HISTORY OF PRESENT ILLNESS: The patient is pleasant 82-year-old woman, who was admitted to the hospital on 05/13 with altered mental status and encephalopathy. Consultation is requested regarding the patient's dysphagia. She describes a sensation of food moving up and down in her esophagus when she swallows. Symptoms have been present for several months and have not been progressive. She denies underlying reflux symptoms or progressive dysphagia. She has lost some weight, but attributes that to being in the hospital. She has been seen in consultation by speech therapy and underwent a modified barium swallow, which was reviewed. She was placed on a ground/mechanical diet, which she has been able to swallow without difficulty. Possible esophageal dysmotility was observed on the modified barium swallow. PAST MEDICAL HISTORY: 1. Coronary artery disease with history of GA and congestive heart failure with preserved ejection fraction. 2. End-stage renal disease, on dialysis. 3. COPD with chronic bronchitis and respiratory failure. 4. Interstitial lung disease. 5. Depression. 6. Cough. 7. Hyperlipidemia. 8. Osteoarthritis. 9. Hypothyroidism. 10. Heart murmur. 11. Fibromyalgia. 12. Diabetes. CURRENT MEDICATIONS: Current medication list is reviewed in the chart. She is on famotidine. ALLERGIES: NSAIDS AND STATINS. FAMILY HISTORY: This is reviewed with the patient and is negative for GI malignancy. SOCIAL HISTORY: There is no current tobacco, alcohol, or substance abuse. REVIEW OF SYSTEMS: SKIN: No pruritus. HEENT: Negative. Cardiopulmonary: She denies shortness of breath or chest pain. Gastrointestinal: As above. Genitourinary: Negative. Neuropsychiatric: Negative. PHYSICAL EXAMINATION: Shows a pleasant female, lying in a chair. VITAL SIGNS: Reviewed in the electronic medical record and are stable. SKIN: Anicteric. HEENT: Shows no scleral icterus. NECK: Without lymphadenopathy or thyromegaly. LUNGS: Clear. HEART: Shows regular rate and rhythm. S1, S2. No murmur. ABDOMEN: Soft. No focal masses or tenderness. Bowel sounds are present. No organomegaly is noted. EXTREMITIES: Without edema. LABORATORY DATA: Including CBC, chemistries and imaging studies are reviewed. IMPRESSION: Dysphagia. Her dysphagia symptoms appear consistent with probable underlying esophageal dysmotility. I would recommend a formal barium swallow to further define this and to rule out a distal esophageal stricture. I would not suggest endoscopy at this time given her underlying comorbid conditions and pulmonary status. I agree with treating her with acid suppressive therapy. Thanks for asking me to see her. I will follow her in the hospital with you. MD RADHIKA Templeton/FLETCHER / [phone]
[2023-05-19 19:44] VITALS: BP 115/52; PULSE 70; RESP 17; TEMP 36.6; O2SAT 100
[2023-05-19 20:48] LABS: Glucose, Whole Blood 132 mg/dL (60-115)
[2023-05-19] MEDS: Atorvastatin Calcium 20 MG TABLET PO (20:58)
[2023-05-19] MEDS: Docusate Sodium 100 MG CAPSULE PO (20:58)
[2023-05-20] MEDS: Heparin Sodium,Porcine 5,000 UNIT/ML VIAL 5000 UNIT SUBCUT ×3 (00:31→21:26)
[2023-05-20 03:53] VITALS: BP 112/53; PULSE 70; RESP 16; TEMP 36.2; O2SAT 98
[2023-05-20 06:58] LABS: Creatinine Clr Calc Pharmacy 7.5; Estimated Glomerular Filt Rate 7
[2023-05-20 08:37] LABS: Glucose, Whole Blood 94 mg/dL (60-115)
--- NOTE | 2023-05-20 10:32 | MHC.SLORD ---
Speech Language Pathology Order Status: Per RN, pt had FL Barium Swallow this AM. Currently at dialysis. [facility] solids (NDD2), thin liquids, pills whole w/ puree based on 05/19 MBSS w/ TERMITE CONTROL SERVICER. Per RN, pt to d/c today; [employer] SERVIC[employer] d/c summary updated w/ MBSS recommendations.
--- NOTE | 2023-05-20 12:15 | MHC.CM.PN ---
Addendum entered by Tamia Shrestha 05/20/23 15:34: Patient is planned for discharge tomorrow. Her daughter will come in for Education from MANAGER INSTRUMENTATION re modified consistency diet. Education is planned for 1pm. DP tomorrow via BLS to home. Original Note: MANAGER INSTRUMENTATION recommendations for a modified diet are documented. DP Home with resumption of [facility] services. Patient will resume HD @ [facility]. BLS transport has been arranged by [facility] @ HD center. The transport will start 05/22/23. DP HOME, resumption of ENVIRONMENTAL RESOURCE SPECIALIST services via BLS
--- NOTE | 2023-05-20 12:41 | P.PNIM_ITS ---
Subjective Subjective Date of Service: 05/20/23 Interval History: seen and examined this morning reporting that her food goes up and down a few times before she's able to swallow cough improving, no sob Review of Systems Review of Systems: Yes all other systems are reviewed and are negative Constitutional Constitutional: Denies chills and Denies fever(s) Cardiovascular Cardiovascular: Denies chest pain and Denies palpitations Gastrointestinal Gastrointestinal: Denies abdominal pain Endocrine Endocrine: Denies palpitations Physical Exam 2 Vital Signs: Vital Signs: Last Vital Signs Temp 97.1 F 05/20/23 03:53 Pulse 70 05/20/23 03:53 Resp 16 05/20/23 03:53 BP 112/53 L 05/20/23 03:53 Pulse Ox 98 05/20/23 03:53 O2 Del Method Oxymask 05/20/23 03:53 O2 Flow Rate 4 05/20/23 03:53 BMI result Body Mass Index 36.9 Appearing in no acute distress lung sounds are clear to auscultation heart regular rate rhythm, clear S1, S2 positive bowel sounds, abdomen is soft, nontender neuro patient is alert x3, no focal deficits Objective Data Active Medications Acetaminophen (Acetaminophen 325 Mg Tablet) 650 mg PO Q6H PRN PRN Reason: moderate pain Last Admin: 05/17/23 03:45 Dose: 650 mg Documented By: LOLLY Albuterol Sulfate (Albuterol Sulfate 90 Mcg 8 Gm Inhaler) 2 puff INHALE Q4H PRN PRN Reason: Shortness Of Breath Or Wheezing Aspirin (Aspirin Enteric Coated 81 Mg Tablet.) 81 mg PO DAILY [facility] Last Admin: 05/19/23 08:07 Dose: 81 mg Documented By: LEANNA Atorvastatin Calcium (Atorvastatin Calcium 20 Mg Tablet) 20 mg PO BEDTIME [facility] Last Admin: 05/19/23 20:58 Dose: 20 mg Documented By: VALARIE Dextrose (Dextrose 50 % 25 Gm/50 Ml Syringe) 25 gm IVPUSH Q15M PRN; Protocol PRN Reason: per Hypoglycemia Standing Ord. Docusate Sodium (Docusate Sodium 100 Mg Capsule) 100 mg PO BEDTIME [facility] Last Admin: 05/19/23 20:58 Dose: 100 mg Documented By: VALARIE Escitalopram Oxalate (Escitalopram Oxalate 10 Mg Tablet) 10 mg PO DAILY [facility] Last Admin: 05/19/23 08:07 Dose: 10 mg Documented By: LEANNA Famotidine (Famotidine 20 Mg Tablet) 20 mg PO DAILY [facility] Last Admin: 05/19/23 08:07 Dose: 20 mg Documented By: LEANNA Furosemide (Furosemide 40 Mg Tablet) 40 mg PO BID@0900,1800 [facility]; Protocol Last Admin: 05/19/23 17:30 Dose: 40 mg Documented By: LEANNA Gabapentin (Gabapentin 100 Mg Capsule) 100 mg PO TID [facility] Last Admin: 05/19/23 20:58 Dose: 100 mg Documented By: VALARIE Glucose (Glucose Gel 15 Gm Gel..Gram.) 15 gm PO Q15M PRN; Protocol PRN Reason: per Hypoglycemia Standing Ord. Guaifenesin (Guaifenesin La 600 Mg Tab.Er.12h) 600 mg PO BID PRN PRN Reason: Cough Heparin Sodium (Porcine) (Heparin Sodium,Porcine 5,000 Unit/Ml Vial) 5,000 unit SUBCUT Q8H [facility] Last Admin: 05/20/23 00:31 Dose: 5,000 unit Documented By: VALARIE Vancomycin HCl 500 mg/ Sodium (Chloride) 110 mls @ 110 mls/hr IV ONCE ONE Stop: 05/14/23 08:29 Insulin Human Lispro (Insulin Lispro 100 Unit/Ml 3 Ml Vial) 0 unit SUBCUT QIDACHS [facility]; Protocol Last Admin: 05/20/23 08:40 Dose: Not Given Documented By: ROXY Non-Admin Reason: No Insulin Coverage Levothyroxine Sodium (Levothyroxine Sodium 100 Mcg Tablet) 100 mcg PO DAILY@0600 [facility] Last Admin: 05/20/23 05:14 Dose: Not Given Documented By: VALARIE Non-Admin Reason: NPO Melatonin (Melatonin 3 Mg Tablet) 6 mg PO BEDTIME PRN PRN Reason: Insomnia Metoprolol Tartrate (Metoprolol Tartrate 12.5 Mg Halftab) 12.5 mg PO BID [facility]; Protocol Last Admin: 05/20/23 11:50 Dose: Not Given Documented By: RXOY Non-Pedro Reason: Off unit: Dialysis Nitroglycerin (Nitroglycerin 0.4 Mg Tab.Subl) 0.4 mg SUBLINGUAL Q5M PRN PRN Reason: chest pain Pharmacy Consult (Consult Rx Vancomycin Dosing) 1 each MISCELLANE DAILY PRN PRN Reason: Consult order Polyethylene Glycol (Polyethylene Glycol 3350 17 Gm Powd.Pack) 17 gm PO DAILY [facility] Last Admin: 05/19/23 08:08 Dose: Not Given Documented By: LEANNA Non-Admin Reason: pt having soft BMs Ranolazine (Ranolazine 500 Mg Tab.Er.12h) 500 mg PO BID [facility] Last Admin: 05/19/23 20:58 Dose: 500 mg Documented By: VALARIE Sodium Chloride (0.9 % Sodium Chloride Flush 3 Ml Syringe) 3 ml IVFLUSH QSHIFT [facility] Last Admin: 05/20/23 00:32 Dose: Not Given Documented By: VALARIE Non-Admin Reason: No Access Labs 05/14/23 05:18 05/20/23 05:56 Labs: Laboratory Results - last 24 hr 05/19/23 05/19/23 05/19/23 15:57 16:53 20:44 Hold Purple Top Estim Creat Clear Calc Estimated GFR POC Glucose 68 96 132 H 05/20/23 05/20/23 05/20/23 05:56 06:33 08:32 Hold Purple Top SEE NOTE Estim Creat Clear Calc 7.5 Estimated GFR 7 POC Glucose 94 Assessment and Plan (1) Bacteremia: Status: Acute Plan This is an 82 year old female with history of NSTEMI, diastolic heart failure, chronic respiratory failure with hypoxia and hypercapnia on 4 L supplemental O2 at baseline, ESRD on dialysis MWF, COPD, interstitial lung disease, xiw-oqjtjlb-embuzsgqg type 2 diabetes, hyperlipidemia, hypothyroidism, restless leg syndrome who is severely obese with BMI greater than 38 presented with hyperkalemia, ams Dysphagia speech eval>s/p MBS, rec ground mech solids and thin liquids aspiration precautions GI consult>barium swallow today to assess for esophageal dysmotility, pending results Acute metabolic encephalopathy due to missed hemodialysis. Resolved s/p HD, MWF schedule back to baseline mental status leukocytosis likely related to steroid use wbc trending down Tremor pt reports intermittent tremor which has caused her to fall several times including on the day of admission previous PT eval does note generalized jerking movements during assessment seen by neuro - features c/w chronic neuropathy, recommend further workup/EMG studies as outpatient PT eval rec home with 02/02 care as she was previously not agreeable to rehab - pt now agreeable for rehab Acute hyperkalemia resolved with lokelma Recent MSSA bacteremia repeat blood cultures negative to date continue Vancomycin post hemodialysis Chronic hypoxic and hypercapnic respiratory failure on 4 L due to COPD/ild with recent acute decompensation Completed prednisone lfv-kixgvdz-dcxjdfpey type 2 diabetes continue diabetic diet, SSI, POCs CAD Continue aspirin, statin, Ranexa Hypothyroid Synthroid Chronic diastolic CHF Still makes urine, continue Lasix Severe obesity with BMI 36 weight loss encouraged DVT prophylaxis with heparin subQ DNR/DNI attending - dr. Lauren Requires ongoing inpatient stay due to need for safe disposition, awaiting insurance authorization for [facility] Quality Stroke Does the patient have a stroke diagnosis?: No VTE Prior VTE?: No VTE Risk Level:: Medical - moderate - high VTE Device Contraindication: Treatment Not Indicated VTE Drug Contraindication: N/A - Med Ordered
[2023-05-20 14:11] LABS: Glucose, Whole Blood 92 mg/dL (60-115)
[2023-05-20 15:15] LABS: Vancomycin Random 8.2 mcg/mL (15-20)
--- NOTE | 2023-05-20 15:38 | P.DS_ITS ---
DS: Providers Provider Date of admission: 05/13/23 23:56 Primary care physician: Christina Paiz MD Consults: 05/13/23 23:55 Consult to Nephrology Routine Consulting Provider: [facility] Reason for consultation: esrd 05/14/23 15:45 Consult to Neurology Routine Consulting Provider: [facility] Reason for consultation: tremor, falls; ?slurred speech Has provider been notified: No 05/18/23 16:17 Consult to Gastroenterology Routine Consulting Provider: Soham Meek Reason for consultation: dysphagia DS: Diagnosis Discharge Diagnosis (1) Bacteremia: Status: Acute DS: Summary Hospital Course Hospital Course: 82F PMH NSTEMI, diastolic heart failure, chronic respiratory failure with hypoxia and hypercapnia on 4 L supplemental O2 at baseline, ESRD on dialysis MWF, COPD, staph bacteremia, interstitial lung disease, [id number] type 2 diabetes, hyperlipidemia, hypothyroidism, restless leg syndrome who is severely obese presented with fall, ams. patient missed HD on day of presentation as she was feeling weak, confused, with worsening tremor and slurred speech, she was brought to ED, found to have hyeprkalemia of 5.9. elevated wbc 17. patient was discharged from [facility] 05/11/23 after hospitalization for MSSA bacteremia. 82-year-old woman treated for dysphagia. Seen evaluated by speech therapy recommended modified barium swallow and Barium swallow xray study as per GI to assess for esophageal dysmotility results +++ she initially had an episode of acute metabolic encephalopathy secondary to her missed dialysis this but this did resolve pre soon after 1st dialysis during admission. Leukocytosis seem likely related to steroid use and white blood cell count trended down. Plan is for patient to do speech therapy outpatient in her home. Diet at this time is ground mechanical. History of MRSA bacteremia. Has been receiving her vancomycin during hemodialysis what is 4 weeks (06/08/23) Chronic diastolic congestive heart failure. Continue Lasix Severe obesity. Discussed importance of weight management as this may be contributing to worsening of other comorbidities Hypothyroidism. Continue levothyroxine Coronary artery disease. Continue aspirin, statin Chronic hypoxic and hypercapnic respiratory failure on 4 L chronic oxygen at home secondary to COPD. Stable no exacerbation during admission Physical Exam Vital Signs: Vital Signs: Last Vital Signs Temp 97.1 F 05/20/23 03:53 Pulse 70 05/20/23 03:53 Resp 16 05/20/23 03:53 BP 112/53 L 05/20/23 03:53 Pulse Ox 98 05/20/23 03:53 O2 Del Method Oxymask 05/20/23 03:53 O2 Flow Rate 4 05/20/23 03:53 BMI result Body Mass Index 36.9 DS: Data Data Completed and Pending Completed studies during hospitalization [Text1]: Procedures Assistance with Respiratory Ventilation, Less than 24 Consecutive Hours, Continuous Positive Airway Pressure (05/04/23) Performance of Urinary Filtration, Intermittent, Less than 6 Hours Per Day (05/04/23) Labs on day of discharge: Laboratory Results - last 24 hr 05/19/23 05/19/23 05/19/23 15:57 16:53 20:44 Hold Purple Top Creatinine Estim Creat Clear Calc Estimated GFR POC Glucose 68 96 132 H Random Vancomycin 05/20/23 05/20/23 05/20/23 05:56 06:33 08:32 Hold Purple Top SEE NOTE Creatinine 5.84 H* Estim Creat Clear Calc 7.5 Estimated GFR 7 POC Glucose 94 Random Vancomycin 05/20/23 05/20/23 14:08 14:23 Hold Purple Top Creatinine Estim Creat Clear Calc Estimated GFR POC Glucose 92 Random Vancomycin 8.2 L Discharge Plan Discharge Patient Disposition: Home Health Service Discharge Diagnosis: Dysphagia Referrals: Christina Paiz MD [Primary Care Provider] - 1 Week Discharge Medications: Continued (DME) wheelchair with footrests See Rx Instructions .Route .MEDSUPPLY Qty: 1 0RF Rx Instructions: As directed (DME) blood pressure test kit-medium Kit See Rx Instructions .Route Qty: 1 0RF Rx Instructions: As directed (DME) bedside commode Kit See Rx Instructions .Route Qty: 1 0RF Rx Instructions: As directed (DME) grab bar for bathroom See Rx Instructions .Route .MEDSUPPLY Qty: 2 0RF Rx Instructions: As directed citalopram 20 mg tablet 20 mg PO DAILY Qty: 300 3RF levothyroxine 100 mcg tablet 100 mcg PO DAILY@0600 famotidine 20 mg tablet 20 mg PO DAILY albuterol sulfate 90 mcg/actuation HFA aerosol inhaler 2 puff inhalation Q4H PRN (Reason: Shortness Of Breath Or Wheezing) aspirin 81 mg Tablet,Delayed Release (Dr/Ec) 81 mg PO DAILY Qty: 90 0RF metoprolol tartrate 25 mg tablet 12.5 mg PO BID Qty: 180 0RF atorvastatin 20 mg tablet 20 mg PO BEDTIME Trelegy Ellipta 100-62.5-25 mcg blister with device 1 ea inhalation DAILY furosemide 40 mg Tablet 40 mg PO BID@0900,1800 Qty: 60 0RF Protocol: Hold for SBP< HOLD for SBP < : 90 gabapentin 100 mg capsule 100 mg PO TID vancomycin in 0.9 % sodium chl 500 mg/100 mL piggyback 500 mg IV MOWEFR Rx Instructions: During dialysis prednisone 10 mg tablet 40 mg PO DIRECTED Qty: 5 0RF Rx Instructions: see taper instructions ranolazine 500 mg tablet extended release 12 hr 500 mg PO BID 90 Days Qty: 180 3RF nitroglycerin 0.4 mg tablet, sublingual 0.4 mg sublingual Q5M PRN (Reason: chest pain) Qty: 30 5RF Rx Instructions: do not exceed 3 doses per episode Diet: Ground mechanical diet Activity on Discharge: As tolerated Stand Alone Forms: Patient Portal Discharge page Care Plan Goals: Speech therapy in-home Health Concerns: Dysphagia Plan of Treatment: Follow-up with primary care provider as needed Take all medications as prescribed Assessment: See discharge summary
[2023-05-20 15:47] LABS: Glucose, Whole Blood 79 mg/dL (60-115)
[2023-05-20 16:00] VITALS: BP 171/81; PULSE 95; RESP 18; TEMP 36.7; O2SAT 94
[2023-05-20] MEDS: Gabapentin 100 MG CAPSULE PO ×2 (16:27→21:26)
[2023-05-20] MEDS: Furosemide 40 MG TABLET PO (17:53)
--- NOTE | 2023-05-20 19:04 | PM.PNNEP ---
Subjective Subjective Date of Service: 05/20/23 Interval history: Seen and examied,e vents noted W/U swallowing still progress Physical Exam Vital Signs: Vital Signs: Last Vital Signs Temp 98.0 F 05/20/23 16:00 Pulse 95 05/20/23 16:00 Resp 18 05/20/23 16:00 BP 171/81 H 05/20/23 16:00 Pulse Ox 94 05/20/23 16:00 O2 Del Method Nasal Cannula 05/20/23 16:00 O2 Flow Rate 4 05/20/23 16:00 BMI result Body Mass Index 36.9 Const: General: comfortable, no acute distress, alert and awake Nutritional Appearance: well nourished HEENT: Head: Yes normocephalic and Yes atraumatic Eyes: Eyelids: Yes eyelids normal Conjunctivae: conjunctivae normal Sclerae: sclerae normal Corneas: corneas normal Pupils: Equal, round and reactive pupils present EOM: EOMs intact bilaterally Neck: Neck: Yes full ROM Resp: Effort & Inspection: normal respiratory effort, able to speak in complete sentences and not labored GI: Inspection: No distended Palpation (GI): Soft to palpation, not firm, nontender, no guarding and not rigid Skin: General skin exam: elasticity normal Neuro: Other: Internet Marketing Analyst strength bilaterally is 4-5 Strength to bilateral upper extremities is 4-5 to major muscle groups. Strength to lower extremities bilaterally is 2/5 with flexion Cranial nerves: Yes CN's II-XII intact bilaterally, Yes Equal, round and reactive pupils present and Yes Bilaterally intact EOM present Cognition (Neuro): normal cognition Speech: Abnormal speech present slurred (Patient's speech is mostly clear but occasionally will have slurred words); Negative for stuttering or complete aphasia Motor exam (neuro): strength not 5/5 throughout Extrem: Other: Moving all extremities well without any obvious deformities Objective Data Labs 05/14/23 05:18 05/20/23 05:56 Labs: Laboratory Results - last 24 hr 05/19/23 05/20/23 05/20/23 20:44 05:56 06:33 Hold Purple Top SEE NOTE Creatinine 5.84 H* Estim Creat Clear Calc 7.5 Estimated GFR 7 POC Glucose 132 H Random Vancomycin 05/20/23 05/20/23 05/20/23 08:32 14:08 14:23 Hold Purple Top Creatinine Estim Creat Clear Calc Estimated GFR POC Glucose 94 92 Random Vancomycin 8.2 L 05/20/23 15:43 Hold Purple Top Creatinine Estim Creat Clear Calc Estimated GFR POC Glucose 79 Random Vancomycin Microbiology Microbiology Results: Microbiology 05/13/23 20:11 Blood - Venous Blood Culture - Final No growth after 5 days. 05/13/23 19:45 Blood - Venous Blood Culture - Final No growth after 5 days. Procedures Date of Service Date of Service: 05/20/23 Assessment & Plan Assessment and plan (1) Encephalopathy: Status: Acute Assessment and Plan: 82-year-old female with past medical history of ESRD, HTN, T2DM, Hyperuricemia, hypothyroidism, and COPD/Bronchitis who presents with AMS due to missed HD. The pt had her RUE AVF placed 12/24/22 at [facility]. Dialyzes at [facility] C/O swallowing probs--getting Speech eval in progress Unsafe to go home-- looking for Rehab placement ( [facility]) vs HOME with services REC - HD continued on MWF schedule - protect RUE AVF - c/w PO lasix as pt makes urine - c/w metoprolol BP - No need for ESAs right now - Speech eval -manager technical sales to see about [facility] vs going home with jimbo Time Spent With Patient Time: Total time managing care of this patient today ____ minutes. Progress Note: Quality Stroke Does the patient have a stroke diagnosis?: No
[2023-05-20 19:48] LABS: Glucose, Whole Blood 167 mg/dL (60-115)
[2023-05-20 20:00] VITALS: BP 117/64; PULSE 88; RESP 18; TEMP 36.3; O2SAT 99
[2023-05-20] MEDS: Metoprolol Tartrate 12.5 MG HALFTAB PO (21:25)
[2023-05-20] MEDS: Ranolazine 500 MG TAB.ER.12H PO (21:25)
[2023-05-20] MEDS: Atorvastatin Calcium 20 MG TABLET PO (21:25)
[2023-05-20] MEDS: Docusate Sodium 100 MG CAPSULE PO (21:26)
[2023-05-20] MEDS: Insulin Lispro 100 UNIT/ML 3 ML VIAL SUBCUT (21:26)
[2023-05-20 23:24] VITALS: BP 147/63; PULSE 72; RESP 18; TEMP 36.2; O2SAT 99
[2023-05-20 23:40] LABS: Glucose, Whole Blood 67 mg/dL (60-115)
[2023-05-20 23:40] LABS: Glucose, Whole Blood 38 mg/dL (60-115)
[2023-05-20 23:55] LABS: Glucose, Whole Blood 94 mg/dL (60-115)
[2023-05-21 03:43] VITALS: BP 115/63; PULSE 71; RESP 16; TEMP 36; O2SAT 94
--- NOTE | 2023-05-21 04:04 | PC.NURSE ---
late entry bedtime blood glucose was 167, patient was covered with 2 units of Humalog per sliding scale. At 2319 patient reported not feeling well, awake and alert. Blood sugar checked and was 38. Quickly apple juice and peanut butter sandwich given with good effect, rechecked result was 94. Md notified.
[2023-05-21] MEDS: Levothyroxine Sodium 100 MCG TABLET PO (05:57)
[2023-05-21 06:57] LABS: Creatinine Clr Calc Pharmacy 9.9; Estimated Glomerular Filt Rate 9
[2023-05-21 07:29] LABS: Glucose, Whole Blood 101 mg/dL (60-115)
[2023-05-21 08:00] VITALS: BP 129/88; PULSE 69; RESP 17; TEMP 36.1; O2SAT 97
[2023-05-21] MEDS: Heparin Sodium,Porcine 5,000 UNIT/ML VIAL 5000 UNIT SUBCUT ×2 (09:37→14:25)
[2023-05-21] MEDS: Escitalopram Oxalate 10 MG TABLET PO (09:38)
[2023-05-21] MEDS: Famotidine 20 MG TABLET PO (09:38)
[2023-05-21] MEDS: Metoprolol Tartrate 12.5 MG HALFTAB PO (09:38)
[2023-05-21] MEDS: Ranolazine 500 MG TAB.ER.12H PO (09:38)
[2023-05-21] MEDS: polyethylene glycoL 3350 17 GM POWD.PACK PO (09:38)
[2023-05-21] MEDS: Furosemide 40 MG TABLET PO ×2 (09:38→17:12)
[2023-05-21] MEDS: Aspirin Enteric Coated 81 MG TABLET.DR PO (09:38)
[2023-05-21] MEDS: Gabapentin 100 MG CAPSULE PO ×2 (09:38→14:25)
[2023-05-21 11:14] LABS: Glucose, Whole Blood 108 mg/dL (60-115)
--- NOTE | 2023-05-21 11:57 | PM.DS ---
DS: Providers Provider Date of Service: 05/21/23 Date of admission: 05/13/23 23:56 Date of discharge: 05/21/23 Primary care physician: Christina Paiz MD Consults: 05/13/23 23:55 Consult to Nephrology Routine Consulting Provider: [facility] Reason for consultation: esrd 05/14/23 15:45 Consult to Neurology Routine Consulting Provider: [facility] Reason for consultation: tremor, falls; ?slurred speech Has provider been notified: No 05/18/23 16:17 Consult to Gastroenterology Routine Consulting Provider: Soham Meek Reason for consultation: dysphagia Attending physician on discharge: Dmitri Lauren Discharging clinician: Meliza Snow DS: Diagnosis Discharge Diagnosis (1) Encephalopathy: Status: Acute (2) Dysphagia: Status: Acute DS: Summary Hospital Course Hospital Course: 82F PMH NSTEMI, diastolic heart failure, chronic respiratory failure with hypoxia and hypercapnia on 4 L supplemental O2 at baseline, ESRD on dialysis MWF, COPD, staph bacteremia, interstitial lung disease, rib-duthbyf-[id number] type 2 diabetes, hyperlipidemia, hypothyroidism, restless leg syndrome who is severely obese presented with fall, ams. patient missed HD on day of presentation as she was feeling weak, confused, with worsening tremor and slurred speech, she was brought to ED, found to have hyeprkalemia of 5.9. elevated wbc 17. patient was discharged from [facility] 05/11/23 after hospitalization for MSSA bacteremia. 82-year-old woman treated for dysphagia. Seen evaluated by speech therapy recommended modified barium swallow and Barium swallow xray study as per GI to assess for esophageal dysmotility. She had barium swallow showing small posterior pharyngeal pouch present which is likely contributing to patient's regurgitation, severe esophageal dysmotility and small sliding hiatial hernia. she was seen by speech who recommended NDD2 ground/mehcanically altered diet with thin liquids and pills whole with puree. She will be discharged home with plan for outpatient speech therapy and will continue famotidine for possible component of GERD. Per GI she is likely high risk for EGD and would not likely be high yield. Consider outpatient ENT eval for ? of posterior pharangeal pouch. she initially had an episode of acute metabolic encephalopathy secondary to her missed dialysis this but this resolved after 1st dialysis during admission. Leukocytosis seem likely related to steroid use and white blood cell count trended down. Patient initially missed dialysis due to fall which she states is seconary to tremor. she was seen by neurology who recommnded outpatient EMG studies. She was initially planning to go to [facility] but she was able to have transportation via ambulance arranged for her dialysis sessions and thus has opted to return home to resume her previous care. History of MRSA bacteremia. Has been receiving her vancomycin during hemodialysis to complete 4 weeks (06/08/23) Chronic diastolic congestive heart failure. Continue Lasix Severe obesity. Discussed importance of weight management as this may be contributing to worsening of other comorbidities Hypothyroidism. Continue levothyroxine Coronary artery disease. Continue aspirin, statin Chronic hypoxic and hypercapnic respiratory failure on 4 L chronic oxygen at home secondary to COPD. Stable no exacerbation during admission Time Attestation Discharge coordination time: Greater than 30 minutes Quality: Safe Use of Opioids Does Pt have an Active Cancer Diagnosis on the Problem List?: No Quality: Stroke Does the patient have a stroke diagnosis?: No Physical Exam Vital Signs: Vital Signs: Last Vital Signs Temp 97.0 F 05/21/23 08:00 Pulse 69 05/21/23 08:00 Resp 17 05/21/23 08:00 BP 129/88 05/21/23 08:00 Pulse Ox 97 05/21/23 08:00 O2 Del Method Oxymask 05/21/23 08:00 O2 Flow Rate 4.0 05/21/23 08:00 BMI result Body Mass Index 36.9 Const: General: cooperative Nutritional Appearance: obese Orientation/consciousness: patient oriented x3 Resp: Other: dry crackles b/l Effort & Inspection: normal respiratory effort, able to speak in complete sentences, no respiratory distress and no use of accessory muscles Cardio: Rate: regular rate Heart sounds: Murmur heart sound present GI: Inspection: No distended Palpation (GI): Soft to palpation and nontender Neuro: Other: grossly nonfocal General: patient oriented x3 and moves all extremities Extrem: General: Yes no pedal edema DS: Data Data Completed and Pending Completed studies during hospitalization [Text1]: Procedures Assistance with Respiratory Ventilation, Less than 24 Consecutive Hours, Continuous Positive Airway Pressure (05/04/23) Performance of Urinary Filtration, Intermittent, Less than 6 Hours Per Day (05/04/23) Labs on day of discharge: Laboratory Results - last 24 hr 05/20/23 05/20/23 05/20/23 14:08 14:23 15:43 Hold Purple Top Creatinine Estim Creat Clear Calc Estimated GFR POC Glucose 92 79 Random Vancomycin 8.2 L 05/20/23 05/20/23 05/20/23 19:43 23:19 23:34 Hold Purple Top Creatinine Estim Creat Clear Calc Estimated GFR POC Glucose 167 H 38 L* 67 Random Vancomycin 05/20/23 05/21/23 05/21/23 23:51 05:52 06:25 Hold Purple Top SEE NOTE Creatinine 4.45 H* Estim Creat Clear Calc 9.9 Estimated GFR 9 POC Glucose 94 Random Vancomycin 05/21/23 05/21/23 07:20 11:05 Hold Purple Top Creatinine Estim Creat Clear Calc Estimated GFR POC Glucose 101 108 Random Vancomycin Discharge Plan Discharge Anticipated Discharge Date/Time: 05/21/23 12:05 Patient Disposition: Home Health Service Discharge Diagnosis: Dysphagia Referrals: Christina Paiz MD [Primary Care Provider] - 1 Week Calos Gutierrez MD [Physician] - 1 Week Discharge Medications: Continued (DME) wheelchair with footrests See Rx Instructions .Route .MEDSUPPLY Qty: 1 0RF Rx Instructions: As directed (DME) blood pressure test kit-medium Kit See Rx Instructions .Route Qty: 1 0RF Rx Instructions: As directed (DME) bedside commode Kit See Rx Instructions .Route Qty: 1 0RF Rx Instructions: As directed (DME) grab bar for bathroom See Rx Instructions .Route .MEDSUPPLY Qty: 2 0RF Rx Instructions: As directed citalopram 20 mg tablet 20 mg PO DAILY Qty: 300 3RF levothyroxine 100 mcg tablet 100 mcg PO DAILY@0600 famotidine 20 mg tablet 20 mg PO DAILY albuterol sulfate 90 mcg/actuation HFA aerosol inhaler 2 puff inhalation Q4H PRN (Reason: Shortness Of Breath Or Wheezing) aspirin 81 mg Tablet,Delayed Release (Dr/Ec) 81 mg PO DAILY Qty: 90 0RF metoprolol tartrate 25 mg tablet 12.5 mg PO BID Qty: 180 0RF atorvastatin 20 mg tablet 20 mg PO BEDTIME Trelegy Ellipta 100-62.5-25 mcg blister with device 1 ea inhalation DAILY furosemide 40 mg Tablet 40 mg PO BID@0900,1800 Qty: 60 0RF Protocol: Hold for SBP< HOLD for SBP < : 90 gabapentin 100 mg capsule 100 mg PO TID vancomycin in 0.9 % sodium chl 500 mg/100 mL piggyback 500 mg IV MOWEFR Rx Instructions: During dialysis ranolazine 500 mg tablet extended release 12 hr 500 mg PO BID 90 Days Qty: 180 3RF nitroglycerin 0.4 mg tablet, sublingual 0.4 mg sublingual Q5M PRN (Reason: chest pain) Qty: 30 5RF Rx Instructions: do not exceed 3 doses per episode Discontinued prednisone 10 mg tablet 40 mg PO DIRECTED Qty: 5 0RF Rx Instructions: see taper instructions Discharge Orders: Discharge Order (Routine); Ordered 05/21/23 Ordered By: Meliza Snow Diet: Ground mechanical diet Activity on Discharge: As tolerated Stand Alone Forms: Patient Portal Discharge page Care Plan Goals: Speech therapy in-home Health Concerns: Dysphagia Tremor Plan of Treatment: Follow-up with primary care provider as needed Take all medications as prescribed Recommend outpatient EMG studies/follow up with neurology for further evaluation of tremor resume dialysis per previous schedule and continue vancomycine post HD as prescribed completed prednisone taper during hospitalization Assessment: See discharge summary
--- NOTE | 2023-05-21 13:29 | MHC.CM.PN ---
PT WILL DC HOME TODAY WITH RESUMPTION OF OUTPATIENT HD STARTING TOMORROW SHE WILL ALSO HAVE BLS TRANSPORT AVAILABLE FOR [facility] SHE WILL RESUME FAMILY CARE CM MET WITH PT AND DAUGHTER THEY ARE AWARE OF DC PLAN THEY ALSO CONFIRM PT HAS [facility] CM ENCOURAGED THEM TO SEEK AN INCREASE IN [facility] PT AND DAUGHTER WERE PROVIDED WITH EDUCATION VIA PERSONNEL SCHEDULER ON PTS DIET RECOMMENDATIONS PT WILL DC HOME [facility]IA [facility] TODAY AT 1630
--- NOTE | 2023-05-21 13:48 | MHC.CM.PN ---
Addendum entered by Tamia Shrestha 05/21/23 13:53: Patient reports that she has [facility]. The consult to financial not needed. Original Note: A referral has been sent to [facility]. Per provider, patient will likely return to the hospital. PT/Family will need assist with the [facility] application for LTC.
--- NOTE | 2023-05-21 15:20 | MHC.SL.SWA ---
Speech Pathologist Impression: Risk of Aspiration Due to: Lethargy Medically Fragile History of Pneumonia Weak Cough Weak Voice Dysphasia Diet Status: Continue on Ground/Mechanical Altered (soft solid) with Thin liquids with safe swallowing strategies. Liquid Consistency and Strategies for Safe Swallow: Liquid Intake Recommendation: Thin Liquid Intake Strategies: Small Sips Solid Food Consistency: Dietary Recommendations: Grnd/Mech Altered (NDD2) Additional Modifications to Solid Foods: Swallow twice on all liquids. Defer drinking liquids until after consumption of solids at meal. Oral Medication Intake: Whole with Puree Please contact the pharmacy regarding appropriate crushable or liquid drug formulations that are available whenever modified delivery is recommended. Compensatory Strategies and Precautions to be Taken for Safe Swallow: Sitting Upright (90 deg) Double Swallow Small Bites and Sips Rate of Ingestion Change Supervision While Eating and Drinking for Safe Swallow: Intermittent Supervision Foods to Avoid: Mixed textures Swallowing Recommended Treatments: Compens. Strategy Educat. Recommendation for Speech: Inpatient Speech Therapy Comment: Patient and daughter seen at bedside today at 1 p.m. as requested by CM. Patient was seen for MBSS study by [facility] on 05/19/23, however per patient and family no results from that study had been discussed. [facility] C[facility] declined seeing patient 05/20/23 as she was NPO for upper GI Barium swallow. Results of the MBSS study were reviewed as well as recommendations. That the study showed post laryngeal reflux after swallow of thin liquids was not a surprise to the patient as this is her common experience. Patient noted that she had decided her best strategy was to eat solids during meals and postpone liquids until after meals, which was reinforced as a very practical strategy, although [facility] in recommendations had recommended alternation of liquids and solids. Patient is aware, and has used as a long standing strategy swallowing twice on liquids. Patient and daughter had questions about GI Barium Swallow study and were referred to the hospitalist semiconductor engineer for that information. Per patient and daughter they will be following up with GI as an outpatient. RN was informed about patient's questions about GI Barium Swallow. Patient scheduled for D/C at 2:30 today. Frequency/Duration: Date Range for Service Req: Timeline to reassess: PRN Manager Department Clinican/Clinical Fellow: No Supervisory Statement: I have reviewed and agree with the student/clinical fellow's documentation: N/A Speech Language Pathologist: Lissette Mckeon M.A., [facility]
[2023-05-21 15:47] VITALS: BP 107/53; PULSE 68; RESP 18; TEMP 36; O2SAT 97
[2023-05-21 16:35] LABS: Glucose, Whole Blood 98 mg/dL (60-115)
--- NOTE | 2023-05-21 17:25 | P.PNNP_ITS ---
Subjective Subjective Date of Service: 05/21/23 Interval history: Seen and examied, events noted W/U swallowing still progress Physical Exam 2 Vital Signs: Vital Signs: Last Vital Signs Temp 96.8 F 05/21/23 15:47 Pulse 68 05/21/23 15:47 Resp 18 05/21/23 15:47 BP 107/53 L 05/21/23 15:47 Pulse Ox 97 05/21/23 15:47 O2 Del Method Oxymask 05/21/23 15:47 O2 Flow Rate 4 05/21/23 15:47 BMI result Body Mass Index 36.9 Const: General: comfortable, no acute distress, alert and awake Nutritional Appearance: well nourished HEENT: Head: Yes normocephalic and Yes atraumatic Eyes: Eyelids: Yes eyelids normal Conjunctivae: conjunctivae normal S clerae: sclerae normal Corneas: corneas normal Pupils: Equal, round and reactive pupils present EOM: EOMs intact bilaterally Neck: Neck: Yes full ROM Resp: Effort & Inspection: normal respiratory effort, able to speak in complete sentences and not labored GI: Inspection: No distended Palpation (GI): Soft to palpation, not firm, nontender, no guarding and not rigid Skin: General skin exam: elasticity normal Neuro: Other: Director Of Alumni Relations strength bilaterally is 4-5 Strength to bilateral upper extremities is 4-5 to major muscle groups. Strength to lower extremities bilaterally is 2/5 with flexion Cranial nerves: Yes CN's II-XII intact bilaterally, Yes Equal, round and reactive pupils present and Yes Bilaterally intact EOM present Cognition (Neuro): normal cognition Speech: Abnormal speech present slurred (Patient's speech is mostly clear but occasionally will have slurred words); Negative for stuttering or complete aphasia Motor exam (neuro): strength not 5/5 throughout Extrem: Other: Moving all extremities well without any obvious deformities Objective Data Labs 05/14/23 05:18 05/21/23 05:52 Labs: Laboratory Results - last 24 hr 05/20/23 05/20/23 05/20/23 19:43 23:19 23:34 Hold Purple Top Creatinine Estim Creat Clear Calc Estimated GFR POC Glucose 167 H 38 L* 67 05/20/23 05/21/23 05/21/23 23:51 05:52 06:25 Hold Purple Top SEE NOTE Creatinine 4.45 H* Estim Creat Clear Calc 9.9 Estimated GFR 9 POC Glucose 94 05/21/23 05/21/23 05/21/23 07:20 11:05 16:31 Hold Purple Top Creatinine Estim Creat Clear Calc Estimated GFR POC Glucose 101 108 98 Microbiology Microbiology Results: Microbiology 05/13/23 20:11 Blood - Venous Blood Culture - Final No growth after 5 days. 05/13/23 19:45 Blood - Venous Blood Culture - Final No growth after 5 days. Procedures Date of Service Date of Service: 05/21/23 Assessment & Plan Assessment and plan (1) Encephalopathy: Status: Acute Assessment and Plan: 82-year-old female with past medical history of ESRD, HTN, T2DM, Hyperuricemia, hypothyroidism, and COPD/Bronchitis who presents with AMS due to missed HD. The pt had her RUE AVF placed 12/24/22 at [facility]. Dialyzes at [facility] C/O swallowing probs--getting Speech eval in progress Unsafe to go home-- looking for Rehab placement ( [facility]) vs HOME with services REC - HD continued on TTS schedule - protect RUE AVF - c/w PO lasix as pt makes urine - c/w metoprolol BP - No need for ESAs right now - Speech eval -healthcare advisory services manager to see about [facility] vs going home with jimbo Time Spent With Patient Time: Total time managing care of this patient today ____ minutes. Progress Note: Quality Stroke Does the patient have a stroke diagnosis?: No
== END 2023-05-21 17:57 | disposition home health service (06) | DRG 640 ==
LOC: HO.ED 23:35 → HO.EDOVER 05-14 00:19 → HO.S3 05-14 08:21
PROVIDERS: Family Medicine; Nurse Practitioner Acute Care; Physician Assistant; Admitting Provider Internal Medicine; Emergency Provider Student in an Organized Health Care Education/Training Program; PCP Internal Medicine; Visit Provider Physician Assistant Medical
DX: E87.5 Hyperkalemia (principal); G93.41 Metabolic encephalopathy; N18.6 End stage renal disease; I50.32 Chronic diastolic (congestive) heart failure; J96.11 Chronic respiratory failure with hypoxia; J96.12 Chronic respiratory failure with hypercapnia; R78.81 Bacteremia; I25.10 Atherosclerotic heart disease of native coronary artery without angina pectoris; E03.9 Hypothyroidism, unspecified; Z20.822 Contact with and (suspected) exposure to COVID-19; B95.61 Methicillin susceptible Staphylococcus aureus infection as the cause of diseases classified elsewhere; E66.01 Morbid (severe) obesity due to excess calories; J44.9 Chronic obstructive pulmonary disease, unspecified; Z68.36 Body mass index [BMI] 36.0-36.9, adult; E11.22 Type 2 diabetes mellitus with diabetic chronic kidney disease; E11.40 Type 2 diabetes mellitus with diabetic neuropathy, unspecified; Z66 Do not resuscitate; K22.4 Dyskinesia of esophagus; Z91.158 Patient's noncompliance with renal dialysis for other reason; Z99.81 Dependence on supplemental oxygen; Z99.2 Dependence on renal dialysis; Z87.891 Personal history of nicotine dependence; Z79.82 Long term (current) use of aspirin; Z79.890 Hormone replacement therapy; Z79.899 Other long term (current) drug therapy
CPT/HCPCS: 0241U; 36415; 70450; 71045; 74220; 74230; 80048; 80053; 80202; 81001; 82565; 82803; 82947; 83605; 83690; 83735; 84443; 84484; 85025; 85027; 85610; 85730; 87040; 90999; 92610; 92611; 93005; 97110; 97163; 97530; 99285; J1643; J2270; J3370

== ENCOUNTER → 2023-05-13 19:13 | Outpatient (BNV) | payer OTHER, SELFPAY | PROVIDERS: Emergency Provider Student in an Organized Health Care Education/Training Program; Visit Provider Internal Medicine | DX: G93.40 Encephalopathy, unspecified (principal); R13.10 Dysphagia, unspecified | CPT/HCPCS: 99223; 99232; 99239 ==

== ENCOUNTER 2023-05-13 23:56 | Outpatient (BNV) | payer OTHER, SELFPAY | END 2023-05-19 16:17 | PROVIDERS: Admitting Provider Internal Medicine; Emergency Provider Student in an Organized Health Care Education/Training Program; PCP Internal Medicine; Visit Provider Radiology Diagnostic Radiology | DX: R13.10 Dysphagia, unspecified (principal) | CPT/HCPCS: 74230 ==

== ENCOUNTER 2023-05-13 23:56 | Outpatient (BNV) | payer OTHER, SELFPAY | END 2023-05-20 07:10 | PROVIDERS: Admitting Provider Internal Medicine; Emergency Provider Student in an Organized Health Care Education/Training Program; PCP Internal Medicine; Visit Provider Radiology Diagnostic Radiology | DX: R13.10 Dysphagia, unspecified (principal) | CPT/HCPCS: 74220 ==

== ENCOUNTER 2023-06-21 10:07 | Emergency (ER) | payer OTHER, SELFPAY ==
--- NOTE | ~2023-06-21 | CT_ITS ---
EXAMINATION: CT OF THE HEAD WITHOUT CONTRAST CT OF THE CERVICAL SPINE WITHOUT CONTRAST CLINICAL INFORMATION: Fall.. COMPARISON: CT scan of the head dated 05/13/2023. CT scan of the head and cervical spine dated 03/06/2023. CT scan of the chest dated 04/19/2023. TECHNIQUE: Contiguous axial imaging was performed from the skullbase to vertex without intravenous administration of contrast. Coronal reformations of the head were obtained. Contiguous axial imaging was then performed from the skull base down to the thoracic inlet. Coronal and sagittal reformations of the cervical spine were obtained. This CT examination was performed using dose optimization techniques as appropriate, variously including the following: *Automated exposure control *Adjustment of mA and/or kV according to patient size (this includes techniques or standardized protocols for targeted exams where dose is matched to indication/reason for exam; i.e. extremities or head) *Use of iterative reconstruction technique DLP: CT of the brain: 757.60 mGy-cm. CT of the cervical spine: 757.60 mGy-cm. FINDINGS: CT scan of the head: There is no evidence of acute intracranial hemorrhage or territorial infarction. No abnormal mass-effect or midline shift is seen. Cruz to white matter differentiation is well preserved. No extra-axial fluid collections are identified. The ventricles and sulci are mildly enlarged. There is mild periventricular and deep white matter low-attenuation seen, consistent with ischemic small vessel disease. Atherosclerotic calcifications of the carotid siphons and the vertebrobasilar arteries noted.. The patient is status post bilateral ocular lens extractions and replacements. Юлия bullosa of the right middle turbinate and mild nasal septal deviation toward the left side is noted. The osseous structures and soft tissues are otherwise unremarkable. The mastoid air cells and visualized portions of the paranasal sinuses are well-aerated. CT scan of the cervical spine: Diffuse osteopenia. Evaluation limited due to extensive hypertrophic and degenerative changes throughout the spine. No definite evidence of acute fracture or dislocation. Craniocervical junction and atlantoaxial articulations are intact with extensive hypertrophic changes and degenerative changes seen, similar to the previous exam. Prevertebral soft tissues are normal in thickness. There is osseous fusion of the C4-C7 vertebral bodies, similar to the previous exam. Severe degenerative disc disease and partial ankylosis of the C3-C4 disc space and C7-T1 disc space is seen. There is grade 1 retrolisthesis of C3 on C4 and grade 1 anterolisthesis of C7 on T1. There is at least mild spinal canal stenosis at the C3-C4 level, similar to the previous exam. There is severe facet arthropathy throughout the cervical spine bilaterally. Atherosclerotic calcifications of the extracranial cervical carotid arteries are noted. There is partial inclusion of the previously demonstrated centrilobular and paraseptal emphysema, biapical scarring and interstitial lung disease, similar to 04/19/2023. CT/CT cervical spine wo IV con IMPRESSION: CT SCAN OF THE HEAD: * No acute intracranial pathology. * Findings of ischemic small vessel disease. CT SCAN OF THE CERVICAL SPINE: * No evidence of acute cervical spine fracture or malalignment. * Extensive degenerative changes in the spine with fusion of the C4-C7 vertebral bodies and significant degenerative changes resulting in at least mild spinal stenosis at the 3-4, similar to the previous exam.
--- NOTE | ~2023-06-21 | XR_ITS ---
EXAMINATION: XR PELVIS CLINICAL INFORMATION: Fall COMPARISON: Previous x-ray February 2022 TECHNIQUE: AP view of the pelvis. FINDINGS: No fracture or dislocation. Moderate arthritis at both hip joints with joint space narrowing and osteophyte formation. Degenerative changes at the sacroiliac joints. Heterotopic bone adjacent to the right iliac crest. Degenerative changes of the lower lumbar spine. Battery projects over the right iliac crest. XR/XR pelvis 1-2V IMPRESSION: No fracture or dislocation. Moderate bilateral hip arthritis.
[2023-06-21 10:19] VITALS: BP 126/58; PULSE 88; O2SAT 94
[2023-06-21 10:23] VITALS: BP 80/38; PULSE 81; RESP 18; TEMP 36.6; O2SAT 100; BMI 36.8
--- NOTE | 2023-06-21 10:33 | ECG_ITS ---
Test Reason : FALL Blood Pressure : / mmHG Vent. Rate : 080 BPM Atrial Rate : 080 BPM P-R Int : 238 ms QRS Dur : 080 ms QT Int : 372 ms P-R-T Axes : 043 053 015 degrees QTc Int : 429 ms Sinus rhythm with 1st degree A-V block Cannot rule out inferior infarct Abnormal ECG When compared with ECG of 13-MAY-2023 20:57, No significant change was found Referred By: Hazel Mina Electronically Signed By:Dmitry Rogers
[2023-06-21 10:44] LABS: MANUAL DIFF FLAG NO
--- OUTSIDE RECORDS SUMMARY | 2023-06-21 10:45 | XMS_ITS | Encounter Summary ---
Author Name Unknown Organization [facility] Address [facility] [place] [address] Encounter Details Date Type Department Care Team Description 2023-03-03 Telephone [facility] [address] [place] [address] Meliza Owens Medication Reconciliation was successfully completed by the [facility]. ASSESSMENT No Information TREATMENT PLAN No Information
--- OUTSIDE RECORDS SUMMARY | 2023-06-21 10:45 | XMS_ITS | Encounter Summary ---
Author Name Unknown Organization [facility] Address [facility] [place] [address] Encounter Details Date Type Department Care Team Description 2023-02-26 Telephone [facility] [address] [place] [address] Meliza Nelson The [facility] care team was unable to complete a Medication Reconciliation with the patient following discharge. ASSESSMENT No Information TREATMENT PLAN No Information
--- OUTSIDE RECORDS SUMMARY | 2023-06-21 10:45 | XMS_ITS | Encounter Summary ---
Author Name Unknown Organization [facility] Address [facility] [place] [address] Encounter Details Date Type Department Care Team Description 2023-02-26 Telephone [facility] [address] [place] [address] Meliza Nelson The [facility] care team was unable to complete a Medication Reconciliation with the patient following discharge. ASSESSMENT No Information TREATMENT PLAN No Information
--- OUTSIDE RECORDS SUMMARY | 2023-06-21 10:45 | XMS_ITS | Encounter Summary ---
Author Name Unknown Organization [facility] Address [facility] [place] [address] Encounter Details Date Type Department Care Team Description 2023-03-31 Telephone [facility] [address] [place] [address] Han Owens Medication Reconciliation was successfully completed by the [facility]. ASSESSMENT No Information TREATMENT PLAN No Information
--- OUTSIDE RECORDS SUMMARY | 2023-06-21 10:45 | XMS_ITS | Encounter Summary ---
Author Name Unknown Organization [facility] Address [facility] [place] [address] Encounter Details Date Type Department Care Team Description 2023-03-03 Telephone [facility] [address] [place] [address] Meliza Owens Medication Reconciliation was successfully completed by the [facility]. ASSESSMENT No Information TREATMENT PLAN No Information
--- OUTSIDE RECORDS SUMMARY | 2023-06-21 10:45 | XMS_ITS | Encounter Summary ---
Author Name Unknown Organization [facility] Address [facility] [place] [address] Encounter Details Date Type Department Care Team Description 2023-03-03 Telephone [facility] [address] [place] [address] Meliza Owens Medication Reconciliation was successfully completed by the [facility]. ASSESSMENT No Information TREATMENT PLAN No Information
--- OUTSIDE RECORDS SUMMARY | 2023-06-21 10:45 | XMS_ITS | Encounter Summary ---
Author Name Unknown Organization [facility] Address [facility] [place] [address] Encounter Details Date Type Department Care Team Description 2023-01-29 Telephone [facility] [address] [place] [address] Pepito Glasgow The [facility] care team was unable to complete a Medication Reconciliation with the patient following discharge. ASSESSMENT No Information TREATMENT PLAN No Information
--- OUTSIDE RECORDS SUMMARY | 2023-06-21 10:45 | XMS_ITS | Encounter Summary ---
Author Name Unknown Organization [facility] Address [facility] [place] [address] Encounter Details Date Type Department Care Team Description 2023-03-03 Telephone [facility] [address] [place] [address] Meliza Owens Medication Reconciliation was successfully completed by the [facility]. ASSESSMENT No Information TREATMENT PLAN No Information
--- OUTSIDE RECORDS SUMMARY | 2023-06-21 10:45 | XMS_ITS | Encounter Summary ---
Author Name Unknown Organization [facility] Address [facility] [place] [address] Encounter Details Date Type Department Care Team Description 2023-03-06 Telephone [facility] [address] [place] [address] Shanel Owens Medication Reconciliation was successfully completed by the [facility]. ASSESSMENT No Information TREATMENT PLAN No Information
--- OUTSIDE RECORDS SUMMARY | 2023-06-21 10:45 | XMS_ITS | Encounter Summary ---
Author Name Unknown Organization [facility] Address [facility] [place] [address] Encounter Details Date Type Department Care Team Description 2023-01-08 Telephone [facility] [address] [place] [address] Pepito Owens Medication Reconciliation was successfully completed by the [facility]. ASSESSMENT No Information TREATMENT PLAN No Information
--- OUTSIDE RECORDS SUMMARY | 2023-06-21 10:45 | XMS_ITS | Encounter Summary ---
Author Name Unknown Organization [facility] Address [facility] [place] [address] Encounter Details Date Type Department Care Team Description 2023-03-03 Telephone [facility] [address] [place] [address] Meliza Owens Medication Reconciliation was successfully completed by the [facility]. ASSESSMENT No Information TREATMENT PLAN No Information
--- OUTSIDE RECORDS SUMMARY | 2023-06-21 10:45 | XMS_ITS | Encounter Summary ---
Author Name Unknown Organization [facility] Address [facility] [place] [address] Encounter Details Date Type Department Care Team Description 2023-03-02 Telephone [facility] [address] [place] [address] Eneida Owens Medication Reconciliation was successfully completed by the [facility]. ASSESSMENT No Information TREATMENT PLAN No Information
--- OUTSIDE RECORDS SUMMARY | 2023-06-21 10:45 | XMS_ITS | Encounter Summary ---
Author Name Unknown Organization [facility] Address [facility] [place] [address] Encounter Details Date Type Department Care Team Description 2023-01-07 Telephone [facility] [address] [place] [address] Pepito Glasgow The [facility] care team was unable to complete a Medication Reconciliation with the patient following discharge. ASSESSMENT No Information TREATMENT PLAN No Information
--- OUTSIDE RECORDS SUMMARY | 2023-06-21 10:45 | XMS_ITS | Encounter Summary ---
Author Name Unknown Organization [facility] Address [facility] [place] [address] Encounter Details Date Type Department Care Team Description 2023-02-03 Telephone [facility] [address] [place] [address] Meliza Owens Medication Reconciliation was successfully completed by the [facility]. ASSESSMENT No Information TREATMENT PLAN No Information
--- OUTSIDE RECORDS SUMMARY | 2023-06-21 10:45 | XMS_ITS | Encounter Summary ---
Author Name Unknown Organization [facility] Address [facility] [place] [address] Encounter Details Date Type Department Care Team Description 2023-03-03 Telephone [facility] [address] [place] [address] Meliza Owens Medication Reconciliation was successfully completed by the [facility]. ASSESSMENT No Information TREATMENT PLAN No Information
--- OUTSIDE RECORDS SUMMARY | 2023-06-21 10:45 | XMS_ITS | Encounter Summary ---
Author Name Unknown Organization [facility] Address [facility] [place] [address] Encounter Details Date Type Department Care Team Description 2023-02-26 Telephone [facility] [address] [place] [address] Meliza Nelson The [facility] care team was unable to complete a Medication Reconciliation with the patient following discharge. ASSESSMENT No Information TREATMENT PLAN No Information
--- OUTSIDE RECORDS SUMMARY | 2023-06-21 10:45 | XMS_ITS | Encounter Summary ---
Author Name Unknown Organization [facility] Address [facility] [place] [address] Encounter Details Date Type Department Care Team Description 2023-04-16 Telephone [facility] [address] [place] [address] Charley Owens Medication Reconciliation was successfully completed by the [facility]. ASSESSMENT No Information TREATMENT PLAN No Information
--- OUTSIDE RECORDS SUMMARY | 2023-06-21 10:45 | XMS_ITS | Encounter Summary ---
Author Name Unknown Organization [facility] Address [facility] [place] [address] Encounter Details Date Type Department Care Team Description 2023-04-16 Telephone [facility] [address] [place] [address] Charley Owens Medication Reconciliation was successfully completed by the [facility]. ASSESSMENT No Information TREATMENT PLAN No Information
--- OUTSIDE RECORDS SUMMARY | 2023-06-21 10:45 | XMS_ITS | Encounter Summary ---
Author Name Unknown Organization [facility] Address [facility] [place] [address] Encounter Details Date Type Department Care Team Description 2023-03-31 Telephone [facility] [address] [place] [address] Han Owens Medication Reconciliation was successfully completed by the [facility]. ASSESSMENT No Information TREATMENT PLAN No Information
--- OUTSIDE RECORDS SUMMARY | 2023-06-21 10:45 | XMS_ITS | Continuity of Care Document ---
Author Name Unknown Organization [facility] ter Address [address] [place] [id number]- Care Team Providers Care New Business Clerk Name Role Phone Not on Staff, PCP Primary Care Physician Unavail able [place] [facility] [place] - 03/09/[address] [address]- Encounter Diagnosis Trauma(Final) - 03/06/23 Discharge Disposition: A-D/C Home Attending Physician: Clive Sanchez DO Admitting Physician: Darnell Alfaro MD Referring Physician: Not on Staff, Referring MD Allergies, Adverse Reactions, Alerts No Known Allergies Medications allopurinol 100 mg oral tablet 100 mg, 1, tablet, By Mouth, Daily, # 90 tablet, Refills 0, Maintenance, 03/07/23 10:04:00 EDT, Partial fill upon patient request if the prescription is for a schedule II opioid drug. Start Date: 03/07/23 Stop Date: 04/06/23 Status: Ordered atorvastatin 40 mg oral tablet 1 tablet = 40 mg, By Mouth, Daily, # 30 tablet, Maintenance, 03/07/23 10:09:00 EDT, Tablet, Partialfill upon patient request if the prescription is for a schedule II opioid drug. Start Date: 03/07/23 Stop Date: 04/06/23 Status: Ordered citalopram 20 mg oral tablet 20 mg, 1, tablet, By Mouth, Daily, # 30 tablet, Refills 0, Maintenance, 03/07/23 10:07:00 EDT, Partial fill upon patient request if the prescription is for a schedule II opioid drug. Start Date: 03/07/23 Stop Date: 04/06/23 Status: Ordered gabapentin 100 mg oral capsule 100 mg, 1, capsule, By Mouth, 3 times a day, # 90 capsule, Refills 0, Maintenance, 03/07/23 10:07:00 EDT, Partial fill upon patient request if the prescription is for a schedule II opioid drug. Start Date: 03/07/23 Stop Date: 04/06/23 Status: Ordered Lasix 40 mg oral tablet 40 mg, 1, tablet, By Mouth, Daily, # 30 tablet, Refills 0, Maintenance, 03/07/23 10:01:00 EDT, Partial fill upon patient request if the prescription is for a schedule II opioid drug. Start Date: 03/07/23 Status: Ordered levothyroxine 0.1 mg oral tablet 1 tablet = 100 mcg, By Mouth, Daily, on an empty stomach, tablet, 0 Refills, Maintenance, 03/07/23 10:05:00 EDT, Tablet, Partial fill upon patient request if the prescription is for a schedule II opioid drug. Start Date: 03/07/23 Stop Date: 04/06/23 Status: Ordered metoprolol 25 mg oral tablet, extended release 25 mg, XL Tablet, By Mouth, 03/09/23 9:00:00 EDT Start Date: 03/09/23 Stop Date: 03/09/23 Status: Completed metoprolol 25 mg oral tablet, extended release 25 mg, 1, tablet, By Mouth, Daily, # 30 tablet, Refills 0, Maintenance, 03/07/23 10:02:00 EDT, Partial fill upon patient request if the prescription is for a schedule II opioid drug. Start Date: 03/07/23 Stop Date: 04/06/23 Status: Ordered oxyCODONE 5 mg oral tablet 2.5 mg, Tablet, By Mouth, Every 6 hours, PRN for Pain , Moderate, Routine, 03/07/23 12:03:00 EDT Start Date: 03/07/23 Stop Date: 03/10/23 Status: Discontinued ranolazine 500 mg oral tablet, extended release 1 tablet = 500 mg, By Mouth, Daily in AM, # 60 tablet, 0 Refills, Maintenance, 03/07/23 10:09:00 EDT, ER Tablet, Partial fill upon patient request if the prescription is for a schedule II opioid drug. Start Date: 03/07/23 Stop Date: 04/06/23 Status: Ordered sodium bicarbonate 650 mg oral tablet 3 tablet = 1,950 mg, By Mouth, Daily, # 60 tablet, 0 Refills, Maintenance, 03/07/23 10:04:00 EDT, Tablet, Partial fill upon patient request if the prescription is for a schedule II opioid drug. Start Date: 03/07/23 Status: Ordered Results Radiology Reports * Exam Date Time Procedure Performing Provider Status 03/08/23 5:30 PM Elbow Min 3 Views Right Yomaira Hughes; Auth (Verified) Notes: (Elbow Min 3 Views Right) Reason For Exam: Foreign Body RESULT: Elbow Min 3 Views Right Elbow Min 3 Views Right, 3 views Reason: Foreign Body; Clinical Question(s): Foreign Body COMPARISON: Right upper extremity venous ultrasound from 03/08/2023. FINDINGS: Osteopenia. No fracture or dislocation. No arthritic changes. No joint effusion. Multiple surgical clips are appreciated within the antecubital fossa. Some soft tissue swelling of the arm. IMPRESSION: No acute osseous abnormality. Multiple surgical clips are appreciated within the antecubital fossa, at least one of which likely corresponds to radiopaque density described on prior ultrasound. WSN: [id number] Ordering Physician: Brian Garzon Dictated By: Giacomo Jj MD Dictated Date/Time: 03/08/23 5:57 pm Reviewed By: Giacomo Jj MD Signed By: Giacomo Jj MD Signed Date/Time: 03/08/23 5:57 pm Transcribed By: VALOD Transcribed Date/Time: 03/08/23 5:55 pm * Exam Date Time Procedure Performing Provider Status 03/08/23 1:25 PM US Doppler Ext Upper Venous Right Estelle Morton; Auth (Verified) Notes: (US Doppler Ext Upper Venous Right) Reason For Exam: Pain/Tenderness Extremities RESULT: US Doppler Ext Upper Venous Right US Doppler Ext Upper Venous Right Reason: Pain Tenderness Extremities; Clinical Question(s): Thrombosis COMPARISON: None. IMAGING TECHNIQUE: Ultrasound examination of the upper extremity deep venous system was performed using grayscale, color, and spectral wave analysis including response to compression. Assessment includes the contralateral jugular and subclavian vein. FINDINGS: Internal jugular vein: Patent. No thrombosis. Subclavian vein: Patent. No thrombosis. Axillary vein: Patent. No thrombosis. Brachial vein: Patent. No thrombosis. Basilic vein: Patent. No thrombosis. Cephalic vein: Some short segment (5 mm) nonocclusive thrombus within the distal right cephalic vein. In the more distal aspect of the cephalic vein at antecubital fossa, is a linear echogenic focus along the posterior lumen anterolateral wall of the cephalic vein measuring 3.6 mm in length (image [id number]). Contralateral internal jugular vein: Patent. No thrombosis. Contralateral subclavian vein: Patent. No thrombosis. Other: Edema in the right upper extremity. IMPRESSION: Short segment nonocclusive thrombus within the distal right cephalic vein, a superficial vein in the arm. No evidence of deep venous thrombosis. There is a thin 3.6 mm echogenic focus along the posterior wall of the right cephalic vein at the antecubital fossa, distal to the area of clot. Etiology of which is uncertain. Please consider follow-up right elbow radiograph in order to exclude radiopaque foreign body. Findings were communicated to Dr. Garzon by phone at 1409 on 03/08/2023. WSN: [id number] Ordering Physician: Brian Garzon Dictated By: Giacomo Jj MD Dictated Date/Time: 03/08/23 2:09 pm Reviewed By: Giacomo Jj MD Signed By: Giacomo Jj MD Signed Date/Time: 03/08/23 2:09 pm Transcribed By: VALDO Transcribed Date/Time: 03/08/23 1:48 pm * Exam Date Time Procedure Performing Provider Status 03/07/23 11:00 AM Cervical Spine 3 Views or Less Zeinab Rainey; Nate (Verified) Notes: (Cervical Spine 3 Views or Less) Reason For Exam: need Ex-Flex study. cannot r/o c-spine injury despite negative c-spine CT;Trauma RESULT: Cervical Spine 3 Views or Less Cervical Spine 3 Views or Less Reason: Trauma; need Ex-Flex study. cannot r o c-spine injury despite negative c-spine CT; ClinicalQuestion(s): Fracture Dislocation; Special Instructions: Ex- flex study COMPARISON: None. FINDINGS: No bone lesions or fractures. Normal odontoid and C1/2 relationship. There is fusion of C4-C7 vertebral bodies. There is no abnormal motion on extension and flexion views Normal prevertebral soft tissues and clear lung apices. IMPRESSION: No definite fracture. Fusion of C4-C7 vertebral bodies. If the patient's symptoms persist, considerMRI. WSN: [id number] Ordering Physician: Anjum Oliveira Dictated By: Theo Richards MD Dictated Date/Time: 03/07/23 11:08 a Reviewed By: Theo Richards MD Signed By: Theo Richards MD Signed Date/Time: 03/07/23 11:08 am Transcribed By: VALDO Transcribed Date/Time: 03/07/23 11:06 am * Exam Date Time Procedure Performing Provider Status 03/06/23 6:[address] Abd/Pelvis W/ IV Contrast Only Mildred Miguel; Auth (Verified) Notes: (CT Abd/Pelvis W/ IV Contrast Only) Reason For Exam: Abd trauma, blunt;Other: RESULT: CT Abd/Pelvis W/ IV Contrast Only CT Chest W/ Contrast, CT Abd/Pelvis W/ IV Contrast Only INDICATION: Injured in a fall. Whole-body pain. COMPARISON: No prior examination. TECHNIQUE: Helical contrast -enhanced CT of the chest, abdomen, and pelvis was performed from the lung apex to the ischial tuberosity. 100 cc of Omnipaque 300 was administered intravenously. Images were reconstructed in axial, coronal, and sagittal planes. Weight-based protocol using automatic tube modulation was used to optimize exposure parameters. RADIATION DOSE PARAMETERS: CTDIvol Body: 16.60 mGy, DLP Body: 1130 mGy*cm. FINDINGS: FLIGHT DISPATCHER VIEW FINDINGS, LINES AND TUBES: None.. TRACHEA AND MAINSTEM BRONCHI: Patent without evidence of tracheal or endobronchial lesion. LUNGS AND PLEURA: Numerous small cystic foci peripherally lobes of the lung. No mass, nodule, or consolidation. No pleural effusion or pneumothorax. AORTA: No thoracic aortic aneurysm or dissection MEDIASTINUM AND LAUREANO: The heart is of normal size. No pericardial effusion. Moderate coronary artery calcification. Several mildly enlarged mediastinal lymph nodes are present measuring up to 9 mm in short axis.. There is no esophageal abnormality. BONES OF THE CHEST: There is no thoracic spine compression fracture. No fracture ribs or sternum.. DIAPHRAGM: Unremarkable. LIVER: No significant focal abnormality. 20 mm simple cyst left lobe. PORTAL VENOUS SYSTEM: No thrombosis involving the portal, splenic or superior mesenteric veins. GALLBLADDER: Normal size. Probable 12 mm noncalcified stone.. BILE DUCTS: There is no biliary dilatation. SPLEEN: Normal size. Solitary 9 mm low-density abnormality to small to characterize.. PANCREAS: Severe atrophy.. ADRENAL GLANDS: Normal. KIDNEYS AND URETERS: Right Kidney: Atrophy. 5 cm cyst.. Left Kidney: Small areas of scarring. Otherwise normal.. BLADDER: Normal. STOMACH, SMALL BOWEL AND LARGE BOWEL: Stomach: Normal. Small Bowel: No small bowel dilatation or gross inflammatory change Large Bowel: No large bowel dilatation or gross inflammatory change. No constipation. Sigmoid diverticulosis. APPENDIX: Not identified. REPRODUCTIVE/PELVIC ORGANS: No pelvic mass or fluid collection. PERITONEUM, RETROPERITONEUM, OMENTUM AND MESENTERY: There is no free air. . There is no ascites. LYMPH NODES: No enlarged lymph nodes AORTA AND ILIAC VESSELS: No evidence of abdominal aortic or iliac artery aneurysm . ABDOMINAL WALL: Fat-containing umbilical hernia. BONES OF THE ABDOMEN AND PELVIS: There is no compression fracture. There is no spondylolysis or spondylolisthesis. No fracture bony pelvis or proximal femurs. IMPRESSION: CHEST 1. Chronic appearing peripheral mostly peripheral cystic lung disease which could represent UIP pattern of chronic interstitial disease, paraseptal emphysema, or combination of these. 2. No superimposed acute pulmonary or pleural abnormality. 3. There are multiple mildly enlarged mediastinal lymph nodes. 4. No fracture.. ABDOMEN AND PELVIS 1. No acute soft tissue abnormality in the abdomen.. 2. No fracture. WSN: [id number] Ordering Physician: Lissette Adams Dictated By: Christian Mayer MD Dictated Date/Time: 03/06/23 7:30 pm Reviewed By: Christian Mayer MD Signed By: Christian Mayer MD Signed Date/Time: 03/06/23 7:30 pm Transcribed By: VALDO Transcribed Date/Time: 03/06/23 7:09 pm * Exam Date Time Procedure Performing Provider Status 03/06/23 6:[address] Chest W/ Contrast Mildred Cloud ; Auth (Verified) Notes: (CT Chest W/ Contrast) Reason For Exam: Chest trauma, blunt;Other: RESULT: CT Chest W/ Contrast CT Chest W/ Contrast, CT Abd/Pelvis W/ IV Contrast Only INDICATION: Injured in a fall. Whole-body pain. COMPARISON: No prior examination. TECHNIQUE: Helical contrast -enhanced CT of the chest, abdomen, and pelvis was performed from the lung apex to the ischial tuberosity. 100 cc of Omnipaque 300 was administered intravenously. Images were reconstructed in axial, coronal, and sagittal planes. Weight-based protocol using automatic tube modulation was used to optimize exposure parameters. RADIATION DOSE PARAMETERS: CTDIvol Body: 16.60 mGy, DLP Body: 1130 mGy*cm. FINDINGS: FLIGHT DISPATCHER VIEW FINDINGS, LINES AND TUBES: None.. TRACHEA AND MAINSTEM BRONCHI: Patent without evidence of tracheal or endobronchial lesion. LUNGS AND PLEURA: Numerous small cystic foci peripherally lobes of the lung. No mass, nodule, or consolidation. No pleural effusion or pneumothorax. AORTA: No thoracic aortic aneurysm or dissection MEDIASTINUM AND LAUREANO: The heart is of normal size. No pericardial effusion. Moderate coronary artery calcification. Several mildly enlarged mediastinal lymph nodes are present measuring up to 9 mm in short axis.. There is no esophageal abnormality. BONES OF THE CHEST: There is no thoracic spine compression fracture. No fracture ribs or sternum.. DIAPHRAGM: Unremarkable. LIVER: No significant focal abnormality. 20 mm simple cyst left lobe. PORTAL VENOUS SYSTEM: No thrombosis involving the portal, splenic or superior mesenteric veins. GALLBLADDER: Normal size. Probable 12 mm noncalcified stone.. BILE DUCTS: There is no biliary dilatation. SPLEEN: Normal size. Solitary 9 mm low-density abnormality to small to characterize.. PANCREAS: Severe atrophy.. ADRENAL GLANDS: Normal. KIDNEYS AND URETERS: Right Kidney: Atrophy. 5 cm cyst.. Left Kidney: Small areas of scarring. Otherwise normal.. BLADDER: Normal. STOMACH, SMALL BOWEL AND LARGE BOWEL: Stomach: Normal. Small Bowel: No small bowel dilatation or gross inflammatory change Large Bowel: No large bowel dilatation or gross inflammatory change. No constipation. Sigmoid diverticulosis. APPENDIX: Not identified. REPRODUCTIVE/PELVIC ORGANS: No pelvic mass or fluid collection. PERITONEUM, RETROPERITONEUM, OMENTUM AND MESENTERY: There is no free air. . There is no ascites. LYMPH NODES: No enlarged lymph nodes AORTA AND ILIAC VESSELS: No evidence of abdominal aortic or iliac artery aneurysm . ABDOMINAL WALL: Fat-containing umbilical hernia. BONES OF THE ABDOMEN AND PELVIS: There is no compression fracture. There is no spondylolysis or spondylolisthesis. No fracture bony pelvis or proximal femurs. IMPRESSION: CHEST 1. Chronic appearing peripheral mostly peripheral cystic lung disease which could represent UIP pattern of chronic interstitial disease, paraseptal emphysema, or combination of these. 2. No superimposed acute pulmonary or pleural abnormality. 3. There are multiple mildly enlarged mediastinal lymph nodes. 4. No fracture.. ABDOMEN AND PELVIS 1. No acute soft tissue abnormality in the abdomen.. 2. No fracture. WSN: [id number] Ordering Physician: Lissette Adams Dictated By: Christian Mayer MD Dictated Date/Time: 03/06/23 7:30 pm Reviewed By: Christian Mayer MD Signed By: Christian Mayer MD Signed Date/Time: 03/06/23 7:30 pm Transcribed By: VALDO Transcribed Date/Time: 03/06/23 7:09 pm Vital Signs Most recent to oldest [Reference Range]: 1 2 3 Weight 98.5 kg (03/09/23 5:00 AM) 91.0 kg (03/08/23 4:39 AM) 91.0 kg (03/07/23 9:26 PM) Oxygen Saturation [94-100 %] 94 % (03/09/23 5:20 PM) 93 % *L* (03/09/23 5:00 AM) 94 % (03/08/23 9:32 PM) Pulse Rate [55-90 bpm] 83 bpm (03/09/23 5:20 PM) 92 bpm *H* (03/09/23 8:44 AM) 91 bpm *H* (03/09/23 5:00 AM) Blood Pressure [90-138/55-84 mm Hg] 114/36mm Hg (03/09/23 5:20 PM) 124/57mm Hg (03/09/23 8:44 AM) 111/43mm Hg (03/09/23 5:00 AM) Respiratory Rate [16-30 br/min] 18 br/min (03/09/23 6:57 PM) 17 br/min (03/09/23 5:20 PM) 18 br/min (03/09/23 5:00 AM) Temperature [96.8-100.4 DegF] 97.6 DegF (03/09/23 5:20 PM) 98.0 DegF (03/09/23 5:00 AM) 97.6 DegF (03/08/23 9:32 PM) Liters per Minute 4 L/min (03/09/23 5:20 PM) 2 L/min (03/09/23 5:00 AM) 2 L/min (03/08/23 9:32 PM) Mode of Delivery (Oxygen) Nasal cannula (03/09/23 5:20 PM) Nasal cannula (03/09/23 5:00 AM) Nasal cannula (03/08/23 9:32 PM) Blood pressure sites Arm, left (03/09/23 5:20 PM) Arm, left (03/09/23 5:00 AM) Arm, left (03/08/23 9:32 PM) Temperature Route Oral (03/09/23 5:20 PM) Oral (03/09/23 5:00 AM) Oral (03/08/23 9:32 PM) Weight Obtained Via Bed scale (03/09/23 5:00 AM) Bed scale (03/08/23 4:39 AM) Bed scale (03/07/23 9:26 PM) Admission evaluation note * Ryann MCKEON, Brian: PERFORM Event Display: Admission Note Authored Date: Patient: ??LUDY ATKINS ? Age:??82 Years?Sex:??Female?:??1940?? History of Present Illness 82 year old female with a history of ESRD on dialysis , CHF, arthrosclerotic vascular disease, NSTEMI, right kidney mass, fibromyalgia, dyslipidemia, COPD on 4L NC at home, and anemia who initially presented to [facility] after a fall from standing around 8AM. Patient states that aroundthat time she felt weak in upper and lower extremities and fell. During her fall she did hit her head. She was subsequently transferred to [facility] in order to be evaluated by a neurosurgeon. At this time patient denies any focal tenderness. States she is often in pain secondary to her OA. She does have minimal neck pain. She was unable to get an MRI at outside facility due to spina l cord stimulator. Denies nausea or vomiting. She continues to feel weak without signs of numbness or tingling in the extremities. Patient states she is weak at baseline, in which it is normal for her to frequently drop items while she is holding them secondary to decreased surgeon partner strength. She does ambulate independently, though has frequent falls. No headaches or changes in vision. She denies shortness of breath, chest pain, fevers or chills. ? I saw and evaluated her in the ED Her vitals were normal.?? Complete blood count showed hemoglobin of 9.1 otherwise normal.?? Chemistry revealed urea/creatinine 54/4.2.?? She is on dialysis and missed Thursday.?? Renal consulted today,likely get dialysis today. On my examination she is not fluid overloaded. ?? I saw pt in ED ??Her vitals were normal.?? Complete blood count showed hemoglobin of 9.1 otherwise normal.?? Chemistry revealed urea/creatinine 54/4.2.?? She is on dialysis and missed Thursday.?? Renalconsulted today, likely get dialysis today. On my examination she is not fluid overloaded. ?? Trauma surgery evaluated, reviewed the imaging and recommended no acute intervention. CT chest and abdomen revailed 1. Chronic appearing peripheral mostly peripheral cystic lung disease which could represent UIP pattern of chronic interstitial disease, paraseptal emphysema, or combination of these. 2. No superimposed acute pulmonary or pleural abnormality. 3. There are multiple mildly enlarged mediastinal lymph nodes. 4. No fracture.. ABDOMEN AND PELVIS 1. No acute soft tissue abnormality in the abdomen.. 2. No fracture. She is wearing cervical color, since no fracture was noted , we can DC cervical color ?? Review of Systems Constitutional:??No weight loss, fever, chills, admits feeling of weak Allergy/Immune: Denies any??Eczema or hives Eyes:??No visual loss, blurred vision, double vision or yellow sclera ENT:??No hearing loss, sneezing, congestion, runny nose or sore throat. Respiratory:??No shortness of breath, cough or sputum production. Cardiovascular:??No chest pain, chest pressure or chest discomfort. No palpitations or pedal edema. Gastrointestinal:??No anorexia, nausea, vomiting or diarrhea. No abdominal pain or blood in stool. Genitourinary:??No burning micturition. No urinary frequency or incontinence. Neurologic:??No headache, dizziness, syncope, unilateral weakness, ataxia, numbness or tingling in the extremities. No change in bowel or bladder control. Musculoskeletal:??No muscle pain, back pain, joint pain or stiffness. Hematologic/Lymphatics:??No bleeding or bruising. No painful lymph nodes. Skin:??No rash or itching. Endocrine:??No reports of sweating. No cold or heat intolerance. No polyuria or polydipsia. Psychiatric:??No depression or anxiety. Objective ? Vital Signs?? Temperature: 98.2 DegF (03/06/23 20:00:00) Temperature Route: Oral (03/06/23 20:00:00) Pulse Rate: 80 bpm (03/07/23 11:50:00) Respiratory Rate: 18 br/min (03/07/23 11:50:00) Systolic Blood Pressure: 124 mm Hg (03/07/23 11:50:00) Diastolic Blood Pressure:??49 mm Hg??Low (03/07/23 11:50:00) Blood pressure sites: Arm, left (03/07/23 09:45:00) Mean Arterial Pressure: 74 mm Hg (03/07/23 06:29:00) Pulse Pressure: 64 mm Hg (03/07/23 06:29:00) Oxygen Saturation: 100 % (03/07/23 09:45:00) Liters per Minute: 4 L/min (03/07/23 09:45:00) Mode of Delivery (Oxygen): Nasal cannula (03/07/23 09:45:00) Early Warning Score: 0 (03/07/23 11:51:32) ? Perfusion Assessment Capillary Refill: < 3 seconds (03/07/23 07:53:00) Cardiac Rhythm: Normal sinus rhythm (03/06/23 20:00:00) Cardiovascular Assessment Status: Unchanged from recorder's assessment (03/07/23 06:29:00) Cardiovascular Comment: pt denies cp/tightness (03/06/23 20:00:00) Cardiovascular Symptoms: None (03/07/23 07:53:00) Nail Bed Color, Fingers: Mier (03/07/23 07:53:00) Skin Temperature Lower Extremities: Warm (03/07/23 07:53:00) Skin Temperature Upper Extremities: Warm (03/07/23 07:53:00) ? Pain Scores 1 - 10 Pain Scale Score: 5 (20:00) ? Intake/Output? No Data Available ?? Precautions No Precautions documented.? [place] Coma Scale Leti Coma Score: 15 (03/06/23 20:00:00) Motor Response-Adult: Obeys commands (03/06/23 20:00:00) Response Eye Opening: Spontaneously (03/06/23 20:00:00) Verbal Response-Adult: Oriented and converses (03/06/23 20:00:00) ? Mobility & Ambulation Level Mobility & Ambulation Level Ambulatory devices needed: Cane, Wheelchair (03/06/23) ? Physical Exam Constitutional: Alert, in no distress. Mental Status: Oriented to person, place and time. Head: Normocephalic. Eyes: Pupils are equal, round and reactive to light. Extraocular muscles intact. Ear, Nose and Throat: Oropharynx clear, mucous membranes moist. Ears and nose without masses, lesions or deformities. Trachea midline. Neck: cervical hard color in palce Respiratory: Clear to auscultation. No wheezing, rales or rhonchi. Cardiovascular: S1 S2 regular. No murmurs, rubs or gallops. Gastrointestinal: Abdomen soft, non-tender, non-distended. Normal bowel sounds. No pulsatile mass. No hepatosplenomegaly. Genitourinary: No costovertebral angle tenderness. Neurologic: Cranial nerves II-XII grossly intact. No focal neurological deficits. Flexor plantar response. Moves all extremities spontaneously. Sensation intact bilaterally. Skin: No rashes or lesions. No petechiae or purpura.?? Musculoskeletal: No cyanosis or clubbing. No gross deformities. Normal range of motion. Heme/Lymphatics/Immun: Palpation of neck reveals no swelling or tenderness of neck nodes. Palpationof groin reveals no swelling or tenderness of groin nodes. Psychiatric: Normal mood and affect Assessment/Plan Diagnoses ESRD (end stage renal disease) ??(N18.6) Trauma ??(T14.90XA) ?? #Fall and hit her head:?? She fell and hit her head , did not loose consciousness , presented to [place]??and transferred to [facility] for further management CT head at [place] show scattered chronic small vessel ischemic changes within the periventricular white matter. There was no evidence of acute territorial infarct or hemorrhage. There were no signs of cervical spine fracture or subluxation. cervical color for her cervical pain Trauma surgery evaluated and recommend no??acute intervention Will keep in tele for continuous lunchroom monitor Neuro check every 4 hrs? Chronic stable condition : ESRD on dialysis??: missed dialysis on thursday , renal on board , likely will get dialysis today CHF: on Lasix, atorvastatin , metoprolol , aspirin ?? arthrosclerotic vascular disease: atorvastatin NSTEMI,: aspirin , right kidney mass: monitoring fibromyalgia: gabapentin COPD on 4L NC at home: DuoNeb nebulization?? anemia : 9.1 stable Hb? Code : DNR/ DNI DVT??: heparin diet : regular OMN:??continuous cardiac monitoring, Dialysis ? Histories Allergies Allergies ?(Active and Proposed Allergies Only) NKA? (Severity: Unknown severity, Onset: Unknown) ? Past Medical History/Problem List No problems documented. ? Past Surgical History No surgery history documented. ? Social History No social history documented. ? Psychosocial History ? Family History No family history recorded. ? Travel History Travel Outside [facility]: No ?? Functional Assessments Ambulatory devices needed: Cane, Wheelchair ? History No previous pregnancies history have been recorded ?? Medications Home Medications Allopurinol (allopurinol 100 mg oral tablet)?100?Milligram?1?tablet?By Mouth?Daily?for 30?Days Atorvastatin (atorvastatin 40 mg oral tablet)?1?tab(s)?40?Milligram?By Mouth?Daily?for 30?Days Citalopram (citalopram 20 mg oral tablet)?20?Milligram?1?tablet?By Mouth?Daily?for 30?Days Furosemide (Lasix 40 mg oral tablet)?40?Milligram?1?tablet?By Mouth?Daily Gabapentin (gabapentin 100 mg oral capsule)?100?Milligram?1?capsule?By Mouth?3 times a day?for 30?Days Levothyroxine (levothyroxine 0.1 mg oral tablet)?1?tab(s)?100?Microgram?By Mouth?Daily?for 30?Days?on an empty stomach Metoprolol (metoprolol 25 mg oral tablet, extended release)?25?Milligram?1?tablet?ByMouth?Daily?for 30?Days ranolazine (ranolazine 500 mg oral tablet, extended release)?1?tab(s)?500?Milligram?By Mouth?Daily in AM?for 30?Days sodium bicarbonate (sodium bicarbonate 650 mg oral tablet)?3?tab(s)?1,950?Milligram?By Mouth?Daily ? Inpatient Medications Medications (12) Active SCHEDULED: (4) Furosemide 40 mg Tablet (Lasix 40 mg oral tablet) ??40 mg, By Mouth, Daily Heparin 5000 units/mL Inj (1 mL) (Heparin Inj) ??5,000 units 1 mL, Subcutaneous Injection, 2 times a day Metoprolol 25 mg XL Tablet (metoprolol 25 mg oral tablet, extended release) ??25 mg, By Mouth, Daily NaCl 0.9% Flush 3ml (NaCL 0.9% Flush) ??3 mL, IV Push, Every 8 hours CONTINUOUS: (0) PRN: (8) Acetaminophen 325 mg Tablet (Acetaminophen Tablet) ??650 mg, By Mouth, Every 4 hours Dextromethorphan-Guaifenesin 20 mg-200 mg/10 mL Liqu UD (Robitussin DM Liquid) ??10 mL, By Mouth, Every 4 hours Melatonin 3 mg Tablet (Melatonin Tablet) ??3 mg, By Mouth, Daily at bedtime NaCl 0.9% Flush 3ml (NaCL 0.9% Flush) ??3 mL, IV Push, Every 8 hours OxyCODONE 5 mg IR Tablet (oxyCODONE 5 mg oral tablet) ??2.5 mg, By Mouth, Every 6 hours Polyethylene Glycol 17 Gm Powder (MiraLax Powder) ??17 Gm 1 pack/packet, By Mouth, Daily Senna 8.6 mg / Docusate 50 mg tablet (Docusate/Senna Tablet) ??1 tablet, By Mouth, 2 times a day Simethicone 80 mg Chewable Tablet (Simethicone Tablet) ??80 mg, Chew, 3 times a day ? Durable Medical Equipment Ambulatory devices needed: Cane, Wheelchair (03/06/23) ? Results Recent Labs BLOOD BANK Blood Type A Positive ()?? 03/06/2023 18:25 Antibody Screen Negative ()?? 03/06/2023 18:25 ?? BLOOD COUNT & DIFF WBC 6.6 k/mm3 ()?? 03/06/2023 18:24 RBC 2.85 m/mm3 (Low)?? 03/06/2023 18:24 Hgb 9.1 Gm/dL (Low)?? 03/06/2023 18:24 Hct 28.5 % (Low)?? 03/06/2023 18:24 MCV 100.0 femtoliters ()?? 03/06/2023 18:24 MCH 31.9 pg ()?? 03/06/2023 18:24 MCHC 31.9 g/dL (Low)?? 03/06/2023 18:24 Platelet Count 210 k/mm3 ()?? 03/06/2023 18:24 RDW-SD 59.5 femtoliters (High)?? 03/06/2023 18:24 MPV 10.4 femtoliters ()?? 03/06/2023 18:24 Nucleated RBC (Automated) 0.0 #/100 WBC'S ()?? 03/06/2023 18:24 Abs. NRBC 0.0 k/mm3 ()?? 03/06/2023 18:24 Abs. Neut 3.1 k/mm3 ()?? 03/06/2023 18:24 Abs. Lymph 2.3 k/mm3 ()?? 03/06/2023 18:24 Abs. Lassen 0.5 k/mm3 ()?? 03/06/2023 18:24 Abs. Eo 0.8 k/mm3 (High)?? 03/06/2023 18:24 Abs. Baso 0.0 k/mm3 ()?? 03/06/2023 18:24 Neut % 46.3 % ()?? 03/06/2023 18:24 Lymph % 34.7 % ()?? 03/06/2023 18:24 Lassen % 7.0 % ()?? 03/06/2023 18:24 Eos % 11.5 % (High)?? 03/06/2023 18:24 Baso % 0.3 % ()?? 03/06/2023 18:24 Imm Gran 0.2 % ()?? 03/06/2023 18:24 Abs. Imm Gran 0.0 k/mm3 ()?? 03/06/2023 18:24 ?? CHEM GENERAL Sodium 138 mmol/L ()?? 03/06/2023 18:24 Potassium 4.3 mmol/L ()?? 03/06/2023 18:24 Chloride 100 mmol/L ()?? 03/06/2023 18:24 Bicarbonate Level 24 mmol/L ()?? 03/06/2023 18:24 Anion Gap 14 ()?? 03/06/2023 18:24 Glucose Level 87 mg/dL ()?? 03/06/2023 18:24 BUN 54 mg/dL (High)?? 03/06/2023 18:24 Creatinine-Blood 4.2 mg/dL (High)?? 03/06/2023 18:24 Estimated GFR Creatinine 8 ML/MIN/1.73 M2 ()?? 03/06/2023 18:24 Calcium 9.0 mg/dL ()?? 03/06/2023 18:24 Amylase 18 units/L (Low)?? 03/06/2023 18:24 Lactate 0.9 mmol/L ()?? 03/06/2023 18:24 ?? COAG INR 1.0 ()?? 03/06/2023 18:24 Protime (PT) 10.4 seconds ()?? 03/06/2023 18:24 APTT <22.0 seconds (Low)?? 03/06/2023 18:24 ?? MISC. CHEMISTRY Hold Red Top SPECIMEN DISCARDED AFTER 1 WEEK ()?? 03/06/2023 18:24 ?? SEROLOGY INF DISEASE Hepatitis B Surface Antigen NEGATIVE (N)?? 03/07/2023 09:47 Hepatitis C Ab NEGATIVE (N)?? 03/07/2023 09:47 Anti-HBS Quant 0 mIU/mL ()?? 03/07/2023 09:47 ?? TOXICOLOGY/TDM Ethanol, Serum or Plasma NONE DETECTED mg/dL ()?? 03/06/2023 18:24 ?? VIROLOGY COVID-19 PCR Specimen Source NASAL ()?? 03/06/2023 21:02 COVID-19 PCR Result NEGATIVE ()?? 03/06/2023 21:02 ? Abnormal Labs ?? BLOOD BANK ??Antibody Screen ??Negative () ??03/06/2023 18:25 ??Blood Type ??A Positive () ??03/06/2023 18:25 ? BLOOD COUNT & DIFF ??Abs. Eo ??0.8 k/mm3 (High) ??03/06/2023 18:24 ??Abs. Imm Gran ??0.0 k/mm3 () ??03/06/2023 18:24 ??Abs. NRBC ??0.0 k/mm3 () ??03/06/2023 18:24 ??Eos % ??11.5 % (High) ??03/06/2023 18:24 ??Hct ??28.5 % (Low) ??03/06/2023 18:24 ??Hgb ??9.1 Gm/dL (Low) ??03/06/2023 18:24 ??Imm Gran ??0.2 % () ??03/06/2023 18:24 ??MCHC ??31.9 g/dL (Low) ??03/06/2023 18:24 ??Nucleated RBC (Automated) ??0.0 #/100 WBC'S () ??03/06/2023 18:24 ??RBC ??2.85 m/mm3 (Low) ??03/06/2023 18:24 ??RDW-SD ??59.5 femtoliters (High) ??03/06/2023 18:24 ? CHEM GENERAL ??Amylase ??18 units/L (Low) ??03/06/2023 18:24 ??BUN ??54 mg/dL (High) ??03/06/2023 18:24 ??Creatinine-Blood ??4.2 mg/dL (High) ??03/06/2023 18:24 ??Estimated GFR Creatinine ??8 ML/MIN/1.73 M2 () ??03/06/2023 18:24 ? COAG ??APTT ??<22.0 seconds (Low) ??03/06/2023 18:24 ? MISC. CHEMISTRY ??Hold Red Top ??SPECIMEN DISCARDED AFTER 1 WEEK () ??03/06/2023 18:24 ? SEROLOGY INF DISEASE ??Anti-HBS Quant ??0 mIU/mL () ??03/07/2023 09:47 ??Hepatitis B Surface Antigen ??NEGATIVE (N) ??03/07/2023 09:47 ??Hepatitis C Ab ??NEGATIVE (N) ??03/07/2023 09:47 ? TOXICOLOGY/TDM ??Ethanol, Serum or Plasma ??NONE DETECTED mg/dL () ??03/06/2023 18:24 ? VIROLOGY ??COVID-19 PCR Specimen Source ??NASAL () ??03/06/2023 21:02 ??COVID-19 PCR Result ??NEGATIVE () ??03/06/2023 21:02 ? Note: Critical results are displayed in red. ? Blood Glucose Trend Glucose Level: 87 mg/dL (03/06/23 18:24:00) ? CBC, CBC w/Diff?? CBC?? Differential?? WBC: 6.6 k/mm3 (18:24) Abs. Neut: 3.1 k/mm3 (18:24) RBC:??2.85 m/mm3??Low (18:24) Abs. Lymph: 2.3 k/mm3 (18:24) Hct:??28.5 %??Low (18:24) Abs. Lassen: 0.5 k/mm3 (18:24) RDW-SD:??59.5 femtoliters??High (18:24) Abs. Eo:??0.8 k/mm3??High (18:24) Nucleated RBC (Automated): 0 #/100 WBC'S (18:24) Abs. Baso: 0 k/mm3 (18:24) Abs. NRBC: 0 k/mm3 (18:24) Neut %: 46.3 % (18:24) ?? Lymph %: 34.7 % (18:24) ?? Lassen %: 7 % (18:24) ?? Eos %:??11.5 %??High (18:24) ?? Baso %: 0.3 % (18:24) ?? Imm Gran: 0.2 % (18:24) ?? Abs. Imm Gran: 0 k/mm3 (18:24) ? Coagulation Profile APTT:??<22.0??Low (18:24) INR: 1 (18:24) Protime (PT): 10.4 seconds (18:24) ?? LFT Protime (PT): 10.4 seconds (18:24) ?? Urinalysis?? No qualifying data available. ?? Microbiology ?? COVID-19 (2019 Novel Coronavirus) PCR?? Completed?? Source: Nasopharyngeal Swab Body Site: Nasopharyngeal Collected Dt/Tm: 03/06/2023 18:19 Last Updated Dt/Tm: 03/06/2023 22:08 ? Imaging(s) ?CT Chest W/ Contrast ?? 03/06/2023 18:53??by Mayer MD, Christian D ?1. Chronic appearing peripheral mostly peripheral cystic lung disease which could represent UIP pattern of chronic interstitial disease, paraseptal emphysema, or combination of these. 2. No superimposed acute pulmonary or pleural abnormality. 3. There are multiple mildly enlarged mediastinal lymph nodes. 4. No fracture.. ? ABDOMEN AND PELVIS 1. No acute soft tissue abnormality in the abdomen.. ?? 2. No fracture. ?Cervical Spine 3 Views or Less ?? 03/07/2023 11:00??by Maurice MCKEON, [facility] ?No definite fracture. Fusion of C4-C7 vertebral bodies. If the patient's symptoms persist, consider MRI. ?CT Abd/Pelvis W/ IV Contrast Only ?? 03/06/2023 18:53??by Leyla MCKEON, Christian Coffman ?. Chronic appearing peripheral mostly peripheral cystic lung disease which could represent UIP pattern of chronic interstitial disease, paraseptal emphysema, or combination of these. 2. No superimposed acute pulmonary or pleural abnormality. 3. There are multiple mildly enlarged mediastinal lymph nodes. 4. No fracture.. ? ABDOMEN AND PELVIS 1. No acute soft tissue abnormality in the abdomen.. ?? 2. No fracture. ? * Lissette Adams MD: MODIFY, SIGN, VERIFY, PERFORM, MODIFY, MODIFY Event Display: Admission Note Authored Date: Patient: LUDY ATKINS Age: 82 years Sex: Female : 1940 Associated Diagnoses: None Author: Lissette Adams MD Trauma Activation Category: Category 2. Admission Information Attending Physician Certification of Inpatient Medical Necessity Estimated Duration of Hospitalization: 3-4 days. Plans for Posthospital Care: Home, Home with home health services. Trauma History 82yoF cat2 trauma s/p fall from standing. -LOC, -EtOH, GCS 15. Per EMS, transfer from [facility] after a fall for needs of higher level of care secondary to possible cervical myelopathy. Upon arrival, primary survey was completed and is as follows: airway patent, breath sounds present equal bilaterally, BP110/59, pupils 2mm and reactive, GCS 15 (E4 V5 M6). Secondary survey was completed and is documented below. [place] collar was placed for c-spine precaution. IV fluids were administered. Scans from [place] were uploaded to [facility] for evaluation. Reads did show scattered chronic small vessel ischemic changes within the periventricular white matter. There was no evidence of acute territorial infarct or hemorrhage. There were no signs of cervical spine fracture or subluxation. Patient was brought to CT scan for further imaging. History of Present Illness Patient is an 82 year old female with a history of ESRD, CHF, arthrosclerotic vascular disease, NSTEMI, right kidney mass, fibromyalgia, dyslipidemia, COPD on 4L NC at home, and anemia who initially presented to [facility] after a fall from standing around 8AM. Patient states that around that time she felt weak in upper and lower extremities and fell. During her fall she did hit her head. She was subsequently transferred to [facility] in order to be evaluated by a neurosurgeon. At this time patient denies any focal tenderness. States she is often in pain secondary to her OA. She does have minimal neck pain. She was unable to get an MRI at outside facility due to spin al cord stimulator. Denies nausea or vomiting. She continues to feel weak without signs of numbnessor tingling in the extremities. Patient states she is weak at baseline, in which it is normal for her to frequently drop items while she is holding them secondary to decreased surgeon partner strength. She doesambulate independently, though has frequent falls. No headaches or changes in vision. She denies shortness of breath, chest pain, fevers or chills. 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 Former cigarette smoker. Denies other drug use. Family History Family history reviewed: noncontributory. Review of Systems 12 point ROS completed. Negative unless otherwise stated in HPI/subjective. Physical Examination Vital Signs: T 97.7, BP 118/59, HR 74, RR 18, SpO2 95% on 4L General: agitated, alert, awake Head: normocephalic, atraumatic, no hematomas, no abrasions, no wounds, no deformities Face: no ecchymosis, no abrasions, no wounds Eyes: pupils are 2mm, equal, round, and reactive; extraocular movement intact Ears: no hemotympanum, no blood in external auditory canal, no abrasions, no jang's sign Nose: no epistaxis, no deformity Mandible: no deformity, no malocclusion Neck: cervical-collar in place, no hematoma, no ecchymosis, no wounds, trachea midline Chest: symmetric, no deformity, left anterior chest wall tenderness to palpation without crepitus, no clavicular tenderness to palpation Heart: regular rate and rhythm Lungs: clear to auscultation bilaterally Abdomen: soft, nondistended, diffuse abdominal tenderness, no wounds, no ecchymosis, no hematoma Pelvis: stable, nontender Back: no ecchymosis, no abrasions, no hematoma, no wounds Cervical spine: no midline deformities or stepoffs, no tenderness, cervical- collar in place Thoracic spine: no midline deformities or stepoffs, no tenderness Lumbar spine: no midline deformities or stepoffs, no tenderness Extremities: no long bone deformities, no wounds, no abrasions, no ecchymosis, no hematomas, full active range of motion Neurologic: GCS15; 3/5 strength and sensation to light touch intact in the bilateral upper and lower extremities Vascular: palpable dorsalis pedis and radial pulses bilaterally Results Review 7 day results Labs & Documents Laboratory : LABORATORY 03/06/2023 21:02 EDT COVID-19 PCR Specimen Source NASAL COVID-19 PCR Result NEGATIVE 03/06/2023 18:25 EDT Blood Type A Positive Antibody Screen Negative 03/06/2023 18:24 EDT WBC 6.6 k/mm3 RBC 2.85 m/mm3 L Hgb 9.1 Gm/dL L Hct 28.5 % L MCV 100.0 femtoliters MCH 31.9 pg MCHC 31.9 g/dL L Platelet Count 210 k/mm3 RDW-SD 59.5 femtoliters H MPV 10.4 femtoliters Nucleated RBC (Automated) 0.0 #/100 WBC'S Abs. NRBC 0.0 k/mm3 Abs. Neut 3.1 k/mm3 Abs. Lymph 2.3 k/mm3 Abs. Lassen 0.5 k/mm3 Abs. Eo 0.8 k/mm3 H Abs. Baso 0.0 k/mm3 Neut % 46.3 % Lymph % 34.7 % Lassen % 7.0 % Eos % 11.5 % H Baso % 0.3 % Imm Gran 0.2 % Abs. Imm Gran 0.0 k/mm3 INR 1.0 Protime (PT) 10.4 seconds APTT <22.0 seconds Sodium 138 mmol/L Potassium 4.3 mmol/L Chloride 100 mmol/L Bicarbonate Level 24 mmol/L Anion Gap 14 Glucose Level 87 mg/dL BUN 54 mg/dL H Creatinine-Blood 4.2 mg/dL H Estimated GFR Creatinine 8 ML/MIN/1.73 M2 Calcium 9.0 mg/dL Amylase 18 units/L L Lactate 0.9 mmol/L Ethanol, Serum or Plasma NONE DETECTED mg/dL Hold Red Top SPECIMEN DISCARDED AFTER 1 WEEK COVID-19 PCR Specimen Source NASAL COVID-19 PCR Result NEGATIVE RESULT: CT Chest W/ Contrast CT Chest W/ Contrast, CT Abd/Pelvis W/ IV Contrast Only INDICATION: Injured in a fall. Whole-body pain. COMPARISON: No prior examination. TECHNIQUE: Helical contrast -enhanced CT of the chest, abdomen, and pelvis was performed from the lung apex to the ischial tuberosity. 100 cc of Omnipaque 300 was administered intravenously. Images were reconstructed in axial, coronal, and sagittal planes. Weight-based protocol using automatic tube modulation was used to optimize exposure parameters. RADIATION DOSE PARAMETERS: CTDIvol Body: 16.60 mGy, DLP Body: 1130 mGy*cm. FINDINGS: FLIGHT DISPATCHER VIEW FINDINGS, LINES AND TUBES: None.. TRACHEA AND MAINSTEM BRONCHI: Patent without evidence of tracheal or endobronchial lesion. LUNGS AND PLEURA: Numerous small cystic foci peripherally lobes of the lung. No mass, nodule, or consolidation. No pleural effusion or pneumothorax. AORTA: No thoracic aortic aneurysm or dissection MEDIASTINUM AND LAUREANO: The heart is of normal size. No pericardial effusion. Moderate coronary artery calcification. Several mildly enlarged mediastinal lymph nodes are present measuring up to 9 mm in short axis.. There is no esophageal abnormality. BONES OF THE CHEST: There is no thoracic spine compression fracture. No fracture ribs or sternum.. DIAPHRAGM: Unremarkable. LIVER: No significant focal abnormality. 20 mm simple cyst left lobe. PORTAL VENOUS SYSTEM: No thrombosis involving the portal, splenic or superior mesenteric veins. GALLBLADDER: Normal size. Probable 12 mm noncalcified stone.. BILE DUCTS: There is no biliary dilatation. SPLEEN: Normal size. Solitary 9 mm low-density abnormality to small to characterize.. PANCREAS: Severe atrophy.. ADRENAL GLANDS: Normal. KIDNEYS AND URETERS: Right Kidney: Atrophy. 5 cm cyst.. Left Kidney: Small areas of scarring. Otherwise normal.. BLADDER: Normal. STOMACH, SMALL BOWEL AND LARGE BOWEL: Stomach: Normal. Small Bowel: No small bowel dilatation or gross inflammatory change Large Bowel: No large bowel dilatation or gross inflammatory change. No constipation. Sigmoid diverticulosis. APPENDIX: Not identified. REPRODUCTIVE/PELVIC ORGANS: No pelvic mass or fluid collection. PERITONEUM, RETROPERITONEUM, OMENTUM AND MESENTERY: There is no free air. . There is no ascites. LYMPH NODES: No enlarged lymph nodes AORTA AND ILIAC VESSELS: No evidence of abdominal aortic or iliac artery aneurysm . ABDOMINAL WALL: Fat-containing umbilical hernia. BONES OF THE ABDOMEN AND PELVIS: There is no compression fracture. There is no spondylolysis or spondylolisthesis. No fracture bony pelvis or proximal femurs. IMPRESSION: CHEST 1. Chronic appearing peripheral mostly peripheral cystic lung disease which could represent UIP pattern of chronic interstitial disease, paraseptal emphysema, or combination of these. 2. No superimposed acute pulmonary or pleural abnormality. 3. There are multiple mildly enlarged mediastinal lymph nodes. 4. No fracture. RESULT: CT Abd/Pelvis W/ IV Contrast Only CT Chest W/ Contrast, CT Abd/Pelvis W/ IV Contrast Only INDICATION: Injured in a fall. Whole-body pain. COMPARISON: No prior examination. TECHNIQUE: Helical contrast -enhanced CT of the chest, abdomen, and pelvis was performed from the lung apex to the ischial tuberosity. 100 cc of Omnipaque 300 was administered intravenously. Images were reconstructed in axial, coronal, and sagittal planes. Weight-based protocol using automatic tube modulation was used to optimize exposure parameters. RADIATION DOSE PARAMETERS: CTDIvol Body: 16.60 mGy, DLP Body: 1130 mGy*cm. FINDINGS: FLIGHT DISPATCHER VIEW FINDINGS, LINES AND TUBES: None.. TRACHEA AND MAINSTEM BRONCHI: Patent without evidence of tracheal or endobronchial lesion. LUNGS AND PLEURA: Numerous small cystic foci peripherally lobes of the lung. No mass, nodule, or consolidation. No pleural effusion or pneumothorax. AORTA: No thoracic aortic aneurysm or dissection MEDIASTINUM AND LAUREANO: The heart is of normal size. No pericardial effusion. Moderate coronary artery calcification. Several mildly enlarged mediastinal lymph nodes are present measuring up to 9 mm in short axis.. There is no esophageal abnormality. BONES OF THE CHEST: There is no thoracic spine compression fracture. No fracture ribs or sternum.. DIAPHRAGM: Unremarkable. LIVER: No significant focal abnormality. 20 mm simple cyst left lobe. PORTAL VENOUS SYSTEM: No thrombosis involving the portal, splenic or superior mesenteric veins. GALLBLADDER: Normal size. Probable 12 mm noncalcified stone.. BILE DUCTS: There is no biliary dilatation. SPLEEN: Normal size. Solitary 9 mm low-density abnormality to small to characterize.. PANCREAS: Severe atrophy.. ADRENAL GLANDS: Normal. KIDNEYS AND URETERS: Right Kidney: Atrophy. 5 cm cyst.. Left Kidney: Small areas of scarring. Otherwise normal.. BLADDER: Normal. STOMACH, SMALL BOWEL AND LARGE BOWEL: Stomach: Normal. Small Bowel: No small bowel dilatation or gross inflammatory change Large Bowel: No large bowel dilatation or gross inflammatory change. No constipation. Sigmoid diverticulosis. APPENDIX: Not identified. REPRODUCTIVE/PELVIC ORGANS: No pelvic mass or fluid collection. PERITONEUM, RETROPERITONEUM, OMENTUM AND MESENTERY: There is no free air. . There is no ascites. LYMPH NODES: No enlarged lymph nodes AORTA AND ILIAC VESSELS: No evidence of abdominal aortic or iliac artery aneurysm . ABDOMINAL WALL: Fat-containing umbilical hernia. BONES OF THE ABDOMEN AND PELVIS: There is no compression fracture. There is no spondylolysis or spondylolisthesis. No fracture bony pelvis or proximal femurs. IMPRESSION: CHEST 1. Chronic appearing peripheral mostly peripheral cystic lung disease which could represent UIP pattern of chronic interstitial disease, paraseptal emphysema, or combination of these. 2. No superimposed acute pulmonary or pleural abnormality. 3. There are multiple mildly enlarged mediastinal lymph nodes. 4. No fracture.. ABDOMEN AND PELVIS 1. No acute soft tissue abnormality in the abdomen.. 2. No fracture. Procedure FAST Exam Normal - no fluid x 4 quadrants. Consultation Information None Impression and Plan 82yoF cat2 trauma s/p fall from standing. -LOC, -EtOH, GCS 15. Per EMS, transfer from [facility] after a fall for needs of higher level of care secondary to possible cervical myelopathy Injuries None Interventions None Consultants None Plan Medicine admit for workup of syncope Clear C-collar in AM; MRI if unable to clear Tert in AM Code status: DNR/DNI Discussed with Dr. Galvin Cardiology * Event Display: Cardiac Rhythm Strips Authored Date: Hospital Progress note * Roberto Carlos Bosch III, RN: PERFORM, SIGN, VERIFY Event Display: Progress Note Hospital Authored Date: Patient: LUDY ATKINS Age: 82 years Sex: Female : 1940 Associated Diagnoses: None Author: Roberto Carlos Bosch III, RN Findings Evaluation [facility] Dialysis Note Treatment: Patient received _3.5__ hour HD. Tx. (Per MD written/verbal orders). __1.3__ L fluid removed. Crit-line Hematocrit Reference of _28.5__ %, had - _13.3__ % Blood Volume change. _2.0__ K __2.5__Ca bath . Yes - Hemostasis achieved within expected time frame. If the goal is not reached why? Access: AVF Right Upper Arm Site assessment: __Swelling & discomfort reported by pt. from prev. procedures on access. Cannulated 15Gx2 w/ out difficulty No - Antibiotics given (see MAR for documentation). No - Blood products given (see task for documentation). No - Temporary access removed - (describe site assessment and dressing applied). No - Meds given (see MAR for documentation). No - Complications / complaints. If yes: Explain complication and interventions. Pt. appeared to rest comfortably & post HD Vital signs documented in flow sheet. See scanned HD Tx. form for further info. Yes - Unit notified patient is returning post Tx : No - Report called to unit. If yes: Document the Unit / RN & why?. * Tiffany Nolan: VERIFY, PERFORM, MODIFY, SIGN Event Display: Progress Note Hospital Authored Date: Patient: LUDY ATKINS Age: 82 years Sex: Female : 1940 Associated Diagnoses: None Author: Lance JOHNSON, Tiffany [facility] Progress Note Interval History No acute events Patient still having pain near her fistula, bruit and thrill ++ RUE with edema Patient seen and examined on HD, good pressures noted from AVF Physical Examination Vital Signs Vitals : VITALS 03/09/2023 5:00 EDT Weight 98.5 kg Weight lb/oz 217 lb 2 oz Temperature 98.0 DegF Temperature Route Oral Pulse Rate 91 bpm H Respiratory Rate 18 br/min Systolic Blood Pressure 111 mm Hg Diastolic Blood Pressure 43 mm Hg L Blood pressure sites Arm, left Pulse Pressure 68 mm Hg Oxygen Saturation 93 % L Liters per Minute 2 L/min Mode of Delivery (Oxygen) Nasal cannula . General Appearance NAD. Respiratory Lungs: CTA. Cardiac Cardiac: no M/G/R. Rhythms: RRR. Abdomen/GI Abdomen: soft. Extremities Extremities: RUE AVF with good bruit and thrill, proximal RUE with edema. No edema. Neurologic Alert & oriented x 3 . Results Review 7 Day Results Results Laboratory : LABORATORY 03/08/2023 6:00 EDT Sodium 138 mmol/L Potassium 3.6 mmol/L Chloride 97 mmol/L L Bicarbonate Level 29 mmol/L Anion Gap 12 Phosphorus 5.0 mg/dL H Magnesium 2.0 mg/dL Alkaline Phosphatase 111 units/L H AST (SGOT) 12 units/L ALT (SGPT) 9 units/L 03/08/2023 5:57 EDT WBC 6.6 k/mm3 RBC 2.73 m/mm3 L Hgb 8.5 Gm/dL L Hct 27.1 % L MCV 99.3 femtoliters MCH 31.1 pg MCHC 31.4 g/dL L Platelet Count 243 k/mm3 RDW-SD 60.2 femtoliters H MPV 10.2 femtoliters Nucleated RBC (Automated) 0.0 #/100 WBC'S Abs. NRBC 0.0 k/mm3 DUPLEX RUE IMPRESSION: Short segment nonocclusive thrombus within the distal right cephalic vein, a superficial vein in the arm. No evidence of deep venous thrombosis. There is a thin 3.6 mm echogenic focus along the posterior wall of the right cephalic vein at the antecubital fossa, distal to the area of clot. Etiology of which is uncertain. Please consider follow-up right elbow radiograph in order to exclude radiopaque foreign body. Impression and Plan Ms. Ludy Atkins is an 82-year-old with past medical history of ESRD with dialysis at [facility] schedule (started on iHD January 2023 via RUE AVF), obesity, HTN, T2DM, hyperuricemia, hypothyroidism, and COPD/Bronchitis (4L NC)??who presented 03/06/2023 after a fall from standing. 1. 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 Secondary Hyperparathyroidism Phos 5.0, Ca 8.1 PTH 283 4. 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 nonocclusive superficial thrombosis Plan: - HD on MWF schedule - Renal diet - Continue metoprolol 25 mg daily and Lasix 40 mg daily - Continue allopurinol 100mg daily - No intervention necessary for fistula, can use warm compresses and EMLA cream Thank you for the courtesy of this consult, RTANE will continue monitoring the patient along with you. Please do not hesitate to call us with any further questions Tiffany Lucas PA-C [facility], [address], [address] Available by [facility] * Lissa Branham RN: PERFORM, SIGN, VERIFY Event Display: Progress Note Hospital Authored Date: Patient: LUDY ATKINS Age: 82 years Sex: Female : 1940 Associated Diagnoses: None Author: Lissa Branham RN Findings Problem Related to Alteration in Safety : Alteration in Safety/new 03/09/2023 9:00 EDT Alteration in Safety Related to Other: Fall Goals & Outcomes, Safety Pt will remain safe & injury free Interventions, Safety Provide teaching as needed BH Goals/Interventions, Safety Yes Safety, Problem Start 03/06/2023 18:38 Reviewed plan with, Safety Patient Patient Progression, Safety Pt progressing according to plan . Falls Risk Assessment 03/09/2023 9:00 EDT Fall Elimination Nocturia, Frequency, Urgency Plan: Fall Elimination Monitor fluid intake & bladder & bowel activity Fall Agitation/Anxiety/Depression No impairment Fall Related Sign/Symptom/Condition None Fall Cognitive Limitations No impairment Fall Sensory and Physical Function Weak, Unsteady Gait, Requires Staff Assistance with Transfer, Requires the Use of an Assistive Device Plan: Fall Sensory and Physical Function Encourage safe activities to maintain strength & mobility Fall High Risk for Injury None of the above Total Falls Risk Score 14 Fall Risk Level High Risk Falls Prevention Plan for High Risk Ensure patient has yellow non-skid slippers, Activate bed exit alarm system, Evaluate footwear & ensure patient has non-skid slippers, Bed in lowest locked position, Provide patient/family falls prevention education, Place personal care items & call barros within reach, Check that needs are met to minimize attempts to get up, Hourly rounds, Ensure safe & uncluttered environment . Evaluation Patient is A&O x3. Denies c/p. SR on tele. On 4L NC, baseline from home. Plan ofr dialysis today and d/c home with services. Patient is aware of plan and comfortable with plan. Safety maintianed.Patient is able to make her needs known. . Discharge Information Case Management Discharge Plan : Case Management Discharge Plan Data 03/09/2023 15:10 EDT Discharge VNA/Hospice/Home Care [facility] Name of Agency #1 [facility] Service Categories #1 Physical Therapy, Alf Service Comments #1 Service Comments #1 Rehabilitation Discharge : Rehab Discharge Index 03/08/2023 8:50 EDT Comments on treatment indicated 82yoF cat2 transfer from [facility] s/p fall from standing. WBAT. Fall risk, PT for strengthening, bed mobility , transfer balance training, gait training. Recommended Rehab. Distance pt will ambulate >10ft/ RW Full chart review completed Yes Hospital course No definite fracture. Fusion of C4-C7 vertebral bodies. If the patient's symptoms persist, consider MRI. Other findings Barriers to discharge home c services include: decreased strength, decreased balance, decreased safety, and the inability to transfer or ambulate c AD independently and safely. Plan of care PT Gait training, Transfer training, Therapeutic exercise, Functional Activities, Balance training, Neuromuscular education Consult note * Han Bingham MD: PERFORM, SIGN, VERIFY Event Display: Consultation Note Authored Date: [id number] Patient: LUDY ATKINS Age: 82 years Sex: Female : 1940 Associated Diagnoses: None Author: Han Bingham MD [facility] Inpatient Nephrology Consultation Note Requesting Provider: Dr Brian Garzon Reason for Consult: ESRD management History of Present Illness Ms. Ludy Atkins is an 82-year-old with past medical history of ESRD with dialysis at [facility] schedule (started on iHD January 2023 via RUE AVF), obesity, HTN, T2DM, hyperuricemia, hypothyroidism, and COPD/Bronchitis (4L NC)??who presented 03/06/2023 after a fall from standing. Fall was a result of lower extremity weakness upon standing. She denies syncope. She was unable to get an MRI at outside facility due to spinal cord stimulator. She is now comfortably resting with C-Collar in place. The patient had been receiving care for her CKD in [place]. She followed [place], [place]. It was deemed she had CKD from intermediate NSAID use. Celebrex specifically for arthritis. Review of Systems Constitutional: No weight loss, fever, chills, weakness or fatigue. HEENT: No visual loss, blurred vision, double vision or yellow sclera. No hearing loss, sneezing, congestion, runny nose or sore throat. Skin: No rash or itching. Cardiovascular: No chest pain, chest pressure or chest discomfort. No palpitations or pedal edema. Respiratory: No shortness of breath, cough or sputum production. Gastrointestinal: Negative for nausea, vomiting & diarrhea. No abdominal pain or blood in stool. Genitourinary: No burning micturition. No urinary frequency or incontinence. Neurologic: No headache, dizziness, syncope, unilateral weakness, ataxia Musculoskeletal: No muscle pain, back pain, joint pain or stiffness. Hematologic: No bleeding or bruising. Lymphatics: No enlarged lymph nodes. Psychiatric: No depression or anxiety. Endocrine: No reports of sweating. No cold or heat intolerance. No polyuria or polydipsia. Health Status Allergies: Allergies (Active and Proposed Allergies Only) NKA (Severity: Unknown severity, Onset: Unknown) Past Medical History: ESRD Medications: Allopurinol (allopurinol 100 mg oral tablet) 100 Milligram 1 tablet By Mouth Daily for 30 Days Atorvastatin (atorvastatin 40 mg oral tablet) 1 tab(s) 40 Milligram By Mouth Daily for 30 Days Citalopram (citalopram 20 mg oral tablet) 20 Milligram 1 tablet By Mouth Daily for 30 Days Furosemide (Lasix 40 mg oral tablet) 40 Milligram 1 tablet By Mouth Daily Gabapentin (gabapentin 100 mg oral capsule) 100 Milligram 1 capsule By Mouth 3 times a day for 30 Days Levothyroxine (levothyroxine 0.1 mg oral tablet) 1 tab(s) 100 Microgram By Mouth Daily for 30 Days on an empty stomach Metoprolol (metoprolol 25 mg oral tablet, extended release) 25 Milligram 1 tablet By Mouth Daily for 30 Days ranolazine (ranolazine 500 mg oral tablet, extended release) 1 tab(s) 500 Milligram By Mouth Daily in AM for 30 Days sodium bicarbonate (sodium bicarbonate 650 mg oral tablet) 3 tab(s) 1,950 Milligram By Mouth Daily Social History: Lives with Family. Family History: No family history of ESRD Physical Examination Temperature No result Systolic Blood Pressure 124 (09:46) Diastolic Blood Pressure 49 (09:46) Pulse 81 (09:46) SpO2 100 (09:46) Respiratory Rate 18 (09:46) General: No acute distress HEENT: mucous membranes moist. Ccolar in place CV: Regular rate and rhythm. No murmurs, gallops, rubs Respiratory: All wallace clear to auscultation bilaterally. No wheezes, rales, rhonchi Abdominal: Soft, nontender. Bowel sounds noted : No suprapubic tenderness Extremities: No lower extremity edema. RUE AVF with bruit and thrill. Neuro: AAO x3. Results Review General results Today's results 03/06/2023 18:24 EDT WBC 6.6 k/mm3 RBC 2.85 m/mm3 L Hgb 9.1 Gm/dL L Hct 28.5 % L MCV 100.0 femtoliters MCH 31.9 pg MCHC 31.9 g/dL L Platelet Count 210 k/mm3 RDW-SD 59.5 femtoliters H MPV 10.4 femtoliters Nucleated RBC (Automated) 0.0 #/100 WBC'S Abs. NRBC 0.0 k/mm3 Abs. Neut 3.1 k/mm3 Abs. Lymph 2.3 k/mm3 Abs. Lassen 0.5 k/mm3 Abs. Eo 0.8 k/mm3 H Abs. Baso 0.0 k/mm3 Neut % 46.3 % Lymph % 34.7 % Lassen % 7.0 % Eos % 11.5 % H Baso % 0.3 % Imm Gran 0.2 % Abs. Imm Gran 0.0 k/mm3 INR 1.0 Protime (PT) 10.4 seconds APTT <22.0 seconds Sodium 138 mmol/L Potassium 4.3 mmol/L Chloride 100 mmol/L Bicarbonate Level 24 mmol/L Anion Gap 14 Glucose Level 87 mg/dL BUN 54 mg/dL H Creatinine-Blood 4.2 mg/dL H Estimated GFR Creatinine 8 ML/MIN/1.73 M2 Calcium 9.0 mg/dL Amylase 18 units/L L Lactate 0.9 mmol/L Ethanol, Serum or Plasma NONE DETECTED mg/dL Hold Red Top SPECIMEN DISCARDED AFTER 1 WEEK COVID-19 PCR Specimen Source NASAL COVID-19 PCR Result NEGATIVE Impression and Plan Ms. Ludy Atkins is an 82-year-old with past medical history of ESRD with dialysis at [facility] schedule (started on iHD January 2023 via RUE AVF), obesity, HTN, T2DM, hyperuricemia, hypothyroidism, and COPD/Bronchitis (4L NC)??who presented 03/06/2023 after a fall from standing. 1. ESRD Dialyzes via RUE AVF at [facility] Missed dialysis Thursday due to presentation to hospital for trauma. 2. Nephrogenic Anemia Hgb 9.1 Tsat 33 Ferritin 137 3. Secondary Hyperparathyroidism PTH 283 Phos 4.6 Ca 8.1 Plan: - HD today - HD thereafter on [facility] schedule - protect RUE - Renal diet - c/w losartan 25mg, metoprolol 12.5mg BID, - c/w allopurinol 100mg daily - Trauma work up - Syncope work up. Thank you for the courtesy of this consult, RTANE will continue monitoring the patient along with you please do not hesitate to call us with any further questions Han Bingham M.D. [facility] [address] , [address] Available by [employer] Note * Lissa Branham RN: PERFORM Event Display: Discharge/Transfer Note Hospital Authored Date: Nursing Discharge Note Entered On: 03/09/2023 19:55 EDT Performed On: 03/09/2023 19:54 EDT by Lissa Branham RN Nursing Discharge Note 2 Discharge Time : 03/09/2023 19:45 EDT Discharge Level of Care at Discharge : Homehealth/VNA Discharge VNA/Hospice/Home Care(v001) : [facility] Patient Left Unit Via : Ambulance Patient Accompanied Off Unit with : Responsible adult DC Instructions Provided & Signed by Pt : Yes Patient Understands D/C Instructions : Yes Patient Instructions Discharge Signed : Yes Did Pt have Specialty Bed or Wound Vac : No Lissa Branham RN - 03/09/2023 19:54 EDT * Clive Sanchez DO: PERFORM Event Display: Discharge/Transfer Note Hospital Authored Date: Patient: ??LUDY ATKINS ? Age:??82 Years?Sex:??Female?:??1940?? Patient Information Discharge Location: Primary Care Physician: Not on Staff, PCP Admit Date/Time: 03/07/23 00:20 Discharge Date:??03/09/2023 13:49 Discharge Disposition Discharge Disposition: Home with Home Health Discharge Diagnosis ESRD (end stage renal disease) (N18.6) Trauma (T14.90XA) ?? _ Discharge Medications Allopurinol (allopurinol 100 mg oral tablet)?100?Milligram?1?tablet?By Mouth?Daily?for 30?Days Atorvastatin (atorvastatin 40 mg oral tablet)?1?tab(s)?40?Milligram?By Mouth?Daily?for 30?Days Citalopram (citalopram 20 mg oral tablet)?20?Milligram?1?tablet?By Mouth?Daily?for 30?Days Furosemide (Lasix 40 mg oral tablet)?40?Milligram?1?tablet?By Mouth?Daily Gabapentin (gabapentin 100 mg oral capsule)?100?Milligram?1?capsule?By Mouth?3 times a day?for 30?Days Levothyroxine (levothyroxine 0.1 mg oral tablet)?1?tab(s)?100?Microgram?By Mouth?Daily?for 30?Days?on an empty stomach Metoprolol (metoprolol 25 mg oral tablet, extended release)?25?Milligram?1?tablet?ByMouth?Daily?for 30?Days ranolazine (ranolazine 500 mg oral tablet, extended release)?1?tab(s)?500?Milligram?By Mouth?Daily in AM?for 30?Days sodium bicarbonate (sodium bicarbonate 650 mg oral tablet)?3?tab(s)?1,950?Milligram?By Mouth?Daily ? Hospital Course ?? #Fall and hit her head:?? She fell and hit her head , did not loose consciousness , presented to [facility]??and transferred to [facility] for further management CT head at [facility] show scattered chronic small vessel ischemic changes within the periventricular white matter. There was no evidence of acute territorial infarct or hemorrhage. There were no signs of cervical spine fracture or subluxation. no events on tele seen by trauma, c collar removed PT recc rehab - she is refusing adamantly ?? # RT arm pain around the fistula She complained of pain after dialysis DVT negative on US upper limb XR also negative renal has addressed, recc emla cream and warm compresses ?? # orthostasis orthostasis positive stockings ordered pt refusing rehab as recommended ? Objective Vital Signs?? Temperature: 98 DegF (03/09/23 05:00:00) Temperature Route: Oral (03/09/23 05:00:00) Pulse Rate:??92 bpm??High (03/09/23 08:44:00) Respiratory Rate: 18 br/min (03/09/23 05:00:00) Systolic Blood Pressure: 124 mm Hg (03/09/23 08:44:00) Diastolic Blood Pressure: 57 mm Hg (03/09/23 08:44:00) Blood pressure sites: Arm, left (03/09/23 05:00:00) Mean Arterial Pressure: 69 mm Hg (03/08/23 21:32:00) Pulse Pressure: 68 mm Hg (03/09/23 05:00:00) Oxygen Saturation:??93 %??Low (03/09/23 05:00:00) Liters per Minute: 2 L/min (03/09/23 05:00:00) Mode of Delivery (Oxygen): Nasal cannula (03/09/23 05:00:00) Early Warning Score: 2 (03/09/23 08:47:53) ? . Physical Exam General:??NAD Head:??NCAT Eyes:??EOMI Ear, Nose and Throat:??MMM Respiratory:??CTA Cardiovascular:RRR Gastrointestinal:??soft nt nd Neurologic :alert and oriented ?? Consultants renal Pending Results Amphetamine Urine Screen ordered on 03/06/2023 B Type Natriuretic Peptide ordered on 03/07/2023 Barbiturate Urine Screen ordered on 03/06/2023 Benzodiazepine Urine Screen ordered on 03/06/2023 Cannabinoid Urine Screen ordered on 03/06/2023 Cocaine Urine Screen ordered on 03/06/2023 Electrolytes ordered on 03/09/2023 Hgb + Hct ordered on 03/09/2023 Opiate Screen Urine ordered on 03/06/2023 Follow-Up Appointments Added Follow Up ?Time Frame ?Comments Not on Staff, PCP Home Health Face to Face *Denotes mandatory wallace ?? *I certify that this patient is under my care and that I or an allowed non- physician working with me had a face to face encounter with the patient on this date:??03/09/2023 13:51 ?? *The encounter with the patient was in whole, or in part, for the following medical condition, which is the primary diagnosis(es) for home health care:??ESRD (end stage renal disease) (N18.6) Trauma (T14.90XA) ? *Select the indications for the discipline/s that are being arranged for this patient. Nursing (select all that apply): [_] None [x_] Medication management (reconciliation, teaching)?? [_] Chronic disease management?? [_] Wound care and treatment?? [_] Home safety evaluation [_] Administer SQ/IM/IV medications?? [_] Cath care?? [_] Drain care?? [_] Trach or GT care?? Other _ Occupation Therapy (select all that apply): [_] None [_] ADL Management [_] Fall prevention training [_] Energy conservation [_] Cognitive training Other _ Physical Therapy (select all that apply): [_] None [_x] Functional mobility training [_] Home exercise program to strengthen [_] Increase ROM?? [_] Falls prevention training [_] Home maintenance program for chronic disease Other _ Speech Therapy (select all that apply): [_] None [_] Swallow evaluation and training [_] Speech and language training [_] Cognitive training to process, organize, and/or recall information Other _ ? *Homebound due to (select all that apply): [x_] Inability to leave home without assistance/supervision [_] Inability to ambulate without assistance [_] Pain [_] Decreased strength and endurance [_] Unsteady gait [_] Severe SOB and fatigue [_] Impaired transfers [_] Inability to negotiate stairs [_] Limited weight bearing [_] Mental status change? *Physician Signature:SR _ ?? *By signing this, I certify that I have personally evaluated the patient and agree with the findings and recommendations as documented above. ? Results Discharge Labs BLOOD BANK Blood Type A Positive ()?? 03/06/2023 18:25 Antibody Screen Negative ()?? 03/06/2023 18:25 ?? BLOOD COUNT & DIFF WBC 6.6 k/mm3 ()?? 03/08/2023 05:57 RBC 2.73 m/mm3 (Low)?? 03/08/2023 05:57 Hgb 8.5 Gm/dL (Low)?? 03/08/2023 05:57 Hct 27.1 % (Low)?? 03/08/2023 05:57 MCV 99.3 femtoliters ()?? 03/08/2023 05:57 MCH 31.1 pg ()?? 03/08/2023 05:57 MCHC 31.4 g/dL (Low)?? 03/08/2023 05:57 Platelet Count 243 k/mm3 ()?? 03/08/2023 05:57 RDW-SD 60.2 femtoliters (High)?? 03/08/2023 05:57 MPV 10.2 femtoliters ()?? 03/08/2023 05:57 Nucleated RBC (Automated) 0.0 #/100 WBC'S ()?? 03/08/2023 05:57 Abs. NRBC 0.0 k/mm3 ()?? 03/08/2023 05:57 Abs. Neut 3.1 k/mm3 ()?? 03/06/2023 18:24 Abs. Lymph 2.3 k/mm3 ()?? 03/06/2023 18:24 Abs. Lassen 0.5 k/mm3 ()?? 03/06/2023 18:24 Abs. Eo 0.8 k/mm3 (High)?? 03/06/2023 18:24 Abs. Baso 0.0 k/mm3 ()?? 03/06/2023 18:24 Neut % 46.3 % ()?? 03/06/2023 18:24 Lymph % 34.7 % ()?? 03/06/2023 18:24 Lassen % 7.0 % ()?? 03/06/2023 18:24 Eos % 11.5 % (High)?? 03/06/2023 18:24 Baso % 0.3 % ()?? 03/06/2023 18:24 Imm Gran 0.2 % ()?? 03/06/2023 18:24 Abs. Imm Gran 0.0 k/mm3 ()?? 03/06/2023 18:24 ?? CHEM GENERAL Sodium 138 mmol/L ()?? 03/08/2023 06:00 Potassium 3.6 mmol/L ()?? 03/08/2023 06:00 Chloride 97 mmol/L (Low)?? 03/08/2023 06:00 Bicarbonate Level 29 mmol/L ()?? 03/08/2023 06:00 Anion Gap 12 ()?? 03/08/2023 06:00 Glucose Level 87 mg/dL ()?? 03/06/2023 18:24 BUN 54 mg/dL (High)?? 03/06/2023 18:24 Creatinine-Blood 4.2 mg/dL (High)?? 03/06/2023 18:24 Estimated GFR Creatinine 8 ML/MIN/1.73 M2 ()?? 03/06/2023 18:24 Calcium 9.0 mg/dL ()?? 03/06/2023 18:24 Phosphorus 5.0 mg/dL (High)?? 03/08/2023 06:00 Magnesium 2.0 mg/dL ()?? 03/08/2023 06:00 Alkaline Phosphatase 111 units/L (High)?? 03/08/2023 06:00 Amylase 18 units/L (Low)?? 03/06/2023 18:24 AST (SGOT) 12 units/L ()?? 03/08/2023 06:00 ALT (SGPT) 9 units/L ()?? 03/08/2023 06:00 Lactate 0.9 mmol/L ()?? 03/06/2023 18:24 ? COAG INR 1.0 ()?? 03/06/2023 18:24 Protime (PT) 10.4 seconds ()?? 03/06/2023 18:24 APTT <22.0 seconds (Low)?? 03/06/2023 18:24 ? MISC. CHEMISTRY Hold Red Top SPECIMEN DISCARDED AFTER 1 WEEK ()?? 03/06/2023 18:24 ? SEROLOGY INF DISEASE Hepatitis B Surface Antigen NEGATIVE (N)?? 03/07/2023 09:47 Hepatitis C Ab NEGATIVE (N)?? 03/07/2023 09:47 Anti-HBS Quant 0 mIU/mL ()?? 03/07/2023 09:47 ? TOXICOLOGY/TDM Ethanol, Serum or Plasma NONE DETECTED mg/dL ()?? 03/06/2023 18:24 ? VIROLOGY COVID-19 PCR Specimen Source NASAL ()?? 03/06/2023 21:02 COVID-19 PCR Result NEGATIVE ()?? 03/06/2023 21:02 ? Microbiology ?? COVID-19 (2019 Novel Coronavirus) PCR?? Completed?? Source: Nasopharyngeal Swab Body Site: Nasopharyngeal Collected Dt/Tm: 03/06/2023 18:19 Last Updated Dt/Tm: 03/06/2023 22:08 ? 35_ minutes spent on discharge * Lissa Branham RN: PERFORM Event Display: Patient Education/Instruction Authored Date: [id number] Inpatient Adult Discharge Instructions [address] [address] Name: LUDY ATKINS : 1940 Visit: 03/07/2023 00:20:00 Current Date: 03/09/2023 19:23 Account: [id number] Inpatient Adult Discharge Instructions We would like to thank you for allowing us to assist you with your healthcare needs. The following includes patient education materials and information regarding your injury/illness. Our entire staffstrives to provide an excellent experience for our patients and their families. PLEASE ENSURE YOU FOLLOW-UP PER THE INSTRUCTIONS BELOW! ?? YOUR OPINION IS IMPORTANT TO US! Please complete the survey you may receive by mail or email. Your feedback will be used to make improvements to the healthcare experiences of our patients and their families. Surveys are administered by [employer] ?? If further treatment with your primary care physician or another doctor is recommended, it is important for you to keep the appointment. Call your primary care physician or return to the Emergency Department immediately if your condition worsens, fails to improve, or new symptoms develop. If you need to find a doctor, you can call [facility] Link for a referral at [phone] or toll free at [phone]) or log in to [email or web address] ?? [facility], in keeping with [facility] guidance, no longer requires face masks for staff, patientsor visitors in most situations. Similiar to time spent indoors at other locations, there is the chance that you were exposed to repiratory viruses during your time with us (such as flu or COVID-19). If you develop symptoms concerning for a viral respiratory infection, please seek testing (and treatment if indicated) from your medical provider or home test kit. ?? You can view and manage your care through the patient portal or by using a health care pelon of your choosing. [employer] is a website that allows you to securely view your medical information including your hospital discharge summary, office visit summaries, medications and follow-up visits. You can also request appointments, renew medications, and request access to your medical information using a health care pelon of your choosing, or just ask a question. You can enroll at [email or web address] or register during your next office visit. You have been discharged from [facility], Patient Care Unit: M5. If you have any questions regarding these instructions after you leave, please call us and we will be happy to assist you. [facility] Your Care Team Attending Physician Clive Sanchez DO Consulting Providers Destiny MCKEON, Lalit Discharging Providers Clive Sanchez DO Reason for Admission SYNCOPE Your Diagnosis Trauma ESRD (end stage renal disease) Tests Performed Below is a partial list of the tests performed during your hospitalization. You may have had other tests and procedures not included in this list. Please discuss all test results with your provider. Alcohol Level Alk Phos ALT Amylase AST Basic Metabolic Panel CBC CBC w/ Differential COVID-19 (2019 Novel Coronavirus) PCR Electrolytes H + H Hepatitis Panel Dial Hold Red Top Tube Lactic Acid Level Magnesium Level Phosphorus Level PT (INR) PTT Type and Screen Cervical Spine [address] Abd/Pelvis W/ IV Contrast Only CT Chest W/ Contrast Venous Doppler Upper Ext Right (US) XR Elbow Min 3 Views Right Primary Care Provider Not on Staff, PCP Advance Directive Health Care Proxy on File No Patient refuses to discuss Discharge Vitals Temperature: 97.6 DegF Weight: 98.5 kg Pulse Rate: 83 bpm ?? Respiratory Rate: 18 br/min ?? Systolic Blood Pressure: 114 mm Hg ?? Diastolic Blood Pressure:??36 mm Hg??Low ?? Oxygen Saturation: 94 % ?? Studies Pending All tests and labs ordered during this hospital stay have been completed unless listed below. Please discuss all pending results with your provider listed above in these instructions. ?? Amphetamine Urine Screen B Type Natriuretic Peptide Barbiturate Urine Screen Benzodiazepine Urine Screen Cannabinoid Urine Screen Cocaine Urine Screen Opiate Screen Urine What to do next Instructions From Your Doctor Discharge Orders You Need to Schedule the Following Appointments Follow Up with??Not on Staff, PCP Discharge Medications BRITTNILUDY CLOUD :1940 Visit Date:03/07/2023 Medications: Please continue your medications until treatment is completed or stopped by your provider. Medications not listed below should be discontinued. Discuss any questions related to medications with your provider. What How Much When Instructions Next Dose Unchanged Allopurinol (allopurinol 100 mg oral tablet) 1 tab(s) Oral Daily Duration: 30 Days Unchanged Atorvastatin (atorvastatin 40 mg oral tablet) 1 tab(s) Oral Daily Duration: 30 Days Unchanged Citalopram (citalopram 20 mg oral tablet) 1 tab(s) Oral Daily Duration: 30 Days Unchanged Furosemide (Lasix 40 mg oral tablet) 1 tab(s) Oral Daily Unchanged Gabapentin (gabapentin 100 mg oral capsule) 1 capsule Oral 3 times a day Duration: 30 Days Unchanged Levothyroxine (levothyroxine 0.1 mg oral tablet) 1 tab(s) Oral Daily Duration: 30 Days on an empty stomach ?? Unchanged Metoprolol (metoprolol 25 mg oral tablet, extended release) 1 tab(s) Oral Daily Duration: 30 Days Unchanged ranolazine (ranolazine 500 mg oral tablet, extended release) 1 tab(s) Oral Daily in the morning Duration: 30 Days Unchanged sodium bicarbonate (sodium bicarbonate 650 mg oral tablet) 3 tab(s) Oral Daily Test Results Below is a partial list of the most recent Laboratory test results done prior to this discharge. You may have had other tests and procedures not included in this list. Please discuss all test resultswith your provider. Alcohol Level (03/06/2023) ???Ethanol, Serum or Plasma - NONE DETECTED Alk Phos (03/08/2023) ???Alkaline Phosphatase - 111 units/L ALT (03/08/2023) ???ALT (SGPT) - 9 units/L Amylase (03/06/2023) ???Amylase - 18 units/L AST (03/08/2023) ???AST (SGOT) - 12 units/L Basic Metabolic Panel (03/06/2023) ???Sodium - 138 mmol/L???Potassium - 4.3 mmol/L???Chloride - 100 mmol/L???Bicarbonate Level - 24 mmol/L???Anion Gap - 14???Glucose Level - 87 mg/dL???BUN - 54 mg/dL???Creatinine-Blood - 4.2 mg/dL???Estimated GFR Creatinine - 8 ML/MIN/1.73 M2???Calcium - 9.0 mg/dL CBC (03/08/2023) ???WBC - 6.6 k/mm3???RBC - 2.73 m/mm3???Hgb - 8.5 Gm/dL???Hct - 27.1 %???MCV - 99.3 femtoliters???MCH - 31.1 pg???MCHC - 31.4 g/dL???Platelet Count - 243 k/mm3???RDW-SD - 60.2 femtoliters???MPV - 10.2 femtoliters???Nucleated RBC (Automated) - 0.0 #/100 WBC'S???Abs. NRBC - 0.0 k/mm3 CBC w/ Differential (03/06/2023) ???WBC - 6.6 k/mm3???RBC - 2.85 m/mm3???Hgb - 9.1 Gm/dL???Hct - 28.5 %???MCV - 100.0 femtoliters???MCH - 31.9 pg???MCHC - 31.9 g/dL???Platelet Count - 210 k/mm3???RDW-SD - 59.5 femtoliters???MPV - 10.4 femtoliters???Nucleated RBC (Automated) - 0.0 #/100 WBC'S???Abs. NRBC - 0.0 k/mm3???Abs. Neut - 3.1 k/mm3???Abs. Lymph - 2.3 k/mm3???Abs. [place] - 0.5 k/mm3???Abs. Eo - 0.8 k/mm3???Abs. Baso - 0.0 k/mm3???Neut % - 46.3 %???Lymph % - 34.7 %???[place] % - 7.0 %???Eos % - 11.5 %???Baso % - 0.3 %???Imm Gran - 0.2 %???Abs. Imm Gran - 0.0 k/mm3 COVID-19 (2019 Novel Coronavirus) PCR (03/06/2023) ???COVID-19 PCR Specimen Source - NASAL???COVID-19 PCR Result - NEGATIVE Electrolytes (03/09/2023) ???Sodium - 135 mmol/L???Potassium - 4.2 mmol/L???Chloride - 94 mmol/L???Bicarbonate Level - 25 mmol/L???Anion Gap - 16 H + H (03/09/2023) ???Hgb - 8.5 Gm/dL???Hct - 26.4 % Hepatitis Panel Dial (03/07/2023) ???Hepatitis B Surface Antigen - NEGATIVE???Hepatitis C Ab - NEGATIVE???Anti-HBS Quant - 0 mIU/mL Hold Red Top Tube (03/06/2023) ???Hold Red Top - SPECIMEN DISCARDED AFTER 1 WEEK Lactic Acid Level (03/06/2023) ???Lactate - 0.9 mmol/L Magnesium Level (03/08/2023) ???Magnesium - 2.0 mg/dL Phosphorus Level (03/08/2023) ???Phosphorus - 5.0 mg/dL PT (INR) (03/06/2023) ???INR - 1.0???Protime (PT) - 10.4 seconds PTT (03/06/2023) ? ?APTT - <22.0 seconds Type and Screen (03/06/2023) ???Blood Type - A Positive???Antibody Screen - Negative Allergies (NKA means No Known Allergies) NKA Problems No qualifying data available Education Materials Below is the list of Educational Leaflet Providered with your Discharge Instructions. Valuables and Belongings I fully understand and agree that [facility] accepts no responsibility for all my personal property including clothing, toilet articles, radios, jewelry, dentures, hearing aids, rings, money, or any other property that is in my possession or is brought to me after admission. I understand certain valuables may be placed in a hospital safe for a short period of time. I understand that the hospital is not liable for loss or damage due to accident, fire, or other natural occurrence while said property is in the safe. I accept full responsibility for any personal property that I keep with me, and will not hold the hospital responsible in case of loss or disappearance. I acknowledge that i have been encouraged to send valuables and belongings home. ?? Date for Pt to Sign Valuables/Belongings: 03/07/23 22:56:00 ?? Other Discharge Information ?? Wound Assessment?? Wound Assessment?? Wound Location I: Gluteal Crease Wound Type I: Other: 2 small open areas the size of peas Wound I, Present on Admission: Yes ?? Case Management Discharge Plan?? Discharge Plan?? Discharge Agency Information?? Discharge VNA/Hospice/Home Care: [facility] Name of Agency #1: [facility] ?? Service Categories #1: Physical Therapy, Alf ?? Service Comments #1: [facility] will call you to set up services. If you doNot hear from them. Please call and thank you. ?? Pulmonary Rehab Status?? Pulmonary Rehab Discharge Status?? Respiratory Rate: 18 br/min ? Common Emergency Awareness Tips IS IT A STROKE? Act FAST and Check for these signs: FACE Does the face look uneven? ARM Does one arm drift down? SPEECH Does their speech sound strange? TIME Call at any sign of stroke ?? Heart Attack Signs Chest discomfort: Most heart attacks involve discomfort in the center of the chest and lasts more than a few minutes, or goes away and comes back. It can feel like uncomfortable pressure, squeezing, fullness or pain. Discomfort in upper body: Symptoms can include pain or discomfort in one or both arms, back, neck, jaw or stomach. Shortness of breath: With or without discomfort. Other signs: Breaking out in a cold sweat, nausea, or lightheaded. Remember, MINUTES DO MATTER. If you experience any of these heart attack warning signs, call to get immediate medical attention! ?? Smoking can increase your chances of developing chronic health problems and can cause harmful effects to other family members in your house. If you smoke, you are strongly encouraged to quit. Please call [facility] [employer] Link at [phone] or 6-798-867Communities for Cause (4070) or log in to [email or web address] for referrals to smoking cessation programs. ?? 111 Suicide & Crisis Lifeline is available 02/02 if you or someone you know needs to find a reason to keep living. By calling 436 you'll be connected to a skilled, trained counselor at a crisis center in your area. INPATIENT DISCHARGE INSTRUCTIONS SIGNATURE PAGE LUDY ATKINS Location:[facility] Registration Date and Time:03/07/2023 00:20 EDT Primary Care Physician: Not on Staff, PCP Attending Physician: Clive Sanchez DO, I LUDY ATKINS, have received the above patient education materials/instructions and have verbalized understanding. If ambulance or transport services are being used I further acknowledge being given a choice of service. ?? If you need to contact me, please call me at this number: . Patient/Shuffle Board Operator Name: Patient/Shuffle Board Operator Signature: Relationship to Patient: Witness Name/Signature: Date: Patient Care team information Care Team Personnel Name: Rae Chinchilla Position: [facility] Outreach Member Role: Lifetime Consulting Physician Name: Roberto Carlos Bosch III, RN Position: [facility] RN Member Role: Primary Care Nurse Name: Not on Staff, PCP Position: [facility] Physician (General Medicine) Member Role: PCP Name: Han Bingham MD Position: [facility] Renal MD Member Role: Lifetime Consulting Physician Address: Address: [address] [place] [address] [address] [facility] [address] Name: Mónica Montoya RN Position: [facility] RN Member Role: Primary Care Nurse Name: Shyam Hsu RN Position: [facility] RN Member Role: Primary Care Nurse Name: *[facility], Trauma Attending Position: [facility] ED Attendings Patient Name: Sherlyn Martinez RN Position: [facility] ED RN W/OE and Tasks Member Role: Patient Care Provider Name: Ana Cortez Position: [facility] ED TA TRACY Member Role: Automatic Stacker Care Team Related Persons Name: NANI KAUR Address: [address] [address] Name: EMMANUEL CLINTON
--- OUTSIDE RECORDS SUMMARY | 2023-06-21 10:45 | XMS_ITS | Encounter Summary ---
Author Name Unknown Organization [facility] Address [facility] [place] [address] Encounter Details Date Type Department Care Team Description 2023-01-08 Telephone [facility] [address] [place] [address] Pepito Owens Medication Reconciliation was successfully completed by the [facility]. ASSESSMENT No Information TREATMENT PLAN No Information
[2023-06-21 10:50] LABS: Basophils Percent Auto 0.5 % (0-2); Eosinophils Absolute Auto 0.7 X10*3/uL (0.0-0.4); Eosinophils Percent Auto 8.9 % (0-4); Hematocrit 33.2 % (37.0-47.0); Hemoglobin 10.3 g/dl (12.0-16.0); Imm Gran Abs Auto 0.05 X10*3/uL (0.00-0.03); Imm Gran Pct Auto 0.7 % (0.0-0.4); Lymphocytes Absolute Auto 1.3 X10*3/uL (1.2-4.9); Lymphocytes Percent Auto 17.9 % (20-40); Mean Corpuscular Hemoglobin 32.2 pg (27.0-33.0); Mean Corpuscular Volume 103.8 fL (80.0-98.0); Mean Platelet Volume 9.9 fL (9.4-12.3); Monocytes Absolute Auto 0.6 X10*3/uL (0.1-1.2); Neutrophils Absolute Auto 4.7 x10*3/uL (2.0-8.3); Platelet Count 208 X10*3/uL (160-400); Red Cell Distribution Width 16.8 % (11.0-16.0); White Blood Count 7.4 X10*3/uL (4.8-10.8)
[2023-06-21 11:06] LABS: Anion Gap 20 (12-20); Blood Urea Nitrogen 59 mg/dL (9-16); Carbon Dioxide 15 mmol/L (22-29); Chloride 105 mmol/L (96-108); Creatinine Clr Calc Pharmacy 8.1; Estimated Glomerular Filt Rate 7; Glucose Random 83 mg/dL (60-115); Magnesium 2.9 mg/dL (1.6-2.6); Phosphorus 6.8 mg/dL (2.7-4.5); Potassium 5.9 mmol/L (3.3-5.1); Sodium 134 mmol/L (135-145)
[2023-06-21 12:00] VITALS: BP 108/45
[2023-06-21 12:30] VITALS: BP 121/46
[2023-06-21 12:48] LABS: Venous Blood Gas Refer to POC result
[2023-06-21 12:49] LABS: VBG Base Excess -5.1 mmol/L; VBG HCO3 22 mmol/L (22-26); VBG pCO2 52 mmHg; VBG pH 7.23 (7.32-7.43); VBG pO2 41 mmHg
[2023-06-21 13:10] LABS: Anion Gap 18 (12-20); Blood Urea Nitrogen 61 mg/dL (9-16); Carbon Dioxide 20 mmol/L (22-29); Chloride 104 mmol/L (96-108); Creatinine Clr Calc Pharmacy 8.2; Estimated Glomerular Filt Rate 8; Glucose Random 82 mg/dL (60-115); Potassium 5.7 mmol/L (3.3-5.1); Sodium 136 mmol/L (135-145)
[2023-06-21 13:16] VITALS: BP 117/56
[2023-06-21] MEDS: Sodium Zirconium Cyclosilicate 10 GM POWD.PACK PO ×2 (13:58→15:05)
--- NOTE | 2023-06-21 14:27 | ED.FALL ---
HPI - Fall General Chief Complaint: Fall Stated Complaint: FALL Time Seen by Provider: 06/21/23 10:14 History of Present Illness HPI Narrative: Avtar is an 82-year-old female. She was trying to get up to go on a bedside commode. Not want await further manager care management. Subsequently fell. Patient stated that she cannot get up. EMS was eventually contacted. Patient came into the ED for further evaluation. Question hitting her head. Patient's family lives with her. Her to fall. There is no prolonged down time. Patient not on any blood thinners. Related Data Home Medications Medication Instructions Recorded Confirmed albuterol sulfate 90 mcg/actuation 2 puff inhalation Q4H PRN 12/28/22 05/13/23 aerosol inhaler Shortness Of Breath Or Wheezing famotidine 20 mg tablet 20 mg PO DAILY 12/28/22 05/13/23 levothyroxine 100 mcg tablet 100 mcg PO DAILY@0600 12/28/22 05/13/23 atorvastatin 20 mg tablet 20 mg PO BEDTIME 01/24/23 05/13/23 fluticasone fur. 100 mcg-umeclid 1 ea inhalation DAILY 02/10/23 05/13/23 62.5 mcg-vilant 25 mcg inhalat.powder (Trelegy Ellipta) gabapentin 100 mg capsule 100 mg PO TID 05/04/23 05/13/23 Previous Rx's Medication Instructions Recorded aspirin 81 mg tablet,delayed 81 mg PO DAILY #90 tabs 12/31/22 release metoprolol tartrate 25 mg tablet 12.5 mg (1/2 x 25 mg) PO BID #180 12/31/22 tabs nitroglycerin 0.4 mg sublingual 0.4 mg sublingual Q5M PRN chest 01/14/23 tablet pain #30 tabs ranolazine 500 mg tablet,extended 500 mg PO BID 90 days #180 tabs 01/14/23 release,12 hr furosemide 40 mg tablet 40 mg PO BID@0900,1800 #60 tabs 02/17/23 wheelchair with footrests #1 ea 03/25/23 blood pressure test kit-medium #1 ea 03/27/23 commode (bedside commode) #1 ea 03/27/23 grab bar for bathroom #2 ea 03/27/23 citalopram 20 mg tablet 20 mg PO DAILY #300 tabs 04/20/23 vancomycin 500 mg/100 mL in 0.9% 500 mg (100 mL) IV MOWEFR 05/11/23 sodium chloride intravenous piggyback Allergies Allergy/AdvReac Type Severity Reaction Status Date / Time NSAIDS (Non-Steroidal Allergy Unknown Verified 05/13/23 18:45 Anti-Inflamma [id number]-[id number] Reductase AdvReac Severe LEG PAIN Verified 05/13/23 18:45 Inhibitor Review of Systems Review of Systems: Positive fall positive head injury Yes all other systems are reviewed and are negative [facility] Past Medical History Attestation statement: The following information was validated with the patient. Medical History (HFpEF) heart failure with preserved ejection fraction ESRD needing dialysis NSTEMI (non-ST elevated myocardial infarction) Cough Respiratory failure with hypoxia Interstitial lung disease Depression, major, recurrent Dyslipidemia Osteoarthritis of multiple joints Acquired hypothyroidism Heart murmur Fibromyalgia Diabetes Surgical History Hx of tonsillectomy S/P appendectomy Hx of fusion of cervical spine S/P anal fissurectomy H/O hemorrhoidectomy S/P partial hysterectomy Family History Family History Brother Substance use disorder Son Substance use disorder Daughter Substance use disorder Social History Social History Household Members: Children Household Members Other:: Lives alone granddaughter lives in attached house Housing: House Do you presently have visiting nurse or other home services: No Alcohol intake: current Alcohol intake frequency: holidays/special occasions only Patient Tobacco Use Status: Former Tobacco user Quit Date: 15 years ago Tobacco use type: Cigarette Years Smoked: 20 +/- on and off e-Cigarette/Vaping Use: Never Used Second Hand Smoke Exposure: No Advance Directives: Yes Advance Directives on File: Yes Advance Directives Date on File: 02/01/23 service: No Current occupational status: retired Current occupation: right handed Cognitive needs: No Hearing needs: No Vision needs: Yes Physical Exam Vital Signs: Vital Signs: Last Vital Signs Temp 97.9 F 06/21/23 10:23 Pulse 81 06/21/23 10:23 Resp 18 06/21/23 10:23 BP 80/38 L 06/21/23 10:23 Pulse Ox 100 06/21/23 10:23 O2 Del Method Nasal Cannula 06/21/23 10:23 Oxygen Flow Rate 4 06/21/23 10:23 BMI result Body Mass Index 36.8 Appearance: Alert. Oriented X3. No acute distress. Eyes: Pupils equal, round and reactive to light. ENT: Pharynx normal. Neck: Normal inspection. Neck supple. No lymph nodes noted. No crepitus CVS: Normal heart rate and rhythm. Pulses normal. Normal S1 and S2 Respiratory: No respiratory distress. Breath sounds normal. No Wheezing. No rales Abdomen: Soft and nontender. No rigidity. No distention. good BS x4 Skin: Skin warm and dry. Normal skin color. Normal skin turgor. Extremities: No lower extremity edema. Neurovascular intact to all extremities. No Lacerations. No Rash Neuro: Oriented X 3. No motor deficit. No sensory deficit. Moving all extermities. No slurred speech Medications Administered Discontinued Medications Generic Name Dose Route Start Last Admin Trade Name Freq PRN Reason Stop Dose Admin Sodium Zirconium Cyclosilicate 10 gm 06/21/23 12:15 06/21/23 13:58 Sodium Zirconium Cyclosilicate 10 Gm Powd.Pack PO 06/21/23 12:16 10 gm ONCE ONE Administration Medical Decision Making Medical Decision Making [facility] Narrative: Patient's CT scan of the head and C-spine were done as patient is a dialysis patient that hit her head. CT scan of the head was grossly negative for any acute evidence of bleed by my interpretation. I reviewed radiology's reading of the CT head and CT C-spine. Patient's pelvis x-ray did not show any acute fracture has good range of motion patient's electrolytes showed a potassium of 5.7. This is elevated. Patient has been compliant with her dialysis. Had had multiple elevated potassium in the past. A dose of Lokelma and was given in emergency department. Case was discussed with Nephrology on-call. Recommended for patient to be discharged home on a 2nd dose of Lokelma given in 6 hours. Patient states understanding. Will discharge home. Patient's hemoglobin is 10.3 which is approximately baseline. Patient's electrolytes showed a pH of 7.23 this is also baseline. Patient's BUN and creatinine is elevated this is secondary to renal failure. She is in stable condition. Will discharge home Differential Diagnosis Differential Diagnoses: The differential diagnosis associated with the presentation includes Hyperkalemia, head injury, intracranial bleed, spinal fracture Admission/Observation Consideration of admission/observation: Escalation of care including admission/observation considered Patient wants to go home status post accidental fall will discharge on extra dose of Lokelma in Consult Healthcare Provider Management of the patient was discussed with: Tarring Machine Operator Nephrology Lab Data MDM Lab Attestation statement: I reviewed the patient's lab results. 06/21/23 10:40 06/21/23 12:40 Labs: Lab Results 06/21/23 06/21/23 06/21/23 Range/Units 10:40 10:40 12:40 WBC 7.4 (4.8-10.8) X10*3/uL RBC 3.20 L (4.20-5.50) X10*6/uL Hgb 10.3 L (12.0-16.0) g/dl Hct 33.2 L (37.0-47.0) % MCV 103.8 H (80.0-98.0) fL MCH 32.2 (27.0-33.0) pg MCHC 31.0 (31.0-35.0) g/dl RDW 16.8 H (11.0-16.0) % Plt Count 208 (160-400) X10*3/uL MPV 9.9 (9.4-12.3) fL Immature Gran % (Auto) 0.7 H (0.0-0.4) % Neut % (Auto) 64.0 (45-73) % Lymph % (Auto) 17.9 L (20-40) % [place] % (Auto) 8.0 (2-11) % Eos % (Auto) 8.9 H (0-4) % Baso % (Auto) 0.5 (0-2) % Lymph # (Auto) 1.3 (1.2-4.9) X10*3/uL [place] # (Auto) 0.6 (0.1-1.2) X10*3/uL Eos # (Auto) 0.7 H (0.0-0.4) X10*3/uL Baso # (Auto) 0.0 (0.0-0.2) X10*3/uL Abs Immat Gran (auto) 0.05 H (0.00-0.03) X10*3/uL Absolute Neuts (auto) 4.7 (2.0-8.3) x10*3/uL Absolute Nucleated RBC 0.000 (0.0-0.012) X10*3/uL Nucleated RBC % (auto) 0.0 (0.0-0.2) /100WBC VBG pH (7.32-7.43) VBG pCO2 mmHg VBG pO2 mmHg VBG HCO3 (22-26) mmol/L VBG O2 Saturation % VBG Base Excess mmol/L Sodium 134 L 136 (135-145) mmol/L Potassium 5.9 H D 5.7 H (3.3-5.1) mmol/L Chloride 105 104 (96-108) mmol/L Carbon Dioxide 15 L 20 L (22-29) mmol/L Anion Gap 20 18 (12-20) BUN 59 H 61 H (9-16) mg/dL Creatinine 5.43 H* 5.35 H* (0.5-1.4) mg/dL Estim Creat Clear Calc 8.1 8.2 Estimated GFR 7 8 Random Glucose 83 82 (60-115) mg/dL Calcium 9.0 D Cancelled 9.0 (8.4-10.2) mg/dL Phosphorus 6.8 H (2.7-4.5) mg/dL Magnesium 2.9 H (1.6-2.6) mg/dL 06/21/23 Range/Units 12:43 WBC (4.8-10.8) X10*3/uL RBC (4.20-5.50) X10*6/uL Hgb (12.0-16.0) g/dl Hct (37.0-47.0) % MCV (80.0-98.0) fL MCH (27.0-33.0) pg MCHC (31.0-35.0) g/dl RDW (11.0-16.0) % Plt Count (160-400) X10*3/uL MPV (9.4-12.3) fL Immature Gran % (Auto) (0.0-0.4) % Neut % (Auto) (45-73) % Lymph % (Auto) (20-40) % [place] % (Auto) (2-11) % Eos % (Auto) (0-4) % Baso % (Auto) (0-2) % Lymph # (Auto) (1.2-4.9) X10*3/uL [place] # (Auto) (0.1-1.2) X10*3/uL Eos # (Auto) (0.0-0.4) X10*3/uL Baso # (Auto) (0.0-0.2) X10*3/uL Abs Immat Gran (auto) (0.00-0.03) X10*3/uL Absolute Neuts (auto) (2.0-8.3) x10*3/uL Absolute Nucleated RBC (0.0-0.012) X10*3/uL Nucleated RBC % (auto) (0.0-0.2) /100WBC VBG pH 7.23 L (7.32-7.43) VBG pCO2 52 mmHg VBG pO2 41 mmHg VBG HCO3 22 (22-26) mmol/L VBG O2 Saturation 62.0 % VBG Base Excess -5.1 mmol/L Sodium (135-145) mmol/L Potassium (3.3-5.1) mmol/L Chloride (96-108) mmol/L Carbon Dioxide (22-29) mmol/L Anion Gap (12-20) BUN (9-16) mg/dL Creatinine (0.5-1.4) mg/dL Estim Creat Clear Calc Estimated GFR Random Glucose (60-115) mg/dL Calcium (8.4-10.2) mg/dL Phosphorus (2.7-4.5) mg/dL Magnesium (1.6-2.6) mg/dL ABG Data Attestation ABG: I personally reviewed and interpreted this ABG as follows: Interpretation: I interpreted patient's VBG to show a pH of 7.23. PCO2 is 52 consistent with metabolic acidosis. Independent Interpretation I performed an independent interpretation of an: EKG (My interpretation of patient's EKG showed a sinus rhythm heart rate is 80 MT QRS QTC within normal limits is no acute ST segment elevation) and CT Scan (My interpretation the patient's CT scan of the head was grossly negative for any acute evidence of bleeding) Radiology Impression Discussion of test interpretation with radiology: I have reviewed the radiologist's reading. Independent Historian Clinical information obtained from an independent historian. History obtained from or confirmed by: EMS External Record Review External record reviewed: Inpatient record Tests considered The following testing was considered but not selected: CT scan of the chest abdomen pelvis Prescription Management Additional dose of Lokelma is given Chronic Conditions Patient?s care impacted by: Diabetes Renal failure Discharge Plan Discharge Clinical Impression: Hyperkalemia, Head injury Patient Disposition: Home, Self-Care Instructions: Head Injury (ED), Hyperkalemia (ED) Additional Instructions: Please take the extra dose a low carmine at approximately 19:00. Please go to dialysis tomorrow as planned Prescriptions: No Action (DME) wheelchair with footrests See Rx Instructions .Route .MEDSUPPLY Qty: 1 0RF Rx Instructions: As directed (DME) blood pressure test kit-medium Kit See Rx Instructions .Route Qty: 1 0RF Rx Instructions: As directed (DME) bedside commode Kit See Rx Instructions .Route Qty: 1 0RF Rx Instructions: As directed (DME) grab bar for bathroom See Rx Instructions .Route .MEDSUPPLY Qty: 2 0RF Rx Instructions: As directed citalopram 20 mg tablet 20 mg PO DAILY Qty: 300 3RF levothyroxine 100 mcg tablet 100 mcg PO DAILY@0600 famotidine 20 mg tablet 20 mg PO DAILY albuterol sulfate 90 mcg/actuation HFA aerosol inhaler 2 puff inhalation Q4H PRN (Reason: Shortness Of Breath Or Wheezing) aspirin 81 mg Tablet,Delayed Release (Dr/Ec) 81 mg PO DAILY Qty: 90 0RF metoprolol tartrate 25 mg tablet 12.5 mg PO BID Qty: 180 0RF atorvastatin 20 mg tablet 20 mg PO BEDTIME Trelegy Ellipta 100-62.5-25 mcg blister with device 1 ea inhalation DAILY furosemide 40 mg Tablet 40 mg PO BID@0900,1800 Qty: 60 0RF Protocol: Hold for SBP< HOLD for SBP < : 90 gabapentin 100 mg capsule 100 mg PO TID vancomycin in 0.9 % sodium chl 500 mg/100 mL piggyback 500 mg IV MOWEFR Rx Instructions: During dialysis ranolazine 500 mg tablet extended release 12 hr 500 mg PO BID 90 Days Qty: 180 3RF nitroglycerin 0.4 mg tablet, sublingual 0.4 mg sublingual Q5M PRN (Reason: chest pain) Qty: 30 5RF Rx Instructions: do not exceed 3 doses per episode Referrals: Christina Paiz MD [Primary Care Provider] - (Please go to dialysis tomorrow)
[2023-06-21 14:58] VITALS: BP 110/39; PULSE 75; RESP 18; TEMP 36.4; O2SAT 100
== END 2023-06-21 15:53 | disposition home or self-care (01) ==
PROVIDERS: Emergency Provider Emergency Medicine Emergency Medical Services; PCP Internal Medicine
DX: S09.90XA Unspecified injury of head, initial encounter (principal); W18.30XA Fall on same level, unspecified, initial encounter; E87.5 Hyperkalemia; E11.22 Type 2 diabetes mellitus with diabetic chronic kidney disease; I13.0 Hypertensive heart and chronic kidney disease with heart failure and stage 1 through stage 4 chronic kidney disease, or unspecified chronic kidney disease; N18.4 Chronic kidney disease, stage 4 (severe); I50.9 Heart failure, unspecified; E78.5 Hyperlipidemia, unspecified; Z87.891 Personal history of nicotine dependence; Y93.9 Activity, unspecified; Y92.9 Unspecified place or not applicable; Y99.9 Unspecified external cause status; Z79.899 Other long term (current) drug therapy; Z79.82 Long term (current) use of aspirin
CPT/HCPCS: 36415; 70450; 72125; 72170; 80048; 82803; 83735; 84100; 85025; 93005; 99284

== ENCOUNTER → 2023-06-21 10:33 | Outpatient (BNV) | payer OTHER, SELFPAY | PROVIDERS: Emergency Provider Emergency Medicine Emergency Medical Services; PCP Internal Medicine; Visit Provider Internal Medicine Cardiovascular Disease | DX: I44.0 Atrioventricular block, first degree (principal); R94.31 Abnormal electrocardiogram [ECG] [EKG] | CPT/HCPCS: 93010 ==

== ENCOUNTER 2023-07-16 13:20 | Outpatient (AMB) | payer OTHER, SELFPAY ==
--- NOTE | 2023-07-16 14:06 | MHC.PC.OV ---
Vital Signs 07/16/23 14:13 BMI Reason not done Patient refused/unable BP 124/66 Blood Pressure Location Lt brachial Position Sitting Pulse 67 Pulse Source Pulse Oximeter Pulse Oximetry (%) 100 Oxygen Delivery Method Nasal Cannula Intake Visit Reasons: hospital follow up/weakness Intake Note: Pt is here today for a hospital follow up visit. Allergies NSAIDS (Non-Steroidal Anti-Inflamma Allergy (Verified 07/16/23 14:07) Unknown Iqdnzkx-VUU-EiW Reductase Inhibitor Adverse Reaction (Severe, Verified 07/16/23 14:07) LEG PAIN Medication List - Last Reconciled 07/16/23 by Christina Paiz MD albuterol sulfate 90 mcg/actuation 2 puffs inhalation Q4H PRN aspirin 81 mg PO DAILY atorvastatin 20 mg PO BEDTIME blood pressure test kit-medium As directed citalopram 20 mg PO DAILY commode (bedside commode) As directed famotidine 20 mg PO DAILY zmmcwafiidx-utnzpdkja-ncucesbu 100-62.5-25 mcg (Trelegy Ellipta) 1 ea inhalation DAILY furosemide 40 mg See Protocol PO BID@0900,1800 gabapentin 100 mg PO TID [grab bar for bathroom As directed] levothyroxine 100 mcg PO DAILY@0600 metoprolol tartrate 12.5 mg (1/2 x 25 mg) PO BID nitroglycerin 0.4 mg sublingual Q5M PRN ranolazine ER 500 mg PO BID 90 days vancomycin in 0.9 % sodium chl 500 mg/100 mL 500 mg (100 mL) IV MOWEFR [wheelchair with footrests As directed] Tobacco use date assessed: 07/16/23 Fall risk assessment: 2 + Falls in past year Last assessed Fall Risk: 07/16/23 Dental Screening Dental Screen Date: 07/16/23 Did you have a dental visit in the last 12 months?: Yes Did you have a dental problem in the last 6 months where you did not have access to dental care?: No Was dental information given to patient?: Patient has dentist HPI hospital follow up/weakness HPI Details Patient presents for the follow-up of hospitalization for recurrent hyperkalemia and falls. Past medical history includes end-stage renal disease on dialysis, COPD and interstitial lung disease with chronic respiratory failure, CHF with preserved ejection fraction [facility] Medical History ESRD needing dialysis (HFpEF) heart failure with preserved ejection fraction NSTEMI (non-ST elevated myocardial infarction) Cough Respiratory failure with hypoxia Interstitial lung disease Depression, major, recurrent Dyslipidemia Osteoarthritis of multiple joints Acquired hypothyroidism Heart murmur Fibromyalgia Diabetes Surgical History Hx of tonsillectomy S/P appendectomy Hx of fusion of cervical spine S/P anal fissurectomy H/O hemorrhoidectomy S/P partial hysterectomy Family History Brother Substance use disorder Son Substance use disorder Daughter Substance use disorder Social History Household Members: Family Household Members Other:: Lives alone granddaughter lives in attached house Housing: Unknown / Unable to assess Do you presently have visiting nurse or other home services: No Unable to assess alcohol history related to: Unknown Alcohol intake: current Alcohol intake frequency: does not drink Patient Tobacco Use Status: Former Tobacco user Tobacco use type: Cigarette Years Smoked: 20 +/- on and off e-Cigarette/Vaping Use: Former Use Second Hand Smoke Exposure: No Advance Directives Date on File: 02/03/23 service: No Current occupational status: retired Current occupation: right handed Cognitive needs: No Hearing needs: No Vision needs: Yes Questionnaire PHQ-9 Over the last 2 weeks, how often have you been bothered by any of the following problems? 1. Little interest or pleasure in doing things: nearly every day 2. Feeling down, depressed, or hopeless: nearly every day 3. Trouble falling or staying asleep, or sleeping too much: nearly every day 4. Feeling tired or having little energy: more than half the days 5. Poor appetite or overeating: not at all 6. Feeling bad about yourself - or that you are a failure or have let yourself or your family down: not at all 7. Trouble concentrating on things, such as reading the newspaper or watching television: not at all 8. Moving or speaking so slowly that other people could have noticed. Or the opposite - being so fidgety or restless that you have been moving around a lot more than usual: not at all 9. Thoughts that you would be better off or of hurting yourself in some way: not at all Total score: 11 Depression Screening Interpretation: Positive Depression Screening Follow-up: Existing condition and In treatment Depression Screening Done: Yes Source: Developed by Drs. Roberto Carlos Fitzgerald, Leslie Choudhury, Cem Price and colleagues, with an educational robert from [employer]. Thrive Questionnaire Date Thrive assessed: 07/16/23 I am a: Patient What is your living situation today?: I have a steady place to live Within the past 12 months, did the food you bought not last and you didn't have the money to get more?: Never true Within the past 12 months, did you worry whether your food would run out before you got money to buy more?: Never true Do you have trouble paying for medicines?: No Do you have trouble getting transportation to medical appointments?: No Do you have trouble paying your heating and electricity bill?: No Do you have trouble taking care of your child, family member or friend?: No Do you have trouble with day-to-day activities such as bathing, preparing meals, shopping, managing finances, etc.?: No Are you currently unemployed and looking for a job?: No Are you interested in more education?: No Please select the resources that you would like help with: None AUDIT C Alcohol Use Questionnaire (AUDIT-C) 1. How often do you have a drink containing alcohol?: Never 3. How often do you have six or more drinks on one occasion?: Never Total Score: 0 PITO-7 AMB Questionnaire PITO-7 Date PITO - 7 assessed: 07/16/23 Feeling nervous, anxious, or on edge: 1 = Several days Not being able to stop or control worryin = Several days Worrying too much about different things: 0 = Not at all Trouble relaxin = Several days Being so restless that it is hard to sit still: 0 = Not at all Becoming easily annoyed or irritable: 0 = Not at all Source: Developed by Drs. Roberto Carlos Fitzgerald, Leslie Choudhury, Cem Price and colleagues, with an educational robert from [employer]. Review of Systems Const All systems reviewed & are unremarkable except as noted in HPI and below Card Reports no additional complaints Resp Reports no additional complaints GI Reports no additional complaints Physical exam (Primary Care) Vital Signs: Last Vital Signs Pulse 67 07/16/23 14:13 BP 124/66 07/16/23 14:13 Pulse Ox 100 07/16/23 14:13 Oxygen Delivery Method Nasal Cannula 07/16/23 14:13 Tobacco/Smoking Status: Tobacco use Status Tobacco use date assessed 07/16/23 07/16/23 14:08 Patient Tobacco Use Status Former Tobacco user 07/16/23 14:06 Tobacco use type Cigarette 07/16/23 14:06 e-Cigarette/Vaping Use Never Used 07/16/23 14:06 PHQ-9: PHQ-9 Score PHQ-9: Total score 11 07/16/23 14:36 Depression Screening Interpretation: Positive Depression Screening Follow-up: Existing condition and In treatment Thrive Assessment: Date of Thrive Assessment Date Thrive assessed 07/16/23 07/16/23 14:18 Const General: no acute distress Neck Neck: Yes supple Resp Effort & Inspection: normal respiratory effort Auscultation: diminished lung sounds Cardio Rhythm: regular rhythm Heart sounds: S1 normal heart sound present and S2 normal heart sound present GI Inspection: Yes normal to inspection Palpation (GI): Soft to palpation Assessment and Plan Assessment & Plan (1) (HFpEF) heart failure with preserved ejection fraction: Code(s): I50.30 - Unspecified diastolic (congestive) heart failure Plan: Continue current medications follow-up with the Cardiology (2) Interstitial lung disease: Code(s): J84.9 - Interstitial pulmonary disease, unspecified Plan: Continue inhalers and supplemental O2 (3) ESRD on hemodialysis: Code(s): N18.6 - End stage renal disease; Z99.2 - Dependence on renal dialysis Plan: Follow-up with nephrology Medications: New bxulkbclcnt-jglrsvnoc-iyucdswm 100-62.5-25 mcg (Trelegy Ellipta) 1 ea inhalation DAILY 60 ea 3RF Coding Level of Care Code Est Pt Level 3 (31369) Diagnoses (HFpEF) heart failure with preserved ejection fraction I50.30 Interstitial lung disease J84.9 ESRD on hemodialysis N18.6; Z99.2
[2023-07-16 14:13] VITALS: BP 124/66; PULSE 67; O2SAT 100
== END 2023-07-16 14:39 | disposition home or self-care (01) ==
PROVIDERS: PCP Internal Medicine; Visit Provider Internal Medicine
DX: I50.30 Unspecified diastolic (congestive) heart failure (principal); J84.9 Interstitial pulmonary disease, unspecified; N18.6 End stage renal disease; Z99.2 Dependence on renal dialysis
CPT/HCPCS: 99499

== ENCOUNTER 2023-08-03 16:16 | Emergency (ER) | payer OTHER, SELFPAY ==
--- NOTE | ~2023-08-03 | CT_ITS ---
EXAMINATION: CT ABDOMEN AND PELVIS WITHOUT CONTRAST CLINICAL INFORMATION: Vaginal bleeding. Evaluate for mass. COMPARISON: CT abdomen and pelvis 11/03/2022 TECHNIQUE: Multidetector volumetric imaging was performed from the superior aspect of the liver through the pubic symphysis with oral contrast. Sagittal and coronal reformatted images were obtained on the technologist's workstation. This CT examination was performed using dose optimization techniques as appropriate, variously including the following: *Automated exposure control *Adjustment of mA and/or kV according to patient size (this includes techniques or standardized protocols for targeted exams where dose is matched to indication/reason for exam; i.e. extremities or head) *Use of iterative reconstruction technique DLP: 1565 mGy-cm FINDINGS: LUNG BASES: There is honeycombing, cystic changes and reticular stranding in both lung bases suggestive of chronic interstitial fibrosis. Heart size is normal. Mild coronary artery calcifications are present. LIVER, GALLBLADDER, AND BILIARY TREE: The liver is normal in size, shape, and attenuation. There is a 3 cm cyst lateral segment left hepatic lobe. No additional lesions seen. No intrahepatic biliary ductal dilatation is present. The gallbladder is unremarkable with no evidence of radiopaque gallstones, gallbladder wall thickening, or obvious pericholecystic inflammatory changes. PANCREAS: There is complete fatty infiltration pancreas and barely visible. SPLEEN: There is a 1.2 cm ill-defined hypodensity on coronal image 67/6, stable ADRENAL GLANDS: Unremarkable. KIDNEYS AND URETERS: Both kidneys are small with mild cortical atrophy right kidney. There are several cysts in the right kidney largest in lower pole with peripheral superior wall calcification measuring 3.9 cm in craniocaudad length and 3 Hounsfield units. Grossly stable. No radiopaque calculi or hydronephrosis. BLADDER: Unremarkable. GASTROINTESTINAL TRACT: There is scattered stool, diverticuli and gas seen in colon without significant distention or diverticulitis. The small bowel loops are normal caliber. Appendix is not visualized. The stomach is nondistended. ABDOMINAL WALL: There is umbilical hernia measuring 2.2 cm wide neck. LYMPH NODES: Normal. VASCULAR: There is arthroscopic calcification of abdominal aorta without aneurysmal dilatation. PELVIC VISCERA: There is no free air or free fluid. There is mild fullness in the cervical vaginal region. The uterus is atrophied or surgically absent. No pelvic mass or abnormal lymphadenopathy. OSSEOUS STRUCTURES: There are degenerative disc changes virtually every disc level lower thoracic and lumbar spine sparing the L5-S1 disc level. No aggressive lytic or sclerotic process seen. Lower thoracic posterior epidural spinal electrode is seen CT/CT abdomen pelvis wo IV con IMPRESSION: 1. No acute intra-abdominal process seen. 2. Small bilateral kidneys with mild cortical atrophy right kidney. Right renal cysts are stable. 3. Left hepatic cyst is stable. 4. Small umbilical hernia is stable. 5. Degenerative disc changes lower thoracic and lumbar spine. No aggressive lytic or sclerotic process seen. 6. Mild fullness in the cervical/vaginal region. Recommend direct visualization. Fleischner guidelines were followed.
[2023-08-03 16:43] VITALS: BP 128/53; BP 132/50; PULSE 91; PULSE 92; RESP 18; TEMP 36.8; O2SAT 97; O2SAT 99; BMI 36.7
--- NOTE | 2023-08-03 16:59 | ECG_ITS ---
Test Reason : DYSPNEA Blood Pressure : / mmHG Vent. Rate : 089 BPM Atrial Rate : 089 BPM P-R Int : 196 ms QRS Dur : 082 ms QT Int : 386 ms P-R-T Axes : 040 026 020 degrees QTc Int : 469 ms Normal sinus rhythm Septal infarct , age undetermined Possible Inferior infarct (cited on or before Precordial T wave inversions present Abnormal ECG When compared with ECG of 21-JUN-2023 10:44, DE interval has decreased Septal infarct is now Present T wave inversion now evident in Anterior leads Referred By: Tram Schaefer Electronically Signed By:Dmitry Rogers
--- NOTE | 2023-08-03 17:00 | PC.NURSE ---
pelvic exam performed by Zohreh YEE w/ this RN present. vaginal bleeding w/ clots observed.
--- NOTE | 2023-08-03 17:13 | ED.FEMALEGU ---
HPI - Female Genitourinary General Chief complaint: Urogenital-Female Stated complaint: Vaginal bleeding x1w w04/21 pain Time Seen by Provider: 08/03/23 16:17 Source: patient and EMS Mode of arrival: EMS Limitations: no limitations History of Present Illness HPI Narrative: 82 yo female with history of CHF, ESRD on HD (M, W, F), h/o partial hyst (not secondary to malignancy) here with complaints of vaginal bleeding x 1 weeks worsening over the last 24 hrs, with abdominal cramping. No AC therapy use. No history of abnormal PAPs Related Data Home Medications Medication Instructions Recorded Confirmed albuterol sulfate 90 mcg/actuation 2 puff inhalation Q4H PRN 12/28/22 07/16/23 aerosol inhaler Shortness Of Breath Or Wheezing famotidine 20 mg tablet 20 mg PO DAILY 12/28/22 07/16/23 levothyroxine 100 mcg tablet 100 mcg PO DAILY@0600 12/28/22 07/16/23 atorvastatin 20 mg tablet 20 mg PO BEDTIME 01/24/23 07/16/23 gabapentin 100 mg capsule 100 mg PO TID 05/04/23 07/16/23 Previous Rx's Medication Instructions Recorded aspirin 81 mg tablet,delayed 81 mg PO DAILY #90 tabs 12/31/22 release metoprolol tartrate 25 mg tablet 12.5 mg (1/2 x 25 mg) PO BID #180 12/31/22 tabs nitroglycerin 0.4 mg sublingual 0.4 mg sublingual Q5M PRN chest 01/14/23 tablet pain #30 tabs ranolazine 500 mg tablet,extended 500 mg PO BID 90 days #180 tabs 01/14/23 release,12 hr furosemide 40 mg tablet 40 mg PO BID@0900,1800 #60 tabs 02/17/23 wheelchair with footrests #1 ea 03/25/23 blood pressure test kit-medium #1 ea 03/27/23 commode (bedside commode) #1 ea 03/27/23 grab bar for bathroom #2 ea 03/27/23 citalopram 20 mg tablet 20 mg PO DAILY #300 tabs 04/20/23 vancomycin 500 mg/100 mL in 0.9% 500 mg (100 mL) IV MOWEFR 05/11/23 sodium chloride intravenous piggyback fluticasone fur. 100 mcg-umeclid 1 ea inhalation DAILY #60 ea 07/16/23 62.5 mcg-vilant 25 mcg inhalat.powder (Trelegy Ellipta) Allergies Allergy/AdvReac Type Severity Reaction Status Date / Time NSAIDS (Non-Steroidal Allergy Unknown Verified 07/16/23 14:07 Anti-Inflamma Fsummha-MKG-HoG Reductase AdvReac Severe LEG PAIN Verified 07/16/23 14:07 Inhibitor Review of Systems Review of Systems: Yes all other systems are reviewed and are negative Constitutional: Constitutional: Reports no additional constitutional complaints, Denies body ache(s), Denies chills, Denies fever(s), Denies headache(s) and Denies weakness Eyes: Eyes: Reports no additional eye complaints and Denies change in vision ENT: Reports system reviewed and no additional complaints, except as documented, Denies dizziness, Denies headache(s), Denies nasal congestion, Denies nasal discharge and Denies neck pain Cardiovascular: Cardiovascular: Reports no additional cardiovascular complaints, Denies chest pain, Denies leg edema and Denies dyspnea Respiratory: Respiratory: Reports no additional respiratory complaints, Denies cough and Denies dyspnea Gastrointestinal: Gastrointestinal: Reports no additional gastrointestinal complaints, Denies abdominal pain, Denies diarrhea, Denies nausea and Denies vomiting Genitourinary: Genitourinary: Reports no additional female genitourinary complaints, Reports abnormal vaginal bleeding, Denies dysuria, Reports pelvic pain, Denies flank pain, Denies urinary incontinence and Denies vaginal discharge Musculoskeletal: Musculoskeletal: Reports no additional musculoskeletal complaints, Denies back pain, Denies arthralgias, Denies joint swelling, Denies neck pain, Denies numbness and Denies tingling Integumentary/Breasts: Skin/Breast: Reports system reviewed and no additional complaints, except as docu and Denies rash Neurologic: Reports system reviewed and no additional complaints, except as documented, Denies Abnormal speech present, Denies dizziness, Denies headache(s), Denies numbness, Denies tingling and Denies weakness FOR[facility]LY [facility], [facility] Past Medical History Attestation statement: The following information was validated with the patient. Source: old records reviewed and nursing notes reviewed Medical History (HFpEF) heart failure with preserved ejection fraction ESRD needing dialysis NSTEMI (non-ST elevated myocardial infarction) Cough Respiratory failure with hypoxia Interstitial lung disease Depression, major, recurrent Dyslipidemia Osteoarthritis of multiple joints Acquired hypothyroidism Heart murmur Fibromyalgia Diabetes Surgical History Hx of tonsillectomy S/P appendectomy Hx of fusion of cervical spine S/P anal fissurectomy H/O hemorrhoidectomy S/P partial hysterectomy Family History Family History Brother Substance use disorder Son Substance use disorder Daughter Substance use disorder Social History Social History Household Members: Children Household Members Other:: Lives alone granddaughter lives in attached house Housing: House Do you presently have visiting nurse or other home services: No Alcohol intake: current Alcohol intake frequency: holidays/special occasions only Patient Tobacco Use Status: Former Tobacco user Quit Date: 15 years ago Tobacco use type: Cigarette Years Smoked: 20 +/- on and off Smoked in Last 30 Days: No e-Cigarette/Vaping Use: Never Used Second Hand Smoke Exposure: No Use of substances other than those prescribed or required for medical reasons: No Advance Directives: Yes Advance Directives on File: Yes Advance Directives Date on File: 02/03/23 service: No Current occupational status: retired Current occupation: right handed Cognitive needs: No Hearing needs: No Vision needs: Yes Physical Exam Vital Signs: Vital Signs: Last Vital Signs Temp 98.1 F 08/03/23 21:38 Pulse 93 08/03/23 21:38 Resp 14 08/03/23 21:38 BP 118/48 L 08/03/23 21:38 Pulse Ox 97 08/03/23 21:38 O2 Del Method Room Air 08/03/23 21:38 BMI result Body Mass Index 36.7 Const: General: cooperative, healthy appearing, comfortable and no acute distress Orientation/consciousness: patient oriented x3 Limitations: no limitations HEENT: Head: Yes normal to inspection Ears: hearing grossly normal bilaterally General nose exam: Normal external nose present Face and sinus: Yes normal facial exam Mouth: Normal oral and palatal mucosa present Throat: Yes posterior oropharynx normal Eyes: General: appearance normal, both eyes and all related structures Pupils: Equal, round and reactive pupils present Neck: Neck: Yes normal visual inspection Chest: Chest palpation & inspection: normal inspection of the chest Resp: Effort & Inspection: normal respiratory effort Auscultation: clear to auscultation bilaterally Cardio: Rate: regular rate Rhythm: regular rhythm Peripheral pulses: Peripheral pulses 2+ throughout GI: Inspection: Yes normal to inspection Palpation (GI): Soft to palpation and Tenderness to palpation present (GI) suprapubicly Auscultation: normal bowel sounds : Other: +clots evacuated from the vaginal canal-moderate bleeding Mass seen at the anterior vaginal canal 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 Back/Spine/Pelvis: Thoracic/Lumbar Spine: thoracic and lumbar spine normal to inspection Skin: General skin exam: no rashes or lesions noted Neuro: General: patient oriented x3, no focal motor deficits and normal sensation to monofilament Cranial nerves: Yes Equal, round and reactive pupils present Cognition (Neuro): normal cognition Speech: No Abnormal speech present Gait exam (Neuro): Normal gait present Motor exam (neuro): 5/5 motor strength present throughout Extrem: General: Yes normal to inspection Medications Administered Discontinued Medications Generic Name Dose Route Start Last Admin Trade Name Freq PRN Reason Stop Dose Admin Morphine Sulfate 4 mg 08/03/23 16:59 08/03/23 17:40 Morphine Sulfate 4 Mg/Ml Cartridge IVPUSH 08/03/23 17:00 4 mg ONCE ONE Administration Protocol Morphine Sulfate 4 mg 08/03/23 20:14 08/03/23 20:49 Morphine Sulfate 4 Mg/Ml Cartridge IVPUSH 08/03/23 20:15 4 mg ONCE ONE Administration Protocol Medical Decision Making Medical Decision Making MDM Narrative: 82 yo female with history of CHF, ESRD on HD (M, W, F), h/o partial hyst (not secondary to malignancy) here with complaints of vaginal bleeding x 1 weeks worsening over the last 24 hrs, with abdominal cramping. No AC therapy use. No history of abnormal PAPs. Mild TTP to suprapubic Will need labs including T&S, CT A/P, UA Differential Diagnosis Differential Diagnoses: The differential diagnosis associated with the presentation includes malignancy Admission/Observation Consideration of admission/observation: Escalation of care including admission/observation considered Patient with vaginal bleeding with new vaginal mass with stable hemoglobin, clinically appears well can be discharged home with outpatient follow-up Consult Healthcare Provider Management of the patient was discussed with: Testing Coordinator dena-patient was seen in conjunction with Dr. Arias. On pelvic exam patient has a vaginal mass which may be vaginal in origin or urethral or bladder. He recommended patient follow-up outpatient with [facility] for additional testing and biopsy. Lab Data MDM Lab Attestation statement: I reviewed the patient's lab results. Chronic renal disease 08/03/23 18:08 08/03/23 18:08 Labs: Lab Results 08/03/23 08/03/23 Range/Units 18:08 21:06 WBC 7.2 (4.8-10.8) X10*3/uL RBC 3.79 L (4.20-5.50) X10*6/uL Hgb 12.6 D (12.0-16.0) g/dl Hct 38.0 (37.0-47.0) % MCV 100.3 H (80.0-98.0) fL MCH 33.2 H (27.0-33.0) pg MCHC 33.2 (31.0-35.0) g/dl RDW 15.8 (11.0-16.0) % Plt Count 201 (160-400) X10*3/uL MPV 10.0 (9.4-12.3) fL Immature Gran % (Auto) 0.4 (0.0-0.4) % Neut % (Auto) 61.4 (45-73) % Lymph % (Auto) 18.2 L (20-40) % Solano % (Auto) 7.0 (2-11) % Eos % (Auto) 12.4 H (0-4) % Baso % (Auto) 0.6 (0-2) % Lymph # (Auto) 1.3 (1.2-4.9) X10*3/uL Solano # (Auto) 0.5 (0.1-1.2) X10*3/uL Eos # (Auto) 0.9 H (0.0-0.4) X10*3/uL Baso # (Auto) 0.0 (0.0-0.2) X10*3/uL Abs Immat Gran (auto) 0.03 (0.00-0.03) X10*3/uL Absolute Neuts (auto) 4.4 (2.0-8.3) x10*3/uL Absolute Nucleated RBC 0.000 (0.0-0.012) X10*3/uL Nucleated RBC % (auto) 0.0 (0.0-0.2) /100WBC PT 10.7 L (11.1-13.3) SEC INR 0.9 (0.9-1.1) Sodium 134 L (135-145) mmol/L Potassium 4.5 (3.3-5.1) mmol/L Chloride 98 (96-108) mmol/L Carbon Dioxide 27 (22-29) mmol/L Anion Gap 14 (12-20) BUN 25 H (9-16) mg/dL Creatinine 3.18 H (0.5-1.4) mg/dL Estim Creat Clear Calc 13.8 Estimated GFR 14 Random Glucose 96 (60-115) mg/dL Calcium 8.8 (8.4-10.2) mg/dL Total Bilirubin 0.4 (0.0-1.0) mg/dL Direct Bilirubin 0.2 (0.0-0.5) mg/dL AST 19 (5-31) U/L ALT 12 (0-31) U/L Alkaline Phosphatase 88 (39-117) U/L Total Protein 7.3 (6.5-8.0) g/dL Albumin 3.7 (3.5-5.0) g/dL Urine Color Yellow Urine Appearance Clear Urine pH 5.0 (5.0-9.0) Ur Specific Manson 1.020 (1.005-1.025) Urine Protein Trace (Neg-Trace) mg/dL Urine Glucose (UA) Negative (Negative) mg/dL Urine Ketones Negative (Negative) mg/dL Urine Blood Large (3+) H (Negative) Urine Nitrite Negative (Negative) Ur Leukocyte Esterase Trace H (Negative) Urine RBC 6-10 H (0-2) /HPF Urine WBC 0-5 (0-5) /HPF Ur Squamous Epith Cells 6-10 (0-2) /HPF Urine Bacteria None Seen (None Seen) Hyaline Casts >20 (0-2) /LPF Blood Type A Positive Antibody Screen NEGATIVE Independent Interpretation I performed an independent interpretation of an: EKG and CT Scan Interpretation: I independently reviewed the CT scan agree with the radiology report I independently reviewed the EKG which shows normal sinus rhythm with a rate 89, normal HI, normal QRS, normal QT Radiology Impression Discussion of test interpretation with radiology: I have reviewed the radiologist's reading. Radiologist Impression: INDINGS: LUNG BASES: There is honeycombing, cystic changes and reticular stranding in both lung bases suggestive of chronic interstitial fibrosis. Heart size is normal. Mild coronary artery calcifications are present. LIVER, GALLBLADDER, AND BILIARY TREE: The liver is normal in size, shape, and attenuation. There is a 3 cm cyst lateral segment left hepatic lobe. No additional lesions seen. No intrahepatic biliary ductal dilatation is present. The gallbladder is unremarkable with no evidence of radiopaque gallstones, gallbladder wall thickening, or obvious pericholecystic inflammatory changes. PANCREAS: There is complete fatty infiltration pancreas and barely visible. SPLEEN: There is a 1.2 cm ill-defined hypodensity on coronal image 67/6, stable ADRENAL GLANDS: Unremarkable. KIDNEYS AND URETERS: Both kidneys are small with mild cortical atrophy right kidney. There are several cysts in the right kidney largest in lower pole with peripheral superior wall calcification measuring 3.9 cm in craniocaudad length and 3 Hounsfield units. Grossly stable. No radiopaque calculi or hydronephrosis. BLADDER: Unremarkable. GASTROINTESTINAL TRACT: There is scattered stool, diverticuli and gas seen in colon without significant distention or diverticulitis. The small bowel loops are normal caliber. Appendix is not visualized. The stomach is nondistended. ABDOMINAL WALL: There is umbilical hernia measuring 2.2 cm wide neck. LYMPH NODES: Normal. VASCULAR: There is arthroscopic calcification of abdominal aorta without aneurysmal dilatation. PELVIC VISCERA: There is no free air or free fluid. There is mild fullness in the cervical vaginal region. The uterus is atrophied or surgically absent. No pelvic mass or abnormal lymphadenopathy. OSSEOUS STRUCTURES: There are degenerative disc changes virtually every disc level lower thoracic and lumbar spine sparing the L5-S1 disc level. No aggressive lytic or sclerotic process seen. Lower thoracic posterior epidural spinal electrode is seen CT/CT abdomen pelvis wo IV con IMPRESSION: 1. No acute intra-abdominal process seen. 2. Small bilateral kidneys with mild cortical atrophy right kidney. Right renal cysts are stable. 3. Left hepatic cyst is stable. 4. Small umbilical hernia is stable. 5. Degenerative disc changes lower thoracic and lumbar spine. No aggressive lytic or sclerotic process seen. 6. Mild fullness in the cervical/vaginal region. Recommend direct visualization. Fleischner guidelines were followed. Independent Historian Clinical information obtained from an independent historian. History obtained from or confirmed by: EMS Critical Care Time Critical Care Time Critical Care Time: Yes Total Critical Care Time: 45 Attestation: New vaginal requiring urgent Gynecology consultation and or discussion Discharge Plan Discharge Clinical Impression: Vaginal mass Patient Disposition: Home, Self-Care Instructions: Pelvic Pain (ED) Additional Instructions: On exam you have a mass within the vagina. You were seen by our wire spring relay adjuster here in the emergency room recommended that you follow-up with [facility] as you will likely need additional imaging and a biopsy to rule out cancer. Please return for any worsening symptoms Prescriptions: No Action (DME) wheelchair with footrests See Rx Instructions .Route .MEDSUPPLY Qty: 1 0RF Rx Instructions: As directed (DME) blood pressure test kit-medium Kit See Rx Instructions .Route Qty: 1 0RF Rx Instructions: As directed (DME) bedside commode Kit See Rx Instructions .Route Qty: 1 0RF Rx Instructions: As directed (DME) grab bar for bathroom See Rx Instructions .Route .MEDSUPPLY Qty: 2 0RF Rx Instructions: As directed citalopram 20 mg tablet 20 mg PO DAILY Qty: 300 3RF levothyroxine 100 mcg tablet 100 mcg PO DAILY@0600 famotidine 20 mg tablet 20 mg PO DAILY albuterol sulfate 90 mcg/actuation HFA aerosol inhaler 2 puff inhalation Q4H PRN (Reason: Shortness Of Breath Or Wheezing) aspirin 81 mg Tablet,Delayed Release (Dr/Ec) 81 mg PO DAILY Qty: 90 0RF metoprolol tartrate 25 mg tablet 12.5 mg PO BID Qty: 180 0RF atorvastatin 20 mg tablet 20 mg PO BEDTIME furosemide 40 mg Tablet 40 mg PO BID@0900,1800 Qty: 60 0RF Protocol: Hold for SBP< HOLD for SBP < : 90 gabapentin 100 mg capsule 100 mg PO TID vancomycin in 0.9 % sodium chl 500 mg/100 mL piggyback 500 mg IV MOWEFR Rx Instructions: During dialysis Trelegy Ellipta 100-62.5-25 mcg blister with device 1 ea inhalation DAILY Qty: 60 3RF ranolazine 500 mg tablet extended release 12 hr 500 mg PO BID 90 Days Qty: 180 3RF nitroglycerin 0.4 mg tablet, sublingual 0.4 mg sublingual Q5M PRN (Reason: chest pain) Qty: 30 5RF Rx Instructions: do not exceed 3 doses per episode Referrals: [facility] [Outside] - 1 week
[2023-08-03] MEDS: Morphine Sulfate 4 MG/ML CARTRIDGE IVPUSH ×2 (17:40→20:49)
--- NOTE | 2023-08-03 17:47 | PC.NURSE ---
Alert and oriented, reports lower abdominal cramping and interal vaginal pain. Reports bleeding that started this morning. Denies lightheadedness or dizziness . 22g placed in left hand
[2023-08-03 18:14] LABS: MANUAL DIFF FLAG NO
[2023-08-03 18:15] LABS: Basophils Percent Auto 0.6 % (0-2); Eosinophils Absolute Auto 0.9 X10*3/uL (0.0-0.4); Eosinophils Percent Auto 12.4 % (0-4); Hemoglobin 12.6 g/dl (12.0-16.0); Imm Gran Abs Auto 0.03 X10*3/uL (0.00-0.03); Imm Gran Pct Auto 0.4 % (0.0-0.4); Lymphocytes Absolute Auto 1.3 X10*3/uL (1.2-4.9); Lymphocytes Percent Auto 18.2 % (20-40); Mean Corpuscular HGB Conc 33.2 g/dl (31.0-35.0); Mean Corpuscular Hemoglobin 33.2 pg (27.0-33.0); Mean Corpuscular Volume 100.3 fL (80.0-98.0); Monocytes Absolute Auto 0.5 X10*3/uL (0.1-1.2); Neutrophils Absolute Auto 4.4 x10*3/uL (2.0-8.3); Neutrophils Percent Auto 61.4 % (45-73); Platelet Count 201 X10*3/uL (160-400); Red Blood Count 3.79 X10*6/uL (4.20-5.50); Red Cell Distribution Width 15.8 % (11.0-16.0); White Blood Count 7.2 X10*3/uL (4.8-10.8)
[2023-08-03 18:28] LABS: Alanine Aminotransferase 12 U/L (0-31); Albumin Level 3.7 g/dL (3.5-5.0); Alkaline Phosphatase 88 U/L (39-117); Anion Gap 14 (12-20); Aspartate Amino Transferase 19 U/L (5-31); Bilirubin Direct 0.2 mg/dL (0.0-0.5); Bilirubin Total 0.4 mg/dL (0.0-1.0); Blood Urea Nitrogen 25 mg/dL (9-16); Calcium 8.8 mg/dL (8.4-10.2); Carbon Dioxide 27 mmol/L (22-29); Chloride 98 mmol/L (96-108); Creatinine Clr Calc Pharmacy 13.8; Estimated Glomerular Filt Rate 14; Glucose Random 96 mg/dL (60-115); Potassium 4.5 mmol/L (3.3-5.1); Sodium 134 mmol/L (135-145); Total Protein 7.3 g/dL (6.5-8.0)
[2023-08-03 18:34] LABS: INTERNATIONAL NORM RATIO 0.9 (0.9-1.1); Prothrombin Time 10.7 SEC (11.1-13.3)
--- NOTE | 2023-08-03 19:40 | PC.NURSE ---
Spoke with pt's daughter asking for updates. Informed her that pt will get a pelvic exam, otherwise labwork has been insignificant. Daughter will be here within the hour
--- NOTE | 2023-08-03 20:56 | P.CONOB_ITS ---
LOCATION MANAGER - CN: HPI Data of Consult Consult date: 08/03/23 Primary Care Provider: Christina Paiz MD Consult Narrative Narrative: I was consulted on Ludy Atkins who is a 82 year old female presented to emergency room with 1 week history of spotting and heavy vaginal bleeding this morning while she was sitting on the toilet. No history of previous vaginal bleeding. The patient had a vaginal hysterectomy age of 28 for heavy vaginal bleeding and has not had any pelvic exam for the last 20 some years. No history of abnormal Pap smears cc:: CC: BOTTLE TESTER - Review of Systems Review of Systems ROS Unobtainable: All systems reviewed & are unremarkable except as noted in HPI and below OB PMFSH Past Medical History Medical History (HFpEF) heart failure with preserved ejection fraction ESRD needing dialysis NSTEMI (non-ST elevated myocardial infarction) Cough Respiratory failure with hypoxia Interstitial lung disease Depression, major, recurrent Dyslipidemia Osteoarthritis of multiple joints Acquired hypothyroidism Heart murmur Fibromyalgia Diabetes Family History Family History Brother Substance use disorder Son Substance use disorder Daughter Substance use disorder Surgical History Surgical History Hx of tonsillectomy S/P appendectomy Hx of fusion of cervical spine S/P anal fissurectomy H/O hemorrhoidectomy S/P partial hysterectomy Social History Social History Household Members: Children Household Members Other:: Lives alone granddaughter lives in attached house Housing: House Do you presently have visiting nurse or other home services: No Alcohol intake: current Alcohol intake frequency: holidays/special occasions only Patient Tobacco Use Status: Former Tobacco user Quit Date: 15 years ago Tobacco use type: Cigarette Years Smoked: 20 +/- on and off Smoked in Last 30 Days: No e-Cigarette/Vaping Use: Never Used Second Hand Smoke Exposure: No Use of substances other than those prescribed or required for medical reasons: No Advance Directives: Yes Advance Directives on File: Yes Advance Directives Date on File: 02/03/23 service: No Current occupational status: retired Current occupation: right handed Cognitive needs: No Hearing needs: No Vision needs: Yes Meds Allergies Allergy/AdvReac Type Severity Reaction Status Date / Time NSAIDS (Non-Steroidal Allergy Unknown Verified 07/16/23 14:07 Anti-Inflamma Ilywcer-GJC-MnL Reductase AdvReac Severe LEG PAIN Verified 07/16/23 14:07 Inhibitor Home Medications Medication Instructions Recorded Confirmed Last Taken Type albuterol sulfate 90 mcg/actuation 2 puff inhalation Q4H PRN 12/28/22 07/16/23 Unknown History aerosol inhaler Shortness Of Breath Or Wheezing famotidine 20 mg tablet 20 mg PO DAILY 12/28/22 07/16/23 01/23/23 09:00 History levothyroxine 100 mcg tablet 100 mcg PO DAILY@0600 12/28/22 07/16/23 05/03/23 History atorvastatin 20 mg tablet 20 mg PO BEDTIME 01/24/23 07/16/23 05/03/23 History gabapentin 100 mg capsule 100 mg PO TID 05/04/23 07/16/23 05/03/23 History LOCATION MANAGER Physical Exam Vitals Vital signs: Temp Pulse Resp BP Pulse Ox O2 Del Method 98.2 F 91 18 128/53 L 97 Room Air 08/03/23 16:43 08/03/23 16:43 08/03/23 16:43 08/03/23 16:43 08/03/23 16:43 08/03/23 16:43 BMI result Body Mass Index 36.7 Female Genitalia (Pelvic) Vagina: Stenotic (Anterior proximal 3 x 5 vaginal wall fungating mass next to the urethral meatus) Cervix: Cervix Surgically Absent Uterus: Uterus surgically absent Adnexa/Parametria: Adnexal Mass: None Additional Comments: No active bleeding LOCATION MANAGER - Results Labs 08/03/23 18:08 08/03/23 18:08 Labs: Short CBC 08/03/23 Range/Units 18:08 WBC 7.2 (4.8-10.8) X10*3/uL Hgb 12.6 D (12.0-16.0) g/dl Hct 38.0 (37.0-47.0) % Plt Count 201 (160-400) X10*3/uL BMP 08/03/23 18:08 Sodium 134 L Potassium 4.5 Chloride 98 Carbon Dioxide 27 BUN 25 H Creatinine 3.18 H Calcium 8.8 Liver Function 08/03/23 Range/Units 18:08 Total Bilirubin 0.4 (0.0-1.0) mg/dL Direct Bilirubin 0.2 (0.0-0.5) mg/dL AST 19 (5-31) U/L ALT 12 (0-31) U/L Alkaline Phosphatase 88 (39-117) U/L Albumin 3.7 (3.5-5.0) g/dL Antibody Screen Antibody Screen NEGATIVE 08/03/23 18:[address] scan - abdomen: Radiologist's impression: ITS Impressions Abdomen/Pelvis CT 08/03/23 18:37 IMPRESSION: 1. No acute intra-abdominal process seen. 2. Small bilateral kidneys with mild cortical atrophy right kidney. Right renal cysts are stable. 3. Left hepatic cyst is stable. 4. Small umbilical hernia is stable. 5. Degenerative disc changes lower thoracic and lumbar spine. No aggressive lytic or sclerotic process seen. 6. Mild fullness in the cervical/vaginal region. Recommend direct visualization. Fleischner guidelines were followed. Assessment and Plan (1) Vaginal mass: Status: Acute Straight cath done in the emergency showed clear urine with no evidence of gross hematuria. Differential diagnosis discussed with Tram Schaefer NP includes but not limited to: Possible malignancy originating from the Vaginal wall, urethra or bladder. Recommend outpatient follow-up with OBGYN with pelvic MRI, cystoscopy and vaginal mass biopsy. Discussed the above with the patient and her family. All questions answered, the patient verbalized understanding
[2023-08-03 21:21] LABS: Appearance Urine Clear; Color Urine Yellow; Glucose Urine UA Negative (Negative); Leukocyte Esterase Urine Trace (Negative); Nitrite Urine Negative (Negative); UMIC TRIGGER UACC YES; Urine Blood Large (3+) (Negative); Urine Ketones Negative (Negative); Urine Protein Trace mg/dL (Neg-Trace)
[2023-08-03 21:38] VITALS: BP 118/48; PULSE 93; RESP 14; TEMP 36.7; O2SAT 97
[2023-08-03 21:43] LABS: Bacteria Urine None Seen (None Seen); Hyaline Casts Urine >20 /LPF (0-2); WBC Urine 0-5 /HPF (0-5)
== END 2023-08-04 00:31 | disposition home or self-care (01) ==
PROVIDERS: Nurse Practitioner Family; Emergency Provider Emergency Medicine; PCP Internal Medicine
DX: N89.9 Noninflammatory disorder of vagina, unspecified (principal); N93.9 Abnormal uterine and vaginal bleeding, unspecified
CPT/HCPCS: 36415; 51701; 74176; 80048; 80076; 81001; 85025; 85610; 86850; 86900; 86901; 93005; 96374; 96376; 99284; 99285; J2270

== ENCOUNTER → 2023-08-03 16:59 | Outpatient (BNV) | payer OTHER, SELFPAY | PROVIDERS: Emergency Provider Emergency Medicine; PCP Internal Medicine; Visit Provider Internal Medicine Cardiovascular Disease | DX: R94.31 Abnormal electrocardiogram [ECG] [EKG] (principal) | CPT/HCPCS: 93010 ==

== ENCOUNTER → 2023-08-03 17:08 | Outpatient (BNV) | payer OTHER, SELFPAY | PROVIDERS: Emergency Provider Emergency Medicine; PCP Internal Medicine; Visit Provider Obstetrics & Gynecology | DX: N89.8 Other specified noninflammatory disorders of vagina (principal) | CPT/HCPCS: 99283 ==

== ENCOUNTER 2023-08-05 23:18 | Inpatient (IN) | payer OTHER, SELFPAY ==
--- NOTE | ~2023-08-05 | MR_ITS ---
EXAMINATION: MRI PELVIS WITH AND WITHOUT CONTRAST CLINICAL INFORMATION: Reason for Exam Vaginal mass with bleeding COMPARISON: CT abdomen/pelvis 08/03/2023 TECHNIQUE: Multiple routine MRI sequences through the pelvis were obtained on a high-field 1.5 Whitney MRI before and after the uneventful administration of 9 mL of Gadavist gadolinium-based IV contrast. FINDINGS: UTERUS: Surgically absent. VAGINA: Evaluation is limited by inadequate distention of the vagina with lack of vaginal gel for the examination. Solid enhancing mass within the right aspect of the vaginal introitus measuring 1.6 x 2.1 x 2.5 cm. The anterior aspect of the mass is poorly delineated with obscured margins. There is possible invasion of the urethra with loss of associated fat plane. Solid enhancing mass within the left aspect of the vaginal introitus measuring 1.4 x 1.5 x 2.3 cm. This mass is relatively well-circumscribed. There is surrounding susceptibility artifact. RIGHT OVARY: Not well visualized. LEFT OVARY: Not well visualized. KIDNEYS: Two normally positioned kidneys are seen. No hydronephrosis. BLADDER: Decompressed with Forrester catheter in place. PELVIC FREE FLUID: No free fluid or ascites. LYMPH NODES: Left inguinal lymph node measures 1.2 x 1.4 x 1.4 cm. OTHER: Cholelithiasis. Diverticular disease of the colon. MR/MR pelvis wo/w con IMPRESSION: Enhancing masses within the vaginal introitus as described above. There is possible invasion of the urethra on the right with loss of associated fat plane. Correlation should be made with direct visualization. Enlarged left inguinal lymph node measures 1.2 x 1.4 x 1.4 cm.
--- NOTE | ~2023-08-05 | IR_ITS ---
Right upper extremity AV fistulogram with peripheral angioplasty Clinical history: Pain during dialysis. Intermittent high venous pressures Procedures: 1. Ultrasound-guided access into right brachiocephalic fistula. Permanent images were stored in PACS. 2. Left upper extremity fistulogram 3. Central venogram 4. Angioplasty of mid arm venous web with 6 mm x 3 cm balloon Clinicians: MARYA Pritchett Dr. MEDICATIONS: - Fentanyl 25 mcg, Lidocaine 1% 10 mL SQ, 3000 units Heparin - Antibiotics: None - For additional details, please see nursing flowsheet Complications: None Estimated blood loss: 5 cc Specimens: None Fluoroscopy time: 4.0 PROCEDURE NOTE: The procedure, risks, benefits, and alternatives were carefully explained to the patient and written informed consent was obtained. The patient was placed supine on the fluoroscopy table. A timeout was performed. The right arm was prepped and draped in usual sterile fashion. Maximum barrier technique was utilized. Local anesthesia was administered to the access site with 1% lidocaine. Under ultrasound guidance right brachiocephalic fistula was accessed with a 5 fr micropuncture. A permanent image was saved in PACS. Digital subtraction angiography was then performed. The central venous system was patent. A venous web was present in the venous outflow in the mid humerus. Multiple collateral veins present in the distal arm near the elbow. Reflux imaging demonstrated a patent arterial anastomosis. An 0.035 Bentson wire was inserted through the micropuncture catheter and advanced centrally. The catheter was removed, and a 7 Persian sheath was placed. 3000 units of heparin was then given intravenously. Over the wire, a 6 mm x 3 cm balloon was advanced to location of the venous web. The balloon was inflated to 14 ROGELIO. Follow-up digital subtraction angiography demonstrated improvement in venous outflow with a decrease in filling of the previously seen collateral veins. The wire and sheath were removed. A pursestring suture was placed at the access site. A dry sterile dressing was applied. There was no hematoma present at the access site. The patient was stable after the procedure. The procedure was performed with a dedicated nurse with continuous monitoring of vital signs. Permanent images of the right arm were saved and sent to PACS. IR/IR bellman captain arteriovenous shunt IMPRESSION: Right arm fistulogram with peripheral angioplasty of venous outflow web This procedure was performed by German Kohli PA-C, and directly supervised by Dr. Garner
--- NOTE | ~2023-08-05 | XR_ITS ---
EXAMINATION: XR CHEST CLINICAL INFORMATION: Cough COMPARISON: 05/13/2023 TECHNIQUE: Frontal view of the chest was obtained. FINDINGS: The lungs are mildly hypoinflated. There are mild streaky opacities towards the lung bases along with an overall coarsened appearance of the interstitium suspicious for chronic interstitial lung disease/fibrosis. No evidence of pneumothorax or significant pleural effusion. The cardiomediastinal contour is unremarkable. No acute osseous findings are seen. Spinal lead noted overlying the lower thoracic spine. XR/XR chest 1V IMPRESSION: Mild streaky bibasilar opacities and overall coarsened appearance of the interstitium, suspicious for chronic interstitial lung disease/fibrosis with mild superimposed atelectasis.
[2023-08-05 23:36] VITALS: BP 122/67; BP 162/58; PULSE 84; PULSE 88; RESP 20; TEMP 37.1; O2SAT 97; BMI 35.4
[2023-08-06] VITALS (10 sets, daily range): BP systolic 102–134; BP diastolic 40–85; PULSE 84–107; RESP 14–20; TEMP 36.3–37.4; O2SAT 97–100; BMI 35.2
[2023-08-06 00:44] LABS: MANUAL DIFF FLAG NO
[2023-08-06 00:56] LABS: Basophils Percent Auto 0.3 % (0-2); Eosinophils Percent Auto 9.4 % (0-4); Hematocrit 36.4 % (37.0-47.0); Hemoglobin 11.5 g/dl (12.0-16.0); Imm Gran Abs Auto 0.02 X10*3/uL (0.00-0.03); Imm Gran Pct Auto 0.2 % (0.0-0.4); Lymphocytes Absolute Auto 1.5 X10*3/uL (1.2-4.9); Lymphocytes Percent Auto 14.7 % (20-40); Mean Corpuscular HGB Conc 31.6 g/dl (31.0-35.0); Mean Corpuscular Volume 104.3 fL (80.0-98.0); Mean Platelet Volume 9.7 fL (9.4-12.3); Monocytes Absolute Auto 0.8 X10*3/uL (0.1-1.2); Monocytes Percent Auto 7.5 % (2-11); Neutrophils Absolute Auto 6.9 x10*3/uL (2.0-8.3); Neutrophils Percent Auto 67.9 % (45-73); Platelet Count 219 X10*3/uL (160-400); Red Blood Count 3.49 X10*6/uL (4.20-5.50); Red Cell Distribution Width 15.6 % (11.0-16.0); White Blood Count 10.2 X10*3/uL (4.8-10.8)
--- NOTE | 2023-08-06 00:59 | ECG_ITS ---
Test Reason : HIGH POTTISUM Blood Pressure : / mmHG Vent. Rate : 089 BPM Atrial Rate : 089 BPM P-R Int : 210 ms QRS Dur : 074 ms QT Int : 348 ms P-R-T Axes : 070 061 041 degrees QTc Int : 423 ms Sinus rhythm with 1st degree A-V block Otherwise normal ECG When compared with ECG of 03-AUG-2023 17:51, Criteria for Septal infarct are no longer Present T wave inversion no longer evident in Anterior leads Referred By: Crystal Barrera Electronically Signed By:Dmitry Rogers
--- NOTE | 2023-08-06 00:59 | ED_ITS ---
HPI - Female Genitourinary General Chief complaint: Vaginal Bleeding Stated complaint: ABDOMINAL PAIN Time Seen by Provider: 08/05/23 23:52 Source: patient Mode of arrival: EMS History of Present Illness HPI Narrative: 82-year-old female with significant past medical history of multiple medical comorbidities, has recently been diagnosed with a vaginal mass on Thursday and arrives via EMS today and states that she has not been feeling well for the past couple of days and endorses weakness and chronic abdominal discomfort as well as ongoing vaginal spotting. Patient reports that the vaginal spotting has increased in volume and she is awaiting her primary care provider, Izabel, to give clearance for her to see Oncology at [facility]. Patient underwent a half time of dialysis on Thursday. Related Data Home Medications Medication Instructions Recorded Confirmed albuterol sulfate 90 mcg/actuation 2 puff inhalation Q4H PRN 12/28/22 07/16/23 aerosol inhaler Shortness Of Breath Or Wheezing famotidine 20 mg tablet 20 mg PO DAILY 12/28/22 07/16/23 levothyroxine 100 mcg tablet 100 mcg PO DAILY@0600 12/28/22 07/16/23 atorvastatin 20 mg tablet 20 mg PO BEDTIME 01/24/23 07/16/23 gabapentin 100 mg capsule 100 mg PO TID 05/04/23 07/16/23 Previous Rx's Medication Instructions Recorded aspirin 81 mg tablet,delayed 81 mg PO DAILY #90 tabs 12/31/22 release metoprolol tartrate 25 mg tablet 12.5 mg (1/2 x 25 mg) PO BID #180 12/31/22 tabs nitroglycerin 0.4 mg sublingual 0.4 mg sublingual Q5M PRN chest 01/14/23 tablet pain #30 tabs ranolazine 500 mg tablet,extended 500 mg PO BID 90 days #180 tabs 01/14/23 release,12 hr furosemide 40 mg tablet 40 mg PO BID@0900,1800 #60 tabs 02/17/23 wheelchair with footrests #1 ea 03/25/23 blood pressure test kit-medium #1 ea 03/27/23 commode (bedside commode) #1 ea 03/27/23 grab bar for bathroom #2 ea 03/27/23 citalopram 20 mg tablet 20 mg PO DAILY #300 tabs 04/20/23 vancomycin 500 mg/100 mL in 0.9% 500 mg (100 mL) IV MOWEFR 05/11/23 sodium chloride intravenous piggyback fluticasone fur. 100 mcg-umeclid 1 ea inhalation DAILY #60 ea 07/16/23 62.5 mcg-vilant 25 mcg inhalat.powder (Trelegy Ellipta) Allergies Allergy/AdvReac Type Severity Reaction Status Date / Time NSAIDS (Non-Steroidal Allergy Unknown Verified 07/16/23 14:07 Anti-Inflamma Bmeolxy-VTO-JhK Reductase AdvReac Severe LEG PAIN Verified 07/16/23 14:07 Inhibitor Review of Systems 2 Review of Systems: Pertinent positives and negatives as stated in HPI [facility] Past Medical History Source: nursing notes reviewed Medical History (HFpEF) heart failure with preserved ejection fraction ESRD needing dialysis NSTEMI (non-ST elevated myocardial infarction) Cough Respiratory failure with hypoxia Interstitial lung disease Depression, major, recurrent Dyslipidemia Osteoarthritis of multiple joints Acquired hypothyroidism Heart murmur Fibromyalgia Diabetes Surgical History Hx of tonsillectomy S/P appendectomy Hx of fusion of cervical spine S/P anal fissurectomy H/O hemorrhoidectomy S/P partial hysterectomy Family History Family History Brother Substance use disorder Son Substance use disorder Daughter Substance use disorder Social History Social History Household Members: Children Household Members Other:: Lives alone granddaughter lives in attached house Housing: House Do you presently have visiting nurse or other home services: No Alcohol intake: current Alcohol intake frequency: holidays/special occasions only Patient Tobacco Use Status: Former Tobacco user Quit Date: 15 years ago Tobacco use type: Cigarette Years Smoked: 20 +/- on and off Smoked in Last 30 Days: No e-Cigarette/Vaping Use: Never Used Second Hand Smoke Exposure: No Advance Directives: Yes Advance Directives on File: Yes Advance Directives Date on File: 02/03/23 Patient : No service: No Current occupational status: retired Current occupation: right handed Cognitive needs: No Hearing needs: No Vision needs: Yes Physical Exam 2 Vital Signs: Vital Signs: Last Vital Signs Temp 99.0 F 08/06/23 06:00 Pulse 105 H 08/06/23 06:00 Resp 20 08/06/23 06:00 BP 121/44 L 08/06/23 06:00 Pulse Ox 98 08/06/23 06:00 O2 Del Method Nasal Cannula 08/06/23 06:00 O2 Flow Rate 4 08/06/23 06:00 Oxygen Flow Rate 4 08/05/23 23:36 BMI result Body Mass Index 35.4 VITAL SIGNS: Reviewed. GENERAL: Well developed, well nourished, in no acute distress. HEAD: Normocephalic/atraumatic EYES: PERRLA, EOMI EARS: Ext canals without abnormality NOSE: Nares patent bilateral OROPHARYNX: no oral lesions noted, posterior pharynx clear NECK: Supple, no adenopathy LUNGS: Normal breath sounds. No adventitious sounds or accessory muscle use. SpO2<98> on home 4 L via nasal cannula CARDIOVASCULAR: Regular rate and rhythm without noted murmurs, no JVD or lower extremity edema. ABDOMEN: Soft, non-tender, non-distended with bowel sounds. 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 MUSCULOSKELETAL: No tenderness, deformities, or effusions noted on gross inspection. EXTREMITIES: No cyanosis, clubbing or edema. RUE: AV fistula with thrill and bruit present SKIN: Inspection of the skin reveals no rashes NEUROLOGIC: Alert and oriented x 4. Strength and sensation to light touch were grossly intact x 4. Medications Administered Discontinued Medications Generic Name Dose Route Start Last Admin Trade Name Ya PRN Reason Stop Dose Admin Dextrose 25 gm 08/06/23 04:30 08/06/23 04:54 Dextrose 50 % 25 Gm/50 Ml Syringe IVPUSH 08/06/23 04:31 25 gm ONCE ONE Administration Furosemide 60 mg 08/06/23 06:39 08/06/23 06:53 Furosemide 100 Mg/10 Ml Vial IVPUSH 08/06/23 06:40 60 mg ONCE ONE Administration Protocol Calcium Gluconate 2 gm in 100 mls @ 400 mls/hr 08/06/23 04:30 08/06/23 05:30 Calcium Gluconate IV 08/06/23 04:44 Infused ONCE ONE Infusion Insulin Human Regular 5 unit 08/06/23 04:30 08/06/23 04:54 Insulin Regular, Human 100 Unit/Ml 3 Ml Vial IVPUSH 08/06/23 04:31 5 unit ONCE ONE Administration Sodium Zirconium Cyclosilicate 10 gm 08/06/23 01:21 08/06/23 01:38 Sodium Zirconium Cyclosilicate 10 Gm Powd.Pack PO 08/06/23 01:22 10 gm ONCE ONE Administration Sodium Zirconium Cyclosilicate 10 gm 08/06/23 05:30 08/06/23 05:36 Sodium Zirconium Cyclosilicate 10 Gm Powd.Pack PO 08/06/23 05:31 10 gm ONCE ONE Administration Medical Decision Making Medical Decision Making MDM Narrative: 82-year-old female with history and clinical presentation, DDX: Known vaginal mass with spotting, possible viral illness. I reviewed all investigations and hematologic indices are negative for leukocytosis or left shift, there is no thrombocytopenia patient has a macrocytic anemia that appears to be chronically stable despite patient having vaginal spotting for the past 2 weeks. Patient's blood pressure and heart rate are otherwise within normal limits. Coagulation studies are within normal limits. Chemistry indices are consistent with incomplete dialysis on Thursday with a mild hyponatremia, elevation of potassium as well as known ESRD with deranged BUN/creatinine. EKG does not demonstrate any peaked T-waves that is primarily due to the fact that the potassium levels are elevated secondary to the underlying kidney disease. Liver enzymes are within normal limits. Patient is otherwise oxygenating well, does not appear to be in respiratory distress. Repeat BMP shows a mild improvement in the potassium levels and otherwise patient remains hemodynamically stable. I have reached out to Nephrology for further recommendations regarding the potassium levels and the need to complete the dialysis. 0420: I discussed case with Nephrology who recommends bringing the patient in, they will dialyze her, in addition they will evaluate the AV site. Will proceed with a 2nd dose of Lokelma at 05:30 and in the meantime administer calcium gluconate/insulin/D50. 0441: Discussed with Dr Nova who accepts admission. Repeat BMP demonstrates that despite giving different medications patient's potassium is still 6.6, patient's glucose noted to be 55 likely secondary to having received 5 units insulin in conjunction with the amp of D50 and will receive some juice, patient is awake and alert. In addition, no acute renal changes on labwork. Patient also received 60 mg of Lasix, she is not hypoxic, blood pressure remained stable. Signed out to Dr. Ludwig in the interim until patient is formally admitted by the hospitalist. Differential Diagnosis Differential Diagnoses: The differential diagnosis associated with the presentation includes Please see the discussion above Admission/Observation Consideration of admission/observation: Escalation of care including admission/observation considered Please see the discussion above Consult Healthcare Provider Management of the patient was discussed with: Hospitalist Please see the discussions above Lab Data MDM Lab Attestation statement: I reviewed the patient's lab results. Please see the discussion above 08/06/23 00:41 08/06/23 06:22 Labs: Lab Results 08/06/23 08/06/23 08/06/23 Range/Units 00:41 01:45 02:25 WBC 10.2 (4.8-10.8) X10*3/uL RBC 3.49 L (4.20-5.50) X10*6/uL Hgb 11.5 L (12.0-16.0) g/dl Hct 36.4 L (37.0-47.0) % MCV 104.3 H (80.0-98.0) fL MCH 33.0 (27.0-33.0) pg MCHC 31.6 (31.0-35.0) g/dl RDW 15.6 (11.0-16.0) % Plt Count 219 (160-400) X10*3/uL MPV 9.7 (9.4-12.3) fL Immature Gran % (Auto) 0.2 (0.0-0.4) % Neut % (Auto) 67.9 (45-73) % Lymph % (Auto) 14.7 L (20-40) % Maverick % (Auto) 7.5 (2-11) % Eos % (Auto) 9.4 H (0-4) % Baso % (Auto) 0.3 (0-2) % Lymph # (Auto) 1.5 (1.2-4.9) X10*3/uL Maverick # (Auto) 0.8 (0.1-1.2) X10*3/uL Eos # (Auto) 1.0 H (0.0-0.4) X10*3/uL Baso # (Auto) 0.0 (0.0-0.2) X10*3/uL Abs Immat Gran (auto) 0.02 (0.00-0.03) X10*3/uL Absolute Neuts (auto) 6.9 (2.0-8.3) x10*3/uL Absolute Nucleated RBC 0.000 (0.0-0.012) X10*3/uL Nucleated RBC % (auto) 0.0 (0.0-0.2) /100WBC PT 11.1 (11.1-13.3) SEC INR 0.9 (0.9-1.1) Sodium 132 L 129 L (135-145) mmol/L Potassium 6.6 H* D 6.3 H* (3.3-5.1) mmol/L Chloride 96 98 (96-108) mmol/L Carbon Dioxide 21 L 16 L (22-29) mmol/L Anion Gap 22 H 21 H (12-20) BUN 49 H 49 H (9-16) mg/dL Creatinine 5.37 H* 5.34 H* (0.5-1.4) mg/dL Estim Creat Clear Calc 8.0 8.0 Estimated GFR 8 8 POC Glucose (60-115) mg/dL Random Glucose 91 90 (60-115) mg/dL Calcium 9.0 8.7 (8.4-10.2) mg/dL Total Bilirubin 0.5 (0.0-1.0) mg/dL AST 23 (5-31) U/L ALT 16 (0-31) U/L Alkaline Phosphatase 107 (39-117) U/L Total Protein 7.4 (6.5-8.0) g/dL Albumin 3.8 (3.5-5.0) g/dL COVID-19 (ISAAK) Negative (Negative) COVID-19 Clin Com See Note Influenza Type A (RORO) Negative (Negative) Influenza Type B (RORO) Negative (Negative) Influenza A & B Note See Note 08/06/23 08/06/23 Range/Units 05:36 06:22 WBC (4.8-10.8) X10*3/uL RBC (4.20-5.50) X10*6/uL Hgb (12.0-16.0) g/dl Hct (37.0-47.0) % MCV (80.0-98.0) fL MCH (27.0-33.0) pg MCHC (31.0-35.0) g/dl RDW (11.0-16.0) % Plt Count (160-400) X10*3/uL MPV (9.4-12.3) fL Immature Gran % (Auto) (0.0-0.4) % Neut % (Auto) (45-73) % Lymph % (Auto) (20-40) % Maverick % (Auto) (2-11) % Eos % (Auto) (0-4) % Baso % (Auto) (0-2) % Lymph # (Auto) (1.2-4.9) X10*3/uL Maverick # (Auto) (0.1-1.2) X10*3/uL Eos # (Auto) (0.0-0.4) X10*3/uL Baso # (Auto) (0.0-0.2) X10*3/uL Abs Immat Gran (auto) (0.00-0.03) X10*3/uL Absolute Neuts (auto) (2.0-8.3) x10*3/uL Absolute Nucleated RBC (0.0-0.012) X10*3/uL Nucleated RBC % (auto) (0.0-0.2) /100WBC PT (11.1-13.3) SEC INR (0.9-1.1) Sodium 131 L (135-145) mmol/L Potassium 6.6 H* (3.3-5.1) mmol/L Chloride 99 (96-108) mmol/L Carbon Dioxide 17 L (22-29) mmol/L Anion Gap 22 H (12-20) BUN 56 H (9-16) mg/dL Creatinine 5.59 H* (0.5-1.4) mg/dL Estim Creat Clear Calc 7.7 Estimated GFR 7 POC Glucose 87 (60-115) mg/dL Random Glucose 55 L* (60-115) mg/dL Calcium 9.3 D (8.4-10.2) mg/dL Total Bilirubin (0.0-1.0) mg/dL AST (5-31) U/L ALT (0-31) U/L Alkaline Phosphatase (39-117) U/L Total Protein (6.5-8.0) g/dL Albumin (3.5-5.0) g/dL COVID-19 (ISAAK) (Negative) COVID-19 Clin Com Influenza Type A (RORO) (Negative) Influenza Type B (RORO) (Negative) Influenza A & B Note Independent Interpretation I performed an independent interpretation of an: EKG Interpretation: Sinus rhythm with first-degree AV block that patient intermittently demonstrates, no STEMI, AK-210, QRS/QTC are within normal limits. Radiology Impression Discussion of test interpretation with radiology: I have reviewed the radiologist's reading. Radiologist Impression: Please see the discussion above External Record Review External record reviewed: Outpatient record, Prior outpatient labs and Prior outpatient radiology Chronic Conditions Patient?s care impacted by: Diabetes, Hypertension and Other ESRD on dialysis Critical Care Time Critical Care Time Critical Care Time: Yes Total Critical Care Time: 90 Attestation: I personally attest to this time spent taking care of the patient. Discharge Plan Discharge Clinical Impression: Vaginal mass, Vaginal spotting, Hyperkalemia, ESRD on hemodialysis, Hypoglycemia Patient Disposition: Admitted As Inpatient
[2023-08-06 01:01] LABS: INTERNATIONAL NORM RATIO 0.9 (0.9-1.1); Prothrombin Time 11.1 SEC (11.1-13.3)
[2023-08-06 01:13] LABS: Alanine Aminotransferase 16 U/L (0-31); Albumin Level 3.8 g/dL (3.5-5.0); Alkaline Phosphatase 107 U/L (39-117); Anion Gap 22 (12-20); Aspartate Amino Transferase 23 U/L (5-31); Bilirubin Total 0.5 mg/dL (0.0-1.0); Blood Urea Nitrogen 49 mg/dL (9-16); Carbon Dioxide 21 mmol/L (22-29); Chloride 96 mmol/L (96-108); Estimated Glomerular Filt Rate 8; Glucose Random 91 mg/dL (60-115); Potassium 6.6 mmol/L (3.3-5.1); Sodium 132 mmol/L (135-145); Total Protein 7.4 g/dL (6.5-8.0)
--- NOTE | 2023-08-06 01:25 | MHC.EDTECH ---
PATIENT EKG TAKEN ,AND WAS READ BY PROVIDER ,PATIENT WAS HOOKED UP TO FIBER WORKER ,VITALS TAKEN ,PATIENT SLEEPING ,CALL CHOU WITHIN PT REACH .
[2023-08-06] MEDS: Sodium Zirconium Cyclosilicate 10 GM POWD.PACK PO ×2 (01:38→05:36)
[2023-08-06 02:04] LABS: COVID-19 Test Negative (Negative); IDNOW Serial# 152EDE1D
[2023-08-06 02:09] LABS: IDNOW Serial# 08D9AD1C; Influenza A Negative (Negative); Influenza B2 Negative (Negative)
[2023-08-06 02:53] LABS: Anion Gap 21 (12-20); Blood Urea Nitrogen 49 mg/dL (9-16); Calcium 8.7 mg/dL (8.4-10.2); Carbon Dioxide 16 mmol/L (22-29); Chloride 98 mmol/L (96-108); Estimated Glomerular Filt Rate 8; Glucose Random 90 mg/dL (60-115); Potassium 6.3 mmol/L (3.3-5.1); Sodium 129 mmol/L (135-145)
--- NOTE | 2023-08-06 03:21 | PC.NURSE ---
hand off report to reinaldo verde
[2023-08-06] MEDS: Calcium Gluconate/NaCl,Iso-Osm 2 GM/100 ML PLAST..BAG IV (04:53)
[2023-08-06] MEDS: Insulin Regular, Human 100 UNIT/ML 3 ML VIAL IVPUSH (04:54)
[2023-08-06] MEDS: Dextrose 50 % 25 GM/50 ML SYRINGE IVPUSH ×3 (04:54→07:25)
--- NOTE | 2023-08-06 04:59 | PC.NURSE ---
ultrasound guided iv established L. ac 20G. pt medicated per sep. nad. resting comfortably. resp even and unlabored. call barros within reach.
[2023-08-06 05:40] LABS: Glucose, Whole Blood 87 mg/dL (60-115)
--- NOTE | 2023-08-06 06:25 | MHC.EDTECH ---
patient bmp drawn and sent to lab ,vitals taken ,pt was soiled small amount of blood in brief ,care given and Pt belonging list done ,Pt resting quietly in bed .
--- NOTE | 2023-08-06 06:47 | MHC.EDTECH ---
Pure wick in place .
[2023-08-06 06:49] LABS: Anion Gap 22 (12-20); Blood Urea Nitrogen 56 mg/dL (9-16); Calcium 9.3 mg/dL (8.4-10.2); Carbon Dioxide 17 mmol/L (22-29); Chloride 99 mmol/L (96-108); Creatinine Clr Calc Pharmacy 7.7; Estimated Glomerular Filt Rate 7; Glucose Random 55 mg/dL (60-115); Potassium 6.6 mmol/L (3.3-5.1); Sodium 131 mmol/L (135-145)
[2023-08-06] MEDS: Furosemide 100 MG/10 ML VIAL 60 MG IVPUSH (06:53)
--- NOTE | 2023-08-06 06:56 | PC.NURSE ---
critical called in to dr umana for bgl 55. 2 juices given to pt. pt medicated per sep. dr. umana aware of hr/vs.
--- NOTE | 2023-08-06 07:07 | PC.NURSE ---
PT'S DAUGHTER EMMANUEL ([phone]) CALLED AND WAS UPDATED ON PT STATUS.
--- NOTE | 2023-08-06 07:07 | MHC.EDTECH ---
AFTER GIVEN 2 JUICE PATIENT BLOOD SUGAR WAS CHECK AND IT DROP TO 52 ,RN MELVIN WAS MADE AWARE ,THIS PCT GIVE PATIENT 120 ML ORANGE JUICE WITH 3 SUGAR PACKET ,SAW SUPERINTENDENT DARCI CAME IN TO PATIENT ROOM TO GIVE MEDS .
[2023-08-06 07:13] LABS: Glucose, Whole Blood 52 mg/dL (60-115)
[2023-08-06 07:34] LABS: Glucose, Whole Blood 172 mg/dL (60-115)
[2023-08-06] MEDS: 0.9 % Sodium Chloride Flush 3 ML SYRINGE IVFLUSH ×3 (08:15→22:03)
--- NOTE | 2023-08-06 08:36 | PC.NURSE ---
Pinned to the unit for admission, however when to HD before being admitted to the unit.
--- NOTE | 2023-08-06 10:40 | PHA.MEDREC ---
Pharmacy Consult ? Medication Reconciliation Pharmacy has completed the medication reconciliation. Spoke to daughter Claudette and confirmed medication list. The meds that are listed are what patient is taking.
[2023-08-06] MEDS: HYDROmorphone HCl 0.5 MG/0.5 ML SYRINGE IVPUSH (11:52)
--- NOTE | 2023-08-06 14:03 | PM.IMHP ---
History of Present Illness Date of Service: 08/06/23 Chief Complaint: Fistula problem. An 82 years old lady with PMH of ESRD on HD, Vaginal mass , CHF, HLD, OA, ILD depression among others who presents to the hospital for evaluation of vaginal bleeding and fistula problem. The patient was evaluated few days earlier in ED by Gyne for vaginal bleeding mass with a plan for outpatient follow up with [facility] oncology that did not materialize yet. mainly spotting. Hb stable. She also had pain and resistance when she have dialysis from her fistula site. she can not finish sessions many time because of this pain and feeling uncomfortable. admitted for further evaluation Review of Systems Review of Systems: No fever, chills vut reporting weakness No chest pain, palpitation No shortness of breath or coughing No abdominal pain, nausea or vomiting No urinary symptoms vaginal spotting PMFSH Medical History (HFpEF) heart failure with preserved ejection fraction ESRD needing dialysis NSTEMI (non-ST elevated myocardial infarction) Cough Respiratory failure with hypoxia Interstitial lung disease Depression, major, recurrent Dyslipidemia Osteoarthritis of multiple joints Acquired hypothyroidism Heart murmur Fibromyalgia Diabetes Family History Brother Substance use disorder Son Substance use disorder Daughter Substance use disorder Surgical History Hx of tonsillectomy S/P appendectomy Hx of fusion of cervical spine S/P anal fissurectomy H/O hemorrhoidectomy S/P partial hysterectomy Social History Household Members: None Household Members Other:: Lives alone granddaughter lives in attached house Housing: House Do you presently have visiting nurse or other home services: No Unable to assess alcohol history related to: Unknown Alcohol intake: current Alcohol intake frequency: holidays/special occasions only Patient Tobacco Use Status: Former Tobacco user Quit Date: 15 years ago Tobacco use type: Cigarette Years Smoked: 20 +/- on and off e-Cigarette/Vaping Use: Never Used Second Hand Smoke Exposure: No Advance Directives Date on File: 02/03/23 service: No Current occupational status: retired Current occupation: right handed Cognitive needs: No Hearing needs: No Vision needs: Yes Meds Allergies Allergy/AdvReac Type Severity Reaction Status Date / Time NSAIDS (Non-Steroidal Allergy Unknown Verified 07/16/23 14:07 Anti-Inflamma Znehyge-DGB-MdI Reductase AdvReac Severe LEG PAIN Verified 07/16/23 14:07 Inhibitor Active Medications: Current Medications Acetaminophen (Acetaminophen 325 Mg Tablet) 650 mg PO Q6H PRN PRN Reason: Pain, Mild (Pain Scale 1-3) Ondansetron HCl (Ondansetron Hcl 4 Mg/2 Ml Vial) 4 mg IVPUSH Q8H PRN PRN Reason: Nausea and Vomiting Sodium Chloride (0.9 % Sodium Chloride Flush 3 Ml Syringe) [facility] Last Admin: 08/06/23 08:15 Dose: 3 ml Home Medications Medication Instructions Recorded Confirmed Last Taken Type albuterol sulfate 90 mcg/actuation 2 puff inhalation Q4H PRN 12/28/22 08/06/23 Unknown History aerosol inhaler Shortness Of Breath Or Wheezing famotidine 20 mg tablet 20 mg PO DAILY 12/28/22 08/06/23 08/05/23 History levothyroxine 100 mcg tablet 100 mcg PO DAILY@0600 12/28/22 08/06/23 08/05/23 History atorvastatin 20 mg tablet 20 mg PO BEDTIME 01/24/23 08/06/23 08/05/23 History gabapentin 100 mg capsule 100 mg PO TID 05/04/23 08/06/23 08/05/23 History Physical Exam Vital Signs and Narrative: Vital Signs: Last Vital Signs Temp 98.3 F 08/06/23 11:37 Pulse 102 H 08/06/23 11:37 Resp 17 08/06/23 11:37 BP 134/62 08/06/23 11:37 Pulse Ox 100 08/06/23 11:48 O2 Del Method Nasal Cannula 08/06/23 11:48 O2 Flow Rate 2 08/06/23 11:48 Oxygen Flow Rate 4 08/05/23 23:36 BMI result Body Mass Index 35.2 Const: Other: Constitutional : Awake, sleepy, frail, not in distress Neck : Normal inspection, Supple Cardiovascular : RRR, no JVP, no lower extremity edema Respiratory : good bilateral air entry, no crackles Gastrointestinal: soft, lax, Normal bowel sounds, Non tender Skin : Warm, Dry, LUE fistula Neurological : Alert & oriented x3, No focal deficit Results Labs 08/06/23 00:41 08/06/23 06:22 Labs: Laboratory Results - last 24 hr 08/06/23 08/06/23 08/06/23 00:41 01:45 02:25 MCV 104.3 H MCH 33.0 MCHC 31.6 RDW 15.6 Plt Count 219 MPV 9.7 Immature Gran % (Auto) 0.2 Neut % (Auto) 67.9 Lymph % (Auto) 14.7 L [place] % (Auto) 7.5 Eos % (Auto) 9.4 H Baso % (Auto) 0.3 Lymph # (Auto) 1.5 [place] # (Auto) 0.8 Eos # (Auto) 1.0 H Baso # (Auto) 0.0 Abs Immat Gran (auto) 0.02 Absolute Neuts (auto) 6.9 Absolute Nucleated RBC 0.000 Nucleated RBC % (auto) 0.0 PT 11.1 INR 0.9 Anion Gap 22 H 21 H Estim Creat Clear Calc 8.0 8.0 Estimated GFR 8 8 POC Glucose Random Glucose 91 90 Calcium 9.0 8.7 Total Bilirubin 0.5 AST 23 ALT 16 Alkaline Phosphatase 107 Total Protein 7.4 Albumin 3.8 COVID-19 (ISAAK) Negative COVID-19 Clin Com See Note Influenza Type A (RORO) Negative Influenza Type B (RORO) Negative Influenza A & B Note See Note 08/06/23 08/06/23 08/06/23 05:36 06:22 07:02 MCV MCH MCHC RDW Plt Count MPV Immature Gran % (Auto) Neut % (Auto) Lymph % (Auto) [place] % (Auto) Eos % (Auto) Baso % (Auto) Lymph # (Auto) [place] # (Auto) Eos # (Auto) Baso # (Auto) Abs Immat Gran (auto) Absolute Neuts (auto) Absolute Nucleated RBC Nucleated RBC % (auto) PT INR Anion Gap 22 H Estim Creat Clear Calc 7.7 Estimated GFR 7 POC Glucose 87 52 L* Random Glucose 55 L* Calcium 9.3 D Total Bilirubin AST ALT Alkaline Phosphatase Total Protein Albumin COVID-19 (ISAAK) COVID-19 Clin Com Influenza Type A (RORO) Influenza Type B (RORO) Influenza A & B Note 08/06/23 07:31 MCV MCH MCHC RDW Plt Count MPV Immature Gran % (Auto) Neut % (Auto) Lymph % (Auto) [place] % (Auto) Eos % (Auto) Baso % (Auto) Lymph # (Auto) [place] # (Auto) Eos # (Auto) Baso # (Auto) Abs Immat Gran (auto) Absolute Neuts (auto) Absolute Nucleated RBC Nucleated RBC % (auto) PT INR Anion Gap Estim Creat Clear Calc Estimated GFR POC Glucose 172 H Random Glucose Calcium Total Bilirubin AST ALT Alkaline Phosphatase Total Protein Albumin COVID-19 (ISAAK) COVID-19 Clin Com Influenza Type A (RORO) Influenza Type B (RORO) Influenza A & B Note Imaging Radiologist's Impressions: Impressions Chest X-Ray 08/06/23 01:11 IMPRESSION: Mild streaky bibasilar opacities and overall coarsened appearance of the interstitium, suspicious for chronic interstitial lung disease/fibrosis with mild superimposed atelectasis. Assessment and Plan (1) ESRD on hemodialysis: Status: Acute (2) Hyperkalemia: Status: Acute (3) Vaginal spotting: Status: Acute (4) Vaginal mass: Status: Acute (5) Dysphagia: Status: Acute Plan An 82 years old lady with PMH of ESRD on HD, Vaginal mass , CHF, HLD, OA, ILD depression among others who presents to the hospital for evaluation of vaginal bleeding and fistula problem. Need of dialysis Nephro following To do dialysis today Fistula problem Pain meds Vascular evaluation Vaginal bleeding mass Gyne and urology evaluation Recent MSSA bacteremia Vancomycin post hemodialysis finished it 06/08/23 Chronic hypoxic and hypercapnic respiratory failure on 4 L due to COPD/ild stable, not in exacerbation Lrk-[id number] type 2 diabetes continue diabetic diet, SSI, POCs CAD Continue aspirin, statin, Ranexa Hypothyroid Synthroid Chronic diastolic CHF Still makes urine, continue Lasix Severe obesity with BMI 36 weight loss encouraged DVT prophylaxis with heparin subQ DNR/DNI The patient will likely need 2 or more overnight hospital stay pending consultants opinion, tolerating dialysis and fix the fistula problem. Quality Stroke Does the patient have a stroke diagnosis?: No VTE Prior VTE?: No VTE Risk Level:: Medical - moderate - high VTE Device Contraindication: Treatment Not Indicated VTE Drug Contraindication: N/A - Med Ordered
--- NOTE | 2023-08-06 14:19 | MHC.CM.PN ---
IMM 08/06/22 Female 82 brought from [facility]. Patient c/o ab pain. She tolerated half of her HD session and was sent to [facility]. She received another Half HD session today. She lives with her family. Her grandaughter is her [employer]. She receives HD -- @ [facility]. The patient was seen 08/03/23 [facility]. A vaginal mass was DX. Follow up planned [facility] oncology. The patient returns with pain. DP home via BLS. [employer] services will resume. Patient has been active with [facility] in the recent past. [facility] is her preference, the referral has been sent. DP home with resumption of [employer] HD and possible [facility]. CM will follow
--- NOTE | 2023-08-06 14:59 | PC.NURSE ---
Per , hold Narcotics.
[2023-08-06 15:08] LABS: Glucose, Whole Blood 99 mg/dL (60-115)
[2023-08-06] MEDS: Gabapentin 100 MG CAPSULE PO ×2 (16:23→21:59)
[2023-08-06 16:41] LABS: Appearance Urine Clear; Color Urine Yellow; Glucose Urine UA Negative (Negative); Leukocyte Esterase Urine Negative (Negative); Nitrite Urine Negative (Negative); PH 5.5 (5.0-9.0); UMIC TRIGGER UACC YES; Urine Blood Trace (Negative); Urine Ketones Negative (Negative); Urine Protein Trace mg/dL (Neg-Trace)
[2023-08-06 16:52] LABS: Bacteria Urine None Seen (None Seen); RBC Urine 0-2 /HPF (0-2); Squamous Epithelial Cell Urine 0-2 /HPF (0-2); WBC Urine 0-5 /HPF (0-5)
[2023-08-06] MEDS: Furosemide 40 MG TABLET PO (17:03)
[2023-08-06] MEDS: Metoprolol Tartrate 12.5 MG HALFTAB PO (21:58)
[2023-08-06] MEDS: Atorvastatin Calcium 20 MG TABLET PO (21:59)
[2023-08-06] MEDS: Ranolazine 500 MG TAB.ER.12H PO (21:59)
--- NOTE | 2023-08-06 22:06 | P.PNNP_ITS ---
Subjective Subjective Date of Service: 08/06/23 Interval history: Pt seen on HD earler No CP C/o pain in the AVF Physical Exam 2 Vital Signs: Vital Signs: Last Vital Signs Temp 98.3 F 08/06/23 19:03 Pulse 97 08/06/23 19:03 Resp 20 08/06/23 19:03 BP 132/58 L 08/06/23 19:03 Pulse Ox 97 08/06/23 19:03 O2 Del Method Nasal Cannula 08/06/23 19:03 O2 Flow Rate 4 08/06/23 19:03 Oxygen Flow Rate 4 08/05/23 23:36 BMI result Body Mass Index 35.2 Const: General: comfortable, no acute distress, alert and awake Nutritional Appearance: well nourished HEENT: Head: Yes normocephalic and Yes atraumatic Eyes: Eyelids: Yes eyelids normal Conjunctivae: conjunctivae normal S clerae: sclerae normal Corneas: corneas normal Pupils: Equal, round and reactive pupils present EOM: EOMs intact bilaterally Neck: Neck: Yes full ROM Resp: Effort & Inspection: normal respiratory effort, able to speak in complete sentences and not labored GI: Inspection: No distended Palpation (GI): Soft to palpation, not firm, nontender, no guarding and not rigid Skin: General skin exam: elasticity normal Neuro: Other: Nut Sifter strength bilaterally is 4-5 Strength to bilateral upper extremities is 4-5 to major muscle groups. Strength to lower extremities bilaterally is 2/5 with flexion Cranial nerves: Yes CN's II-XII intact bilaterally, Yes Equal, round and reactive pupils present and Yes Bilaterally intact EOM present Cognition (Neuro): normal cognition Speech: Abnormal speech present slurred (Patient's speech is mostly clear but occasionally will have slurred words); Negative for stuttering or complete aphasia Motor exam (neuro): strength not 5/5 throughout Extrem: Other: Moving all extremities well without any obvious deformities Objective Data Labs 08/06/23 00:41 08/06/23 06:22 Labs: Laboratory Results - last 24 hr 08/06/23 08/06/23 08/06/23 00:41 01:45 02:25 WBC 10.2 RBC 3.49 L Hgb 11.5 L Hct 36.4 L MCV 104.3 H MCH 33.0 MCHC 31.6 RDW 15.6 Plt Count 219 MPV 9.7 Immature Gran % (Auto) 0.2 Neut % (Auto) 67.9 Lymph % (Auto) 14.7 L [place] % (Auto) 7.5 Eos % (Auto) 9.4 H Baso % (Auto) 0.3 Lymph # (Auto) 1.5 [place] # (Auto) 0.8 Eos # (Auto) 1.0 H Baso # (Auto) 0.0 Abs Immat Gran (auto) 0.02 Absolute Neuts (auto) 6.9 Absolute Nucleated RBC 0.000 Nucleated RBC % (auto) 0.0 PT 11.1 INR 0.9 Sodium 132 L 129 L Potassium 6.6 H* D 6.3 H* Chloride 96 98 Carbon Dioxide 21 L 16 L Anion Gap 22 H 21 H BUN 49 H 49 H Creatinine 5.37 H* 5.34 H* Estim Creat Clear Calc 8.0 8.0 Estimated GFR 8 8 POC Glucose Random Glucose 91 90 Calcium 9.0 8.7 Total Bilirubin 0.5 AST 23 ALT 16 Alkaline Phosphatase 107 Total Protein 7.4 Albumin 3.8 Urine Color Urine Appearance Urine pH Ur Specific [place] Urine Protein Urine Glucose (UA) Urine Ketones Urine Blood Urine Nitrite Ur Leukocyte Esterase Urine RBC Urine WBC Ur Squamous Epith Cells Urine Bacteria Hyaline Casts COVID-19 (ISAAK) Negative COVID-19 Clin Com See Note Influenza Type A (RORO) Negative Influenza Type B (RORO) Negative Influenza A & B Note See Note 08/06/23 08/06/23 08/06/23 05:36 06:22 07:02 WBC RBC Hgb Hct MCV MCH MCHC RDW Plt Count MPV Immature Gran % (Auto) Neut % (Auto) Lymph % (Auto) [place] % (Auto) Eos % (Auto) Baso % (Auto) Lymph # (Auto) [place] # (Auto) Eos # (Auto) Baso # (Auto) Abs Immat Gran (auto) Absolute Neuts (auto) Absolute Nucleated RBC Nucleated RBC % (auto) PT INR Sodium 131 L Potassium 6.6 H* Chloride 99 Carbon Dioxide 17 L Anion Gap 22 H BUN 56 H Creatinine 5.59 H* Estim Creat Clear Calc 7.7 Estimated GFR 7 POC Glucose 87 52 L* Random Glucose 55 L* Calcium 9.3 D Total Bilirubin AST ALT Alkaline Phosphatase Total Protein Albumin Urine Color Urine Appearance Urine pH Ur Specific [place] Urine Protein Urine Glucose (UA) Urine Ketones Urine Blood Urine Nitrite Ur Leukocyte Esterase Urine RBC Urine WBC Ur Squamous Epith Cells Urine Bacteria Hyaline Casts COVID-19 (ISAAK) COVID-19 Clin Com Influenza Type A (RORO) Influenza Type B (RORO) Influenza A & B Note 08/06/23 08/06/23 08/06/23 07:31 15:03 15:35 WBC RBC Hgb Hct MCV MCH MCHC RDW Plt Count MPV Immature Gran % (Auto) Neut % (Auto) Lymph % (Auto) [place] % (Auto) Eos % (Auto) Baso % (Auto) Lymph # (Auto) [place] # (Auto) Eos # (Auto) Baso # (Auto) Abs Immat Gran (auto) Absolute Neuts (auto) Absolute Nucleated RBC Nucleated RBC % (auto) PT INR Sodium Potassium Chloride Carbon Dioxide Anion Gap BUN Creatinine Estim Creat Clear Calc Estimated GFR POC Glucose 172 H 99 Random Glucose Calcium Total Bilirubin AST ALT Alkaline Phosphatase Total Protein Albumin Urine Color Yellow Urine Appearance Clear Urine pH 5.5 Ur Specific [place] 1.020 Urine Protein Trace Urine Glucose (UA) Negative Urine Ketones Negative Urine Blood Trace Urine Nitrite Negative Ur Leukocyte Esterase Negative Urine RBC 0-2 Urine WBC 0-5 Ur Squamous Epith Cells 0-2 Urine Bacteria None Seen Hyaline Casts 3-5 COVID-19 (ISAAK) COVID-19 Clin Com Influenza Type A (RORO) Influenza Type B (RORO) Influenza A & B Note Procedures Date of Service Date of Service: 08/06/23 Assessment & Plan Assessment and plan (1) Encephalopathy: Status: Resolved Assessment and Plan: 82-year-old female with past medical history of ESRD, HTN, T2DM, Hyperuricemia, hypothyroidism, and COPD/Bronchitis who presents with Vaginal bleed The pt had her RUE AVF placed 12/24/22 at [facility]. ? Deloris wilson as out pt. Now with Pain in theaccess Dialyzes at [facility] REC - HD continued on MWF schedule- Will likely plan HD in AM - protect RUE AVF - 1 K bath x 1 hr followed by 2 K -2 K bath . Repeat K - No heparin - Vascular surgery eval- Pt needs a fistulogram as this is a chronic problem - ? By Vasc surgery vs IR - No need for ESAs right now -repair manager to see about [facility] vs going home with sevices Time Spent With Patient Time: Total time managing care of this patient today ____ minutes. Progress Note: Quality Stroke Does the patient have a stroke diagnosis?: No
[2023-08-07 03:17] VITALS: BP 99/51; PULSE 76; RESP 20; TEMP 36.4; O2SAT 99
[2023-08-07] MEDS: Levothyroxine Sodium 100 MCG TABLET PO (06:04)
[2023-08-07] MEDS: Acetaminophen 325 MG TABLET 650 MG PO ×2 (06:04→12:04)
[2023-08-07 06:25] LABS: Anion Gap 20 (12-20); Blood Urea Nitrogen 36 mg/dL (9-16); Calcium 8.5 mg/dL (8.4-10.2); Carbon Dioxide 20 mmol/L (22-29); Chloride 98 mmol/L (96-108); Creatinine Clr Calc Pharmacy 8.1; Estimated Glomerular Filt Rate 8; Glucose Random 82 mg/dL (60-115); Potassium 4.4 mmol/L (3.3-5.1); Sodium 134 mmol/L (135-145)
[2023-08-07 07:47] VITALS: BP 98/47; PULSE 73; RESP 16; TEMP 36; O2SAT 95
--- NOTE | 2023-08-07 08:46 | P.CNUR_ITS ---
History of Present Illness Consult details Consult date: 08/07/23 Narrative: Ludy Atkins who is a 82 year old female ESRD presented to emergency room with 1 week history of spotting and heavy vaginal bleeding. She states she saw blood in the toilet as well. The patient had a vaginal hysterectomy. Review of Systems 2 Review of Systems: 10 point ROS negative other than stated in HPI PMFSH Past Medical History Medical History (HFpEF) heart failure with preserved ejection fraction ESRD needing dialysis NSTEMI (non-ST elevated myocardial infarction) Cough Respiratory failure with hypoxia Interstitial lung disease Depression, major, recurrent Dyslipidemia Osteoarthritis of multiple joints Acquired hypothyroidism Heart murmur Fibromyalgia Diabetes Family History Family History Brother Substance use disorder Son Substance use disorder Daughter Substance use disorder Surgical History Surgical History Hx of tonsillectomy S/P appendectomy Hx of fusion of cervical spine S/P anal fissurectomy H/O hemorrhoidectomy S/P partial hysterectomy Social History Social History Household Members: None Household Members Other:: Lives alone granddaughter lives in attached house Housing: House Do you presently have visiting nurse or other home services: No Unable to assess alcohol history related to: Unknown Alcohol intake: current Alcohol intake frequency: holidays/special occasions only Patient Tobacco Use Status: Former Tobacco user Quit Date: 15 years ago Tobacco use type: Cigarette Years Smoked: 20 +/- on and off Smoked in Last 30 Days: No e-Cigarette/Vaping Use: Never Used Second Hand Smoke Exposure: No Use of substances other than those prescribed or required for medical reasons: Unknown Currently Displaying Signs/Symptoms of Drug Intoxication Withdrawal: No Advance Directives: Yes Advance Directives on File: Yes Advance Directives Date on File: 02/03/23 Do you have thoughts of harming others: None Do you have a plan to hurt others: No Plan Recently lost weight without trying: No Nutrition Risks: No Nutritional Risk Patient : No : No Poor oral hygiene: No service: No Current occupational status: retired Current occupation: right handed Cognitive needs: No Hearing needs: No Vision needs: Yes Meds Allergies Allergy/AdvReac Type Severity Reaction Status Date / Time NSAIDS (Non-Steroidal Allergy Unknown Verified 07/16/23 14:07 Anti-Inflamma Siwndvk-PRD-PoI Reductase AdvReac Severe LEG PAIN Verified 07/16/23 14:07 Inhibitor Active Medications: Current Medications Acetaminophen (Acetaminophen 325 Mg Tablet) 650 mg PO Q6H PRN PRN Reason: Pain, Mild (Pain Scale 1-3) Last Admin: 08/07/23 06:04 Dose: 650 mg Albuterol Sulfate (Albuterol Sulfate 90 Mcg 8 Gm Inhaler) 2 puff INHALE Q4H PRN PRN Reason: Shortness Of Breath Or Wheezing Atorvastatin Calcium (Atorvastatin Calcium 20 Mg Tablet) 20 mg PO BEDTIME [facility] Last Admin: 08/06/23 21:59 Dose: 20 mg Escitalopram Oxalate (Escitalopram Oxalate 10 Mg Tablet) 10 mg PO DAILY [facility] Famotidine (Famotidine 20 Mg Tablet) 20 mg PO DAILY [facility] Furosemide (Furosemide 40 Mg Tablet) 40 mg PO BID@0900,1800 [facility]; Protocol Last Admin: 08/06/23 17:03 Dose: 40 mg Gabapentin (Gabapentin 100 Mg Capsule) 100 mg PO TID [facility] Last Admin: 08/06/23 21:59 Dose: 100 mg Levothyroxine Sodium (Levothyroxine Sodium 100 Mcg Tablet) 100 mcg PO DAILY@0600 [facility] Last Admin: 08/07/23 06:04 Dose: 100 mcg Metoprolol Tartrate (Metoprolol Tartrate 12.5 Mg Halftab) 12.5 mg PO BID [facility]; Protocol Last Admin: 08/06/23 21:58 Dose: 12.5 mg Nitroglycerin (Nitroglycerin 0.4 Mg Tab.Subl) 0.4 mg SUBLINGUAL Q5M PRN PRN Reason: chest pain Ondansetron HCl (Ondansetron Hcl 4 Mg/2 Ml Vial) 4 mg IVPUSH Q8H PRN PRN Reason: Nausea and Vomiting Ranolazine (Ranolazine 500 Mg Tab.Er.12h) 500 mg PO BID [facility] Last Admin: 08/06/23 21:59 Dose: 500 mg Sodium Chloride (0.9 % Sodium Chloride Flush 3 Ml Syringe) 3 ml IVFLUSH QSHIFT [facility] Last Admin: 08/06/23 22:03 Dose: 3 ml Home Medications Medication Instructions Recorded Confirmed Last Taken Type albuterol sulfate 90 mcg/actuation 2 puff inhalation Q4H PRN 12/28/22 08/06/23 Unknown History aerosol inhaler Shortness Of Breath Or Wheezing famotidine 20 mg tablet 20 mg PO DAILY 12/28/22 08/06/23 08/05/23 History levothyroxine 100 mcg tablet 100 mcg PO DAILY@0600 12/28/22 08/06/23 08/05/23 History atorvastatin 20 mg tablet 20 mg PO BEDTIME 01/24/23 08/06/23 08/05/23 History gabapentin 100 mg capsule 100 mg PO TID 05/04/23 08/06/23 08/05/23 History Physical Exam 2 Vital Signs: Vital Signs: Last Vital Signs Temp 96.8 F 08/07/23 07:47 Pulse 73 08/07/23 07:47 Resp 16 08/07/23 07:47 BP 98/47 L 08/07/23 07:47 Pulse Ox 95 08/07/23 07:47 O2 Del Method Nasal Cannula 08/07/23 07:47 O2 Flow Rate 2 08/07/23 07:47 Oxygen Flow Rate 4 08/05/23 23:36 BMI result Body Mass Index 35.2 Const: General: cooperative, healthy appearing and no acute distress O rientation/consciousness: patient oriented x3 HEENT: Head: Yes normal to inspection, Yes normocephalic and Yes atraumatic Eyes: Conjunctivae: conjunctivae normal Neck: Neck: Yes normal visual inspection and Yes trachea midline Chest: Chest palpation & inspection: normal inspection of the chest Resp: Effort & Inspection: normal respiratory effort Cardio: Rate: regular rate GI: Inspection: Yes normal to inspection Palpation (GI): Soft to palpation : Other: Limited vaginal exam - mass palpated on vulva, General: No no CVA tenderness Back/Spine/Pelvis: Back: No no CVA tenderness Skin: General skin exam: no rashes or lesions noted Neuro: General: patient oriented x3 Psych: Appearance: grossly normal Results Labs 08/10/23 05:35 08/10/23 05:35 Labs: Abnormal lab results 08/07/23 Range/Units 05:43 Sodium 134 L (135-145) mmol/L Carbon Dioxide 20 L (22-29) mmol/L BUN 36 H (9-16) mg/dL Creatinine 5.30 H* (0.5-1.4) mg/dL BMP 08/07/23 05:43 Sodium 134 L Potassium 4.4 D Chloride 98 Carbon Dioxide 20 L BUN 36 H Creatinine 5.30 H* Calcium 8.5 D Urine 08/06/23 Range/Units 15:35 Urine Color Yellow Urine Appearance Clear Urine pH 5.5 (5.0-9.0) Ur Specific [place] 1.020 (1.005-1.025) Urine Protein Trace (Neg-Trace) mg/dL Urine Glucose (UA) Negative (Negative) mg/dL Imaging Abdomen CT scan report/results: report reviewed and image reviewed CT scan - pelvis: report reviewed and image reviewed Additional studies: 08/03/23 EXAMINATION: CT ABDOMEN AND PELVIS WITHOUT CONTRAST CLINICAL INFORMATION: Vaginal bleeding. Evaluate for mass. COMPARISON: CT abdomen and pelvis 11/03/2022 FINDINGS: LUNG BASES: There is honeycombing, cystic changes and reticular stranding in both lung bases suggestive of chronic interstitial fibrosis. Heart size is normal. Mild coronary artery calcifications are present. LIVER, GALLBLADDER, AND BILIARY TREE: The liver is normal in size, shape, and attenuation. There is a 3 cm cyst lateral segment left hepatic lobe. No additional lesions seen. No intrahepatic biliary ductal dilatation is present. The gallbladder is unremarkable with no evidence of radiopaque gallstones, gallbladder wall thickening, or obvious pericholecystic inflammatory changes. PANCREAS: There is complete fatty infiltration pancreas and barely visible. SPLEEN: There is a 1.2 cm ill-defined hypodensity on coronal image 67/6, stable ADRENAL GLANDS: Unremarkable. KIDNEYS AND URETERS: Both kidneys are small with mild cortical atrophy right kidney. There are several cysts in the right kidney largest in lower pole with peripheral superior wall calcification measuring 3.9 cm in craniocaudad length and 3 Hounsfield units. Grossly stable. No radiopaque calculi or hydronephrosis. BLADDER: Unremarkable. GASTROINTESTINAL TRACT: There is scattered stool, diverticuli and gas seen in colon without significant distention or diverticulitis. The small bowel loops are normal caliber. Appendix is not visualized. The stomach is nondistended. ABDOMINAL WALL: There is umbilical hernia measuring 2.2 cm wide neck. LYMPH NODES: Normal. VASCULAR: There is arthroscopic calcification of abdominal aorta without aneurysmal dilatation. PELVIC VISCERA: There is no free air or free fluid. There is mild fullness in the cervical vaginal region. The uterus is atrophied or surgically absent. No pelvic mass or abnormal lymphadenopathy. OSSEOUS STRUCTURES: There are degenerative disc changes virtually every disc level lower thoracic and lumbar spine sparing the L5-S1 disc level. No aggressive lytic or sclerotic process seen. Lower thoracic posterior epidural spinal electrode is seen IMPRESSION: 1. No acute intra-abdominal process seen. 2. Small bilateral kidneys with mild cortical atrophy right kidney. Right renal cysts are stable. 3. Left hepatic cyst is stable. 4. Small umbilical hernia is stable. 5. Degenerative disc changes lower thoracic and lumbar spine. No aggressive lytic or sclerotic process seen. 6. Mild fullness in the cervical/vaginal region. Recommend direct visualization. Assessment and Plan (1) ESRD on hemodialysis: Status: Acute (2) Vaginal bleeding: Status: Acute Plan Further exam under anesthesia, cystoscopy possible biopsy Procedures Date of Service Date of Service: 08/11/23
[2023-08-07] MEDS: Gabapentin 100 MG CAPSULE PO ×3 (09:15→21:17)
[2023-08-07] MEDS: 0.9 % Sodium Chloride Flush 3 ML SYRINGE IVFLUSH ×3 (09:16→23:47)
[2023-08-07] MEDS: Escitalopram Oxalate 10 MG TABLET PO (09:16)
[2023-08-07] MEDS: Metoprolol Tartrate 12.5 MG HALFTAB PO ×2 (09:16→21:17)
[2023-08-07] MEDS: Furosemide 40 MG TABLET PO (09:16)
[2023-08-07] MEDS: Famotidine 20 MG TABLET PO (09:16)
[2023-08-07] MEDS: Ranolazine 500 MG TAB.ER.12H PO ×2 (09:16→21:17)
[2023-08-07] MEDS: Midodrine HCl 10 MG TABLET PO (10:59)
--- NOTE | 2023-08-07 11:07 | MHC.CM.PN ---
Per MD rounds, pt not ready to discharge. Consults are pending. 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 Patient will need BLS home.
--- NOTE | 2023-08-07 11:36 | P.PNIM_ITS ---
Subjective Subjective Date of Service: 08/07/23 Interval History: Seen and evaluated this morning more alert and interactive plan for HD denies any fever or chills still reporting vaginal spotting Review of Systems Review of Systems: Yes all other systems are reviewed and are negative Physical Exam 2 Vital Signs: Vital Signs: Last Vital Signs Temp 96.8 F 08/07/23 07:47 Pulse 73 08/07/23 07:47 Resp 16 08/07/23 07:47 BP 98/47 L 08/07/23 07:47 Pulse Ox 95 08/07/23 07:47 O2 Del Method Nasal Cannula 08/07/23 07:47 O2 Flow Rate 2 08/07/23 07:47 Oxygen Flow Rate 4 08/05/23 23:36 BMI result Body Mass Index 35.2 Const: Other: Constitutional : Awake, sleepy, frail, not in distress Neck : Normal inspection, Supple Cardiovascular : RRR, no JVP, no lower extremity edema Respiratory : good bilateral air entry, no crackles Gastrointestinal: soft, lax, Normal bowel sounds, Non tender Skin : Warm, Dry, RUE fistula Neurological : Alert & oriented x3, No focal deficit Objective Data Active Medications Acetaminophen (Acetaminophen 325 Mg Tablet) 650 mg PO Q6H PRN PRN Reason: Pain, Mild (Pain Scale 1-3) Last Admin: 08/07/23 06:04 Dose: 650 mg Documented By: BESSY Albuterol Sulfate (Albuterol Sulfate 90 Mcg 8 Gm Inhaler) 2 puff INHALE Q4H PRN PRN Reason: Shortness Of Breath Or Wheezing Atorvastatin Calcium (Atorvastatin Calcium 20 Mg Tablet) 20 mg PO BEDTIME [facility] Last Admin: 08/06/23 21:59 Dose: 20 mg Documented By: BESSY Escitalopram Oxalate (Escitalopram Oxalate 10 Mg Tablet) 10 mg PO DAILY [facility] Last Admin: 08/07/23 09:16 Dose: 10 mg Documented By: ANNIE Famotidine (Famotidine 20 Mg Tablet) 20 mg PO DAILY [facility] Last Admin: 08/07/23 09:16 Dose: 20 mg Documented By: ANNIE Furosemide (Furosemide 40 Mg Tablet) 40 mg PO BID@0900,1800 [facility]; Protocol Last Admin: 08/07/23 09:16 Dose: 40 mg Documented By: ANNIE Gabapentin (Gabapentin 100 Mg Capsule) 100 mg PO TID [facility] Last Admin: 08/07/23 09:15 Dose: 100 mg Documented By: ANNIE Levothyroxine Sodium (Levothyroxine Sodium 100 Mcg Tablet) 100 mcg PO DAILY@0600 [facility] Last Admin: 08/07/23 06:04 Dose: 100 mcg Documented By: BESSY Metoprolol Tartrate (Metoprolol Tartrate 12.5 Mg Halftab) 12.5 mg PO BID [facility]; Protocol Last Admin: 08/07/23 09:16 Dose: 12.5 mg Documented By: ANNIE Nitroglycerin (Nitroglycerin 0.4 Mg Tab.Subl) 0.4 mg SUBLINGUAL Q5M PRN PRN Reason: chest pain Ondansetron HCl (Ondansetron Hcl 4 Mg/2 Ml Vial) 4 mg IVPUSH Q8H PRN PRN Reason: Nausea and Vomiting Ranolazine (Ranolazine 500 Mg Tab.Er.12h) 500 mg PO BID [facility] Last Admin: 08/07/23 09:16 Dose: 500 mg Documented By: ANNIE Sodium Chloride (0.9 % Sodium Chloride Flush 3 Ml Syringe) 3 ml IVFLUSH QSHIFT [facility] Last Admin: 08/07/23 09:16 Dose: 3 ml Documented By: ANNIE Labs 08/06/23 00:41 08/07/23 05:43 Labs: Laboratory Results - last 24 hr 08/06/23 08/06/23 08/07/23 15:03 15:35 05:43 Anion Gap 20 Estim Creat Clear Calc 8.1 Estimated GFR 8 POC Glucose 99 Random Glucose 82 Calcium 8.5 D Urine Color Yellow Urine Appearance Clear Urine pH 5.5 Ur Specific [place] 1.020 Urine Protein Trace Urine Glucose (UA) Negative Urine Ketones Negative Urine Blood Trace Urine Nitrite Negative Ur Leukocyte Esterase Negative Urine RBC 0-2 Urine WBC 0-5 Ur Squamous Epith Cells 0-2 Urine Bacteria None Seen Hyaline Casts 3-5 Assessment and Plan (1) Vaginal bleeding: Status: Acute (2) ESRD on hemodialysis: Status: Acute (3) Vaginal mass: Status: Acute Plan An 82 years old lady with PMH of ESRD on HD, Vaginal mass , CHF, HLD, OA, ILD depression among others who presents to the hospital for evaluation of vaginal bleeding and fistula problem. ESRD on HD Nephro following To do a 2nd dialysis session today Hyperkalemia resolved Fistula problem Pain meds pending Vascular evaluation Vaginal bleeding mass Gyne to eval on Thursday urology evaluation, added to the list for Thursday for cystoscopy check MR Pelvis w contrast Chronic hypoxic and hypercapnic respiratory failure on 4 L due to COPD/ild stable, not in exacerbation [id number] type 2 diabetes continue diabetic diet, SSI, POCs CAD Continue aspirin, statin, Ranexa Hypothyroid Synthroid Chronic diastolic CHF Still makes urine, continue Lasix Severe obesity with BMI 35 weight loss encouraged DVT prophylaxis with heparin subQ DNR/DNI The patient will likely need overnight hospital stay pending consultants opinion, tolerating dialysis and fix the fistula problem and evaluation for vaginal mass and bleeding. Quality Stroke Does the patient have a stroke diagnosis?: No VTE Prior VTE?: No VTE Risk Level:: Medical - moderate - high VTE Device Contraindication: Treatment Not Indicated VTE Drug Contraindication: N/A - Med Ordered
--- NOTE | 2023-08-07 13:17 | PM.EVENT ---
Event Note Date of Service: 08/07/23 Event Note: Patient with right upper extremity fistula. Experiences pain 2 hours into it. When I saw her today she was on small little us with a flow of 350. Appeared to be doing relatively well. Would recommend fistulogram with IR. Will follow p.r.n. Time Spent With Patient Time: Total time managing care of this patient today ____ minutes.
--- NOTE | 2023-08-07 13:27 | P.CDIM_ITS ---
PROVIDER RESPONSE TEXT: To clarify, the appropriate diagnosis supported by the clinical indicators: Diabetes mellitus with hypoglycemia: resolved QUERY TEXT: PHYSICIAN'S DOCUMENTATION REQUEST Date of Query: 08/07/2023 08:19 AM EST Patient Name: Ludy Atkins Admit Date: 08/06/2023 Dear Chet Cunningham, A review of the medical record indicates additional documentation may be needed. Please review below and update the documentation accordingly. Clinical Indicators: LAB FINDINGS: POC glucose 52 L 172 Insulin Diabetic diet Please clarify the following regarding the Complications of Diabetes Mellitus (DM): Diabetes mellitus with hypoglycemia resolved, possible, probable, suspected etc. Other Other (explain) Clinically unable to determine (explain) Thank you, Sarah García, CCS, CDIS Use of terms such as suspected, likely, concern for, or probable (associated with a specific diagnosi s that is being evaluated, monitored, or treated as if it exists) are acceptable and can be coded in the inpatient se tting, when documented at the time of discharge. Please use your independent medical judgment in providing your response. THIS QUERY IS PART OF THE PERMANENT MEDICAL RECORD
--- NOTE | 2023-08-07 13:34 | P.CDIM_ITS ---
PROVIDER RESPONSE TEXT: To clarify, the appropriate diagnosis supported by the clinical indicators: Hyponatremia: improved QUERY TEXT: PHYSICIAN'S DOCUMENTATION REQUEST Date of Query: 08/07/2023 08:22 AM EST Patient Name: Ludy Atkins Admit Date: 08/06/2023 Dear Chet Cunningham, A review of the medical record indicates additional documentation may be needed. Please review below and update the documentation accordingly. Clinical Indicators: LAB FINDINGS: Sodium 129 L 134 Based on the above, is there a diagnosis that correlates with these lab findings: Hyponatremia resolved, possible, probable, suspected etc Labs indicate a diagnosis of (please specify) Other (explain) Clinically unable to determine (explain) Thank you, Sarah García, CCS, CDIS Use of terms such as suspected, likely, concern for, or probable (associated with a specific diagnosi s that is being evaluated, monitored, or treated as if it exists) are acceptable and can be coded in the inpatient se tting, when documented at the time of discharge. Please use your independent medical judgment in providing your response. THIS QUERY IS PART OF THE PERMANENT MEDICAL RECORD
[2023-08-07 15:14] VITALS: BP 94/52; PULSE 63; RESP 16; TEMP 36.6; O2SAT 97
--- NOTE | 2023-08-07 16:24 | MHC.SL.SWA ---
Speech Pathologist Impression: Risk of aspiration, oropharyngeal dysphagia Dysphasia Diet Status: UPGRADE to NDD3/THIN Liquid Consistency and Strategies for Safe Swallow: Liquid Intake Recommendation: Thin Liquid Intake Strategies: Small Sips No Straws Solid Food Consistency: Dietary Recommendations: Chopped/Advanced (NDD3) Additional Modifications to Solid Foods: Recommend START on CHOPPED/ADVANCED solids with THIN liquids, pills WHOLE w/ PUREE. Recommend the Pt try to swallow twice with every sip and alternate solids after liquids to promote oral clearance, remain upright during PO intake and for at least 45 minutes afterwards. Oral Medication Intake: Whole with Puree Please contact the pharmacy regarding appropriate crushable or liquid drug formulations that are available whenever modified delivery is recommended. Compensatory Strategies and Precautions to be Taken for Safe Swallow: Sitting Upright (90 deg) Double Swallow No Straw Small Bites and Sips Rate of Ingestion Change Avoid Specific Foods Supervision While Eating and Drinking for Safe Swallow: Intermittent Supervision Foods to Avoid: Mixed consistencies; hard tough to chew solids Swallowing Recommended Treatments: Compens. Strategy Educat. Recommendation for Speech: Inpatient Speech Therapy Tool And Production Planner Clinican/Clinical Fellow: No Supervisory Statement: I have reviewed and agree with the student/clinical fellow's documentation: N/A Speech Language Pathologist: Aida Fu M.A., CCC-WIRING MECHANIC
[2023-08-07 19:23] VITALS: BP 107/46; PULSE 72; RESP 18; TEMP 36.5; O2SAT 97
[2023-08-07] MEDS: Atorvastatin Calcium 20 MG TABLET PO (21:17)
[2023-08-08 03:28] VITALS: BP 97/42; PULSE 70; RESP 17; TEMP 36.6; O2SAT 98
[2023-08-08 06:34] LABS: Hematocrit 31.2 % (37.0-47.0); Hemoglobin 10.1 g/dl (12.0-16.0); Mean Corpuscular HGB Conc 32.4 g/dl (31.0-35.0); Mean Corpuscular Hemoglobin 33.1 pg (27.0-33.0); Mean Corpuscular Volume 102.3 fL (80.0-98.0); Mean Platelet Volume 10.6 fL (9.4-12.3); Platelet Count 180 X10*3/uL (160-400); Red Blood Count 3.05 X10*6/uL (4.20-5.50); Red Cell Distribution Width 15.2 % (11.0-16.0); White Blood Count 8.4 X10*3/uL (4.8-10.8)
[2023-08-08 06:40] LABS: Anion Gap 18 (12-20); Blood Urea Nitrogen 34 mg/dL (9-16); Calcium 8.5 mg/dL (8.4-10.2); Carbon Dioxide 21 mmol/L (22-29); Chloride 98 mmol/L (96-108); Creatinine Clr Calc Pharmacy 8.4; Estimated Glomerular Filt Rate 8; Glucose Random 89 mg/dL (60-115); Potassium 4.5 mmol/L (3.3-5.1); Sodium 132 mmol/L (135-145)
[2023-08-08] MEDS: Levothyroxine Sodium 100 MCG TABLET PO (07:12)
[2023-08-08 07:44] VITALS: BP 100/46; PULSE 75; RESP 18; TEMP 36; O2SAT 98
--- NOTE | 2023-08-08 08:31 | P.PNIM_ITS ---
Subjective Subjective Date of Service: 08/08/23 Interval History: Seen and evaluated this morning alert and interactive denies any fever or chills reporting vaginal spotting No other events Review of Systems Review of Systems: Yes all other systems are reviewed and are negative Physical Exam 2 Vital Signs: Vital Signs: Last Vital Signs Temp 96.8 F 08/08/23 07:44 Pulse 75 08/08/23 07:44 Resp 18 08/08/23 07:44 BP 100/46 L 08/08/23 07:44 Pulse Ox 98 08/08/23 07:44 O2 Del Method Nasal Cannula 08/08/23 07:44 O2 Flow Rate 2 08/08/23 07:44 Oxygen Flow Rate 4 08/05/23 23:36 BMI result Body Mass Index 35.2 Const: Other: Constitutional : Awake, sleepy, frail, not in distress Neck : Normal inspection, Supple Cardiovascular : RRR, no JVP, no lower extremity edema Respiratory : good bilateral air entry, no crackles Gastrointestinal: soft, lax, Normal bowel sounds, Non tender Skin : Warm, Dry, RUE fistula Neurological : Alert & oriented x3, No focal deficit Objective Data Active Medications Acetaminophen (Acetaminophen 325 Mg Tablet) 650 mg PO Q6H PRN PRN Reason: Pain, Mild (Pain Scale 1-3) Last Admin: 08/07/23 12:04 Dose: 650 mg Documented By: ANNIE Albuterol Sulfate (Albuterol Sulfate 90 Mcg 8 Gm Inhaler) 2 puff INHALE Q4H PRN PRN Reason: Shortness Of Breath Or Wheezing Atorvastatin Calcium (Atorvastatin Calcium 20 Mg Tablet) 20 mg PO BEDTIME [facility] Last Admin: 08/07/23 21:17 Dose: 20 mg Documented By: KATIE Escitalopram Oxalate (Escitalopram Oxalate 10 Mg Tablet) 10 mg PO DAILY [facility] Last Admin: 08/07/23 09:16 Dose: 10 mg Documented By: ANNIE Famotidine (Famotidine 20 Mg Tablet) 20 mg PO DAILY [facility] Last Admin: 08/07/23 09:16 Dose: 20 mg Documented By: ANNIE Furosemide (Furosemide 40 Mg Tablet) 40 mg PO BID@0900,1800 [facility]; Protocol Last Admin: 08/07/23 09:16 Dose: 40 mg Documented By: ANNIE Gabapentin (Gabapentin 100 Mg Capsule) 100 mg PO TID [facility] Last Admin: 08/07/23 21:17 Dose: 100 mg Documented By: KATIE Levothyroxine Sodium (Levothyroxine Sodium 100 Mcg Tablet) 100 mcg PO DAILY@0600 [facility] Last Admin: 08/08/23 07:12 Dose: 100 mcg Documented By: JONATHON Metoprolol Tartrate (Metoprolol Tartrate 12.5 Mg Halftab) 12.5 mg PO BID [facility]; Protocol Last Admin: 08/07/23 21:17 Dose: 12.5 mg Documented By: KATIE Midodrine (Midodrine Hcl 5 Mg Tablet) 5 mg PO TID [facility] Nitroglycerin (Nitroglycerin 0.4 Mg Tab.Subl) 0.4 mg SUBLINGUAL Q5M PRN PRN Reason: chest pain Ondansetron HCl (Ondansetron Hcl 4 Mg/2 Ml Vial) 4 mg IVPUSH Q8H PRN PRN Reason: Nausea and Vomiting Ranolazine (Ranolazine 500 Mg Tab.Er.12h) 500 mg PO BID [facility] Last Admin: 08/07/23 21:17 Dose: 500 mg Documented By: KATIE Sodium Chloride (0.9 % Sodium Chloride Flush 3 Ml Syringe) 3 ml IVFLUSH QSHIFT [facility] Last Admin: 08/07/23 23:47 Dose: 3 ml Documented By: JONATHON Labs 08/08/23 05:55 08/08/23 05:55 Labs: Laboratory Results - last 24 hr 08/08/23 05:55 MCV 102.3 H MCH 33.1 H MCHC 32.4 RDW 15.2 Plt Count 180 MPV 10.6 Absolute Nucleated RBC 0.000 Nucleated RBC % (auto) 0.0 Anion Gap 18 Estim Creat Clear Calc 8.4 Estimated GFR 8 Random Glucose 89 Calcium 8.5 Assessment and Plan (1) Vaginal bleeding: Status: Acute (2) ESRD on hemodialysis: Status: Acute (3) Vaginal mass: Status: Acute (4) Complication of AV dialysis fistula: Status: Acute Plan An 82 years old lady with PMH of ESRD on HD, Vaginal mass , CHF, HLD, OA, ILD depression among others who presents to the hospital for evaluation of vaginal bleeding and fistula problem. ESRD on HD Nephro following Had 2 dialysis sessions Hyperkalemia resolved AV Fistula problem Pain meds Vascular input appreciated, check Fistulogram on Thursday by IR (ordered) Vaginal bleeding mass Gyne and urology evaluation, added to the list for Thursday for cystoscopy and biopsy Pending MR Pelvis w contrast Chronic hypoxic and hypercapnic respiratory failure on 4 L due to COPD/ild stable, not in exacerbation [id number] type 2 diabetes continue diabetic diet, SSI, POCs CAD Continue aspirin, statin, Ranexa Hypothyroid Synthroid Chronic diastolic CHF Still makes urine, continue Lasix Severe obesity with BMI 35 weight loss encouraged DVT prophylaxis with heparin subQ DNR/DNI The patient will likely need overnight hospital stay pending consultants interventions next week, tolerating dialysis and fix the fistula problem and evaluation for vaginal mass and bleeding. Quality Stroke Does the patient have a stroke diagnosis?: No VTE Prior VTE?: No VTE Risk Level:: Medical - moderate - high VTE Device Contraindication: Treatment Not Indicated VTE Drug Contraindication: N/A - Med Ordered
[2023-08-08] MEDS: Ranolazine 500 MG TAB.ER.12H PO ×2 (09:30→20:08)
[2023-08-08] MEDS: Metoprolol Tartrate 12.5 MG HALFTAB PO ×2 (09:30→20:07)
[2023-08-08] MEDS: Gabapentin 100 MG CAPSULE PO ×3 (09:31→20:08)
[2023-08-08] MEDS: Escitalopram Oxalate 10 MG TABLET PO (09:31)
[2023-08-08] MEDS: Famotidine 20 MG TABLET PO (09:31)
[2023-08-08] MEDS: Midodrine HCl 5 MG TABLET PO ×3 (09:31→20:08)
[2023-08-08] MEDS: 0.9 % Sodium Chloride Flush 3 ML SYRINGE IVFLUSH ×2 (09:34→18:34)
[2023-08-08] MEDS: guaiFENesin LA 600 MG TAB.ER.12H PO ×2 (09:51→20:08)
[2023-08-08 15:23] VITALS: BP 90/43; PULSE 64; RESP 20; TEMP 36.1; O2SAT 100
[2023-08-08] MEDS: Benzonatate 100 MG CAPSULE 200 MG PO (18:52)
--- NOTE | 2023-08-08 18:59 | PC.NURSE ---
Right arm fistula positive for thrill and bruit
[2023-08-08 19:36] VITALS: BP 104/49; PULSE 69; RESP 18; TEMP 36.7; O2SAT 98
[2023-08-08] MEDS: Atorvastatin Calcium 20 MG TABLET PO (20:07)
[2023-08-09] MEDS: 0.9 % Sodium Chloride Flush 3 ML SYRINGE IVFLUSH ×4 (00:04→23:36)
[2023-08-09 04:00] VITALS: BP 97/59; PULSE 70; RESP 18; TEMP 36.3; O2SAT 95
[2023-08-09] MEDS: Levothyroxine Sodium 100 MCG TABLET PO (05:35)
[2023-08-09 07:31] VITALS: BP 96/44; PULSE 69; RESP 18; TEMP 36.3; O2SAT 90
[2023-08-09 07:41] LABS: Glucose, Whole Blood 97 mg/dL (60-115)
[2023-08-09] MEDS: Escitalopram Oxalate 10 MG TABLET PO (09:16)
[2023-08-09] MEDS: Famotidine 20 MG TABLET PO (09:16)
[2023-08-09] MEDS: Metoprolol Tartrate 12.5 MG HALFTAB PO ×2 (09:16→20:31)
[2023-08-09] MEDS: Ranolazine 500 MG TAB.ER.12H PO ×2 (09:16→20:31)
[2023-08-09] MEDS: Benzonatate 100 MG CAPSULE 200 MG PO ×2 (09:16→18:32)
[2023-08-09] MEDS: guaiFENesin LA 600 MG TAB.ER.12H PO ×2 (09:16→20:31)
[2023-08-09] MEDS: Midodrine HCl 5 MG TABLET PO ×3 (09:17→20:31)
[2023-08-09] MEDS: Gabapentin 100 MG CAPSULE PO ×3 (09:17→20:31)
--- NOTE | 2023-08-09 10:25 | P.PNIM_ITS ---
Subjective Subjective Date of Service: 08/09/23 Interval History: Seen and evaluated this morning alert and interactive denies any fever or chills still reporting vaginal spotting No other events Review of Systems Review of Systems: Yes all other systems are reviewed and are negative Physical Exam 2 Vital Signs: Vital Signs: Last Vital Signs Temp 97.3 F 08/09/23 07:31 Pulse 69 08/09/23 07:31 Resp 18 08/09/23 07:31 BP 96/44 L 08/09/23 07:31 Pulse Ox 90 L 08/09/23 07:31 O2 Del Method Room Air 08/09/23 07:31 O2 Flow Rate 2 08/09/23 04:00 FiO2 97 08/08/23 19:36 Oxygen Flow Rate 4 08/05/23 23:36 BMI result Body Mass Index 35.2 Const: Other: Constitutional : Awake, sleepy, frail, not in distress Neck : Normal inspection, Supple Cardiovascular : RRR, no JVP, no lower extremity edema Respiratory : good bilateral air entry, no crackles Gastrointestinal: soft, lax, Normal bowel sounds, Non tender Skin : Warm, Dry, RUE fistula Neurological : Alert & oriented x3, No focal deficit Objective Data Active Medications Acetaminophen (Acetaminophen 325 Mg Tablet) 650 mg PO Q6H PRN PRN Reason: Pain, Mild (Pain Scale 1-3) Last Admin: 08/07/23 12:04 Dose: 650 mg Documented By: ANNIE Albuterol Sulfate (Albuterol Sulfate 90 Mcg 8 Gm Inhaler) 2 puff INHALE Q4H PRN PRN Reason: Shortness Of Breath Or Wheezing Atorvastatin Calcium (Atorvastatin Calcium 20 Mg Tablet) 20 mg PO BEDTIME [facility] Last Admin: 08/08/23 20:07 Dose: 20 mg Documented By: ALVAREZ Benzonatate (Benzonatate 100 Mg Capsule) 200 mg PO TID PRN PRN Reason: Cough Last Admin: 08/09/23 09:16 Dose: 200 mg Documented By: FERN Escitalopram Oxalate (Escitalopram Oxalate 10 Mg Tablet) 10 mg PO DAILY [facility] Last Admin: 08/09/23 09:16 Dose: 10 mg Documented By: FERN Famotidine (Famotidine 20 Mg Tablet) 20 mg PO DAILY [facility] Last Admin: 08/09/23 09:16 Dose: 20 mg Documented By: FERN Furosemide (Furosemide 40 Mg Tablet) 40 mg PO BID@0900,1800 [facility]; Protocol Last Admin: 08/07/23 09:16 Dose: 40 mg Documented By: ANNIE Gabapentin (Gabapentin 100 Mg Capsule) 100 mg PO TID [facility] Last Admin: 08/09/23 09:17 Dose: 100 mg Documented By: FERN Guaifenesin (Guaifenesin La 600 Mg Tab.Er.12h) 600 mg PO BID [facility] Last Admin: 08/09/23 09:16 Dose: 600 mg Documented By: FERN Levothyroxine Sodium (Levothyroxine Sodium 100 Mcg Tablet) 100 mcg PO DAILY@0600 [facility] Last Admin: 08/09/23 05:35 Dose: 100 mcg Documented By: RYLEE Metoprolol Tartrate (Metoprolol Tartrate 12.5 Mg Halftab) 12.5 mg PO BID [facility]; Protocol Last Admin: 08/09/23 09:16 Dose: 12.5 mg Documented By: FERN Midodrine (Midodrine Hcl 5 Mg Tablet) 5 mg PO TID [facility] Last Admin: 08/09/23 09:17 Dose: 5 mg Documented By: FERN Nitroglycerin (Nitroglycerin 0.4 Mg Tab.Subl) 0.4 mg SUBLINGUAL Q5M PRN PRN Reason: chest pain Ondansetron HCl (Ondansetron Hcl 4 Mg/2 Ml Vial) 4 mg IVPUSH Q8H PRN PRN Reason: Nausea and Vomiting Ranolazine (Ranolazine 500 Mg Tab.Er.12h) 500 mg PO BID [facility] Last Admin: 08/09/23 09:16 Dose: 500 mg Documented By: FERN Sodium Chloride (0.9 % Sodium Chloride Flush 3 Ml Syringe) 3 ml IVFLUSH QSHIFT [facility] Last Admin: 08/09/23 09:17 Dose: 3 ml Documented By: FERN Labs 08/08/23 05:55 08/08/23 05:55 Labs: Laboratory Results - last 24 hr 08/09/23 07:37 POC Glucose 97 Assessment and Plan (1) Complication of AV dialysis fistula: Status: Acute (2) Vaginal bleeding: Status: Acute (3) Vaginal mass: Status: Acute Plan An 82 years old lady with PMH of ESRD on HD, Vaginal mass , CHF, HLD, OA, ILD depression among others who presents to the hospital for evaluation of vaginal bleeding and fistula problem. ESRD on HD Nephro following Had 2 dialysis sessions Hyperkalemia resolved AV Fistula problem Pain meds Vascular input appreciated, to do Fistulogram on Thursday by IR (ordered) Vaginal bleeding mass Gyne and urology evaluation, added to the list for Thursday for cystoscopy and biopsy Pending MR Pelvis w contrast Chronic hypoxic and hypercapnic respiratory failure on 4 L due to COPD/ild stable, not in exacerbation [id number] type 2 diabetes continue diabetic diet, SSI, POCs CAD Continue aspirin, statin, Ranexa Hypothyroid Synthroid Chronic diastolic CHF Still makes urine, continue Lasix Severe obesity with BMI 35 weight loss encouraged DVT prophylaxis with heparin subQ DNR/DNI The patient will likely need overnight hospital stay pending consultants interventions next week, tolerating dialysis and fix the fistula problem and evaluation for vaginal mass and bleeding. Quality Stroke Does the patient have a stroke diagnosis?: No VTE Prior VTE?: No VTE Risk Level:: Medical - moderate - high VTE Device Contraindication: Treatment Not Indicated VTE Drug Contraindication: N/A - Med Ordered
[2023-08-09 11:23] LABS: Glucose, Whole Blood 138 mg/dL (60-115)
[2023-08-09 14:30] VITALS: O2SAT 96
[2023-08-09 15:29] VITALS: BP 95/54; PULSE 63; RESP 18; TEMP 36.4; O2SAT 97
[2023-08-09 16:33] LABS: Glucose, Whole Blood 104 mg/dL (60-115)
[2023-08-09 19:34] VITALS: BP 110/55; PULSE 67; RESP 19; TEMP 36.2; O2SAT 97
[2023-08-09 20:27] LABS: Glucose, Whole Blood 150 mg/dL (60-115)
[2023-08-09] MEDS: Atorvastatin Calcium 20 MG TABLET PO (20:31)
[2023-08-10 03:03] VITALS: BP 112/56; PULSE 71; RESP 17; TEMP 36.5; O2SAT 99
[2023-08-10 05:46] LABS: Hematocrit 33.3 % (37.0-47.0); Hemoglobin 10.8 g/dl (12.0-16.0); Mean Corpuscular HGB Conc 32.4 g/dl (31.0-35.0); Mean Corpuscular Hemoglobin 33.2 pg (27.0-33.0); Mean Corpuscular Volume 102.5 fL (80.0-98.0); Platelet Count 214 X10*3/uL (160-400); Red Blood Count 3.25 X10*6/uL (4.20-5.50); Red Cell Distribution Width 15.2 % (11.0-16.0); White Blood Count 9.1 X10*3/uL (4.8-10.8)
[2023-08-10] MEDS: Levothyroxine Sodium 100 MCG TABLET PO (05:49)
[2023-08-10 06:01] LABS: Anion Gap 22 (12-20); Blood Urea Nitrogen 69 mg/dL (9-16); Calcium 8.9 mg/dL (8.4-10.2); Carbon Dioxide 19 mmol/L (22-29); Chloride 98 mmol/L (96-108); Creatinine Clr Calc Pharmacy 5.9; Estimated Glomerular Filt Rate 5; Glucose Random 97 mg/dL (60-115); Potassium 5.2 mmol/L (3.3-5.1); Sodium 134 mmol/L (135-145)
[2023-08-10 07:50] VITALS: BP 107/53; PULSE 65; RESP 17; TEMP 36.6; O2SAT 98
[2023-08-10] MEDS: Escitalopram Oxalate 10 MG TABLET PO (08:31)
[2023-08-10] MEDS: Gabapentin 100 MG CAPSULE PO ×3 (08:31→20:00)
[2023-08-10] MEDS: Acetaminophen 325 MG TABLET 650 MG PO (08:31)
[2023-08-10] MEDS: 0.9 % Sodium Chloride Flush 3 ML SYRINGE IVFLUSH ×2 (08:31→15:17)
[2023-08-10] MEDS: guaiFENesin LA 600 MG TAB.ER.12H PO ×2 (08:31→20:00)
[2023-08-10] MEDS: Famotidine 20 MG TABLET PO (08:31)
[2023-08-10] MEDS: Ranolazine 500 MG TAB.ER.12H PO ×2 (08:31→20:01)
--- NOTE | 2023-08-10 10:00 | MHC.SL.SWA ---
Speech Pathologist Impression: Risk of aspiration, oropharyngeal dysphagia Dysphasia Diet Status: No changes at this time Liquid Consistency and Strategies for Safe Swallow: Liquid Intake Recommendation: Thin Liquid Intake Strategies: Small Sips No Straws Solid Food Consistency: Dietary Recommendations: Chopped/Advanced (NDD3) Additional Modifications to Solid Foods: Pt has been tolerating CHOPPED/ADVANCED (NDD3) diet and THIN liquids. Continue to recommend precautions for pharyngoesophageal dysphagia: small bites of food, chew food well, alternate bites of food with sips of liquid, remain upright during meal and for at least [address] intervention is no longer warranted at this level of care. Please re-refer with any changes or if NEUROLOGICAL SURGEON can be of further assistance. Oral Medication Intake: Whole with Puree Please contact the pharmacy regarding appropriate crushable or liquid drug formulations that are available whenever modified delivery is recommended. Compensatory Strategies and Precautions to be Taken for Safe Swallow: Sitting Upright (90 deg) Double Swallow No Straw Small Bites and Sips Rate of Ingestion Change Avoid Specific Foods Supervision While Eating and Drinking for Safe Swallow: Intermittent Supervision Foods to Avoid: Mixed consistencies; hard tough to chew solids Swallowing Recommended Treatments: Compens. Strategy Educat. Recommendation for Speech: D/C Insurance Assistant Clinican/Clinical Fellow: No Supervisory Statement: I have reviewed and agree with the student/clinical fellow's documentation: N/A Speech Language Pathologist: Aida Fu M.A., [facility])-NEUROLOGICAL SURGEON
--- NOTE | 2023-08-10 10:16 | P.CONOB_ITS ---
[employer] - CN: HPI Data of Consult Consult date: 08/10/23 Requesting Physician: Chet Cunningham MD Primary Care Provider: Christina Paiz MD Consult Narrative Narrative: I was consulted on Ludy Atkins who is a 82 year old female who presented to emergency room on 08/03/2023 with 1 week history of spotting and heavy vaginal bleeding this morning while she was sitting on the toilet. No history of previous vaginal bleeding. The patient had a vaginal hysterectomy age of 28 for heavy vaginal bleeding and has not had any pelvic exam for the last 20 some years. No history of abnormal Pap smears . On evaluation anterior proximal vaginal mass was identified. The patient was discharged for outpatient follow- up for vaginal mass biopsy, possible cystoscopy any pelvic MRI for evaluation of the anterior vaginal mass , the patient presented back to the emergency room few days afterwards with AV fistula complication. She is Still complaining of vaginal bleeding, Urology was consulted, cystoscopy under anesthesia a scheduled on 08/11/2023. MRI is ordered, to be done today. cc:: CC: Chet Cunningham MD [facility] Past Medical History Medical History (HFpEF) heart failure with preserved ejection fraction ESRD needing dialysis NSTEMI (non-ST elevated myocardial infarction) Cough Respiratory failure with hypoxia Interstitial lung disease Depression, major, recurrent Dyslipidemia Osteoarthritis of multiple joints Acquired hypothyroidism Heart murmur Fibromyalgia Diabetes Family History Family History Brother Substance use disorder Son Substance use disorder Daughter Substance use disorder Surgical History Surgical History Hx of tonsillectomy S/P appendectomy Hx of fusion of cervical spine S/P anal fissurectomy H/O hemorrhoidectomy S/P partial hysterectomy Social History Social History Household Members: None Household Members Other:: Lives alone granddaughter lives in attached house Housing: House Do you presently have visiting nurse or other home services: No Unable to assess alcohol history related to: Unknown Alcohol intake: current Alcohol intake frequency: holidays/special occasions only Patient Tobacco Use Status: Former Tobacco user Quit Date: 15 years ago Tobacco use type: Cigarette Years Smoked: 20 +/- on and off Smoked in Last 30 Days: No e-Cigarette/Vaping Use: Never Used Second Hand Smoke Exposure: No Use of substances other than those prescribed or required for medical reasons: Unknown Currently Displaying Signs/Symptoms of Drug Intoxication Withdrawal: No Advance Directives: Yes Advance Directives on File: Yes Advance Directives Date on File: 02/03/23 Do you have thoughts of harming others: None Do you have a plan to hurt others: No Plan Recently lost weight without trying: No Nutrition Risks: No Nutritional Risk Patient : No : No Poor oral hygiene: No service: No Current occupational status: retired Current occupation: right handed Cognitive needs: No Hearing needs: No Vision needs: Yes Meds Allergies Allergy/AdvReac Type Severity Reaction Status Date / Time NSAIDS (Non-Steroidal Allergy Unknown Verified 07/16/23 14:07 Anti-Inflamma [id number] Reductase AdvReac Severe LEG PAIN Verified 07/16/23 14:07 Inhibitor Active Medications: Current Medications Acetaminophen (Acetaminophen 325 Mg Tablet) 650 mg PO Q6H PRN PRN Reason: Pain, Mild (Pain Scale 1-3) Last Admin: 08/10/23 08:31 Dose: 650 mg Albuterol Sulfate (Albuterol Sulfate 90 Mcg 8 Gm Inhaler) 2 puff INHALE Q4H PRN PRN Reason: Shortness Of Breath Or Wheezing Atorvastatin Calcium (Atorvastatin Calcium 20 Mg Tablet) 20 mg PO BEDTIME [facility] Last Admin: 08/09/23 20:31 Dose: 20 mg Benzonatate (Benzonatate 100 Mg Capsule) 200 mg PO TID PRN PRN Reason: Cough Last Admin: 08/09/23 18:32 Dose: 200 mg Escitalopram Oxalate (Escitalopram Oxalate 10 Mg Tablet) 10 mg PO DAILY [facility] Last Admin: 08/10/23 08:31 Dose: 10 mg Famotidine (Famotidine 20 Mg Tablet) 20 mg PO DAILY [facility] Last Admin: 08/10/23 08:31 Dose: 20 mg Furosemide (Furosemide 40 Mg Tablet) 40 mg PO BID@0900,1800 [facility]; Protocol Last Admin: 08/07/23 09:16 Dose: 40 mg Gabapentin (Gabapentin 100 Mg Capsule) 100 mg PO TID [facility] Last Admin: 08/10/23 08:31 Dose: 100 mg Guaifenesin (Guaifenesin La 600 Mg Tab.Er.12h) 600 mg PO BID [facility] Last Admin: 08/10/23 08:31 Dose: 600 mg Levothyroxine Sodium (Levothyroxine Sodium 100 Mcg Tablet) 100 mcg PO DAILY@0600 [facility] Last Admin: 08/10/23 05:49 Dose: 100 mcg Metoprolol Tartrate (Metoprolol Tartrate 12.5 Mg Halftab) 12.5 mg PO BID [facility]; Protocol Last Admin: 08/09/23 20:31 Dose: 12.5 mg Midodrine (Midodrine Hcl 5 Mg Tablet) 5 mg PO TID [facility] Last Admin: 08/09/23 20:31 Dose: 5 mg Nitroglycerin (Nitroglycerin 0.4 Mg Tab.Subl) 0.4 mg SUBLINGUAL Q5M PRN PRN Reason: chest pain Ondansetron HCl (Ondansetron Hcl 4 Mg/2 Ml Vial) 4 mg IVPUSH Q8H PRN PRN Reason: Nausea and Vomiting Ranolazine (Ranolazine 500 Mg Tab.Er.12h) 500 mg PO BID [facility] Last Admin: 08/10/23 08:31 Dose: 500 mg Sodium Chloride (0.9 % Sodium Chloride Flush 3 Ml Syringe) [facility] Last Admin: 08/10/23 08:31 Dose: 3 ml Home Medications Medication Instructions Recorded Confirmed Last Taken Type albuterol sulfate 90 mcg/actuation 2 puff inhalation Q4H PRN 12/28/22 08/06/23 Unknown History aerosol inhaler Shortness Of Breath Or Wheezing famotidine 20 mg tablet 20 mg PO DAILY 12/28/22 08/06/23 08/05/23 History levothyroxine 100 mcg tablet 100 mcg PO DAILY@0600 12/28/22 08/06/23 08/05/23 History atorvastatin 20 mg tablet 20 mg PO BEDTIME 01/24/23 08/06/23 08/05/23 History gabapentin 100 mg capsule 100 mg PO TID 05/04/23 08/06/23 08/05/23 History [employer] Physical Exam Vitals Vital signs: Temp Pulse Resp BP Pulse Ox O2 Del Method O2 Flow Rate 97.8 F 65 17 107/53 L 98 Nasal Cannula 2.0 08/10/23 07:50 08/10/23 07:50 08/10/23 07:50 08/10/23 07:50 08/10/23 07:50 08/10/23 07:50 08/10/23 07:50 FiO2 97 08/08/23 19:36 BMI result Body Mass Index 35.2 Lungs Auscultation: Clear to auscultation Cardiovascular Auscultation: RRR and Irregular heart rhythm Abdomen Auscultation/Inspection/Palpation: Normal bowel sounds, Soft and Non-distended [employer] - Results Labs 08/10/23 05:35 08/10/23 05:35 Labs: Short CBC 08/10/23 Range/Units 05:35 WBC 9.1 (4.8-10.8) X10*3/uL Hgb 10.8 L (12.0-16.0) g/dl Hct 33.3 L (37.0-47.0) % Plt Count 214 (160-400) X10*3/uL BMP 08/10/23 05:35 Sodium 134 L Potassium 5.2 H Chloride 98 Carbon Dioxide 19 L BUN 69 H Creatinine 7.32 H* Calcium 8.9 Urine 08/06/23 Range/Units 15:35 Urine Color Yellow Urine Appearance Clear Urine pH 5.5 (5.0-9.0) Ur Specific [place] 1.020 (1.005-1.025) Urine Protein Trace (Neg-Trace) mg/dL Urine Glucose (UA) Negative (Negative) mg/dL Imaging CT scan - abdomen: Radiologist's impression: ITS Impressions Chest X-Ray 08/06/23 01:11 IMPRESSION: Mild streaky bibasilar opacities and overall coarsened appearance of the interstitium, suspicious for chronic interstitial lung disease/fibrosis with mild superimposed atelectasis. Assessment and Plan (1) Vaginal mass: Status: Acute Since the patient is under anesthesia for cystoscopy, I recommended vaginal biopsy . Discussed with the patient the procedure, vaginal mass biopsy, with its possible complications including but not limited to: bleeding, infection, possible injury to bladder, bowel, urethra, blood vessels and possible need for blood transfusion with all its possible complications, possible missing abnormal pathology including precancer or cancer and others. All questions answered, the patient verbalized understanding and signed the consent.
[2023-08-10] MEDS: Metoprolol Tartrate 12.5 MG HALFTAB PO ×2 (10:28→20:00)
[2023-08-10] MEDS: Midodrine HCl 5 MG TABLET PO ×3 (10:28→20:01)
--- NOTE | 2023-08-10 12:22 | P.PNNP_ITS ---
Subjective Subjective Date of Service: 08/10/23 Interval history: seen and evaluated no complaints Physical Exam 2 Vital Signs: Vital Signs: Last Vital Signs Temp 97.8 F 08/10/23 07:50 Pulse 65 08/10/23 07:50 Resp 17 08/10/23 07:50 BP 107/53 L 08/10/23 07:50 Pulse Ox 98 08/10/23 07:50 O2 Del Method Nasal Cannula 08/10/23 07:50 O2 Flow Rate 2.0 08/10/23 07:50 FiO2 97 08/08/23 19:36 Oxygen Flow Rate 4 08/05/23 23:36 BMI result Body Mass Index 35.2 Const: General: alert and awake HEENT: Head: Yes normocephalic and Yes atraumatic Neck: Neck: Yes supple Resp: Auscultation: diminished lung sounds Cardio: Heart sounds: S1 normal heart sound present and S2 normal heart sound present GI: Palpation (GI): Soft to palpation and nontender Objective Data Labs 08/10/23 05:35 08/10/23 05:35 Labs: Laboratory Results - last 24 hr 08/09/23 08/09/23 08/10/23 16:29 20:23 05:35 WBC 9.1 RBC 3.25 L Hgb 10.8 L Hct 33.3 L MCV 102.5 H MCH 33.2 H MCHC 32.4 RDW 15.2 Plt Count 214 MPV 10.0 Absolute Nucleated RBC 0.000 Nucleated RBC % (auto) 0.0 Sodium 134 L Potassium 5.2 H Chloride 98 Carbon Dioxide 19 L Anion Gap 22 H BUN 69 H Creatinine 7.32 H* Estim Creat Clear Calc 5.9 Estimated GFR 5 POC Glucose 104 150 H Random Glucose 97 Calcium 8.9 Procedures Date of Service Date of Service: 08/10/23 Assessment & Plan Assessment and plan (1) ESRD (end stage renal disease): Status: Acute (2) Hyperkalemia: Status: Acute (3) Anemia: Status: Acute Plan [facility] Dum[facility] presented with vaginal bleeding nephrogenic anemia access dysfunction REC fistulogram today sodium zirconium HD in am renal diet phosphate binders no need for GEREMIAS Time Spent With Patient Time: Total time managing care of this patient today ____ minutes. Progress Note: Quality Stroke Does the patient have a stroke diagnosis?: No
--- NOTE | 2023-08-10 12:26 | P.PNIM_ITS ---
Subjective Subjective Date of Service: 08/10/23 Interval History: Seen and evaluated this morning alert and interactive denies any fever or chills reporting vaginal spotting No other events Review of Systems Review of Systems: Yes all other systems are reviewed and are negative Physical Exam 2 Vital Signs: Vital Signs: Last Vital Signs Temp 97.8 F 08/10/23 07:50 Pulse 65 08/10/23 07:50 Resp 17 08/10/23 07:50 BP 107/53 L 08/10/23 07:50 Pulse Ox 98 08/10/23 07:50 O2 Del Method Nasal Cannula 08/10/23 07:50 O2 Flow Rate 2.0 08/10/23 07:50 FiO2 97 08/08/23 19:36 Oxygen Flow Rate 4 08/05/23 23:36 BMI result Body Mass Index 35.2 Const: Other: Constitutional : Awake, sleepy, frail, not in distress Neck : Normal inspection, Supple Cardiovascular : RRR, no JVP, no lower extremity edema Respiratory : good bilateral air entry, no crackles Gastrointestinal: soft, lax, Normal bowel sounds, Non tender Skin : Warm, Dry, RUE fistula Neurological : Alert & oriented x3, No focal deficit Objective Data Active Medications Acetaminophen (Acetaminophen 325 Mg Tablet) 650 mg PO Q6H PRN PRN Reason: Pain, Mild (Pain Scale 1-3) Last Admin: 08/10/23 08:31 Dose: 650 mg Documented By: SWATHI Albuterol Sulfate (Albuterol Sulfate 90 Mcg 8 Gm Inhaler) 2 puff INHALE Q4H PRN PRN Reason: Shortness Of Breath Or Wheezing Atorvastatin Calcium (Atorvastatin Calcium 20 Mg Tablet) 20 mg PO BEDTIME [facility] Last Admin: 08/09/23 20:31 Dose: 20 mg Documented By: ALVAREZ Benzonatate (Benzonatate 100 Mg Capsule) 200 mg PO TID PRN PRN Reason: Cough Last Admin: 08/09/23 18:32 Dose: 200 mg Documented By: ALVAREZ Escitalopram Oxalate (Escitalopram Oxalate 10 Mg Tablet) 10 mg PO DAILY [facility] Last Admin: 08/10/23 08:31 Dose: 10 mg Documented By: SWATHI Famotidine (Famotidine 20 Mg Tablet) 20 mg PO DAILY [facility] Last Admin: 08/10/23 08:31 Dose: 20 mg Documented By: SWATHI Furosemide (Furosemide 40 Mg Tablet) 40 mg PO BID@0900,1800 [facility]; Protocol Last Admin: 08/07/23 09:16 Dose: 40 mg Documented By: ANNIE Gabapentin (Gabapentin 100 Mg Capsule) 100 mg PO TID [facility] Last Admin: 08/10/23 08:31 Dose: 100 mg Documented By: SWATHI Guaifenesin (Guaifenesin La 600 Mg Tab.Er.12h) 600 mg PO BID [facility] Last Admin: 08/10/23 08:31 Dose: 600 mg Documented By: SWATHI Levothyroxine Sodium (Levothyroxine Sodium 100 Mcg Tablet) 100 mcg PO DAILY@0600 [facility] Last Admin: 08/10/23 05:49 Dose: 100 mcg Documented By: IRVING Metoprolol Tartrate (Metoprolol Tartrate 12.5 Mg Halftab) 12.5 mg PO BID [facility]; Protocol Last Admin: 08/10/23 10:28 Dose: 12.5 mg Documented By: SWATHI Midodrine (Midodrine Hcl 5 Mg Tablet) 5 mg PO TID [facility] Last Admin: 08/10/23 10:28 Dose: 5 mg Documented By: SWATHI Nitroglycerin (Nitroglycerin 0.4 Mg Tab.Subl) 0.4 mg SUBLINGUAL Q5M PRN PRN Reason: chest pain Ondansetron HCl (Ondansetron Hcl 4 Mg/2 Ml Vial) 4 mg IVPUSH Q8H PRN PRN Reason: Nausea and Vomiting Ranolazine (Ranolazine 500 Mg Tab.Er.12h) 500 mg PO BID [facility] Last Admin: 08/10/23 08:31 Dose: 500 mg Documented By: SWATHI Sodium Chloride (0.9 % Sodium Chloride Flush 3 Ml Syringe) 3 ml IVFLUSH QSHIFT [facility] Last Admin: 08/10/23 08:31 Dose: 3 ml Documented By: SWATHI Labs 08/10/23 05:35 08/10/23 05:35 Labs: Laboratory Results - last 24 hr 08/09/23 08/09/23 08/10/23 16:29 20:23 05:35 MCV 102.5 H MCH 33.2 H MCHC 32.4 RDW 15.2 Plt Count 214 MPV 10.0 Absolute Nucleated RBC 0.000 Nucleated RBC % (auto) 0.0 Anion Gap 22 H Estim Creat Clear Calc 5.9 Estimated GFR 5 POC Glucose 104 150 H Random Glucose 97 Calcium 8.9 Assessment and Plan (1) ESRD (end stage renal disease): Status: Acute (2) Complication of AV dialysis fistula: Status: Acute (3) Vaginal bleeding: Status: Acute (4) Hyperkalemia: Status: Acute (5) Vaginal mass: Status: Acute Plan An 82 years old lady with PMH of ESRD on HD, Vaginal mass , CHF, HLD, OA, ILD depression among others who presents to the hospital for evaluation of vaginal bleeding and fistula problem. ESRD on HD Nephro following Had 2 dialysis sessions Hyperkalemia resolved AV Fistula problem Pain meds Vascular input appreciated, to do Fistulogram by IR, moved till Thursday by IR team Vaginal bleeding mass Gyne and urology evaluation, added to the list for Thursday for cystoscopy and biopsy Pending MR Pelvis w contrast (waiting Rep to clear her for the study) Chronic hypoxic and hypercapnic respiratory failure on 4 L due to COPD/ild stable, not in exacerbation [id number] type 2 diabetes continue diabetic diet, SSI, POCs CAD Continue aspirin, statin, Ranexa Hypothyroid Synthroid Chronic diastolic CHF Still makes urine, continue Lasix Severe obesity with BMI 35 weight loss encouraged DVT prophylaxis with heparin subQ DNR/DNI The patient will likely need overnight hospital stay pending consultants interventions next week, tolerating dialysis and fix the fistula problem and evaluation for vaginal mass and bleeding. Quality Stroke Does the patient have a stroke diagnosis?: No VTE Prior VTE?: No VTE Risk Level:: Medical - moderate - high VTE Device Contraindication: Treatment Not Indicated VTE Drug Contraindication: N/A - Med Ordered
--- NOTE | 2023-08-10 13:51 | PC.NURSE ---
Fistula right arm, positive bruit and thrill
--- NOTE | 2023-08-10 14:02 | MHC.CM.PN ---
Met with patient to discuss the discharge plan. She states that she still intends to DC to home. She will resume [employer] and HD. She will need BLS transport home.
[2023-08-10 15:27] VITALS: BP 102/64; PULSE 60; RESP 16; TEMP 36.2; O2SAT 98
[2023-08-10 19:16] VITALS: BP 126/64; PULSE 67; RESP 16; TEMP 36.3; O2SAT 94
[2023-08-10] MEDS: Atorvastatin Calcium 20 MG TABLET PO (20:01)
[2023-08-11] VITALS (12 sets, daily range): BP systolic 93–140; BP diastolic 3–60; PULSE 58–84; RESP 16–20; TEMP 36.1–36.7; O2SAT 95–100
[2023-08-11] MEDS: 0.9 % Sodium Chloride Flush 3 ML SYRINGE IVFLUSH ×4 (00:08→20:45)
--- NOTE | 2023-08-11 04:57 | PC.NURSE ---
CALL RECEIVED FROM DIALYSIS NURSE, ASKING FOR PATIENT TO BE BROUGHT TO DIALYSIS FOR 0500. DISCUSSED PT NPO AND HAS PROCEDURES SCHEDULED FOR TODAY AND DIESEL LOCOMOTIVE ENGINEER AWARE AND STATED THAT'S WHY SHE CAME IN EARLY FOR HER TREATMENT, SHE WAS FAMILIAR WITH THE PATIENT AND HER PLANS. PATIENT AWAKE, CLEANSED, INCONTINENCE CARE, SKIN CARE, JARRED CHANGE, AND TRANSPORTED VIA HOSPITAL BED WITH PORTABLE OXYGEN TO DIALYSIS TREATMENT ROOM AT 0455.
[2023-08-11] MEDS: Midodrine HCl 5 MG TABLET PO ×3 (06:16→20:43)
--- NOTE | 2023-08-11 06:35 | PC.NURSE ---
Call received from dialysis nurse, ext [phone] asking this advertising writer to bring up her midodrine po medication dose scheduled for later due to patient showing a low blood pressure reading. Dose brought as per SEP and adminstered to patient with sips of water as she remains NPO (okay meds with sips of water), for procedure later this morning, medication given 0626 bp 82/35 per internal auditor verbally and at bedside flow chart. Checked with nursing steam and power supervisor if this practice was okay to administer medications to a dialysis patient and approval given prior to entering dialysis treatment room with tx in progress. dialysis nurse to continue monitoring
[2023-08-11] MEDS: Escitalopram Oxalate 10 MG TABLET PO (08:27)
[2023-08-11] MEDS: Metoprolol Tartrate 12.5 MG HALFTAB PO (08:27)
[2023-08-11] MEDS: Famotidine 20 MG TABLET PO (08:27)
[2023-08-11] MEDS: Gabapentin 100 MG CAPSULE PO ×3 (08:27→20:43)
[2023-08-11] MEDS: Ranolazine 500 MG TAB.ER.12H PO ×2 (08:27→20:43)
[2023-08-11] MEDS: guaiFENesin LA 600 MG TAB.ER.12H PO ×2 (08:27→20:43)
[2023-08-11 09:14] LABS: Glucose, Whole Blood 61 mg/dL (60-115)
--- NOTE | 2023-08-11 09:21 | HO.ANESPROP2 ---
[facility] Active Problems Active Problems: All Active Problems (Updated 08/10/23 @ 12:24 by Dandre Bennett MD) ESRD (end stage renal disease) (Acute) Complication of AV dialysis fistula (Acute) Vaginal bleeding (Acute) Hypoglycemia (Acute) ESRD on hemodialysis (Acute) Hyperkalemia (Acute) Vaginal spotting (Acute) Vaginal mass (Acute) Vaginal mass (Acute) Dysphagia (Acute) Bacteremia (Acute) DEVIN (acute kidney injury) (Acute) Weakness (Acute) CKD (chronic kidney disease) stage 4, GFR 15-29 ml/min (Acute) Atherosclerotic cardiovascular disease (Acute) Acute kidney injury superimposed on CKD (Acute) Delirium (Acute) Congestive heart failure (Acute) Elevated troponin I level (Acute) Respiratory failure (Acute) Hallucination, visual (Acute) Umbilical hernia (Acute) Cough (Acute) Right kidney mass (Acute) Diverticulitis (Acute) Abdominal pain (Acute) Osteoarthritis of knees, bilateral (Acute) Arthritis of right shoulder region (Acute) Bilateral shoulder region arthritis (Acute) Hyperkalemia (Acute) Fibromyalgia (Acute) Respiratory failure with hypoxia (Acute) SOB (shortness of breath) (Acute) Interstitial lung disease (Acute) Depression, major, recurrent (Acute) Dyslipidemia (Acute) Osteoarthritis of multiple joints (Acute) Acquired hypothyroidism (Acute) Anemia (Acute) CKD (chronic kidney disease) stage 4, GFR 15-29 ml/min (Acute) Past Medical History Medical History (HFpEF) heart failure with preserved ejection fraction ESRD needing dialysis NSTEMI (non-ST elevated myocardial infarction) Cough Respiratory failure with hypoxia Interstitial lung disease Depression, major, recurrent Dyslipidemia Osteoarthritis of multiple joints Acquired hypothyroidism Heart murmur Fibromyalgia Diabetes Patient : No Family History Family History Brother Substance use disorder Son Substance use disorder Daughter Substance use disorder Family history of problems with anesthesia: No Surgical History Surgical History Hx of tonsillectomy S/P appendectomy Hx of fusion of cervical spine S/P anal fissurectomy H/O hemorrhoidectomy S/P partial hysterectomy History of Problems with Anesthesia: No Social History Social History Household Members: None Household Members Other:: Lives alone granddaughter lives in attached house Housing: House Do you presently have visiting nurse or other home services: No Unable to assess alcohol history related to: Unknown Alcohol intake: current Alcohol intake frequency: does not drink Patient Tobacco Use Status: Former Tobacco user Quit Date: 15 years ago Tobacco use type: Cigarette Years Smoked: 20 +/- on and off Smoked in Last 30 Days: No e-Cigarette/Vaping Use: Never Used Second Hand Smoke Exposure: No Use of substances other than those prescribed or required for medical reasons: Unknown Currently Displaying Signs/Symptoms of Drug Intoxication Withdrawal: No Are you DNR?: No Advance Directives: Yes Advance Directives on File: Yes Advance Directives Date on File: 02/03/23 Do you have thoughts of harming others: None Do you have a plan to hurt others: No Plan Recently lost weight without trying: No Nutrition Risks: No Nutritional Risk Patient : No : No Poor oral hygiene: No service: No Current occupational status: retired Current occupation: right handed Cognitive needs: No Hearing needs: No Vision needs: Yes Meds Allergies Allergy/AdvReac Type Severity Reaction Status Date / Time NSAIDS (Non-Steroidal Allergy Unknown Verified 07/16/23 14:07 Anti-Inflamma Laydyiq-SSJ-ShI Reductase AdvReac Severe LEG PAIN Verified 07/16/23 14:07 Inhibitor Active Medications: Current Medications Acetaminophen (Acetaminophen 325 Mg Tablet) 650 mg PO Q6H PRN PRN Reason: Pain, Mild (Pain Scale 1-3) Last Admin: 08/10/23 08:31 Dose: 650 mg Albuterol Sulfate (Albuterol Sulfate 90 Mcg 8 Gm Inhaler) 2 puff INHALE Q4H PRN PRN Reason: Shortness Of Breath Or Wheezing Atorvastatin Calcium (Atorvastatin Calcium 20 Mg Tablet) 20 mg PO BEDTIME [facility] Last Admin: 08/10/23 20:01 Dose: 20 mg Benzonatate (Benzonatate 100 Mg Capsule) 200 mg PO TID PRN PRN Reason: Cough Last Admin: 08/09/23 18:32 Dose: 200 mg Escitalopram Oxalate (Escitalopram Oxalate 10 Mg Tablet) 10 mg PO DAILY [facility] Last Admin: 08/11/23 08:27 Dose: 10 mg Famotidine (Famotidine 20 Mg Tablet) 20 mg PO DAILY [facility] Last Admin: 08/11/23 08:27 Dose: 20 mg Furosemide (Furosemide 40 Mg Tablet) 40 mg PO BID@0900,1800 [facility]; Protocol Last Admin: 08/07/23 09:16 Dose: 40 mg Gabapentin (Gabapentin 100 Mg Capsule) 100 mg PO TID [facility] Last Admin: 08/11/23 08:27 Dose: 100 mg Guaifenesin (Guaifenesin La 600 Mg Tab.Er.12h) 600 mg PO BID [facility] Last Admin: 08/11/23 08:27 Dose: 600 mg Cefazolin Sodium/Dextrose (Ancef) 2 gm in 50 mls @ 100 mls/hr IV PREOP ONE Stop: 08/11/23 10:29 Sodium Chloride (Ns) 500 mls @ 20 mls/hr IVCONT .Q24H [facility] Levothyroxine Sodium (Levothyroxine Sodium 100 Mcg Tablet) 100 mcg PO DAILY@0600 [facility] Last Admin: 08/11/23 05:04 Dose: Not Given Metoprolol Tartrate (Metoprolol Tartrate 12.5 Mg Halftab) 12.5 mg PO BID [facility]; Protocol Last Admin: 08/11/23 08:27 Dose: 12.5 mg Midodrine (Midodrine Hcl 5 Mg Tablet) 5 mg PO TID [facility] Last Admin: 08/11/23 08:10 Dose: Not Given Nitroglycerin (Nitroglycerin 0.4 Mg Tab.Subl) 0.4 mg SUBLINGUAL Q5M PRN PRN Reason: chest pain Ondansetron HCl (Ondansetron Hcl 4 Mg/2 Ml Vial) 4 mg IVPUSH Q8H PRN PRN Reason: Nausea and Vomiting Ranolazine (Ranolazine 500 Mg Tab.Er.12h) 500 mg PO BID [facility] Last Admin: 08/11/23 08:27 Dose: 500 mg Sodium Chloride (0.9 % Sodium Chloride Flush 3 Ml Syringe) 3 ml IVFLUSH QSHIFT [facility] Last Admin: 08/11/23 08:27 Dose: 3 ml Home Medications Medication Instructions Recorded Confirmed Last Taken Type albuterol sulfate 90 mcg/actuation 2 puff inhalation Q4H PRN 12/28/22 08/06/23 Unknown History aerosol inhaler Shortness Of Breath Or Wheezing famotidine 20 mg tablet 20 mg PO DAILY 12/28/22 08/06/23 08/05/23 History levothyroxine 100 mcg tablet 100 mcg PO DAILY@0600 12/28/22 08/06/23 08/05/23 History atorvastatin 20 mg tablet 20 mg PO BEDTIME 01/24/23 08/06/23 08/05/23 History gabapentin 100 mg capsule 100 mg PO TID 05/04/23 08/06/23 08/05/23 History Exam Height,Weight and Vital Signs: Height 5 ft 2 in Weight 87.3 kg Last Vital Signs Temp 97.6 F 08/11/23 07:54 Pulse 72 08/11/23 07:54 Resp 17 08/11/23 07:54 BP 110/53 L 08/11/23 07:54 Pulse Ox 99 08/11/23 07:54 O2 Del Method Nasal Cannula 08/11/23 07:54 O2 Flow Rate 2.0 08/11/23 07:54 FiO2 97 08/08/23 19:36 Oxygen Flow Rate 4 08/05/23 23:36 Pertinent Lab Results Pertinent Lab Results: Laboratory Tests 08/06/23 08/06/23 08/06/23 00:41 01:45 02:25 WBC 10.2 RBC 3.49 L Hgb 11.5 L Hct 36.4 L MCV 104.3 H MCH 33.0 MCHC 31.6 RDW 15.6 Plt Count 219 MPV 9.7 Immature Gran % (Auto) 0.2 Neut % (Auto) 67.9 Lymph % (Auto) 14.7 L Patrick % (Auto) 7.5 Eos % (Auto) 9.4 H Baso % (Auto) 0.3 Lymph # (Auto) 1.5 Patrick # (Auto) 0.8 Eos # (Auto) 1.0 H a a Baso # (Auto) 0.0 Abs Immat Gran (auto) 0.02 Absolute Neuts (auto) 6.9 Absolute Nucleated RBC 0.000 Nucleated RBC % (auto) 0.0 PT 11.1 INR 0.9 Sodium 132 L 129 L Potassium 6.6 H* D 6.3 H* Chloride 96 98 Carbon Dioxide 21 L 16 L Anion Gap 22 H 21 H BUN 49 H 49 H Creatinine 5.37 H* 5.34 H* Estim Creat Clear Calc 8.0 8.0 Estimated GFR 8 8 POC Glucose Random Glucose 91 90 Calcium 9.0 8.7 Total Bilirubin 0.5 AST 23 ALT 16 Alkaline Phosphatase 107 Total Protein 7.4 Albumin 3.8 Urine Color Urine Appearance Urine pH Ur Specific [place] Urine Protein Urine Glucose (UA) Urine Ketones Urine Blood Urine Nitrite Ur Leukocyte Esterase Urine RBC Urine WBC Ur Squamous Epith Cells Urine Bacteria Hyaline Casts COVID-19 (ISAAK) Negative COVID-19 Clin Com See Note Influenza Type A (RORO) Negative Influenza Type B (RORO) Negative Influenza A & B Note See Note 08/06/23 08/06/23 08/06/23 05:36 06:22 07:02 WBC RBC Hgb Hct MCV MCH MCHC RDW Plt Count MPV Immature Gran % (Auto) Neut % (Auto) Lymph % (Auto) Patrick % (Auto) Eos % (Auto) Baso % (Auto) Lymph # (Auto) Patrick # (Auto) Eos # (Auto) Baso # (Auto) Abs Immat Gran (auto) Absolute Neuts (auto) Absolute Nucleated RBC Nucleated RBC % (auto) PT INR Sodium 131 L Potassium 6.6 H* Chloride 99 Carbon Dioxide 17 L Anion Gap 22 H BUN 56 H Creatinine 5.59 H* Estim Creat Clear Calc 7.7 Estimated GFR 7 POC Glucose 87 52 L* Random Glucose 55 L* Calcium 9.3 D Total Bilirubin AST ALT Alkaline Phosphatase Total Protein Albumin Urine Color Urine Appearance Urine pH Ur Specific [place] Urine Protein Urine Glucose (UA) Urine Ketones Urine Blood Urine Nitrite Ur Leukocyte Esterase Urine RBC Urine WBC Ur Squamous Epith Cells Urine Bacteria Hyaline Casts COVID-19 (ISAAK) COVID-19 Clin Com Influenza Type A (RORO) Influenza Type B (RORO) Influenza A & B Note 08/06/23 08/06/23 08/06/23 07:31 15:03 15:35 WBC RBC Hgb Hct MCV MCH MCHC RDW Plt Count MPV Immature Gran % (Auto) Neut % (Auto) Lymph % (Auto) Patrick % (Auto) Eos % (Auto) Baso % (Auto) Lymph # (Auto) Patrick # (Auto) Eos # (Auto) Baso # (Auto) Abs Immat Gran (auto) Absolute Neuts (auto) Absolute Nucleated RBC Nucleated RBC % (auto) PT INR Sodium Potassium Chloride Carbon Dioxide Anion Gap BUN Creatinine Estim Creat Clear Calc Estimated GFR POC Glucose 172 H 99 Random Glucose Calcium Total Bilirubin AST ALT Alkaline Phosphatase Total Protein Albumin Urine Color Yellow Urine Appearance Clear Urine pH 5.5 Ur Specific [place] 1.020 Urine Protein Trace Urine Glucose (UA) Negative Urine Ketones Negative Urine Blood Trace Urine Nitrite Negative Ur Leukocyte Esterase Negative Urine RBC 0-2 Urine WBC 0-5 Ur Squamous Epith Cells 0-2 Urine Bacteria None Seen Hyaline Casts 3-5 COVID-19 (ISAAK) COVID-19 Clin Com Influenza Type A (RORO) Influenza Type B (RORO) Influenza A & B Note 08/07/23 08/08/23 08/09/23 05:43 05:55 07:37 WBC 8.4 RBC 3.05 L Hgb 10.1 L Hct 31.2 L MCV 102.3 H MCH 33.1 H MCHC 32.4 RDW 15.2 Plt Count 180 MPV 10.6 Immature Gran % (Auto) Neut % (Auto) Lymph % (Auto) Patrick % (Auto) Eos % (Auto) Baso % (Auto) Lymph # (Auto) Patrick # (Auto) Eos # (Auto) Baso # (Auto) Abs Immat Gran (auto) Absolute Neuts (auto) Absolute Nucleated RBC 0.000 Nucleated RBC % (auto) 0.0 PT INR Sodium 134 L 132 L Potassium 4.4 D 4.5 Chloride 98 98 Carbon Dioxide 20 L 21 L Anion Gap 20 18 BUN 36 H 34 H Creatinine 5.30 H* 5.09 H* Estim Creat Clear Calc 8.1 8.4 Estimated GFR 8 8 POC Glucose 97 Random Glucose 82 89 Calcium 8.5 D 8.5 Total Bilirubin AST ALT Alkaline Phosphatase Total Protein Albumin Urine Color Urine Appearance Urine pH Ur Specific [place] Urine Protein Urine Glucose (UA) Urine Ketones Urine Blood Urine Nitrite Ur Leukocyte Esterase Urine RBC Urine WBC Ur Squamous Epith Cells Urine Bacteria Hyaline Casts COVID-19 (ISAAK) COVID-19 Clin Com Influenza Type A (RORO) Influenza Type B (RORO) Influenza A & B Note 08/09/23 08/09/23 08/09/23 11:19 16:29 20:23 WBC RBC Hgb Hct MCV MCH MCHC RDW Plt Count MPV Immature Gran % (Auto) Neut % (Auto) Lymph % (Auto) Patrick % (Auto) Eos % (Auto) Baso % (Auto) Lymph # (Auto) Patrick # (Auto) Eos # (Auto) Baso # (Auto) Abs Immat Gran (auto) Absolute Neuts (auto) Absolute Nucleated RBC Nucleated RBC % (auto) PT INR Sodium Potassium Chloride Carbon Dioxide Anion Gap BUN Creatinine Estim Creat Clear Calc Estimated GFR POC Glucose 138 H 104 150 H Random Glucose Calcium Total Bilirubin AST ALT Alkaline Phosphatase Total Protein Albumin Urine Color Urine Appearance Urine pH Ur Specific [place] Urine Protein Urine Glucose (UA) Urine Ketones Urine Blood Urine Nitrite Ur Leukocyte Esterase Urine RBC Urine WBC Ur Squamous Epith Cells Urine Bacteria Hyaline Casts COVID-19 (ISAAK) COVID-19 Clin Com Influenza Type A (RORO) Influenza Type B (RORO) Influenza A & B Note 08/10/23 08/11/23 05:35 09:11 WBC 9.1 RBC 3.25 L Hgb 10.8 L Hct 33.3 L MCV 102.5 H MCH 33.2 H MCHC 32.4 RDW 15.2 Plt Count 214 MPV 10.0 Immature Gran % (Auto) Neut % (Auto) Lymph % (Auto) Patrick % (Auto) Eos % (Auto) Baso % (Auto) Lymph # (Auto) Patrick # (Auto) Eos # (Auto) Baso # (Auto) Abs Immat Gran (auto) Absolute Neuts (auto) Absolute Nucleated RBC 0.000 Nucleated RBC % (auto) 0.0 PT INR Sodium 134 L Potassium 5.2 H Chloride 98 Carbon Dioxide 19 L Anion Gap 22 H BUN 69 H Creatinine 7.32 H* Estim Creat Clear Calc 5.9 Estimated GFR 5 POC Glucose 61 Random Glucose 97 Calcium 8.9 Total Bilirubin AST ALT Alkaline Phosphatase Total Protein Albumin Urine Color Urine Appearance Urine pH Ur Specific [place] Urine Protein Urine Glucose (UA) Urine Ketones Urine Blood Urine Nitrite Ur Leukocyte Esterase Urine RBC Urine WBC Ur Squamous Epith Cells Urine Bacteria Hyaline Casts COVID-19 (ISAAK) COVID-19 Clin Com Influenza Type A (RORO) Influenza Type B (RORO) Influenza A & B Note Airway Mallampati Class: III TM Dist: >3cm Neck ROM: Full Denture: Upper Heart: ronchi left more than than right Lungs: RRR Assessment and Plan Assessment Anesthesia Assessment: Anesthesia Plan Discussed Final Anesthetic Review Family History of Problems with Anesthesia: No History of Problems with Anesthesia: No NPO: Yes ASA Class: IV Final Preanesthetic Review: Meds/Allgs Chart Reviewed, Consent Obtained/Reviewed and Anes Risks/Benef Reviewed Patient Risk: High Procedure Risk: Low Anesthetic Plan Anesthetic Plan: GA Disposition: Standard PACU
--- NOTE | 2023-08-11 09:56 | MHC.SHP ---
Pre-Procedural Eval Section A - 24 Hr Update-Section A only Date of Service: 08/11/23 The patient is an INPATIENT: Yes Section B - Complete if H&P > 30 days Chief Complaint: vaginal bleeding, vaginal mass Allergies: Allergies Allergy/AdvReac Type Severity Reaction Status Date / Time NSAIDS (Non-Steroidal Allergy Unknown Verified 07/16/23 14:07 Anti-Inflamma Nfiisyz-GIF-EaE Reductase AdvReac Severe LEG PAIN Verified 07/16/23 14:07 Inhibitor Plan Diagnosis/Plan: Unchanged I have reviewed the history and physical and performed a pertinent physical examination on my patient. No changes have occurred unless specified. Cystoscopy, possible biopsies Time Spent With Patient Time: Total time managing care of this patient today ____ minutes.
--- NOTE | 2023-08-11 10:25 | P.PNIM_ITS ---
Subjective Subjective Date of Service: 08/11/23 Interval History: vaginal spotting Physical Exam 2 Vital Signs: Vital Signs: Last Vital Signs Temp 98.0 F 08/11/23 09:39 Pulse 63 08/11/23 09:39 Resp 18 08/11/23 09:39 BP 103/3 L 08/11/23 09:39 Pulse Ox 95 08/11/23 09:39 O2 Del Method Nasal Cannula 08/11/23 09:39 O2 Flow Rate 2 08/11/23 09:39 FiO2 97 08/08/23 19:36 Oxygen Flow Rate 4 08/05/23 23:36 BMI result Body Mass Index 35.2 Const: Other: Constitutional : Awake, sleepy, frail, not in distress Neck : Normal inspection, Supple Cardiovascular : RRR, no JVP, no lower extremity edema Respiratory : good bilateral air entry, no crackles Gastrointestinal: soft, lax, Normal bowel sounds, Non tender Skin : Warm, Dry, RUE fistula Neurological : Alert & oriented x3, No focal deficit Objective Data Active Medications Acetaminophen (Acetaminophen 325 Mg Tablet) 650 mg PO Q6H PRN PRN Reason: Pain, Mild (Pain Scale 1-3) Last Admin: 08/10/23 08:31 Dose: 650 mg Documented By: SWATHI Albuterol Sulfate (Albuterol Sulfate 90 Mcg 8 Gm Inhaler) 2 puff INHALE Q4H PRN PRN Reason: Shortness Of Breath Or Wheezing Atorvastatin Calcium (Atorvastatin Calcium 20 Mg Tablet) 20 mg PO BEDTIME [facility] Last Admin: 08/10/23 20:01 Dose: 20 mg Documented By: ALVAREZ Benzonatate (Benzonatate 100 Mg Capsule) 200 mg PO TID PRN PRN Reason: Cough Last Admin: 08/09/23 18:32 Dose: 200 mg Documented By: ALVAREZ Escitalopram Oxalate (Escitalopram Oxalate 10 Mg Tablet) 10 mg PO DAILY [facility] Last Admin: 08/11/23 08:27 Dose: 10 mg Documented By: COTEMA Famotidine (Famotidine 20 Mg Tablet) 20 mg PO DAILY [facility] Last Admin: 08/11/23 08:27 Dose: 20 mg Documented By: PRADEEP Furosemide (Furosemide 40 Mg Tablet) 40 mg PO BID@0900,1800 [facility]; Protocol Last Admin: 08/07/23 09:16 Dose: 40 mg Documented By: ANNIE Gabapentin (Gabapentin 100 Mg Capsule) 100 mg PO TID [facility] Last Admin: 08/11/23 08:27 Dose: 100 mg Documented By: PRADEEP Guaifenesin (Guaifenesin La 600 Mg Tab.Er.12h) 600 mg PO BID [facility] Last Admin: 08/11/23 08:27 Dose: 600 mg Documented By: PRADEEP Cefazolin Sodium/Dextrose (Ancef) 2 gm in 50 mls @ 100 mls/hr IV PREOP ONE Stop: 08/11/23 10:29 Sodium Chloride (Ns) 500 mls @ 20 mls/hr IVCONT .Q24H [facility] Levothyroxine Sodium (Levothyroxine Sodium 100 Mcg Tablet) 100 mcg PO DAILY@0600 [facility] Last Admin: 08/11/23 05:04 Dose: Not Given Documented By: SILVER Non-Admin Reason: NPO AND ALSO TO DIALYSIS 0455 Metoprolol Tartrate (Metoprolol Tartrate 12.5 Mg Halftab) 12.5 mg PO BID [facility]; Protocol Last Admin: 08/11/23 08:27 Dose: 12.5 mg Documented By: PRADEEP Midodrine (Midodrine Hcl 5 Mg Tablet) 5 mg PO TID [facility] Last Admin: 08/11/23 08:10 Dose: Not Given Documented By: PRADEEP Non-Admin Reason: Previously Administered Nitroglycerin (Nitroglycerin 0.4 Mg Tab.Subl) 0.4 mg SUBLINGUAL Q5M PRN PRN Reason: chest pain Ondansetron HCl (Ondansetron Hcl 4 Mg/2 Ml Vial) 4 mg IVPUSH Q8H PRN PRN Reason: Nausea and Vomiting Ranolazine (Ranolazine 500 Mg Tab.Er.12h) 500 mg PO BID [facility] Last Admin: 08/11/23 08:27 Dose: 500 mg Documented By: PRADEEP Sodium Chloride (0.9 % Sodium Chloride Flush 3 Ml Syringe) 3 ml IVFLUSH QSHIFT [facility] Last Admin: 08/11/23 08:27 Dose: 3 ml Documented By: PRADEEP Labs 08/10/23 05:35 08/10/23 05:35 Labs: Laboratory Results - last 24 hr 08/11/23 09:11 POC Glucose 61 Assessment and Plan (1) ESRD (end stage renal disease): Status: Acute (2) Complication of AV dialysis fistula: Status: Acute (3) Vaginal bleeding: Status: Acute (4) Hyperkalemia: Status: Acute (5) Vaginal mass: Status: Acute Plan 82F PMH of ESRD on HD, Vaginal mass , CHF, HLD, OA, ILD depression among others who presents to the hospital for evaluation of vaginal bleeding and fistula problem. ESRD on HD Nephro following Had 2 dialysis sessions Hyperkalemia resolved AV Fistula problem Pain meds Vascular input appreciated, to do Fistulogram on Thursday by IR team Vaginal bleeding mass Gyne and urology evaluation, cystoscopy and biopsy today Pending MR Pelvis w contrast (waiting Rep to clear her for the study) Chronic hypoxic and hypercapnic respiratory failure on 4 L due to COPD/ild stable, not in exacerbation Hxe-jekdmge-sujaiuyzn type 2 diabetes continue diabetic diet, SSI, POCs CAD Continue aspirin, statin, Ranexa Hypothyroid Synthroid Chronic diastolic CHF Still makes urine, continue Lasix Severe obesity with BMI 35 weight loss encouraged DVT prophylaxis - mechanical due to bleeding DNR/DNI reason for continued hospitalization:fistulogram tomorrow Quality Stroke Does the patient have a stroke diagnosis?: No VTE Prior VTE?: No VTE Risk Level:: Medical - moderate - high VTE Device Contraindication: Treatment Not Indicated VTE Drug Contraindication: N/A - Med Ordered
--- NOTE | 2023-08-11 10:34 | MHC.SHP ---
Pre-Procedural Eval Section A - 24 Hr Update-Section A only Date of Service: 08/11/23 The patient is an INPATIENT: No Changes since office visit: No Cold of Flu in the past 2 weeks, No New Medical Problems, No Changes in Medication and No Patient answered all questions The patient has been examined within 24 hours of the surgical procedure. The History & Physical has been completed within 30 days and I have reviewed it.: Yes Section B - Complete if H&P > 30 days Chief Complaint: vaginal bleeding, vaginal mass Allergies: Allergies Allergy/AdvReac Type Severity Reaction Status Date / Time NSAIDS (Non-Steroidal Allergy Unknown Verified 07/16/23 14:07 Anti-Inflamma Javfyoi-QKE-FpS Reductase AdvReac Severe LEG PAIN Verified 07/16/23 14:07 Inhibitor Plan Diagnosis/Plan: Unchanged I have reviewed the history and physical and performed a pertinent physical examination on my patient. No changes have occurred unless specified. Time Spent With Patient Time: Total time managing care of this patient today ____ minutes.
--- NOTE | 2023-08-11 11:02 | P.PNNP_ITS ---
Subjective Subjective Date of Service: 08/11/23 Interval history: patient not in her room currently in OR had HD this morning Physical Exam 2 Vital Signs: Vital Signs: Last Vital Signs Temp 98.0 F 08/11/23 09:39 Pulse 63 08/11/23 09:39 Resp 18 08/11/23 09:39 BP 103/3 L 08/11/23 09:39 Pulse Ox 95 08/11/23 09:39 O2 Del Method Nasal Cannula 08/11/23 09:39 O2 Flow Rate 2 08/11/23 09:39 FiO2 97 08/08/23 19:36 Oxygen Flow Rate 4 08/05/23 23:36 BMI result Body Mass Index 35.2 Objective Data Labs 08/10/23 05:35 08/10/23 05:35 Labs: Laboratory Results - last 24 hr 08/11/23 09:11 POC Glucose 61 Procedures Date of Service Date of Service: 08/11/23 Assessment & Plan Assessment and plan (1) ESRD (end stage renal disease): Status: Acute (2) Hyperkalemia: Status: Acute (3) Anemia: Status: Acute Plan s/p HD this morning known ESRD on HD at [facility] followed by Dr Dumas presented with vaginal bleeding nephrogenic anemia access dysfunction REC fistulogram tomorrow sodium zirconium as needed HD in am per schedule renal diet phosphate binders no need for GEREMIAS Time Spent With Patient Time: Total time managing care of this patient today ____ minutes. Progress Note: Quality Stroke Does the patient have a stroke diagnosis?: No
--- NOTE | 2023-08-11 11:27 | PM.OP ---
Brief Operative Note Date of Service: 08/11/23 Pre-op diagnosis: Anterior vaginal wall mass Post-op diagnosis: same (Distal anterior vaginal wall mass near to the urethral opening) Procedure: Exam under anesthesia Anterior vaginal wall mass biopsies Surgeon: Mendoza Arias MD Anesthesia: GETA Was an [employer] Referee used for this Procedure?: No Estimated blood loss (mL): 10 Pathology: other (Multiple anterior vaginal wall mass biopsies) Condition: stable Disposition: PACU
--- NOTE | 2023-08-11 11:28 | W.PM.OPN ---
Operative Note Operative Note Date of Service: 08/11/23 Narrative: Preop diagnosis : Anterior vaginal wall mass Operation: Exam under anesthesia, Anterior vaginal wall mass biopsies Postop diagnosis: Distal anterior vaginal wall mass close to the urethral opening Estimated blood loss: 10 cc Anesthesia: general endotracheal Procedure: The patient was put in the dorsal lithotomy position and scrubbed and draped in the usual sterile fashion. Dr. Rome started with a diagnostic cystoscopy/ureteroscopy. Next a weighted speculum was inserted into the vaginal canal;inspection revealed anterior vaginal fungating wall mass around 3 x 4 cm, close to the urethral opening, of unknown origin, possible from the urethra or the vaginal wall. Multiple biopsies taken from the anterior vaginal wall mass. Cautery was used to secure hemostasis afterwards, the patient tolerate the procedure well; Dr. Rome took over afterwards.
[2023-08-11 12:07] LABS: Glucose, Whole Blood 93 mg/dL (60-115)
--- NOTE | 2023-08-11 12:12 | W.PM.OPN ---
Operative Note Operative Note Date of Service: 08/11/23 Narrative: PREOP DIAGNOSIS: Vaginal mass POSTOP DIAGNOSIS: Vaginal mass PROCEDURE: Examination under anesthesia, CYSTOSCOPY, Urethral biopsy SURGEON: Sherie Rome MD ANESTHESIA: General Indications/Findings: The patient presented with vaginal bleeding, on exam there is a pedunculated mass on the anterior vaginal wall that appear to involve the distal urethra. On cystoscopy the proximal urethra and bladder neck was within normal limits. Details of procedure: The patient was brought into the operating room placed on the OR table in supine position. 2 g of Ancef IV. General anesthesia was administered. The patient was repositioned into lithotomy position, prepped and draped in the usual sterile fashion. Time-out was done per protocol. Vaginal speculum and lonestar retractor was used to evaluated the vaginal mass, that involved the anterior vaginal wall and appeared to involve the distal urethra. A 22 fr cystoscope was placed transurethrally into the bladder. The right and left ureteral orifices were visualized. The entire bladder was visualized. There were no suspicious bladder lesions seen. Attempts to place the 24 fr resectoscope undermined the urethra superiorly at the 12 o'clock position, and was removed. DIRECTOR OF HEALTH CARE MARKETING obtained vaginal biopsies of the mass. The cystoscope was replaced and an amplatz guide wire was placed and an 18 fr [place] tip engel was placed over the guide wire. A biopsy was done of the mass at the distal urethra. The patient was brought out of anesthesia and taken to recovery in stable condition. Complications: None Drains: 18 fr [place] tip catheter
[2023-08-11] MEDS: Acetaminophen 1,000 MG/100 ML PIGGYBACK 400 MG IV (12:26)
[2023-08-11] MEDS: Albuterol Sulfate (0.083%) 2.5 MG/3 ML VIAL.NEB INHALE (12:32)
[2023-08-11] MEDS: Dextrose 5 % 50 ML 100 ML IV (14:01)
[2023-08-11] MEDS: Acetaminophen 325 MG TABLET 650 MG PO (14:49)
[2023-08-11 20:33] LABS: Glucose, Whole Blood 127 mg/dL (60-115)
[2023-08-11] MEDS: oxyCODONE HCl Immed Release 5 MG TABLET PO (20:43)
[2023-08-11] MEDS: Atorvastatin Calcium 20 MG TABLET PO (20:43)
[2023-08-12 03:25] VITALS: BP 114/55; PULSE 71; RESP 18; TEMP 36.1; O2SAT 99
[2023-08-12 06:08] LABS: Hematocrit 30.1 % (37.0-47.0); Hemoglobin 9.7 g/dl (12.0-16.0); Mean Corpuscular HGB Conc 32.2 g/dl (31.0-35.0); Mean Corpuscular Hemoglobin 33.1 pg (27.0-33.0); Mean Corpuscular Volume 102.7 fL (80.0-98.0); Mean Platelet Volume 10.2 fL (9.4-12.3); Platelet Count 219 X10*3/uL (160-400); Red Blood Count 2.93 X10*6/uL (4.20-5.50); Red Cell Distribution Width 15.1 % (11.0-16.0); White Blood Count 8.5 X10*3/uL (4.8-10.8)
[2023-08-12 06:29] LABS: Estimated Average Glucose 77 mg/dL; Hemoglobin A1c % 4.3 % (<6.0)
[2023-08-12 06:47] LABS: Anion Gap 20 (12-20); Blood Urea Nitrogen 56 mg/dL (9-16); Calcium 8.2 mg/dL (8.4-10.2); Carbon Dioxide 21 mmol/L (22-29); Chloride 99 mmol/L (96-108); Creatinine Clr Calc Pharmacy 6.4; Estimated Glomerular Filt Rate 6; Glucose Fasting 94 mg/dL (60-99); Potassium 4.6 mmol/L (3.3-5.1); Sodium 135 mmol/L (135-145)
[2023-08-12 07:24] VITALS: BP 119/56; PULSE 67; RESP 16; TEMP 36.6; O2SAT 94
--- NOTE | 2023-08-12 08:40 | HO.PM.IMPN ---
Subjective Subjective Date of Service: 08/12/23 Interval History: suprapubic pain Physical Exam Vital Signs: Vital Signs: Last Vital Signs Temp 97.9 F 08/12/23 07:24 Pulse 67 08/12/23 07:24 Resp 16 08/12/23 07:24 BP 119/56 L 08/12/23 07:24 Pulse Ox 94 08/12/23 07:24 O2 Del Method Nasal Cannula 08/12/23 07:24 O2 Flow Rate 2 08/12/23 07:24 FiO2 97 08/08/23 19:36 Oxygen Flow Rate 4 08/05/23 23:36 BMI result Body Mass Index 35.2 Const: Other: Constitutional : Awake, sleepy, frail, not in distress Neck : Normal inspection, Supple Cardiovascular : RRR, no JVP, no lower extremity edema Respiratory : good bilateral air entry, no crackles Gastrointestinal: soft, lax, Normal bowel sounds, Non tender Skin : Warm, Dry, RUE fistula Neurological : Alert & oriented x3, No focal deficit Objective Data Active Medications Acetaminophen (Acetaminophen 325 Mg Tablet) 650 mg PO Q6H PRN PRN Reason: Pain, Mild (Pain Scale 1-3) Last Admin: 08/11/23 14:49 Dose: 650 mg Documented By: PRADEEP Albuterol Sulfate (Albuterol Sulfate 90 Mcg 8 Gm Inhaler) 2 puff INHALE Q4H PRN PRN Reason: Shortness Of Breath Or Wheezing Aspirin (Aspirin Enteric Coated 81 Mg Tablet.) 81 mg PO DAILY [facility] Last Admin: 08/12/23 07:00 Dose: Not Given Documented By: COTEMA Non-Admin Reason: NPO Atorvastatin Calcium (Atorvastatin Calcium 20 Mg Tablet) 20 mg PO BEDTIME [facility] Last Admin: 08/11/23 20:43 Dose: 20 mg Documented By: LYSZ Benzonatate (Benzonatate 100 Mg Capsule) 200 mg PO TID PRN PRN Reason: Cough Last Admin: 08/09/23 18:32 Dose: 200 mg Documented By: BEIT Escitalopram Oxalate (Escitalopram Oxalate 10 Mg Tablet) 10 mg PO DAILY [facility] Last Admin: 08/12/23 07:00 Dose: Not Given Documented By: COTEMA Non-Admin Reason: NPO Famotidine (Famotidine 20 Mg Tablet) 20 mg PO DAILY [facility] Last Admin: 08/12/23 07:01 Dose: Not Given Documented By: COTEMA Non-Admin Reason: NPO Fentanyl (Fentanyl Citrate/Pf 100 Mcg/2 Ml Vial) 25 mcg IVPUSH Q5M PRN; Protocol PRN Reason: Pain, Moderate(Pain Scale 4-6) Furosemide (Furosemide 40 Mg Tablet) 40 mg PO BID@0900,1800 [facility]; Protocol Last Admin: 08/07/23 09:16 Dose: 40 mg Documented By: GRAZIC Gabapentin (Gabapentin 100 Mg Capsule) 100 mg PO TID [facility] Last Admin: 08/12/23 07:01 Dose: Not Given Documented By: COTEMA Non-Admin Reason: NPO Guaifenesin (Guaifenesin La 600 Mg Tab.Er.12h) 600 mg PO BID [facility] Last Admin: 08/12/23 07:01 Dose: Not Given Documented By: COTEMA Non-Admin Reason: NPO Levothyroxine Sodium (Levothyroxine Sodium 100 Mcg Tablet) 100 mcg PO DAILY@0600 [facility] Last Admin: 08/12/23 06:02 Dose: Not Given Documented By: LYSZ Non-Admin Reason: NPO Metoprolol Tartrate (Metoprolol Tartrate 12.5 Mg Halftab) 12.5 mg PO BID [facility]; Protocol Last Admin: 08/12/23 07:01 Dose: Not Given Documented By: COTTONY Non-Admin Reason: NPO Midodrine (Midodrine Hcl 5 Mg Tablet) 5 mg PO TID [facility] Last Admin: 08/12/23 07:37 Dose: Not Given Documented By: COTEMA Non-Admin Reason: NPO Nitroglycerin (Nitroglycerin 0.4 Mg Tab.Subl) 0.4 mg SUBLINGUAL Q5M PRN PRN Reason: chest pain Ondansetron HCl (Ondansetron Hcl 4 Mg/2 Ml Vial) 4 mg IVPUSH Q8H PRN PRN Reason: Nausea and Vomiting Ranolazine (Ranolazine 500 Mg Tab.Er.12h) 500 mg PO BID [facility] Last Admin: 08/12/23 07:01 Dose: Not Given Documented By: COTEMA Non-Admin Reason: NPO Sodium Chloride (0.9 % Sodium Chloride Flush 3 Ml Syringe) 3 ml IVFLUSH QSHIFT [facility] Last Admin: 08/11/23 20:45 Dose: 3 ml Documented By: VALARIE Labs 08/12/23 05:49 08/12/23 05:49 Labs: Laboratory Results - last 24 hr 08/11/23 08/11/23 08/11/23 09:11 12:04 20:28 MCV MCH MCHC RDW Plt Count MPV Absolute Nucleated RBC Nucleated RBC % (auto) Anion Gap Estim Creat Clear Calc Estimated GFR POC Glucose 61 93 127 H Fasting Glucose Estimat Average Glucose Hemoglobin A1c % Calcium 08/12/23 05:49 MCV 102.7 H MCH 33.1 H MCHC 32.2 RDW 15.1 Plt Count 219 MPV 10.2 Absolute Nucleated RBC 0.000 Nucleated RBC % (auto) 0.0 Anion Gap 20 Estim Creat Clear Calc 6.4 Estimated GFR 6 POC Glucose Fasting Glucose 94 Estimat Average Glucose 77 Hemoglobin A1c % 4.3 Calcium 8.2 L D Assessment and Plan (1) ESRD (end stage renal disease): Status: Acute (2) Complication of AV dialysis fistula: Status: Acute (3) Vaginal bleeding: Status: Acute (4) Hyperkalemia: Status: Acute (5) Vaginal mass: Status: Acute Plan 82F PMH of ESRD on HD, Vaginal mass , CHF, HLD, OA, ILD depression among others who presents to the hospital for evaluation of vaginal bleeding and fistula problem. ESRD on HD Nephro following Hyperkalemia resolved AV Fistula problem Pain meds Vascular input appreciated, to do Fistulogram today by IR team Vaginal bleeding mass Gyne and urology evaluation, s/p cystoscopy and biopsy 08/11/23 Pending MR Pelvis w contrast (waiting Rep to clear her for the study) Chronic hypoxic and hypercapnic respiratory failure on 4 L due to COPD/ild stable, not in exacerbation Ybu-bujlnza-mruzklobs type 2 diabetes continue diabetic diet, SSI, POCs CAD Continue aspirin, statin, Ranexa Hypothyroid Synthroid Chronic diastolic CHF Still makes urine, continue Lasix Severe obesity with BMI 35 weight loss encouraged DVT prophylaxis - mechanical due to bleeding DNR/DNI reason for continued hospitalization:fistulogram today Quality Stroke Does the patient have a stroke diagnosis?: No VTE Prior VTE?: No VTE Risk Level:: Medical - moderate - high VTE Device Contraindication: Treatment Not Indicated VTE Drug Contraindication: N/A - Med Ordered
[2023-08-12] MEDS: 0.9 % Sodium Chloride Flush 3 ML SYRINGE IVFLUSH ×3 (09:14→21:27)
[2023-08-12] MEDS: oxyCODONE HCl Immed Release 5 MG TABLET PO ×2 (09:14→18:34)
[2023-08-12 10:39] LABS: Glucose, Whole Blood 86 mg/dL (60-115)
--- NOTE | 2023-08-12 10:54 | MHC.CLN ---
NUTRITION PATIENT NPO 08/11 AND TODAY FOR PROCEDURES. WHEN DIET RESUMES, RECOMMEND DIABETIC 2000 KCALS, 2 GRAM SODIUM, LOW POTASSIUM, CHOPPED CONSISTENCY.
--- NOTE | 2023-08-12 12:45 | MHC.CM.PN ---
Per MD rounds no discharge today. The patient is scheduled for a Fistulagram today. DP Home with resumption of [employer] and HD. Patient will transport via BLS.
[2023-08-12 13:34] VITALS: BP 115/54; PULSE 66; RESP 16; TEMP 36.3; O2SAT 99
--- NOTE | 2023-08-12 14:33 | HO.POSTANES ---
Post Anesthesia Evaluation Post Anesthesia Evaluation Date of Service: 08/12/23 Vital Signs: Vital Signs Temp Pulse Resp BP Pulse Ox O2 Del Method O2 Flow Rate 08/12/23 13:34 97.3 F 66 16 115/54 L 99 Nasal Cannula 2 08/12/23 07:24 97.9 F 67 16 119/56 L 94 Nasal Cannula 2 08/12/23 03:25 97 F 71 18 114/55 L 99 Nasal Cannula 2 Anesthesia: General Mental Status: Awake Pain Control: Satisfactory Nausea/Vomiting: None Hydration: Adequate Anesthesia-Related Issues: No Anes. Related Issues
[2023-08-12] MEDS: Gabapentin 100 MG CAPSULE PO ×2 (14:35→21:27)
[2023-08-12] MEDS: Midodrine HCl 5 MG TABLET PO ×2 (14:35→21:27)
--- NOTE | 2023-08-12 15:21 | PM.EVENT ---
Event Note Date of Service: 08/12/23 Event Note: Procedure Note: RUE fistulagram with peripheral angioplasty Indications: Pain during dialysis, HVP Events: Web present in right mid arm venous outflow treated with 6 mm balloon with improved flow and decreased filling of collaterals. German JOHNSON/Dr. Garner Interventional Radiology Time Spent With Patient Time: Total time managing care of this patient today ____ minutes.
[2023-08-12] MEDS: gadobutroL 10 ML VIAL IVPUSH (16:09)
[2023-08-12 20:00] VITALS: BP 119/57; PULSE 78; RESP 18; TEMP 37.1; O2SAT 94
[2023-08-12] MEDS: Atorvastatin Calcium 20 MG TABLET PO (21:27)
[2023-08-12] MEDS: Ranolazine 500 MG TAB.ER.12H PO (21:27)
[2023-08-12] MEDS: guaiFENesin LA 600 MG TAB.ER.12H PO (21:27)
[2023-08-12] MEDS: Metoprolol Tartrate 12.5 MG HALFTAB PO (21:27)
[2023-08-13 03:43] VITALS: BP 114/57; PULSE 72; RESP 18; TEMP 37.2; O2SAT 95
[2023-08-13] MEDS: Levothyroxine Sodium 100 MCG TABLET PO (06:18)
[2023-08-13 07:12] LABS: Hematocrit 30.5 % (37.0-47.0); Hemoglobin 10.1 g/dl (12.0-16.0); Mean Corpuscular HGB Conc 33.1 g/dl (31.0-35.0); Mean Corpuscular Hemoglobin 33.7 pg (27.0-33.0); Mean Corpuscular Volume 101.7 fL (80.0-98.0); Mean Platelet Volume 10.8 fL (9.4-12.3); Platelet Count 249 X10*3/uL (160-400); Red Cell Distribution Width 15.1 % (11.0-16.0); White Blood Count 6.8 X10*3/uL (4.8-10.8)
[2023-08-13 07:30] LABS: Anion Gap 15 (12-20); Blood Urea Nitrogen 26 mg/dL (9-16); Calcium 8.9 mg/dL (8.4-10.2); Carbon Dioxide 25 mmol/L (22-29); Chloride 99 mmol/L (96-108); Creatinine Clr Calc Pharmacy 10.3; Estimated Glomerular Filt Rate 10; Glucose Fasting 94 mg/dL (60-99); Potassium 4.6 mmol/L (3.3-5.1); Sodium 134 mmol/L (135-145)
[2023-08-13 07:34] VITALS: BP 113/57; PULSE 72; RESP 18; TEMP 36.5; O2SAT 98
[2023-08-13] MEDS: Ranolazine 500 MG TAB.ER.12H PO ×2 (08:41→22:34)
[2023-08-13] MEDS: Midodrine HCl 5 MG TABLET PO ×3 (08:41→22:34)
[2023-08-13] MEDS: Metoprolol Tartrate 12.5 MG HALFTAB PO ×2 (08:41→22:33)
[2023-08-13] MEDS: guaiFENesin LA 600 MG TAB.ER.12H PO ×2 (08:41→22:33)
[2023-08-13] MEDS: Famotidine 20 MG TABLET PO (08:41)
[2023-08-13] MEDS: Gabapentin 100 MG CAPSULE PO ×3 (08:42→22:35)
[2023-08-13] MEDS: oxyCODONE HCl Immed Release 5 MG TABLET PO ×2 (08:42→14:43)
[2023-08-13] MEDS: Benzonatate 100 MG CAPSULE 200 MG PO (08:42)
[2023-08-13] MEDS: Aspirin Enteric Coated 81 MG TABLET.DR PO (08:42)
[2023-08-13] MEDS: Escitalopram Oxalate 10 MG TABLET PO (08:42)
[2023-08-13] MEDS: 0.9 % Sodium Chloride Flush 3 ML SYRINGE IVFLUSH (08:46)
[2023-08-13 09:39] LABS: Glucose, Whole Blood 116 mg/dL (60-115)
--- NOTE | 2023-08-13 10:27 | PM.DS ---
DS: Providers Provider Date of Service: 08/14/23 Date of admission: 08/06/23 07:38 Primary care physician: Christina Paiz MD Consults: 08/06/23 07:37 Consult to Nephrology Routine Consulting Provider: [facility] Reason for consultation: Need of dialysis, hyperkalemia 08/06/23 10:59 Consult to Vascular Surgery Routine Consulting Provider: [facility] Reason for consultation: Fistula problem, for Fistulagram\placement Permacath ?? 08/06/23 14:12 Consult to Urology Routine Consulting Provider: Sherie Rome Reason for consultation: bleeding Vaginal mass - for eval and rec per GYNE rec. DS: Diagnosis Discharge Diagnosis (1) ESRD (end stage renal disease): Status: Acute (2) Complication of AV dialysis fistula: Status: Acute (3) Vaginal bleeding: Status: Acute (4) Hyperkalemia: Status: Acute (5) Vaginal mass: Status: Acute DS: Summary Hospital Course Hospital Course: from initial hpi: 82 years old lady with PMH of ESRD on HD, Vaginal mass , CHF, HLD, OA, ILD depression among others who presents to the hospital for evaluation of vaginal bleeding and fistula problem. The patient was evaluated few days earlier in ED by Gyne for vaginal bleeding mass with a plan for outpatient follow up with [facility] oncology that did not materialize yet. mainly spotting. Hb stable. She also had pain and resistance when she have dialysis from her fistula site. she can not finish sessions many time because of this pain and feeling uncomfortable. admitted for further evaluation hospital course: Patient was admitted for pain in her right AV fistula during dialysis. She underwent fistulogram with ballooning and verified good flow. Patient also noted to have vaginal mass with bleeding. Underwent cystoscopy with biopsy, also underwent MRI. biopsy was positive for invasive melanoma (molecular studies pending). She should be followed up outpatient by manager clinical applications Oncology. For chronic hypoxic and hypercapnic respiratory failure due to COPD/ILD she continued on her baseline 4 L. for end-stage renal disease she continued on hemodialysis. For diabetes history this appears to have resolved, her A1c was under 5. For coronary disease was continued on aspirin, statin, Ranexa. For hypothyroidism was continued on Synthroid. For chronic diastolic CHF she was continued on Lasix. For severe obesity weight loss is encouraged. Patient is feeling better will be discharged home. She has a Engel catheter after cystoscopy, this should be removed in several days for voiding trial. Time Attestation Discharge coordination time: Greater than 30 minutes Quality: Safe Use of Opioids Does Pt have an Active Cancer Diagnosis on the Problem List?: Yes Opioid Measure Date for [facility] Report: 07/15/23 Opioid Measure Time for [facility] Report: 11:53 Quality: Stroke Does the patient have a stroke diagnosis?: No Physical Exam Vital Signs: Vital Signs: Last Vital Signs Temp 97.7 F 08/13/23 07:34 Pulse 72 08/13/23 07:34 Resp 18 08/13/23 07:34 BP 113/57 L 08/13/23 07:34 Pulse Ox 98 08/13/23 07:34 O2 Del Method Nasal Cannula 08/13/23 07:34 O2 Flow Rate 2 08/13/23 07:34 FiO2 97 08/08/23 19:36 Oxygen Flow Rate 4 08/05/23 23:36 BMI result Body Mass Index 35.2 DS: Data Data Completed and Pending Completed studies during hospitalization [Text1]: Procedures Assistance with Respiratory Ventilation, Less than 24 Consecutive Hours, Continuous Positive Airway Pressure (05/04/23) Performance of Urinary Filtration, Intermittent, Less than 6 Hours Per Day (05/13/23) Pending studies at discharge: Pending at discharge 08/11/23 12:00 Surgical [PTH] Routine Labs on day of discharge: Laboratory Results - last 24 hr 08/12/23 08/13/23 08/13/23 10:34 05:48 09:35 WBC 6.8 RBC 3.00 L Hgb 10.1 L Hct 30.5 L MCV 101.7 H MCH 33.7 H MCHC 33.1 RDW 15.1 Plt Count 249 MPV 10.8 Absolute Nucleated RBC 0.000 Nucleated RBC % (auto) 0.0 Sodium 134 L Potassium 4.6 Chloride 99 Carbon Dioxide 25 Anion Gap 15 BUN 26 H Creatinine 4.17 H* Estim Creat Clear Calc 10.3 Estimated GFR 10 POC Glucose 86 116 H Fasting Glucose 94 Calcium 8.9 D Discharge Plan Discharge Anticipated Discharge Date/Time: 08/13/23 10:15 Patient Disposition: Home, Self-Care Discharge Diagnosis: fistula pain, vaginal mass Referrals: Christina Paiz MD [Primary Care Provider] - 1 Week Discharge Medications: New midodrine 5 mg Tablet 5 mg PO TID 90 Days Qty: 270 0RF Continued (DME) wheelchair with footrests See Rx Instructions .Route .MEDSUPPLY Qty: 1 0RF Rx Instructions: As directed ([facility]) blood pressure test kit-medium Kit See Rx Instructions .Route Qty: 1 0RF Rx Instructions: As directed ([facility]) bedside commode Kit See Rx Instructions .Route Qty: 1 0RF Rx Instructions: As directed ([facility]) grab bar for bathroom See Rx Instructions .Route .MEDSUPPLY Qty: 2 0RF Rx Instructions: As directed citalopram 20 mg tablet 20 mg PO DAILY Qty: 300 3RF levothyroxine 100 mcg tablet 100 mcg PO DAILY@0600 famotidine 20 mg tablet 20 mg PO DAILY albuterol sulfate 90 mcg/actuation HFA aerosol inhaler 2 puff inhalation Q4H PRN (Reason: Shortness Of Breath Or Wheezing) aspirin 81 mg Tablet,Delayed Release (Dr/Ec) 81 mg PO DAILY Qty: 90 0RF metoprolol tartrate 25 mg tablet 12.5 mg PO BID Qty: 180 0RF atorvastatin 20 mg tablet 20 mg PO BEDTIME furosemide 40 mg Tablet 40 mg PO BID@0900,1800 Qty: 60 0RF Protocol: Hold for SBP< HOLD for SBP < : 90 gabapentin 100 mg capsule 100 mg PO TID Trelegy Ellipta 100-62.5-25 mcg blister with device 1 ea inhalation DAILY Qty: 60 3RF ranolazine 500 mg tablet extended release 12 hr 500 mg PO BID 90 Days Qty: 180 3RF nitroglycerin 0.4 mg tablet, sublingual 0.4 mg sublingual Q5M PRN (Reason: chest pain) Qty: 30 5RF Rx Instructions: do not exceed 3 doses per episode Discontinued vancomycin in 0.9 % sodium chl 500 mg/100 mL piggyback 500 mg IV MOWEFR Rx Instructions: During dialysis Discharge Orders: Discharge Order (Routine); Ordered 08/14/23 Ordered By: Evgeny Scott Diet: Advance to usual diet Activity on Discharge: As tolerated Stand Alone Forms: Patient Portal Discharge page Care Plan Goals: mange avf pain, manage viagnial mass Health Concerns: engel, avf pain, vaginal mass Plan of Treatment: voiding trial in several days, follow up with urology, gynoncology, nephro Assessment: see above
--- NOTE | 2023-08-13 10:30 | HO.PM.IMPN ---
Subjective Subjective Date of Service: 08/13/23 Interval History: still with some pain during hd Physical Exam Vital Signs: Vital Signs: Last Vital Signs Temp 97.7 F 08/13/23 07:34 Pulse 72 08/13/23 07:34 Resp 18 08/13/23 07:34 BP 113/57 L 08/13/23 07:34 Pulse Ox 98 08/13/23 07:34 O2 Del Method Nasal Cannula 08/13/23 07:34 O2 Flow Rate 2 08/13/23 07:34 FiO2 97 08/08/23 19:36 Oxygen Flow Rate 4 08/05/23 23:36 BMI result Body Mass Index 35.2 Const: Other: Constitutional : Awake, sleepy, frail, not in distress Neck : Normal inspection, Supple Cardiovascular : RRR, no JVP, no lower extremity edema Respiratory : good bilateral air entry, no crackles Gastrointestinal: soft, lax, Normal bowel sounds, Non tender Skin : Warm, Dry, RUE fistula Neurological : Alert & oriented x3, No focal deficit Objective Data Active Medications Acetaminophen (Acetaminophen 325 Mg Tablet) 650 mg PO Q6H PRN PRN Reason: Pain, Mild (Pain Scale 1-3) Last Admin: 08/11/23 14:49 Dose: 650 mg Documented By: COTEMA Albuterol Sulfate (Albuterol Sulfate 90 Mcg 8 Gm Inhaler) 2 puff INHALE Q4H PRN PRN Reason: Shortness Of Breath Or Wheezing Aspirin (Aspirin Enteric Coated 81 Mg Tablet.) 81 mg PO DAILY [facility] Last Admin: 08/13/23 08:42 Dose: 81 mg Documented By: COTEMA Atorvastatin Calcium (Atorvastatin Calcium 20 Mg Tablet) 20 mg PO BEDTIME [facility] Last Admin: 08/12/23 21:27 Dose: 20 mg Documented By: LYSZ Benzonatate (Benzonatate 100 Mg Capsule) 200 mg PO TID PRN PRN Reason: Cough Last Admin: 08/13/23 08:42 Dose: 200 mg Documented By: JAREN.COTEMA Escitalopram Oxalate (Escitalopram Oxalate 10 Mg Tablet) 10 mg PO DAILY [facility] Last Admin: 08/13/23 08:42 Dose: 10 mg Documented By: JAREN.COTEMA Famotidine (Famotidine 20 Mg Tablet) 20 mg PO DAILY [facility] Last Admin: 08/13/23 08:41 Dose: 20 mg Documented By: HO.COTEMA Fentanyl (Fentanyl Citrate/Pf 100 Mcg/2 Ml Vial) 25 mcg IVPUSH Q5M PRN; Protocol PRN Reason: Pain, Moderate(Pain Scale 4-6) Furosemide (Furosemide 40 Mg Tablet) 40 mg PO BID@0900,1800 [facility]; Protocol Last Admin: 08/07/23 09:16 Dose: 40 mg Documented By: GRAZIC Gabapentin (Gabapentin 100 Mg Capsule) 100 mg PO TID [facility] Last Admin: 08/13/23 08:42 Dose: 100 mg Documented By: COTEMA Guaifenesin (Guaifenesin La 600 Mg Tab.Er.12h) 600 mg PO BID [facility] Last Admin: 08/13/23 08:41 Dose: 600 mg Documented By: COTEMA Levothyroxine Sodium (Levothyroxine Sodium 100 Mcg Tablet) 100 mcg PO DAILY@0600 [facility] Last Admin: 08/13/23 06:18 Dose: 100 mcg Documented By: LYSZ Metoprolol Tartrate (Metoprolol Tartrate 12.5 Mg Halftab) 12.5 mg PO BID [facility]; Protocol Last Admin: 08/13/23 08:41 Dose: 12.5 mg Documented By: COTEMA Midodrine (Midodrine Hcl 5 Mg Tablet) 5 mg PO TID [facility] Last Admin: 08/13/23 08:41 Dose: 5 mg Documented By: COTEMA Nitroglycerin (Nitroglycerin 0.4 Mg Tab.Subl) 0.4 mg SUBLINGUAL Q5M PRN PRN Reason: chest pain Ondansetron HCl (Ondansetron Hcl 4 Mg/2 Ml Vial) 4 mg IVPUSH Q8H PRN PRN Reason: Nausea and Vomiting Oxycodone HCl (Oxycodone Hcl Immed Release 5 Mg Tablet) 5 mg PO Q6H PRN PRN Reason: moderate pain Last Admin: 08/13/23 08:42 Dose: 5 mg Documented By: COTEMA Ranolazine (Ranolazine 500 Mg Tab.Er.12h) 500 mg PO BID [facility] Last Admin: 08/13/23 08:41 Dose: 500 mg Documented By: COTEMA Sodium Chloride (0.9 % Sodium Chloride Flush 3 Ml Syringe) 3 ml IVFLUSH QSHIFT [facility] Last Admin: 08/13/23 08:46 Dose: 3 ml Documented By: COTEMA Labs 08/13/23 05:48 08/13/23 05:48 Labs: Laboratory Results - last 24 hr 08/12/23 08/13/23 08/13/23 10:34 05:48 09:35 MCV 101.7 H MCH 33.7 H MCHC 33.1 RDW 15.1 Plt Count 249 MPV 10.8 Absolute Nucleated RBC 0.000 Nucleated RBC % (auto) 0.0 Anion Gap 15 Estim Creat Clear Calc 10.3 Estimated GFR 10 POC Glucose 86 116 H Fasting Glucose 94 Calcium 8.9 D Assessment and Plan (1) ESRD (end stage renal disease): Status: Acute (2) Complication of AV dialysis fistula: Status: Acute (3) Vaginal bleeding: Status: Acute (4) Hyperkalemia: Status: Acute (5) Vaginal mass: Status: Acute Plan 82F PMH of ESRD on HD, Vaginal mass , CHF, HLD, OA, ILD depression among others who presents to the hospital for evaluation of vaginal bleeding and fistula problem. ESRD on HD Nephro following Hyperkalemia resolved AV Fistula problem Pain meds s/p fistulogram and ballooning Vaginal bleeding mass Gyne and urology evaluation, s/p cystoscopy and biopsy 08/11/23 s/p MR Pelvis w contrast see report Chronic hypoxic and hypercapnic respiratory failure on 4 L due to COPD/ild stable, not in exacerbation Hez-oarbuqa-dgpzfdpxb type 2 diabetes continue diabetic diet, SSI, POCs CAD Continue aspirin, statin, Ranexa Hypothyroid Synthroid Chronic diastolic CHF Still makes urine, continue Lasix Severe obesity with BMI 35 weight loss encouraged DVT prophylaxis - mechanical due to bleeding DNR/DNI reason for continued hospitalization: for hd tomorrow Quality Stroke Does the patient have a stroke diagnosis?: No VTE Prior VTE?: No VTE Risk Level:: Medical - moderate - high VTE Device Contraindication: Treatment Not Indicated VTE Drug Contraindication: N/A - Med Ordered
--- NOTE | 2023-08-13 10:54 | PC.NURSE ---
Patient pulled out IV access. Dr. Scott made aware. Okay for patient to remain without IV access, patient is to be discharged tomorrow 08/14/23 after dialysis.
--- NOTE | 2023-08-13 12:26 | MHC.CM.PN ---
Addendum entered by Tamia Shrestha 08/13/23 13:48: Notified Katelin GUERRERO that patient will discharge tomorrow. She will return to HD Thursday08/17/23. Original Note: Patient will discharge tomorrow after HD. Her transportation to HD will resume on Thursday. DP Home with resumption of [employer] and HD MWF Katelin GUERRERO. Patient travels by BLS.
[2023-08-13 15:11] VITALS: BP 116/62; PULSE 66; RESP 16; TEMP 36.5; O2SAT 98
--- NOTE | 2023-08-13 15:41 | P.PNNP_ITS ---
Subjective Subjective Date of Service: 08/13/23 Interval history: still with some pain during hd Physical Exam 2 Vital Signs: Vital Signs: Last Vital Signs Temp 97.7 F 08/13/23 15:11 Pulse 66 08/13/23 15:11 Resp 16 08/13/23 15:11 BP 116/62 08/13/23 15:11 Pulse Ox 98 08/13/23 15:11 O2 Del Method Nasal Cannula 08/13/23 15:11 O2 Flow Rate 3 08/13/23 15:11 FiO2 97 08/08/23 19:36 Oxygen Flow Rate 4 08/05/23 23:36 BMI result Body Mass Index 35.2 Const: General: cooperative and no acute distress Resp: Effort & Inspection: normal respiratory effort Auscultation: no crackles and no wheezes Cardio: Rate: regular rate Rhythm: regular rhythm Heart sounds: S1 normal heart sound present GI: Auscultation: normal bowel sounds Extrem: General: Yes no pedal edema Objective Data Labs 08/13/23 05:48 08/13/23 05:48 Labs: Laboratory Results - last 24 hr 08/13/23 08/13/23 05:48 09:35 WBC 6.8 RBC 3.00 L Hgb 10.1 L Hct 30.5 L MCV 101.7 H MCH 33.7 H MCHC 33.1 RDW 15.1 Plt Count 249 MPV 10.8 Absolute Nucleated RBC 0.000 Nucleated RBC % (auto) 0.0 Sodium 134 L Potassium 4.6 Chloride 99 Carbon Dioxide 25 Anion Gap 15 BUN 26 H Creatinine 4.17 H* Estim Creat Clear Calc 10.3 Estimated GFR 10 POC Glucose 116 H Fasting Glucose 94 Calcium 8.9 D Procedures Date of Service Date of Service: 08/13/23 Assessment & Plan Assessment and plan (1) ESRD needing dialysis: Status: Acute Plan Pt is ESRD on HD MWF, s/p fistulogram yesterday and then underwent HD afterwards without any issues ESRD on HD MWF Last HD Thursday S/p fistologram and balloon angioplasty on 08/12/23 HTN BP at target range Anemia Hb 10.1 At target range Plan: Plan is for next HD session tomorrow and then patient can be discharge Continue current BP meds Dose meds per HD Time Spent With Patient Time: Total time managing care of this patient today ____ minutes. Progress Note: Quality Stroke Does the patient have a stroke diagnosis?: No
[2023-08-13 19:25] VITALS: BP 105/59; PULSE 67; RESP 16; TEMP 36.2; O2SAT 100
[2023-08-13] MEDS: Atorvastatin Calcium 20 MG TABLET PO (22:35)
[2023-08-14 02:52] VITALS: BP 117/55; PULSE 73; RESP 18; TEMP 37.1; O2SAT 97
[2023-08-14] MEDS: oxyCODONE HCl Immed Release 5 MG TABLET PO ×3 (06:25→19:01)
[2023-08-14] MEDS: Levothyroxine Sodium 100 MCG TABLET PO (06:25)
[2023-08-14 07:14] VITALS: BP 107/53; PULSE 79; RESP 16; TEMP 36.6; O2SAT 98
--- NOTE | 2023-08-14 10:57 | MHC.CM.PN ---
Addendum entered by Tamia Shrestha 08/14/23 13:33: A call was received from Evie, the patients daughter. She stated that she received a call from her Mother. The patient was upset about her Biopsy results and she was having pain at the A-V fistula site. The patient returned from HD. The patient was settled in her room. The nurse assessed and medicated the patient for pain. Emotional support and encouragement were provided to the patient. Lunch was ordered. Transportation was been rescheduled to 6pm clam picker. Patient's dtr Evie has been notified that transport has been rescheduled for 6pm clam picker. She understands that the patient will discharge once she has eaten and her pain is in good control. Original Note: IMM 08/14/23 Patient is discharged today to home. Her [employer]ICK MIXER OPERATOR services will resume. She will resume HD MWF @ [facility]. All discharge information has been faxed to the HD center. They have been notified that the patient will resume HD on Thursday. BLS is scheduled for 2pm clam picker. Patients dtr Evie has been notified of the discharge time. Her granddaughter is her QUICK MIXER OPERATOR. She will meet BLS at the home.
[2023-08-14 13:28] VITALS: BP 149/68; PULSE 88
[2023-08-14] MEDS: Midodrine HCl 5 MG TABLET PO (14:47)
[2023-08-14] MEDS: Gabapentin 100 MG CAPSULE PO (14:47)
[2023-08-14 16:00] VITALS: BP 134/70; PULSE 74
== END 2023-08-14 19:21 | disposition home or self-care (01) | DRG 746 ==
LOC: HO.ED 08-06 06:50 → HO.EDOVER 08-06 07:42 → HO.S3 08-06 07:48
PROVIDERS: Obstetrics & Gynecology; Student in an Organized Health Care Education/Training Program; Urology; Admitting Provider Student in an Organized Health Care Education/Training Program; Emergency Provider Emergency Medicine; PCP Internal Medicine; Visit Provider Internal Medicine
PROC: 0TJB8ZZ Inspection of Bladder, Via Natural or Artificial Opening Endoscopic (ICD-10-PCS; CPT 52000; principal; 2023-08-11 09:40)
PROC: 0UBG7ZX Excision of Vagina, Via Natural or Artificial Opening, Diagnostic (ICD-10-PCS; 2023-08-11 09:40)
PROC: 037 Upper Arteries, Dilation (ICD-10-PCS; principal; 2023-08-12 12:30)
DX: C52 Malignant neoplasm of vagina (principal); J96.22 Acute and chronic respiratory failure with hypercapnia; N18.6 End stage renal disease; I13.2 Hypertensive heart and chronic kidney disease with heart failure and with stage 5 chronic kidney disease, or end stage renal disease; T82.848A Pain due to vascular prosthetic devices, implants and grafts, initial encounter; E87.1 Hypo-osmolality and hyponatremia; I50.32 Chronic diastolic (congestive) heart failure; J96.11 Chronic respiratory failure with hypoxia; Z66 Do not resuscitate; E66.01 Morbid (severe) obesity due to excess calories; Z68.36 Body mass index [BMI] 36.0-36.9, adult; E87.5 Hyperkalemia; I25.10 Atherosclerotic heart disease of native coronary artery without angina pectoris; Y82.8 Other medical devices associated with adverse incidents; D53.9 Nutritional anemia, unspecified; D63.1 Anemia in chronic kidney disease; E11.649 Type 2 diabetes mellitus with hypoglycemia without coma; E11.22 Type 2 diabetes mellitus with diabetic chronic kidney disease; Z99.2 Dependence on renal dialysis; Z20.822 Contact with and (suspected) exposure to COVID-19; Z99.81 Dependence on supplemental oxygen; Z87.891 Personal history of nicotine dependence; Z79.51 Long term (current) use of inhaled steroids; Z79.82 Long term (current) use of aspirin; Z79.899 Other long term (current) drug therapy
CPT/HCPCS: 36415; 36902; 71045; 72197; 80048; 80053; 81001; 82947; 83036; 85025; 85027; 85610; 87502; 87635; 88305; 88341; 88342; 90999; 92526; 92610; 93005; 94640; 99231; 99285; A9585; C1725; C1758; C1769; C1893; J0131; J0613; J0690; J1170; J1940; J2250; J2704; J2795; J3010

== ENCOUNTER → 2023-08-06 00:59 | Outpatient (BNV) | payer OTHER, SELFPAY | PROVIDERS: Admitting Provider Student in an Organized Health Care Education/Training Program; Emergency Provider Emergency Medicine; PCP Internal Medicine; Visit Provider Internal Medicine Cardiovascular Disease | DX: I44.0 Atrioventricular block, first degree (principal) | CPT/HCPCS: 93010 ==

== ENCOUNTER 2023-08-06 07:38 | Outpatient (BNV) | payer OTHER, SELFPAY | END 2023-08-12 08:00 | PROVIDERS: Admitting Provider Student in an Organized Health Care Education/Training Program; Emergency Provider Emergency Medicine; PCP Internal Medicine; Visit Provider Student in an Organized Health Care Education/Training Program | DX: N18.6 End stage renal disease (principal); Z99.2 Dependence on renal dialysis | CPT/HCPCS: 36902; 76937 ==

== ENCOUNTER → 2023-08-06 07:38 | Outpatient (BNV) | payer OTHER, SELFPAY | PROVIDERS: Admitting Provider Student in an Organized Health Care Education/Training Program; Emergency Provider Emergency Medicine; PCP Internal Medicine; Visit Provider Obstetrics & Gynecology | DX: N89.8 Other specified noninflammatory disorders of vagina (principal) | CPT/HCPCS: 57100; 99223 ==

== ENCOUNTER → 2023-08-06 07:38 | Outpatient (BNV) | payer OTHER, SELFPAY | PROVIDERS: Admitting Provider Student in an Organized Health Care Education/Training Program; Emergency Provider Emergency Medicine; PCP Internal Medicine; Visit Provider Urology | DX: C68.0 Malignant neoplasm of urethra (principal) | CPT/HCPCS: 52204; 99222 ==

== ENCOUNTER → 2023-08-06 07:38 | Outpatient (BNV) | payer OTHER, SELFPAY | PROVIDERS: Admitting Provider Student in an Organized Health Care Education/Training Program; Emergency Provider Emergency Medicine; PCP Internal Medicine; Visit Provider Student in an Organized Health Care Education/Training Program | DX: N18.6 End stage renal disease (principal); Z99.2 Dependence on renal dialysis; T82.9XXA Unspecified complication of cardiac and vascular prosthetic device, implant and graft, initial encounter; N93.9 Abnormal uterine and vaginal bleeding, unspecified; E87.5 Hyperkalemia; N89.8 Other specified noninflammatory disorders of vagina | CPT/HCPCS: 99223; 99232; 99233; 99238 ==

== ENCOUNTER 2023-09-07 10:59 | Inpatient (IN) | payer OTHER, SELFPAY ==
[2023-09-07] VITALS (20 sets, daily range): BP systolic 73–118; BP diastolic 13–91; PULSE 72–109; RESP 12–32; TEMP 36.1–39.6; O2SAT 91–100; BMI 36.5
--- NOTE | ~2023-09-07 | XR_ITS ---
EXAMINATION: XR CHEST CLINICAL INFORMATION: Hypoxia. COMPARISON: Chest radiograph earlier today at 12:36 PM. TECHNIQUE: Frontal view of the chest was obtained. FINDINGS: Evaluation is limited due to rotation and low lung volumes. Stable peripheral reticular opacities. Unchanged right lower lobe streaky opacities. No new focal airspace densities. No pleural effusion or pneumothorax. Stable prominence of the cardiomediastinal silhouette. Redemonstration of midline thoracic spinal neurostimulator. No acute osseous findings. XR/XR chest 1V IMPRESSION: No significant change compared to earlier today. Background of chronic interstitial lung disease/fibrosis.
--- NOTE | ~2023-09-07 | XR_ITS ---
EXAMINATION: XR CHEST CLINICAL INFORMATION: Shortness of breath. COMPARISON: Chest of 08/06/2023. TECHNIQUE: Frontal view of the chest was obtained. FINDINGS: Lung volumes are low. Limited evaluation of the cardiomediastinal silhouette and lungs due to patient rotation. There is no gross pneumothorax. Redemonstration of moderate bibasilar streaky opacities and diffuse bilateral interstitial opacities. Spinal leads noted overlying the lower thoracic spine. XR/XR chest 1V IMPRESSION: Redemonstration of moderate bibasilar streaky opacities and coarsening of the interstitium, possibly representing chronic interstitial lung disease/fibrosis with superimposed atelectasis. Superimposed pneumonia should also be considered. This study was presented today 09/07/2023 for interpretation. Stat results provided at this time as requested by referring provider.
--- NOTE | 2023-09-07 11:46 | ED.SOB ---
HPI - SOB/Dyspnea General Chief Complaint: Dyspnea Stated Complaint: SOB X3 DAYS PER EMS Time Seen by Provider: 09/07/23 11:41 Source: patient and RN notes reviewed Mode of arrival: ambulatory Limitations: no limitations History of Present Illness HPI Narrative: This is a 82-year-old female, with a history of HFpEF, ESRD needing dialysis, vaginal invasive melanoma, NSTEMI, respiratory failure with hypoxia, interstitial lung disease, depression, dyslipidemia, osteoarthritis, hypothyroidism, heart murmur, diabetes, and fibromyalgia, who presents to the emergency department with complaints of DOA starting this morning on her way to dialysis. Patient states that while she was EN route to her dialysis appointment, she suddenly developed sudden shortness of breath. She was a former smoker. Denies any fevers, chills, cough, chest pain, shortness for breath, abdominal pain, nausea, vomiting or diarrhea. MD elicited complaint: shortness of breath Pertinent past history: congestive heart failure and other Onset (ago): day(s) Known history of: congestive heart failure Associated symptoms: denies other symptoms Treatment prior to arrival: none Related Data Home oxygen amount: 2 liters Home Medications Medication Instructions Recorded Confirmed albuterol sulfate 90 mcg/actuation 2 puff inhalation Q4H PRN 12/28/22 09/07/23 aerosol inhaler Shortness Of Breath Or Wheezing famotidine 20 mg tablet 20 mg PO DAILY 12/28/22 09/07/23 levothyroxine 100 mcg tablet 100 mcg PO DAILY@0600 12/28/22 09/07/23 atorvastatin 20 mg tablet 20 mg PO BEDTIME 01/24/23 09/07/23 gabapentin 100 mg capsule 100 mg PO TID 05/04/23 09/07/23 sevelamer carbonate 0.8 gram oral 0.8 g PO TID 09/07/23 09/07/23 powder packet Previous Rx's Medication Instructions Recorded aspirin 81 mg tablet,delayed 81 mg PO DAILY #90 tabs 12/31/22 release metoprolol tartrate 25 mg tablet 12.5 mg (1/2 x 25 mg) PO BID #180 12/31/22 tabs nitroglycerin 0.4 mg sublingual 0.4 mg sublingual Q5M PRN chest 01/14/23 tablet pain #30 tabs ranolazine 500 mg tablet,extended 500 mg PO BID 90 days #180 tabs 01/14/23 release,12 hr furosemide 40 mg tablet 40 mg PO BID@0900,1800 #60 tabs 02/17/23 wheelchair with footrests #1 ea 03/25/23 blood pressure test kit-medium #1 ea 03/27/23 commode (bedside commode) #1 ea 03/27/23 grab bar for bathroom #2 ea 03/27/23 citalopram 20 mg tablet 20 mg PO DAILY #300 tabs 04/20/23 fluticasone fur. 100 mcg-umeclid 1 ea inhalation DAILY #60 ea 07/16/23 62.5 mcg-vilant 25 mcg inhalat.powder (Trelegy Ellipta) midodrine 5 mg tablet 5 mg PO TID 90 days #270 tabs 08/13/23 oxycodone 5 mg tablet 5 mg PO Q6H PRN moderate pain #20 08/14/23 tabs diaper,brief,adult,disposable #76 ea 08/23/23 (Depend Underwear For Women Large) disposable gloves (Disposable #100 ea 08/23/23 Latex-Free Gloves) Allergies Allergy/AdvReac Type Severity Reaction Status Date / Time NSAIDS (Non-Steroidal Allergy Unknown Verified 07/16/23 14:07 Anti-Inflamma [id number] Reductase AdvReac Severe LEG PAIN Verified 07/16/23 14:07 Inhibitor Review of Systems Review of Systems: Yes all other systems are reviewed and are negative Constitutional: Constitutional: Reports as per [facility] Past Medical History Attestation statement: The following information was validated with the patient. Medical History (Updated 09/08/23 @ 11:05 by Dandre Bennett MD) ESRD needing dialysis (HFpEF) heart failure with preserved ejection fraction NSTEMI (non-ST elevated myocardial infarction) Cough Respiratory failure with hypoxia Interstitial lung disease Depression, major, recurrent Dyslipidemia Osteoarthritis of multiple joints Acquired hypothyroidism Heart murmur Fibromyalgia Diabetes Surgical History Hx of tonsillectomy S/P appendectomy Hx of fusion of cervical spine S/P anal fissurectomy H/O hemorrhoidectomy S/P partial hysterectomy Family History Family History Brother Substance use disorder Son Substance use disorder Daughter Substance use disorder Social History Social History Household Members: Family Household Members Other:: Lives alone granddaughter lives in attached house Housing: Unknown / Unable to assess Do you presently have visiting nurse or other home services: No Unable to assess alcohol history related to: Unknown Alcohol intake: current Alcohol intake frequency: holidays/special occasions only Patient Tobacco Use Status: Former Tobacco user Quit Date: 15 years ago Tobacco use type: Cigarette Years Smoked: 20 +/- on and off Smoked in Last 30 Days: No e-Cigarette/Vaping Use: Former Use Patient Interested in Nicotine Replacement: No Patient Given Instructions on How to Stop Smoking: No Second Hand Smoke Exposure: No Use of substances other than those prescribed or required for medical reasons: No Currently Displaying Signs/Symptoms of Drug Intoxication Withdrawal: No Any prior treatment program specific to substance use: No Have you been hit, kicked, punched, or otherwise hurt by someone within the past year? If so, by whom?: No Do you feel safe in your current relationship?: No Current Relationship Is there a partner from a previous relationship who is making you feel unsafe now?: No Are you made to feel afraid or neglected: No [facility] Practices: none Advance Directives: Yes Advance Directives on File: Yes Advance Directives Date on File: 02/03/23 Do you have thoughts of harming others: None Do you have a plan to hurt others: No Plan Recently lost weight without trying: Unsure Eating poorly because of decreased appetite: No Nutrition Risks: On aspiration precautions Patient : No : No Poor oral hygiene: No service: No Current occupational status: retired Current occupation: right handed Cognitive needs: No Hearing needs: No Vision needs: Yes Physical Exam Vital Signs: Vital Signs: Last Vital Signs Temp 98.7 F 09/09/23 19:34 Pulse 76 09/09/23 19:34 Resp 21 H 09/09/23 19:34 BP 116/52 L 09/09/23 19:34 Pulse Ox 99 09/09/23 19:34 O2 Del Method Nasal Cannula 09/09/23 19:34 O2 Flow Rate 10 09/09/23 19:34 FiO2 55 09/09/23 09:00 Oxygen Flow Rate 4 09/07/23 11:23 BMI result Body Mass Index 36.5 Const: General: cooperative, comfortable and no acute distress Orientation/consciousness: patient oriented x3 Limitations: no limitations HEENT: Head: Yes normal to inspection, Yes normocephalic and Yes atraumatic Ears: hearing grossly normal bilaterally General nose exam: Normal external nose present Face and sinus: Yes normal facial exam Mouth: Normal oral and palatal mucosa present, oropharynx normal and moist mucous membranes Throat: Yes posterior oropharynx normal Eyes: General: appearance normal, both eyes and all related structures Eyelids: Yes eyelids normal Conjunctivae: conjunctivae normal Sclerae: sclerae normal Pupils: Equal, round and reactive pupils present EOM: EOMs intact bilaterally Neck: Neck: Yes normal visual inspection, Yes full ROM and Yes no lymphadenopathy Lymphatic: no lymphadenopathy noted Chest: Chest palpation & inspection: normal inspection of the chest Resp: Other: Speaking in 2-3 word sentences. Tight, Coarse crackles heard at bilateral lower lung bases Effort & Inspection: normal respiratory effort and not able to speak in complete sentences Cardio: Rate: regular rate Rhythm: regular rhythm Heart sounds: S1 normal heart sound present and S2 normal heart sound present GI: Inspection: Yes normal to inspection Skin: General skin exam: no rashes or lesions noted Trauma: no lacerations or abrasions Wounds: no wounds Neuro: General: patient oriented x3 and moves all extremities Cranial nerves: Yes Equal, round and reactive pupils present Extrem: General: Yes normal to inspection Right upper extremity: normal to inspection Left upper extremity: normal to inspection Right lower extremity: normal to inspection Left lower extremity: normal to inspection Course Reevaluation(s) Reevaluation #1: Message sent to Dr. Dumas who forwarded message to Dr. Bennett, covering district manager primary care sales regarding patient's case. Time: 12:41 Reevaluation #2: Chest x-ray returns, showing moderate bibasilar streaky opacities and coarsening of the interstitium, possibly representing chronic interstitial lung disease/fibrosis with some superimposed atelectasis. Superimposed pneumonia should also be considered. Given that she is afebrile, not tachycardic, pneumonia is less likely. This is likely CHF with CKD noted. Given co-morbidities and BP, Dr. Sánchez recommends speaking to fire control technician b. Pt blood pressures low at 84/47, placed on IV fluids at 250 cc an hour due to CHF and CKD. Spoke to Dr. Vicente, fire control technician b, recommending 2 bottles of albumin, midodrine 10mg, 1L LR, and Vancomycin IV. Time: 14:20 Reevaluation #3: Pt blood pressure 73/13, messaged Dr Vicente, levophed ordered. Transfer of care initiated. Medications Administered Generic Name Dose Route Start Last Admin Trade Name Freq PRN Reason Stop Dose Admin Albumin Human 100 mls @ 100 mls/hr 09/09/23 08:45 09/09/23 20:14 Kedbumin 25 % IV 09/10/23 03:44 100 mls/hr Q6H INGRID Administration Levothyroxine Sodium 100 mcg 09/08/23 06:00 09/09/23 05:01 Levothyroxine Sodium 100 Mcg Tablet PO 100 mcg DAILY@0600 [facility] Administration Midodrine 10 mg 09/07/23 21:00 09/09/23 20:14 Midodrine Hcl 10 Mg Tablet PO 10 mg TID INGRID Administration Oxycodone HCl 5 mg 09/08/23 19:50 09/09/23 10:53 Oxycodone Hcl Immed Release 5 Mg Tablet PO 5 mg Q6H PRN Administration Pain, Moderate(Pain Scale 4-6) Discontinued Medications Generic Name Dose Route Start Last Admin Trade Name Freq PRN Reason Stop Dose Admin Acetaminophen 650 mg 09/07/23 23:15 09/07/23 23:24 Acetaminophen Supp 650 Mg Supp.Rect SD 09/07/23 23:16 650 mg ONCE ONE Administration Albuterol Sulfate 2.5 mg 09/07/23 20:49 09/07/23 21:18 Albuterol Sulfate (0.083%) 2.5 Mg/3 Ml Vial.Neb INHALE 2.5 mg Q4H PRN Administration Shortness of Breath/Wheezing Albuterol Sulfate 7.5 mg 09/07/23 21:51 09/07/23 22:14 Albuterol Sulfate (0.083%) 2.5 Mg/3 Ml Vial.Neb INHALE 09/07/23 21:52 7.5 mg ONCE ONE Administration Albuterol Sulfate 2.5 mg/ 0 mg 09/07/23 12:15 09/07/23 12:17 Albuterol/Ipratropium 3 ml INHALE 09/07/23 12:16 1 dose ONCE ONE Administration Sodium Chloride 1,000 mls @ 250 mls/hr 09/07/23 13:42 09/07/23 18:10 Ns IV 09/07/23 17:41 Infused .Q4H ONE Infusion Albumin Human 100 mls @ 100 mls/hr 09/07/23 14:45 09/07/23 19:18 Kedbumin 25 % IV 09/07/23 16:44 Infused Q1H INGRID Infusion Lactated Ringer's 1,000 mls @ 999 mls/hr 09/07/23 14:40 09/07/23 17:01 Lr IV 09/07/23 15:40 Infused .Q1H1M ONE Infusion Vancomycin HCl 2,000 mg in 500 mls @ 250 mls/hr 09/07/23 14:41 09/07/23 19:34 Vancomycin/Ns IV 09/07/23 16:40 Infused ONCE ONE Infusion Norepinephrine Bitartrate 8 mg in 250 mls @ 0 mls/hr 09/07/23 15:15 09/09/23 16:20 Levophed IV Infused .Q0M INGRID Titration Protocol Per Protocol Dexmedetomidine HCl 400 mcg in 100 mls @ 0 mls/hr 09/07/23 22:15 09/08/23 15:35 Precedex IVCONT Infused .Q0M INGRID Titration Protocol Per Protocol Midazolam HCl 1 mg 09/08/23 13:53 09/08/23 15:34 Midazolam Hcl/Pf 2 Mg/2 Ml Vial IVPUSH 09/08/23 13:54 Not Given ONCE ONE Midodrine 10 mg 09/07/23 14:36 09/07/23 15:17 Midodrine Hcl 10 Mg Tablet PO 09/07/23 14:37 10 mg ONCE ONE Administration Morphine Sulfate 1 mg 09/07/23 21:27 09/07/23 21:36 Morphine Sulfate 2 Mg/Ml Cartridge IVPUSH 09/07/23 21:28 1 mg ONCE ONE Administration Protocol Medical Decision Making Medical Decision Making MDM Narrative: This is a 82-year-old female, with a history of HFpEF, ESRD needing dialysis, NSTEMI, respiratory failure with hypoxia, interstitial lung disease, depression, dyslipidemia, osteoarthritis, hypothyroidism, heart murmur, diabetes, and fibromyalgia, who presents to the emergency department for evaluation of acute onset shortness of breath which occurred just prior to arrival. On arrival, patient hypotensive at 101/25, repeat 84/47 with a MAP of 67. lungs with coarse crackles heard at bilateral lung bases, with 1+ pitting edema noted bilaterally. Differential diagnoses include acute CHF, pneumonia, bacteremia, acute respiratory failure, ACS. She has no chest pain. She is speaking in 2-3 word sentences. Currently saturating at 97% on 4L, typically on 2L at baseline. Pt was seen by my attending physician, Dr. Sánchez as well. Will obtain labs, cx, lactic acid Plan: Labs, EKG, chest x-ray. Due to patient's complex medical history, needing dialysis today, and clinically she appears to be in exacerbation of CHF, will closely monitor blood pressures, and with hold IV fluids at this time as this may cause deterioration and worsening CHF. Will continue to closely monitor Differential Diagnosis Differential Diagnoses: The differential diagnosis associated with the presentation includes See above Admission/Observation Consideration of admission/observation: Escalation of care including admission/observation considered Lab Data MDM Lab Attestation statement: I reviewed the patient's lab results. No leukocytosis, macrocytic anemia noted with an H&H of 8.4/25.9, potassium 5.5, creatinine 6.7, BUN 69, BNP 855, albumin 3.4 09/09/23 04:29 09/09/23 04:29 Labs: Lab Results 09/07/23 09/07/23 Range/Units 12:28 14:02 WBC 7.1 (4.8-10.8) X10*3/uL RBC 2.53 L (4.20-5.50) X10*6/uL Hgb 8.4 L (12.0-16.0) g/dl Hct 25.9 L (37.0-47.0) % MCV 102.4 H (80.0-98.0) fL MCH 33.2 H (27.0-33.0) pg MCHC 32.4 (31.0-35.0) g/dl RDW 14.7 (11.0-16.0) % Plt Count 175 D (160-400) X10*3/uL MPV 9.7 (9.4-12.3) fL Immature Gran % (Auto) 0.3 (0.0-0.4) % Neut % (Auto) 61.4 (45-73) % Lymph % (Auto) 21.7 (20-40) % [place] % (Auto) 9.3 (2-11) % Eos % (Auto) 7.0 H (0-4) % Baso % (Auto) 0.3 (0-2) % Lymph # (Auto) 1.5 (1.2-4.9) X10*3/uL [place] # (Auto) 0.7 (0.1-1.2) X10*3/uL Eos # (Auto) 0.5 H (0.0-0.4) X10*3/uL Baso # (Auto) 0.0 (0.0-0.2) X10*3/uL Abs Immat Gran (auto) 0.02 (0.00-0.03) X10*3/uL Absolute Neuts (auto) 4.4 (2.0-8.3) x10*3/uL Absolute Nucleated RBC 0.000 (0.0-0.012) X10*3/uL Nucleated RBC % (auto) 0.0 (0.0-0.2) /100WBC Sodium 136 (135-145) mmol/L Potassium 5.5 H (3.3-5.1) mmol/L Chloride 98 (96-108) mmol/L Carbon Dioxide 27 (22-29) mmol/L Anion Gap 17 (12-20) BUN 69 H (9-16) mg/dL Creatinine 6.70 H* (0.5-1.4) mg/dL Estim Creat Clear Calc 6.7 Estimated GFR 6 Random Glucose 83 (60-115) mg/dL Lactic Acid 1.0 (0.5-2.0) mmol/L Calcium 8.3 L D (8.4-10.2) mg/dL Magnesium 1.9 (1.6-2.6) mg/dL Total Bilirubin 0.4 (0.0-1.0) mg/dL Direct Bilirubin 0.2 (0.0-0.5) mg/dL AST 16 (5-31) U/L ALT 8 (0-31) U/L Alkaline Phosphatase 79 (39-117) U/L Troponin I High Sens 8.3 D (<3.5-17.0) ng/L B-Natriuretic Peptide 855 H (<100) pg/mL Total Protein 6.5 (6.5-8.0) g/dL Albumin 3.4 L (3.5-5.0) g/dL Lipase < 4 L (8-78) U/L COVID-19 (ISAAK) Negative (Negative) COVID-19 Clin Com See Note Influenza Type A (RORO) Negative (Negative) Influenza Type B ([facility]ORO) Negative (Negative) Influenza A & B Note See Note Independent Interpretation I performed an independent interpretation of an: EKG Interpretation: Normal sinus rhythm at a ventricular rate of 77 beats per minute, SD interval 196, QTC 443. Radiology Impression Discussion of test interpretation with radiology: I have reviewed the radiologist's reading. Radiologist Impression: EXAMINATION: XR CHEST CLINICAL INFORMATION: Shortness of breath. COMPARISON: Chest of 08/06/2023. TECHNIQUE: Frontal view of the chest was obtained. FINDINGS: Lung volumes are low. Limited evaluation of the cardiomediastinal silhouette and lungs due to patient rotation. There is no gross pneumothorax. Redemonstration of moderate bibasilar streaky opacities and diffuse bilateral interstitial opacities. Spinal leads noted overlying the lower thoracic spine. XR/XR chest 1V IMPRESSION: Redemonstration of moderate bibasilar streaky opacities and coarsening of the interstitium, possibly representing chronic interstitial lung disease/fibrosis with superimposed atelectasis. Superimposed pneumonia should also be considered. This study was presented today 09/07/2023 for interpretation. Stat results provided at this time as requested by referring provider. Dictated By: Dee Cason MD External Record Review External record reviewed: Inpatient record Chronic Conditions Patient?s care impacted by: Diabetes, Cancer and Other (CHF) Critical Care Time Critical Care Time Critical Care Time: Yes Total Critical Care Time: 60 Attestation: I have personally provided critical care time exclusive of time spent on separately billable procedures. Time includes review of lab data, radiology results, discussion with consultants, and monitoring for potential decompensation. Intervention performed as documented. Discharge Plan Discharge Clinical Impression: Hypotension, unspecified, Chronic kidney failure, Acute exacerbation of CHF (congestive heart failure) Patient Disposition: Admitted As Inpatient Interventions: Admission Worksheet (ED) Last Done: 09/07/23 16:15 Discharge Date/Time: 09/07/23 16:17
--- NOTE | 2023-09-07 11:54 | ECG_ITS ---
Test Reason : SOB Blood Pressure : / mmHG Vent. Rate : 077 BPM Atrial Rate : 077 BPM P-R Int : 196 ms QRS Dur : 090 ms QT Int : 392 ms P-R-T Axes : -01 081 000 degrees QTc Int : 443 ms Artifact in tracing Normal sinus rhythm Normal ECG When compared with ECG of 06-AUG-2023 01:19, Nonspecific T wave abnormality, worse in Inferior leads Referred By: Zeinab Phan Electronically Signed By:SANDRA AMBROCIO
[2023-09-07] MEDS: Albuterol Sulfate 2.5 MG, Albuterol/Iprat 2.5/0.5MG 3 ML 3 ML INHALE (12:17)
[2023-09-07 12:35] LABS: MANUAL DIFF FLAG NO
[2023-09-07 12:37] LABS: Basophils Percent Auto 0.3 % (0-2); Eosinophils Absolute Auto 0.5 X10*3/uL (0.0-0.4); Hematocrit 25.9 % (37.0-47.0); Hemoglobin 8.4 g/dl (12.0-16.0); Imm Gran Abs Auto 0.02 X10*3/uL (0.00-0.03); Imm Gran Pct Auto 0.3 % (0.0-0.4); Lymphocytes Absolute Auto 1.5 X10*3/uL (1.2-4.9); Lymphocytes Percent Auto 21.7 % (20-40); Mean Corpuscular HGB Conc 32.4 g/dl (31.0-35.0); Mean Corpuscular Hemoglobin 33.2 pg (27.0-33.0); Mean Corpuscular Volume 102.4 fL (80.0-98.0); Mean Platelet Volume 9.7 fL (9.4-12.3); Monocytes Absolute Auto 0.7 X10*3/uL (0.1-1.2); Monocytes Percent Auto 9.3 % (2-11); Neutrophils Absolute Auto 4.4 x10*3/uL (2.0-8.3); Neutrophils Percent Auto 61.4 % (45-73); Platelet Count 175 X10*3/uL (160-400); Red Blood Count 2.53 X10*6/uL (4.20-5.50); Red Cell Distribution Width 14.7 % (11.0-16.0); White Blood Count 7.1 X10*3/uL (4.8-10.8)
[2023-09-07 12:56] LABS: B Type Natriuretic Peptide 855 pg/mL (<100)
[2023-09-07 12:59] LABS: Troponin-I High Sensitivity 8.3 ng/L (<3.5-17.0)
[2023-09-07 13:25] LABS: Alanine Aminotransferase 8 U/L (0-31); Albumin Level 3.4 g/dL (3.5-5.0); Alkaline Phosphatase 79 U/L (39-117); Anion Gap 17 (12-20); Aspartate Amino Transferase 16 U/L (5-31); Bilirubin Direct 0.2 mg/dL (0.0-0.5); Bilirubin Total 0.4 mg/dL (0.0-1.0); Blood Urea Nitrogen 69 mg/dL (9-16); Calcium 8.3 mg/dL (8.4-10.2); Carbon Dioxide 27 mmol/L (22-29); Chloride 98 mmol/L (96-108); Creatinine Clr Calc Pharmacy 6.7; Estimated Glomerular Filt Rate 6; Glucose Random 83 mg/dL (60-115); Lipase < 4 U/L (8-78); Magnesium 1.9 mg/dL (1.6-2.6); Potassium 5.5 mmol/L (3.3-5.1); Sodium 136 mmol/L (135-145); Total Protein 6.5 g/dL (6.5-8.0)
[2023-09-07] MEDS: 0.9 % Sodium Chloride 1,000 ML 250 ML IV (14:15)
[2023-09-07 14:31] LABS: COVID-19 Test Negative (Negative); IDNOW Serial# 08D9AD1C; IDNOW Serial# 152EDE1D; Influenza A Negative (Negative); Influenza B2 Negative (Negative)
[2023-09-07] MEDS: Lactated Ringers 1,000 ML 999 ML IV (15:07)
[2023-09-07] MEDS: Midodrine HCl 10 MG TABLET PO (15:17)
--- NOTE | 2023-09-07 16:12 | P.HPCC_ITS ---
History of Present Illness Date of Service: 09/07/23 Chief Complaint: Dyspnea 82-year-old lady with underlying history of diastolic heart failure, ESRD on hemodialysis Thursday/Thursday/Thursday with RTANE, recent diagnosis of vaginal invasive melanoma being admitted for 1 day history of dyspnea and hypotension. Patient states that her normal blood pressure runs with systolic of 80-90. She was on the way to her hemodialysis the morning of admission, however she developed significant dyspnea and went to emergency room instead. In the emergency room patient noted to be an exacerbation of underlying diastolic congestive heart failure requiring hemodialysis, however the same time with very borderline blood pressures with poor response to initial volume resuscitation necessitating initiation of Levophed support and admission to the intensive care unit. Nephrology was consulted by emergency room provider for hemodialysis. Review of Systems 2 Constitutional: Constitutional: Denies daytime sleepiness, Denies excessive sweating, Denies fatigue, Denies fever(s), Denies lethargy, Denies malaise, Denies night sweats, Denies snoring and Denies weight loss Eyes: Eyes: Denies blurry vision and Denies itchy eyes ENT: Denies nasal congestion, Denies post nasal drip, Denies sinus pain, Denies sinus pressure and Denies other ( Thrush) Cardiovascular: Cardiovascular: Denies chest pain, Denies pedal edema, Reports dyspnea, Denies orthopnea and Denies paroxysmal nocturnal dyspnea Respiratory: Respiratory: Denies cough, Denies hemoptysis, Denies excessive phlegm production, Reports dyspnea, Denies snoring and Denies wheezing Gastrointestinal: Gastrointestinal: Denies abdominal pain and Denies heartburn Musculoskeletal: Musculoskeletal: Denies myalgias, Denies arthralgias and Denies joint swelling Integumentary/Breasts: Skin/Breast: Denies rash Neurologic: Denies memory loss and Denies seizure-like activity Psychiatric: Psychiatric: Denies abnormal sleep pattern, Denies anxiety and Denies memory loss Endocrine: Endocrine: Denies excessive sweating, Denies fatigue and Denies heat intolerance Hematologic/Lymphatic: Hematologic/Lymphatic: Denies easy bruising Allergic/Immunologic: Allergic/Immunologic: Denies itchy eyes, Denies seasonal rhinorrhea and Denies wheezing PMFSH Past Medical History Medical History ESRD needing dialysis (HFpEF) heart failure with preserved ejection fraction NSTEMI (non-ST elevated myocardial infarction) Cough Respiratory failure with hypoxia Interstitial lung disease Depression, major, recurrent Dyslipidemia Osteoarthritis of multiple joints Acquired hypothyroidism Heart murmur Fibromyalgia Diabetes Family History Family History Brother Substance use disorder Son Substance use disorder Daughter Substance use disorder Surgical History Surgical History Hx of tonsillectomy S/P appendectomy Hx of fusion of cervical spine S/P anal fissurectomy H/O hemorrhoidectomy S/P partial hysterectomy Social History Social History Household Members: None Household Members Other:: Lives alone granddaughter lives in attached house Housing: House Do you presently have visiting nurse or other home services: No Unable to assess alcohol history related to: Unknown Alcohol intake: current Alcohol intake frequency: holidays/special occasions only Patient Tobacco Use Status: Former Tobacco user Quit Date: 15 years ago Tobacco use type: Cigarette Years Smoked: 20 +/- on and off Smoked in Last 30 Days: No e-Cigarette/Vaping Use: Never Used Second Hand Smoke Exposure: No Use of substances other than those prescribed or required for medical reasons: No Advance Directives: Yes Advance Directives on File: Yes Advance Directives Date on File: 02/03/23 service: No Current occupational status: retired Current occupation: right handed Cognitive needs: No Hearing needs: No Vision needs: Yes Meds Allergies Allergy/AdvReac Type Severity Reaction Status Date / Time NSAIDS (Non-Steroidal Allergy Unknown Verified 07/16/23 14:07 Anti-Inflamma [id number] Reductase AdvReac Severe LEG PAIN Verified 07/16/23 14:07 Inhibitor Active Medications: Current Medications Sodium Chloride (Ns) 1,000 mls @ 250 mls/hr IV .Q4H ONE Stop: 09/07/23 17:41 Last Infusion: 09/07/23 15:05 Dose: 0 mls/hr Albumin Human (Kedbumin 25 %) 100 mls @ 100 mls/hr IV Q1H INGRID Stop: 09/07/23 16:44 Vancomycin HCl (Vancomycin/Ns) 2,000 mg in 500 mls @ 250 mls/hr IV ONCE ONE Stop: 09/07/23 16:40 Norepinephrine Bitartrate (Levophed) 8 mg in 250 mls @ 0 mls/hr IV .Q0M INGRID; Protocol Home Medications Medication Instructions Recorded Confirmed Last Taken Type albuterol sulfate 90 mcg/actuation 2 puff inhalation Q4H PRN 12/28/22 08/06/23 Unknown History aerosol inhaler Shortness Of Breath Or Wheezing famotidine 20 mg tablet 20 mg PO DAILY 12/28/22 08/06/23 08/05/23 History levothyroxine 100 mcg tablet 100 mcg PO DAILY@0600 12/28/22 08/06/23 08/05/23 History atorvastatin 20 mg tablet 20 mg PO BEDTIME 01/24/23 08/06/23 08/05/23 History gabapentin 100 mg capsule 100 mg PO TID 05/04/23 08/06/23 08/05/23 History Physical Exam 2 Vital Signs: Vital Signs: Last Vital Signs Temp 99.5 F 09/07/23 15:12 Pulse 85 09/07/23 15:12 Resp 15 09/07/23 15:12 BP 73/13 L 09/07/23 15:12 Pulse Ox 91 L 09/07/23 15:12 O2 Del Method Nasal Cannula 09/07/23 14:12 O2 Flow Rate 4 09/07/23 14:12 Oxygen Flow Rate 4 09/07/23 11:23 BMI result Body Mass Index 36.5 Const: General: no acute distress and alert Nutritional Appearance: obese Orientation/consciousness: Other orientation findings ( oriented) HEENT: Head: Yes atraumatic Eyes: General: appearance normal, both eyes and all related structures S clerae: sclerae normal EOM: EOMs intact bilaterally Neck: Neck: Yes supple Lymphatic: no lymphadenopathy noted Resp: Effort & Inspection: normal respiratory effort and no use of accessory muscles Auscultation: clear to auscultation bilaterally Cardio: Rate: regular rate Rhythm: regular rhythm Heart sounds: no gallops, no murmurs and no rubs Skin: General skin exam: other ( warm) Extrem: General: No clubbing, No cyanosis and No edema Results Labs 09/07/23 12:28 09/07/23 12:28 Labs: Laboratory Results - last 24 hr 09/07/23 09/07/23 12:28 14:02 MCV 102.4 H MCH 33.2 H MCHC 32.4 RDW 14.7 Plt Count 175 D MPV 9.7 Immature Gran % (Auto) 0.3 Neut % (Auto) 61.4 Lymph % (Auto) 21.7 [place] % (Auto) 9.3 Eos % (Auto) 7.0 H Baso % (Auto) 0.3 Lymph # (Auto) 1.5 [place] # (Auto) 0.7 Eos # (Auto) 0.5 H Baso # (Auto) 0.0 Abs Immat Gran (auto) 0.02 Absolute Neuts (auto) 4.4 Absolute Nucleated RBC 0.000 Nucleated RBC % (auto) 0.0 Anion Gap 17 Estim Creat Clear Calc 6.7 Estimated GFR 6 Random Glucose 83 Lactic Acid 1.0 Calcium 8.3 L D Magnesium 1.9 Total Bilirubin 0.4 Direct Bilirubin 0.2 AST 16 ALT 8 Alkaline Phosphatase 79 Troponin I High Sens 8.3 D B-Natriuretic Peptide 855 H Total Protein 6.5 Albumin 3.4 L Lipase < 4 L COVID-19 (ISAAK) Negative COVID-19 Clin Com See Note Influenza Type A (RORO) Negative Influenza Type B (RORO) Negative Influenza A & B Note See Note Imaging Radiologist's Impressions: Impressions Chest X-Ray 09/07/23 12:50 IMPRESSION: Redemonstration of moderate bibasilar streaky opacities and coarsening of the interstitium, possibly representing chronic interstitial lung disease/fibrosis with superimposed atelectasis. Superimposed pneumonia should also be considered. This study was presented today 09/07/2023 for interpretation. Stat results provided at this time as requested by referring provider. Assessment and Plan (1) Acute exacerbation of CHF (congestive heart failure): Status: Acute (2) ESRD needing dialysis: Status: Acute (3) Vaginal melanoma: Status: Acute (4) Hypotension, unspecified: Status: Acute Plan Assessment: 82-year-old lady with underlying ESRD on hemodialysis being admitted with exacerbation of underlying chronic diastolic congestive heart failure and hypotension Plan: Neuro: No acute issues. Cardiac: Acute on chronic diastolic congestive heart failure. Expect to improve with hemodialysis. Hypotension, appears to be chronic poor response to IV fluids/albumin. Continue to titrate off Levophed support as tolerated. Pulmonary: Acute hypoxic respiratory failure secondary to exacerbation of underlying chronic diastolic congestive heart failure, continue to titrate off supplemental oxygen as tolerated. Renal: No acute issues. Underlying ESRD on hemodialysis. Nephrology service care appreciated. Plan for hemodialysis today. Endo: No acute issues. GI: No acute issues. ID: No acute issues Heme/Onc: No acute issues. Psych: No acute issues. Miscellaneous: No acute issues. Prophylaxis: Heparin Diet: Cardiac Critical care time spent: 60 minutes
[2023-09-07] MEDS: Albumin Human 25 % 100 ML IV ×2 (17:21→18:10)
[2023-09-07] MEDS: vancomycin/NS 2,000 MG/500 ML PLAST..BAG 250 MG IV (17:24)
[2023-09-07 18:40] LABS: Venous Blood Gas Refer to POC result
[2023-09-07 18:41] LABS: VBG Base Excess 2.1 mmol/L; VBG HCO3 24 mmol/L (22-26); VBG pCO2 29 mmHg; VBG pH 7.52 (7.32-7.43); VBG pO2 87 mmHg
[2023-09-07 18:56] LABS: Alanine Aminotransferase 5 U/L (0-31); Albumin Level 3.4 g/dL (3.5-5.0); Alkaline Phosphatase 65 U/L (39-117); Anion Gap 18 (12-20); Aspartate Amino Transferase 12 U/L (5-31); Bilirubin Total 0.4 mg/dL (0.0-1.0); Blood Urea Nitrogen 67 mg/dL (9-16); Calcium 8.1 mg/dL (8.4-10.2); Carbon Dioxide 23 mmol/L (22-29); Chloride 101 mmol/L (96-108); Creatinine Clr Calc Pharmacy 6.8; Estimated Glomerular Filt Rate 6; Glucose Random 86 mg/dL (60-115); Potassium 5.3 mmol/L (3.3-5.1); Sodium 137 mmol/L (135-145); Total Protein 5.9 g/dL (6.5-8.0)
[2023-09-07] MEDS: Albuterol Sulfate (0.083%) 2.5 MG/3 ML VIAL.NEB INHALE (21:18)
[2023-09-07] MEDS: Morphine Sulfate 2 MG/ML CARTRIDGE 1 MG IVPUSH (21:36)
[2023-09-07] MEDS: dexmedeTOMIDidine HCL/NS 400 MCG/100 ML INFUS..BTL 23.38 MCG IVCONT (22:00)
[2023-09-07] MEDS: Norepinephrine Bitartrate/D5W 8 MG/250 ML PLAST..BAG 8.77 MG IV (22:11)
[2023-09-07] MEDS: Albuterol Sulfate (0.083%) 2.5 MG/3 ML VIAL.NEB 7.5 MG INHALE (22:14)
--- NOTE | 2023-09-07 22:16 | PHA.MEDREC ---
Pharmacy Consult ? Medication Reconciliation Pharmacy has completed the medication reconciliation. USED CLAIM HISTORY AND DISCHARGE SUMMARY FROM THIS MONTH TO COMPLETE MED REC.
--- NOTE | 2023-09-07 22:26 | PM.CCN ---
Critical Care Event Note Summary Date of Service: 09/07/23 Code activated: No Narrative: This case had a high probability of a clinically significant, sudden, or life threatening deterioration of this patient's condition which required my full and direct attention, intervention and personal management. Critical Care Time (minutes): 60 Comment: The patient, currently receiving hemodialysis, became tachypneic, hypoxic, tachycardic, very anxious. Lung sounds diminished throughout with coarse expiratory wheezes. O2 sat low to mid 80?s.She was given albuterol, placed on Hi-Jagdish O2 50L/50% with minimal effect. She was placed on BiPap / with 60% FiO2 with improvement to her work of breathing and O2 sat to 93%. She remained anxious and was started on a Precedex gtt. VBG and CXR ordered.
[2023-09-07 23:05] LABS: VBG Base Excess 6.1 mmol/L; VBG HCO3 28 mmol/L (22-26); VBG pCO2 34 mmHg; VBG pH 7.53 (7.32-7.43); VBG pO2 74 mmHg
[2023-09-07 23:20] LABS: MANUAL DIFF FLAG NO
[2023-09-07 23:21] LABS: Basophils Percent Auto 0.1 % (0-2); Eosinophils Absolute Auto 0.2 X10*3/uL (0.0-0.4); Eosinophils Percent Auto 2.4 % (0-4); Hemoglobin 8.3 g/dl (12.0-16.0); Imm Gran Abs Auto 0.05 X10*3/uL (0.00-0.03); Imm Gran Pct Auto 0.5 % (0.0-0.4); Lymphocytes Absolute Auto 1.2 X10*3/uL (1.2-4.9); Lymphocytes Percent Auto 11.9 % (20-40); Mean Corpuscular HGB Conc 33.2 g/dl (31.0-35.0); Mean Corpuscular Hemoglobin 32.9 pg (27.0-33.0); Mean Corpuscular Volume 99.2 fL (80.0-98.0); Mean Platelet Volume 9.9 fL (9.4-12.3); Monocytes Absolute Auto 0.6 X10*3/uL (0.1-1.2); Monocytes Percent Auto 5.5 % (2-11); Neutrophils Percent Auto 79.6 % (45-73); Platelet Count 179 X10*3/uL (160-400); Red Blood Count 2.52 X10*6/uL (4.20-5.50); Red Cell Distribution Width 14.6 % (11.0-16.0); White Blood Count 10.1 X10*3/uL (4.8-10.8)
[2023-09-07] MEDS: Acetaminophen Supp 650 MG SUPP.RECT PR (23:24)
[2023-09-08] VITALS (46 sets, daily range): BP systolic 69–188; BP diastolic 21–86; PULSE 71–96; RESP 14–221; TEMP 36.3–38.1; O2SAT 88–100; BMI 36.3
[2023-09-08 00:09] LABS: Venous Blood Gas Refer to POC result
[2023-09-08 00:15] LABS: Anion Gap 17 (12-20); Blood Urea Nitrogen 36 mg/dL (9-16); Calcium 8.8 mg/dL (8.4-10.2); Carbon Dioxide 27 mmol/L (22-29); Chloride 98 mmol/L (96-108); Creatinine Clr Calc Pharmacy 10.5; Estimated Glomerular Filt Rate 10; Glucose Random 104 mg/dL (60-115); Potassium 4.4 mmol/L (3.3-5.1); Sodium 138 mmol/L (135-145)
[2023-09-08 00:16] LABS: Lactic Acid 2.7 mmol/L (0.5-2.0)
[2023-09-08 01:52] LABS: Reflex Lactate? Lactic Acid Added
[2023-09-08] MEDS: dexmedeTOMIDidine HCL/NS 400 MCG/100 ML INFUS..BTL 14.03 MCG IVCONT ×2 (02:23→11:04)
[2023-09-08 02:51] LABS: ~Lactic Acid-LAB USE ONLY 1.7 mmol/L (0.5-2.0)
[2023-09-08 04:31] LABS: VBG Base Excess 7.5 mmol/L; VBG HCO3 30 mmol/L (22-26); VBG pCO2 36 mmHg; VBG pH 7.52 (7.32-7.43); VBG pO2 48 mmHg
[2023-09-08 04:47] LABS: MANUAL DIFF FLAG NO
[2023-09-08 04:50] LABS: Basophils Percent Auto 0.3 % (0-2); Eosinophils Percent Auto 0.5 % (0-4); Hematocrit 27.3 % (37.0-47.0); Hemoglobin 8.7 g/dl (12.0-16.0); Imm Gran Abs Auto 0.05 X10*3/uL (0.00-0.03); Imm Gran Pct Auto 0.6 % (0.0-0.4); Lymphocytes Absolute Auto 0.7 X10*3/uL (1.2-4.9); Lymphocytes Percent Auto 8.5 % (20-40); Mean Corpuscular HGB Conc 31.9 g/dl (31.0-35.0); Mean Corpuscular Hemoglobin 32.7 pg (27.0-33.0); Mean Corpuscular Volume 102.6 fL (80.0-98.0); Mean Platelet Volume 10.3 fL (9.4-12.3); Monocytes Absolute Auto 0.6 X10*3/uL (0.1-1.2); Monocytes Percent Auto 7.1 % (2-11); Neutrophils Absolute Auto 6.6 x10*3/uL (2.0-8.3); Platelet Count 172 X10*3/uL (160-400); Red Blood Count 2.66 X10*6/uL (4.20-5.50); Red Cell Distribution Width 14.6 % (11.0-16.0)
[2023-09-08 05:20] LABS: Alanine Aminotransferase 8 U/L (0-31); Albumin Level 3.9 g/dL (3.5-5.0); Alkaline Phosphatase 75 U/L (39-117); Anion Gap 21 (12-20); Aspartate Amino Transferase 16 U/L (5-31); Bilirubin Total 0.6 mg/dL (0.0-1.0); Blood Urea Nitrogen 42 mg/dL (9-16); Calcium 8.6 mg/dL (8.4-10.2); Carbon Dioxide 25 mmol/L (22-29); Chloride 98 mmol/L (96-108); Creatinine Clr Calc Pharmacy 9.1; Estimated Glomerular Filt Rate 8; Glucose Random 151 mg/dL (60-115); Magnesium 1.8 mg/dL (1.6-2.6); Phosphorus 4.9 mg/dL (2.7-4.5); Potassium 4.9 mmol/L (3.3-5.1); Sodium 139 mmol/L (135-145); Total Protein 6.7 g/dL (6.5-8.0)
[2023-09-08 05:24] LABS: Venous Blood Gas Refer to POC result
--- NOTE | 2023-09-08 10:10 | P.PNCC_ITS ---
Subjective Subjective Date of Service: 09/08/23 Interval History: 82-year-old lady with underlying history of diastolic heart failure, ESRD on hemodialysis Thursday/Thursday/Thursday with RTANE, recent diagnosis of vaginal invasive melanoma being admitted for 1 day history of dyspnea and hypotension. Patient states that her normal blood pressure runs with systolic of 80-90. She was on the way to her hemodialysis the morning of admission, however she developed significant dyspnea and went to emergency room instead. In the emergency room patient noted to be an exacerbation of underlying diastolic congestive heart failure requiring hemodialysis, however the same time with very borderline blood pressures with poor response to initial volume resuscitation necessitating initiation of Levophed support and admission to the intensive care unit. Nephrology was consulted by emergency room provider for hemodialysis. Patient had initial 2 0 hemodialysis session 09/07/2023 with improvement and hyperkalemia, but still significant hypoxia requiring BiPAP support. Overnight on BiPAP support and with intermittent agitation requiring Precedex drip. Critical Care Time (minutes): 60 Physical Exam 2 Vital Signs: Vital Signs: Last Vital Signs Temp 99.6 F 09/08/23 08:00 Pulse 81 09/08/23 10:09 Resp 15 09/08/23 10:00 BP 90/33 L 09/08/23 10:09 Pulse Ox 92 09/08/23 10:00 O2 Del Method BiPAP 09/08/23 10:00 O2 Flow Rate 40 09/08/23 03:00 FiO2 40 09/08/23 10:00 Oxygen Flow Rate 4 09/07/23 15:11 BMI result Body Mass Index 36.3 Const: General: no acute distress and confusion Nutritional Appearance: o bese Orientation/consciousness: confusion Eyes: Sclerae: sclerae normal EOM: EOMs intact bilaterally Neck: Neck: Yes no lymphadenopathy, Yes trachea midline and Yes supple Resp: Effort & Inspection: normal respiratory effort and no respiratory distress Auscultation: clear to auscultation bilaterally Cardio: Rate: regular rate Rhythm: regular rhythm Heart sounds: no gallops, no murmurs and no rubs GI: Palpation (GI): Soft to palpation and Other GI palpation findings present ( Nontender) Auscultation: normal bowel sounds Neuro: General: confusion Extrem: General: Yes no pedal edema, No clubbing and No cyanosis Objective Data Labs 09/08/23 04:23 09/08/23 04:23 Labs: Laboratory Results - last 24 hr 09/07/23 09/07/23 09/07/23 12:28 14:02 18:28 WBC 7.1 RBC 2.53 L Hgb 8.4 L Hct 25.9 L MCV 102.4 H MCH 33.2 H MCHC 32.4 RDW 14.7 Plt Count 175 D MPV 9.7 Immature Gran % (Auto) 0.3 Neut % (Auto) 61.4 Lymph % (Auto) 21.7 [place] % (Auto) 9.3 Eos % (Auto) 7.0 H Baso % (Auto) 0.3 Lymph # (Auto) 1.5 [place] # (Auto) 0.7 Eos # (Auto) 0.5 H Baso # (Auto) 0.0 Abs Immat Gran (auto) 0.02 Absolute Neuts (auto) 4.4 Absolute Nucleated RBC 0.000 Nucleated RBC % (auto) 0.0 VBG pH VBG pCO2 VBG pO2 VBG HCO3 VBG O2 Saturation VBG Base Excess Sodium 136 137 Potassium 5.5 H 5.3 H Chloride 98 101 Carbon Dioxide 27 23 Anion Gap 17 18 BUN 69 H 67 H Creatinine 6.70 H* 6.63 H* Estim Creat Clear Calc 6.7 6.8 Estimated GFR 6 6 Random Glucose 83 86 Lactic Acid 1.0 Lactic Acid F/U @ 2Hr Calcium 8.3 L D 8.1 L Phosphorus Magnesium 1.9 Total Bilirubin 0.4 0.4 Direct Bilirubin 0.2 AST 16 12 ALT 8 5 Alkaline Phosphatase 79 65 Troponin I High Sens 8.3 D B-Natriuretic Peptide 855 H Total Protein 6.5 5.9 L Albumin 3.4 L 3.4 L Lipase < 4 L COVID-19 ([facility]AAK) Negative COVID-19 Clin Com See Note Influenza Type A (RORO) Negative Influenza Type B (RORO) Negative Influenza A & B Note See Note 09/07/23 09/07/23 09/07/23 18:35 22:58 22:59 WBC 10.1 RBC 2.52 L Hgb 8.3 L Hct 25.0 L MCV 99.2 H MCH 32.9 MCHC 33.2 RDW 14.6 Plt Count 179 MPV 9.9 Immature Gran % (Auto) 0.5 H Neut % (Auto) 79.6 H Lymph % (Auto) 11.9 L [place] % (Auto) 5.5 Eos % (Auto) 2.4 Baso % (Auto) 0.1 Lymph # (Auto) 1.2 [place] # (Auto) 0.6 Eos # (Auto) 0.2 Baso # (Auto) 0.0 Abs Immat Gran (auto) 0.05 H Absolute Neuts (auto) 8.0 Absolute Nucleated RBC 0.000 Nucleated RBC % (auto) 0.0 VBG pH 7.52 H 7.53 H VBG pCO2 29 34 VBG pO2 87 74 VBG HCO3 24 28 H VBG O2 Saturation 99.0 96.0 VBG Base Excess 2.1 6.1 Sodium 138 Potassium 4.4 Chloride 98 Carbon Dioxide 27 Anion Gap 17 BUN 36 H Creatinine 4.34 H* Estim Creat Clear Calc 10.5 Estimated GFR 10 Random Glucose 104 Lactic Acid Lactic Acid F/U @ 2Hr Calcium 8.8 D Phosphorus Magnesium Total Bilirubin Direct Bilirubin AST ALT Alkaline Phosphatase Troponin I High Sens B-Natriuretic Peptide Total Protein Albumin Lipase COVID-19 (ISAAK) COVID-19 Clin Com Influenza Type A (RORO) Influenza Type B (RORO) Influenza A & B Note 09/07/23 09/08/23 09/08/23 23:49 02:23 04:23 WBC 8.0 RBC 2.66 L Hgb 8.7 L Hct 27.3 L MCV 102.6 H MCH 32.7 MCHC 31.9 RDW 14.6 Plt Count 172 MPV 10.3 Immature Gran % (Auto) 0.6 H Neut % (Auto) 83.0 H Lymph % (Auto) 8.5 L [place] % (Auto) 7.1 Eos % (Auto) 0.5 Baso % (Auto) 0.3 Lymph # (Auto) 0.7 L [place] # (Auto) 0.6 Eos # (Auto) 0.0 Baso # (Auto) 0.0 Abs Immat Gran (auto) 0.05 H Absolute Neuts (auto) 6.6 Absolute Nucleated RBC 0.000 Nucleated RBC % (auto) 0.0 VBG pH VBG pCO2 VBG pO2 VBG HCO3 VBG O2 Saturation VBG Base Excess Sodium 139 Potassium 4.9 Chloride 98 Carbon Dioxide 25 Anion Gap 21 H BUN 42 H Creatinine 4.98 H* Estim Creat Clear Calc 9.1 Estimated GFR 8 Random Glucose 151 H Lactic Acid 2.7 H* Lactic Acid F/U @ 2Hr 1.7 Calcium 8.6 Phosphorus 4.9 H Magnesium 1.8 Total Bilirubin 0.6 Direct Bilirubin AST 16 ALT 8 Alkaline Phosphatase 75 Troponin I High Sens B-Natriuretic Peptide Total Protein 6.7 Albumin 3.9 Lipase COVID-19 (ISAAK) COVID-19 Clin Com Influenza Type A (RORO) Influenza Type B (RORO) Influenza A & B Note 09/08/23 04:24 WBC RBC Hgb Hct MCV MCH MCHC RDW Plt Count MPV Immature Gran % (Auto) Neut % (Auto) Lymph % (Auto) [place] % (Auto) Eos % (Auto) Baso % (Auto) Lymph # (Auto) [place] # (Auto) Eos # (Auto) Baso # (Auto) Abs Immat Gran (auto) Absolute Neuts (auto) Absolute Nucleated RBC Nucleated RBC % (auto) VBG pH 7.52 H VBG pCO2 36 VBG pO2 48 VBG HCO3 30 H VBG O2 Saturation 82.0 VBG Base Excess 7.5 Sodium Potassium Chloride Carbon Dioxide Anion Gap BUN Creatinine Estim Creat Clear Calc Estimated GFR Random Glucose Lactic Acid Lactic Acid F/U @ 2Hr Calcium Phosphorus Magnesium Total Bilirubin Direct Bilirubin AST ALT Alkaline Phosphatase Troponin I High Sens B-Natriuretic Peptide Total Protein Albumin Lipase COVID-19 (ISAAK) COVID-19 Clin Com Influenza Type A (RORO) Influenza Type B (RORO) Influenza A & B Note Progress Note: A&P Assessment and plan (1) Metabolic encephalopathy: Status: Acute (2) Vaginal melanoma: Status: Acute (3) Metastatic melanoma: Status: Acute (4) Acute exacerbation of CHF (congestive heart failure): Status: Acute (5) ESRD needing dialysis: Status: Acute Plan Assessment: 82-year-old lady with underlying ESRD on hemodialysis being admitted with exacerbation of underlying chronic diastolic congestive heart failure and hypotension Plan: Neuro: Encephalopathy, likely metabolic. However, if not improving after dialysis, will consider MRI brain secondary to underlying history of metastatic melanoma. Cardiac: Acute on chronic diastolic congestive heart failure. Expect to improve with hemodialysis. Hypotension, appears to be chronic and with poor response to IV fluids/albumin. Continue to titrate off Levophed support as tolerated. Pulmonary: Acute hypoxic respiratory failure secondary to exacerbation of underlying chronic diastolic congestive heart failure, continue to titrate off BiPAP as tolerated. Renal: No acute issues. Underlying ESRD on hemodialysis. Nephrology service care appreciated. Continue hemodialysis support. Endo: No acute issues. GI: No acute issues. ID: No acute issues Heme/Onc: No acute issues. Psych: No acute issues. Miscellaneous: No acute issues. Prophylaxis: Heparin Diet: Cardiac Critical care time spent: 60 minutes Quality Stroke Does the patient have a stroke diagnosis?: No VTE Prior VTE?: No VTE Risk Level:: Medical - moderate - high VTE Device Contraindication: Treatment Not Indicated VTE Drug Contraindication: N/A - Med Ordered
--- NOTE | 2023-09-08 11:01 | P.CONNP_ITS ---
History of Present Illness Reason for Consult Consult date: 09/08/23 Chief Complaint Chief complaint: dyspnea History of Present Illness Narrative: 82-year-old lady with history of ESRD on hemodialysis admitted for 1 day history of dyspnea and hypotension. 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 She was on the way to her hemodialysis the morning of admission, however she developed significant dyspnea and went to emergency room instead. She had a 2 hour hemodialysis session 09/07/2023. Review of Systems Review of Systems 10 points ROS negative except for pertinent in HPI [facility] Past Medical History Medical History (Updated 09/08/23 @ 11:05 by Dandre Bennett MD) ESRD needing dialysis (HFpEF) heart failure with preserved ejection fraction NSTEMI (non-ST elevated myocardial infarction) Cough Respiratory failure with hypoxia Interstitial lung disease Depression, major, recurrent Dyslipidemia Osteoarthritis of multiple joints Acquired hypothyroidism Heart murmur Fibromyalgia Diabetes Family History Family History Brother Substance use disorder Son Substance use disorder Daughter Substance use disorder Surgical History Surgical History Hx of tonsillectomy S/P appendectomy Hx of fusion of cervical spine S/P anal fissurectomy H/O hemorrhoidectomy S/P partial hysterectomy Social History Social History Household Members: Family Household Members Other:: Lives alone granddaughter lives in attached house Housing: Unknown / Unable to assess Do you presently have visiting nurse or other home services: No Unable to assess alcohol history related to: Unknown Alcohol intake: current Alcohol intake frequency: holidays/special occasions only Patient Tobacco Use Status: Former Tobacco user Quit Date: 15 years ago Tobacco use type: Cigarette Years Smoked: 20 +/- on and off Smoked in Last 30 Days: No e-Cigarette/Vaping Use: Former Use Patient Interested in Nicotine Replacement: No Patient Given Instructions on How to Stop Smoking: No Second Hand Smoke Exposure: No Use of substances other than those prescribed or required for medical reasons: No Currently Displaying Signs/Symptoms of Drug Intoxication Withdrawal: No Any prior treatment program specific to substance use: No Have you been hit, kicked, punched, or otherwise hurt by someone within the past year? If so, by whom?: No Do you feel safe in your current relationship?: No Current Relationship Is there a partner from a previous relationship who is making you feel unsafe now?: No Are you made to feel afraid or neglected: No Hinduism Healthcare Practices: none Advance Directives: Yes Advance Directives on File: Yes Advance Directives Date on File: 02/03/23 Do you have thoughts of harming others: None Do you have a plan to hurt others: No Plan Recently lost weight without trying: Unsure Eating poorly because of decreased appetite: No Nutrition Risks: On aspiration precautions Patient : No : No Poor oral hygiene: No service: No Current occupational status: retired Current occupation: right handed Cognitive needs: No Hearing needs: No Vision needs: Yes Meds Allergies Allergy/AdvReac Type Severity Reaction Status Date / Time NSAIDS (Non-Steroidal Allergy Unknown Verified 07/16/23 14:07 Anti-Inflamma [id number] Reductase AdvReac Severe LEG PAIN Verified 07/16/23 14:07 Inhibitor Active Medications: Current Medications Norepinephrine Bitartrate (Levophed) 8 mg in 250 mls @ 0 mls/hr IV .Q0M [facility]; Protocol Last Titration: 09/08/23 10:09 Dose: 0.09 mcg/kg/min, 15.78 mls/hr Levothyroxine Sodium (Levothyroxine Sodium 100 Mcg Tablet) 100 mcg PO DAILY@0600 [facility] Last Admin: 09/08/23 06:26 Dose: Not Given Midodrine (Midodrine Hcl 10 Mg Tablet) 10 mg PO TID [facility] Last Admin: 09/07/23 21:36 Dose: Not Given Home Medications Medication Instructions Recorded Confirmed Last Taken Type albuterol sulfate 90 mcg/actuation 2 puff inhalation Q4H PRN 12/28/22 09/07/23 Unknown History aerosol inhaler Shortness Of Breath Or Wheezing famotidine 20 mg tablet 20 mg PO DAILY 12/28/22 09/07/23 08/05/23 History levothyroxine 100 mcg tablet 100 mcg PO DAILY@0600 12/28/22 09/07/23 08/05/23 History atorvastatin 20 mg tablet 20 mg PO BEDTIME 01/24/23 09/07/23 08/05/23 History gabapentin 100 mg capsule 100 mg PO TID 05/04/23 09/07/23 08/05/23 History sevelamer carbonate 0.8 gram oral 0.8 g PO TID 09/07/23 09/07/23 Unknown History powder packet Physical Exam Vital Signs: Last Vital Signs Temp 99.6 F 09/08/23 08:00 Pulse 81 09/08/23 10:09 Resp 24 H 09/08/23 10:36 BP 90/33 L 09/08/23 10:09 Pulse Ox 92 09/08/23 10:00 O2 Del Method BiPAP 09/08/23 10:00 O2 Flow Rate 40 09/08/23 03:00 FiO2 40 09/08/23 10:00 Oxygen Flow Rate 4 09/07/23 15:11 BMI result Body Mass Index 36.3 Const General: alert and awake HEENT Head: Yes normocephalic and Yes atraumatic Neck Neck: Yes supple Resp Auscultation: diminished lung sounds Cardio Heart sounds: S1 normal heart sound present and S2 normal heart sound present GI Palpation (GI): Soft to palpation and nontender Extrem Left upper extremity: edema Results Lab Results 09/08/23 04:23 09/08/23 04:23 Lab results: Chemistry 09/07/23 09/07/23 09/07/23 12:28 18:28 22:59 Sodium 136 137 138 Potassium 5.5 H 5.3 H 4.4 Carbon Dioxide 27 23 27 BUN 69 H 67 H 36 H Creatinine 6.70 H* 6.63 H* 4.34 H* Calcium 8.3 L D 8.1 L 8.8 D Phosphorus 09/08/23 04:23 Sodium 139 Potassium 4.9 Carbon Dioxide 25 BUN 42 H Creatinine 4.98 H* Calcium 8.6 Phosphorus 4.9 H Hematology 09/07/23 09/07/23 09/08/23 12:28 22:59 04:23 WBC 7.1 10.1 8.0 Hgb 8.4 L 8.3 L 8.7 L Plt Count 175 D 179 172 Assessment and Plan (1) ESRD (end stage renal disease): Status: Acute (2) Hyperkalemia: Status: Acute (3) (HFpEF) heart failure with preserved ejection fraction: Status: Acute (4) Anemia: Status: Acute Plan known ESRD, usually has HD at [facility] via AVF followed by Dr Dumas presented with SOB, hypotension known HFpEF underlying malignancy (vaginal invasive melanoma) neohrogenic anemia REC HD today optimize volume status renal diet P binders no GEREMIAS Thank you Procedures Date of Service Date of Service: 09/08/23
--- NOTE | 2023-09-08 11:17 | PC.NURSE ---
assumed care of patient 0700 Pt A+Ox3, unclear of situation. Restless RASS +1 MD okayed continue precedex gtt until end of morning dialysis session. Precedex @0.6
--- NOTE | 2023-09-08 14:42 | MHC.CM.PN ---
Pt confused and not able to participate in CM assessment: information obtained from discussion w/HCP Evie, pt's dtr. Pt resides in an in law apartment with Ludy and her dtr, Shaina. Shaina is a compensated [employer] through [employer]. Pt is w/c bound primarily, uses [facility] home O2 and attends HD at [facility] in [place] on M, W, F transported by BLS. Discussed potential d/c needs: Evie is receptive to a new [facility] referral. BLS transport to home: IMM in chart, HCP on file. CM to follow for changes in d/c plans.
[2023-09-08] MEDS: Norepinephrine Bitartrate/D5W 8 MG/250 ML PLAST..BAG 8.77 MG IV (15:56)
[2023-09-08] MEDS: Midodrine HCl 10 MG TABLET PO ×2 (15:58→20:09)
[2023-09-08] MEDS: oxyCODONE HCl Immed Release 5 MG TABLET PO (20:09)
[2023-09-09] VITALS (30 sets, daily range): BP systolic 82–141; BP diastolic 27–55; PULSE 76–90; RESP 15–22; TEMP 36.4–37.3; O2SAT 90–100; BMI 34.9
[2023-09-09 04:42] LABS: VBG Base Excess 2.4 mmol/L; VBG HCO3 25 mmol/L (22-26); VBG pCO2 31 mmHg; VBG pH 7.51 (7.32-7.43); VBG pO2 48 mmHg
[2023-09-09 04:46] LABS: MANUAL DIFF FLAG NO
[2023-09-09 04:48] LABS: Basophils Percent Auto 0.3 % (0-2); Eosinophils Absolute Auto 0.4 X10*3/uL (0.0-0.4); Eosinophils Percent Auto 3.7 % (0-4); Hematocrit 26.1 % (37.0-47.0); Hemoglobin 8.4 g/dl (12.0-16.0); Imm Gran Abs Auto 0.04 X10*3/uL (0.00-0.03); Imm Gran Pct Auto 0.4 % (0.0-0.4); Lymphocytes Absolute Auto 1.5 X10*3/uL (1.2-4.9); Lymphocytes Percent Auto 15.2 % (20-40); Mean Corpuscular HGB Conc 32.2 g/dl (31.0-35.0); Mean Corpuscular Hemoglobin 32.4 pg (27.0-33.0); Mean Corpuscular Volume 100.8 fL (80.0-98.0); Mean Platelet Volume 9.6 fL (9.4-12.3); Monocytes Absolute Auto 0.9 X10*3/uL (0.1-1.2); Monocytes Percent Auto 9.5 % (2-11); Neutrophils Absolute Auto 6.8 x10*3/uL (2.0-8.3); Neutrophils Percent Auto 70.9 % (45-73); Platelet Count 177 X10*3/uL (160-400); Red Blood Count 2.59 X10*6/uL (4.20-5.50); Red Cell Distribution Width 14.8 % (11.0-16.0); White Blood Count 9.6 X10*3/uL (4.8-10.8)
[2023-09-09] MEDS: Levothyroxine Sodium 100 MCG TABLET PO (05:01)
[2023-09-09] MEDS: oxyCODONE HCl Immed Release 5 MG TABLET PO ×3 (05:01→23:13)
[2023-09-09 05:05] LABS: Venous Blood Gas Refer to POC result
[2023-09-09 05:09] LABS: Alanine Aminotransferase 10 U/L (0-31); Albumin Level 3.4 g/dL (3.5-5.0); Alkaline Phosphatase 73 U/L (39-117); Anion Gap 18 (12-20); Aspartate Amino Transferase 22 U/L (5-31); Bilirubin Total 0.8 mg/dL (0.0-1.0); Blood Urea Nitrogen 24 mg/dL (9-16); Calcium 8.7 mg/dL (8.4-10.2); Carbon Dioxide 22 mmol/L (22-29); Chloride 101 mmol/L (96-108); Creatinine Clr Calc Pharmacy 12.2; Estimated Glomerular Filt Rate 12; Glucose Random 91 mg/dL (60-115); Phosphorus 4.3 mg/dL (2.7-4.5); Potassium 4.5 mmol/L (3.3-5.1); Sodium 136 mmol/L (135-145); Total Protein 6.1 g/dL (6.5-8.0)
[2023-09-09] MEDS: Midodrine HCl 10 MG TABLET PO ×3 (08:07→20:14)
[2023-09-09] MEDS: Albumin Human 25 % 100 ML IV ×3 (09:34→20:14)
--- NOTE | 2023-09-09 09:47 | PM.CCPN ---
Subjective Subjective Date of Service: 09/09/23 Interval History: 82-year-old lady with underlying history of diastolic heart failure, ESRD on hemodialysis Thursday/Thursday/Thursday with [facility], recent diagnosis of vaginal invasive melanoma being admitted for 1 day history of dyspnea and hypotension. Patient states that her normal blood pressure runs with systolic of 80-90. She was on the way to her hemodialysis the morning of admission, however she developed significant dyspnea and went to emergency room instead. In the emergency room patient noted to be an exacerbation of underlying diastolic congestive heart failure requiring hemodialysis, however the same time with very borderline blood pressures with poor response to initial volume resuscitation necessitating initiation of Levophed support and admission to the intensive care unit. Nephrology was consulted by emergency room provider for hemodialysis. Patient had initial 2 hour hemodialysis session 09/07/2023 with improvement and hyperkalemia, but still significant hypoxia requiring BiPAP support. Now titrated off BiPAP support. Delirium resolved. No events overnight. Pressor requirement significantly decreased. Critical Care Time (minutes): 45 Physical Exam Vital Signs: Vital Signs: Last Vital Signs Temp 98.5 F 09/09/23 08:00 Pulse 90 09/09/23 09:00 Resp 18 09/09/23 09:00 BP 122/41 L 09/09/23 09:00 Pulse Ox 95 09/09/23 09:00 O2 Del Method High Flow Nasal C annula 09/09/23 09:00 O2 Flow Rate 45 09/09/23 09:00 FiO2 55 09/09/23 09:00 Oxygen Flow Rate 4 09/07/23 15:11 BMI result Body Mass Index 34.9 Const: General: no acute distress, alert and awake Eyes: Sclerae: sclerae normal EOM: EOMs intact bilaterally Neck: Neck: Yes no lymphadenopathy, Yes trachea midline and Yes supple Resp: Effort & Inspection: normal respiratory effort and no respiratory distress Auscultation: clear to auscultation bilaterally Cardio: Rate: regular rate Rhythm: regular rhythm Heart sounds: no gallops, no murmurs and no rubs GI: Palpation (GI): Soft to palpation and Other GI palpation findings present ( Nontender) Auscultation: normal bowel sounds Extrem: General: Yes no pedal edema, No clubbing and No cyanosis Objective Data Labs 09/09/23 04:29 02/28/24 04:29 Labs: Laboratory Results - last 24 hr 09/09/23 09/09/23 04:29 04:35 WBC 9.6 RBC 2.59 L Hgb 8.4 L Hct 26.1 L MCV 100.8 H MCH 32.4 MCHC 32.2 RDW 14.8 Plt Count 177 MPV 9.6 Immature Gran % (Auto) 0.4 Neut % (Auto) 70.9 Lymph % (Auto) 15.2 L [place] % (Auto) 9.5 Eos % (Auto) 3.7 Baso % (Auto) 0.3 Lymph # (Auto) 1.5 [place] # (Auto) 0.9 Eos # (Auto) 0.4 Baso # (Auto) 0.0 Abs Immat Gran (auto) 0.04 H Absolute Neuts (auto) 6.8 Absolute Nucleated RBC 0.000 Nucleated RBC % (auto) 0.0 VBG pH 7.51 H VBG pCO2 31 VBG pO2 48 VBG HCO3 25 VBG O2 Saturation 84.0 VBG Base Excess 2.4 Sodium 136 Potassium 4.5 Chloride 101 Carbon Dioxide 22 Anion Gap 18 BUN 24 H Creatinine 3.72 H Estim Creat Clear Calc 12.2 Estimated GFR 12 Random Glucose 91 Calcium 8.7 Phosphorus 4.3 Magnesium 2.0 Total Bilirubin 0.8 AST 22 ALT 10 Alkaline Phosphatase 73 Total Protein 6.1 L Albumin 3.4 L Microbiology Microbiology Results: Microbiology 09/07/23 23:49 Blood - Venous Blood Culture - Preliminary No growth after 24 hours. 09/07/23 23:49 Blood - Venous Blood Culture - Preliminary No growth after 24 hours. 09/07/23 12:42 Blood - Venous Blood Culture - Preliminary No growth after 24 hours. 09/07/23 12:28 Blood - Venous Blood Culture - Preliminary No growth after 24 hours. Progress Note: A&P Assessment and plan (1) (HFpEF) heart failure with preserved ejection fraction: Status: Acute (2) Metastatic melanoma: Status: Acute (3) Delirium: Status: Acute (4) Metabolic encephalopathy: Status: Acute (5) Vaginal melanoma: Status: Acute (6) ESRD needing dialysis: Status: Acute Plan Assessment: 82-year-old lady with underlying ESRD on hemodialysis being admitted with exacerbation of underlying chronic diastolic congestive heart failure and hypotension Plan: Neuro: Encephalopathy, likely metabolic. However, if not improving after dialysis, will consider MRI brain secondary to underlying history of metastatic melanoma. Cardiac: Acute on chronic diastolic congestive heart failure. Improved with hemodialysis. Hypotension, appears to be chronic and with poor response to initial IV fluids/albumin. Continue to titrate off Levophed support as tolerated. Pulmonary: Acute hypoxic respiratory failure secondary to exacerbation of underlying chronic diastolic congestive heart failure, resolved. Renal: No acute issues. Underlying ESRD on hemodialysis. Nephrology service care appreciated. Continue hemodialysis support. Endo: No acute issues. GI: No acute issues. ID: No acute issues Heme/Onc: No acute issues. Psych: No acute issues. Miscellaneous: No acute issues. Prophylaxis: Heparin Diet: Cardiac Critical care time spent: 45 minutes Quality Stroke Does the patient have a stroke diagnosis?: No VTE Prior VTE?: No VTE Risk Level:: Medical - moderate - high VTE Device Contraindication: Treatment Not Indicated VTE Drug Contraindication: N/A - Med Ordered
--- NOTE | 2023-09-09 09:57 | PC.RT ---
Pt was transitioned to 5 lpm [place] from [facility]. Curtis cavazos, RN/ aware.
[2023-09-10] MEDS: Albumin Human 25 % 100 ML IV (02:39)
[2023-09-10 03:45] VITALS: BP 113/51; PULSE 82; RESP 20; TEMP 36.2; O2SAT 94
[2023-09-10 03:50] LABS: Glucose, Whole Blood 89 mg/dL (60-115)
[2023-09-10] MEDS: Levothyroxine Sodium 100 MCG TABLET PO (05:15)
[2023-09-10 06:38] LABS: MANUAL DIFF FLAG NO
[2023-09-10 06:58] LABS: Basophils Percent Auto 0.4 % (0-2); Eosinophils Absolute Auto 0.5 X10*3/uL (0.0-0.4); Eosinophils Percent Auto 7.4 % (0-4); Hematocrit 22.1 % (37.0-47.0); Hemoglobin 7.1 g/dl (12.0-16.0); Imm Gran Abs Auto 0.05 X10*3/uL (0.00-0.03); Imm Gran Pct Auto 0.7 % (0.0-0.4); Lymphocytes Absolute Auto 1.2 X10*3/uL (1.2-4.9); Lymphocytes Percent Auto 17.8 % (20-40); Mean Corpuscular HGB Conc 32.1 g/dl (31.0-35.0); Mean Corpuscular Hemoglobin 32.9 pg (27.0-33.0); Mean Corpuscular Volume 102.3 fL (80.0-98.0); Monocytes Absolute Auto 0.7 X10*3/uL (0.1-1.2); Monocytes Percent Auto 10.8 % (2-11); Neutrophils Absolute Auto 4.3 x10*3/uL (2.0-8.3); Neutrophils Percent Auto 62.9 % (45-73); Platelet Count 172 X10*3/uL (160-400); Red Blood Count 2.16 X10*6/uL (4.20-5.50); Red Cell Distribution Width 14.6 % (11.0-16.0); White Blood Count 6.8 X10*3/uL (4.8-10.8)
[2023-09-10 07:03] LABS: Albumin Level 4.1 g/dL (3.5-5.0); Anion Gap 15 (12-20); Blood Urea Nitrogen 39 mg/dL (9-16); Calcium 9.4 mg/dL (8.4-10.2); Carbon Dioxide 25 mmol/L (22-29); Chloride 103 mmol/L (96-108); Glucose Random 90 mg/dL (60-115); Magnesium 2.2 mg/dL (1.6-2.6); Phosphorus 5.2 mg/dL (2.7-4.5); Sodium 139 mmol/L (135-145)
[2023-09-10 07:13] LABS: Creatinine Clr Calc Pharmacy 7.7; Estimated Glomerular Filt Rate 7
[2023-09-10 08:00] VITALS: BP 102/50; PULSE 77; RESP 20; TEMP 36.9; O2SAT 97
--- NOTE | 2023-09-10 09:04 | P.PNIM_ITS ---
Subjective Subjective Date of Service: 09/10/23 Interval History: feeling better Physical Exam 2 Vital Signs: Vital Signs: Last Vital Signs Temp 98.4 F 09/10/23 08:00 Pulse 77 09/10/23 08:00 Resp 20 09/10/23 08:00 BP 102/50 L 09/10/23 08:00 Pulse Ox 97 09/10/23 08:00 O2 Del Method Nasal Cannula 09/10/23 08:00 O2 Flow Rate 4 09/10/23 08:00 FiO2 55 09/09/23 09:00 Oxygen Flow Rate 4 09/07/23 15:11 BMI result Body Mass Index 34.9 Const: General: no acute distress, alert and awake Eyes: Sclerae: sclerae normal EOM: EOMs intact bilaterally Neck: Neck: Yes no lymphadenopathy, Yes trachea midline and Yes supple Resp: Effort & Inspection: normal respiratory effort and no respiratory distress Auscultation: clear to auscultation bilaterally Cardio: Rate: regular rate Rhythm: regular rhythm Heart sounds: no gallops, no murmurs and no rubs GI: Palpation (GI): Soft to palpation and Other GI palpation findings present ( Nontender) Auscultation: normal bowel sounds Extrem: General: Yes no pedal edema, No clubbing and No cyanosis Objective Data Active Medications Aspirin (Aspirin Enteric Coated 81 Mg Tablet.Dr) 81 mg PO DAILY [facility] Atorvastatin Calcium (Atorvastatin Calcium 20 Mg Tablet) 20 mg PO BEDTIME [facility] Dextrose (Dextrose 50 % 25 Gm/50 Ml Syringe) 25 gm IVPUSH Q15M PRN; Protocol PRN Reason: per Hypoglycemia Standing Ord. Escitalopram Oxalate (Escitalopram Oxalate 10 Mg Tablet) 10 mg PO DAILY [facility] Famotidine (Famotidine 20 Mg Tablet) 20 mg PO DAILY [facility] Fluticasone/Umeclidinium/Vilanterol (Fluticasone/Umeclidinium/Vilanterol 100/62.5/25 Blst.W.Dev) 1 puff INHALE RDAILY [facility] Furosemide (Furosemide 40 Mg Tablet) 40 mg PO BID@0900,1800 [facility]; Protocol Gabapentin (Gabapentin 100 Mg Capsule) 100 mg PO TID [facility] Glucose (Glucose Gel 15 Gm Gel..Gram.) 15 gm PO Q15M PRN; Protocol PRN Reason: per Hypoglycemia Standing Ord. Insulin Human Lispro (Insulin Lispro 100 Unit/Ml 3 Ml Vial) 0 unit SUBCUT QIDACHS [facility]; Protocol Last Admin: 09/10/23 08:13 Dose: Not Given Documented By: SAMUEL Non-Admin Reason: No Insulin Coverage Levothyroxine Sodium (Levothyroxine Sodium 100 Mcg Tablet) 100 mcg PO DAILY@0600 [facility] Last Admin: 09/10/23 05:15 Dose: 100 mcg Documented By: DEVIN Metoprolol Tartrate (Metoprolol Tartrate 12.5 Mg Halftab) 12.5 mg PO BID [facility]; Protocol Midodrine (Midodrine Hcl 10 Mg Tablet) 10 mg PO TID [facility] Last Admin: 09/09/23 20:14 Dose: 10 mg Documented By: DEVIN Oxycodone HCl (Oxycodone Hcl Immed Release 5 Mg Tablet) 5 mg PO Q6H PRN PRN Reason: Pain, Moderate(Pain Scale 4-6) Last Admin: 09/09/23 23:13 Dose: 5 mg Documented By: DEVIN Oxycodone HCl (Oxycodone Hcl Immed Release 5 Mg Tablet) 5 mg PO Q6H PRN PRN Reason: moderate pain Ranolazine (Ranolazine 500 Mg Tab.Er.12h) 500 mg PO BID [facility] Sevelamer Carbonate (Sevelamer Carbonate Powder 800 Mg Powd.Pack) 800 mg PO TID [facility] Labs 09/10/23 06:21 09/10/23 06:21 Labs: Laboratory Results - last 24 hr 09/10/23 09/10/23 03:41 06:21 MCV 102.3 H MCH 32.9 MCHC 32.1 RDW 14.6 Plt Count 172 MPV 10.0 Immature Gran % (Auto) 0.7 H Neut % (Auto) 62.9 Lymph % (Auto) 17.8 L [place] % (Auto) 10.8 Eos % (Auto) 7.4 H Baso % (Auto) 0.4 Lymph # (Auto) 1.2 [place] # (Auto) 0.7 Eos # (Auto) 0.5 H Baso # (Auto) 0.0 Abs Immat Gran (auto) 0.05 H Absolute Neuts (auto) 4.3 Absolute Nucleated RBC 0.000 Nucleated RBC % (auto) 0.0 Anion Gap 15 Estim Creat Clear Calc 7.7 Estimated GFR 7 POC Glucose 89 Random Glucose 90 Calcium 9.4 D Phosphorus 5.2 H Magnesium 2.2 Albumin 4.1 Microbiology Microbiology Results: Microbiology 09/07/23 23:49 Blood Culture - Preliminary Blood - Venous No growth after 48 hours. 09/07/23 23:49 Blood Culture - Preliminary Blood - Venous No growth after 48 hours. 09/07/23 12:42 Blood Culture - Preliminary Blood - Venous No growth after 48 hours. 09/07/23 12:28 Blood Culture - Preliminary Blood - Venous No growth after 48 hours. Assessment and Plan (1) (HFpEF) heart failure with preserved ejection fraction: Status: Acute Plan 82F PMH of ESRD on HD, CHF, HLD, OA, chronic hypoxc respiratory failure on 4L home o2 due to copd/ILD, recent diagnosis of vaginal incasive melanoma, depression admitted to ICU for acute hypoxia due to acute on chronic diastolic chf in esrd, requiring bipapa and pressors, after HD, now back on 4L and off pressors, downgraded to medical floor. acute metabolic encephalopathy due to acute on chronic hypoxic respiratory failure due to acute on chronic diastolic chf and COPD/ILD now back to baseline mental status and O2 continue lasix and HD ESRD hd sevelamer hypotension not due to sepsis continue midodrine off pressors vaginal melanoma outpatient follow up hypothyroid synthroid history of DM resolved CAD asa, statin, ranexa dvt prophylaxis - hep sq DNR/DNI reason for continued hospitalization:close monitoring for decompensation off pressors/ maintance of baseline o2 Quality Stroke Does the patient have a stroke diagnosis?: No VTE Prior VTE?: No VTE Risk Level:: Medical - moderate - high VTE Device Contraindication: Treatment Not Indicated VTE Drug Contraindication: N/A - Med Ordered
[2023-09-10] MEDS: Midodrine HCl 10 MG TABLET PO ×3 (09:06→20:48)
[2023-09-10] MEDS: Fluticasone/Umeclidinium/Vilanterol 100/62.5/25 BLST.W.DEV 1 PUFF INHALE (11:23)
[2023-09-10 11:26] VITALS: PULSE 68; RESP 20; O2SAT 95
--- NOTE | 2023-09-10 11:50 | PM.PNNEP ---
Subjective Subjective Date of Service: 09/11/23 Interval history: feeling better Physical Exam Vital Signs: Vital Signs: Last Vital Signs Temp 98.4 F 09/10/23 08:00 Pulse 68 09/10/23 11:26 Resp 20 09/10/23 11:26 BP 102/50 L 09/10/23 08:00 Pulse Ox 97 09/10/23 08:00 O2 Del Method Nasal Cannula 09/10/23 08:00 O2 Flow Rate 4 09/10/23 08:00 FiO2 55 09/09/23 09:00 Oxygen Flow Rate 4 09/07/23 15:11 BMI result Body Mass Index 34.9 Const: General: cooperati ve and no acute di stress Resp: Effort & Inspectio n: normal respirat ory effort Auscul tation: no crackle s and no wheezes Cardio: Rate: regular rate Rhythm: regular rhythm Heart soun ds: S1 normal hear t sound present GI: Auscultation: norm al bowel sounds Extrem: General: Yes no pe jamia edema Objective Data Labs 09/11/23 07:00 09/10/23 06:21 Labs: Laboratory Results - last 24 hr 09/10/23 09/10/23 03:41 06:21 WBC 6.8 RBC 2.16 L Hgb 7.1 L Hct 22.1 L MCV 102.3 H MCH 32.9 MCHC 32.1 RDW 14.6 Plt Count 172 MPV 10.0 Immature Gran % (Auto) 0.7 H Neut % (Auto) 62.9 Lymph % (Auto) 17.8 L [place] % (Auto) 10.8 Eos % (Auto) 7.4 H Baso % (Auto) 0.4 Lymph # (Auto) 1.2 [place] # (Auto) 0.7 Eos # (Auto) 0.5 H Baso # (Auto) 0.0 Abs Immat Gran (auto) 0.05 H Absolute Neuts (auto) 4.3 Absolute Nucleated RBC 0.000 Nucleated RBC % (auto) 0.0 Sodium 139 Potassium 4.0 Chloride 103 Carbon Dioxide 25 Anion Gap 15 BUN 39 H Creatinine 5.78 H* Estim Creat Clear Calc 7.7 Estimated GFR 7 POC Glucose 89 Random Glucose 90 Calcium 9.4 D Phosphorus 5.2 H Magnesium 2.2 Albumin 4.1 Microbiology Microbiology Results: Microbiology 09/07/23 23:49 Blood - Venous Blood Culture - Preliminary No growth after 48 hours. 09/07/23 23:49 Blood - Venous Blood Culture - Preliminary No growth after 48 hours. 09/07/23 12:42 Blood - Venous Blood Culture - Preliminary No growth after 48 hours. 09/07/23 12:28 Blood - Venous Blood Culture - Preliminary No growth after 48 hours. Procedures Date of Service Date of Service: 09/11/23 Assessment & Plan Assessment and plan (1) ESRD needing dialysis: Status: Acute Plan Pt is ESRD on HD MWF, chronic hypoxc respiratory failure on 4L home o2 due to copd/ILD, recent diagnosis of vaginal invasive melanoma, admitted to ICU for acute hypoxia due to acute on chronic diastolic chf, requiring bipap and pressors, after HD, now back on 4L, tx to medical floor. ESRD on HD MWF Anemia Hb 7 Hypotension - on midodrine 10mg tid Plan: HD mwf will dose epo and get iron panel transfuse for hb < 7 Dose meds per HD sevelamer tid for shpt Time Spent With Patient Time: Total time managing care of this patient today ____ minutes. Progress Note: Quality Stroke Does the patient have a stroke diagnosis?: No
[2023-09-10 12:24] LABS: Glucose, Whole Blood 94 mg/dL (60-115)
[2023-09-10] MEDS: Famotidine 20 MG TABLET PO (13:25)
[2023-09-10] MEDS: Aspirin Enteric Coated 81 MG TABLET.DR PO (13:25)
[2023-09-10] MEDS: Ranolazine 500 MG TAB.ER.12H PO ×2 (13:25→20:49)
[2023-09-10] MEDS: Escitalopram Oxalate 10 MG TABLET PO (13:25)
[2023-09-10] MEDS: Heparin Sodium,Porcine 5,000 UNIT/ML VIAL 5000 UNIT SUBCUT (13:27)
[2023-09-10] MEDS: Sevelamer Carbonate Powder 800 MG POWD.PACK PO (15:01)
[2023-09-10] MEDS: Gabapentin 100 MG CAPSULE PO ×2 (15:01→20:49)
[2023-09-10 15:12] VITALS: BP 120/58; PULSE 81; RESP 20; TEMP 37.1; O2SAT 98
[2023-09-10 16:44] LABS: Glucose, Whole Blood 97 mg/dL (60-115)
[2023-09-10] MEDS: Furosemide 40 MG TABLET PO (17:20)
[2023-09-10 19:02] VITALS: BP 100/60; PULSE 86; RESP 20; TEMP 36.7; O2SAT 97
[2023-09-10 20:13] LABS: Glucose, Whole Blood 85 mg/dL (60-115)
[2023-09-10] MEDS: Metoprolol Tartrate 12.5 MG HALFTAB PO (20:48)
[2023-09-10] MEDS: Atorvastatin Calcium 20 MG TABLET PO (20:48)
[2023-09-10] MEDS: oxyCODONE HCl Immed Release 5 MG TABLET PO (20:50)
[2023-09-10 23:35] VITALS: BP 105/48; PULSE 66; RESP 21; TEMP 36.6; O2SAT 95
[2023-09-11 02:30] VITALS: BP 96/49; PULSE 71; RESP 16; O2SAT 95
[2023-09-11 02:33] LABS: Glucose, Whole Blood 102 mg/dL (60-115)
[2023-09-11 03:28] VITALS: BP 96/49; PULSE 65; RESP 21; TEMP 36.6; O2SAT 100
[2023-09-11 07:23] LABS: Hematocrit 30.2 % (37.0-47.0); Hemoglobin 9.7 g/dl (12.0-16.0); Mean Corpuscular HGB Conc 32.1 g/dl (31.0-35.0); Mean Corpuscular Hemoglobin 33.3 pg (27.0-33.0); Mean Corpuscular Volume 103.8 fL (80.0-98.0); Mean Platelet Volume 10.1 fL (9.4-12.3); Platelet Count 227 X10*3/uL (160-400); Red Blood Count 2.91 X10*6/uL (4.20-5.50); Red Cell Distribution Width 14.7 % (11.0-16.0); White Blood Count 9.1 X10*3/uL (4.8-10.8)
[2023-09-11 07:28] VITALS: BP 100/51; PULSE 70; RESP 20; TEMP 36.1; O2SAT 94
[2023-09-11 07:38] LABS: Anion Gap 23 (12-20); Blood Urea Nitrogen 26 mg/dL (9-16); Calcium 9.7 mg/dL (8.4-10.2); Carbon Dioxide 16 mmol/L (22-29); Chloride 102 mmol/L (96-108); Creatinine Clr Calc Pharmacy 10.6; Estimated Glomerular Filt Rate 10; Glucose Fasting 103 mg/dL (60-99); Potassium 4.4 mmol/L (3.3-5.1); Sodium 137 mmol/L (135-145)
[2023-09-11 08:01] LABS: Glucose, Whole Blood 103 mg/dL (60-115)
[2023-09-11] MEDS: Heparin Sodium,Porcine 5,000 UNIT/ML VIAL 5000 UNIT SUBCUT (08:27)
[2023-09-11] MEDS: Furosemide 40 MG TABLET PO (08:27)
[2023-09-11] MEDS: Metoprolol Tartrate 12.5 MG HALFTAB PO (08:27)
[2023-09-11] MEDS: Gabapentin 100 MG CAPSULE PO (08:27)
[2023-09-11] MEDS: Midodrine HCl 10 MG TABLET PO (08:27)
[2023-09-11] MEDS: Sevelamer Carbonate Powder 800 MG POWD.PACK PO (08:27)
[2023-09-11] MEDS: Ranolazine 500 MG TAB.ER.12H PO (08:27)
[2023-09-11] MEDS: Famotidine 20 MG TABLET PO (08:27)
[2023-09-11] MEDS: Escitalopram Oxalate 10 MG TABLET PO (08:27)
[2023-09-11] MEDS: Aspirin Enteric Coated 81 MG TABLET.DR PO (08:27)
[2023-09-11 08:34] LABS: Iron 95 mcg/dL (30-160); Percent Iron Saturation 66 % (15-50); Total Iron Binding Capacity 144 mcg/dL (228-428); Unsaturated Iron Binding 49 ug/dL
[2023-09-11 08:58] VITALS: PULSE 74; RESP 16; O2SAT 94
[2023-09-11] MEDS: Fluticasone/Umeclidinium/Vilanterol 100/62.5/25 BLST.W.DEV 1 PUFF INHALE (08:58)
--- NOTE | 2023-09-11 10:07 | P.PNNP_ITS ---
Subjective Subjective Date of Service: 09/11/23 Interval history: feeling better seen in dialysis today Physical Exam 2 Vital Signs: Vital Signs: Last Vital Signs Temp 96.9 F 09/11/23 07:28 Pulse 74 09/11/23 08:58 Resp 16 09/11/23 08:58 BP 100/51 L 09/11/23 07:28 Pulse Ox 94 09/11/23 07:28 O2 Del Method Nasal Cannula 09/11/23 07:28 O2 Flow Rate 3 09/11/23 07:28 FiO2 55 09/09/23 09:00 Oxygen Flow Rate 3 09/11/23 02:30 BMI result Body Mass Index 34.9 Const: General: cooperative and no acute distress, no JVD Resp: Effort & Inspection: normal respiratory effort Auscultation: no crackles and no wheezes Cardio: Rate: regular rate Rhythm: regular rhythm Heart sounds: S1 S2 normal heart sound present GI: Auscultation: normal bowel sounds Extremities: no pedal edema Objective Data Labs 09/11/23 07:00 09/11/23 07:00 Labs: Laboratory Results - last 24 hr 09/10/23 09/10/23 09/10/23 12:19 16:41 20:06 WBC RBC Hgb Hct MCV MCH MCHC RDW Plt Count MPV Absolute Nucleated RBC Nucleated RBC % (auto) Sodium Potassium Chloride Carbon Dioxide Anion Gap BUN Creatinine Estim Creat Clear Calc Estimated GFR POC Glucose 94 97 85 Fasting Glucose Calcium Iron TIBC % Saturation Unsat Iron Binding 09/11/23 09/11/23 09/11/23 02:17 07:00 07:30 WBC 9.1 RBC 2.91 L D Hgb 9.7 L D Hct 30.2 L D MCV 103.8 H MCH 33.3 H MCHC 32.1 RDW 14.7 Plt Count 227 D MPV 10.1 Absolute Nucleated RBC 0.000 Nucleated RBC % (auto) 0.0 Sodium 137 Potassium 4.4 Chloride 102 Carbon Dioxide 16 L Anion Gap 23 H BUN 26 H Creatinine 4.17 H* Estim Creat Clear Calc 10.6 Estimated GFR 10 POC Glucose 102 103 Fasting Glucose 103 H Calcium 9.7 Iron 95 TIBC 144 L % Saturation 66 H Unsat Iron Binding 49 Microbiology Microbiology Results: Microbiology 09/07/23 23:49 Blood - Venous Blood Culture - Preliminary No growth after 48 hours. 09/07/23 23:49 Blood - Venous Blood Culture - Preliminary No growth after 48 hours. 09/07/23 12:42 Blood - Venous Blood Culture - Preliminary No growth after 48 hours. 09/07/23 12:28 Blood - Venous Blood Culture - Preliminary No growth after 48 hours. Procedures Date of Service Date of Service: 09/11/23 Assessment & Plan Assessment and plan (1) (HFpEF) heart failure with preserved ejection fraction: Status: Acute (2) ESRD needing dialysis: Status: Acute Plan Pt is ESRD on HD MWF, chronic hypoxc respiratory failure on 4L home o2 due to copd/ILD, recent diagnosis of vaginal invasive melanoma, admitted to ICU for acute hypoxia due to acute on chronic diastolic chf, requiring bipap and pressors, after HD, now back on 4L, transferred back to medical floor. ESRD on HD MWF Anemia Hypotension - on midodrine 10mg tid Plan: HD mwf dosed epo as iron panel looks ok transfuse for hb < 7 Dose meds per HD sevelamer tid for shpt pt is euvolemic and lungs are clear - no need for additional UF going forward Time Spent With Patient Time: Total time managing care of this patient today ____ minutes. Progress Note: Quality Stroke Does the patient have a stroke diagnosis?: No
[2023-09-11 10:27] LABS: Ferritin 1926 ng/mL (10-250)
--- NOTE | 2023-09-11 10:32 | P.DS_ITS ---
DS: Providers Provider Date of Service: 09/11/23 Date of admission: 09/07/23 15:11 Primary care physician: Christina Paiz MD Consults: 09/07/23 18:35 Consult to Nephrology Stat Consulting Provider: [facility] Reason for consultation: Hemodialysis Has provider been notified: Yes DS: Diagnosis Discharge Diagnosis (1) (HFpEF) heart failure with preserved ejection fraction: Status: Acute (2) ESRD needing dialysis: Status: Acute DS: Summary Hospital Course Hospital Course: from initial hpi: 82-year-old lady with underlying history of diastolic heart failure, ESRD on hemodialysis Thursday/Thursday/Thursday with RTANE, recent diagnosis of vaginal invasive melanoma being admitted for 1 day history of dyspnea and hypotension. Patient states that her normal blood pressure runs with systolic of 80-90. She was on the way to her hemodialysis the morning of admission, however she developed significant dyspnea and went to emergency room instead. In the emergency room patient noted to be an exacerbation of underlying diastolic congestive heart failure requiring hemodialysis, however the same time with very borderline blood pressures with poor response to initial volume resuscitation necessitating initiation of Levophed support and admission to the intensive care unit. Nephrology was consulted by emergency room provider for hemodialysis. hospital course: Patient was admitted for acute metabolic encephalopathy due to acute on chronic hypoxic respiratory failure due to acute on chronic diastolic CHF and COPD/interstitial lung disease in a patient with end-stage renal disease. She was admitted to the intensive care unit requiring BiPAP therapy and pressors. Underwent hemodialysis and was able to be weaned back to her baseline 4 L O2 and taken off pressors. At time of discharge she is back to her baseline and euvolemic. For her recent diagnosis of vaginal melanoma she will follow-up with Oncology as outpatient. For hypothyroidism she was continued on Synthroid. For coronary disease she was continued on aspirin, statin, Ranexa. Patient is feeling better will be discharged home. Time Attestation Discharge coordination time: Greater than 30 minutes Quality: Safe Use of Opioids Does Pt have an Active Cancer Diagnosis on the Problem List?: Yes Opioid Measure Date for [facility] Report: 08/12/23 Opioid Measure Time for [facility] Report: 10:32 Quality: Stroke Does the patient have a stroke diagnosis?: No Physical Exam Vital Signs: Vital Signs: Last Vital Signs Temp 96.9 F 09/11/23 07:28 Pulse 74 09/11/23 08:58 Resp 16 09/11/23 08:58 BP 100/51 L 09/11/23 07:28 Pulse Ox 94 09/11/23 07:28 O2 Del Method Nasal Cannula 09/11/23 07:28 O2 Flow Rate 3 09/11/23 07:28 FiO2 55 09/09/23 09:00 Oxygen Flow Rate 3 09/11/23 02:30 BMI result Body Mass Index 34.9 Const: General: cooperative and no acute distress, no JVD Resp: Effort & Inspection: normal respiratory effort Auscultation: no crackles and no wheezes Cardio: Rate: regular rate Rhythm: regular rhythm Heart sounds: S1 S2 normal heart sound present GI: Auscultation: normal bowel sounds Extremities: no pedal edema DS: Data Data Completed and Pending Completed studies during hospitalization [Text1]: Procedures Assistance with Respiratory Ventilation, Less than 24 Consecutive Hours, Continuous Positive Airway Pressure (05/04/23) Dilation of Left Brachial Artery using Drug-Coated Balloon, Percutaneous Approach (08/06/23) Excision of Urethra, Via Natural or Artificial Opening Endoscopic, Diagnostic (08/06/23) Excision of Vagina, Via Natural or Artificial Opening, Diagnostic (08/06/23) Performance of Urinary Filtration, Intermittent, Less than 6 Hours Per Day (08/06/23) Labs on day of discharge: Laboratory Results - last 24 hr 09/10/23 09/10/23 09/10/23 12:19 16:41 20:06 WBC RBC Hgb Hct MCV MCH MCHC RDW Plt Count MPV Absolute Nucleated RBC Nucleated RBC % (auto) Sodium Potassium Chloride Carbon Dioxide Anion Gap BUN Creatinine Estim Creat Clear Calc Estimated GFR POC Glucose 94 97 85 Fasting Glucose Calcium Iron TIBC % Saturation Unsat Iron Binding Ferritin 09/11/23 09/11/23 09/11/23 02:17 07:00 07:30 WBC 9.1 RBC 2.91 L D Hgb 9.7 L D Hct 30.2 L D MCV 103.8 H MCH 33.3 H MCHC 32.1 RDW 14.7 Plt Count 227 D MPV 10.1 Absolute Nucleated RBC 0.000 Nucleated RBC % (auto) 0.0 Sodium 137 Potassium 4.4 Chloride 102 Carbon Dioxide 16 L Anion Gap 23 H BUN 26 H Creatinine 4.17 H* Estim Creat Clear Calc 10.6 Estimated GFR 10 POC Glucose 102 103 Fasting Glucose 103 H Calcium 9.7 Iron 95 TIBC 144 L % Saturation 66 H Unsat Iron Binding 49 Ferritin 1926 H Preliminary micro results at discharge 09/07/23 23:49 Blood Culture - Preliminary Blood - Venous No growth after 48 hours. 09/07/23 23:49 Blood Culture - Preliminary Blood - Venous No growth after 48 hours. 09/07/23 12:42 Blood Culture - Preliminary Blood - Venous No growth after 48 hours. 09/07/23 12:28 Blood Culture - Preliminary Blood - Venous No growth after 48 hours. Discharge Plan Discharge Anticipated Discharge Date/Time: 09/11/23 10:30 Patient Disposition: Home Health Service Discharge Diagnosis: hypoxia, chf Referrals: Christina Paiz MD [Primary Care Provider] - 1 Week Discharge Medications: New midodrine 10 mg Tablet 10 mg PO TID Qty: 270 0RF Continued (DME) wheelchair with footrests See Rx Instructions .Route .MEDSUPPLY Qty: 1 0RF Rx Instructions: As directed (DME) blood pressure test kit-medium Kit See Rx Instructions .Route Qty: 1 0RF Rx Instructions: As directed (DME) bedside commode Kit See Rx Instructions .Route Qty: 1 0RF Rx Instructions: As directed (DME) grab bar for bathroom See Rx Instructions .Route .MEDSUPPLY Qty: 2 0RF Rx Instructions: As directed citalopram 20 mg tablet 20 mg PO DAILY Qty: 300 3RF (DME) Depend Underwear For Women [facility] See Rx Instructions .Route Qty: 76 1RF Rx Instructions: As directed (DME) disposable gloves [Disposable Latex-Free Gloves] [facility] See Rx Instructions .Route Qty: 100 1RF Rx Instructions: As directed levothyroxine 100 mcg tablet 100 mcg PO DAILY@0600 famotidine 20 mg tablet 20 mg PO DAILY albuterol sulfate 90 mcg/actuation HFA aerosol inhaler 2 puff inhalation Q4H PRN (Reason: Shortness Of Breath Or Wheezing) aspirin 81 mg Tablet,Delayed Release (Dr/Ec) 81 mg PO DAILY Qty: 90 0RF metoprolol tartrate 25 mg tablet 12.5 mg PO BID Qty: 180 0RF atorvastatin 20 mg tablet 20 mg PO BEDTIME furosemide 40 mg Tablet 40 mg PO BID@0900,1800 Qty: 60 0RF Protocol: Hold for SBP< HOLD for SBP < : 90 sevelamer carbonate 0.8 gram powder in packet 0.8 g PO TID gabapentin 100 mg capsule 100 mg PO TID oxycodone 5 mg Tablet 5 mg PO Q6H PRN (Reason: moderate pain) Qty: 20 0RF Rx Instructions: Partial Fill upon patient request. Trelegy Ellipta 100-62.5-25 mcg blister with device 1 ea inhalation DAILY Qty: 60 3RF ranolazine 500 mg tablet extended release 12 hr 500 mg PO BID 90 Days Qty: 180 3RF nitroglycerin 0.4 mg tablet, sublingual 0.4 mg sublingual Q5M PRN (Reason: chest pain) Qty: 30 5RF Rx Instructions: do not exceed 3 doses per episode Discontinued midodrine 5 mg Tablet 5 mg PO TID 90 Days Qty: 270 0RF Discharge Orders: Discharge Order (Routine); Ordered 09/11/23 Ordered By: Evgeny Scott Diet: Advance to usual diet Activity on Discharge: As tolerated Stand Alone Forms: Patient Portal Discharge page Care Plan Goals: recovery Health Concerns: chf, esrd Plan of Treatment: follow with hd, nephro, oncology Assessment: see above
--- NOTE | 2023-09-11 10:59 | MHC.CM.PN ---
Second IMM given 09/10. Pt is medically cleared for D/C home with new [facility] and resumption of [facility] services, and home O2 through [facility]. Pt will transport home via [facility] at 2pm.
--- NOTE | 2023-09-11 11:05 | W.MHC.F2F ---
Service Date Service Date: 09/11/23 Encounter Date of encounter: 09/11/23 Reasons for Services Signs and symptoms assessed: weakness Reason for custodial: medication management, medication treatment and teach disease management Homebound: Leaving the home is medically contraindicated at this time without the asist of a device and/or another person due th the listed conditions above and below. Reason homebound: unsteady gait / fall risk Certification: Based on the above findings, I certify that this patient is confined to the home and needs intermittent custodial care, physical therapy and/or speech therapy, or continues to need occupational therapy. The patient is under my care, and I have initiated the establishment of the plan of care. The patient will be followed by a physician who will periodically review the plan of care. Time Spent With Patient Time: Total time managing care of this patient today ____ minutes.
[2023-09-11 11:21] LABS: Glucose, Whole Blood 90 mg/dL (60-115)
[2023-09-11 12:00] VITALS: BP 121/58; PULSE 75; RESP 20; TEMP 36.4; O2SAT 98
== END 2023-09-11 14:25 | disposition home health service (06) | DRG 682 ==
LOC: HO.ED 15:21 → HO.EDOVER 15:32 → HO.ICU 15:49 → HO.IMC 09-09 18:05
PROVIDERS: Internal Medicine; Nurse Practitioner Family; Physician Assistant Medical; Admitting Provider Internal Medicine Pulmonary Disease; Emergency Provider Emergency Medicine; PCP Internal Medicine; Visit Provider Internal Medicine
DX: N18.6 End stage renal disease (principal); G93.41 Metabolic encephalopathy; I50.33 Acute on chronic diastolic (congestive) heart failure; J96.21 Acute and chronic respiratory failure with hypoxia; F05 Delirium due to known physiological condition; Z66 Do not resuscitate; I25.10 Atherosclerotic heart disease of native coronary artery without angina pectoris; J44.9 Chronic obstructive pulmonary disease, unspecified; D63.1 Anemia in chronic kidney disease; I95.9 Hypotension, unspecified; Z99.81 Dependence on supplemental oxygen; C52 Malignant neoplasm of vagina; Z99.2 Dependence on renal dialysis; E87.5 Hyperkalemia; Z20.822 Contact with and (suspected) exposure to COVID-19; Z87.891 Personal history of nicotine dependence; Z79.51 Long term (current) use of inhaled steroids; Z79.890 Hormone replacement therapy; Z79.899 Other long term (current) drug therapy
CPT/HCPCS: 36415; 71045; 80048; 80053; 80076; 82040; 82728; 82803; 82947; 83540; 83605; 83690; 83735; 83880; 84100; 84484; 85025; 85027; 87040; 87502; 87635; 90999; 93005; 94640; 94660; 99285; J1644; J2270; J3370; J7120; P9047

== ENCOUNTER → 2023-09-07 11:54 | Outpatient (BNV) | payer OTHER, SELFPAY | PROVIDERS: Admitting Provider Internal Medicine Pulmonary Disease; Emergency Provider Emergency Medicine; PCP Internal Medicine; Visit Provider Internal Medicine | DX: R06.02 Shortness of breath (principal) | CPT/HCPCS: 93010 ==

== ENCOUNTER → 2023-09-07 15:11 | Outpatient (BNV) | payer OTHER, SELFPAY | PROVIDERS: Admitting Provider Internal Medicine Pulmonary Disease; Emergency Provider Emergency Medicine; PCP Internal Medicine; Visit Provider Internal Medicine | DX: I13.2 Hypertensive heart and chronic kidney disease with heart failure and with stage 5 chronic kidney disease, or end stage renal disease (principal); I50.30 Unspecified diastolic (congestive) heart failure; N18.6 End stage renal disease; Z99.2 Dependence on renal dialysis | CPT/HCPCS: 99232; 99238; G0180 ==

== ENCOUNTER → 2023-09-07 15:11 | Outpatient (BNV) | payer OTHER, SELFPAY | PROVIDERS: Admitting Provider Internal Medicine Pulmonary Disease; Emergency Provider Emergency Medicine; PCP Internal Medicine; Visit Provider Internal Medicine Pulmonary Disease | DX: I50.30 Unspecified diastolic (congestive) heart failure (principal); C52 Malignant neoplasm of vagina; N18.6 End stage renal disease; Z99.2 Dependence on renal dialysis; R41.0 Disorientation, unspecified; G93.41 Metabolic encephalopathy | CPT/HCPCS: 99291 ==

== ENCOUNTER 2023-09-21 21:37 | Emergency (ER) | payer OTHER, SELFPAY ==
--- NOTE | ~2023-09-21 | XR_ITS ---
EXAMINATION: XR ABDOMEN KUB CLINICAL INDICATION: Nausea and vomiting. COMPARISON: None available. TECHNIQUE: AP view of the abdomen. FINDINGS: There is a nonspecific nonobstructive bowel gas pattern. There is air to the rectum. Pelvic phleboliths are noted. A spinal stimulator device extends to the T9-T10 level. The soft tissues are unremarkable. There is thoracolumbar disc degenerative change. XR/XR KUB IMPRESSION: Nonobstructive bowel gas pattern.
--- NOTE | ~2023-09-21 | XR_ITS ---
EXAMINATION: XR CHEST CLINICAL INFORMATION: Hypoxia. Rule out pneumonia. COMPARISON: 09/01/2023 TECHNIQUE: Frontal view of the chest was obtained. FINDINGS: Lung volumes are low. Peripheral reticular opacities bilaterally are most consistent with underlying fibrotic interstitial process. No new airspace consolidation is identified. No pneumothorax or pleural effusion. Cardiac and mediastinal contours are normal. Osteoarthritis is present in the acromioclavicular and glenohumeral joints. Spinal stimulator leads overlie the lower thoracic spine. XR/XR chest 1V IMPRESSION: Low lung volumes. No acute pulmonary findings. Chronic interstitial lung disease/fibrosis.
--- NOTE | ~2023-09-21 | CT_ITS ---
EXAMINATION: CT ABDOMEN AND PELVIS WITHOUT CONTRAST CLINICAL INFORMATION: Abdominal pain and hypotension. COMPARISON: 08/03/2023. TECHNIQUE: Multidetector volumetric imaging was performed from the superior aspect of the liver through the pubic symphysis. Sagittal and coronal reformatted images were obtained on the technologist's workstation. This CT examination was performed using dose optimization techniques as appropriate, variously including the following: *Automated exposure control *Adjustment of mA and/or kV according to patient size (this includes techniques or standardized protocols for targeted exams where dose is matched to indication/reason for exam; i.e. extremities or head) *Use of iterative reconstruction technique DLP: 782 mGy-cm FINDINGS: LUNG BASES: Again noted is chronic interstitial disease with presence of posterior lower lobe predominant interstitial fibrosis associated with traction bronchiectasis and honeycomb cyst like changes. HEPATOBILIARY: 3 cm cyst in the left lobe of the liver has a simple appearance. Gallbladder is unremarkable. No dilated bile ducts. PANCREAS: Chronic severe atrophy, fatty replacement of the pancreas. SPLEEN: Normal. ADRENAL GLANDS: Normal. KIDNEYS AND URETERS: No renal stones or hydronephrosis. Chronic moderate atrophy of the right kidney. A cyst of the lower pole of the right kidney measures 4.3 cm AP and has a simple appearance. No renal imaging follow-up recommended. The ureters are unremarkable. BLADDER: Normal. No calculi or wall thickening. BOWEL AND PERITONEUM: Stomach and small bowel are unremarkable. There appears to be a normal appendiceal stump, status post appendectomy. Again noted are multiple diverticula of the sigmoid colon. There is minimal haziness of some of the perisigmoid fat. Findings are equivocal for sigmoid diverticulitis. No abdominal free fluid or free air. ABDOMINAL WALL: Persistent fat-containing umbilical hernia with hernia neck measuring 1.7 cm transverse and hernia sac 3.5 cm transverse diameter. VASCULATURE: Atherosclerotic calcification of the abdominal aorta without aneurysm. LYMPH NODES: No pathologic sized lymph nodes in the abdomen or pelvis. Interval enlargement of superficial inguinal lymph nodes. The largest right and left inguinal lymph nodes measure 1.5 cm in short axis dimension. PELVIC VISCERA: Status post hysterectomy. Note that the patient had MR imaging findings of a mass between the distal urethra and anterior vaginal wall on 08/12/2023 but these structures are not well evaluated on this examination. MUSCULOSKELETAL: Chronic multilevel degenerative arthropathy of the visualized thoracolumbar spine. Spinal electrodes are seen within the posterior epidural space at T9/T10 levels. No acute or suspicious osseous abnormality. CT/CT abdomen pelvis wo IV con IMPRESSION: * There is diverticulosis of the sigmoid colon and subtle haziness of some of the perisigmoid fat; findings considered equivocal for mild sigmoid diverticulitis. * Interval development of inguinal lymphadenopathy in this patient who underwent pelvis MRI on 08/12/2023 for evaluation of a bleeding vaginal mass. * Chronic interstitial fibrosis within visualized lung bases. * Fat-containing umbilical hernia is unchanged. .
--- NOTE | 2023-09-21 21:43 | ECG_ITS ---
Test Reason : VOMITING Blood Pressure : / mmHG Vent. Rate : 088 BPM Atrial Rate : 088 BPM P-R Int : 208 ms QRS Dur : 078 ms QT Int : 402 ms P-R-T Axes : 036 050 003 degrees QTc Int : 486 ms Poor data quality Normal sinus rhythm Possible Left atrial enlargement Inferior infarct , age undetermined Abnormal ECG When compared with ECG of 07-SEP-2023 12:07, No significant change was found Referred By: Crystal Barrera Electronically Signed By:FRANCESCA HARTMANN MD
--- NOTE | 2023-09-21 21:49 | ED.NAVMDI ---
HPI - Nausea/Vomiting/Diarrhea General Chief complaint: Nausea/Vomiting/Diarrhea Stated complaint: VOMITING X45 MINS Time Seen by Provider: 09/21/23 21:42 Source: patient Mode of arrival: EMS History of Present Illness HPI Narrative: 82-year-old female who presents via EMS with a very complicated medical history includes ESRD with dialysis on Thursday/Thursday/Thursday and she did complete dialysis today and denies any complications during her dialysis session. She denies any shortness of breath but is on nasal cannula at baseline, she denies any chest pain or abdominal pain but states she has had diarrhea for the past couple of days and then began experiencing episodes of vomiting after eating canned clamped chowder this evening. Patient states that she was recently transitioned from oxycodone onto morphine. EMS provided IM Zofran. Related Data Home Medications Medication Instructions Recorded Confirmed albuterol sulfate 90 mcg/actuation 2 puff inhalation Q4H PRN 12/28/22 09/07/23 aerosol inhaler Shortness Of Breath Or Wheezing famotidine 20 mg tablet 20 mg PO DAILY 12/28/22 09/07/23 levothyroxine 100 mcg tablet 100 mcg PO DAILY@0600 12/28/22 09/07/23 atorvastatin 20 mg tablet 20 mg PO BEDTIME 01/24/23 09/07/23 gabapentin 100 mg capsule 100 mg PO TID 05/04/23 09/07/23 sevelamer carbonate 0.8 gram oral 0.8 g PO TID 09/07/23 09/07/23 powder packet Previous Rx's Medication Instructions Recorded aspirin 81 mg tablet,delayed 81 mg PO DAILY #90 tabs 12/31/22 release metoprolol tartrate 25 mg tablet 12.5 mg (1/2 x 25 mg) PO BID #180 12/31/22 tabs nitroglycerin 0.4 mg sublingual 0.4 mg sublingual Q5M PRN chest 01/14/23 tablet pain #30 tabs ranolazine 500 mg tablet,extended 500 mg PO BID 90 days #180 tabs 01/14/23 release,12 hr furosemide 40 mg tablet 40 mg PO BID@0900,1800 #60 tabs 02/17/23 wheelchair with footrests #1 ea 03/25/23 blood pressure test kit-medium #1 ea 03/27/23 commode (bedside commode) #1 ea 03/27/23 grab bar for bathroom #2 ea 03/27/23 citalopram 20 mg tablet 20 mg PO DAILY #300 tabs 04/20/23 fluticasone fur. 100 mcg-umeclid 1 ea inhalation DAILY #60 ea 07/16/23 62.5 mcg-vilant 25 mcg inhalat.powder (Trelegy Ellipta) oxycodone 5 mg tablet 5 mg PO Q6H PRN moderate pain #20 08/14/23 tabs diaper,brief,adult,disposable #76 ea 08/23/23 (Depend Underwear For Women Large) disposable gloves (Disposable #100 ea 08/23/23 Latex-Free Gloves) midodrine 10 mg tablet 10 mg PO TID #270 tabs 09/11/23 Allergies Allergy/AdvReac Type Severity Reaction Status Date / Time NSAIDS (Non-Steroidal Allergy Unknown Verified 07/16/23 14:07 Anti-Inflamma Gcckxtf-DPF-EpG Reductase AdvReac Severe LEG PAIN Verified 07/16/23 14:07 Inhibitor Review of Systems Review of Systems: Pertinent positives and negatives as stated in HPI [facility] Past Medical History Source: nursing notes reviewed Medical History ESRD needing dialysis (HFpEF) heart failure with preserved ejection fraction NSTEMI (non-ST elevated myocardial infarction) Cough Respiratory failure with hypoxia Interstitial lung disease Depression, major, recurrent Dyslipidemia Osteoarthritis of multiple joints Acquired hypothyroidism Heart murmur Fibromyalgia Diabetes Surgical History Hx of tonsillectomy S/P appendectomy Hx of fusion of cervical spine S/P anal fissurectomy H/O hemorrhoidectomy S/P partial hysterectomy Family History Family History Brother Substance use disorder Son Substance use disorder Daughter Substance use disorder Social History Social History Household Members: Family Household Members Other:: Lives alone granddaughter lives in attached house Housing: Unknown / Unable to assess Do you presently have visiting nurse or other home services: No Unable to assess alcohol history related to: Unknown Alcohol intake: current Alcohol intake frequency: does not drink Patient Tobacco Use Status: Former Tobacco user Quit Date: 15 years ago Tobacco use type: Cigarette Years Smoked: 20 +/- on and off Smoked in Last 30 Days: No e-Cigarette/Vaping Use: Former Use Second Hand Smoke Exposure: No Use of substances other than those prescribed or required for medical reasons: No Advance Directives: Yes Advance Directives on File: Yes Advance Directives Date on File: 02/03/23 service: No Current occupational status: retired Current occupation: right handed Cognitive needs: No Hearing needs: No Vision needs: Yes Physical Exam Vital Signs: Vital Signs: Last Vital Signs Temp 98.2 F 09/21/23 23:22 Pulse 81 09/21/23 23:22 Resp 17 09/21/23 23:22 BP 114/40 L 09/21/23 23:22 Pulse Ox 100 09/21/23 23:22 O2 Del Method Nasal Cannula 09/21/23 23:22 O2 Flow Rate 5 09/21/23 23:22 Oxygen Flow Rate 5 09/21/23 21:57 BMI result Body Mass Index 32.0 VITAL SIGNS: Reviewed. GENERAL: Well developed, well nourished, in no acute distress. HEAD: Normocephalic/atraumatic EYES: PERRLA, EOMI EARS: Ext canals without abnormality NOSE: Nares patent bilateral OROPHARYNX: no oral lesions noted, posterior pharynx clear NECK: Supple, no adenopathy LUNGS: Good inspiratory effort, no tachypnea/wheeze/rhonchi. No adventitious sounds or accessory muscle use. Nasal cannula in place CARDIOVASCULAR: Regular rate and rhythm without noted murmurs, no JVD or lower extremity edema. ABDOMEN: Soft, non-tender, non-distended with bowel sounds. MUSCULOSKELETAL: No tenderness, deformities, or effusions noted on gross inspection. EXTREMITIES: No cyanosis, clubbing or edema. RUE: AV fistula with good thrill and bruit SKIN: Inspection of the skin reveals no rashes NEUROLOGIC: Alert and oriented x 4. Strength and sensation to light touch were grossly intact x 4. Medical Decision Making Medical Decision Making MDM Narrative: 82-year-old female with history clinical presentation, DDX: Food poisoning, gastroenteritis, on review of patient's medication it does appear that she was recently started on antibiotics and this may be antibiotics associated GI symptoms, no clinical suspicion for intra-abdominal infection or obstruction and patient has no overt signs of cardiopulmonary issues at this time. Reviewed all investigations and hematologic indices demonstrated non infectious leukocytosis and chronically stable macrocytic anemia without thrombocytopenia. Coagulation studies are within normal limits. VBG is negative for evidence of respiratory acidosis and there is a mild hypercapnia consistent with patient's underlying history of COPD for which she is on chronic oxygen. Chemistry indices demonstrate chronically stable CKD for which patient is on dialysis and otherwise no electrolyte or significant liver enzyme derangements, BNP is well controlled without clinical evidence of acute exacerbation. Viral testing is negative for influenza/RSV/COVID-19. KUB is negative for obstructive bowel gas pattern. Patient is feeling much improved and is now tolerating oral intake. Patient has no other evidence of acute medical derangements and she is discharged home. Patient placed in physician observation because the patient needed more time for someone to be available to let patient into her home. At the time observation was started the patient's vital signs were stable, patient is alert and oriented, neuro: Nonfocal, CV RRR, lungs clear Differential Diagnosis Differential Diagnoses: The differential diagnosis associated with the presentation includes Please see the discussion above Admission/Observation Consideration of admission/observation: Escalation of care including admission/observation considered Please see the discussion above Lab Data MDM Lab Attestation statement: I reviewed the patient's lab results. Please see the discussion above 09/21/23 22:38 09/21/23 22:38 Labs: Lab Results 09/21/23 09/21/23 09/21/23 Range/Units 22:18 22:38 22:41 WBC 11.4 H (4.8-10.8) X10*3/uL RBC 3.00 L (4.20-5.50) X10*6/uL Hgb 9.8 L (12.0-16.0) g/dl Hct 30.4 L (37.0-47.0) % MCV 101.3 H (80.0-98.0) fL MCH 32.7 (27.0-33.0) pg MCHC 32.2 (31.0-35.0) g/dl RDW 14.8 (11.0-16.0) % Plt Count 257 (160-400) X10*3/uL MPV 9.4 (9.4-12.3) fL Immature Gran % (Auto) 0.7 H (0.0-0.4) % Neut % (Auto) 77.5 H (45-73) % Lymph % (Auto) 9.9 L (20-40) % [place] % (Auto) 6.3 (2-11) % Eos % (Auto) 5.3 H (0-4) % Baso % (Auto) 0.3 (0-2) % Lymph # (Auto) 1.1 L (1.2-4.9) X10*3/uL [place] # (Auto) 0.7 (0.1-1.2) X10*3/uL Eos # (Auto) 0.6 H (0.0-0.4) X10*3/uL Baso # (Auto) 0.0 (0.0-0.2) X10*3/uL Abs Immat Gran (auto) 0.08 H (0.00-0.03) X10*3/uL Absolute Neuts (auto) 8.9 H (2.0-8.3) x10*3/uL Absolute Nucleated RBC 0.000 (0.0-0.012) X10*3/uL Nucleated RBC % (auto) 0.0 (0.0-0.2) /100WBC PT 11.6 (11.1-13.3) SEC INR 1.0 (0.9-1.1) VBG pH 7.39 (7.32-7.43) VBG pCO2 49 mmHg VBG pO2 52 mmHg VBG HCO3 30 H (22-26) mmol/L VBG O2 Saturation 81.0 % VBG Base Excess 4.4 mmol/L Sodium 133 L (135-145) mmol/L Potassium 3.6 (3.3-5.1) mmol/L Chloride 92 L (96-108) mmol/L Carbon Dioxide 28 (22-29) mmol/L Anion Gap 17 (12-20) BUN 19 H (9-16) mg/dL Creatinine 3.91 H (0.5-1.4) mg/dL Estim Creat Clear Calc 10.4 Estimated GFR 11 Random Glucose 102 (60-115) mg/dL Calcium 9.5 (8.4-10.2) mg/dL Total Bilirubin 0.5 (0.0-1.0) mg/dL AST 18 (5-31) U/L ALT 9 (0-31) U/L Alkaline Phosphatase 105 (39-117) U/L B-Natriuretic Peptide 178 H (<100) pg/mL Total Protein 8.0 (6.5-8.0) g/dL Albumin 4.4 (3.5-5.0) g/dL Influenza Type A (PCR) NEGATIVE (Negative) Influenza Type B (PCR) NEGATIVE (Negative) RSV RNA Qual (PCR) NEGATIVE (Negative) SARS-CoV-2 RNA (RT-PCR) NEGATIVE (Negative) Independent Interpretation I performed an independent interpretation of an: EKG Interpretation: Normal sinus rhythm, HR-88, no STEMI, TX/QRS within normal limits, QTC mildly prolonged Radiology Impression Discussion of test interpretation with radiology: I have reviewed the radiologist's reading. Radiologist Impression: Please see the discussion above External Record Review External record reviewed: Outpatient record and Prior outpatient labs Chronic Conditions ESRD on dialysis, CHF Critical Care Time Critical Care Time Critical Care Time: Yes Total Critical Care Time: 45 Attestation: I personally attest to this time spent taking care of the patient. Discharge Plan Discharge Clinical Impression: Nausea & vomiting Patient Disposition: Home, Self-Care Instructions: Acute Nausea and Vomiting (ED) Additional Instructions: 1. Resume all home medications as prescribed. 2. Follow-up with your primary care doctor 1st thing in the morning. Return to the ER for any worsening symptoms. Prescriptions: No Action (DME) wheelchair with footrests See Rx Instructions .Route .MEDSUPPLY Qty: 1 0RF Rx Instructions: As directed (DME) blood pressure test kit-medium Kit See Rx Instructions .Route Qty: 1 0RF Rx Instructions: As directed (DME) bedside commode Kit See Rx Instructions .Route Qty: 1 0RF Rx Instructions: As directed (DME) grab bar for bathroom See Rx Instructions .Route .MEDSUPPLY Qty: 2 0RF Rx Instructions: As directed citalopram 20 mg tablet 20 mg PO DAILY Qty: 300 3RF (DME) [facility] See Rx Instructions .Route Qty: 76 1RF Rx Instructions: As directed (DME) disposable gloves [Disposable Latex-Free Gloves] [facility] See Rx Instructions .Route Qty: 100 1RF Rx Instructions: As directed levothyroxine 100 mcg tablet 100 mcg PO DAILY@0600 famotidine 20 mg tablet 20 mg PO DAILY albuterol sulfate 90 mcg/actuation HFA aerosol inhaler 2 puff inhalation Q4H PRN (Reason: Shortness Of Breath Or Wheezing) aspirin 81 mg Tablet,Delayed Release (Dr/Ec) 81 mg PO DAILY Qty: 90 0RF metoprolol tartrate 25 mg tablet 12.5 mg PO BID Qty: 180 0RF atorvastatin 20 mg tablet 20 mg PO BEDTIME furosemide 40 mg Tablet 40 mg PO BID@0900,1800 Qty: 60 0RF Protocol: Hold for SBP< HOLD for SBP < : 90 sevelamer carbonate 0.8 gram powder in packet 0.8 g PO TID midodrine 10 mg Tablet 10 mg PO TID Qty: 270 0RF gabapentin 100 mg capsule 100 mg PO TID oxycodone 5 mg Tablet 5 mg PO Q6H PRN (Reason: moderate pain) Qty: 20 0RF Rx Instructions: Partial Fill upon patient request. Trelegy Ellipta 100-62.5-25 mcg blister with device 1 ea inhalation DAILY Qty: 60 3RF ranolazine 500 mg tablet extended release 12 hr 500 mg PO BID 90 Days Qty: 180 3RF nitroglycerin 0.4 mg tablet, sublingual 0.4 mg sublingual Q5M PRN (Reason: chest pain) Qty: 30 5RF Rx Instructions: do not exceed 3 doses per episode
[2023-09-21 21:57] VITALS: BP 120/41; PULSE 90; RESP 12; TEMP 36.8; O2SAT 98; BMI 32.0
--- NOTE | 2023-09-21 22:26 | PC.NURSE ---
phlebotomy contacted for labdraw, #22 placed in L upper arm. pt states nausea now resolved. denies pain
[2023-09-21 22:42] LABS: MANUAL DIFF FLAG NO
[2023-09-21 22:45] LABS: Venous Blood Gas Refer to POC result
[2023-09-21 22:45] LABS: Basophils Percent Auto 0.3 % (0-2); Eosinophils Absolute Auto 0.6 X10*3/uL (0.0-0.4); Eosinophils Percent Auto 5.3 % (0-4); Hematocrit 30.4 % (37.0-47.0); Hemoglobin 9.8 g/dl (12.0-16.0); Imm Gran Abs Auto 0.08 X10*3/uL (0.00-0.03); Imm Gran Pct Auto 0.7 % (0.0-0.4); Lymphocytes Absolute Auto 1.1 X10*3/uL (1.2-4.9); Lymphocytes Percent Auto 9.9 % (20-40); Mean Corpuscular HGB Conc 32.2 g/dl (31.0-35.0); Mean Corpuscular Hemoglobin 32.7 pg (27.0-33.0); Mean Corpuscular Volume 101.3 fL (80.0-98.0); Mean Platelet Volume 9.4 fL (9.4-12.3); Monocytes Absolute Auto 0.7 X10*3/uL (0.1-1.2); Monocytes Percent Auto 6.3 % (2-11); Neutrophils Absolute Auto 8.9 x10*3/uL (2.0-8.3); Neutrophils Percent Auto 77.5 % (45-73); Platelet Count 257 X10*3/uL (160-400); Red Cell Distribution Width 14.8 % (11.0-16.0); White Blood Count 11.4 X10*3/uL (4.8-10.8)
[2023-09-21 22:46] LABS: VBG Base Excess 4.4 mmol/L; VBG HCO3 30 mmol/L (22-26); VBG pCO2 49 mmHg; VBG pH 7.39 (7.32-7.43); VBG pO2 52 mmHg
[2023-09-21 22:58] LABS: Alanine Aminotransferase 9 U/L (0-31); Albumin Level 4.4 g/dL (3.5-5.0); Alkaline Phosphatase 105 U/L (39-117); Anion Gap 17 (12-20); Aspartate Amino Transferase 18 U/L (5-31); Bilirubin Total 0.5 mg/dL (0.0-1.0); Blood Urea Nitrogen 19 mg/dL (9-16); Calcium 9.5 mg/dL (8.4-10.2); Carbon Dioxide 28 mmol/L (22-29); Chloride 92 mmol/L (96-108); Creatinine Clr Calc Pharmacy 10.4; Estimated Glomerular Filt Rate 11; Glucose Random 102 mg/dL (60-115); Potassium 3.6 mmol/L (3.3-5.1); Sodium 133 mmol/L (135-145)
[2023-09-21 23:03] LABS: Influenza A PCR NEGATIVE (Negative); Influenza B PCR NEGATIVE (Negative); Resp Syncy Virus RNA Qual PCR NEGATIVE (Negative); SARS COV2 PCR INHOUSE NEGATIVE (Negative)
[2023-09-21 23:04] LABS: B Type Natriuretic Peptide 178 pg/mL (<100)
[2023-09-21 23:22] VITALS: BP 114/40; PULSE 81; RESP 17; TEMP 36.8; O2SAT 100
--- NOTE | 2023-09-21 23:27 | PC.NURSE ---
Pt unable to provide urine sample at this time.
[2023-09-21 23:30] LABS: Prothrombin Time 11.6 SEC (11.1-13.3)
[2023-09-22] VITALS (8 sets, daily range): BP systolic 58–137; BP diastolic 31–56; PULSE 52–86; RESP 12–18; TEMP 36.6–36.8; O2SAT 54–100
--- NOTE | 2023-09-22 00:38 | PC.NURSE ---
PO challenged with crackers and apple juice. Pt is able to tolerate food and liquid with no nausea or vomiting. MD made aware.
--- NOTE | 2023-09-22 06:16 | ECG_ITS ---
Test Reason : HYPOTENSION Blood Pressure : / mmHG Vent. Rate : 090 BPM Atrial Rate : 090 BPM P-R Int : 218 ms QRS Dur : 086 ms QT Int : 424 ms P-R-T Axes : 042 100 023 degrees QTc Int : 518 ms Poor data quality Sinus rhythm with 1st degree A-V block Possible Right ventricular hypertrophy Prolonged QT Abnormal ECG When compared with ECG of 21-SEP-2023 21:58, Poor data quality in current ECG precludes serial comparison Referred By: Crystal Barrera Electronically Signed By:FRANCESCA HARTMANN MD
[2023-09-22 06:38] LABS: MANUAL DIFF FLAG NO
[2023-09-22] MEDS: 0.9 % Sodium Chloride 500 ML 999 ML IV (06:38)
[2023-09-22 06:39] LABS: Venous Blood Gas Refer to POC result
[2023-09-22 06:39] LABS: Basophils Percent Auto 0.3 % (0-2); Eosinophils Absolute Auto 0.6 X10*3/uL (0.0-0.4); Eosinophils Percent Auto 5.7 % (0-4); Hematocrit 29.4 % (37.0-47.0); Hemoglobin 9.7 g/dl (12.0-16.0); Imm Gran Abs Auto 0.08 X10*3/uL (0.00-0.03); Imm Gran Pct Auto 0.7 % (0.0-0.4); Lymphocytes Absolute Auto 1.7 X10*3/uL (1.2-4.9); Mean Corpuscular Hemoglobin 33.7 pg (27.0-33.0); Mean Corpuscular Volume 102.1 fL (80.0-98.0); Mean Platelet Volume 9.1 fL (9.4-12.3); Monocytes Absolute Auto 0.7 X10*3/uL (0.1-1.2); Monocytes Percent Auto 6.2 % (2-11); Neutrophils Absolute Auto 7.7 x10*3/uL (2.0-8.3); Neutrophils Percent Auto 71.1 % (45-73); Platelet Count 252 X10*3/uL (160-400); Red Blood Count 2.88 X10*6/uL (4.20-5.50); Red Cell Distribution Width 14.8 % (11.0-16.0); White Blood Count 10.8 X10*3/uL (4.8-10.8)
--- NOTE | 2023-09-22 06:40 | PC.NURSE ---
During rounding this nurse made aware of pts low BP 62/37 with o2 sat 54% on 4L NC Pt placed on a non re-breather with o2 improvement. MD made aware and at bedside. 500cc of NS started. EKG done. BS 106. 22G on the left upper arm infiltrated and removed. 20G placed on the right ankle by MD. Pt vitals and o2 stabilized. Labs drawn and ct scan ordered.
[2023-09-22 06:42] LABS: VBG Base Excess 2.7 mmol/L; VBG HCO3 30 mmol/L (22-26); VBG pCO2 63 mmHg; VBG pH 7.29 (7.32-7.43); VBG pO2 38 mmHg
[2023-09-22 06:58] LABS: Troponin-I High Sensitivity 21.4 ng/L (<3.5-17.0)
[2023-09-22 06:59] LABS: Alanine Aminotransferase 9 U/L (0-31); Albumin Level 4.3 g/dL (3.5-5.0); Alkaline Phosphatase 105 U/L (39-117); Anion Gap 18 (12-20); Aspartate Amino Transferase 18 U/L (5-31); Bilirubin Total 0.6 mg/dL (0.0-1.0); Blood Urea Nitrogen 24 mg/dL (9-16); Calcium 9.6 mg/dL (8.4-10.2); Carbon Dioxide 28 mmol/L (22-29); Chloride 92 mmol/L (96-108); Creatinine Clr Calc Pharmacy 8.8; Estimated Glomerular Filt Rate 9; Glucose Random 106 mg/dL (60-115); Potassium 3.9 mmol/L (3.3-5.1); Sodium 134 mmol/L (135-145); Total Protein 7.7 g/dL (6.5-8.0)
[2023-09-22 07:21] LABS: Glucose, Whole Blood 106 mg/dL (60-115)
[2023-09-22] MEDS: Magnesium Sulfate/H2O 2 GM/50 ML PIGGYBACK IV (07:42)
--- NOTE | 2023-09-22 07:49 | PC.NURSE ---
PT IS A/O X 4 NO SOB/PARAM NOTED SPEAKS IN FULL SENTENCES. 02 SAT 98% ON 2L OF OXYMASK. LUNGS - DIMINISHED ALL LOBES. HEPLOCK #20 TO R ANKLE (PROVIDER PLACED, VASCULAR MANAGER). B/P CUFF TO L THIGH. PT HAS EXCORIATED AREA TO BUTTOCK, BARRIER CREAM APPLIED. PT AWARE OF PLAN OF CARE WILL CONTINUE TO MONITOR
--- NOTE | 2023-09-22 08:30 | PC.NURSE ---
PT'S DAUGHTER SANG ([phone]) CALLED AND WAS UPDATED ON PT'S STATUS.
[2023-09-22 09:30] LABS: Venous Blood Gas Refer to POC result
[2023-09-22 09:32] LABS: VBG Base Excess 0.9 mmol/L; VBG HCO3 28 mmol/L (22-26); VBG pCO2 60 mmHg; VBG pH 7.28 (7.32-7.43); VBG pO2 45 mmHg
[2023-09-22 09:53] LABS: Troponin-I High Sensitivity 31.8 ng/L (<3.5-17.0)
[2023-09-22 15:03] LABS: Adenovirus F 40/41 Not Detected (Not Detect.); Astrovirus Not Detected (Not Detect.); Campylobacter Not Detected (Not Detect.); Cryptosporidium Not Detected (Not Detect.); Cyclospora cayetanensis Not Detected (Not Detect.); E. coli EAEC Not Detected (Not Detect.); E. coli EPEC Not Detected (Not Detect.); E. coli ETEC Not Detected (Not Detect.); E. coli STEC Not Detected (Not Detect.); Entamoeba histolytica Not Detected (Not Detect.); Giardia lamblia Not Detected (Not Detect.); Plesiomonas shigelloides Not Detected (Not Detect.); Rotavirus A Not Detected (Not Detect.); Salmonella Not Detected (Not Detect.); Sapovirus Not Detected (Not Detect.); Shigella sp./EIEC Not Detected (Not Detect.); Vibrio Not Detected (Not Detect.); Vibrio Cholerae Not Detected (Not Detect.); Yersinia enterocolitica Not Detected (Not Detect.)
== END 2023-09-22 15:58 | disposition home or self-care (01) ==
PROVIDERS: Student in an Organized Health Care Education/Training Program; Emergency Provider Emergency Medicine Emergency Medical Services
DX: R11.2 Nausea with vomiting, unspecified (principal); J84.10 Pulmonary fibrosis, unspecified; R09.02 Hypoxemia; I95.9 Hypotension, unspecified; E11.22 Type 2 diabetes mellitus with diabetic chronic kidney disease; N18.6 End stage renal disease; I50.30 Unspecified diastolic (congestive) heart failure; I25.2 Old myocardial infarction; Z79.891 Long term (current) use of opiate analgesic; Z99.2 Dependence on renal dialysis; Z99.81 Dependence on supplemental oxygen; Z11.52 Encounter for screening for COVID-19; Z20.828 Contact with and (suspected) exposure to other viral communicable diseases
CPT/HCPCS: 0241U; 36415; 71045; 74018; 74176; 80053; 82803; 82947; 83880; 84484; 85025; 85610; 87507; 93005; 96361; 96365; 99284; 99285; J3475

== ENCOUNTER → 2023-09-21 21:43 | Outpatient (BNV) | payer OTHER, SELFPAY | PROVIDERS: Emergency Provider Emergency Medicine Emergency Medical Services; Visit Provider Internal Medicine Cardiovascular Disease | DX: R94.31 Abnormal electrocardiogram [ECG] [EKG] (principal) | CPT/HCPCS: 93010 ==

== ENCOUNTER → 2023-09-22 06:16 | Outpatient (BNV) | payer OTHER, SELFPAY | PROVIDERS: Emergency Provider Emergency Medicine Emergency Medical Services; Visit Provider Internal Medicine Cardiovascular Disease | DX: R94.31 Abnormal electrocardiogram [ECG] [EKG] (principal) | CPT/HCPCS: 93010 ==

== ENCOUNTER 2023-09-23 09:09 | Inpatient (IN) | payer OTHER, SELFPAY ==
[2023-09-23 09:14] VITALS: BP 80/60; PULSE 136; O2SAT 76
--- NOTE | 2023-09-23 09:17 | ED_ITS ---
HPI - SOB/Dyspnea General Chief Complaint: Dyspnea Stated Complaint: RESP ARREST,DNR, ON CPAP FOR COMFORT PER EMS Time Seen by Provider: 09/23/23 09:17 History of Present Illness HPI Narrative: 82-year-old female with underlying history of diastolic heart failure, ESRD on hemodialysis Thursday/Thursday/Thursday with RTANE, recent diagnosis of vaginal invasive melanoma recently admitted to the hospital on 09/11/2023for dyspnea and hypotension secondary to congestive heart failure complicated by metabolic encephalopathy and hypotension. According to family, the patient was also hospitalized for vomiting and diarrhea and discharged home yesterday. Since getting home she has been very tired and fatigued. This morning when her granddaughter checked in on her the patient was not breathing well and was lethargic. The granddaughter called an ambulance. Paramedics reported that the patient's blood pressure was 80/60 with an O2 saturation of 76% on room air. Patient is a DNR, DNI, no noninvasive ventilation. However, the daughter did requested the patient be placed on CPAP for transport. When the patient got to the emergency department we initially placed the patient on BiPAP but after talking to the patient's daughter, the patient and her family wanted the patient to be comfort measures only therefore BiPAP was discontinued the patient was placed on an OxyMask. Patient was ordered to get morphine IV for her dyspnea and comfort. Related Data Home Medications ?Medication ?Instructions ?Recorded ?Confirmed No Known Home Meds 09/23/23 09/23/23 Allergies Allergy/AdvReac Type Severity Reaction Status Date / Time NSAIDS (Non-Steroidal Allergy Unknown Verified 07/16/23 14:07 Anti-Inflamma [id number]-[id number] Reductase AdvReac Severe LEG PAIN Verified 07/16/23 14:07 Inhibitor PMFSH Past Medical History Medical History ESRD needing dialysis (HFpEF) heart failure with preserved ejection fraction NSTEMI (non-ST elevated myocardial infarction) Cough Respiratory failure with hypoxia Interstitial lung disease Depression, major, recurrent Dyslipidemia Osteoarthritis of multiple joints Acquired hypothyroidism Heart murmur Fibromyalgia Diabetes Surgical History Hx of tonsillectomy S/P appendectomy Hx of fusion of cervical spine S/P anal fissurectomy H/O hemorrhoidectomy S/P partial hysterectomy Family History Family History Brother Substance use disorder Son Substance use disorder Daughter Substance use disorder Social History Social History Household Members: Family Household Members Other:: Lives alone granddaughter lives in attached house Housing: Unknown / Unable to assess Do you presently have visiting nurse or other home services: No Unable to assess alcohol history related to: Unknown Alcohol intake: current Alcohol intake frequency: does not drink Patient Tobacco Use Status: Former Tobacco user Quit Date: 15 years ago Tobacco use type: Cigarette Years Smoked: 20 +/- on and off e-Cigarette/Vaping Use: Former Use Second Hand Smoke Exposure: No Advance Directives Date on File: 02/03/23 service: No Current occupational status: retired Current occupation: right handed Cognitive needs: No Hearing needs: No Vision needs: Yes Physical Exam Vital Signs: Vital Signs: Last Vital Signs Temp 97.5 F 09/23/23 09:50 Pulse 84 09/23/23 09:50 Resp 12 09/23/23 09:50 BP 101/50 L 09/23/23 09:50 Pulse Ox 100 09/23/23 09:50 O2 Del Method Oxymask 09/23/23 09:50 BMI result Body Mass Index 32.3 Medications Administered Discontinued Medications Generic Name Dose Route Start Last Admin Trade Name Freq PRN Reason Stop Dose Admin Atropine Sulfate 2 drop 09/23/23 20:45 09/24/23 06:27 Atropine Sulfate 1 % Ophth Nishi 2 Ml Bottle SUBLINGUAL 2 drop Q2H PRN Administration Secretions Albuterol Sulfate 2.5 mg/ 0 mg 09/23/23 09:20 09/23/23 09:25 Albuterol/Ipratropium 3 ml INHALE 09/23/23 09:21 1 dose ONCE ONE Administration Morphine Sulfate 100 mg in 100 mls @ 0 mls/hr 09/23/23 12:30 09/24/23 09:30 Morphine Sulfate/Ns IVCONT Infused .Q0M INGRID Infusion Protocol Per Protocol Hydromorphone HCl 10 mg in 50 mls @ 0 mls/hr 09/24/23 08:15 09/24/23 15:33 Dilaudid IV 2 mg/hr .Q0M INGRID 10 mls/hr Administration Protocol Per Protocol Lorazepam 1 mg 09/23/23 21:52 09/24/23 11:38 Lorazepam 2 Mg/Ml Vial IVPUSH 1 mg Q2H PRN Administration anxiety/restlessness Morphine Sulfate 4 mg 09/23/23 09:27 09/23/23 09:41 Morphine Sulfate 4 Mg/Ml Cartridge IVPUSH 09/23/23 09:28 4 mg ONCE STA Administration Protocol Morphine Sulfate 4 mg 09/23/23 09:55 09/23/23 12:29 Morphine Sulfate 4 Mg/Ml Cartridge IVPUSH 4 mg Q20M PRN Administration dyspnea Protocol Morphine Sulfate 4 mg 09/23/23 11:31 09/24/23 03:54 Morphine Sulfate 4 Mg/Ml Cartridge IVPUSH 4 mg Q20M PRN Administration Dyspnea, discomfort Protocol Scopolamine 1.5 mg 09/23/23 12:30 09/23/23 12:37 Scopolamine 1.5 Mg Patch.Td.3 EAR-BEHIND 1.5 mg Q72H INGRID Administration Sodium Chloride 3 ml 09/23/23 16:00 09/24/23 08:36 0.9 % Sodium Chloride Flush 3 Ml Syringe IVFLUSH Not Given QSHIFT INGRID Medical Decision Making Medical Decision Making MDM Narrative: 82-year-old lady with underlying history of diastolic heart failure, ESRD on hemodialysis Thursday/Thursday/Thursday with RTANE, recent diagnosis of vaginal invasive melanoma recently admitted to the hospital on 09/11/2023 for dyspnea and hypotension secondary to congestive heart failure complicated by metabolic e ncephalopathy and hypotension requiring ICU admission on pressors for hemodialysis. Patient was also admitted for vomiting and diarrhea and discharged home yesterday and since being home she has been very tired and fatigued. Patient was found by her granddaughter to be in respiratory distress and brought to emergency department for evaluation. In the emergency department, I was able to talk to the patient's daughter who is the healthcare proxy and the patient was made comfort measures only. Patient is on oxygen and getting morphine IV for dyspnea and comfort I will discuss admission with the covering hospitalist for comfort care measures. Admission/Observation Consideration of admission/observation: Escalation of care including admission/observation considered Consult Healthcare Provider Management of the patient was discussed with: Hospitalist Critical Care Time Critical Care Time Critical Care Time: Yes Total Critical Care Time: 35 Attestation: Critical Care: The patient was critically ill with a high probability of imminent or life threatening deterioration. I spent greater than 30 minutes of discontinuous time evaluating the patient,delivering critical care at the bedside, discussing and evaluating pertinent data with consultants. Critical care time does not include time spent performing separately billable procedures or teaching. Total time spent performing critical care was 35 minutes. Discharge Plan Discharge Clinical Impression: Comfort measures only status Respiratory failure Qualifiers: Chronicity: acute Respiratory failure complication: hypoxia Qualified Code(s): J96.01 - Acute respiratory failure with hypoxia Patient Disposition: Admitted As Inpatient Interventions: Admission Worksheet (ED) Last Done: 09/23/23 13:06 Discharge Date/Time: 09/23/23 13:52
[2023-09-23 09:20] VITALS: PULSE 87; RESP 20; O2SAT 98
[2023-09-23] MEDS: Albuterol Sulfate 2.5 MG, Albuterol/Iprat 2.5/0.5MG 3 ML 3 ML INHALE (09:25)
[2023-09-23 09:28] VITALS: PULSE 87; RESP 20; O2SAT 98
--- NOTE | 2023-09-23 09:33 | PC.RT ---
Pt brought in via EMS on CPAP. Pt placed on bipap as documented per MD order at bedside. Breathing tx given as ordered. MD notified RT that pt is COBBLER MCKAY. Pt taken off bipap and placed on oxymask for comfort.
[2023-09-23] MEDS: Morphine Sulfate 4 MG/ML CARTRIDGE IVPUSH ×7 (09:41→21:53)
[2023-09-23 09:50] VITALS: BP 101/50; PULSE 84; RESP 12; TEMP 36.4; O2SAT 100; BMI 32.3
--- NOTE | 2023-09-23 11:25 | PC.NURSE ---
PT MED WITH MORPHINE FOR COMFORT. FAMILY AT BEDSIDE
--- NOTE | 2023-09-23 12:19 | PHA.MEDREC ---
Pharmacy Consult ? Medication Reconciliation Pharmacy has completed the medication reconciliation.Family confirmed patient not taking any medications currently, comfort measures.
--- NOTE | 2023-09-23 12:31 | P.HPHOSP_ITS ---
History of Present Illness Date of Service: 09/23/23 Chief Complaint: lethargy, hypoxia 82F PMH of ESRD on HD, CHF, HLD, OA, chronic hypoxc respiratory failure on 4L home o2 due to copd/ILD, recent diagnosis of vaginal incasive melanoma, depression presented with lethargy and hypoxia. patient has had frequent hosp italizations for chf, esrd with fluid overload, encephalopathy. was in ED 09/22/23 for n/v, went home and on day of presentation found by family to be lethargic, hypoxic (76% on room air), hypotensive to 80s. due to poor prognosis family decided to transition patient to comfort measures only. Review of Systems Review of Systems: Yes Unobtainable due to mental condition [facility] Medical History ESRD needing dialysis (HFpEF) heart failure with preserved ejection fraction NSTEMI (non-ST elevated myocardial infarction) Cough Respiratory failure with hypoxia Interstitial lung disease Depression, major, recurrent Dyslipidemia Osteoarthritis of multiple joints Acquired hypothyroidism Heart murmur Fibromyalgia Diabetes Family History Brother Substance use disorder Son Substance use disorder Daughter Substance use disorder Surgical History Hx of tonsillectomy S/P appendectomy Hx of fusion of cervical spine S/P anal fissurectomy H/O hemorrhoidectomy S/P partial hysterectomy Social History Household Members: Family Household Members Other:: Lives alone granddaughter lives in attached house Housing: Unknown / Unable to assess Do you presently have visiting nurse or other home services: No Unable to assess alcohol history related to: Unknown Alcohol intake: current Alcohol intake frequency: does not drink Patient Tobacco Use Status: Former Tobacco user Quit Date: 15 years ago Tobacco use type: Cigarette Years Smoked: 20 +/- on and off e-Cigarette/Vaping Use: Former Use Second Hand Smoke Exposure: No Advance Directives: Yes Advance Directives on File: Yes Advance Directives Date on File: 02/03/23 service: No Current occupational status: retired Current occupation: right handed Cognitive needs: No Hearing needs: No Vision needs: Yes Meds Allergies Allergy/AdvReac Type Severity Reaction Status Date / Time NSAIDS (Non-Steroidal Allergy Unknown Verified 07/16/23 14:07 Anti-Inflamma [id number]-[id number]-UgA Reductase AdvReac Severe LEG PAIN Verified 07/16/23 14:07 Inhibitor Active Medications: Current Medications Morphine Sulfate (Morphine Sulfate/Ns) 100 mg in 100 mls @ 0 mls/hr IVCONT .Q0M INGRID; Protocol Morphine Sulfate (Morphine Sulfate 4 Mg/Ml Cartridge) 4 mg IVPUSH Q20M PRN; Protocol PRN Reason: Dyspnea, discomfort Scopolamine (Scopolamine 1.5 Mg Patch.Td.3) 1.5 mg EAR-BEHIND Q72H [facility] Home Medications Medication Instructions Recorded Confirmed Last Taken Type No Known Home Meds 09/23/23 09/23/23 Unknown History Physical Exam Vital Signs and Narrative: Vital Signs: Last Vital Signs Temp 97.5 F 09/23/23 09:50 Pulse 84 09/23/23 09:50 Resp 12 09/23/23 09:50 BP 101/50 L 09/23/23 09:50 Pulse Ox 100 09/23/23 09:50 O2 Del Method Oxymask 09/23/23 09:50 BMI result Body Mass Index 32.3 Assessment and Plan (1) Respiratory failure: Qualifiers: Chronicity: acute Respiratory failure complication: hypoxia Qualified Code(s): J96.01 - Acute respiratory failure with hypoxia Status: Acute Plan 82F PMH of ESRD on HD, CHF, HLD, OA, chronic hypoxc respiratory failure on 4L ho me o2 due to copd/ILD, recent diagnosis of vaginal invasive melanoma, depression presented with lethargy and hypoxia Acute metabolic encephalopathy, acute hypoxic respiratory failure likely combination of acute on chronic diatolic chf, esrd with fluid overload, decomensation of copd/ild comfort measures only morphine infusion scopolamine monitor comfort level Quality Stroke Does the patient have a stroke diagnosis?: No VTE Prior VTE?: No VTE Risk Level:: Medical - moderate - high VTE Device Contraindication: Treatment Not Indicated VTE Drug Contraindication: Treatment Not Indicated
[2023-09-23] MEDS: Scopolamine 1.5 MG PATCH.TD.3 EAR-BEHIND (12:37)
[2023-09-23] MEDS: Morphine Sulfate/NS 100 MG/100 ML PLAST..BAG IVCONT (13:26)
--- NOTE | 2023-09-23 14:47 | MHC.CM.PN ---
IMM 09/23/23 Female 82 PMH ESRD HD, HF and Vag melenoma mass. She lives with family. Her Grdtr is her MANAGER GENERATION. Dtr Lynne Monique is her HCP. Pt BIBA on CPAP for Respiratory distress. Patient has been made TILE LAYER DRAINAGE at the families request. HCP is on file. Patient is DNR/DNI. Family at bedside.
--- NOTE | 2023-09-23 20:33 | PC.NURSE ---
witnessed cont Morphine drip increased to 5 mg/hr for Archana NASSAR
[2023-09-23] MEDS: Atropine Sulfate 1 % Ophth Sol 2 ML BOTTLE 2 DROP SUBLINGUAL (21:47)
[2023-09-23] MEDS: LORazepam 2 MG/ML VIAL 1 MG IVPUSH (22:00)
[2023-09-24] MEDS: Atropine Sulfate 1 % Ophth Sol 2 ML BOTTLE 2 DROP SUBLINGUAL ×3 (00:17→06:27)
[2023-09-24] MEDS: LORazepam 2 MG/ML VIAL 1 MG IVPUSH ×5 (00:17→11:38)
--- NOTE | 2023-09-24 00:45 | PC.NURSE ---
09/22 at 1935 - pt with increased respirations, family requested increase in morphine drip, increased by 1 mg to 4 mg/hr. 09/22 at 2020 - pt with increased respirations, family requested increase in morphine drip, increased by 1 mg to 5 mg/hr. 09/22 at 2150 - pt with increased respirations, family requested increase in morphine drip, increased by 1 mg to 6 mg/hr. 09/22 at 2255 - pt with increased respirations, family requested increase in morphine drip, increased by 1 mg to 7 mg/hr. 09/23 at 0020 - pt with increased respirations, family requested increase in morphine drip, increased by 1 mg to 8 mg/hr.
[2023-09-24] MEDS: Morphine Sulfate 4 MG/ML CARTRIDGE IVPUSH (03:54)
--- NOTE | 2023-09-24 04:14 | PC.NURSE ---
09/23 at 0350 pt with increased respirations, family requesting morphine drip to be increased, increased by 1 mg to 9 mg/hr.
--- NOTE | 2023-09-24 05:12 | PC.NURSE ---
09/23 at 0505 pt having increased respirations, pt's family requested for morphine drip to be increased, increased 0.9 mg to 9.9 mg/hr (BOLT CUTTER pump does not allow it to go to 10).
[2023-09-24] MEDS: Morphine Sulfate/NS 100 MG/100 ML PLAST..BAG 9.9 MG IVCONT (06:23)
--- NOTE | 2023-09-24 06:50 | PC.NURSE ---
09/23 at 0623 - morphine bag changed with Lauren Hopkins RN.
[2023-09-24] MEDS: HYDROmorphone HCl/NS 10 MG/50 ML PIGGYBACK IV ×2 (09:32→15:33)
--- NOTE | 2023-09-24 09:43 | P.PNIM_ITS ---
Subjective Subjective Date of Service: 09/24/23 Review of Systems Review of Systems: Yes Unobtainable due to mental condition Physical Exam Vital Signs: Vital Signs: Last Vital Signs Temp 97.5 F 09/23/23 09:50 Pulse 84 09/23/23 09:50 Resp 12 09/23/23 09:50 BP 101/50 L 09/23/23 09:50 Pulse Ox 100 09/23/23 09:50 O2 Del Method Oxymask 09/23/23 09:50 BMI result Body Mass Index 32.3 incraesed secreations, some tachypnea, accessory muscles obtunded Objective Data Active Medications Atropine Sulfate (Atropine Sulfate 1 % Ophth Nishi 2 Ml Bottle) 2 drop SUBLINGUAL Q2H PRN PRN Reason: Secretions Last Admin: 09/24/23 06:27 Dose: 2 drop Documented By: RYLEE Hydromorphone HCl (Dilaudid) 10 mg in 50 mls @ 0 mls/hr IV .Q0M [facility]; Protocol Lorazepam (Lorazepam 2 Mg/Ml Vial) 1 mg IVPUSH Q2H PRN PRN Reason: anxiety/restlessness Last Admin: 09/24/23 06:23 Dose: 1 mg Documented By: RYLEE Scopolamine (Scopolamine 1.5 Mg Patch.Td.3) 1.5 mg EAR-BEHIND Q72H [facility] Last Admin: 09/23/23 12:37 Dose: 1.5 mg Documented By: MARILIN Sodium Chloride (0.9 % Sodium Chloride Flush 3 Ml Syringe) 3 ml IVFLUSH QSHIFT [facility] Last Admin: 09/24/23 08:36 Dose: Not Given Documented By: ZARI Non-Admin Reason: IV Running Assessment and Plan (1) Comfort measures only status: Status: Acute Plan 82F PMH of ESRD on HD, CHF, HLD, OA, chronic hypoxc respiratory failure on 4L home o2 due to copd/ILD, recent diagnosis of vaginal invasive melanoma, depression presented with lethargy and hypoxia Acute metabolic encephalopathy, acute hypoxic respiratory failure likely combination of acute on chronic diatolic chf, esrd with fluid overload, decompensation of copd/ild comfort measures only max morphine not adequate, will change to continuous hydromorphone continue atropine, ativan, scopolamine monitor comfort level Quality Stroke Does the patient have a stroke diagnosis?: No VTE Prior VTE?: No VTE Risk Level:: Medical - moderate - high VTE Device Contraindication: Treatment Not Indicated VTE Drug Contraindication: Treatment Not Indicated
--- NOTE | 2023-09-24 11:20 | MHC.CM.PN ---
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 Family is at bedside. Emotional support and encouragement provided.
--- NOTE | 2023-09-24 12:56 | PC.NURSE ---
Upon arrival morphine EBD SPECIAL EDUCATION TEACHER maxed out running at 9.9mg/hr, Dr. Scott placed order to change to dilaudid EBD SPECIAL EDUCATION TEACHER. Dilaudid EBD SPECIAL EDUCATION TEACHER initiated at 1.9mg/hr which is max dose for dilaudid. Bag change done with RNs Zoë and Destiny at ~0930. Wasted 72.9 mg morphine with [facility] [place]. Pt appears comfortable on current med and rate. Family at bedside. Will cont to monitor.
--- NOTE | 2023-09-24 16:36 | PM.DDS ---
Discharge Sum: Prov Provider Primary care physician: Christina Paiz MD Discharge Sum: Diag Contributing Factors (1) Comfort measures only status: Discharge Sum: Summary Date and Time Date of admission: 09/23/23 12:30 Date of : 09/24/23 Time of : 16:30 Summary Details: from initial hpi: 82F PMH of ESRD on HD, CHF, HLD, OA, chronic hypoxc respiratory failure on 4L home o2 due to copd/ILD, recent diagnosis of vaginal incasive melanoma, depression presented with lethargy and hypoxia. patient has had frequent hospitalizations for chf, esrd with fluid overload, encephalopathy. was in ED 09/22/23 for n/v, went home and on day of presentation found by family to be lethargic, hypoxic (76% on room air), hypotensive to 80s. due to poor prognosis family decided to transition patient to comfort measures only. hospital course: Patient was admitted for acute metabolic encephalopathy, acute on chronic hypoxic respiratory failure likely combination of acute on chronic diastolic CHF in patient with end-stage renal disease with fluid overload and decompensation of COPD/LD. Due to poor prognosis patient was made comfort measures only. She was given opiate infusion, atropine, Ativan, scopolamine. Patient at 16:30 on 09/24/2019. Additional Data Attending physician: Evgeny Scott MD
--- NOTE | 2023-09-24 16:58 | PC.NURSE ---
Addendum entered by Jigna Krueger RN 09/24/23 17:52: Post mortem care done and [place] [facility] [place] Original Note: Pts family member called this RN to room to notify that she had . MD Scott at bedside and pt pronounded at 1630. MISHA called case# [id number], declined case.
== END 2023-09-24 17:44 | disposition expired | DRG 951 ==
LOC: HO.ED 11:36 → HO.EDOVER 12:34 → HO.S3 13:05
PROVIDERS: Admitting Provider Internal Medicine; Emergency Provider Emergency Medicine Emergency Medical Services; PCP Internal Medicine; Visit Provider Internal Medicine
DX: Z51.5 Encounter for palliative care (principal); N18.6 End stage renal disease; J96.21 Acute and chronic respiratory failure with hypoxia; G93.41 Metabolic encephalopathy; I50.33 Acute on chronic diastolic (congestive) heart failure; J44.1 Chronic obstructive pulmonary disease with (acute) exacerbation; E78.5 Hyperlipidemia, unspecified; Z99.2 Dependence on renal dialysis; Z66 Do not resuscitate; C51.9 Malignant neoplasm of vulva, unspecified; Z87.891 Personal history of nicotine dependence; Z99.81 Dependence on supplemental oxygen
CPT/HCPCS: 0241U; 36415; 71045; 74018; 74176; 80053; 82803; 82947; 83880; 84484; 85025; 85610; 87507; 93005; 94640; 96361; 96365; 99284; 99285; J1170; J2060; J2270; J3475

== ENCOUNTER → 2023-09-23 12:30 | Outpatient (BNV) | payer OTHER, SELFPAY | PROVIDERS: Admitting Provider Internal Medicine; Emergency Provider Emergency Medicine Emergency Medical Services; Visit Provider Internal Medicine | DX: J96.21 Acute and chronic respiratory failure with hypoxia (principal); G93.41 Metabolic encephalopathy; Z51.5 Encounter for palliative care | CPT/HCPCS: 99223; 99238 ==